=== PATIENT | male | born 1940 | race Caucasian/White ===

== ENCOUNTER 2017-09-13 19:03 | Inpatient (IN) | payer OTHER, MEDICARE, SELFPAY ==
[2017-09-13] VITALS (8 sets, daily range): BP systolic 134–173; BP diastolic 77–131; PULSE 76–98; RESP 16–30; TEMP 36.4–36.5; O2SAT 94–100; BMI 16.0; BMI 15.7
--- NOTE | 2017-09-13 19:11 | EKG12_ITS ---
Test Reason : Blood Pressure : / mmHG Vent. Rate : 092 BPM Atrial Rate : 076 BPM P-R Int : 000 ms QRS Dur : 084 ms QT Int : 420 ms P-R-T Axes : 000 -27 -60 degrees QTc Int : 519 ms Atrial fibrillation Low voltage QRS Nonspecific ST and T wave abnormality Prolonged QT Abnormal ECG Reconfirmed by EDER MARQUEZ, MAURA ([id number]), map editor NICKY JOLLEY ([id number]) on 09/18/2017 2:16:21 PM Referred By: Confirmed By:MAURA GAINES MD
--- NOTE | 2017-09-13 19:22 | CT_ITS ---
STUDY: CT ABDOMEN AND PELVIS WITH CONTRAST REASON FOR EXAM: Male, 77 years old. Epigastric pain RADIATION DOSAGE (If Supplied By Facility): CTDIvol = ( 21.52 ) mGy, DLP = ( 386.88 ) mGycm TECHNIQUE: Transaxial images were obtained from the dome of the diaphragm to the symphysis pubis without oral contrast. 75ML ml of Isovue 300 contrast was administered. Sagittal and coronal images were reconstructed. Individualized dose optimization techniques were used for this CT. COMPARISON: None FINDINGS: Emphysematous changes in the lung bases without acute findings. Small amount of scarring in the left lung base. The visualized portions of the heart are within normal limits. There is decreased attenuation of the liver consistent with steatosis. Normal gallbladder and extrahepatic biliary system. There is moderate splenomegaly. Somewhat heterogeneous enhancement pattern of the spleen however, likely due to arterial phase exam. Normal pancreas. Normal bilateral adrenal glands. Normal right kidney. Normal left kidney. There is a small hiatal hernia. Scattered fluid-filled loops of small bowel with scattered air-fluid levels. No abnormal dilation. There are multiple colonic diverticula consistent with diverticulosis. The appendix is visualized and appears normal. There is diffuse atherosclerotic calcification of the abdominal aorta, without a demonstrated aneurysm. Normal inferior vena cava. Normal retroperitoneum. Normal urinary bladder. There is enlargement of the prostate gland. Normal abdominal wall. There are diffuse degenerative changes of the visualized lumbar spine. CT/Abdomen/Pelvis W IV Cont ONLY IMPRESSION: 1. Nonspecific bowel gas pattern with scattered fluid filled loops of small bowel with scattered air-fluid levels however, no dilation. Gaseous distended loops of colon with fecal retention. Normal appendix. Findings could be related to enteritis/early ileus. 2. Mild to moderate splenomegaly. Electronically Signed: Papi Gleason DO at 21:09 EDT Tel , Service support ,
[2017-09-13 19:33] LABS: International Normalized Ratio 1.3; Prothrombin Time (Protime)PT. 16.6 SECONDS (11.7-14.9)
[2017-09-13 19:35] LABS: Hematocrit 44.1 % (40-54); Hemoglobin 12.9 g/dl (13.0-16.5); Mean Corp Hgb Conc 29.3 g/gl (32-36); Mean Corpuscular Hgb 17.5 pg (27.0-32.0); Mean Corpuscular Volume 59.8 fL (80-94); Mean Platelet Vol. 9.1 fl (6.2-12.0); RBC Distribution Width SD 41.4 fl (35.1-43.9)
[2017-09-13 19:42] LABS: AST(SGOT) 18 U/L (15-37); Alanine Aminotransfer ALT/SGPT 20 U/L (16-61); Albumin, Serum 3.4 g/dL (3.2-5.0); Alkaline Phosphatase 130 U/L (45-117); Anion Gap 11 (5-15); BUN 36 mg/dL (7-18); BUN/Creat Ratio 23.1 RATIO (10-20); Bilirubin, Direct 0.16 mg/dL (0.00-0.30); Calcium,Total 9.7 mg/dL (8.5-10.1); Chloride 102 mmol/L (98-107); Creatinine, Serum 1.56 mg/dL (0.70-1.30); EST Glomerular Filtration Rate 46 mL/min (>60); Est Glom Filt Rate - Afr Amer 56 mL/min (>60); Estimated Creatinine Clearance 29.26 ml/min; Globulin 3.8 g/dL (2.2-4.2); Glucose 200 mg/dL (74-106); Lipase 360 U/L (73-393); Potassium 3.3 mmol/L (3.5-5.1); Protein, Total 7.2 g/dL (6.4-8.2); Sodium Level 139 mmol/L (136-145)
[2017-09-13] MEDS: Ondansetron 4 MG/2 ML Vial IV (19:48)
[2017-09-13] MEDS: morphine 8 MG/ML Syringe 6 MG IV (19:49)
[2017-09-13 20:03] LABS: Eosinophil 1 % (0-5); Lymphocyte 10 % (19-41); Monocyte 2 % (0-10); Neutrophil-Band 1 % (0-5); Neutrophil-Segmented 86 % (47-70); Total Cells Counted 100 (MANUAL DIFF)
[2017-09-13 20:04] LABS: Red Blood Count 7.37 M/mm3 (4.6-6.2)
[2017-09-13 20:05] LABS: Differential Indicated MANUAL DIFF; POSITIVE COUNT YES; POSITIVE DIFFERENTIAL YES; POSITIVE MORPHOLOGY YES
[2017-09-13 20:09] LABS: Absolute Lymphocyte Count 3.63 X10^3/ul (0.83-4.51); Absolute Neutrophil Count 31.6 X10^3/uL (2.0-7.7); Anisocytosis 1+; Platelet Estimate MKD INC (ADEQ)
[2017-09-13 20:10] LABS: Microcytosis 1+
[2017-09-13 20:13] LABS: Platelet Count 1938 K/mm3 (150-450); White Blood Count 36.3 K/mm3 (4.4-11.0)
--- NOTE | 2017-09-13 20:22 | RAD_ITS ---
XR Chest 1 View INDICATION: CHEST PAIN, ABD PAIN ALSO COMPARISON: CT November 15, 2016 TECHNIQUE: Portable chest FINDINGS: The heart size and pulmonary vascularity are within normal limits. The lungs are hyperinflated with coarsened interstitial markings. Reactive cysts are seen in the bilateral perihilar regions and lower lobes. There is evidence of a focal airspace opacity in the right mid lung field. No evidence of pleural effusion. RAD/Chest 1 View (Portable) IMPRESSION: COPD/emphysema with bronchiectasis. Findings concerning for developing infiltrate or mass in the right midlung field. Consider short-term follow-up or further evaluation with CT. at 2159 Reported and signed by: Cinthya Beck MD Electronically Signed: Cinthya Beck MD at 21:53 EDT Tel , Service support ,
--- NOTE | 2017-09-13 22:26 | PCM.HP.STD ---
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 The patient is a 77 year old M who was in his normal state of health up until today when he had intense epigastric abdominal pain is spread across the upper portions of his abdomen. Patient had some nausea but no vomiting. Patient states that this similar to when he had an issue with peptic ulcers 50 years ago. At that time, patient had hematemesis and bleeding. Patient did require an aggressive abdominal surgery. In the emergency room, he had a CAT scan that showed nonspecific bowel gas pattern with scattered fluid-filled loops of small bowel with scattered air-fluid levels. No dilation. Could be related with enteritis/early ileus. Also noted mild to moderate splenomegaly. In the emergency room, patient received aspirin, morphine and Zofran. He is still having of the abdominal pain. 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) Allergies No Known Allergies Allergy (Verified 09/13/17 19:09) Home Medications: Ambulatory Orders Medication Instructions Recorded Albuterol Inhaler [Ventolin Hfa] 1 - 2 puff INHALATION Q4H PRN PRN 01/02/14 Tiotropium [place] [Spiriva 18 MCG] 1 puff INHALATION DAILY 01/02/14 Albuterol Aerosols [Ventolin 2.5 mg INHALATION Q2H PRN PRN #1 11/17/16 Aerosols] box Ipratropium/Albuterol Sulfate 3 ml INHALATION [id number] #1 box 11/17/16 [Duoneb] Nebulizer [Lc Plus] 1 ea MC UD #1 ea 11/17/16 tiotropium 2.5 mcg-olodaterol 2.5 2 inh INHALATION QDAY #4 g 08/14/17 mcg/actuation mist for inhalation Doxycycline 100 mg PO DAILY 09/13/17 Surgical History: - - dysplasia of tongue, ulcer surgery with some removal of stomach? vocal cord lesion. Psychiatric History: No pertinent psych hx Smoking Status: Former smoker Alcohol: None Drugs: None - *Family History Maternal History Items: No pertinent history, - - No cancer Paternal History Items: No pertinent history Review of Systems Constitutional: Reports: Anorexia. Denies: Chills, Fever Eyes: Denies: Blurred vision, Double vision HEENT: Denies: Head Aches, Sinus Congestion, Sinus Drainage Cardiovascular: Denies: Chest Pain, Palpitations Respiratory: Denies: Cough, Shortness of breath at rest, Sputum production Gastrointestinal: Reports: Abdominal Pain, Nausea. Denies: Diarrhea, Vomiting Genitourinary: Denies: Dysuria Musculoskeletal: Denies: Joint Pain, Joint Tenderness Skin: Denies: Rash, Wounds Neurological: Denies: Numbness, Tingling, Focal weakness Psychiatric: Denies: Anxiety, Depression Hematologic/ Lymphatic: Denies: Easy Bruising, Easy Bleeding, Hx of blood clot VTE Information - Inpt Only VTE Present on Admission: No VTE Pharm Prophylaxis ordered?: Yes Patient Problems: Active and Suspected Problems (Last Reviewed 05/03/17 @ 09:16 by Carmen Graham) Enteritis (Acute) Ileus (Acute) Leukocytosis (Acute) JULIANA (acute kidney injury) (Acute) - Physical Exam General: Alert, Cooperative, No apparent distress, - - Cachectic. HEENT: Atraumatic, Normocephalic Oral: Moist Mucosa, No Gingival or Mucosal Lesions/ Ulcerations Neck: No Nodes, Thyroid Normal Size and Texture Lungs: Clear to auscultation, Normal air movement, No rhonchi, No wheeze Cardiovascular: Regular rate, Regular Rhythm, Normal S1, Normal S2 Abdomen: Bowel Sounds Present, Soft, Non-Distended, Tender - Epi gastric Extremities: No edema, No Calf Tenderness Skin: No rashes, No breakdown Musculoskeletal: No Tenderness to Palpation of Joints or Extremities, Cachexia, Muscle Wasting Neurological: Deep Tendon Reflexes 2+/4 and Symmetrical, Sensory exam intact to light touch and pain, - - No clonus Psych/Mental Status: Normal Affect, Appropriate Vital Signs Temp Pulse Resp BP Pulse Ox 36.4 C L 94 18 146/82 H 96 09/13/17 19:05 09/13/17 22:18 09/13/17 22:18 09/13/17 22:18 09/13/17 22:18 Oxygen Flow Rate (L/min) 2 Oxygen Delivery Method Nasal Cannula Weight: 52.163 kg Body Mass Index (BMI) 16.0 Laboratory Tests Past 24 Hrs 09/13/17 09/13/17 09/13/17 19:15 19:15 19:15 WBC 36.3 H* RBC 7.37 H Hgb 12.9 L Hct 44.1 MCV 59.8 L MCH 17.5 L MCHC 29.3 L RDW 21.0 H RDW Differential 41.4 Plt Count 1938 H* MPV 9.1 Neut % (Auto) Not Reportable Absolute Neuts (auto) 31.6 H Absolute Lymphs (auto) 3.63 Total Counted 100 Neutrophils % (Manual) 86 H Band Neutrophils % 1 Lymphocytes % (Manual) 10 L Monocytes % (Manual) 2 Eosinophils % (Manual) 1 Diff Path Review May foll Platelet Estimate MKD INC Anisocytosis 1+ Microcytosis 1+ PT 16.6 H INR 1.3 Sodium Potassium Chloride Carbon Dioxide Anion Gap BUN Creatinine Estim Creat Clear Calc Est GFR (MDRD) Af Amer Est GFR (MDRD) Non-Af BUN/Creatinine Ratio Glucose Calcium Total Bilirubin 0.60 Direct Bilirubin 0.16 AST 18 ALT 20 Alkaline Phosphatase 130 H Troponin I Total Protein 7.2 Albumin 3.4 Globulin 3.8 Lipase 09/13/17 19:15 WBC RBC Hgb Hct MCV MCH MCHC RDW RDW Differential Plt Count MPV Neut % (Auto) Absolute Neuts (auto) Absolute Lymphs (auto) Total Counted Neutrophils % (Manual) Band Neutrophils % Lymphocytes % (Manual) Monocytes % (Manual) Eosinophils % (Manual) Diff Path Review Platelet Estimate Anisocytosis Microcytosis PT INR Sodium 139 Potassium 3.3 L Chloride 102 Carbon Dioxide 26.0 Anion Gap 11 BUN 36 H Creatinine 1.56 H Estim Creat Clear Calc 29.26 Est GFR (MDRD) Af Amer 56 L Est GFR (MDRD) Non-Af 46 L BUN/Creatinine Ratio 23.1 H Glucose 200 H Calcium 9.7 Total Bilirubin Direct Bilirubin AST ALT Alkaline Phosphatase Troponin I < 0.015 Total Protein Albumin Globulin Lipase 360 Clinical Impression(s) from Imaging Studies Abdomen/Pelvis CT 09/13/17 19:22 IMPRESSION: 1. Nonspecific bowel gas pattern with scattered fluid filled loops of small bowel with scattered air-fluid levels however, no dilation. Gaseous distended loops of colon with fecal retention. Normal appendix. Findings could be related to enteritis/early ileus. 2. Mild to moderate splenomegaly. Electronically Signed: Papi Gleason DO at 21:09 EDT Tel , Service support , Chest X-Ray 09/13/17 20:22 IMPRESSION: COPD/emphysema with bronchiectasis. Findings concerning for developing infiltrate or mass in the right midlung field. Consider short-term follow-up or further evaluation with CT. at 2155 Reported and signed by: Cinthya Beck MD Electronically Signed: Cinthya Beck MD at 21:53 EDT Tel , Service support , Assessment/Plan Active and Suspected Problems (Last Reviewed 05/03/17 @ 09:16 by Carmen Graham) Enteritis (Acute) Ileus (Acute) Leukocytosis (Acute) JULIANA (acute kidney injury) (Acute) 1. Acute enteritis This is suspected given the findings on the CAT scan. A possible this could be just related with an ileus, versus small bowel obstruction, versus mesenteric ischemia. Will put the patient on empiric antibiotics with ciprofloxacin and Flagyl. Follow-up abdominal x-ray in the morning Patient be n.p.o. with exception of sips and chips for now. No acute surgical needs at this time I will check a lactic acid to see if there is any evidence of ischemic colitis causing the symptoms. Patient states that his symptoms are similar to 50 years ago when he had an ulcer. Given the findings on the CAT scan I do not suspect that his has recurrence of his ulcers causing these findings. 2. Leukocytosis May be reactive However, it was elevated in 2017 at 16,000 and is now 36,000. Additionally patient has thrombocytosis and also noted splenomegaly. Continue to follow-up his counts Lesser acute issues then patient should likely follow up with hematology as outpatient Other considerations could be an acute leukemia or chronic leukemia for that matter. 3. Acute kidney injury May be prerenal. Creatinine today is 1.56. Creatinine from 2017 was 1.02 IV fluids and reevaluate 4. COPD Not an exacerbation Continue with home medications 5. DVT prophylaxis with Lovenox 6. Advanced care planning: Patient wishes to be full code and is okay with having endotracheal intubation and PEG tube if necessary. Code Visit Inpatient E&M: 31458 Init Hosp L3
[2017-09-13] MEDS: Morphine 4 MG/ML Syringe IV (22:35)
[2017-09-13] MEDS: 0.9% Normal Saline 1,000 ML 999 ML IV (22:35)
--- NOTE | 2017-09-13 22:35 | HP.PCM_ITS ---
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 The patient is a 77 year old M who was in his normal state of health up until today when he had intense epigastric abdominal pain is spread across the upper portions of his abdomen. Patient had some nausea but no vomiting. Patient states that this similar to when he had an issue with peptic ulcers 50 years ago. At that time, patient had hematemesis and bleeding. Patient did require an aggressive abdominal surgery. In the emergency room, he had a CAT scan that showed nonspecific bowel gas pattern with scattered fluid-filled loops of small bowel with scattered air-fluid levels. No dilation. Could be related with enteritis/early ileus. Also noted mild to moderate splenomegaly. In the emergency room, patient received aspirin, morphine and Zofran. He is still having of the abdominal pain. 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) Allergies No Known Allergies Allergy (Verified 09/13/17 19:09) Home Medications: Ambulatory Orders Medication Instructions Recorded Albuterol Inhaler [Ventolin Hfa] 1 - 2 puff INHALATION Q4H PRN PRN 01/02/14 Tiotropium [place] [Spiriva 18 MCG] 1 puff INHALATION DAILY 01/02/14 Albuterol Aerosols [Ventolin 2.5 mg INHALATION Q2H PRN PRN #1 11/17/16 Aerosols] box Ipratropium/Albuterol Sulfate 3 ml INHALATION [id number] #1 box 11/17/16 [Duoneb] Nebulizer [Lc Plus] 1 ea MC UD #1 ea 11/17/16 tiotropium 2.5 mcg-olodaterol 2.5 2 inh INHALATION QDAY #4 g 08/14/17 mcg/actuation mist for inhalation Doxycycline 100 mg PO DAILY 09/13/17 Surgical History: - - dysplasia of tongue, ulcer surgery with some removal of stomach? vocal cord lesion. Psychiatric History: No pertinent psych hx Smoking Status: Former smoker Alcohol: None Drugs: None - *Family History Maternal History Items: No pertinent history, - - No cancer Paternal History Items: No pertinent history Review of Systems Constitutional: Reports: Anorexia. Denies: Chills, Fever Eyes: Denies: Blurred vision, Double vision HEENT: Denies: Head Aches, Sinus Congestion, Sinus Drainage Cardiovascular: Denies: Chest Pain, Palpitations Respiratory: Denies: Cough, Shortness of breath at rest, Sputum production Gastrointestinal: Reports: Abdominal Pain, Nausea. Denies: Diarrhea, Vomiting Genitourinary: Denies: Dysuria Musculoskeletal: Denies: Joint Pain, Joint Tenderness Skin: Denies: Rash, Wounds Neurological: Denies: Numbness, Tingling, Focal weakness Psychiatric: Denies: Anxiety, Depression Hematologic/ Lymphatic: Denies: Easy Bruising, Easy Bleeding, Hx of blood clot VTE Information - Inpt Only VTE Present on Admission: No VTE Pharm Prophylaxis ordered?: Yes Patient Problems: Active and Suspected Problems (Last Reviewed 05/03/17 @ 09:16 by Carmen Graham ) Enteritis (Acute) Ileus (Acute) Leukocytosis (Acute) JULIANA (acute kidney injury) (Acute) - Physical Exam General: Alert, Cooperative, No apparent distress, - - Cachectic. HEENT: Atraumatic, Normocephalic Oral: Moist Mucosa, No Gingival or Mucosal Lesions/ Ulcerations Neck: No Nodes, Thyroid Normal Size and Texture Lungs: Clear to auscultation, Normal air movement, No rhonchi, No wheeze Cardiovascular: Regular rate, Regular Rhythm, Normal S1, Normal S2 Abdomen: Bowel Sounds Present, Soft, Non-Distended, Tender - Epi gastric Extremities: No edema, No Calf Tenderness Skin: No rashes, No breakdown Musculoskeletal: No Tenderness to Palpation of Joints or Extremities, Cachexia, Muscle Wasting Neurological: Deep Tendon Reflexes 2+/4 and Symmetrical, Sensory exam intact to light touch and pain, - - No clonus Psych/Mental Status: Normal Affect, Appropriate Vital Signs Temp Pulse Resp BP Pulse Ox 36.4 C L 94 18 146/82 H 96 09/13/17 19:05 09/13/17 22:18 09/13/17 22:18 09/13/17 22:18 09/13/17 22:18 Oxygen Flow Rate (L/min) 2 Oxygen Delivery Method Nasal Cannula Weight: 52.163 kg Body Mass Index (BMI) 16.0 Laboratory Tests Past 24 Hrs 09/13/17 09/13/17 09/13/17 19:15 19:15 19:15 WBC 36.3 H* RBC 7.37 H Hgb 12.9 L Hct 44.1 MCV 59.8 L MCH 17.5 L MCHC 29.3 L RDW 21.0 H RDW Differential 41.4 Plt Count 1938 H* MPV 9.1 Neut % (Auto) Not Reportable Absolute Neuts (auto) 31.6 H Absolute Lymphs (auto) 3.63 Total Counted 100 Neutrophils % (Manual) 86 H Band Neutrophils % 1 Lymphocytes % (Manual) 10 L Monocytes % (Manual) 2 Eosinophils % (Manual) 1 Diff Path Review May foll Platelet Estimate MKD INC Anisocytosis 1+ Microcytosis 1+ PT 16.6 H INR 1.3 Sodium Potassium Chloride Carbon Dioxide Anion Gap BUN Creatinine Estim Creat Clear Calc Est GFR (MDRD) Af Amer Est GFR (MDRD) Non-Af BUN/Creatinine Ratio Glucose Calcium Total Bilirubin 0.60 Direct Bilirubin 0.16 AST 18 ALT 20 Alkaline Phosphatase 130 H Troponin I Total Protein 7.2 Albumin 3.4 Globulin 3.8 Lipase 09/13/17 19:15 WBC RBC Hgb Hct MCV MCH MCHC RDW RDW Differential Plt Count MPV Neut % (Auto) Absolute Neuts (auto) Absolute Lymphs (auto) Total Counted Neutrophils % (Manual) Band Neutrophils % Lymphocytes % (Manual) Monocytes % (Manual) Eosinophils % (Manual) Diff Path Review Platelet Estimate Anisocytosis Microcytosis PT INR Sodium 139 Potassium 3.3 L Chloride 102 Carbon Dioxide 26.0 Anion Gap 11 BUN 36 H Creatinine 1.56 H Estim Creat Clear Calc 29.26 Est GFR (MDRD) Af Amer 56 L Est GFR (MDRD) Non-Af 46 L BUN/Creatinine Ratio 23.1 H Glucose 200 H Calcium 9.7 Total Bilirubin Direct Bilirubin AST ALT Alkaline Phosphatase Troponin I < 0.015 Total Protein Albumin Globulin Lipase 360 Clinical Impression(s) from Imaging Studies Abdomen/Pelvis CT 09/13/17 19:22 IMPRESSION: 1. Nonspecific bowel gas pattern with scattered fluid filled loops of small bowel with scattered air-fluid levels however, no dilation. Gaseous distended loops of colon with fecal retention. Normal appendix. Findings could be related to enteritis/early ileus. 2. Mild to moderate splenomegaly. Electronically Signed: Papi Gleason DO at 21:09 EDT Tel , Service support , Chest X-Ray 09/13/17 20:22 IMPRESSION: COPD/emphysema with bronchiectasis. Findings concerning for developing infiltrate or mass in the right midlung field. Consider short-term follow-up or further evaluation with CT. at 2155 Reported and signed by: Cinthya Beck MD Electronically Signed: Cinthya Beck MD at 21:53 EDT Tel , Service support , Assessment/Plan Active and Suspected Problems (Last Reviewed 05/03/17 @ 09:16 by Carmen Graham ) Enteritis (Acute) Ileus (Acute) Leukocytosis (Acute) JULIANA (acute kidney injury) (Acute) 1. Acute enteritis * This is suspected given the findings on the CAT scan. * A possible this could be just related with an ileus, versus small bowel obstruction, versus mesenteric ischemia. * Will put the patient on empiric antibiotics with ciprofloxacin and Flagyl. * Follow-up abdominal x-ray in the morning * Patient be n.p.o. with exception of sips and chips for now. * No acute surgical needs at this time * I will check a lactic acid to see if there is any evidence of ischemic colitis causing the symptoms. * Patient states that his symptoms are similar to 50 years ago when he had an ulcer. Given the findings on the CAT scan I do not suspect that his has recurrence of his ulcers causing these findings. 2. Leukocytosis * May be reactive * However, it was elevated in 2017 at 16,000 and is now 36,000. Additionally patient has thrombocytosis and also noted splenomegaly. * Continue to follow-up his counts * Lesser acute issues then patient should likely follow up with hematology as outpatient * Other considerations could be an acute leukemia or chronic leukemia for that matter. 3. Acute kidney injury * May be prerenal. Creatinine today is 1.56. Creatinine from 2017 was 1.02 * IV fluids and reevaluate 4. COPD * Not an exacerbation * Continue with home medications 5. DVT prophylaxis with Lovenox 6. Advanced care planning: Patient wishes to be full code and is okay with having endotracheal intubation and PEG tube if necessary. Code Visit Inpatient E&M: 12029 Init Hosp L3
--- NOTE | 2017-09-13 22:52 | ED.VISSUMM ---
- ER Visit Summary Date of Service: 09/13/17 Chief Complaint: Epigastric abdominal pain. History of Present Illness: The patient is a 77 M complaining of epigastric abdominal pain. Patient states that that was gradual in onset with associated nausea vomiting. Denies any fever. Does not recall chest pain. Since in the epigastric region. Does not radiate to his back. No melena. Today. No prior history. Physical Examination: Older male complaining of pain vital signs are stable afebrile. Pulse ox are percent on 2 L no hypoxia. Initial blood pressure is elevated at 170/131. I think it is secondary to pain and may be untreated hypertension. H EENT exam unremarkable. Neck nontender no lymphadenopathy. Lungs clear to auscultation bilaterally. Heart irregularly irregular rate in 90s no murmur. Abdomen is soft nondistended normal bowel sounds without peritoneal signs. He does have epigastric tenderness. I do not feel any rebound, guarding or rigidity. I do not feel any pulsatile mass. He is equal symmetrical femoral pulses. There are no hernias or signs of obstruction. He is moving all 4 extremities. Cellulitis and neurovascular intact. Without edema. Back exam nontender. Neurologically is awake and alert without focal motor deficits. Test Results: EKG shows A. fib rate of 92. Chest x-ray shows no acute abnormality. White count is elevated at 36,000 previously he had elevated white counts between 16 and 21,000. H&H 12 and 34. Is severely elevated platelets. His electrolytes are unremarkable other than potassium 3.3. His creatinine is elevated 1.56. Liver enzymes are unremarkable except for alk phos of 130. Lipase is normal. Troponins normal. Patient did undergo a CT of the abdomen pelvis with IV contrast which showed splenomegaly. Nonspecific bowel gas pattern and a normal appendix. There is no perforation. No abdominal aneurysm or bleeding. Emergency Department Course and Treatment: Patient is doing much better is been treated with morphine and Zofran on multiple repeat exam he looks better. I discussed all test results with both he and his . Treatment Plan: Patient will be admitted by the hospitalist for further evaluation and workup of his leukocytosis, abdominal pain and a atrial fibrillation. Disposition: Admission Impression: Acute abdominal pain of uncertain etiology. Leukocytosis of uncertain etiology and elevated platelet count. Mild renal insufficiency This note was generated with [employer] software. It may contain incorrect words, spelling, and punctuation that were not noted in review of the chart prior to signing ED Disposition - Plan for ED Patient: Chief Complaint: Abd Pain
[2017-09-14] VITALS (18 sets, daily range): BP systolic 92–118; BP diastolic 50–70; PULSE 81–94; RESP 16–28; TEMP 36.1–36.6; O2SAT 89–97
[2017-09-14 00:11] LABS: Lactic Acid 0.7 mmol/L (0.4-2.0)
[2017-09-14] MEDS: Ipratropium/Albuterol Sulfate 3 ML AMPUL.NEB INHALATION ×3 (01:04→12:46)
[2017-09-14] MEDS: Ciprofloxacin 200 MG/100 ML BAG 100 MG IV ×3 (01:27→22:32)
--- NOTE | 2017-09-14 05:55 | RAD_ITS ---
STUDY: X-RAY - ABDOMEN/PELVIS REASON FOR EXAM: Male, 77 years old. Pain TECHNIQUE: AP supine and upright views of the abdomen and pelvis. Decubitus views also obtained. COMPARISON: CT 09/13/2017 FINDINGS: Normal visualized lung bases. Upper abdominal clips. There is an unremarkable bowel gas pattern. There is no demonstrated free abdominal air. Residual contrast in the bladder. The visualized liver, spleen and kidneys are grossly normal in size and morphology. Normal soft tissue structures. Normal visualized osseous structures. RAD/Abd Decub and/or Erect(Portabl IMPRESSION: Normal bowel gas pattern. No free air is detected. Electronically Signed: Dawit Mason MD at 5:54 EDT Tel , Service support ,
[2017-09-14 06:13] LABS: Absolute Lymphocyte Count 1.29 X10^3/ul (0.83-4.51); Absolute Neutrophil Count 15.7 X10^3/uL (2.0-7.7); Basophil# 0.63 X10^3/uL; Basophil% 3.3 % (0-1); Eosinophil# 0.34 X10^3/uL; Eosinophils% 1.8 % (0-5); Hemoglobin 10.5 g/dl (13.0-16.5); Lymphocyte # 1.29 X10^3/ul (4.0); Lymphocyte % 6.8 % (19-41); Mean Corp Hgb Conc 28.4 g/gl (32-36); Mean Corpuscular Hgb 17.3 pg (27.0-32.0); Monocyte# 0.94 X10^3/uL; Monocyte% 4.9 % (0-10); Neutrophil # 15.66 X10^3/uL (2.7-7.7); Neutrophil % 81.9 % (47-70); RBC Distribution Width CV 20.4 % (11.6-14.6); RBC Distribution Width SD 42.5 fl (35.1-43.9); Red Blood Count 6.07 M/mm3 (4.6-6.2); White Blood Count 19.1 K/mm3 (4.4-11.0)
[2017-09-14 06:14] LABS: Anion Gap 9 (5-15); BUN 29 mg/dL (7-18); BUN/Creat Ratio 26.9 RATIO (10-20); Calcium,Total 8.1 mg/dL (8.5-10.1); Chloride 109 mmol/L (98-107); Creatinine, Serum 1.08 mg/dL (0.70-1.30); EST Glomerular Filtration Rate 70 mL/min (>60); Est Glom Filt Rate - Afr Amer 85 mL/min (>60); Glucose 86 mg/dL (74-106); Magnesium 2.1 mg/dL (1.6-2.6); Potassium 3.6 mmol/L (3.5-5.1); Sodium Level 143 mmol/L (136-145)
[2017-09-14 06:42] LABS: Differential Indicated SCAN CRITERIA MET; POSITIVE COUNT YES; POSITIVE DIFFERENTIAL YES; POSITIVE MORPHOLOGY YES; Platelet Count 1164 K/mm3 (150-450)
[2017-09-14 06:43] LABS: Anisocytosis 1+; Differential Comment SCAN; Hypochromasia 1+; Microcytosis 1+; Platelet Estimate MKD INC (ADEQ); Platelet Morphology GIANT; Polychromasia 1+
[2017-09-14 11:27] LABS: Ferritin 15 ng/mL (26-388); Iron 14 ug/dL (65-175); Iron Binding Capacity,Total 269 ug/dL (250-450); PERCENT IRON SATURATION 5.2 % (15.0-55.0)
[2017-09-14] MEDS: Enoxaparin 30 MG/0.3 ML Syringe SC (11:46)
--- NOTE | 2017-09-14 11:58 | CASEMGMT ---
RN MARCELINO Face to Face with patient for initial transition planning/care coordination assessment. RN CM introduced self and role at [facility]. Patient lying in bed, alert and oriented. Patient willing to participate in assessment and is able to answer all questions appropriately. Care providers, pharmacy, and demographics verified. See link attached. Patient wishes to discharge home, denies need for home health at this time. Patient states he has no further needs or concerns at this time. CM to follow for discharge planning needs that may arise. Disposition Plan: Patient to discharge home with family support and follow-up plans in place.
[2017-09-14 12:15] LABS: Pathologist Review Reviewed
[2017-09-14 12:16] LABS: Pathologist Review Reviewed
--- NOTE | 2017-09-14 12:59 | PCM.PROGNOTE ---
<Manuel Damon - Last Filed: 09/14/17 12:59> Patient Problems: Active and Suspected Problems (Last Reviewed 05/03/17 @ 09:16 by Carmen Graham) Enteritis (Acute) Ileus (Acute) Leukocytosis (Acute) JULIANA (acute kidney injury) (Acute) Subjective: Pt feels significantly improved this AM. No BM yet, last BM was yesterday, somewhat loose. He has no further abdominal pain or nausea. He wants to eat. He has had flatus this AM. He has only had ice chips since admission. - Physical Exam General: Alert, Oriented x3, Cooperative HEENT: Atraumatic, PERRLA, EOMI, Normocephalic Neck: Supple, No JVD, Negative Carotid Bruits Lungs: Clear to auscultation, Normal air movement Cardiovascular: Regular rate, No murmurs Abdomen: Bowel Sounds Present, Soft, Non Tender Extremities: No edema, Capillary Refill Less than 3 Seconds Skin: No rashes, No breakdown Musculoskeletal: No Tenderness to Palpation of Joints or Extremities Neurological: Cranial nerves II-XII grossly intact Psych/Mental Status: Normal Affect, Appropriate, Alert and oriented to time, place, person, mood and affect Vital Signs Temp Pulse Resp BP Pulse Ox 97.5 F L 81 16 111/62 95 09/14/17 08:26 09/14/17 08:26 09/14/17 08:26 09/14/17 08:26 09/14/17 08:30 Oxygen Flow Rate (L/min) 2 Oxygen Delivery Method Nasal Cannula Weight: 51.1 kg Body Mass Index (BMI) 15.7 Intake and Output for Last 24 Hours 09/12/17 09/13/17 09/14/17 23:59 23:59 23:59 Intake Total 1580 / 1580 Balance 1580 / 1580 Laboratory Tests Past 24 Hrs 09/13/17 09/14/17 09/14/17 23:31 05:12 05:12 WBC 19.1 H RBC 6.07 Hgb 10.5 L Hct 37.0 L MCV 61.0 L MCH 17.3 L MCHC 28.4 L RDW 20.4 H RDW Differential 42.5 Plt Count 1164 H* MPV 9.0 Immature Gran % (Auto) 1.300 H Neut % (Auto) 81.9 H Lymph % (Auto) 6.8 L [place] % (Auto) 4.9 Eos % (Auto) 1.8 Baso % (Auto) 3.3 H Absolute Neuts (auto) 15.7 H Absolute Lymphs (auto) 1.29 Total Counted Not Reportable Differential Comment SCAN Diff Path Review Reviewed Platelet Estimate MKD INC Plt Morphology Comment GIANT Polychromasia 1+ Hypochromasia 1+ Anisocytosis 1+ Microcytosis 1+ Sodium 143 Potassium 3.6 Chloride 109 H Carbon Dioxide 25.0 Anion Gap 9 BUN 29 H Creatinine 1.08 Estim Creat Clear Calc 41.40 Est GFR (MDRD) Af Amer 85 Est GFR (MDRD) Non-Af 70 BUN/Creatinine Ratio 26.9 H Glucose 86 Lactic Acid 0.7 Calcium 8.1 L Magnesium 2.1 Iron TIBC Iron Saturation Ferritin 09/14/17 05:12 WBC RBC Hgb Hct MCV MCH MCHC RDW RDW Differential Plt Count MPV Immature Gran % (Auto) Neut % (Auto) Lymph % (Auto) [place] % (Auto) Eos % (Auto) Baso % (Auto) Absolute Neuts (auto) Absolute Lymphs (auto) Total Counted Differential Comment Diff Path Review Platelet Estimate Plt Morphology Comment Polychromasia Hypochromasia Anisocytosis Microcytosis Sodium Potassium Chloride Carbon Dioxide Anion Gap BUN Creatinine Estim Creat Clear Calc Est GFR (MDRD) Af Amer Est GFR (MDRD) Non-Af BUN/Creatinine Ratio Glucose Lactic Acid Calcium Magnesium Iron 14 L TIBC 269 Iron Saturation 5.2 L Ferritin 15 L Medical Necessity - Tobacco Use Smoking Status: Former smoker Assessment/Plan Active and Suspected Problems (Last Reviewed 05/03/17 @ 09:16 by Carmen Graham) Enteritis (Acute) Ileus (Acute) Leukocytosis (Acute) JULIANA (acute kidney injury) (Acute) 1. Acute enteritis vs ileus. Improved. Advance diet cautiously. Last BM yesterday, somewhat loose. Recently recovering from flu involving heavy nausea and vomiting last week. Suspect viral gastroenteritis. On cipro/flagyl. Abdominal xr negative today. CT abdomen at admission with scattered fluid filled loods, scattered air fluid levels with no dilatation, gaseous distended loops with fecal retention, enteritis vs ileus. Mild to mod. splenomegaly. 2. Leukocytosis 2/2 above - improved. Afebrile. 3. JULIANA - resolved. 4. COPD stable no exacerbation 5. Iron def. anemia - Low iron/tibc/ferritin. replete. IV venofer x 1 and start oral iron. 6. Thrombocytosis - improved. unclear etiology DVT ppx: lovenox DC planning: Home tomorrow if he continues to improve This patient was seen by Manuel Damon PA-C under the supervision of Doctor Sriram. <Sriram,[place] - Last Filed: 09/14/17 15:07> - Physical Exam Vital Signs Temp Pulse Resp BP Pulse Ox 97.7 F L 87 18 92/50 L 95 09/14/17 14:25 09/14/17 14:25 09/14/17 14:25 09/14/17 14:25 09/14/17 14:25 Oxygen Flow Rate (L/min) 2 Oxygen Delivery Method Nasal Cannula Weight: 51.1 kg Body Mass Index (BMI) 15.7 Intake and Output for Last 24 Hours 09/12/17 09/13/17 09/14/17 23:59 23:59 23:59 Intake Total 2811 / 2811 Balance 2811 / 2811 Laboratory Tests Past 24 Hrs 09/13/17 09/14/17 09/14/17 23:31 05:12 05:12 WBC 19.1 H RBC 6.07 Hgb 10.5 L Hct 37.0 L MCV 61.0 L MCH 17.3 L MCHC 28.4 L RDW 20.4 H RDW Differential 42.5 Plt Count 1164 H* MPV 9.0 Immature Gran % (Auto) 1.300 H Neut % (Auto) 81.9 H Lymph % (Auto) 6.8 L [place] % (Auto) 4.9 Eos % (Auto) 1.8 Baso % (Auto) 3.3 H Absolute Neuts (auto) 15.7 H Absolute Lymphs (auto) 1.29 Total Counted Not Reportable Differential Comment SCAN Diff Path Review Reviewed Platelet Estimate MKD INC Plt Morphology Comment GIANT Polychromasia 1+ Hypochromasia 1+ Anisocytosis 1+ Microcytosis 1+ Sodium 143 Potassium 3.6 Chloride 109 H Carbon Dioxide 25.0 Anion Gap 9 BUN 29 H Creatinine 1.08 Estim Creat Clear Calc 41.40 Est GFR (MDRD) Af Amer 85 Est GFR (MDRD) Non-Af 70 BUN/Creatinine Ratio 26.9 H Glucose 86 Lactic Acid 0.7 Calcium 8.1 L Magnesium 2.1 Iron TIBC Iron Saturation Ferritin 09/14/17 05:12 WBC RBC Hgb Hct MCV MCH MCHC RDW RDW Differential Plt Count MPV Immature Gran % (Auto) Neut % (Auto) Lymph % (Auto) [place] % (Auto) Eos % (Auto) Baso % (Auto) Absolute Neuts (auto) Absolute Lymphs (auto) Total Counted Differential Comment Diff Path Review Platelet Estimate Plt Morphology Comment Polychromasia Hypochromasia Anisocytosis Microcytosis Sodium Potassium Chloride Carbon Dioxide Anion Gap BUN Creatinine Estim Creat Clear Calc Est GFR (MDRD) Af Amer Est GFR (MDRD) Non-Af BUN/Creatinine Ratio Glucose Lactic Acid Calcium Magnesium Iron 14 L TIBC 269 Iron Saturation 5.2 L Ferritin 15 L Assessment/Plan Patient was seen and examined independently of physician recruitment and outreach assistant Manuel Damon. I agree with his above interval history, physical exam and assessment and plan as documented above. He feels much improved. no more abdominal pain. Denies diarrhea or nausea or vomiting. Vitals reviewed, stable. Labs reviewed-leukocytosis slightly better, still thrombocytosis, clinically looks improved. Suspect this thrombocytosis is secondary to iron deficiency anemia, agree with IV Venofer and oral iron. He would need to follow-up with hematology in the outpatient. Labs also show improvement in JULIANA. We will continue to monitor overnight, possibly discharge in a.m. if he continues to improve to follow-up with hematology his primary care doctor Code Visit Inpatient E&M: [id number] Subs Hosp L2
[2017-09-14] MEDS: 0.9% NaCl Peripheral Flush Adult/Peds IV ×2 (14:28→15:22)
[2017-09-14] MEDS: Ferrous Sulfate 325 MG Tablet PO (16:47)
--- NOTE | 2017-09-14 18:00 | RAD_ITS ---
STUDY: X-RAY CHEST REASON FOR EXAM: Male, 77 years old. Pills stuck TECHNIQUE: Frontal views COMPARISON: September 13, 2017 FINDINGS: The lungs are expanded. Interstitial prominence bilaterally. Granulomas. Normal size heart. Normal mediastinum. Calcifications are noted at the [place]. Normal visualized pulmonary arteries. Calcified aortic arch and descending thoracic aorta. Normal visualized thoracic spine. Normal visualized ribs, clavicles, and shoulders. No radiopaque foreign bodies identified. There is no demonstrated abnormality of the visualized soft tissue structures of the upper abdomen. RAD/Chest 1 View (Portable) IMPRESSION: Interstitial prominence in the lungs. Granulomatous nodules of the right upper lobe and granulomatous hilar calcifications. No radiopaque foreign body. Electronically Signed: Anish Kaur DO at 19:54 EDT Tel [phone], Service support ,
--- NOTE | 2017-09-14 18:05 | RAD_ITS ---
XR Abdomen 1 View INDICATION: patient took iron pill and feels that it is stuck in his throat, verifying if pill is stuck or has been successfully swallowed COMPARISON: Earlier Same day TECHNIQUE: Frontal view of the abdomen FINDINGS: Only few medications are radiopaque, therefore, the location of the patella cannot be identified on plain film. Surgical clips are again noted at the GE junction. This otherwise no radiopaque foreign body seen. The bowel gas pattern is nonobstructive. RAD/Abdomen Single View IMPRESSION: No radiopaque foreign body seen. Please note that medication may not be radiopaque. at 1911 Reported and signed by: Cinthya Beck MD Electronically Signed: Cinthya Beck MD at 19:10 EDT Tel , Service support ,
--- NOTE | 2017-09-14 18:16 | PCM.CONS.GEN ---
Problem List (1) Dysphagia Status: Acute Qualifiers: Dysphagia type: pharyngeal phase Qualified Code(s): R13.13 - Dysphagia, pharyngeal phase (2) Foreign body in esophagus Status: Acute Qualifiers: Encounter type: initial encounter Qualified Code(s): T18.108A - Unspecified foreign body in esophagus causing other injury, initial encounter Reason for Consult Date of Consultation: 09/14/17 Reason for Consultation: Impacted foreign body in esophagus History of Present Illness: The patient is a 77 year old M who has been admitted for enteritis since yesterday. He was given an iron pill today which got caught in his throat. He is unable to swallow or throw it up. He reports his discomfort is a 6 or 7 out of 10. 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 He says he gets intermittent vocal cord scopes and his last one was one month ago and was normal. The patient reports he has been choking on food and pills for the last few years. He reports that he is not eating as much as he should. 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) Allergies No Known Allergies Allergy (Verified 09/13/17 19:09) Home Medications: Ambulatory Orders Medication Instructions Recorded Albuterol Inhaler [Ventolin Hfa] 1 - 2 puff INHALATION Q4H PRN PRN 01/02/14 Tiotropium [place] [Spiriva 18 MCG] 1 puff INHALATION DAILY 01/02/14 Albuterol Aerosols [Ventolin 2.5 mg INHALATION Q2H PRN PRN #1 11/17/16 Aerosols] box Ipratropium/Albuterol Sulfate 3 ml INHALATION [id number] #1 box 11/17/16 [Duoneb] Nebulizer [Lc Plus] 1 ea MC UD #1 ea 11/17/16 tiotropium 2.5 mcg-olodaterol 2.5 2 inh INHALATION QDAY #4 g 08/14/17 mcg/actuation mist for inhalation Doxycycline 100 mg PO DAILY 05/17/18 Surgical History: - - dysplasia of tongue, ulcer surgery with some removal of stomach? vocal cord lesion. Psychiatric History: No pertinent psych hx Smoking Status: Former smoker Alcohol: None Drugs: None - *Family History Maternal History Items: No pertinent history, - - No cancer Paternal History Items: No pertinent history Review of Systems Constitutional: Reports: Anorexia. Denies: Fever HEENT: Reports: Difficulty Swallowing Cardiovascular: Denies: Chest Pain Respiratory: Reports: Cough Gastrointestinal: Reports: Nausea. Denies: Abdominal Pain, Vomiting Genitourinary: Denies: Dysuria Skin: Denies: Dryness Hematologic/ Lymphatic: Reports: - - Thrombocytosis Patient Problems: Active and Suspected Problems (Last Reviewed 05/03/17 @ 09:16 by Carmen Graham) Enteritis (Acute) Ileus (Acute) Leukocytosis (Acute) JULIANA (acute kidney injury) (Acute) Dysphagia (Acute) Foreign body in esophagus (Acute) - Physical Exam General: Alert, Oriented x3, Cooperative HEENT: Atraumatic Neck: Supple, Trachea Midline Lungs: Normal air movement Cardiovascular: Regular rate, Regular Rhythm Abdomen: Soft, Non Tender, Non-Distended Skin: No rashes Musculoskeletal: Cachexia, Muscle Wasting Neurological: Cranial nerves II-XII grossly intact Psych/Mental Status: Normal Affect Vital Signs Temp Pulse Resp BP Pulse Ox 98 F 94 20 H 108/69 97 09/14/17 16:37 09/14/17 16:37 09/14/17 16:37 09/14/17 16:37 09/14/17 16:37 Oxygen Flow Rate (L/min) 2 Oxygen Delivery Method Nasal Cannula Weight: 112 lb 10.499 oz Body Mass Index (BMI) 15.7 Intake and Output for Last 24 Hours 09/12/17 09/13/17 09/14/17 23:59 23:59 23:59 Intake Total 3566 / 3566 Balance 3566 / 3566 Laboratory Tests Past 24 Hrs 09/13/17 09/14/17 09/14/17 23:31 05:12 05:12 WBC 19.1 H RBC 6.07 Hgb 10.5 L Hct 37.0 L MCV 61.0 L MCH 17.3 L MCHC 28.4 L RDW 20.4 H RDW Differential 42.5 Plt Count 1164 H* MPV 9.0 Immature Gran % (Auto) 1.300 H Neut % (Auto) 81.9 H Lymph % (Auto) 6.8 L [place] % (Auto) 4.9 Eos % (Auto) 1.8 Baso % (Auto) 3.3 H Absolute Neuts (auto) 15.7 H Absolute Lymphs (auto) 1.29 Total Counted Not Reportable Differential Comment SCAN Diff Path Review Reviewed Platelet Estimate MKD INC Plt Morphology Comment GIANT Polychromasia 1+ Hypochromasia 1+ Anisocytosis 1+ Microcytosis 1+ Sodium 143 Potassium 3.6 Chloride 109 H Carbon Dioxide 25.0 Anion Gap 9 BUN 29 H Creatinine 1.08 Estim Creat Clear Calc 41.40 Est GFR (MDRD) Af Amer 85 Est GFR (MDRD) Non-Af 70 BUN/Creatinine Ratio 26.9 H Glucose 86 Lactic Acid 0.7 Calcium 8.1 L Magnesium 2.1 Iron TIBC Iron Saturation Ferritin 09/14/17 05:12 WBC RBC Hgb Hct MCV MCH MCHC RDW RDW Differential Plt Count MPV Immature Gran % (Auto) Neut % (Auto) Lymph % (Auto) [place] % (Auto) Eos % (Auto) Baso % (Auto) Absolute Neuts (auto) Absolute Lymphs (auto) Total Counted Differential Comment Diff Path Review Platelet Estimate Plt Morphology Comment Polychromasia Hypochromasia Anisocytosis Microcytosis Sodium Potassium Chloride Carbon Dioxide Anion Gap BUN Creatinine Estim Creat Clear Calc Est GFR (MDRD) Af Amer Est GFR (MDRD) Non-Af BUN/Creatinine Ratio Glucose Lactic Acid Calcium Magnesium Iron 14 L TIBC 269 Iron Saturation 5.2 L Ferritin 15 L Clinical Impression(s) from Imaging Studies Abdomen/Pelvis CT 09/13/17 19:22 IMPRESSION: 1. Nonspecific bowel gas pattern with scattered fluid filled loops of small bowel with scattered air-fluid levels however, no dilation. Gaseous distended loops of colon with fecal retention. Normal appendix. Findings could be related to enteritis/early ileus. 2. Mild to moderate splenomegaly. Electronically Signed: Papi Gleason DO at 21:09 EDT Tel , Service support , Chest X-Ray 09/13/17 20:22 IMPRESSION: COPD/emphysema with bronchiectasis. Findings concerning for developing infiltrate or mass in the right midlung field. Consider short-term follow-up or further evaluation with CT. at 1307 Reported and signed by: Cinthya Beck MD Electronically Signed: Cinthya Beck MD at 21:53 EDT Tel , Service support , Abdomen X-Ray 09/14/17 05:55 IMPRESSION: Normal bowel gas pattern. No free air is detected. Electronically Signed: Dawit Mason MD at 5:54 EDT Tel , Service support , Assessment/Plan Active and Suspected Problems (Last Reviewed 05/03/17 @ 09:16 by Carmen Graham) Enteritis (Acute) Ileus (Acute) Leukocytosis (Acute) JULIANA (acute kidney injury) (Acute) Dysphagia (Acute) Foreign body in esophagus (Acute) 77-year-old male with foreign body impaction 1. The patient believes he has a pill stuck in his throat. He does have a history of radiation to the area. 2. 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 The patient may need a swallow study and probably would benefit from a PEG tube in the future. 3. I did offer the patient EGD to remove the foreign body in the operating room. I went over the risks including but not limited to bleeding, perforation of the GI tract, aspiration of the foreign body, airway compromise. The patient understands the risks and is willing to proceed with surgery. Yang Becerril MD Pager: [facility] [address] [place] [address], [address] [place] [phone] Office:
--- NOTE | 2017-09-14 18:22 | CON.PCM_ITS ---
Problem List (1) Dysphagia Status: Acute Qualifiers: Dysphagia type: pharyngeal phase Qualified Code(s): R13.13 - Dysphagia, pharyngeal phase (2) Foreign body in esophagus Status: Acute Qualifiers: Encounter type: initial encounter Qualified Code(s): T18.108A - Unspecified foreign body in esophagus causing other injury, initial encounter Reason for Consult Date of Consultation: 09/14/17 Reason for Consultation: Impacted foreign body in esophagus History of Present Illness: The patient is a 77 year old M who has been admitted for enteritis since yesterday. He was given an iron pill today which got caught in his throat. He is unable to swallow or throw it up. He reports his discomfort is a 6 or 7 out of 10. 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 He says he gets intermittent vocal cord scopes and his last one was one month ago and was normal. The patient reports he has been choking on food and pills for the last few years. He reports that he is not eating as much as he should. 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) Allergies No Known Allergies Allergy (Verified 09/13/17 19:09) Home Medications: Ambulatory Orders Medication Instructions Recorded Albuterol Inhaler [Ventolin Hfa] 1 - 2 puff INHALATION Q4H PRN PRN 01/02/14 Tiotropium [place] [Spiriva 18 MCG] 1 puff INHALATION DAILY 01/02/14 Albuterol Aerosols [Ventolin 2.5 mg INHALATION Q2H PRN PRN #1 11/17/16 Aerosols] box Ipratropium/Albuterol Sulfate 3 ml INHALATION [id number] #1 box 11/17/16 [Duoneb] Nebulizer [Lc Plus] 1 ea MC UD #1 ea 11/17/16 tiotropium 2.5 mcg-olodaterol 2.5 2 inh INHALATION QDAY #4 g 08/14/17 mcg/actuation mist for inhalation Doxycycline 100 mg PO DAILY 05/17/18 Surgical History: - - dysplasia of tongue, ulcer surgery with some removal of stomach? vocal cord lesion. Psychiatric History: No pertinent psych hx Smoking Status: Former smoker Alcohol: None Drugs: None - *Family History Maternal History Items: No pertinent history, - - No cancer Paternal History Items: No pertinent history Review of Systems Constitutional: Reports: Anorexia. Denies: Fever HEENT: Reports: Difficulty Swallowing Cardiovascular: Denies: Chest Pain Respiratory: Reports: Cough Gastrointestinal: Reports: Nausea. Denies: Abdominal Pain, Vomiting Genitourinary: Denies: Dysuria Skin: Denies: Dryness Hematologic/ Lymphatic: Reports: - - Thrombocytosis Patient Problems: Active and Suspected Problems (Last Reviewed 05/03/17 @ 09:16 by Carmen Graham ) Enteritis (Acute) Ileus (Acute) Leukocytosis (Acute) JULIANA (acute kidney injury) (Acute) Dysphagia (Acute) Foreign body in esophagus (Acute) - Physical Exam General: Alert, Oriented x3, Cooperative HEENT: Atraumatic Neck: Supple, Trachea Midline Lungs: Normal air movement Cardiovascular: Regular rate, Regular Rhythm Abdomen: Soft, Non Tender, Non-Distended Skin: No rashes Musculoskeletal: Cachexia, Muscle Wasting Neurological: Cranial nerves II-XII grossly intact Psych/Mental Status: Normal Affect Vital Signs Temp Pulse Resp BP Pulse Ox 98 F 94 20 H 108/69 97 09/14/17 16:37 09/14/17 16:37 09/14/17 16:37 09/14/17 16:37 09/14/17 16:37 Oxygen Flow Rate (L/min) 2 Oxygen Delivery Method Nasal Cannula Weight: 112 lb 10.499 oz Body Mass Index (BMI) 15.7 Intake and Output for Last 24 Hours 09/12/17 09/13/17 09/14/17 23:59 23:59 23:59 Intake Total 3566 / 3566 Balance 3566 / 3566 Laboratory Tests Past 24 Hrs 09/13/17 09/14/17 09/14/17 23:31 05:12 05:12 WBC 19.1 H RBC 6.07 Hgb 10.5 L Hct 37.0 L MCV 61.0 L MCH 17.3 L MCHC 28.4 L RDW 20.4 H RDW Differential 42.5 Plt Count 1164 H* MPV 9.0 Immature Gran % (Auto) 1.300 H Neut % (Auto) 81.9 H Lymph % (Auto) 6.8 L [place] % (Auto) 4.9 Eos % (Auto) 1.8 Baso % (Auto) 3.3 H Absolute Neuts (auto) 15.7 H Absolute Lymphs (auto) 1.29 Total Counted Not Reportable Differential Comment SCAN Diff Path Review Reviewed Platelet Estimate MKD INC Plt Morphology Comment GIANT Polychromasia 1+ Hypochromasia 1+ Anisocytosis 1+ Microcytosis 1+ Sodium 143 Potassium 3.6 Chloride 109 H Carbon Dioxide 25.0 Anion Gap 9 BUN 29 H Creatinine 1.08 Estim Creat Clear Calc 41.40 Est GFR (MDRD) Af Amer 85 Est GFR (MDRD) Non-Af 70 BUN/Creatinine Ratio 26.9 H Glucose 86 Lactic Acid 0.7 Calcium 8.1 L Magnesium 2.1 Iron TIBC Iron Saturation Ferritin 09/14/17 05:12 WBC RBC Hgb Hct MCV MCH MCHC RDW RDW Differential Plt Count MPV Immature Gran % (Auto) Neut % (Auto) Lymph % (Auto) [place] % (Auto) Eos % (Auto) Baso % (Auto) Absolute Neuts (auto) Absolute Lymphs (auto) Total Counted Differential Comment Diff Path Review Platelet Estimate Plt Morphology Comment Polychromasia Hypochromasia Anisocytosis Microcytosis Sodium Potassium Chloride Carbon Dioxide Anion Gap BUN Creatinine Estim Creat Clear Calc Est GFR (MDRD) Af Amer Est GFR (MDRD) Non-Af BUN/Creatinine Ratio Glucose Lactic Acid Calcium Magnesium Iron 14 L TIBC 269 Iron Saturation 5.2 L Ferritin 15 L Clinical Impression(s) from Imaging Studies Abdomen/Pelvis CT 09/13/17 19:22 IMPRESSION: 1. Nonspecific bowel gas pattern with scattered fluid filled loops of small bowel with scattered air-fluid levels however, no dilation. Gaseous distended loops of colon with fecal retention. Normal appendix. Findings could be related to enteritis/early ileus. 2. Mild to moderate splenomegaly. Electronically Signed: Papi Gleason DO at 21:09 EDT Tel , Service support , Chest X-Ray 09/13/17 20:22 IMPRESSION: COPD/emphysema with bronchiectasis. Findings concerning for developing infiltrate or mass in the right midlung field. Consider short-term follow-up or further evaluation with CT. at 1361 Reported and signed by: Cinthya Beck MD Electronically Signed: Cinthya Beck MD at 21:53 EDT Tel , Service support , Abdomen X-Ray 09/14/17 05:55 IMPRESSION: Normal bowel gas pattern. No free air is detected. Electronically Signed: Dawit Mason MD at 5:54 EDT Tel , Service support , Assessment/Plan Active and Suspected Problems (Last Reviewed 05/03/17 @ 09:16 by Carmen Graham ) Enteritis (Acute) Ileus (Acute) Leukocytosis (Acute) JULIANA (acute kidney injury) (Acute) Dysphagia (Acute) Foreign body in esophagus (Acute) 77-year-old male with foreign body impaction 1. The patient believes he has a pill stuck in his throat. He does have a history of radiation to the area. 2. 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 The patient may need a swallow study and probably would benefit from a PEG tube in the future. 3. I did offer the patient EGD to remove the foreign body in the operating room. I went over the risks including but not limited to bleeding, perforation of the GI tract, aspiration of the foreign body, airway compromise. The patient understands the risks and is willing to proceed with surgery. Yang Becerril MD Pager: [facility] [address] [place] [address], [address] [place] [phone] Office:
--- NOTE | 2017-09-14 19:34 | NURSING ---
Patient was ordered to take PO ferrous sulfate. This RN notified patient of same. Patient stated that in the past he has had trouble swallowing large pills and applesauce would help. This RN obtained applesauce and gave patient pill in his hand to see if he thought it was too big. Patient stated that he would be able to swallow pill. Patient is alert and oriented. Patient used applesauce and placed pill on spoon and took pill. Immediately he looked at this RN with large eyes and placed hands on neck. This RN placed arms around patient preparing to perform Heimlich. However, patient began coughing and was able to breath and speak. This RN turned patients oxygen up to 2L and placed on patient via NC, then called adrrell Reza RN. Patient requested to sit up on side of bed and assisted with same. Dr. Bhatia was notified and Omar Deutsch came to assess patient. This RN stayed in room with patient for 45minutes. Patient was given coke and hot chocolate in an attempt to help dissolve medication. Patient was not able to swallow at first but then states that it moved down further and was able to drink fluids with no problem. Patient states that he had esophageal dilatation about 10 years ago and recently his was talking of scheduling an appointment to have this same procedure completed again. He states that he has seen Dr. Nguyen in the past. Xrays ordered, ST ordered, iron PO d/c'ed and Dr. Becerril was consulted. Dr. Becerril was up to unit and spoke with patient- pt agreed to have scope completed and was taken from unit at 1830. patients daughter in room and aware.
--- NOTE | 2017-09-14 20:15 | NURSING ---
PATIENT OFF FLOOR IN ENDO. DAUGHTER IN ROOM
--- NOTE | 2017-09-14 20:27 | PCM.OPRPT ---
Problem List (1) Dysphagia Status: Acute Qualifiers: Dysphagia type: pharyngeal phase Qualified Code(s): R13.13 - Dysphagia, pharyngeal phase (2) Foreign body in esophagus Status: Acute Qualifiers: Encounter type: initial encounter Qualified Code(s): T18.108A - Unspecified foreign body in esophagus causing other injury, initial encounter Report of Operation Date of Procedure: 09/14/17 Pre-Operative Diagnosis: Impacted pill in the proximal esophagus Post-Operative Diagnosis: 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 The EGD scope was placed into the mouth and into the pharynx. This was guided into the proximal esophagus where an obstruction and was met. While trying to use the 3-prong graspers to grasp the pill it slid forward into the distal esophagus into pieces. The scope was advanced through the stricture and was barely able to fit. The esophageal tissue was friable and there was some minor bleeding. The scope was withdrawn and this bleeding was monitored and it was felt to be very minor. The scope was slowly withdrawn and the patient was awoken and taken to PACU in stable condition. For fear of worsening the bleeding I did not pass the scope beyond the midesophagus.
--- NOTE | 2017-09-14 20:57 | NURSING ---
PT ARRIVED TO FLOOR AT THIS TIME S/P EGD
[2017-09-15] VITALS (17 sets, daily range): BP systolic 104–131; BP diastolic 60–73; PULSE 93–117; RESP 12–28; TEMP 36.5–37.3; O2SAT 83–97
[2017-09-15] MEDS: Ondansetron 4 MG/2 ML Vial IV (00:48)
--- NOTE | 2017-09-15 00:50 | NURSING ---
AWAKE, C/O NAUSEA. PRODUCTIVE BROWN TINGED PHLEGM NOTED. CALLED FOR ZOFRAN AND AEROSOL TX. 83% 4L N/C.
[2017-09-15] MEDS: Ipratropium/Albuterol Sulfate 3 ML AMPUL.NEB INHALATION ×5 (00:55→18:46)
--- NOTE | 2017-09-15 01:17 | NURSING ---
AEROSOL TX COMPLETED. INCREASED TO 5L N/C WITH HUMIDIFIED OXYGEN. HARSH PROD COUGH OF BROWN TINGED SPUTUM. PT REPORTS SOB HAS IMPROVED. ZOFRAN EFFECTIVE FOR NAUSEA. VSS. WILL MONITOR.
--- NOTE | 2017-09-15 04:40 | RAD_ITS ---
STUDY: X-RAY - ABDOMEN/PELVIS REASON FOR EXAM: Male, 77 years old. Diffuse abdominal pain TECHNIQUE: Supine and decubitus films of the abdomen, 4 total views obtained COMPARISON: Yesterday FINDINGS: Normal visualized lung bases. Multiple borderline distended air-filled loops of small bowel on the supine films with air-fluid levels noted on decubitus films findings consistent with ileus. Retained stool noted in the colon. There is no demonstrated free abdominal air. The visualized liver, spleen and kidneys are grossly normal in size and morphology. Normal soft tissue structures. There are diffuse degenerative changes of the visualized lumbar spine. RAD/Abd Decub and/or Erect(Portabl IMPRESSION: Small bowel ileus Electronically Signed: Flako Zheng MD at 10:31 EDT , Service support ,
[2017-09-15 07:12] LABS: Anion Gap 7 (5-15); BUN 14 mg/dL (7-18); BUN/Creat Ratio 15.9 RATIO (10-20); Calcium,Total 8.1 mg/dL (8.5-10.1); Chloride 110 mmol/L (98-107); Creatinine, Serum 0.88 mg/dL (0.70-1.30); EST Glomerular Filtration Rate 89 mL/min (>60); Est Glom Filt Rate - Afr Amer 108 mL/min (>60); Estimated Creatinine Clearance 50.81 ml/min; Glucose 77 mg/dL (74-106); Potassium 3.9 mmol/L (3.5-5.1); Sodium Level 141 mmol/L (136-145)
[2017-09-15 07:20] LABS: Absolute Lymphocyte Count 1.04 X10^3/ul (0.83-4.51); Absolute Neutrophil Count 24.7 X10^3/uL (2.0-7.7); Basophil# 0.57 X10^3/uL; Basophil% 2.1 % (0-1); Eosinophil# 0.45 X10^3/uL; Eosinophils% 1.6 % (0-5); Hematocrit 40.3 % (40-54); Hemoglobin 11.3 g/dl (13.0-16.5); Lymphocyte # 1.04 X10^3/ul (4.0); Lymphocyte % 3.7 % (19-41); Mean Corpuscular Hgb 17.3 pg (27.0-32.0); Mean Corpuscular Volume 61.8 fL (80-94); Mean Platelet Vol. 9.2 fl (6.2-12.0); Monocyte% 2.9 % (0-10); Neutrophil # 24.67 X10^3/uL (2.7-7.7); Neutrophil % 88.9 % (47-70); RBC Distribution Width CV 20.6 % (11.6-14.6); RBC Distribution Width SD 43.8 fl (35.1-43.9); Red Blood Count 6.52 M/mm3 (4.6-6.2); White Blood Count 27.7 K/mm3 (4.4-11.0)
[2017-09-15 07:27] LABS: Differential Indicated SCAN CRITERIA MET; POSITIVE COUNT YES; POSITIVE DIFFERENTIAL YES; POSITIVE MORPHOLOGY YES; Platelet Count 1291 K/mm3 (150-450)
--- NOTE | 2017-09-15 07:31 | PCM.PN.SRG ---
Patient Problems: Active and Suspected Problems (Last Reviewed 05/03/17 @ 09:16 by Carmen Graham) Enteritis (Acute) Ileus (Acute) Leukocytosis (Acute) JULIANA (acute kidney injury) (Acute) Dysphagia (Acute) Foreign body in esophagus (Acute) Subjective: Patient is having some nausea this morning. No abdominal pain. He does have a minor sore throat but no other neck pain. He has no vomiting overnight. He is passing gas. - Physical Exam General: Alert, Oriented x3, Cooperative, No apparent distress Neck: No JVD Lungs: Normal air movement Cardiovascular: Regular rate, Regular Rhythm Abdomen: Soft, Non Tender, Non-Distended Vital Signs Temp Pulse Resp BP Pulse Ox 99.1 F 110 H 22 H 131/73 H 91 09/15/17 04:10 09/15/17 04:11 09/15/17 04:11 09/15/17 04:10 09/15/17 05:27 Oxygen Flow Rate (L/min) 5 Oxygen Delivery Method Nasal Cannula Weight: 112 lb 10.499 oz Body Mass Index (BMI) 15.7 Intake and Output for Last 24 Hours 09/13/17 09/14/17 09/15/17 23:59 23:59 23:59 Intake Total 4566 / 4566 825 / 825 Output Total 250 / 250 Balance 4566 / 4566 575 / 575 Laboratory Tests Past 24 Hrs 09/14/17 09/14/17 09/15/17 05:12 05:12 05:55 WBC 27.7 H RBC 6.52 H Hgb 11.3 L Hct 40.3 MCV 61.8 L MCH 17.3 L MCHC 28.0 L RDW 20.6 H RDW Differential 43.8 Plt Count 1291 H* MPV 9.2 Immature Gran % (Auto) 0.800 Neut % (Auto) 88.9 H Lymph % (Auto) 3.7 L Cuming % (Auto) 2.9 Eos % (Auto) 1.6 Baso % (Auto) 2.1 H Absolute Neuts (auto) 24.7 H Absolute Lymphs (auto) 1.04 Total Counted Pending Diff Path Review Reviewed Sodium Potassium Chloride Carbon Dioxide Anion Gap BUN Creatinine Estim Creat Clear Calc Est GFR (MDRD) Af Amer Est GFR (MDRD) Non-Af BUN/Creatinine Ratio Glucose Calcium Iron 14 L TIBC 269 Iron Saturation 5.2 L Ferritin 15 L 09/15/17 05:55 WBC RBC Hgb Hct MCV MCH MCHC RDW RDW Differential Plt Count MPV Immature Gran % (Auto) Neut % (Auto) Lymph % (Auto) Cuming % (Auto) Eos % (Auto) Baso % (Auto) Absolute Neuts (auto) Absolute Lymphs (auto) Total Counted Diff Path Review Sodium 141 Potassium 3.9 Chloride 110 H Carbon Dioxide 24.0 Anion Gap 7 BUN 14 Creatinine 0.88 Estim Creat Clear Calc 50.81 Est GFR (MDRD) Af Amer 108 Est GFR (MDRD) Non-Af 89 BUN/Creatinine Ratio 15.9 Glucose 77 Calcium 8.1 L Iron TIBC Iron Saturation Ferritin Medical Necessity - Tobacco Use Smoking Status: Former smoker Assessment/Plan Active and Suspected Problems (Last Reviewed 05/03/17 @ 09:16 by Carmen Graham) Enteritis (Acute) Ileus (Acute) Leukocytosis (Acute) JULIANA (acute kidney injury) (Acute) Dysphagia (Acute) Foreign body in esophagus (Acute) 77-year-old male status post EGD for impacted foreign body of proximal esophagus 1. Patient had no vomiting overnight. The patient is nauseous this morning. Once his nausea subsides and if his KUB shows no obstruction he can be advanced to a soft mechanical diet. 2. Due to the history of radiation as well as the tightness of his proximal esophagus measuring only 1 cm I would highly recommend considering a swallow study by speech therapy as well as possible PEG tube I explained this to the patient at this time he does not want a PEG tube. Yang Becerril MD Pager: [facility] [address] [place] [address], [address] [place] [phone] Office:
[2017-09-15 07:58] LABS: Platelet Estimate MKD INC (ADEQ)
[2017-09-15 07:59] LABS: Hypochromasia 1+; Microcytosis 1+; Ovalocyte 1+
--- NOTE | 2017-09-15 08:40 | PCM.PN.HOSP ---
Patient Problems: Active and Suspected Problems (Last Reviewed 05/03/17 @ 09:16 by Carmen Graham) Enteritis (Acute) Ileus (Acute) Leukocytosis (Acute) JULIANA (acute kidney injury) (Acute) Dysphagia (Acute) Foreign body in esophagus (Acute) Subjective: Seen and examined. Patient had esophagoscopy and foreign body was removed. Esophageal tissue and proximal esophagus was found friable with minor bleeding. On the floor, later on patient became short of breath and requires 5-6 L of oxygen with pulse ox 93%. Respiratory rate 22, heart rate 110/m, BP 131/73. 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 BiPAP ordered as the patient is awake and alert. Vitals/I&O's: Vital Signs Temp Pulse Resp BP Pulse Ox 99.1 F 117 H 22 H 131/73 H 93 09/15/17 04:10 09/15/17 07:00 09/15/17 07:00 09/15/17 04:10 09/15/17 07:00 Oxygen Flow Rate (L/min) 6 Oxygen Delivery Method Nasal Cannula Weight: 112 lb 10.499 oz Body Mass Index (BMI) 15.7 Intake and Output for Last 24 Hours 09/13/17 09/14/17 09/15/17 23:59 23:59 23:59 Intake Total 4566 / 4566 825 / 825 Output Total 250 / 250 Balance 4566 / 4566 575 / 575 General: Alert, Oriented x3, Cooperative HEENT: Atraumatic, PERRLA, EOMI, Normocephalic Neck: Supple, No JVD, Negative Carotid Bruits Lungs: Rhonchi, Short of Breath, Tachypneic Cardiovascular: Regular rate, Normal S1, Normal S2, No murmurs, Tachycardic Abdomen: Bowel Sounds Present, Soft, Non Tender, Non-Distended, Hypoactive Bowel Sounds Extremities: No edema, Capillary Refill Less than 3 Seconds Musculoskeletal: Arthritic Changes, Muscle Wasting Neurological: Cranial nerves II-XII grossly intact, Neuro grossly intact Psych/Mental Status: Anxious Laboratory Results 09/14/17 05:12: Diff Path Review Reviewed 09/14/17 05:12: Iron 14 L, TIBC 269, Iron Saturation 5.2 L, Ferritin 15 L 09/15/17 05:55: WBC 27.7 H, RBC 6.52 H, Hgb 11.3 L, Hct 40.3, MCV 61.8 L, MCH 17.3 L, MCHC 28.0 L, RDW 20.6 H, RDW Differential 43.8, Plt Count 1291 H*, MPV 9.2, Immature Gran % (Auto) 0.800, Neut % (Auto) 88.9 H, Lymph % (Auto) 3.7 L, Routt % (Auto) 2.9, Eos % (Auto) 1.6, Baso % (Auto) 2.1 H, Absolute Neuts (auto) 24.7 H, Absolute Lymphs (auto) 1.04, Total Counted Not Reportable, Diff Path Review August foll, Platelet Estimate MKD INC, Hypochromasia 1+, Microcytosis 1+, Ovalocytes 1+ 09/15/17 05:55: Sodium 141, Potassium 3.9, Chloride 110 H, Carbon Dioxide 24.0, Anion Gap 7, BUN 14, Creatinine 0.88, Estim Creat Clear Calc 50.81, Est GFR (MDRD) Af Amer 108, Est GFR (MDRD) Non-Af 89, BUN/Creatinine Ratio 15.9, Glucose 77, Calcium 8.1 L Current Medications Acetaminophen (Tylenol) 650 mg PO Q6H PRN PRN PRN Reason: Mild Pain (1-3)/Temp > 100.7 F Albuterol Sulfate (Ventolin Aerosols) 2.5 mg INHALATION Q2H PRN PRN PRN Reason: SOB &/OR WHEEZING Albuterol/Ipratropium (Duoneb) 3 ml INHALATION Q6H.RT COUNTS INCLUDE 234 BEDS AT THE [facility] Last Admin: 09/15/17 07:00 Dose: 3 ml Enoxaparin Sodium (Lovenox) 30 mg SC DAILY@1000 COUNTS INCLUDE 234 BEDS AT THE [facility] Last Admin: 09/14/17 11:46 Dose: 30 mg Ciprofloxacin (Cipro) 200 mg in 100 mls @ 100 mls/hr IV Q12 COUNTS INCLUDE 234 BEDS AT THE [facility] Last Admin: 09/14/17 22:32 Dose: 100 mls/hr Potassium Chloride/Sodium Chloride (Kcl 20meq In 0.45% Ns 1000ml) 1,000 mls @ 100 mls/hr IV .Q10H COUNTS INCLUDE 234 BEDS AT THE [facility] Last Admin: 09/14/17 16:45 Dose: 100 mls/hr Metronidazole (Flagyl) 500 mg in 100 mls @ 100 mls/hr IV Q8 INDU Last Admin: 09/15/17 05:32 Dose: 100 mls/hr Magnesium Hydroxide (Milk Of Magnesia) 30 ml PO DAILY PRN PRN PRN Reason: Constipation Morphine Sulfate () 2 - 4 mg IV Q4H PRN PRN PRN Reason: MOD-SEVERE PAIN (4-10/10) Nutritional Formula (Lactose Free) (Ensure Clear) 120 ml PO TIDCM INDU Ondansetron HCl (Zofran) 4 mg IV Q8H PRN PRN PRN Reason: NAUSEA Last Admin: 09/15/17 00:48 Dose: 4 mg Sodium Chloride () 5 - 30 ml IV UD PRN PRN Reason: SALINE FLUSH Last Admin: 09/14/17 15:22 Dose: 5 ml Medical Necessity - Tobacco Use Smoking Status: Former smoker Assessment/Plan Active and Suspected Problems (Last Reviewed 05/03/17 @ 09:16 by Carmen Graham) Enteritis (Acute) Ileus (Acute) Leukocytosis (Acute) JULIANA (acute kidney injury) (Acute) Dysphagia (Acute) Foreign body in esophagus (Acute) The patient is a 77 year old M with history of COPD, 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 Patient had some nausea but no vomiting. Patient states that this similar to when he had an issue with peptic ulcers 50 years ago. At that time, patient had hematemesis and bleeding. Patient did require an aggressive abdominal surgery. In the emergency room, he had a CAT scan that showed nonspecific bowel gas pattern with scattered fluid-filled loops of small bowel with scattered air-fluid levels. No dilation. Could be related with enteritis/early ileus. Also noted mild to moderate splenomegaly. In the emergency room, patient received aspirin, morphine and Zofran. He is still having of the abdominal pain. 1. Acute enteritis vs ileus. Improving. We will keep the patient n.p.o. as patient has stricture in proximal esophagus and pill esophagitis. KUB x-ray shows nonspecific and nonobstructive pattern of bowel gas. Patient is moving his bowel and flatus; Somewhat loose. Recently recovering from flu involving heavy nausea and vomiting last week. Suspect viral gastroenteritis. On cipro/flagyl. Abdominal xr negative today. CT abdomen at admission with scattered fluid filled loods, scattered air fluid levels with no dilatation, gaseous distended loops with fecal retention, enteritis vs ileus. Mild to mod. splenomegaly. 2. Impacted foreign body/pill esophagitis and proximal esophagus: Patient had esophagoscopy and the advanced forward passed beyond the proximal esophagus where obstruction was found. The pill slid forward into the distal esophagus and split into pieces. Esophageal tissue was found friable with minor bleeding. Stricture was found at proximal/mid esophagus and the scope could not be passed beyond mid esophagus. Discussed with surgeon Dr. calero and advised modified barium swallow study. He also advised PEG tube but patient has not decided yet Acute hypoxic respiratory failure secondary to COPD. The patient was on 2 L until yesterday night and required 3 L last night and currently on 5-6 L. And also tachypneic. Patient is refusing for BiPAP. Chest x-ray shows chronic changes, mainly chronic interstitial changes and persistent opacification of both lung bases. No acute finding. ABG reported 7.39/30 5/75 on 50% FiO2. In case if he needs intubation will need anesthesiologist help. 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 Afebrile. 3. JULIANA - resolved. 4. COPD exacerbation during hospitalization after the procedure: On bronchodilator. 1 dose IV Solu-Medrol. 5. Chronic iron def. anemia - Low iron/tibc/ferritin. Currently hemoglobin is 0.3 g percent. 6. Thrombocytosis - improved. unclear etiology DVT ppx: lovenox Laboratory Results 09/15/17 05:55: WBC 27.7 H, RBC 6.52 H, Hgb 11.3 L, Hct 40.3, MCV 61.8 L, MCH 17.3 L, MCHC 28.0 L, RDW 20.6 H, RDW Differential 43.8, Plt Count 1291 H*, MPV 9.2, Immature Gran % (Auto) 0.800, Neut % (Auto) 88.9 H, Lymph % (Auto) 3.7 L, Routt % (Auto) 2.9, Eos % (Auto) 1.6, Baso % (Auto) 2.1 H, Absolute Neuts (auto) 24.7 H, Absolute Lymphs (auto) 1.04, Total Counted Not Reportable, Diff Path Review May foll, Platelet Estimate MKD INC, Hypochromasia 1+, Microcytosis 1+, Ovalocytes 1+ 09/15/17 05:55: Sodium 141, Potassium 3.9, Chloride 110 H, Carbon Dioxide 24.0, Anion Gap 7, BUN 14, Creatinine 0.88, Estim Creat Clear Calc 50.81, Est GFR (MDRD) Af Amer 108, Est GFR (MDRD) Non-Af 89, BUN/Creatinine Ratio 15.9, Glucose 77, Calcium 8.1 L 09/15/17 09:29: Specimen Type ART, Sample Site R Radial, pH 7.39, Bicarbonate Actual 21.8 L, POC Total CO2 23, Base Excess -3 L, O2 Saturation 95, O2 % 50, ABG pCO2 35.8, ABG pO2 75, Deniz Test POS, O2 Delivery Device Vent Mask, Blood Gas Notified Whom [facility] , Blood Gas Notified Time 925 Clinical Impression(s) from Imaging Studies Abdomen/Pelvis CT 09/13/17 19:22 IMPRESSION: 1. Nonspecific bowel gas pattern with scattered fluid filled loops of small bowel with scattered air-fluid levels however, no dilation. Gaseous distended loops of colon with fecal retention. Normal appendix. Findings could be related to enteritis/early ileus. 2. Mild to moderate splenomegaly. Electronically Signed: Papi Gleason DO at 21:09 EDT Tel , Service support , Chest X-Ray 09/13/17 20:22 IMPRESSION: COPD/emphysema with bronchiectasis. Findings concerning for developing infiltrate or mass in the right midlung field. Consider short-term follow-up or further evaluation with CT. at [id number] Reported and signed by: Cinthya Beck MD Electronically Signed: Cinthya Beck MD at 21:53 EDT Tel , Service support , Abdomen X-Ray 09/14/17 05:55 IMPRESSION: Normal bowel gas pattern. No free air is detected. Electronically Signed: Dawit Mason MD at 5:54 EDT Tel , Service support , Chest X-Ray 09/14/17 18:00 IMPRESSION: Interstitial prominence in the lungs. Granulomatous nodules of the right upper lobe and granulomatous hilar calcifications. No radiopaque foreign body. KUB X-Ray 09/14/17 18:05 IMPRESSION: No radiopaque foreign body seen. Please note that medication may not be radiopaque. Abdomen X-Ray 09/15/17 04:40 IMPRESSION: Small bowel ileus Chest X-Ray 09/15/17 09:04 IMPRESSION: No interval change Code Visit Inpatient E&M: [id number] [facility] L3
--- NOTE | 2017-09-15 09:04 | RAD_ITS ---
STUDY: X-RAY CHEST REASON FOR EXAM: Male, 77 years old. Worsening shortness of breath TECHNIQUE: Single AP portable view of the chest. COMPARISON: Yesterday FINDINGS: Lungs are hyperexpanded with chronic interstitial changes and persistent opacifications in both lung bases suggesting superimposed edema. No demonstrated effusion. There is little significant interval change. Normal size heart. Normal mediastinum and malia. Normal visualized pulmonary arteries. Normal visualized aortic arch and descending thoracic aorta. Normal visualized thoracic spine. Normal visualized ribs, clavicles, and shoulders. There is no demonstrated abnormality of the visualized soft tissue structures of the upper abdomen. RAD/Chest 1 View (Portable) IMPRESSION: No interval change Electronically Signed: Flako Zheng MD at 10:28 EDT , Service support ,
--- NOTE | 2017-09-15 09:07 | PN_ITS ---
Patient Problems: Active and Suspected Problems (Last Reviewed 05/03/17 @ 09:16 by Carmen Graham ) Enteritis (Acute) Ileus (Acute) Leukocytosis (Acute) JULIANA (acute kidney injury) (Acute) Dysphagia (Acute) Foreign body in esophagus (Acute) Subjective: Seen and examined. Patient had esophagoscopy and foreign body was removed. Esophageal tissue and proximal esophagus was found friable with minor bleeding. On the floor, later on patient became short of breath and requires 5-6 L of oxygen with pulse ox 93%. Respiratory rate 22, heart rate 110/m, BP 131/73. 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 BiPAP ordered as the patient is awake and alert. Vitals/I&O's: Vital Signs Temp Pulse Resp BP Pulse Ox 99.1 F 117 H 22 H 131/73 H 93 09/15/17 04:10 09/15/17 07:00 09/15/17 07:00 09/15/17 04:10 09/15/17 07:00 Oxygen Flow Rate (L/min) 6 Oxygen Delivery Method Nasal Cannula Weight: 112 lb 10.499 oz Body Mass Index (BMI) 15.7 Intake and Output for Last 24 Hours 09/13/17 09/14/17 09/15/17 23:59 23:59 23:59 Intake Total 4566 / 4566 825 / 825 Output Total 250 / 250 Balance 4566 / 4566 575 / 575 General: Alert, Oriented x3, Cooperative HEENT: Atraumatic, PERRLA, EOMI, Normocephalic Neck: Supple, No JVD, Negative Carotid Bruits Lungs: Rhonchi, Short of Breath, Tachypneic Cardiovascular: Regular rate, Normal S1, Normal S2, No murmurs, Tachycardic Abdomen: Bowel Sounds Present, Soft, Non Tender, Non-Distended, Hypoactive Bowel Sounds Extremities: No edema, Capillary Refill Less than 3 Seconds Musculoskeletal: Arthritic Changes, Muscle Wasting Neurological: Cranial nerves II-XII grossly intact, Neuro grossly intact Psych/Mental Status: Anxious Laboratory Results 09/14/17 05:12: Diff Path Review Reviewed 09/14/17 05:12: Iron 14 L, TIBC 269, Iron Saturation 5.2 L, Ferritin 15 L 09/15/17 05:55: WBC 27.7 H, RBC 6.52 H, Hgb 11.3 L, Hct 40.3, MCV 61.8 L, MCH 17.3 L, MCHC 28.0 L, RDW 20.6 H, RDW Differential 43.8, Plt Count 1291 H*, MPV 9.2, Immature Gran % (Auto) 0.800, Neut % (Auto) 88.9 H, Lymph % (Auto) 3.7 L, [place] % (Auto) 2.9, Eos % (Auto) 1.6, Baso % (Auto) 2.1 H, Absolute Neuts (auto) 24.7 H, Absolute Lymphs (auto) 1.04, Total Counted Not Reportable, Diff Path Review August foll, Platelet Estimate MKD INC, Hypochromasia 1+, Microcytosis 1+, Ovalocytes 1+ 09/15/17 05:55: Sodium 141, Potassium 3.9, Chloride 110 H, Carbon Dioxide 24.0, Anion Gap 7, BUN 14, Creatinine 0.88, Estim Creat Clear Calc 50.81, Est GFR ( MDRD) Af Amer 108, Est GFR (MDRD) Non-Af 89, BUN/Creatinine Ratio 15.9, Glucose 77, Calcium 8.1 L Current Medications Acetaminophen (Tylenol) 650 mg PO Q6H PRN PRN PRN Reason: Mild Pain (1-3)/Temp > 100.7 F Albuterol Sulfate (Ventolin Aerosols) 2.5 mg INHALATION Q2H PRN PRN PRN Reason: SOB &/OR WHEEZING Albuterol/Ipratropium (Duoneb) 3 ml INHALATION Q6H.RT [facility] Last Admin: 09/15/17 07:00 Dose: 3 ml Enoxaparin Sodium (Lovenox) 30 mg SC DAILY@1000 [facility] Last Admin: 09/14/17 11:46 Dose: 30 mg Ciprofloxacin (Cipro) 200 mg in 100 mls @ 100 mls/hr IV Q12 [facility] Last Admin: 09/14/17 22:32 Dose: 100 mls/hr Potassium Chloride/Sodium Chloride (Kcl 20meq In 0.45% Ns 1000ml) 1,000 mls @ 100 mls/hr IV .Q10H [facility] Last Admin: 09/14/17 16:45 Dose: 100 mls/hr Metronidazole (Flagyl) 500 mg in 100 mls @ 100 mls/hr IV Q8 [facility] Last Admin: 09/15/17 05:32 Dose: 100 mls/hr Magnesium Hydroxide (Milk Of Magnesia) 30 ml PO DAILY PRN PRN PRN Reason: Constipation Morphine Sulfate () 2 - 4 mg IV Q4H PRN PRN PRN Reason: MOD-SEVERE PAIN (4-10/10) Nutritional Formula (Lactose Free) (Ensure Clear) 120 ml PO TIDCM INDU Ondansetron HCl (Zofran) 4 mg IV Q8H PRN PRN PRN Reason: NAUSEA Last Admin: 09/15/17 00:48 Dose: 4 mg Sodium Chloride () 5 - 30 ml IV UD PRN PRN Reason: SALINE FLUSH Last Admin: 09/14/17 15:22 Dose: 5 ml Medical Necessity - Tobacco Use Smoking Status: Former smoker Assessment/Plan Active and Suspected Problems (Last Reviewed 05/03/17 @ 09:16 by Carmen Graham ) Enteritis (Acute) Ileus (Acute) Leukocytosis (Acute) JULIANA (acute kidney injury) (Acute) Dysphagia (Acute) Foreign body in esophagus (Acute) The patient is a 77 year old M with history of COPD, 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 Patient had some nausea but no vomiting. Patient states that this similar to when he had an issue with peptic ulcers 50 years ago. At that time, patient had hematemesis and bleeding. Patient did require an aggressive abdominal surgery. In the emergency room, he had a CAT scan that showed nonspecific bowel gas pattern with scattered fluid-filled loops of small bowel with scattered air-fluid levels. No dilation. Could be related with enteritis/early ileus. Also noted mild to moderate splenomegaly. In the emergency room, patient received aspirin , morphine and Zofran. He is still having of the abdominal pain. 1. Acute enteritis vs ileus. Improving. We will keep the patient n.p.o. as patient has stricture in proximal esophagus and pill esophagitis. KUB x-ray shows nonspecific and nonobstructive pattern of bowel gas. Patient is moving his bowel and flatus; Somewhat loose. Recently recovering from flu involving heavy nausea and vomiting last week. Suspect viral gastroenteritis. On cipro/ flagyl. Abdominal xr negative today. CT abdomen at admission with scattered fluid filled loods, scattered air fluid levels with no dilatation, gaseous distended loops with fecal retention, enteritis vs ileus. Mild to mod. splenomegaly. 2. Impacted foreign body/pill esophagitis and proximal esophagus: Patient had esophagoscopy and the advanced forward passed beyond the proximal esophagus where obstruction was found. The pill slid forward into the distal esophagus and split into pieces. Esophageal tissue was found friable with minor bleeding. Stricture was found at proximal/mid esophagus and the scope could not be passed beyond mid esophagus. Discussed with surgeon Dr. calero and advised modified barium swallow study. He also advised PEG tube but patient has not decided yet Acute hypoxic respiratory failure secondary to COPD. The patient was on 2 L until yesterday night and required 3 L last night and currently on 5-6 L. And also tachypneic. Patient is refusing for BiPAP. Chest x-ray shows chronic changes, mainly chronic interstitial changes and persistent opacification of both lung bases. No acute finding. ABG reported 7.39/30 5/75 on 50% FiO2. In case if he needs intubation will need anesthesiologist help. 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 Afebrile. 3. JULIANA - resolved. 4. COPD exacerbation during hospitalization after the procedure: On bronchodilator. 1 dose IV Solu-Medrol. 5. Chronic iron def. anemia - Low iron/tibc/ferritin. Currently hemoglobin is 0.3 g percent. 6. Thrombocytosis - improved. unclear etiology DVT ppx: lovenox Laboratory Results 09/15/17 05:55: WBC 27.7 H, RBC 6.52 H, Hgb 11.3 L, Hct 40.3, MCV 61.8 L, MCH 17.3 L, MCHC 28.0 L, RDW 20.6 H, RDW Differential 43.8, Plt Count 1291 H*, MPV 9.2, Immature Gran % (Auto) 0.800, Neut % (Auto) 88.9 H, Lymph % (Auto) 3.7 L, [place] % (Auto) 2.9, Eos % (Auto) 1.6, Baso % (Auto) 2.1 H, Absolute Neuts (auto) 24.7 H, Absolute Lymphs (auto) 1.04, Total Counted Not Reportable, Diff Path Review May foll, Platelet Estimate [employer]D INC, Hypochromasia 1+, Microcytosis 1+, Ovalocytes 1+ 09/15/17 05:55: Sodium 141, Potassium 3.9, Chloride 110 H, Carbon Dioxide 24.0, Anion Gap 7, BUN 14, Creatinine 0.88, Estim Creat Clear Calc 50.81, Est GFR ( MDRD) Af Amer 108, Est GFR (MDRD) Non-Af 89, BUN/Creatinine Ratio 15.9, Glucose 77, Calcium 8.1 L 09/15/17 09:29: Specimen Type ART, Sample Site R Radial, pH 7.39, Bicarbonate Actual 21.8 L, POC Total CO2 23, Base Excess -3 L, O2 Saturation 95, O2 % 50, ABG pCO2 35.8, ABG pO2 75, Deniz Test POS, O2 Delivery Device Vent Mask, Blood Gas Notified Whom [facility] , Blood Gas Notified Time 925 Clinical Impression(s) from Imaging Studies Abdomen/Pelvis CT 09/13/17 19:22 IMPRESSION: 1. Nonspecific bowel gas pattern with scattered fluid filled loops of small bowel with scattered air-fluid levels however, no dilation. Gaseous distended loops of colon with fecal retention. Normal appendix. Findings could be related to enteritis/early ileus. 2. Mild to moderate splenomegaly. Electronically Signed: Papi Gleason DO at 21:09 EDT Tel , Service support , Chest X-Ray 09/13/17 20:22 IMPRESSION: COPD/emphysema with bronchiectasis. Findings concerning for developing infiltrate or mass in the right midlung field. Consider short-term follow-up or further evaluation with CT. at 3357 Reported and signed by: Cinthya Beck MD Electronically Signed: Cinthya Beck MD at 21:53 EDT Tel , Service support , Abdomen X-Ray 09/14/17 05:55 IMPRESSION: Normal bowel gas pattern. No free air is detected. Electronically Signed: Dawit Mason MD at 5:54 EDT Tel , Service support , Chest X-Ray 09/14/17 18:00 IMPRESSION: Interstitial prominence in the lungs. Granulomatous nodules of the right upper lobe and granulomatous hilar calcifications. No radiopaque foreign body. KUB X-Ray 09/14/17 18:05 IMPRESSION: No radiopaque foreign body seen. Please note that medication may not be radiopaque. Abdomen X-Ray 09/15/17 04:40 IMPRESSION: Small bowel ileus Chest X-Ray 09/15/17 09:04 IMPRESSION: No interval change Code Visit Inpatient E&M: 06433 [facility] L3
--- NOTE | 2017-09-15 09:20 | NURSING ---
Tello Speech Therapist notified of order to hold swallow study for now
[2017-09-15] MEDS: MethylPREDNISolone 125 MG/2 ML Vial 60 MG IV (09:34)
[2017-09-15] MEDS: Ciprofloxacin 200 MG/100 ML BAG 100 MG IV (09:34)
[2017-09-15 09:36] LABS: Allen Test POS; Base Excess -3 mmol/L (-2 to +2); Bicarbonate 21.8 mmol/L (22-26); Blood Gas Specimen Type ART; FI02 50; PO2 75 mmHG (75-100); SITE R Radial; SO2 95 % (95-99); Time Given 925; Total Carbon Dioxide 23 mmol/L; pCO2 35.8 mmHg (35-45); pH 7.39 (7.35-7.45)
[2017-09-15] MEDS: Enoxaparin 30 MG/0.3 ML Syringe SC (09:39)
[2017-09-16] VITALS (9 sets, daily range): BP systolic 110–135; BP diastolic 61–78; PULSE 84–100; RESP 18–20; TEMP 36.4–36.7; O2SAT 93–96
[2017-09-16] MEDS: Ciprofloxacin 200 MG/100 ML BAG 100 MG IV ×3 (00:05→22:34)
[2017-09-16 06:32] LABS: Anion Gap 7 (5-15); BUN 13 mg/dL (7-18); BUN/Creat Ratio 16.4 RATIO (10-20); Calcium,Total 8.5 mg/dL (8.5-10.1); Chloride 109 mmol/L (98-107); Creatinine, Serum 0.79 mg/dL (0.70-1.30); EST Glomerular Filtration Rate 101 mL/min (>60); Est Glom Filt Rate - Afr Amer 122 mL/min (>60); Estimated Creatinine Clearance 44.71 ml/min; Glucose 94 mg/dL (74-106); Potassium 4.5 mmol/L (3.5-5.1); Sodium Level 139 mmol/L (136-145)
[2017-09-16 06:39] LABS: Absolute Lymphocyte Count 0.59 X10^3/ul (0.83-4.51); Basophil# 0.31 X10^3/uL; Eosinophil# 0.03 X10^3/uL; Eosinophils% 0.1 % (0-5); Hematocrit 37.8 % (40-54); Hemoglobin 10.7 g/dl (13.0-16.5); Lymphocyte # 0.59 X10^3/ul (4.0); Mean Corp Hgb Conc 28.3 g/gl (32-36); Mean Corpuscular Hgb 17.3 pg (27.0-32.0); Mean Platelet Vol. 8.9 fl (6.2-12.0); Monocyte# 1.39 X10^3/uL; Monocyte% 4.7 % (0-10); Neutrophil # 26.97 X10^3/uL (2.7-7.7); Neutrophil % 90.4 % (47-70); RBC Distribution Width CV 21.1 % (11.6-14.6); RBC Distribution Width SD 43.8 fl (35.1-43.9); White Blood Count 29.8 K/mm3 (4.4-11.0)
[2017-09-16 06:43] LABS: Platelet Count 1301 K/mm3 (150-450)
[2017-09-16 06:44] LABS: Differential Indicated SCAN CRITERIA MET; POSITIVE COUNT YES; POSITIVE DIFFERENTIAL YES; POSITIVE MORPHOLOGY YES
[2017-09-16] MEDS: Ipratropium/Albuterol Sulfate 3 ML AMPUL.NEB INHALATION ×4 (06:48→18:32)
[2017-09-16 07:16] LABS: Anisocytosis 2+; Microcytosis 1+; Platelet Estimate MKD INC (ADEQ); Platelet Morphology GIANT; Polychromasia 1+
[2017-09-16 07:17] LABS: Ovalocyte RARE
--- NOTE | 2017-09-16 08:31 | PN_ITS ---
Patient Problems: Active and Suspected Problems (Last Reviewed 05/03/17 @ 09:16 by Carmen Graham ) Enteritis (Acute) Ileus (Acute) Leukocytosis (Acute) JULIANA (acute kidney injury) (Acute) Dysphagia (Acute) Foreign body in esophagus (Acute) Subjective: Patient respiratory distress is much better. Currently, on baseline 2 L of oxygen, pulse ox 93%. Respiratory rate 18. No fever Vitals/I&O's: Vital Signs Temp Pulse Resp BP Pulse Ox 98.0 F 84 20 H 125/64 H 93 09/16/17 04:04 09/16/17 06:48 09/16/17 06:48 09/16/17 04:04 09/16/17 06:48 Oxygen Flow Rate (L/min) 2 Oxygen Delivery Method Nasal Cannula Weight: 112 lb 10.499 oz Body Mass Index (BMI) 15.7 Intake and Output for Last 24 Hours 09/14/17 09/15/17 09/16/17 23:59 23:59 23:59 Intake Total 4566 / 4566 2384 / 2384 1241 / 1241 Output Total 450 / 450 200 / 200 Balance 4566 / 4566 1934 / 1934 1041 / 1041 General: Alert, Oriented x3, Cooperative HEENT: Atraumatic, PERRLA, EOMI, Normocephalic Neck: Supple, No JVD, Negative Carotid Bruits Lungs: No wheeze, No rales, Diminished, Rhonchi Cardiovascular: Regular rate, Regular Rhythm, Normal S1, Normal S2, No murmurs Abdomen: Bowel Sounds Present, Soft, Non Tender, Non-Distended Extremities: No edema, Capillary Refill Less than 3 Seconds Skin: No rashes, No breakdown Musculoskeletal: No Tenderness to Palpation of Joints or Extremities, Arthritic Changes, Muscle Wasting Neurological: Cranial nerves II-XII grossly intact Psych/Mental Status: Normal Affect, Appropriate Laboratory Results 09/15/17 09:29: Specimen Type ART, Sample Site R Radial, pH 7.39, Bicarbonate Actual 21.8 L, POC Total CO2 23, Base Excess -3 L, O2 Saturation 95, O2 % 50, ABG pCO2 35.8, ABG pO2 75, Deniz Test POS, O2 Delivery Device Vent Mask, Blood Gas Notified Whom [facility], Blood Gas Notified Time 923 09/16/17 05:24: WBC 29.8 H, RBC 6.20, Hgb 10.7 L, Hct 37.8 L, MCV 61.0 L, MCH 17.3 L, MCHC 28.3 L, RDW 21.1 H, RDW Differential 43.8, Plt Count 1301 H*, MPV 8.9, Immature Gran % (Auto) 1.800 H, Neut % (Auto) 90.4 H, Lymph % (Auto) 2.0 L , [place] % (Auto) 4.7, Eos % (Auto) 0.1, Baso % (Auto) 1.0, Absolute Neuts (auto) 27.0 H, Absolute Lymphs (auto) 0.59 L, Total Counted Not Reportable, Diff Path Review May foll, Platelet Estimate [employer] INC, Plt Morphology Comment GIANT, Polychromasia 1+, Anisocytosis 2+, Microcytosis 1+, Ovalocytes RARE 09/16/17 05:24: Sodium 139, Potassium 4.5, Chloride 109 H, Carbon Dioxide 23.0, Anion Gap 7, BUN 13, Creatinine 0.79, Estim Creat Clear Calc 44.71, Est GFR ( MDRD) Af Amer 122, Est GFR (MDRD) Non-Af 101, BUN/Creatinine Ratio 16.4, Glucose 94, Calcium 8.5 Current Medications Acetaminophen (Tylenol) 650 mg PO Q6H PRN PRN PRN Reason: Mild Pain (1-3)/Temp > 100.7 F Albuterol Sulfate (Ventolin Aerosols) 2.5 mg INHALATION Q2H PRN PRN PRN Reason: SOB &/OR WHEEZING Albuterol/Ipratropium (Duoneb) 3 ml INHALATION Q4HWA.RT [facility] Last Admin: 09/16/17 06:48 Dose: 3 ml Enoxaparin Sodium (Lovenox) 30 mg SC DAILY@1000 [facility] Last Admin: 09/15/17 09:39 Dose: 30 mg Ciprofloxacin (Cipro) 200 mg in 100 mls @ 100 mls/hr IV Q12 [facility] Last Admin: 09/16/17 00:05 Dose: 100 mls/hr Potassium Chloride/Sodium Chloride (Kcl 20meq In 0.45% Ns 1000ml) 1,000 mls @ 100 mls/hr IV .Q10H [facility] Last Admin: 09/15/17 22:34 Dose: 100 mls/hr Metronidazole (Flagyl) 500 mg in 100 mls @ 100 mls/hr IV Q8 [facility] Last Admin: 09/16/17 06:31 Dose: 100 mls/hr Magnesium Hydroxide (Milk Of Magnesia) 30 ml PO DAILY PRN PRN PRN Reason: Constipation Morphine Sulfate () 2 - 4 mg IV Q4H PRN PRN PRN Reason: MOD-SEVERE PAIN (4-10/10) Ondansetron HCl (Zofran) 4 mg IV Q8H PRN PRN PRN Reason: NAUSEA Last Admin: 09/15/17 00:48 Dose: 4 mg Sodium Chloride () 5 - 30 ml IV UD PRN PRN Reason: SALINE FLUSH Last Admin: 09/14/17 15:22 Dose: 5 ml Medical Necessity - Tobacco Use Smoking Status: Former smoker Assessment/Plan Active and Suspected Problems (Last Reviewed 05/03/17 @ 09:16 by Carmen Graham ) Enteritis (Acute) Ileus (Acute) Leukocytosis (Acute) JULIANA (acute kidney injury) (Acute) Dysphagia (Acute) Foreign body in esophagus (Acute) The patient is a 77 year old M with history of COPD, 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 Patient had some nausea but no vomiting. Patient states that this similar to when he had an issue with peptic ulcers 50 years ago. At that time, patient had hematemesis and bleeding. Patient did require an aggressive abdominal surgery. In the emergency room, he had a CAT scan that showed nonspecific bowel gas pattern with scattered fluid-filled loops of small bowel with scattered air-fluid levels. No dilation. Could be related with enteritis/early ileus. Also noted mild to moderate splenomegaly. In the emergency room, patient received aspirin , morphine and Zofran. He is still having of the abdominal pain. 1. Acute enteritis vs ileus. Improving. We will keep the patient n.p.o. as patient has stricture in proximal esophagus and pill esophagitis. KUB x-ray shows nonspecific and nonobstructive pattern of bowel gas. Patient is moving his bowel and flatus. Recently recovering from flu involving heavy nausea and vomiting last week. Suspect viral gastroenteritis. On cipro/flagyl. Abdominal xr negative today. CT abdomen at admission with scattered fluid filled loods, scattered air fluid levels with no dilatation, gaseous distended loops with fecal retention, enteritis vs ileus. Mild to mod. splenomegaly. 2. Impacted foreign body/pill esophagitis and proximal esophagus: Patient had esophagoscopy and the advanced forward passed beyond the proximal esophagus where obstruction was found. The pill slid forward into the distal esophagus and split into pieces. Esophageal tissue was found friable with minor bleeding. Stricture was found at proximal/mid esophagus and the scope could not be passed beyond mid esophagus. Discussed with surgeon Dr. calero and advised modified barium swallow study; scheduled for tomorrow. He also advised PEG tube but patient has not decided yet Acute hypoxic respiratory failure secondary to COPD. The patient respiratory status is back on baseline on 2 L of oxygen. Chest x-ray shows chronic changes , mainly chronic interstitial changes and persistent opacification of both lung bases. No acute finding. ABG reported 7.39/30 5/75 on 50% FiO2. 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 Afebrile. 3. JULIANA - resolved. 4. COPD exacerbation during hospitalization after the procedure: On bronchodilator. 1 dose IV Solu-Medrol. 5. Chronic iron def. anemia - Low iron/tibc/ferritin. Currently hemoglobin is 0.3 g percent. 6. Thrombocytosis - improved. unclear etiology DVT ppx: lovenox Laboratory Results 09/16/17 05:24: WBC 29.8 H, RBC 6.20, Hgb 10.7 L, Hct 37.8 L, MCV 61.0 L, MCH 17.3 L, MCHC 28.3 L, RDW 21.1 H, RDW Differential 43.8, Plt Count 1301 H*, MPV 8.9, Immature Gran % (Auto) 1.800 H, Neut % (Auto) 90.4 H, Lymph % (Auto) 2.0 L , [place] % (Auto) 4.7, Eos % (Auto) 0.1, Baso % (Auto) 1.0, Absolute Neuts (auto) 27.0 H, Absolute Lymphs (auto) 0.59 L, Total Counted Not Reportable, Diff Path Review May foll, Platelet Estimate [employer]D INC, Plt Morphology Comment GIANT, Polychromasia 1+, Anisocytosis 2+, Microcytosis 1+, Ovalocytes RARE 09/16/17 05:24: Sodium 139, Potassium 4.5, Chloride 109 H, Carbon Dioxide 23.0, Anion Gap 7, BUN 13, Creatinine 0.79, Estim Creat Clear Calc 44.71, Est GFR ( MDRD) Af Amer 122, Est GFR (MDRD) Non-Af 101, BUN/Creatinine Ratio 16.4, Glucose 94, Calcium 8.5 09/15/17 05:55: WBC 27.7 H, RBC 6.52 H, Hgb 11.3 L, Hct 40.3, MCV 61.8 L, MCH 17.3 L, MCHC 28.0 L, RDW 20.6 H, RDW Differential 43.8, Plt Count 1291 H*, MPV 9.2, Immature Gran % (Auto) 0.800, Neut % (Auto) 88.9 H, Lymph % (Auto) 3.7 L, [place] % (Auto) 2.9, Eos % (Auto) 1.6, Baso % (Auto) 2.1 H, Absolute Neuts (auto) 24.7 H, Absolute Lymphs (auto) 1.04, Total Counted Not Reportable, Diff Path Review August, Platelet Estimate [employer]D INC, Hypochromasia 1+, Microcytosis 1+, Ovalocytes 1+ 09/15/17 05:55: Sodium 141, Potassium 3.9, Chloride 110 H, Carbon Dioxide 24.0, Anion Gap 7, BUN 14, Creatinine 0.88, Estim Creat Clear Calc 50.81, Est GFR ( MDRD) Af Amer 108, Est GFR (MDRD) Non-Af 89, BUN/Creatinine Ratio 15.9, Glucose 77, Calcium 8.1 L 09/15/17 09:29: Specimen Type ART, Sample Site R Radial, pH 7.39, Bicarbonate Actual 21.8 L, POC Total CO2 23, Base Excess -3 L, O2 Saturation 95, O2 % 50, ABG pCO2 35.8, ABG pO2 75, Deniz Test POS, O2 Delivery Device Vent Mask, Blood Gas Notified Whom [facility], Blood Gas Notified Time 925 Clinical Impression(s) from Imaging Studies Abdomen/Pelvis CT 09/13/17 19:22 IMPRESSION: 1. Nonspecific bowel gas pattern with scattered fluid filled loops of small bowel with scattered air-fluid levels however, no dilation. Gaseous distended loops of colon with fecal retention. Normal appendix. Findings could be related to enteritis/early ileus. 2. Mild to moderate splenomegaly. Electronically Signed: Papi Gleason DO at 21:09 EDT Tel , Service support , Chest X-Ray 09/13/17 20:22 IMPRESSION: COPD/emphysema with bronchiectasis. Findings concerning for developing infiltrate or mass in the right midlung field. Consider short-term follow-up or further evaluation with CT. at 2155 Reported and signed by: Cinthya Beck MD Electronically Signed: Cinthya Beck MD at 21:53 EDT Tel , Service support , Abdomen X-Ray 09/14/17 05:55 IMPRESSION: Normal bowel gas pattern. No free air is detected. Electronically Signed: Dawit Mason MD at 5:54 EDT Tel , Service support , Chest X-Ray 09/14/17 18:00 IMPRESSION: Interstitial prominence in the lungs. Granulomatous nodules of the right upper lobe and granulomatous hilar calcifications. No radiopaque foreign body. KUB X-Ray 09/14/17 18:05 IMPRESSION: No radiopaque foreign body seen. Please note that medication may not be radiopaque. Abdomen X-Ray 09/15/17 04:40 IMPRESSION: Small bowel ileus Chest X-Ray 09/15/17 09:04 IMPRESSION: No interval change Code Visit Inpatient E&M: 08670 [facility] L3
[2017-09-16] MEDS: Enoxaparin 30 MG/0.3 ML Syringe SC (09:25)
--- NOTE | 2017-09-16 09:37 | PCM.PN.SRG ---
Patient Problems: Active and Suspected Problems (Last Reviewed 05/03/17 @ 09:16 by Carmen Graham) Enteritis (Acute) Ileus (Acute) Leukocytosis (Acute) JULIANA (acute kidney injury) (Acute) Dysphagia (Acute) Foreign body in esophagus (Acute) Subjective: Patient is doing well this morning. - Physical Exam General: Alert, Oriented x3, Cooperative HEENT: Atraumatic, PERRLA Oral: Moist Mucosa Neck: No JVD Lungs: Normal air movement Cardiovascular: Regular rate, Regular Rhythm Abdomen: Soft, Non Tender, Non-Distended Extremities: No clubbing Skin: No rashes Neurological: Cranial nerves II-XII grossly intact Psych/Mental Status: Normal Affect Vital Signs Temp Pulse Resp BP Pulse Ox 98.0 F 84 20 H 125/64 H 93 09/16/17 04:04 09/16/17 06:48 09/16/17 06:48 09/16/17 04:04 09/16/17 06:48 Oxygen Flow Rate (L/min) 2 Oxygen Delivery Method Nasal Cannula Weight: 112 lb 10.499 oz Body Mass Index (BMI) 15.7 Intake and Output for Last 24 Hours 09/14/17 09/15/17 09/16/17 23:59 23:59 23:59 Intake Total 4566 / 4566 2384 / 2384 1241 / 1241 Output Total 450 / 450 200 / 200 Balance 4566 / 4566 1934 / 1934 1041 / 1041 Laboratory Tests Past 24 Hrs 09/16/17 09/16/17 05:24 05:24 WBC 29.8 H RBC 6.20 Hgb 10.7 L Hct 37.8 L MCV 61.0 L MCH 17.3 L MCHC 28.3 L RDW 21.1 H RDW Differential 43.8 Plt Count 1301 H* MPV 8.9 Immature Gran % (Auto) 1.800 H Neut % (Auto) 90.4 H Lymph % (Auto) 2.0 L [place] % (Auto) 4.7 Eos % (Auto) 0.1 Baso % (Auto) 1.0 Absolute Neuts (auto) 27.0 H Absolute Lymphs (auto) 0.59 L Total Counted Not Reportable Diff Path Review May foll Platelet Estimate MKD INC Plt Morphology Comment GIANT Polychromasia 1+ Anisocytosis 2+ Microcytosis 1+ Ovalocytes RARE Sodium 139 Potassium 4.5 Chloride 109 H Carbon Dioxide 23.0 Anion Gap 7 BUN 13 Creatinine 0.79 Estim Creat Clear Calc 44.71 Est GFR (MDRD) Af Amer 122 Est GFR (MDRD) Non-Af 101 BUN/Creatinine Ratio 16.4 Glucose 94 Calcium 8.5 Medical Necessity - Tobacco Use Smoking Status: Former smoker Assessment/Plan Active and Suspected Problems (Last Reviewed 05/03/17 @ 09:16 by Carmen Graham) Enteritis (Acute) Ileus (Acute) Leukocytosis (Acute) JULIANA (acute kidney injury) (Acute) Dysphagia (Acute) Foreign body in esophagus (Acute) 77-year-old male with esophageal stricture 1. Patient is having swallow study tomorrow. I would encourage that the stomach be imaged as well to see how much stomach is left as the patient has had ulcer surgery with partial gastrectomy in the past. I would advocate for PEG tube if possible as I do not believe dilating the stricture would be a good idea with a history of radiation. Yang Becerril MD Pager: [facility] [address] [place] [address], [address] [place] [address] Office:
[2017-09-17] VITALS (9 sets, daily range): BP systolic 119–142; BP diastolic 71–84; PULSE 94–110; RESP 18–20; TEMP 36.7–37.1; O2SAT 92–95
[2017-09-17] MEDS: Ipratropium/Albuterol Sulfate 3 ML AMPUL.NEB INHALATION ×5 (06:33→23:06)
[2017-09-17 06:44] LABS: Anion Gap 6 (5-15); BUN 11 mg/dL (7-18); BUN/Creat Ratio 14.5 RATIO (10-20); Calcium,Total 8.3 mg/dL (8.5-10.1); Chloride 108 mmol/L (98-107); Creatinine, Serum 0.76 mg/dL (0.70-1.30); EST Glomerular Filtration Rate 105 mL/min (>60); Est Glom Filt Rate - Afr Amer 128 mL/min (>60); Estimated Creatinine Clearance 44.71 ml/min; Glucose 78 mg/dL (74-106); Potassium 4.4 mmol/L (3.5-5.1); Sodium Level 137 mmol/L (136-145)
[2017-09-17 07:12] LABS: Absolute Neutrophil Count 21.6 X10^3/uL (2.0-7.7); Basophil# 0.56 X10^3/uL; Basophil% 2.2 % (0-1); Eosinophil# 0.86 X10^3/uL; Eosinophils% 3.3 % (0-5); Hematocrit 39.8 % (40-54); Hemoglobin 11.5 g/dl (13.0-16.5); Lymphocyte % 3.1 % (19-41); Mean Corp Hgb Conc 28.9 g/gl (32-36); Mean Corpuscular Hgb 17.6 pg (27.0-32.0); Mean Corpuscular Volume 60.8 fL (80-94); Mean Platelet Vol. 8.8 fl (6.2-12.0); Monocyte# 1.46 X10^3/uL; Monocyte% 5.7 % (0-10); Neutrophil # 21.56 X10^3/uL (2.7-7.7); Neutrophil % 83.9 % (47-70); RBC Distribution Width CV 21.5 % (11.6-14.6); RBC Distribution Width SD 43.8 fl (35.1-43.9); Red Blood Count 6.55 M/mm3 (4.6-6.2); White Blood Count 25.7 K/mm3 (4.4-11.0)
[2017-09-17 07:19] LABS: Differential Indicated SCAN CRITERIA MET; POSITIVE COUNT NO; POSITIVE DIFFERENTIAL NO; POSITIVE MORPHOLOGY NO; Platelet Count 1390 K/mm3 (150-450)
[2017-09-17 07:29] LABS: Anisocytosis 2+; Microcytosis 4+; Platelet Estimate MKD INC (ADEQ)
[2017-09-17 07:30] LABS: Schistocytes 2+
[2017-09-17 07:31] LABS: Crenated RBC 2+; Ovalocyte 1+
--- NOTE | 2017-09-17 08:10 | PCM.PN.HOSP ---
Patient Problems: Active and Suspected Problems (Last Reviewed 05/03/17 @ 09:16 by Carmen Graham) Enteritis (Acute) Ileus (Acute) Leukocytosis (Acute) JULIANA (acute kidney injury) (Acute) Dysphagia (Acute) Foreign body in esophagus (Acute) Subjective: Patient is a 77-year-old gentleman with multiple comorbidities including COPD, throat cancer in August 2016 for which he received radiation therapy history of partial gastrectomy on account of bleeding ulcer presented with shortness of breath with associated nausea but no vomiting. An assessment of acute enteritis made treated symptomatically. Patient was also found to have an impacted foreign body attributed to suspected pill esophagitis versus obstruction. Patient underwent EGD the scope apparently could not be advanced beyond the suspected area of stricture Objective: GENERAL: cooperative HEENT: Clear conjunctiva, NECK; supple, normal thyroid, no distended JVD. CHEST: Diminished to auscultation bilaterally, HEART: Regular S1 S2, no audible murmurs ABDOMEN: soft, non-tender, normoactive bowel sounds, RECTAL: deferred EXTREMITIES: No edema, no clubbing, no cyanosis. 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 SKIN: No Rash Vitals/I&O's: Vital Signs Temp Pulse Resp BP Pulse Ox 98.1 F 110 H 18 119/72 92 09/17/17 02:36 09/17/17 06:33 09/17/17 06:33 09/17/17 02:36 09/17/17 06:33 Oxygen Flow Rate (L/min) 1 Oxygen Delivery Method Nasal Cannula Weight: 51.1 kg Body Mass Index (BMI) 15.7 Intake and Output for Last 24 Hours 09/15/17 09/16/17 09/17/17 23:59 23:59 23:59 Intake Total 2384 / 2384 2413 / 2413 1185 / 1185 Output Total 450 / 450 975 / 975 880 / 880 Balance 1934 / 1934 1438 / 1438 305 / 305 Microbiology Past 72 Hours 09/16/17 11:00 Sputum, Expectorated/Coughed Gram Stain - Final Laboratory Results 09/17/17 05:54: WBC 25.7 H, RBC 6.55 H, Hgb 11.5 L, Hct 39.8 L, MCV 60.8 L, MCH 17.6 L, MCHC 28.9 L, RDW 21.5 H, RDW Differential 43.8, Plt Count 1390 H*, MPV 8.8, Immature Gran % (Auto) 1.800 H, Neut % (Auto) 83.9 H, Lymph % (Auto) 3.1 L, [place] % (Auto) 5.7, Eos % (Auto) 3.3, Baso % (Auto) 2.2 H, Absolute Neuts (auto) 21.6 H, Absolute Lymphs (auto) 0.80 L, Total Counted Not Reportable, Differential Comment , Diff Path Review May foll, Platelet Estimate MKD INC, RBC Morphology 2+, Anisocytosis 2+, Microcytosis 4+, Ovalocytes 1+, Schistocytes 2+ H 09/17/17 05:54: Sodium 137, Potassium 4.4, Chloride 108 H, Carbon Dioxide 23.0, Anion Gap 6, BUN 11, Creatinine 0.76, Estim Creat Clear Calc 44.71, Est GFR (MDRD) Af Amer 128, Est GFR (MDRD) Non-Af 105, BUN/Creatinine Ratio 14.5, Glucose 78, Calcium 8.3 L Current Medications Acetaminophen (Tylenol) 650 mg PO Q6H PRN PRN PRN Reason: Mild Pain (1-3)/Temp > 100.7 F Albuterol Sulfate (Ventolin Aerosols) 2.5 mg INHALATION Q2H PRN PRN PRN Reason: SOB &/OR WHEEZING Albuterol/Ipratropium (Duoneb) 3 ml INHALATION Q4HWA.RT [facility] Last Admin: 09/17/17 06:33 Dose: 3 ml Enoxaparin Sodium (Lovenox) 30 mg SC DAILY@1000 [facility] Last Admin: 09/16/17 09:25 Dose: 30 mg Ciprofloxacin (Cipro) 200 mg in 100 mls @ 100 mls/hr IV Q12 [facility] Last Admin: 09/16/17 22:34 Dose: 100 mls/hr Potassium Chloride/Sodium Chloride (Kcl 20meq In 0.45% Ns 1000ml) 1,000 mls @ 100 mls/hr IV .Q10H [facility] Last Admin: 09/17/17 03:19 Dose: 100 mls/hr Metronidazole (Flagyl) 500 mg in 100 mls @ 100 mls/hr IV Q8 [facility] Last Admin: 09/17/17 06:28 Dose: 100 mls/hr Magnesium Hydroxide (Milk Of Magnesia) 30 ml PO DAILY PRN PRN PRN Reason: Constipation Morphine Sulfate () 2 - 4 mg IV Q4H PRN PRN PRN Reason: MOD-SEVERE PAIN (4-10/10) Ondansetron HCl (Zofran) 4 mg IV Q8H PRN PRN PRN Reason: NAUSEA Last Admin: 09/15/17 00:48 Dose: 4 mg Sodium Chloride () 5 - 30 ml IV UD PRN PRN Reason: SALINE FLUSH Last Admin: 09/14/17 15:22 Dose: 5 ml Medical Necessity - Tobacco Use Smoking Status: Former smoker Assessment/Plan Active and Suspected Problems (Last Reviewed 05/03/17 @ 09:16 by Carmen Graham) Enteritis (Acute) Ileus (Acute) Leukocytosis (Acute) JULIANA (acute kidney injury) (Acute) Dysphagia (Acute) Foreign body in esophagus (Acute) Patient is a 77-year-old gentleman with multiple comorbidities including COPD, throat cancer in August 2016 for which he received radiation therapy history of partial gastrectomy on account of bleeding ulcer presented with shortness of breath with associated nausea but no vomiting. An assessment of acute enteritis made treated symptomatically. Patient was also found to have an impacted foreign body attributed to suspected pill esophagitis versus obstruction. Patient underwent EGD the scope apparently could not be advanced beyond the suspected area of stricture 1. Acute hypoxic respiratory failure secondary to COPD exacerbation imaging studies obtained on admission demonstrated COPD/emphysema with bronchiectasis as well as Findings concerning for developing infiltrate or mass in the right midlung field. Evaluation with CT ordered. On ciprofloxacin in addition to bronchodilator treatment systemic steroids 2. Acute enteritis suspected to be viral enteritis treated symptomatically 3. Suspected esophageal stricture and underwent EGD by Dr. Becerril the scope apparently could not be advanced beyond the suspected area of stricture patient scheduled to undergo upper GI swallow study this a.m. 4. Right mid lung mass CT of the chest with contrast ordered for subsequent evaluation as recommended by radiology 5. Acute kidney injury resolved 6. Thrombocytosis possibly reactive patient has anemia with microcytosis; plan is to refer patient to oncology as outpatient 7. DVT Prophylaxis; enoxaparin 8. Severe protein calorie malnutrition as evidenced by patient low BMI of 15.7, decreased energy level and muscle wasting consultation placed to podiatry Clinical Impression(s) from Imaging Studies Abdomen/Pelvis CT 09/13/17 19:22 IMPRESSION: 1. Nonspecific bowel gas pattern with scattered fluid filled loops of small bowel with scattered air-fluid levels however, no dilation. Gaseous distended loops of colon with fecal retention. Normal appendix. Findings could be related to enteritis/early ileus. 2. Mild to moderate splenomegaly. Electronically Signed: Papi Gleason DO at 21:09 EDT Tel , Service support , Chest X-Ray 09/13/17 20:22 IMPRESSION: COPD/emphysema with bronchiectasis. Findings concerning for developing infiltrate or mass in the right midlung field. Consider short-term follow-up or further evaluation with CT. at 2155 Reported and signed by: Cinthya Beck MD Electronically Signed: Cinthya Beck MD at 21:53 EDT Tel , Service support , Abdomen X-Ray 09/14/17 05:55 IMPRESSION: Normal bowel gas pattern. No free air is detected. Electronically Signed: Dawit Mason MD at 5:54 EDT Tel , Service support , Chest X-Ray 09/14/17 18:00 IMPRESSION: Interstitial prominence in the lungs. Granulomatous nodules of the right upper lobe and granulomatous hilar calcifications. No radiopaque foreign body. Electronically Signed: Anish Kaur DO at 19:54 EDT Tel [phone], Service support , KUB X-Ray 09/14/17 18:05 IMPRESSION: No radiopaque foreign body seen. Please note that medication may not be radiopaque. at 1911 Reported and signed by: Cinthya Beck MD Electronically Signed: Cinthya Beck MD at 19:10 EDT Tel , Service support , Abdomen X-Ray 09/15/17 04:40 IMPRESSION: Small bowel ileus Electronically Signed: Flako Zheng MD at 10:31 EDT , Service support , Chest X-Ray 09/15/17 09:04 IMPRESSION: No interval change Electronically Signed: Flako Zheng MD at 10:28 EDT , Service support , Active Medications Acetaminophen (Tylenol) 650 mg PO Q6H PRN PRN PRN Reason: Mild Pain (1-3)/Temp > 100.7 F Albuterol Sulfate (Ventolin Aerosols) 2.5 mg INHALATION Q2H PRN PRN PRN Reason: SOB &/OR WHEEZING Albuterol/Ipratropium (Duoneb) 3 ml INHALATION Q4HWA.RT [facility] Last Admin: 09/17/17 06:33 Dose: 3 ml Enoxaparin Sodium (Lovenox) 30 mg SC DAILY@1000 [facility] Last Admin: 09/16/17 09:25 Dose: 30 mg Ciprofloxacin (Cipro) 200 mg in 100 mls @ 100 mls/hr IV Q12 [facility] Last Admin: 09/16/17 22:34 Dose: 100 mls/hr Potassium Chloride/Sodium Chloride (Kcl 20meq In 0.45% Ns 1000ml) 1,000 mls @ 100 mls/hr IV .Q10H [facility] Last Admin: 09/17/17 03:19 Dose: 100 mls/hr Metronidazole (Flagyl) 500 mg in 100 mls @ 100 mls/hr IV Q8 [facility] Last Admin: 09/17/17 06:28 Dose: 100 mls/hr Magnesium Hydroxide (Milk Of Magnesia) 30 ml PO DAILY PRN PRN PRN Reason: Constipation Morphine Sulfate () 2 - 4 mg IV Q4H PRN PRN PRN Reason: MOD-SEVERE PAIN (4-10/10) Ondansetron HCl (Zofran) 4 mg IV Q8H PRN PRN PRN Reason: NAUSEA Last Admin: 09/15/17 00:48 Dose: 4 mg Sodium Chloride () 5 - 30 ml IV UD PRN PRN Reason: SALINE FLUSH Last Admin: 09/14/17 15:22 Dose: 5 ml Code Visit Inpatient E&M: 16580 Subs Hosp L3
--- NOTE | 2017-09-17 08:11 | CT_ITS ---
STUDY: CT CHEST WITH CONTRAST REASON FOR EXAM: Male, 77 years old. The patient has a history of a pulmonary nodule. Vocal cords and tongue cancer. RADIATION DOSAGE (If Supplied By Facility): CTDIvol = ( 9.48 ) mGy, DLP = ( 222.96 ) mGycm TECHNIQUE: Transaxial imaging was performed following intravenous administration of 100 ml of Isovue 300 contrast material. Multiplanar coronal and sagittal images were reformatted. Individualized dose optimization techniques were used for this CT. COMPARISON: Comparison is made with prior study dated November 15, 2016. FINDINGS: Small bilateral pleural effusions. Bibasilar atelectasis and/or early infiltrate superimposed on chronic interstitial scarring. Increased interstitial markings are also seen in the posterior aspect of the right upper lobe suggestive scarring. There is evidence of emphysematous changes in the upper lobes. Focal linear scarring is also seen in the left apex. There is a faint nodular density measuring 7.6 mm in the anterior aspect of the right upper lobe as seen on image #79 on the axial images. There are calcifications of the coronary arteries. Normal mediastinum. Enlarged right hilar lymph node measuring 2.3 cm. This is unchanged. Normal enhanced pulmonary arteries. There is atherosclerotic calcification of the aortic arch . There are multi-level degenerative changes of the thoracic spine. There is no demonstrated abnormality of the visualized upper abdomen. CT/Chest WITH Contrast IMPRESSION: Small bilateral pleural effusions with underlying bibasilar atelectasis and/or infiltrate superimposed on scarring in the lower lobes as well as in the upper lobes. Faint nodular density in the anterior aspect of the right upper lobe. Electronically Signed: Jr Desai MD at 12:54 EDT Tel [phone], Service support ,
--- NOTE | 2017-09-17 08:20 | PN_ITS ---
Patient Problems: Active and Suspected Problems (Last Reviewed 05/03/17 @ 09:16 by Carmen Graham ) Enteritis (Acute) Ileus (Acute) Leukocytosis (Acute) JULIANA (acute kidney injury) (Acute) Dysphagia (Acute) Foreign body in esophagus (Acute) Subjective: Patient is a 77-year-old gentleman with multiple comorbidities including COPD, throat cancer in August 2016 for which he received radiation therapy history of partial gastrectomy on account of bleeding ulcer presented with shortness of breath with associated nausea but no vomiting. An assessment of acute enteritis made treated symptomatically. Patient was also found to have an impacted foreign body attributed to suspected pill esophagitis versus obstruction. Patient underwent EGD the scope apparently could not be advanced beyond the suspected area of stricture Objective: GENERAL: cooperative HEENT: Clear conjunctiva, NECK; supple, normal thyroid, no distended JVD. CHEST: Diminished to auscultation bilaterally, HEART: Regular S1 S2, no audible murmurs ABDOMEN: soft, non-tender, normoactive bowel sounds, RECTAL: deferred EXTREMITIES: No edema, no clubbing, no cyanosis. 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 SKIN: No Rash Vitals/I&O's: Vital Signs Temp Pulse Resp BP Pulse Ox 98.1 F 110 H 18 119/72 92 09/17/17 02:36 09/17/17 06:33 09/17/17 06:33 09/17/17 02:36 09/17/17 06:33 Oxygen Flow Rate (L/min) 1 Oxygen Delivery Method Nasal Cannula Weight: 51.1 kg Body Mass Index (BMI) 15.7 Intake and Output for Last 24 Hours 09/15/17 09/16/17 09/17/17 23:59 23:59 23:59 Intake Total 2384 / 2384 2413 / 2413 1185 / 1185 Output Total 450 / 450 975 / 975 880 / 880 Balance 1934 / 1934 1438 / 1438 305 / 305 Microbiology Past 72 Hours 09/16/17 11:00 Sputum, Expectorated/Coughed Gram Stain - Final Laboratory Results 09/17/17 05:54: WBC 25.7 H, RBC 6.55 H, Hgb 11.5 L, Hct 39.8 L, MCV 60.8 L, MCH 17.6 L, MCHC 28.9 L, RDW 21.5 H, RDW Differential 43.8, Plt Count 1390 H*, MPV 8.8, Immature Gran % (Auto) 1.800 H, Neut % (Auto) 83.9 H, Lymph % (Auto) 3.1 L , [place] % (Auto) 5.7, Eos % (Auto) 3.3, Baso % (Auto) 2.2 H, Absolute Neuts (auto ) 21.6 H, Absolute Lymphs (auto) 0.80 L, Total Counted Not Reportable, Differential Comment , Diff Path Review May foll, Platelet Estimate MKD INC, RBC Morphology 2+, Anisocytosis 2+, Microcytosis 4+, Ovalocytes 1+, Schistocytes 2+ H 09/17/17 05:54: Sodium 137, Potassium 4.4, Chloride 108 H, Carbon Dioxide 23.0, Anion Gap 6, BUN 11, Creatinine 0.76, Estim Creat Clear Calc 44.71, Est GFR ( MDRD) Af Amer 128, Est GFR (MDRD) Non-Af 105, BUN/Creatinine Ratio 14.5, Glucose 78, Calcium 8.3 L Current Medications Acetaminophen (Tylenol) 650 mg PO Q6H PRN PRN PRN Reason: Mild Pain (1-3)/Temp > 100.7 F Albuterol Sulfate (Ventolin Aerosols) 2.5 mg INHALATION Q2H PRN PRN PRN Reason: SOB &/OR WHEEZING Albuterol/Ipratropium (Duoneb) 3 ml INHALATION Q4HWA.RT [facility] Last Admin: 09/17/17 06:33 Dose: 3 ml Enoxaparin Sodium (Lovenox) 30 mg SC DAILY@1000 [facility] Last Admin: 09/16/17 09:25 Dose: 30 mg Ciprofloxacin (Cipro) 200 mg in 100 mls @ 100 mls/hr IV Q12 [facility] Last Admin: 09/16/17 22:34 Dose: 100 mls/hr Potassium Chloride/Sodium Chloride (Kcl 20meq In 0.45% Ns 1000ml) 1,000 mls @ 100 mls/hr IV .Q10H [facility] Last Admin: 09/17/17 03:19 Dose: 100 mls/hr Metronidazole (Flagyl) 500 mg in 100 mls @ 100 mls/hr IV Q8 [facility] Last Admin: 09/17/17 06:28 Dose: 100 mls/hr Magnesium Hydroxide (Milk Of Magnesia) 30 ml PO DAILY PRN PRN PRN Reason: Constipation Morphine Sulfate () 2 - 4 mg IV Q4H PRN PRN PRN Reason: MOD-SEVERE PAIN (4-10/10) Ondansetron HCl (Zofran) 4 mg IV Q8H PRN PRN PRN Reason: NAUSEA Last Admin: 09/15/17 00:48 Dose: 4 mg Sodium Chloride () 5 - 30 ml IV UD PRN PRN Reason: SALINE FLUSH Last Admin: 09/14/17 15:22 Dose: 5 ml Medical Necessity - Tobacco Use Smoking Status: Former smoker Assessment/Plan Active and Suspected Problems (Last Reviewed 05/03/17 @ 09:16 by Carmen Graham ) Enteritis (Acute) Ileus (Acute) Leukocytosis (Acute) JULIANA (acute kidney injury) (Acute) Dysphagia (Acute) Foreign body in esophagus (Acute) Patient is a 77-year-old gentleman with multiple comorbidities including COPD, throat cancer in August 2016 for which he received radiation therapy history of partial gastrectomy on account of bleeding ulcer presented with shortness of breath with associated nausea but no vomiting. An assessment of acute enteritis made treated symptomatically. Patient was also found to have an impacted foreign body attributed to suspected pill esophagitis versus obstruction. Patient underwent EGD the scope apparently could not be advanced beyond the suspected area of stricture 1. Acute hypoxic respiratory failure secondary to COPD exacerbation imaging studies obtained on admission demonstrated COPD/emphysema with bronchiectasis as well as Findings concerning for developing infiltrate or mass in the right midlung field. Evaluation with CT ordered. On ciprofloxacin in addition to bronchodilator treatment systemic steroids 2. Acute enteritis suspected to be viral enteritis treated symptomatically 3. Suspected esophageal stricture and underwent EGD by Dr. Becerril the scope apparently could not be advanced beyond the suspected area of stricture patient scheduled to undergo upper GI swallow study this a.m. 4. Right mid lung mass CT of the chest with contrast ordered for subsequent evaluation as recommended by radiology 5. Acute kidney injury resolved 6. Thrombocytosis possibly reactive patient has anemia with microcytosis; plan is to refer patient to oncology as outpatient 7. DVT Prophylaxis; enoxaparin 8. Severe protein calorie malnutrition as evidenced by patient low BMI of 15.7 , decreased energy level and muscle wasting consultation placed to podiatry Clinical Impression(s) from Imaging Studies Abdomen/Pelvis CT 09/13/17 19:22 IMPRESSION: 1. Nonspecific bowel gas pattern with scattered fluid filled loops of small bowel with scattered air-fluid levels however, no dilation. Gaseous distended loops of colon with fecal retention. Normal appendix. Findings could be related to enteritis/early ileus. 2. Mild to moderate splenomegaly. Electronically Signed: Papi Gleason DO at 21:09 EDT Tel , Service support , Chest X-Ray 09/13/17 20:22 IMPRESSION: COPD/emphysema with bronchiectasis. Findings concerning for developing infiltrate or mass in the right midlung field. Consider short-term follow-up or further evaluation with CT. at 2155 Reported and signed by: Cinthya Beck MD Electronically Signed: Cinthya Beck MD at 21:53 EDT Tel , Service support , Abdomen X-Ray 09/14/17 05:55 IMPRESSION: Normal bowel gas pattern. No free air is detected. Electronically Signed: Dawit Mason MD at 5:54 EDT Tel , Service support , Chest X-Ray 09/14/17 18:00 IMPRESSION: Interstitial prominence in the lungs. Granulomatous nodules of the right upper lobe and granulomatous hilar calcifications. No radiopaque foreign body. Electronically Signed: Anish Kaur DO at 19:54 EDT Tel [phone], Service support , KUB X-Ray 09/14/17 18:05 IMPRESSION: No radiopaque foreign body seen. Please note that medication may not be radiopaque. at 1911 Reported and signed by: Cinthya Beck MD Electronically Signed: Cinthya Beck MD at 19:10 EDT Tel , Service support , Abdomen X-Ray 09/15/17 04:40 IMPRESSION: Small bowel ileus Electronically Signed: Flako Zheng MD at 10:31 EDT , Service support , Chest X-Ray 09/15/17 09:04 IMPRESSION: No interval change Electronically Signed: Flako Zheng MD at 10:28 EDT , Service support , Active Medications Acetaminophen (Tylenol) 650 mg PO Q6H PRN PRN PRN Reason: Mild Pain (1-3)/Temp > 100.7 F Albuterol Sulfate (Ventolin Aerosols) 2.5 mg INHALATION Q2H PRN PRN PRN Reason: SOB &/OR WHEEZING Albuterol/Ipratropium (Duoneb) 3 ml INHALATION Q4HWA.RT [facility] Last Admin: 09/17/17 06:33 Dose: 3 ml Enoxaparin Sodium (Lovenox) 30 mg SC DAILY@1000 [facility] Last Admin: 09/16/17 09:25 Dose: 30 mg Ciprofloxacin (Cipro) 200 mg in 100 mls @ 100 mls/hr IV Q12 [facility] Last Admin: 09/16/17 22:34 Dose: 100 mls/hr Potassium Chloride/Sodium Chloride (Kcl 20meq In 0.45% Ns 1000ml) 1,000 mls @ 100 mls/hr IV .Q10H [facility] Last Admin: 09/17/17 03:19 Dose: 100 mls/hr Metronidazole (Flagyl) 500 mg in 100 mls @ 100 mls/hr IV Q8 [facility] Last Admin: 09/17/17 06:28 Dose: 100 mls/hr Magnesium Hydroxide (Milk Of Magnesia) 30 ml PO DAILY PRN PRN PRN Reason: Constipation Morphine Sulfate () 2 - 4 mg IV Q4H PRN PRN PRN Reason: MOD-SEVERE PAIN (4-10/10) Ondansetron HCl (Zofran) 4 mg IV Q8H PRN PRN PRN Reason: NAUSEA Last Admin: 09/15/17 00:48 Dose: 4 mg Sodium Chloride () 5 - 30 ml IV UD PRN PRN Reason: SALINE FLUSH Last Admin: 09/14/17 15:22 Dose: 5 ml Code Visit Inpatient E&M: 60963 Subs Hosp L3
--- NOTE | 2017-09-17 09:42 | PCM.PN.SRG ---
Patient Problems: Active and Suspected Problems (Last Reviewed 05/03/17 @ 09:16 by Carmen Graham) Enteritis (Acute) Ileus (Acute) Leukocytosis (Acute) JULIANA (acute kidney injury) (Acute) Dysphagia (Acute) Foreign body in esophagus (Acute) Subjective: Patient reports no issues. He is handling secretions well. - Physical Exam General: Alert, Oriented x3, Cooperative HEENT: Atraumatic Neck: No JVD Lungs: Normal air movement Cardiovascular: Regular rate, Regular Rhythm Abdomen: Soft, Non Tender, Non-Distended Vital Signs Temp Pulse Resp BP Pulse Ox 98.1 F 110 H 18 119/72 92 09/17/17 02:36 09/17/17 06:33 09/17/17 06:33 09/17/17 02:36 09/17/17 06:33 Oxygen Flow Rate (L/min) 1 Oxygen Delivery Method Nasal Cannula Weight: 112 lb 10.499 oz Body Mass Index (BMI) 15.7 Intake and Output for Last 24 Hours 09/15/17 09/16/17 09/17/17 23:59 23:59 23:59 Intake Total 2384 / 2384 2413 / 2413 1185 / 1185 Output Total 450 / 450 975 / 975 880 / 880 Balance 1934 / 1934 1438 / 1438 305 / 305 Microbiology Past 72 Hours 09/16/17 11:00 Gram Stain - Final Sputum, Expectorated/Coughed Laboratory Tests Past 24 Hrs 09/17/17 09/17/17 05:54 05:54 WBC 25.7 H RBC 6.55 H Hgb 11.5 L Hct 39.8 L MCV 60.8 L MCH 17.6 L MCHC 28.9 L RDW 21.5 H RDW Differential 43.8 Plt Count 1390 H* MPV 8.8 Immature Gran % (Auto) 1.800 H Neut % (Auto) 83.9 H Lymph % (Auto) 3.1 L [place] % (Auto) 5.7 Eos % (Auto) 3.3 Baso % (Auto) 2.2 H Absolute Neuts (auto) 21.6 H Absolute Lymphs (auto) 0.80 L Total Counted Not Reportable Differential Comment Diff Path Review May foll Platelet Estimate MKD INC RBC Morphology 2+ Anisocytosis 2+ Microcytosis 4+ Ovalocytes 1+ Schistocytes 2+ H Sodium 137 Potassium 4.4 Chloride 108 H Carbon Dioxide 23.0 Anion Gap 6 BUN 11 Creatinine 0.76 Estim Creat Clear Calc 44.71 Est GFR (MDRD) Af Amer 128 Est GFR (MDRD) Non-Af 105 BUN/Creatinine Ratio 14.5 Glucose 78 Calcium 8.3 L Medical Necessity - Tobacco Use Smoking Status: Former smoker Assessment/Plan Active and Suspected Problems (Last Reviewed 05/03/17 @ 09:16 by Carmen Graham) Enteritis (Acute) Ileus (Acute) Leukocytosis (Acute) JULIANA (acute kidney injury) (Acute) Dysphagia (Acute) Foreign body in esophagus (Acute) 77-year-old male with esophageal stricture post radiation 1. The patient is currently n.p.o. I recommend a radiological swallow study with barium swallow. This will assess his stricture of his proximal esophagus. I would also recommend getting an upper GI to see how much stomach his left in case the patient needs a PEG tube. The patient is status post partial gastrectomy years ago. Yang Becerril MD Pager: [facility] [address] [place] [address], [address] [place] [address] Office:
[2017-09-17 11:35] LABS: Pathologist Review Reviewed
[2017-09-17 11:39] LABS: Pathologist Review Reviewed
[2017-09-17] MEDS: Enoxaparin 30 MG/0.3 ML Syringe SC (11:39)
[2017-09-17] MEDS: Ciprofloxacin 200 MG/100 ML BAG 100 MG IV ×2 (11:39→21:02)
[2017-09-17 12:07] LABS: Pathologist Review Reviewed
[2017-09-18] VITALS (7 sets, daily range): BP systolic 141–143; BP diastolic 82–87; PULSE 90–104; RESP 16–24; TEMP 36.9–37.3; O2SAT 92–95
[2017-09-18] MEDS: Ipratropium/Albuterol Sulfate 3 ML AMPUL.NEB INHALATION ×3 (03:16→10:42)
[2017-09-18 06:47] LABS: Mean Corp Hgb Conc 29.5 g/gl (32-36); Mean Corpuscular Hgb 17.7 pg (27.0-32.0); Mean Corpuscular Volume 59.9 fL (80-94); Mean Platelet Vol. 8.7 fl (6.2-12.0); RBC Distribution Width CV 22.3 % (11.6-14.6)
[2017-09-18 06:55] LABS: Red Blood Count 7.35 M/mm3 (4.6-6.2)
[2017-09-18 06:57] LABS: White Blood Count 42.9 K/mm3 (4.4-11.0)
[2017-09-18 06:58] LABS: Platelet Count 1427 K/mm3 (150-450); Scan Indicated on CBC? Y/N YES- FLAGS NOTED
--- NOTE | 2017-09-18 07:36 | PCM.PN.HOSP ---
Patient Problems: Active and Suspected Problems (Last Reviewed 05/03/17 @ 09:16 by Carmen Graham) Enteritis (Acute) Ileus (Acute) Leukocytosis (Acute) JULIANA (acute kidney injury) (Acute) Dysphagia (Acute) Foreign body in esophagus (Acute) Subjective: Could not tolerate her upper GI series on 09/17/2017. Has significant leukocytosis as well as thrombocytosis consultation subsequently placed oncology discussed with patient possibility of being transferred to a tertiary care center for subsequent management he requested to be transferred to [facility] where he has previously received care Objective: GENERAL: cooperative HEENT: Clear conjunctiva, NECK; supple, normal thyroid, no distended JVD. CHEST: Diminished to auscultation bilaterally, HEART: Regular S1 S2, no audible murmurs ABDOMEN: soft, non-tender, normoactive bowel sounds, RECTAL: deferred EXTREMITIES: No edema, no clubbing, no cyanosis. 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 SKIN: No Rash Vitals/I&O's: Vital Signs Temp Pulse Resp BP Pulse Ox 98.4 F 104 H 16 142/82 H 92 09/18/17 03:06 09/18/17 06:43 09/18/17 06:43 09/18/17 03:06 09/18/17 06:43 Oxygen Flow Rate (L/min) 2 Oxygen Delivery Method Nasal Cannula Weight: 51.1 kg Body Mass Index (BMI) 15.7 Intake and Output for Last 24 Hours 09/16/17 09/17/17 09/18/17 23:59 23:59 23:59 Intake Total 2413 / 2413 2265 / 2265 1307 / 1307 Output Total 975 / 975 1480 / 1480 600 / 600 Balance 1438 / 1438 785 / 785 707 / 707 Microbiology Past 72 Hours 09/16/17 11:00 Sputum, Expectorated/Coughed Gram Stain - Final 09/16/17 11:00 Sputum, Expectorated/Coughed Respiratory Culture - Preliminary Presumptive C albicans Laboratory Results 09/15/17 05:55: Diff Path Review Reviewed 09/16/17 05:24: Diff Path Review Reviewed 09/17/17 05:54: Diff Path Review Reviewed 09/18/17 06:25: WBC 42.9 H*, RBC 7.35 H, Hgb 13.0, Hct 44.0, MCV 59.9 L, MCH 17.7 L, MCHC 29.5 L, RDW 22.3 H, RDW Differential 43.0, Plt Count 1427 H*, MPV 8.7, Differential Comment SEE COMMENT, Diff Path Review August09/18/17 06:25: Sodium Pending, Potassium Pending, Chloride Pending, Carbon Dioxide Pending, Anion Gap Pending, BUN Pending, Creatinine Pending, Est GFR (MDRD) Af Amer Pending, Est GFR (MDRD) Non-Af Pending, BUN/Creatinine Ratio Pending, Glucose Pending, Calcium Pending, Magnesium Pending Current Medications Acetaminophen (Tylenol) 650 mg PO Q6H PRN PRN PRN Reason: Mild Pain (1-3)/Temp > 100.7 F Albuterol Sulfate (Ventolin Aerosols) 2.5 mg INHALATION Q2H PRN PRN PRN Reason: SOB &/OR WHEEZING Albuterol/Ipratropium (Duoneb) 3 ml INHALATION Q4HWA.RT [facility] Last Admin: 09/18/17 06:43 Dose: 3 ml Enoxaparin Sodium (Lovenox) 30 mg SC DAILY@1000 INDU Last Admin: 09/17/17 11:39 Dose: 30 mg Ciprofloxacin (Cipro) 200 mg in 100 mls @ 100 mls/hr IV Q12 [facility] Last Admin: 09/17/17 21:02 Dose: 100 mls/hr Potassium Chloride/Sodium Chloride (Kcl 20meq In 0.45% Ns 1000ml) 1,000 mls @ 100 mls/hr IV .Q10H [facility] Last Admin: 09/18/17 05:17 Dose: 100 mls/hr Metronidazole (Flagyl) 500 mg in 100 mls @ 100 mls/hr IV Q8 [facility] Last Admin: 09/18/17 05:17 Dose: 100 mls/hr Pantoprazole Sodium 40 mg/ (Sodium Chloride) 110 mls @ 330 mls/hr IV Q24 [facility] Last Admin: 09/17/17 10:53 Dose: 330 mls/hr Magnesium Hydroxide (Milk Of Magnesia) 30 ml PO DAILY PRN PRN PRN Reason: Constipation Methylprednisolone (Solu-Medrol) 40 mg IV Q8 [facility] Stop: 09/18/17 14:01 Last Admin: 09/18/17 05:17 Dose: 40 mg Morphine Sulfate () 2 - 4 mg IV Q4H PRN PRN PRN Reason: MOD-SEVERE PAIN (4-10/10) Ondansetron HCl (Zofran) 4 mg IV Q8H PRN PRN PRN Reason: NAUSEA Last Admin: 09/15/17 00:48 Dose: 4 mg Sodium Chloride () 5 - 30 ml IV UD PRN PRN Reason: SALINE FLUSH Last Admin: 09/14/17 15:22 Dose: 5 ml Medical Necessity - Tobacco Use Smoking Status: Former smoker Assessment/Plan Active and Suspected Problems (Last Reviewed 05/03/17 @ 09:16 by Carmen Graham) Enteritis (Acute) Ileus (Acute) Leukocytosis (Acute) JULIANA (acute kidney injury) (Acute) Dysphagia (Acute) Foreign body in esophagus (Acute) Patient is a 77-year-old gentleman with multiple comorbidities including COPD, throat cancer in August 2016 for which he received radiation therapy history of partial gastrectomy on account of bleeding ulcer presented with shortness of breath with associated nausea but no vomiting. An assessment of acute enteritis made treated symptomatically. Patient was also found to have an impacted foreign body attributed to suspected pill esophagitis versus obstruction. Patient underwent EGD the scope apparently could not be advanced beyond the suspected area of stricture and did not tolerate upper GI swallow study ordered on 09/17/2017. Did discuss his current condition with him he requested to be transferred to [facility] where he had previously received care. 1. Acute hypoxic respiratory failure secondary to COPD exacerbation imaging studies obtained on admission demonstrated COPD/emphysema with bronchiectasis as well as Findings concerning for developing infiltrate or mass in the right midlung field. Evaluation with CT ordered. On ciprofloxacin in addition to bronchodilator treatment systemic steroids 2. Acute enteritis suspected to be viral enteritis treated symptomatically 3. Suspected esophageal stricture and underwent EGD by Dr. Becerril the scope apparently could not be advanced beyond the suspected area of stricture patient will tolerate upper GI swallow study on 09/17/2017 4. Right mid lung mass CT of the chest with contrast ordered for subsequent evaluation as recommended by radiology 5. Acute kidney injury resolved 6. Thrombocytosis possibly reactive patient has anemia with microcytosis; plan is to refer patient to oncology as outpatient 7. DVT Prophylaxis; enoxaparin 8. Severe protein calorie malnutrition as evidenced by patient low BMI of 15.7, decreased energy level and muscle wasting consultation placed to podiatry Clinical Impression(s) from Imaging Studies Abdomen/Pelvis CT 09/13/17 19:22 IMPRESSION: 1. Nonspecific bowel gas pattern with scattered fluid filled loops of small bowel with scattered air-fluid levels however, no dilation. Gaseous distended loops of colon with fecal retention. Normal appendix. Findings could be related to enteritis/early ileus. 2. Mild to moderate splenomegaly. Electronically Signed: Papi Gleason DO at 21:09 EDT Tel , Service support , Chest X-Ray 09/13/17 20:22 IMPRESSION: COPD/emphysema with bronchiectasis. Findings concerning for developing infiltrate or mass in the right midlung field. Consider short-term follow-up or further evaluation with CT. at 2155 Reported and signed by: Cinthya Beck MD Electronically Signed: Cinthya Beck MD at 21:53 EDT Tel , Service support , Abdomen X-Ray 09/14/17 05:55 IMPRESSION: Normal bowel gas pattern. No free air is detected. Electronically Signed: Dawit Mason MD at 5:54 EDT Tel , Service support , Chest X-Ray 09/14/17 18:00 IMPRESSION: Interstitial prominence in the lungs. Granulomatous nodules of the right upper lobe and granulomatous hilar calcifications. No radiopaque foreign body. Electronically Signed: Anish Kaur DO at 19:54 EDT Tel [phone], Service support , KUB X-Ray 09/14/17 18:05 IMPRESSION: No radiopaque foreign body seen. Please note that medication may not be radiopaque. at 1911 Reported and signed by: Cinthya Beck MD Electronically Signed: Cinthya Beck MD at 19:10 EDT Tel , Service support , Abdomen X-Ray 09/15/17 04:40 IMPRESSION: Small bowel ileus Electronically Signed: Flako Zheng MD at 10:31 EDT , Service support , Chest X-Ray 09/15/17 09:04 IMPRESSION: No interval change Electronically Signed: Flako Zheng MD at 10:28 EDT , Service support , Active Medications Acetaminophen (Tylenol) 650 mg PO Q6H PRN PRN PRN Reason: Mild Pain (1-3)/Temp > 100.7 F Albuterol Sulfate (Ventolin Aerosols) 2.5 mg INHALATION Q2H PRN PRN PRN Reason: SOB &/OR WHEEZING Albuterol/Ipratropium (Duoneb) 3 ml INHALATION Q4HWA.RT [facility] Last Admin: 09/17/17 06:33 Dose: 3 ml Enoxaparin Sodium (Lovenox) 30 mg SC DAILY@1000 [facility] Last Admin: 09/16/17 09:25 Dose: 30 mg Ciprofloxacin (Cipro) 200 mg in 100 mls @ 100 mls/hr IV Q12 [facility] Last Admin: 09/16/17 22:34 Dose: 100 mls/hr Potassium Chloride/Sodium Chloride (Kcl 20meq In 0.45% Ns 1000ml) 1,000 mls @ 100 mls/hr IV .Q10H [facility] Last Admin: 09/17/17 03:19 Dose: 100 mls/hr Metronidazole (Flagyl) 500 mg in 100 mls @ 100 mls/hr IV Q8 INDU Last Admin: 09/17/17 06:28 Dose: 100 mls/hr Magnesium Hydroxide (Milk Of Magnesia) 30 ml PO DAILY PRN PRN PRN Reason: Constipation Morphine Sulfate () 2 - 4 mg IV Q4H PRN PRN PRN Reason: MOD-SEVERE PAIN (4-10/10) Ondansetron HCl (Zofran) 4 mg IV Q8H PRN PRN PRN Reason: NAUSEA Last Admin: 09/15/17 00:48 Dose: 4 mg Sodium Chloride () 5 - 30 ml IV UD PRN PRN Reason: SALINE FLUSH Last Admin: 09/14/17 15:22 Dose: 5 ml Code Visit Inpatient E&M: 61025 Subs Hosp L3
[2017-09-18 07:51] LABS: Anion Gap 17 (5-15); BUN 13 mg/dL (7-18); BUN/Creat Ratio 14.8 RATIO (10-20); Calcium,Total 8.6 mg/dL (8.5-10.1); Chloride 108 mmol/L (98-107); Creatinine, Serum 0.88 mg/dL (0.70-1.30); EST Glomerular Filtration Rate 89 mL/min (>60); Est Glom Filt Rate - Afr Amer 108 mL/min (>60); Estimated Creatinine Clearance 50.81 ml/min; Glucose 113 mg/dL (74-106); Magnesium 2.1 mg/dL (1.6-2.6); Potassium 4.8 mmol/L (3.5-5.1); Sodium Level 141 mmol/L (136-145)
--- NOTE | 2017-09-18 09:05 | PCA ---
Faxed demographics to [facility], per Dr. Meza. [phone]
--- NOTE | 2017-09-18 09:47 | DS.PCM_ITS ---
Discharge Date and Diagnosis - Problem List Patient Problems: Active and Suspected Problems (Last Reviewed 05/03/17 @ 09:16 by Carmen Graham ) Enteritis (Acute) Ileus (Acute) Leukocytosis (Acute) JULIANA (acute kidney injury) (Acute) Dysphagia (Acute) Foreign body in esophagus (Acute) Date of Admission: 09/13/17 Date of Discharge: 09/18/17 - Primary Discharge Diagnosis Active and Suspected Problems (Last Reviewed 05/03/17 @ 09:16 by Carmen Graham ) Enteritis (Acute) Ileus (Acute) Leukocytosis (Acute) JULIANA (acute kidney injury) (Acute) Dysphagia (Acute) Foreign body in esophagus (Acute) - Secondary Discharge Diagnosis Chronic Problems (Last Reviewed 05/03/17 @ 09:16 by Carmen Graham) Hypersomnia (Chronic) COPD (chronic obstructive pulmonary disease) (Chronic) FEV1 51% Nicotine dependence (Chronic) Atypical chest pain (Chronic) History of peptic ulcer disease (Chronic) 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 Nonspecific bowel gas pattern with scattered fluid filled loops of small bowel with scattered air-fluid levels however, no dilation. Gaseous distended loops of colon with fecal retention. Normal appendix. Findings could be related to enteritis/early ileus. 2. Mild to moderate splenomegaly. Electronically Signed: Papi Gleason DO at 21:09 EDT Tel , Service support , KUB X-Ray 09/14/17 18:05 IMPRESSION: No radiopaque foreign body seen. Please note that medication may not be radiopaque. at 1911 Reported and signed by: Cinthya Beck MD Electronically Signed: Cinthya Beck MD at 19:10 EDT Tel , Service support , Abdomen X-Ray 09/15/17 04:40 IMPRESSION: Small bowel ileus Electronically Signed: Flako Zheng MD at 10:31 EDT , Service support , Chest X-Ray 09/15/17 09:04 IMPRESSION: No interval change Electronically Signed: Flako Zheng MD at 10:28 EDT , Service support , Chest CT 09/17/17 08:11 IMPRESSION: Small bilateral pleural effusions with underlying bibasilar atelectasis and/or infiltrate superimposed on scarring in the lower lobes as well as in the upper lobes. Faint nodular density in the anterior aspect of the right upper lobe. Electronically Signed: Jr Desai MD at 12:54 EDT Tel [phone], Service support , 09/16/17 11:00 Sputum, Expectorated/Coughed Gram Stain - Final 09/16/17 11:00 Sputum, Expectorated/Coughed Respiratory Culture - Final Presumptive C albicans Laboratory Results 09/15/17 09/16/17 09/17/17 Range/Units 05:55 05:24 05:54 WBC (4.4-11.0) K/mm3 RBC (4.6-6.2) M/mm3 Hgb (13.0-16.5) g/dl Hct (40-54) % MCV (80-94) fL MCH (27.0-32.0) pg MCHC (32-36) g/gl RDW (11.6-14.6) % RDW Differential (35.1-43.9) fl Plt Count (150-450) K/mm3 MPV (6.2-12.0) fl Differential Comment Diff Path Review Reviewed Reviewed Reviewed Sodium (136-145) mmol/L Potassium (3.5-5.1) mmol/L Chloride (98-107) mmol/L Carbon Dioxide (21.0-32.0) mmol/L Anion Gap (5-15) BUN (7-18) mg/dL Creatinine (0.70-1.30) mg/dL Estim Creat Clear Calc ml/min Est GFR (MDRD) Af Amer (>60) mL/min Est GFR (MDRD) Non-Af (>60) mL/min BUN/Creatinine Ratio (10-20) RATIO Glucose (74-106) mg/dL Calcium (8.5-10.1) mg/dL Magnesium (1.6-2.6) mg/dL 09/18/17 09/18/17 Range/Units 06:25 06:25 WBC 42.9 H* (4.4-11.0) K/mm3 RBC 7.35 H (4.6-6.2) M/mm3 Hgb 13.0 (13.0-16.5) g/dl Hct 44.0 (40-54) % MCV 59.9 L (80-94) fL MCH 17.7 L (27.0-32.0) pg MCHC 29.5 L (32-36) g/gl RDW 22.3 H (11.6-14.6) % RDW Differential 43.0 (35.1-43.9) fl Plt Count 1427 H* (150-450) K/mm3 MPV 8.7 (6.2-12.0) fl Differential Comment SEE COMMENT Diff Path Review August Sodium 141 (136-145) mmol/L Potassium 4.8 (3.5-5.1) mmol/L Chloride 108 H (98-107) mmol/L Carbon Dioxide 16.0 L (21.0-32.0) mmol/L Anion Gap 17 H (5-15) BUN 13 (7-18) mg/dL Creatinine 0.88 (0.70-1.30) mg/dL Estim Creat Clear Calc 50.81 ml/min Est GFR (MDRD) Af Amer 108 (>60) mL/min Est GFR (MDRD) Non-Af 89 (>60) mL/min BUN/Creatinine Ratio 14.8 (10-20) RATIO Glucose 113 H (74-106) mg/dL Calcium 8.6 (8.5-10.1) mg/dL Magnesium 2.1 (1.6-2.6) mg/dL Operations: None Summary of Care Provided: Patient is a 77-year-old gentleman with multiple comorbidities including COPD, throat cancer in August 2016 for which he received radiation therapy history of partial gastrectomy on account of bleeding ulcer presented with shortness of breath with associated nausea but no vomiting. An assessment of acute enteritis made treated symptomatically. Patient was also found to have an impacted foreign body attributed to suspected pill esophagitis versus obstruction. Patient underwent EGD the scope apparently could not be advanced beyond the suspected area of stricture and did not tolerate upper GI swallow study ordered on 09/17/2017. Did discuss his current condition with him he requested to be transferred to [facility] where he had previously received care. 1. Acute hypoxic respiratory failure secondary to COPD exacerbation suspected aspiration pneumonia imaging studies obtained on admission demonstrated COPD/ emphysema with bronchiectasis as well as Findings concerning for developing infiltrate or mass in the right midlung field. Evaluation with CT ordered. With ciprofloxacin as well as Zosyn as stated above patient was transferred to [facility] 2. Acute enteritis suspected to be viral enteritis treated symptomatically 3. Suspected esophageal stricture and underwent EGD by Dr. Becerril the scope apparently could not be advanced beyond the suspected area of stricture patient will tolerate upper GI swallow study on 09/17/2017 4. Right mid lung mass CT of the chest with contrast ordered for subsequent evaluation as recommended by radiology 5. Acute kidney injury resolved 6. Thrombocytosis possibly reactive patient has anemia with microcytosis; 7. DVT Prophylaxis; enoxaparin 8. Severe protein calorie malnutrition as evidenced by patient low BMI of 15.7 , decreased energy level and muscle wasting consultation placed to [place] Home Medications: Medications to take at Discharge Albuterol Inhaler [Ventolin Hfa] 1 - 2 puff INHALATION Q4H PRN PRN 01/02/14 Tiotropium [place] [Spiriva 18 MCG] 1 puff INHALATION DAILY 01/02/14 Albuterol Aerosols [Ventolin Aerosols] 2.5 mg INHALATION Q2H PRN PRN #1 box Ipratropium/Albuterol Sulfate [Duoneb] 3 ml INHALATION [id number] #1 box Nebulizer [Lc Plus] 1 ea MC UD #1 ea 11/17/16 tiotropium 2.5 mcg-olodaterol 2.5 mcg/actuation mist for inhalation 2 inh INHALATION QDAY #4 g 08/14/17 Doxycycline 100 mg PO DAILY 09/13/17 Primary Care Physician: Varun Wang MD [Primary Care Provider] - Medical Necessity - Tobacco Use Smoking Status: Former smoker Meaningful Use Info Meaningful Use Diagnoses (Choose all that apply): None applicable Code Visit Inpatient E&M: 15566 Disch Hosp
[2017-09-18] MEDS: Ciprofloxacin 200 MG/100 ML BAG 100 MG IV (09:53)
[2017-09-18] MEDS: Enoxaparin 30 MG/0.3 ML Syringe SC (09:54)
--- NOTE | 2017-09-18 10:35 | PCM.PN.SRG ---
Patient Problems: Active and Suspected Problems (Last Reviewed 05/03/17 @ 09:16 by Carmen Graham) Enteritis (Acute) Ileus (Acute) Leukocytosis (Acute) JULIANA (acute kidney injury) (Acute) Dysphagia (Acute) Foreign body in esophagus (Acute) Subjective: Patient reported he could not tolerate his swallow study yesterday. - Physical Exam General: Alert, Oriented x3, Cooperative HEENT: Atraumatic, PERRLA, EOMI Oral: Moist Mucosa Lungs: Normal air movement Cardiovascular: Regular rate, Regular Rhythm Abdomen: Soft, Non Tender, Non-Distended Vital Signs Temp Pulse Resp BP Pulse Ox 99.1 F 94 24 H 143/86 H 94 09/18/17 08:37 09/18/17 08:39 09/18/17 08:39 09/18/17 08:37 09/18/17 08:39 Oxygen Flow Rate (L/min) 2 Oxygen Delivery Method Nasal Cannula Weight: 112 lb 10.499 oz Body Mass Index (BMI) 15.7 Intake and Output for Last 24 Hours 09/16/17 09/17/17 09/18/17 23:59 23:59 23:59 Intake Total 2413 / 2413 2265 / 2265 1307 / 1307 Output Total 975 / 975 1480 / 1480 600 / 600 Balance 1438 / 1438 785 / 785 707 / 707 Microbiology Past 72 Hours 09/16/17 11:00 Gram Stain - Final Sputum, Expectorated/Coughed Respiratory Culture - Final Presumptive C albicans Laboratory Tests Past 24 Hrs 09/15/17 09/16/17 09/17/17 05:55 05:24 05:54 WBC RBC Hgb Hct MCV MCH MCHC RDW RDW Differential Plt Count MPV Differential Comment Diff Path Review Reviewed Reviewed Reviewed Sodium Potassium Chloride Carbon Dioxide Anion Gap BUN Creatinine Estim Creat Clear Calc Est GFR (MDRD) Af Amer Est GFR (MDRD) Non-Af BUN/Creatinine Ratio Glucose Calcium Magnesium 09/18/17 09/18/17 06:25 06:25 WBC 42.9 H* RBC 7.35 H Hgb 13.0 Hct 44.0 MCV 59.9 L MCH 17.7 L MCHC 29.5 L RDW 22.3 H RDW Differential 43.0 Plt Count 1427 H* MPV 8.7 Differential Comment SEE COMMENT Diff Path Review May foll Sodium 141 Potassium 4.8 Chloride 108 H Carbon Dioxide 16.0 L Anion Gap 17 H BUN 13 Creatinine 0.88 Estim Creat Clear Calc 50.81 Est GFR (MDRD) Af Amer 108 Est GFR (MDRD) Non-Af 89 BUN/Creatinine Ratio 14.8 Glucose 113 H Calcium 8.6 Magnesium 2.1 Medical Necessity - Tobacco Use Smoking Status: Former smoker Assessment/Plan Active and Suspected Problems (Last Reviewed 05/03/17 @ 09:16 by Carmen Graham) Enteritis (Acute) Ileus (Acute) Leukocytosis (Acute) JULIANA (acute kidney injury) (Acute) Dysphagia (Acute) Foreign body in esophagus (Acute) 77-year-old male with esophageal stricture 1. I did an EGD a few days ago to remove a foreign body stuck in his proximal esophageal stricture. I was able to advance the scope through the stricture but I did not advance past the midesophagus for fear of damage to the esophageal stricture. The stricture was very snug around the scope meaning that it was only 9 mm in diameter 2. I am not comfortable dilating this is the patient has a history of radiation the stricture was very tight and friable. I did offer the patient PEG tube but this would also be complicated as the patient has had a partial gastrectomy in the past and I am unsure about scar tissue and how much stomach his left. He may need an IR guided feeding tube for nutrition. Yang Becerril MD Pager: [facility] [address] [place] [address], [address] [place] [address] Office:
--- NOTE | 2017-09-18 10:59 | NURSING ---
[facility] called with bed assignment, G81 bed 33. Phone number for report [phone] Dang. Olga RODRIGUEZ aware.
[2017-09-18] MEDS: Piperacil/Tazobactam 3.375 GM/50 ML ML IV (11:13)
--- NOTE | 2017-09-18 11:51 | NURSING ---
report called to ja whalen at [facility] G81 bed 33
[2017-09-18 12:58] LABS: Pathologist Review Reviewed
== END 2017-09-18 13:58 | disposition short-term general hospital (02) | DRG 391 ==
LOC: ED 19:25 → MS3 22:48
PROVIDERS: Internal Medicine; Physician Assistant; Surgery; Emergency Provider Emergency Medicine; Family Provider Internal Medicine; PCP Internal Medicine; Visit Provider Internal Medicine
PROC: 0DJ08ZZ Inspection of Upper Intestinal Tract, Via Natural or Artificial Opening Endoscopic (ICD-10-PCS; CPT 43235; principal; 2017-09-14 19:00)
DX: A08.4 Viral intestinal infection, unspecified (principal); E43 Unspecified severe protein-calorie malnutrition; J96.01 Acute respiratory failure with hypoxia; J69.0 Pneumonitis due to inhalation of food and vomit; N17.9 Acute kidney failure, unspecified; J44.1 Chronic obstructive pulmonary disease with (acute) exacerbation; Z68.1 Body mass index [BMI] 19.9 or less, adult; K56.7 Ileus, unspecified; R91.8 Other nonspecific abnormal finding of lung field; T18.108A Unspecified foreign body in esophagus causing other injury, initial encounter; J44.9 Chronic obstructive pulmonary disease, unspecified; R16.1 Splenomegaly, not elsewhere classified; D47.3 Essential (hemorrhagic) thrombocythemia; K20.8 Other esophagitis; D50.9 Iron deficiency anemia, unspecified; K22.2 Esophageal obstruction; T50.905A Adverse effect of unspecified drugs, medicaments and biological substances, initial encounter; Z87.891 Personal history of nicotine dependence; Z85.21 Personal history of malignant neoplasm of larynx; Z87.11 Personal history of peptic ulcer disease; Z92.3 Personal history of irradiation; Z90.3 Acquired absence of stomach [part of]
CPT/HCPCS: 36415; 36600; 71045; 71260; 74018; 74019; 74177; 80048; 80076; 82728; 82803; 83540; 83550; 83605; 83690; 83735; 84484; 85025; 85027; 85610; 87070; 87205; 92507; 92526; 93005; 94002; 94640; 97110; 97162; 97165; 97530; 97802; 99285; J1756; J7040; Q9967; A4216; J0744; J2405

== ENCOUNTER 2017-09-23 14:29 | Inpatient (IN) | payer OTHER, MEDICARE, SELFPAY ==
[2017-09-23] VITALS (8 sets, daily range): BP systolic 165–179; BP diastolic 88–95; PULSE 89–106; RESP 18–23; TEMP 36.5–36.9; O2SAT 92–97; BMI 17.1; BMI 16.9
--- NOTE | 2017-09-23 15:17 | CT_ITS ---
STUDY: CT CHEST WITHOUT CONTRAST REASON FOR EXAM: Male, 77 years old. Midabdominal pain, nausea and vomiting RADIATION DOSAGE (If Supplied By Facility): CTDIvol = ( 5.87 ) mGy, DLP = ( 221.27 ) mGycm TECHNIQUE: Transaxial imaging was performed without the administration of intravenous contrast material. Individualized dose optimization techniques were used for this CT. COMPARISON: Previous study of 09/17/2017 FINDINGS: There are diffuse emphysematous changes of the lungs. There is a small focus of scarring of the posterior right upper lobe. There are small bibasilar pleural effusions. There are mild atelectatic changes of the lung bases. There is a 5 mm nodule of the right lower lobe axial image 75, decreased in size from the previous study. The heart size is within normal limits. There is a trace pericardial effusion, increased from the previous study. There are calcified right mediastinal and hilar nodes. There is an enlarged right hilar node measuring approximately 2.4 cm, appearing similar to the previous study. Normal unenhanced pulmonary arteries. There are calcified plaques of the thoracic aorta. There is no evidence of thoracic aortic aneurysm. There is a slightly increased thoracic kyphosis. Abdominal findings are reported separately. CT/Chest without Contrast IMPRESSION: 1. Diffuse emphysematous changes of the lungs. 2. Small focus of scarring of the posterior right upper lobe, stable in the interval. 3. Small bibasilar pleural effusions similar to the previous study. 4. There are mild atelectatic changes of the lung bases, stable in the interval. 5. 5 mm nodule of the right lower lobe axial image 75, decreased in size in the previous study. 6. Trace pericardial effusion, increased from the previous study. 7. Calcified right hilar and mediastinal nodes. Enlarged right hilar node measuring approximately 2.4 cm, stable in the interval. Electronically Signed: Jassi Smtih MD at 16:47 EDT , Service support ,
--- NOTE | 2017-09-23 15:17 | CT_ITS ---
STUDY: CT ABDOMEN AND PELVIS WITHOUT CONTRAST REASON FOR EXAM: Male, 77 years old. Mid abdominal pain, nausea and vomiting RADIATION DOSAGE (If Supplied By Facility): CTDIvol = ( 7.65 ) mGy, DLP = ( 388.40 ) mGycm TECHNIQUE: Transaxial images were obtained from the dome of the diaphragm to the symphysis pubis with oral contrast, and without intravenous contrast. Sagittal and coronal images were reconstructed. Individualized dose optimization techniques were used for this CT. COMPARISON: Previous study of 09/13/2017 FINDINGS: There are emphysematous changes of the lung bases. There is minimal bibasilar atelectasis. There are small bilateral pleural effusions representing a new interval finding. There is a trace pericardial effusion increased from the previous study. Normal liver. Normal gallbladder and extrahepatic biliary system. There is moderate splenic megaly. Calcified splenic granulomas are present. Normal pancreas. Normal bilateral adrenal glands. Normal right kidney. Normal left kidney. Surgical clips are seen in the region of the GE junction. Normal small intestine. Normal colon. The appendix is visualized and appears normal. There are calcified plaques of the abdominal aorta. Normal inferior vena cava. Normal retroperitoneum. Normal urinary bladder. There is a small amount of free fluid in the deep pelvis. Normal abdominal wall. There is a Schmorl's node of the inferior endplate of L3 which is no clinical significance. CT/Abdomen/Pelvis without Cont IMPRESSION: 1. Emphysematous changes of the lung bases. Minimal bibasilar atelectasis, new in the interval. 2. Small bilateral pleural effusions representing a new interval finding. 3. Trace pericardial effusion, increased from the previous study. 4. Moderate splenomegaly. Calcified splenic granulomas are present. 5. There is a small amount of free fluid in the deep pelvis, also new in the interval. Electronically Signed: Jassi Smith MD at 16:35 EDT , Service support ,
--- NOTE | 2017-09-23 15:17 | EKG12_ITS ---
Test Reason : ABD PAIN Blood Pressure : / mmHG Vent. Rate : 095 BPM Atrial Rate : 095 BPM P-R Int : 124 ms QRS Dur : 082 ms QT Int : 370 ms P-R-T Axes : 037 -22 079 degrees QTc Int : 464 ms Normal sinus rhythm Nonspecific T wave abnormality Abnormal ECG Confirmed by EDER MARQUEZ, MAURA ([id number]), editorial manager NICKY JOLLEY ([id number] on 09/26/2017 2:45:02 PM Referred By: JESSE Confirmed By:MAURA GAINES MD
[2017-09-23] MEDS: Ondansetron 4 MG/2 ML Vial IV ×2 (15:27→22:51)
[2017-09-23] MEDS: Morphine 4 MG/ML Syringe IV ×2 (15:27→22:51)
[2017-09-23 15:48] LABS: International Normalized Ratio 1.2; Prothrombin Time (Protime)PT. 14.9 SECONDS (11.7-14.9)
[2017-09-23 15:51] LABS: ALB/GLOB Ratio 0.9 RATIO (0.9-2.4); AST(SGOT) 18 U/L (15-37); Alanine Aminotransfer ALT/SGPT 15 U/L (16-61); Albumin, Serum 3.1 g/dL (3.2-5.0); Alkaline Phosphatase 126 U/L (45-117); Anion Gap 12 (5-15); BUN 7 mg/dL (7-18); BUN/Creat Ratio 7.1 RATIO (10-20); Calcium,Total 8.5 mg/dL (8.5-10.1); Chloride 104 mmol/L (98-107); Creatinine, Serum 0.99 mg/dL (0.70-1.30); EST Glomerular Filtration Rate 78 mL/min (>60); Est Glom Filt Rate - Afr Amer 95 mL/min (>60); Estimated Creatinine Clearance 49.14 ml/min; Globulin 3.5 g/dL (2.2-4.2); Glucose 160 mg/dL (74-106); Lactic Acid 1.8 mmol/L (0.4-2.0); Lipase 670 U/L (73-393); Potassium 3.3 mmol/L (3.5-5.1); Protein, Total 6.6 g/dL (6.4-8.2); Sodium Level 139 mmol/L (136-145)
[2017-09-23 16:00] LABS: Hematocrit 42.8 % (40-54); Hemoglobin 12.6 g/dl (13.0-16.5); Mean Corp Hgb Conc 29.4 g/gl (32-36); Mean Corpuscular Hgb 17.8 pg (27.0-32.0); Mean Corpuscular Volume 60.5 fL (80-94); RBC Distribution Width CV 23.3 % (11.6-14.6); RBC Distribution Width SD 46.3 fl (35.1-43.9); Red Blood Count 7.08 M/mm3 (4.6-6.2)
[2017-09-23 16:01] LABS: White Blood Count 49.3 K/mm3 (4.4-11.0)
[2017-09-23 16:02] LABS: Differential Indicated MANUAL DIFF; POSITIVE COUNT YES; POSITIVE DIFFERENTIAL YES; POSITIVE MORPHOLOGY YES; Platelet Count 1513 K/mm3 (150-450)
[2017-09-23 16:13] LABS: Bacteria 0 SEEN /hpf (None Seen); Mucous, Urine 0 SEEN /hpf (<or=2+); Red Blood Cells-Urine 0 SEEN /hpf (0-5)
[2017-09-23] MEDS: HYDROmorphone 1 MG/ML Syringe IV (16:17)
[2017-09-23 16:20] LABS: Color, Urine Yellow (Yellow); Glucose, Dipstick 100 mg/dl (Normal); Ketone-Dipstick 50 mg/dl (Negative); Leukocyte Esterase-Dipstick 500 /ul (Negative); Nitrite-Dipstick Negative (Negative); Occult Blood-Urine Negative /ul (Negative); Protein-Dipstick 15 mg/dl (Negative); Specific Gravity, Urine 1.025 (1.002-1.030); Urine Bilirubin Dipstick Negative (Negative); Urine Clarity Sl. Cloudy (Clear); Urine Urobilinogen Normal (Normal)
[2017-09-23 16:28] LABS: Squamous Epithelial Cells - UA 0-5 SEEN /hpf (0-5); White Blood Cells 10-25 SEEN /hpf (0-5)
--- NOTE | 2017-09-23 17:26 | PCM.HP.STD ---
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 Patient was admitted from home by the ED on 09/23/2017 with complaint of significant epigastric pain which started this morning. Patient was discharged from [facility] 1 day ago after he had EGD and biopsy of an esophageal mass. Esophageal stricture was not dilated as the awaiting results of biopsy. He said pain was burning in nature, nonradiating to the back or anywhere else, mildly aggravated by eating as he drank a few yesterday and it made the pain worse, relieved by IV morphine in the ED. He states pain is similar to how he presented when he had pill induced esophagitis but that one needs to radiate up into his chest. He denied any fever or chills, any shortness of breath, any cough or chest pain, any diarrhea vomiting. He had nausea and retching but no dana vomiting. Of note, patient was diagnosed with thrombocytosis in [facility] and started on hydroxyurea. Vitals in the ED where blood pressure of 166/88, respiratory rate 22 temperature of 97.8 Fahrenheit and he was saturating at 92% on room air. Done in the ED showed white cell count of 49.3 and platelets of 1513 and hemoglobin of 12.6. Elevated white cell count and platelet was similar to previous records at [facility]. He was significant only for potassium of 3.3; AST and ALT were not elevated and ALT was only mildly elevated at 126. Lipase was 670. UA showed leukocyte esterase of around 500 with WBC of 10-25 and no bacteria seen. Chest and abdominal CT showed diffuse emphysematous changes of the lung with small bibasilar pleural effusion similar to previous study, and trace pericardial effusion which is slightly increased from previous study. It also showed normal liver gallbladder and extrahepatic biliary system with moderate organomegaly and normal kidneys as well as normal small intestine and normal colon. Pancreas also look normal, and small amount of free fluid in the deep pelvis which is new. He was started on IV ceftriaxone in the ED for UTI. 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) Allergies No Known Allergies Allergy (Verified 09/23/17 14:38) Home Medications: Ambulatory Orders Medication Instructions Recorded Albuterol Inhaler [Ventolin Hfa] 2 puff INHALATION Q6H PRN PRN 01/02/14 tiotropium 2.5 mcg-olodaterol 2.5 2 inh INHALATION QDAY #4 g 08/14/17 mcg/actuation mist for inhalation Allopurinol [Zyloprim] 300 mg PO DAILY 09/23/17 Ascorbic Acid,Sod/Zinc Ox,Gluc 1 each PO DAILY 09/23/17 [Zinc and C Lozenge] Chlorhexidine Gluconate [Peridex] 15 ml MM DAILY 09/23/17 Cholecalciferol (Vitamin D3) 1,000 unit PO DAILY 09/23/17 [Vitamin D3] Fluticasone 110 Mcg [Flovent (SP)] 1 puff INHALATION BID 09/23/17 Hydroxyurea [Hydrea] 1 cap PO DAILY 09/23/17 Mupirocin [Bactroban] 0.5 g NARES BID 09/23/17 Surgical History: - - dysplasia of tongue, ulcer surgery with some removal of stomach? vocal cord lesion. Psychiatric History: No pertinent psych hx Lives: Spouse/ Significant Other Smoking Status: Former smoker Alcohol: Occasional Drugs: None - *Family History Maternal History Items: No pertinent history, - - No cancer Paternal History Items: No pertinent history Review of Systems Constitutional: Reports: Weakness. Denies: Anorexia, Chills, Fever Eyes: Denies: Blurred vision HEENT: Reports: Difficulty Swallowing - discomfort with swallowing solid foods. Denies: Head Aches, Sinus Congestion, Sinus Drainage Cardiovascular: Denies: Chest Pain - Comfortable with swallow, Palpitations Respiratory: Denies: Cough, Shortness of breath at rest, Sputum production Gastrointestinal: Reports: Abdominal Pain - Mainly epigastric, burning pain, Nausea, -. Denies: Vomiting Genitourinary: Denies: Dysuria, Frequency Musculoskeletal: Denies: Joint Pain, Joint Tenderness Skin: Denies: Rash, Wounds Neurological: Denies: Numbness, Tingling, Focal weakness Psychiatric: Denies: Anxiety, Depression, Homicidal Ideations, Suicidal Ideations Hematologic/ Lymphatic: Denies: Easy Bruising, Easy Bleeding VTE Information - Inpt Only VTE Present on Admission: No VTE Mechan Device Prophylaxis: SCD's VTE Pharm Prophylaxis ordered?: Yes Patient Problems: Active and Suspected Problems (Last Reviewed 05/03/17 @ 09:16 by Carmen Graham) Acute pancreatitis (Acute) - Physical Exam General: Alert, Oriented x3, Cooperative, No apparent distress, - - looked cachectic HEENT: Atraumatic, PERRLA, EOMI, Normocephalic Oral: Moist Mucosa Neck: Supple, No JVD, Negative Carotid Bruits Lungs: Clear to auscultation, Normal air movement, No rhonchi, No wheeze Cardiovascular: Regular Rhythm, Normal S1, Normal S2, No murmurs, Tachycardic Abdomen: Bowel Sounds Present, Soft, - - Moderate epigastric tenderness, with minimal guarding and no rebound tenderness. Partial gastrectomy scar Extremities: No clubbing, No cyanosis, No edema, Capillary Refill Less than 3 Seconds Skin: No rashes, No breakdown Musculoskeletal: No Tenderness to Palpation of Joints or Extremities, Cachexia Lymphatic: No Cervical, Supraclavicular, or Inguinal Adenopathy Neurological: Cranial nerves II-XII grossly intact, Neuro grossly intact, Motor Exam 5/5 strength throughout Psych/Mental Status: Normal Affect, Appropriate, Alert and oriented to time, place, person, mood and affect Vital Signs Temp Pulse Resp BP Pulse Ox 97.8 F 103 H 20 H 165/94 H 94 09/23/17 14:36 09/23/17 17:24 09/23/17 17:24 09/23/17 17:24 09/23/17 17:24 Oxygen Flow Rate (L/min) 2 Oxygen Delivery Method Nasal Cannula Weight: 122 lb 9.232 oz Body Mass Index (BMI) 17.1 Laboratory Tests Past 24 Hrs 09/23/17 09/23/17 09/23/17 15:00 15:00 15:00 WBC Pending RBC 7.08 H Hgb 12.6 L Hct 42.8 MCV 60.5 L MCH 17.8 L MCHC 29.4 L RDW 23.3 H RDW Differential 46.3 H Plt Count Pending MPV 9.0 Neut % (Auto) Not Reportable Absolute Neuts (auto) Not Reportable Total Counted Pending PT 14.9 INR 1.2 Sodium 139 Potassium 3.3 L Chloride 104 Carbon Dioxide 23.0 Anion Gap 12 BUN 7 Creatinine 0.99 Estim Creat Clear Calc 49.14 Est GFR (MDRD) Af Amer 95 Est GFR (MDRD) Non-Af 78 BUN/Creatinine Ratio 7.1 L Glucose 160 H Lactic Acid Calcium 8.5 Total Bilirubin 0.60 AST 18 ALT 15 L Alkaline Phosphatase 126 H Total Protein 6.6 Albumin 3.1 L Globulin 3.5 Albumin/Globulin Ratio 0.9 Lipase 670 H Urine Color Urine Clarity Urine pH Ur Specific [place] Urine Protein Urine Glucose (UA) Urine Ketones Urine Occult Blood Urine Nitrite Urine Bilirubin Urine Urobilinogen Ur Leukocyte Esterase Urine RBC Urine WBC Ur Squamous Epith Cells Urine Bacteria Urine Mucus 09/23/17 09/23/17 15:00 16:05 WBC RBC Hgb Hct MCV MCH MCHC RDW RDW Differential Plt Count MPV Neut % (Auto) Absolute Neuts (auto) Total Counted PT INR Sodium Potassium Chloride Carbon Dioxide Anion Gap BUN Creatinine Estim Creat Clear Calc Est GFR (MDRD) Af Amer Est GFR (MDRD) Non-Af BUN/Creatinine Ratio Glucose Lactic Acid 1.8 Calcium Total Bilirubin AST ALT Alkaline Phosphatase Total Protein Albumin Globulin Albumin/Globulin Ratio Lipase Urine Color Yellow Urine Clarity Sl. Cloudy Urine pH 6.0 Ur Specific [place] 1.025 Urine Protein 15 H Urine Glucose (UA) 100 H Urine Ketones 50 H Urine Occult Blood Negative Urine Nitrite Negative Urine Bilirubin Negative Urine Urobilinogen Normal Ur Leukocyte Esterase 500 H Urine RBC 0 SEEN Urine WBC 10-25 SEEN Ur Squamous Epith Cells 0-5 SEEN Urine Bacteria 0 SEEN Urine Mucus 0 SEEN Assessment/Plan Active and Suspected Problems (Last Reviewed 05/03/17 @ 09:16 by Carmen Graham) Acute pancreatitis (Acute) 77-year-old male with extensive past history of COPD, vocal cord cancer status post radiotherapy, pill induced esophagitis and esophageal stricture status post biopsy and awaiting results, thrombocytosis and partial gastrectomy after bleeding peptic ulcer disease. He presents with epigastric pain of one days duration associated burning in nature and nonradiating to the back. He denies any use of NSAIDs 1. Esophagitis vs PUDx vs pancreatitis has a history of esophagitis due to doxycycline. Also has esophageal stricture also has history of bleeding PUDx s/p partial gastretomy on admission in ED, he had SIRS 4/4 [place] [address]; this is similar to labs at [facility] CT abdomen showed normal pancreas lipase was ~ 690; it is not 3x the upper limit of normal; this makes pancreatitis less likely will keep NPO for now. Will hydrate with IVF NS IV pantoprazole 40mg daily will advance diet as tolerated from tomorrow. Usually on soft pureed diet, per daughter to follow up on biopsy results from [facility] to rule out esophageal cancer 2. Sepsis due to UTI had SIRS 3/4 criteria on admission (RR-22, MO-103, [place] [address]) chest and abdominal CT showed free fluid in pelvis UA showed elevated Leucocyte esterase, but no bacteria started on IV ceftriaxone in ED. will continue urine culture;' will deescalate antibiotics as per culture results 3. Thrombocytosis and marked leucocytosis these may be due to a blood disorder. started on hydroxyurea 500mg daily at [facility]. will continue 4. COPD stable will put on breathing treatments 5. Elevated BP BP was 170s systolic at time of review. Was in 160s systolic on admission per daughter, it is likely white coat hypertension as he is not a known hypertensive, and gets nervous when in hospital IV hydralazine 10mg q6prn for SBP>160mmHg 6. S/p partial gastrectomy: stable DVT prophylaxis: heparin GI prophylaxis:on IV pantoprazoel 40mg daily Code status: full code. This note was generated with [employer], a Division of [employer] software. It may contain incorrect words, spelling, and punctuation that were not noted in checking the note before signing. Code Visit OBSV E&M: 04514 Initial observation care L3
[2017-09-23] MEDS: 0.9% Normal Saline 1,000 ML 999 ML IV (17:29)
--- NOTE | 2017-09-23 17:30 | ED.DCSUM_ITS ---
- ER Visit Summary Date of Service: 09/23/17 Chief Complaint: Abdominal pain History of Present Illness: The patient is a 77 M who presents with abdominal pain. It initially began roughly 1 week ago. He complains of severe burning epigastric abdominal pain. He had called his primary care physician regarding a URI-like illness and was started on doxycycline. He then presented here for epigastric abdominal pain. He had an EGD and was found to have likely pill esophagitis. He also had an esophageal stricture. The surgeon was unable to pass the scope past the stricture and it was noted that there was thin friable bleeding tissue. He also had significant leukocytosis and thrombocytosis. He was transferred to [facility]. He was seen by hematology and started on allopurinol and hydroxyurea. He also had an EGD and was found to have a mass which was biopsied. His pain was under good control and he was discharged yesterday. Today he had return of severe burning epigastric abdominal pain and had 2 episodes of nonbloody nonbilious emesis. Physical Examination: Afebrile pulse ox 97% on 2 L he is on home oxygen vitals otherwise unremarkable Moist mucous membranes Heart regular rate and rhythm Lungs are clear to auscultation Patient has epigastric abdominal tenderness and voluntary guarding but his abdomen is soft when he relaxes Alert Test Results: EKG shows sinus rhythm at a rate of 95 with nonspecific T-wave changes. Laboratory studies notable for white blood cell count 49.3, platelets 1513. Lipase is 670. UA consistent with infection shows 500 leukocyte esterase and 10-25 WBCs. Lactic acid is normal. CT of the chest abdomen and pelvis shows emphysematous changes, right upper lobe scarring, small bilateral effusions, trace pericardial effusion, splenomegaly, free fluid in the pelvis. Emergency Department Course and Treatment: My initial concern given patient's recent EGDs with severe epigastric abdominal pain was for possible perforation. CT do not show evidence of this. He does have evidence of pancreatitis and UTI. He is improved after symptomatic treatment with IV fluids morphine Zofran and then Dilaudid. He was discussed with the hospitalist and will be admitted. He was given IV Rocephin for UTI. Treatment Plan: [] Disposition: Admit Impression: Pancreatitis UTI Esophageal stricture Leukocytosis Thrombocytosis This note was generated with [employer] dictation software. It may contain incorrect words, spelling, and punctuation that were not noted in review of the chart prior to signing ED Disposition - Plan for ED Patient: Chief Complaint: Abd Pain Referrals: Varun Wang MD [Primary Care Provider] -
[2017-09-23 17:32] LABS: Differential Comment SCANNED; Eosinophil 2 % (0-5); Metamyelocyte 1 % (0-1); Monocyte 5 % (0-10); Neutrophil-Band 1 % (0-5); Neutrophil-Segmented 91 % (47-70); Platelet Estimate MKD INC (ADEQ); Total Cells Counted 100 (MANUAL DIFF)
[2017-09-23 17:33] LABS: Anisocytosis 4+; Ovalocyte 1+; Poikilocytosis 2+; Polychromasia RARE
[2017-09-23] MEDS: proMETHazine 25 MG/ML Syringe 12.5 MG IV (17:35)
[2017-09-23 17:36] LABS: Schistocytes RARE
[2017-09-23 17:37] LABS: Platelet Morphology GIANT
[2017-09-23 17:38] LABS: Absolute Neutrophil Count 45.4 X10^3/uL (2.0-7.7); Neutrophil # 45.36 X10^3/uL (2.7-7.7)
[2017-09-23] MEDS: Ceftriaxone 1 GM/50 ML BAG IV (17:53)
--- NOTE | 2017-09-23 18:12 | ED.RN ---
DR MOLINA NOTIFIED PT REQUESTING ADDITIONAL PAIN MEDICATION
[2017-09-23] MEDS: Morphine 4 MG/ML Syringe 1 MG IV (19:31)
[2017-09-23] MEDS: 0.9% NaCl Peripheral Flush Adult/Peds IV ×2 (19:31→22:51)
[2017-09-23] MEDS: Ipratropium/Albuterol Sulfate 3 ML AMPUL.NEB INHALATION (19:50)
[2017-09-23] MEDS: Budesonide Respules 0.5 MG/2 ML AMPUL.NEB. INHALATION (19:51)
[2017-09-23] MEDS: 0.9% Normal Saline 1,000 ML 125 ML IV (20:05)
[2017-09-23] MEDS: Heparin Injection (Vial) 5,000 UNIT/ML VIAL 5000 UNIT SC (22:59)
[2017-09-24] VITALS (15 sets, daily range): BP systolic 109–158; BP diastolic 68–87; PULSE 97–123; RESP 18–20; TEMP 36.7–37.2; O2SAT 92–97
[2017-09-24] MEDS: 0.9% Normal Saline 1,000 ML 125 ML IV (02:49)
[2017-09-24] MEDS: Morphine 4 MG/ML Syringe IV (02:57)
[2017-09-24] MEDS: Ondansetron 4 MG/2 ML Vial IV ×3 (02:57→20:33)
[2017-09-24] MEDS: 0.9% NaCl Peripheral Flush Adult/Peds IV ×2 (02:58→04:30)
[2017-09-24] MEDS: HYDROmorphone 1 MG/ML Syringe 2 MG IV (04:30)
[2017-09-24 07:12] LABS: Absolute Lymphocyte Count 0.84 X10^3/ul (0.83-4.51); Absolute Neutrophil Count 28.3 X10^3/uL (2.0-7.7); Basophil# 0.34 X10^3/uL; Eosinophil# 0.29 X10^3/uL; Eosinophils% 0.9 % (0-5); Hematocrit 38.8 % (40-54); Hemoglobin 11.9 g/dl (13.0-16.5); Lymphocyte # 0.84 X10^3/ul (4.0); Lymphocyte % 2.6 % (19-41); Mean Corp Hgb Conc 30.7 g/gl (32-36); Mean Corpuscular Hgb 18.2 pg (27.0-32.0); Mean Corpuscular Volume 59.2 fL (80-94); Mean Platelet Vol. 8.7 fl (6.2-12.0); Monocyte# 2.43 X10^3/uL; Monocyte% 7.4 % (0-10); Neutrophil # 28.29 X10^3/uL (2.7-7.7); Neutrophil % 86.5 % (47-70); Platelet Count 1114 K/mm3 (150-450); RBC Distribution Width CV 25.2 % (11.6-14.6); RBC Distribution Width SD 48.1 fl (35.1-43.9); Red Blood Count 6.55 M/mm3 (4.6-6.2)
[2017-09-24] MEDS: Budesonide Respules 0.5 MG/2 ML AMPUL.NEB. INHALATION ×2 (07:12→19:22)
[2017-09-24] MEDS: Ipratropium/Albuterol Sulfate 3 ML AMPUL.NEB INHALATION ×3 (07:12→19:22)
[2017-09-24 07:20] LABS: White Blood Count 32.5 K/mm3 (4.4-11.0)
[2017-09-24 07:21] LABS: Differential Indicated SCAN CRITERIA MET; POSITIVE COUNT YES; POSITIVE DIFFERENTIAL YES; POSITIVE MORPHOLOGY YES
[2017-09-24 07:49] LABS: Microcytosis 3+; Ovalocyte 1+; Platelet Estimate MKD INC (ADEQ); Platelet Morphology LARGE
[2017-09-24 08:21] LABS: ALB/GLOB Ratio 0.8 RATIO (0.9-2.4); AST(SGOT) 21 U/L (15-37); Alanine Aminotransfer ALT/SGPT 12 U/L (16-61); Albumin, Serum 2.5 g/dL (3.2-5.0); Alkaline Phosphatase 102 U/L (45-117); Anion Gap 9 (5-15); BUN 5 mg/dL (7-18); BUN/Creat Ratio 8.4 RATIO (10-20); Calcium,Total 7.7 mg/dL (8.5-10.1); Chloride 103 mmol/L (98-107); Creatinine, Serum 0.59 mg/dL (0.70-1.30); EST Glomerular Filtration Rate 141 mL/min (>60); Est Glom Filt Rate - Afr Amer 170 mL/min (>60); Estimated Creatinine Clearance 48.02 ml/min; Globulin 3.1 g/dL (2.2-4.2); Glucose 106 mg/dL (74-106); Lipase 215 U/L (73-393); Potassium 3.3 mmol/L (3.5-5.1); Protein, Total 5.6 g/dL (6.4-8.2); Sodium Level 138 mmol/L (136-145)
[2017-09-24] MEDS: Ceftriaxone 1 GM/50 ML BAG IV (08:55)
[2017-09-24] MEDS: Heparin Injection (Vial) 5,000 UNIT/ML VIAL 5000 UNIT SC ×2 (08:57→21:08)
[2017-09-24] MEDS: Allopurinol 300 MG Tablet PO (09:08)
--- NOTE | 2017-09-24 09:53 | PCM.PROGNOTE ---
Patient Problems: Active and Suspected Problems (Last Reviewed 05/03/17 @ 09:16 by Carmen Graham) Acute pancreatitis (Acute) Subjective: Mr. Brar is a 77YO Male with a PMH of COPD, pill induced esophagitis, esophageal stricture, esophageal mass with recent biopsy at [facility], right vocal cord cancer who is status post radiation about 5 years prior to admission to [facility] and partial gastrectomy due to bleeding peptic ulcer disease approximately 15 years ago. He has recently been diagnosed with thrombocytosis/leukocytosis and started on hydroxyurea. He presented to the emergency department at [facility] on 09/23/2017 with a complaint of epigastric pain that had started that morning. He was just discharged from the [facility] 1 day prior to presentation to [facility] and had EGD and biopsy of an esophageal mass at that time. Pain was relieved with morphine in the emergency department. Lipase was elevated at 670 but he had experienced nausea and retching. This is less than 3 times the upper limits of normal and not significant. UA had 10-25 WBCs per high-power field with no bacteria. Chest/abdomen/pelvis CTs show diffuse emphysematous changes of the lungs with small bibasilar pleural effusion similar to a previous study. The liver, gallbladder and extrahepatic biliary system appeared normal. No evidence of bowel obstruction. Pancreas looked normal. He was admitted to the hospital for UTI and started on Rocephin. Afebrile since admission Heart rate is mildly increased in the 100-110 range on the graphics but, has had HR's into the 120's on telemetry with bursts of narrow complex tachycardia. Blood pressures within normal limits. He is 92-95% saturated on 2 L nasal cannula. White blood cell count today is 32,500 and the platelets are 1,114,000. Hemoglobin is 11.9 and stable. MCV is only 59.2 but the red blood cell count is high at 6.55. Potassium remains low at 3.3 and the BUN is 5 with a creatinine of 0.59. Lipase is normal at 215. Specific gravity at admission was 1.025. Urine culture is pending. abdominal pain is better today....still with some pain with palpation in the epigastric area. Denies nausea. Has not smoked for 4 years and also gave up all alcohol. Denies SOB and also denies CP. Tells me that he is getting lightheaded when he first stands up Objective: General: Alert, oriented ?3, cooperative, appropriate, soft voice, able to follow commands Neck: Supple, trachea midline, no enlarged cervical nodes, no enlarged supraclavicular nodes him a carotids have brisk upstroke with excellent pulse volume, no carotid bruits, no JVD Lungs: Clear to auscultation, diminished, symmetric chest expansion, not tachypneic, no conversational dyspnea, no accessory muscle use Heart: increased resting heart rate and regular rhythm, normal S1, normal S2, no murmur, no gallop, no rub Abdomen: Soft, NT, ND, bowel sounds present, tender in the epigastric area Extremities: No clubbing, no peripheral edema, no cyanosis Musculoskeletal: cachectic in appearance - Physical Exam Vital Signs Temp Pulse Resp BP Pulse Ox 98.1 F 104 H 18 131/76 H 95 09/24/17 08:53 09/24/17 08:53 09/24/17 08:53 09/24/17 08:53 09/24/17 08:53 Oxygen Flow Rate (L/min) 2 Oxygen Delivery Method Nasal Cannula Weight: 121 lb Body Mass Index (BMI) 16.9 Intake and Output for Last 24 Hours 09/22/17 09/23/17 09/24/17 23:59 23:59 23:59 Intake Total 1386 / 1386 Output Total 390 / 390 Balance 996 / 996 Laboratory Tests Past 24 Hrs 09/24/17 09/24/17 06:34 06:34 WBC 32.5 H* RBC 6.55 H Hgb 11.9 L Hct 38.8 L MCV 59.2 L MCH 18.2 L MCHC 30.7 L RDW 25.2 H RDW Differential 48.1 H Plt Count 1114 H* MPV 8.7 Immature Gran % (Auto) 1.600 H Neut % (Auto) 86.5 H Lymph % (Auto) 2.6 L [place] % (Auto) 7.4 Eos % (Auto) 0.9 Baso % (Auto) 1.0 Absolute Neuts (auto) 28.3 H Absolute Lymphs (auto) 0.84 Total Counted Not Reportable Diff Path Review May foll Platelet Estimate MKD INC Plt Morphology Comment LARGE Microcytosis 3+ Ovalocytes 1+ Sodium 138 Potassium 3.3 L Chloride 103 Carbon Dioxide 26.0 Anion Gap 9 BUN 5 L Creatinine 0.59 L Estim Creat Clear Calc 48.02 Est GFR (MDRD) Af Amer 170 Est GFR (MDRD) Non-Af 141 BUN/Creatinine Ratio 8.4 L Glucose 106 Calcium 7.7 L Total Bilirubin 0.50 AST 21 ALT 12 L Alkaline Phosphatase 102 Total Protein 5.6 L Albumin 2.5 L Globulin 3.1 Albumin/Globulin Ratio 0.8 L Lipase 215 Medical Necessity - Tobacco Use Smoking Status: Former smoker Assessment/Plan Active and Suspected Problems (Last Reviewed 05/03/17 @ 09:16 by Carmen Graham) Acute pancreatitis (Acute) Impressions 1. upper abdominal pain - pancreatitis ruled out.....lipase was never > 3X's the upper limits of normal. He has a hx of gastritis and PUD - this may be the etiology 2. malnutrition - moderate to severe per the liaison officer 3. severe COPD 4. esophageal mass - suspicious this will be malignant 5. former smoker - quit in 2013 6. Normal sinus rhythm/sinus tachycardia/narrow complex supraventricular tachycardia 7. Hypokalemia 8. Normocytosis/leukocytosis-on hydroxyurea 9. Sepsis due to Urinary tract infection 10. Status post partial gastrectomy in the past for peptic ulcer disease 11. hx of Hyperuricemia - on Zyloprim 12. History of vocal cord cancer in August 2016 Check a TSH Start IV fluids Check Mag and phos supplement the K Recheck the lab in the AM Continue to monitor on telemetry start on clear liquids If the esophageal mass is malignant will need to follow up at [facility] Continue the Rocephin and await the results of the urine culture Continue heparin for DVT prophylaxis Continue Protonix Code Visit Inpatient E&M: 89985 Subs Hosp L2
--- NOTE | 2017-09-24 10:03 | PN_ITS ---
Patient Problems: Active and Suspected Problems (Last Reviewed 05/03/17 @ 09:16 by Carmen Graham ) Acute pancreatitis (Acute) Subjective: Mr. 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 and partial gastrectomy due to bleeding peptic ulcer disease approximately 15 years ago. He has recently been diagnosed with thrombocytosis/leukocytosis and started on hydroxyurea. He presented to the emergency department at [facility] on 2017 with a complaint of epigastric pain that had started that morning. He was just discharged from the [facility] 1 day prior to presentation to [facility] and had EGD and biopsy of an esophageal mass at that time. Pain was relieved with morphine in the emergency department. Lipase was elevated at 670 but he had experienced nausea and retching. This is less than 3 times the upper limits of normal and not significant. UA had 10-25 WBCs per high-power field with no bacteria. Chest/abdomen/pelvis CTs show diffuse emphysematous changes of the lungs with small bibasilar pleural effusion similar to a previous study. The liver, gallbladder and extrahepatic biliary system appeared normal. No evidence of bowel obstruction. Pancreas looked normal. He was admitted to the hospital for UTI and started on Rocephin. Afebrile since admission Heart rate is mildly increased in the 100-110 range on the graphics but, has had HR's into the 120's on telemetry with bursts of narrow complex tachycardia. Blood pressures within normal limits. He is 92-95% saturated on 2 L nasal cannula. White blood cell count today is 32,500 and the platelets are 1,114,000. Hemoglobin is 11.9 and stable. MCV is only 59.2 but the red blood cell count is high at 6.55. Potassium remains low at 3.3 and the BUN is 5 with a creatinine of 0.59. Lipase is normal at 215. Specific gravity at admission was 1.025. Urine culture is pending. abdominal pain is better today....still with some pain with palpation in the epigastric area. Denies nausea. Has not smoked for 4 years and also gave up all alcohol. Denies SOB and also denies CP. Tells me that he is getting lightheaded when he first stands up Objective: General: Alert, oriented ?3, cooperative, appropriate, soft voice, able to follow commands Neck: Supple, trachea midline, no enlarged cervical nodes, no enlarged supraclavicular nodes him a carotids have brisk upstroke with excellent pulse volume, no carotid bruits, no JVD Lungs: Clear to auscultation, diminished, symmetric chest expansion, not tachypneic, no conversational dyspnea, no accessory muscle use Heart: increased resting heart rate and regular rhythm, normal S1, normal S2, no murmur, no gallop, no rub Abdomen: Soft, NT, ND, bowel sounds present, tender in the epigastric area Extremities: No clubbing, no peripheral edema, no cyanosis Musculoskeletal: cachectic in appearance - Physical Exam Vital Signs Temp Pulse Resp BP Pulse Ox 98.1 F 104 H 18 131/76 H 95 09/24/17 08:53 09/24/17 08:53 09/24/17 08:53 09/24/17 08:53 09/24/17 08:53 Oxygen Flow Rate (L/min) 2 Oxygen Delivery Method Nasal Cannula Weight: 121 lb Body Mass Index (BMI) 16.9 Intake and Output for Last 24 Hours 09/22/17 09/23/17 09/24/17 23:59 23:59 23:59 Intake Total 1386 / 1386 Output Total 390 / 390 Balance 996 / 996 Laboratory Tests Past 24 Hrs 09/24/17 09/24/17 06:34 06:34 WBC 32.5 H* RBC 6.55 H Hgb 11.9 L Hct 38.8 L MCV 59.2 L MCH 18.2 L MCHC 30.7 L RDW 25.2 H RDW Differential 48.1 H Plt Count 1114 H* MPV 8.7 Immature Gran % (Auto) 1.600 H Neut % (Auto) 86.5 H Lymph % (Auto) 2.6 L Hardee % (Auto) 7.4 Eos % (Auto) 0.9 Baso % (Auto) 1.0 Absolute Neuts (auto) 28.3 H Absolute Lymphs (auto) 0.84 Total Counted Not Reportable Diff Path Review May foll Platelet Estimate MKD INC Plt Morphology Comment LARGE Microcytosis 3+ Ovalocytes 1+ Sodium 138 Potassium 3.3 L Chloride 103 Carbon Dioxide 26.0 Anion Gap 9 BUN 5 L Creatinine 0.59 L Estim Creat Clear Calc 48.02 Est GFR (MDRD) Af Amer 170 Est GFR (MDRD) Non-Af 141 BUN/Creatinine Ratio 8.4 L Glucose 106 Calcium 7.7 L Total Bilirubin 0.50 AST 21 ALT 12 L Alkaline Phosphatase 102 Total Protein 5.6 L Albumin 2.5 L Globulin 3.1 Albumin/Globulin Ratio 0.8 L Lipase 215 Medical Necessity - Tobacco Use Smoking Status: Former smoker Assessment/Plan Active and Suspected Problems (Last Reviewed 05/03/17 @ 09:16 by Carmen Graham ) Acute pancreatitis (Acute) Impressions 1. upper abdominal pain - pancreatitis ruled out.....lipase was never > 3X's the upper limits of normal. He has a hx of gastritis and PUD - this may be the etiology 2. malnutrition - moderate to severe per the vice president quality assurance 3. severe COPD 4. esophageal mass - suspicious this will be malignant 5. former smoker - quit in 2013 6. Normal sinus rhythm/sinus tachycardia/narrow complex supraventricular tachycardia 7. Hypokalemia 8. Normocytosis/leukocytosis-on hydroxyurea 9. Sepsis due to Urinary tract infection 10. Status post partial gastrectomy in the past for peptic ulcer disease 11. hx of Hyperuricemia - on Zyloprim 12. History of vocal cord cancer in August 2016 Check a TSH Start IV fluids Check Mag and phos supplement the K Recheck the lab in the AM Continue to monitor on telemetry start on clear liquids If the esophageal mass is malignant will need to follow up at [facility] Continue the Rocephin and await the results of the urine culture Continue heparin for DVT prophylaxis Continue Protonix Code Visit Inpatient E&M: [id number] Subs Hosp L2
[2017-09-24 12:23] LABS: Magnesium 1.7 mg/dL (1.6-2.6)
[2017-09-24] MEDS: HYDROmorphone 0.5 MG/0.5 ML SYRINGE IV ×2 (13:37→21:07)
[2017-09-25] VITALS (13 sets, daily range): BP systolic 147–150; BP diastolic 89–94; PULSE 98–160; RESP 16–20; TEMP 36.3–37.4; O2SAT 93–95
[2017-09-25] MEDS: morphine (oral solution) 10MG/0.5ML Syringe 6 MG SL/PO ×3 (02:21→18:21)
[2017-09-25 06:44] LABS: Hematocrit 38.6 % (40-54); Hemoglobin 11.4 g/dl (13.0-16.5); Mean Corp Hgb Conc 29.5 g/gl (32-36); Mean Corpuscular Hgb 17.9 pg (27.0-32.0); Mean Corpuscular Volume 60.5 fL (80-94); Mean Platelet Vol. 9.1 fl (6.2-12.0); Platelet Count 556 K/mm3 (150-450); RBC Distribution Width CV 23.2 % (11.6-14.6); RBC Distribution Width SD 46.9 fl (35.1-43.9); Red Blood Count 6.38 M/mm3 (4.6-6.2)
[2017-09-25 06:47] LABS: Anion Gap 11 (5-15); BUN 3 mg/dL (7-18); BUN/Creat Ratio 4.4 RATIO (10-20); Chloride 102 mmol/L (98-107); Creatinine, Serum 0.68 mg/dL (0.70-1.30); EST Glomerular Filtration Rate 119 mL/min (>60); Est Glom Filt Rate - Afr Amer 144 mL/min (>60); Estimated Creatinine Clearance 48.04 ml/min; Glucose 107 mg/dL (74-106); Magnesium 1.9 mg/dL (1.6-2.6); Phosphorus 1.6 mg/dL (2.5-4.9); Potassium 3.8 mmol/L (3.5-5.1); Sodium Level 139 mmol/L (136-145)
[2017-09-25 06:48] LABS: Scan Indicated on CBC? Y/N YES- FLAGS NOTED
[2017-09-25] MEDS: Budesonide Respules 0.5 MG/2 ML AMPUL.NEB. INHALATION (07:16)
[2017-09-25] MEDS: Ipratropium/Albuterol Sulfate 3 ML AMPUL.NEB INHALATION ×2 (07:16→13:52)
[2017-09-25] MEDS: Ondansetron 4 MG/2 ML Vial IV (07:28)
--- NOTE | 2017-09-25 07:56 | PN_ITS ---
Subjective: All events of the past 24 hours were reviewed. He remains afebrile. Heart rate is persistently elevated and has ranged from 97-115 over the past 24 hours. Blood pressures have been mildly elevated but better than 5/27. He is 93-95% saturated on a 2-1/2 L nasal cannula. Fluid balance is +2379 since admission. White blood cell count today is 23,000 and the platelet count is down to 556, 000. Globin is stable at 11.4. Potassium is 3.8 today following supplementation. BUN is 3 with a creatinine of 0.68. Phosphorus is low at 1.6 and the magnesium is 1.9. TSH was elevated at 19.1. Objective: General: Alert, oriented ?3, cooperative, appropriate, soft voice, able to follow commands Neck: Supple, trachea midline, no enlarged cervical nodes, no enlarged supraclavicular nodes him a carotids have brisk upstroke with excellent pulse volume, no carotid bruits, no JVD Lungs: Clear to auscultation, diminished, symmetric chest expansion, not tachypneic, no conversational dyspnea, no accessory muscle use Heart: increased resting heart rate and regular rhythm, normal S1, normal S2, no murmur, no gallop, no rub Abdomen: Soft, NT, ND, bowel sounds present, tender in the epigastric area Extremities: No clubbing, no peripheral edema, no cyanosis Musculoskeletal: cachectic in appearance - Physical Exam Vital Signs Temp Pulse Resp BP Pulse Ox 97.3 F L 104 H 16 147/93 H 93 09/25/17 02:23 09/25/17 07:16 09/25/17 07:16 09/25/17 02:23 09/25/17 07:16 Oxygen Flow Rate (L/min) 2.5 Oxygen Delivery Method Nasal Cannula Weight: 121 lb 0.54 oz Body Mass Index (BMI) 16.9 Orthostatic Vital Signs Start: 09/24/17 12:42 Freq: q24h Status: Active Protocol: Activity Type Activity Date Activity User E-Sign Co-Sign Detail Recorded Client Recorded Date Recorded By Document 09/24/17 13:29 CAB [id number] 09/24/17 13:32 CAB 09/24/17 13:29 Orthostatic Vitals Standing -Blood Pressure (90/60-120/80 mm Hg) 117/68 -Extremity Use Right Arm -Pulse Rate (60-100 beats/min) 123 H Sitting -Blood Pressure (90/60-120/80 mm Hg) 109/69 -Extremity Use Left Arm -Pulse Rate (60-100 beats/min) 120 H Lying -Blood Pressure (90/60-120/80 mm Hg) 128/72 H -Extremity Use Left Arm -Pulse Rate (60-100 beats/min) 108 H Intake and Output for Last 24 Hours 09/23/17 09/24/17 09/25/17 23:59 23:59 23:59 Intake Total 2652 / 2652 1192 / 1192 Output Total 865 / 865 600 / 600 Balance 1787 / 1787 592 / 592 Laboratory Tests Past 24 Hrs 09/24/17 09/24/17 09/24/17 06:34 06:34 06:34 WBC RBC Hgb Hct MCV MCH MCHC RDW RDW Differential Plt Count MPV Total Counted Not Reportable Differential Comment Diff Path Review May foll Platelet Estimate MKD INC Plt Morphology Comment LARGE Microcytosis 3+ Ovalocytes 1+ Sodium 138 Potassium 3.3 L Chloride 103 Carbon Dioxide 26.0 Anion Gap 9 BUN 5 L Creatinine 0.59 L Estim Creat Clear Calc 48.02 Est GFR (MDRD) Af Amer 170 Est GFR (MDRD) Non-Af 141 BUN/Creatinine Ratio 8.4 L Glucose 106 Calcium 7.7 L Phosphorus 2.0 L Magnesium 1.7 Total Bilirubin 0.50 AST 21 ALT 12 L Alkaline Phosphatase 102 Total Protein 5.6 L Albumin 2.5 L Globulin 3.1 Albumin/Globulin Ratio 0.8 L Lipase 215 TSH 19.10 H 09/24/17 09/25/17 09/25/17 06:34 06:04 06:04 WBC 23.0 H RBC 6.38 H Hgb 11.4 L Hct 38.6 L MCV 60.5 L MCH 17.9 L MCHC 29.5 L RDW 23.2 H RDW Differential 46.9 H Plt Count 556 H MPV 9.1 Total Counted Differential Comment Diff Path Review Platelet Estimate Plt Morphology Comment Microcytosis Ovalocytes Sodium 139 Potassium 3.8 Chloride 102 Carbon Dioxide 26.0 Anion Gap 11 BUN 3 L Creatinine 0.68 L Estim Creat Clear Calc 48.04 Est GFR (MDRD) Af Amer 144 Est GFR (MDRD) Non-Af 119 BUN/Creatinine Ratio 4.4 L Glucose 107 H Calcium 8.0 L Phosphorus Cancelled 1.6 L Magnesium 1.9 Total Bilirubin AST ALT Alkaline Phosphatase Total Protein Albumin Globulin Albumin/Globulin Ratio Lipase TSH Medical Necessity - Tobacco Use Smoking Status: Former smoker Assessment/Plan All Active Problems (Last Updated 09/27/17 @ 08:23 by Mikal Fountain DO) UTI (urinary tract infection) (Ruled-out) Sepsis (Ruled-out) Hypokalemia (Acute) SVT (supraventricular tachycardia) (Acute) Abdominal pain (Acute) Ileus (Ruled-out) Acute pancreatitis (Ruled-out) JULIANA (acute kidney injury) (Resolved) Elevated LFTs (Resolved) Foreign body in esophagus (Resolved) Pneumonia (Resolved) Impressions 1. upper abdominal pain - pancreatitis ruled out.....lipase was never > 3X's the upper limits of normal. He has a hx of gastritis and PUD - this may be the etiology 2. malnutrition - moderate to severe per the credit office manager 3. severe COPD 4. esophageal mass - suspicious this will be malignant 5. former smoker - quit in 2013 6. Normal sinus rhythm/sinus tachycardia/narrow complex supraventricular tachycardia 7. Hypokalemia 8. Normocytosis/leukocytosis-on hydroxyurea 9. Sepsis due to Urinary tract infection 10. Status post partial gastrectomy in the past for peptic ulcer disease 11. hx of Hyperuricemia - on Zyloprim 12. History of vocal cord cancer in August 2016 Check a T4 Need to gather the family and discuss plans going forward. He is very weak and I suspect he has esophageal cancer. PEG? Placement? SNF? advance directives? Await the results of the urine culture Try and get the results of the recent esophageal biopsy from [facility] Code Visit Inpatient E&M: [id number] Subs Hosp L2
[2017-09-25] MEDS: Heparin Injection (Vial) 5,000 UNIT/ML VIAL 5000 UNIT SC ×2 (09:52→20:53)
[2017-09-25] MEDS: Ceftriaxone 1 GM/50 ML BAG IV (10:41)
--- NOTE | 2017-09-25 12:34 | CASEMGMT ---
Social Work Note SW in to see pt to provide emotional support and to ask about discharge planning. Pt states that he lives at home with his and his 33 year old grandson. Pt states that currently his is not at home though as she is at [facility]. Pt states that his is not doing well and is losing blood. Pt states that he is worried and nervous about his being in the hospital. SW offered support and empathy. Pt states that he and his have been for 59 years. Pt states that he has a daughter Brenda that lives across the street and is able to help with pt as well. Pt states that he is currently frustrated as no one is telling me what is going on. SW utilized active listening skills and offered support for pt and his frustration. Pt states that he would like to know about his treatment options. SW informed pt that Dr. Fountain would like a family meeting with pt and his family to discuss treatment options and discharge options. Pt states that his daughter Brenda will be coming in around 3:30pm today. Pt states that his plan is to return home at discharge. SW discussed SNF, Home Health Care, Palliative Care, and Hospice with pt. Pt denied SNF, Home Health Care, Palliative Care and Hospice at this time. Pt states I would rather just go home and . SW educated pt on Hospice and that he could be able to go home with Hospice and they would just monitor his pain for him. Pt still denies Hospice at this time but informed pt that once his daughter comes in this afternoon that Hospice can be discussed again. Pt states understanding. Pt denied additional needs or concerns at this time. TENZIN informed Dr. Fountain that pt's daughter Brenda will be coming in today at 3:30pm. Plan: ROBERT [place] ARMATURE BANDER, ANCHORMAN
[2017-09-25] MEDS: HYDROmorphone 0.5 MG/0.5 ML SYRINGE IV (12:50)
[2017-09-25] MEDS: 0.9% NaCl Peripheral Flush Adult/Peds IV (12:50)
[2017-09-25 14:11] LABS: Pathologist Review Reviewed
[2017-09-25 14:14] LABS: Pathologist Review Reviewed
[2017-09-26] VITALS (15 sets, daily range): BP systolic 100–139; BP diastolic 54–92; PULSE 90–121; RESP 17–20; TEMP 36.6–37.9; O2SAT 90–97
[2017-09-26] MEDS: HYDROmorphone 0.5 MG/0.5 ML SYRINGE IV ×3 (02:27→14:17)
[2017-09-26] MEDS: Ondansetron 4 MG/2 ML Vial IV ×3 (02:27→20:25)
[2017-09-26] MEDS: 0.9% NaCl Peripheral Flush Adult/Peds IV ×5 (02:27→20:25)
[2017-09-26] MEDS: Albuterol 2.5 MG/3 ML VIAL.NEB. INHALATION (03:42)
[2017-09-26] MEDS: Ipratropium/Albuterol Sulfate 3 ML AMPUL.NEB INHALATION ×2 (07:19→18:59)
[2017-09-26] MEDS: Budesonide Respules 0.5 MG/2 ML AMPUL.NEB. INHALATION ×2 (07:19→18:59)
--- NOTE | 2017-09-26 08:19 | NURSING ---
PT HAD TAKEN O2 OFF
--- NOTE | 2017-09-26 08:28 | PCM.PROGNOTE ---
Subjective: Day #3 ceftriaxone All events the past 24 hours been reviewed. Afebrile since admission. Persistently tachycardic with a heart rate that ranges from 96-160 in the past 18 hours. Blood pressure is stable. Fluid balance is +3835 since admission. He had 600 cc of urine on 09/25/2017. Denies SOB and palpitations. No nausea and no vomiting Objective: General: Alert, oriented ?3, cooperative, appropriate, soft voice, able to follow commands, affect is flat and he looks chronically fatigued Neck: Supple, trachea midline, no enlarged cervical nodes, no enlarged supraclavicular nodes, carotids have brisk upstroke with excellent pulse volume, no carotid bruits, no JVD Lungs: Clear to auscultation, diminished, symmetric chest expansion, not tachypneic, no conversational dyspnea, no accessory muscle use Heart: increased resting heart rate and regular rhythm, normal S1, normal S2, no murmur, no gallop, no rub Abdomen: Soft, NT, ND, bowel sounds present, tender in the epigastric area with palpation Extremities: No clubbing, no peripheral edema, no cyanosis Musculoskeletal: cachectic in appearance He has a flat affect and appears to be depressed. - Physical Exam Vital Signs Temp Pulse Resp BP Pulse Ox 98.2 F 120 H 18 100/57 L 90 09/26/17 08:15 09/26/17 08:15 09/26/17 08:15 09/26/17 08:15 09/26/17 08:15 Oxygen Flow Rate (L/min) 4 Oxygen Delivery Method Nasal Cannula Intake and Output for Last 24 Hours 09/24/17 09/25/17 09/26/17 23:59 23:59 23:59 Intake Total 681 / 2652 1192 / 1192 1636 / 1636 Output Total 250 / 865 600 / 600 180 / 180 Balance 431 / 1787 592 / 592 1456 / 1456 Laboratory Tests Past 24 Hrs 09/25/17 06:04 Free T4 1.10 Medical Necessity - Tobacco Use Smoking Status: Former smoker Assessment/Plan All Active Problems (Last Updated 09/27/17 @ 08:23 by Mikal Fountain DO) UTI (urinary tract infection) (Ruled-out) Sepsis (Ruled-out) Hypokalemia (Acute) SVT (supraventricular tachycardia) (Acute) Abdominal pain (Acute) Ileus (Ruled-out) Acute pancreatitis (Ruled-out) JULIANA (acute kidney injury) (Resolved) Elevated LFTs (Resolved) Foreign body in esophagus (Resolved) Pneumonia (Resolved) Impressions 1. upper abdominal pain - pancreatitis ruled out.....lipase was never > 3X's the upper limits of normal. He has a hx of gastritis and PUD - this may be the etiology 2. malnutrition - moderate to severe per the accounting systems analyst 3. severe COPD 4. esophageal mass - suspicious this will be malignant 5. former smoker - quit in 2013 6. Normal sinus rhythm/sinus tachycardia/narrow complex supraventricular tachycardia 7. Hypokalemia 8. Normocytosis/leukocytosis-on hydroxyurea 9. Sepsis due to Urinary tract infection 10. Status post partial gastrectomy in the past for peptic ulcer disease 11. hx of Hyperuricemia - on Zyloprim 12. History of vocal cord cancer in August 2016 White blood cell count, platelet count have decreased with urea and the hemoglobin is stable at 12.4. TSH is increased at 19.1 and the free T4 is within normal limits. Hypokalemia has resolved. Urine culture has mixed gram-positive and gram-negative organisms. I reviewed the pathology report of the esophageal biopsy from the [facility] and there was no malignancy. 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 Continue current orders Epigastric pain is better with PPI Probable discharge in the a.m. Code Visit Inpatient E&M: [id number] Subs Hosp L2
--- NOTE | 2017-09-26 08:32 | PN_ITS ---
Subjective: Day #3 ceftriaxone All events the past 24 hours been reviewed. Afebrile since admission. Persistently tachycardic with a heart rate that ranges from 96-160 in the past 18 hours. Blood pressure is stable. Fluid balance is +3835 since admission. He had 600 cc of urine on 09/25/2017. Denies SOB and palpitations. No nausea and no vomiting Objective: General: Alert, oriented ?3, cooperative, appropriate, soft voice, able to follow commands, affect is flat and he looks chronically fatigued Neck: Supple, trachea midline, no enlarged cervical nodes, no enlarged supraclavicular nodes, carotids have brisk upstroke with excellent pulse volume , no carotid bruits, no JVD Lungs: Clear to auscultation, diminished, symmetric chest expansion, not tachypneic, no conversational dyspnea, no accessory muscle use Heart: increased resting heart rate and regular rhythm, normal S1, normal S2, no murmur, no gallop, no rub Abdomen: Soft, NT, ND, bowel sounds present, tender in the epigastric area with palpation Extremities: No clubbing, no peripheral edema, no cyanosis Musculoskeletal: cachectic in appearance He has a flat affect and appears to be depressed. - Physical Exam Vital Signs Temp Pulse Resp BP Pulse Ox 98.2 F 120 H 18 100/57 L 90 09/26/17 08:15 09/26/17 08:15 09/26/17 08:15 09/26/17 08:15 09/26/17 08:15 Oxygen Flow Rate (L/min) 4 Oxygen Delivery Method Nasal Cannula Intake and Output for Last 24 Hours 09/24/17 09/25/17 09/26/17 23:59 23:59 23:59 Intake Total 681 / 2652 1192 / 1192 1636 / 1636 Output Total 250 / 865 600 / 600 180 / 180 Balance 431 / 1787 592 / 592 1456 / 1456 Laboratory Tests Past 24 Hrs 09/25/17 06:04 Free T4 1.10 Medical Necessity - Tobacco Use Smoking Status: Former smoker Assessment/Plan All Active Problems (Last Updated 09/27/17 @ 08:23 by Mikal Fountain DO) UTI (urinary tract infection) (Ruled-out) Sepsis (Ruled-out) Hypokalemia (Acute) SVT (supraventricular tachycardia) (Acute) Abdominal pain (Acute) Ileus (Ruled-out) Acute pancreatitis (Ruled-out) JULIANA (acute kidney injury) (Resolved) Elevated LFTs (Resolved) Foreign body in esophagus (Resolved) Pneumonia (Resolved) Impressions 1. upper abdominal pain - pancreatitis ruled out.....lipase was never > 3X's the upper limits of normal. He has a hx of gastritis and PUD - this may be the etiology 2. malnutrition - moderate to severe per the vineyardist 3. severe COPD 4. esophageal mass - suspicious this will be malignant 5. former smoker - quit in 2013 6. Normal sinus rhythm/sinus tachycardia/narrow complex supraventricular tachycardia 7. Hypokalemia 8. Normocytosis/leukocytosis-on hydroxyurea 9. Sepsis due to Urinary tract infection 10. Status post partial gastrectomy in the past for peptic ulcer disease 11. hx of Hyperuricemia - on Zyloprim 12. History of vocal cord cancer in August 2016 White blood cell count, platelet count have decreased with urea and the hemoglobin is stable at 12.4. TSH is increased at 19.1 and the free T4 is within normal limits. Hypokalemia has resolved. Urine culture has mixed gram-positive and gram-negative organisms. I reviewed the pathology report of the esophageal biopsy from the [facility] and there was no malignancy. 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 Continue current orders Epigastric pain is better with PPI Probable discharge in the a.m. Code Visit Inpatient E&M: [id number] Subs Hosp L2
[2017-09-26 09:03] LABS: Hematocrit 40.2 % (40-54); Hemoglobin 12.4 g/dl (13.0-16.5)
--- NOTE | 2017-09-26 09:10 | RAD_ITS ---
STUDY: X-RAY CHEST REASON FOR EXAM: Male, 77 years old. Shortness of breath and dyspnea. TECHNIQUE: Single AP portable view of the chest. COMPARISON: Comparison is made with prior examination dated September 15, 2017. FINDINGS: EKG electrodes are seen. Since prior study, there has been progressive infiltration in the left lower lobe with a small left pleural effusion. Mild residual increased markings in the right mid lung. Normal size heart. Normal mediastinum and malia. Normal visualized pulmonary arteries. There is atherosclerotic calcification of the aortic arch with tortuosity. There are degenerative changes of the visualized thoracic spine. Normal visualized ribs, clavicles, and shoulders. Gaseous distention of the small bowel loops seen in the upper abdomen. RAD/Chest PA and Lateral IMPRESSION: Progressive left lower lobe infiltration with small left pleural effusion. Electronically Signed: Jr Desai MD at 11:13 EDT Tel [phone], Service support ,
[2017-09-26 09:30] LABS: Anion Gap 9 (5-15); BUN 2 mg/dL (7-18); BUN/Creat Ratio 2.6 RATIO (10-20); Calcium,Total 7.9 mg/dL (8.5-10.1); Chloride 100 mmol/L (98-107); Creatinine, Serum 0.77 mg/dL (0.70-1.30); EST Glomerular Filtration Rate 105 mL/min (>60); Est Glom Filt Rate - Afr Amer 127 mL/min (>60); Estimated Creatinine Clearance 48.04 ml/min; Glucose 98 mg/dL (74-106); Potassium 3.6 mmol/L (3.5-5.1); Sodium Level 135 mmol/L (136-145)
[2017-09-26 09:40] LABS: BNP,B-Type NATRIURETIC PEPTIDE 134.9 pg/mL (0-100)
[2017-09-26] MEDS: dilTIAZem CD 120 MG Capsule PO ×2 (09:53→21:10)
[2017-09-26] MEDS: Heparin Injection (Vial) 5,000 UNIT/ML VIAL 5000 UNIT SC ×2 (09:54→21:08)
[2017-09-26] MEDS: Ceftriaxone 1 GM/50 ML BAG IV (09:55)
--- NOTE | 2017-09-26 12:29 | NURSING ---
O2 DECREASED TO 3L NC
--- NOTE | 2017-09-26 21:30 | NURSING ---
Patient very upset with [facility] staff physician He states a doctor did not enter his room today, and is displeased that nursing will not disclose results of CXR. Patient was informed physician will be here tomorrow and will review results of the exam with him personally. Offered what I could do for patient at present time--he said saw the doctor roll by his room tonight and is not upset with nurses, but with physician and he would let her know tomorrow and also write a poor survey review. I reviewed with the patient what we have done so far during his stay. Patient appreciative but remains upset with physician. Molly, charger operator notified.
[2017-09-27] MEDS: HYDROmorphone 0.5 MG/0.5 ML SYRINGE IV (00:26)
[2017-09-27] MEDS: 0.9% NaCl Peripheral Flush Adult/Peds IV ×2 (00:26→06:43)
[2017-09-27] MEDS: proMETHazine 25 MG/ML Syringe 12.5 MG IV (00:26)
[2017-09-27 02:00] VITALS: BP 116/53; PULSE 89; RESP 18; TEMP 36.8; O2SAT 95
[2017-09-27 03:59] VITALS: PULSE 85
[2017-09-27] MEDS: Ondansetron 4 MG/2 ML Vial IV (06:43)
[2017-09-27 07:01] VITALS: PULSE 85; RESP 16; O2SAT 93
[2017-09-27] MEDS: Budesonide Respules 0.5 MG/2 ML AMPUL.NEB. INHALATION (07:01)
[2017-09-27] MEDS: Ipratropium/Albuterol Sulfate 3 ML AMPUL.NEB INHALATION (07:01)
[2017-09-27 07:31] VITALS: BP 116/52; PULSE 90; RESP 18; TEMP 36.8; O2SAT 93
[2017-09-27 07:35] VITALS: RESP 18; O2SAT 93
--- NOTE | 2017-09-27 08:08 | PCM.DC ---
- Discharge Diagnoses Current Active Problems: Current Active and Chronic Problems (Last Reviewed 05/03/17 @ 09:16 by Carmen Graham) Acute pancreatitis (Acute) You will use the following diet at home:: Regular Your food should be the consistency of: Puree Your liquids should be the consistency of: Regular/Thin Discharge Activity: Return to Normal Activity, May not drive while taking narcotic pain medications. Weight Bearing Status: Full weight bearing Call your doctor if you observe: Fever of 101 or Higher, Inability to have a bowel movement, Shortness of breath, Dizziness, Fainting spells, Swelling in the ankles, Chest pain, Uncontrolled pain, - - black tarry bowel movements, vomiting blood Additional Instructions: 1. I had one of the other physicias who is associated with the [facility] look up your biopsy report and it said there is no malignancy. 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 Stick to pureed and very soft foods. Use [place] instant breakfast made with ice cream and whole milk 3 times a day to help get your nutritional status to improve. 2. You will need to follow up with Dr. Aguillon for the elevated platelets and white blood cells. 3. You will also need to follow up at [facility] main [place] for your esophagus. Sometimes people with your problem need to have a stent placed in the esophagus and sometimes it can be dilated. 4. You are iron deficient and mildly anemia. I am starting you on an iron supplement and this can make you constipated. If that happens you should start metamucil or Miralax to keep the stool soft. Pending Tests on Discharge: none Allergies/Adverse Reactions: Allergies No Known Allergies Allergy (Verified 09/23/17 14:38) Medications to take at Discharge Albuterol Inhaler [Ventolin Hfa] 2 puff INHALATION Q6H PRN PRN 01/02/14 tiotropium 2.5 mcg-olodaterol 2.5 mcg/actuation mist for inhalation 2 inh INHALATION QDAY #4 g 08/14/17 Allopurinol [Zyloprim] 300 mg PO DAILY 09/23/17 Ascorbic Acid,Sod/Zinc Ox,Gluc [Zinc and C Lozenge] 1 each PO DAILY 09/23/17 Chlorhexidine Gluconate [Peridex] 15 ml MM DAILY 09/23/17 Cholecalciferol (Vitamin D3) [Vitamin D3] 1,000 unit PO DAILY 09/23/17 Fluticasone 110 Mcg [Flovent 110 Mcg] 1 puff INHALATION BID 09/23/17 Hydroxyurea [Hydrea] 1 cap PO DAILY 09/23/17 Mupirocin [Bactroban] 0.5 g NARES BID 09/23/17 Diltiazem CD [Cardizem CD] 120 mg PO BID #60 cap 09/27/17 Famotidine [Pepcid] 20 mg PO BID #60 tab 09/27/17 Ondansetron [Zofran Odt] 4 mg PO Q6H PRN PRN #14 tab.rapdis 09/27/17 Oxycodone HCl/Acetaminophen [Percocet 5/325] 1 tab PO Q4H PRN PRN 7 Days #30 tab 09/27/17 The following prescriptions were given: Oxycodone HCl/Acetaminophen [Percocet 5/325] 1 tab PO Q4H PRN PRN 7 Days #30 tab PRN Reason: Pain Ondansetron [Zofran Odt] 4 mg PO Q6H PRN PRN #14 tab.rapdis PRN Reason: Nausea/Vomiting Diltiazem CD [Cardizem CD] 120 mg PO BID #60 cap Famotidine [Pepcid] 20 mg PO BID #60 tab Primary Care Physician: Varun Wang MD [Primary Care Provider] - Please follow up with your Primary Care Physician in: 1-2 weeks Please Follow Up With: Joe Aguillon DO When: call for an appt Please Follow Up With: [facility] gastroenterology When: make an appt for follow up on the esophgeal stenosis Proposed Discharge Date: 09/27/17
--- NOTE | 2017-09-27 08:11 | NURSING ---
patient discussed nutritional supplement with patient- he is refusing ensure clear because he reports that it causes him to have diarrhea. This RN offered ensure enlive- pt again refused. He states that he drinks a supplement at home, [place] instant breakfast or boost and states that he is not going to try anything new due to issues with diarrhea.
--- NOTE | 2017-09-27 08:23 | DCINST_ITS ---
- Discharge Diagnoses Current Active Problems: Current Active and Chronic Problems (Last Reviewed 05/03/17 @ 09:16 by Carmen Graham) Acute pancreatitis (Acute) You will use the following diet at home:: Regular Your food should be the consistency of: Puree Your liquids should be the consistency of: Regular/Thin Discharge Activity: Return to Normal Activity, May not drive while taking narcotic pain medications. Weight Bearing Status: Full weight bearing Call your doctor if you observe: Fever of 101 or Higher, Inability to have a bowel movement, Shortness of breath, Dizziness, Fainting spells, Swelling in the ankles, Chest pain, Uncontrolled pain, - - black tarry bowel movements, vomiting blood Additional Instructions: 1. I had one of the other physicias who is associated with the [facility] look up your biopsy report and it said there is no malignancy. 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 Stick to pureed and very soft foods. Use [place] instant breakfast made with ice cream and whole milk 3 times a day to help get your nutritional status to improve. 2. You will need to follow up with Dr. Aguillon for the elevated platelets and white blood cells. 3. You will also need to follow up at [facility] main [place] for your esophagus. Sometimes people with your problem need to have a stent placed in the esophagus and sometimes it can be dilated. 4. You are iron deficient and mildly anemia. I am starting you on an iron supplement and this can make you constipated. If that happens you should start metamucil or Miralax to keep the stool soft. Pending Tests on Discharge: none Allergies/Adverse Reactions: Allergies No Known Allergies Allergy (Verified 09/23/17 14:38) Medications to take at Discharge Albuterol Inhaler [Ventolin Hfa] 2 puff INHALATION Q6H PRN PRN 01/02/14 tiotropium 2.5 mcg-olodaterol 2.5 mcg/actuation mist for inhalation 2 inh INHALATION QDAY #4 g 08/14/17 Allopurinol [Zyloprim] 300 mg PO DAILY 09/23/17 Ascorbic Acid,Sod/Zinc Ox,Gluc [Zinc and C Lozenge] 1 each PO DAILY 09/23/17 Chlorhexidine Gluconate [Peridex] 15 ml MM DAILY 09/23/17 Cholecalciferol (Vitamin D3) [Vitamin D3] 1,000 unit PO DAILY 09/23/17 Fluticasone 110 Mcg [Flovent 110 Mcg] 1 puff INHALATION BID 09/23/17 Hydroxyurea [Hydrea] 1 cap PO DAILY 09/23/17 Mupirocin [Bactroban] 0.5 g NARES BID 09/23/17 Diltiazem CD [Cardizem CD] 120 mg PO BID #60 cap 09/27/17 Famotidine [Pepcid] 20 mg PO BID #60 tab 09/27/17 Ondansetron [Zofran Odt] 4 mg PO Q6H PRN PRN #14 tab.rapdis 09/27/17 Oxycodone HCl/Acetaminophen [Percocet 5/325] 1 tab PO Q4H PRN PRN 7 Days #30 tab 09/27/17 The following prescriptions were given: Oxycodone HCl/Acetaminophen [Percocet 5/325] 1 tab PO Q4H PRN PRN 7 Days #30 tab PRN Reason: Pain Ondansetron [Zofran Odt] 4 mg PO Q6H PRN PRN #14 tab.rapdis PRN Reason: Nausea/Vomiting Diltiazem CD [Cardizem CD] 120 mg PO BID #60 cap Famotidine [Pepcid] 20 mg PO BID #60 tab Primary Care Physician: Varun Wang MD [Primary Care Provider] - Please follow up with your Primary Care Physician in: 1-2 weeks Please Follow Up With: Joe Aguillon DO When: call for an appt Please Follow Up With: [facility] gastroenterology When: make an appt for follow up on the esophgeal stenosis Proposed Discharge Date: 09/27/17
--- NOTE | 2017-09-27 08:37 | PCM.DC.SUM ---
Discharge Date and Diagnosis Date of Admission: 09/23/17 Date of Discharge: 09/27/17 - Primary Discharge Diagnosis Active and Suspected Problems (Last Reviewed 05/03/17 @ 09:16 by Carmen Graham) Hypokalemia (Acute) SVT (supraventricular tachycardia) (Acute) - controlled with Cardizem Upper Abdominal pain (Acute) UTI - ruled out Sepsis ruled out Pancreatitis- ruled out - Secondary Discharge Diagnosis Chronic Problems (Last Reviewed 05/03/17 @ 09:16 by Carmen Graham) Iron deficiency anemia (Chronic) Hyperuricemia (Chronic) quit in 2016 Benign esophageal stricture (Chronic)- reviewed the biopsy report from [facility] done 09/21/17 Malnutrition of moderate - severe degree (Chronic) Leukocytosis/thrombocytosis (Chronic) Dysphagia (Chronic) Hypersomnia (Chronic) COPD (chronic obstructive pulmonary disease) (Chronic) FEV1 51% Atypical chest pain (Chronic) History of peptic ulcer disease (Chronic) and partial gastrectomy 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 Emphysematous changes of the lung bases. Minimal bibasilar atelectasis, new in the interval. 2. Small bilateral pleural effusions representing a new interval finding. 3. Trace pericardial effusion, increased from the previous study. 4. Moderate splenomegaly. Calcified splenic granulomas are present. 5. There is a small amount of free fluid in the deep pelvis, also new in the interval. Electronically Signed: Jassi Smith MD at 16:35 EDT , Service support , Chest CT 09/23/17 15:17 IMPRESSION: 1. Diffuse emphysematous changes of the lungs. 2. Small focus of scarring of the posterior right upper lobe, stable in the interval. 3. Small bibasilar pleural effusions similar to the previous study. 4. There are mild atelectatic changes of the lung bases, stable in the interval. 5. 5 mm nodule of the right lower lobe axial image 75, decreased in size in the previous study. 6. Trace pericardial effusion, increased from the previous study. 7. Calcified right hilar and mediastinal nodes. Enlarged right hilar node measuring approximately 2.4 cm, stable in the interval. Electronically Signed: Jassi Smith MD at 16:47 EDT , Service support , Chest X-Ray 09/26/17 09:10 IMPRESSION: Progressive left lower lobe infiltration with small left pleural effusion. Electronically Signed: Jr Desai MD at 11:13 EDT Tel [phone], Service support , Laboratory Results - last 24 hr 09/26/17 09/26/17 09/26/17 08:45 08:45 08:45 Hgb 12.4 L Hct 40.2 Sodium 135 L Potassium 3.6 Chloride 100 Carbon Dioxide 26.0 Anion Gap 9 BUN 2 L Creatinine 0.77 Estim Creat Clear Calc 48.04 Est GFR (MDRD) Af Amer 127 Est GFR (MDRD) Non-Af 105 BUN/Creatinine Ratio 2.6 L Glucose 98 Calcium 7.9 L B-Natriuretic Peptide 134.9 H Microbiology 09/23/17 18:51 Urine, Clean Catch Urine Culture - Final Mixed Gram Pos & Gram Neg Org None Operations: None Procedures: None Summary of Care Provided: Mr. 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 He has recently been diagnosed with thrombocytosis/leukocytosis and started on hydroxyurea. He presented to the emergency department at [facility] on 09/23/2017 with a complaint of epigastric pain that had started that morning. He was just discharged from the [facility] 1 day prior to presentation to [facility] and had EGD and biopsy of an esophageal mass at that time. Pain was relieved with morphine in the emergency department. Lipase was elevated at 670 but he had experienced nausea and retching. This is less than 3 times the upper limits of normal and not significant. UA had 10-25 WBCs per high-power field with no bacteria. Chest/abdomen/pelvis CTs show diffuse emphysematous changes of the lungs with small bibasilar pleural effusion similar to a previous study. The liver, gallbladder and extrahepatic biliary system appeared normal. No evidence of bowel obstruction. Pancreas looked normal. He was admitted to the hospital for UTI and started on Rocephin. He was started on a clear liquid diet. Protonix was started. ELYTES were supplemented. Urine culture was sent and had mixed gram-positive and gram negatives consistent with contamination. Rocephin was discontinued. The upper abdominal pain resolved with Protonix. The pathology report from the esophageal biopsy at the [facility] was negative for malignancy. The chronic change was likely secondary to radiation he received for laryngeal cancer 5 years prior to admission to [facility]. White blood cell count and platelet count decreased significantly during his admission with hydroxyurea. On 09/25/2017 the white blood cell count was 23,000, down from 49,300 at admission and the platelet count was 556,000, down from 1,513,000 at admission. Globin was stable at 12.4. He was instructed to stick to a pur?ed diet with very soft foods. He will use [place] instant breakfast made with ice cream and whole milk 3 times a day to help improve malnutrition. He was instructed to follow-up with Dr. Aguillon for thrombocytosis and leukocytosis. He will follow-up at the [facility] for his esophageal problems for possible dilation and/or stent placement. He was started on an iron supplement for mild iron deficiency anemia. General: Alert, oriented ?3, cooperative, appropriate, soft voice, able to follow commands, affect is flat and he looks chronically fatigued Neck: Supple, trachea midline, no enlarged cervical nodes, no enlarged supraclavicular nodes, carotids have brisk upstroke with excellent pulse volume, no carotid bruits, no JVD Lungs: Clear to auscultation, diminished, symmetric chest expansion, not tachypneic, no conversational dyspnea, no accessory muscle use Heart: increased resting heart rate and regular rhythm, normal S1, normal S2, no murmur, no gallop, no rub Abdomen: Soft, NT, ND, bowel sounds present, tender in the epigastric area with palpation Extremities: No clubbing, no peripheral edema, no cyanosis Musculoskeletal: cachectic in appearance He has a flat affect and appears to be depressed. Discharge Activity: Return to Normal Activity, May not drive while taking narcotic pain medications. Weight Bearing Status: Full weight bearing Call your doctor if you observe: Fever of 101 or Higher, Inability to have a bowel movement, Shortness of breath, Dizziness, Fainting spells, Swelling in the ankles, Chest pain, Uncontrolled pain, - - black tarry bowel movements, vomiting blood Home Medications: Medications to take at Discharge Albuterol Inhaler [Ventolin Hfa] 2 puff INHALATION Q6H PRN PRN 01/02/14 tiotropium 2.5 mcg-olodaterol 2.5 mcg/actuation mist for inhalation 2 inh INHALATION QDAY #4 g 08/14/17 Allopurinol [Zyloprim] 300 mg PO DAILY 09/23/17 Ascorbic Acid,Sod/Zinc Ox,Gluc [Zinc and C Lozenge] 1 each PO DAILY 09/23/17 Chlorhexidine Gluconate [Peridex] 15 ml MM DAILY 09/23/17 Cholecalciferol (Vitamin D3) [Vitamin D3] 1,000 unit PO DAILY 09/23/17 Fluticasone 110 Mcg [Flovent 110 Mcg] 1 puff INHALATION BID 09/23/17 Hydroxyurea [Hydrea] 1 cap PO DAILY 09/23/17 Mupirocin [Bactroban] 0.5 g NARES BID 09/23/17 Diltiazem CD [Cardizem CD] 120 mg PO BID #60 cap 09/27/17 Famotidine [Pepcid] 20 mg PO BID #60 tab 09/27/17 Ferrous Sulfate Syrup 300 mg GT BID #300 udc 09/27/17 Ondansetron [Zofran Odt] 4 mg PO Q6H PRN PRN #14 tab.rapdis 09/27/17 Oxycodone HCl/Acetaminophen [Percocet 5/325] 1 tab PO Q4H PRN PRN 7 Days #30 tab 09/27/17 Following Prescrptions Were Given to Patient: Oxycodone HCl/Acetaminophen [Percocet 5/325] 1 tab PO Q4H PRN PRN 7 Days #30 tab PRN Reason: Pain Ondansetron [Zofran Odt] 4 mg PO Q6H PRN PRN #14 tab.rapdis PRN Reason: Nausea/Vomiting Diltiazem CD [Cardizem CD] 120 mg PO BID #60 cap Famotidine [Pepcid] 20 mg PO BID #60 tab Ferrous Sulfate Syrup 300 mg GT BID #300 udc Primary Care Physician: Varun Wang MD [Primary Care Provider] - Please follow up with your Primary Care Physician in: 1-2 weeks Please Follow Up With: Joe Aguillon DO When: call for an appt Please Follow Up With: [facility] gastroenterology When: make an appt for follow up on the esophgeal stenosis Disposition: Home Minutes spent on discharge:: 30 Patient Condition:: Stable Medical Necessity - Tobacco Use Smoking Status: Former smoker Meaningful Use Info Meaningful Use Diagnoses (Choose all that apply): None applicable Code Visit Inpatient E&M: 60766 Disch Hosp
--- NOTE | 2017-09-27 08:42 | DS.PCM_ITS ---
Discharge Date and Diagnosis Date of Admission: 09/23/17 Date of Discharge: 09/27/17 - Primary Discharge Diagnosis Active and Suspected Problems (Last Reviewed 05/03/17 @ 09:16 by Carmen Graham ) Hypokalemia (Acute) SVT (supraventricular tachycardia) (Acute) - controlled with Cardizem Upper Abdominal pain (Acute) UTI - ruled out Sepsis ruled out Pancreatitis- ruled out - Secondary Discharge Diagnosis Chronic Problems (Last Reviewed 05/03/17 @ 09:16 by Carmen Graham) Iron deficiency anemia (Chronic) Hyperuricemia (Chronic) quit in 2016 Benign esophageal stricture (Chronic)- reviewed the biopsy report from [facility] done 09/21/17 Malnutrition of moderate - severe degree (Chronic) Leukocytosis/thrombocytosis (Chronic) Dysphagia (Chronic) Hypersomnia (Chronic) COPD (chronic obstructive pulmonary disease) (Chronic) FEV1 51% Atypical chest pain (Chronic) History of peptic ulcer disease (Chronic) and partial gastrectomy 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 Emphysematous changes of the lung bases. Minimal bibasilar atelectasis, new in the interval. 2. Small bilateral pleural effusions representing a new interval finding. 3. Trace pericardial effusion, increased from the previous study. 4. Moderate splenomegaly. Calcified splenic granulomas are present. 5. There is a small amount of free fluid in the deep pelvis, also new in the interval. Electronically Signed: Jassi Smith MD at 16:35 EDT , Service support , Chest CT 09/23/17 15:17 IMPRESSION: 1. Diffuse emphysematous changes of the lungs. 2. Small focus of scarring of the posterior right upper lobe, stable in the interval. 3. Small bibasilar pleural effusions similar to the previous study. 4. There are mild atelectatic changes of the lung bases, stable in the interval. 5. 5 mm nodule of the right lower lobe axial image 75, decreased in size in the previous study. 6. Trace pericardial effusion, increased from the previous study. 7. Calcified right hilar and mediastinal nodes. Enlarged right hilar node measuring approximately 2.4 cm, stable in the interval. Electronically Signed: Jassi Smith MD at 16:47 EDT , Service support , Chest X-Ray 09/26/17 09:10 IMPRESSION: Progressive left lower lobe infiltration with small left pleural effusion. Electronically Signed: Jr Desai MD at 11:13 EDT Tel [phone], Service support , Laboratory Results - last 24 hr 09/26/17 09/26/17 09/26/17 08:45 08:45 08:45 Hgb 12.4 L Hct 40.2 Sodium 135 L Potassium 3.6 Chloride 100 Carbon Dioxide 26.0 Anion Gap 9 BUN 2 L Creatinine 0.77 Estim Creat Clear Calc 48.04 Est GFR (MDRD) Af Amer 127 Est GFR (MDRD) Non-Af 105 BUN/Creatinine Ratio 2.6 L Glucose 98 Calcium 7.9 L B-Natriuretic Peptide 134.9 H Microbiology 09/23/17 18:51 Urine, Clean Catch Urine Culture - Final Mixed Gram Pos & Gram Neg Org None Operations: None Procedures: None Summary of Care Provided: Mr. 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 He has recently been diagnosed with thrombocytosis/leukocytosis and started on hydroxyurea. He presented to the emergency department at [facility] on 2017 with a complaint of epigastric pain that had started that morning. He was just discharged from the [facility] 1 day prior to presentation to [facility] and had EGD and biopsy of an esophageal mass at that time. Pain was relieved with morphine in the emergency department. Lipase was elevated at 670 but he had experienced nausea and retching. This is less than 3 times the upper limits of normal and not significant. UA had 10-25 WBCs per high-power field with no bacteria. Chest/abdomen/pelvis CTs show diffuse emphysematous changes of the lungs with small bibasilar pleural effusion similar to a previous study. The liver, gallbladder and extrahepatic biliary system appeared normal. No evidence of bowel obstruction. Pancreas looked normal. He was admitted to the hospital for UTI and started on Rocephin. He was started on a clear liquid diet. Protonix was started. ELYTES were supplemented. Urine culture was sent and had mixed gram-positive and gram negatives consistent with contamination. Rocephin was discontinued. The upper abdominal pain resolved with Protonix. The pathology report from the esophageal biopsy at the [facility] was negative for malignancy. The chronic change was likely secondary to radiation he received for laryngeal cancer 5 years prior to admission to [facility]. White blood cell count and platelet count decreased significantly during his admission with hydroxyurea. On 09/25/2017 the white blood cell count was 23,000 , down from 49,300 at admission and the platelet count was 556,000, down from 1, 513,000 at admission. Globin was stable at 12.4. He was instructed to stick to a pur?ed diet with very soft foods. He will use carnation instant breakfast made with ice cream and whole milk 3 times a day to help improve malnutrition. He was instructed to follow-up with Dr. Aguillon for thrombocytosis and leukocytosis. He will follow-up at the [facility] for his esophageal problems for possible dilation and/or stent placement. He was started on an iron supplement for mild iron deficiency anemia. General: Alert, oriented ?3, cooperative, appropriate, soft voice, able to follow commands, affect is flat and he looks chronically fatigued Neck: Supple, trachea midline, no enlarged cervical nodes, no enlarged supraclavicular nodes, carotids have brisk upstroke with excellent pulse volume , no carotid bruits, no JVD Lungs: Clear to auscultation, diminished, symmetric chest expansion, not tachypneic, no conversational dyspnea, no accessory muscle use Heart: increased resting heart rate and regular rhythm, normal S1, normal S2, no murmur, no gallop, no rub Abdomen: Soft, NT, ND, bowel sounds present, tender in the epigastric area with palpation Extremities: No clubbing, no peripheral edema, no cyanosis Musculoskeletal: cachectic in appearance He has a flat affect and appears to be depressed. Discharge Activity: Return to Normal Activity, May not drive while taking narcotic pain medications. Weight Bearing Status: Full weight bearing Call your doctor if you observe: Fever of 101 or Higher, Inability to have a bowel movement, Shortness of breath, Dizziness, Fainting spells, Swelling in the ankles, Chest pain, Uncontrolled pain, - - black tarry bowel movements, vomiting blood Home Medications: Medications to take at Discharge Albuterol Inhaler [Ventolin Hfa] 2 puff INHALATION Q6H PRN PRN 01/02/14 tiotropium 2.5 mcg-olodaterol 2.5 mcg/actuation mist for inhalation 2 inh INHALATION QDAY #4 g 08/14/17 Allopurinol [Zyloprim] 300 mg PO DAILY 09/23/17 Ascorbic Acid,Sod/Zinc Ox,Gluc [Zinc and C Lozenge] 1 each PO DAILY 09/23/17 Chlorhexidine Gluconate [Peridex] 15 ml MM DAILY 09/23/17 Cholecalciferol (Vitamin D3) [Vitamin D3] 1,000 unit PO DAILY 09/23/17 Fluticasone 110 Mcg [Flovent 110 Mcg] 1 puff INHALATION BID 09/23/17 Hydroxyurea [Hydrea] 1 cap PO DAILY 09/23/17 Mupirocin [Bactroban] 0.5 g NARES BID 09/23/17 Diltiazem CD [Cardizem CD] 120 mg PO BID #60 cap 09/27/17 Famotidine [Pepcid] 20 mg PO BID #60 tab 09/27/17 Ferrous Sulfate Syrup 300 mg GT BID #300 udc 09/27/17 Ondansetron [Zofran Odt] 4 mg PO Q6H PRN PRN #14 tab.rapdis 09/27/17 Oxycodone HCl/Acetaminophen [Percocet 5/325] 1 tab PO Q4H PRN PRN 7 Days #30 tab 09/27/17 Following Prescrptions Were Given to Patient: Oxycodone HCl/Acetaminophen [Percocet 5/325] 1 tab PO Q4H PRN PRN 7 Days #30 tab PRN Reason: Pain Ondansetron [Zofran Odt] 4 mg PO Q6H PRN PRN #14 tab.rapdis PRN Reason: Nausea/Vomiting Diltiazem CD [Cardizem CD] 120 mg PO BID #60 cap Famotidine [Pepcid] 20 mg PO BID #60 tab Ferrous Sulfate Syrup 300 mg GT BID #300 udc Primary Care Physician: Varun Wang MD [Primary Care Provider] - Please follow up with your Primary Care Physician in: 1-2 weeks Please Follow Up With: Joe Aguillon DO When: call for an appt Please Follow Up With: [facility] gastroenterology When: make an appt for follow up on the esophgeal stenosis Disposition: Home Minutes spent on discharge:: 30 Patient Condition:: Stable Medical Necessity - Tobacco Use Smoking Status: Former smoker Meaningful Use Info Meaningful Use Diagnoses (Choose all that apply): None applicable Code Visit Inpatient E&M: 43489 Disch Hosp
[2017-09-27] MEDS: morphine (oral solution) 10MG/0.5ML Syringe 6 MG SL/PO (09:57)
--- NOTE | 2017-09-27 10:36 | NURSING ---
This RN called Miriam pharmacist at [facility] regarding if Cardizem and hydrourea could be opened or not and given to pt. Notified that they should not be and that there is a form of Cardizem, Tazia that can be opened and sprinkled on applesauce. Also notified that hydrourea should not be opened either and that there is a form of that medication that can be dissolved in liquid. This RN notified patient of same and then contacted [facility] pharmacy and spoke to richard Ramos regarding same. Richard states that the Cardizem can be opened and sprinkled because the medication is in little round pellets. Notified Richard of what pharmacist Miriam states. Richard states he will look into it and see about getting Tazia if their pharmacy carries it, but that if they do not the cardizem CD will work fine. Patients home med list states that he takes hydrourea- pt currently denying- however, this RN educated patient that if he does have this medication at home in capsule form he will need to contact provider that ordered medication and have the med changed to water soluble form. Patient again denied taking med at home- but verbalized understanding.
--- NOTE | 2017-09-27 10:45 | CASEMGMT ---
Social Work Note SW in to meet with pt as pt is set to discharge today. SW discussed additional resources in the community such as [email or web address] [facility], [facility] [employer] [facility], food pantries, and [facility]. Pt denied additional resources. This worker has discussed with pt in previous conversations about Home Health, Palliative Care and Hospice care and once again pt denied resources. Pt denied additional needs or concerns at this time. 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
--- NOTE | 2017-09-27 12:11 | NURSING ---
pt has order for 2.5L oxygen at home PRN. Patient was satting 93% here on 2.5 liters. This RN advised patient that if he is leaving without his oxygen here- he needs to get home and monitor his oxygen and reapply as needed per home orders. Patient verbalized understanding and is refusing to have his son get his home oxygen. Son present at this time. patient denies further needs and requests to be assisted down to front entrance- volunteers called and arrived promptly to assist with transport.
== END 2017-09-27 12:08 | disposition home or self-care (01) | DRG 391 ==
LOC: ED 16:18 → MS3 18:20
PROVIDERS: Admitting Provider Student in an Organized Health Care Education/Training Program; Emergency Provider Emergency Medicine; Family Provider Internal Medicine; PCP Internal Medicine; Visit Provider Internal Medicine
DX: R10.10 Upper abdominal pain, unspecified (principal); E43 Unspecified severe protein-calorie malnutrition; Z68.1 Body mass index [BMI] 19.9 or less, adult; I47.1 Supraventricular tachycardia; E87.6 Hypokalemia; J44.9 Chronic obstructive pulmonary disease, unspecified; Z87.891 Personal history of nicotine dependence; Z92.3 Personal history of irradiation; Z85.21 Personal history of malignant neoplasm of larynx; Z90.3 Acquired absence of stomach [part of]; Z87.11 Personal history of peptic ulcer disease; D50.9 Iron deficiency anemia, unspecified; K22.2 Esophageal obstruction; D72.829 Elevated white blood cell count, unspecified; D47.3 Essential (hemorrhagic) thrombocythemia; R13.10 Dysphagia, unspecified; Z79.899 Other long term (current) drug therapy
CPT/HCPCS: 36415; 71046; 71250; 74176; 80048; 80053; 81001; 83605; 83690; 83735; 83880; 84100; 84439; 84443; 85014; 85018; 85025; 85027; 85610; 87086; 87088; 93005; 94640; 97802; 97803; 99285; J7030; J7040; J7050; A4216; J2405

== ENCOUNTER 2017-11-29 06:44 | Emergency (ER) | payer OTHER, SELFPAY ==
[2017-11-29] VITALS (7 sets, daily range): BP systolic 151–178; BP diastolic 87–97; PULSE 89–103; RESP 15–20; TEMP 36.3–36.7; O2SAT 89–98; BMI 16.7
--- NOTE | 2017-11-29 07:10 | EKG12_ITS ---
Test Reason : CP Blood Pressure : / mmHG Vent. Rate : 091 BPM Atrial Rate : 091 BPM P-R Int : 184 ms QRS Dur : 088 ms QT Int : 376 ms P-R-T Axes : 075 -38 060 degrees QTc Int : 462 ms Normal sinus rhythm Left axis deviation Poor R wave progression Abnormal ECG Confirmed by EDER MARQUEZ, MAURA ([id number]), editor greeting card NICKY JOLLEY ([id number]) on 12/03/2017 2:00:38 PM Referred By: BEA Confirmed By:MAURA GAINES MD
--- NOTE | 2017-11-29 07:10 | CT_ITS ---
STUDY: CT ABDOMEN AND PELVIS WITH CONTRAST REASON FOR EXAM: Male, 77 years old. History of recent esophageal dilatation. Abdominal pain and nausea and vomiting. Patient has a history of laryngeal cancer and tongue cancer. RADIATION DOSAGE (If Supplied By Facility): CTDIvol = ( 8.26 ) mGy, DLP = ( 581.91 ) mGycm TECHNIQUE: Transaxial images were obtained from the dome of the diaphragm to the symphysis pubis without oral contrast. 100CC ml of Isovue 300 contrast was administered. Sagittal and coronal images were reconstructed. Individualized dose optimization techniques were used for this CT. COMPARISON: Comparison is made with prior study dated September 23, 2017. FINDINGS: The previously seen small bilateral pleural effusions have resolved. Mild increased markings at the lung bases suggestive of scarring and/or atelectasis. There is a 1.1 cm pleural-based nodular density along the posterior medial aspect of the left lower lobe. This may represent scarring. Follow-up is recommended. Coronary artery calcification. Small pericardial effusion. Dilated intrahepatic biliary ducts. Slightly distended gallbladder. Dilated common bile duct. There is moderate splenomegaly. Stable calcified splenic granulomas. There is diffuse atrophy of the pancreas. An intraluminal filling defect is seen within the superior mesenteric vein in keeping with superior mesenteric venous thrombosis. This extends into the proximal portion of the portal vein at the spinal pleural junction. Normal bilateral adrenal glands. Normal right kidney. Normal left kidney. Normal visualized stomach. Surgical clips are seen at the gastroesophageal junction. Normal small intestine. Normal colon. The appendix is visualized and appears normal. There is diffuse atherosclerotic calcification of the abdominal aorta, without a demonstrated aneurysm. Normal inferior vena cava. There is borderline retroperitoneal lymphadenopathy with enlarged nodes no greater than 10mm in the short axis diameter. Distended urinary bladder. Normal abdominal wall. There are diffuse degenerative changes of the visualized lumbar spine. CT/Abdomen/Pelvis WITH Contrast IMPRESSION: Findings suggest mild scarring at the lung bases. 1.1 cm pleural-based nodular density in the left lower lobe. Mild dilatation of the intrahepatic biliary ducts and mild dilatation of the gallbladder. Splenomegaly. Thrombosis of the superior mesenteric vein. Electronically Signed: Jr Desai MD at 10:37 EDT Tel [phone], Service support ,
--- NOTE | 2017-11-29 07:11 | RAD_ITS ---
STUDY: X-RAY CHEST REASON FOR EXAM: Male, 77 years old. Hypoxia and pain. TECHNIQUE: Single AP portable view of the chest. COMPARISON: 09/26/2017. 11/15/2016. FINDINGS: There is mild chronic interstitial prominence in the lungs. There is no demonstrated focal pulmonary infiltrate. There is no demonstrated pleural abnormality. There is borderline cardiomegaly. Normal mediastinum and malia. Normal visualized pulmonary arteries. There is atherosclerotic calcification of the aortic arch with tortuosity. Normal visualized thoracic spine. Normal visualized ribs, clavicles, and shoulders. There is no demonstrated abnormality of the visualized soft tissue structures of the upper abdomen. RAD/Chest 1 View (Portable) IMPRESSION: Borderline heart size. Mild chronic interstitial changes. No evidence for acute cardiopulmonary pathology. Electronically Signed: Crispin Rossi MD at 7:47 EDT , Service support ,
[2017-11-29] MEDS: 0.9% Normal Saline 1,000 ML 125 ML IV (07:32)
[2017-11-29] MEDS: Ondansetron 4 MG/2 ML Vial IV (07:32)
[2017-11-29] MEDS: HYDROmorphone 1 MG/ML Syringe IV ×2 (07:32→12:27)
[2017-11-29 07:38] LABS: Absolute Lymphocyte Count 1.26 X10^3/ul (0.83-4.51); Absolute Neutrophil Count 21.3 X10^3/uL (2.0-7.7); Basophil% 2.8 % (0-1); Eosinophils% 2.4 % (0-5); Hematocrit 42.1 % (40-54); Hemoglobin 12.4 g/dl (13.0-16.5); Lymphocyte # 1.26 X10^3/ul (4.0); Mean Corp Hgb Conc 29.5 g/gl (32-36); Mean Corpuscular Hgb 19.6 pg (27.0-32.0); Mean Corpuscular Volume 66.6 fL (80-94); Mean Platelet Vol. 9.1 fl (6.2-12.0); Monocyte# 1.23 X10^3/uL; Monocyte% 4.9 % (0-10); Neutrophil # 21.29 X10^3/uL (2.7-7.7); Neutrophil % 84.6 % (47-70); RBC Distribution Width CV 19.6 % (11.6-14.6); RBC Distribution Width SD 47.2 fl (35.1-43.9); Red Blood Count 6.32 M/mm3 (4.6-6.2); White Blood Count 25.2 K/mm3 (4.4-11.0)
[2017-11-29 07:41] LABS: Differential Indicated SCAN CRITERIA MET; POSITIVE COUNT YES; POSITIVE DIFFERENTIAL YES; POSITIVE MORPHOLOGY YES; Platelet Count 1034 K/mm3 (150-450)
--- NOTE | 2017-11-29 07:41 | ED.RN ---
lab called platelets of 1,034. dr davis
[2017-11-29 07:44] LABS: ALB/GLOB Ratio 1.1 RATIO (0.9-2.4); AST(SGOT) 18 U/L (15-37); Alanine Aminotransfer ALT/SGPT 18 U/L (16-61); Albumin, Serum 3.9 g/dL (3.2-5.0); Alkaline Phosphatase 133 U/L (45-117); Anion Gap 8 (5-15); BUN 10 mg/dL (7-18); BUN/Creat Ratio 12.2 RATIO (10-20); Chloride 106 mmol/L (98-107); Creatinine, Serum 0.82 mg/dL (0.70-1.30); EST Glomerular Filtration Rate 97 mL/min (>60); Est Glom Filt Rate - Afr Amer 117 mL/min (>60); Estimated Creatinine Clearance 58.16 ml/min; Globulin 3.5 g/dL (2.2-4.2); Glucose 124 mg/dL (74-106); Lipase 116 U/L (73-393); Potassium 3.6 mmol/L (3.5-5.1); Protein, Total 7.4 g/dL (6.4-8.2); Sodium Level 141 mmol/L (136-145)
--- NOTE | 2017-11-29 07:47 | CT_ITS ---
STUDY: CT CHEST WITH CONTRAST REASON FOR EXAM: Male, 77 years old. Recent esophageal dilatation. Patient presents with nausea vomiting and abdominal pain. History of laryngeal carcinoma. RADIATION DOSAGE (If Supplied By Facility): CTDIvol = ( 8.26 ) mGy, DLP = ( 581.91 ) mGycm TECHNIQUE: Transaxial imaging was performed following intravenous administration of 100CC ml of Isovue 300 contrast material. Multiplanar coronal and sagittal images were reformatted. Individualized dose optimization techniques were used for this CT. COMPARISON: Comparison is made with prior study dated September 23, 2017. FINDINGS: Once again, there is diffuse emphysematous changes. Stable area of scarring in the posterior aspect of the right upper lobe. There is a 1.7 cm by 1.2 cm nodular density adjacent to the descending thoracic aorta at the left lung base as seen on axial image #75. A similar appearing pleural-based nodule is seen in the posteromedial aspect of the left lower lobe measuring 1.7 cm. These were not seen on prior study due to the presence of the pleural effusions. Correlation with a PET scan is recommended. The previously seen pleural effusions have resolved. Normal heart and pericardium. Normal mediastinum. Enlarged right hilar lymph node measuring 2.4 cm. Normal enhanced pulmonary arteries. There is atherosclerotic calcification of the aortic arch with tortuosity and elongation of the aortic arch and descending thoracic aorta. Increased thoracic kyphosis. There is no demonstrated abnormality of the visualized upper abdomen. CT/Chest WITH Contrast IMPRESSION: Diffuse emphysematous changes. Stable right hilar node enlargement. There are 2 noncalcified nodular densities in the left lower lobe as described. Correlation with a PET scan is recommended. Electronically Signed: Jr Desai MD at 10:50 EDT Tel [phone], Service support ,
[2017-11-29 08:06] LABS: Lactic Acid 1.2 mmol/L (0.4-2.0)
[2017-11-29] MEDS: Ipratropium/Albuterol Sulfate 3 ML AMPUL.NEB INHALATION (10:44)
[2017-11-29] MEDS: proMETHazine 25 MG/ML Syringe 6.25 MG IV (11:01)
--- NOTE | 2017-11-29 11:45 | ED.VISSUMM ---
- ER Visit Summary Date of Service: 11/29/17 Chief Complaint: [Abdominal pain] History of Present Illness: The patient is a 77 M [presents the emergency department complaint of abdominal pain that started around 8 PM last night. Patient rates his pain currently as a 7 out of 10. Patient states the pain started in his left upper quadrant, radiated to his epigastric region. Patient's had nausea and he has made himself vomit to see if he can relieve the discomfort. Patient's not had any fevers. Patient states that he had his esophagus dilated 2 days ago at the [facility]. Patient also has a history of COPD and history of vocal cord cancer. Patient has had history of pancreatitis in the past. Patient quit smoking 4 years ago and admits to occasional alcohol use.] Patient uses home O2 at night typically. Physical Examination: [HEENT-PERRLA, EOMI. Cranial nerves II through XII grossly intact. TMs clear. Mucous membranes moist. No adenopathy. Cardiovascular-regular rate and rhythm without murmur or ectopy Lungs-clear to auscultation, chest wall stable without crepitus or subcu emphysema Abdomen-normoactive bowel sounds, soft. Patient has tenderness to palpation over left upper quadrant and epigastric region with some guarding. There is no rebound, rigidity, or perineal signs. Extremities-intact ?4, normal range of motion, normal pulses, atraumatic] Test Results: [EKG obtained on arrival showed a sinus rhythm with a ventricular rate of 91 bpm with no acute ST segment changes. CBC with differential showed an elevated white count of 25.2, hemoglobin 12, hematocrit 42, platelets 1034. Chemistries unremarkable. LFTs unremarkable. Lipase was normal at 116. Troponin was less than 0.015. Lactate was normal at 1.2. CT scan of the chest showed some emphysematous changes however no infiltrates. Patient has some pleural-based densities left lower lobe. Patient had some mild dilatation of the intrahepatic biliary duct and mild dilatation of the gallbladder. Patient was noted to have thrombosis of the superior mesenteric vein on CT scan of the abdomen and pelvis. There is no evidence of perforation.] Emergency Department Course and Treatment: [Patient case discussed with Dr. Angie Perales who is on-call for general surgery who asked that we transfer patient to [facility]] Treatment Plan: [Transfer to [facility]] Disposition: [] Transfer Impression: [Abdominal pain Superior mesenteric vein thrombosis] Hypoxemia-COPD exacerbation This note was generated with [employer] dictation software. It may contain incorrect words, spelling, and punctuation that were not noted in review of the chart prior to signing ED Disposition - Plan for ED Patient: Chief Complaint: Abd Pain Referrals: Varun Wang MD [Primary Care Provider] -
--- NOTE | 2017-11-29 13:36 | ED.RN ---
CALLED [facility] TO CHECK ON THE STATUS OF PT TRANSFER. SPOKE WITH EDNA IN THE TRANSFER CENTER. SHE STATED THAT WE ARE STILL WAITING ON A BED AND PT IS AT HIGH PRIORITY AND SHOULD HAVE A BED LATER THIS AFTERNOON.
[2017-11-29 13:57] LABS: Pathologist Review Reviewed
== END 2017-11-29 16:17 | disposition short-term general hospital (02) ==
PROVIDERS: Emergency Provider Emergency Medicine; Family Provider Internal Medicine; PCP Internal Medicine
DX: R10.9 Unspecified abdominal pain (principal); I81 Portal vein thrombosis; J44.1 Chronic obstructive pulmonary disease with (acute) exacerbation; R09.02 Hypoxemia; Z87.19 Personal history of other diseases of the digestive system; Z87.891 Personal history of nicotine dependence; Z85.21 Personal history of malignant neoplasm of larynx
CPT/HCPCS: 71045; 71260; 74177; 80053; 83605; 83690; 84484; 85025; 93005; 94640; 99284; J7030; Q9967; A4216; J2405

== ENCOUNTER → 2017-12-25 09:49 | Outpatient (CLI) | payer OTHER, SELFPAY ==
--- NOTE | 2017-12-25 13:36 | PFTCOMP ---
COMPLETE PULMONARY FUNCTION TEST INTERPRETATION Brief HPI: Patient is a 77 year old male, currently under the care of Rosie Perea, who presents to [facility] for complete pulmonary function tests secondary to diagnosis of COPD. Respiratory therapist reports good effort and reproducible results. Interpretation: Forced expiration spirometry shows a very severe large airways obstructive ventilatory defect with an FEV1 of 46% predicted. There is no significant bronchodilator response by ATS criteria. Spirograms are of good quality and plateau slowly, indicating slowly emptying areas of the lungs. The respiratory flow volume loop shows decreased expiratory flow rates at all lung volumes consistent with airway obstruction. Lung volumes by body plethysmography show an elevated total lung capacity at 8.03 L, 121% predicted. FRC and RV are elevated out of proportion. Lung volume measurements are consistent with hyperinflation and air-trapping. Diffusion capacity by carbon monoxide is decreased at 41% predicted. The airway resistance is elevated. Compared to previous pulmonary function tests from 02/20/2017, there has been a significant reduction in FVC and FEV1. Impression: Irreversible severe large airways obstructive ventilatory defect with a reciprocal change in diffusing capacity, resulting in air trapping with hyperinflation, and consistent with patient's diagnosis of COPD.
== END ==
PROVIDERS: Family Provider Internal Medicine; PCP Internal Medicine; Visit Provider Nurse Practitioner Acute Care
DX: J44.9 Chronic obstructive pulmonary disease, unspecified (principal)
CPT/HCPCS: 94060; 94726; 94729

== ENCOUNTER → 2017-12-26 08:48 | Outpatient (CLI) | payer OTHER, SELFPAY ==
[2017-12-26 09:31] VITALS: PULSE 100; PULSE 101; PULSE 102; PULSE 103; PULSE 87; PULSE 88; PULSE 94; PULSE 97; O2SAT 85; O2SAT 88; O2SAT 90; O2SAT 91; O2SAT 92; O2SAT 94; O2SAT 98
--- NOTE | 2017-12-26 09:41 | CPS ---
Patient wears oxygen at night at home. Patient started testing on room air, SpO2 dropped in the second minute to 85%. Placed patient on 2 lpm O2 nasal cannula, SpO2 recovered to 96%. By the fifth minute patient was bouncing between 88% and 89%l, turned patient up to 3lpm for the rest of testing, SpO2 >90%. Patient's DME company is [employer]. Dr. Sorto called and aware.
--- NOTE | 2017-12-26 12:31 | PCM.PSN.6M ---
PSN 6 Minute Walk Test - 6 Minute Walk Test 6 Minute Walk Test: 6 Minute Walk Test PSN:6-Minute Walk Test Start: 12/26/17 09:30 Freq: Status: Active Protocol: [id number].6MINW Document 12/26/17 09:31 CHERY (Rec: 12/26/17 09:44 CHERY [id number]) 6 Minute Walk Test Date Performed 12/26/17 Time Performed 09:00 Height 5 ft 11 in Weight: 125 lb Weight in Pounds 125.[address]: Garland Dobbins Assistive device used: None Pre-test Oxygen Delivery Method Room Air Pulse Ox (%) 91 Pulse Rate (60-100 beats/min) 88 Dyspnea Ashley Scale (0-10) 0.5 Exertion Ashley Scale (6-20) 6 1st minute Oxygen Delivery Method Room Air Pulse Ox (%) 90 Pulse Rate (60-100 beats/min) 97 2nd minute Oxygen Delivery Method Room Air Pulse Ox (%) 85 Pulse Rate (60-100 beats/min) 102 H 3rd minute Oxygen Flow Rate (L/min) (L/min) 2 Oxygen Delivery Method Nasal Cannula Pulse Ox (%) 94 Pulse Rate (60-100 beats/min) 94 4th minute Oxygen Flow Rate (L/min) (L/min) 2 Oxygen Delivery Method Nasal Cannula Pulse Ox (%) 92 Pulse Rate (60-100 beats/min) 100 5th minute Oxygen Flow Rate (L/min) (L/min) 2 Oxygen Delivery Method Nasal Cannula Pulse Ox (%) 88 Pulse Rate (60-100 beats/min) 103 H 6th minute Oxygen Flow Rate (L/min) (L/min) 3 Oxygen Delivery Method Nasal Cannula Pulse Ox (%) 92 Pulse Rate (60-100 beats/min) 101 H Dyspnea Ashley Scale (0-10) 2 Exertion Ashley Scale (6-20) 13 Post-test Oxygen Flow Rate (L/min) (L/min) 3 Oxygen Delivery Method Nasal Cannula Pulse Ox (%) 98 Pulse Rate (60-100 beats/min) 87 Full Laps Walked 16 Partial Lap, Number of Tiles Walked 0 Total Distance Walked (ft) 944 12/26/17 09:41 Cardiopulmonary Services by Amrita Garrett Patient wears oxygen at night at home. Patient started testing on room air, SpO2 dropped in the second minute to 85%. Placed patient on 2 lpm O2 nasal cannula, SpO2 recovered to 96%. By the fifth minute patient was bouncing between 88% and 89%l, turned patient up to 3lpm for the rest of testing, SpO2 >90%. Patient's DME company is [employer]. Dr. Sorto called and aware. Initialized on 12/26/17 09:41 - END OF NOTE - Interpretation Interpretation: The patient ambulated 944 feet over the course of 6 minutes beginning on room air without assistive devices or breaks. Pretesting oxygen saturation was noted to be 91% on room air. With ambulation, the patient desaturated to 85% at minute 2 of testing. 2 L/min of supplemental oxygen was applied. However, the patient again desaturated to 88% at minute 5 testing, requiring escalation in his flow rate to 3 L/min. The patient was unable to complete the remainder of the test while maintaining oxygen saturations at or above 88%. - Recommendations Recommendations: 3 L/min of supplemental oxygen should be utilized with exertion.
== END ==
PROVIDERS: Family Provider Internal Medicine; PCP Internal Medicine; Visit Provider Nurse Practitioner Acute Care
DX: J44.9 Chronic obstructive pulmonary disease, unspecified (principal)
CPT/HCPCS: 94618

== ENCOUNTER 2018-01-02 16:48 | Emergency (ER) | payer OTHER, SELFPAY ==
[2018-01-02 16:49] VITALS: BP 104/61; PULSE 97; RESP 16; TEMP 36.6; O2SAT 94; BMI 16.6
--- NOTE | 2018-01-02 17:10 | ED.VISSUMM ---
- ER Visit Summary Date of Service: 01/02/18 Chief Complaint: Left finger swelling History of Present Illness: The patient is a 77 M continued swelling left index finger for the past week. History of gout, saw the urgent care week ago, placed on prednisone for 4 days. There is no improvement. States redness has increased. No fevers or drainage. Denies injuries. He is right-hand dominant. Gout normally in his toe and ankles. 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 Gets his warfarin checked weekly. Physical Examination: General: Alert and oriented ?3, no acute distress HEENT: Normocephalic, atraumatic. Moist mucosa membranes Neck: supple, nontender. Cardiovascular: Regular rate and rhythm, no murmurs Respiratory: Normal breath sounds, symmetric, no distress Abdomen: Soft, nontender, nondistended Extremities: Left upper extremity: No elbow wrist pain. There is no hand pain. There is swelling the left index mostly at the PIP with redness that extends to the metacarpals of the second and third digits. No drainage. No streaking. Neuro: no focal neurological deficits. Test Results: INR 1.2. Left hand x-ray, concerns for early osteomyelitis of the proximal distal second phalanx. Emergency Department Course and Treatment: Patient not improving from prednisone afebrile. Redness concerns for cellulitis. Started on Keflex and doxycycline. He is on warfarin for INR checks 1.2. X-ray however return noted concerns of osteomyelitis distal second phalanx that may be early. Went back to discuss with patient findings to add blood work in admission for ostial concerns. However he states he did not want to stay in the hospital. Patient is alert and oriented ?3 is capable of making decisions. Discuss with patient can lead to possible amputations or worsening infection. He understands. He will be given follow-up with orthopedic hand along with his PCP. Discuss signs and symptoms return. AMA forms were signed. Treatment Plan: [] Disposition: Discharge Impression: Left index finger cellulitis with concerns of osteomyelitis This note was generated with CCTV Wirelessation software. It may contain incorrect words, spelling, and punctuation that were not noted in review of the chart prior to signing ED Disposition - Plan for ED Patient: Disposition: Home or Assisted Living Chief Complaint: Upper Extremity Injury Diagnosis: Cellulitis of left index finger, Concerns for osteomyelitis Prescriptions: Cephalexin [Keflex] 500 mg PO Q6 #56 capsule Doxycycline Monohydrate 100 mg PO BID #28 capsule Referrals: Gudelia Patel DO [STAFF PHYSICIAN] - 2 Days Varun Wang MD [Primary Care Provider] - 1 Day Additional Instructions: Left index finger cellulitis with concerns of osteomyelitis. Take antibiotics as prescribed. You signed out AGAINST MEDICAL ADVICE. Follow-up with orthopedics and your doctor.
[2018-01-02] MEDS: Doxycycline 100 MG CAPSULE PO (17:55)
[2018-01-02] MEDS: Cephalexin 250 MG Capsule 500 MG PO (17:55)
[2018-01-02 18:10] LABS: International Normalized Ratio 1.2; Prothrombin Time (Protime)PT. 14.7 SECONDS (11.7-14.9)
[2018-01-02 19:24] VITALS: PULSE 78; RESP 16; O2SAT 98
--- NOTE | 2018-01-02 19:27 | ED.RN ---
DEXTER TALKED TO DR. PECK AND STATED HE DID NOT WANT TO STAY IN HOSPITAL SO PATIENT IS SIGNING OUT AMA. PT TOLD THIS NURSE HE HAS BEEN HOSPITALIZED A LOT RECENTLY AND JUST WANTS TO GO HOME
== END 2018-01-02 19:29 | disposition left against medical advice (07) ==
PROVIDERS: Emergency Provider Emergency Medicine; Family Provider Internal Medicine; PCP Internal Medicine
DX: L03.012 Cellulitis of left finger (principal); B96.89 Other specified bacterial agents as the cause of diseases classified elsewhere; J44.9 Chronic obstructive pulmonary disease, unspecified; K21.9 Gastro-esophageal reflux disease without esophagitis; M10.9 Gout, unspecified; D64.9 Anemia, unspecified; Z86.718 Personal history of other venous thrombosis and embolism; Z79.01 Long term (current) use of anticoagulants; Z79.899 Other long term (current) drug therapy
CPT/HCPCS: 36415; 73130; 85610; 99283

== ENCOUNTER → 2018-02-04 11:48 | Outpatient (CLI) | payer OTHER, SELFPAY ==
--- NOTE | 2018-02-04 11:57 | MRI_ITS ---
STUDY: MRI LEFT HAND (ATTENTION INDEX FINGER) WITH AND WITHOUT CONTRAST REASON FOR EXAM: Left index finger, pain and swelling for 6 weeks with no specific injury. Evaluate for gout, osteomyelitis. TECHNIQUE: Standardized fat and water weighted pulse sequences were obtained in all 3 orthogonal planes before and after intravenous administration of 6 mL of Gadavist. COMPARISON: Radiographs 01/02/2018. FINDINGS: There is synovitis of the second proximal interphalangeal joint (T2 sagittal images 5-7). There is bone edema of the distal aspect of the second proximal phalanx and proximal aspect of the second middle phalanx (inversion recovery coronal images 10, 11) with corresponding decreased T1 bone marrow signal (T1 coronal images 10, 11) and contrast enhancement (postcontrast T1 coronal images 10-12). There is erosion of the ulnar distal aspect of the second proximal phalanx (T1 coronal image 11; T1 axial image 19). There is subchondral cystic change of the second metacarpal head (inversion recovery coronal images 13-16). Otherwise, unremarkable second metacarpophalangeal joint. Normal second distal interphalangeal joint. Normal flexor and extensor tendons of the second digit. There is edema in the subcutis adipose space of the second digit at the level proximal interphalangeal joint. There is no discrete soft tissue mass or abscess. MRI/Upper Ext No Joint W/WO Cont IMPRESSION: Signal alteration of the proximal and middle phalanges of the second digit with erosion of the proximal phalanx and synovitis of the second proximal interphalangeal joint. Differential considerations include osteomyelitis/septic joint and gout. Electronically Signed: Trino Tabor MD at 14:03 EDT Tel , Service support ,
[2018-02-04 12:20] LABS: EGFR FINGERSTICK > 60.0000 mL/min (>60)
== END ==
PROVIDERS: Family Provider Internal Medicine; PCP Internal Medicine; Referring Provider Surgery; Visit Provider Surgery
DX: M10.9 Gout, unspecified (principal); D49.2 Neoplasm of unspecified behavior of bone, soft tissue, and skin; M86.9 Osteomyelitis, unspecified
CPT/HCPCS: 73220; A9585

== ENCOUNTER 2018-03-04 14:54 | Emergency (ER) | payer OTHER, SELFPAY ==
[2018-03-04] VITALS (8 sets, daily range): BP systolic 79–117; BP diastolic 41–70; PULSE 103–121; RESP 18–22; TEMP 36.4–37.8; O2SAT 94–100; BMI 17.2
--- NOTE | 2018-03-04 15:44 | RAD_ITS ---
STUDY: X-RAY CHEST REASON FOR EXAM: Male, 78 years old. Short of breath and weakness. TECHNIQUE: Single AP portable view of the chest. COMPARISON: 11/29/2017. FINDINGS: There is hyperinflation of the lungs consistent with chronic obstructive lung disease (COPD). No infiltrates. No effusions. There is no demonstrated pleural abnormality. Normal size heart. Normal mediastinum and malia. There is prominence of the pulmonary hilar arteries without peripheral pulmonary vascular congestion, suggesting pulmonary hypertension. There is atherosclerotic tortuosity of the aortic arch and descending thoracic aorta. Normal visualized thoracic spine. Normal visualized ribs, clavicles, and shoulders. There is no demonstrated abnormality of the visualized soft tissue structures of the upper abdomen. RAD/Chest 1 View (Portable) IMPRESSION: There are findings consistent with COPD. There is no evidence of acute chest disease.. Electronically Signed: Rishi Arambula MD at 16:14 EST , Service support ,
--- NOTE | 2018-03-04 15:47 | EKG12_ITS ---
Test Reason : GI BLEED Blood Pressure : / mmHG Vent. Rate : 104 BPM Atrial Rate : 104 BPM P-R Int : 140 ms QRS Dur : 072 ms QT Int : 340 ms P-R-T Axes : 076 -28 081 degrees QTc Int : 447 ms Sinus tachycardia with Premature atrial complexes Otherwise normal ECG Confirmed by INDIO MARQUEZ, BETSY ([id number]), slot editor NICKY JOLLEY ([id number]) on 03/07/2018 3:37:24 PM Referred By: SHERLYN Confirmed By:BETSY BORJAS MD
[2018-03-04] MEDS: 0.9% Normal Saline 1,000 ML 1000 ML IV (16:20)
[2018-03-04 16:22] LABS: International Normalized Ratio 1.6; Prothrombin Time (Protime)PT. 18.9 SECONDS (11.7-14.9)
[2018-03-04 16:23] LABS: Partial Thromboplast Time 41.4 Seconds (24.1-36.2)
[2018-03-04 16:28] LABS: Absolute Lymphocyte Count 1.37 X10^3/ul (0.83-4.51); Absolute Neutrophil Count 15.9 X10^3/uL (2.0-7.7); Basophil# 0.51 X10^3/uL; Differential Indicated SCAN CRITERIA MET; Eosinophil# 0.24 X10^3/uL; Hematocrit 27.6 % (40-54); Hemoglobin 7.6 g/dl (13.0-16.5); Lymphocyte # 1.37 X10^3/ul (4.0); Mean Corp Hgb Conc 27.5 g/gl (32-36); Mean Corpuscular Hgb 21.1 pg (27.0-32.0); Mean Corpuscular Volume 76.5 fL (80-94); Mean Platelet Vol. 9.8 fl (6.2-12.0); Monocyte# 1.36 X10^3/uL; Neutrophil # 15.92 X10^3/uL (2.7-7.7); POSITIVE COUNT NO; POSITIVE DIFFERENTIAL NO; POSITIVE MORPHOLOGY YES; Platelet Count 552 K/mm3 (150-450); RBC Distribution Width CV 21.4 % (11.6-14.6); RBC Distribution Width SD 59.9 fl (35.1-43.9); Red Blood Count 3.61 M/mm3 (4.6-6.2); White Blood Count 19.5 K/mm3 (4.4-11.0)
[2018-03-04 16:30] LABS: AST(SGOT) 15 U/L (15-37); Alanine Aminotransfer ALT/SGPT 18 U/L (16-61); Albumin, Serum 2.9 g/dL (3.2-5.0); Alkaline Phosphatase 149 U/L (45-117); Anion Gap 8 (5-15); BUN 29 mg/dL (7-18); BUN/Creat Ratio 29.4 RATIO (10-20); Calcium,Total 8.3 mg/dL (8.5-10.1); Chloride 108 mmol/L (98-107); Creatinine, Serum 0.99 mg/dL (0.70-1.30); EST Glomerular Filtration Rate 78 mL/min (>60); Est Glom Filt Rate - Afr Amer 94 mL/min (>60); Estimated Creatinine Clearance 48.54 ml/min; Globulin 2.9 g/dL (2.2-4.2); Glucose 113 mg/dL (74-106); Lipase 63 U/L (73-393); Potassium 4.8 mmol/L (3.5-5.1); Protein, Total 5.8 g/dL (6.4-8.2); Sodium Level 142 mmol/L (136-145)
[2018-03-04 16:49] LABS: Lactic Acid 2.2 mmol/L (0.4-2.0)
--- NOTE | 2018-03-04 16:59 | ED.RN ---
DR. HAYES AWARE OF CRITICAL LACTIC ACID OF 2.2, RN AWARE.
[2018-03-04 17:09] LABS: Anisocytosis 1+; Hypochromasia 1+; Polychromasia RARE
[2018-03-04] MEDS: Phytonadione (Vit K) 10 MG/ML Ampul SC (19:32)
[2018-03-04 20:08] LABS: Reflex Lactate? Y
--- NOTE | 2018-03-04 23:39 | ED.DCSUM_ITS ---
- ER Visit Summary Date of Service: 03/04/18 Chief Complaint: GI bleed History of Present Illness: The patient is a 78 M who states that one week ago he underwent EGD for esophageal dilatation for esophageal stricture. This was his third 1 and was performed at [facility]. Patient states it appeared uncomplicated. This morning he woke and vomited blood and had 4 large black tarry stools that also had bright red blood with it. He states this is similar to the event that happened many decades ago which she had peptic ulcer disease. He is currently on Coumadin. He also has a history of vocal cord cancer. He states he is very weak and cold. Denies any chest pain or change in shortness of breath. Physical Examination: Initial blood pressure 79/48 heart rate of 110 respirations are 22 pulse ox 94% Gen: Well-nourished well-developed Head: Normocephalic atraumatic Eyes: Perrl EOMI ENT: TMs clear no rhinorrhea moist mucous membranes Neck: Supple no lymphadenopathy no JVD nontender CVS: Regular rate and tachycardic rhythm no murmurs normal S1-S2 Respiratory: No distress clear to auscultation bilaterally chest nontender Abdomen: Soft nontender nondistended normal bowel sounds no masses Back: Nontender Extremity: Nontender no edema Skin: Patient is pale Neuro: alert orientated ?3 CN II-XII intact normal strength sensation reflexes Psych: Normal affect normal mood Test Results: Hemoglobin 7.6. INR 1.6. Lactic acid 2.2. Troponin negative. EKG sinus rate of 104. Chest x-ray negative. Emergency Department Course and Treatment: Patient's hemoglobin on 1018 of this year was 11.9. Thus he is a little bit over 4 g drop. He is orthostatic positive. He received Protonix saline vitamin K was typed and crossed for for [address] Becerril who recommends transfer to tertiary care. The patient is known to [facility] and they have asked to perhaps stay more local and for me to contact Jolietsari Cortes. I spoke with Dr. Amor is accepted the patient to the ICU. Impression: 1. Acute GI bleed 2. Anemia requiring confusion 3. Hypovolemic shock 4. Critical care time 35 minutes This note was generated with Nellixation software. It may contain incorrect words, spelling, and punctuation that were not noted in review of the chart prior to signing ED Disposition - Plan for ED Patient: Disposition: [facility] Chief Complaint: GI Bleed Referrals: Varun Wang MD [Primary Care Provider] -
== END 2018-03-04 19:43 | disposition short-term general hospital (02) ==
PROVIDERS: Emergency Provider Emergency Medicine; Family Provider Internal Medicine; PCP Internal Medicine
DX: K92.2 Gastrointestinal hemorrhage, unspecified (principal); D64.9 Anemia, unspecified; R57.1 Hypovolemic shock; J44.9 Chronic obstructive pulmonary disease, unspecified; Z79.01 Long term (current) use of anticoagulants; Z87.891 Personal history of nicotine dependence
CPT/HCPCS: 36430; 71045; 80053; 83605; 83690; 84484; 85025; 85610; 85730; 86850; 86900; 86920; 93005; 99285; J7030; P9016; A4216; J3490

== ENCOUNTER → 2018-04-12 08:36 | Outpatient (CLI) | payer OTHER, SELFPAY ==
[2018-04-12 09:31] VITALS: BP 102/49; PULSE 70; RESP 16; TEMP 36
[2018-04-12 10:31] VITALS: BP 110/59; PULSE 74; RESP 18; TEMP 36.1; O2SAT 98
[2018-04-12 11:08] VITALS: BP 105/51; PULSE 80; RESP 16; O2SAT 97
[2018-04-12 12:00] VITALS: BP 105/59; PULSE 78; RESP 16; TEMP 36.3
[2018-04-12 13:00] VITALS: BP 112/54; PULSE 85; RESP 18
[2018-04-12 13:35] VITALS: BP 106/50; PULSE 86; RESP 16; TEMP 36.2; O2SAT 98
--- OUTSIDE RECORDS SUMMARY | 2018-05-28 21:01 | XMS RPT_ITS ---
:1940 Author Organization OHIP Support Name Relationship Address Phone ZONIADONNIE Unavailable [address] + [place] [address] FLORES KEEGAN Unavailable [address] + [place] [address] R Unavailable Unavailable Unavailable FLORES, DONNIE Unavailable [address] + [place] [address] ZONIA KEEGAN Unavailable Unavailable + R Unavailable Unavailable Unavailable FLORES, DONNIE Unavailable [address] + [place] [address] FLORES KEEGAN Unavailable [address] + [place] [address] R Unavailable Unavailable Unavailable FLORES, DONNIE Unavailable [address] + [place] [address] FLORES KEEGAN Unavailable [address] + [place] [address] R Unavailable Unavailable Unavailable FLORES, DONNIE Unavailable [address] + [place] [address] FLORES KEEGAN Unavailable [address] + [place] [address] R Unavailable Unavailable Unavailable FLORES, DONNIE Unavailable [address] + [place] [address] ZONIA KEEGAN Unavailable Unavailable + R Unavailable Unavailable Unavailable FLORES, DONNIE Unavailable [address] + [place] [address] FLORES KEEGAN Unavailable [address] + [place] [address] R Unavailable Unavailable Unavailable FLORES, DONNIE Unavailable [address] + [place] [address] ZONIA KEEGAN Unavailable [address] + [place] [address] R Unavailable Unavailable Unavailable FLORES, DONNIE Unavailable [address] + [place] [address] FLORES, KEEGAN Unavailable [address] + [place] [address] R Unavailable Unavailable Unavailable FLORES, DONNIE Unavailable [address] + [place] [address] FLORES, KEEGAN Unavailable [address] + [place] [address] R Unavailable Unavailable Unavailable FLORES, DONNIE Unavailable [address] + [place] [address] FLORES, KEEGAN Unavailable [address] + [place] [address] R Unavailable Unavailable Unavailable FLORES, DONNIE Unavailable [address] + [place] [address] ZONIA KEEGAN Unavailable [address] + [place] [address] R Unavailable Unavailable Unavailable FLORES, DONNIE Unavailable [address] + [place] [address] ZONIA, KEEGAN Unavailable [address] + [place] [address] R Unavailable Unavailable Unavailable FLORES, DONNIE Unavailable [address] + [place] [address] KEEGAN FLORES Unavailable [address] + [place] [address] R Unavailable Unavailable Unavailable FLORES, DONNIE Unavailable [address] + [place] [address] KEEGAN FLORES Unavailable [address] + [place] [address] R Unavailable Unavailable Unavailable FLORES, DONNIE Unavailable [address] + [place] [address] KEEGAN FLORES Unavailable [address] + [place] [address] R Unavailable Unavailable Unavailable FLORES, DONNIE Unavailable [address] + [place] [address] ZONIA KEEGAN Unavailable [address] + [place] [address] R Unavailable Unavailable Unavailable FLORES, DONNIE Unavailable [address] [phone] [place] [address] KEEGAN FLORES Unavailable [address] + [place] [address] R Unavailable Unavailable Unavailable FLORES, DONNIE Unavailable [address] [phone] [place] [address] KEEGAN FLORES Unavailable [address] + [place] [address] R Unavailable Unavailable Unavailable FLORES, DONNIE Unavailable [address] + [place] [address] KEEGAN FLORES Unavailable [address] + [place] [address] R Unavailable Unavailable Unavailable FLORES, DONNIE Unavailable [address] + [place] [address] KEEGAN FLORES Unavailable [address] + [place] [address] R Unavailable Unavailable Unavailable FLORES, DONNIE Unavailable [address] + [place] [address] KEEGAN FLORES Unavailable [address] + [place] [address] R Unavailable Unavailable Unavailable FLORES, DONNIE Unavailable [address] [phone] [place] [address] ZONIA, KEEGAN Unavailable [address] + [place] [address] R Unavailable Unavailable Unavailable FLORES, DONNIE Unavailable [address] + [place] [address] KEEGAN FLORES Unavailable [address] + [place] [address] R Unavailable Unavailable Unavailable FLORES, DONNIE Unavailable [address] [phone] [place] [address] KEEGAN FLORES Unavailable [address] + [place] [address] R Unavailable Unavailable Unavailable FLORES, DONNIE Unavailable [address] + [place] [address] KEEGAN FLORES Unavailable [address] + [place] [address] R Unavailable Unavailable Unavailable FLORES, DONNIE Unavailable [address] + [place] [address] KEEGAN FLORES Unavailable [address] + [place] [address] R Unavailable Unavailable Unavailable FLORES, DONNIE Unavailable [address] [phone] [place] [address] ZONIA, KEEGAN Unavailable [address] + [place] [address] R Unavailable Unavailable Unavailable FLORES, DONNIE Unavailable [address] [phone] [place] [address] ZONIA, KEEGAN Unavailable [address] + [place] [address] R Unavailable Unavailable Unavailable FLORES, DONNIE Unavailable [address] [phone] [place] [address] ZONIA, KEEGAN Unavailable [address] + [place] [address] R Unavailable Unavailable Unavailable FLORES, DONNIE Unavailable [address] [phone] [place] [address] ZONIA, KEEGAN Unavailable [address] + [place] [address] R Unavailable Unavailable Unavailable FLORES, ODNNIE Unavailable [address] + [place] [address] ZONIA KEEGAN Unavailable [address] + [place] [address] R Unavailable Unavailable Unavailable FLORES, DONNIE Unavailable [address] [phone] [place] [address] ZONIA, KEEGAN Unavailable [address] + [place] [address] R Unavailable Unavailable Unavailable FLORES, DONNIE Unavailable [address] + [place] [address] ZONIA KEEGAN Unavailable [address] + [place] [address] R Unavailable Unavailable Unavailable FLORES, DONNIE Unavailable [address] [phone] [place] [address] ZONIA, KEEGAN Unavailable [address] + [place] [address] R Unavailable Unavailable Unavailable Care Team Providers Name Role Phone Rosie Perea Attending Unavailable Varun Wang Referring Unavailable Varun Wang Primary Care Unavailable Varun Wang Primary Care Unavailable Reji Marin Admitting Unavailable Yang Becerril Consulting Unavailable Hugo Meza Attending Unavailable Jopperi, Reji Attending Unavailable Wang, Varun Primary Care Unavailable Jopperi, Reji Admitting Unavailable Wang, Varun Primary Care Unavailable Paintsil, [place] Consulting Unavailable Paintsil, [place] Attending Unavailable Jopperi, Reji Admitting Unavailable Calabretta, Yang Attending Unavailable Wang, Varun Primary Care Unavailable Calabretta, Yang Consulting Unavailable Paintsil, [place] Consulting Unavailable Jopperi, Reji Admitting Unavailable Calabretta, Yang [facility]ending [facility] Unavailable Calabretta, Yang Consulting Unavailable Paintsil, [place] Consulting Unavailable Jopperi, Reji Admitting Unavailable Salo Anjel Attending [facility]available [facility] Unavailable Calabretta, Yang Consulting Unavailable Paintsil, [place] Consulting Unavailable Jopperi, Reji Admitting Unavailable Calabretta, Yang Attending Unavailable [facility] Unavailable Calabretta, Yang Consulting Unavailable Paintsil, [place] Consulting Unavailable Jopperi, Reji Admitting Unavailable Salo Anjel Attending Unavailable Wang, Varun Primary Care Unavailable Calabretta, Yang Consulting Unavailable Paintsil, [place] Consulting Unavailable Jopperi, Reji Admitting Unavailable KitHugo johnson Attending Unavailable Wang, Varun Primary Care Unavailable Calabretta, Yang Consulting Unavailable Luis FtoHugo su Consulting Unavailable Jopperi, Reji Admitting Unavailable Calabretta, Yang Attending [facility] Unavailable Calabretta, Yang Consulting Unavailable Hugo Meza Consulting Unavailable Jopperi, Reji Admitting Unavailable Hugo Meza Attending Unavailable Wang, Varun Primary Care Unavailable Calabretta, Yang Consulting Unavailable Hugo Meza Consulting Unavailable Jopperi, Reji Admitting Unavailable Calabretta, Yang Attending Unavailable Wang, Victor Primary Care Unavailable Calabretta, Yang Consulting Unavailable Hugo Meza Consulting Unavailable Wang, Varun Primary Care Unavailable Koram, Gisela Tammy Admitting Unavailable SemenJennifer hampton Attending Unavailable Koram, Gisela Tammy Admitting Unavailable Sementi, Jennifer Attending [facility]available [facility] Unavailable SemenJennifer hampton Consulting Unavailable Kenya Aponte Attending Unavailable Koram, Gisela Tammy Admitting Unavailable Sementi, Jennifer Attending Unavailable Wang, Varun Primary Care Unavailable Sementi, Jennifer Consulting Unavailable Koram, Gisela Tammy Admitting Unavailable Sementi, Jennifer Attending Unavailable Wang, Varun Primary Care Unavailable Sementi, Jennifer Consulting Unavailable Koram, Gisela Tammy Admitting Unavailable Sementi, Jennifer Attending Unavailable Wang, Varun Primary Care Unavailable Sementi, Jennifer Consulting Unavailable Wang, Varun Primary Care Unavailable Kwaku Sow Attending Unavailable Perea, Rosie Attending Unavailable Perea, Rosie Referring Unavailable Wang, Varun Primary Care Unavailable Eliazar, Rosie Attending Unavailable Perea, Rosie Referring Unavailable Wang, Varun Primary Care Unavailable Garland Dobbins Attending Unavailable Perea, Rosie Referring Unavailable Wang, Varun Primary Care Unavailable Yousif Quan Attending Unavailable Hood Sorto D.O. Attending Unavailable Eliazar, Rosie Referring Unavailable Jayjay Mohamud Attending Unavailable Juan Cobb Referring Unavailable MasciMaura Attending Unavailable Masci Maura Referring Unavailable Wang, Varun Primary Care Unavailable Wang, Varun Primary Care Unavailable White, Tomasa Admitting Unavailable White, Tomasa Referring Unavailable Kegean Hazel Attending Unavailable White, Tomasa Admitting Unavailable White, Tomasa Referring Unavailable Wang, Varun Primary Care Unavailable White, Tomasa Consulting Unavailable White, Tomasa Attending Unavailable White, Tomasa Admitting Unavailable White, Tomasa Referring Unavailable Wang, Varun Primary Care Unavailable Keegan Hazel Consulting Unavailable Keegan Hazel Attending Unavailable White, Tomasa Admitting Unavailable White, Tomasa Referring Unavailable Wang, Varun Primary Care Unavailable Keegan Hazel Consulting Unavailable Keegan Hazel Attending Unavailable Jayjay Mohamud Attending Unavailable Jayjay Mohamud Referring Unavailable Wang, Varun Primary Care Unavailable Jayjay Mohamud Attending Unavailable Wang, Varun Referring Unavailable Garland Dobbins Attending Unavailable Wang, Varun Referring Unavailable Wang, Varun Primary Care Unavailable Sabina Richard Attending Unavailable АЛЕКСАНДР ARANA Admitting Unavailable KEYONNA MORGAN) Consulting Unavailable CHANTE, ROHITH YOUNG Attending Unavailable DORA LAY Admitting Unavailable DORA LAY Attending Unavailable MARCO A GIRALDO Attending Unavailable MARCO A GIRALDO Referring Unavailable ROSHAN MAST Admitting Unavailable AURON, HERNESTO Attending Unavailable PONSKY, MAJOR GIBSON Attending Unavailable AURON, HERNESTO Referring Unavailable WANG, VARUN Tracy Attending Unavailable SEMENTIANALI Referring Unavailable SONG, ANIA Attending Unavailable MASCI, MAURA Santoyo Attending Unavailable AURON, HERNESTO Referring Unavailable MASCI, MAURA Santoyo Referring Unavailable MASCI, MAURA Santoyo Referring Unavailable CLARISSA, TREY Attending Unavailable AURON, HERNESTO Referring Unavailable SCHARPF, AMRCO A Attending Unavailable SCHARPF, MARCO A Referring Unavailable RAY, NEVA Attending Unavailable SONG, GENGQING Referring Unavailable RAY, NEVA Admitting Unavailable RAY, NEVA Attending Unavailable SONG, GENGQING Referring Unavailable ZACH, CLAUDIA Admitting Unavailable CARRANZA, ALENA A Attending Unavailable ZACH, CLAUDIA Admitting Unavailable CARRANZA, ALENA A Attending Unavailable CARRANZA, ALENA A Referring Unavailable ZACH, CLAUDIA Admitting Unavailable CARRANZA, ALENA A Attending Unavailable AURON, HERNESTO Referring Unavailable MASCI, MAURA Santoyo Attending Unavailable AURON, HERNESTO Referring Unavailable WANG, REBEL Referring Unavailable WANG, REBEL Referring Unavailable WANG, REBEL Referring Unavailable RAY, NEVA Admitting Unavailable RAY, NEVA Attending Unavailable RAY, NEVA Referring Unavailable RAY, NEVA Attending Unavailable RAY, NEVA Referring Unavailable BAGH, IMAD Attending Unavailable OG, YENI Referring Unavailable AURON, HERNESTO Referring Unavailable WANG, REBEL Referring Unavailable WANG, VARUN Tracy Attending Unavailable WANG, REBEL Referring Unavailable WANG, REBEL Referring Unavailable AURON, HERNESTO Referring Unavailable WANG, REBEL Referring Unavailable RAY, NEVA Attending Unavailable RAY, NEVA Referring Unavailable RAY, NEVA Admitting Unavailable RAY, NEVA Attending Unavailable WANG, REBEL Referring Unavailable AURON, HERNESTO Referring Unavailable MASCI, MAURA Santoyo Attending Unavailable AURON, HERNESTO Referring Unavailable HENRRYDORA Attending Unavailable MASCI, MAURA A Referring Unavailable SCHARPF, MARCO A Attending Unavailable SCHARPF, MARCO A Referring Unavailable MASCI, MAURA Santoyo Referring Unavailable MASCI, MAURA Santoyo Referring Unavailable BUCKYYOSELYN) Attending Unavailable WANG, REBEL Referring Unavailable BAGH, JOSIE Attending Unavailable BAGH, IMMADY Referring Unavailable AURON, HERNESTO Referring Unavailable MASCI, MAURA A Referring Unavailable MASCI, MAURA A Referring Unavailable MASCI, MAURA A Referring Unavailable MASCI, MAURA A Referring Unavailable AURON, HERNESTO Referring Unavailable MASCWilliam, MAURA A Attending Unavailable DRAKE, HERNESTO Referring Unavailable VARUN WANG Attending Unavailable VARUN WANG Referring Unavailable VENKATESHAIAH, АЛЕКСАНДР K Admitting Unavailable Varun Wang MD Primary Care Unavailable KEYONNA MORGAN () Consulting Unavailable ALEN GARAY Attending Unavailable PROBLEMS PROBLEMS DATE TYPE CONDITION / CODE ATTENDING STATUS SOURCE Unknown J44.9 - Chronic [place] mast Active [facility] obstructive pulmonary Community disease, unspecified / Hospital J44.9(ICD-10) Repository Unknown J96.11 - Chronic [place] mast Active [place] [facility] respiratory failure Community with hypoxia / Hospital J96.11(ICD-10) Repository Unknown E44.0 - Moderate [place] mast Active [facility] protein-calorie Community malnutrition / Hospital E44.0(ICD-10) Repository Active Intestinal NA Active [facility] malabsorption, Clinic Main unspecified / [facility] K90.9(ICD-10) Repository Active Portal vein thrombosis NA Active [facility] / I81(ICD-10) Clinic Main [place] Repository Active Other nonspecific NA Active [facility] abnormal finding of Clinic Main lung field / [place] R91.8(ICD-10) Repository Active Gastrointestinal HENRRY, Active [facility] hemorrhage, unspecified DORA T Clinic Other / K92.2(ICD-10) [facility] Repository Active Hematemesis / QAVI, ROHITH Active [facility] K92.0(ICD-10) [facility] Other [place] Repository Admitting Unknown / UNK(Unknown) QAVI, ROHITH Active [facility] 8 diagnosis [facility] Repository Unknown M10.9 - Gout, SlabyJayjay Active [place] [facility] unspecified / Community M10.9(ICD-10) Hospital Repository Active Essential (hemorrhagic) NA Active [facility] thrombocythemia / Clinic Main D47.3(ICD-10) [facility] Repository Active Unknown / UNK(Unknown) BAGH, IMAD Active [facility] Clinic Main [place] Repository Active Genetic susceptibility NA Active [facility] to other disease / Clinic Main Z15.89(ICD-10) [facility] Repository Active Unspecified abdominal ALENA CARRANZA Active [facility] pain / R10.9(ICD-10) Clinic Main [place] Repository Active Chronic ALENA CARRANZA Active [facility] 8 myeloproliferative Clinic Main disease / D47.1(ICD-10) [facility] Repository Active Esophageal obstruction RAY, NEVA Active [facility] / K22.2(ICD-10) Clinic Main [place] Repository Unknown R10.9 - Unspecified Sementi, Active [facility] abdominal pain / [facility] Community R10.9(ICD-10) Hospital Repository Unknown R10.10 - Upper Sementi, Active [facility] abdominal pain, [facility] Community unspecified / Hospital R10.10(ICD-10) Repository Active Personal history of AURON, HERNESTO Active [facility] nicotine dependence / Clinic Main Z87.891(ICD-10) [facility] Repository Active Acquired absence of AURON, 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) / Clinic Main Z90.3(ICD-10) [facility] Repository Active Malignant neoplasm of AURON, HERNESTO Active [facility] larynx, unspecified / Clinic Main C32.9(ICD-10) [facility] Repository Active Dysphagia, unspecified AURON, HERNESTO Active [facility] / R13.10(ICD-10) Clinic Main [place] Repository Active Unspecified severe AURON, HERNESTO Active [facility] 8 protein-calorie Clinic Main malnutrition / [place] E43(ICD-10) Repository Active Body mass index (BMI) AURON, HERNESTO Active [facility] 8 19.9 or less, adult / Clinic Main Z68.1(ICD-10) [facility] Repository Active Diverticulosis of large AURON, HERNESTO Active [facility] intestine without Clinic Main perforation or abscess [facility] without bleeding / Repository K57.30(ICD-10) Active Shortness of breath / AURON, HERNESTO Active [facility] R06.02(ICD-10) Clinic Main [facility] Repository Active Iron deficiency anemia, AURONHERNESTO Active [facility] unspecified / Clinic Main D50.9(ICD-10) [facility] Repository Active Emphysema, unspecified AURONHERNESTO Active [facility] / J43.9(ICD-10) Clinic Main [facility] Repository Active Dysphagia, AURDBEBY CHILDRESSSES Active [facility] 8 oropharyngeal phase / Clinic Main R13.12(ICD-10) [facility] Repository Unknown K52.9 - Noninfective Hugo Meza Active [facility] 8 gastroenteritis and Community colitis, unspecified / Hospital K52.9(ICD-10) Repository PROCEDURES PROCEDURES No Procedure Records FoundRESULTS RESULTS PROGRESS Observed: 05/13/2018 Status: COMPLETED Source: [facility] 3:16 PM [facility] REPOSITORY HNO ID: [id number] Author: Varun Wang Service: (none) Author Type: Physician Type: Progress Notes Filed: 05/13/2018 4:07 PM Note Text: Transitional Care Management TCM Eligibility Documentation The following information was gathered during the initial Patient Outreach Encounter. Date of Outreach: 05/07/2018 Outreach Attempt 1: Contact Made Date of Discharge 05/05/2018 Some recent data might be hidden Provider Documentation Sabina Flores is a 78 year old male here today for a follow up to recent hospitalization. I have reviewed the patient's hospital course including diagnostic testing performed during this hospitalization, their discharge medications, and my assessment and plan with the patient and any family members present at today's visit. HPI: Sabina Flores was admitted May.03- for sepsis due to healthcare associated pneumonia, chronic obstructive pulmonary disease exacerbation, human metaphneumo virus, acute on chronic respiratory failure, elevated creatinine, iron deficiency anemia, kidney insufficiency, malnutrition. He was feeling better. He was finishing prednisone, and he finished levofloxacin. He saw oncology May 09 and repeat labs were done. He just saw Dr. Dobbins for pulmonary follow up today. His anemia resolved. Leukocytosis and thrombocytosis were unchanged. 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 PREDNISONE ORAL Take by mouth. ondansetron orally disintegrating (ZOFRAN ODT) 4 mg disintegrating tablet 1 tablet as needed. oxyCODONE IR (ROXICODONE) 5 mg immediate release tablet Take 5 mg by mouth every 8 hours as needed. hydroxyurea (HYDREA) 100 mg/mL oral liquid Take 5 mL by mouth once daily. albuterol (PROVENTIL) 2.5 mg /3 mL (0.083 %) nebulizer solution Use 3 mL via nebulizer every 2 hours as needed for Wheezing/Shortness of Breath. Use over 5-15minutes. pantoprazole DR (PROTONIX) 40 mg tablet Take 1 tablet by mouth once daily. aspirin 81 mg chewable tablet Take 81 mg by mouth once daily. allopurinol (ZYLOPRIM) 300 mg tablet Take 1 tablet by mouth once daily. This can be crushed. Cholecalciferol, Vitamin D3, (VITAMIN D-3) 1,000 unit chew Take 1 tablet by mouth once daily. Chlorhexidine Gluconate (PERIDEX) 0.12 % solution Take 15 mL by mouth once daily. Swish for 30 seconds and then spit out. tiotropium-olodaterol (STIOLTO RESPIMAT) 2.5-2.5 mcg/actuation mist Inhale 2 Puffs as instructed once daily. levoFLOXacin (LEVAQUIN) 750 mg tablet 1 tablet once daily. No current facility-administered medications for this visit. Review of Systems Constitutional: Positive for malaise/fatigue and weight loss. Negative for chills, diaphoresis and fever. HENT: Negative. Respiratory: Positive for shortness of breath. Negative for cough and wheezing. Cardiovascular: Negative. Gastrointestinal: Negative. Musculoskeletal: Negative. Neurological: Negative. Vitals BP 130/62 Pulse 76 Temp (Src) 97.7 (Temporal Artery) Resp 16 Wt 118 lb (53.5kg) Physical Exam Constitutional: He is oriented to person, place, and time. He appears cachectic. No distress. HENT: Mouth/Throat: Oropharynx is clear and moist. Eyes: Conjunctivae are normal. No scleral icterus. Neck: No JVD present. Cardiovascular: Normal heart sounds. Exam reveals no gallop. No murmur heard. Pulmonary/Chest: No accessory muscle usage. No respiratory distress. He has decreased breath sounds. He has no wheezes. He has no rales. Abdominal: Soft. There is no tenderness. Musculoskeletal: He exhibits no edema. Neurological: He is alert and oriented to person, place, and time. Gait normal. Skin: Skin is warm and dry. He is not diaphoretic. ASSESSMENT/PLAN: 1. Healthcare-associated pneumonia - ICD9: 486, ICD10: J18.9 (primary diagnosis) Resolving. 2. Chronic obstructive pulmonary disease, unspecified COPD type (HCC) - ICD9: 496, ICD10: J44.9 Stable. 3. Hypoxemia - ICD9: 799.02, ICD10: R09.02 Stable. 4. Renal azotemia - ICD9: 790.6, ICD10: R79.89 Resolved. 5. Severe protein-calorie malnutrition (HCC) - ICD9: 262, ICD10: E43 Chronic. 6. Leukocytosis, unspecified type - ICD9: 288.60, ICD10: D72.829 Chronic. 7. Thrombocytosis (HCC) - ICD9: 238.71, ICD10: D47.3 Chronic. 8. Iron deficiency anemia, unspecified iron deficiency anemia type - ICD9: 280.9, ICD10: D50.9 Chronic. Varun Wang MD May 13, 2018 3:16 PM CNOV Observed: 05/13/2018 Status: COMPLETED Source: [facility] 3:00 PM [facility] REPOSITORY Office Visit (INTMWS) SABINA FLORES ([id number]) 1940 M Date Time Provider Department 05/13/18 3:00 PM VARUN WANG During your visit today, we recorded the following information about you: Temperature Pulse Respiration Blood pressure 97.7 degrees 76/minute 16/minute 130/62 Weight 53.5 kg Annie Munoz LPN 05/13/2018 3:07 PM Signed Transitional Care Management Progress Note The patients TCM visit was performed within the 7 days of discharge. TCM Eligibility Documentation The following information was gathered during the initial Patient Outreach Encounter. Date of Outreach: 05/07/2018 Outreach Attempt 1: Contact Made Date of Discharge 05/05/2018 Some recent data might be hidden If no data exists please enter it manually. If data exists please delete date of discharge and date of initial contact seen below. Patient's Date of discharge: 05/05/2018 Date of initial coordinator contact after discharge: 05/07/2018 Discharge diagnosis: 1)Sepsis secondary to healthcare associated penumonia and COPD exacerbation as a result of human Metapneumo virus; 2)Suspected healthcare associated pneumonia; 3) COPD exacerbation secondary to human metaphneumo virus; 4) Acute on chronic hypoxic respiratory failure, secondary to #1 AND #2; 5) Elevated creatinine; 6) History of vocal cord cancer status post radiation, currently in remission/benign esophageal stricture; 7) Iron deficiency anemia; 8) Former tobacco use; 9) Moderate to severe protein calorie malnutrition; 10) Chronic leukocytosis/chronic thrombocytosis; 11) 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 approximately 15 years ago Medication review completed Yes Annie Munoz LPN Provider Documentation: In follow-up of hospitalization, Sabina Flores is a 78 year old male with the chief complaint of TCM I have reviewed the patient?s last hospital course including diagnostic testing performed during this hospitalization, their discharge medications, and my assessment and plan with the patient and any family members present at today?s visit. TRANSITION CARE MANAGEMENT (TCM) INITIAL CONTACT Commercial Loan Collection Officer Outreach ? Provider Action/FYI: ? ? ? Initial contact with patient post discharge, spoke to patient. Patient identified by name and . ? TRANSITION CARE MANAGEMENT INITIAL OUTREACH DOCUMENTATION: Date of Outreach: 05/07/2018 Outreach Attempt 1: Contact Made Date of Discharge 05/05/2018 Some recent data might be hidden ? ? SUMMARY: -Pt discharged from [facility] on 05/05/18. -Admitted for: sepsis,pneumonia ? Do you have a hospital follow up appointment with your PCP? Appointment on 05/13/18 with pcp. No. Assist patient with follow-up appointment within 1-14 calendar days from discharge date. If patient prefers not to schedule follow- up appointment at this time, notify PCP. ? MEDICATIONS: Many patients have questions or concerns about their medications once they are home. Were you prescribed any new medications? If yes, what are those medications? levaquin 750 mg po daily #5 Prednisone taper #30 tablets ? Were you told to hold any medications? No Were any of your medications discontinued? No ? Do you have any questions about getting or taking your medications? No ? Your discharge instructions/After visit Summary (AVS) are important in guiding you through the recovery process. Is there anything I might help you understand? No ? Do you have all the necessary equipment and supplies at home? Yes ? Medical records from recent hospitalization: Placed for provider to review Pt has follow up appt with Dr. Aguillon, to have labs drawn for CMP then. Pt says has appt with Dr. Dobbins already arranged. Note Details Additional Documentation Flowsheets: ? Transitional Care Management Varun Wang MD 05/13/2018 4:07 PM Signed Transitional Care Management TCM Eligibility Documentation The following information was gathered during the initial Patient Outreach Encounter. Date of Outreach: 05/07/2018 Outreach Attempt 1: Contact Made Date of Discharge 05/05/2018 Some recent data might be hidden Provider Documentation Sabina Flores is a 78 year old male here today for a follow up to recent hospitalization. I have reviewed the patient's hospital course including diagnostic testing performed during this hospitalization, their discharge medications, and my assessment and plan with the patient and any family members present at today's visit. HPI: Sabina Flores was admitted May.03- for sepsis due to healthcare associated pneumonia, chronic obstructive pulmonary disease exacerbation, human metaphneumo virus, acute on chronic respiratory failure, elevated creatinine, iron deficiency anemia, kidney insufficiency, malnutrition. He was feeling better. He was finishing prednisone, and he finished levofloxacin. He saw oncology May 09 and repeat labs were done. He just saw Dr. Dobbins for pulmonary follow up today. His anemia resolved. Leukocytosis and thrombocytosis were unchanged. 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 PREDNISONE ORAL Take by mouth. ondansetron orally disintegrating (ZOFRAN ODT) 4 mg disintegrating tablet 1 tablet as needed. oxyCODONE IR (ROXICODONE) 5 mg immediate release tablet Take 5 mg by mouth every 8 hours as needed. hydroxyurea (HYDREA) 100 mg/mL oral liquid Take 5 mL by mouth once daily. albuterol (PROVENTIL) 2.5 mg /3 mL (0.083 %) nebulizer solution Use 3 mL via nebulizer every 2 hours as needed for Wheezing/Shortness of Breath. Use over 5-15minutes. pantoprazole DR (PROTONIX) 40 mg tablet Take 1 tablet by mouth once daily. aspirin 81 mg chewable tablet Take 81 mg by mouth once daily. allopurinol (ZYLOPRIM) 300 mg tablet Take 1 tablet by mouth once daily. This can be crushed. Cholecalciferol, Vitamin D3, (VITAMIN D-3) 1,000 unit chew Take 1 tablet by mouth once daily. Chlorhexidine Gluconate (PERIDEX) 0.12 % solution Take 15 mL by mouth once daily. Swish for 30 seconds and then spit out. tiotropium-olodaterol (STIOLTO RESPIMAT) 2.5-2.5 mcg/actuation mist Inhale 2 Puffs as instructed once daily. levoFLOXacin (LEVAQUIN) 750 mg tablet 1 tablet once daily. No current facility-administered medications for this visit. Review of Systems Constitutional: Positive for malaise/fatigue and weight loss. Negative for chills, diaphoresis and fever. HENT: Negative. Respiratory: Positive for shortness of breath. Negative for cough and wheezing. Cardiovascular: Negative. Gastrointestinal: Negative. Musculoskeletal: Negative. Neurological: Negative. Vitals BP 130/62 Pulse 76 Temp (Src) 97.7 (Temporal Artery) Resp 16 Wt 118 lb (53.5kg) Physical Exam Constitutional: He is oriented to person, place, and time. He appears cachectic. No distress. HENT: Mouth/Throat: Oropharynx is clear and moist. Eyes: Conjunctivae are normal. No scleral icterus. Neck: No JVD present. Cardiovascular: Normal heart sounds. Exam reveals no gallop. No murmur heard. Pulmonary/Chest: No accessory muscle usage. No respiratory distress. He has decreased breath sounds. He has no wheezes. He has no rales. Abdominal: Soft. There is no tenderness. Musculoskeletal: He exhibits no edema. Neurological: He is alert and oriented to person, place, and time. Gait normal. Skin: Skin is warm and dry. He is not diaphoretic. ASSESSMENT/PLAN: 1. Healthcare-associated pneumonia - ICD9: 486, ICD10: J18.9 (primary diagnosis) Resolving. 2. Chronic obstructive pulmonary disease, unspecified COPD type (HCC) - ICD9: 496, ICD10: J44.9 Stable. 3. Hypoxemia - ICD9: 799.02, ICD10: R09.02 Stable. 4. Renal azotemia - ICD9: 790.6, ICD10: R79.89 Resolved. 5. Severe protein-calorie malnutrition (HCC) - ICD9: 262, ICD10: E43 Chronic. 6. Leukocytosis, unspecified type - ICD9: 288.60, ICD10: D72.829 Chronic. 7. Thrombocytosis (HCC) - ICD9: 238.71, ICD10: D47.3 Chronic. 8. Iron deficiency anemia, unspecified iron deficiency anemia type - ICD9: 280.9, ICD10: D50.9 Chronic. Varun Wang MD May 13, 2018 3:16 PM Referring Provider: VARUN WANG [[id number]] Allergies As of Date: 05/13/2018 Noted Allergy Reaction DOXYCYCLINE 01/07/2018 14 - Other: See Comments Comments: pancreatitis Date Reviewed: 05/13/2018 Reviewed by: Annie Munoz LPN - Fully Assessed Reason for Visit: [facility] follow-up [Other] Primary Visit Diagnosis:Healthcare-associated pneumonia [J18.9] Other Visit Diagnoses:Chronic obstructive pulmonary disease, unspecified COPD type (HCC) [J44.9] Hypoxemia [R09.02] Renal azotemia [R79.89] Severe protein-calorie malnutrition (HCC) [E43] Leukocytosis, unspecified type [D72.829] Thrombocytosis (HCC) [D47.3] Iron deficiency anemia, unspecified iron deficiency anemia type [D50.9] Prescriptions as of 05/13/2018 Sig: FLUTICASONE 110 MCG/ACTUATION* Inhale 1 Puff as instructed t* PREDNISONE ORAL Take by mouth. ONDANSETRON 4 MG DISINTEGRATI* 1 tablet as needed. OXYCODONE 5 MG TABLET Take 5 mg by mouth every 8 ho* HYDROXYUREA 100 MG/ML ORAL LI* Take 5 mL by mouth once daily. ALBUTEROL SULFATE 2.5 MG/3 ML* Use 3 mL via nebulizer every * PANTOPRAZOLE 40 MG TABLET,DEL* Take 1 tablet by mouth once d* ASPIRIN 81 MG CHEWABLE TABLET Take 81 mg by mouth once cristiana* ALLOPURINOL 300 MG TABLET Take 1 tablet by mouth once d* CHOLECALCIFEROL (VITAMIN D3) * Take 1 tablet by mouth once d* CHLORHEXIDINE GLUCONATE 0.12 * Take 15 mL by mouth once cristiana* TIOTROPIUM 2.5 MCG-OLODATEROL* Inhale 2 Puffs as instructed * Problem List As Of Date 05/13/2018 Noted Resolved Iron deficiency anemia [D50.9] INVALID FOR* Peptic ulcer, unspecified site, unspecified as *INVALID FOR*10/30/2011 Esophageal stricture [K22.2] INVALID FOR* Diverticulosis of large intestine without hemor*INVALID FOR*01/24/2018 Nonspecific abnormal results of liver function *INVALID FOR*03/31/2011 More... Personal history of alcoholism [F10.21] INVALID FOR*02/12/2014 Tobacco use disorder [F17.200] INVALID FOR*02/21/2016 Interstitial lung disease (HCC) [J84.9] INVALID FOR*05/13/2018 Lung nodule [R91.1] INVALID FOR*04/14/2013 More... Asthma [J45.909] INVALID FOR* COPD (chronic obstructive pulmonary disease) (H*INVALID FOR* Adenomatous colon polyp [D12.6] INVALID FOR* Polycythemia [D75.1] INVALID FOR*08/21/2016 Carcinoma in situ of larynx [D02.0] INVALID FOR*05/13/2018 Back pain, chronic [M54.9, G89.29] INVALID FOR* History of laryngeal cancer [Z85.21] INVALID FOR* Colon cancer screening [Z12.11] INVALID FOR*03/30/2016 Oral lesion [K13.70] INVALID FOR*11/20/2016 Hypoxemia [R09.02] INVALID FOR* Severe protein-calorie malnutrition (HCC) [E43] INVALID FOR* Thrombocytosis (HCC) [D47.3] INVALID FOR* Elevated protime [R79.1] INVALID FOR*01/24/2018 Elevated bilirubin [R17] INVALID FOR*05/13/2018 Shortness of breath [R06.02] INVALID FOR*09/22/2017 More... Body mass index (BMI) less than or equal to 19 *INVALID FOR*05/13/2018 Malignant neoplasm of larynx (HCC) [C32.9] INVALID FOR*05/13/2018 More... 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 Vitamin D deficiency [E55.9] INVALID FOR* Hypoalbuminemia [E88.09] INVALID FOR*05/13/2018 Prolonged INR [R79.1] INVALID FOR*09/22/2017 More... 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 Essential hypertension [I10] INVALID FOR* Acute gout of multiple sites [M10.9] INVALID FOR* Gastrointestinal hemorrhage [K92.2] INVALID FOR* Hematemesis [K92.0] INVALID FOR*05/13/2018 More... Acute blood loss anemia [D62] INVALID FOR*05/13/2018 GI bleed [K92.2] INVALID FOR*05/13/2018 More... Esophageal tear [S11.21XA] INVALID FOR*05/13/2018 More... Iron malabsorption [K90.9] INVALID FOR* Visit Notes: >> Annie Munoz LPN Mon May 13, 2018 3:00 PM Status: Signed Transitional Care Management Progress Note The patients TCM visit was performed within the 7 days of discharge. TCM Eligibility Documentation The following information was gathered during the initial Patient Outreach Encounter. Date of Outreach: 05/07/2018 Outreach Attempt 1: Contact Made Date of Discharge 05/05/2018 Some recent data might be hidden If no data exists please enter it manually. If data exists please delete date of discharge and date of initial contact seen below. Patient's Date of discharge: 05/05/2018 Date of initial coordinator contact after discharge: 05/07/2018 Discharge diagnosis: 1)Sepsis secondary to healthcare associated penumonia and COPD exacerbation as a result of human Metapneumo virus; 2)Suspected healthcare associated pneumonia; 3) COPD exacerbation secondary to human metaphneumo virus; 4) Acute on chronic hypoxic respiratory failure, secondary to #1 AND #2; 5) Elevated creatinine; 6) History of vocal cord cancer status post radiation, currently in remission/benign esophageal stricture; 7) Iron deficiency anemia; 8) Former tobacco use; 9) Moderate to severe protein calorie malnutrition; 10) Chronic leukocytosis/chronic thrombocytosis; 11) 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 approximately 15 years ago Medication review completed Yes Annie Munoz LPN Provider Documentation: In follow-up of hospitalization, Sabina Flores is a 78 year old male with the chief complaint of TCM I have reviewed the patient?s last hospital course including diagnostic testing performed during this hospitalization, their discharge medications, and my assessment and plan with the patient and any family members present at today?s visit. TRANSITION CARE MANAGEMENT (TCM) INITIAL CONTACT Commercial Loan Collection Officer Outreach ? Provider Action/FYI: ? ? ? Initial contact with patient post discharge, spoke to patient. Patient identified by name and . ? TRANSITION CARE MANAGEMENT INITIAL OUTREACH DOCUMENTATION: Date of Outreach: 05/07/2018 Outreach Attempt 1: Contact Made Date of Discharge 05/05/2018 Some recent data might be hidden ? ? SUMMARY: -Pt discharged from [facility] on 05/05/18. -Admitted for: sepsis,pneumonia ? Do you have a hospital follow up appointment with your PCP? Appointment on 05/13/18 with pcp. No. Assist patient with follow-up appointment within 1-14 calendar days from discharge date. If patient prefers not to schedule follow-up appointment at this time, notify PCP. ? MEDICATIONS: Many patients have questions or concerns about their medications once they are home. Were you prescribed any new medications? If yes, what are those medications? levaquin 750 mg po daily #5 Prednisone taper #30 tablets ? Were you told to hold any medications? No Were any of your medications discontinued? No ? Do you have any questions about getting or taking your medications? No ? Your discharge instructions/After visit Summary (AVS) are important in guiding you through the recovery process. Is there anything I might help you understand? No ? Do you have all the necessary equipment and supplies at home? Yes ? Medical records from recent hospitalization: Placed for provider to review Pt has follow up appt with Dr. Aguillon, to have labs drawn for CMP then. Pt says has appt with Dr. Dobbins already arranged. Note Details Additional Documentation Flowsheets: ? Transitional Care Management Medications Discontinued During This Encounter levoFLOXacin (LEVAQUIN) 750 mg tablet 05/05/2018 05/13/2018 Class: Historical Med Si tablet once daily. Disc: Course of therapy completed Disposition: Return in about 3 months (around 08/11/2018). Follow-up and Disposition History Recorded Encounter Status:Closed by VARUN WANG MD on 05/13/18 PULMONARY VISIT REPORT Observed: 05/13/2018 Status: F Source: [place] 12:08 PM [facility] of [address] [place] [address] OFFICE VISIT Date of Service: 05/13/18 MR#: [id number] Acct: [id number] Name: FLORESSABINA Raúl Rep #: [id number] : 1940 Provider: Garland Dobbins MD Age/Sex: 78/M [place]: [facility] [place] Status: Signed Assessment AND Plan Problems 1. Chronic obstructive pulmonary disease, unspecified COPD type J44.9 2. Chronic respiratory failure with hypoxia J96.11 3. Malnutrition of moderate degree E44.0 Plan Patient with recent exacerbation secondary to human Metapneumovirus, but appears to be responding appropriately to therapy. Patient is currently on triple therapy and tolerating well. Stressed to the patient the importance of using supplemental oxygen to maintain saturations above 90% at all times. Patient does not have oxygen with him at this time, but does have it available. Patient states he checks his oxygen frequently. Testing from November appears much worse than his reported baseline. Unclear if this is secondary to improvement in air trapping. Will obtain testing prior to next visit Complete taper as prescribed. Continue triple therapy. Repeat testing prior to next visit. Orders Orders: Plan Detail Follow Up 3 Months ([facility]) HPI 3 M FU: Chief Complaint: Recent hospitalization Details: Patient is a 78-year-old male, currently under the care of Dr. Wang, who presents for evaluation secondary to recent hospitalization and routine follow-up. Patient reports that he was admitted the [facility] to beginning of April with a viral infection. Patient was discharged on a prednisone taper was supposed to be using supplemental oxygen with ambulation. Patient reports that he has improved since discharge. Patient is not back to his baseline and still has some intermittent dry cough. Patient states he is currently on 20 mg of prednisone and has been using his albuterol once every 2-3 days. Patient has reinitiated his baseline triple therapy and denies any complications such as thrush, hoarseness or sore throat. Patient does report he lost some weight associated with his acute illness, but recently his appetite has improved along with his weight. Patient reports using 3 L nasal cannula with sleep. Patient wakes relatively rested and denies any complications such as epistaxis, dry mouth or hoarseness. Documentation reviewed 12 pages of documentation were reviewed from patient's recent hospitalization from 05/03/2018 until 05/05/2018 where patient was admitted with sepsis secondary to COPD exacerbation as a result of human Metapneumovirus Testing personally reviewed with the patient Complete PFT (12/25/2017): Irreversible severe large airways obstructive ventilatory defect with symmetric reduction in diffusing capacity, associated with air trapping and hyperinflation and worsened compared to previous study completed 02/20/2017 (FVC 69%, FEV1 46%, TLC 121%, RV 181%, DLCO 41%) Walking oximetry (12/26/2017): Ambulated 944 feet over the course of 6 minutes, but noted to be 91% on room air at rest and requiring 3 L/min with exertion HPI Comments Details: Intake Vital Signs05/13/18 Height 5 ft 11 in 05/13/18 Weight: 54.431 kg 05/13/18 Body Mass Index (BMI) 16.7 05/13/18 Blood Pressure 155/81 H Intake Visit Reasons: 3 M Marketing Officer Required: No Allergies doxycycline Adverse Reaction (Verified 05/13/18 08:46) PANCREATITIS Medications Albuterol Inhaler [Ventolin Hfa] 2 puff INHALATION Q6H PRN PRN 01/02/14 [History Confirmed 05/03/18] Allopurinol [Zyloprim] 300 mg PO DAILY 09/23/17 [History Confirmed 05/03/18] Fluticasone 110 Mcg [Flovent 110 Mcg] 1 puff INHALATION BID 09/23/17 [History Confirmed 05/03/18] Aspirin [Aspirin, Baby] 81 mg PO DAILY 05/03/18 [History Confirmed 05/13/18] Cholecalciferol (Vitamin D3) [Vitamin D3] 1,000 unit PO DAILY 05/03/18 [History Confirmed 05/13/18] Ondansetron [Ondansetron Odt] 4 mg PO Q4H PRN PRN 05/03/18 [History Confirmed 05/13/18] Oxycodone HCl 5 mg PO PRN PRN 05/03/18 [History Confirmed 05/13/18] Pantoprazole Sodium [Protonix] 20 mg PO DAILY 05/03/18 [History Confirmed 05/13/18] Prednisone See Taper PO DAILY #30 tab 05/05/18 [Rx Confirmed 05/13/18] levoFLOXacin tablet [Levaquin tablet] 750 mg PO DAILY@0600 #5 tab 05/05/18 [Rx Confirmed 05/13/18] PFSH Medical History COPD (chronic obstructive pulmonary disease) (Chronic) History of peptic ulcer disease (Chronic) Adenomatous colon polyp (Acute) Gout (Acute) History of cataract (Acute) Hypoxemia (Acute) Malignant neoplasm of larynx (Acute) Pancreatitis (Acute) Polycythemia (Acute) Protein calorie malnutrition (Acute) Thrombocytosis (Acute) Chronic back pain (Chronic) Iron deficiency anemia (Chronic) Stage 2 moderate COPD by GOLD classification (Chronic) Tobacco use (Chronic) Elevated LFTs (Resolved) Pneumonia (Resolved) Tongue cancer (Inactive) Surgical History Esophageal dilatation (Resolved) Floor of mouth resection, sialadochoplasty (Resolved) H/O colonoscopy (Resolved) History of esophagogastroduodenoscopy (EGD) (Resolved) History of laryngoscopy (Resolved) S/P partial gastrectomy (Resolved) Family History Brother Brain cancer Bone cancer Brain tumor Father CAD (coronary artery disease) Heart disease Social History household members: spouse pets and animals: Yes Smoking Status: Former smoker quit date: 04/30/13 pack-years: 116 how long ago did patient quit smokin second hand exposure: Yes alcohol intake: current alcohol intake frequency: 0-2 drinks per day Alcohol type: beer substance use type: does not use caffeine: Yes what type of physical activity do you participate in: none additional social history: DOES USE ASPIRIN DOES USE IBUPROFEN Review of Systems Const CONSTITUTIONAL: Positive fatigue; negative anorexia, body ache, chills, daytime sleepiness, fever(s), night sweats, oral thrush, stops breathing during sleep, weight loss, sleeping in chair, weight loss, weight gain, frequent colds, seasonal allergies, other, headache(s) or orthopnea EETM Ear Nose Throat Mouth: Positive hearing normal; negative hard of hearing, hoarseness, dry mouth in morning, change in vision, itchy eyes, eye pain, swallowing Difficulty, ear pain, nose bleed, headache(s), mouth pain, nasal congestion, nasal discharge, post nasal drip, sinus pain, sinus pressure, sore throat or other Cardio Cardiovascular: Positive murmur; negative chest pain, chest pain at rest, chest pain with activity, irregular heart rhythm, edema, shortness of breath when lying down, palpitations or other Resp Respiratory: Positive as per HPI, shortness of breath shortness of breath: Positive with activity and inhalers; negative pain with cough, wheezing, chest congestion, cough, chest tightness, pain on inspiration, increase use of rescue inhalers, snoring, apnea or other Gastro Gastrointestional: Negative bloody stools, change in appetite, difficulty swallowing, reflux, hematemesis, melena stool, loose stool, constipation or other Genitourinary: Negative blood in urine, nocturia, pain with urination or other Musc Musculoskeletal: Negative body pain, back pain, neck pain or other Skin/Breast Skin/Breast: Negative dry skin, itching, rash, unusual bruising, breast lump or other Neuro Neurological: Negative restless legs, confusion, weakness or other Psych Psychocological: Negative abnormal sleep pattern, anxiety, thoughts of hurting self/others, hopelessness or other Lymph Lymphatic: Negative easy bleeding, easy bruising, swollen lymph nodes or other Exam Const Constitutional: Positive conversant, cooperative, in no acute respiratory distress, well developed, frail appearing, appears older than stated age and cachectic; negative wearing supplemental oxygen or ill appearing Smells like cat Head Head: Positive normocephalic and atraumatic; negative cyanosis of lips/distal nose, frontal sinus tenderness or maxillary sinus tenderness Eyes Eye: Positive clear conjunctiva; negative nystagmus, scleral abnormality or cataract present Ears Ear: Positive hearing normal and external ears normal; negative hard of hearing Nose Nose: Positive external nose normal, septum normal and no nasal discharge; negative epistaxis or nasal polyp Mouth Mouth: Positive oral mucosae normal, no lesions and posterior oropharynx is adequate; negative post nasal drip, malodorous breath or oral thrush present Mallampati Score: II: Mallampati Score Neck Neck: Positive normal visual inspection, full ROM and trachea midline; negative lymphadenopathy or JVD Chest Wall Chest: Positive symmetric chest movement and increased A/P diameter; negative crepitus or tenderness Resp lung sounds: Positive diminished, prolonged expiratory time and normal chronic state of increased work of breathing; negative wheezes, rhonchi, rales, use of accessory muscles, wheeze present on forced exhalation or dullness to percussion Cardio Cardiac: Positive murmur, regular rate, S1 normal and S2 normal; negative regular rhythm, rub or gallop GI GI: Positive normal to inspection and normal bowel sounds; negative distended, ascites or epigastric tenderness Genitourinary: Positive deferred Musc Musculoskeletal: Positive steady gait; negative using an assistive device for ambulation, kyphosis or scoliosis Skin Pulmonary Skin Exam: Positive intact and dermal atrophy; negative rash, lesion, ulcers or erythema Pulses Pulse: Yes radial pulses present Extremities Extremities: Yes capillary refill normal, Yes clubbing, No cyanosis, No edema, Yes stasis dermatitis Neuro Neurologic: Yes conversant, Yes no focal neuro deficits, Yes normal concentration, Yes understands questions, Yes cooperative, Yes normal coordination, Yes normal cognition Lymph Lymphatic: No lymphadenopathy Psych Appearance: Positive grossly normal Mental Status: Positive mental status grossly normal Mood: Positive congruent mood Affect: Positive normal affect Coding Level of Care Code Off vis,est,level 4 Diagnoses Chronic obstructive pulmonary disease, unspecified COPD type J44.9 Chronic respiratory failure with hypoxia J96.11 Malnutrition of moderate degree E44.0 05/13/18 1208 <Electronically signed by Garland Dobbins MD> Date Garland Dobbins MD Cosigner Signature: Date (if applicable) CC: Varun Wang MD PROGRESS Observed: 05/09/2018 Status: COMPLETED Source: [facility] 4:25 PM [facility] REPOSITORY HNO ID: [id number] Author: Maura Aguillon Service: (none) Author Type: Physician Type: Progress Notes Filed: 05/10/2018 4:24 PM Note Text: Diagnoses: 1) JAK2 positive MPN. 2) Thrombocytosis. HPI: The patient is a 78-year-old male has a past medical history significant for COPD, GERD with previous peptic ulcer disease. He also has a history of head and neck cancer status post radiation and resection. History of esophageal dilation. He presented to the emergency department at [facility] in August with progressive dysphagia. Patient had a CT scan the abdomen and pelvis on 09/13/2017. Emphysematous changes were noted in the lung bases. There was a small amount of scarring in the left lung base. There was decreased attenuation of liver consistent with steatosis. Moderate splenomegaly was observed. No dimensions were rendered. There was heterogeneous enhancement of the spleen which was likely due to arterial phase of the exam. Pancreas was normal. Subsequent CT scan of the abdomen and pelvis when he was in emergency room on 09/23/2017 showed that there were new small bilateral pleural effusions, trace pericardial effusion which was new compared to the prior CT and again moderate splenomegaly with calcified splenic granulomas noted area no dimensions on the spleen were rendered. Review of previous CBCs available in the [facility] system indicate in October 2016 patient had a white count of 21,000. Differential was not performed. The hemoglobin was 13.8 g/dL and the total red blood cell count was 7,090,000/dL. Platelet count 805,000. He was referred to [facility] where he underwent an EGD on 09/21. 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 Biopsies however showed no evidence of malignancy. Stricture was attributed to previous radiation treatment. He was seen by hematology inpatient due to elevated white count, red blood cell count and platelet count. Molecular studies for myeloproliferative disorders were sent. JAK2 was positive. CT chest 11/29/2017: Once again, there is diffuse emphysematous changes. Stable area of scarring in the posterior aspect of the right upper lobe. There is a 1.7 cm by 1.2 cm nodular density adjacent to the descending thoracic aorta at the left lung base as seen on axial image #75. A similar appearing pleural-based nodule is seen in the posteromedial aspect of the left lower lobe measuring 1.7 cm. These were not seen on prior study due to the presence of the pleural effusions. Correlation with a PET scan is recommended. The previously seen pleural effusions have resolved. Normal heart and pericardium. Normal mediastinum. Enlarged right hilar lymph node measuring 2.4 cm. Normal enhanced pulmonary arteries. There is atherosclerotic calcification of the aortic arch with tortuosity and elongation of the aortic arch and descending thoracic aorta. Increased thoracic kyphosis. There is no demonstrated abnormality of the visualized upper abdomen. IMPRESSION: Diffuse emphysematous changes. Stable right hilar node enlargement. There are 2 noncalcified nodular densities in the left lower lobe as described. Correlation with a PET scan is recommended. CT A/P 11/29/2017: The previously seen small bilateral pleural effusions have resolved. Mild increased markings at the lung bases suggestive of scarring and/or atelectasis. There is a 1.1 cm pleural-based nodular density along the posterior medial aspect of the left lower lobe. This may represent scarring. Follow-up is recommended. Coronary artery calcification. Small pericardial effusion. Dilated intrahepatic biliary ducts. Slightly distended gallbladder. Dilated common bile duct. There is moderate splenomegaly. Stable calcified splenic granulomas. There is diffuse atrophy of the pancreas. An intraluminal filling defect is seen within the superior mesenteric vein in keeping with superior mesenteric venous thrombosis. This extends into the proximal portion of the portal vein at the spinal pleural junction. Normal bilateral adrenal glands. Normal right kidney. Normal left kidney. Normal visualized stomach. Surgical clips are seen at the gastroesophageal junction. Normal small intestine. Normal colon. The appendix is visualized and appears normal. There is diffuse atherosclerotic calcification of the abdominal aorta, without a demonstrated aneurysm. Normal inferior vena cava. There is borderline retroperitoneal lymphadenopathy with enlarged nodes no greater than 10mm in the short axis diameter. Distended urinary bladder. Normal abdominal wall. There are diffuse degenerative changes of the visualized lumbar spine. IMPRESSION: Findings suggest mild scarring at the lung bases. 1.1 cm pleural-based nodular density in the left lower lobe. Mild dilatation of the intrahepatic biliary ducts and mild dilatation of the gallbladder. Splenomegaly. Thrombosis of the superior mesenteric vein. While inpatient he was anticoagulated with Lovenox and then transitioned to warfarin. He was also seen by hematology consult with team and it was recommended that anagrelide be stopped due to the potential thrombogenic action of the drug. He was placed on liquid hydroxyurea. Had EGD under general anesthesia with dilation on November 27, 2017. He was hospitalized first week of November 2017 [facility] for superior mesenteric vein thrombosis. He had presented to the emergency department at [facility] on 11/29/2017 with left upper quadrant pain. He had been continuing on Coumadin. EGD 02/26/2018--A small amount of food (residue) was found in the gastric body. ? ? ?One benign-appearing, intrinsic moderate stenosis was found 17 cm ? ? ?from the incisors. This stenosis measured 1.3 cm (inner diameter) x ? ? ?less than one cm (in length). The stenosis was traversed. A guidewire ? ? ?was placed and the scope was withdrawn. Dilation was performed with a ? ? ?Savary dilator with no resistance at 12.8 14 and mild at 15 and 16mm. ? ? ?Post dilation inspection was satisfactory He presented to [facility] ED 03/04/2018 for for melena and bloody stools. Hgb was 6.9. received 1 unit RBCs and transferred to [facility] 03/04 through 03/09 for upper GI bleed. Received another unit RBC. EGD 03/06/2018-- 2 cm long mucosal tear evidently from recent esophageal dilation at upper esophagus. Healing. No current bleeding. Presents for ongoing hematologic management. Interim history: Underwent colonoscopy on 03/27. He was observed to have a sessile polyp in the cecum. It was removed. Pathology demonstrated fragments of tubular adenoma. He was hospitalized at [facility] on 05/03/2017 for chronic respiratory failure and health care associated pneumonia. Respiratory virus panel was positive for human meta-pneumonia virus. He was a week discharged on 05/05/2018. Denies cough at this point. Is not short of breath at rest. He is able to ambulate and breathes comfortably but heavier exertion gets short winded. No chest pain. No recurrence of fever. No drenching night sweats. His appetite is only fair at this point. He's had no unusual bleeding or unexplained bruising. PMH, medications and allergies personally reviewed by me today. Any changes documented in appropriate section. ROS: Constitutional: See above. Neuro: Denies ANGELES, vertigo, dizziness and imbalance. Denies symptoms of neuropathy other than occasional tingling in his fingertips which is transient--stable. HEENT: No recent change in voice, vision or hearing. Resp: See above. CVS: Denies PND, orthopnea and LE edema. GI: Denies dysgeusia. Denies symptoms of stomatitis. Denies reflux, n/v. : Denies dysuria or gross hematuria. No symptoms of bladder outlet obstruction. Endo: Denies hot flashes. Denies polyuria and polydipsia. Denies heat and cold intolerance. Musculoskeletal: Denies bone, back, joint and muscular pain. Derm: Denies rash. Denies diffuse pruritis. Heme: See above. Psych: Normal mood. PHYSICAL EXAM: Vitals: Blood pressure 147/88, pulse 94, temperature 36.5 ?C (97.7 ?F), weight 53.1 kg (117 lb). Thin, but well-appearing and in no acute distress. EYES: Sclerae are anicteric bilaterally. NECK: Supple. LYMPHATIC: There is no palpable cervical, supraclavicular or axillary adenopathy. RESPIRATORY: Inspiratory breath sounds are of diminished intensity in all michaels. No rales, wheezes or rhonchi. CARDIOVASCULAR: Rhythm is regular. Normal intensity S1/S2. ABDOMEN: The abdomen is nondistended. I cannot appreciate splenomegaly. No tenderness. Extremities: No swelling or edema. SKIN: No jaundice or rash. No petechiae. NEUROLOGIC: service desk associate II-XII are grossly intact. No focal motor weakness. MUSCULOSKELETAL: No muscle wasting. ASSESSMENT/PLAN: (D47.1) Myeloproliferative disorder (HCC) (primary encounter diagnosis) (D47.3) Thrombocytosis (HCC) Assessment: -In summary the patient is a 78-year-old male who has a history of elevated blood counts. 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 He has a remote history of bleeding gastric ulcer 50 years ago status post surgery. No known history of coronary artery or peripheral arterial disease. Risk factors for cardiovascular disease include hypertension and history of smoking. -Anagrelide discontinued due to potential thrombogenic action of the drug--was thought to precipitate the mesenteric vein thrombosis -Hydrea was held last time due to severe iron deficiency anemia. His counts are now increasing and there is no further evidence of iron deficiency. Plan: -Resume Hydrea 500 mg daily. -CBC in 2 weeks. -He will continue under the care of his primary care physician for management of other modifiable cardiovascular risk factors. -OV in 3 months. (I81) Superior mesenteric vein thrombosis Assessment: -Patient has several risk factors for thrombosis including underlying myeloproliferative, JAK2 positive neoplasm and recent use of anagrelide. -Anticoagulation discontinued when developed life-threatening upper GI bleed. -CT 03/28/2018 demonstrated resolution of mesenteric vein thrombosis. Plan: -Off anticoagulation for the time being. (K92.2) Gastrointestinal hemorrhage, unspecified gastrointestinal hemorrhage type Assessment: -Most likely due to esophageal mucosal tear from EGD/dilation on 02/26. -He continues on low-dose aspirin with no further evidence of melena or hematochezia. -One cecal polyp removed on recent colonoscopy. Plan: -Hold on Coumadin. Maura Aguillon DO CNOVSP Observed: 05/09/2018 Status: COMPLETED Source: [facility] 4:20 PM [facility] REPOSITORY Visit (SP) Office (ANIA) SABINA FLORES ([id number]) 1940 M Date Time Provider Department 05/09/18 4:20 PM MAURA AGUILLON During your visit today, we recorded the following information about you: Temperature Pulse Blood pressure Weight 97.7 degrees 94/minute 147/88 53.1 kg Opal Ceballos LPN, LPN 05/09/2018 4:37 PM Signed Est pt. Discuss recent hospitalization and lab results XENIA Patiño DO 05/10/2018 4:24 PM Signed Diagnoses: 1) JAK2 positive MPN. 2) Thrombocytosis. HPI: The patient is a 78-year-old male has a past medical history significant for COPD, GERD with previous peptic ulcer disease. He also has a history of head and neck cancer status post radiation and resection. History of esophageal dilation. He presented to the emergency department at [facility] in August with progressive dysphagia. Patient had a CT scan the abdomen and pelvis on 09/13/2017. Emphysematous changes were noted in the lung bases. There was a small amount of scarring in the left lung base. There was decreased attenuation of liver consistent with steatosis. Moderate splenomegaly was observed. No dimensions were rendered. There was heterogeneous enhancement of the spleen which was likely due to arterial phase of the exam. Pancreas was normal. Subsequent CT scan of the abdomen and pelvis when he was in emergency room on 09/23/2017 showed that there were new small bilateral pleural effusions, trace pericardial effusion which was new compared to the prior CT and again moderate splenomegaly with calcified splenic granulomas noted area no dimensions on the spleen were rendered. Review of previous CBCs available in the [facility] system indicate in October 2016 patient had a white count of 21,000. Differential was not performed. The hemoglobin was 13.8 g/dL and the total red blood cell count was 7,090,000/dL. Platelet count 805,000. He was referred to [facility] where he underwent an EGD on 09/21. 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 Biopsies however showed no evidence of malignancy. Stricture was attributed to previous radiation treatment. He was seen by hematology inpatient due to elevated white count, red blood cell count and platelet count. Molecular studies for myeloproliferative disorders were sent. JAK2 was positive. CT chest 11/29/2017: Once again, there is diffuse emphysematous changes. Stable area of scarring in the posterior aspect of the right upper lobe. There is a 1.7 cm by 1.2 cm nodular density adjacent to the descending thoracic aorta at the left lung base as seen on axial image #75. A similar appearing pleural-based nodule is seen in the posteromedial aspect of the left lower lobe measuring 1.7 cm. These were not seen on prior study due to the presence of the pleural effusions. Correlation with a PET scan is recommended. The previously seen pleural effusions have resolved. Normal heart and pericardium. Normal mediastinum. Enlarged right hilar lymph node measuring 2.4 cm. Normal enhanced pulmonary arteries. There is atherosclerotic calcification of the aortic arch with tortuosity and elongation of the aortic arch and descending thoracic aorta. Increased thoracic kyphosis. There is no demonstrated abnormality of the visualized upper abdomen. IMPRESSION: Diffuse emphysematous changes. Stable right hilar node enlargement. There are 2 noncalcified nodular densities in the left lower lobe as described. Correlation with a PET scan is recommended. CT A/P 11/29/2017: The previously seen small bilateral pleural effusions have resolved. Mild increased markings at the lung bases suggestive of scarring and/or atelectasis. There is a 1.1 cm pleural-based nodular density along the posterior medial aspect of the left lower lobe. This may represent scarring. Follow-up is recommended. Coronary artery calcification. Small pericardial effusion. Dilated intrahepatic biliary ducts. Slightly distended gallbladder. Dilated common bile duct. There is moderate splenomegaly. Stable calcified splenic granulomas. There is diffuse atrophy of the pancreas. An intraluminal filling defect is seen within the superior mesenteric vein in keeping with superior mesenteric venous thrombosis. This extends into the proximal portion of the portal vein at the spinal pleural junction. Normal bilateral adrenal glands. Normal right kidney. Normal left kidney. Normal visualized stomach. Surgical clips are seen at the gastroesophageal junction. Normal small intestine. Normal colon. The appendix is visualized and appears normal. There is diffuse atherosclerotic calcification of the abdominal aorta, without a demonstrated aneurysm. Normal inferior vena cava. There is borderline retroperitoneal lymphadenopathy with enlarged nodes no greater than 10mm in the short axis diameter. Distended urinary bladder. Normal abdominal wall. There are diffuse degenerative changes of the visualized lumbar spine. IMPRESSION: Findings suggest mild scarring at the lung bases. 1.1 cm pleural-based nodular density in the left lower lobe. Mild dilatation of the intrahepatic biliary ducts and mild dilatation of the gallbladder. Splenomegaly. Thrombosis of the superior mesenteric vein. While inpatient he was anticoagulated with Lovenox and then transitioned to warfarin. He was also seen by hematology consult with team and it was recommended that anagrelide be stopped due to the potential thrombogenic action of the drug. He was placed on liquid hydroxyurea. Had EGD under general anesthesia with dilation on November 27, 2017. He was hospitalized first week of November 2017 [facility] for superior mesenteric vein thrombosis. He had presented to the emergency department at [facility] on 11/29/2017 with left upper quadrant pain. He had been continuing on Coumadin. EGD 02/26/2018--A small amount of food (residue) was found in the gastric body. ? ? ?One benign-appearing, intrinsic moderate stenosis was found 17 cm ? ? ?from the incisors. This stenosis measured 1.3 cm (inner diameter) x ? ? ?less than one cm (in length). The stenosis was traversed. A guidewire ? ? ?was placed and the scope was withdrawn. Dilation was performed with a ? ? ?Savary dilator with no resistance at 12.8 14 and mild at 15 and 16mm. ? ? ?Post dilation inspection was satisfactory He presented to [facility] ED 03/04/2018 for for melena and bloody stools. Hgb was 6.9. received 1 unit RBCs and transferred to [facility] 03/04 through 03/09 for upper GI bleed. Received another unit RBC. EGD 03/06/2018-- 2 cm long mucosal tear evidently from recent esophageal dilation at upper esophagus. Healing. No current bleeding. Presents for ongoing hematologic management. Interim history: Underwent colonoscopy on 03/27. He was observed to have a sessile polyp in the cecum. It was removed. Pathology demonstrated fragments of tubular adenoma. He was hospitalized at [facility] on 05/03/2017 for chronic respiratory failure and health care associated pneumonia. Respiratory virus panel was positive for human meta-pneumonia virus. He was a week discharged on 05/05/2018. Denies cough at this point. Is not short of breath at rest. He is able to ambulate and breathes comfortably but heavier exertion gets short winded. No chest pain. No recurrence of fever. No drenching night sweats. His appetite is only fair at this point. He's had no unusual bleeding or unexplained bruising. PMH, medications and allergies personally reviewed by me today. Any changes documented in appropriate section. ROS: Constitutional: See above. Neuro: Denies ANGELES, vertigo, dizziness and imbalance. Denies symptoms of neuropathy other than occasional tingling in his fingertips which is transient--stable. HEENT: No recent change in voice, vision or hearing. Resp: See above. CVS: Denies PND, orthopnea and LE edema. GI: Denies dysgeusia. Denies symptoms of stomatitis. Denies reflux, n/v. : Denies dysuria or gross hematuria. No symptoms of bladder outlet obstruction. Endo: Denies hot flashes. Denies polyuria and polydipsia. Denies heat and cold intolerance. Musculoskeletal: Denies bone, back, joint and muscular pain. Derm: Denies rash. Denies diffuse pruritis. Heme: See above. Psych: Normal mood. PHYSICAL EXAM: Vitals: Blood pressure 147/88, pulse 94, temperature 36.5 ?C (97.7 ?F), weight 53.1 kg (117 lb). Thin, but well-appearing and in no acute distress. EYES: Sclerae are anicteric bilaterally. NECK: Supple. LYMPHATIC: There is no palpable cervical, supraclavicular or axillary adenopathy. RESPIRATORY: Inspiratory breath sounds are of diminished intensity in all michaels. No rales, wheezes or rhonchi. CARDIOVASCULAR: Rhythm is regular. Normal intensity S1/S2. ABDOMEN: The abdomen is nondistended. I cannot appreciate splenomegaly. No tenderness. Extremities: No swelling or edema. SKIN: No jaundice or rash. No petechiae. NEUROLOGIC: service desk associate II-XII are grossly intact. No focal motor weakness. MUSCULOSKELETAL: No muscle wasting. ASSESSMENT/PLAN: (D47.1) Myeloproliferative disorder (HCC) (primary encounter diagnosis) (D47.3) Thrombocytosis (HCC) Assessment: -In summary the patient is a 78-year-old male who has a history of elevated blood counts. 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 He has a remote history of bleeding gastric ulcer 50 years ago status post surgery. No known history of coronary artery or peripheral arterial disease. Risk factors for cardiovascular disease include hypertension and history of smoking. -Anagrelide discontinued due to potential thrombogenic action of the drug--was thought to precipitate the mesenteric vein thrombosis -Hydrea was held last time due to severe iron deficiency anemia. His counts are now increasing and there is no further evidence of iron deficiency. Plan: -Resume Hydrea 500 mg daily. -CBC in 2 weeks. -He will continue under the care of his primary care physician for management of other modifiable cardiovascular risk factors. -OV in 3 months. (I81) Superior mesenteric vein thrombosis Assessment: -Patient has several risk factors for thrombosis including underlying myeloproliferative, JAK2 positive neoplasm and recent use of anagrelide. -Anticoagulation discontinued when developed life-threatening upper GI bleed. -CT 03/28/2018 demonstrated resolution of mesenteric vein thrombosis. Plan: -Off anticoagulation for the time being. (K92.2) Gastrointestinal hemorrhage, unspecified gastrointestinal hemorrhage type Assessment: -Most likely due to esophageal mucosal tear from EGD/dilation on 02/26. -He continues on low-dose aspirin with no further evidence of melena or hematochezia. -One cecal polyp removed on recent colonoscopy. Plan: -Hold on Coumadin. Maura Aguillon DO Referring Provider: HERNESTO SARKAR [[id number]] Allergies As of Date: 05/09/2018 Noted Allergy Reaction DOXYCYCLINE 01/07/2018 14 - Other: See Comments Comments: pancreatitis Date Reviewed: 05/09/2018 Reviewed by: Opal Shen (Xenia) XENIA Ceballos - Fully Assessed Reason for Visit: Established Patient [175] Primary Visit Diagnosis:Superior mesenteric vein thrombosis [I81] Other Visit Diagnoses:Myeloproliferative disorder (HCC) [D47.1] Iron deficiency anemia, unspecified iron deficiency anemia type [D50.9] Order(s):hydroxyurea (HYDREA) 100 mg/mL oral liquidTake 5 mL by mouth once daily.Disp: 150 mLRfl: 5 Follow-up and Disposition History Recorded Prescriptions as of 05/09/2018 Sig: ONDANSETRON 4 MG DISINTEGRATI* 1 tablet as needed. OXYCODONE 5 MG TABLET Take 5 mg by mouth every 8 ho* LEVOFLOXACIN 750 MG TABLET 1 tablet once daily. ALBUTEROL SULFATE 2.5 MG/3 ML* Use 3 mL via nebulizer every * PANTOPRAZOLE 40 MG TABLET,DEL* Take 1 tablet by mouth once d* ASPIRIN 81 MG CHEWABLE TABLET Take 81 mg by mouth once cristiana* ALLOPURINOL 300 MG TABLET Take 1 tablet by mouth once d* CHOLECALCIFEROL (VITAMIN D3) * Take 1 tablet by mouth once d* CHLORHEXIDINE GLUCONATE 0.12 * Take 15 mL by mouth once cristiana* TIOTROPIUM 2.5 MCG-OLODATEROL* Inhale 2 Puffs as instructed * HYDROXYUREA 100 MG/ML ORAL LI* Take 5 mL by mouth once daily. Problem List As Of Date 05/09/2018 Noted Resolved Iron deficiency anemia [D50.9] INVALID FOR* Peptic ulcer, unspecified site, unspecified as *INVALID FOR*10/30/2011 Esophageal stricture [K22.2] INVALID FOR* Diverticulosis of large intestine without hemor*INVALID FOR*01/24/2018 Nonspecific abnormal results of liver function *INVALID FOR*03/31/2011 More... Personal history of alcoholism [F10.21] INVALID FOR*02/12/2014 Tobacco use disorder [F17.200] INVALID FOR*02/21/2016 Interstitial lung disease (HCC) [J84.9] INVALID FOR* Lung nodule [R91.1] INVALID FOR*04/14/2013 More... Asthma [J45.909] INVALID FOR* COPD (chronic obstructive pulmonary disease) (H*INVALID FOR* More... 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 Thrombocytosis (HCC) [D47.3] INVALID FOR* Elevated protime [R79.1] INVALID FOR*01/24/2018 Elevated bilirubin [R17] INVALID FOR* Shortness of breath [R06.02] INVALID FOR*09/22/2017 More... Body mass index (BMI) less than or equal to 19 *INVALID FOR* Malignant neoplasm of larynx (HCC) [C32.9] INVALID FOR* More... 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 Vitamin D deficiency [E55.9] INVALID FOR* Hypoalbuminemia [E88.09] INVALID FOR* Prolonged INR [R79.1] INVALID FOR*09/22/2017 More... 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 Essential hypertension [I10] INVALID FOR* Acute gout of multiple sites [M10.9] INVALID FOR* Gastrointestinal hemorrhage [K92.2] INVALID FOR* Hematemesis [K92.0] INVALID FOR* More... Acute blood loss anemia [D62] INVALID FOR* GI bleed [K92.2] INVALID FOR* More... Esophageal tear [S11.21XA] INVALID FOR* More... Iron malabsorption [K90.9] INVALID FOR* Visit Notes: >> Opal Hemrelinda (Xenia) XENIA Ceballos [facility] May 09, 2018 4:15 PM Status: Signed Est pt. Discuss recent hospitalization and lab results Opal Alexandergeorges Ceballos LPN Encounter Status:Closed by MAURA AGUILLON DO on 05/10/18 COMP METABOLIC PANEL Collected: 05/09/2018 Status: F Source: [place] 3:52 PM [facility] [place] REPOSITORY TYPE CODE TESTS RESULT OUT OF REFERENCE UNITS RANGE LAB TP 6.3-8.0 g/dL Protein, Low Total 6.1 LAB ALB 3.9-4.9 g/dL Albumin Low 3.7 LAB CA 8.5-10.2 mg/dL Calcium, Total 9.1 LAB TBIL 0.2-1.3 mg/dL Bilirubin, Total 0.4 LAB ALKP 38-113 U/L Alkaline Phosphatase 104 LAB AST 14-40 U/L AST 15 LAB GLU 74-99 mg/dL Glucose High 144 LAB BUN 9-24 mg/dL BUN 17 LAB CRET 0.73-1.22 mg/dL Creatinine 0.98 LAB NA 136-144 mmol/L Sodium 140 LAB K 3.7-5.1 mmol/L Potassium 3.7 LAB CL 97-105 mmol/L Chloride 104 LAB CO2 22-30 mmol/L CO2 27 LAB AGAP 9-18 mmol/L Anion Gap 9 LAB ALT 10-54 U/L ALT 10 LAB GFRAA eGFR- >60 Amer. LAB GFRNAA . eGFR-All Other Races >60 Result Comment: eGFR (Estimated GFR) Units of measure: mL/min/1.73 meters squared eGFR is derived from the reexpressed MDRD Study equation using the following parameters: serum creatinine, age, gender and race. The creatinine assay has been calibrated to be traceable to IDMS. An eGFR <60 mL/min/1.73m2 for >3 months is consistent with chronic kidney disease. Refer to KDOQI guidelines for clinical interpretation. In patients with unstable renal function, e.g. those with acute kidney injury, the eGFR may not accurately reflect actual GFR. DIFFERENTIAL Collected: 05/09/2018 Status: F Source: [place] ([facility] LAB USE 3:51 PM [facility] ONLY) REPOSITORY TYPE CODE TESTS RESULT OUT OF REFERENCE UNITS RANGE LAB NEUT % Neut% 89 LAB LYMPH % 3 Lymph% LAB MONO % Preston% 3 LAB EOSIN % 1 Eosin% LAB BASO % Baso% 1 LAB MYELO % 3 Myelo% LAB RBCMOR Red SEE COMMENT Cell Morph Result Comment: Slight Polychromasia Anisocytosis Few Ovalocytes LAB DIFCOM Diff SEE Comments COMMENT Result Comment: Left Shift Performed By: #### DIFF #### [facility] Proenza Schouer [address] [place], [place] [address] ARLEEN CBC AND DIFF Collected: 05/09/2018 Status: F Source: [place] 3:51 PM [facility] REPOSITORY TYPE CODE TESTS RESULT OUT OF REFERENCE UNITS RANGE LAB WWBC 3.70-11.00 k/uL Arleen High WBC 24.39 LAB WRBC 4.20-6.00 m/uL [place] RBC 5.95 LAB WHGB 13.0-17.0 g/dL [place] Hemoglobin 13.4 LAB WHCT 39.0-51.0 % [place] Hematocrit 45.1 LAB WMCV 80.0-100.0 fL Low [place] MCV 75.8 LAB WMCH 26.0-34.0 pg Low Arleen MCH 22.5 LAB WMCHC 30.5-36.0 g/dL Low Arleen MCHC 29.7 Result Comment: Result checked and verified LAB WRDW 11.5-15.0 % High [place] RDW 27.3 LAB WPLT 150-400 k/uL High [place] 807 Platelet Cnt LAB WMPV 9.0-12.7 fL [place] MPV 10.0 Result Comment: Test performed at: [facility], [address] [place] [address] Rd[address] [place] [address]. Performed By: #### DIFF #### [facility] Proenza Schouer [address] [place], [place] [address] IRON AND TIBC Collected: 05/09/2018 Status: F Source: [place] 3:50 PM [facility] REPOSITORY TYPE CODE TESTS RESULT OUT OF REFERENCE UNITS RANGE LAB IRN 41-186 ug/dL Iron 98 LAB TIBC 232-386 ug/dL TIBC 233 LAB SAT 15-57 % Transferrin Saturatn 42 Performed By: #### IRON, FERR #### [facility] [address] [place], [place] [address] FERRITIN Collected: 05/09/2018 Status: F Source: [place] 3:50 PM [facility] REPOSITORY TYPE CODE TESTS RESULT OUT OF REFERENCE UNITS RANGE LAB FERR 30.3-565.7 ng/mL Ferritin 528.9 Performed By: #### IRON, FERR #### [facility] [address] [place], [place] [address] PROGRESS Observed: 05/07/2018 Status: COMPLETED Source: [place] 10:39 AM [facility] REPOSITORY HNO ID: [id number] Author: Yamile Shirley LPN Service: (none) Author Type: (none) Type: Progress Notes Filed: 05/15/2018 10:33 AM Note Text: TRANSITION CARE MANAGEMENT (TCM) INITIAL CONTACT Commercial Loan Collection Officer Outreach Provider Action/FYI: Initial contact with patient post discharge, spoke to patient. Patient identified by name and . TRANSITION CARE MANAGEMENT INITIAL OUTREACH DOCUMENTATION: Date of Outreach: 05/07/2018 Outreach Attempt 1: Contact Made Date of Discharge 05/05/2018 Some recent data might be hidden SUMMARY: -Pt discharged from [facility] on 05/05/18. -Admitted for: sepsis,pneumonia Do you have a hospital follow up appointment with your PCP? Appointment on 05/13/18 with pcp. No. Assist patient with follow-up appointment within 1-14 calendar days from discharge date. If patient prefers not to schedule follow-up appointment at this time, notify PCP. MEDICATIONS: Many patients have questions or concerns about their medications once they are home. Were you prescribed any new medications? If yes, what are those medications? levaquin 750 mg po daily #5 Prednisone taper #30 tablets Were you told to hold any medications? No Were any of your medications discontinued? No Do you have any questions about getting or taking your medications? No Your discharge instructions/After visit Summary (AVS) are important in guiding you through the recovery process. Is there anything I might help you understand? No Do you have all the necessary equipment and supplies at home? Yes Medical records from recent hospitalization: Placed for provider to review Pt has follow up appt with Dr. Aguillon, to have labs drawn for CMP then. Pt says has appt with Dr. Dobbins already arranged. 12 LEAD ELECTROCARDIOGRAM Observed: 05/07/2018 Status: F Source: [place] 8:46 AM [facility] [facility] Cardi[facility] Services [address] [place] [address] 12 Lead EKG 05/03/18 1318 MR#: [id number] Acct: [id number] Name: SABINA FOLRES Rep #: [id number] : 1940 78 From: Jaden Paredes MD Attending Dr: Keegan Hazel DO Status: DIS IN Ordering Dr: Terrance Holland MD Date: 05/03/18 Location: [facility] Sex: M C Admitted: 05/03/18 Test Reason : SOB Blood Pressure : / mmHG Vent. Rate : 111 BPM Atrial Rate : 111 BPM P-R Int : 166 ms QRS Dur : 074 ms QT Int : 336 ms P-R-T Axes : 070 -31 077 degrees QTc Int : 456 ms Sinus tachycardia with occasional Premature ventricular complexes Left axis deviation Low voltage QRS Inferior infarct , age undetermined Abnormal ECG Confirmed by JADEN PAREDES MD ([id number]), medical transcription editor CINTHYA JOLLEY ([id number]) on 05/07/2018 8:46:02 AM Referred By: Tomasa Chris Confirmed By:JADEN PAREDES MD 05/07/18 0846 Date Jaden Paredes MD CC: Tomasa Chris; Terrance Holland MD; Keegan Hazel DO; Varun Wang MD Signed CNPTOUTREACH Observed: 05/07/2018 Status: COMPLETED Source: [place] 12:00 AM [facility] REPOSITORY Patient Outreach (INTMWS) SABINA FLORES ([id number]) 1940 M Date Time Provider Department 05/07/18 VARUN WANG During your visit today, we recorded the following information about you: Yamile Shirley LPN 05/15/2018 10:33 AM Signed TRANSITION CARE MANAGEMENT (TCM) INITIAL CONTACT Commercial Loan Collection Officer Outreach Provider Action/FYI: Initial contact with patient post discharge, spoke to patient. Patient identified by name and . TRANSITION CARE MANAGEMENT INITIAL OUTREACH DOCUMENTATION: Date of Outreach: 05/07/2018 Outreach Attempt 1: Contact Made Date of Discharge 05/05/2018 Some recent data might be hidden SUMMARY: -Pt discharged from [facility] on 05/05/18. -Admitted for: sepsis,pneumonia Do you have a hospital follow up appointment with your PCP? Appointment on 05/13/18 with pcp. No. Assist patient with follow-up appointment within 1-14 calendar days from discharge date. If patient prefers not to schedule follow- up appointment at this time, notify PCP. MEDICATIONS: Many patients have questions or concerns about their medications once they are home. Were you prescribed any new medications? If yes, what are those medications? levaquin 750 mg po daily #5 Prednisone taper #30 tablets Were you told to hold any medications? No Were any of your medications discontinued? No Do you have any questions about getting or taking your medications? No Your discharge instructions/After visit Summary (AVS) are important in guiding you through the recovery process. Is there anything I might help you understand? No Do you have all the necessary equipment and supplies at home? Yes Medical records from recent hospitalization: Placed for provider to review Pt has follow up appt with Dr. Aguillon, to have labs drawn for CMP then. Pt says has appt with Dr. Dobbins already arranged. Allergies As of Date: 05/07/2018 Noted Allergy Reaction DOXYCYCLINE 01/07/2018 14 - Other: See Comments Comments: pancreatitis Date Reviewed: 04/22/2018 Reviewed by: Yamile De, RN, RN - Fully Assessed Reason for Visit: Transition Of Care [4074] Prescriptions as of 05/07/2018 Sig: ALBUTEROL SULFATE 2.5 MG/3 ML* Use 3 mL via nebulizer every * PANTOPRAZOLE 40 MG TABLET,DEL* Take 1 tablet by mouth once d* ASPIRIN 81 MG CHEWABLE TABLET Take 81 mg by mouth once cristiana* ALLOPURINOL 300 MG TABLET Take 1 tablet by mouth once d* X HYDROXYUREA 100 MG/ML ORAL LI* Take 5 mL by mouth once daily. Patient not taking: Reported on 05/09/2018 CHOLECALCIFEROL (VITAMIN D3) * Take 1 tablet by mouth once d* CHLORHEXIDINE GLUCONATE 0.12 * Take 15 mL by mouth once cristiana* TIOTROPIUM 2.5 MCG-OLODATEROL* Inhale 2 Puffs as instructed * Problem List As Of Date 05/07/2018 Noted Resolved Iron deficiency anemia [D50.9] INVALID FOR* Peptic ulcer, unspecified site, unspecified as *INVALID FOR*10/30/2011 Esophageal stricture [K22.2] INVALID FOR* Diverticulosis of large intestine without hemor*INVALID FOR*01/24/2018 Nonspecific abnormal results of liver function *INVALID FOR*03/31/2011 More... Personal history of alcoholism [F10.21] INVALID FOR*02/12/2014 Tobacco use disorder [F17.200] INVALID FOR*02/21/2016 Interstitial lung disease (HCC) [J84.9] INVALID FOR* Lung nodule [R91.1] INVALID FOR*04/14/2013 More... 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 Body mass index (BMI) less than or equal to 19 *INVALID FOR* Malignant neoplasm of larynx (HCC) [C32.9] INVALID FOR* More... 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 Vitamin D deficiency [E55.9] INVALID FOR* Hypoalbuminemia [E88.09] INVALID FOR* Prolonged INR [R79.1] INVALID FOR*09/22/2017 More... 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 Essential hypertension [I10] INVALID FOR* Acute gout of multiple sites [M10.9] INVALID FOR* Gastrointestinal hemorrhage [K92.2] INVALID FOR* Hematemesis [K92.0] INVALID FOR* More... Acute blood loss anemia [D62] INVALID FOR* GI bleed [K92.2] INVALID FOR* More... Esophageal tear [S11.21XA] INVALID FOR* More... Iron malabsorption [K90.9] INVALID FOR* Encounter Status:Closed by YAMILE SHIRLEY LPN on 05/15/18 DISCHARGE SUMMARY Observed: 05/05/2018 Status: F Source: [place] 2:15 PM [facility] [facility] Medical Records Department [address] [place] [address] Discharge Summary 05/05/18 1126 MR#: [id number] Acct: [id number] Name: SABINA FLORES #: [id number] : 1940 78 From: Dai ZULUAGA PCP: Varun Wang MD Status: DIS IN Y Location: [place] [id number] ADDENDUM by Keegan Hazel DO on 05/05/18 at 1414 Code Visit Patient was seen and examined today independently of Dai Romano, on examination, he has very mild expiratory wheezes, he does not seem to be in any distress and he is comfortable on nasal cannula O2. Patient's pulse ox on ambulation on room air was 87%, again he has oxygen at home. Physical exam: On examination he appeared in good health and spirits. Vital signs as documented. Skin warm and dry and without overt rashes. Neck without JVD. Lungs faint scattered expiratory wheezes are noted bilaterally which are not severe, breath sounds are distant. Heart exam notable for regular rhythm, normal sounds and absence of murmurs, rubs or gallops. Abdomen unremarkable and without evidence of organomegaly, masses, or abdominal aortic enlargement. Extremities nonedematous. Neuro: Cranial nerves II through XII are grossly intact, no focal motor deficits were noted, sensation to light touch and pinprick intact. Psych: Patient is alert and oriented x3, he does not appear anxious or depressed On 05/05/18, patient was seen and examined, he was felt to be stable for discharge home. I have reviewed Dai Romano's discharge summary including her medical plan of care and assessment and endorse it. Inpatient E AND M: [id number] Disch Hosp 05/05/18 1415 <Electronically signed by Keegan Hazel DO> Date Keegan Hazel DO cc: ZAN Romano; Keegan Hazel DO; Varun Wang MD * Signed ADDENDUM by ZAN Romano on 05/05/18 at 1343 Code Visit Addendum: Healthcare associated pneumonia presumed secondary to gram-negative organism. 05/05/18 1343 <Electronically signed by Dai ZULUAGA> Date Dai Romano cc: ZAN Romano; Keegan Hazel DO; Varun Wang MD * Signed Addendum entered and electronically signed by ZAN Burger 05/05/18 13:43: Code Visit Addendum: Healthcare associated pneumonia presumed secondary to gram-negative organism. Original Note: Discharge Date and Diagnosis Date of Admission: 05/03/18 Date of Discharge: 05/05/18 - Primary Discharge Diagnosis 1. Sepsis secondary to healthcare associated pneumonia and COPD exacerbation as a result of human Metapneumo virus 2. Suspected healthcare associated pneumonia 3. COPD exacerbation secondary to human metaphneumo virus 4. Acute on chronic hypoxic respiratory failure, secondary to #1/#2 5. Elevated creatinine 6. 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 Iron deficiency anemia 8. Former tobacco use 9. Moderate to severe protein calorie malnutrition 10. Chronic leukocytosis/chronic thrombocytosis 11. 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 Increased markings in both lung bases. This may represent either atelectasis and/or early infiltrate. Electronically Signed: Jr Desai MD at 15:08 EST Tel [phone], Service support , Pelvis X-Ray 05/03/18 12:49 IMPRESSION: No acute abnormality is seen. Electronically Signed: Jr Desai MD at 15:09 EST Tel [phone], Service support , Operations: None Procedures: None Summary of Care Provided: The patient is a 78 year old M admitted 05/03/2018 due to cough, shortness of breath. 1. Sepsis secondary to healthcare associated pneumonia and COPD exacerbation as a result of human metaphneumo virus- (tachycardia, tachypnea, leukocytosis on admission) Lactic acid within normal limits. 2. Suspected healthcare associated pneumonia-chest x-ray on admission with increased markings in both lung bases, possible early infiltrate. Patient initiated on IV Zosyn and IV vancomycin in ER. Levaquin 750mg PO daily for a total of 7 days. Blood cultures negative. 3. COPD exacerbation secondary to human metaphneumo virus- IV Solu-Medrol during admission. DC on prednisone taper. Patient follows with Dr. Dobbins. Continue supplement oxygen to maintain O2 at or above 90%. Patient has upcoming outpatient appointment with Dr. Dobbins 05/13/2018. 4. Acute on chronic hypoxic respiratory failure, secondary to #1/#2-patient documented to be hypoxic on admission. Wears supplement oxygen at bedtime as needed. Continue supplement oxygen to maintain O2 at or above 90%. 5. History of vocal cord cancer status post radiation, currently in remission/benign esophageal stricture- Patient denies dysphagia. ST eval without s/sx of aspiration. 6. Iron deficiency anemia-recent transfusion [address] Aguillon, 04/12/18. Continue iron supplementation. 7. Former tobacco use-encouraged continued cessation. 8. Moderate to severe protein calorie malnutrition-Nutrition consult. BMI 16.7. Encouraged continued use of Ensure supplementation at discharge. 9. Chronic leukocytosis/chronic thrombocytosis-Follows with Dr. Aguillon. Stable, continue outpatient follow-up. 10. 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 11. Elevated creatinine-unclear etiology. Recommend repeat BMP this week by primary care physician. General: Alert, Oriented x3, Cooperative, Cachectic HEENT: Atraumatic, PERRLA, EOMI, Normocephalic Oral: Dry Mucosa Neck: Supple, No JVD, Negative Carotid Bruits Lungs: Diminished, Wheezes Cardiovascular: Regular rate, Regular Rhythm, Normal S1, Normal S2, No murmurs Abdomen: Bowel Sounds Present, Soft, Non Tender, Non-Distended Extremities: No clubbing, No cyanosis, No edema, Capillary Refill Less than 3 Seconds Skin: No rashes, No breakdown Musculoskeletal: No Tenderness to Palpation of Joints or Extremities Neurological: Cranial nerves II-XII grossly intact, Neuro grossly intact Psych/Mental Status: Normal Affect, Appropriate Patient seen and examined prior to discharge. Physical assessment as noted above. Patient is stable for discharge with follow up recommendations as noted above. This patient was seen by ZAN Burger under the supervision of Dr. Hazel. - Physical Exam Vital Signs Temp Pulse Resp BP Pulse Ox 97.8 F 81 20 H 126/71 H 93 05/05/18 09:39 05/05/18 09:39 05/05/18 10:59 05/05/18 09:39 05/05/18 09:39 Oxygen Flow Rate (L/min) 2.5 Oxygen Delivery Method Nasal Cannula Weight: 106 lb 0.677 oz Body Mass Index (BMI) 14.8 Intake and Output for Last 24 Hours Intake Total 240 / 240 5286 / 5286 994 / 994 Output Total 200 / 200 Balance 240 / 240 5086 / 5086 994 / 994 Microbiology Past 72 Hours 05/03/18 15:00 Blood Culture - Preliminary Blood Culture (Wb) #2 - Right Wrist No growth in 48 hours. 05/03/18 13:10 Blood Culture - Preliminary Laboratory Tests Past 24 Hrs WBC 18.0 H RBC 4.66 Hgb 10.5 L Hct 35.4 L MCV 76.0 L MCH 22.5 L MCHC 29.7 L RDW 25.3 H Discharge Diet: Low fat/ Low Cholesterol Discharge Activity: Return to Normal Activity Call your doctor if you observe: Fever of 101 or Higher, Shortness of breath, Dizziness, Fainting spells, Chest pain Home Medications: Medications to take at Discharge Albuterol Inhaler [Ventolin Hfa] 2 puff INHALATION Q6H PRN PRN 01/02/14 Allopurinol [Zyloprim] 300 mg PO DAILY 09/23/17 Fluticasone 110 Mcg [Flovent 110 Mcg] 1 puff INHALATION BID 09/23/17 Aspirin [Aspirin, Baby] 81 mg PO DAILY 05/03/18 Cholecalciferol (Vitamin D3) [Vitamin D3] 1,000 unit PO DAILY 05/03/18 Ondansetron [Ondansetron Odt] 4 mg PO Q4H PRN PRN 05/03/18 Oxycodone HCl 5 mg PO PRN PRN 05/03/18 Pantoprazole Sodium [Protonix] 20 mg PO DAILY 05/03/18 Prednisone See Taper PO DAILY #30 tablet 05/05/18 levoFLOXacin tablet [Levaquin tablet] 750 mg PO DAILY@0600 #5 tablet 05/05/18 Following Prescrptions Were Given to Patient: levoFLOXacin tablet [Levaquin tablet] 750 mg PO DAILY@0600 #5 tablet Prednisone See Taper PO DAILY #30 tablet Primary Care Physician: Varun Wang MD [Primary Care Provider] - Please follow up with your Primary Care Physician in: 1 Week Please Follow Up With: Garland Dobbins MD When: As scheduled, 05/13/18 Please Follow Up With: Maura Aguillon DO When: As scheduled Disposition: Home Minutes spent on discharge:: 35 Patient Condition:: Stable Medical Necessity - Tobacco Use Smoking Status: Former smoker Tobacco Use: Cigarettes Meaningful Use Info Meaningful Use Diagnoses (Choose all that apply): None applicable 05/05/18 1137 <Electronically signed by Dai ZULUAGA> Date Dai ZULUAGA Cosigner Signature (if applicable): Date CC: ZAN Romano; Keegan Hazel DO; Varun Wang MD Signed DISCHARGE INSTRUCTION Observed: 05/05/2018 Status: F Source: [place] 11:37 AM [facility] [place] [facility] Medical Records Department [address] [place] [address] Instructions for Home/Discharge Instructions 05/05/18 1120 MR#: [id number] Acct: [id number] Name: SABINA FLORES Rep #: [id number] : 1940 78 From: Dai ZULUAGA PCP: Varun Wang MD Status: ADM IN ADDENDUM by ZAN Romano on 05/05/18 at 1137 Follow up with PCP in 3-5 days. Recommend repeat BMP this week to re-assess kidney function. 05/05/18 1137 Date Dai Romano cc: Varun Wang MD * Signed You will use the following diet at home:: No restrictions Discharge Activity: Return to Normal Activity Call your doctor if you observe: Fever of 101 or Higher, Shortness of breath, Dizziness, Fainting spells, Chest pain Allergies/Adverse Reactions: Allergies doxycycline Adverse Reaction (Verified 05/03/18 15:25) PANCREATITIS Medications to take at Discharge Albuterol Inhaler [Ventolin Hfa] 2 puff INHALATION Q6H PRN PRN 01/02/14 Allopurinol [Zyloprim] 300 mg PO DAILY 09/23/17 Fluticasone 110 Mcg [Flovent 110 Mcg] 1 puff INHALATION BID 09/23/17 Aspirin [Aspirin, Baby] 81 mg PO DAILY 05/03/18 Cholecalciferol (Vitamin D3) [Vitamin D3] 1,000 unit PO DAILY 05/03/18 Ondansetron [Ondansetron Odt] 4 mg PO Q4H PRN PRN 05/03/18 Oxycodone HCl 5 mg PO PRN PRN 05/03/18 Pantoprazole Sodium [Protonix] 20 mg PO DAILY 05/03/18 Prednisone See Taper PO DAILY #30 tablet 05/05/18 levoFLOXacin tablet [Levaquin tablet] 750 mg PO DAILY@0600 #5 tablet 05/05/18 The following prescriptions were given: levoFLOXacin tablet [Levaquin tablet] 750 mg PO DAILY@0600 #5 tablet Prednisone See Taper PO DAILY #30 tablet Primary Care Physician: Varun Wang MD [Primary Care Provider] - Please follow up with your Primary Care Physician in: 1 Week Test Results: Test results from this visit will be discussed in further detail at your follow-up appointment, if applicable. Please Follow Up With: Garland Dobbins MD When: As scheduled, 05/13/18 Please Follow Up With: Maura Aguillon DO When: As scheduled Proposed Discharge Date: 05/05/18 05/05/18 1126 <Electronically signed by Dai BRADFORDC> Date Dai ZULUAGA CC: Varun Wang MD Signed CBC-COMPLETE BLOOD CNT Collected: 05/05/2018 Status: F Source: [place] NO DIFF 5:55 AM [facility] [place] TYPE CODE TESTS RESULT OUT OF RANGE REFERENCE UNITS LAB L100.1000 4.4-11.0 K/mm3 High WBC 18.0 LAB L100.1200 4.6-6.2 M/mm3 Normal RBC 4.66 LAB L100.1300 13.0-16.5 g/dl Low HGB 10.5 LAB L100.1400 40-54 % Low HCT 35.4 LAB L100.1500 80-94 fL Low MCV 76.0 LAB L100.1600 27.0-32.0 pg Low MCH 22.5 LAB L100.1700 32-36 g/gl Low MCHC 29.7 LAB L100.1810 11.6-14.6 % High RDW CV 25.3 LAB L100.1820 35.1-43.9 fl High RDW SD 67.0 LAB L100.1900 150-450 K/mm3 High PLT 488 LAB L100.2000 6.2-12.0 fl Normal MPV 9.8 Performed By: #### L100.0500, L100.4500 #### [facility] [address] [place], [place], [id number] DIFFERENTIAL COMMENT Collected: 05/05/2018 Status: F Source: [place] 5:55 AM [facility] [place] TYPE CODE TESTS RESULT OUT OF RANGE REFERENCE UNITS LAB L100.4500 Normal SMEAR COMMENT SCAN Result Comment: ANISOCYTOSIS 2+ MICROCYTOSIS 1+ HYPOCHROMIA 1+ POLYCHROMASIA 1+ Performed By: #### L100.0500, L100.4500 #### [facility] [address] [place], [address] BASIC METABOLIC Collected: 05/05/2018 Status: F Source: [place] PROFILE (BMP) 5:55 AM [facility] [place] TYPE CODE TESTS RESULT OUT OF RANGE REFERENCE UNITS LAB L501.0100 74-106 mg/dL High GLU 141 Result Comment: Fasting Glucose result greater than or equal to 126 mg/dL suggests DIABETES MELLITUS per A.D.A. criteria. Please note revised GLUCOSE reference range effective 2017. LAB L501.1000 7-18 mg/dL High BUN 23 LAB L501.1100 0.70-1.30 mg/dL High CREAT,SERUM 1.45 Result Comment: The validity of the calculated GFR AND GFRAA in patients over 70 years has not been determined. Clinical correlation is essential. LAB L501.1110 >60 mL/min Low EST GFR 50 Result Comment: Non- GFR Calc LAB L501.1115 >60 mL/min Normal EST GFR - AA 61 Result Comment: GFR Calc LAB L501.1255 ml/min Normal Estimated CRCL 28.57 LAB L501.1300 10-20 RATIO Normal BUN/CRE 15.9 LAB L501.2200 8.5-10 mg/dL Low .1 CA 7.3 LAB L501.5300 136-14 mmol/L Normal 5 NA 141 LAB L501.5600 3.5-5. mmol/L Normal 1 K 3.9 LAB L501.5900 98-107 mmol/L High CL 111 LAB L501.6100 21.0-3 mmol/L Normal 2.0 CO2 21.0 LAB L501.6200 5-15 Normal GAP 9 Performed By: #### L500.2500, L501.2300 #### [facility] [address] [place], [place], [address] PHOSPHORUS Collected: 05/05/2018 Status: F Source: [place] 5:55 AM [facility] [place] TYPE CODE TESTS RESULT OUT OF RANGE REFERENCE UNITS LAB L501.2300 2.5-4.9 mg/dL Normal PHOS 2.8 Performed By: #### L500.2500, L501.2300 #### [facility] [address] [place], [place], [address] CBC-COMPLETE BLOOD CNT Collected: 05/04/2018 Status: F Source: [place] NO DIFF 9:44 AM [facility] [place] TYPE CODE TESTS RESULT OUT OF RANGE REFERENCE UNITS LAB L100.1000 4.4-11.0 K/mm3 High WBC 26.8 LAB L100.1200 4.6-6.2 M/mm3 Normal RBC 5.21 LAB L100.1300 13.0-16.5 g/dl Low HGB 11.9 LAB L100.1400 40-54 % Low HCT 39.0 LAB L100.1500 80-94 fL Low MCV 74.9 LAB L100.1600 27.0-32.0 pg Low MCH 22.8 LAB L100.1700 32-36 g/gl Low MCHC 30.5 LAB L100.1810 11.6-14.6 % High RDW CV 25.2 LAB L100.1820 35.1-43.9 fl High RDW SD 66.6 LAB L100.1900 150-450 K/mm3 High PLT 605 LAB L100.2000 6.2-12.0 fl Normal MPV 8.9 Performed By: #### L100.0500, L100.4500 #### [facility] [address] [place], [place], [id number] DIFFERENTIAL COMMENT Collected: 05/04/2018 Status: F Source: [place] 9:44 AM [facility] [place] TYPE CODE TESTS RESULT OUT OF RANGE REFERENCE UNITS LAB L100.4500 Normal SMEAR COMMENT Result Comment: THROMOBOCYTOSIS ANISOCYTOSIS 1+ Performed By: #### L100.0500, L100.4500 #### [facility] [address] [facility]. [place], [place], [address] Observed: 05/04/2018 Status: F Source: [place] LEGIONELLA ANTIGEN 5:15 AM [facility] [place] Legionella, UR Legionella Antigen result interpretation: Negative Presumptive negative for Legionella pneumophila serogroup 1 antigen in urine, suggesting no recent or current infection. Legionella Ag, Urine Negative (See interpretation below) Performed By: #### M300.4500 #### [facility] [address] [facility] [place], [place], [id number] STREP Observed: 05/04/2018 Status: F Source: [place] PNEUMONIAE ANTIG(UR,CSF) 5:15 AM [facility] [place] S pneumo Ag URINE INTERPRETATION Negative Urine Presumptive negative for pneumococcal pneumonia, suggesting no current or recent pneumococcal infection. Infection due to S pneumoniae cannot be ruled out since the antigen present in the sample may be below the detection limit of the test. Strep pneumo Test Negative URINE (See interpretation below) Performed By: #### M300.4600 #### [facility] [address] [facility]. [place], [place], [id number] BLOOD GASES BY CPS Collected: 05/03/2018 Status: F Source: [place] 5:58 PM [facility] [place] TYPE CODE TESTS RESULT OUT OF RANGE REFERENCE UNITS LAB L9000.9990 Normal BLD GAS TYPE ART LAB L9001.1000 Normal SITE L Radial LAB L9001.1010 Normal SALONI TEST POS LAB L9001.1050 O2 Normal Delivery Dev Nasal Can LAB L9001.1055 /min Normal LPM 2.0 LAB L9001.1104 Normal Results To HOSP MD LAB L9001.1105 Normal Time Given 1745 LAB L9001.1110 7.35-7.45 High pH - I-STAT 7.47 LAB L9001.1210 35-45 mmHg Low pCO2 - ISTAT 27.6 LAB L9001.1310 75-100 mmHG Low PO2 I-STAT 73 LAB L9001.2300 22-26 mmol/L Low HCO3 ISTAT 20.2 LAB L9001.2400 -2 to +2 mmol/L Low BE ISTAT -3 LAB L9001.2415 mmol/L Normal TOTAL CO2 21 ISTAT LAB L9001.2425 95-99 % Normal SO2 ISTAT 96 Performed By: #### L9000.0800 #### [facility] Point of Care [address] [facility]. [place], [place] [id number] Observed: 05/03/2018 Status: F Source: [place] RESPIRATORY PANEL 5:45 PM [facility] [place] [facility] RP PANEL Normal Reference Range = Not Detected Copy of report sent to Infection Control Printer MS#[id number] 05/04/1814 RAMON. RESULTS CALLED TO YOSELYN LLANOS 05/04/18913 Consuelo Mahmood. REPORT READ BACK BY SAME. ADENOVIRUS Not Detected HUMAN METAPHNEUMO Positive for HUMAN METAPHNEUMO VIRUS by NAAT technology INFLUENZA A Not Detected INFLUENZA A (SUBTYPE H1) Not Detected INFLUENZA A (SUBTYPE H3) Not Detected INFLUENZA B Not Detected PARAINFLUENZA 1 Not Detected PARAINFLUENZA 2 Not Detected PARAINFLUENZA 3 Not Detected PARAINFLUENZA 4 Not Detected RHINOVIRUS Not Detected RSV A Not Detected RSV B Not Detected NAAT METHOD Testing was performed using nucleic acid amplification ORGANISM 1: HUMAN META Performed By: #### M100.638 #### [facility] [address] [place], [address] PHOSPHORUS Collected: 05/03/2018 Status: F Source: [place] 4:21 PM [facility] [place] TYPE CODE TESTS RESULT OUT OF RANGE REFERENCE UNITS LAB L501.2300 2.5-4.9 mg/dL Low PHOS 1.4 Performed By: #### L501.2300, L501.5200 #### [facility] [address] [facility] [place] [place], [address] MAGNESIUM Collected: 05/03/2018 Status: F Source: [place] 4:21 PM [facility] [place] TYPE CODE TESTS RESULT OUT OF RANGE REFERENCE UNITS LAB L501.5200 1.6-2.6 mg/dL Normal MG 2.3 Performed By: #### L501.2300, L501.5200 #### [facility] [place], [address] HISTORY AND PHYSICAL Observed: 05/03/2018 Status: F Source: [place] EXAM 4:02 PM [facility] [place] [facility] Medical Records Department [address] [place] [id number] History and Physical 05/03/18 1535 MR#: [id number] Acct: [id number] Name: SABINA FLORES Rep #: [id number] : 1940 78 From: Dai BRADFORDC PCP: Varun Wang MD Status: ADM IN Y [id number] ADDENDUM by Tomasa Chris on 05/03/18 at 1602 Code Visit ATTENDING PHYSICIAN NOTE: I have seen and examined the patient independently and agree with the assessment, plan, history per Dai Romano as noted. Chief Complaint: Cough, increased sputum, dyspnea. 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 Work-up in the ED included T 98.2, heart rate 120, respiratory rate 30, 88% on 3 L nasal cannula--> falling therapies and hydration heart rate 112, BP 112/69, respiratory rate 26, 94% on 3 L, CBC with WBC 26.9, hemoglobin 14.9, platelet 1140 with left shift, BMP with glucose 120, lactic acid 1.4, troponin <0.015, chest x-ray with hyperinflat ion with increased markings in both lung bases possibly atelectasis versus early infiltrate, secondary to left hip discomfort pelvis plain film obtained which was noted to be unremarkable. In the ED patient was ministered Vanco, Zosyn, [place], albuterol, Solu-Medrol, normal saline. Labs, Allergies, Home medications, Social Hx, PSurgHx, Family Hx per note below. Admission Review of Systems: CONSTITUTIONAL: No weight loss, fever, chills, + weakness or fatigue. HEENT: Eyes: No visual loss, blurred vision, double vision or yellow sclerae. Ears, Nose, Throat: No hearing loss, sneezing, congestion, runny nose or sore throat. SKIN: No rash or itching, lesions, wounds. CARDIOVASCULAR: No chest pain, chest pressure or chest discomfort, palpitations, edema, orthopnea, syncopal events. RESPIRATORY: + shortness of breath, cough or sputum, wheezing, hemoptysis. GASTROINTESTINAL: + anorexia, nausea, vomiting or diarrhea, No abdominal pain, melena, BRBPR. GENITOURINARY: No dysuria, frequency, urgency or retention. NEUROLOGICAL: No headache, dizziness, syncope, paralysis, ataxia, numbness or tingling in the extremities, focal weakness, change in bowel or bladder control, seizure. MUSCULOSKELETAL: + muscle, back pain, joint pain or stiffness. HEMATOLOGIC: + anemia, bleeding or bruising. LYMPHATICS: No enlarged nodes. No history of splenectomy. PSYCHIATRIC: No history of depression or anxiety. ENDOCRINOLOGIC: No reports of sweating, cold or heat intolerance. No polyuria or polydipsia. ALLERGIES: No history of asthma, hives, eczema or rhinitis. Admission VS: As noted below. Physical Examination: General: awake, alert, oriented x 3 and cooperative, seated upright in the ED bed, still mildly increased RR, some accessory muscle usage, improved from initial. Skin: normal color, turgor, no icterus, cyanosis except occasional extremity ecchymoses, various staged. HEENT: AT/NC, EOMI, PERRLA, mildly dry MM, no evidence carotid bruit or JVD. Lungs: Diminished BS throughout, > bases, increased RR, accessory muscle usage, currently no wheezing. Heart: Tachycardic with regular rhythm; no gallop, rub audible. Abdomen: soft, cachetic appearing, NTTP, ND, normal BS. Extremities: no cyanosis, clubbing, or edema. Neurological: patient awake, alert, oriented x 3; cognitive function intact; pupils equally reactive to light and accomodation; cranial nerves II-XII grossly normal, moving all 4 extremities, no focal deficits, strength severely globally decreased. Psychiatric: affect appears flat, fatigued, no acute evidence of depressive or anxiety feelings. 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 (1) Acute Sepsis secondary to Acute Hypoxic Respiratory Failure on Chronic secondary to Suspected HCAP w/ Acute on Chronic COPD Exacerbation: Work- up in the ED included T 98.2, heart rate 120, respiratory rate 30, 88% on 3 L nasal cannula--> falling therapies and hydration heart rate 112, BP 112/69, respiratory rate 26, 94% on 3 L, CBC with WBC 26.9, hemoglobin 14.9, platelet 1140 with left shift, BMP with glucose 120, lactic acid 1.4, troponin <0.015, chest x-ray with hyperinflation with increased markings in both lung bases possibly atelectasis versus early infiltrate, secondary to left hip discomfort pelvis plain film obtained which was noted to be unremarkable. Will admit to PCU, maintain on oxygen with wean as tolerated to room air, continue ATC duonebs, PRN albuterol, maintained on IV Zosyn and Vancomycin given recent admission for GI bleed in 02/2018, HOB, IS parameters w/ pending sputum cultures, respiratory viral panel and urine antigens. Bld cx x 2 obtained in the ED. If ongoing increased work of breathing as discussed with patient would obtain ABG and consider BIPAP, notes disliked in the past but would be willing to trial. (2) Severe Protein-Calorie Malnutrition: Evidenced per body habitus, BMP, muscle and fat loss, nutrition consulted. (3) Chronic Thrombocytosis, Leukocytosis, Microcytic Anemia: Admission CBC w/ WBC 26.9, hemoglobin 14.9, platelet 1140 with left shift, noted recent 04/12/[address] Aguillon. Repeat CBC, stable appearing currently compared to prior. Hgb improved after PRBC administration. Additional Co-morbidities: Tobacco Abuse, History of: Encouraged continued cessation. History of Throat/Vocal Cord CA: s/p resection, s/p radiation. History of Esophageal Strictures: Required dilation prior, chronic dysphagia, prior Speech evaluation not marked, recent 02/2018 dilation with GI bleed following, [facility] transfer from [facility] at that time, EGD w/ unclear interventions, now resolved. CODE status: Discussed CODE status at length including difference between FULL code, DNR-CCA and DNR-CC status. Following discussions about the differences in these status, will remain full code status as unsure what he would like and will discuss this with his family who was present for the discussion also. Noted to him given his habitus and disease history the outcome from CPR would likely not be successful and his body would suffer great trauma. Advanced Care Planning Face to Face Time: 18 minutes. 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 care current use of anticoagulant Status: Chronic (4) Gout Status: Chronic Comment: gouty mass dorsal radial aspect PIP joint left index finger (5) Chronic respiratory failure with hypoxia Status: Chronic (6) Iron deficiency anemia Status: Chronic (7) Hyperuricemia Status: Chronic (8) Sepsis Status: Acute (9) Former smoker Status: Chronic (10) Benign esophageal stricture Status: Chronic (11) Malnutrition of moderate degree Status: Chronic (12) Leukocytosis Status: Chronic (13) Dysphagia Status: Chronic Qualifiers: (14) Hypersomnia Status: Chronic (15) COPD (chronic obstructive pulmonary disease) Status: Chronic Qualifiers: Comment: FEV1 51% (16) History of peptic ulcer disease Status: Chronic History of Present Illness Date of Admission: 05/03/18 Chief Complaint: Cough, shortness of breath. The patient is a 78 year old M who presents to the Emergency Room due to cough, shortness of breath. Patient states he developed a cough shortly after [place] which has been productive with white/krueger sputum. He denies fever, chills. He has had associated shortness of breath. Patient reports poor oral intake and nausea. He had multiple episodes of emesis overnight. Complains of generalized weakness. Denies abdominal pain. Patient reports he did have diarrhea a few days ago which has since resolved. Denies blood in stool. Denies chest pain. He has a past medical history of COPD, vocal cord cancer status post radiation currently in remission, chronic hypoxic respiratory failure, former tobacco use, moderate to severe protein calorie malnutrition, chronic leukocytosis, chronic thrombocytosis, benign esophageal stricture, pill induced esophagitis, partial gastrectomy due to bleeding peptic ulcer approximately 15 years ago, iron deficiency anemia. 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9 FEV1 51% Atypical chest pain (Chronic) R07.89 History of peptic ulcer disease (Chronic) Z87.11 Adenomatous colon polyp D12.6 Gout M10.9 History of cataract Z86.69 Hypoxemia R09.02 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 Pancreatitis K85.90 Polycythemia D75.1 Protein calorie malnutrition E46 Thrombocytosis D47.3 Chronic back pain M54.9, G89.29 Iron deficiency anemia D50.9 Stage 2 moderate COPD by GOLD classification J44.9 Tobacco use Z72.0 Elevated LFTs (Resolved) R79.89 Pneumonia (Resolved) J18.9 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 Allergies doxycycline Adverse Reaction (Verified 05/03/18 15:25) PANCREATITIS Home Medications: Ambulatory Orders Medication Instructions Recorded Albuterol Inhaler [Ventolin Hfa] 2 puff INHALATION Q6H PRN PRN 01/02/14 Allopurinol [Zyloprim] 300 mg PO DAILY 09/23/17 Surgical History: Surgical History (Last Reviewed 01/04/19 @ 15:44 by ZAN Burger) Esophageal dilatation K22.8 2004 Floor of mouth resection, sialadochoplasty 2017 H/O colonoscopy Z98.890 2015, 2012, 2003 History of esophagogastroduodenoscopy (EGD) Z98.890 2012 2003 History of laryngoscopy Z98.890 2013 S/P partial gastrectomy Z90.3 1970 Psychiatric History: No pertinent psych hx Lives: Spouse/ Significant Other Smoking Status: Former smoker Alcohol: Occasional Drugs: None - *Family History Maternal Family History: Family History (Last Reviewed 05/03/18 @ 15:45 by ZAN Burger) Brother Brain cancer Bone cancer Brain tumor Father CAD (coronary artery disease) Heart disease History Items: - - No cardiac hx Paternal Family History: Family History (Last Reviewed 05/03/18 @ 15:45 by ZAN Burger) Brother Brain cancer Bone cancer Brain tumor Father CAD (coronary artery disease) Heart disease Review of Systems Constitutional: Reports: Weakness, Fatigue, - - Poor appetite/oral intake. Denies: Chills, Fever HEENT: Denies: Difficulty Swallowing, Head Aches, Sinus Congestion, Sinus Drainage, Sore Throat Cardiovascular: Denies: Chest Pain, Edema, Light Headedness, Palpitations, Syncope Respiratory: Reports: Cough, Shortness of Breath, Sputum production. Denies: Wheezing Gastrointestinal: Reports: Diarrhea - Resolved, Nausea, Vomiting. Denies: Abdominal Pain Genitourinary: Denies: Dysuria Musculoskeletal: Denies: Joint Pain, Joint Tenderness Skin: Denies: Rash, Wounds Neurological: Denies: Numbness, Tingling, Focal weakness Psychiatric: Denies: Anxiety, Depression, Homicidal Ideations, Suicidal Ideations Hematologic/ Lymphatic: Denies: Easy Bruising, Easy Bleeding VTE Information - Inpt Only VTE Present on Admission: No VTE Mechan Device Prophylaxis: None VTE Pharm Prophylaxis ordered?: Yes - Physical Exam General: Alert, Oriented x3, Cooperative, - - Cachectic HEENT: Atraumatic, PERRLA, EOMI, Normocephalic Oral: Dry Mucosa Neck: Supple, No JVD, Negative Carotid Bruits Lungs: Diminished, Wheezes Cardiovascular: Regular Rhythm, Normal S1, Normal S2, No murmurs, Tachycardic Abdomen: Bowel Sounds Present, Soft, Non Tender, Non-Distended Extremities: No clubbing, No cyanosis, No edema, Capillary Refill Less than 3 Seconds Skin: No rashes, No breakdown Musculoskeletal: No Tenderness to Palpation of Joints or Extremities, Cachexia, Muscle Wasting Neurological: Cranial nerves II-XII grossly intact, Neuro grossly intact Psych/Mental Status: Normal Affect, Appropriate Vital Signs Temp Pulse Resp BP Pulse Ox 98.2 F 112 H 29 H 112/69 96 05/03/18 12:42 05/03/18 15:23 05/03/18 15:23 05/03/18 15:23 05/03/18 15:23 Oxygen Flow Rate (L/min) 3 Oxygen Delivery Method Nasal Cannula Weight: 120 lb Body Mass Index (BMI) 16.7 Microbiology Past 72 Hours 05/03/18 13:10 Influenza Types A,B Direct FA (NOEMI) - Final Mucosa - Nasopharyngeal Laboratory Tests Past 24 Hrs WBC 26.9 H RBC 6.70 H Hgb 14.9 Hct 51.0 Assessment/Plan All Active Problems (Last Reviewed 03/04/18 @ 07:47 by Dary Thomas) Sepsis (Acute) JULIANA (acute kidney injury) (Resolved) Elevated LFTs (Resolved) Foreign body in esophagus (Resolved) Neoplasm of unspecified behavior of bone, soft tissue, and skin (Resolved) Osteomyelitis of finger of left hand (Resolved) Pneumonia (Resolved) 1. Sepsis secondary to healthcare associated pneumonia and COPD exacerbation- (tachycardia, tachypnea, leukocytosis) Lactic acid within normal limits. 2. Healthcare associated pneumonia-chest x-ray on admission with increased markings in both lung bases, possible early infiltrate. Patient initiated on IV Zosyn and IV vancomycin in ER, continue. Albuterol DuoNeb aerosols. Send sputum for culture. Mucinex 1200 mg p.o. twice daily. 3. COPD exacerbation-albuterol DuoNeb aerosols. IV Solu- Medrol. Patient follows with Dr. Dobbins. 4. Acute on chronic hypoxic respiratory failure, secondary to #1/#2-patient documented to be hypoxic on admission. Wears supplement oxygen at bedtime as needed. Continue supplement oxygen to maintain O2 at or above 90%. 5. History of vocal cord cancer status post radiation, currently in remission/benign esophageal stricture- ST consult. Patient denies dysphagia. 6. Iron deficiency anemia-recent transfusion [address] Aguillon, 04/12/18. Continue iron supplementation. Trend CBC. 7. Former tobacco use-encouraged continued cessation. 8. Moderate to severe protein calorie malnutrition-Nutrition consult. BMI 16.7. 9. Chronic leukocytosis/chronic thrombocytosis-Follows with Dr. Aguillon. Stable. 10. 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 DVT prophylaxis-lovenox sc. This patient was seen by ZAN Burger under the supervision of Dr. Chris. 05/03/18 1600 <Electronically signed by Dai BRADFORDC> Date Dai ZULUAGA 05/03/18 1600<Electronically signed by Tomasa Chris > Cosigner Signature: Date (if applicable) Tomasa Chris CC: ZAN Romano; Tomasa Chris; Varun Wang MD Signed EMERGENCY DEPARTMENT Observed: 05/03/2018 Status: F Source: [place] SUMMARY 3:23 PM [facility] [place] Medical Records Department [address] [facility] [place] [address] Emergency Department Summary 05/03/18 1249 MR#: [id number] Acct: [id number] Name: SABINA FLORES Rep #: [id number] : 1940 78 From: Terrance Holland MD PCP: Varun Wang MD Status: REG ER - ER Visit Summary Date of Service: 05/03/18 Chief Complaint: Shortness of breath, cough History of Present Illness: The patient is a 78 M who has had shortness of breath and cough. Is been ongoing for a couple of weeks. Shortness of breath is worse with exertion. His cough is productive of a dark sputum. He denies fevers or chest pain. He is a former smoker. He does have a diagnosis of COPD. He wears oxygen only at night. He also complains of a headache and as well as left hip pain. He denies any falls. He states he was admitted to the hospital for pneumonia about 3 months ago. Physical Examination: Vital signs are reviewed. HEENT exam unremarkable. Heart is tachycardic and regular rhythm without murmurs. Lungs have wheezing in the bilateral lower lung michaels. Abdomen soft and nontender. Extremities reveal no edema. He does have tenderness in the posterior left iliac area. Neurologic exam normal. Test Results: Chest x-ray reveals chronic changes possible early infiltrates. Pelvis x-ray unremarkable. His EKG is sinus rhythm with a PVC. Nonspecific ST and T wave changes. Blood cell count 26.9. Platelet 1140. Troponin normal. Lactate 1.4 Emergency Department Course and Treatment: Patient meets sepsis criteria. His white count and platelet count are also chronically elevated. However, due to his vital signs and his lung sounds I will treat him for HCAP With vancomycin and Zosyn. He was admitted to the hospital in February. Patient will be admitted to the hospital. Treatment Plan: [] Disposition: Admit Impression: Healthcare associated pneumonia, sepsis This note was generated with [employer] dictation software. It may contain incorrect words, spelling, and punctuation that were not noted in review of the chart prior to signing ED Disposition - Plan for ED Patient: Chief Complaint: Shortness of Breath Referrals: Varun Wang MD [Primary Care Provider] - What to do if you have Problems For any increased pain, shortness of breath, bleeding, nausea or vomiting, chest pain, or any unexpected problems, contact your Primary Care Provider. Call [facility] ([phone]) or report to the closest Emergency Room. Call 911 if necessary. 05/03/18 1523 <Electronically signed by Terrance Holland MD> Date Terrance Holland MD Cosigner Signature (If Indicated): Date CC: Varun Wang MD Observed: 05/03/2018 Status: F Source: [place] CULTURE, BLOOD (WB) 3:00 PM [facility] [place] BC No growth in 5 days. Performed By: #### M200.1000 #### [facility] [address] [place], [address] LACTIC ACID Collected: 05/03/2018 Status: F Source: [place] 1:10 PM [facility] [place] Order Comment: Yes/No query for Sepsis Lactate Rule Y TYPE CODE TESTS RESULT OUT OF RANGE REFERENCE UNITS LAB L503.6005 0.4-2.0 mmol/L Normal LACTIC ACID 1.4 Performed By: #### L503.6005 #### [facility] [address] [place], [address] Observed: 05/03/2018 Status: F Source: [place] INFLUENZA A+B (RAPID 1:10 PM [facility] [place] [place] REPOSITORY Order Date: 05/03/18 FLU A/B Rapid Negative test results should be confirmed with FLU PANEL MOLECULAR if indicated. Influenza Ag, Direct Presumptive NEGATIVE for Influenza A/B Antigen (See Note) Performed By: #### M101.0101 #### [facility] [address] [place], [address] Observed: 05/03/2018 Status: F Source: [place] CULTURE, BLOOD (WB) 1:10 PM [facility] BC No growth in 5 days. Performed By: #### M200.1000 #### [facility] [address] [place], [address] BASIC METABOLIC Collected: 05/03/2018 Status: F Source: [place] PROFILE (BMP) 1:05 PM [facility] [place] TYPE CODE TESTS RESULT OUT OF RANGE REFERENCE UNITS LAB L501.0100 74-106 mg/dL High GLU 120 Result Comment: Fasting Glucose result from 100 to 125 mg/dL suggests IMPAIRED HOMEOSTASIS per A.D.A. criteria. Please note revised GLUCOSE reference range effective 2017. LAB L501.1000 7-18 mg/dL Normal BUN 15 LAB L501.1100 0.70-1.30 mg/dL Normal CREAT,SERUM 1.10 Result Comment: The validity of the calculated GFR AND GFRAA in patients over 70 years has not been determined. Clinical correlation is essential. LAB L501.1110 >60 mL/min Normal EST GFR 69 Result Comment: Non- GFR Calc LAB L501.1115 >60 mL/min Normal EST GFR - AA 83 Result Comment: GFR Calc LAB L501.1255 ml/min Normal Estimated CRCL 42.61 LAB L501.1300 10-20 RATIO Normal BUN/CRE 13.6 LAB L501.2200 8.5-10 mg/dL Normal .1 CA 9.2 LAB L501.5300 136-14 mmol/L Normal 5 NA 141 LAB L501.5600 3.5-5. mmol/L Normal 1 K 4.1 LAB L501.5900 98-107 mmol/L Normal CL 102 LAB L501.6100 21.0-3 mmol/L Normal 2.0 CO2 27.0 LAB L501.6200 5-15 Normal GAP 12 Performed By: #### L500.2500, L501.4010 #### [facility] [address] [facility]. [place], [place], [address] TROPONIN-I Collected: 05/03/2018 Status: F Source: [place] 1:05 [facility] REPOSITORY TYPE CODE TESTS RESULT OUT OF RANGE REFERENCE UNITS LAB L501.4010 <0.045 ng/mL Normal < 0.015 TROPONIN-I Result Comment: TROPONIN-I EXPECTED VALUES <0.045 Negative 0.045 - 0.590 Consistent with Cardiac Damage > OR = 0.600 Critical Value Not every elevated troponin is indicative of IL. These values should be used with clinical judgement in examining the patient's clinical picture for diagnosis. To establish a diagnosis of IL versus myocardial injury, there must be a demonstrated rise and/or fall in the troponin values, in addition to ischemic symptoms, EKG changes, new regional wall motion abnormality, and/or angiographical evidence. PLEASE NOTE: REFERENCE RANGES EDITED 17 Performed By: #### L500.2500, L501.4010 #### [facility] [address] [place], [place], [address] CBC W/DIFF, AUTOMATED Collected: 05/03/2018 Status: C Source: [place] 1:05 PM [facility] [place] TYPE CODE TESTS RESULT OUT OF RANGE REFERENCE UNITS LAB L100.1000 4.4-11.0 K/mm3 High WBC 26.9 LAB L100.1200 4.6-6.2 M/mm3 High RBC 6.70 LAB L100.1300 13.0-16.5 g/dl Normal HGB 14.9 LAB L100.1400 40-54 % Normal HCT 51.0 LAB L100.1500 80-94 fL Low MCV 76.1 LAB L100.1600 27.0-32.0 pg Low MCH 22.2 LAB L100.1700 32-36 g/gl Low MCHC 29.2 LAB L100.1810 11.6-14.6 % High RDW CV 24.6 LAB L100.1820 35.1-43.9 fl High RDW SD 66.6 LAB L100.1900 150-450 K/mm3 High alert PLT 1140 Result Comment: CRITICAL VALUE VERIFIED. CALLED TO CARMELA RODRIGUEZ 05/03/18 1342 Peter Shoemaker. RESULTS READ BACK BY SAME. LAB L100.2000 6.2-12.0 fl Normal MPV 8.8 LAB L100.2100 47-70 % High NEUT% 89.5 LAB L100.2200 19-41 % Low LY% 1.8 LAB L100.2300 0-10 % Normal MONO% 6.0 LAB L100.2400 0-5 % Normal EO% 1.3 LAB L100.2500 0-1 % Normal BASO% 0.7 LAB L100.2550 0.0-0.9 % Normal IM GRAN % 0.700 Result Comment: IG% - Immature Granulocytes (promyelocytes, myelocytes and metamyelocytes) > 1% indicates that a LEFT SHIFT is Present. LAB L100.2620 2.0-7.7 X10 3/uL High Absolute Neut 24.0 LAB L100.2720 0.83-4.51 X10 3/ul Low Absolute Lymph 0.48 LAB L100.4500 Normal SMEAR COMMENT COMMENT Result Comment: SLIDE SCANNED - NEUTROPHILIA,LYMPHOPENIA, MONOCYTOSIS, THROMBOCYTOSIS, 1+ ANISO. LAB L100.9900 Normal Reviewed PATH REV Result Comment: Marked Neutrophilic leukocytosis with occasional hypersegmented forms. Marked Thrombocytosis consistent with proliferative disorder. Clinical correlation necessary. Vahe Person D.O. 05/06/18 AMENDED REPORT 05/06/18 1136 PATH REV previously reported as: August Performed By: #### L100.0100 #### [facility] [address] [place], [address] BNP,B-TYPE NATRIURETIC Collected: 05/03/2018 Status: F Source: [place] PEPTIDE 1:05 PM [facility] [place] TYPE CODE TESTS RESULT OUT OF RANGE REFERENCE UNITS LAB L503.6620 0-100 pg/mL Normal B-TYPE 90.7 JOHANA PEP Performed By: #### L503.6620 #### [facility] [address] [place], [address] CHEST 1 VIEW Observed: 05/03/2018 Status: F Source: [place] (PORTABLE) 12:49 PM [facility] [place] Imaging Services [address] [facility] [place] [address] Chest 1 View (Portable) MR#: [id number] Acct: [id number] Name: SABINA FLORES Rep #: [id number] : 1940 M 78 From: Jr Desai MD PCP: Varun Wang MD Status: REG ER Study: Chest 1 View (Portable) Date of Exam: 05/03/18 Exam# [id number] Ordering Dr: Terrance Holland MD STUDY: X-RAY CHEST REASON FOR EXAM: Male, 78 years old. COPD. Shortness of breath. TECHNIQUE: Single AP portable view of the chest. COMPARISON: Comparison is made with prior examination dated March 04, 2018. FINDINGS: EKG electrodes are seen. Hyperinflation. There now is evidence of increased markings in the medial aspects of both lung bases suggestive of atelectasis and/or early infiltrates. Follow-up is recommended. There is no demonstrated pleural abnormality. Normal size heart. Normal mediastinum and malia. There is prominence of the pulmonary hilar arteries without peripheral pulmonary vascular congestion, suggesting pulmonary hypertension. There is atherosclerotic tortuosity of the aortic arch and descending thoracic aorta. Normal visualized thoracic spine. Normal visualized ribs, clavicles, and shoulders. There is no demonstrated abnormality of the visualized soft tissue structures of the upper abdomen. RAD/Chest 1 View (Portable) IMPRESSION: Hyperinflation. Increased markings in both lung bases. This may represent either atelectasis and/or early infiltrate. Electronically Signed: Jr Desai MD at 15:08 EST Tel [phone], Service support , CC: Terrance Holland MD; Varun Wang MD Lining Scrubber: Signed PELVIS 1 OR 2 VIEWS Observed: 05/03/2018 Status: F Source: [place] 12:49 PM [facility] Imaging Services [address] [place] [address] Pelvis 1 or 2 Views MR#: [id number] Acct: [id number] Name: SABINA FLORES Rep #: [id number] : 1940 78 From: Jr Desai MD PCP: Varun Wang MD Status: REG ER Study: Pelvis 1 or 2 Views Date of Exam: 05/03/18 Exam# [id number] Ordering Dr: Terrance Holland MD STUDY: X-RAY - PELVIS REASON FOR EXAM: Male, 78 years old. Pelvic pain. Left hip pain. TECHNIQUE: One view of the pelvis was obtained. COMPARISON: Comparison is made with prior study dated November 21, 2015. FINDINGS: Gas-filled small bowel loops. Normal visualized soft tissue structures. Normal bilateral iliac wings, sacroiliac joints and visualized sacrum. Normal visualized bilateral superior and inferior pubic rami. Normal pubic symphysis. Normal ischial tuberosities. Normal visualized right femoral head. Normal right acetabulum. There is mild articular joint space narrowing of the right hip. Normal visualized left femoral head. Normal left acetabulum. There is mild articular joint space narrowing of the left hip. RAD/Pelvis 1 or 2 Views IMPRESSION: No acute abnormality is seen. Electronically Signed: Jr Desai MD at 15:09 EST Tel [phone], Service support , CC: Terrance Holland MD; Varun Wang MD Lining Scrubber: Signed [place] ABS GR + CBC Collected: 04/22/2018 Status: F Source: [place] 9:09 AM [facility] REPOSITORY TYPE CODE TESTS RESULT OUT OF REFERENCE UNITS RANGE LAB WWBC 3.70-11.00 k/uL [place] WBC 9.46 Result Comment: Result checked and verified No clot detected. LAB WRBC 4.20-6.00 m/uL [place] RBC 5.38 LAB WHGB 13.0-17.0 g/dL [place] Low Hemoglobin 11.2 LAB WHCT 39.0-51.0 % [place] Hematocrit 40.8 LAB WMCV 80.0-100.0 fL [place] MCV Low 75.8 LAB WMCH 26.0-34.0 pg [place] MCH Low 20.8 LAB WMCHC 30.5-36.0 g/dL [place] Low MCHC 27.5 LAB WRDW 11.5-15.0 % [place] RDW High 24.9 LAB WPLT 150-400 k/uL [place] Platelet Cnt 337 LAB WMPV 9.0-12.7 fL [place] MPV 9.8 Result Comment: Test performed at: [facility], [address] [place] [address]. LAB ABGRAN 1.45-7.50 k/uL 7.58 High Absol Gran Count LAB ABSNUC <0.01 k/uL Preliminary Absolute nRBC result. Interpret with caution. Final results may vary. Results requested and read back by: Result Comment: WBC=10.02,ANC=7.89 Performed By: #### WAGCBC #### [facility] Proenza Schouer [address] [place], [place] [address] [place] ABS GR + CBC Collected: 04/15/2018 Status: C Source: [place] 1:12 PM [facility] REPOSITORY TYPE CODE TESTS RESULT OUT OF REFERENCE UNITS RANGE LAB WWBC 3.70-11.00 k/uL High [place] WBC 13.57 Result Comment: Result rechecked. Sample checked for a clot. LAB WRBC 4.20-6.00 m/uL [place] RBC 4.52 LAB WHGB 13.0-17.0 g/dL [place] Low Hemoglobin 9.4 LAB WHCT 39.0-51.0 % [place] Low Hematocrit 34.6 LAB WMCV 80.0-100.0 fL [place] MCV Low 76.5 LAB WMCH 26.0-34.0 pg [place] MCH Low 20.8 LAB WMCHC 30.5-36.0 g/dL [place] Low MCHC 27.2 LAB WRDW 11.5-15.0 % [place] RDW High 22.4 LAB WPLT 150-400 k/uL [place] High Platelet Cnt 618 LAB WMPV 9.0-12.7 fL [place] MPV 9.5 Result Comment: Test performed at: [facility], [address] [place] [address] Rd[address] [place] [address]. LAB ABGRAN 1.45-7.50 k/uL High Absol 10.69 Gran Count Result Comment: Called to JACOBO S [phone] 12.18.18 1310 LR/LT Corrected on 04/16 AT 1418: Previously reported as 11.12 LAB ABSNUC <0.01 k/uL Preliminary Absolute nRBC result. Interpret with caution. Final results may vary. Results requested and read back by: Result Comment: WBC=13.95,RECHECKED 0.03 ABSNUC Performed By: #### WAGCBC #### [facility] [address] [place], [place] [address] TYPE AND SCREEN Collected: 04/11/2018 Status: F Source: [place] 1:20 PM [facility] [place] Order Comment: PRETRANSFUSION HGB = 8.2 HCT = 31.9 PERFORMED AT [facility] CMV NEG?* N Give When? 04/12 @0900 Irradiated? N Leukodepleted? Y Reason for Type AND Screen/Red Cells: ANEMIA TYPE CODE TESTS RESULT OUT OF RANGE REFERENCE UNITS LAB B10.0800 O Normal BLOOD TYPE GEL POSITIVE LAB B100.4000 Normal Antibody NEGATIVE Screen Performed By: #### B101.7450 #### [facility] [address] [place], [address] Collected: 04/11/2018 Status: F Source: [place] 1:20 PM [facility] [place] TYPE CODE TESTS RESULT OUT OF REFERENCE UNITS RANGE LAB U100.0000 [id number] TRANSFUSED PRODUCT: T AND S with Crossmatch, Red Cells COUNT: 2 Performed By: #### U100.0000 #### [facility] - refer to report for specific site [place] CBC AND DIFF Collected: 04/11/2018 Status: F Source: [place] 8:24 AM [facility] REPOSITORY TYPE CODE TESTS RESULT OUT OF REFERENCE UNITS RANGE LAB WWBC 3.70-11.00 k/uL [place] High WBC 22.26 LAB WRBC 4.20-6.00 m/uL [place] RBC 4.29 LAB WHGB 13.0-17.0 g/dL Low [place] Hemoglobin 8.2 LAB WHCT 39.0-51.0 % Low [place] Hematocrit 31.9 LAB WMCV 80.0-100.0 fL Low [place] MCV 74.4 LAB WMCH 26.0-34.0 pg Low [place] MCH 19.1 LAB WMCHC 30.5-36.0 g/dL Low [place] MCHC 25.7 LAB WRDW 11.5-15.0 % [place] High RDW 21.3 LAB WPLT 150-400 k/uL [place] High Platelet Cnt 1015 LAB WMPV 9.0-12.7 fL [place] MPV 9.3 Result Comment: Test performed at: [facility] [place], [address] [place] [address]. LAB CBCCOM PRELIMINARY WBC=22.22,ANC=17.60 Comment LAB WNEU % 85 [place] Neut% LAB WLYM % 7 [place] Lymp% LAB WEO % 6 [place] Eos% LAB WBAS % 2 [place] Baso% LAB WANEU 1.45-7 k/uL 18.92 .50 High [place] Abs Neut LAB WALYM 1.00-4 k/uL 1.56 .00 [place] Abs Lymp LAB WAEO <0.46 k/uL 1.34 High [place] Abs Eos LAB WABAS <0.11 k/uL 0.45 High [place] Abs Baso LAB WRBCM Slight [place] RBC Morph Result Comment: Polychromasia Anisocytosis LAB WPLTE [place] Platelet Platelet Est estimate increased Performed By: #### WCBCDF #### [facility] [address] [place], [place] [address] PROGRESS Observed: 04/05/2018 Status: COMPLETED Source: [place] 9:39 PM [facility] REPOSITORY HNO ID: [id number] Author: Yoselyn Lawler (Pa) Service: (none) Author Type: Physician Section Maintainer Type: Progress Notes Filed: 04/05/2018 9:51 PM Note Text: FOLLOW UP VISIT - ENDOSCOPY NAME: Sabina Olsen [facility] NO.: [id number] DATE OF SERVICE: 04/03/2018 : 1940 REFERRING PHYSICIAN: Varun Wang MD Sabina is a patient I am following with Dr. Lay for blood in stools post-dilation and history of colon polyps. Dr. Lay performed upper and lower endoscopy on 03/27/18. The patient was found to have a normal jejunum, patent Billroth I gastroduodenostomy, and normal esophagus. Colonoscopy showed large cecal polyps which was removed using injection-lift. Pathology demonstrated: Specimen originated from [facility] Specimen #: [id number] Submitting Physician: DORA LAY MD FINAL DIAGNOSIS 1. Stomach, body, biopsy (A) - Mild chronic inactive gastritis. - No morphologic evidence of H. pylori organisms. 2. Polyp, cecum, polypectomy (B) - Fragments of tubular adenoma. 3. Sigmoid colon, biopsy (C) - Colonic mucosa with no significant diagnostic abnormality. - No morphologic evidence of lymphocytic or collagenous colitis. SG/mago 03/28/2018 The patient notes no complaints since the procedure. He notes no dysphagia currently and notes no more blood in stools or dark stools at that time. VITALS: There were no vitals taken for this visit. On examination, the abdomen is benign. Assessment IMPRESSION: s/p EGD and colonoscopy with polypectomy using injection-lift. Recommend repeat colonoscopy in 2 years PLAN: The operative report was reviewed with the patient, and the patient had the opportunity to ask questions and have questions answered. If the patient notes any problems or changes in bowel function, the patient should contact me immediately. Otherwise I recommend follow up endoscopy in 2 years. 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 Yoselyn Lawler PA-C PROGRESS Observed: 04/05/2018 Status: COMPLETED Source: [place] 10:50 AM [facility] REPOSITORY [facility] ID: [id number] Author: Josie Munson Service: (none) Author Type: Physician Type: Progress Notes Filed: 04/08/2018 1:05 PM Note Text: [facility] [place] Jonathon Koehler Department of Cardiovascular Medicine SECTION OF VASCULAR MEDICINE OUTPATIENT VISIT DATE April 05, 2018 OUTPATIENT VISIT TYPE ESTABLISHED Follow up regarding: SMV thrombosis, MDS Allergies: is allergic to doxycycline. Medications: Current Outpatient Prescriptions: pantoprazole DR (PROTONIX) 40 mg tablet Take 1 tablet by mouth once daily. aspirin 81 mg chewable tablet Take 81 mg by mouth once daily. allopurinol (ZYLOPRIM) 300 mg tablet Take 1 tablet by mouth once daily. This can be crushed. hydroxyurea (HYDREA) 100 mg/mL oral liquid Take 5 mL by mouth once daily. Cholecalciferol, Vitamin D3, (VITAMIN D-3) 1,000 unit chew Take 1 tablet by mouth once daily. Chlorhexidine Gluconate (PERIDEX) 0.12 % solution Take 15 mL by mouth once daily. Swish for 30 seconds and then spit out. tiotropium-olodaterol (STIOLTO RESPIMAT) 2.5-2.5 mcg/actuation mist Inhale 2 Puffs as instructed once daily. No current facility-administered medications for this visit. Review of history: As below Subjective: As below Objective: BP 120/62 (BP Site: Right Arm, BP Position: Sitting, BP Cuff Size: Regular Adult) Pulse 86 Temp 36.3 ?C (97.3 ?F) (Oral) Ht 180.3 cm (5' 11) Wt 53.7 kg (118 lb 4.8 oz) SpO2 100% BMI 16.50 kg/m? Gen. 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 At that time his INR was 1.3 and reviewing his medications, he did not receive vitamin K. Repeat EGD March 06, 2018 reported long jejunal mucosal tear and upper third of the esophagus now healing without signs of active bleeding. Patient is very concerned regarding bleeding complication and he is apprehensive from anticoagulation. 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 I recommend long-term anticoagulation with warfarin with INR: 2-3, Lovenox is not an optimal option due to significant weight loss I discussed with patient that when patient had major bleeding his INR was 1.3, as for that, bleeding was not the complication of anticoagulation and more likely is a complication of the procedure itself especially the repeat EGD reporting healing mucosal tear. 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 Patient to continue following up with his produce service team member Josie Munson MD CNOV Observed: 04/05/2018 Status: COMPLETED Source: [facility] 10:15 AM [facility] REPOSITORY Office Visit (PERVMN) SABINA FLORES ([id number]) 1940 M Date Time Provider Department 04/05/18 10:15 AM JOSIE MUNSON PERVANIA During your visit today, we recorded the following information about you: Temperature Pulse Blood pressure Weight 97.3 degrees 86/minute 120/62 53.7 kg Height 1.803 m Josie Munson MD 04/08/2018 1:05 PM Signed [facility]oe[facility] Department of Cardiovascular Medicine SECTION OF VASCULAR MEDICINE OUTPATIENT VISIT DATE April 05, 2018 OUTPATIENT VISIT TYPE ESTABLISHED Follow up regarding: SMV thrombosis, MDS Allergies: is allergic to doxycycline. Medications: Current Outpatient Prescriptions: pantoprazole DR (PROTONIX) 40 mg tablet Take 1 tablet by mouth once daily. aspirin 81 mg chewable tablet Take 81 mg by mouth once daily. allopurinol (ZYLOPRIM) 300 mg tablet Take 1 tablet by mouth once daily. This can be crushed. hydroxyurea (HYDREA) 100 mg/mL oral liquid Take 5 mL by mouth once daily. Cholecalciferol, Vitamin D3, (VITAMIN D-3) 1,000 unit chew Take 1 tablet by mouth once daily. Chlorhexidine Gluconate (PERIDEX) 0.12 % solution Take 15 mL by mouth once daily. Swish for 30 seconds and then spit out. tiotropium-olodaterol (STIOLTO RESPIMAT) 2.5-2.5 mcg/actuation mist Inhale 2 Puffs as instructed once daily. No current facility-administered medications for this visit. Review of history: As below Subjective: As below Objective: BP 120/62 (BP Site: Right Arm, BP Position: Sitting, BP Cuff Size: Regular Adult) Pulse 86 Temp 36.3 ?C (97.3 ?F) (Oral) Ht 180.3 cm (5' 11) Wt 53.7 kg (118 lb 4.8 oz) SpO2 100% BMI 16.50 kg/m? Gen. 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 At that time his INR was 1.3 and reviewing his medications, he did not receive vitamin K. Repeat EGD March 06, 2018 reported long jejunal mucosal tear and upper third of the esophagus now healing without signs of active bleeding. Patient is very concerned regarding bleeding complication and he is apprehensive from anticoagulation. 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 I recommend long-term anticoagulation with warfarin with INR: 2-3, Lovenox is not an optimal option due to significant weight loss I discussed with patient that when patient had major bleeding his INR was 1.3, as for that, bleeding was not the complication of anticoagulation and more likely is a complication of the procedure itself especially the repeat EGD reporting healing mucosal tear. 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 Patient to continue following up with his produce service team member Josie Munson MD Referring Provider: JOSIE MUNSON [[id number]] Allergies As of Date: 04/05/2018 Noted Allergy Reaction DOXYCYCLINE 01/07/2018 14 - Other: See Comments Comments: pancreatitis Date Reviewed: 04/05/2018 Reviewed by: Yoselyn Lawler (Pa) - Fully Assessed Reason for Visit: Established Patient [175] Cmt: Acute SMV thrombosis 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 CHOLECALCIFEROL (VITAMIN D3) * Take 1 tablet by mouth once d* CHLORHEXIDINE GLUCONATE 0.12 * Take 15 mL by mouth once cristiana* TIOTROPIUM 2.5 MCG-OLODATEROL* Inhale 2 Puffs as instructed * Problem List As Of Date 04/05/2018 Noted Resolved Iron deficiency anemia [D50.9] INVALID FOR* Peptic ulcer, unspecified site, unspecified as *INVALID FOR*10/30/2011 Esophageal stricture [K22.2] INVALID FOR* Diverticulosis of large intestine without hemor*INVALID FOR*01/24/2018 Nonspecific abnormal results of liver function *INVALID FOR*03/31/2011 More... Personal history of alcoholism [F10.21] INVALID FOR*02/12/2014 Tobacco use disorder [F17.200] INVALID FOR*02/21/2016 Interstitial lung disease (HCC) [J84.9] INVALID FOR* Lung nodule [R91.1] INVALID FOR*04/14/2013 More... Asthma [J45.909] INVALID FOR* COPD (chronic obstructive pulmonary disease) (H*INVALID FOR* More... 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 Thrombocytosis (HCC) [D47.3] INVALID FOR* Elevated protime [R79.1] INVALID FOR*01/24/2018 Elevated bilirubin [R17] INVALID FOR* Shortness of breath [R06.02] INVALID FOR*09/22/2017 More... Body mass index (BMI) less than or equal to 19 *INVALID FOR* Malignant neoplasm of larynx (HCC) [C32.9] INVALID FOR* More... 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 Vitamin D deficiency [E55.9] INVALID FOR* Hypoalbuminemia [E88.09] INVALID FOR* Prolonged INR [R79.1] INVALID FOR*09/22/2017 More... 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 Essential hypertension [I10] INVALID FOR* Acute gout of multiple sites [M10.9] INVALID FOR* Gastrointestinal hemorrhage [K92.2] INVALID FOR* Hematemesis [K92.0] INVALID FOR* More... Acute blood loss anemia [D62] INVALID FOR* GI bleed [K92.2] INVALID FOR* More... Esophageal tear [S11.21XA] INVALID FOR* More... Medications Discontinued During This Encounter diltiazem CD (CARDIZEM CD) 120 mg 24* 180 * 1 01/01/2018 04/05/2018 Route: ORAL Sig: Take 1 capsule by mouth twice daily. Disc: Discontinued by another Health Care Provider warfarin (COUMADIN) 2.5 mg tablet 03/27/2018 04/05/2018 Class: Med Update Route: ORAL Sig: Take 1 tablet by mouth daily as directed. 2.5 mg / and 5 mg all other days Not taking Disc: Discontinued by another Health Care Provider Disposition: Return if symptoms worsen or fail to improve. Follow-up and Disposition History Recorded Encounter Status:Closed by JOSIE MUNSON on 04/08/18 ANJELICA Observed: 04/03/2018 Status: COMPLETED Source: [facility] 3:00 PM [facility] REPOSITORY Office Visit (GENSWS) SABINA FLORES ([id number]) 1940 M Date Time Provider Department 04/03/18 3:00 PM YOSELYN LAWLER) GENTENZINS During your visit today, we recorded the following information about you: Yoselyn Lawler PA-C 04/03/2018 3:16 PM Signed The following instructions are important for you related to your office visit today with the [facility]. INSTRUCTIONS FOLLOWING A POLYP FOUND AT COLONOSCOPY You were found to have an adenomatous colon polyp. I recommend you undergo repeat endoscopy in 2 years. If you note bleeding, change in bowel habits, or other suspicious colon related symptoms before that time, those symptoms should be evaluated as necessary. If you have any difficulties or concerns, you should contact our office immediately. and INSTRUCTIONS FOR PEPTIC ULCER DISEASE/GASTRITIS I discussed with you the findings of your upper endoscopy. Your upper endoscopy demonstrated signs of peptic ulcer disease or irritation. This can be seen as a range of issues from actual ulcers in the stomach or duodenum (first part of the small bowel) or irritation ranging from redness to more significant irritation with erosions of the stomach or duodenum. These conditions are usually caused from a combination of too much acid production or too little protective mucus production in the stomach. Factors that increase acid production include smoking and stress. If you smoke, stopping smoking will often cure these issues without needing other medications. Factors that decrease the stomach's production of protective mucus include alcohol consumption, smoking, aspirin and other anti-inflammatory use. Over the counter medications including antiacids and acid reducing medications including H2 blockers (Zantac and the like) and proton pump inhibitors (prilosec, prevacid and the like) neutralize or prevent acid production. Prescription strength proton pump inhibitors (PPIs) may be necessary if your symptoms persist. Carafate may be added to PPI treatment in refractory cases. Avoiding smoking, alcohol and antiinflammatory medications are important in the successful treatment of peptic diseases. New or worsening symptoms such are epigastric pain, burning, difficulty swallowing or food sticking should be relayed to your physician. Feeling full early after eating, or black, tarry, foul smelling stools are also worrisome. If you have any difficulties or concerns, you should contact our office immediately. If you note any additional difficulties, questions, or concerns, you should contact our office immediately @ [phone] and ask to be transferred to the General Surgery department. Yoselyn Lawler PA-C 04/05/2018 9:51 PM Signed FOLLOW UP VISIT - ENDOSCOPY NAME: Sabina Olsen [facility] CLINIC NO.: [id number] DATE OF SERVICE: 04/03/2018 : 1940 REFERRING PHYSICIAN: Varun Wang MD Sabina is a patient I am following with Dr. Lay for blood in stools post-dilation and history of colon polyps. Dr. Lay performed upper and lower endoscopy on 03/27/18. The patient was found to have a normal jejunum, patent Billroth I gastroduodenostomy, and normal esophagus. Colonoscopy showed large cecal polyps which was removed using injection-lift. Pathology demonstrated: Specimen originated from [facility] Specimen #: [id number] Submitting Physician: DORA LAY MD FINAL DIAGNOSIS 1. Stomach, body, biopsy (A) - Mild chronic inactive gastritis. - No morphologic evidence of H. pylori organisms. 2. Polyp, cecum, polypectomy (B) - Fragments of tubular adenoma. 3. Sigmoid colon, biopsy (C) - Colonic mucosa with no significant diagnostic abnormality. - No morphologic evidence of lymphocytic or collagenous colitis. SG/mago 03/28/2018 The patient notes no complaints since the procedure. He notes no dysphagia currently and notes no more blood in stools or dark stools at that time. VITALS: There were no vitals taken for this visit. On examination, the abdomen is benign. Assessment IMPRESSION: s/p EGD and colonoscopy with polypectomy using injection-lift. Recommend repeat colonoscopy in 2 years PLAN: The operative report was reviewed with the patient, and the patient had the opportunity to ask questions and have questions answered. If the patient notes any problems or changes in bowel function, the patient should contact me immediately. Otherwise I recommend follow up endoscopy in 2 years. 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 Yoselyn Lawler PA-C Referring Provider: VARUN WANG [[id number]] Allergies As of Date: 04/03/2018 Noted Allergy Reaction DOXYCYCLINE 01/07/2018 14 - Other: See Comments Comments: pancreatitis Date Reviewed: 04/03/2018 Reviewed by: Britni Major RN - Fully Assessed Reason for Visit: Post Op [174] Cmt: endo Primary Visit Diagnosis:Tubular adenoma [D36.9] Other Visit Diagnosis:Chronic superficial gastritis without bleeding [K29.30] Prescriptions as of 04/03/2018 Sig: X WARFARIN 2.5 MG TABLET Take 1 tablet by mouth daily * PANTOPRAZOLE 40 MG TABLET,DEL* Take 1 tablet by mouth once d* ASPIRIN 81 MG CHEWABLE TABLET Take 81 mg by mouth once cristiana* ALLOPURINOL 300 MG TABLET Take 1 tablet by mouth once d* HYDROXYUREA 100 MG/ML ORAL LI* Take 5 mL by mouth once daily. CHOLECALCIFEROL (VITAMIN D3) * Take 1 tablet by mouth once d* CHLORHEXIDINE GLUCONATE 0.12 * Take 15 mL by mouth once cristiana* TIOTROPIUM 2.5 MCG-OLODATEROL* Inhale 2 Puffs as instructed * X DILTIAZEM SR 120 MG 24 HR CAP Take 1 capsule by mouth twice* Problem List As Of Date 04/03/2018 Noted Resolved Iron deficiency anemia [D50.9] INVALID FOR* Peptic ulcer, unspecified site, unspecified as *INVALID FOR*10/30/2011 Esophageal stricture [K22.2] INVALID FOR* Diverticulosis of large intestine without hemor*INVALID FOR*01/24/2018 Nonspecific abnormal results of liver function *INVALID FOR*03/31/2011 More... Personal history of alcoholism [F10.21] INVALID FOR*02/12/2014 Tobacco use disorder [F17.200] INVALID FOR*02/21/2016 Interstitial lung disease (HCC) [J84.9] INVALID FOR* Lung nodule [R91.1] INVALID FOR*04/14/2013 More... Asthma [J45.909] INVALID FOR* COPD (chronic obstructive pulmonary disease) (H*INVALID FOR* More... 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 Thrombocytosis (HCC) [D47.3] INVALID FOR* Elevated protime [R79.1] INVALID FOR*01/24/2018 Elevated bilirubin [R17] INVALID FOR* Shortness of breath [R06.02] INVALID FOR*09/22/2017 More... Body mass index (BMI) less than or equal to 19 *INVALID FOR* Malignant neoplasm of larynx (HCC) [C32.9] INVALID FOR* More... 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 Vitamin D deficiency [E55.9] INVALID FOR* Hypoalbuminemia [E88.09] INVALID FOR* Prolonged INR [R79.1] INVALID FOR*09/22/2017 More... 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 Essential hypertension [I10] INVALID FOR* Acute gout of multiple sites [M10.9] INVALID FOR* Gastrointestinal hemorrhage [K92.2] INVALID FOR* Hematemesis [K92.0] INVALID FOR* More... Acute blood loss anemia [D62] INVALID FOR* GI bleed [K92.2] INVALID FOR* More... Esophageal tear [S11.21XA] INVALID FOR* More... Other instructions from your clinician: The following instructions are important for you related to your office visit today with the [facility]. INSTRUCTIONS FOLLOWING A POLYP FOUND AT COLONOSCOPY You were found to have an adenomatous colon polyp. I recommend you undergo repeat endoscopy in 2 years. If you note bleeding, change in bowel habits, or other suspicious colon related symptoms before that time, those symptoms should be evaluated as necessary. If you have any difficulties or concerns, you should contact our office immediately. and INSTRUCTIONS FOR PEPTIC ULCER DISEASE/GASTRITIS I discussed with you the findings of your upper endoscopy. Your upper endoscopy demonstrated signs of peptic ulcer disease or irritation. This can be seen as a range of issues from actual ulcers in the stomach or duodenum (first part of the small bowel) or irritation ranging from redness to more significant irritation with erosions of the stomach or duodenum. These conditions are usually caused from a combination of too much acid production or too little protective mucus production in the stomach. Factors that increase acid production include smoking and stress. If you smoke, stopping smoking will often cure these issues without needing other medications. Factors that decrease the stomach's production of protective mucus include alcohol consumption, smoking, aspirin and other anti-inflammatory use. Over the counter medications including antiacids and acid reducing medications including H2 blockers (Zantac and the like) and proton pump inhibitors (prilosec, prevacid and the like) neutralize or prevent acid production. Prescription strength proton pump inhibitors (PPIs) may be necessary if your symptoms persist. Carafate may be added to PPI treatment in refractory cases. Avoiding smoking, alcohol and antiinflammatory medications are important in the successful treatment of peptic diseases. New or worsening symptoms such are epigastric pain, burning, difficulty swallowing or food sticking should be relayed to your physician. Feeling full early after eating, or black, tarry, foul smelling stools are also worrisome. If you have any difficulties or concerns, you should contact our office immediately. If you note any additional difficulties, questions, or concerns, you should contact our office immediately @ [phone] and ask to be transferred to the General Surgery department. Follow-up and Disposition History Recorded Encounter Status:Closed by YOSELYN LAWLER PA-C on 04/05/18 CNCO Observed: 04/02/2018 Status: COMPLETED Source: [facility] 12:00 AM CLINIC OTHER CAMPUS REPOSITORY Letter Text April 02, 2018 Sabina Flores [address] [facility] [id number] Dear Mr. Flores, Thank you for choosing [facility] for your medical care. To help reduce healthcare costs, it is important for us to collect co-payments at the time of service. We are sorry we missed you when you were here on 03/27/2018. According to your insurance company, you are responsible for a co-payment of $100.00. Please mail your check or money order, payable to [facility] along with the stub below, in the enclosed envelope. If you would like to pay with your credit card, please call [phone] for assistance. Again, thank you for choosing [facility]. Sincerely, Linda Avalos Patient Front Desk Specialist Please detach and return in the enclosed envelope. Patient Name: Sabina Flores EMPI Number: [id number] Date of Service: 03/27/2018 Co-Pay Due: 100.00 Amount Enclosed: $ .__ Please make checks payable to [facility]. PROGRESS Observed: 03/28/2018 Status: COMPLETED Source: [facility] 11:44 AM [facility] [place] REPOSITORY O ID: [id number] Author: Ashley Limon Service: (none) Author Type: (none) Type: Progress Notes Filed: 03/28/2018 11:45 AM Note Text: Radiology Service Progress Note PATIENT NAME: Sabina Flores DATE OF SERVICE: March 28, 2018 TIME: 11:44 AM PATIENT IDENTITY VERIFICATION COMPLETED USING TWO (2) METHODS: Patient confirmed name verbally and Date of . PATIENT GENDER DATA: Male PATIENT RELEVANT IMPLANT DATA REVIEWED: Not Applicable CONTRAST INDUCED NEPHROPATHY RISK FACTORS: Patient age > 60 years CREATININE: Creatinine Date Value Ref Range Status 03/14/2018 0.81 0.73 - 1.22 mg/dL Final 03/09/2018 0.81 0.67 - 1.17 mg/dL Final 03/08/2018 0.86 0.67 - 1.17 mg/dL Final eGFR-All Other Races Date Value Ref Range Status 03/14/2018 >60 . Final Comment: eGFR (Estimated GFR) Units of measure: mL/min/1.73 meters squared eGFR is derived from the reexpressed MDRD Study equation using the following parameters: serum creatinine, age, gender and race. The creatinine assay has been calibrated to be traceable to IDMS. An eGFR <60 mL/min/1.73m2 for >3 months is consistent with chronic kidney disease. Refer to KDOQI guidelines for clinical interpretation. In patients with unstable renal function, e.g. those with acute kidney injury, the eGFR may not accurately reflect actual GFR. eGFR- Date Value Ref Range Status 03/14/2018 >60 Final P.O.C.T. RESULTS: POC done: Yes, See Lab Tab March 28, 2018 RADIOLOGIST NOTIFIED?: No ALLERGIES: Reviewed and unchanged CONTRAST ALLERGY: NO. PERIPHERAL IV ACCESS: Ambulatory: IV type: A peripheral IV was started in the Right antecubital site with a Angio cath: 22 gauge., Site assessment: Clean,Dry and Intact, Site disposition Discontinued RADIOLOGY DEPARTMENT: CT; Exam(s) Completed: Chest Abdomen Pelvis SIGNED BY: Ashley Romeo Ct March 28, 2018 11:[address] ABD/PEL W IVCON Observed: 03/28/2018 Status: F Source: [facility] 11:43 AM [facility] REPOSITORY * * *Final Report* * * DATE OF EXAM: Mar 28 2018 11:43AM [facility] 0530 - CT ABD/PEL W IVCON / PROCEDURE REASON: multiple diagnoses * * * * Physician Interpretation * * * * CT ABDOMEN AND PELVIS WITH IV CONTRAST HISTORY: Myeloproliferative disorder, Thrombocytosis (HCC) TECHNIQUE: CT abdomen and pelvis performed using standard technique Contrast: IV: 111 mL of Omnipaque 300 Oral: 50ML Omnipaque [address] Radiation dose: Integrated Dose-length product (DLP) for this visit = 377 mGy*cm. CT Dose Reduction Employed: Automated exposure control(AEC) and iterative recon COMPARISON: 12/23/2009 RESULT: Lower thorax: A chest CT performed will be reported separately. Liver: There are a few, small low attenuation hepatic lesions. While they are too small to be evaluated, they are probably benign. Biliary: No bile duct dilation. Spleen: Subcentimeter low-attenuation lesions are too small to characterize. Spleen measures 17.5 cm in craniocaudal dimension, previously 14 cm. Pancreas: No mass or duct dilation. Adrenals: No mass. Kidneys: 3 mm left lower pole calculus. No hydronephrosis. Vasculature: The celiac axis and SMA are patent. The portal vein and branches, splenic vein, SMV, and hepatic veins are patent. There are atherosclerotic calcifications without aneurysmal dilation. GI tract: No dilation or wall thickening. Appendix within normal limits. Lymph nodes: No abdominal or pelvic lymphadenopathy. Mesentery/Peritoneum: No ascites or mass. Pelvis: Trace free fluid in the pelvis is nonspecific. Bones/Soft Tissues: No acute finding. IMPRESSION: PROGRESSIVE SPLENOMEGALY. NO ACUTE FINDING OR METASTATIC DISEASE IN THE ABDOMEN OR PELVIS, OTHERWISE. Lining Scrubber: OTIS Transcribe Date/Time: Mar 30 2018 2:28P Dictated by : SHILOH WHEELER MD This examination was interpreted and the report reviewed and electronically signed by: SHILOH WHEELER MD on Mar 30 2018 2:37PM EST [id number] CT CHEST W IVCON Observed: 03/28/2018 Status: F Source: [facility] 11:43 AM [facility] [place] REPOSITORY * * *Final Report* * * DATE OF EXAM: Mar 28 2018 11:43AM [facility] 0539 - CT CHEST W IVCON / PROCEDURE REASON: multiple diagnoses * * * * Physician Interpretation * * * * EXAMINATION: CHEST CT WITH CONTRAST CLINICAL HISTORY: Superior mesenteric vein thrombosis Gastrointestinal hemorrhage, unspecified gastrointestinal hemorrhage type Technique: Spiral CT acquisition of the chest from the thoracic inlet to the upper abdomen following IV contrast. MQ: CTCWR_5 Contrast: 111 mL Omnipaque [address] Dose-Length Product: 377 mGy*cm CT Dose Reduction Employed: Automated exposure control(AEC) and iterative recon Comparison: 09/17/2017 RESULT: Limitations: None. Lines, tubes, and devices: None. Lung parenchyma and pleura: Centrilobular emphysema. Focal scarring medial LEFT lung base with associated bronchiectasis. Subcentimeter calcified granuloma lateral LEFT lung. Subcentimeter calcified granuloma also noted in superior segment RIGHT lower lobe. No consolidation. No suspicious pulmonary nodule. No pleural effusion. Central airways are patent. Thoracic inlet, heart, and mediastinum: Borderline enlarged RIGHT hilar lymph node or lymph nodes measuring about 1.1 x 1.1 x 1.8 cm unchanged from prior CT The thoracic aorta and main pulmonary artery are normal in caliber. The cardiac chambers are normal in size. No coronary artery atherosclerotic calcifications are noted, although the study is not optimized for coronary assessment. Mild anterior pericardial effusion or thickening. Bones and soft tissues: No destructive bone lesion. Chest wall is unremarkable. Upper abdomen: CT abdomen and pelvis dictated separately IMPRESSION: Medial LEFT lower lobe focal scarring and bronchiectasis Stable borderline RIGHT hilar adenopathy Minimal anterior pericardial effusion or less likely pericardial thickening Lining Scrubber: OTIS Transcribe Date/Time: Apr 01 2018 8:57A Dictated by : KEEGAN COLIN MD This examination was interpreted and the report reviewed and electronically signed by: KEEGAN COLIN MD on Apr 01 2018 9:05AM EST [id number] ANES POST Observed: 03/27/2018 Status: COMPLETED Source: [facility] 2:27 PM CLINIC OTHER CAMPUS REPOSITORY HNO ID: [id number] Author: Christian Shaffer Service: Anesthesiology Author Type: Anesthesiologist Type: Anesthesia PostOp Filed: 03/27/2018 3:59 PM Note Text: POST ANESTHESIA EVALUATION NOTE SERVICE DATE: 03/27/2018 SERVICE TIME: 3:59 PM : 1940 Vitals: 03/27/18 0946 03/27/18 1242 Temp: 36.2 ?C (97.2 ?F) 36.2 ?C (97.2 ?F) 03/27/18 1242 03/27/18 1300 03/27/18 1315 03/27/18 1330 BP: 108/60 124/61 121/61 131/62 03/27/18 1242 03/27/18 1300 03/27/18 1315 03/27/18 1330 Pulse: 78 78 90 67 03/27/18 1242 03/27/18 1300 03/27/18 1315 03/27/18 1330 Resp: 16 16 16 16 03/27/18 1242 03/27/18 1300 03/27/18 1315 03/27/18 1330 SpO2: 100% 100% 96% 95% Validated Vital Signs: Yes POST ANES STATUS: No apparent anesthetic complications. The patient is appropriately hydrated with stable respiratory and cardiovascular status. Patient has safe and adequate airway control. The patient has appropriate pain relief and no significant post operative nausea or vomiting. The patient has achieved baseline mental status. Further assessment by Anesthesia Service: None Other Remarks: SIGNATURE: Christian Shaffer MD PATIENT NAME: Sabina Flores DATE: March 27, 2018 TIME: 3:59 PM PAGER/CONTACT #: [phone] PT ED Observed: 03/27/2018 Status: COMPLETED Source: [facility] 1:56 PM [facility] OTHER CAMPUS REPOSITORY HNO ID: [id number] Author: Jeffrey HanksRn) TL Castellon Service: Nursing Author Type: Registered Nurse Type: Patient Education Filed: 03/27/2018 1:58 PM Note Text: PATIENT EDUCATION TOPIC: PROCEDURE / SURGERY: Post Procedure Teaching: PATIENT NAME: Sabina Flores PATIENT LOCATION: [place] [facility] [facility] READINESS TO LEARN COGNITIVE ABILITY: Alert and oriented MOTIVATION TO LEARN: Interested FAMILY SUPPORT: Moderate - Family present but overwhelmed INSTRUCTION PROVIDED TO: Patient PATIENT LEARNS BEST BY: Individual Instruction Verbal Instruction FACTORS AFFECTING LEARNING: None PHYSICAL LIMITATIONS AFFECTING LEARNING: None LEARNING RESPONSE DIAGNOSIS: ADULT: PATIENT/FAMILY RESPONSE: Verbalizes understanding of: METHOD OF INSTRUCTION: verbal FOLLOW-UP PLAN: Patient instructed to call with any further issues Follow-up with Primary Care INSTRUCTIONAL AIDS USED: NA SUPPLEMENTAL MATERIAL PROVIDED TO PATIENT: None REFERRAL (RECOMMENDATION): None Electronically Signed By: Jeffrey Castellon RN NURSING PROG Observed: 03/27/2018 Status: COMPLETED Source: [facility] 1:15 PM [facility]IN[facility] OTHER [place] REPOSITORY HNO ID: [id number] Author: Maureen HanksRn) TL Hahn Service: Nursing Author Type: Registered Nurse Type: Nursing Progress Note Filed: 03/27/2018 1:40 PM Note Text: 1242 Received from endo Lying on left side no rectal drainage abd soft 1300 Turned to back No c/o pain [address] lay re Instructions on homegoing instructions to resume coumadin, Pt not on coumadin Dr lay aware and stated to updated instructions SURGICAL PATHOLOGY Observed: 03/27/2018 Status: F Source: [facility] 1:00 PM [facility] OTHER [place] REPOSITORY Specimen originated from [facility] Specimen #: [id number] Submitting Physician: DORA LAY MD FINAL DIAGNOSIS 1. Stomach, body, biopsy (A) - Mild chronic inactive gastritis. - No morphologic evidence of H. pylori organisms. 2. Polyp, cecum, polypectomy (B) - Fragments of tubular adenoma. 3. Sigmoid colon, biopsy (C) - Colonic mucosa with no significant diagnostic abnormality. - No morphologic evidence of lymphocytic or collagenous colitis. SG/mago 03/28/2018 Christy Morejon M.D. (Electronic Signature) SPECIMEN SUBMITTED A: BODY OF STOMACH, BIOPSY B: CECUM POLYP C: SIGMOID, BIOPSY CLINICAL DATA RECTAL BLEEDING GROSS DESCRIPTION A. Received in formalin is one piece of morales, soft tissue measuring 0.5 x 0.2 x 0.2 cm. Totally submitted in one cassette. B. Received in formalin are two morales polypoid segments of tissue aggregating to 1.5 x 0.8 x 0.4 cm. No stalks are present. The lines of resection are noted. The specimens are trisected and totally submitted in cassettes B1-B2. Also received in the same container are multiple pieces of morales, soft tissue aggregating to 0.5 x 0.2 x 0.2 cm. Totally submitted in cassette B3. C. Received in formalin is one piece of morales, soft tissue measuring 0.3 x 0.2 x 0.2 cm. Totally submitted in one cassette. Gross examination performed at [facility], [address] [place] [address] 03/27/2018 7:07:19 PM Date of Report: 03/28/2018 Date of Procedure: 03/27/2018 Date of Receipt: 03/27/2018 Submitted by: DORA LAY MD Location: [facility] Diagnostic interpretation performed at [facility], [address] [place] [address]. Performed By: #### PATHS #### [place] [address] [phone] ANES PREOP Observed: 03/27/2018 Status: COMPLETED Source: [facility] 10:11 AM [facility] OTHER CAMPUS REPOSITORY HNO ID: [id number] Author: Christian Shaffer Service: Anesthesiology Author Type: Anesthesiologist Type: Anesthesia PreOp Filed: 03/27/2018 10:11 AM Note Text: ANESTHESIOLOGY DAY OF SURGERY NOTE SERVICE DATE: 03/27/2018 SERVICE TIME: 10:11 AM : 1940 Procedure(s) (LRB): COLONOSCOPY (N/A) EGD (N/A) Surgeon(s): Dora Lay Estimated body mass index is 17.02 kg/m? as calculated from the following: Height as of this encounter: 180.3 cm (5' 11). Weight as of this encounter: 55.3 kg (122 lb). 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 Back Pain, Chronic History of Laryngeal Cancer Hypoxemia Severe Protein-Calorie Malnutrition (Hcc) Thrombocytosis (Hcc) Elevated Bilirubin Body Mass Index (Bmi) Less Than Or Equal to 19 in Adult Malignant Neoplasm of Larynx (Hcc) Dysphagia History of Peptic Ulcer Squamous Cell Carcinoma of Larynx (Hcc) Former Tobacco Use S/P Partial Gastrectomy Leukocytosis Vitamin D Deficiency Hypoalbuminemia Subclinical Hypothyroidism 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) Essential Hypertension Acute Gout of Multiple Sites Gastrointestinal Hemorrhage Hematemesis Acute Blood Loss Anemia GI Bleed Esophageal Tear PAST MEDICAL HISTORY Diagnosis Date - ABNORMAL LIVER FUNCTION STUDY 01/11/2005 Alkaline phosphatemia - Body mass index (BMI) less than or equal to 19 in adult 03/28/2017 - COPD (chronic obstructive pulmonary disease) (HCC) 01/13/2013 - DIVERTICULOSIS OF COLON W/O BLEED 01/11/2005 - Diverticulosis of large intestine without hemorrhage 01/11/2005 - Dysphagia 09/18/2017 - 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 Assessment: Mesenteric venous thrombosis versus PUD versus pancreatitis versus esophageal perforation LUQ/midepigastric burning abdominal pain CT imaging showed superior mesenteric venous thrombosis Hx of pancreatitis, lipase 116 (11/29/17) Recent esophageal dilatation Plan: Consult vascular medicine, hematology Start heparin nomogram Start cipro/flagyl Continue famotidine Pain management - tylenol (mild), tramadol (moderate) Zofran prn nausea LR IVF Diet NPO KUB AM Lactate AM - Tobacco use disorder 01/11/2005 - Unspecified asthma(493.90) 03/03/2011 pt not aware PAST SURGICAL HISTORY Procedure Laterality Date - COLONOSCOP W/ OR W/O BRS SPEC 2003 Colonoscopy - COLONOSCOP W/ OR W/O BRSH SPEC 02/20/2013 Colonoscopy - COLONOSCOP W/ OR W/O BRSH SPEC 03/30/16 Colonoscopy - EGD BIOPSY SINGLE/MULTIPLE 09/21/2017 - EGD W/O OR W/BRUSH/WASH 2003 EGD - EGD W/O OR W/BRUSH/WASH 02/20/13 EGD - ESOPH W/O BRS SPEC BALLOON DIL 12-1-2003 Esophageal dilatation - LARYNGOSCOPY W/ BIOPSY 02/06/2014 - PARTIAL GASTRECTOMY 1970 bleeding ulcer - PAST SURGICAL HISTORY OF Left 08/29/2016 Floor of mouth resection, sialadochoplasty FAMILY HISTORY Problem Relation Age of Onset - Cancer Brother lung cancer - Cancer Brother bone cancer - Cancer Brother brain tumor or cancer - Coronary Artery Disease Father age 64, [place] - None Mother age 95 Social History: Social History Substance Use Topics - Smoking status: Former Smoker Packs/day: 2.00 Years: 52.00 Types: Cigarettes Quit date: 09/01/2013 - Smokeless tobacco: Never Used - Alcohol use 6.0 oz/week 4 Cans of Beer (12oz) per week Comment: hasn't drank since early 2017 No current facility-administered medications on file prior to encounter. Current Outpatient Prescriptions on File Prior to Encounter: pantoprazole DR (PROTONIX) 40 mg tablet Take 1 tablet by mouth once daily. aspirin 81 mg chewable tablet Take 81 mg by mouth once daily. allopurinol (ZYLOPRIM) 300 mg tablet Take 1 tablet by mouth once daily. This can be crushed. hydroxyurea (HYDREA) 100 mg/mL oral liquid Take 5 mL by mouth once daily. Cholecalciferol, Vitamin D3, (VITAMIN D-3) 1,000 unit chew Take 1 tablet by mouth once daily. Chlorhexidine Gluconate (PERIDEX) 0.12 % solution Take 15 mL by mouth once daily. Swish for 30 seconds and then spit out. tiotropium-olodaterol (STIOLTO RESPIMAT) 2.5-2.5 mcg/actuation mist Inhale 2 Puffs as instructed once daily. warfarin (COUMADIN) 2.5 mg tablet Take 2.5 mg by mouth daily as directed. 2.5 mg Tu/ and 5 mg all other daysNot taking diltiazem CD (CARDIZEM CD) 120 mg 24 hr capsule Take 1 capsule by mouth twice daily. (Patient not taking: Reported on 03/14/2018 ) Current Facility-Administered Medications: NaCl 0.9% iv infusion 30 mL/hr INTRAVENOUS CONTINUOUS Dora Lay Last Rate: 30 mL/hr at 03/27/18 1005 30 mL/hr at 03/27/18 1005 Allergies: ALLERGIES Allergen Reactions - Doxycycline Other: See Comments pancreatitis DOS EXAM: Adequate NPO status: Yes Anesthetic risks, benefits, alternatives, personnel and consent discussed: Yes Patient agrees to proceed: Yes Previous Anesthesia: No history of adverse event. Airway Assessment: MP 2; Neck ROM: Full ROM without neurologic symptoms; Airway Evaluation: No significant abnormalities Symptoms of Sleep Apnea: None Dentition: Teeth intact Additional Physical Exam: Lungs: Patient health status unchanged since recent history and physical. See history and physical for exam findings. Cardiac: Patient health status unchanged since recent history and physical. See history and physical for exam findings. Additional Pertinent Findings: N/A Blood Products: Not anticipated for this procedure. Anesthetic Plan: MAC with Sedation Pain Management Plan: Parenteral or Oral ASA Class: 3 Other Medical Problems: None I have interviewed and examined the patient. I have reviewed the medical record and/or the pre-anesthesia evaluation, pertinent labs, and test results. Significant changes in the patient's condition since the History and Physical, not otherwise documented in primary service progress notes: No This contains updated information obtained within 48 hours of Surgery/Procedure. SIGNATURE: Christian Shaffer MD PATIENT NAME: Sabina Flores DATE: March 27, 2018 TIME: 10:11 AM CSN: [id number] PT ED Observed: 03/27/2018 Status: COMPLETED Source: [facility] 9:49 AM [facility] REPOSITORY HNO ID: [id number] Author: Maureen (Rn) TL Hahn Service: Nursing Author Type: Registered Nurse Type: Patient Education Filed: 03/27/2018 9:49 AM Note Text: PRE OP LEARNING ASSESSMENT PROCEDURE/SURGERY: egd and colonoscopy READINESS TO LEARN COGNITIVE ABILITY: Alert and oriented MOTIVATION TO LEARN: Interested FAMILY SUPPORT: High - Very involved in pt care PATIENT LEARNS BEST BY: Verbal Instruction FACTORS AFFECTING LEARNING: None PHYSICAL LIMITATIONS AFFECTING LEARNING: None Electronically Signed By: Maureen Hahn RN In Department: [facility] ENDOSCOPY HISTORY PHYSICAL Observed: 03/27/2018 Status: COMPLETED Source: [facility] 9:30 AM [facility] REPOSITORY HNO ID: [id number] Author: Dora Lay Service: General Surgery Author Type: Physician Type: HANDP Filed: 03/27/2018 9:30 AM Note Text: HISTORY AND PHYSICAL ? Sabina Flores 1940 ? REFERRING PHYSICIAN: Maura Aguillon DO ? CHIEF COMPLAINT: Consult (colonoscopy) - GI bleeding ? HPI: The patient is a 78 year old male referred for endoscopy. Sabina notes the following GI complaints: Sabina denies abdominal pain.. Sabina denies diarrhea. Sabina denies constipation. Sabina denies a change in bowel habits. Sabina notes melena. Sabina underwent EGD with dilatation on February 26 at [facility]. On March 14 noted 1 day history of black tarry stools with blood then mixed within the stool. Sabina denies bright red blood per rectum. Sabina denies hemorrhoids. ? The patient notes the following upper complaints: Sabina notes a history of progressive dysphagia starting in August. He underwent upper endoscopy on September 21 and was felt to likely have a malignant stricture but biopsy was negative. He is at repeat EGDs and dilatations since that time. ? He underwent left most recent colonoscopy March 2016 for which he was found to have 3 polyps. The patient had 210 mm and one 5 mm polyps. The proximal ascending colon polyp was tattooed as it was felt to have a subtle broad base. The other 2 polyps were removed and not tattooed. ? ? The patient is being seen by me today at the request of Dr. Varun Wang MD for my opinion and advice regarding rectal bleeding. ? ? PAST MEDICAL HISTORY PAST MEDICAL HISTORY Diagnosis Date - ABNORMAL LIVER FUNCTION STUDY 01/11/2005 ? Alkaline phosphatemia - Body mass index (BMI) less than or equal to 19 in adult 03/28/2017 - COPD (chronic obstructive pulmonary disease) (HCC) 01/13/2013 - DIVERTICULOSIS OF COLON W/O BLEED 01/11/2005 - Diverticulosis of large intestine without hemorrhage 01/11/2005 - Dysphagia 09/18/2017 - Esophageal stricture 01/11/2005 ? 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 - Essential hypertension 11/30/2017 - Former tobacco use 09/18/2017 - Interstitial lung disease (HCC) 02/09/2011 ? 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 Assessment: Mesenteric venous thrombosis versus PUD versus pancreatitis versus esophageal perforation LUQ/midepigastric burning abdominal pain CT imaging showed superior mesenteric venous thrombosis Hx of pancreatitis, lipase 116 (11/29/17) Recent esophageal dilatation Plan: Consult vascular medicine, hematology Start heparin nomogram Start cipro/flagyl Continue famotidine Pain management - tylenol (mild), tramadol (moderate) Zofran prn nausea LR IVF Diet NPO KUB AM Lactate AM - Tobacco use disorder 01/11/2005 - Unspecified asthma(493.90) 03/03/2011 ? pt not aware ? ? PAST SURGICAL HISTORY PAST SURGICAL HISTORY Procedure Laterality Date - COLONOSCOP W/ OR W/O BRSH SPEC ? 2003 ? Colonoscopy - COLONOSCOP W/ OR W/O BRSH SPEC ? 02/20/2013 ? Colonoscopy - COLONOSCOP W/ OR W/O BRSH SPEC ? 03/30/16 ? Colonoscopy - EGD BIOPSY SINGLE/MULTIPLE ? 09/21/2017 - EGD W/O OR W/BRUSH/WASH ? 2003 ? EGD - EGD W/O OR W/BRUSH/WASH ? 02/20/13 ? EGD - ESOPH W/O BRSH SPEC BALLOON DIL ? 03-30-2004 ? Esophageal dilatation - LARYNGOSCOPY W/ BIOPSY ? 02/06/2014 - PARTIAL GASTRECTOMY ? 1970 ? bleeding ulcer - PAST SURGICAL HISTORY OF Left 08/29/2016 ? Floor of mouth resection, sialadochoplasty ? ? ? CURRENT MEDICATIONS ? Current Outpatient Prescriptions: pantoprazole DR (PROTONIX) 40 mg tablet Take 1 tablet by mouth once daily. aspirin 81 mg chewable tablet Take 81 mg by mouth once daily. allopurinol (ZYLOPRIM) 300 mg tablet Take 1 tablet by mouth once daily. This can be crushed. hydroxyurea (HYDREA) 100 mg/mL oral liquid Take 5 mL by mouth once daily. Cholecalciferol, Vitamin D3, (VITAMIN D-3) 1,000 unit chew Take 1 tablet by mouth once daily. Chlorhexidine Gluconate (PERIDEX) 0.12 % solution Take 15 mL by mouth once daily. Swish for 30 seconds and then spit out. tiotropium-olodaterol (STIOLTO RESPIMAT) 2.5-2.5 mcg/actuation mist Inhale 2 Puffs as instructed once daily. peg 3350-Electrolytes (GOLYTELY) 236-22.74-6.74 -5.86 gram suspension Take 4,000 mL by mouth one time only for 1 dose. Refer to printed prep instructions from your doctor. warfarin (COUMADIN) 2.5 mg tablet Take 2.5 mg by mouth daily as directed. 2.5 mg / and 5 mg all other days diltiazem CD (CARDIZEM CD) 120 mg 24 hr capsule Take 1 capsule by mouth twice daily. (Patient not taking: Reported on 03/14/2018 ) ? No current facility-administered medications for this visit. ? ALLERGIES: Doxycycline ? PERSONAL HISTORY: SOCIAL HISTORY Social History Marital status: Spouse name: Years of education: Number of children: ? Social History Main Topics Smoking status: Former Smoker Packs/day: 2.00 Years: 52.00 Types: Cigarettes Quit date: 09/01/2013 Smokeless tobacco: Never Used Alcohol use: Yes 6.0 oz/week Cans of Beer (12oz): 4 per week Comment: hasn't drank since early 2017 Drug use: No Sexual activity: No ? ? FAMILY HISTORY: FAMILY HISTORY FAMILY HISTORY Problem Relation Age of Onset - Cancer Brother ? ? lung cancer - Cancer Brother ? ? bone cancer - Cancer Brother ? ? brain tumor or cancer - Coronary Artery Disease Father ? ? age 64, [place] - None Mother ? ? age 95 ? ? REVIEW OF SYMPTOMS: The review of systems data was entered by the nurse and reviewed by me ? Nursing Notes: Paola Zavaleta LPN 03/20/2018 8:04 AM Signed REVIEW OF SYSTEMS: General: The patient denies fatigue, denies weight loss, denies weight gain, denies feeling hot, and denies feelings of cold. Eyes: The patient denies glaucoma, NOTES eye injury/surgery, does not wear glasses or contacts. Ear/Nose/Throat: The patient denies allergies, denies hayfever, denies ear infections, and denies bloody noses. Cardiovascular: The patient denies chest pain, denies heart disease, denies high blood pressure,denies cardiac stent, denies prior heart attack, denies irregular heart beat, denies high cholesterol, denies poor circulation, denies heart failure, other cardiac issues, denies claudication, denies cold feet, denies peripheral arterial stent. Respiratory: The patient denies tuberculosis, denies pneumonia, denies frequent cough, denies pulmonary embolism, denies shortness of breath, and denies coughing up blood. Gastrointestinal: The patient NOTES difficulty swallowing, denies acid reflux, NOTES ulcers, denies vomiting, denies jaundice/hepatitis, denies gallbladder problems, NOTES black or tarry stools, denies hemorrhoids, denies bleeding from rectum, denies diverticulitis, denies constipation, denies diarrhea, denies loss of stool control, and denies hernias. Kidney/Bladder: The patient denies kidney stones, denies urine infections, and denies bloody urine. Skin: The patient denies a history of skin cancer, denies bleeding/changing moles, and denies a history of skin rash. Neurologic: The patient denies a history of epilepsy/convulsions, denies headaches, denies head/spinal injuries, and denies stroke/TIA. Psychiatric: The patient denies psychiatric medications, denies depression, and denies voices, denies substance abuse. Endocrine: The patient denies thyroid disorders, denies diabetes, and denies hormonal problems. Hematologic: The patient denies a history of bruising, denies bleeding, and denies anemia, NOTES blood clots. Infections: The patient denies a history of measles and mumps, denies rheumatic fever, and denies sexually transmitted diseases. Musculoskeletal: The patient denies back pain/injury, denies back problems, denies sciatica, denies knee/foot trouble, denies arthritis, or NOTES gout. ? ? When was patient's last Mammogram screening? N/A ? Last Colonoscopy: 2 or 3 years ago ? Paola Zavaleta LPN PHYSICAL EXAMINATION: ? General: The patient is 78 year old male, well nourished, well hydrated in no acute distress. The patient is oriented to time, place, and person. ? VITALS: Blood pressure 108/64, pulse 80, weight 54.9 kg (121 lb). Body mass index is 16.88 kg/m?. ? HEENT: Normal cephalic, ataumatic, pupils are equally round, sclera are anicteric, mucous membranes are moist, oropharynx is clear. Neck has no masses, asymmetry or lymphadenopathy. Thyroid is unremarkable. ? Respiratory: Clear to auscultation and percussion. Normal respiratory excursion and pattern. ? Cardiac: Examination is regular rate and rhythm. No murmurs rubs or additional cardiac tones ? Abdominal exam: Soft, nontender, with no palpable masses. No hepatosplenomegaly. No palpable hernias. ? Rectal exam: exam deferred ? Extremities: no clubbing, cyanosis or edema. No adenopathy. ? Other: ? LABORATORY VALUES: As Noted ? RADIOLOGIC STUDIES: As Noted ? Assessment IMPRESSION: Rectal bleeding, history of colon polyps, history of upper endoscopy with melena post-dilatation ? PLAN: I plan to perform upper and lower endoscopy. We discussed the risks and benefits of the planned endoscopy. I have informed the patient that complications can occur including failure to complete the endoscopy and perforation. The patient had the opportunity to ask questions concerning the planned endoscopy. My staff has also explained the procedure to the patient in understandable terms and has given the patient printed material concerning the procedure. The patient freely consents to surgery. ? I plan to use golytely bowel preparation for endoscopy ? I plan for monitored anesthetic care. ? Diagnoses: (D47.3) Thrombocytosis (HCC) (primary encounter diagnosis) (K22.2) Esophageal stricture (J44.9) Chronic obstructive pulmonary disease, unspecified COPD type (HCC) (K92.2) Gastrointestinal hemorrhage, unspecified gastrointestinal hemorrhage type ? My findings have been communicated to Dr. Varun Wang MD via shared medical record. This note will be forwarded to Dr. Varun Wang MD. Return to Clinic: The patient is instructed to follow-up with me after the testing has been completed. ? Dora Lay MD NURSING PROG Observed: 03/26/2018 Status: COMPLETED Source: [facility] 1:50 PM CLINIC OTHER CAMPUS REPOSITORY HNO ID: [id number] Author: Hamida (Rn) TL Lopes Service: Nursing Author Type: Registered Nurse Type: Nursing Progress Note Filed: 03/26/2018 2:03 PM Note Text: PACC Nurse Progress Note History AND Physical: PACC Visit Date: N/A Original HANDP Date: 03/20/[address] Lay ED visit Date: N/A Outside HANDP Scanned Date: N/A Labs Within Last 6 Months: CBC: Date 03/14/18 Cbc hgb 9.0/hct 32.0--hx of recent UGI bleed, JACOBO BMP/CMP: Date 03/14/18 cmp K+ 3.3 Imaging Within Last 12 Months: CT Scan- chest 03/04/18 ,in epic US-03/06/18 bilateral LE ,no evidence of DVT Cardiac Testing: EKG in last 12 Months: Yes: Date: 09/18/17, Comment: ST 107, low voltlage QRS, inferior infarct,? age ECHO Date: 09/20/17 , Comment: EF 59%, RVSP-estimated at least 20 BMI Percentile (PEDS): N/A Risk Assessment: N/A Anesthesia Review: N/A Narrative: HX thrombocytosis, GI bleed 03/09/18, EGD -recent, COPD, JACOBO, Gastrectomy 1970 Pre-op Considerations: Recent hospitalization at [facility] for GI bleed Chart Check: COMPLETED Hamida Lopes RN March 26, 2018 1:50 PM PATIENT PREOPERATIVE INSTRUCTIONS No ref. provider found has scheduled you for your procedure at this surgery center: [facility]: [phone] -- [address] [place] [address] [id number]. Please read below carefully for your personalized instructions. Blood Thinning Medications: - Stop NSAIDS (Ibuprofen, Advil, Aleve, Motrin, Celebrex, Mobic, etc.) 7 days before surgery, as directed by your surgeon. - Stop Vitamin E, ALL multi-vitamins, herbals and dietary supplements 7 days before surgery. Pt stated--taken off coumadin at time of GI bleed and has not restarted per order. Dietary Restrictions: Follow Dr Lay instructions for bowel prep Pain Medications: Medications: Approved medications to take the morning of surgery with a sip of water: Protonix, cardizem If you start any new medications after today's visit, please contact the surgeon's office. Important Reminders: - If you are prescribed inhalers for breathing, continue using them AND bring them to the surgery center. - Candy, mints, gum and tobacco products are NOT permitted the morning of surgery. - Hearing aids, dentures and glasses may be worn the morning of surgery. - NO jewelry, body piercings, makeup, hairpins or contacts are to be worn the day of surgery. Shower pre op, no creams,lotions powders dos If you develop symptoms such as a fever, cold, or flu, or have other changes to your health within TWO DAYS of scheduled surgery or the morning of surgery, please contact the surgery center above. Personal Belongings: - Leave ALL valuables and money at home or with family members. For Outpatient Procedures: - YOU MUST HAVE A RESPONSIBLE BACK FEEDER [employer] TAKE YOU HOME. A CERTIFIED SHORTHAND REPORTER OR CERTIFIED INDOOR ENVIRONMENTALIST CANNOT BE MADE A RESPONSIBLE BACK FEEDER [employer]. - We recommend that a responsible person stays with you overnight to take care of you. - You cannot stay in a hotel alone after outpatient surgery. You will not be permitted to have your surgery, if you do not have someone to take care of you. Arrival Time for Surgery: - The Surgery Center or hospital where you are having surgery will call the afternoon before surgery (or Sunday for Sunday surgery) with a scheduled arrival time. - If you have not heard by 4 pm, please contact the surgery center above. Please be aware that emergency situations arise, which may delay or change your surgical time. If this happens, we will notify you as soon as possible and regret any inconvenience. Hamida Lopes RN 03/26/18 2pm CNOV Observed: 03/25/2018 Status: COMPLETED Source: [facility] 3:30 PM [facility] REPOSITORY Office Visit (OTOLMN) SABINA FLORES ([id number]) 1940 M Date Time Provider Department 03/25/18 3:30 PM MARCO A GIRALDO OTOLVT During your visit today, we recorded the following information about you: Respiration Weight Height 20/minute 55.3 kg 1.803 m Aubree Ji 03/25/2018 3:05 PM Signed Tobacco Use: 2 packs/day, for 52 years. Quit 09/01/2013. Types: Cigarettes Was smoking cessation packet given? N/A - Patient is a non- smoker or quit >1 year ago. 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 CHOLECALCIFEROL (VITAMIN D3) * Take 1 tablet by mouth once d* CHLORHEXIDINE GLUCONATE 0.12 * Take 15 mL by mouth once cristiana* TIOTROPIUM 2.5 MCG-OLODATEROL* Inhale 2 Puffs as instructed * WARFARIN 2.5 MG TABLET Take 2.5 mg by mouth daily as* DILTIAZEM SR 120 MG 24 HR CAP Take 1 capsule by mouth twice* Patient not taking: Reported on 03/14/2018 Problem List As Of Date 03/25/2018 Noted Resolved Iron deficiency anemia [D50.9] INVALID FOR* Priority: Severe Peptic ulcer, unspecified site, unspecified as *INVALID FOR*10/30/2011 Esophageal stricture [K22.2] INVALID FOR* Priority: Moderate Diverticulosis of large intestine without hemor*INVALID FOR*01/24/2018 Nonspecific abnormal results of liver function *INVALID FOR*03/31/2011 More... Personal history of alcoholism [F10.21] INVALID FOR*02/12/2014 Tobacco use disorder [F17.200] INVALID FOR*02/21/2016 Interstitial lung disease (HCC) [J84.9] INVALID FOR* Lung nodule [R91.1] INVALID FOR*04/14/2013 More... Asthma [J45.909] INVALID FOR* COPD (chronic obstructive pulmonary disease) (H*INVALID FOR* Priority: C More... 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 Thrombocytosis (HCC) [D47.3] INVALID FOR* Priority: Severe Elevated protime [R79.1] INVALID FOR*01/24/2018 Elevated bilirubin [R17] INVALID FOR* Shortness of breath [R06.02] INVALID FOR*09/22/2017 Priority: A More... Body mass index (BMI) less than or equal to 19 *INVALID FOR* Malignant neoplasm of larynx (HCC) [C32.9] INVALID FOR* More... 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 Vitamin D deficiency [E55.9] INVALID FOR* Hypoalbuminemia [E88.09] INVALID FOR* Prolonged INR [R79.1] INVALID FOR*09/22/2017 More... 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 Essential hypertension [I10] INVALID FOR* Priority: D Acute gout of multiple sites [M10.9] INVALID FOR* Gastrointestinal hemorrhage [K92.2] INVALID FOR* Hematemesis [K92.0] INVALID FOR* More... Acute blood loss anemia [D62] INVALID FOR* GI bleed [K92.2] INVALID FOR* More... Esophageal tear [S11.21XA] INVALID FOR* More... Visit Notes: >> Aubree Ji Mon Mar 25, 2018 3:04 PM Status: Signed Tobacco Use: 2 packs/day, for 52 years. Quit 09/01/2013. Types: Cigarettes Was smoking cessation packet given? N/A - Patient is a non- smoker or quit >1 year ago. Was a referral initiated?N/A Patient is a non-smoker Encounter Status:Closed by MARCO A GIRALDO MD on 03/26/18 PROGRESS Observed: 03/25/2018 Status: COMPLETED Source: [facility] 12:00 AM [facility] [place] REPOSITORY HNO ID: [id number] Author: Marco A Giraldo Service: (none) Author Type: Physician Type: Progress Notes Filed: 03/27/2018 3:55 PM Note Text: [facility] [place] Marco A Giraldo M.D. NAME: SABINA FLORES CLINIC NO: [id number] DATE OF SERVICE: 03/25/2018 Chief Complaint Oncologic surveillance. History of Present Illness Mr. Flores returns in followup. He is a patient with a history of a left floor of mouth resection, high grade keratinizing squamous dysplasia present. Carcinoma in situ had been resected and margins were negative on final resection. 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 This was treated with nonoperative chemoradiation therapy. The patient has overall continued to do quite well. Examination Age appropriate, no acute distress. Voice is excellent, speech is excellent. Cervical examination reveals no new masses to inspection or palpation. Oral cavity and oropharyngeal examination reveals no lesions. Flexible fiberoptic endoscopy is performed and dictated as a separate note. Medical Decision Making Diagnosis 1. No evidence of disease. 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 2. 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 3. Dysphagia. Treatment Plan 1. Continue oncologic surveillance. 2. Flexible fiberoptic endoscopy in the office today. Procedure Note Flexible fiberoptic endoscopy Indications: Patient with a history of oropharyngeal cancer, requiring further evaluation. He has a hyperactive gag reflex precluding indirect laryngoscopy. Procedure: The patient was decongested and anesthetized in the right nasal cavity. After appropriate time had elapsed for vasoconstriction and anesthesia, the fiberoptic scope was introduced into the right nasal cavity and advanced posteriorly. No lesions seen in the nasopharynx. Further advancement to the level of the larynx revealed normal true vocal cord movement. No hypopharyngeal nor endolaryngeal lesions appreciated. MARCO A GIRALDO M.D. JS/[id number] Audio #: [id number] Date Dictated: 03/25/2018 15:45:22 Date Typed: 03/27/2018 11:05:01 Date Revised: PROGRESS Observed: 03/20/2018 Status: COMPLETED Source: [facility] 2:34 PM [facility] REPOSITORY HNO ID: [id number] Author: Angela (Rn) TL Norton Service: (none) Author Type: Registered Nurse Type: Progress Notes Filed: 03/20/2018 2:37 PM Note Text: TRANSITION CARE MANAGEMENT (TCM) FOLLOW-UP NOTE Summary: hospital discharge 03/09 UGI bleed Completed oncology and Gen surgery appts Concerns: Spoke with . She will give patient message to call TCM line. TCM contact number provided. Scrap Preparer plan for next outreach: Will f/u pending return call from patient otherwise No further follow up needed at this time Signature Angela Norton RN March 20, 2018 PROGRESS Observed: 03/20/2018 Status: COMPLETED Source: [facility] 8:50 AM [facility] REPOSITORY HNO ID: [id number] Author: Dora Lay Service: (none) Author Type: Physician Type: Progress Notes Filed: 03/25/2018 8:23 AM Note Text: HISTORY AND PHYSICAL Sabina Olsen [place] 1940 REFERRING PHYSICIAN: Maura Aguillon DO CHIEF COMPLAINT: Consult (colonoscopy) - GI bleeding HPI: The patient is a 78 year old male referred for endoscopy. Sabina notes the following GI complaints: Sabina denies abdominal pain.. Sabina denies diarrhea. Sabina denies constipation. Sabina denies a change in bowel habits. Sabina notes melena. Sabina underwent EGD with dilatation on February 26 at [facility]. On March 14 noted 1 day history of black tarry stools with blood then mixed within the stool. Sabina denies bright red blood per rectum. Sabina denies hemorrhoids. The patient notes the following upper complaints: Sabina notes a history of progressive dysphagia starting in August. He underwent upper endoscopy on September 21 and was felt to likely have a malignant stricture but biopsy was negative. He is at repeat EGDs and dilatations since that time. He underwent left most recent colonoscopy March 2016 for which he was found to have 3 polyps. The patient had 210 mm and one 5 mm polyps. The proximal ascending colon polyp was tattooed as it was felt to have a subtle broad base. The other 2 polyps were removed and not tattooed. The patient is being seen by me today at the request of Dr. Varun Wang MD for my opinion and advice regarding rectal bleeding. 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 Assessment: Mesenteric venous thrombosis versus PUD versus pancreatitis versus esophageal perforation LUQ/midepigastric burning abdominal pain CT imaging showed superior mesenteric venous thrombosis Hx of pancreatitis, lipase 116 (11/29/17) Recent esophageal dilatation Plan: Consult vascular medicine, hematology Start heparin nomogram Start cipro/flagyl Continue famotidine Pain management - tylenol (mild), tramadol (moderate) Zofran prn nausea LR IVF Diet NPO KUB AM Lactate AM - Tobacco use disorder 01/11/2005 - Unspecified asthma(493.90) 03/03/2011 pt not aware PAST SURGICAL HISTORY Procedure Laterality Date - COLONOSCOP W/ OR W/O BRSH SPEC 2003 Colonoscopy - COLONOSCOP W/ OR W/O BRSH SPEC 02/20/2013 Colonoscopy - COLONOSCOP W/ OR W/O BRSH SPEC 03/30/16 Colonoscopy - EGD BIOPSY SINGLE/MULTIPLE 09/21/2017 - EGD W/O OR W/BRUSH/WASH 2003 EGD - EGD W/O OR W/BRUSH/WASH 02/20/13 EGD - ESOPH W/O [facility] SPEC [place] DIL 12-1-2003 Esophageal dilatation - LARYNGOSCOPY W/ BIOPSY 02/06/2014 - PARTIAL GASTRECTOMY 1970 bleeding ulcer - PAST SURGICAL HISTORY OF Left 08/29/2016 Floor of mouth resection, sialadochoplasty Current Outpatient Prescriptions: pantoprazole DR (PROTONIX) 40 mg tablet Take 1 tablet by mouth once daily. aspirin 81 mg chewable tablet Take 81 mg by mouth once daily. allopurinol (ZYLOPRIM) 300 mg tablet Take 1 tablet by mouth once daily. This can be crushed. hydroxyurea (HYDREA) 100 mg/mL oral liquid Take 5 mL by mouth once daily. Cholecalciferol, Vitamin D3, (VITAMIN D-3) 1,000 unit chew Take 1 tablet by mouth once daily. Chlorhexidine Gluconate (PERIDEX) 0.12 % solution Take 15 mL by mouth once daily. Swish for 30 seconds and then spit out. tiotropium-olodaterol (STIOLTO RESPIMAT) 2.5-2.5 mcg/actuation mist Inhale 2 Puffs as instructed once daily. peg 3350-Electrolytes (GOLYTELY) 236-22.74-6.74 -5.86 gram suspension Take 4,000 mL by mouth one time only for 1 dose. Refer to printed prep instructions from your doctor. warfarin (COUMADIN) 2.5 mg tablet Take 2.5 mg by mouth daily as directed. 2.5 mg Tu/Thurs and 5 mg all other days diltiazem CD (CARDIZEM CD) 120 mg 24 hr capsule Take 1 capsule by mouth twice daily. (Patient not taking: Reported on 03/14/2018 ) No current facility-administered medications for this visit. ALLERGIES: Doxycycline PERSONAL HISTORY: Social History Marital status: Spouse name: Years of education: Number of children: Social History Main Topics Smoking status: Former Smoker Packs/day: 2.00 Years: 52.00 Types: Cigarettes Quit date: 09/01/2013 Smokeless tobacco: Never Used Alcohol use: Yes 6.0 oz/week Cans of Beer (12oz): 4 per week Comment: hasn't drank since early 2017 Drug use: No Sexual activity: No FAMILY HISTORY: FAMILY HISTORY Problem Relation Age of Onset - Cancer Brother lung cancer - Cancer Brother bone cancer - Cancer Brother brain tumor or cancer - Coronary Artery Disease Father age 64, [place] - None Mother age 95 REVIEW OF SYMPTOMS: The review of systems data was entered by the nurse and reviewed by ms Nursing Notes: Paola Zavaleta LPN 03/20/2018 8:04 AM Signed REVIEW OF SYSTEMS: General: The patient denies fatigue, denies weight loss, denies weight gain, denies feeling hot, and denies feelings of cold. Eyes: The patient denies glaucoma, NOTES eye injury/surgery, does not wear glasses or contacts. Ear/Nose/Throat: The patient denies allergies, denies hayfever, denies ear infections, and denies bloody noses. Cardiovascular: The patient denies chest pain, denies heart disease, denies high blood pressure,denies cardiac stent, denies prior heart attack, denies irregular heart beat, denies high cholesterol, denies poor circulation, denies heart failure, other cardiac issues, denies claudication, denies cold feet, denies peripheral arterial stent. Respiratory: The patient denies tuberculosis, denies pneumonia, denies frequent cough, denies pulmonary embolism, denies shortness of breath, and denies coughing up blood. Gastrointestinal: The patient NOTES difficulty swallowing, denies acid reflux, NOTES ulcers, denies vomiting, denies jaundice/hepatitis, denies gallbladder problems, NOTES black or tarry stools, denies hemorrhoids, denies bleeding from rectum, denies diverticulitis, denies constipation, denies diarrhea, denies loss of stool control, and denies hernias. Kidney/Bladder: The patient denies kidney stones, denies urine infections, and denies bloody urine. Skin: The patient denies a history of skin cancer, denies bleeding/changing moles, and denies a history of skin rash. Neurologic: The patient denies a history of epilepsy/convulsions, denies headaches, denies head/spinal injuries, and denies stroke/TIA. Psychiatric: The patient denies psychiatric medications, denies depression, and denies voices, denies substance abuse. Endocrine: The patient denies thyroid disorders, denies diabetes, and denies hormonal problems. Hematologic: The patient denies a history of bruising, denies bleeding, and denies anemia, NOTES blood clots. Infections: The patient denies a history of measles and mumps, denies rheumatic fever, and denies sexually transmitted diseases. Musculoskeletal: The patient denies back pain/injury, denies back problems, denies sciatica, denies knee/foot trouble, denies arthritis, or NOTES gout. When was patient's last Mammogram screening? N/A Last Colonoscopy: 2 or 3 years ago Paola Zavaleta LPN PHYSICAL EXAMINATION: General: The patient is 78 year old male, well nourished, well hydrated in no acute distress. The patient is oriented to time, place, and person. VITALS: Blood pressure 108/64, pulse 80, weight 54.9 kg (121 lb). Body mass index is 16.88 kg/m?. HEENT: Normal cephalic, ataumatic, pupils are equally round, sclera are anicteric, mucous membranes are moist, oropharynx is clear. Neck has no masses, asymmetry or lymphadenopathy. Thyroid is unremarkable. Respiratory: Clear to auscultation and percussion. Normal respiratory excursion and pattern. Cardiac: Examination is regular rate and rhythm. No murmurs rubs or additional cardiac tones Abdominal exam: Soft, nontender, with no palpable masses. No hepatosplenomegaly. No palpable hernias. Rectal exam: exam deferred Extremities: no clubbing, cyanosis or edema. No adenopathy. Other: LABORATORY VALUES: As Noted RADIOLOGIC STUDIES: As Noted Assessment IMPRESSION: Rectal bleeding, history of colon polyps, history of upper endoscopy with melena post-dilatation PLAN: I plan to perform upper and lower endoscopy. We discussed the risks and benefits of the planned endoscopy. I have informed the patient that complications can occur including failure to complete the endoscopy and perforation. The patient had the opportunity to ask questions concerning the planned endoscopy. My staff has also explained the procedure to the patient in understandable terms and has given the patient printed material concerning the procedure. The patient freely consents to surgery. I plan to use golytely bowel preparation for endoscopy I plan for monitored anesthetic care. Diagnoses: (D47.3) Thrombocytosis (HCC) (primary encounter diagnosis) (K22.2) Esophageal stricture (J44.9) Chronic obstructive pulmonary disease, unspecified COPD type (HCC) (K92.2) Gastrointestinal hemorrhage, unspecified gastrointestinal hemorrhage type My findings have been communicated to Dr. Varun Wang MD via shared medical record. This note will be forwarded to Dr. Varun Wang MD. Return to Clinic: The patient is instructed to follow-up with me after the testing has been completed. Dora Lay MD PROGRESS Observed: 03/20/2018 Status: COMPLETED Source: [facility] 8:50 AM [facility] REPOSITORY HNO ID: [id number] Author: Dora Lay Service: (none) Author Type: Physician Type: Progress Notes Filed: 03/25/2018 8:23 AM Note Text: lk CNOV Observed: 03/20/2018 Status: COMPLETED Source: [facility] 8:00 AM [facility] REPOSITORY Office Visit (GENSWS) SABINA FLORES ([id number]) 1940 M Date Time Provider Department 03/20/18 8:00 AM DORA LAY During your visit today, we recorded the following information about you: Pulse Blood pressure Weight 80/minute 108/64 54.9 kg Paola Barnesmesha MICHAELS 03/20/2018 8:04 AM Signed REVIEW OF SYSTEMS: General: The patient denies fatigue, denies weight loss, denies weight gain, denies feeling hot, and denies feelings of cold. Eyes: The patient denies glaucoma, NOTES eye injury/surgery, does not wear glasses or contacts. Ear/Nose/Throat: The patient denies allergies, denies hayfever, denies ear infections, and denies bloody noses. Cardiovascular: The patient denies chest pain, denies heart disease, denies high blood pressure,denies cardiac stent, denies prior heart attack, denies irregular heart beat, denies high cholesterol, denies poor circulation, denies heart failure, other cardiac issues, denies claudication, denies cold feet, denies peripheral arterial stent. Respiratory: The patient denies tuberculosis, denies pneumonia, denies frequent cough, denies pulmonary embolism, denies shortness of breath, and denies coughing up blood. Gastrointestinal: The patient NOTES difficulty swallowing, denies acid reflux, NOTES ulcers, denies vomiting, denies jaundice/hepatitis, denies gallbladder problems, NOTES black or tarry stools, denies hemorrhoids, denies bleeding from rectum, denies diverticulitis, denies constipation, denies diarrhea, denies loss of stool control, and denies hernias. Kidney/Bladder: The patient denies kidney stones, denies urine infections, and denies bloody urine. Skin: The patient denies a history of skin cancer, denies bleeding/changing moles, and denies a history of skin rash. Neurologic: The patient denies a history of epilepsy/convulsions, denies headaches, denies head/spinal injuries, and denies stroke/TIA. Psychiatric: The patient denies psychiatric medications, denies depression, and denies voices, denies substance abuse. Endocrine: The patient denies thyroid disorders, denies diabetes, and denies hormonal problems. Hematologic: The patient denies a history of bruising, denies bleeding, and denies anemia, NOTES blood clots. Infections: The patient denies a history of measles and mumps, denies rheumatic fever, and denies sexually transmitted diseases. Musculoskeletal: The patient denies back pain/injury, denies back problems, denies sciatica, denies knee/foot trouble, denies arthritis, or NOTES gout. When was patient's last Mammogram screening? N/A Last Colonoscopy: 2 or 3 years ago Paola Lay MD 03/25/2018 8:23 AM Signed ivelisse Lay MD 03/25/2018 8:23 AM Signed HISTORY AND PHYSICAL Sabina Flores 1940 REFERRING PHYSICIAN: Maura Aguillon DO CHIEF COMPLAINT: Consult (colonoscopy) - GI bleeding HPI: The patient is a 78 year old male referred for endoscopy. Sabina notes the following GI complaints: Sabina denies abdominal pain.. Sabian denies diarrhea. Sabina denies constipation. Sabina denies a change in bowel habits. Sabina notes melena. Sabina underwent EGD with dilatation on February 26 at [facility]. On March 14 noted 1 day history of black tarry stools with blood then mixed within the stool. Sabina denies bright red blood per rectum. Sabina denies hemorrhoids. The patient notes the following upper complaints: Sabina notes a history of progressive dysphagia starting in August. He underwent upper endoscopy on September 21 and was felt to likely have a malignant stricture but biopsy was negative. He is at repeat EGDs and dilatations since that time. He underwent left most recent colonoscopy March 2016 for which he was found to have 3 polyps. The patient had 210 mm and one 5 mm polyps. The proximal ascending colon polyp was tattooed as it was felt to have a subtle broad base. The other 2 polyps were removed and not tattooed. The patient is being seen by me today at the request of Dr. Varun Wang MD for my opinion and advice regarding rectal bleeding. PAST MEDICAL HISTORY Diagnosis Date - ABNORMAL LIVER FUNCTION STUDY 01/11/2005 Alkaline phosphatemia - Body mass index (BMI) less than or equal to 19 in adult 03/28/2017 - COPD (chronic obstructive pulmonary disease) (HCC) 01/13/2013 - DIVERTICULOSIS OF COLON W/O BLEED 01/11/2005 - Diverticulosis of large intestine without hemorrhage 01/11/2005 - Dysphagia 09/18/2017 - Esophageal stricture 01/11/2005 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 Assessment: Mesenteric venous thrombosis versus PUD versus pancreatitis versus esophageal perforation LUQ/midepigastric burning abdominal pain CT imaging showed superior mesenteric venous thrombosis Hx of pancreatitis, lipase 116 (11/29/17) Recent esophageal dilatation Plan: Consult vascular medicine, hematology Start heparin nomogram Start cipro/flagyl Continue famotidine Pain management - tylenol (mild), tramadol (moderate) Zofran prn nausea LR IVF Diet NPO KUB AM Lactate AM - Tobacco use disorder 01/11/2005 - Unspecified asthma(493.90) 03/03/2011 pt not aware PAST SURGICAL HISTORY Procedure Laterality Date - COLONOSCOP W/ OR W/O BRSH SPEC 2003 Colonoscopy - COLONOSCOP W/ OR W/O BRSH SPEC 02/20/2013 Colonoscopy - COLONOSCOP W/ OR W/O BRSH SPEC 03/30/16 Colonoscopy - EGD BIOPSY SINGLE/MULTIPLE 09/21/2017 - EGD W/O OR W/BRUSH/WASH 2003 EGD - EGD W/O OR W/BRUSH/WASH 02/20/13 EGD - ESOPH W/O BRS SPEC BALLOON DIL 12-1-2003 Esophageal dilatation - LARYNGOSCOPY W/ BIOPSY 02/06/2014 - PARTIAL GASTRECTOMY 1970 bleeding ulcer - PAST SURGICAL HISTORY OF Left 08/29/2016 Floor of mouth resection, sialadochoplasty Current Outpatient Prescriptions: pantoprazole DR (PROTONIX) 40 mg tablet Take 1 tablet by mouth once daily. aspirin 81 mg chewable tablet Take 81 mg by mouth once daily. allopurinol (ZYLOPRIM) 300 mg tablet Take 1 tablet by mouth once daily. This can be crushed. hydroxyurea (HYDREA) 100 mg/mL oral liquid Take 5 mL by mouth once daily. Cholecalciferol, Vitamin D3, (VITAMIN D-3) 1,000 unit chew Take 1 tablet by mouth once daily. Chlorhexidine Gluconate (PERIDEX) 0.12 % solution Take 15 mL by mouth once daily. Swish for 30 seconds and then spit out. tiotropium-olodaterol (STIOLTO RESPIMAT) 2.5-2.5 mcg/actuation mist Inhale 2 Puffs as instructed once daily. peg 3350-Electrolytes (GOLYTELY) 236-22.74-6.74 -5.86 gram suspension Take 4,000 mL by mouth one time only for 1 dose. Refer to printed prep instructions from your doctor. warfarin (COUMADIN) 2.5 mg tablet Take 2.5 mg by mouth daily as directed. 2.5 mg / and 5 mg all other days diltiazem CD (CARDIZEM CD) 120 mg 24 hr capsule Take 1 capsule by mouth twice daily. (Patient not taking: Reported on 03/14/2018 ) No current facility-administered medications for this visit. ALLERGIES: Doxycycline PERSONAL HISTORY: Social History Marital status: Spouse name: Years of education: Number of children: Social History Main Topics Smoking status: Former Smoker Packs/day: 2.00 Years: 52.00 Types: Cigarettes Quit date: 09/01/2013 Smokeless tobacco: Never Used Alcohol use: Yes 6.0 oz/week Cans of Beer (12oz): 4 per week Comment: hasn't drank since early 2017 Drug use: No Sexual activity: No FAMILY HISTORY: FAMILY HISTORY Problem Relation Age of Onset - Cancer Brother lung cancer - Cancer Brother bone cancer - Cancer Brother brain tumor or cancer - Coronary Artery Disease Father age 64, [place] - None Mother age 95 REVIEW OF SYMPTOMS: The review of systems data was entered by the nurse and reviewed by ms Nursing Notes: Paola Zavaleta LPN 03/20/2018 8:04 AM Signed REVIEW OF SYSTEMS: General: The patient denies fatigue, denies weight loss, denies weight gain, denies feeling hot, and denies feelings of cold. Eyes: The patient denies glaucoma, NOTES eye injury/surgery, does not wear glasses or contacts. Ear/Nose/Throat: The patient denies allergies, denies hayfever, denies ear infections, and denies bloody noses. Cardiovascular: The patient denies chest pain, denies heart disease, denies high blood pressure,denies cardiac stent, denies prior heart attack, denies irregular heart beat, denies high cholesterol, denies poor circulation, denies heart failure, other cardiac issues, denies claudication, denies cold feet, denies peripheral arterial stent. Respiratory: The patient denies tuberculosis, denies pneumonia, denies frequent cough, denies pulmonary embolism, denies shortness of breath, and denies coughing up blood. Gastrointestinal: The patient NOTES difficulty swallowing, denies acid reflux, NOTES ulcers, denies vomiting, denies jaundice/hepatitis, denies gallbladder problems, NOTES black or tarry stools, denies hemorrhoids, denies bleeding from rectum, denies diverticulitis, denies constipation, denies diarrhea, denies loss of stool control, and denies hernias. Kidney/Bladder: The patient denies kidney stones, denies urine infections, and denies bloody urine. Skin: The patient denies a history of skin cancer, denies bleeding/changing moles, and denies a history of skin rash. Neurologic: The patient denies a history of epilepsy/convulsions, denies headaches, denies head/spinal injuries, and denies stroke/TIA. Psychiatric: The patient denies psychiatric medications, denies depression, and denies voices, denies substance abuse. Endocrine: The patient denies thyroid disorders, denies diabetes, and denies hormonal problems. Hematologic: The patient denies a history of bruising, denies bleeding, and denies anemia, NOTES blood clots. Infections: The patient denies a history of measles and mumps, denies rheumatic fever, and denies sexually transmitted diseases. Musculoskeletal: The patient denies back pain/injury, denies back problems, denies sciatica, denies knee/foot trouble, denies arthritis, or NOTES gout. When was patient's last Mammogram screening? N/A Last Colonoscopy: 2 or 3 years ago Paola Zavaleta LPN PHYSICAL EXAMINATION: General: The patient is 78 year old male, well nourished, well hydrated in no acute distress. The patient is oriented to time, place, and person. VITALS: Blood pressure 108/64, pulse 80, weight 54.9 kg (121 lb). Body mass index is 16.88 kg/m?. HEENT: Normal cephalic, ataumatic, pupils are equally round, sclera are anicteric, mucous membranes are moist, oropharynx is clear. Neck has no masses, asymmetry or lymphadenopathy. Thyroid is unremarkable. Respiratory: Clear to auscultation and percussion. Normal respiratory excursion and pattern. Cardiac: Examination is regular rate and rhythm. No murmurs rubs or additional cardiac tones Abdominal exam: Soft, nontender, with no palpable masses. No hepatosplenomegaly. No palpable hernias. Rectal exam: exam deferred Extremities: no clubbing, cyanosis or edema. No adenopathy. Other: LABORATORY VALUES: As Noted RADIOLOGIC STUDIES: As Noted Assessment IMPRESSION: Rectal bleeding, history of colon polyps, history of upper endoscopy with melena post-dilatation PLAN: I plan to perform upper and lower endoscopy. We discussed the risks and benefits of the planned endoscopy. I have informed the patient that complications can occur including failure to complete the endoscopy and perforation. The patient had the opportunity to ask questions concerning the planned endoscopy. My staff has also explained the procedure to the patient in understandable terms and has given the patient printed material concerning the procedure. The patient freely consents to surgery. I plan to use golytely bowel preparation for endoscopy I plan for monitored anesthetic care. Diagnoses: (D47.3) Thrombocytosis (HCC) (primary encounter diagnosis) (K22.2) Esophageal stricture (J44.9) Chronic obstructive pulmonary disease, unspecified COPD type (HCC) (K92.2) Gastrointestinal hemorrhage, unspecified gastrointestinal hemorrhage type My findings have been communicated to Dr. Varun Wang MD via shared medical record. This note will be forwarded to Dr. Varun Wang MD. Return to Clinic: The patient is instructed to follow-up with me after the testing has been completed. Dora Lay MD Referring Provider: MAURA AGUILLON [[id number]] Allergies As of Date: 03/20/2018 Noted Allergy Reaction DOXYCYCLINE 01/07/2018 14 - Other: See Comments Comments: pancreatitis Date Reviewed: 03/20/2018 Reviewed by: Dora Lay - Fully Assessed Reason for Visit: Consult [173] Cmt: colonoscopy Primary Visit Diagnosis:Thrombocytosis (HCC) [D47.3] Other Visit Diagnoses:Esophageal stricture [K22.2] Chronic obstructive pulmonary disease, unspecified COPD type (HCC) [J44.9] Gastrointestinal hemorrhage, unspecified gastrointestinal hemorrhage type [K92.2] Order(s):RICHA PT ED DIGESTIVE DISEASES [] Order #: [id number]: 1 [] peg 3350-Electrolytes (GOLYTELY) 236-22.74-6.74 -5.86 gram suspensionTake 4,000 mL by mouth one time only for 1 dose. Refer to printed prep instructions from your doctor.Disp: 1 BottleRfl: 0 EGD [[id number]] Order #: [id number] FUTURE COLONOSCOPY - DIAGNOSTIC [[id number]] Order #: [id number] FUTURE RICHA PT ED DIGESTIVE DISEASES [] Order #: [id number]. #:[id number] Prescriptions as of 03/20/2018 Sig: PANTOPRAZOLE 40 MG TABLET,DEL* Take 1 tablet by mouth once d* ASPIRIN 81 MG CHEWABLE TABLET Take 81 mg by mouth once cristiana* ALLOPURINOL 300 MG TABLET Take 1 tablet by mouth once d* HYDROXYUREA 100 MG/ML ORAL LI* Take 5 mL by mouth once daily. CHOLECALCIFEROL (VITAMIN D3) * Take 1 tablet by mouth once d* CHLORHEXIDINE GLUCONATE 0.12 * Take 15 mL by mouth once cristiana* TIOTROPIUM 2.5 MCG-OLODATEROL* Inhale 2 Puffs as instructed * PEG 3350-ELECTROLYTES 236 GRA* Take 4,000 mL by mouth one ti* WARFARIN 2.5 MG TABLET Take 2.5 mg by mouth daily as* DILTIAZEM SR 120 MG 24 HR CAP Take 1 capsule by mouth twice* Patient not taking: Reported on 03/14/2018 Problem List As Of Date 03/20/2018 Noted Resolved Iron deficiency anemia [D50.9] INVALID FOR* Priority: Severe Peptic ulcer, unspecified site, unspecified as *INVALID FOR*10/30/2011 Esophageal stricture [K22.2] INVALID FOR* Priority: Moderate Diverticulosis of large intestine without hemor*INVALID FOR*01/24/2018 Nonspecific abnormal results of liver function *INVALID FOR*03/31/2011 More... Personal history of alcoholism [F10.21] INVALID FOR*02/12/2014 Tobacco use disorder [F17.200] INVALID FOR*02/21/2016 Interstitial lung disease (HCC) [J84.9] INVALID FOR* Lung nodule [R91.1] INVALID FOR*04/14/2013 More... Asthma [J45.909] INVALID FOR* COPD (chronic obstructive pulmonary disease) (H*INVALID FOR* Priority: C More... 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 Thrombocytosis (HCC) [D47.3] INVALID FOR* Priority: Severe Elevated protime [R79.1] INVALID FOR*01/24/2018 Elevated bilirubin [R17] INVALID FOR* Shortness of breath [R06.02] INVALID FOR*09/22/2017 Priority: A More... Body mass index (BMI) less than or equal to 19 *INVALID FOR* Malignant neoplasm of larynx (HCC) [C32.9] INVALID FOR* More... 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 Vitamin D deficiency [E55.9] INVALID FOR* Hypoalbuminemia [E88.09] INVALID FOR* Prolonged INR [R79.1] INVALID FOR*09/22/2017 More... 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 Essential hypertension [I10] INVALID FOR* Priority: D Acute gout of multiple sites [M10.9] INVALID FOR* Gastrointestinal hemorrhage [K92.2] INVALID FOR* Hematemesis [K92.0] INVALID FOR* More... Acute blood loss anemia [D62] INVALID FOR* GI bleed [K92.2] INVALID FOR* More... Esophageal tear [S11.21XA] INVALID FOR* More... Visit Notes: >> Paola Zavaleta LPN SunMar 20, 2018 8:03 AM Status: Signed REVIEW OF SYSTEMS: General: The patient denies fatigue, denies weight loss, denies weight gain, denies feeling hot, and denies feelings of cold. Eyes: The patient denies glaucoma, NOTES eye injury/surgery, does not wear glasses or contacts. Ear/Nose/Throat: The patient denies allergies, denies hayfever, denies ear infections, and denies bloody noses. Cardiovascular: The patient denies chest pain, denies heart disease, denies high blood pressure,denies cardiac stent, denies prior heart attack, denies irregular heart beat, denies high cholesterol, denies poor circulation, denies heart failure, other cardiac issues, denies claudication, denies cold feet, denies peripheral arterial stent. Respiratory: The patient denies tuberculosis, denies pneumonia, denies frequent cough, denies pulmonary embolism, denies shortness of breath, and denies coughing up blood. Gastrointestinal: The patient NOTES difficulty swallowing, denies acid reflux, NOTES ulcers, denies vomiting, denies jaundice/hepatitis, denies gallbladder problems, NOTES black or tarry stools, denies hemorrhoids, denies bleeding from rectum, denies diverticulitis, denies constipation, denies diarrhea, denies loss of stool control, and denies hernias. Kidney/Bladder: The patient denies kidney stones, denies urine infections, and denies bloody urine. Skin: The patient denies a history of skin cancer, denies bleeding/changing moles, and denies a history of skin rash. Neurologic: The patient denies a history of epilepsy/convulsions, denies headaches, denies head/spinal injuries, and denies stroke/TIA. Psychiatric: The patient denies psychiatric medications, denies depression, and denies voices, denies substance abuse. Endocrine: The patient denies thyroid disorders, denies diabetes, and denies hormonal problems. Hematologic: The patient denies a history of bruising, denies bleeding, and denies anemia, NOTES blood clots. Infections: The patient denies a history of measles and mumps, denies rheumatic fever, and denies sexually transmitted diseases. Musculoskeletal: The patient denies back pain/injury, denies back problems, denies sciatica, denies knee/foot trouble, denies arthritis, or NOTES gout. When was patient's last Mammogram screening? N/A Last Colonoscopy: 2 or 3 years ago Paola Zavaleta [employer] Prescriptions ordered this encounter Disp Refills Start End PEG 3350-ELECTROLYTES 236 GRAM-22.74* 1 Byron* 0 03/20/2018 03/20/2018 Route: ORAL Sig: Take 4,000 mL by mouth one time only for 1 dose. Refer to printed prep instructions from your doctor. Follow-up and Disposition History Recorded Encounter Status:Closed by DORA LAY MD on 03/25/18 HOSP Observed: 03/20/2018 Status: COMPLETED Source: [facility] 12:00 AM CLINIC OTHER CAMPUS REPOSITORY Patient:Sabina Flores MRN: <[id number]> Height:5' 11(1.803 m) Weight:122 lb (55.339 kg) Outpatient Medications as of 03/27/18: pantoprazole DR (PROTONIX) 40 mg tablet aspirin 81 mg chewable tablet warfarin (COUMADIN) 2.5 mg tablet diltiazem CD (CARDIZEM CD) 120 mg 24 hr capsule allopurinol (ZYLOPRIM) 300 mg tablet hydroxyurea (HYDREA) 100 mg/mL oral liquid Cholecalciferol, Vitamin D3, (VITAMIN D-3) 1,000 unit chew Chlorhexidine Gluconate (PERIDEX) 0.12 % solution tiotropium-olodaterol (STIOLTO RESPIMAT) 2.5-2.5 mcg/actuation mist Admission/Clinic Administered Medications as of 03/27/18: NaCl 0.9% iv infusion Problem List: Iron deficiency anemia [D50.9] Esophageal stricture [K22.2] Interstitial lung disease (HCC) [J84.9] Asthma [J45.909] COPD (chronic obstructive pulmonary disease) (HCC) [J44.9] Adenomatous colon polyp [D12.6] Carcinoma in situ of larynx [D02.0] Back pain, chronic [M54.9, G89.29] History of laryngeal cancer [Z85.21] Hypoxemia [R09.02] Severe protein-calorie malnutrition (HCC) [E43] Thrombocytosis (HCC) [D47.3] Elevated bilirubin [R17] Body mass index (BMI) less than or equal to 19 in adult [Z68.1] Malignant neoplasm of larynx (HCC) [C32.9] Dysphagia [R13.10] History of peptic ulcer [Z87.11] 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] Former tobacco use [Z87.891] S/P partial gastrectomy [Z90.3] Leukocytosis [D72.829] Vitamin D deficiency [E55.9] Hypoalbuminemia [E88.09] Subclinical hypothyroidism [E03.9] Low serum alkaline phosphatase [R74.8] 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 NAME: SABINA FLORES CLINIC NO: [id number] DATE OF SERVICE: 03/25/2018 Chief Complaint Oncologic surveillance. History of Present Illness Mr. Flores returns in followup. He is a patient with a history of a left floor of mouth resection, high grade keratinizing squamous dysplasia present. Carcinoma in situ had been resected and margins were negative on final resection. 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 This was treated with nonoperative chemoradiation therapy. The patient has overall continued to do quite well. Examination Age appropriate, no acute distress. Voice is excellent, speech is excellent. Cervical examination reveals no new masses to inspection or palpation. Oral cavity and oropharyngeal examination reveals no lesions. Flexible fiberoptic endoscopy is performed and dictated as a separate note. Medical Decision Making Diagnosis 1. No evidence of disease. 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 2. 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 3. Dysphagia. Treatment Plan 1. Continue oncologic surveillance. 2. Flexible fiberoptic endoscopy in the office today. Procedure Note Flexible fiberoptic endoscopy Indications: Patient with a history of oropharyngeal cancer, requiring further evaluation. He has a hyperactive gag reflex precluding indirect laryngoscopy. Procedure: The patient was decongested and anesthetized in the right nasal cavity. After appropriate time had elapsed for vasoconstriction and anesthesia, the fiberoptic scope was introduced into the right nasal cavity and advanced posteriorly. No lesions seen in the nasopharynx. Further advancement to the level of the larynx revealed normal true vocal cord movement. No hypopharyngeal nor endolaryngeal lesions appreciated. MARCO A GIRALDO M.D. JS/079 Audio #: [id number] Date Dictated: 03/25/2018 15:45:22 Date Typed: 03/27/2018 11:05:01 Date Revised: Aubree Ji 03/25/2018 3:05 PM Signed Tobacco Use: 2 packs/day, for 52 years. Quit 09/01/2013. Types: Cigarettes Was smoking cessation packet given? N/A - Patient is a non- smoker or quit >1 year ago. Was a referral initiated?N/A Patient is a non-smoker Progress Notes ([facility]): Angela Norton RN, RN 03/20/2018 2:37 PM Signed TRANSITION CARE MANAGEMENT (TCM) FOLLOW-UP NOTE Summary: hospital discharge 03/09 UGI bleed Completed oncology and Gen surgery appts Concerns: Spoke with . She will give patient message to call TCM line. TCM contact number provided. Scrap Preparer plan for next outreach: Will f/u pending return call from patient otherwise No further follow up needed at this time Signature Angela Norton RN March 20, 2018 ANDER Observed: 03/20/2018 Status: COMPLETED Source: [place] 12:00 AM [facility] REPOSITORY Patient Outreach (INTMWS) SABINA FLORES ([id number]) 1940 M Date Time Provider Department 03/20/18 ANGELA NORTON (RN) INTMWS During your visit today, we recorded the following information about you: Angela Norton RN, RN 03/20/2018 2:37 PM Signed TRANSITION CARE MANAGEMENT (TCM) FOLLOW-UP NOTE Summary: hospital discharge 03/09 UGI bleed Completed oncology and Gen surgery appts Concerns: Spoke with . She will give patient message to call TCM line. TCM contact number provided. Scrap Preparer plan for next outreach: Will f/u pending return call from patient otherwise No further follow up needed at this time Signature Angela Norton RN March 20, 2018 Allergies As of Date: 03/20/2018 Noted Allergy Reaction DOXYCYCLINE 01/07/2018 14 - Other: See Comments Comments: pancreatitis Date Reviewed: 03/20/2018 Reviewed by: Dora Lay - Fully Assessed Reason for Visit: Transition Of Care [8826] Cmt: TCM: follow up Prescriptions as of 03/20/2018 Sig: PEG 3350-ELECTROLYTES 236 GRA* Take 4,000 mL by mouth one ti* PANTOPRAZOLE 40 MG TABLET,DEL* Take 1 tablet by mouth once d* ASPIRIN 81 MG CHEWABLE TABLET Take 81 mg by mouth once cristiana* WARFARIN 2.5 MG TABLET Take 2.5 mg by mouth daily as* DILTIAZEM SR 120 MG 24 HR CAP Take 1 capsule by mouth twice* Patient not taking: Reported on 03/14/2018 ALLOPURINOL 300 MG TABLET Take 1 tablet by mouth once d* HYDROXYUREA 100 MG/ML ORAL LI* Take 5 mL by mouth once daily. CHOLECALCIFEROL (VITAMIN D3) * Take 1 tablet by mouth once d* CHLORHEXIDINE GLUCONATE 0.12 * Take 15 mL by mouth once cristiana* TIOTROPIUM 2.5 MCG-OLODATEROL* Inhale 2 Puffs as instructed * Problem List As Of Date 03/20/2018 Noted Resolved Iron deficiency anemia [D50.9] INVALID FOR* Priority: Severe Peptic ulcer, unspecified site, unspecified as *INVALID FOR*10/30/2011 Esophageal stricture [K22.2] INVALID FOR* Priority: Moderate Diverticulosis of large intestine without hemor*INVALID FOR*01/24/2018 Nonspecific abnormal results of liver function *INVALID FOR*03/31/2011 More... Personal history of alcoholism [F10.21] INVALID FOR*02/12/2014 Tobacco use disorder [F17.200] INVALID FOR*02/21/2016 Interstitial lung disease (HCC) [J84.9] INVALID FOR* Lung nodule [R91.1] INVALID FOR*04/14/2013 More... Asthma [J45.909] INVALID FOR* COPD (chronic obstructive pulmonary disease) (H*INVALID FOR* Priority: C More... 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 Thrombocytosis (HCC) [D47.3] INVALID FOR* Priority: Severe Elevated protime [R79.1] INVALID FOR*01/24/2018 Elevated bilirubin [R17] INVALID FOR* Shortness of breath [R06.02] INVALID FOR*09/22/2017 Priority: A More... Body mass index (BMI) less than or equal to 19 *INVALID FOR* Malignant neoplasm of larynx (HCC) [C32.9] INVALID FOR* More... 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 Vitamin D deficiency [E55.9] INVALID FOR* Hypoalbuminemia [E88.09] INVALID FOR* Prolonged INR [R79.1] INVALID FOR*09/22/2017 More... 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 Essential hypertension [I10] INVALID FOR* Priority: D Acute gout of multiple sites [M10.9] INVALID FOR* Gastrointestinal hemorrhage [K92.2] INVALID FOR* Hematemesis [K92.0] INVALID FOR* More... Acute blood loss anemia [D62] INVALID FOR* GI bleed [K92.2] INVALID FOR* More... Esophageal tear [S11.21XA] INVALID FOR* More... Encounter Status:Closed by ANGELA NORTON on 03/20/18 PROGRESS Observed: 03/19/2018 Status: COMPLETED Source: [place] 1:11 PM [facility] [place] REPOSITORY O ID: [id number] Author: Aubree Guerrero Pharmd Service: (none) Author Type: Pharmacist Type: Progress Notes Filed: 03/19/2018 1:22 PM Note Text: TRANSITION CARE MANAGEMENT (TCM) PHARMACY FOLLOW-UP Provider Action/FYI: ? Patient reported he stopped taking his diltiazem because he read it can exacerbate his gout. Patient states his gout went away when he discontinued the diltiazem. His systolic blood pressure has been running around 115 since he's been off of the diltiazem. Follow up call with patient post discharge, spoke to patient. Patient identified by name and . See post-discharge summary from contact on 03/11/2018. Patient Concerns: No concerns at this time. Patient was taken off of coumadin by his produce service team member. Patient reported he stopped taking his diltiazem because he read it can exacerbate his gout. Patient states his gout went away when he discontinued the diltiazem. His systolic blood pressure has been running around 115 since he's been off of the diltiazem. Medication List Medication Directions Comments Action/Plan allopurinol (ZYLOPRIM) 300 mg tablet Take 1 tablet by mouth once daily. This can be crushed. aspirin 81 mg chewable tablet Take 81 mg by mouth once daily. Chlorhexidine Gluconate (PERIDEX) 0.12 % solution Take 15 mL by mouth once daily. Swish for 30 seconds and then spit out. Cholecalciferol, Vitamin D3, (VITAMIN D-3) 1,000 unit chew Take 1 tablet by mouth once daily. diltiazem CD (CARDIZEM CD) 120 mg 24 hr capsule Take 1 capsule by mouth twice daily. Patient not taking: Reported on 03/14/2018 Stopped taking because he read it can exacerbate his gout - patient stated his gout went away when he stopped taking diltiazem SBP has been running in the 115s without taking diltiazem Discontinued: 03/14/2018 9:50 AM D/c by hematology - recommendation to hold warfarin until receiving colonoscopy and determination of presence of mesenteric vein thrombosis enteric contrast (will be provided with radiology test) For CT CHESTABD/PEL W IVCON Routine order Administer, As Directed One Time Only, via Oral, Rectal, both Oral and Rectal, Enteric Tube, Stoma or Indwelling Catheter, Enteric Contrast as designated per enteric contrast guidelines hydroxyurea (HYDREA) 100 mg/mL oral liquid Take 5 mL by mouth once daily. iv contrast (will be provided with radiology test) CT Chest ABD/PEL-Inject, intravenously, once for 1 dose.No IV access, insert saline lock prior to the beginning of sedation, infusion, injection of imaging exam. Discontinue saline lock post exam. If Pt. has a central line or IVAD, may access for administration according to line specific nursing protocol. Once exam is complete flush line and de-access according to line specific nursing protocol in the CT contrast administration guidelines link. pantoprazole DR (PROTONIX) 40 mg tablet Take 1 tablet by mouth once daily. tiotropium-olodaterol (STIOLTO RESPIMAT) 2.5-2.5 mcg/actuation mist Inhale 2 Puffs as instructed once daily. warfarin (COUMADIN) 2.5 mg tablet Take 2.5 mg by mouth daily as directed. 2.5 mg / and 5 mg all other days Hematology recommended to hold warfarin until receiving colonoscopy and determination of presence of mesenteric vein thrombosis Follow Up Plan: No further follow up needed at this time Appointments for Next 60 Days Date Time Provider Location Dept Phone 03/20/2018 8:00 AM DORA LAY [facility] [phone] 03/25/2018 3:30 PM MARCO A GIRALDO [facility] [phone] 03/28/2018 10:[address] PREP [facility] [phone] 03/28/2018 11:[address] [facility] (I-STAT) [facility] [phone] 04/05/2018 10:15 AM REGISTRATION [facility] J/S d [phone] 04/05/2018 10:30 AM JOSIE MUNSON [facility] J/S d [phone] 04/11/2018 8:00 AM [facility] [phone] 05/07/2018 9:20 AM VARUN WANG [facility] [phone] 05/09/2018 4:00 PM [facility] [phone] 05/09/2018 4:20 PM MAURA AGUILLON [facility] [phone] Time spent on patient: 0-10 minutes Aubree Guerrero, PharmD March 19, 2018 1:11 PM PA[facility] Observed: 03/19/2018 Status: COMPLETED Source: [place] 12:00 AM [facility] REPOSITORY Patient Outreach (PHRXRF) SABINA FLORES ([id number]) 1940 M Date Time Provider Department 03/19/18 TREVOR PHARMD, AUBREEPHRXRF During your visit today, we recorded the following information about you: Aubree Guerrero, PharmD 03/19/2018 1:22 PM Signed TRANSITION CARE MANAGEMENT (TCM) PHARMACY FOLLOW-UP Provider Action/FYI: ? Patient reported he stopped taking his diltiazem because he read it can exacerbate his gout. Patient states his gout went away when he discontinued the diltiazem. His systolic blood pressure has been running around 115 since he's been off of the diltiazem. Follow up call with patient post discharge, spoke to patient. Patient identified by name and . See post-discharge summary from contact on 03/11/2018. Patient Concerns: No concerns at this time. Patient was taken off of coumadin by his produce service team member. Patient reported he stopped taking his diltiazem because he read it can exacerbate his gout. Patient states his gout went away when he discontinued the diltiazem. His systolic blood pressure has been running around 115 since he's been off of the diltiazem. Medication List Medication Directions Comments Action/Plan allopurinol (ZYLOPRIM) 300 mg tablet Take 1 tablet by mouth once daily. This can be crushed. aspirin 81 mg chewable tablet Take 81 mg by mouth once daily. Chlorhexidine Gluconate (PERIDEX) 0.12 % solution Take 15 mL by mouth once daily. Swish for 30 seconds and then spit out. Cholecalciferol, Vitamin D3, (VITAMIN D-3) 1,000 unit chew Take 1 tablet by mouth once daily. diltiazem CD (CARDIZEM CD) 120 mg 24 hr capsule Take 1 capsule by mouth twice daily. Patient not taking: Reported on 03/14/2018 Stopped taking because he read it can exacerbate his gout - patient stated his gout went away when he stopped taking diltiazem SBP has been running in the 115s without taking diltiazem Discontinued: 03/14/2018 9:50 AM D/c by hematology - recommendation to hold warfarin until receiving colonoscopy and determination of presence of mesenteric vein thrombosis enteric contrast (will be provided with radiology test) For CT CHESTABD/PEL W IVCON Routine order Administer, As Directed One Time Only, via Oral, Rectal, both Oral and Rectal, Enteric Tube, Stoma or Indwelling Catheter, Enteric Contrast as designated per enteric contrast guidelines hydroxyurea (HYDREA) 100 mg/mL oral liquid Take 5 mL by mouth once daily. iv contrast (will be provided with radiology test) CT Chest ABD/PEL-Inject, intravenously, once for 1 dose.No IV access, insert saline lock prior to the beginning of sedation, infusion, injection of imaging exam. Discontinue saline lock post exam. If Pt. has a central line or IVAD, may access for administration according to line specific nursing protocol. Once exam is complete flush line and de-access according to line specific nursing protocol in the CT contrast administration guidelines link. pantoprazole DR (PROTONIX) 40 mg tablet Take 1 tablet by mouth once daily. tiotropium-olodaterol (STIOLTO RESPIMAT) 2.5-2.5 mcg/actuation mist Inhale 2 Puffs as instructed once daily. warfarin (COUMADIN) 2.5 mg tablet Take 2.5 mg by mouth daily as directed. 2.5 mg / and 5 mg all other days Hematology recommended to hold warfarin until receiving colonoscopy and determination of presence of mesenteric vein thrombosis Follow Up Plan: No further follow up needed at this time Appointments for Next 60 Days Date Time Provider Location Dept Phone 03/20/2018 8:00 AM DORA LAY [facility] [phone] 03/25/2018 3:30 PM MARCO A GIRALDO [facility] [phone] 03/28/2018 10:[address] PREP [facility] [phone] 03/28/2018 11:[address] [facility] (I-STAT) [facility] [phone] 04/05/2018 10:15 AM REGISTRATION CHELI Pedersen/Patti Gray [phone] 04/05/2018 10:30 AM JOSIE MUNSON/S Bld [phone] 04/11/2018 8:00 AM LAB [facility] [phone] 05/07/2018 9:20 AM [facility] [phone] 05/09/2018 4:00 PM [facility] [phone] 05/09/2018 4:20 PM MAURA AGUILLON [facility] [phone] Time spent on patient: 0-10 minutes Aubree Guerrero, PharmD March 19, 2018 1:11 PM Allergies As of Date: 03/19/2018 Noted Allergy Reaction DOXYCYCLINE 01/07/2018 14 - Other: See Comments Comments: pancreatitis Date Reviewed: 03/14/2018 Reviewed by: Opal Shen (Metal Hardener) XENIA Ceballos - Fully Assessed Reason for Visit: Transition Of Care [4074] Cmt: Pharmacy TCM Follow-up Prescriptions as of 03/19/2018 Sig: PANTOPRAZOLE 40 MG TABLET,DEL* Take 1 tablet by mouth once d* ASPIRIN 81 MG CHEWABLE TABLET Take 81 mg by mouth once cristinaa* WARFARIN 2.5 MG TABLET Take 2.5 mg by mouth daily as* DILTIAZEM SR 120 MG 24 HR CAP Take 1 capsule by mouth twice* Patient not taking: Reported on 03/14/2018 ALLOPURINOL 300 MG TABLET Take 1 tablet by mouth once d* HYDROXYUREA 100 MG/ML ORAL LI* Take 5 mL by mouth once daily. CHOLECALCIFEROL (VITAMIN D3) * Take 1 tablet by mouth once d* CHLORHEXIDINE GLUCONATE 0.12 * Take 15 mL by mouth once cristiana* TIOTROPIUM 2.5 MCG-OLODATEROL* Inhale 2 Puffs as instructed * Problem List As Of Date 03/19/2018 Noted Resolved Iron deficiency anemia [D50.9] INVALID FOR* Priority: Severe Peptic ulcer, unspecified site, unspecified as *INVALID FOR*10/30/2011 Esophageal stricture [K22.2] INVALID FOR* Priority: Moderate Diverticulosis of large intestine without hemor*INVALID FOR*01/24/2018 Nonspecific abnormal results of liver function *INVALID FOR*03/31/2011 More... Personal history of alcoholism [F10.21] INVALID FOR*02/12/2014 Tobacco use disorder [F17.200] INVALID FOR*02/21/2016 Interstitial lung disease (HCC) [J84.9] INVALID FOR* Lung nodule [R91.1] INVALID FOR*04/14/2013 More... Asthma [J45.909] INVALID FOR* COPD (chronic obstructive pulmonary disease) (H*INVALID FOR* Priority: C More... 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 Thrombocytosis (HCC) [D47.3] INVALID FOR* Priority: Severe Elevated protime [R79.1] INVALID FOR*01/24/2018 Elevated bilirubin [R17] INVALID FOR* Shortness of breath [R06.02] INVALID FOR*09/22/2017 Priority: A More... Body mass index (BMI) less than or equal to 19 *INVALID FOR* Malignant neoplasm of larynx (HCC) [C32.9] INVALID FOR* More... 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 Vitamin D deficiency [E55.9] INVALID FOR* Hypoalbuminemia [E88.09] INVALID FOR* Prolonged INR [R79.1] INVALID FOR*09/22/2017 More... 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 Essential hypertension [I10] INVALID FOR* Priority: D Acute gout of multiple sites [M10.9] INVALID FOR* Gastrointestinal hemorrhage [K92.2] INVALID FOR* Hematemesis [K92.0] INVALID FOR* More... Acute blood loss anemia [D62] INVALID FOR* Follow-up and Disposition History Recorded Encounter Status:Closed by TREVOR (PHARMACIST)AUBREE on 03/19/18 MARTYOVSChris Observed: 03/14/2018 Status: COMPLETED Source: [place] 9:10 AM [facility] REPOSITORY Visit (SP) Office (HEMTROY) SABINA FLORES ([id number]) 1940 M Date Time Provider Department 03/14/18 9:10 AM MAURA AGUILLON During your visit today, we recorded the following information about you: Temperature Pulse Blood pressure Weight 97.3 degrees 93/minute 119/64 55.3 kg Opal Ceballos LPN, LPN 03/14/2018 9:21 AM Signed Est pt, discuss recent lab results. 3 month f/u. Recent Discharge from [facility], GI bleed. Pt. Wants to discuss anticoagulation medications before he takes again. XENIA Patiño DO 03/14/2018 10:06 AM Signed Diagnoses: 1) JAK2 positive MPN. 2) Thrombocytosis. HPI: The patient is a 78-year-old male has a past medical history significant for COPD, GERD with previous peptic ulcer disease. He also has a history of head and neck cancer status post radiation and resection. History of esophageal dilation. He presented to the emergency department at [facility] in August with progressive dysphagia. Patient had a CT scan the abdomen and pelvis on 09/13/2017. Emphysematous changes were noted in the lung bases. There was a small amount of scarring in the left lung base. There was decreased attenuation of liver consistent with steatosis. Moderate splenomegaly was observed. No dimensions were rendered. There was heterogeneous enhancement of the spleen which was likely due to arterial phase of the exam. Pancreas was normal. Subsequent CT scan of the abdomen and pelvis when he was in emergency room on 09/23/2017 showed that there were new small bilateral pleural effusions, trace pericardial effusion which was new compared to the prior CT and again moderate splenomegaly with calcified splenic granulomas noted area no dimensions on the spleen were rendered. Review of previous CBCs available in the [facility] system indicate in October 2016 patient had a white count of 21,000. Differential was not performed. The hemoglobin was 13.8 g/dL and the total red blood cell count was 7,090,000/dL. Platelet count 805,000. [facility] he underwent an EGD on 09/21. 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 Biopsies however showed no evidence of malignancy. Stricture was attributed to previous radiation treatment. He was seen by hematology inpatient due to elevated white count, red blood cell count and platelet count. Molecular studies for myeloproliferative disorders were sent. JAK2 was positive. CT chest 11/29/2017: Once again, there is diffuse emphysematous changes. Stable area of scarring in the posterior aspect of the right upper lobe. There is a 1.7 cm by 1.2 cm nodular density adjacent to the descending thoracic aorta at the left lung base as seen on axial image #75. A similar appearing pleural-based nodule is seen in the posteromedial aspect of the left lower lobe measuring 1.7 cm. These were not seen on prior study due to the presence of the pleural effusions. Correlation with a PET scan is recommended. The previously seen pleural effusions have resolved. Normal heart and pericardium. Normal mediastinum. Enlarged right hilar lymph node measuring 2.4 cm. Normal enhanced pulmonary arteries. There is atherosclerotic calcification of the aortic arch with tortuosity and elongation of the aortic arch and descending thoracic aorta. Increased thoracic kyphosis. There is no demonstrated abnormality of the visualized upper abdomen. IMPRESSION: Diffuse emphysematous changes. Stable right hilar node enlargement. There are 2 noncalcified nodular densities in the left lower lobe as described. Correlation with a PET scan is recommended. CT A/P 11/29/2017: The previously seen small bilateral pleural effusions have resolved. Mild increased markings at the lung bases suggestive of scarring and/or atelectasis. There is a 1.1 cm pleural-based nodular density along the posterior medial aspect of the left lower lobe. This may represent scarring. Follow-up is recommended. Coronary artery calcification. Small pericardial effusion. Dilated intrahepatic biliary ducts. Slightly distended gallbladder. Dilated common bile duct. There is moderate splenomegaly. Stable calcified splenic granulomas. There is diffuse atrophy of the pancreas. An intraluminal filling defect is seen within the superior mesenteric vein in keeping with superior mesenteric venous thrombosis. This extends into the proximal portion of the portal vein at the spinal pleural junction. Normal bilateral adrenal glands. Normal right kidney. Normal left kidney. Normal visualized stomach. Surgical clips are seen at the gastroesophageal junction. Normal small intestine. Normal colon. The appendix is visualized and appears normal. There is diffuse atherosclerotic calcification of the abdominal aorta, without a demonstrated aneurysm. Normal inferior vena cava. There is borderline retroperitoneal lymphadenopathy with enlarged nodes no greater than 10mm in the short axis diameter. Distended urinary bladder. Normal abdominal wall. There are diffuse degenerative changes of the visualized lumbar spine. IMPRESSION: Findings suggest mild scarring at the lung bases. 1.1 cm pleural-based nodular density in the left lower lobe. Mild dilatation of the intrahepatic biliary ducts and mild dilatation of the gallbladder. Splenomegaly. Thrombosis of the superior mesenteric vein. While inpatient he was anticoagulated with Lovenox and then transitioned to warfarin. He was also seen by hematology consult with team and it was recommended that anagrelide be stopped due to the potential thrombogenic action of the drug. He was placed on liquid hydroxyurea. Presents for ongoing hematologic management. Interim history: Had EGD under general anesthesia with dilation on November 27. His has really helped his ability to swallow better. He was hospitalized first week of November [facility] for superior mesenteric vein thrombosis. He had presented to the emergency department at [facility] on 11/29/2017 with left upper quadrant pain. He had been continuing on Coumadin. EGD 02/26/2018--A small amount of food (residue) was found in the gastric body. ? ? ?One benign-appearing, intrinsic moderate stenosis was found 17 cm ? ? ?from the incisors. This stenosis measured 1.3 cm (inner diameter) x ? ? ?less than one cm (in length). The stenosis was traversed. A guidewire ? ? ?was placed and the scope was withdrawn. Dilation was performed with a ? ? ?Savary dilator with no resistance at 12.8 14 and mild at 15 and 16mm. ? ? ?Post dilation inspection was satisfactory He presented to [facility] ED 03/04 for for melena and bloody stools. Hgb was 6.9. received 1 unit RBCs and transferred to [facility] 03/04 through 03/09 for upper GI bleed. Received another unit RBC. EGD 03/06/2018-- 2 cm long mucosal tear evidently from recent esophageal dilation at upper esophagus. Healing. No current bleeding. He was advised to restart Coumadin on discharge but he has not as of yet. He wanted to wait to get my opinion on it. He said he is feeling much better. He is not short of breath at rest. He denies coughing. He doesn't have sputum production or wheezing. No episodes of jaundice. Since last seen his had no episode fever, shaking chills or night sweats. No further melanoma or bloody stools. PMH, medications and allergies personally reviewed by me today. Any changes documented in appropriate section. ROS: Constitutional: See above. Neuro: Denies ANGELES, vertigo, dizziness and imbalance. Denies symptoms of neuropathy other than occasional tingling in his fingertips which is transient--stable. HEENT: No recent change in voice, vision or hearing. Resp: See above. CVS: Denies PND, orthopnea and LE edema. GI: Denies dysgeusia. Denies symptoms of stomatitis. Denies reflux, n/v. : Denies dysuria or gross hematuria. No symptoms of bladder outlet obstruction. Endo: Denies hot flashes. Denies polyuria and polydipsia. Denies heat and cold intolerance. Musculoskeletal: Denies bone, back, joint and muscular pain. Derm: Denies rash. Denies diffuse pruritis. Heme: See above. Psych: Normal mood. PHYSICAL EXAM: Vitals: Blood pressure 119/64, pulse 93, temperature 36.3 ?C (97.3 ?F), weight 55.3 kg (122 lb). Thin, but well-appearing and in no acute distress. EYES: Sclerae are anicteric bilaterally. NECK: Supple. LYMPHATIC: There is no palpable cervical, supraclavicular or axillary adenopathy. RESPIRATORY: Inspiratory breath sounds are of diminished intensity in all michaels. No rales, wheezes or rhonchi. CARDIOVASCULAR: Rhythm is regular. Normal intensity S1/S2. ABDOMEN: The abdomen is nondistended. I cannot appreciate splenomegaly. No tenderness. Extremities: No swelling or edema. SKIN: No jaundice or rash. No petechiae. NEUROLOGIC: service desk associate II-XII are grossly intact. No focal motor weakness. MUSCULOSKELETAL: No muscle wasting. ASSESSMENT/PLAN: (D47.1) Myeloproliferative disorder (HCC) (primary encounter diagnosis) (D47.3) Thrombocytosis (HCC) Assessment: -In summary the patient is a 78-year-old male who has a history of elevated blood counts. 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 He has a remote history of bleeding gastric ulcer 50 years ago status post surgery. No known history of coronary artery or peripheral arterial disease. Risk factors for cardiovascular disease include hypertension and history of smoking. -He is off anagrelide due to the potential thrombogenic action of the drug--was thought to precipitate the mesenteric vein thrombosis -He is tolerating liquid Hydrea very well. -Bone marrow biopsy was recommended by the team at [facility]. No urgent need for this. Plan: -Continue Hydrea 500 mg daily. -CBC with diff monthly. -He will continue under the care of his primary care physician for management of other modifiable cardiovascular risk factors. -OV in 2 months. (I81) Superior mesenteric vein thrombosis Assessment: -Patient has several risk factors for thrombosis including underlying myeloproliferative, JAK2 positive neoplasm and recent use of anagrelide. Plan: -Complete 3 months of anticoagulation. (R91.8) Lung nodules Assessment: -Previously personally reviewed the CT scan images done at [facility] of the chest, abdomen and pelvis. When compared to the study done in August, there is less pleural effusion on the current CT scan. There were areas of either compressive atelectasis or infiltrate on the previous CT. Plan: -CT chest along with A/P. PET and pulmonary evaluation if nodules persistent or larger. (K92.2) Gastrointestinal hemorrhage, unspecified gastrointestinal hemorrhage type Assessment: -Most likely due to esophageal mucosal tear from EGD/dilation on 02/26. However patient hasn't had colonoscopy since March 2016. He was advised to have a six-month follow-up colonoscopy which was not completed due to his other comorbid conditions and hospitalizations at the time. -He continues on low-dose aspirin with no further evidence of melena or hematochezia. -Discussed with him that I would like him to remain off Coumadin for the time being. Plan: -Referral to general surgery for colonoscopy. -Stable off Coumadin. If mesenteric vein thrombosis smaller resolve then no further anticoagulation. -Continue monitoring iron levels on a periodic basis. 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 Discontinue saline lock post exam. If Pt. has a central line or IVAD, may access for administration according to line specific nursing protocol. Once exam is complete flush line and de-access according to line specific nursing protocol in the CT contrast administration guidelines link.Disp: 1 EachRfl: 0 enteric contrast (will be provided with radiology test)For CT CHESTABD/PEL W IVCON Routine order Administer, As Directed One Time Only, via Oral, Rectal, both Oral and Rectal, Enteric Tube, Stoma or Indwelling Catheter, Enteric Contrast as designated per enteric contrast guidelinesDisp: 1 EachRfl: 0 Follow-up and Disposition History Recorded Prescriptions as of 03/14/2018 Sig: PANTOPRAZOLE 40 MG TABLET,DEL* Take 1 tablet by mouth once d* ASPIRIN 81 MG CHEWABLE TABLET Take 81 mg by mouth once cristiana* ALLOPURINOL 300 MG TABLET Take 1 tablet by mouth once d* HYDROXYUREA 100 MG/ML ORAL LI* Take 5 mL by mouth once daily. CHOLECALCIFEROL (VITAMIN D3) * Take 1 tablet by mouth once d* CHLORHEXIDINE GLUCONATE 0.12 * Take 15 mL by mouth once cristiana* TIOTROPIUM 2.5 MCG-OLODATEROL* Inhale 2 Puffs as instructed * IV CONTRAST (RADIOLOGY PROCED* CT Chest ABD/PEL-Inject, intr* ENTERIC CONTRAST (RADIOLOGY P* For CT CHESTABD/PEL W IVCON R* WARFARIN 2.5 MG TABLET Take 2.5 mg by mouth daily as* DILTIAZEM SR 120 MG 24 HR CAP Take 1 capsule by mouth twice* Patient not taking: Reported on 03/14/2018 Medication notes this encounter WARFARIN 2.5 MG TABLET >> Maura Aguillon DO 03/14/2018 9:50 AM >> MAURA AGUILLON DO Alicia Mar 14, 2018 9:50 AM On hold. Problem List As Of Date 03/14/2018 Noted Resolved Iron deficiency anemia [D50.9] INVALID FOR* Priority: Severe Peptic ulcer, unspecified site, unspecified as *INVALID FOR*10/30/2011 Esophageal stricture [K22.2] INVALID FOR* Priority: Moderate Diverticulosis of large intestine without hemor*INVALID FOR*01/24/2018 Nonspecific abnormal results of liver function *INVALID FOR*03/31/2011 More... Personal history of alcoholism [F10.21] INVALID FOR*02/12/2014 Tobacco use disorder [F17.200] INVALID FOR*02/21/2016 Interstitial lung disease (HCC) [J84.9] INVALID FOR* Lung nodule [R91.1] INVALID FOR*04/14/2013 More... Asthma [J45.909] INVALID FOR* COPD (chronic obstructive pulmonary disease) (H*INVALID FOR* Priority: C More... 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 Thrombocytosis (HCC) [D47.3] INVALID FOR* Priority: Severe Elevated protime [R79.1] INVALID FOR*01/24/2018 Elevated bilirubin [R17] INVALID FOR* Shortness of breath [R06.02] INVALID FOR*09/22/2017 Priority: A More... Body mass index (BMI) less than or equal to 19 *INVALID FOR* Malignant neoplasm of larynx (HCC) [C32.9] INVALID FOR* More... 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 Vitamin D deficiency [E55.9] INVALID FOR* Hypoalbuminemia [E88.09] INVALID FOR* Prolonged INR [R79.1] INVALID FOR*09/22/2017 More... 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 Essential hypertension [I10] INVALID FOR* Priority: D Acute gout of multiple sites [M10.9] INVALID FOR* Gastrointestinal hemorrhage [K92.2] INVALID FOR* Hematemesis [K92.0] INVALID FOR* More... Acute blood loss anemia [D62] INVALID FOR* Visit Notes: >> Opal Ceballos LPN Alicia Mar 14, 2018 8:52 AM Status: Signed Est pt, discuss recent lab results. 3 month f/u. Recent Discharge from [facility], GI bleed. Pt. Wants to discuss anticoagulation medications before he takes again. Opal Ceabllos LPN Encounter Status:Closed by MAURA AGUILLON DO on 03/14/18 PROGRESS Observed: 03/14/2018 Status: COMPLETED Source: [facility] 9:05 AM [facility] REPOSITORY HNO ID: [id number] Author: Maura Aguillon Service: (none) Author Type: Physician Type: Progress Notes Filed: 03/14/2018 10:06 AM Note Text: Diagnoses: 1) JAK2 positive MPN. 2) Thrombocytosis. HPI: The patient is a 78-year-old male has a past medical history significant for COPD, GERD with previous peptic ulcer disease. He also has a history of head and neck cancer status post radiation and resection. History of esophageal dilation. He presented to the emergency department at [facility] in August with progressive dysphagia. Patient had a CT scan the abdomen and pelvis on 09/13/2017. Emphysematous changes were noted in the lung bases. There was a small amount of scarring in the left lung base. There was decreased attenuation of liver consistent with steatosis. Moderate splenomegaly was observed. No dimensions were rendered. There was heterogeneous enhancement of the spleen which was likely due to arterial phase of the exam. Pancreas was normal. Subsequent CT scan of the abdomen and pelvis when he was in emergency room on 09/23/2017 showed that there were new small bilateral pleural effusions, trace pericardial effusion which was new compared to the prior CT and again moderate splenomegaly with calcified splenic granulomas noted area no dimensions on the spleen were rendered. Review of previous CBCs available in the [facility] system indicate in October 2016 patient had a white count of 21,000. Differential was not performed. The hemoglobin was 13.8 g/dL and the total red blood cell count was 7,090,000/dL. Platelet count 805,000. He was referred to [facility] where he underwent an EGD on 09/21. 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 Biopsies however showed no evidence of malignancy. Stricture was attributed to previous radiation treatment. He was seen by hematology inpatient due to elevated white count, red blood cell count and platelet count. Molecular studies for myeloproliferative disorders were sent. JAK2 was positive. CT chest 11/29/2017: Once again, there is diffuse emphysematous changes. Stable area of scarring in the posterior aspect of the right upper lobe. There is a 1.7 cm by 1.2 cm nodular density adjacent to the descending thoracic aorta at the left lung base as seen on axial image #75. A similar appearing pleural-based nodule is seen in the posteromedial aspect of the left lower lobe measuring 1.7 cm. These were not seen on prior study due to the presence of the pleural effusions. Correlation with a PET scan is recommended. The previously seen pleural effusions have resolved. Normal heart and pericardium. Normal mediastinum. Enlarged right hilar lymph node measuring 2.4 cm. Normal enhanced pulmonary arteries. There is atherosclerotic calcification of the aortic arch with tortuosity and elongation of the aortic arch and descending thoracic aorta. Increased thoracic kyphosis. There is no demonstrated abnormality of the visualized upper abdomen. IMPRESSION: Diffuse emphysematous changes. Stable right hilar node enlargement. There are 2 noncalcified nodular densities in the left lower lobe as described. Correlation with a PET scan is recommended. CT A/P 11/29/2017: The previously seen small bilateral pleural effusions have resolved. Mild increased markings at the lung bases suggestive of scarring and/or atelectasis. There is a 1.1 cm pleural-based nodular density along the posterior medial aspect of the left lower lobe. This may represent scarring. Follow-up is recommended. Coronary artery calcification. Small pericardial effusion. Dilated intrahepatic biliary ducts. Slightly distended gallbladder. Dilated common bile duct. There is moderate splenomegaly. Stable calcified splenic granulomas. There is diffuse atrophy of the pancreas. An intraluminal filling defect is seen within the superior mesenteric vein in keeping with superior mesenteric venous thrombosis. This extends into the proximal portion of the portal vein at the spinal pleural junction. Normal bilateral adrenal glands. Normal right kidney. Normal left kidney. Normal visualized stomach. Surgical clips are seen at the gastroesophageal junction. Normal small intestine. Normal colon. The appendix is visualized and appears normal. There is diffuse atherosclerotic calcification of the abdominal aorta, without a demonstrated aneurysm. Normal inferior vena cava. There is borderline retroperitoneal lymphadenopathy with enlarged nodes no greater than 10mm in the short axis diameter. Distended urinary bladder. Normal abdominal wall. There are diffuse degenerative changes of the visualized lumbar spine. IMPRESSION: Findings suggest mild scarring at the lung bases. 1.1 cm pleural-based nodular density in the left lower lobe. Mild dilatation of the intrahepatic biliary ducts and mild dilatation of the gallbladder. Splenomegaly. Thrombosis of the superior mesenteric vein. While inpatient he was anticoagulated with Lovenox and then transitioned to warfarin. He was also seen by hematology consult with team and it was recommended that anagrelide be stopped due to the potential thrombogenic action of the drug. He was placed on liquid hydroxyurea. Presents for ongoing hematologic management. Interim history: Had EGD under general anesthesia with dilation on November 27. His has really helped his ability to swallow better. He was hospitalized first week of [facility] for superior mesenteric vein thrombosis. He had presented to the emergency department at [facility] on 11/29/2017 with left upper quadrant pain. He had been continuing on Coumadin. EGD 02/26/2018--A small amount of food (residue) was found in the gastric body. ? ? ?One benign-appearing, intrinsic moderate stenosis was found 17 cm ? ? ?from the incisors. This stenosis measured 1.3 cm (inner diameter) x ? ? ?less than one cm (in length). The stenosis was traversed. A guidewire ? ? ?was placed and the scope was withdrawn. Dilation was performed with a ? ? ?Savary dilator with no resistance at 12.8 14 and mild at 15 and 16mm. ? ? ?Post dilation inspection was satisfactory He presented to [facility] ED 03/04 for for melena and bloody stools. Hgb was 6.9. received 1 unit RBCs and transferred to [facility] 03/04 through 03/09 for upper GI bleed. Received another unit RBC. EGD 03/06/2018-- 2 cm long mucosal tear evidently from recent esophageal dilation at upper esophagus. Healing. No current bleeding. He was advised to restart Coumadin on discharge but he has not as of yet. He wanted to wait to get my opinion on it. He said he is feeling much better. He is not short of breath at rest. He denies coughing. He doesn't have sputum production or wheezing. No episodes of jaundice. Since last seen his had no episode fever, shaking chills or night sweats. No further melanoma or bloody stools. PMH, medications and allergies personally reviewed by me today. Any changes documented in appropriate section. ROS: Constitutional: See above. Neuro: Denies ANGELES, vertigo, dizziness and imbalance. Denies symptoms of neuropathy other than occasional tingling in his fingertips which is transient--stable. HEENT: No recent change in voice, vision or hearing. Resp: See above. CVS: Denies PND, orthopnea and LE edema. GI: Denies dysgeusia. Denies symptoms of stomatitis. Denies reflux, n/v. : Denies dysuria or gross hematuria. No symptoms of bladder outlet obstruction. Endo: Denies hot flashes. Denies polyuria and polydipsia. Denies heat and cold intolerance. Musculoskeletal: Denies bone, back, joint and muscular pain. Derm: Denies rash. Denies diffuse pruritis. Heme: See above. Psych: Normal mood. PHYSICAL EXAM: Vitals: Blood pressure 119/64, pulse 93, temperature 36.3 ?C (97.3 ?F), weight 55.3 kg (122 lb). Thin, but well-appearing and in no acute distress. EYES: Sclerae are anicteric bilaterally. NECK: Supple. LYMPHATIC: There is no palpable cervical, supraclavicular or axillary adenopathy. RESPIRATORY: Inspiratory breath sounds are of diminished intensity in all michaels. No rales, wheezes or rhonchi. CARDIOVASCULAR: Rhythm is regular. Normal intensity S1/S2. ABDOMEN: The abdomen is nondistended. I cannot appreciate splenomegaly. No tenderness. Extremities: No swelling or edema. SKIN: No jaundice or rash. No petechiae. NEUROLOGIC: service desk associate II-XII are grossly intact. No focal motor weakness. MUSCULOSKELETAL: No muscle wasting. ASSESSMENT/PLAN: (D47.1) Myeloproliferative disorder (HCC) (primary encounter diagnosis) (D47.3) Thrombocytosis (HCC) Assessment: -In summary the patient is a 78-year-old male who has a history of elevated blood counts. 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 He has a remote history of bleeding gastric ulcer 50 years ago status post surgery. No known history of coronary artery or peripheral arterial disease. Risk factors for cardiovascular disease include hypertension and history of smoking. -He is off anagrelide due to the potential thrombogenic action of the drug--was thought to precipitate the mesenteric vein thrombosis -He is tolerating liquid Hydrea very well. -Bone marrow biopsy was recommended by the team at [facility]. No urgent need for this. Plan: -Continue Hydrea 500 mg daily. -CBC with diff monthly. -He will continue under the care of his primary care physician for management of other modifiable cardiovascular risk factors. -OV in 2 months. (I81) Superior mesenteric vein thrombosis Assessment: -Patient has several risk factors for thrombosis including underlying myeloproliferative, JAK2 positive neoplasm and recent use of anagrelide. Plan: -Complete 3 months of anticoagulation. (R91.8) Lung nodules Assessment: -Previously personally reviewed the CT scan images done at [facility] of the chest, abdomen and pelvis. When compared to the study done in August, there is less pleural effusion on the current CT scan. There were areas of either compressive atelectasis or infiltrate on the previous CT. Plan: -CT chest along with A/P. PET and pulmonary evaluation if nodules persistent or larger. (K92.2) Gastrointestinal hemorrhage, unspecified gastrointestinal hemorrhage type Assessment: -Most likely due to esophageal mucosal tear from EGD/dilation on 02/26. However patient hasn't had colonoscopy since March 2016. He was advised to have a six-month follow-up colonoscopy which was not completed due to his other comorbid conditions and hospitalizations at the time. -He continues on low-dose aspirin with no further evidence of melena or hematochezia. -Discussed with him that I would like him to remain off Coumadin for the time being. Plan: -Referral to general surgery for colonoscopy. -Stable off Coumadin. If mesenteric vein thrombosis smaller resolve then no further anticoagulation. -Continue monitoring iron levels on a periodic basis. Maura Aguillon DO COMP METABOLIC PANEL Collected: 03/14/2018 Status: F Source: [facility] 8:48 AM [facility] REPOSITORY TYPE CODE TESTS RESULT OUT OF REFERENCE UNITS RANGE LAB TP 6.3-8.0 g/dL Protein, Low Total 5.7 LAB ALB 3.9-4.9 g/dL Albumin Low 3.8 LAB CA 8.5-10.2 mg/dL Calcium, Total 9.1 LAB TBIL 0.2-1.3 mg/dL Bilirubin, Total 0.7 LAB ALKP 38-113 U/L Alkaline High Phosphatase 115 LAB AST 14-40 U/L AST Low 8 LAB GLU 74-99 mg/dL Glucose High 111 LAB BUN 7-21 mg/dL BUN 12 LAB CRET 0.73-1.22 mg/dL Creatinine 0.81 LAB NA 136-144 mmol/L Sodium 139 LAB K 3.7-5.1 mmol/L Potassium Low 3.3 LAB CL 97-105 mmol/L Chloride High 107 LAB CO2 22-30 mmol/L CO2 24 LAB AGAP 9-18 mmol/L Anion Gap Low 8 LAB ALT 10-54 U/L ALT Low <5 LAB GFRAA eGFR- >60 Amer. LAB GFRNAA . eGFR-All Other Races >60 Result Comment: eGFR (Estimated GFR) Units of measure: mL/min/1.73 meters squared eGFR is derived from the reexpressed MDRD Study equation using the following parameters: serum creatinine, age, gender and race. The creatinine assay has been calibrated to be traceable to IDMS. An eGFR <60 mL/min/1.73m2 for >3 months is consistent with chronic kidney disease. Refer to KDOQI guidelines for clinical interpretation. In patients with unstable renal function, e.g. those with acute kidney injury, the eGFR may not accurately reflect actual GFR. PROGRESS Observed: 03/11/2018 Status: COMPLETED Source: [facility] 12:44 PM [facility] REPOSITORY HNO ID: [id number] Author: Angela HanksRn) TL Norton Service: (none) Author Type: Registered Nurse Type: Progress Notes Filed: 03/11/2018 1:10 PM Note Text: TRANSITION CARE MANAGEMENT (TCM) INITIAL CONTACT Provider Action/FYI: Transitions of Care Critical Issues: SPECIALIST FOLLOW-UP: Hematology, GI, Vascular medicine ? LABS AND PROCEDURES PENDING AT DISCHARGE: SPECIALIST FOLLOW-UP: hematology, Vascular medicine, anticoagulation clinic Initial contact with patient post discharge, spoke to patient Patient identified by name and . TRANSITION CARE MANAGEMENT: Date of Outreach: 03/11/2018 Outreach Attempt 1: Contact Made Date of Discharge 03/09/2018 Some recent data might be hidden SUMMARY: -Pt discharged from [facility] on 03/09 -Follow up appointment on- declines need plans f/u with Hematology /GI and vascular -Medication review done- see TCM Pharm outreach. See note below regarding anticoag management. -Admitted for: CONCERNS: Patient states, I'm not taking Coumadin or Lovenox until I talk with my City Assessor at my appt (03/14. ) Agreed to call City Assessor today . Patient also reports he is upset because he is receiving conflicting information from [facility] hematology and [facility] hematology regarding when to admit/ treat anemia- plans to discuss this as well with his produce service team member. Tolerating diet without N//V. Had normal BM since discharge. Denies any new or worsening Sx. Verbalized understanding of upcoming appts. Reinforced importance of calling Hematology today MCKENZIE - agreed with plan. Denies further concerns or questions. Messaged TCM pharmacist regarding patient not taking Lovenox / coumadin- they will look for call / response from hematology and f/u with patient later today as indicated. NEW MEDICATIONS: enoxaparin 60 mg/0.6 mL Syrg Commonly known as: LOVENOX Inject 0.6 mL subcutaneously twice daily for [address] 40 mg tablet Commonly known as: PROTONIX Take 1 tablet by mouth once daily. Last time this MEDS HELD/DISCONTINUED: none BRIEF HOSPITAL COURSE:The following content has been copied and pasted from patient's discharge summary. HOSPITAL COURSE: This is a very pleasant 78 y/o male with history of Laryngeal Cancer s/p chemo/radiation, chronic anticoagulation with coumadin secondary to SMV Thrombosis, JAK2 Positive MPN, and recent history of Esophageal dilatation who presents with acute anemia secondary to upper GI bleed. He was evaluated by GI, he underwent EGD which didn't reveal acute bleed. His h/h remained stable and he did not have further melanotic/bloody stools. GI cleared patient to be re-started on anticoagulation. He will need to be bridged with lovenox till INR is therapeutic. He will follow up with his anticoagulation clinic, produce service team member (Dr. Aguillon) and vascular Medicine (Josie Munson) on discharge. ? Transitions of Care Critical Issues: SPECIALIST FOLLOW-UP: Hematology, GI, Vascular medicine ? LABS AND PROCEDURES PENDING AT DISCHARGE: SPECIALIST FOLLOW-UP: hematology, Vascular medicine, anticoagulation clinic - Angela Norton RN, [facility] TCM HUB [phone] PROGRESS Observed: 03/11/2018 Status: COMPLETED Source: GWINN 8:33 AM [facility] REPOSITORY [facility] ID: [id number] Author: Aubree Guerrero Pharmd Service: (none) Author Type: Pharmacist Type: Progress Notes Filed: 03/11/2018 2:32 PM Note Text: TRANSITION CARE MANAGEMENT (TCM) PHARMACY CONTACT Provider Action/FYI: ? Patient not currently taking Lovenox and Coumadin at this time - wishes to discuss with produce service team member at 03/14/2018 office visit. Patient is afraid of bleeding to . Explained to patient that foregoing anticoagulation puts him at increased risk of thrombus/stroke given his AFib diagnosis, patient verbalized understanding. ? TCM Medication Reconciliation completed for patient. See medication list table below for details. No further action required at this time. Initial contact with patient post discharge, spoke to patient. Patient identified by name and . Summary: -Pt discharged from [facility] on 03/09/2018. -Follow up appointment on 03/14/2018 with hematology. -Medication review done Yes. -Admitted for upper GI bleed Patient was contacted by telephone, identified for pharmacist care from discharge call list, and gave consent to manage medications related to transitional care management pursuant to the consult agreement with the [facility]. Patient Concerns: Patient has not started Lovenox injections or Coumadin since his discharge. Is afraid of bleeding to and will not start until he discusses with Dr. Aguillon (produce service team member). Patient was urged earlier today by TCM RN to call hematology office MCKENZIE - patient plans on discussing at 03/[address] Aguillon. History of Present Illness: The following content has been copied and pasted from patient's discharge summary. HOSPITAL COURSE: This is a very pleasant 78 y/o male with history of Laryngeal Cancer s/p chemo/radiation, chronic anticoagulation with coumadin secondary to SMV Thrombosis, JAK2 Positive MPN, and recent history of Esophageal dilatation who presents with acute anemia secondary to upper GI bleed. He was evaluated by GI, he underwent EGD which didn't reveal acute bleed. His h/h remained stable and he did not have further melanotic/bloody stools. GI cleared patient to be re-started on anticoagulation. He will need to be bridged with lovenox till INR is therapeutic. He will follow up with his anticoagulation clinic, produce service team member (Dr. Aguillon) and vascular Medicine (Josie Munson) on discharge. ? Transitions of Care Critical Issues: SPECIALIST FOLLOW-UP: Hematology, GI, Vascular medicine ? 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 Assessment: Mesenteric venous thrombosis versus PUD versus pancreatitis versus esophageal perforation LUQ/midepigastric burning abdominal pain CT imaging showed superior mesenteric venous thrombosis Hx of pancreatitis, lipase 116 (11/29/17) Recent esophageal dilatation Plan: Consult vascular medicine, hematology Start heparin nomogram Start cipro/flagyl Continue famotidine Pain management - tylenol (mild), tramadol (moderate) Zofran prn nausea LR IVF Diet NPO KUB AM Lactate AM - Tobacco use disorder 01/11/2005 - Unspecified asthma(493.90) 03/03/2011 pt not aware Social History Substance Use Topics - Smoking status: Former Smoker Packs/day: 2.00 Years: 52.00 Types: Cigarettes Quit date: 09/01/2013 - Smokeless tobacco: Never Used - Alcohol use 6.0 oz/week 4 Cans of Beer (12oz) per week Immunization History Administered Date(s) Administered Influenza Seasonal - High Dose - Age 65+ 02/05/2015 02/21/2016 04/11/2017 01/24/2018 Influenza Seasonal Inj Age 3+ 02/12/2014 Influenza Vaccine, Split-Non Spec 03/31/2010 01/25/2011 05/17/2012 04/14/2013 Pneumococcal-13 Vac Conjugate 08/17/2015 Pneumovax 09/29/2010 TD Adult 02/02/2011 Last 3 Encounter BP Readings: Date: BP: 03/04/2018 131/62 01/24/2018 110/54 01/07/2018 124/58 eGFR (no units) Date Value 03/09/2018 >60 eGFR-All Other Races (.) Date Value 12/05/2017 >60 eGFR- (no units) Date Value 12/05/2017 >60 Estimated Creatinine Clearance: 66.4 mL/min (based on SCr of 0.81 mg/dL). ALLERGIES Allergen Reactions - Doxycycline Other: See Comments pancreatitis Preferred pharmacy: [facility] [place], [place] [address] - [address] - [phone] [address] [facility] [id number] Medication Reconciliation: Legend: Stopped, New, Changed, Added to list Medication List Medication Directions Comments Action/Plan allopurinol (ZYLOPRIM) 300 mg tablet Take 1 tablet by mouth once daily. This can be crushed. aspirin 81 mg chewable tablet Take 81 mg by mouth once daily. Chlorhexidine Gluconate (PERIDEX) 0.12 % solution Take 15 mL by mouth once daily. Swish for 30 seconds and then spit out. Cholecalciferol, Vitamin D3, (VITAMIN D-3) 1,000 unit chew Take 1 tablet by mouth once daily. Vit D 25 6.2 L (09/19/2017) diltiazem CD (CARDIZEM CD) 120 mg 24 hr capsule Take 1 capsule by mouth twice daily. enoxaparin (LOVENOX) 60 mg/0.6 mL syrg Inject 0.6 mL subcutaneously twice daily for 5 days. Until INR therapeutic INR 1.28 L (03/05/2018) Weight 62.5 kg (03/04/2018) Patient has not started Lovenox injections or Coumadin since his discharge. Is afraid of bleeding to and will not start until he discusses with Dr. Aguillon (produce service team member). Patient was urged earlier today by TCM RN to call hematology office MCKENZIE - patient plans on discussing at 03/[address] Aguillon. Counseled patient on taking Lovenox and warfarin as prescribed and by not doing so he is putting himself at risk of blood clot/stroke. Patient verbalized understanding and stated it is his right to forego anticoagulation at this time. hydroxyurea (HYDREA) 100 mg/mL oral liquid Take 5 mL by mouth once daily. pantoprazole DR (PROTONIX) 40 mg tablet Take 1 tablet by mouth once daily. For upper GI bleed tiotropium-olodaterol (STIOLTO RESPIMAT) 2.5-2.5 mcg/actuation mist Inhale 2 Puffs as instructed once daily. warfarin (COUMADIN) 2.5 mg tablet Take 2.5 mg by mouth daily as directed. 2.5 mg / and 5 mg all other days See Lovenox Comments Additional follow up: ? Follow Up with PCP: Varun Wang MD ? Follow Up with Vascular Medicine, hematology, Anticoagulation Clinic Appointments for Next 60 Days Date Time Provider Location Dept Phone 03/14/2018 8:45 AM LAB [facility] MOB [facility] [place] [phone] 03/14/2018 9:10 AM MAURA AGUILLON [facility] [place] [phone] 03/25/2018 3:30 PM MARCO A GIRALDO BL [phone] 04/05/2018 10:15 AM REGISTRATION [facility] J/S Bld [phone] 04/05/2018 10:30 AM JOSIE MUNSON [facility] J/S Bld [phone] 05/07/2018 9:20 AM VARUN WANG [facility] [place] [phone] Time spent on patient: 15-30 minutes Aubree Guerrero, PharmD March 11, 2018 8:33 AM [facility] Observed: 03/11/2018 Status: COMPLETED Source: GUTIERREZ 12:00 AM [facility] REPOSITORY Patient Outreach (INTMWS) SABINA FLORES ([id number]) 1940 M Date Time Provider Department 03/11/18 ANGELA NORTON (RN) INTMWS During your visit today, we recorded the following information about you: Angela Norton RN, RN 03/11/2018 1:10 PM Signed TRANSITION CARE MANAGEMENT (TCM) INITIAL CONTACT Provider Action/FYI: Transitions of Care Critical Issues: SPECIALIST FOLLOW-UP: Hematology, GI, Vascular medicine ? LABS AND PROCEDURES PENDING AT DISCHARGE: SPECIALIST FOLLOW- UP: hematology, Vascular medicine, anticoagulation clinic Initial contact with patient post discharge, spoke to patient Patient identified by name and . TRANSITION CARE MANAGEMENT: Date of Outreach: 03/11/2018 Outreach Attempt 1: Contact Made Date of Discharge 03/09/2018 Some recent data might be hidden SUMMARY: -Pt discharged from [facility] on 03/09 -Follow up appointment on- declines need plans f/u with Hematology /GI and vascular -Medication review done- see TCM Pharm outreach. See note below regarding anticoag management. -Admitted for: CONCERNS: Patient states, I'm not taking Coumadin or Lovenox until I talk with my City Assessor at my appt (03/14. ) Agreed to call City Assessor today . Patient also reports he is upset because he is receiving conflicting information from [facility] hematology and [facility] hematology regarding when to admit/ treat anemia- plans to discuss this as well with his produce service team member. Tolerating diet without N//V. Had normal BM since discharge. Denies any new or worsening Sx. Verbalized understanding of upcoming appts. Reinforced importance of calling Hematology today MCKENZIE - agreed with plan. Denies further concerns or questions. Messaged TCM pharmacist regarding patient not taking Lovenox / coumadin- they will look for call / response from hematology and f/u with patient later today as indicated. NEW MEDICATIONS: enoxaparin 60 mg/0.6 mL Syrg Commonly known as: LOVENOX Inject 0.6 mL subcutaneously twice daily for [address] 40 mg tablet Commonly known as: PROTONIX Take 1 tablet by mouth once daily. Last time this MEDS HELD/DISCONTINUED: none BRIEF HOSPITAL COURSE:The following content has been copied and pasted from patient's discharge summary. HOSPITAL COURSE: This is a very pleasant 78 y/o male with history of Laryngeal Cancer s/p chemo/radiation, chronic anticoagulation with coumadin secondary to SMV Thrombosis, JAK2 Positive MPN, and recent history of Esophageal dilatation who presents with acute anemia secondary to upper GI bleed. He was evaluated by GI, he underwent EGD which didn't reveal acute bleed. His h/h remained stable and he did not have further melanotic/bloody stools. GI cleared patient to be re-started on anticoagulation. He will need to be bridged with lovenox till INR is therapeutic. He will follow up with his anticoagulation clinic, produce service team member (Dr. Aguillon) and vascular Medicine (Josie Munson) on discharge. ? Transitions of Care Critical Issues: SPECIALIST FOLLOW-UP: Hematology, GI, Vascular medicine ? LABS AND PROCEDURES PENDING AT DISCHARGE: SPECIALIST FOLLOW- UP: hematology, Vascular medicine, anticoagulation clinic Angela Norton RN, [facility] [phone] Allergies As of Date: 03/11/2018 Noted Allergy Reaction DOXYCYCLINE 01/07/2018 14 - Other: See Comments Comments: pancreatitis Date Reviewed: 03/08/2018 Reviewed by: Jenny (Tl) TL Weeks - Fully Assessed Reason for Visit: Transition Of Care [4074] Cmt: hospital discharge 03/09 UGI bleed-EGD Reason For Visit History Recorded Prescriptions as of 03/11/2018 Sig: PANTOPRAZOLE 40 MG TABLET,DEL* Take 1 tablet by mouth once d* ENOXAPARIN 60 MG/0.6 ML SUBCU* Inject 0.6 mL subcutaneously * ASPIRIN 81 MG CHEWABLE TABLET Take 81 mg by mouth once cristiana* WARFARIN 2.5 MG TABLET Take 2.5 mg by mouth daily as* DILTIAZEM SR 120 MG 24 HR CAP Take 1 capsule by mouth twice* ALLOPURINOL 300 MG TABLET Take 1 tablet by mouth once d* HYDROXYUREA 100 MG/ML ORAL LI* Take 5 mL by mouth once daily. CHOLECALCIFEROL (VITAMIN D3) * Take 1 tablet by mouth once d* CHLORHEXIDINE GLUCONATE 0.12 * Take 15 mL by mouth once cristiana* TIOTROPIUM 2.5 MCG-OLODATEROL* Inhale 2 Puffs as instructed * Problem List As Of Date 03/11/2018 Noted Resolved Iron deficiency anemia [D50.9] INVALID FOR* Priority: Severe Peptic ulcer, unspecified site, unspecified as *INVALID FOR*10/30/2011 Esophageal stricture [K22.2] INVALID FOR* Priority: Moderate Diverticulosis of large intestine without hemor*INVALID FOR*01/24/2018 Nonspecific abnormal results of liver function *INVALID FOR*03/31/2011 More... Personal history of alcoholism [F10.21] INVALID FOR*02/12/2014 Tobacco use disorder [F17.200] INVALID FOR*02/21/2016 Interstitial lung disease (HCC) [J84.9] INVALID FOR* Lung nodule [R91.1] INVALID FOR*04/14/2013 More... Asthma [J45.909] INVALID FOR* COPD (chronic obstructive pulmonary disease) (H*INVALID FOR* Priority: C More... 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 Thrombocytosis (HCC) [D47.3] INVALID FOR* Priority: Severe Elevated protime [R79.1] INVALID FOR*01/24/2018 Elevated bilirubin [R17] INVALID FOR* Shortness of breath [R06.02] INVALID FOR*09/22/2017 Priority: A More... Body mass index (BMI) less than or equal to 19 *INVALID FOR* Malignant neoplasm of larynx (HCC) [C32.9] INVALID FOR* More... 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 Vitamin D deficiency [E55.9] INVALID FOR* Hypoalbuminemia [E88.09] INVALID FOR* Prolonged INR [R79.1] INVALID FOR*09/22/2017 More... 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 Essential hypertension [I10] INVALID FOR* Priority: D Acute gout of multiple sites [M10.9] INVALID FOR* Upper GI bleed [K92.2] INVALID FOR* Hematemesis [K92.0] INVALID FOR* More... Acute blood loss anemia [D62] INVALID FOR* Encounter Status:Closed by ANGELA NORTON on 03/11/18 ANDER Observed: 03/11/2018 Status: COMPLETED Source: TEE 12:00 AM [facility] REPOSITORY Patient Outreach (PHRXRF) SABINA FLORES ([id number]) 1940 M Date Time Provider Department 03/11/18 SYLVIA GUERRERO PHARMD During your visit today, we recorded the following information about you: Aubree Guerrero PharmD 03/11/2018 2:32 PM Signed TRANSITION CARE MANAGEMENT (TCM) PHARMACY CONTACT Provider Action/FYI: ? Patient not currently taking Lovenox and Coumadin at this time - wishes to discuss with produce service team member at 03/14/2018 office visit. Patient is afraid of bleeding to . Explained to patient that foregoing anticoagulation puts him at increased risk of thrombus/stroke given his AFib diagnosis, patient verbalized understanding. ? TCM Medication Reconciliation completed for patient. See medication list table below for details. No further action required at this time. Initial contact with patient post discharge, spoke to patient. Patient identified by name and . Summary: -Pt discharged from [facility] on 03/09/2018. -Follow up appointment on 03/14/2018 with hematology. -Medication review done Yes. -Admitted for upper GI bleed Patient was contacted by telephone, identified for pharmacist care from discharge call list, and gave consent to manage medications related to transitional care management pursuant to the consult agreement with the [facility]. Patient Concerns: Patient has not started Lovenox injections or Coumadin since his discharge. Is afraid of bleeding to and will not start until he discusses with Dr. Aguillon (produce service team member). Patient was urged earlier today by TCM RN to call hematology office MCKENZIE - patient plans on discussing at 03/[address] Aguillon. History of Present Illness: The following content has been copied and pasted from patient's discharge summary. HOSPITAL COURSE: This is a very pleasant 78 y/o male with history of Laryngeal Cancer s/p chemo/radiation, chronic anticoagulation with coumadin secondary to SMV Thrombosis, JAK2 Positive MPN, and recent history of Esophageal dilatation who presents with acute anemia secondary to upper GI bleed. He was evaluated by GI, he underwent EGD which didn't reveal acute bleed. His h/h remained stable and he did not have further melanotic/bloody stools. GI cleared patient to be re-started on anticoagulation. He will need to be bridged with lovenox till INR is therapeutic. He will follow up with his anticoagulation clinic, produce service team member (Dr. Aguillon) and vascular Medicine (Josie Munson) on discharge. ? Transitions of Care Critical Issues: SPECIALIST FOLLOW-UP: Hematology, GI, Vascular medicine ? 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 Assessment: Mesenteric venous thrombosis versus PUD versus pancreatitis versus esophageal perforation LUQ/midepigastric burning abdominal pain CT imaging showed superior mesenteric venous thrombosis Hx of pancreatitis, lipase 116 (11/29/17) Recent esophageal dilatation Plan: Consult vascular medicine, hematology Start heparin nomogram Start cipro/flagyl Continue famotidine Pain management - tylenol (mild), tramadol (moderate) Zofran prn nausea LR IVF Diet NPO KUB AM Lactate AM - Tobacco use disorder 01/11/2005 - Unspecified asthma(493.90) 03/03/2011 pt not aware Social History Substance Use Topics - Smoking status: Former Smoker Packs/day: 2.00 Years: 52.00 Types: Cigarettes Quit date: 09/01/2013 - Smokeless tobacco: Never Used - Alcohol use 6.0 oz/week 4 Cans of Beer (12oz) per week Immunization History Administered Date(s) Administered Influenza Seasonal - High Dose - Age 65+ 02/05/2015 02/21/2016 04/11/2017 01/24/2018 Influenza Seasonal Inj Age 3+ 02/12/2014 Influenza Vaccine, Split-Non Spec 03/31/2010 01/25/2011 05/17/2012 04/14/2013 Pneumococcal-13 Vac Conjugate 08/17/2015 Pneumovax 09/29/2010 TD Adult 02/02/2011 Last 3 Encounter BP Readings: Date: BP: 03/04/2018 131/62 01/24/2018 110/54 01/07/2018 124/58 eGFR (no units) Date Value 03/09/2018 >60 eGFR-All Other Races (.) Date Value 12/05/2017 >60 eGFR- (no units) Date Value 12/05/2017 >60 Estimated Creatinine Clearance: 66.4 mL/min (based on SCr of 0.81 mg/dL). ALLERGIES Allergen Reactions - Doxycycline Other: See Comments pancreatitis Preferred pharmacy: [facility] [place], [facility] [place] [address] - [address] [place] [address] - [phone] [address] [facility] [address] Medication Reconciliation: Legend: Stopped, New, Changed, Added to list Medication List Medication Directions Comments Action/Plan allopurinol (ZYLOPRIM) 300 mg tablet Take 1 tablet by mouth once daily. This can be crushed. aspirin 81 mg chewable tablet Take 81 mg by mouth once daily. Chlorhexidine Gluconate (PERIDEX) 0.12 % solution Take 15 mL by mouth once daily. Swish for 30 seconds and then spit out. Cholecalciferol, Vitamin D3, (VITAMIN D-3) 1,000 unit chew Take 1 tablet by mouth once daily. Vit D 25 6.2 L (09/19/2017) diltiazem CD (CARDIZEM CD) 120 mg 24 hr capsule Take 1 capsule by mouth twice daily. enoxaparin (LOVENOX) 60 mg/0.6 mL syrg Inject 0.6 mL subcutaneously twice daily for 5 days. Until INR therapeutic INR 1.28 L (03/05/2018) Weight 62.5 kg (03/04/2018) Patient has not started Lovenox injections or Coumadin since his discharge. Is afraid of bleeding to and will not start until he discusses with Dr. Aguillon (produce service team member). Patient was urged earlier today by TCM RN to call hematology office [facility] - patient plans on discussing at 03/[address] Aguillon. Counseled patient on taking Lovenox and warfarin as prescribed and by not doing so he is putting himself at risk of blood clot/stroke. Patient verbalized understanding and stated it is his right to forego anticoagulation at this time. hydroxyurea (HYDREA) 100 mg/mL oral liquid Take 5 mL by mouth once daily. pantoprazole DR (PROTONIX) 40 mg tablet Take 1 tablet by mouth once daily. For upper GI bleed tiotropium-olodaterol (STIOLTO RESPIMAT) 2.5-2.5 mcg/actuation mist Inhale 2 Puffs as instructed once daily. warfarin (COUMADIN) 2.5 mg tablet Take 2.5 mg by mouth daily as directed. 2.5 mg / and 5 mg all other days See Lovenox Comments Additional follow up: ? Follow Up with PCP: Varun Wang MD ? Follow Up with Vascular Medicine, hematology, Anticoagulation Clinic Appointments for Next 60 Days Date Time Provider Location Dept Phone 03/14/2018 8:45 AM LAB [facility] MOB [facility] [phone] 03/14/2018 9:10 AM MAURA AGUILLON [facility] [phone] 03/25/2018 3:30 PM MARCO A GIRALDO [facility] [phone] 04/05/2018 10:15 AM REGISTRATION [facility] J/[facility] Bld [phone] 04/05/2018 10:30 AM JOSIE MUNSON [facility] J/S d [phone] 05/07/2018 9:20 AM VARUN WANG [facility] [phone] Time spent on patient: 15-30 minutes Aubree Guerrero, PharmD March 11, 2018 8:33 AM Allergies As of Date: 03/11/2018 Noted Allergy Reaction DOXYCYCLINE 01/07/2018 14 - Other: See Comments Comments: pancreatitis Date Reviewed: 03/08/2018 Reviewed by: Jenny Parker) TL Weesk - Fully Assessed Reason for Visit: Transition Of Care [4074] Cmt: Pharmacy - hospital discharge 03/09/2018 Prescriptions as of 03/11/2018 Sig: PANTOPRAZOLE 40 MG TABLET,DEL* Take 1 tablet by mouth once d* ASPIRIN 81 MG CHEWABLE TABLET Take 81 mg by mouth once crisitana* DILTIAZEM SR 120 MG 24 HR CAP Take 1 capsule by mouth twice* ALLOPURINOL 300 MG TABLET Take 1 tablet by mouth once d* HYDROXYUREA 100 MG/ML ORAL LI* Take 5 mL by mouth once daily. CHOLECALCIFEROL (VITAMIN D3) * Take 1 tablet by mouth once d* CHLORHEXIDINE GLUCONATE 0.12 * Take 15 mL by mouth once cristiana* TIOTROPIUM 2.5 MCG-OLODATEROL* Inhale 2 Puffs as instructed * ENOXAPARIN 60 MG/0.6 ML SUBCU* Inject 0.6 mL subcutaneously * WARFARIN 2.5 MG TABLET Take 2.5 mg by mouth daily as* Medication notes this encounter ASPIRIN 81 MG CHEWABLE TABLET >> Aubree Guerrero, PharmD 03/11/2018 2:30 PM >> TREVOR (PHARMACIST), [facility]* SunMar 11, 2018 2:30 PM DILTIAZEM SR 120 MG 24 HR CAP >> Aubree Guerrero PharmD 03/11/2018 2:30 PM >> TREVOR (PHARMACIST), * SunMar 11, 2018 2:30 PM ALLOPURINOL 300 MG TABLET >> Aubree Guerrero PharmD 03/11/2018 2:31 PM >> TREVOR (PHARMACIST), [facility]* SunMar 11, 2018 2:31 PM HYDROXYUREA 100 MG/ML ORAL LIQUID ([facility]) >> Aubree Guerrero PharmD 03/11/2018 2:30 PM >> TREVOR (PHARMACIST), * SunMar 11, 2018 2:30 PM CHOLECALCIFEROL (VITAMIN D3) 1,000 UNIT CHEWABLE TABLET >> Aubree Guerrero, PharmD 03/11/2018 2:30 PM >> TREVOR (PHARMACIST), * SunMar 11, 2018 2:30 PM CHLORHEXIDINE GLUCONATE 0.12 % MOUTHWASH >> Aubree Guerrero, PharmD 03/11/2018 2:30 PM >> TREVOR (PHARMACIST), * SunMar 11, 2018 2:30 PM TIOTROPIUM 2.5 MCG-OLODATEROL 2.5 MCG/ACTUATION MIST FOR INHALATION >> Aubree Guerrero PharmD 03/11/2018 2:30 PM >> TREVOR (PHARMACIST), [facility]* SunMar 11, 2018 2:30 PM ENOXAPARIN 60 MG/0.6 ML SUBCUTANEOUS SYRINGE >> Aubree Guerrero PharmD 03/11/2018 2:30 PM >> TREVOR (PHARMACIST), [facility]* SunMar 11, 2018 2:30 PM Patient is not currently taking and will not take until he speaks with produce service team member - concerned for major bleed WARFARIN 2.5 MG TABLET >> Aubree Guerrero PharmD 03/11/2018 2:30 PM >> TREVOR (PHARMACIST), [facility]* SunMar 11, 2018 2:30 PM Patient is not currently taking and will not take until he speaks with hematology - concerned about major bleed Problem List As Of Date 03/11/2018 Noted Resolved Iron deficiency anemia [D50.9] INVALID FOR* Priority: Severe Peptic ulcer, unspecified site, unspecified as *INVALID FOR*10/30/2011 Esophageal stricture [K22.2] INVALID FOR* Priority: Moderate Diverticulosis of large intestine without hemor*INVALID FOR*01/24/2018 Nonspecific abnormal results of liver function *INVALID FOR*03/31/2011 More... Personal history of alcoholism [F10.21] INVALID FOR*02/12/2014 Tobacco use disorder [F17.200] INVALID FOR*02/21/2016 Interstitial lung disease (HCC) [J84.9] INVALID FOR* Lung nodule [R91.1] INVALID FOR*04/14/2013 More... Asthma [J45.909] INVALID FOR* COPD (chronic obstructive pulmonary disease) (H*INVALID FOR* Priority: C More... 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 Thrombocytosis (HCC) [D47.3] INVALID FOR* Priority: Severe Elevated protime [R79.1] INVALID FOR*01/24/2018 Elevated bilirubin [R17] INVALID FOR* Shortness of breath [R06.02] INVALID FOR*09/22/2017 Priority: A More... Body mass index (BMI) less than or equal to 19 *INVALID FOR* Malignant neoplasm of larynx (HCC) [C32.9] INVALID FOR* More... 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 Vitamin D deficiency [E55.9] INVALID FOR* Hypoalbuminemia [E88.09] INVALID FOR* Prolonged INR [R79.1] INVALID FOR*09/22/2017 More... 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 Essential hypertension [I10] INVALID FOR* Priority: D Acute gout of multiple sites [M10.9] INVALID FOR* Upper GI bleed [K92.2] INVALID FOR* Hematemesis [K92.0] INVALID FOR* More... Acute blood loss anemia [D62] INVALID FOR* Follow-up and Disposition History Recorded Encounter Status:Closed by TREVOR (PHARMACISTAUBREE Scherer on 03/11/18 CNDS Observed: 03/09/2018 Status: COMPLETED Source: [facility] 11:00 AM CLINIC OTHER CAMPUS REPOSITORY O ID: [id number] Author: Alen Garay Service: Hospital Medicine Author Type: Physician Type: Discharge Summaries Filed: 03/09/2018 11:19 AM Note Text: DISCHARGE SUMMARY PATIENT NAME: Sabina Flores ADMISSION DATE: 03/04/2018 DISCHARGE DATE: 03/09/2018 ATTENDING PHYSICIAN: Alen Garay Code Status: Not on file Highest Readmission Risk Score: 25 The 30 day readmissions risk score is derived from an internally validated risk model which evaluates patient level characteristics, utilization history, medication orders and lab results up until the day of discharge. Patients with a score of 40 or above are considered highest risk for readmission. Specific patient level drivers will be listed at the bottom of the summary. REASON FOR HOSPITALIZATION: Upper GI bleed DIAGNOSIS: Principal Problem: Upper GI bleed Active Problems: Thrombocytosis (HCC) Esophageal stricture Superior mesenteric vein thrombosis COPD (chronic obstructive pulmonary disease) (HCC) History of laryngeal cancer Hematemesis Acute blood loss anemia Resolved Problems: * No resolved hospital problems. 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 He was evaluated by GI, he underwent EGD which didn't reveal acute bleed. His h/h remained stable and he did not have further melanotic/bloody stools. GI cleared patient to be re-started on anticoagulation. He will need to be bridged with lovenox till INR is therapeutic. He will follow up with his anticoagulation clinic, produce service team member (Dr. Aguillon) and vascular Medicine (Josie Munson) on discharge. Transitions of Care Critical Issues: SPECIALIST FOLLOW-UP: Hematology, GI, Vascular medicine LABS AND PROCEDURES PENDING AT DISCHARGE: SPECIALIST FOLLOW-UP: hematology, Vascular medicine, anticoagulation clinic CONSULTING TEAMS DURING HOSPITALIZATION: Gastroenterology: Dr Barnes PATIENT CONDITION AT DISCHARGE: Improved DISCHARGE DISPOSITION: Home/Self Care 03/07/[id number]/08/18190303/09/18 0733 BP: 120/65 129/60 131/62 Pulse: 84 85 87 Resp: Temp: 36.7 ?C (98.1 ?F) 36.9 ?C (98.5 ?F) 36.4 ?C (97.5 ?F) TempSrc: Oral Oral Oral SpO2: 97% 94% 97% Weight: Height: General: AANDOx3, NAD, Cooperative CV: RRR, +[id number], no murmurs Resp: CTA b/l, no wheeze, non-labored respirations Abd: Soft, NTND, +Bowel sounds Ext: no LE edmea. ALLERGIES Allergen Reactions - Doxycycline Other: See Comments pancreatitis DISCHARGE MEDICATION: Current Discharge Medication List START taking these medications pantoprazole DR (PROTONIX) 40 mg Take 40 mg by mouth once daily. Qty: 30 tablet Refills: 0 enoxaparin (LOVENOX) 60 mg Inject 60 mg subcutaneously twice daily. Qty: 6 mL Refills: 0 CONTINUE these medications which have NOT CHANGED aspirin 81 mg Take 81 mg by mouth once daily. warfarin (COUMADIN) 2.5 mg Take 2.5 mg by mouth daily as directed. 2.5 mg / and 5 mg all other days diltiazem CD (CARDIZEM CD, CARTIA XT) 120 mg Take 120 mg by mouth twice daily. Qty: 180 capsule Refills: 1 Associated Diagnoses:Elevated blood pressure reading allopurinol (ZYLOPRIM) 300 mg Take 300 mg by mouth once daily. This can be crushed. Qty: 30 tablet Refills: 5 hydroxyurea (HYDREA) 500 mg Take 500 mg by mouth once daily. Qty: 150 mL Refills: 5 Associated Diagnoses:Myeloproliferative disorder (HCC) Cholecalciferol (Vitamin D3) 1,000 Units Take 1,000 Units by mouth once daily. Qty: 30 tablet Refills: 3 Chlorhexidine Gluconate (PERIDEX) 15 mL Take 15 mL by mouth once daily. Swish for 30 seconds and then spit out. Qty: 30 mL Refills: 1 tiotropium-olodaterol 2 Puffs Inhale 2 Puffs as instructed once daily. FUTURE APPOINTMENTS: Follow Up with PCP: Varun Wang MD Follow Up with Vascular Medicine, hematology, Anticoagulation Clinic The patient's risk for 30-day readmission is determined using the following contributing factors: Pt variables contributing to increased readmission risk: 7.8 First Resulted Calcium During Admission 7 Most Recent BUN Result 4 Active Medication Orders 2 Number of Hospitalizations (12 mos.) 1 Insurance - Medicare 1 History of COPD 1 History of Anemia 1 History of Drug Abuse/Dependence 1 Active Anticoagulant TIME OF CARE: Discharge Management: I personally spent greater than 30 minutes involved in the discharge management of this patient. SIGNATURE: Alen Garay DO PAGER/CONTACT #: Diana DATE: March 09, 2018 TIME: 11:00 AM MDRD GFR Collected: 03/09/2018 Status: F Source: [facility] 2:54 AM HEALTH SYSTEM REPOSITORY TYPE CODE TESTS RESULT OUT OF RANGE REFERENCE UNITS LAB GFRFN(LOINC >60mL/min/1.73m ) 2 eGFR >60 Result Comment: If the patient is , multiply the result by 1.210. Performed By: #### GFR #### [place] [address] COMPREHENSIVE PANEL Collected: 03/09/2018 Status: F Source: [facility] 2:54 AM HEALTH SYSTEM REPOSITORY TYPE CODE TESTS RESULT OUT OF REFERENCE UNITS RANGE LAB NA(LOINC) 136-145 mEq/L Sodium Blood 142 LAB K(LOINC) 3.5-5.1 mEq/L Potassium Blood 3.5 LAB CL(LOINC) 98-107 mEq/L Chloride High Blood 112 LAB CO2(LOINC) 21-32 mEq/L CO2 Blood 23 LAB GLU(LOINC) 70-99 mg/dL Glucose Blood 91 LAB BUN(LOINC) 7-18 mg/dL BUN Blood 7 LAB CREA(LOINC 0.67-1.17 mg/dL ) Creatinine Blood 0.81 LAB CA(LOINC) 8.5-10.1 mg/dL Low Calcium Blood 7.9 LAB ALB(LOINC) 3.4-5.0 g/dL Low Albumin Blood 2.5 LAB TP(LOINC) 6.4-8.2 g/dL Low Total Protein 5.1 LAB AST(LOINC) 9-37 U/L AST-SGOT Blood 9 LAB ALT(LOINC) 12-78 U/L Low ALT-SGPT Blood 9 LAB ALKP(LOINC 46-116 U/L ) Alk Phosphatase 105 LAB BILIT(LOIN 0.2-1.0 mg/dL C) Total Bilirubin 0.7 LAB ANGAP(LOIN 8-16 C) Anion Gap 11 Performed By: #### P14 #### [facility] [address] [place], [place] [address] HEMOGRAM/DIFF Collected: 03/09/2018 Status: F Source: [facility] 2:53 AM HEALTH SYSTEM REPOSITORY TYPE CODE TESTS RESULT OUT OF REFERENCE UNITS RANGE LAB WBC(LOINC) 4.23-9.07 thou/cmm WBC 6.92 LAB RBC(LOINC) 4.63-6.08 mil/cmm Low RBC 3.52 LAB HGB(LOINC) 13.7-17.5 g/dL Low Hgb 8.0 LAB HCT(LOINC) 40.1-51.0 % Low Hct 28.3 LAB MCV(LOINC) 83.2-95.6 fl Low MCV 80.4 LAB MCH(LOINC) 25.7-32.2 pg Low MCH 22.7 LAB MCHC(LOINC) 32.3-36.5 % Low MCHC 28.3 LAB RDW(LOINC) 11.6-14.4 % High RDW 20.3 LAB RDWSD(LOINC 36.1-45.8 fl ) High RDW SD 59.7 LAB PLT(LOINC) 141-365 thou/cmm Platelet 236 Result Comment: Smear scanned tech agrees with platelet count LAB MPV(LOINC) 8.7-12.0 fl MPV High 12.2 LAB NRBCR(LOINC) 0.0-0.2 % High Nucleated RBC % 0.4 LAB SEG(LOINC) % Seg Neutrophil 75.1 LAB IGRE(LOINC) % Immature Grans 1.70 LAB LYMPH(LOINC) % Lymphocyte 11.3 LAB MNO(LOINC) % Monocyte 5.9 LAB EOSIN(LOINC) % Eosinophil 3.0 LAB BASO(LOINC) % Basophil 3.0 LAB NRBCA(LOINC) 0.00-0.01 thou/cmm High Nucleated RBC Absolute 0.03 LAB SEGN(LOINC) 1.78-5.38 thou/cmm Abs. Neut (ANC) 5.20 LAB IGAB(LOINC) 0.00-0.05 thou/cmm Abs High Immature Grans 0.12 LAB LYMN(LOINC) 0.84-2.85 thou/cmm Abs. Low Lymph 0.78 LAB MONON(LOINC) 0.30-0.82 thou/cmm Abs. Preston 0.41 LAB EOSN(LOINC) 0.04-0.54 thou/cmm Abs. Eosin 0.21 LAB BASON(LOINC) 0.01-0.08 thou/cmm Abs. High Baso 0.21 Performed By: #### CBCD1 #### [facility] [address] [place] [address] NUTRITION Observed: 03/08/2018 Status: COMPLETED Source: [facility] 7:45 PM CLINIC OTHER CAMPUS REPOSITORY HNO ID: [id number] Author: Juany Hendricks) LOUIS Chatman Service: Nutrition Therapy Author Type: Registered Dietitian Type: Nutrition Filed: 03/08/2018 7:55 PM Note Text: NUTRITION THERAPY PROGRESS NOTE SERVICE DATE: 03/08/2018 SERVICE TIME: 7:00 PM RECOMMENDED DIAGNOSIS: SEVERE PROTEIN-CALORIE MALNUTRITION per Registered Dietitian on 03/05/18 NUTRITION CARE PLAN Intervention: Trial vanilla ensure enlive 1 per day. Monitor and Evaluation: Goal: Meet >75% of estimated needs Discharge Nutrition Recommendations: Diet: Regular Supplements: Recommend ensure enlive or similar supplements at home BID if pt will take them Interval History: Pt is s/p upper endoscopy. Findings: longitudinal mucosal tear, healing, without current bleeding Nutritional Intake: <50% estimated energy need over the past 3 day(s) due to CL and FL diets and npo for procedure. Current Diet Order DIET REGULAR Lines and Drains: Peripheral 03/08/18 1829 Short Left Forearm 22 Gauge (Active) Height: 180.3 cm (5' 11) Admission Weight: 62.5 kg (137 lb 12.6 oz) Current Weight: 62.5 kg (137 lb 12.6 oz) Body mass index is 19.22 kg/m?. underweight for elderly Recent Labs 03/08/18 1437 03/08/18 0358 GLUC -- 87 BUN -- 10 CREAT -- 0.86 NA -- 140 K -- 3.5 CHLOR -- 108* CO2 -- 27 ALB -- 2.5* HB 8.1* 8.3* HCT 27.9* 28.5* WBC 6.93 7.26 ALLERGIES Allergen Reactions - Doxycycline Other: See Comments pancreatitis Current Facility-Administered Medications: NaCl 0.9% iv infusion 75 mL/hr INTRAVENOUS CONTINUOUS pantoprazole DR 40 mg tab(s) (PROTONIX) 40 mg ORAL BID AC (0600/1600) albuterol 2.5 mg/0.5 mL 2.5 mg nebulizer solution (PROVENTIL) 2.5 mg INHALATION q 4 H PRN tiotropium 2.5 mcg/actuation 1 Puff (SPIRIVA RESPIMAT) 1 Puff INHALATION DAILY Date 03/07/18 1500 - 03/08/18 0659 03/08/18 0700 - 03/09/18 0659 Shift 1895-3415 2243-4354 24 Hour Total 4300-5842 9806-3783 4763-4226 24 Hour Total I N T A K E PO 600 360 300 660 PO 600 360 300 660 IV 628 628 NS 0.9% 628 628 Shift Total 600 512 993 3994 O U T P U T Urine 200 400 Void (ml) 200 400 Urine Not Saved. 1 x 2 x 3 x 3 x # of BMs Number of BMs 4 x 4 x 4 x 4 x Shift Total 200 400 Weight (kg) 62.5 62.5 62.5 62.5 62.5 62.5 62.5 Pressure Injury 03/04/18 2100 Coccyx (Active) Stage Injury 1 03/08/2018 7:30 AM Motor Vehicles Inspector Related Pressure Injury No 03/07/2018 7:45 PM Dressing Status Clean, Dry AND Intact 03/08/2018 7:30 AM Frequency of Dressing Change Every 3 Days 03/07/2018 7:45 PM Dressing Change Due 03/07/18 03/06/2018 9:13 PM Dressing/Treatment Type Foam-Adhesive 03/08/2018 7:30 AM Drainage Description None 03/08/2018 7:30 AM Drainage Amount None 03/08/2018 7:30 AM Odor No 03/08/2018 7:30 AM Wound Surface Color Reedy 03/08/2018 7:30 AM Surrounding Skin Intact 03/08/2018 7:30 AM Number of days: 3 MNT Billing Type: Re-assess/15 min 2 units SIGNATURE: Juany Chatman RD PATIENT NAME: Sabina Flores DATE: March 08, 2018 TIME: 7:46 PM PAGER: [phone] HEMOGRAM/DIFF Collected: 03/08/2018 Status: F Source: [facility] 2:37 PM HEALTH SYSTEM REPOSITORY TYPE CODE TESTS RESULT OUT OF REFERENCE UNITS RANGE LAB WBC(LOINC) 4.23-9.07 thou/cmm WBC 6.93 LAB RBC(LOINC) 4.63-6.08 mil/cmm Low RBC 3.51 LAB HGB(LOINC) 13.7-17.5 g/dL Low Hgb 8.1 LAB HCT(LOINC) 40.1-51.0 % Low Hct 27.9 LAB MCV(LOINC) 83.2-95.6 fl Low MCV 79.5 LAB MCH(LOINC) 25.7-32.2 pg Low MCH 23.1 LAB MCHC(LOINC 32.3-36.5 % ) Low MCHC 29.0 LAB RDW(LOINC) 11.6-14.4 % RDW High 20.3 LAB RDWSD(LOIN 36.1-45.8 fl C) RDW SD High 58.6 LAB PLT(LOINC) 141-365 thou/cmm Platelet 212 LAB MPV(LOINC) 8.7-12.0 fl MPV 11.6 LAB NRBCR(LOIN 0.0-0.2 % C) High Nucleated RBC % 0.4 LAB SEG(LOINC) % Seg Neutrophil 79.0 LAB IGRE(LOINC % ) Immature Grans 1.60 LAB LYMPH(LOIN % C) Lymphocyte 8.8 LAB MNO(LOINC) % Monocyte 5.9 LAB EOSIN(LOIN % C) Eosinophil 2.0 LAB BASO(LOINC % ) Basophil 2.7 LAB NRBCA(LOIN 0.00-0.01 thou/cmm C) High Nucleated RBC 0.03 Absolute LAB SEGN(LOINC 1.78-5.38 thou/cmm ) Abs. High Neut (ANC) 5.47 LAB IGAB(LOINC 0.00-0.05 thou/cmm ) Abs High Immature Grans 0.11 LAB LYMN(LOINC 0.84-2.85 thou/cmm ) Low Abs. Lymph 0.61 LAB MONON(LOIN 0.30-0.82 thou/cmm C) Abs. Preston 0.41 LAB EOSN(LOINC 0.04-0.54 thou/cmm ) Abs. Eosin 0.14 LAB BASON(LOIN 0.01-0.08 thou/cmm C) Abs. High Baso 0.19 Performed By: #### CBCD1 #### [facility] [address] [place] [address] CONSULT PROG Observed: 03/08/2018 Status: COMPLETED Source: [facility] 10:38 AM CLINIC OTHER CAMPUS REPOSITORY HNO ID: [id number] Author: Rocio Diaz (Paige) Susan Service: Gastroenterology Author Type: Nurse Practitioner Type: Consult Progress Note Filed: 03/08/2018 12:12 PM Note Text: CONSULT PROGRESS NOTE SERVICE DATE: 03/08/2018 SERVICE TIME: 10:38 AM CONSULTING SERVICE: GASTROENTEROLOGY Subjective INTERVAL HPI: Patient denied abdominal pain, nausea, or vomiting. Having melanotic stools yesterday, received Miralax X 4 to clean colon. Current hospital medications: NaCl 0.9% iv infusion 75 mL/hr INTRAVENOUS CONTINUOUS albuterol 2.5 mg/0.5 mL 2.5 mg nebulizer solution (PROVENTIL) 2.5 mg INHALATION q 4 H PRN tiotropium 2.5 mcg/actuation 1 Puff (SPIRIVA RESPIMAT) 1 Puff INHALATION DAILY pantoprazole 40 mg injection (PROTONIX) 40 mg INTRAVENOUS BID AC (0600/1600) Objective PHYSICAL EXAM: Physical Exam Performed: GENERAL: Alert and oriented in no distress, cooperative and following commands LUNGS: Lungs clear to auscultation, even and unlabored on RA CARDIAC: Normal S1 and S2 ABDOMEN: Abdomen soft and non-tender with + BS X 4 without guarding, rebound, or distention EXTREMITIES: GOMEZ X 4 without edema RECTAL: No hemorrhoids or masses, Normal tone with green stool on glove BP 120/65 Pulse 84 Temp (Src) 98.1 (Oral) Resp 18 Ht 5' 11 (1.80m) Wt 137 lb 12.6 oz (62.5kg) SpO2 97% BMI 19.23 kg/(m2). DATA: Diagnostic tests reviewed for today's visit: Ref. Range 03/08/2018 03:58 Sodium Latest Ref Range: 136 - 145 mEq/L 140 Potassium Latest Ref Range: 3.5 - 5.1 mEq/L 3.5 Chloride Latest Ref Range: 98 - 107 mEq/L 108 (H) CO2 Latest Ref Range: 21 - 32 mEq/L 27 BUN Latest Ref Range: 7 - 18 mg/dL 10 Creatinine Latest Ref Range: 0.67 - 1.17 mg/dL 0.86 Glucose Latest Ref Range: 70 - 99 mg/dL 87 Protein, Total Latest Ref Range: 6.4 - 8.2 g/dL 5.3 (L) Calcium Latest Ref Range: 8.5 - 10.1 mg/dL 7.9 (L) Albumin Latest Ref Range: 3.4 - 5.0 g/dL 2.5 (L) Bilirubin, Total Latest Ref Range: 0.2 - 1.0 mg/dL 0.7 Alkaline Phosphatase Latest Ref Range: 46 - 116 U/L 123 (H) ALT Latest Ref Range: 12 - 78 U/L 10 (L) AST Latest Ref Range: 9 - 37 U/L 8 (L) Anion Gap Latest Ref Range: 8 - 16 9 eGFR Latest Ref Range: >60mL/min/1.73m2 >60 Ref. Range 03/08/2018 03:58 WBC Latest Ref Range: 4.23 - 9.07 thou/cmm 7.26 RBC Latest Ref Range: 4.63 - 6.08 mil/cmm 3.54 (L) HGB Latest Ref Range: 13.7 - 17.5 g/dL 8.3 (L) Hematocrit Latest Ref Range: 40.1 - 51.0 % 28.5 (L) Platelet Count Latest Ref Range: 141 - 365 thou/cmm 250 MCV Latest Ref Range: 83.2 - 95.6 fl 80.5 (L) Impression/Recommendations 1). Upper GI bleed-hgb stable, s/p EGD showed 2 cm long mucosal tear evidently from recent esophageal dilation at upper esophagus which was healing and no current bleeding. ? Assessment AND Plan: Continue to monitor h/h, transfuse <7, continue PPI, ok to discharge home per GI 2). Esophageal stricture s/p dilation Assessment AND Plan: 3). Acute on chronic normocytic anemia-hgb stable, s/p EGD showed 2 cm long mucosal tear evidently from recent esophageal dilation at upper esophagus which was healing and no current bleeding. Assessment AND Plan: Continue to monitor h/h, transfuse <7, continue PPI 4). H/o laryngeal cancer s/p chemo/radiation Assessment AND Plan: GI will sign off call with questions SIGNATURE: Rocio Davis APRN.CNP PATIENT NAME: Sabina Flores DATE: March 08, 2018 TIME: 10:38 AM PAGER: [email or web address] Observed: 03/08/2018 Status: COMPLETED Source: [facility] 9:22 AM CLINIC OTHER CAMPUS REPOSITORY HNO ID: [id number] Author: Alen Garay Service: Hospital Medicine Author Type: Physician Type: Progress Notes Filed: 03/08/2018 9:37 AM Note Text: DEPARTMENT OF HOSPITAL MEDICINE PROGRESS NOTE SERVICE DATE: 03/08/2018 SERVICE TIME: 9:23 AM Hospital Medicine/Primary Attending: Alen Garay, DO NIGHT AND WEEKEND COVERAGE: From 7am - 7pm, please call [facility] [place] After 7pm, please call cross cover pager #[phone] Subjective INTERVAL HPI: F/U GI bleed. Reports very small amount of melanotic stool since yesterday. No new complaints. MEDICATIONS: Reviewed Objective PHYSICAL EXAM: BP 120/65 Pulse 84 Temp (Src) 98.1 (Oral) Resp 18 Ht 5' 11 (1.80m) Wt 137 lb 12.6 oz (62.5kg) SpO2 97% BMI 19.23 kg/(m2). Physical Exam Performed General: AANDOx3, NAD, Cooperative CV: RRR, +[id number], no murmurs Resp: CTA b/l, no wheeze, non-labored respirations Abd: Soft, NTND, +Bowel sounds Ext: no LE edmea. Lines, Drains, and Airways Line Peripheral 03/04/182058 Admission to Hospital Short Left Wrist 22 Gauge 3 days Peripheral 03/04/182256 Assessment Short Right Wrist 20 Gauge 3 days Reviewed lines, drains, AND airways. Need to be continued . DATA: Diagnostic tests reviewed for today's visit: WBC (thou/cmm) Date Value 03/08/2018 7.26 RBC (mil/cmm) Date Value 03/08/2018 3.54 (L) Hemoglobin (g/dL) Date Value 12/05/2017 10.7 (L) HGB (g/dL) Date Value 03/08/2018 8.3 (L) Hematocrit (%) Date Value 03/08/2018 28.5 (L) MCV (fl) Date Value 03/08/2018 80.5 (L) MCH (pg) Date Value 03/08/2018 23.4 (L) MCHC (%) Date Value 03/08/2018 29.1 (L) RDW-CV (%) Date Value 12/05/2017 20.2 (H) Platelet Count (thou/cmm) Date Value 03/08/2018 250 MPV (fl) Date Value 03/08/2018 12.0 Glucose (mg/dL) Date Value 03/08/2018 87 BUN (mg/dL) Date Value 03/08/2018 10 Creatinine (mg/dL) Date Value 03/08/2018 0.86 Sodium (mEq/L) Date Value 03/08/2018 140 Potassium (mEq/L) Date Value 03/08/2018 3.5 Chloride (mEq/L) Date Value 03/08/2018 108 (H) CO2 (mEq/L) Date Value 03/08/2018 27 Protein, Total (g/dL) Date Value 03/08/2018 5.3 (L) Albumin (g/dL) Date Value 03/08/2018 2.5 (L) Calcium (mg/dL) Date Value 03/08/2018 7.9 (L) Alkaline Phosphatase (U/L) Date Value 03/08/2018 123 (H) Bilirubin, Total (mg/dL) Date Value 03/08/2018 0.7 AST (U/L) Date Value 03/08/2018 8 (L) ALT (U/L) Date Value 03/08/2018 10 (L) Cholesterol, Total (mg/dL) Date Value 02/18/2016 156 Triglyceride (mg/dL) Date Value 02/18/2016 67 Assessment/Plan 1. Acute anemia secondary to Upper GI bleed - GI following - s/p recent esophageal dilatation. EGD with no acute bleed. H/H stabilizing. Will continue to monitor H/H Q12H. Remains hemodynamically stable. Transfuse if Hgb <7. Continue to hold anticoagulation. Appreciate further GI reccs. 2. COPD not in exacerbation - continue bronchodilators. 3. SMV stenosis/thrombosis - Anticoagulation held due to GI bleed. 4. Hx of laryngeal Cancer s/p chemoradiation 5. HTN - BP meds held. Medication and Non-Pharmacologic VTE Prophylaxis/Anticoagulants 03/04/182129 vte pharmacologic prophylaxis contraindicated (mi,oh) 03/04/182129 pneumatic compression stockings (mi,ga) VTE Prophylaxis: VTE prophylaxis appropriate Disposition: Home Plan of care discussed with: Patient SIGNATURE: Alen Garay DO PATIENT NAME: Sabina Flores DATE: March 08, 2018 TIME: 9:23 AM PAGER/CONTACT #: Diana COMPREHENSIVE PANEL Collected: 03/08/2018 Status: F Source: [facility] 3:58 AM [facility] REPOSITORY TYPE CODE TESTS RESULT OUT OF REFERENCE UNITS RANGE LAB NA(LOINC) 136-145 mEq/L Sodium Blood 140 LAB K(LOINC) 3.5-5.1 mEq/L Potassium Blood 3.5 LAB CL(LOINC) 98-107 mEq/L Chloride High Blood 108 LAB CO2(LOINC) 21-32 mEq/L CO2 Blood 27 LAB GLU(LOINC) 70-99 mg/dL Glucose Blood 87 LAB BUN(LOINC) 7-18 mg/dL BUN Blood 10 LAB CREA(LOINC 0.67-1.17 mg/dL ) Creatinine Blood 0.86 LAB CA(LOINC) 8.5-10.1 mg/dL Low Calcium Blood 7.9 LAB ALB(LOINC) 3.4-5.0 g/dL Low Albumin Blood 2.5 LAB TP(LOINC) 6.4-8.2 g/dL Low Total Protein 5.3 LAB AST(LOINC) 9-37 U/L Low AST-SGOT Blood 8 LAB ALT(LOINC) 12-78 U/L Low ALT-SGPT Blood 10 LAB ALKP(LOINC 46-116 U/L ) Alk High Phosphatase 123 LAB BILIT(LOIN 0.2-1.0 mg/dL C) Total Bilirubin 0.7 LAB ANGAP(LOIN 8-16 C) Anion Gap 9 Performed By: #### P14 #### [place] [address] HEMOGRAM/DIFF Collected: 03/08/2018 Status: F Source: [facility] 3:58 AM HEALTH SYSTEM REPOSITORY TYPE CODE TESTS RESULT OUT OF REFERENCE UNITS RANGE LAB WBC(LOINC) 4.23-9.07 thou/cmm WBC 7.26 LAB RBC(LOINC) 4.63-6.08 mil/cmm Low RBC 3.54 LAB HGB(LOINC) 13.7-17.5 g/dL Low Hgb 8.3 LAB HCT(LOINC) 40.1-51.0 % Low Hct 28.5 LAB MCV(LOINC) 83.2-95.6 fl Low MCV 80.5 LAB MCH(LOINC) 25.7-32.2 pg Low MCH 23.4 LAB MCHC(LOINC 32.3-36.5 % ) Low MCHC 29.1 LAB RDW(LOINC) 11.6-14.4 % RDW High 20.6 LAB RDWSD(LOIN 36.1-45.8 fl C) RDW SD High 60.6 LAB PLT(LOINC) 141-365 thou/cmm Platelet 250 LAB MPV(LOINC) 8.7-12.0 fl MPV 12.0 LAB NRBCR(LOIN 0.0-0.2 % C) High Nucleated RBC % 0.4 LAB SEG(LOINC) % Seg Neutrophil 75.5 LAB IGRE(LOINC % ) Immature Grans 1.40 LAB LYMPH(LOIN % C) Lymphocyte 9.4 LAB MNO(LOINC) % Monocyte 7.3 LAB EOSIN(LOIN % C) Eosinophil 2.8 LAB BASO(LOINC % ) Basophil 3.6 LAB NRBCA(LOIN 0.00-0.01 thou/cmm C) High Nucleated RBC 0.03 Absolute LAB SEGN(LOINC 1.78-5.38 thou/cmm ) Abs. High Neut (ANC) 5.48 LAB IGAB(LOINC 0.00-0.05 thou/cmm ) Abs High Immature Grans 0.10 LAB LYMN(LOINC 0.84-2.85 thou/cmm ) Low Abs. Lymph 0.68 LAB MONON(LOIN 0.30-0.82 thou/cmm C) Abs. Preston 0.53 LAB EOSN(LOINC 0.04-0.54 thou/cmm ) Abs. Eosin 0.20 LAB BASON(LOIN 0.01-0.08 thou/cmm C) Abs. High Baso 0.26 Performed By: #### CBCD1 #### [address] [address] NURSING PROG Observed: 03/07/2018 Status: COMPLETED Source: [facility] 8:01 PM [facility] REPOSITORY HNO ID: [id number] Author: Mitchell HanksRn) TL Guerin Service: Nursing Author Type: Registered Nurse Type: Nursing Progress Note Filed: 03/07/2018 8:02 PM Note Text: Nursing Progress Note Patient Name: Sabina Flores Patient Location: [place] [address] [address]* Daily Note: Patient has positive fecal occult. Sound text paged. This note was completed by: Mitchell Guerin RN FECAL OCCULT BLOOD Collected: 03/07/2018 Status: F Source: [facility] 6:45 PM HEALTH SYSTEM REPOSITORY TYPE CODE TESTS RESULT OUT OF RANGE REFERENCE UNITS LAB OCCU2(LOIN NEGATIVE C) Abnormal Fecal POSITIVE Occult Blood Performed By: #### OCCU2 #### [place] [address] NURSING PROG Observed: 03/07/2018 Status: COMPLETED Source: [facility] 5:55 PM [facility] REPOSITORY HNO ID: [id number] Author: Dary HanksRn) TL Vieira Service: (none) Author Type: Registered Nurse Type: Nursing Progress Note Filed: 03/07/2018 5:58 PM Note Text: Dr Barnes called back states ok to give miralax 17gm packets [id number] x4 packets. Also states to order clear liquids for patient and NPO at midnight ok oral pills NURSING PROG Observed: 03/07/2018 Status: COMPLETED Source: [facility] 5:40 PM [facility] REPOSITORY HNO ID: [id number] Author: Dary HanksRn) TL Vieira Service: (none) Author Type: Registered Nurse Type: Nursing Progress Note Filed: 03/07/2018 5:53 PM Note Text: Paging Dr Barnes to confirm miralax awaiting response PROGRESS Observed: 03/07/2018 Status: COMPLETED Source: [facility] 5:30 PM [facility] OTHER CAMPUS REPOSITORY HNO ID: [id number] Author: Alen Garay Service: Hospital Medicine Author Type: Physician Type: Progress Notes Filed: 03/07/2018 6:30 PM Note Text: DEPARTMENT OF HOSPITAL MEDICINE PROGRESS NOTE SERVICE DATE: 03/07/2018 SERVICE TIME: 5:30 PM Hospital Medicine/Primary Attending: Alen Garay, DO NIGHT AND WEEKEND COVERAGE: From 7am - 7pm, please call Sound [place] After 7pm, please call cross cover pager #[phone] Subjective INTERVAL HPI: Patient transferred from MICU yesterday. Presented with Acute anemia secondary to UGIB. He continues to have dark tarry and at times reddish stools. Denies any abdominal pain, fevers or chills. MEDICATIONS: Reviewed Objective PHYSICAL EXAM: BP 109/59 Pulse 90 Temp (Src) 98.6 (Oral) Resp 20 Ht 5' 11 (1.80m) Wt 137 lb 12.6 oz (62.5kg) SpO2 98% BMI 19.23 kg/(m2). Physical Exam Performed General: AANDOx3, NAD, Cooperative CV: RRR, +A3CNND5, no murmurs Resp: CTA b/l, no wheeze, non-labored respirations Abd: Soft, NTND, +Bowel sounds Ext: no LE edmea. Lines, Drains, and Airways Line Peripheral 03/04/182058 Admission to Hospital Short Left Wrist 22 Gauge 2 days Peripheral 03/04/182256 Assessment Short Right Wrist 20 Gauge 2 days Reviewed lines, drains, AND airways. Need to be continued . DATA: Diagnostic tests reviewed for today's visit: WBC (thou/cmm) Date Value 03/07/2018 8.32 RBC (mil/cmm) Date Value 03/07/2018 3.56 (L) Hemoglobin (g/dL) Date Value 12/05/2017 10.7 (L) HGB (g/dL) Date Value 03/07/2018 8.1 (L) Hematocrit (%) Date Value 03/07/2018 28.8 (L) MCV (fl) Date Value 03/07/2018 80.9 (L) MCH (pg) Date Value 03/07/2018 22.8 (L) MCHC (%) Date Value 03/07/2018 28.1 (L) RDW-CV (%) Date Value 12/05/2017 20.2 (H) Platelet Count (thou/cmm) Date Value 03/07/2018 274 MPV (fl) Date Value 03/07/2018 10.9 Glucose (mg/dL) Date Value 03/07/2018 86 BUN (mg/dL) Date Value 03/07/2018 16 Creatinine (mg/dL) Date Value 03/07/2018 0.79 Sodium (mEq/L) Date Value 03/07/2018 140 Potassium (mEq/L) Date Value 03/07/2018 4.1 Chloride (mEq/L) Date Value 03/07/2018 109 (H) CO2 (mEq/L) Date Value 03/07/2018 22 Protein, Total (g/dL) Date Value 03/07/2018 5.0 (L) Albumin (g/dL) Date Value 03/07/2018 2.6 (L) Calcium (mg/dL) Date Value 03/07/2018 7.9 (L) Alkaline Phosphatase (U/L) Date Value 03/07/2018 117 (H) Bilirubin, Total (mg/dL) Date Value 03/07/2018 0.5 AST (U/L) Date Value 03/07/2018 8 (L) ALT (U/L) Date Value 03/07/2018 12 Cholesterol, Total (mg/dL) Date Value 02/18/2016 156 Triglyceride (mg/dL) Date Value 02/18/2016 67 Assessment/Plan 1. Acute anemia secondary to Upper GI bleed - GI following - s/p recent esophageal dilatation. EGD with no acute bleed. H/H trending down. Will continue to monitor H/H Q12H. Check FOBT. Remains hemodynamically stable. Discussed with GI (Dr. Barnes) regarding persistent bloody/melanotic stools. Reccs Miralax X4 doses to clear the colon from possible old blood. Transfuse if Hgb <7. Continue to hold anticoagulation. Appreciate further GI reccs. 2. COPD not in exacerbation - continue bronchodilators. 3. SMV stenosis/thrombosis - Anticoagulation held due to GI bleed. 4. Hx of laryngeal Cancer s/p chemoradiation 5. HTN - BP meds held. Medication and Non-Pharmacologic VTE Prophylaxis/Anticoagulants 03/04/182129 vte pharmacologic prophylaxis contraindicated (fl,oh) 03/04/182129 pneumatic compression stockings (fl,oh) VTE Prophylaxis: no chemical prophylaxis due to GI bleed Disposition: Home Plan of care discussed with: Patient, Case Management, RN and Consultants: Dr. Barnes SIGNATURE: Alen Garay DO PATIENT NAME: Sabina Flores DATE: March 07, 2018 TIME: 5:30 PM PAGER/CONTACT #: Diana [phone] [phone] NURSING PROG Observed: 03/07/2018 Status: COMPLETED Source: [facility] 5:30 PM [facility] [place] REPOSITORY HNO ID: [id number] Author: Dary (Rn) TL Vieira Service: (none) Author Type: Registered Nurse Type: Nursing Progress Note Filed: 03/07/2018 5:52 PM Note Text: Paging Dr Barnes to confirm that total of four miralax to be given to patient 10minutes apart as scheduled per Dr Garay awaiting response NURSING PROG Observed: 03/07/2018 Status: COMPLETED Source: [facility] 5:11 PM [facility] OTHER [place] REPOSITORY HNO ID: [id number] Author: Dary (Rn) TL Vieira Service: (none) Author Type: Registered Nurse Type: Nursing Progress Note Filed: 03/07/2018 5:12 PM Note Text: Dr Garay states he will notify gastroenterology about blood in patients stool no new orders given NURSING PROG Observed: 03/07/2018 Status: COMPLETED Source: [facility] 4:40 PM [facility] OTHER [place] REPOSITORY HNO ID: [id number] Author: Dary (Rn) Dariel, TL Service: (none) Author Type: Registered Nurse Type: Nursing Progress Note Filed: 03/07/2018 4:41 PM Note Text: Dr Garay notified pt had dark red bowel movement states he will order fecal occult and adjust cbc to daily. states gastroenterology does not need to be notified at this time 12 LEAD ELECTROCARDIOGRAM Observed: 03/07/2018 Status: F Source: [place] 3:38 PM [facility] [place] Cardiovascular Services [address] [place] [address] 12 Lead EKG 03/04/18 1553 MR#: [id number] Acct: [id number] Name: SABINA FLORES Rep #: [id number] : 1940 78 From: Jaden Paredes MD Attending Dr: Status: DEP ER Ordering Dr: Sabina Richard DO Date: 03/04/18 Location: ED Sex: M C Admitted: Test Reason : GI BLEED Blood Pressure : / mmHG Vent. Rate : 104 BPM Atrial Rate : 104 BPM P-R Int : 140 ms QRS Dur : 072 ms QT Int : 340 ms P-R-T Axes : 076 -28 081 degrees QTc Int : 447 ms Sinus tachycardia with Premature atrial complexes Otherwise normal ECG Confirmed by INDIO MARQUEZ, JADEN ([id number]), medical transcription editor CINTHYA JOLLEY ([id number]) on 03/07/2018 3:37:24 PM Referred By: SHERLYN Confirmed By:JADEN PAREDES MD 03/07/18 1537 Date Jaden Paredes MD CC: Saibna Richard DO; Varun Wang MD Signed HEMOGRAM/DIFF Collected: 03/07/2018 Status: F Source: [facility] 2:55 PM [facility]ALTH SYSTEM REPOSITORY TYPE CODE TESTS RESULT OUT OF REFERENCE UNITS RANGE LAB WBC(LOINC) 4.23-9.07 thou/cmm WBC 8.32 LAB RBC(LOINC) 4.63-6.08 mil/cmm Low RBC 3.56 LAB HGB(LOINC) 13.7-17.5 g/dL Low Hgb 8.1 LAB HCT(LOINC) 40.1-51.0 % Low Hct 28.8 LAB MCV(LOINC) 83.2-95.6 fl Low MCV 80.9 LAB MCH(LOINC) 25.7-32.2 pg Low MCH 22.8 LAB MCHC(LOINC 32.3-36.5 % ) Low MCHC 28.1 LAB RDW(LOINC) 11.6-14.4 % RDW High 21.2 LAB RDWSD(LOIN 36.1-45.8 fl C) RDW SD High 61.5 LAB PLT(LOINC) 141-365 thou/cmm Platelet 274 LAB MPV(LOINC) 8.7-12.0 fl MPV 10.9 LAB NRBCR(LOIN 0.0-0.2 % C) High Nucleated RBC % 0.4 LAB SEG(LOINC) % Seg Neutrophil 78.9 LAB IGRE(LOINC % ) Immature Grans 2.00 LAB LYMPH(LOIN % C) Lymphocyte 8.2 LAB MNO(LOINC) % Monocyte 6.0 LAB EOSIN(LOIN % C) Eosinophil 2.3 LAB BASO(LOINC % ) Basophil 2.6 LAB NRBCA(LOIN 0.00-0.01 thou/cmm C) High Nucleated RBC 0.03 Absolute LAB SEGN(LOINC 1.78-5.38 thou/cmm ) Abs. High Neut (ANC) 6.56 LAB IGAB(LOINC 0.00-0.05 thou/cmm ) Abs High Immature Grans 0.17 LAB LYMN(LOINC 0.84-2.85 thou/cmm ) Low Abs. Lymph 0.68 LAB MONON(LOIN 0.30-0.82 thou/cmm C) Abs. Preston 0.50 LAB EOSN(LOINC 0.04-0.54 thou/cmm ) Abs. Eosin 0.19 LAB BASON(LOIN 0.01-0.08 thou/cmm C) Abs. High Baso 0.22 Performed By: #### CBCD1 #### [facility] [address] [place] [address] NURSING PROG Observed: 03/07/2018 Status: COMPLETED Source: [facility] 12:24 PM [facility] OTHER [place] REPOSITORY HNO ID: [id number] Author: Dary (Rn) TL Vieira Service: (none) Author Type: Registered Nurse Type: Nursing Progress Note Filed: 03/07/2018 12:25 PM Note Text: Pt refuses to sit in chair for lunch states maybe at dinner NURSING PROG Observed: 03/07/2018 Status: COMPLETED Source: [facility] 9:45 AM [facility] OTHER [place] REPOSITORY HNO ID: [id number] Author: Dary HanksRn) Dariel, TL Service: (none) Author Type: Registered Nurse Type: Nursing Progress Note Filed: 03/07/2018 9:50 AM Note Text: Dr Garay notified last cbc drawn at [address] states to draw another cbc at 1500 today states he will adjust orders also notified pt states he had dark red blood in stool yesterday (03/06/2018) HEMOGRAM Collected: 03/07/2018 Status: F Source: [facility] 3:55 AM HEALTH SYSTEM REPOSITORY TYPE CODE TESTS RESULT OUT OF REFERENCE UNITS RANGE LAB WBC(LOINC) 4.23-9.07 thou/cmm WBC 7.69 LAB RBC(LOINC) 4.63-6.08 mil/cmm Low RBC 3.46 LAB HGB(LOINC) 13.7-17.5 g/dL Low Hgb 8.2 LAB HCT(LOINC) 40.1-51.0 % Low Hct 28.0 LAB MCV(LOINC) 83.2-95.6 fl Low MCV 80.9 LAB MCH(LOINC) 25.7-32.2 pg Low MCH 23.7 LAB MCHC(LOINC 32.3-36.5 % ) Low MCHC 29.3 LAB RDW(LOINC) 11.6-14.4 % RDW High 21.0 LAB RDWSD(LOIN 36.1-45.8 fl C) RDW High SD 61.8 LAB PLT(LOINC) 141-365 thou/cmm Platelet 300 LAB MPV(LOINC) 8.7-12.0 fl MPV 10.4 LAB NRBCR(LOIN 0.0-0.2 % C) High Nucleated RBC % 0.4 LAB NRBCA(LOIN 0.00-0.01 thou/cmm C) High Nucleated RBC 0.03 Absolute Performed By: #### CBC1 #### [facility] [address] [place] [address] COMPREHENSIVE PANEL Collected: 03/07/2018 Status: F Source: [facility] 3:55 AM HEALTH SYSTEM REPOSITORY TYPE CODE TESTS RESULT OUT OF REFERENCE UNITS RANGE LAB NA(LOINC) 136-145 mEq/L Sodium Blood 140 LAB K(LOINC) 3.5-5.1 mEq/L Potassium Blood 4.1 LAB CL(LOINC) 98-107 mEq/L Chloride High Blood 109 LAB CO2(LOINC) 21-32 mEq/L CO2 Blood 22 LAB GLU(LOINC) 70-99 mg/dL Glucose Blood 86 LAB BUN(LOINC) 7-18 mg/dL BUN Blood 16 LAB CREA(LOINC 0.67-1.17 mg/dL ) Creatinine Blood 0.79 LAB CA(LOINC) 8.5-10.1 mg/dL Low Calcium Blood 7.9 LAB ALB(LOINC) 3.4-5.0 g/dL Low Albumin Blood 2.6 LAB TP(LOINC) 6.4-8.2 g/dL Low Total Protein 5.0 LAB AST(LOINC) 9-37 U/L Low AST-SGOT Blood 8 LAB ALT(LOINC) 12-78 U/L ALT-SGPT Blood 12 LAB ALKP(LOINC 46-116 U/L ) Alk High Phosphatase 117 LAB BILIT(LOIN 0.2-1.0 mg/dL C) Total Bilirubin 0.5 LAB ANGAP(LOIN 8-16 C) Anion Gap 13 Performed By: #### P14 #### [place] [address] HEMOGRAM/DIFF Collected: 03/06/2018 Status: F Source: [facility] 6:00 HEALTH SYSTEM REPOSITORY TYPE CODE TESTS RESULT OUT OF REFERENCE UNITS RANGE LAB WBC(LOINC) 4.23-9.07 thou/cmm WBC High 13.29 LAB RBC(LOINC) 4.63-6.08 mil/cmm RBC Low 3.85 LAB HGB(LOINC) 13.7-17.5 g/dL Hgb Low 9.0 LAB HCT(LOINC) 40.1-51.0 % Hct Low 31.6 LAB MCV(LOINC) 83.2-95.6 fl MCV Low 82.1 LAB MCH(LOINC) 25.7-32.2 pg MCH Low 23.4 LAB MCHC(LOINC 32.3-36.5 % ) MCHC Low 28.5 LAB RDW(LOINC) 11.6-14.4 % RDW High 20.9 LAB RDWSD(LOIN 36.1-45.8 fl C) RDW SD High 62.0 LAB PLT(LOINC) 141-365 thou/cmm Platelet 297 LAB MPV(LOINC) 8.7-12.0 fl MPV 11.1 LAB NRBCR(LOIN 0.0-0.2 % C) Nucleated RBC % High 0.4 LAB NRBCA(LOIN 0.00-0.01 thou/cmm C) Nucleated RBC High Absolute 0.05 LAB ELLIP(LOIN C) Elliptocytosis Slight LAB POLY(LOINC ) Polychromasia Few LAB SEG(LOINC) % Seg Neutrophil 82.0 LAB IGRE(LOINC % ) Immature Grans 1.40 LAB LYMPH(LOIN % C) Lymphocyte 7.7 LAB MNO(LOINC) % Monocyte 4.2 LAB EOSIN(LOIN % C) Eosinophil 1.9 LAB BASO(LOINC % ) Basophil 2.8 LAB SEGN(LOINC 1.78-5.38 thou/cmm ) Abs. Neut (ANC) High 10.90 LAB IGAB(LOINC 0.00-0.05 thou/cmm ) Abs Immature Grans High 0.19 LAB LYMN(LOINC 0.84-2.85 thou/cmm ) Abs. Lymph 1.02 LAB MONON(LOIN 0.30-0.82 thou/cmm C) Abs. Preston 0.56 LAB EOSN(LOINC 0.04-0.54 thou/cmm ) Abs. Eosin 0.25 LAB BASON(LOIN 0.01-0.08 thou/cmm C) Abs. 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 No Advance Directive: Health Literacy: 1. How often do you need to have someone help you when you read instructions, pamphlets, or other written material from your doctor or pharmacy? Never - 1 2. How confident are you filling out medical forms by yourself? Extremely - 1 If Patient scores > 3 on either question, the following interventions were put into place: Patient did not score > 3 FUNCTIONAL AND COGNITIVE/BEHAVIORAL PRIOR TO ADMISSION: Baseline Mental Status: Alert AND Oriented, Person, Place , Time and Situation Functional Status: Independent Does Patient Currently Receive Any Community Services or Home Care? None Equipment Prior to Admission: None Has the Patient Been in a Assisted Facility in the Past 30 days? No SOCIAL: Living Arrangement: Home Lives With: Spouse Financial Resources: Retired Primary Contact: Extended Emergency Contact Information Primary Emergency Contact: Donnie Flores Address: [address] [place] [id number] [place] [address] Mobile Relation: Spouse Secondary Emergency Contact: Brenda Ortega Mobile Relation: Daughter Supportive: Yes Other Important Patient Contacts: None Caregiver Assessment: Caregiver is ready, willing and able to meet the patient's needs as recommended by the inter-professional team? Yes Patient's transition needs and plan for meeting these needs: PT/OT eval Does the patient have an acute stroke diagnosis, or has the patient had a stroke during this admission? No Medication Adherence: I am convinced of the importance of my prescription medication: Agree mostly - 0 I worry that my prescription medication will do more harm than good to me Disagree mostly - 0 I feel financially burdened by my end-td-zriduh expenses for my prescription medication: Disagree mostly -0 Patient is categorized as low risk < 2 Are you interested in bedside delivery of your medications? No Food Concerns: In the Last Month, Have You had Trouble Getting Food? No trouble getting food During the Last Month, Have You Worried Whether Your Food Would Run Out Before You Had Enough Money to Buy More? No Is the Patient Psychosocially Complex? No ASSESSMENT AND PLAN: Medical Needs: None Psychosocial Needs: None FREEDOM OF CHOICE EXPLAINED: N/A POTENTIAL TRANSITION PLANS To Be Determined Pharmacy - [facility] [address] SIGNATURE: Joselin Thomas RN PATIENT NAME: Sabina Flores DATE: March 06, 2018 TIME: 2:28 PM PAGER/CONTACT #: [phone] BRIEF OP NOT Observed: 03/06/2018 Status: COMPLETED Source: [facility] 2:26 PM [facility] REPOSITORY HNO ID: [id number] Author: Jean Barnes Service: Gastroenterology Author Type: Physician Type: Brief Op Note Filed: 03/06/2018 2:35 PM Note Text: BRIEF OPERATIVE / PROCEDURE NOTE LOG ID: [id number] SURGERY/PROCEDURE DATE: 03/06/2018 SURGEON(S)/PROCEDURALIST(S) AND DOOR TECHNICIAN(S): Jean Barnes - Primary endoscopist INDICATION: Hematemesis after esophageal dilation PRE-OP/PRE-PROCEDURE DIAGNOSIS: same POST-OP/POST-PROCEDURE DIAGNOSIS: Longitudinal mucosal tear, healing, without current bleeding PROCEDURE(S): upper endoscopy ANESTHESIA: Conscious Sedation FINDINGS: 2 cm long mucosal tear evidently from recent esophageal dilation at upper esophagus. Healing , No current bleeding. ESTIMATED BLOOD LOSS: None SPECIMENS: none COMPLICATIONS: None POST-PROCEDURE RECOMMENDATIONS/FOLLOW UP: OK to resume diet and anticoagulation [id number] SIGNATURE: Jean Barnes MD PATIENT NAME: Sabina Flores DATE: 03/06/2018 TIME: normal NURSING PROG Observed: 03/06/2018 Status: COMPLETED Source: [place] 9:27 AM [facility] REPOSITORY HNO ID: [id number] Author: Judith HanksRn) TL Guajardo Service: ADT-Med/Surg Author Type: Registered Nurse Type: Nursing Progress Note Filed: 03/06/2018 9:33 PM Note Text: Nursing Progress Note Patient Name: Sabina Flores Patient Location: [id number]/[id number]* Daily Note: Spoke to Dr. Hosea Frank Cha from [facility] if we can start the every 12 hrs CBC tomorrow am because the last CBC was drawn at 1800 today. He said, 'that's okay, start it tomorrow am. This note was completed by: Judith Guajardo RN PROGRESS Observed: 03/06/2018 Status: COMPLETED Source: [place] 6:26 AM [facility] OTHER CAMPUS REPOSITORY HNO ID: [id number] Author: Chapincito Howard DO Service: Critical Care Author Type: Resident Type: Progress Notes Filed: 03/06/2018 6:49 AM Note Text: Attestation signed by Александр Arana at 03/06/2018 2:20 PM [facility] STAFF PHYSICIAN NOTE OF PERSONAL INVOLVEMENT IN CARE I have reviewed the progress note obtained and documented by the resident and I personally participated in the perry components. I have discussed the case and management of the patient's care. The following comments revise or confirm relevant perry components of the note and have added additional documentation as needed. ? Interval history: Notes and meds reviewed. Full ROS with the pt and RN done. No new issues. A/w EGD and transfer to the floor. No more bowel movements or hematemesis noted. Had received a total of 2 units of PRBC since presentation to OSH. ? Exam: Vitals stable NAD, pleasant A, O times 3, no FND RRR CTA B Soft, NT No pedal edema ? Data: Hb 7.5 Cr 0.86 D-scan: No evidence of deep venous thrombosis in the bilateral lower extremities. ? IMPRESSION: Mr Flores is a 78 year old white gentleman with PMH significant for laryngeal cancer s/p XRT/ chemo, SMV thrombosis, PUD s/p gastrectomy, esophageal stricture s/p multiple dilations and one most recently, recently diagnosed DVT on coumadin, and MMP admitted for upper GI bleed. ? 1. Acute blood loss anemia from UGIB 2. UGIB, likely related to recent esophageal dilations 3. Esophageal dilations in the recent past 4. Recent diagnosis of DVT/ coumadin coagulopathy 5. MMP 6. COPD ? PLAN: - monitor H/H - PPI - EGD today - no need for IVC filter for now - a/w floor transfer ? Code status: full ? PROGNOSIS: Fair ? Patient/Family Updated: no family at the bedside ? Discussed with RN, pharm D, and residents. D/w Dr Barnes ? SIGNATURE: Александр Arana MD [facility] PAGER:[phone] Medical Intensive Care Progress Note March 06, 2018 Patient Name: Sabina Flores Patient Location: [place] [address] [address]* Admission Date: 03/04/2018 Length of Stay: 2 Primary Service: Medical Intensive Care Case background: Patient is a 78 year old White male with a past medical history of laryngeal cancer s/p chemo/radiation, SMV thrombosis on anticoagulation, PUD s/p partial gastrectomy, esophageal stricture s/p dilation, COPD, HTN, who presented on 03/04/2018 for the complaint of hematemesis and melena a/w dizziness/lightheadedness, and was subsequently admitted to the MICU for upper GI bleed with acute blood loss anemia, and has since been treated with 2U pRBCs, Protonix. Interval History for 03/06/18: No acute overnight events. Patient scheduled for EGD today per gastro. Episode of melena stool overnight. Review of Systems Constitutional: Negative for chills and fever. Respiratory: Negative for shortness of breath. Cardiovascular: Negative for chest pain and palpitations. Gastrointestinal: Positive for melena. Negative for abdominal pain and nausea. Neurological: Negative for dizziness. 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 Assessment: Mesenteric venous thrombosis versus PUD versus pancreatitis versus esophageal perforation LUQ/midepigastric burning abdominal pain CT imaging showed superior mesenteric venous thrombosis Hx of pancreatitis, lipase 116 (11/29/17) Recent esophageal dilatation Plan: Consult vascular medicine, hematology Start heparin nomogram Start cipro/flagyl Continue famotidine Pain management - tylenol (mild), tramadol (moderate) Zofran prn nausea LR IVF Diet NPO KUB AM Lactate AM - Tobacco use disorder 01/11/2005 - Unspecified asthma(493.90) 03/03/2011 pt not aware Objective OBJECTIVE: 03/06/18 0300 03/06/18 0400 03/06/18 0425 03/06/18 0500 BP: 108/60 (!) 113/37 112/63 103/60 Pulse: 90 90 89 88 Resp: 21 25 20 21 Temp: TempSrc: SpO2: 98% 98% 98% 98% Weight: Height: Intake/Output Summary (Last 24 hours) at 03/06/18 0626 Last data filed at 03/05/18 1600 Gross per 24 hour Intake 74.6 ml Output 750 ml Net -675.4 ml Physical Exam Constitutional: He is oriented to person, place, and time. chornically ill appearing, thin Neck: Neck supple. No JVD present. Cardiovascular: Normal rate and regular rhythm. Murmur heard. Pulmonary/Chest: Decreased breath sounds bilaterally Abdominal: Soft. Bowel sounds are normal. There is no tenderness. Neurological: He is alert and oriented to person, place, and time. Skin: Skin is warm and dry. Labs: CBC: Recent Labs 03/06/18 0545 03/06/18 0210 03/05/18 2256 03/05/18 2013 03/05/18 1350 03/05/18 0910 03/05/18 0320 03/04/18 2145 WBC 8.09 7.95 -- 8.75 -- 9.63* 8.73 10.30* HB 7.5* 7.3* 7.4* 7.4* 7.7* 7.1* 7.2* 6.9* HCT 26.1* 24.9* 25.4* 25.1* 26.5* 24.1* 25.0* 23.8* PLT 296 304 -- 301 -- 307 350 351 MCV 81.1* 80.8* -- 80.4* -- 79.8* 81.7* 79.1* COAG: Recent Labs 03/05/18 0320 02/28/18 1016 INR 1.28 1.3* BMP: Recent Labs 03/06/18 02103/05/18 0320 GLUC 85 83 NA 142 142 K 4.1 4.7 CHLOR 113* 114* CO2 22 20* ANION 11 13 BUN 21* 27* CREAT 0.86 0.90 CHEM: Recent Labs 03/06/18 0210 03/05/18 0320 ALB 2.6* 2.5* TPROT 4.8* 4.7* CA 7.8* 7.8* MG -- 2.0 HEPATIC: Recent Labs 03/06/18 0210 03/05/18 0320 ALKPHOS 118* 107 ALT 12 12 AST 14 27 TBILI 0.4 0.7 Assessment/Plan Cardiovascular - Hypertension - normotensive overnight - continue to hold home meds Respiratory - COPD - Requires O2 at night at baseline - Continue spiriva and prn albuterol Neuro - AANDO x3 Gastrointestinal - Upper GI bleed - gastro on consult - likely 2/2 to recent esophageal dilation and anticoagulation therapy - plan for EGD today per gastro - a/w acute blood loss anemia, see below Current Diet Order DIET NPO Hematologic - Acute blood loss anemia - 2/2 upper GI bleed - 6.9 on presentation, s/p 2U pRBCs - Hgb stable in 7 range - transfuse if <7, continue to trend Hgb Component 03/04/2018 03/05/2018 03/05/2018 03/05/2018 03/05/2018 03/05/2018 03/06/2018 03/06/2018 3:20 AM 9:10 AM 1:50 PM 8:13 PM 10:56 PM 2:10 AM 5:45 AM HGB 6.9 (LL) 7.2 (L) 7.1 (L) 7.7 (L) 7.4 (L) 7.4 (L) 7.3 (L) 7.5 (L) Will discuss with Dr. Amor SIGNATURE: Chapincito Howard DO PATIENT NAME: Sabina Flores DATE: 03/06/2018 TIME: 6:26 AM PAGER: [phone] HEMOGRAM/DIFF Collected: 03/06/2018 Status: F Source: [facility] 5:45 AM HEALTH SYSTEM REPOSITORY TYPE CODE TESTS RESULT OUT OF REFERENCE UNITS RANGE LAB WBC(LOINC) 4.23-9.07 thou/cmm WBC 8.09 LAB RBC(LOINC) 4.63-6.08 mil/cmm Low RBC 3.22 LAB HGB(LOINC) 13.7-17.5 g/dL Low Hgb 7.5 LAB HCT(LOINC) 40.1-51.0 % Low Hct 26.1 LAB MCV(LOINC) 83.2-95.6 fl Low MCV 81.1 LAB MCH(LOINC) 25.7-32.2 pg Low MCH 23.3 LAB MCHC(LOINC 32.3-36.5 % ) Low MCHC 28.7 LAB RDW(LOINC) 11.6-14.4 % RDW High 20.4 LAB RDWSD(LOIN 36.1-45.8 fl C) RDW SD High 60.7 LAB PLT(LOINC) 141-365 thou/cmm Platelet 296 LAB MPV(LOINC) 8.7-12.0 fl MPV 10.2 LAB NRBCR(LOIN 0.0-0.2 % C) Nucleated RBC % 0.2 LAB SEG(LOINC) % Seg Neutrophil 80.6 LAB IGRE(LOINC % ) Immature Grans 1.70 LAB LYMPH(LOIN % C) Lymphocyte 8.3 LAB MNO(LOINC) % Monocyte 5.1 LAB EOSIN(LOIN % C) Eosinophil 2.2 LAB BASO(LOINC % ) Basophil 2.1 LAB NRBCA(LOIN 0.00-0.01 thou/cmm C) High Nucleated RBC 0.02 Absolute LAB SEGN(LOINC 1.78-5.38 thou/cmm ) Abs. High Neut (ANC) 6.52 LAB IGAB(LOINC 0.00-0.05 thou/cmm ) Abs High Immature Grans 0.14 LAB LYMN(LOINC 0.84-2.85 thou/cmm ) Low Abs. Lymph 0.67 LAB MONON(LOIN 0.30-0.82 thou/cmm C) Abs. Preston 0.41 LAB EOSN(LOINC 0.04-0.54 thou/cmm ) Abs. Eosin 0.18 LAB BASON(LOIN 0.01-0.08 thou/cmm C) Abs. High Baso 0.17 Performed By: #### [id number] #### [address] DVT LOWER BILATERAL Observed: 03/06/2018 Status: F Source: [facility] 5:05 AM HEALTH SYSTEM REPOSITORY Performed at [facility] APPROVED BY: Keegan Park MD BILATERAL LOWER EXTREMITY DEEP VENOUS ULTRASOUND WITH DOPPLER IMAGING CLINICAL HISTORY: Coagulation defect COMPARISON: None TECHNIQUE: Krueger scale with compression maneuvers, Color Doppler and Spectral Doppler at rest and with augmentation of the distal external iliac, common femoral, femoral and popliteal veins was performe d. The posterior tibial and peroneal veins were also evaluated. Images were obtained and stored in a permanent archive. RESULT: RIGHT LOWER EXTREMITY PROXIMAL DEEP VEINS Distal External Iliac and Common Femoral Veins: Compression: Normal Doppler: Normal, spontaneous respirophasic flow Normal response to augmentation Femoral vein: Compression: Normal Doppler: Normal, spontaneous flow Normal response to augmentation Popliteal vein: Compression: Normal Doppler: Normal, spontaneous flow Normal response to augmentation CALF DEEP VEINS Peroneal veins: No evidence of venous thrombus. Posterior tibial veins: No evidence of venous thrombus. LEFT LOWER EXTREMITY PROXIMAL DEEP VEINS Distal External Iliac and Common Femoral Veins: Compression: Normal Doppler: Normal, spontaneous respirophasic flow Normal response to augmentation Femoral vein: Compression: Normal Doppler: Normal, spontaneous flow Normal response to augmentation Popliteal vein: Compression: Normal Doppler: Normal, spontaneous flow Normal response to augmentation CALF DEEP VEINS Peroneal veins: No evidence of venous thrombus. Posterior tibial veins: No evidence of venous thrombus. IMPRESSION: No evidence of deep venous thrombosis in the bilateral lower extremities. HEMOGRAM/DIFF Collected: 03/06/2018 Status: F Source: [facility] 2:10 AM HEALTH SYSTEM REPOSITORY TYPE CODE TESTS RESULT OUT OF REFERENCE UNITS RANGE LAB WBC(LOINC) 4.23-9.07 thou/cmm WBC 7.95 LAB RBC(LOINC) 4.63-6.08 mil/cmm Low RBC 3.08 LAB HGB(LOINC) 13.7-17.5 g/dL Low Hgb 7.3 LAB HCT(LOINC) 40.1-51.0 % Low Hct 24.9 LAB MCV(LOINC) 83.2-95.6 fl Low MCV 80.8 LAB MCH(LOINC) 25.7-32.2 pg Low MCH 23.7 LAB MCHC(LOINC 32.3-36.5 % ) Low MCHC 29.3 LAB RDW(LOINC) 11.6-14.4 % RDW High 20.3 LAB RDWSD(LOIN 36.1-45.8 fl C) RDW SD High 60.4 LAB PLT(LOINC) 141-365 thou/cmm Platelet 304 LAB MPV(LOINC) 8.7-12.0 fl MPV 9.6 LAB NRBCR(LOIN 0.0-0.2 % C) High Nucleated RBC % 0.4 LAB SEG(LOINC) % Seg Neutrophil 80.5 LAB IGRE(LOINC % ) Immature Grans 1.40 LAB LYMPH(LOIN % C) Lymphocyte 9.2 LAB MNO(LOINC) % Monocyte 4.8 LAB EOSIN(LOIN % C) Eosinophil 2.1 LAB BASO(LOINC % ) Basophil 2.0 LAB NRBCA(LOIN 0.00-0.01 thou/cmm C) High Nucleated RBC 0.03 Absolute LAB SEGN(LOINC 1.78-5.38 thou/cmm ) Abs. High Neut (ANC) 6.40 LAB IGAB(LOINC 0.00-0.05 thou/cmm ) Abs High Immature Grans 0.11 LAB LYMN(LOINC 0.84-2.85 thou/cmm ) Low Abs. Lymph 0.73 LAB MONON(LOIN 0.30-0.82 thou/cmm C) Abs. Preston 0.38 LAB EOSN(LOINC 0.04-0.54 thou/cmm ) Abs. Eosin 0.17 LAB BASON(LOIN 0.01-0.08 thou/cmm C) Abs. High Baso 0.16 Performed By: #### CBCD1 #### [place] [address] COMPREHENSIVE PANEL Collected: 03/06/2018 Status: F Source: [facility] 2:10 AM HEALTH SYSTEM REPOSITORY TYPE CODE TESTS RESULT OUT OF REFERENCE UNITS RANGE LAB NA(LOINC) 136-145 mEq/L Sodium Blood 142 LAB K(LOINC) 3.5-5.1 mEq/L Potassium Blood 4.1 LAB CL(LOINC) 98-107 mEq/L Chloride High Blood 113 LAB CO2(LOINC) 21-32 mEq/L CO2 Blood 22 LAB GLU(LOINC) 70-99 mg/dL Glucose Blood 85 LAB BUN(LOINC) 7-18 mg/dL BUN Blood High 21 LAB CREA(LOINC 0.67-1.17 mg/dL ) Creatinine Blood 0.86 LAB CA(LOINC) 8.5-10.1 mg/dL Low Calcium Blood 7.8 LAB ALB(LOINC) 3.4-5.0 g/dL Low Albumin Blood 2.6 LAB TP(LOINC) 6.4-8.2 g/dL Low Total Protein 4.8 LAB AST(LOINC) 9-37 U/L AST-SGOT Blood 14 LAB ALT(LOINC) 12-78 U/L ALT-SGPT Blood 12 LAB ALKP(LOINC 46-116 U/L ) Alk High Phosphatase 118 LAB BILIT(LOIN 0.2-1.0 mg/dL C) Total Bilirubin 0.4 LAB ANGAP(LOIN 8-16 C) Anion Gap 11 Performed By: #### P14 #### [facility] [address] [place] [address] OPERATIVE NO Observed: 03/06/2018 Status: COMPLETED Source: [facility] 12:00 AM [facility] REPOSITORY HNO ID: [id number] Author: Jean Barnes Service: Gastroenterology Author Type: Physician Type: Operative Report Filed: 03/12/2018 7:31 AM Note Text: [facility] - Operative Report SABINA FLORES : 1940 AGE: 78. SEX: M PATIENT TYPE: I HOSP SVC: PULM LOCATION: [facility] ATTENDING PHYSICIAN: NICKI BRINK CSN NUMBER: [id number] DATE OF SURGERY/PROCEDURE: 03/06/2018 INCISION/PROCEDURE START TIME: 2:17 PM INCISION CLOSE/PROCEDURE END TIME: 2:21 PM PREOPERATIVE DIAGNOSIS: Hematemesis following a recent esophageal dilation. POSTOPERATIVE DIAGNOSIS: Long jejunal mucosal tear, upper third of esophagus, now heating, without signs of active bleeding. Scope advanced to the third part of duodenum. SURGEON: Jean Barnes MD DOOR TECHNICIAN: No Additional Staff SURGERY/PROCEDURE: Esophagogastroduodenoscopy. ANESTHESIA: Procedural Sedation MEDICATION GIVEN: Fentanyl 50 mcg IV and Versed 2 mg IV. INSTRUMENT USED: Olympus GIF videoendoscope. COMPLICATIONS NOTED: None. INDICATION FOR THE PROCEDURE: This 78-year-old male patient who has been having recurrent dysphagia after his radiation therapy for laryngeal carcinoma of 2 years ago underwent an EGD and dilation at the [facility] last week. Yesterday, he was admitted with history of hematemesis with drop in hemoglobin and a syncopal episode. DESCRIPTION OF PROCEDURE: Informed consent was obtained. The patient was placed in left lateral position. IV sedation was given in small increments. Vital signs were monitored throughout the procedure. An Olympus videoendoscope was passed per oral route into the hypopharynx. Scope was then passed the cricopharyngeal sphincter. Within first 3 cm of the cricopharyngeal sphincter, a 2-cm long longitudinal mucosal tear was noted, which shows whitish base now and is suggestive of a mucosal tear as expected after esophageal dilation. No active bleeding was noted. There was a small necrotic exudate, which is only about 2 mm in size in the lower part of the mucosal tear. Rest of the esophagus appeared to be completely normal with no polyps, mass, lesions, strictures, or varices. Z- line was noted at 40 cm from lips. The stomach showed evidence of antrectomy with Billroth 1 anastomosis. Otherwise, duodenum was noted to be normal. RECOMMENDATION: 1. To watch for any further bleeding. 2. The patient can resume a regular diet today. 3. The patient can be transferred out. 4. The patient can be started back on anticoagulation tomorrow. Jean Barnes MD GM:[id number] /[id number] HGB Collected: 03/05/2018 Status: F Source: [facility] 10:56 PM HEALTH SYSTEM REPOSITORY TYPE CODE TESTS RESULT OUT OF RANGE REFERENCE UNITS LAB HGBI(LOINC) 13.7-17.5 g/dL Low Hgb 7.4 Performed By: #### HGBI #### [facility] [address] [place] [address] HCT Collected: 03/05/2018 Status: F Source: [facility] 10:56 PM HEALTH SYSTEM REPOSITORY TYPE CODE TESTS RESULT OUT OF RANGE REFERENCE UNITS LAB HCTI(LOINC) 40.1-51.0 % Low Hct 25.4 Performed By: #### HCTI #### [facility] [address] [place] [address] HEMOGRAM/DIFF Collected: 03/05/2018 Status: F Source: [facility] 8:13 PM HEALTH SYSTEM REPOSITORY TYPE CODE TESTS RESULT OUT OF REFERENCE UNITS RANGE LAB WBC(LOINC) 4.23-9.07 thou/cmm WBC 8.75 LAB RBC(LOINC) 4.63-6.08 mil/cmm Low RBC 3.12 LAB HGB(LOINC) 13.7-17.5 g/dL Low Hgb 7.4 LAB HCT(LOINC) 40.1-51.0 % Low Hct 25.1 LAB MCV(LOINC) 83.2-95.6 fl Low MCV 80.4 LAB MCH(LOINC) 25.7-32.2 pg Low MCH 23.7 LAB MCHC(LOINC 32.3-36.5 % ) Low MCHC 29.5 LAB RDW(LOINC) 11.6-14.4 % RDW High 20.2 LAB RDWSD(LOIN 36.1-45.8 fl C) RDW SD High 58.9 LAB PLT(LOINC) 141-365 thou/cmm Platelet 301 LAB MPV(LOINC) 8.7-12.0 fl MPV 10.0 LAB NRBCR(LOIN 0.0-0.2 % C) High Nucleated RBC % 0.3 LAB SEG(LOINC) % Seg Neutrophil 83.3 LAB IGRE(LOINC % ) Immature Grans 1.10 LAB LYMPH(LOIN % C) Lymphocyte 7.3 LAB MNO(LOINC) % Monocyte 4.6 LAB EOSIN(LOIN % C) Eosinophil 2.1 LAB BASO(LOINC % ) Basophil 1.6 LAB NRBCA(LOIN 0.00-0.01 thou/cmm C) High Nucleated RBC 0.03 Absolute LAB SEGN(LOINC 1.78-5.38 thou/cmm ) Abs. High Neut (ANC) 7.29 LAB IGAB(LOINC 0.00-0.05 thou/cmm ) Abs High Immature Grans 0.10 LAB LYMN(LOINC 0.84-2.85 thou/cmm ) Low Abs. Lymph 0.64 LAB MONON(LOIN 0.30-0.82 thou/cmm C) Abs. Preston 0.40 LAB EOSN(LOINC 0.04-0.54 thou/cmm ) Abs. Eosin 0.18 LAB BASON(LOIN 0.01-0.08 thou/cmm C) Abs. High Baso 0.14 Performed By: #### CBCD1 #### [place] [address] PLAN OF CARE Observed: 03/05/2018 Status: COMPLETED Source: [facility] 3:56 PM CLINIC OTHER CAMPUS REPOSITORY HNO ID: [id number] Author: Ursula Sampson (Pharmacist) Service: (none) Author Type: Pharmacist Type: Plan of Care Filed: 03/05/2018 3:59 PM Note Text: MEDICATION HISTORY AND MEDICATION RECONCILIATION Patient Name:Seema Flores : 1940 Source of history:Pharmacy records: [facility] [place] Medication Nonadherence Identified: No barriers noted The above information represents the best possible medication history: Yes Reconciliation completed? Yes All CLAM GROWER medications addressed by LIP Additional comments: Patient was recently receiving Lovenox as bridge due to subtherapeutic INR of 1.3 on 02/28. I attempted to call the [facility] in [place] to find out what dose the patient was receiving, however, I could not get a hold of anyone. The last anticoagulation note mentioned that the patient did miss a dose of lovenox. [facility] had not filled any Lovenox when I called, therefore, I also don't know where he received the medication. Allergies: ALLERGIES Allergen Reactions - Doxycycline Other: See Comments pancreatitis Preferred Pharmacy: [facility] [place] Current CLAM GROWER Medications: Prior to Admission medications as of 03/05/18 1542 Medication Sig Last Dose Taking aspirin 81 mg chewable tablet Take 81 mg by mouth once daily. Yes warfarin (COUMADIN) 2.5 mg tablet Take 2.5 mg by mouth daily as directed. 2.5 mg / and 5 mg all other days Yes diltiazem CD (CARDIZEM CD) 120 mg 24 hr capsule Take 1 capsule by mouth twice daily. allopurinol (ZYLOPRIM) 300 mg tablet Take 1 tablet by mouth once daily. This can be crushed. hydroxyurea (HYDREA) 100 mg/mL oral liquid Take 5 mL by mouth once daily. Cholecalciferol, Vitamin D3, (VITAMIN D-3) 1,000 unit chew Take 1 tablet by mouth once daily. Chlorhexidine Gluconate (PERIDEX) 0.12 % solution Take 15 mL by mouth once daily. Swish for 30 seconds and then spit out. tiotropium-olodaterol (STIOLTO RESPIMAT) 2.5-2.5 mcg/actuation mist Inhale 2 Puffs as instructed once daily. PHYLLIS SAMPSON, PHARMACIST March 05, 2018 3:56 PM HGB Collected: 03/05/2018 Status: F Source: [facility] 1:50 PM HEALTH SYSTEM REPOSITORY TYPE CODE TESTS RESULT OUT OF RANGE REFERENCE UNITS LAB HGBI(LOINC) 13.7-17.5 g/dL Low Hgb 7.7 Performed By: #### HGBI #### [facility] [address] [place], [place] [address] HCT Collected: 03/05/2018 Status: F Source: [facility] 1:50 PM HEALTH SYSTEM REPOSITORY TYPE CODE TESTS RESULT OUT OF RANGE REFERENCE UNITS LAB HCTI(LOINC) 40.1-51.0 % Low Hct 26.5 Performed By: #### HCTI #### [facility] [address] [place], [place] [address] NUTRITION Observed: 03/05/2018 Status: COMPLETED Source: [facility] 1:42 PM CLINIC OTHER CAMPUS REPOSITORY HNO ID: [id number] Author: Molly Hendricks) LOUIS Claudio Service: Nutrition Therapy Author Type: Registered Dietitian Type: Nutrition Filed: 03/05/2018 1:54 PM Note Text: NUTRITION THERAPY INITIAL ASSESSMENT SERVICE DATE: 03/05/2018 SERVICE TIME: 1045am RECOMMENDED MALNUTRITION DIAGNOSIS: SEVERE PROTEIN-CALORIE MALNUTRITION In the context of Acute Illness or Injury based on: Subcutaneous Fat Loss: Moderate Loss Muscle Loss Severe Loss NUTRITION CARE PLAN: Problem, Etiology and Signs/Symptoms: Swallowing difficulty related to laryngeal cancer as evidenced by esophageal stricture 2/2 XRT treatment Intervention: 1. Follow closely for feeding plans per gi 2. Supplements with diet progression 3. 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 Earlier today morning patient had a large black tarry BM associated with one episode of hematemesis. He became concerned and expeditiously presented to [facility] where he was noted to have a hemoglobin drop from 11 to 7.6. He was started on a protonix drip and given one unit of PRBC. Patient is now hemodynamically stable and denies any overt pain. He admits to having a large peptic ulcer bleed about 50 years ago that ultimately required a gastrectomy, he has not had any significant sequelae of this disease in that time. He recently presented to GI of repeat EGD dilation, coumadin was held at that time. He was bridged with lovenox in the interim. Patient is currently HDS in the ICU. ? 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 Assessment: Mesenteric venous thrombosis versus PUD versus pancreatitis versus esophageal perforation LUQ/midepigastric burning abdominal pain CT imaging showed superior mesenteric venous thrombosis Hx of pancreatitis, lipase 116 (11/29/17) Recent esophageal dilatation Plan: Consult vascular medicine, hematology Start heparin nomogram Start cipro/flagyl Continue famotidine Pain management - tylenol (mild), tramadol (moderate) Zofran prn nausea LR IVF Diet NPO KUB AM Lactate AM - Tobacco use disorder 01/11/2005 - Unspecified asthma(493.90) 03/03/2011 pt not aware PAST SURGICAL HISTORY Procedure Laterality Date - COLONOSCOP W/ OR W/O BRS SPEC 2003 Colonoscopy - COLONOSCOP W/ OR W/O BRSH SPEC 02/20/2013 Colonoscopy - COLONOSCOP W/ OR W/O BRSH SPEC 03/30/16 Colonoscopy - EGD BIOPSY SINGLE/MULTIPLE 09/21/2017 - EGD W/O OR W/BRUSH/WASH 2003 EGD - EGD W/O OR W/BRUSH/WASH 02/20/13 EGD - ESOPH W/O [facility] SPEC [place] DIL 12-1-2003 Esophageal dilatation - LARYNGOSCOPY W/ BIOPSY 02/06/2014 - PARTIAL GASTRECTOMY 1970 bleeding ulcer - PAST SURGICAL HISTORY OF Left 08/29/2016 Floor of mouth resection, sialadochoplasty Current Diet Order DIET NPO DIET LIQUID Order Specific Question: Liquid Diet Answer: FULL LIQUID DIET NPO Lines and Drains: Peripheral 03/04/182058 Admission to Hospital Short Left Wrist 22 Gauge (Active) Peripheral 03/04/182058 Admission to Hospital Short Right Forearm 22 Gauge (Active) [facility] 03/04/182256 Assessment Short Right Wrist 20 Gauge (Active) Nutritional Intake Prior to Admission: S/p esophageal dilation 02/25/18. States he was able to eat solid food with only a mild sore throat. Has had an appetite. Concerned about long term care administrator nutrition support d/t frequency of his esophageal strictures. He has refused a corpak in the past, but ? PEG. GI symptoms: swallowing problems Nutrition Abdominal Exam: and bowel sounds are normal ANTHROPOMETRICS Height: 180.3 cm (5' 11) Admission Weight: 62.5 kg (137 lb 12.6 oz) Current Weight: 62.5 kg (137 lb 12.6 oz) Body mass index is 19.22 kg/m?. underweight Weight has not changed significantly Last Wt 03/04/18 : 62.5 kg (137 lb 12.6 oz) 01/24/18 : 54.4 kg (120 lb) 01/07/18 : 54.8 kg (120 lb 14.4 oz) 12/28/17 : 53.4 kg (117 lb 12.8 oz) 12/13/17 : 55.1 kg (121 lb 8 oz) 12/07/17 : 57.2 kg (126 lb) 12/02/17 : 53 kg (116 lb 13.5 oz) 10/23/17 : 52.2 kg (115 lb) 10/11/17 : 52.4 kg (115 lb 8 oz) 10/09/17 : 52.8 kg (116 lb 6 oz) 10/03/17 : 52.2 kg (115 lb) 09/18/17 : 53.7 kg (118 lb 6.2 oz) 04/11/17 : 55.8 kg (123 lb) 01/02/17 : 55.8 kg (123 lb) 11/20/16 : 57.1 kg (125 lb 12.8 oz) 08/21/16 : 60.3 kg (133 lb) 08/15/16 : 60.3 kg (133 lb) 08/03/16 : 59.7 kg (131 lb 11.2 oz) 03/30/16 : 57.6 kg (126 lb 15.8 oz) 02/21/16 : 57.6 kg (127 lb) Dosing Weight: 63 kg Resting Metabolic Rate: 1372 Estimated kilocalorie needs: 1890 kilocalories determined by 30 kcal/kg Estimated protein needs: 95 grams determined by 1.5 g/kg Dosing weight Estimated fluid needs: 1700 milliliters based on 1 mL per kcal NUTRITION FOCUSED PHYSICAL EXAM: Subcutaneous Fat Loss Orbital Moderate Triceps Moderate Mid-axillary at the iliac crest Unable to determine at this time Muscle Loss Locations: Temporalis Moderate Pectoralis Severe Deltoids Severe Interosseous Severe Latissimus dorsi, trapezius Unable to determine at this time Quadriceps Moderate Gastrocnemius Severe Potential micronutrient deficiency revealed in: No deficiency identified Edema: No Ascites: No Assessment of Functional Status: Functional capacity is unrelated to nutrition status Temperature Max in 24 hours: Temp (24hrs), Av.9 ?C (98.4 ?F), Min:35.8 ?C (96.4 ?F), Max:38.1 ?C (100.6 ?F) BP (!) 100/49 Pulse 85 Temp 36.5 ?C (97.7 ?F) Resp 21 Ht 180.3 cm (5' 11) Wt 62.5 kg (137 lb 12.6 oz) SpO2 100% BMI 19.22 kg/m? Recent Labs 03/05/18 0910 03/05/18 0320 GLUC -- 83 BUN -- 27* CREAT -- 0.90 NA -- 142 K -- 4.7 CHLOR -- 114* CO2 -- 20* ALB -- 2.5* P -- 3.0 HB 7.1* 7.2* HCT 24.1* 25.0* WBC 9.63* 8.73 MG -- 2.0 Potential Signs of Inflammation: leukocytosis, hypoalbuminemia, hyperthermia and tachycardia Current Facility-Administered Medications: albuterol 2.5 mg/0.5 mL 2.5 mg nebulizer solution (PROVENTIL) 2.5 mg INHALATION q 4 H PRN tiotropium 2.5 mcg/actuation 1 Puff (SPIRIVA RESPIMAT) 1 Puff INHALATION DAILY pantoprazole 40 mg injection (PROTONIX) 40 mg INTRAVENOUS BID AC () potassium chloride 80-120 mEq oral liquid 80-120 mEq ORAL/FEEDING TUBE PRN potassium chloride iv piggyback 20 mEq in sterile water 100 mL 20 mEq INTRAVENOUS PRN magnesium sulfate in water 2 g in sterile water 50 ml 2 g INTRAVENOUS PRN sodium glycerophosphate 45 mmol in NaCl 0.9% 250 mL (GLYCOPHOS) 45 mmol INTRAVENOUS PRN calcium gluconate 4 g in NaCl 0.9% 250 mL 4 g INTRAVENOUS PRN Date 03/04/18699 - 03/05/1865803/05/18699 - 03/06/18 0659 Shift 3623-4073 3774-8699 9119-2115 24 Hour Total 3629-9896 7395-4673 3348-9697 24 Hour Total I N T A K E IV 2588.5 2588.5 74.6 74.6 NS 0.9% 2500 2500 Pantoprazole IV 88.5 88.5 74.6 74.6 Blood Products 301 301 PRBC Intake (mL) 300 300 Packed Red Blood Cells Number of Units 1 1 Shift Total 2889.5 2889.5 74.6 74.6 O U T P U T Urine 450 450 525 525 Void (ml) 450 450 525 525 Urine Not Saved. 1 x 1 x # of BMs Number of BMs 1 x 1 x Shift Total 450 450 525 525 Weight (kg) 62.5 62.5 62.5 62.5 62.5 62.5 62.5 Pressure Injury 03/04/18 2100 Coccyx (Active) Stage Injury 1 03/05/2018 7:34 AM Motor Vehicles Inspector Related Pressure Injury No 03/05/2018 7:34 AM Dressing Status Clean, Dry AND Intact 03/05/2018 7:34 AM Frequency of Dressing Change Every 3 Days 03/05/2018 7:34 AM Dressing Change Due 03/07/18 03/05/2018 7:34 AM Dressing/Treatment Type Foam-Adhesive 03/05/2018 7:34 AM Drainage Description None 03/05/2018 7:34 AM Drainage Amount None 03/05/2018 7:34 AM Odor No 03/05/2018 7:34 AM Wound Surface Color Reedy 03/05/2018 7:34 AM Surrounding Skin Intact 03/05/2018 7:34 AM Number of days: 0 MNT Billing Type: Initial Assess/15 min 4 units SIGNATURE: Molly Claudio RD PATIENT NAME: Sabina Flores DATE: March 05, 2018 TIME: 1:42 PM PAGER: [phone] HEMOGRAM/DIFF Collected: 03/05/2018 Status: F Source: [facility] 9:10 AM HEALTH SYSTEM REPOSITORY TYPE CODE TESTS RESULT OUT OF REFERENCE UNITS RANGE LAB WBC(LOINC) 4.23-9.07 thou/cmm WBC High 9.63 LAB RBC(LOINC) 4.63-6.08 mil/cmm Low RBC 3.02 LAB HGB(LOINC) 13.7-17.5 g/dL Low Hgb 7.1 LAB HCT(LOINC) 40.1-51.0 % Low Hct 24.1 LAB MCV(LOINC) 83.2-95.6 fl Low MCV 79.8 LAB MCH(LOINC) 25.7-32.2 pg Low MCH 23.5 LAB MCHC(LOINC 32.3-36.5 % ) Low MCHC 29.5 LAB RDW(LOINC) 11.6-14.4 % RDW High 19.9 LAB RDWSD(LOIN 36.1-45.8 fl C) RDW SD High 58.1 LAB PLT(LOINC) 141-365 thou/cmm Platelet 307 LAB MPV(LOINC) 8.7-12.0 fl MPV 10.2 LAB SEG(LOINC) % Seg Neutrophil 88.1 LAB IGRE(LOINC % ) Immature Grans 1.00 LAB LYMPH(LOIN % C) Lymphocyte 4.2 LAB MNO(LOINC) % Monocyte 4.0 LAB EOSIN(LOIN % C) Eosinophil 1.5 LAB BASO(LOINC % ) Basophil 1.2 LAB SEGN(LOINC 1.78-5.38 thou/cmm ) Abs. High Neut (ANC) 8.48 LAB IGAB(LOINC 0.00-0.05 thou/cmm ) Abs High Immature Grans 0.10 LAB LYMN(LOINC 0.84-2.85 thou/cmm ) Low Abs. Lymph 0.40 LAB MONON(LOIN 0.30-0.82 thou/cmm C) Abs. Preston 0.39 LAB EOSN(LOINC 0.04-0.54 thou/cmm ) Abs. Eosin 0.14 LAB BASON(LOIN 0.01-0.08 thou/cmm C) Abs. High Baso 0.12 Result Comment: Smear scanned; tech agrees with automated differential Performed By: #### CBCD1 #### [place] [address] CONSULT Observed: 03/05/2018 Status: COMPLETED Source: [facility] 8:32 AM CLINIC OTHER CAMPUS REPOSITORY HNO ID: [id number] Author: Jean Barnes Service: Gastroenterology Author Type: Physician Type: Consults Filed: 03/05/2018 8:48 AM Note Text: CONSULT: GASTROENTEROLOGY SERVICE SERVICE DATE: 02/03/2017 SERVICE TIME: 8:32 AM REASON FOR CONSULT: Acute upper GI bleeding REQUESTING PHYSICIAN: Dr Heladio Alvarez SUBJECTIVE Mr. 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 Earlier today morning patient had a large black tarry BM associated with one episode of hematemesis. He became concerned and presented to [place] ED where he was noted to have a hemoglobin drop from 11 to 7.6. He was started on a protonix drip and given one unit of PRBCs. Patient is now hemodynamically stable and denies any overt pain. He admits to having a large peptic ulcer bleed about 50 years ago that ultimately required a gastrectomy in [place], [place], he has not had any significant sequelae of this disease in that time. 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 Over 2 years ago he started having difficulty in swallowing. He was scoped by Dr. Bashir in [place] and then referred to [facility] for stricture dilation. He has had 3 dilations follwing which he gets admitted to hospital for throat pain and bleeding. He recently presented to GI of repeat EGD dilation, coumadin was held at that time. He was bridged with lovenox in the interim. Last EGD with dilation on 02/26/18. Patient is currently HDS in the ICU. ? 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 Assessment: Mesenteric venous thrombosis versus PUD versus pancreatitis versus esophageal perforation LUQ/midepigastric burning abdominal pain CT imaging showed superior mesenteric venous thrombosis Hx of pancreatitis, lipase 116 (11/29/17) Recent esophageal dilatation Plan: Consult vascular medicine, hematology Start heparin nomogram Start cipro/flagyl Continue famotidine Pain management - tylenol (mild), tramadol (moderate) Zofran prn nausea LR IVF Diet NPO KUB AM Lactate AM - Tobacco use disorder 01/11/2005 - Unspecified asthma(493.90) 03/03/2011 pt not aware PAST SURGICAL HISTORY Procedure Laterality Date - COLONOSCOP W/ OR W/O BRS SPEC 2003 Colonoscopy - COLONOSCOP W/ OR W/O BRSH SPEC 02/20/2013 Colonoscopy - COLONOSCOP W/ OR W/O BRSH SPEC 03/30/16 Colonoscopy - EGD BIOPSY SINGLE/MULTIPLE 09/21/2017 - EGD W/O OR W/BRUSH/WASH 2003 EGD - EGD W/O OR W/BRUSH/WASH 02/20/13 EGD - ESOPH W/O [facility] SPEC BALLOON DIL --2003 Esophageal dilatation - LARYNGOSCOPY W/ BIOPSY 02/06/2014 - PARTIAL GASTRECTOMY 1970 bleeding ulcer - PAST SURGICAL HISTORY OF Left 08/29/2016 Floor of mouth resection, sialadochoplasty FAMILY HISTORY Problem Relation Age of Onset - Cancer Brother lung cancer - Cancer Brother bone cancer - Cancer Brother brain tumor or cancer - Coronary Artery Disease Father age 64, [place] - None Mother age 95 Current Facility-Administered Medications: potassium chloride 80-120 mEq oral liquid 80-120 mEq ORAL/FEEDING TUBE PRN Rocco (Res) [place] potassium chloride iv piggyback 20 mEq in sterile water 100 mL 20 mEq INTRAVENOUS PRN Rocco (Res) [place] magnesium sulfate in water 2 g in sterile water 50 ml 2 g INTRAVENOUS PRN Rocco (Res) [place] sodium glycerophosphate 45 mmol in NaCl 0.9% 250 mL (GLYCOPHOS) 45 mmol INTRAVENOUS PRN Rocco (Res) [place] calcium gluconate 4 g in NaCl 0.9% 250 mL 4 g INTRAVENOUS PRN Rocco (Res) [place] pantoprazole iv infusion 80 mg in NaCl 0.9% 100 mL (PROTONIX) 8 mg/hr INTRAVENOUS CONTINUOUS Heladio C Alvarez Last Rate: 10 mL/hr at 03/05/18 0734 8 mg/hr at 03/05/18 0734 ipratropium-albuterol 3 mL nebulizer solution (DUONEB) 3 mL INHALATION q 4 H PRN Rocco (Res) [place] ALLERGIES Allergen Reactions - Doxycycline Other: See Comments pancreatitis Fully Assessed 03/05/18 COMPLETE REVIEW OF SYSTEMS: PAIN ASSESSMENT: Negative for pain GENERAL: No weight loss, malaise or fevers HEAD AND NECK: No headache, swollen glands PULMONARY: No cough, wheezing, dyspnea on exertion, or shortness of breath CARDIOVASCULAR: No chest pain, palpitations ABDOMINAL: Per HPI NEUROLOGIC: No dizziness, lightheadedness, or weakness OPHTHALMOLOGIC: No visual abnormalities MUSCULOSKELETAL: No pain, weakness, or leg swelling SKIN: No rash OBJECTIVE PHYSICAL EXAM: 03/05/18 0530 03/05/18 0600 03/05/18 0633 03/05/18 0734 BP: (!) 87/47 (!) 91/45 105/52 (!) 101/49 Pulse: 92 95 91 94 Resp: Temp: (!) 35.9 ?C (96.6 ?F) 36.2 ?C (97.2 ?F) 36.1 ?C (97 ?F) (!) 35.8 ?C (96.4 ?F) TempSrc: Axillary SpO2: 100% 100% 100% 100% Weight: Height: GENERAL: Alert, no distress, cooperative, under nourished HEENT: PERRLA, normocephalic, no thyromegaly, no lymphadenopathy, trachea centrally located CHEST: Clear to auscultation and percussion bilaterally CVS: RRR, no murmur/gallop ABD: Flat , soft, non tender. No mass. NEURO: Cranial nerves intact, no lateralizing neurologic signs MSK: No wasting, no weakness EXT: No edema, no deformity SKIN: No jaundice, no rash DATA: Diagnostic tests reviewed for today's visit: Most recent labs and imaging results. IMPRESSION 1. Acute upper GI bleeding following esophageal dilation. 2. Esophageal stricture due to radiation therapy 3. COPD from previous smoking for 50 years RECOMMENDATION/PLAN 1. Will schedule for EGD and reevaluate status and possibly redilate the stricture 2. Transfuse as needed. Thanks. SIGNATURE: Jean Barnes MD PATIENT NAME: Sabina Flores DATE: 03/05/18 TIME: 8:32 AM PROGRESS Observed: 03/05/2018 Status: COMPLETED Source: [facility] 8:12 AM CLINIC OTHER CAMPUS REPOSITORY HNO ID: [id number] Author: Chapincito Howard DO Service: Critical Care Author Type: Resident Type: Progress Notes Filed: 03/05/2018 1:48 PM Note Text: Attestation signed by Александр Arana at 03/05/2018 6:05 PM (Updated) [facility] STAFF PHYSICIAN NOTE OF PERSONAL INVOLVEMENT IN CARE I have reviewed the progress note obtained and documented by the resident and I personally participated in the perry components. I have discussed the case and management of the patient's care. The following comments revise or confirm relevant perry components of the note and have added additional documentation as needed. Interval history: Notes and meds reviewed. Full ROS with the pt done. No pain issues. No more bowel movements or hematemesis noted. Had received a total of 2 units of PRBC since presentation to OSH. Exam: Vitals stable NAD, pleasant A, O times 3, no FND RRR CTA B Soft, NT No pedal edema Data: Hb 7.1 - 7.7 Cr 0.9 IMPRESSION: Mr Flores is a 78 year old white gentleman with PMH significant for laryngeal cancer s/p XRT/ chemo, SMV thrombosis, PUD s/p gastrectomy, esophageal stricture s/p multiple dilations and one most recently, recently diagnosed DVT on coumadin, and MMP admitted for upper GI bleed. 1. Acute blood loss anemia from UGIB 2. UGIB, likely related to recent esophageal dilations 3. Esophageal dilations in the recent past 4. Recent diagnosis of DVT/ coumadin coagulopathy 5. MMP 6. COPD PLAN: - monitor H/H - PPI - EGD tomorrow per Dr Barnes - CISCO dopplers +/- IVC filter - NPO for now - okay for floor, if continues to remain stable - restart home BDs Code status: full PROGNOSIS: Fair Patient/Family Updated: no family at the bedside Discussed with RN, pharm D, and residents. D/w Dr Barnes This patient has a high probability of sudden, clinically significant deterioration, which requires the highest level of physician preparedness to intervene urgently. I managed/supervised life or organ supporting interventions that required frequent physician assessment. I devoted my full attention to the direct care of this patient for the amount of time indicated below. Time I spent with family or surrogate(s) is included only if the patient was incapable of providing the necessary information or participating in medical decision making. Time devoted to teaching and to any procedures I billed separately is not included. Critical Care Documentation: The patient has the following organ/system impairment(s): Acute blood loss and GI bleed Time spent providing critical care services: 30 minutes. 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 Earlier today morning patient had a large black tarry BM associated with one episode of hematemesis. He became concerned and presented to [place] ED where he was noted to have a hemoglobin drop from 11 to 7.6. He was started on a protonix drip and given one unit of pRBC. Patient is now hemodynamically stable and denies any overt pain. He admits to having a large peptic ulcer bleed about 50 years ago that ultimately required a gastrectomy, he has not had any significant sequelae of this disease in that time. About 1 week ago patient had an esophageal dilation for which he has had in the past, coumadin was held at that time. He was bridged with lovenox in the interim. Patient is currently HDS in the ICU. Interval History: Patient received another unit of pRBCs on arrival to [facility] and is s/p 3L IVF. 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 Back Pain, Chronic History of Laryngeal Cancer Hypoxemia Severe Protein-Calorie Malnutrition (Hcc) Thrombocytosis (Hcc) Elevated Bilirubin Body Mass Index (Bmi) Less Than Or Equal to 19 in Adult Malignant Neoplasm of Larynx (Hcc) Dysphagia History of Peptic Ulcer Squamous Cell Carcinoma of Larynx (Hcc) Former Tobacco Use S/P Partial Gastrectomy Leukocytosis Vitamin D Deficiency Hypoalbuminemia Subclinical Hypothyroidism 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 Temp (24hrs), Av.9 ?C (98.5 ?F), Min:35.8 ?C (96.4 ?F), Max:38.1 ?C (100.6 ?F) NET FLUID BALANCE Intake/Output Summary (Last 24 hours) at 03/05/18 0812 Last data filed at 03/05/18 0700 Gross per 24 hour Intake 2902 ml Output 450 ml Net 2452 ml Lines, Drains, and Airways Line Peripheral 03/04/182058 Admission to Hospital Short Left Wrist 22 Gauge less than 1 day Peripheral 03/04/182058 Admission to Hospital Short Right Forearm 22 Gauge less than 1 day Peripheral 03/04/18 2257 Assessment Short Right Wrist 20 Gauge less than 1 day PHYSICAL EXAM PERFORMED: General: Awake and alert, in no distress, cooperative, chronically ill appearing Neck: Supple without JVD or Lymphadenopathy Cardiac: RRR, S1S2 with no MGR Lungs: Decreased sounds bilaterally Abdomen: Soft non-tender, non-distended, normal bowel sounds Extremities: purpura noted on all extremities DATA: LABS: Recent Labs 03/05/18 0320 WBC 8.73 RBC 3.06* HB 7.2* HCT 25.0* MCV 81.7* PLT 350 GLUC 83 BUN 27* CREAT 0.90 NA 142 K 4.7 CHLOR 114* CO2 20* TPROT 4.7* ALB 2.5* CA 7.8* ALKPHOS 107 TBILI 0.7 AST 27 ALT 12 PTSEC 13.1* INR 1.28 MG 2.0 Assessment/Plan PLAN: Upper GI Bleed - Protonix IV BID - GI on consult, plan for EGD tomorrow - Trend Hgb q6h - 6.9 -> 7.2 - s/p 2U pRBCs - hold for Hgb <7.0 - Hold anticoagulation, on warfarin at home - s/p vitamin K D/w Dr. Amor SIGNATURE: Chapincito Howard DO PATIENT NAME: Sabina Flores DATE: March 05, 2018 TIME: 8:12 AM PAGER: [phone] HEMOGRAM/DIFF Collected: 03/05/2018 Status: F Source: [facility] 3:20 AM HEALTH SYSTEM REPOSITORY TYPE CODE TESTS RESULT OUT OF REFERENCE UNITS RANGE LAB WBC(LOINC) 4.23-9.07 thou/cmm WBC 8.73 LAB RBC(LOINC) 4.63-6.08 mil/cmm Low RBC 3.06 LAB HGB(LOINC) 13.7-17.5 g/dL Low Hgb 7.2 LAB HCT(LOINC) 40.1-51.0 % Low Hct 25.0 LAB MCV(LOINC) 83.2-95.6 fl Low MCV 81.7 LAB MCH(LOINC) 25.7-32.2 pg Low MCH 23.5 LAB MCHC(LOINC 32.3-36.5 % ) Low MCHC 28.8 LAB RDW(LOINC) 11.6-14.4 % RDW High 20.2 LAB RDWSD(LOIN 36.1-45.8 fl C) RDW SD High 60.7 LAB PLT(LOINC) 141-365 thou/cmm Platelet 350 LAB MPV(LOINC) 8.7-12.0 fl MPV 10.1 LAB NRBCR(LOIN 0.0-0.2 % C) High Nucleated RBC % 0.3 LAB SEG(LOINC) % Seg Neutrophil 87.0 LAB IGRE(LOINC % ) Immature Grans 1.30 LAB LYMPH(LOIN % C) Lymphocyte 6.3 LAB MNO(LOINC) % Monocyte 2.9 LAB EOSIN(LOIN % C) Eosinophil 1.4 LAB BASO(LOINC % ) Basophil 1.1 LAB NRBCA(LOIN 0.00-0.01 thou/cmm C) High Nucleated RBC 0.03 Absolute LAB SEGN(LOINC 1.78-5.38 thou/cmm ) Abs. High Neut (ANC) 7.60 LAB IGAB(LOINC 0.00-0.05 thou/cmm ) Abs High Immature Grans 0.11 LAB LYMN(LOINC 0.84-2.85 thou/cmm ) Low Abs. Lymph 0.55 LAB MONON(LOIN 0.30-0.82 thou/cmm C) Low Abs. Preston 0.25 LAB EOSN(LOINC 0.04-0.54 thou/cmm ) Abs. Eosin 0.12 LAB BASON(LOIN 0.01-0.08 thou/cmm C) Abs. High Baso 0.10 Performed By: #### CBCD1 #### [facility] [address] [place] [address] PROTIME Collected: 03/05/2018 Status: F Source: [facility] 3:20 AM HEALTH SYSTEM REPOSITORY TYPE CODE TESTS RESULT OUT OF REFERENCE UNITS RANGE LAB PTI(LOINC) 9.7-13.0 sec Prothrombin High Time 13.1 LAB INR(LOINC) 0.90-1.30 INR 1.28 Result Comment: Note: Reference Range Change Vitamin K Antagonist (VKA) Therapeutic Range: INR 2 to 3 (Target INR of 2.5) Note: For patients treated with VKA drugs, such as warfarin, the [place] [employer] 2012 Guideline recommends a therapeutic INR range of 2 to 3 (target INR of 2.5). This recommendation includes high-risk patients with antiphospholipid syndrome with previous arterial or venous thromboembolism, current-generation mechanical or bioprosthetic aortic heart valve replacement. VKA Therapeutic Range for some Mechanical Valve Replacement: INR 2.5 to 3.5 (Target INR of 3) Note: Patients with mechanical aortic valve replacement and additional risk factors for thromboembolic events (atrial fibrillation, previous thromboembolism, LV dysfunction, hypercoagulable conditions) or an older generation mechanical AVR (i.e., ball in-Cage) or any mechanical MVR should have a INR therapeutic range of 2.5 to 3.5 target INR of 3). Belkys GH, et al. Chest 2012; 141:7S-47S Caridad MARTINEZ et al. JAC 2017; 70: 252-289 Performed By: #### PT #### [facility] [address] [place] [address] COMPREHENSIVE PANEL Collected: 03/05/2018 Status: F Source: [facility] 3:20 AM HEALTH SYSTEM REPOSITORY TYPE CODE TESTS RESULT OUT OF REFERENCE UNITS RANGE LAB NA(LOINC) 136-145 mEq/L Sodium Blood 142 LAB K(LOINC) 3.5-5.1 mEq/L Potassium Blood 4.7 LAB CL(LOINC) 98-107 mEq/L Chloride High Blood 114 LAB CO2(LOINC) 21-32 mEq/L Low CO2 Blood 20 LAB GLU(LOINC) 70-99 mg/dL Glucose Blood 83 LAB BUN(LOINC) 7-18 mg/dL BUN Blood High 27 LAB CREA(LOINC 0.67-1.17 mg/dL ) Creatinine Blood 0.90 LAB CA(LOINC) 8.5-10.1 mg/dL Low Calcium Blood 7.8 LAB ALB(LOINC) 3.4-5.0 g/dL Low Albumin Blood 2.5 LAB TP(LOINC) 6.4-8.2 g/dL Low Total Protein 4.7 LAB AST(LOINC) 9-37 U/L AST-SGOT Blood 27 LAB ALT(LOINC) 12-78 U/L ALT-SGPT Blood 12 LAB ALKP(LOINC 46-116 U/L ) Alk Phosphatase 107 LAB BILIT(LOIN 0.2-1.0 mg/dL C) Total Bilirubin 0.7 LAB ANGAP(LOIN 8-16 C) Anion Gap 13 Performed By: #### P14 #### [facility] [address] [place] [address] MAGNESIUM BLOOD Collected: 03/05/2018 Status: F Source: [facility] 3:20 AM HEALTH SYSTEM REPOSITORY TYPE CODE TESTS RESULT OUT OF REFERENCE UNITS RANGE LAB MAG(LOINC) 1.6-2.6 mg/dL Magnesium Blood 2.0 Performed By: #### MAG #### [facility] [address] [place] [address] PHOSPHORUS BLOOD Collected: 03/05/2018 Status: F Source: [facility] 3:20 AM HEALTH SYSTEM REPOSITORY TYPE CODE TESTS RESULT OUT OF REFERENCE UNITS RANGE LAB PHOS(LOINC 2.5-4.9 mg/dL ) Phosphorus Blood 3.0 Performed By: #### PHOS #### [facility] [address] [place] [address] EMERGENCY DEPARTMENT Observed: 03/05/2018 Status: F Source: [place] SUMMARY 1:12 AM [facility] [place] [facility] Medical Records Department [address] [place] [address] Emergency Department Summary 03/04/18 2335 MR#: [id number] Acct: [id number] Name: SABINA FLORES Rep #: [id number] : 1940 78 From: Sabina Richard DO PCP: Varun Wang MD Status: DEP ER - ER Visit Summary Date of Service: 03/04/18 Chief Complaint: GI bleed History of Present Illness: The patient is a 78 M who states that one week ago he underwent EGD for esophageal dilatation for esophageal stricture. This was his third 1 and was performed at [facility]. Patient states it appeared uncomplicated. This morning he woke and vomited blood and had 4 large black tarry stools that also had bright red blood with it. He states this is similar to the event that happened many decades ago which she had peptic ulcer disease. He is currently on Coumadin. He also has a history of vocal cord cancer. He states he is very weak and cold. Denies any chest pain or change in shortness of breath. Physical Examination: Initial blood pressure 79/48 heart rate of 110 respirations are 22 pulse ox 94% Gen: Well-nourished well-developed Head: Normocephalic atraumatic Eyes: Perrl EOMI ENT: TMs clear no rhinorrhea moist mucous membranes Neck: Supple no lymphadenopathy no JVD nontender CVS: Regular rate and tachycardic rhythm no murmurs normal S1-S2 Respiratory: No distress clear to auscultation bilaterally chest nontender Abdomen: Soft nontender nondistended normal bowel sounds no masses Back: Nontender Extremity: Nontender no edema Skin: Patient is pale Neuro: alert orientated 3 CN II-XII intact normal strength sensation reflexes Psych: Normal affect normal mood Test Results: Hemoglobin 7.6. INR 1.6. Lactic acid 2.2. Troponin negative. EKG sinus rate of 104. Chest x-ray negative. Emergency Department Course and Treatment: Patient's hemoglobin on 1018 of this year was 11.9. Thus he is a little bit over 4 g drop. He is orthostatic positive. He received Protonix saline vitamin K was typed and crossed for for [address] Becerril who recommends transfer to tertiary care. The patient is known to [facility] and they have asked to perhaps stay more local and for me to contact [facility]. I spoke with Dr. Amor is accepted the patient to the ICU. Impression: 1. Acute GI bleed 2. Anemia requiring confusion 3. Hypovolemic shock 4. Critical care time 35 minutes This note was generated with [employer] dictation software. It may contain incorrect words, spelling, and punctuation that were not noted in review of the chart prior to signing ED Disposition - Plan for ED Patient: Disposition: [facility] Chief Complaint: GI Bleed Referrals: Varun Wang MD [Primary Care Provider] - What to do if you have Problems For any increased pain, shortness of breath, bleeding, nausea or vomiting, chest pain, or any unexpected problems, contact your Primary Care Provider. Call [facility] ([phone]) or report to the closest Emergency Room. Call 911 if necessary. 03/05/18 0112 <Electronically signed by Sabina Richard DO> Date Sabina Richard DO Cosigner Signature (If Indicated): Date CC: Varun Wang MD PROGRESS Observed: 03/04/2018 Status: COMPLETED Source: [facility] 10:31 PM CLINIC OTHER CAMPUS REPOSITORY HNO ID: [id number] Author: Heladio Alvarez Service: Pulmonary Disease Author Type: Physician Type: Progress Notes Filed: 03/04/2018 11:05 PM Note Text: Attending Note: Perry findings confirmed. Patient examined. Data reviewed. Discussed with the housestaff, RN and Pharm.D. Patient was a transfer from [facility]. He has a history of SMA stenosis/thrombosis and is on Coumadin for this. He's had a history of peptic ulcer disease very remotely and had a partial gastrectomy 50 years ago for this. He has a history of laryngeal cancer and has had radiation therapy for this. He recently had an EGD for esophageal stenosis and subsequent dilation one week ago. Today he had a large black bowel movement at home and was symptomatic with dizziness, lightheadedness and near syncope. He presented to [facility]. At [facility] he also had hematemesis. He was given vitamin K subcutaneously and 1 unit of packed cells for a hemoglobin reported to the 7.6 (down from 11.8). His INR was 1.6. He was started on a PPI drip and given a liter of IV fluids at [facility]. SUBJECTIVE: GENERAL: Denies lightheadedness, dizziness, fever, sweats or chills. States he's thirsty. HENT: Denies nasal drainage or epistaxis. Complains of dry mouth and thirst. EYES: Denies visual change NECK: Denies neck pain or cervical adenopathy. CVS: Denies anginal type chest pain, PND, orthopnea or swelling of his ankles. LUNGS: Denies shortness of breath, cough, sputum production or pleuritic chest pain ABDOMEN: Denies abdominal pain, cramps, nausea/vomiting and has had no further hematemesis. Reports that I passed gas on the commode here but no blood. When they wiped me it was brown stool. Denies dysphagia or odynaphagia at this time. Reported black stool today while at home. MUSCULOSKELETAL: Denies myalgias, arthralgias or deep bony pain. SKIN: Denies skin rash other than minor bruising. NEURO: Denies focal motor or sensory deficits. EXAM: GENERAL APPEARANCE: Calm, comfortable and in no distress lying flat with head of the bed elevated 30?. HENT: Sinuses nontender. Nares without drainage. Pharynx Mallampati class I. Tongue is dry and pale. Edentulous. EYES: Pupils equal and reactive. Ocular movements intact. Conjunctiva are very pale. Sclera white. NECK: Thin and supple. No accessory muscle use or stridor. Voice seems normal. CVS: Regular rate and rhythm with heart rate 103 bpm in sinus rhythm on telemetry. Blood pressure 95/50 mmHg. No gallop. LUNGS: Wearing 2 L supplemental oxygen with saturation 100%. RR 16 while flat. No splinting, tripoding or pursed lip breathing. Clear lung michaels. ABDOMEN: Soft, flat with a transverse scar in the epigastric region from prior partial gastrectomy. No distention. No peritoneal findings or tenderness. MUSCULOSKELETAL: Symmetric tone and strength its 4/5 by MRC grading. No edema. SKIN: Warm, dry with pale nailbeds. No clubbing. NEURO: Alert and oriented ?3, attention normal, cranial nerves grossly intact. Speech intelligible without dysarthria. No confusion. Labs: Bedside ultrasound: performed by us showed a normally contractile heart. LV showed normal contractility with suggestion of LVH and complete chamber collapse in systole. RV was small and normally contractile. No pericardial effusion. Only subcostal views could be obtained. IVC was 0.72 cm in inspiration and 1.05 cm in expiration. Lungs reveal bilateral A lines with no B-lines. Echocardiogram: Performed 09/20/2017 showed normal LV and RV size and function with normal valves. EGD: Performed 02/26/2018 showed a benign-appearing intrinsic moderate stenosis at 17 cm from the incisors. The stenosis measured 1.3 cm (internal diameter) by a less than 1 cm (in length). Stenosis was transverse in orientation. Dilation was performed to 16 mm with only mild resistance. Duodenum was normal. Stomach was normal. Prior EGD 01/01/2018 showed esophageal candidiasis. Dilation of the entire esophagus was performed at that time to 14 mm. Impression: # Suspected acute upper GI bleed by history of melena and hematemesis. Possible esophagitis, gastriti, candidal esophagitis, esophageal tear from dilation or peptic ulceration worsened in the presence of Coumadin and aspirin. No history of cirrhosis or varices. # History of recent esophageal dilation (02/25/2018 and 01/01/2018) due to stricture. # Acute blood loss anemia due to the above # Intravascular volume depletion based on ultrasound assessment at the bedside # History of at least partial gastrectomy 50 years ago # History of SMA stenosis/thrombosis # History of smoking; quit 6 years ago # History of laryngeal cancer for which he had chemotherapy and radiation therapy remotely. # History of COPD # History of hypertension Recommendation: # Serial hemoglobins every 6 hours # IV fluid bolus and reassess intravascular volume status with ultrasound # Recheck INR in the morning # PPI drip for now # GI consultation # Transfuse PRBCs for hemoglobin less than 7-8 g/dL # Hold BP meds # Reassess The above reflects my independent exam and review. I saw and examined the patient myself personally. Plan as outlined. ?Greater than 30 minutes critical care time spent with the patient, housestaff and reviewing data. Heladio Alvarez MD 03/04/2018 10:31 PM TYPE AND SCREEN Collected: 03/04/2018 Status: F Source: [facility] 10:30 [facility] REPOSITORY TYPE CODE TESTS RESULT OUT OF REFERENCE UNITS RANGE LAB ABO(LOINC) O ABO Group LAB [employer](LOINC ) RH Type Positive LAB ABSCR(LOIN C) Antibody NEGATIVE Screen LAB BBCMT(LOIN C) Comment See Below Result Comment: Screen &/or Xmatch expires in 3 days at 12 midnight. Redraw patient at that time. Performed By: #### T&S #### [place] [address] RBC PRODUCTS Collected: 03/04/2018 Status: F Source: [facility] 10:30 PM HEALTH SYSTEM REPOSITORY TYPE CODE TESTS RESULT OUT OF REFERENCE UNITS RANGE LAB UNIT1(LOINC ) Xmatch Unit 1 see below Result Comment: Compatible Performed By: #### RBCPS #### [place] [address] PROGRESS Observed: 03/04/2018 Status: COMPLETED Source: [facility] 10:08 PM CLINIC OTHER CAMPUS REPOSITORY HNO ID: [id number] Author: Hosea Frank (Res) MD Rhoda Service: Critical Care Author Type: Resident Type: Progress Notes Filed: 03/04/2018 10:12 PM Note Text: Ultrasound to assess IVC diameter performed by Dr. Billy, supervised by Dr. Alvarez. Expiratory IVC diameter 1.05; Inspiration IVC diameter 0.75. Lung ultrasound showed A lines, no B lines. All findings indicative of dehydration. 1L normal saline bolus given. HEMOGRAM/DIFF Collected: 03/04/2018 Status: F Source: [facility] 9:45 PM HEALTH SYSTEM REPOSITORY TYPE CODE TESTS RESULT OUT OF REFERENCE UNITS RANGE LAB WBC(LOINC) 4.23-9.07 thou/cmm WBC High 10.30 LAB RBC(LOINC) 4.63-6.08 mil/cmm Low RBC 3.01 LAB HGB(LOINC) 13.7-17.5 g/dL Low Hgb alert 6.9 LAB HCT(LOINC) 40.1-51.0 % Low Hct 23.8 LAB MCV(LOINC) 83.2-95.6 fl Low MCV 79.1 LAB MCH(LOINC) 25.7-32.2 pg Low MCH 22.9 LAB MCHC(LOINC 32.3-36.5 % ) Low MCHC 29.0 LAB RDW(LOINC) 11.6-14.4 % RDW High 20.9 LAB RDWSD(LOIN 36.1-45.8 fl C) RDW SD High 60.1 LAB PLT(LOINC) 141-365 thou/cmm Platelet 351 LAB MPV(LOINC) 8.7-12.0 fl MPV 10.0 LAB NRBCR(LOIN 0.0-0.2 % C) Nucleated RBC % 0.2 LAB SEG(LOINC) % Seg Neutrophil 84.8 LAB IGRE(LOINC % ) Immature Grans 0.90 LAB LYMPH(LOIN % C) Lymphocyte 7.2 LAB MNO(LOINC) % Monocyte 5.1 LAB EOSIN(LOIN % C) Eosinophil 0.8 LAB BASO(LOINC % ) Basophil 1.2 LAB NRBCA(LOIN 0.00-0.01 thou/cmm C) High Nucleated RBC 0.02 Absolute LAB SEGN(LOINC 1.78-5.38 thou/cmm ) Abs. High Neut (ANC) 8.73 LAB IGAB(LOINC 0.00-0.05 thou/cmm ) Abs High Immature Grans 0.09 LAB LYMN(LOINC 0.84-2.85 thou/cmm ) Low Abs. Lymph 0.74 LAB MONON(LOIN 0.30-0.82 thou/cmm C) Abs. Preston 0.53 LAB EOSN(LOINC 0.04-0.54 thou/cmm ) Abs. Eosin 0.08 LAB BASON(LOIN 0.01-0.08 thou/cmm C) Abs. High Baso 0.12 Performed By: #### [id number] #### [facility] [address] [place], [place] [address] Observed: 03/04/2018 Status: F Source: [facility] MRSA SCREEN 9:45 PM HEALTH SYSTEM REPOSITORY Test performed at [facility] No MRSA detected. Performed By: #### MRSA #### [facility] [address] [place] [address] CONSULT Observed: 03/04/2018 Status: COMPLETED Source: [facility] 9:33 PM CLINIC OTHER CAMPUS REPOSITORY HNO ID: [id number] Author: Heladio Alvarez Service: Critical Care Author Type: Physician Type: Consults Filed: 03/04/2018 11:04 PM Note Text: CRITICAL CARE CONSULT NOTE SERVICE DATE: 03/04/2018 SERVICE TIME: 9:34 PM REASON FOR CONSULT: GI Bleeding REQUESTING PHYSICIAN: [facility]? 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 Earlier today morning patient had a large black tarry BM associated with one episode of hematemesis. He became concerned and expeditiously presented to [facility] where he was noted to have a hemoglobin drop from 11 to 7.6. He was started on a protonix drip and given one unit of PRBC. Patient is now hemodynamically stable and denies any overt pain. He admits to having a large peptic ulcer bleed about 50 years ago that ultimately required a gastrectomy, he has not had any significant sequelae of this disease in that time. He recently presented to of repeat EGD dilation, coumadin was held at that time. He was bridged with lovenox in the interim. Patient is currently HDS in the ICU. 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 Back Pain, Chronic History of Laryngeal Cancer Hypoxemia Severe Protein-Calorie Malnutrition (Hcc) Thrombocytosis (Hcc) Elevated Bilirubin Body Mass Index (Bmi) Less Than Or Equal to 19 in Adult Malignant Neoplasm of Larynx (Hcc) Dysphagia History of Peptic Ulcer Squamous Cell Carcinoma of Larynx (Hcc) Former Tobacco Use S/P Partial Gastrectomy Leukocytosis Vitamin D Deficiency Hypoalbuminemia Subclinical Hypothyroidism 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) Essential Hypertension Acute Gout of Multiple Sites Upper GI Bleed PAST MEDICAL HISTORY Diagnosis Date - ABNORMAL LIVER FUNCTION STUDY 01/11/2005 Alkaline phosphatemia - Body mass index (BMI) less than or equal to 19 in adult 03/28/2017 - COPD (chronic obstructive pulmonary disease) (HCC) 01/13/2013 - DIVERTICULOSIS OF COLON W/O BLEED 01/11/2005 - Diverticulosis of large intestine without hemorrhage 01/11/2005 - Dysphagia 09/18/2017 - 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 Assessment: Mesenteric venous thrombosis versus PUD versus pancreatitis versus esophageal perforation LUQ/midepigastric burning abdominal pain CT imaging showed superior mesenteric venous thrombosis Hx of pancreatitis, lipase 116 (11/29/17) Recent esophageal dilatation Plan: Consult vascular medicine, hematology Start heparin nomogram Start cipro/flagyl Continue famotidine Pain management - tylenol (mild), tramadol (moderate) Zofran prn nausea LR IVF Diet NPO KUB AM Lactate AM - Tobacco use disorder 01/11/2005 - Unspecified asthma(493.90) 03/03/2011 pt not aware PAST SURGICAL HISTORY Procedure Laterality Date - COLONOSCOP W/ OR W/O BRSH SPEC 2003 Colonoscopy - COLONOSCOP W/ OR W/O BRSH SPEC 02/20/2013 Colonoscopy - COLONOSCOP W/ OR W/O BRSH SPEC 03/30/16 Colonoscopy - EGD BIOPSY SINGLE/MULTIPLE 09/21/2017 - EGD W/O OR W/BRUSH/WASH 2003 EGD - EGD W/O OR W/BRUSH/WASH 02/20/13 EGD - ESOPH W/O [facility] SPEC BALLOON DIL 12-1-2003 Esophageal dilatation - LARYNGOSCOPY W/ BIOPSY 02/06/2014 - PARTIAL GASTRECTOMY 1970 bleeding ulcer - PAST SURGICAL HISTORY OF Left 08/29/2016 Floor of mouth resection, sialadochoplasty Social History Marital status: Spouse name: Years of education: Number of children: Social History Main Topics Smoking status: Former Smoker Packs/day: 2.00 Years: 52.00 Types: Cigarettes Quit date: 09/01/2013 Smokeless tobacco: Never Used Alcohol use: Yes 6.0 oz/week Cans of Beer (12oz): 4 per week Drug use: No Sexual activity: No VITAL SIGNS (last 24hrs min/max): Temp Av.1 ?C (100.5 ?F) Min: 37.9 ?C (100.2 ?F) Max: 38.1 ?C (100.6 ?F) Pulse Av.3 Min: 104 Max: 110 No Data Recorded Cuff BP Min: 94/49 Max: 116/53 Pain Score: 0/10 Vital signs reviewed. BP 116/53 Pulse 104 Temp (Src) 100.2 (Axillary) Resp 22 Ht 5' 11 (1.80m) Wt 137 lb 12.6 oz (62.5kg) SpO2 100% BMI 19.23 kg/(m2). Temp (24hrs), Av.1 ?C (100.5 ?F), Min:37.9 ?C (100.2 ?F), Max:38.1 ?C (100.6 ?F) NET FLUID BALANCE No intake or output data in the 24 hours ending 03/04/182133 MEDICATIONS Current Facility-Administered Medications: potassium chloride 80-120 mEq oral liquid 80-120 mEq ORAL/FEEDING TUBE PRN potassium chloride iv piggyback 20 mEq in sterile water 100 mL 20 mEq INTRAVENOUS PRN magnesium sulfate in water 2 g in sterile water 50 ml 2 g INTRAVENOUS PRN sodium glycerophosphate 45 mmol in NaCl 0.9% 250 mL (GLYCOPHOS) 45 mmol INTRAVENOUS PRN calcium gluconate 4 g in NaCl 0.9% 250 mL 4 g INTRAVENOUS PRN Lines, Drains, and Airways Line Peripheral 03/04/182058 Admission to Hospital Short Left Wrist 22 Gauge less than 1 day Peripheral 03/04/182058 Admission to Hospital Short Right Forearm 22 Gauge less than 1 day PHYSICAL EXAM PERFORMED: Cardiovascular: Regular rhythm, tachycardic, normal S1/S2, no M/R/G Respiratory: Clear to auscultation, no W/C/R No Data Recorded Abdomen: Soft, Nontender and non distended, no guarding or rebound tenderness Extremities: Edema- No, distal extremity pulses intact, Neurologic: Awake, oriented, Alert, Follows commands and Moving all extremities Respiratory/Nursing Documentation: O2 Therapy: Nasal Cannula (03/04/182099) HEMODYNAMIC DATA: Reviewed NUTRITION: Enteral Feeds: No NPO DATA: Diagnostic tests reviewed for today's visit, films/specimens were personally reviewed by me: Most recent labs and imaging results. WBC (thou/cmm) Date Value 03/04/2018 10.30 (H) RBC (mil/cmm) Date Value 03/04/2018 3.01 (L) Hemoglobin (g/dL) Date Value 12/05/2017 10.7 (L) HGB (g/dL) Date Value 03/04/2018 6.9 (LL) Hematocrit (%) Date Value 03/04/2018 23.8 (L) MCV (fl) Date Value 03/04/2018 79.1 (L) MCH (pg) Date Value 03/04/2018 22.9 (L) MCHC (%) Date Value 03/04/2018 29.0 (L) RDW-CV (%) Date Value 12/05/2017 20.2 (H) Platelet Count (thou/cmm) Date Value 03/04/2018 351 MPV (fl) Date Value 03/04/2018 10.0 Glucose (mg/dL) Date Value 12/05/2017 87 BUN (mg/dL) Date Value 12/05/2017 7 (L) Creatinine (mg/dL) Date Value 12/05/2017 0.92 Sodium (mmol/L) Date Value 12/05/2017 143 Potassium (mmol/L) Date Value 12/05/2017 3.4 (L) Chloride (mmol/L) Date Value 12/05/2017 109 (H) CO2 (mmol/L) Date Value 12/05/2017 22 Protein, Total (g/dL) Date Value 11/29/2017 6.0 (L) Albumin (g/dL) Date Value 11/29/2017 3.7 (L) Calcium (mg/dL) Date Value 12/05/2017 8.6 Alkaline Phosphatase (U/L) Date Value 11/29/2017 122 (H) Bilirubin, Total (mg/dL) Date Value 11/29/2017 1.0 AST (U/L) Date Value 11/29/2017 23 ALT (U/L) Date Value 11/29/2017 14 RAMA (no units) Date Value 03/03/2011 Positive (A) Rheumatoid Factor (IU/mL) Date Value 03/03/2011 93 (H) URINALYSIS Specific [place], Ur Date Value Ref Range Status 12/02/2017 1.013 1.005 - 1.030 Final Glucose, Urine Date Value Ref Range Status 12/02/2017 Negative Negative mg/dL Final Bilirubin, Urine Date Value Ref Range Status 12/02/2017 Negative Negative Final Ketones, Urine Date Value Ref Range Status 12/02/2017 Trace (A) Negative Final Hemoglobin/Blood,Ur Date Value Ref Range Status 12/02/2017 Negative Negative Final Protein, Urine Date Value Ref Range Status 12/02/2017 Negative Negative mg/dL Final WBC, Urine Date Value Ref Range Status 12/02/2017 6-10 (A) 0 - 5 /HPF Final LABS: ABG: Invalid input(s): [id number] Assessment/Plan IMPRESSION: Critical Care Documentation: The patient has the following organ/system impairment(s): Acute blood loss 1. UGIB with hematemesis and large melenic stool 2. Esophageal Strictures with recent EGD dilation (02/25/18) 3. 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 PUD s/p remote gastrectomy 4. COPD 5. Laryngeal Carcinoma s/p chemo/radiation 6. Cachectic MMP CRITICAL CARE PLAN: IV fluids and blood transfusions -protonix drip -NPO -transfusions prn, for Hb<7.0 -f/u Hb q6h -given 1 additional bolus of fluid, dry on abdominal ultrasound (IVC measured 0.72 on inspiration and 1.05 on expiration) -will monitor in ICU -hold all AC -aerosols PRN -GI c/s for EGD SIGNATURE: Rocco Billy MD PATIENT NAME: Sabina Flores DATE: March 04, 2018 TIME: 9:34 PM Attending Note: Perry findings confirmed. ?Patient examined. Data reviewed. ?Discussed with the housestaff, RN and Pharm.D. ? Patient was a transfer from [facility]. He has a history of SMA stenosis/thrombosis and is on Coumadin for this. He's had a history of peptic ulcer disease very remotely and had a partial gastrectomy 50 years ago for this. He has a history of laryngeal cancer and has had radiation therapy for this. He recently had an EGD for esophageal stenosis and subsequent dilation one week ago. Today he had a large black bowel movement at home and was symptomatic with dizziness, lightheadedness and near syncope. He presented to [facility]. At [facility] he also had hematemesis. ? He was given vitamin K subcutaneously and 1 unit of packed cells for a hemoglobin reported to the 7.6 (down from 11.8). His INR was 1.6. He was started on a PPI drip and given a liter of IV fluids at [facility]. ? SUBJECTIVE: GENERAL: Denies lightheadedness, dizziness, fever, sweats or chills. States he's thirsty. HENT: Denies nasal drainage or epistaxis. Complains of dry mouth and thirst. EYES: Denies visual change NECK: Denies neck pain or cervical adenopathy. CVS: Denies anginal type chest pain, PND, orthopnea or swelling of his ankles. LUNGS: Denies shortness of breath, cough, sputum production or pleuritic chest pain ABDOMEN: Denies abdominal pain, cramps, nausea/vomiting and has had no further hematemesis. Reports that I passed gas on the commode here but no blood. When they wiped me it was brown stool. Denies dysphagia or odynaphagia at this time. Reported black stool today while at home. MUSCULOSKELETAL: Denies myalgias, arthralgias or deep bony pain. SKIN: Denies skin rash other than minor bruising. NEURO: Denies focal motor or sensory deficits. ? EXAM: GENERAL APPEARANCE: Calm, comfortable and in no distress lying flat with head of the bed elevated 30?. HENT: Sinuses nontender. Nares without drainage. Pharynx Mallampati class I. Tongue is dry and pale. Edentulous. EYES: Pupils equal and reactive. Ocular movements intact. Conjunctiva are very pale. Sclera white. NECK: Thin and supple. No accessory muscle use or stridor. Voice seems normal. CVS: Regular rate and rhythm with heart rate 103 bpm in sinus rhythm on telemetry. Blood pressure 95/50 mmHg. No gallop. LUNGS: Wearing 2 L supplemental oxygen with saturation 100%. RR 16 while flat. No splinting, tripoding or pursed lip breathing. Clear lung michaels. ABDOMEN: Soft, flat with a transverse scar in the epigastric region from prior partial gastrectomy. No distention. No peritoneal findings or tenderness. MUSCULOSKELETAL: Symmetric tone and strength its 4/5 by MRC grading. No edema. SKIN: Warm, dry with pale nailbeds. No clubbing. NEURO: Alert and oriented ?3, attention normal, cranial nerves grossly intact. Speech intelligible without dysarthria. No confusion. ? ? Labs: Bedside ultrasound: performed by us showed a normally contractile heart. LV showed normal contractility with suggestion of LVH and complete chamber collapse in systole. RV was small and normally contractile. No pericardial effusion. Only subcostal views could be obtained. IVC was 0.72 cm in inspiration and 1.05 cm in expiration. Lungs reveal bilateral A lines with no B-lines. ? Echocardiogram: Performed 09/20/2017 showed normal LV and RV size and function with normal valves. ? EGD: Performed 02/26/2018 showed a benign-appearing intrinsic moderate stenosis at 17 cm from the incisors. The stenosis measured 1.3 cm (internal diameter) by a less than 1 cm (in length). Stenosis was transverse in orientation. Dilation was performed to 16 mm with only mild resistance. Duodenum was normal. Stomach was normal. Prior EGD 01/01/2018 showed esophageal candidiasis. Dilation of the entire esophagus was performed at that time to 14 mm. ? Impression: # Suspected acute upper GI bleed by history of melena and hematemesis. Possible esophagitis, gastriti, candidal esophagitis, esophageal tear from dilation or peptic ulceration worsened in the presence of Coumadin and aspirin. No history of cirrhosis or varices. # History of recent esophageal dilation (02/25/2018 and 01/01/2018) due to stricture. # Acute blood loss anemia due to the above # Intravascular volume depletion based on ultrasound assessment at the bedside # History of at least partial gastrectomy 50 years ago # History of SMA stenosis/thrombosis # History of smoking; quit 6 years ago # History of laryngeal cancer for which he had chemotherapy and radiation therapy remotely. # History of COPD # History of hypertension ? Recommendation: # Serial hemoglobins every 6 hours # IV fluid bolus and reassess intravascular volume status with ultrasound # Recheck INR in the morning. Hold anticoagulation and aspirin. # PPI drip for now # GI consultation # Transfuse PRBCs for hemoglobin less than 7-8 g/dL # Hold BP meds # Reassess ? The above reflects my independent exam and review. I saw and examined the patient myself personally. Plan as outlined. ? Heladio Alvarez MD 03/04/2018 10:31 PM LACTIC ACID Collected: 03/04/2018 Status: F Source: [place] 4:05 PM [facility] Order Comment: Yes/No query for Sepsis Lactate Rule Y TYPE CODE TESTS RESULT OUT OF REFERENCE UNITS RANGE LAB L503.6005 0.4-2.0 mmol/L High LACTIC ACID 2.2 Result Comment: Critical Result(s) Called at: 16:49:48 03/04/2018 by: Mell CARIAS Performed By: #### L503.6005 #### [facility] [address] [place] [place], [address] CHEST 1 VIEW Observed: 03/04/2018 Status: F Source: [place] (PORTABLE) 3:49 PM [facility] REPOSIT[facility] Imaging Services [address] [place] [address] Chest 1 View (Portable) MR#: [id number] Acct: [id number] Name: SABINA FLORES Rep #: [id number] : 1940 78 From: Rishi Arambula MD PCP: Varun Wang MD Status: REG ER Study: Chest 1 View (Portable) Date of Exam: 03/04/18 Exam# [id number] Ordering Dr: Sabina Richard DO STUDY: X-RAY CHEST REASON FOR EXAM: Male, 78 years old. Short of breath and weakness. TECHNIQUE: Single AP portable view of the chest. COMPARISON: 11/29/2017. FINDINGS: There is hyperinflation of the lungs consistent with chronic obstructive lung disease (COPD). No infiltrates. No effusions. There is no demonstrated pleural abnormality. Normal size heart. Normal mediastinum and malia. There is prominence of the pulmonary hilar arteries without peripheral pulmonary vascular congestion, suggesting pulmonary hypertension. There is atherosclerotic tortuosity of the aortic arch and descending thoracic aorta. Normal visualized thoracic spine. Normal visualized ribs, clavicles, and shoulders. There is no demonstrated abnormality of the visualized soft tissue structures of the upper abdomen. RAD/Chest 1 View (Portable) IMPRESSION: There are findings consistent with COPD. There is no evidence of acute chest disease.. Electronically Signed: Rishi Arambula MD at 16:14 EST , Service support , CC: Sabina Richard DO; Varun Wang MD Lining Scrubber: Signed TYPE AND SCREEN Collected: 03/04/2018 Status: F Source: [place] 3:35 PM [facility] Order Comment: Reason for Type AND Screen/Red Cells: HEMORRHAGE, GI BLEED TYPE CODE TESTS RESULT OUT OF RANGE REFERENCE UNITS LAB B10.0800 O Normal BLOOD TYPE GEL POSITIVE LAB B100.4000 Normal Antibody NEGATIVE Screen Performed By: #### B101.7450 #### [facility] [address] [place], [address] RC Collected: 03/04/2018 Status: F Source: [place] 3:35 PM [facility] TYPE CODE TESTS RESULT OUT OF REFERENCE UNITS RANGE LAB U100.0000 [id number] TRANSFUSED PRODUCT: T AND S with Crossmatch, Red Cells COUNT: 1 Performed By: #### U100.0000 #### Non-[facility] - refer to report for specific site PROTHROMBIN TIME W/INR Collected: 03/04/2018 Status: F Source: [place] 3:20 PM [facility] TYPE CODE TESTS RESULT OUT OF RANGE REFERENCE UNITS LAB L300.4150 11.7-14.9 SECONDS High PROTIME 18.9 LAB L300.4200 Normal INR 1.6 Performed By: #### L300.3900, L300.4310 #### [facility] [address] [place], [address] PARTIAL THROMBOPLAST Collected: 03/04/2018 Status: F Source: [place] TIME 3:20 PM [facility] TYPE CODE TESTS RESULT OUT OF REFERENCE UNITS RANGE LAB L300.4310 24.1-36.2 Seconds High PTT 41.4 Performed By: #### L300.3900, L300.4310 #### [facility] [address] [place], [address] CBC W/DIFF, AUTOMATED Collected: 03/04/2018 Status: F Source: [place] 3:20 PM [facility] TYPE CODE TESTS RESULT OUT OF REFERENCE UNITS RANGE LAB L100.1000 4.4-11.0 K/mm3 WBC High 19.5 LAB L100.1200 4.6-6.2 M/mm3 Low RBC 3.61 LAB L100.1300 13.0-16.5 g/dl Low HGB 7.6 LAB L100.1400 40-54 % Low HCT 27.6 LAB L100.1500 80-94 fL Low MCV 76.5 LAB L100.1600 27.0-32.0 pg Low MCH 21.1 LAB L100.1700 32-36 g/gl Low MCHC 27.5 LAB L100.1810 11.6-14.6 % RDW CV High 21.4 LAB L100.1820 35.1-43.9 fl RDW SD High 59.9 LAB L100.1900 150-450 K/mm3 PLT High 552 LAB L100.2000 6.2-12.0 fl MPV Normal 9.8 LAB L100.2620 2.0-7.7 X10 3/uL Absolute Neut High 15.9 LAB L100.2720 0.83-4.51 X10 3/ul Absolute Lymph Normal 1.37 LAB L100.7300 ANISO Normal 1+ LAB L100.7500 POLYCHROMASIA Normal RARE LAB L100.7600 HYPOCHROMASIA Normal 1+ Performed By: #### L100.0100 #### [facility] [address] [place], [address] COMPREHENSIVE METABOLIC Collected: 03/04/2018 Status: F Source: [facility] 3:20 PM [facility] TYPE CODE TESTS RESULT OUT OF RANGE REFERENCE UNITS LAB L501.0100 74-106 mg/dL High GLU 113 Result Comment: Fasting Glucose result from 100 to 125 mg/dL suggests IMPAIRED HOMEOSTASIS per A.D.A. criteria. Please note revised GLUCOSE reference range effective 2017. LAB L501.1000 7-18 mg/dL High BUN 29 LAB L501.1100 0.70-1.30 mg/dL Normal CREAT,SERUM 0.99 Result Comment: The validity of the calculated GFR AND GFRAA in patients over 70 years has not been determined. Clinical correlation is essential. LAB L501.1110 >60 mL/min Normal EST GFR 78 Result Comment: Non- GFR Calc LAB L501.1115 >60 mL/min Normal EST GFR - AA 94 Result Comment: GFR Calc LAB L501.1255 ml/min Normal Estimated CRCL 48.54 LAB L501.1300 10-20 RATIO High BUN/CRE 29.4 LAB L501.1500 6.4-8. g/dL Low 2 T PROT 5.8 LAB L501.1800 3.2-5. g/dL Low 0 ALB 2.9 LAB L501.1950 2.2-4. g/dL Normal 2 GLOB 2.9 LAB L501.2000 0.9-2. RATIO Normal 4 A/G 1.0 LAB L501.2200 8.5-10 mg/dL Low .1 CA 8.3 LAB L501.4100 15-37 U/L Normal AST 15 LAB L501.4305 45-117 U/L High ALK P 149 LAB L501.4405 16-61 U/L Normal ALT 18 LAB L501.4600 0.20-1 mg/dL Normal .00 T BILI 0.60 LAB L501.5300 136-14 mmol/L Normal 5 NA 142 LAB L501.5600 3.5-5. mmol/L Normal 1 K 4.8 LAB L501.5900 98-107 mmol/L High CL 108 LAB L501.6100 21.0-3 mmol/L Normal 2.0 CO2 26.0 LAB L501.6200 5-15 Normal GAP 8 Performed By: #### L500.4050, L501.2450, L501.4010 #### [facility] [address] [place], [place], [id number] LIPASE Collected: 03/04/2018 Status: F Source: [place] 3:20 PM [facility] TYPE CODE TESTS RESULT OUT OF REFERENCE UNITS RANGE LAB L501.2450 73-393 U/L Low LIPASE 63 Performed By: #### L500.4050, L501.2450, L501.4010 #### [facility] [address] [facility]. [place], [place], [id number] TROPONIN-I Collected: 03/04/2018 Status: F Source: [place] 3:20 PM [facility] TYPE CODE TESTS RESULT OUT OF RANGE REFERENCE UNITS LAB L501.4010 <0.045 ng/mL Normal < 0.015 TROPONIN-I Result Comment: TROPONIN-I EXPECTED VALUES <0.045 Negative 0.045 - 0.590 Consistent with Cardiac Damage > OR = 0.600 Critical Value Not every elevated troponin is indicative of IL. These values should be used with clinical judgement in examining the patient's clinical picture for diagnosis. To establish a diagnosis of IL versus myocardial injury, there must be a demonstrated rise and/or fall in the troponin values, in addition to ischemic symptoms, EKG changes, new regional wall motion abnormality, and/or angiographical evidence. PLEASE NOTE: REFERENCE RANGES EDITED 17 Performed By: #### L500.4050, L501.2450, L501.4010 #### [facility] [address] [place], [address] HOSP Observed: 03/04/2018 Status: COMPLETED Source: [facility] 12:00 AM [facility]INIC OTHER CAMPUS REPOSITORY Patient:Sabina Flores MRN: <[id number]> Height:5' 11(1.803 m) Weight:137 lb 12.6 oz (62.5 kg) Outpatient Medications as of 03/06/18: aspirin 81 mg chewable tablet warfarin (COUMADIN) 2.5 mg tablet diltiazem CD (CARDIZEM CD) 120 mg 24 hr capsule allopurinol (ZYLOPRIM) 300 mg tablet hydroxyurea (HYDREA) 100 mg/mL oral liquid Cholecalciferol, Vitamin D3, (VITAMIN D-3) 1,000 unit chew Chlorhexidine Gluconate (PERIDEX) 0.12 % solution tiotropium-olodaterol (STIOLTO RESPIMAT) 2.5-2.5 mcg/actuation mist Admission/Clinic Administered Medications as of 03/06/18: albuterol 2.5 mg/0.5 mL 2.5 mg nebulizer solution (PROVENTIL) tiotropium 2.5 mcg/actuation 1 Puff (SPIRIVA RESPIMAT) pantoprazole 40 mg injection (PROTONIX) potassium chloride 80-120 mEq oral liquid potassium chloride iv piggyback 20 mEq in sterile water 100 mL magnesium sulfate in water 2 g in sterile water 50 ml sodium glycerophosphate 45 mmol in NaCl 0.9% 250 mL (GLYCOPHOS) calcium gluconate 4 g in NaCl 0.9% 250 mL Problem List: Iron deficiency anemia [D50.9] Esophageal stricture [K22.2] Interstitial lung disease (HCC) [J84.9] Asthma [J45.909] COPD (chronic obstructive pulmonary disease) (HCC) [J44.9] Adenomatous colon polyp [D12.6] Carcinoma in situ of larynx [D02.0] Back pain, chronic [M54.9, G89.29] History of laryngeal cancer [Z85.21] Hypoxemia [R09.02] Severe protein-calorie malnutrition (HCC) [E43] Thrombocytosis (HCC) [D47.3] Elevated bilirubin [R17] Body mass index (BMI) less than or equal to 19 in adult [Z68.1] Malignant neoplasm of larynx (HCC) [C32.9] Dysphagia [R13.10] History of peptic ulcer [Z87.11] 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] Former tobacco use [Z87.891] S/P partial gastrectomy [Z90.3] Leukocytosis [D72.829] Vitamin D deficiency [E55.9] Hypoalbuminemia [E88.09] Subclinical hypothyroidism [E03.9] Low serum alkaline phosphatase [R74.8] 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 Earlier today morning patient had a large black tarry BM associated with one episode of hematemesis. He became concerned and expeditiously presented to [facility] where he was noted to have a hemoglobin drop from 11 to 7.6. He was started on a protonix drip and given one unit of PRBC. Patient is now hemodynamically stable and denies any overt pain. He admits to having a large peptic ulcer bleed about 50 years ago that ultimately required a gastrectomy, he has not had any significant sequelae of this disease in that time. He recently presented to GI of repeat EGD dilation, coumadin was held at that time. He was bridged with lovenox in the interim. Patient is currently HDS in the ICU. 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 Back Pain, Chronic History of Laryngeal Cancer Hypoxemia Severe Protein-Calorie Malnutrition (Hcc) Thrombocytosis (Hcc) Elevated Bilirubin Body Mass Index (Bmi) Less Than Or Equal to 19 in Adult Malignant Neoplasm of Larynx (Hcc) Dysphagia History of Peptic Ulcer Squamous Cell Carcinoma of Larynx (Hcc) Former Tobacco Use S/P Partial Gastrectomy Leukocytosis Vitamin D Deficiency Hypoalbuminemia Subclinical Hypothyroidism 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) Essential Hypertension Acute Gout of Multiple Sites Upper GI Bleed PAST MEDICAL HISTORY Diagnosis Date - ABNORMAL LIVER FUNCTION STUDY 01/11/2005 Alkaline phosphatemia - Body mass index (BMI) less than or equal to 19 in adult 03/28/2017 - COPD (chronic obstructive pulmonary disease) (HCC) 01/13/2013 - DIVERTICULOSIS OF COLON W/O BLEED 01/11/2005 - Diverticulosis of large intestine without hemorrhage 01/11/2005 - Dysphagia 09/18/2017 - 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 Assessment: Mesenteric venous thrombosis versus PUD versus pancreatitis versus esophageal perforation LUQ/midepigastric burning abdominal pain CT imaging showed superior mesenteric venous thrombosis Hx of pancreatitis, lipase 116 (11/29/17) Recent esophageal dilatation Plan: Consult vascular medicine, hematology Start heparin nomogram Start cipro/flagyl Continue famotidine Pain management - tylenol (mild), tramadol (moderate) Zofran prn nausea LR IVF Diet NPO KUB AM Lactate AM - Tobacco use disorder 01/11/2005 - Unspecified asthma(493.90) 03/03/2011 pt not aware PAST SURGICAL HISTORY Procedure Laterality Date - COLONOSCOP W/ OR W/O BRSH SPEC 2003 Colonoscopy - COLONOSCOP W/ OR W/O BRSH SPEC 02/20/2013 Colonoscopy - COLONOSCOP W/ OR W/O BRSH SPEC 03/30/16 Colonoscopy - EGD BIOPSY SINGLE/MULTIPLE 09/21/2017 - EGD W/O OR W/BRUSH/WASH 2003 EGD - EGD W/O OR W/BRUSH/WASH 02/20/13 EGD - ESOPH W/O BRSH SPEC BALLOON DIL 12-1-2003 Esophageal dilatation - LARYNGOSCOPY W/ BIOPSY 02/06/2014 - PARTIAL GASTRECTOMY 1970 bleeding ulcer - PAST SURGICAL HISTORY OF Left 08/29/2016 Floor of mouth resection, sialadochoplasty Social History Marital status: Spouse name: Years of education: Number of children: Social History Main Topics Smoking status: Former Smoker Packs/day: 2.00 Years: 52.00 Types: Cigarettes Quit date: 09/01/2013 Smokeless tobacco: Never Used Alcohol use: Yes 6.0 oz/week Cans of Beer (12oz): 4 per week Drug use: No Sexual activity: No VITAL SIGNS (last 24hrs min/max): Temp Av.1 ?C (100.5 ?F) Min: 37.9 ?C (100.2 ?F) Max: 38.1 ?C (100.6 ?F) Pulse Av.3 Min: 104 Max: 110 No Data Recorded Cuff BP Min: 94/49 Max: 116/53 Pain Score: 0/10 Vital signs reviewed. BP 116/53 Pulse 104 Temp (Src) 100.2 (Axillary) Resp 22 Ht 5' 11 (1.80m) Wt 137 lb 12.6 oz (62.5kg) SpO2 100% BMI 19.23 kg/(m2). Temp (24hrs), Av.1 ?C (100.5 ?F), Min:37.9 ?C (100.2 ?F), Max:38.1 ?C (100.6 ?F) NET FLUID BALANCE No intake or output data in the 24 hours ending 03/04/182133 MEDICATIONS Current Facility-Administered Medications: potassium chloride 80-120 mEq oral liquid 80-120 mEq ORAL/FEEDING TUBE PRN potassium chloride iv piggyback 20 mEq in sterile water 100 mL 20 mEq INTRAVENOUS PRN magnesium sulfate in water 2 g in sterile water 50 ml 2 g INTRAVENOUS PRN sodium glycerophosphate 45 mmol in NaCl 0.9% 250 mL (GLYCOPHOS) 45 mmol INTRAVENOUS PRN calcium gluconate 4 g in NaCl 0.9% 250 mL 4 g INTRAVENOUS PRN Lines, Drains, and Airways Line Peripheral 03/04/182058 Admission to Hospital Short Left Wrist 22 Gauge less than 1 day Peripheral 03/04/182058 Admission to Hospital Short Right Forearm 22 Gauge less than 1 day PHYSICAL EXAM PERFORMED: Cardiovascular: Regular rhythm, tachycardic, normal S1/S2, no M/R/G Respiratory: Clear to auscultation, no W/C/R No Data Recorded Abdomen: Soft, Nontender and non distended, no guarding or rebound tenderness Extremities: Edema- No, distal extremity pulses intact, Neurologic: Awake, oriented, Alert, Follows commands and Moving all extremities Respiratory/Nursing Documentation: O2 Therapy: Nasal Cannula (03/04/18 2100) HEMODYNAMIC DATA: Reviewed NUTRITION: Enteral Feeds: No NPO DATA: Diagnostic tests reviewed for today's visit, films/specimens were personally reviewed by me: Most recent labs and imaging results. WBC (thou/cmm) Date Value 03/04/2018 10.30 (H) RBC (mil/cmm) Date Value 03/04/2018 3.01 (L) Hemoglobin (g/dL) Date Value 12/05/2017 10.7 (L) HGB (g/dL) Date Value 03/04/2018 6.9 (LL) Hematocrit (%) Date Value 03/04/2018 23.8 (L) MCV (fl) Date Value 03/04/2018 79.1 (L) MCH (pg) Date Value 03/04/2018 22.9 (L) MCHC (%) Date Value 03/04/2018 29.0 (L) RDW-CV (%) Date Value 12/05/2017 20.2 (H) Platelet Count (thou/cmm) Date Value 03/04/2018 351 MPV (fl) Date Value 03/04/2018 10.0 Glucose (mg/dL) Date Value 12/05/2017 87 BUN (mg/dL) Date Value 12/05/2017 7 (L) Creatinine (mg/dL) Date Value 12/05/2017 0.92 Sodium (mmol/L) Date Value 12/05/2017 143 Potassium (mmol/L) Date Value 12/05/2017 3.4 (L) Chloride (mmol/L) Date Value 12/05/2017 109 (H) CO2 (mmol/L) Date Value 12/05/2017 22 Protein, Total (g/dL) Date Value 11/29/2017 6.0 (L) Albumin (g/dL) Date Value 11/29/2017 3.7 (L) Calcium (mg/dL) Date Value 12/05/2017 8.6 Alkaline Phosphatase (U/L) Date Value 11/29/2017 122 (H) Bilirubin, Total (mg/dL) Date Value 11/29/2017 1.0 AST (U/L) Date Value 11/29/2017 23 ALT (U/L) Date Value 11/29/2017 14 RAMA (no units) Date Value 03/03/2011 Positive (A) Rheumatoid Factor (IU/mL) Date Value 03/03/2011 93 (H) URINALYSIS Specific [place], Ur Date Value Ref Range Status 12/02/2017 1.013 1.005 - 1.030 Final Glucose, Urine Date Value Ref Range Status 12/02/2017 Negative Negative mg/dL Final Bilirubin, Urine Date Value Ref Range Status 12/02/2017 Negative Negative Final Ketones, Urine Date Value Ref Range Status 12/02/2017 Trace (A) Negative Final Hemoglobin/Blood,Ur Date Value Ref Range Status 12/02/2017 Negative Negative Final Protein, Urine Date Value Ref Range Status 12/02/2017 Negative Negative mg/dL Final WBC, Urine Date Value Ref Range Status 12/02/2017 6-10 (A) 0 - 5 /HPF Final LABS: ABG: Invalid input(s): [id number] Assessment/Plan IMPRESSION: Critical Care Documentation: The patient has the following organ/system impairment(s): Acute blood loss 1. UGIB with hematemesis and large melenic stool 2. Esophageal Strictures with recent EGD dilation (02/25/18) 3. 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 PUD s/p remote gastrectomy 4. COPD 5. Laryngeal Carcinoma s/p chemo/radiation 6. Cachectic MMP CRITICAL CARE PLAN: IV fluids and blood transfusions -protonix drip -NPO -transfusions prn, for Hb<7.0 -f/u Hb q6h -given 1 additional bolus of fluid, dry on abdominal ultrasound (IVC measured 0.72 on inspiration and 1.05 on expiration) -will monitor in ICU -hold all AC -aerosols PRN -GI c/s for EGD SIGNATURE: Rocco Billy MD PATIENT NAME: Sabina Flores DATE: March 04, 2018 TIME: 9:34 PM Attending Note: Perry findings confirmed. ?Patient examined. Data reviewed. ?Discussed with the housestaff, RN and Pharm.D. ? Patient was a transfer from [facility]. He has a history of SMA stenosis/thrombosis and is on Coumadin for this. He's had a history of peptic ulcer disease very remotely and had a partial gastrectomy 50 years ago for this. He has a history of laryngeal cancer and has had radiation therapy for this. He recently had an EGD for esophageal stenosis and subsequent dilation one week ago. Today he had a large black bowel movement at home and was symptomatic with dizziness, lightheadedness and near syncope. He presented to [facility]. At [facility] he also had hematemesis. ? He was given vitamin K subcutaneously and 1 unit of packed cells for a hemoglobin reported to the 7.6 (down from 11.8). His INR was 1.6. He was started on a PPI drip and given a liter of IV fluids at [facility]. ? SUBJECTIVE: GENERAL: Denies lightheadedness, dizziness, fever, sweats or chills. States he's thirsty. HENT: Denies nasal drainage or epistaxis. Complains of dry mouth and thirst. EYES: Denies visual change NECK: Denies neck pain or cervical adenopathy. CVS: Denies anginal type chest pain, PND, orthopnea or swelling of his ankles. LUNGS: Denies shortness of breath, cough, sputum production or pleuritic chest pain ABDOMEN: Denies abdominal pain, cramps, nausea/vomiting and has had no further hematemesis. Reports that I passed gas on the commode here but no blood. When they wiped me it was brown stool. Denies dysphagia or odynaphagia at this time. Reported black stool today while at home. MUSCULOSKELETAL: Denies myalgias, arthralgias or deep bony pain. SKIN: Denies skin rash other than minor bruising. NEURO: Denies focal motor or sensory deficits. ? EXAM: GENERAL APPEARANCE: Calm, comfortable and in no distress lying flat with head of the bed elevated 30?. HENT: Sinuses nontender. Nares without drainage. Pharynx Mallampati class I. Tongue is dry and pale. Edentulous. EYES: Pupils equal and reactive. Ocular movements intact. Conjunctiva are very pale. Sclera white. NECK: Thin and supple. No accessory muscle use or stridor. Voice seems normal. CVS: Regular rate and rhythm with heart rate 103 bpm in sinus rhythm on telemetry. Blood pressure 95/50 mmHg. No gallop. LUNGS: Wearing 2 L supplemental oxygen with saturation 100%. RR 16 while flat. No splinting, tripoding or pursed lip breathing. Clear lung michaels. ABDOMEN: Soft, flat with a transverse scar in the epigastric region from prior partial gastrectomy. No distention. No peritoneal findings or tenderness. MUSCULOSKELETAL: Symmetric tone and strength its 4/5 by MRC grading. No edema. SKIN: Warm, dry with pale nailbeds. No clubbing. NEURO: Alert and oriented ?3, attention normal, cranial nerves grossly intact. Speech intelligible without dysarthria. No confusion. ? ? Labs: Bedside ultrasound: performed by us showed a normally contractile heart. LV showed normal contractility with suggestion of LVH and complete chamber collapse in systole. RV was small and normally contractile. No pericardial effusion. Only subcostal views could be obtained. IVC was 0.72 cm in inspiration and 1.05 cm in expiration. Lungs reveal bilateral A lines with no B-lines. ? Echocardiogram: Performed 09/20/2017 showed normal LV and RV size and function with normal valves. ? EGD: Performed 02/26/2018 showed a benign-appearing intrinsic moderate stenosis at 17 cm from the incisors. The stenosis measured 1.3 cm (internal diameter) by a less than 1 cm (in length). Stenosis was transverse in orientation. Dilation was performed to 16 mm with only mild resistance. Duodenum was normal. Stomach was normal. Prior EGD 01/01/2018 showed esophageal candidiasis. Dilation of the entire esophagus was performed at that time to 14 mm. ? Impression: # Suspected acute upper GI bleed by history of melena and hematemesis. Possible esophagitis, gastriti, candidal esophagitis, esophageal tear from dilation or peptic ulceration worsened in the presence of Coumadin and aspirin. No history of cirrhosis or varices. # History of recent esophageal dilation (02/25/2018 and 01/01/2018) due to stricture. # Acute blood loss anemia due to the above # Intravascular volume depletion based on ultrasound assessment at the bedside # History of at least partial gastrectomy 50 years ago # History of SMA stenosis/thrombosis # History of smoking; quit 6 years ago # History of laryngeal cancer for which he had chemotherapy and radiation therapy remotely. # History of COPD # History of hypertension ? Recommendation: # Serial hemoglobins every 6 hours # IV fluid bolus and reassess intravascular volume status with ultrasound # Recheck INR in the morning. Hold anticoagulation and aspirin. # PPI drip for now # GI consultation # Transfuse PRBCs for hemoglobin less than 7-8 g/dL # Hold BP meds # Reassess ? The above reflects my independent exam and review. I saw and examined the patient myself personally. Plan as outlined. ? Heladio Alvarez MD 03/04/2018 10:31 PM Previous Version Hosea Frank Cha, MD, 03/04/2018 10:12 PM Signed Ultrasound to assess IVC diameter performed by Dr. Billy, supervised by Dr. Alvarez. Expiratory IVC diameter 1.05; Inspiration IVC diameter 0.75. Lung ultrasound showed A lines, no B lines. All findings indicative of dehydration. 1L normal saline bolus given. Heladio Alvarez MD 03/04/2018 11:05 PM Signed Attending Note: Perry findings confirmed. Patient examined. Data reviewed. Discussed with the housestaff, RN and Pharm.D. Patient was a transfer from [facility]. He has a history of SMA stenosis/thrombosis and is on Coumadin for this. He's had a history of peptic ulcer disease very remotely and had a partial gastrectomy 50 years ago for this. He has a history of laryngeal cancer and has had radiation therapy for this. He recently had an EGD for esophageal stenosis and subsequent dilation one week ago. Today he had a large black bowel movement at home and was symptomatic with dizziness, lightheadedness and near syncope. He presented to [facility]. At [facility] he also had hematemesis. He was given vitamin K subcutaneously and 1 unit of packed cells for a hemoglobin reported to the 7.6 (down from 11.8). His INR was 1.6. He was started on a PPI drip and given a liter of IV fluids at [facility]. SUBJECTIVE: GENERAL: Denies lightheadedness, dizziness, fever, sweats or chills. States he's thirsty. HENT: Denies nasal drainage or epistaxis. Complains of dry mouth and thirst. EYES: Denies visual change NECK: Denies neck pain or cervical adenopathy. CVS: Denies anginal type chest pain, PND, orthopnea or swelling of his ankles. LUNGS: Denies shortness of breath, cough, sputum production or pleuritic chest pain ABDOMEN: Denies abdominal pain, cramps, nausea/vomiting and has had no further hematemesis. Reports that I passed gas on the commode here but no blood. When they wiped me it was brown stool. Denies dysphagia or odynaphagia at this time. Reported black stool today while at home. MUSCULOSKELETAL: Denies myalgias, arthralgias or deep bony pain. SKIN: Denies skin rash other than minor bruising. NEURO: Denies focal motor or sensory deficits. EXAM: GENERAL APPEARANCE: Calm, comfortable and in no distress lying flat with head of the bed elevated 30?. HENT: Sinuses nontender. Nares without drainage. Pharynx Mallampati class I. Tongue is dry and pale. Edentulous. EYES: Pupils equal and reactive. Ocular movements intact. Conjunctiva are very pale. Sclera white. NECK: Thin and supple. No accessory muscle use or stridor. Voice seems normal. CVS: Regular rate and rhythm with heart rate 103 bpm in sinus rhythm on telemetry. Blood pressure 95/50 mmHg. No gallop. LUNGS: Wearing 2 L supplemental oxygen with saturation 100%. RR 16 while flat. No splinting, tripoding or pursed lip breathing. Clear lung michaels. ABDOMEN: Soft, flat with a transverse scar in the epigastric region from prior partial gastrectomy. No distention. No peritoneal findings or tenderness. MUSCULOSKELETAL: Symmetric tone and strength its 4/5 by MRC grading. No edema. SKIN: Warm, dry with pale nailbeds. No clubbing. NEURO: Alert and oriented ?3, attention normal, cranial nerves grossly intact. Speech intelligible without dysarthria. No confusion. Labs: Bedside ultrasound: performed by us showed a normally contractile heart. LV showed normal contractility with suggestion of LVH and complete chamber collapse in systole. RV was small and normally contractile. No pericardial effusion. Only subcostal views could be obtained. IVC was 0.72 cm in inspiration and 1.05 cm in expiration. Lungs reveal bilateral A lines with no B-lines. Echocardiogram: Performed 09/20/2017 showed normal LV and RV size and function with normal valves. EGD: Performed 02/26/2018 showed a benign-appearing intrinsic moderate stenosis at 17 cm from the incisors. The stenosis measured 1.3 cm (internal diameter) by a less than 1 cm (in length). Stenosis was transverse in orientation. Dilation was performed to 16 mm with only mild resistance. Duodenum was normal. Stomach was normal. Prior EGD 01/01/2018 showed esophageal candidiasis. Dilation of the entire esophagus was performed at that time to 14 mm. Impression: # Suspected acute upper GI bleed by history of melena and hematemesis. Possible esophagitis, gastriti, candidal esophagitis, esophageal tear from dilation or peptic ulceration worsened in the presence of Coumadin and aspirin. No history of cirrhosis or varices. # History of recent esophageal dilation (02/25/2018 and 01/01/2018) due to stricture. # Acute blood loss anemia due to the above # Intravascular volume depletion based on ultrasound assessment at the bedside # History of at least partial gastrectomy 50 years ago # History of SMA stenosis/thrombosis # History of smoking; quit 6 years ago # History of laryngeal cancer for which he had chemotherapy and radiation therapy remotely. # History of COPD # History of hypertension Recommendation: # Serial hemoglobins every 6 hours # IV fluid bolus and reassess intravascular volume status with ultrasound # Recheck INR in the morning # PPI drip for now # GI consultation # Transfuse PRBCs for hemoglobin less than 7-8 g/dL # Hold BP meds # Reassess The above reflects my independent exam and review. I saw and examined the patient myself personally. Plan as outlined. ?Greater than 30 minutes critical care time spent with the patient, housestaff and reviewing data. Heladio Alvarez MD 03/04/2018 10:31 PM Chapincito Howard DO, DO 03/05/2018 1:48 PM Attested Attestation signed by Александр Arana at 03/05/2018 6:05 PM (Updated) [facility] STAFF PHYSICIAN NOTE OF PERSONAL INVOLVEMENT IN CARE I have reviewed the progress note obtained and documented by the resident and I personally participated in the perry components. I have discussed the case and management of the patient's care. The following comments revise or confirm relevant perry components of the note and have added additional documentation as needed. Interval history: Notes and meds reviewed. Full ROS with the pt done. No pain issues. No more bowel movements or hematemesis noted. Had received a total of 2 units of PRBC since presentation to OSH. Exam: Vitals stable NAD, pleasant A, O times 3, no FND RRR CTA B Soft, NT No pedal edema Data: Hb 7.1 - 7.7 Cr 0.9 IMPRESSION: Mr Flores is a 78 year old white gentleman with PMH significant for laryngeal cancer s/p XRT/ chemo, SMV thrombosis, PUD s/p gastrectomy, esophageal stricture s/p multiple dilations and one most recently, recently diagnosed DVT on coumadin, and MMP admitted for upper GI bleed. 1. Acute blood loss anemia from UGIB 2. UGIB, likely related to recent esophageal dilations 3. Esophageal dilations in the recent past 4. Recent diagnosis of DVT/ coumadin coagulopathy 5. MMP 6. COPD PLAN: - monitor H/H - PPI - EGD tomorrow per Dr Barnes - LE dopplers +/- IVC filter - NPO for now - okay for floor, if continues to remain stable - restart home BDs Code status: full PROGNOSIS: Fair Patient/Family Updated: no family at the bedside Discussed with RN, pharm D, and residents. D/w Dr Barnes This patient has a high probability of sudden, clinically significant deterioration, which requires the highest level of physician preparedness to intervene urgently. I managed/supervised life or organ supporting interventions that required frequent physician assessment. I devoted my full attention to the direct care of this patient for the amount of time indicated below. Time I spent with family or surrogate(s) is included only if the patient was incapable of providing the necessary information or participating in medical decision making. Time devoted to teaching and to any procedures I billed separately is not included. Critical Care Documentation: The patient has the following organ/system impairment(s): Acute blood loss and GI bleed Time spent providing critical care services: 30 minutes. 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 Earlier today morning patient had a large black tarry BM associated with one episode of hematemesis. He became concerned and presented to [place] ED where he was noted to have a hemoglobin drop from 11 to 7.6. He was started on a protonix drip and given one unit of pRBC. Patient is now hemodynamically stable and denies any overt pain. He admits to having a large peptic ulcer bleed about 50 years ago that ultimately required a gastrectomy, he has not had any significant sequelae of this disease in that time. About 1 week ago patient had an esophageal dilation for which he has had in the past, coumadin was held at that time. He was bridged with lovenox in the interim. Patient is currently HDS in the ICU. Interval History: Patient received another unit of pRBCs on arrival to [facility] and is s/p 3L IVF. 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 Back Pain, Chronic History of Laryngeal Cancer Hypoxemia Severe Protein-Calorie Malnutrition (Hcc) Thrombocytosis (Hcc) Elevated Bilirubin Body Mass Index (Bmi) Less Than Or Equal to 19 in Adult Malignant Neoplasm of Larynx (Hcc) Dysphagia History of Peptic Ulcer Squamous Cell Carcinoma of Larynx (Hcc) Former Tobacco Use S/P Partial Gastrectomy Leukocytosis Vitamin D Deficiency Hypoalbuminemia Subclinical Hypothyroidism 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 Temp (24hrs), Av.9 ?C (98.5 ?F), Min:35.8 ?C (96.4 ?F), Max:38.1 ?C (100.6 ?F) NET FLUID BALANCE Intake/Output Summary (Last 24 hours) at 03/05/18 0812 Last data filed at 03/05/18 0700 Gross per 24 hour Intake 2902 ml Output 450 ml Net 2452 ml Lines, Drains, and Airways Line Peripheral 03/04/182058 Admission to Hospital Short Left Wrist 22 Gauge less than 1 day Peripheral 03/04/182058 Admission to Hospital Short Right Forearm 22 Gauge less than 1 day Peripheral 03/04/182256 Assessment Short Right Wrist 20 Gauge less than 1 day PHYSICAL EXAM PERFORMED: General: Awake and alert, in no distress, cooperative, chronically ill appearing Neck: Supple without JVD or Lymphadenopathy Cardiac: RRR, S1S2 with no MGR Lungs: Decreased sounds bilaterally Abdomen: Soft non-tender, non-distended, normal bowel sounds Extremities: purpura noted on all extremities DATA: LABS: Recent Labs 03/05/18 0320 WBC 8.73 RBC 3.06* HB 7.2* HCT 25.0* MCV 81.7* PLT 350 GLUC 83 BUN 27* CREAT 0.90 NA 142 K 4.7 CHLOR 114* CO2 20* TPROT 4.7* ALB 2.5* CA 7.8* ALKPHOS 107 TBILI 0.7 AST 27 ALT 12 PTSEC 13.1* INR 1.28 MG 2.0 Assessment/Plan PLAN: Upper GI Bleed - Protonix IV BID - GI on consult, plan for EGD tomorrow - Trend Hgb q6h - 6.9 -> 7.2 - s/p 2U pRBCs - hold for Hgb <7.0 - Hold anticoagulation, on warfarin at home - s/p vitamin K D/w Dr. Amor SIGNATURE: Chapincito Howard DO PATIENT NAME: Sabina Flores DATE: March 05, 2018 TIME: 8:12 AM PAGER: [phone] Removed attestation signed by Александр Arana at 03/05/2018 6:05 PM (removed by Александр Arana at 03/05/2018 6:05 PM) [facility] STAFF PHYSICIAN NOTE OF PERSONAL INVOLVEMENT IN CARE I have reviewed the progress note obtained and documented by the resident and I personally participated in the perry components. I have discussed the case and management of the patient's care. The following comments revise or confirm relevant perry components of the note and have added additional documentation as needed. Interval history: Notes and meds reviewed. Full ROS with the pt done. No pain issues. No more bowel movements or hematemesis noted. Had received a total of 2 units of PRBC since presentation to OSH. Exam: Vitals stable NAD, pleasant A, O times 3, no FND RRR CTA B Soft, NT No pedal edema Data: Hb 7.1 - 7.7 Cr 0.9 IMPRESSION: Mr Flores is a 78 year old white gentleman with PMH significant for laryngeal cancer s/p XRT/ chemo, SMV thrombosis, PUD s/p gastrectomy, esophageal stricture s/p multiple dilations and one most recently, recently diagnosed DVT on coumadin, and MMP admitted for upper GI bleed. 1. Acute blood loss anemia from UGIB 2. UGIB, likely related to recent esophageal dilations 3. Esophageal dilations in the recent past 4. Recent diagnosis of DVT/ coumadin coagulopathy 5. MMP PLAN: - monitor H/H - PPI - EGD tomorrow per Dr Barnes - LE dopplers +/- IVC filter - NPO for now - okay for floor, if continues to remain stable Code status: full PROGNOSIS: Fair Patient/Family Updated: no family at the bedside Discussed with RN, pharm D, and residents. D/w Dr Barnes This patient has a high probability of sudden, clinically significant deterioration, which requires the highest level of physician preparedness to intervene urgently. I managed/supervised life or organ supporting interventions that required frequent physician assessment. I devoted my full attention to the direct care of this patient for the amount of time indicated below. Time I spent with family or surrogate(s) is included only if the patient was incapable of providing the necessary information or participating in medical decision making. Time devoted to teaching and to any procedures I billed separately is not included. Critical Care Documentation: The patient has the following organ/system impairment(s): Acute blood loss and GI bleed Time spent providing critical care services: 30 minutes. 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 Earlier today morning patient had a large black tarry BM associated with one episode of hematemesis. He became concerned and presented to [place] ED where he was noted to have a hemoglobin drop from 11 to 7.6. He was started on a protonix drip and given one unit of PRBCs. Patient is now hemodynamically stable and denies any overt pain. He admits to having a large peptic ulcer bleed about 50 years ago that ultimately required a gastrectomy in [place], [place], he has not had any significant sequelae of this disease in that time. 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 Over 2 years ago he started having difficulty in swallowing. He was scoped by Dr. Bashir in [place] and then referred to [facility] for stricture dilation. He has had 3 dilations follwing which he gets admitted to hospital for throat pain and bleeding. He recently presented to GI of repeat EGD dilation, coumadin was held at that time. He was bridged with lovenox in the interim. Last EGD with dilation on 02/26/18. Patient is currently HDS in the ICU. ? 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 Assessment: Mesenteric venous thrombosis versus PUD versus pancreatitis versus esophageal perforation LUQ/midepigastric burning abdominal pain CT imaging showed superior mesenteric venous thrombosis Hx of pancreatitis, lipase 116 (11/29/17) Recent esophageal dilatation Plan: Consult vascular medicine, hematology Start heparin nomogram Start cipro/flagyl Continue famotidine Pain management - tylenol (mild), tramadol (moderate) Zofran prn nausea LR IVF Diet NPO KUB AM Lactate AM - Tobacco use disorder 01/11/2005 - Unspecified asthma(493.90) 03/03/2011 pt not aware PAST SURGICAL HISTORY Procedure Laterality Date - COLONOSCOP W/ OR W/O BRS SPEC 2003 Colonoscopy - COLONOSCOP W/ OR W/O BRSH SPEC 02/20/2013 Colonoscopy - COLONOSCOP W/ OR W/O BRSH SPEC 03/30/16 Colonoscopy - EGD BIOPSY SINGLE/MULTIPLE 09/21/2017 - EGD W/O OR W/BRUSH/WASH 2003 EGD - EGD W/O OR W/BRUSH/WASH 02/20/13 EGD - ESOPH W/O BRS SPEC BALLOON DIL --2003 Esophageal dilatation - LARYNGOSCOPY W/ BIOPSY 02/06/2014 - PARTIAL GASTRECTOMY 1970 bleeding ulcer - PAST SURGICAL HISTORY OF Left 08/29/2016 Floor of mouth resection, sialadochoplasty FAMILY HISTORY Problem Relation Age of Onset - Cancer Brother lung cancer - Cancer Brother bone cancer - Cancer Brother brain tumor or cancer - Coronary Artery Disease Father age 64, [place] - None Mother age 95 Current Facility-Administered Medications: potassium chloride 80-120 mEq oral liquid 80-120 mEq ORAL/FEEDING TUBE PRN Rocco (Res) [place] potassium chloride iv piggyback 20 mEq in sterile water 100 mL 20 mEq INTRAVENOUS PRN Rocco (Res) [place] magnesium sulfate in water 2 g in sterile water 50 ml 2 g INTRAVENOUS PRN Rocco (Res) [place] sodium glycerophosphate 45 mmol in NaCl 0.9% 250 mL (GLYCOPHOS) 45 mmol INTRAVENOUS PRN Rocco (Res) [place] calcium gluconate 4 g in NaCl 0.9% 250 mL 4 g INTRAVENOUS PRN Rocco (Res) [place] pantoprazole iv infusion 80 mg in NaCl 0.9% 100 mL (PROTONIX) 8 mg/hr INTRAVENOUS CONTINUOUS Heladio C Alvarez Last Rate: 10 mL/hr at 03/05/18 0734 8 mg/hr at 03/05/18 0734 ipratropium-albuterol 3 mL nebulizer solution (DUONEB) 3 mL INHALATION q 4 H PRN Rocco (Res) [place] ALLERGIES Allergen Reactions - Doxycycline Other: See Comments pancreatitis Fully Assessed 11/06/18 COMPLETE REVIEW OF SYSTEMS: PAIN ASSESSMENT: Negative for pain GENERAL: No weight loss, malaise or fevers HEAD AND NECK: No headache, swollen glands PULMONARY: No cough, wheezing, dyspnea on exertion, or shortness of breath CARDIOVASCULAR: No chest pain, palpitations ABDOMINAL: Per HPI NEUROLOGIC: No dizziness, lightheadedness, or weakness OPHTHALMOLOGIC: No visual abnormalities MUSCULOSKELETAL: No pain, weakness, or leg swelling SKIN: No rash OBJECTIVE PHYSICAL EXAM: 03/05/18 0530 03/05/18 0600 03/05/18 0633 03/05/18 0734 BP: (!) 87/47 (!) 91/45 105/52 (!) 101/49 Pulse: 92 95 91 94 Resp: Temp: (!) 35.9 ?C (96.6 ?F) 36.2 ?C (97.2 ?F) 36.1 ?C (97 ?F) (!) 35.8 ?C (96.4 ?F) TempSrc: Axillary SpO2: 100% 100% 100% 100% Weight: Height: GENERAL: Alert, no distress, cooperative, under nourished HEENT: PERRLA, normocephalic, no thyromegaly, no lymphadenopathy, trachea centrally located CHEST: Clear to auscultation and percussion bilaterally CVS: RRR, no murmur/gallop ABD: Flat , soft, non tender. No mass. NEURO: Cranial nerves intact, no lateralizing neurologic signs MSK: No wasting, no weakness EXT: No edema, no deformity SKIN: No jaundice, no rash DATA: Diagnostic tests reviewed for today's visit: Most recent labs and imaging results. IMPRESSION 1. Acute upper GI bleeding following esophageal dilation. 2. Esophageal stricture due to radiation therapy 3. COPD from previous smoking for 50 years RECOMMENDATION/PLAN 1. Will schedule for EGD and reevaluate status and possibly redilate the stricture 2. Transfuse as needed. Thanks. SIGNATURE: Jean Barnes MD PATIENT NAME: Sabina Flores DATE: 03/05/18 TIME: 8:32 AM [address] Claudio RD, RD 03/05/2018 1:54 PM Signed NUTRITION THERAPY INITIAL ASSESSMENT SERVICE DATE: 03/05/2018 SERVICE TIME: 1045am RECOMMENDED MALNUTRITION DIAGNOSIS: SEVERE PROTEIN-CALORIE MALNUTRITION In the context of Acute Illness or Injury based on: Subcutaneous Fat Loss: Moderate Loss Muscle Loss Severe Loss NUTRITION CARE PLAN: Problem, Etiology and Signs/Symptoms: Swallowing difficulty related to laryngeal cancer as evidenced by esophageal stricture 2/2 XRT treatment Intervention: 1. Follow closely for feeding plans per gi 2. Supplements with diet progression 3. 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 Earlier today morning patient had a large black tarry BM associated with one episode of hematemesis. He became concerned and expeditiously presented to [place] [facility] ed where he was noted to have a hemoglobin drop from 11 to 7.6. He was started on a protonix drip and given one unit of PRBC. Patient is now hemodynamically stable and denies any overt pain. He admits to having a large peptic ulcer bleed about 50 years ago that ultimately required a gastrectomy, he has not had any significant sequelae of this disease in that time. He recently presented to GI of repeat EGD dilation, coumadin was held at that time. He was bridged with lovenox in the interim. Patient is currently HDS in the ICU. ? 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 Assessment: Mesenteric venous thrombosis versus PUD versus pancreatitis versus esophageal perforation LUQ/midepigastric burning abdominal pain CT imaging showed superior mesenteric venous thrombosis Hx of pancreatitis, lipase 116 (11/29/17) Recent esophageal dilatation Plan: Consult vascular medicine, hematology Start heparin nomogram Start cipro/flagyl Continue famotidine Pain management - tylenol (mild), tramadol (moderate) Zofran prn nausea LR IVF Diet NPO KUB AM Lactate AM - Tobacco use disorder 01/11/2005 - Unspecified asthma(493.90) 03/03/2011 pt not aware PAST SURGICAL HISTORY Procedure Laterality Date - COLONOSCOP W/ OR W/O BRSH SPEC 2003 Colonoscopy - COLONOSCOP W/ OR W/O BRSH SPEC 02/20/2013 Colonoscopy - COLONOSCOP W/ OR W/O BRSH SPEC 03/30/16 Colonoscopy - EGD BIOPSY SINGLE/MULTIPLE 09/21/2017 - EGD W/O OR W/BRUSH/WASH 2003 EGD - EGD W/O OR W/BRUSH/WASH 02/20/13 EGD - ESOPH W/O BRSH SPEC BALLOON DIL 12-1-2003 Esophageal dilatation - LARYNGOSCOPY W/ BIOPSY 02/06/2014 - PARTIAL GASTRECTOMY 1970 bleeding ulcer - PAST SURGICAL HISTORY OF Left 08/29/2016 Floor of mouth resection, sialadochoplasty Current Diet Order DIET NPO DIET LIQUID Order Specific Question: Liquid Diet Answer: FULL LIQUID DIET NPO Lines and Drains: Peripheral 03/04/182058 Admission to Hospital Short Left Wrist 22 Gauge (Active) Peripheral 03/04/182058 Admission to Hospital Short Right Forearm 22 Gauge (Active) Peripheral 03/04/182256 Assessment Short Right Wrist 20 Gauge (Active) Nutritional Intake Prior to Admission: S/p esophageal dilation 02/25/18. States he was able to eat solid food with only a mild sore throat. Has had an appetite. Concerned about alf nutrition support d/t frequency of his esophageal strictures. He has refused a corpak in the past, but ? PEG. GI symptoms: swallowing problems Nutrition Abdominal Exam: and bowel sounds are normal ANTHROPOMETRICS Height: 180.3 cm (5' 11) Admission Weight: 62.5 kg (137 lb 12.6 oz) Current Weight: 62.5 kg (137 lb 12.6 oz) Body mass index is 19.22 kg/m?. underweight Weight has not changed significantly Last Wt 03/04/18 : 62.5 kg (137 lb 12.6 oz) 01/24/18 : 54.4 kg (120 lb) 01/07/18 : 54.8 kg (120 lb 14.4 oz) 12/28/17 : 53.4 kg (117 lb 12.8 oz) 12/13/17 : 55.1 kg (121 lb 8 oz) 12/07/17 : 57.2 kg (126 lb) 12/02/17 : 53 kg (116 lb 13.5 oz) 10/23/17 : 52.2 kg (115 lb) 10/11/17 : 52.4 kg (115 lb 8 oz) 10/09/17 : 52.8 kg (116 lb 6 oz) 10/03/17 : 52.2 kg (115 lb) 09/18/17 : 53.7 kg (118 lb 6.2 oz) 04/11/17 : 55.8 kg (123 lb) 01/02/17 : 55.8 kg (123 lb) 11/20/16 : 57.1 kg (125 lb 12.8 oz) 08/21/16 : 60.3 kg (133 lb) 08/15/16 : 60.3 kg (133 lb) 08/03/16 : 59.7 kg (131 lb 11.2 oz) 03/30/16 : 57.6 kg (126 lb 15.8 oz) 02/21/16 : 57.6 kg (127 lb) Dosing Weight: 63 kg Resting Metabolic Rate: 1372 Estimated kilocalorie needs: 1890 kilocalories determined by 30 kcal/kg Estimated protein needs: 95 grams determined by 1.5 g/kg Dosing weight Estimated fluid needs: 1700 milliliters based on 1 mL per kcal NUTRITION FOCUSED PHYSICAL EXAM: Subcutaneous Fat Loss Orbital Moderate Triceps Moderate Mid-axillary at the iliac crest Unable to determine at this time Muscle Loss Locations: Temporalis Moderate Pectoralis Severe Deltoids Severe Interosseous Severe Latissimus dorsi, trapezius Unable to determine at this time Quadriceps Moderate Gastrocnemius Severe Potential micronutrient deficiency revealed in: No deficiency identified Edema: No Ascites: No Assessment of Functional Status: Functional capacity is unrelated to nutrition status Temperature Max in 24 hours: Temp (24hrs), Av.9 ?C (98.4 ?F), Min:35.8 ?C (96.4 ?F), Max:38.1 ?C (100.6 ?F) BP (!) 100/49 Pulse 85 Temp 36.5 ?C (97.7 ?F) Resp 21 Ht 180.3 cm (5' 11) Wt 62.5 kg (137 lb 12.6 oz) SpO2 100% BMI 19.22 kg/m? Recent Labs 03/05/18 0910 03/05/18 0320 GLUC -- 83 BUN -- 27* CREAT -- 0.90 NA -- 142 K -- 4.7 CHLOR -- 114* CO2 -- 20* ALB -- 2.5* P -- 3.0 HB 7.1* 7.2* HCT 24.1* 25.0* WBC 9.63* 8.73 MG -- 2.0 Potential Signs of Inflammation: leukocytosis, hypoalbuminemia, hyperthermia and tachycardia Current Facility-Administered Medications: albuterol 2.5 mg/0.5 mL 2.5 mg nebulizer solution (PROVENTIL) 2.5 mg INHALATION q 4 H PRN tiotropium 2.5 mcg/actuation 1 Puff (SPIRIVA RESPIMAT) 1 Puff INHALATION DAILY pantoprazole 40 mg injection (PROTONIX) 40 mg INTRAVENOUS BID AC (0600/1600) potassium chloride 80-120 mEq oral liquid 80-120 mEq ORAL/FEEDING TUBE PRN potassium chloride iv piggyback 20 mEq in sterile water 100 mL 20 mEq INTRAVENOUS PRN magnesium sulfate in water 2 g in sterile water 50 ml 2 g INTRAVENOUS PRN sodium glycerophosphate 45 mmol in NaCl 0.9% 250 mL (GLYCOPHOS) 45 mmol INTRAVENOUS PRN calcium gluconate 4 g in NaCl 0.9% 250 mL 4 g INTRAVENOUS PRN Date 03/04/18 07 - 03/05/18 0659 03/05/18699 - 03/06/18 0659 Shift 9956-7168 4878-4152 9048-4090 24 Hour Total 9648-9264 1520-3592 1488-6696 24 Hour Total I N T A K E IV 2588.5 2588.5 74.6 74.6 NS 0.9% 2500 2500 Pantoprazole IV 88.5 88.5 74.6 74.6 Blood Products 301 301 PRBC Intake (mL) 300 300 Packed Red Blood Cells Number of Units 1 1 Shift Total 2889.5 2889.5 74.6 74.6 O U T P U T Urine 450 450 525 525 Void (ml) 450 450 525 525 Urine Not Saved. 1 x 1 x # of BMs Number of BMs 1 x 1 x Shift Total 450 450 525 525 Weight (kg) 62.5 62.5 62.5 62.5 62.5 62.5 62.5 Pressure Injury 03/04/18 2100 Coccyx (Active) Stage Injury 1 03/05/2018 7:34 AM Motor Vehicles Inspector Related Pressure Injury No 03/05/2018 7:34 AM Dressing Status Clean, Dry AND Intact 03/05/2018 7:34 AM Frequency of Dressing Change Every 3 Days 03/05/2018 7:34 AM Dressing Change Due 03/07/18 03/05/2018 7:34 AM Dressing/Treatment Type Foam-Adhesive 03/05/2018 7:34 AM Drainage Description None 03/05/2018 7:34 AM Drainage Amount None 03/05/2018 7:34 AM Odor No 03/05/2018 7:34 AM Wound Surface Color Reedy 03/05/2018 7:34 AM Surrounding Skin Intact 03/05/2018 7:34 AM Number of days: 0 MNT Billing Type: Initial Assess/15 min 4 units SIGNATURE: Molly Claudio RD PATIENT NAME: Sabina Flores DATE: March 05, 2018 TIME: 1:42 PM PAGER: [phone] TAM BEDOYA 03/05/2018 3:59 PM Signed MEDICATION HISTORY AND MEDICATION RECONCILIATION Patient Name:Seema Flores : 1940 Source of history:Pharmacy records: [facility] [place] Medication Nonadherence Identified: No barriers noted The above information represents the best possible medication history: Yes Reconciliation completed? Yes All CLAM GROWER medications addressed by LIP Additional comments: Patient was recently receiving Lovenox as bridge due to subtherapeutic INR of 1.3 on 02/28. I attempted to call the [facility] in [place] to find out what dose the patient was receiving, however, I could not get a hold of anyone. The last anticoagulation note mentioned that the patient did miss a dose of lovenox. [facility] had not filled any Lovenox when I called, therefore, I also don't know where he received the medication. Allergies: ALLERGIES Allergen Reactions - Doxycycline Other: See Comments pancreatitis Preferred Pharmacy: [facility] [place] Current CLAM GROWER Medications: Prior to Admission medications as of 03/05/18 1542 Medication Sig Last Dose Taking aspirin 81 mg chewable tablet Take 81 mg by mouth once daily. Yes warfarin (COUMADIN) 2.5 mg tablet Take 2.5 mg by mouth daily as directed. 2.5 mg / and 5 mg all other days Yes diltiazem CD (CARDIZEM CD) 120 mg 24 hr capsule Take 1 capsule by mouth twice daily. allopurinol (ZYLOPRIM) 300 mg tablet Take 1 tablet by mouth once daily. This can be crushed. hydroxyurea (HYDREA) 100 mg/mL oral liquid Take 5 mL by mouth once daily. Cholecalciferol, Vitamin D3, (VITAMIN D-3) 1,000 unit chew Take 1 tablet by mouth once daily. Chlorhexidine Gluconate (PERIDEX) 0.12 % solution Take 15 mL by mouth once daily. Swish for 30 seconds and then spit out. tiotropium-olodaterol (STIOLTO RESPIMAT) 2.5-2.5 mcg/actuation mist Inhale 2 Puffs as instructed once daily. PHYLLIS SAMPSON, PHARMACIST March 05, 2018 3:56 PM Chapincito Howard DO, DO 03/06/2018 6:49 AM Cosign Needed Medical Intensive Care Progress Note March 06, 2018 Patient Name: Sabina Flores Patient Location: [id number]/[place] [address]* Admission Date: 03/04/2018 Length of Stay: 2 Primary Service: Medical Intensive Care Case background: Patient is a 78 year old White male with a past medical history of laryngeal cancer s/p chemo/radiation, SMV thrombosis on anticoagulation, PUD s/p partial gastrectomy, esophageal stricture s/p dilation, COPD, HTN, who presented on 03/04/2018 for the complaint of hematemesis and melena a/w dizziness/lightheadedness, and was subsequently admitted to the MICU for upper GI bleed with acute blood loss anemia, and has since been treated with 2U pRBCs, Protonix. Interval History for 03/06/18: No acute overnight events. Patient scheduled for EGD today per gastro. Episode of melena stool overnight. Review of Systems Constitutional: Negative for chills and fever. Respiratory: Negative for shortness of breath. Cardiovascular: Negative for chest pain and palpitations. Gastrointestinal: Positive for melena. Negative for abdominal pain and nausea. Neurological: Negative for dizziness. 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 Assessment: Mesenteric venous thrombosis versus PUD versus pancreatitis versus esophageal perforation LUQ/midepigastric burning abdominal pain CT imaging showed superior mesenteric venous thrombosis Hx of pancreatitis, lipase 116 (11/29/17) Recent esophageal dilatation Plan: Consult vascular medicine, hematology Start heparin nomogram Start cipro/flagyl Continue famotidine Pain management - tylenol (mild), tramadol (moderate) Zofran prn nausea LR IVF Diet NPO KUB AM Lactate AM - Tobacco use disorder 01/11/2005 - Unspecified asthma(493.90) 03/03/2011 pt not aware Objective OBJECTIVE: 03/06/18 0300 03/06/18 0400 03/06/18 0425 03/06/18 0500 BP: 108/60 (!) 113/37 112/63 103/60 Pulse: 90 90 89 88 Resp: 21 25 20 21 Temp: TempSrc: SpO2: 98% 98% 98% 98% Weight: Height: Intake/Output Summary (Last 24 hours) at 03/06/18 0626 Last data filed at 03/05/18 1600 Gross per 24 hour Intake 74.6 ml Output 750 ml Net -675.4 ml Physical Exam Constitutional: He is oriented to person, place, and time. chornically ill appearing, thin Neck: Neck supple. No JVD present. Cardiovascular: Normal rate and regular rhythm. Murmur heard. Pulmonary/Chest: Decreased breath sounds bilaterally Abdominal: Soft. Bowel sounds are normal. There is no tenderness. Neurological: He is alert and oriented to person, place, and time. Skin: Skin is warm and dry. Labs: CBC: Recent Labs 03/06/18 0545 03/06/18 0210 03/05/18 2256 03/05/18 2013 03/05/18 1350 03/05/18 0910 03/05/18 0320 03/04/18 2145 WBC 8.09 7.95 -- 8.75 -- 9.63* 8.73 10.30* HB 7.5* 7.3* 7.4* 7.4* 7.7* 7.1* 7.2* 6.9* HCT 26.1* 24.9* 25.4* 25.1* 26.5* 24.1* 25.0* 23.8* PLT 296 304 -- 301 -- 307 350 351 MCV 81.1* 80.8* -- 80.4* -- 79.8* 81.7* 79.1* COAG: Recent Labs 03/05/18 0320 02/28/18 1016 INR 1.28 1.3* BMP: Recent Labs 03/06/18 02103/05/18 032 GLUC 85 83 NA 142 142 K 4.1 4.7 CHLOR 113* 114* CO2 22 20* ANION 11 13 BUN 21* 27* CREAT 0.86 0.90 CHEM: Recent Labs 03/06/1820903/05/18 032 ALB 2.6* 2.5* TPROT 4.8* 4.7* CA 7.8* 7.8* MG -- 2.0 HEPATIC: Recent Labs 03/06/1820903/05/18319 ALKPHOS 118* 107 ALT 12 12 AST 14 27 TBILI 0.4 0.7 Assessment/Plan Cardiovascular - Hypertension - normotensive overnight - continue to hold home meds Respiratory - COPD - Requires O2 at night at baseline - Continue spiriva and prn albuterol Neuro - AANDO x3 Gastrointestinal - Upper GI bleed - gastro on consult - likely 2/2 to recent esophageal dilation and anticoagulation therapy - plan for EGD today per gastro - a/w acute blood loss anemia, see below Current Diet Order DIET NPO Hematologic - Acute blood loss anemia - 2/2 upper GI bleed - 6.9 on presentation, s/p 2U pRBCs - Hgb stable in 7 range - transfuse if <7, continue to trend Hgb Component 03/04/2018 03/05/2018 03/05/2018 03/05/2018 03/05/2018 03/05/2018 03/06/2018 03/06/2018 3:20 AM 9:10 AM 1:50 PM 8:13 PM 10:56 PM 2:10 AM 5:45 AM HGB 6.9 (LL) 7.2 (L) 7.1 (L) 7.7 (L) 7.4 (L) 7.4 (L) 7.3 (L) 7.5 (L) Will discuss with Dr. Aomr SIGNATURE: Chapincito Howard DO PATIENT NAME: Sabina Flores DATE: 03/06/2018 TIME: 6:26 AM PAGER: [phone] Progress Notes ([facility]): Porsha Kowalski XENIA 03/04/2018 2:13 PM Signed calls in to report that patient has developed bright red blood in stool. Reports that he is feeling lightheaded and weak. Advised her to take him to ER for eval and treatment. Verbalizes understanding. She will be taking him to [facility]. Varun Wang MD 03/04/2018 3:04 PM Signed I agree. PROGRESS Observed: 02/28/2018 Status: COMPLETED Source: [place] 2:07 PM [facility] REPOSITORY HNO ID: [id number] Author: Yamile Shirley LPN Service: (none) Author Type: (none) Type: Progress Notes Filed: 02/28/2018 2:07 PM Note Text: Patient notified of results and provider's instructions. Patient verbalizes understanding. Yamile Shirley LPN PROGRESS Observed: 02/28/2018 Status: COMPLETED Source: [place] 12:35 PM [facility] REPOSITORY HNO ID: [id number] Author: Varun Wang Service: (none) Author Type: Physician Type: Progress Notes Filed: 02/28/2018 2:07 PM Note Text: Increase coumadin to 5 mg Sun, Sun, Wed, Fri, Sat and 2.5 mg Sun and Sun. Continue Lovenox. INR in 5 days. PROGRESS Observed: 02/28/2018 Status: COMPLETED Source: [place] 10:34 AM [facility] REPOSITORY HNO ID: [id number] Author: Fidelia Parsons RN Service: (none) Author Type: (none) Type: Progress Notes Filed: 02/28/2018 10:37 AM Note Text: patient had inr completed at [facility] patients inr is 1.3 (patients inr ranges is 2.0-3.0) patient is currently taking lovenox twice daily and 5mg Mon,Wed,Fri and 2.5mg all other days (patient has only been back on coumadin since Sunday02/26/18) patients last dose change was on 02/14/18 due to a low level of 1.3 (dose at that time was 2.5mg daily patient has had no changes in medication except for coumadin/lovenox and no change in diet FYI - patient was off coumadin for procedure from 02/21-02/25 and was placed on lovenox. patient just restarted coumadin on Sunday of this week and has only taken 2 dose along with lovenox twice daily. Patient did miss lovenox injection last night. Advised patient to continue on the same dose(s) and lovenox and that they would only be contacted regarding dosage and follow up instructions after review with provider, if a change is needed. Written instructions given and patient verbalized understanding. Presently scheduled on Sunday (03/04/18) for follow up INR. PLASTIC SURGERY Observed: 02/26/2018 Status: F Source: [place] VISIT REPORT 3:13 PM [facility] [facility] [place] [facility] [address] [place] [address] OFFICE VISIT Date of Service: 02/20/18 MR#: [id number] Acct: [id number] Name: SABINA FLORES Rep #: [id number] : 1940 Provider: Jayjay Mohamud MD Age/Sex: 78/M Location: [facility] Status: Signed Intake Vital Signs02/20/18 Blood Pressure 113/66 02/20/18 Blood Pressure Location Rt brachial 02/20/18 Blood Pressure Position Sitting 02/20/18 Respiratory Rate 16 Intake Visit Reasons: evaluation left index finger pain Marketing Officer Required: No Accompanied by: Is patient in pain?: No Allergies No Known Allergies Allergy (Verified 02/20/18 11:01) Medications Albuterol Inhaler [Ventolin Hfa] 2 puff INHALATION Q6H PRN PRN 01/02/14 [History Confirmed 12/10/17] Allopurinol [Zyloprim] 300 mg PO DAILY 09/23/17 [History Confirmed 12/10/17] Chlorhexidine Gluconate [Peridex] 15 ml MM DAILY 09/23/17 [History Confirmed 12/10/17] Cholecalciferol (Vitamin D3) [Vitamin D3] 1,000 unit PO DAILY 09/23/17 [History Confirmed 12/10/17] Fluticasone 110 Mcg [Flovent 110 Mcg] 1 puff INHALATION BID 09/23/17 [History Confirmed 12/10/17] Hydroxyurea [Hydrea] 1 cap PO DAILY 09/23/17 [History Confirmed 12/10/17] Mupirocin [Bactroban] 0.5 g NARES BID 09/23/17 [History Confirmed 12/10/17] Diltiazem CD [Cardizem CD] 120 mg PO BID #60 cap 09/27/17 [Rx Confirmed 12/10/17] Famotidine [Pepcid] 20 mg PO BID #60 tab 09/27/17 [Rx Confirmed 12/10/17] Ondansetron [Zofran Odt] 4 mg PO Q6H PRN PRN #14 tab.rapdis 09/27/17 [Rx Confirmed 12/10/17] Oxycodone HCl/Acetaminophen [Percocet 5/325] 1 tab PO Q4H PRN PRN 7 Days #30 tab 09/27/17 [Rx Confirmed 12/10/17] Anagrelide HCl [Agrylin] 0.5 mg PO BID 11/29/17 [History Confirmed 12/10/17] warfarin 2.5 mg tablet 2.5 mg PO QDAY 12/10/17 [History Confirmed 12/10/17] Cephalexin [Keflex] 500 mg PO Q6 #56 cap 01/02/18 [Rx] Doxycycline Monohydrate 100 mg PO BID #28 cap 01/02/18 [Rx] PFSH Medical History COPD (chronic obstructive pulmonary disease) (Chronic) Atypical chest pain (Chronic) History of peptic ulcer disease (Chronic) Adenomatous colon polyp (Acute) Gout (Acute) History of cataract (Acute) Hypoxemia (Acute) Malignant neoplasm of larynx (Acute) Pancreatitis (Acute) Polycythemia (Acute) Protein calorie malnutrition (Acute) Thrombocytosis (Acute) Chronic back pain (Chronic) Iron deficiency anemia (Chronic) Stage 2 moderate COPD by GOLD classification (Chronic) Tobacco use (Chronic) Elevated LFTs (Resolved) Pneumonia (Resolved) Tongue cancer (Inactive) Surgical History Esophageal dilatation (Resolved) Floor of mouth resection, sialadochoplasty (Resolved) H/O colonoscopy (Resolved) History of esophagogastroduodenoscopy (EGD) (Resolved) History of laryngoscopy (Resolved) S/P partial gastrectomy (Resolved) Family History Brother Brain cancer Bone cancer Brain tumor Father CAD (coronary artery disease) Heart disease Social History household members: spouse pets and animals: Yes Smoking Status: Former smoker quit date: 04/30/13 pack-years: 116 how long ago did patient quit smokin second hand exposure: Yes alcohol intake: current alcohol intake frequency: 0-2 drinks per day Alcohol type: beer substance use type: does not use caffeine: Yes what type of physical activity do you participate in: none additional social history: DOES USE ASPIRIN DOES USE IBUPROFEN HPI evaluation left index finger pain: Details: HISTORY OF PRESENT ILLNESS 78 year old man presented initially with left index finger pain and swelling and a small nodule at the PIP joint. He states the pain and swelling and redness were much worse a couple months ago. Patient is right hand dominant. He denies any fever. He denies any trauma to his left index finger. He states he has a history of gout mostly in his toes and ankles. He initially went to an Urgent Care Center who placed him on steroids. Without much improvement, he went to the ED on 01/02/18. Xray showed subtle cortical irregularity of distal lateral cortex of the proximal phalanx and osteomyelitis cannot be excluded. He was discharged home on Keflex and Doxycycline. He followed up with Dr. Cobb. He ordered a Uric Acid level which was 4.3. He is currently on Allopurinol. He stuck a needle in the mass and obtained no fluid. I saw the patient on 01/23/18 and some improvement was seen since he started the antibiotics as the redness and swelling and pain lessened. Because of the findings noted on the xray, an MRI was done on 02/04/18. It showed erosion of the proximal phalanx and synovitis of the second proximal interphalangeal joint. Differential considerations included osteomyelitis/septic joint and gout. He has no problems with daily activities. He presents today for further evaluation and treatment. REVIEW OF SYSTEMS General - Denies fever and weight loss. Has fatigue. Eyes - Has cataracts and glaucoma. ENT - Denies nasal congestion and sore throat. Endocrine - Denies excessive thirst and urination. Skin - Denies skin cancer. Has small mass dorsal radial aspect PIP joint left index finger with associated swelling which has resolved. Musculoskeletal - Has joint pain, joint stiffness, and back pain. Denies weakness of muscles and joints, and arthritis. Has gout. Neuro - Denies headaches. Cardiovascular - Denies chest pain, fatigue, and shortness of breath with exertion. Psych - Denies anxiety and depression. Respiratory - Denies chronic cough. Has shortness of breath. Gastrointestinal - Denies nausea, vomiting, diarrhea, and constipation. Hematologic - Has abnormal bruising as he is on Coumadin for SMV thrombosis. Denies bleeding. Genitourinary - Denies hematuria and urinary frequency. PHYSICAL EXAMINATION General - Alert and Oriented HEENT - PERRL. EOMI. Throat is clear. Neck - Supple and nontender. No cervical adenopathy. Lungs - Clear to auscultation. Increased expiratory phase. No wheezing. Heart - Regular rate and rhythm. Abdomen - Soft and nondistended. Extremities - FROM. Swelling resolved. No redness seen. Finger is nontender. He can flex his finger. His finger is a little stiff but it shows good range of motion. Small mass on dorsal radial aspect at PIP joint. Measures 5 mm. Mobile. Clinically consistent with a gouty mass. No axillary adenopathy. Radial pulses are palpable. Fingers are warm with good capillary refill. No wrist pain. Neuro - CN II-XII grossly intact. Psych - Normal mood and affect. ASSESSMENT 1. 5 mm gouty mass dorsal radial aspect at PIP joint left index finger. 2. Recent infection left index finger, resolved. 3. Gout. 4. senior care use of anticoagulants. 5. Osteomyelitis left index finger, clinically resolved. PLAN MRI results reviewed with patient. MRI showed erosion of the proximal phalanx and synovitis of the second proximal interphalangeal joint. Differential considerations include osteomyelitis/septic joint and gout. There is no clinical evidence of infection at this time. Clinically it looks more like gout. He has good range of motion, although his left index finger is a little stiff. No issues doing activities of daily living. If the mass enlarges or causes functional issues, then can proceed with excision of this mass with a local skin flap reconstruction. Would send the mass to Pathology for analysis to rule out carcinoma. At this time, the patient does not want to have this gouty mass excised as he has no trouble with daily activities at this time. If infection develops in the future, then would need further evaluation for surgical excision. I would leave the wound open and begin daily Silver dressing changes. At that time, a partial ostectomy for osteomyelitis would be done. May need IV antibiotics at that point. Hopefully can get by with oral antibiotics. Followup on an as needed basis if symptoms worsen or mass enlarges with functional issues. Assessment AND Plan Problems 1. Gout M10.9 2. Neoplasm of unspecified behavior of bone, soft tissue, and skin D49.2 3. senior care current use of anticoagulant Z79.01 4. Osteomyelitis of finger of left hand M86.9 Coding Level of Care Code Off vis,est,level 4 Diagnoses Gout M10.9 Neoplasm of unspecified behavior of bone, soft tissue, and skin D49.2 senior care current use of anticoagulant Z79.01 Osteomyelitis of finger of left hand M86.9 02/24/18 1613 <Electronically signed by Jayjay Mohamud MD> Date Jayjay Mohamud MD 02/26/18 1513<Electronically signed by Natalie ZULUAGA> Cosigner Signature: Date (if applicable) Natalie Morse CC: Juan Cobb MD; Varun Wang MD ANES POST Observed: 02/26/2018 Status: COMPLETED Source: [place] 9:50 AM [facility] REPOSITORY [facility] ID: [id number] Author: Jose C Villa Service: Anesthesiology Author Type: Anesthesiologist Type: Anesthesia PostOp Filed: 02/26/2018 2:09 PM Note Text: POST ANESTHESIA EVALUATION NOTE SERVICE DATE: 02/26/2018 SERVICE TIME: 9:50 AM : 1940 Vitals: Validated Vital Signs: HR: 84; BP: 135/80; RR: 14; SpO2%: 98; Temperature: 36.4 POST ANES STATUS: No apparent anesthetic complications. The patient is appropriately hydrated with stable respiratory and cardiovascular status. Patient has safe and adequate airway control. The patient has appropriate pain relief and no significant post operative nausea or vomiting. The patient has achieved baseline mental status. Intra-Operative Events: No Significant Anesthesia Events Further assessment by Anesthesia Service: None Other Remarks: SIGNATURE: Jose C Villa MD PATIENT NAME: Sabina Flores DATE: February 26, 2018 TIME: 2:08 PM PAGER/CONTACT #: [phone] PROGRESS Observed: 02/26/2018 Status: COMPLETED Source: [place] 7:55 AM [facility] REPOSITORY [facility] ID: [id number] Author: Neva Singer Service: (none) Author Type: Physician Type: Progress Notes Filed: 02/27/2018 3:18 PM Note Text: 1. Can you swallow saliva? Yes 2. If able to eat by mouth, what type of food are you eating? solid, how difficult: hard 3. Are you dependent on CORPAK/PEG/J-tube for nutrition? No Any reduction if the amount? No 4. Have symptoms improved since last dilation? Yes HOSP Observed: 02/25/2018 Status: COMPLETED Source: [place] 12:00 AM [facility] REPOSITORY Patient:Sabina Flores MRN: <[id number]> Height:5' 11(1.803 m) Weight:No patient weight recorded within the last 30 days. Outpatient Medications as of 02/26/18: diltiazem CD (CARDIZEM CD) 120 mg 24 hr capsule warfarin (COUMADIN) 5 mg tablet allopurinol (ZYLOPRIM) 300 mg tablet hydroxyurea (HYDREA) 100 mg/mL oral liquid albuterol HFA (VENTOLIN HFA) 90 mcg/actuation inhaler ondansetron (ZOFRAN) 4 mg tablet mupirocin (BACTROBAN) 2 % ointment famotidine (PEPCID) 20 mg tablet Cholecalciferol, Vitamin D3, (VITAMIN D-3) 1,000 unit chew Vit A-Vit O-Scnp-Vuvbjqmk (ZINC, WITH A AND C, LOZENGES) lozg Chlorhexidine Gluconate (PERIDEX) 0.12 % solution tiotropium-olodaterol (STIOLTO RESPIMAT) 2.5-2.5 mcg/actuation mist fluticasone (FLOVENT) 110 mcg/actuation inhaler Admission/Clinic Administered Medications as of 02/26/18: Patient has no admission medications. Problem List: Iron deficiency anemia [D50.9] Esophageal stricture [K22.2] Interstitial lung disease (HCC) [J84.9] Asthma [J45.909] COPD (chronic obstructive pulmonary disease) (HCC) [J44.9] Adenomatous colon polyp [D12.6] Carcinoma in situ of larynx [D02.0] Back pain, chronic [M54.9, G89.29] History of laryngeal cancer [Z85.21] Hypoxemia [R09.02] Severe protein-calorie malnutrition (HCC) [E43] Thrombocytosis (HCC) [D47.3] Elevated bilirubin [R17] Body mass index (BMI) less than or equal to 19 in adult [Z68.1] Malignant neoplasm of larynx (HCC) [C32.9] Dysphagia [R13.10] History of peptic ulcer [Z87.11] 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] Former tobacco use [Z87.891] S/P partial gastrectomy [Z90.3] Leukocytosis [D72.829] Vitamin D deficiency [E55.9] Hypoalbuminemia [E88.09] Subclinical hypothyroidism [E03.9] Low serum alkaline phosphatase [R74.8] 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 Lab Values No results within the last 30 days for the following basenames: K,HCT Progress Notes ([facility]): Maura Aguillon DO 02/15/2018 8:25 AM Signed Can let him know blood counts are stable. Continue Hydrea at 500 mg daily and follow up as scheduled. DO Michelle Kathleen 02/15/2018 8:32 AM Signed Message left for patient to contact office for message below. Diana Torres 02/15/2018 3:14 PM Signed Relayed message to patient. Progress Notes ([facility]): Avtar Zarate 02/14/2018 12:36 PM Signed Patient calls for instructions on taking coumadin prior to EGD dilation 02/26/18. Varun Wang MD 02/14/2018 2:03 PM Signed 1) Last dose of coumadin February 21. No coumadin till February 26 PM. 2) Lovenox 0.6ml SC every 12 hours starting . Does he still have Lovenox from before? 3) Last dose of Lovenox Jan. 29 AM. 4) After procedure Jan. 30, restart BOTH Lovenox and coumadin that evening. Stay on BOTH Lovenox and warfarin until directed otherwise. 5) INR Nov. 1. Kaley Mayela MICHAELS 02/14/2018 2:42 PM Signed Phoned patient and left message to return call and ask to speak to a nurse. Nila Natanael Delgado [employer] 02/14/2018 2:52 PM Signed Pt returns call. Reviewed instructions below with pt. Pt writes down instructions and repeats back correctly. Pt verbalizes understanding of all instructions. Pt states he still has Lovenox left. Pt has appt already scheduled 02/28/18 for INR check. PROGRESS Observed: 02/14/2018 Status: COMPLETED Source: [place] 2:21 PM [facility] REPOSITORY [facility] ID: [id number] Author: Kaley Pedro LPN Service: (none) Author Type: (none) Type: Progress Notes Filed: 02/14/2018 2:43 PM Note Text: Phoned patient and went over coumadin instructions from Dr Wang 5 mg -- and 2.5 mg other 4 days and recheck INR in 2 weeks with understanding. Patient said he is having procedure at [facility] [place] [facility] 02/26/2018 for EGD dilation and asking about his coumadin dose, if Lovenox is needed? Please advise Saw instructions on other phone encounter. PROGRESS Observed: 02/14/2018 Status: COMPLETED Source: [place] 1:44 PM [facility] REPOSITORY [facility] ID: [id number] Author: Varun Wang Service: (none) Author Type: Physician Type: Progress Notes Filed: 02/14/2018 2:43 PM Note Text: Increase Coumadin dose. 5 mg Mon, Wed, Fri and 2.5 mg on all other 4 days of the week. INR in 2 weeks. PROGRESS Observed: 02/14/2018 Status: COMPLETED Source: [place] 11:28 AM [facility] REPOSITORY [facility] ID: [id number] Author: Fidelia Parsons RN Service: (none) Author Type: (none) Type: Progress Notes Filed: 02/14/2018 11:30 AM Note Text: patient had inr completed at [facility] patients inr is 1.3 (patients inr range is 2.0-3.0) patient is currently taking 2.5mg daily patients last dose change was on 01/07/18 due to stopping lovenox and antibiotic (dose at that time was 5mg daily ) patient has had no changes in medication and missed 1 dose 5 day ago and no change in diet Advised patient that they would be contacted regarding medication dose and when to follow up after information is reviewed by provider. After provider review please contact the patient with information and schedule follow up appointment with coumadin clinic. FYI - patient has been scheduled for a 2 week follow up inr on 02/28/18 [place] CBC AND DIFF Collected: 02/14/2018 Status: F Source: [place] 8:33 AM [facility] REPOSITORY TYPE CODE TESTS RESULT OUT OF REFERENCE UNITS RANGE LAB WWBC 3.70-11.00 k/uL [place] WBC 9.27 Result Comment: Result rechecked. No clot detected. LAB WRBC 4.20-6.00 m/uL [place] 5.47 RBC LAB WHGB 13.0-17.0 g/dL [place] 11.9 Low Hemoglobin LAB WHCT 39.0-51.0 % [place] 40.9 Hematocrit LAB WMCV 80.0-100.0 fL [place] 74.8 Low MCV LAB WMCH 26.0-34.0 pg [place] 21.8 Low MCH LAB WMCHC 30.5-36.0 g/dL [place] 29.1 Low MCHC LAB WRDW 11.5-15.0 % [place] 26.9 High RDW LAB WPLT 150-400 k/uL [place] Platelet Cnt Platelets Clumped, Estimate Normal Result Comment: No clot detected. Platelet count confirmed by manual review of peripheral blood smear. LAB WMPV 9.0-12.7 fL Unable to [place] MPV report LAB CBCCOM Preliminary Comment result. Interpret with caution. Final results may vary. Results requested and read back by: Result Comment: WBC=9.92,BEK=181 LAB WNEU % 78 [place] Neut% LAB WLYM % 8 [place] Lymp% LAB WMON % 5 [place]% LAB WEO % 3 [place] Eos% LAB WBAS % 6 [place] Baso% LAB WANEU 1.45-7.5 k/uL 0 7.23 [place] Abs Neut LAB WALYM 1.00-4.0 k/uL Low 0 0.74 [place] Abs Lymp LAB WAMON <0.87 k/uL 0.46 [place] Abs [place] LAB WAEO <0.46 k/uL 0.28 [place] Abs Eos LAB WABAS <0.11 k/uL High 0.56 [place] Abs Baso LAB WRBCM Moderate [place] RBC Morph Result Comment: Ovalocytes Anisocytosis Slight Polychromasia 1+ Schistocytes LAB WDFCOM [place] Hypersegmented PMNs Diff Comment LAB WPLTE [place] Platelet estimate Platelet Est adequate Performed By: #### WCBCDF #### [facility] [address], [place] [address] CREATININE FINGERSTICK Collected: 02/04/2018 Status: F Source: [place] 12:17 PM [facility] [place] TYPE CODE TESTS RESULT OUT OF RANGE REFERENCE UNITS LAB L9100.0210 0.70-1.30 mg/dL Normal CREATININE WB 1.0 LAB L9100.0220 >60 mL/min EGFR WB Normal > 60.0000 Performed By: #### L9100.0200 #### [facility] Point of Care [address] [facility] [place] [address] UPPER EXT NO JOINT Observed: 02/04/2018 Status: F Source: [place] W/WO CONT 11:59 AM [facility] Imaging Services [address] [place] [id number] Upper Ext No Joint W/WO Cont MR#: [id number] Acct: [id number] Name: SABINA FLORES Rep #: [id number] : 1940 78 From: Trino Tabor MD PCP: Varun Wang MD Status: REG CLI Study: Upper Ext No Joint W/WO Cont Date of Exam: 02/04/18 Exam# [id number] Ordering Dr: Jayjay Mohamud MD STUDY: MRI LEFT HAND (ATTENTION INDEX FINGER) WITH AND WITHOUT CONTRAST REASON FOR EXAM: Left index finger, pain and swelling for 6 weeks with no specific injury. Evaluate for gout, osteomyelitis. TECHNIQUE: Standardized fat and water weighted pulse sequences were obtained in all 3 orthogonal planes before and after intravenous administration of 6 mL of Gadavist. COMPARISON: Radiographs 01/02/2018. FINDINGS: There is synovitis of the second proximal interphalangeal joint (T2 sagittal images 5-7). There is bone edema of the distal aspect of the second proximal phalanx and proximal aspect of the second middle phalanx (inversion recovery coronal images 10, 11) with corresponding decreased T1 bone marrow signal (T1 coronal images 10, 11) and contrast enhancement (postcontrast T1 coronal images 10-12). There is erosion of the ulnar distal aspect of the second proximal phalanx (T1 coronal image 11; T1 axial image 19). There is subchondral cystic change of the second metacarpal head (inversion recovery coronal images 13-16). Otherwise, unremarkable second metacarpophalangeal joint. Normal second distal interphalangeal joint. Normal flexor and extensor tendons of the second digit. There is edema in the subcutis adipose space of the second digit at the level proximal interphalangeal joint. There is no discrete soft tissue mass or abscess. MRI/Upper Ext No Joint W/WO Cont IMPRESSION: Signal alteration of the proximal and middle phalanges of the second digit with erosion of the proximal phalanx and synovitis of the second proximal interphalangeal joint. Differential considerations include osteomyelitis/septic joint and gout. 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 Scrubber: Signed MR OUTSIDE CD DICOM Observed: 02/04/2018 Status: F Source: [facility] 12:00 AM [facility] REPOSITORY Images were obtained outside of [facility] [id number] PLASTIC SURGERY Observed: 01/25/2018 Status: F Source: [place] VISIT REPORT 4:01 PM [facility] [address] [address] OFFICE VISIT Date of Service: 01/23/18 MR#: [id number] Acct: [id number] Name: SABINA FLORES Rep #: [id number] : 1940 Provider: Jayjay Mohamud MD Age/Sex: 78/M Location[place] [facility] Status: Signed Intake Vital Signs01/23/18 Height 5 ft 11 in 01/23/18 Weight: 121 lb 6 oz Intake Visit Reasons: evaluation left index finger pain Marketing Officer Required: No Accompanied by: Is patient in pain?: Yes (LEFT INDEX FINGER BURNING PAIN ) Pain scale (1-10): 4 Allergies No Known Allergies Allergy (Verified 01/23/18 13:44) Medications Albuterol Inhaler [Ventolin Hfa] 2 puff INHALATION Q6H PRN PRN 01/02/14 [History Confirmed 12/10/17] Allopurinol [Zyloprim] 300 mg PO DAILY 09/23/17 [History Confirmed 12/10/17] Chlorhexidine Gluconate [Peridex] 15 ml MM DAILY 09/23/17 [History Confirmed 12/10/17] Cholecalciferol (Vitamin D3) [Vitamin D3] 1,000 unit PO DAILY 09/23/17 [History Confirmed 12/10/17] Fluticasone 110 Mcg [Flovent 110 Mcg] 1 puff INHALATION BID 09/23/17 [History Confirmed 12/10/17] Hydroxyurea [Hydrea] 1 cap PO DAILY 09/23/17 [History Confirmed 12/10/17] Mupirocin [Bactroban] 0.5 g NARES BID 09/23/17 [History Confirmed 12/10/17] Diltiazem CD [Cardizem CD] 120 mg PO BID #60 cap 09/27/17 [Rx Confirmed 12/10/17] Famotidine [Pepcid] 20 mg PO BID #60 tab 09/27/17 [Rx Confirmed 12/10/17] Ondansetron [Zofran Odt] 4 mg PO Q6H PRN PRN #14 tab.rapdis 09/27/17 [Rx Confirmed 12/10/17] Oxycodone HCl/Acetaminophen [Percocet 5/325] 1 tab PO Q4H PRN PRN 7 Days #30 tab 09/27/17 [Rx Confirmed 12/10/17] Anagrelide HCl [Agrylin] 0.5 mg PO BID 11/29/17 [History Confirmed 12/10/17] warfarin 2.5 mg tablet 2.5 mg PO QDAY 12/10/17 [History Confirmed 12/10/17] Cephalexin [Keflex] 500 mg PO Q6 #56 cap 01/02/18 [Rx] Doxycycline Monohydrate 100 mg PO BID #28 cap 01/02/18 [Rx] PFSH Medical History COPD (chronic obstructive pulmonary disease) (Chronic) Atypical chest pain (Chronic) History of peptic ulcer disease (Chronic) Adenomatous colon polyp (Acute) Gout (Acute) History of cataract (Acute) Hypoxemia (Acute) Malignant neoplasm of larynx (Acute) Pancreatitis (Acute) Polycythemia (Acute) Protein calorie malnutrition (Acute) Thrombocytosis (Acute) Chronic back pain (Chronic) Iron deficiency anemia (Chronic) Stage 2 moderate COPD by GOLD classification (Chronic) Tobacco use (Chronic) Elevated LFTs (Resolved) Pneumonia (Resolved) Tongue cancer (Inactive) Surgical History Esophageal dilatation (Resolved) Floor of mouth resection, sialadochoplasty (Resolved) H/O colonoscopy (Resolved) History of esophagogastroduodenoscopy (EGD) (Resolved) History of laryngoscopy (Resolved) S/P partial gastrectomy (Resolved) Family History Brother Brain cancer Bone cancer Brain tumor Father CAD (coronary artery disease) Heart disease Social History household members: spouse pets and animals: Yes Smoking Status: Former smoker quit date: 04/30/13 pack-years: 116 how long ago did patient quit smokin second hand exposure: Yes alcohol intake: current alcohol intake frequency: 0-2 drinks per day Alcohol type: beer substance use type: does not use caffeine: Yes what type of physical activity do you participate in: none additional social history: DOES USE ASPIRIN DOES USE IBUPROFEN HPI evaluation left index finger pain: Details: HISTORY OF PRESENT ILLNESS 78 year old man presents with left index finger pain and swelling and a small nodule at the PIP joint. He states the pain and swelling and redness was much worse about a month ago. Patient is right hand dominant. He denies any fever. He denies any trauma to his left index finger. He states he has a history of gout mostly in his toes and ankles. He initially went to an Urgent Care Center who placed him on steroids. Without much improvement, he went to the ED on 01/02/18. Xray showed subtle cortical irregularity of distal lateral cortex of the proximal phalanx and osteomyelitis cannot be excluded. He was discharged home on Keflex and Doxycycline. He followed up with Dr. Cobb. He ordered a Uric Acid level which was 4.3. He is currently on Allopurinol. He stuck a needle in the mass and obtained no fluid. Patient comes here for further evaluation and treatment. He states since he started the antibiotics, the redness and swelling and pain showed much improvement. REVIEW OF SYSTEMS General - Denies fever and weight loss. Has fatigue. Eyes - Has cataracts and glaucoma. ENT - Denies nasal congestion and sore throat. Endocrine - Denies excessive thirst and urination. Skin - Denies skin cancer. Has small mass dorsal radial aspect PIP joint left index finger with associated swelling that is resolving. Musculoskeletal - Has joint pain, joint stiffness, and back pain. Denies weakness of muscles and joints, and arthritis. Neuro - Denies headaches. Cardiovascular - Denies chest pain, fatigue, and shortness of breath with exertion. Psych - Denies anxiety and depression. Respiratory - Denies chronic cough. Has shortness of breath. Gastrointestinal - Denies nausea, vomiting, diarrhea, and constipation. Hematologic - Has abnormal bruising as he is on Coumadin for SMV thrombosis. Denies bleeding. Genitourinary - Denies hematuria and urinary frequency. PHYSICAL EXAMINATION General - Alert and Oriented HEENT - PERRL. EOMI. Throat is clear. Neck - Supple and nontender. No cervical adenopathy. Lungs - Clear to auscultation. Increased expiratory phase. No wheezing. Heart - Regular rate and rhythm. Abdomen - Soft and nondistended. Extremities - FROM except for left index finger. Mild swelling present. Minimal redness seen. Finger is nontender. He can flex his finger but there are some limitations secondary to swelling. Small mass on dorsal radial aspect at PIP joint. Measures 5 mm. Clinically consistent with a gouty mass. No axillary adenopathy. Radial pulses are palpable. Fingers are warm with good capillary refill. No wrist pain. Neuro - CN II-XII grossly intact. Psych - Normal mood and affect. ASSESSMENT 1. 5 mm gouty mass dorsal radial aspect at PIP joint left index finger. 2. Recent infection left index finger. 3. Gout. 4. senior care use of anticoagulants. 5. Possible osteomyelitis left index finger. PLAN Xray reviewed. He is finished with his antibiotics. If redness returns, will place him back on antibiotics. The cortical irregularity on xray could be consistent with possible osteomyelitis but also is consistent with crystalline arthopathy. Will order an MRI to evaluate this bony abnormality. If the mass is persistent, may need excision of this mass with a local skin flap reconstruction. Would send the mass to Pathology for analysis to rule out carcinoma. If infection returns and surgery is done, would leave the wound open and begin daily Silver dressing changes. At that time, a partial ostectomy for osteomyelitis would be done. May need IV antibiotics at that point. Hopefully can get by with oral antibiotics. Patient was informed of the risks and complications of the procedure including alternatives to surgery. These were discussed with the patient personally. Patient voices understanding and wishes to proceed with the current plan of observation and obtaining an MRI. Followup one month. If symptoms worsen, he will return sooner for evaluation. Assessment AND Plan Problems 1. Gout M10.9 2. Neoplasm of unspecified behavior of bone, soft tissue, and skin D49.2 3. senior care current use of anticoagulant Z79.01 4. Osteomyelitis of finger of left hand M86.9 Orders Orders: Coding Level of Care Code Off vis,new,level 4 Diagnoses Gout M10.9 Neoplasm of unspecified behavior of bone, soft tissue, and skin D49.2 senior care current use of anticoagulant Z79.01 Osteomyelitis of finger of left hand M86.9 01/25/18 1601 <Electronically signed by Jayjay Mohamud MD> Date Jayjay Mohamud MD Cosign Signature: Date (if applicable) CC: Juan Cobb MD; Varun Wang MD PROGRESS Observed: 01/25/2018 Status: COMPLETED Source: [place] 12:15 PM [facility] ID: [id number] Author: Marta Villasenor Service: (none) Author Type: Nurse Practitioner Type: Progress Notes Filed: 01/25/2018 12:15 PM Note Text: Elvis Villasenor APRN.CNP PROGRESS Observed: 01/25/2018 Status: COMPLETED Source: [place] 11:55 AM [facility] REPOSITORY [facility] ID: [id number] Author: Fidelia Parsons RN Service: (none) Author Type: (none) Type: Progress Notes Filed: 01/25/2018 11:59 AM Note Text: patient had inr completed at [facility] patients inr is 2.2 (patients inr range is 2.0-3.0) patient is currently taking 2.5mg daily patients last dose change was on 01/07/18 due to stopping lovenox and antibiotic (dose at that time was 5mg daily ) patient has had no changes in medication and no uninstructed missed doses and no change in diet Advised patient to continue on the same dose(s) and that they would only be contacted regarding dosage and follow up instructions after review with provider, if a change is needed. Written instructions given and patient verbalized understanding. Presently scheduled in 2 weeks (02/14/18 -coming from spec appt) for follow up INR. PROGRESS Observed: 01/24/2018 Status: COMPLETED Source: [place] 2:12 PM [facility] REPOSITORY [facility] ID: [id number] Author: Varun Wang Service: (none) Author Type: Physician Type: Progress Notes Filed: 01/25/2018 7:26 AM Note Text: This note was created using [email or web address]. Subjective Sabina Flores is a 78 year old male. Patient reports low back pain chronic for 6 years. The pain is located in lower back bilaterally without radiation and described as dull and aching 0-7/10. Pain is worse with bending or twisting, and better with heating pad, walking, lying down and Percocet. Patient also denies fever, weakness, numbness, or tingling. He's also had acute gout of the right big toe for one day, and left index finger for a few weeks. Percocet was helping also. He was on warfarin now for SMV thrombosis. 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 Back Pain, Chronic History of Laryngeal Cancer Hypoxemia Severe Protein-Calorie Malnutrition (Hcc) Thrombocytosis (Hcc) Elevated Protime Elevated Bilirubin Body Mass Index (Bmi) Less Than Or Equal to 19 in Adult Malignant Neoplasm of Larynx (Hcc) Dysphagia History of Peptic Ulcer Nicotine Dependence Squamous Cell Carcinoma of Larynx (Hcc) Former Tobacco Use S/P Partial Gastrectomy Leukocytosis Vitamin D Deficiency Hypoalbuminemia Subclinical Hypothyroidism Low Serum Alkaline Phosphatase Elevated Blood Pressure 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 warfarin (COUMADIN) 5 mg tablet Take 1 tablet by mouth once daily. As directed (Patient taking differently: Take 2.5 mg by mouth once daily. As directed ) allopurinol (ZYLOPRIM) 300 mg tablet Take 1 tablet by mouth once daily. This can be crushed. hydroxyurea (HYDREA) 100 mg/mL oral liquid Take 5 mL by mouth once daily. albuterol HFA (VENTOLIN HFA) 90 mcg/actuation inhaler Inhale 2 Puffs as instructed every 6 hours as needed for Wheezing/Shortness of Breath. ondansetron (ZOFRAN) 4 mg tablet Take 1 tablet by mouth every 6 hours as needed. mupirocin (BACTROBAN) 2 % ointment Apply 1 application to affected area twice daily. famotidine (PEPCID) 20 mg tablet Take 20 mg by mouth twice daily. oxyCODONE-acetaminophen (PERCOCET) 5-325 mg tablet Take 1 tablet by mouth every 4 hours as needed. Cholecalciferol, Vitamin D3, (VITAMIN D-3) 1,000 unit chew Take 1 tablet by mouth once daily. Vit A-Vit N-Ibew-Cogjsroi (ZINC, WITH A AND C, LOZENGES) lozg Take 1 tablet by mouth once daily. Let dissolve in mouth. Chlorhexidine Gluconate (PERIDEX) 0.12 % solution Take 15 mL by mouth once daily. Swish for 30 seconds and then spit out. tiotropium-olodaterol (STIOLTO RESPIMAT) 2.5-2.5 mcg/actuation mist Inhale 2 Puffs as instructed once daily. fluticasone (FLOVENT) 110 mcg/actuation inhaler Inhale 1 Puff as instructed twice daily. No current facility-administered medications for this visit. Review of Systems Per HPI. Objective BP 110/54 (BP Site: Left Arm, BP Position: Sitting, BP Cuff Size: Regular Adult) Pulse 88 Temp (!) 35.8 ?C (96.4 ?F) (Left Tympanic) Resp 24 Wt 54.4 kg (120 lb) BMI 16.74 kg/m? Physical Exam Constitutional: He appears cachectic. No distress. Cardiovascular: Normal heart sounds. Pulmonary/Chest: No respiratory distress. He has decreased breath sounds. He has no wheezes. He has no rales. Abdominal: Soft. There is no tenderness. Musculoskeletal: He exhibits no edema. Left hand: He exhibits tenderness and swelling. Right foot: There is tenderness and swelling. Assessment and Plan 1. Chronic bilateral back pain, unspecified back location - ICD9: 724.5, 338.29, ICD10: M54.9, G89.29 (primary diagnosis) Chronic low back pain - He uses this sparingly, 1/2 tablet daily as needed. - OXYCODONE 5 MG TABLET 2. Need for vaccination - ICD9: V05.9, ICD10: Z23 - ADMIN OF INFLUENZA VACCINE - INFLUENZA SEASONAL HIGH DOSE AGE 65+ 3. 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 5. Essential hypertension - ICD9: 401.9, ICD10: I10 - good control 6. Vitamin D deficiency - ICD9: 268.9, ICD10: E55.9 Supplemented. Varun Wang MD CNOV Observed: 01/24/2018 Status: COMPLETED Source: [place] 2:00 PM [facility] REPOSITORY Office Visit (INTMWS) SABINA FLORES ([id number]) 1940 M Date Time Provider Department 01/24/18 2:00 PM VARUN WANG During your visit today, we recorded the following information about you: Temperature Pulse Respiration Blood pressure 96.4 degrees 88/minute 24/minute 110/54 Weight 54.4 kg Annie Munoz [employer] 01/24/2018 2:08 PM Signed Influenza Vaccine Documentation: ? Patient is identified by name and date of : Yes ? Patient is older than 6 months of age: Yes ? Patient denies a severe allergy to any vaccine component or to a previous dose of influenza vaccine: Yes FOR EGG ALLERGY CONCERNS, REFER TO PROVIDER. ? Denies allergy to gelatin, formaldehyde, thimerosol :Yes ? Patient is afebrile and not moderately or severely ill: Yes ? Does the patient have a history of Guillain ?Paoli Syndrome (a severe paralytic illness): No ? Denies bone marrow transplant prior 6 months or solid organ transplant prior 3 months: Yes ? Denies a history of fainting after a prior injection or medical procedure? Yes If patient has fainted in the past, the CDC recommends sitting or lying down for 15 minutes after the vaccination. ? VIS sheet provided: Yes ? See Immunization Form in EpicCare for details of immunizations administered today. If patient reports dizziness, vision changes or ringing in the ears post vaccination ? please have patient sit or lie down for 15 minutes. Varun Wang MD 01/25/2018 7:26 AM Signed This note was created using [email or web address]. Subjective Sabina Flores is a 78 year old male. Patient reports low back pain chronic for 6 years. The pain is located in lower back bilaterally without radiation and described as dull and aching 0-7/10. Pain is worse with bending or twisting, and better with heating pad, walking, lying down and Percocet. Patient also denies fever, weakness, numbness, or tingling. He's also had acute gout of the right big toe for one day, and left index finger for a few weeks. Percocet was helping also. He was on warfarin now for SMV thrombosis. 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 Back Pain, Chronic History of Laryngeal Cancer Hypoxemia Severe Protein-Calorie Malnutrition (Hcc) Thrombocytosis (Hcc) Elevated Protime Elevated Bilirubin Body Mass Index (Bmi) Less Than Or Equal to 19 in Adult Malignant Neoplasm of Larynx (Hcc) Dysphagia History of Peptic Ulcer Nicotine Dependence Squamous Cell Carcinoma of Larynx (Hcc) Former Tobacco Use S/P Partial Gastrectomy Leukocytosis Vitamin D Deficiency Hypoalbuminemia Subclinical Hypothyroidism Low Serum Alkaline Phosphatase Elevated Blood Pressure 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 warfarin (COUMADIN) 5 mg tablet Take 1 tablet by mouth once daily. As directed (Patient taking differently: Take 2.5 mg by mouth once daily. As directed ) allopurinol (ZYLOPRIM) 300 mg tablet Take 1 tablet by mouth once daily. This can be crushed. hydroxyurea (HYDREA) 100 mg/mL oral liquid Take 5 mL by mouth once daily. albuterol HFA (VENTOLIN HFA) 90 mcg/actuation inhaler Inhale 2 Puffs as instructed every 6 hours as needed for Wheezing/Shortness of Breath. ondansetron (ZOFRAN) 4 mg tablet Take 1 tablet by mouth every 6 hours as needed. mupirocin (BACTROBAN) 2 % ointment Apply 1 application to affected area twice daily. famotidine (PEPCID) 20 mg tablet Take 20 mg by mouth twice daily. oxyCODONE-acetaminophen (PERCOCET) 5-325 mg tablet Take 1 tablet by mouth every 4 hours as needed. Cholecalciferol, Vitamin D3, (VITAMIN D-3) 1,000 unit chew Take 1 tablet by mouth once daily. Vit A-Vit X-Tgus-Wgjojjfu (ZINC, WITH A AND C, LOZENGES) lozg Take 1 tablet by mouth once daily. Let dissolve in mouth. Chlorhexidine Gluconate (PERIDEX) 0.12 % solution Take 15 mL by mouth once daily. Swish for 30 seconds and then spit out. tiotropium-olodaterol (STIOLTO RESPIMAT) 2.5-2.5 mcg/actuation mist Inhale 2 Puffs as instructed once daily. fluticasone (FLOVENT) 110 mcg/actuation inhaler Inhale 1 Puff as instructed twice daily. No current facility-administered medications for this visit. Review of Systems Per HPI. Objective BP 110/54 (BP Site: Left Arm, BP Position: Sitting, BP Cuff Size: Regular Adult) Pulse 88 Temp (!) 35.8 ?C (96.4 ?F) (Left Tympanic) Resp 24 Wt 54.4 kg (120 lb) BMI 16.74 kg/m? Physical Exam Constitutional: He appears cachectic. No distress. Cardiovascular: Normal heart sounds. Pulmonary/Chest: No respiratory distress. He has decreased breath sounds. He has no wheezes. He has no rales. Abdominal: Soft. There is no tenderness. Musculoskeletal: He exhibits no edema. Left hand: He exhibits tenderness and swelling. Right foot: There is tenderness and swelling. Assessment and Plan 1. Chronic bilateral back pain, unspecified back location - ICD9: 724.5, 338.29, ICD10: M54.9, G89.29 (primary diagnosis) Chronic low back pain - He uses this sparingly, 1/2 tablet daily as needed. - OXYCODONE 5 MG TABLET 2. Need for vaccination - ICD9: V05.9, ICD10: Z23 - ADMIN OF INFLUENZA VACCINE - INFLUENZA SEASONAL HIGH DOSE AGE 65+ 3. 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 5. Essential hypertension - ICD9: 401.9, ICD10: I10 - good control 6. Vitamin D deficiency - ICD9: 268.9, ICD10: E55.9 Supplemented. Varun Wang MD Referring Provider: VARUN WANG [[id number]] Allergies As of Date: 01/24/2018 Noted Allergy Reaction DOXYCYCLINE 01/07/2018 14 - Other: See Comments Comments: pancreatitis Date Reviewed: 01/24/2018 Reviewed by: Annie Munoz LPN - Fully Assessed Reason for Visit: Medication Follow-up [270] Primary Visit Diagnosis:Chronic bilateral back pain, unspecified back location [M54.9, G89.29] Other Visit Diagnoses:Need for vaccination [Z23] Acute gout of multiple sites, unspecified cause [M10.9] Superior mesenteric vein thrombosis [I81] Essential hypertension [I10] Vitamin D deficiency [E55.9] Order(s):ADMIN OF INFLUENZA VACCINE [[id number]] Order #: [id number]: 1 INFLUENZA SEASONAL HIGH DOSE AGE 65+ [[id number]] Order #: [id number] predniSONE (DELTASONE) 10 mg tabletTake 4 tabs daily for 3 days, then 2 tabs daily for 3 days, then 1 tab daily for 3 days with food.Disp: 21 tabletRfl: 0 oxyCODONE IR (ROXICODONE) 5 mg immediate release tabletTake 1 tablet by mouth every 6 hours as needed for Pain for up to 7 days. Earliest Fill Date: 01/24/18Disp: 28 tabletRfl: 0 Prescriptions as of 01/24/2018 Sig: DILTIAZEM SR 120 MG 24 HR CAP Take 1 capsule by mouth twice* WARFARIN 5 MG TABLET Take 1 tablet by mouth once d* Patient taking differently: Take 2.5 mg by mouth once kerline* ALLOPURINOL 300 MG TABLET Take 1 tablet by mouth once d* HYDROXYUREA 100 MG/ML ORAL LI* Take 5 mL by mouth once daily. ALBUTEROL SULFATE HFA 90 MCG/* Inhale 2 Puffs as instructed * ONDANSETRON HCL 4 MG TABLET Take 1 tablet by mouth every * MUPIROCIN 2 % TOPICAL OINTMENT Apply 1 application to affect* FAMOTIDINE 20 MG TABLET Take 20 mg by mouth twice kerline* CHOLECALCIFEROL (VITAMIN D3) * Take 1 tablet by mouth once d* VIT A-VIT X-CCGL-BHYLXUDM MAT* Take 1 tablet by mouth once d* CHLORHEXIDINE GLUCONATE 0.12 * Take 15 mL by mouth once cristiana* TIOTROPIUM 2.5 MCG-OLODATEROL* Inhale 2 Puffs as instructed * FLUTICASONE 110 MCG/ACTUATION* Inhale 1 Puff as instructed t* PREDNISONE 10 MG TABLET Take 4 tabs daily for 3 days,* OXYCODONE 5 MG TABLET Take 1 tablet by mouth every * Problem List As Of Date 01/24/2018 Noted Resolved Iron deficiency anemia [D50.9] INVALID FOR* Priority: Severe Peptic ulcer, unspecified site, unspecified as *INVALID FOR*10/30/2011 Esophageal stricture [K22.2] INVALID FOR* Priority: Moderate Diverticulosis of large intestine without hemor*INVALID FOR*01/24/2018 Nonspecific abnormal results of liver function *INVALID FOR*03/31/2011 More... Personal history of alcoholism [F10.21] INVALID FOR*02/12/2014 Tobacco use disorder [F17.200] INVALID FOR*02/21/2016 Interstitial lung disease (HCC) [J84.9] INVALID FOR* Lung nodule [R91.1] INVALID FOR*04/14/2013 More... Asthma [J45.909] INVALID FOR* COPD (chronic obstructive pulmonary disease) (H*INVALID FOR* Priority: C More... 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 Thrombocytosis (HCC) [D47.3] INVALID FOR* Priority: Severe Elevated protime [R79.1] INVALID FOR*01/24/2018 Elevated bilirubin [R17] INVALID FOR* Shortness of breath [R06.02] INVALID FOR*09/22/2017 Priority: A More... Body mass index (BMI) less than or equal to 19 *INVALID FOR* Malignant neoplasm of larynx (HCC) [C32.9] INVALID FOR* More... 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 Vitamin D deficiency [E55.9] INVALID FOR* Hypoalbuminemia [E88.09] INVALID FOR* Prolonged INR [R79.1] INVALID FOR*09/22/2017 More... 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 Essential hypertension [I10] INVALID FOR* Priority: D Acute gout of multiple sites [M10.9] INVALID FOR* Visit Notes: >> Annie Munoz LPN Alicia Jan 24, 2018 2:00 PM Status: Signed Influenza Vaccine Documentation: ? Patient is identified by name and date of : Yes ? Patient is older than 6 months of age: Yes ? Patient denies a severe allergy to any vaccine component or to a previous dose of influenza vaccine: Yes FOR EGG ALLERGY CONCERNS, REFER TO PROVIDER. ? Denies allergy to gelatin, formaldehyde, thimerosol :Yes ? Patient is afebrile and not moderately or severely ill: Yes ? Does the patient have a history of Guillain ?Paoli Syndrome (a severe paralytic illness): No ? Denies bone marrow transplant prior 6 months or solid organ transplant prior 3 months: Yes ? Denies a history of fainting after a prior injection or medical procedure? Yes If patient has fainted in the past, the CDC recommends sitting or lying down for 15 minutes after the vaccination. ? VIS sheet provided: Yes ? See Immunization Form in EpicCare for details of immunizations administered today. If patient reports dizziness, vision changes or ringing in the ears post vaccination ? please have patient sit or lie down for 15 minutes. Prescriptions ordered this encounter Disp Refills Start End PREDNISONE 10 MG TABLET 21 t* 0 01/24/2018 02/02/2018 Sig: Take 4 tabs daily for 3 days, then 2 tabs daily for 3 days, then 1 tab daily for 3 days with food. OXYCODONE 5 MG TABLET 28 t* 0 01/24/2018 01/31/2018 Class: Print RX Route: ORAL Sig: Take 1 tablet by mouth every 6 hours as needed for Pain for up to 7 days. Earliest Fill Date: 01/24/18 Medications Discontinued During This Encounter oxyCODONE-acetaminophen (PERCOCET) 5* 01/24/2018 Class: Historical Med Route: ORAL Sig: Take 1 tablet by mouth every 4 hours as needed. Disc: Changing Therapy/Dosage Form Disposition: Return in about 3 months (around 04/25/2018), or if symptoms worsen or fail to improve. Follow-up and Disposition History Recorded Encounter Status:Closed by VARUN WANG MD on 01/25/18 PROTIME Collected: 01/15/2018 Status: F Source: [place] 8:37 AM [facility] REPOSITORY TYPE CODE TESTS RESULT OUT OF RANGE REFERENCE UNITS LAB PSEC 9.7-13.0 sec High PT Sec 15.6 LAB INR 0.9-1.3 High PT INR 1.5 Result Comment: Vitamin K Antagonist (VKA) Therapeutic Range: INR 2 to 3 (Target INR of 2.5) Note: For patients treated with VKA drugs, such as warfarin, the [place] [employer] 2012 Guideline recommends a therapeutic INR range of 2 to 3 (target INR of 2.5). This recommendation includes high-risk patients with antiphospholipid syndrome with previous arterial or venous thromboembolism, current-generation mechanical or bioprosthetic aortic heart valve replacement. Note: Patients with mechanical aortic valve replacement and additional risk factors for thromboembolic events (atrial fibrillation, previous thromboembolism, LV dysfunction, hypercoagulable conditions) or an older generation mechanical AVR (i.e., ball in-Cage) or any mechanical MVR should have a INR therapeutic range of 2.5 to 3.5 (target INR of 3). Gunatantt GH, et al. Chest 2012, 141:7S-47S Caridad RA, et al. [facility] 2017, 70: 252-289 Performed By: #### PT #### [facility] Proenza Schouer [address] [place], [place] [address] PROGRESS Observed: 01/11/2018 Status: COMPLETED Source: [place] 4:37 PM [facility] REPOSITORY HNO ID: [id number] Author: Elizabeth La LPN Service: (none) Author Type: (none) Type: Progress Notes Filed: 01/11/2018 4:37 PM Note Text: patient notified of instructions with understanding. Patient correctly read back instructions PROGRESS Observed: 01/11/2018 Status: COMPLETED Source: [place] 3:27 PM [facility] REPOSITORY HNO ID: [id number] Author: Marta Escalante) [place] Service: (none) Author Type: Nurse Practitioner Type: Progress Notes Filed: 01/11/2018 4:37 PM Note Text: Hold today's dose, then continue 2.5 mg daily. Recheck in one week Marta Villasenor APRN.CNP PROGRESS Observed: 01/11/2018 Status: COMPLETED Source: [place] 9:06 AM [facility] REPOSITORY HNO ID: [id number] Author: Elizabeth La LPN Service: (none) Author Type: (none) Type: Progress Notes Filed: 01/11/2018 9:09 AM Note Text: INR - 4.0 - Results reviewed with patient. Current dose is 2.5 mg daily with last dose change on 01/07/2018. Previous INR on 01/07 was 2.3. . Advised he would be contacted regarding dosage instructions . instructed patient schedule is full on Sunday 01/14 for recheck and he will go to lab that day. Written instructions given and he verbalized understanding. Elizabeth La LPN ARLEEN CBC AND DIFF Collected: 01/10/2018 Status: F Source: [place] 8:30 AM [facility] REPOSITORY TYPE CODE TESTS RESULT OUT OF REFERENCE UNITS RANGE LAB WWBC 3.70-11.00 k/uL Arleen High WBC 15.21 LAB WRBC 4.20-6.00 m/uL [place] RBC 5.63 LAB WHGB 13.0-17.0 g/dL Low [place] Hemoglobin 11.8 LAB WHCT 39.0-51.0 % [place] Hematocrit 39.3 LAB WMCV 80.0-100.0 fL Low [place] MCV 69.8 LAB WMCH 26.0-34.0 pg Low [place] MCH 21.0 LAB WMCHC 30.5-36.0 g/dL Low Arleen MCHC 30.0 LAB WRDW 11.5-15.0 % [place] High RDW 27.1 LAB WPLT 150-400 k/uL Arleen High Platelet Cnt 730 LAB WMPV 9.0-12.7 fL [place] MPV 9.6 Result Comment: Test performed at: [facility] [place], [address] [place] [address]. LAB CBCCOM Preliminary Comment result. Interpret with caution. Final results may vary. Results requested and read back by: Result Comment: WBC=15.76,RECHECKED LAB WNEU % 82 [place] Neut% LAB WLYM % 7 [place] Lymp% LAB WMON % 2 [place] Preston% LAB WEO % 7 [place] Eos% LAB WBAS % 2 [place] Baso% LAB WANEU 1.45-7. k/uL 50 12.47 High Arleen Abs Neut LAB WALYM 1.00-4. k/uL 00 1.06 [place] Abs Lymp LAB WAMON <0.87 k/uL 0.30 [place] Abs Preston LAB WAEO <0.46 k/uL 1.06 High [place] Abs Eos LAB WABAS <0.11 k/uL 0.30 High [place] Abs Baso LAB WRBCM Anisocytosis [place] RBC Morph Result Comment: Slight Polychromasia 2+ Ovalocytes 1+ Tear Drop Cells 1+ Schistocytes LAB WDFCOM Arleen Present Diff Comment Result Comment: Hypersegmented PMNs LAB WPLTE [place]leen Platelet Platelet Est estimate increased Performed By: #### WCBCDF #### [facility] [address] [place], [place] [address] PROGRESS Observed: 01/07/2018 Status: COMPLETED Source: [place] 3:19 PM [facility] REPOSITORY HNO ID: [id number] Author: Nandini Major RN Service: (none) Author Type: (none) Type: Progress Notes Filed: 01/07/2018 3:21 PM Note Text: Patient notified of results and provider's instructions. Patient verbalizes understanding. Patient is aware that he must go to lab on , as coumadin clinic is closed that day. Nandini Major RN PROGRESS Observed: 01/07/2018 Status: COMPLETED Source: [place] 3:13 PM [facility] REPOSITORY HNO ID: [id number] Author: Varun Wang Service: (none) Author Type: Physician Type: Progress Notes Filed: 01/07/2018 3:21 PM Note Text: Noted patient did NOT restart Lovenox as directed. Fine, stay off Lovenox now. Continue Coumadin dose 2.5 mg daily. INR in 3 days. PROGRESS Observed: 01/07/2018 Status: COMPLETED Source: [place] 2:01 PM [facility] REPOSITORY HNO ID: [id number] Author: Nandini Major RN Service: (none) Author Type: (none) Type: Progress Notes Filed: 01/07/2018 3:21 PM Note Text: INR 2.3-results reviewed with patient. Current Coumadin dose is 5 mg daily (and is off Lovenox, after his procedure last week) . Now on second week of antibiotic from cellulitis infection on left 2nd digit. 2 week course, he does not know name of antibiotic. with last dose change on 12/13/17 and previous dose of 2.5 mg daily Last INR on 12/28/17 was 1.9. Has 2.5 mg tablets. Advised patient would be contacted regarding dosage and followup instructions after review by provider. Patient was already scheduled for follow up in one week, 01/14/18. Please advise on dose. Nandini Major RN PROGRESS Observed: 01/07/2018 Status: COMPLETED Source: [place] 12:27 PM [facility] REPOSITORY HNO ID: [id number] Author: Josie Munson Service: (none) Author Type: Physician Type: Progress Notes Filed: 01/12/2018 7:46 PM Note Text: [facility] Jonathon Koehler Department of Cardiovascular Medicine SECTION OF VASCULAR MEDICINE OUTPATIENT VISIT DATE January 07, 2018 OUTPATIENT VISIT TYPE ESTABLISHED Follow up regarding: SMV thrombosis Allergies: is allergic to doxycycline. Medications: Current Outpatient Prescriptions: diltiazem CD (CARDIZEM CD) 120 mg 24 hr capsule Take 1 capsule by mouth twice daily. fluconazole (DIFLUCAN) 100 mg tablet Take 1 tablet by mouth once daily for 21 days. warfarin (COUMADIN) 5 mg tablet Take 1 tablet by mouth once daily. As directed enoxaparin (LOVENOX) 60 mg/0.6 mL syrg Inject 0.6 mL subcutaneously q 12 HR. INJECT CONTENTS OF ONE SYRINGE allopurinol (ZYLOPRIM) 300 mg tablet Take 1 tablet by mouth once daily. This can be crushed. hydroxyurea (HYDREA) 100 mg/mL oral liquid Take 5 mL by mouth once daily. albuterol HFA (VENTOLIN HFA) 90 mcg/actuation inhaler Inhale 2 Puffs as instructed every 6 hours as needed for Wheezing/Shortness of Breath. ondansetron (ZOFRAN) 4 mg tablet Take 1 tablet by mouth every 6 hours as needed. mupirocin (BACTROBAN) 2 % ointment Apply 1 application to affected area twice daily. famotidine (PEPCID) 20 mg tablet Take 20 mg by mouth twice daily. oxyCODONE-acetaminophen (PERCOCET) 5-325 mg tablet Take 1 tablet by mouth every 4 hours as needed. Cholecalciferol, Vitamin D3, (VITAMIN D-3) 1,000 unit chew Take 1 tablet by mouth once daily. Vit A-Vit L-Jvuk-Uuliieza (ZINC, WITH A AND C, LOZENGES) lozg Take 1 tablet by mouth once daily. Let dissolve in mouth. (Patient not taking: Reported on 01/07/2018 ) Chlorhexidine Gluconate (PERIDEX) 0.12 % solution Take 15 mL by mouth once daily. Swish for 30 seconds and then spit out. (Patient not taking: Reported on 01/07/2018 ) tiotropium-olodaterol (STIOLTO RESPIMAT) 2.5-2.5 mcg/actuation mist Inhale 2 Puffs as instructed once daily. fluticasone (FLOVENT) 110 mcg/actuation inhaler Inhale 1 Puff as instructed twice daily. No current facility-administered medications for this visit. Review of history: As below Subjective: As below Objective: BP 124/58 (BP Site: Right Arm, BP Position: Sitting, BP Cuff Size: Regular Adult) Pulse 78 Temp 36.3 ?C (97.3 ?F) (Oral) Ht 180.3 cm (5' 11) Wt 54.8 kg (120 lb 14.4 oz) SpO2 94% BMI 16.86 kg/m? Gen. 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 In CT from 11/29/17 reported SMV thrombosis extending into the proximal portion of protal vein. ? In setting of MDS and + JAK2 V617F, long term care administrator anticoagulation is indicated. Ideally I would favor Lovenox 1 mg/kg BID, though on evaluation patient does not have subcutaneous tissue and would increase risk of complications with Lovenox therapy. 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 I recommend long-term anticoagulation with warfarin with INR: 2-3 I discussed with patient with upcoming appointment he will bring the actual images of the CT scan he had in November to review that to confirm the superior mesenteric vein thrombosis Josie Munson MD CNOV Observed: 01/07/2018 Status: COMPLETED Source: [place] 10:15 AM [facility] REPOSITORY Office Visit (PERVMN) SABINA FLORES ([id number]) 1940 M Date Time Provider Department 01/07/18 10:15 AM JOSIE MUNSON During your visit today, we recorded the following information about you: Temperature Pulse Blood pressure Weight 97.3 degrees 78/minute 124/58 54.8 kg Height 1.803 m Josie Munson MD 01/12/2018 7:46 PM Signed [facility] Jonathon Koehler Department of Cardiovascular Medicine SECTION OF VASCULAR MEDICINE OUTPATIENT VISIT DATE January 07, 2018 OUTPATIENT VISIT TYPE ESTABLISHED Follow up regarding: SMV thrombosis Allergies: is allergic to doxycycline. Medications: Current Outpatient Prescriptions: diltiazem CD (CARDIZEM CD) 120 mg 24 hr capsule Take 1 capsule by mouth twice daily. fluconazole (DIFLUCAN) 100 mg tablet Take 1 tablet by mouth once daily for 21 days. warfarin (COUMADIN) 5 mg tablet Take 1 tablet by mouth once daily. As directed enoxaparin (LOVENOX) 60 mg/0.6 mL syrg Inject 0.6 mL subcutaneously q 12 HR. INJECT CONTENTS OF ONE SYRINGE allopurinol (ZYLOPRIM) 300 mg tablet Take 1 tablet by mouth once daily. This can be crushed. hydroxyurea (HYDREA) 100 mg/mL oral liquid Take 5 mL by mouth once daily. albuterol HFA (VENTOLIN HFA) 90 mcg/actuation inhaler Inhale 2 Puffs as instructed every 6 hours as needed for Wheezing/Shortness of Breath. ondansetron (ZOFRAN) 4 mg tablet Take 1 tablet by mouth every 6 hours as needed. mupirocin (BACTROBAN) 2 % ointment Apply 1 application to affected area twice daily. famotidine (PEPCID) 20 mg tablet Take 20 mg by mouth twice daily. oxyCODONE-acetaminophen (PERCOCET) 5-325 mg tablet Take 1 tablet by mouth every 4 hours as needed. Cholecalciferol, Vitamin D3, (VITAMIN D-3) 1,000 unit chew Take 1 tablet by mouth once daily. Vit A-Vit Z-Ttwf-Ebfbzhxw (ZINC, WITH A AND C, LOZENGES) lozg Take 1 tablet by mouth once daily. Let dissolve in mouth. (Patient not taking: Reported on 01/07/2018 ) Chlorhexidine Gluconate (PERIDEX) 0.12 % solution Take 15 mL by mouth once daily. Swish for 30 seconds and then spit out. (Patient not taking: Reported on 01/07/2018 ) tiotropium-olodaterol (STIOLTO RESPIMAT) 2.5-2.5 mcg/actuation mist Inhale 2 Puffs as instructed once daily. fluticasone (FLOVENT) 110 mcg/actuation inhaler Inhale 1 Puff as instructed twice daily. No current facility-administered medications for this visit. Review of history: As below Subjective: As below Objective: BP 124/58 (BP Site: Right Arm, BP Position: Sitting, BP Cuff Size: Regular Adult) Pulse 78 Temp 36.3 ?C (97.3 ?F) (Oral) Ht 180.3 cm (5' 11) Wt 54.8 kg (120 lb 14.4 oz) SpO2 94% BMI 16.86 kg/m? Gen. 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 In CT from 11/29/17 reported SMV thrombosis extending into the proximal portion of protal vein. ? In setting of MDS and + JAK2 V617F, long term care administrator anticoagulation is indicated. Ideally I would favor Lovenox 1 mg/kg BID, though on evaluation patient does not have subcutaneous tissue and would increase risk of complications with Lovenox therapy. 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 ALBUTEROL SULFATE HFA 90 MCG/* Inhale 2 Puffs as instructed * ONDANSETRON HCL 4 MG TABLET Take 1 tablet by mouth every * MUPIROCIN 2 % TOPICAL OINTMENT Apply 1 application to affect* FAMOTIDINE 20 MG TABLET Take 20 mg by mouth twice kerline* OXYCODONE-ACETAMINOPHEN 5 MG-* Take 1 tablet by mouth every * CHOLECALCIFEROL (VITAMIN D3) * Take 1 tablet by mouth once d* VIT A-VIT F-AKZB-BIWKBYFD MAT* Take 1 tablet by mouth once d* Patient not taking: Reported on 01/07/2018 CHLORHEXIDINE GLUCONATE 0.12 * Take 15 mL by mouth once cristiana* Patient not taking: Reported on 01/07/2018 TIOTROPIUM 2.5 MCG-OLODATEROL* Inhale 2 Puffs as instructed * FLUTICASONE 110 MCG/ACTUATION* Inhale 1 Puff as instructed t* Problem List As Of Date 01/07/2018 Noted Resolved Iron deficiency anemia [D50.9] INVALID FOR* Priority: Severe Peptic ulcer, unspecified site, unspecified as *INVALID FOR*10/30/2011 Esophageal stricture [K22.2] INVALID FOR* Priority: Moderate Diverticulosis of large intestine without hemor*INVALID FOR* Nonspecific abnormal results of liver function *INVALID FOR*03/31/2011 More... Personal history of alcoholism [F10.21] INVALID FOR*02/12/2014 Tobacco use disorder [F17.200] INVALID FOR*02/21/2016 Interstitial lung disease (HCC) [J84.9] INVALID FOR* Lung nodule [R91.1] INVALID FOR*04/14/2013 More... Asthma [J45.909] INVALID FOR* COPD (chronic obstructive pulmonary disease) (H*INVALID FOR* Priority: C More... 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 Thrombocytosis (HCC) [D47.3] INVALID FOR* Priority: Severe Elevated protime [R79.1] INVALID FOR* Elevated bilirubin [R17] INVALID FOR* Shortness of breath [R06.02] INVALID FOR*09/22/2017 Priority: A More... Body mass index (BMI) less than or equal to 19 *INVALID FOR* Malignant neoplasm of larynx (HCC) [C32.9] INVALID FOR* More... 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 Vitamin D deficiency [E55.9] INVALID FOR* More... Hypoalbuminemia [E88.09] INVALID FOR* Prolonged INR [R79.1] INVALID FOR*09/22/2017 More... 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 Myeloproliferative disorder (HCC) [D47.1] INVALID FOR* Priority: B More... Essential hypertension [I10] INVALID FOR* Priority: D More... Disposition: Return in about 3 months (around 04/08/2018). Follow-up and Disposition History Recorded Encounter Status:Closed by JOSIE MUNSON on 01/12/18 URIC ACID Collected: 01/05/2018 Status: F Source: [place] 9:56 AM [facility] REPOSITORY TYPE CODE TESTS RESULT OUT OF RANGE REFERENCE UNITS LAB URIC 4.0-8.1 mg/dL Uric Acid 4.3 Performed By: #### URIC #### [facility] [address] [id number] EMERGENCY DEPARTMENT Observed: 01/02/2018 Status: F Source: [place] SUMMARY 7:23 PM [facility] [place] Medical Records Department [address] [place] [address] Emergency Department Summary 01/02/18 1710 MR#: [id number] Acct: [id number] Name: SABINA FLORES Rep #: [id number] : 1940 77 From: Yousif Moyer PCP: Varun Wang MD Status: REG ER - ER Visit Summary Date of Service: 01/02/18 Chief Complaint: Left finger swelling History of Present Illness: The patient is a 77 M continued swelling left index finger for the past week. History of gout, saw the urgent care week ago, placed on prednisone for 4 days. There is no improvement. States redness has increased. No fevers or drainage. Denies injuries. He is right-hand dominant. Gout normally in his toe and ankles. 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 Gets his warfarin checked weekly. Physical Examination: General: Alert and oriented 3, no acute distress HEENT: Normocephalic, atraumatic. Moist mucosa membranes Neck: supple, nontender. Cardiovascular: Regular rate and rhythm, no murmurs Respiratory: Normal breath sounds, symmetric, no distress Abdomen: Soft, nontender, nondistended Extremities: Left upper extremity: No elbow wrist pain. There is no hand pain. There is swelling the left index mostly at the PIP with redness that extends to the metacarpals of the second and third digits. No drainage. No streaking. Neuro: no focal neurological deficits. Test Results: INR 1.2. Left hand x-ray, concerns for early osteomyelitis of the proximal distal second phalanx. Emergency Department Course and Treatment: Patient not improving from prednisone afebrile. Redness concerns for cellulitis. Started on Keflex and doxycycline. He is on warfarin for INR checks 1.2. X-ray however return noted concerns of osteomyelitis distal second phalanx that may be early. Went back to discuss with patient findings to add blood work in admission for ostial concerns. However he states he did not want to stay in the hospital. Patient is alert and oriented 3 is capable of making decisions. Discuss with patient can lead to possible amputations or worsening infection. He understands. He will be given follow-up with orthopedic hand along with his PCP. Discuss signs and symptoms return. AMA forms were signed. Treatment Plan: [] Disposition: Discharge Impression: Left index finger cellulitis with concerns of osteomyelitis This note was generated with [employer] dictation software. It may contain incorrect words, spelling, and punctuation that were not noted in review of the chart prior to signing ED Disposition - Plan for ED Patient: Disposition: Home or Assisted Living Chief Complaint: Upper Extremity Injury Diagnosis: Cellulitis of left index finger, Concerns for osteomyelitis Prescriptions: Cephalexin [Keflex] 500 mg PO Q6 #56 capsule Doxycycline Monohydrate 100 mg PO BID #28 capsule Referrals: Gudelia Patel DO [STAFF PHYSICIAN] - 2 Days Varun Wang MD [Primary Care Provider] - 1 Day Additional Instructions: Left index finger cellulitis with concerns of osteomyelitis. Take antibiotics as prescribed. You signed out AGAINST MEDICAL ADVICE. Follow-up with orthopedics and your doctor. What to do if you have Problems For any increased pain, shortness of breath, bleeding, nausea or vomiting, chest pain, or any unexpected problems, contact your Primary Care Provider. Call [facility] ([phone]) or report to the closest Emergency Room. Call 911 if necessary. 01/02/181922 <Electronically signed by Yousif Moyer> Date Yousif Moyer Cosigner Signature (If Indicated): Date CC: Varun Wang MD PROTHROMBIN TIME W/INR Collected: 01/02/2018 Status: F Source: [place] 5:32 PM [facility] TYPE CODE TESTS RESULT OUT OF RANGE REFERENCE UNITS LAB L300.4150 11.7-14.9 SECONDS Normal PROTIME 14.7 LAB L300.4200 Normal INR 1.2 Performed By: #### L300.3900 #### [facility] [address] [place], [address] HAND MIN 3 VIEWS Observed: 01/02/2018 Status: F Source: [place] 5:10 PM [facility] [place] Imaging Services [address] [place] [address] Hand Min 3 Views MR#: [id number] Acct: [id number] Name: SABINA FLORES Rep #: [id number] : 1940 [facility] From: Major Albarado MD PCP: Varun Wang MD Status: REG ER Study: Hand Min 3 Views Date of Exam: 01/02/18 Exam# [id number] Ordering Dr: Yousif Quan DO STUDY: X-RAY - LEFT HAND REASON FOR EXAM: Male, 77 years old. Swelling of second digit TECHNIQUE: 3 view(s) of the hand. COMPARISON: None. FINDINGS: Normal radiocarpal articulation. Normal distal radioulnar joint. Normal visualized carpal bones. Normal carpal articulations Normal carpometacarpal articulation of the thumb. Normal second through fifth carpometacarpal joints. Normal metacarpi. Normal metacarpophalangeal joint of the thumb. Normal interphalangeal joint of the thumb. Normal proximal and distal phalanges of the thumb. Normal metacarpophalangeal joints of the second through fifth fingers. Normal proximal and distal interphalangeal joints of the second through fifth fingers. There is subtle cortical irregularity of the distal lateral cortex of the proximal phalanx of the second digit in association with soft tissue swelling Possibility of early changes of acute osteomyelitis not excluded. RAD/Hand Min 3 Views IMPRESSION: Findings suspicious for early changes of acute osteomyelitis of the distal shaft of the proximal phalanx of the second digit. Three- phase bone scan or MRI recommended for more definitive evaluation Electronically Signed: Major Albarado MD at 18:49 EDT , Service support , CC: Yousif Quan; Varun Wang MD Lining Scrubber: Signed XR OUTSIDE CD DICOM Observed: 01/02/2018 Status: F Source: [place] IMPORT -NBNR 12:00 AM [facility] REPOSITORY Images were obtained outside of [facility] [id number] [id number] POST Observed: 01/01/2018 Status: COMPLETED Source: [place] 1:34 PM [facility] REPOSITORY HNO ID: [id number] Author: Vanessa Quintana Service: Anesthesiology Author Type: Anesthesiologist Type: Anesthesia PostOp Filed: 01/01/2018 2:57 PM Note Text: ANESTHESIA POST-OP NOTE SERVICE DATE: 01/01/2018 SERVICE TIME: 2:56 PM Vitals: 107/67-95%-98 Validated vital signs: Yes No apparent anesthetic complications. The patient is appropriately hydrated with stable respiratory and cardiovascular status. Patient has safe and adequate airway control. The patient has appropriate pain relief and no significant post operative nausea or vomiting. The patient has achieved baseline mental status. Further assessment by Anesthesia Service: None Other remarks: SIGNATURE: Vanessa Quintana DO PATIENT NAME: Sabina Flores DATE: January 01, 2018 TIME: 2:56 PM PAGER/CONTACT #: [id number] PROGRESS Observed: 12/28/2017 Status: COMPLETED Source: [place] 4:25 PM [facility] REPOSITORY HNO ID: [id number] Author: Varun Wang Service: (none) Author Type: Physician Type: Progress Notes Filed: 12/28/2017 4:26 PM Note Text: Patient's request for medication is as follows Signed Prescriptions Disp Refills warfarin (COUMADIN) 5 mg tablet 30 tablet 2 Sig: Take 1 tablet by mouth once daily. As directed Varun Wang MD PROGRESS Observed: 12/28/2017 Status: COMPLETED Source: [place] 2:07 PM [facility] REPOSITORY HNO ID: [id number] Author: Yamile Shirley LPN Service: (none) Author Type: (none) Type: Progress Notes Filed: 12/28/2017 4:26 PM Note Text: Patient notified of results and provider's instructions. Patient verbalizes understanding. Pt is asking for a new rx for coumadin 5 mg(he has now 2.5 mg) Yamile Shirley XENIA PROGRESS Observed: 12/28/2017 Status: COMPLETED Source: [place] 11:03 AM [facility] REPOSITORY HNO ID: [id number] Author: Varun Wang Service: (none) Author Type: Physician Type: Progress Notes Filed: 12/28/2017 4:26 PM Note Text: Continue off warfarin as directed. Continue Lovenox twice a day, with last dose of Lovenox 24 hours before procedure, per Dr. Aguillon's instructions. So last Lovenox dose before procedure is Sept. 3 AM. No Lovenox on Sept 3 PM and on Dec 4 AM. I anticipate with surgeon's okay, he will resume Lovenox twice a day with coumadin 5 mg daily the evening of Dec. 4. He will stay on Lovenox twice daily until his INR is good. Schedule INR Sept. 7. PROGRESS Observed: 12/28/2017 Status: COMPLETED Source: [place] 10:41 AM [facility] REPOSITORY HNO ID: [id number] Author: Fidelia Parsons RN Service: (none) Author Type: (none) Type: Progress Notes Filed: 12/28/2017 10:45 AM Note Text: patient had inr completed at [facility] patients inr is 1.9 (patients inr range is 2.0-3.0) patient is currently holding 5mg daily patients last dose change was on 12/13/17 due to a low level of 1.6 (dose at that time was 2.5mg daily) patient has had a change in medication (see below) and no change in diet FYI - patient is scheduled for a procedure on 01/01/18 and was instructed by surgeon to stop coumadin on Sun and start lovenox injections on night until after procedure on 01/01/18 and the restart coumadin at 5mg daily on 01/02/18. patient has been scheduled for an inr recheck after restarting coumadin on 01/14/18. PROGRESS Observed: 12/28/2017 Status: COMPLETED Source: [place] 10:07 AM [facility] REPOSITORY HNO ID: [id number] Author: Swathi Melissa Service: (none) Author Type: Nurse Practitioner Type: Progress Notes Filed: 12/28/2017 10:25 AM Note Text: Subjective The history is provided by the patient. 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 HPI Sabina Flores is a 77 year old male who presents today for CC of right finger pain Onset/Duration: Yesterday and is worsening, he is also having right great toe pain. Alleviating/Treatment: None, Aggravating: movement Risk factors: H/o gout, recent increase in uric acid and placed on allopurinol BP 122/66 Pulse 100 Temp 36.3 ?C (97.3 ?F) (Tympanic) Resp 18 Wt 53.4 kg (117 lb 12.8 oz) BMI 16.43 kg/m? 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 Back Pain, Chronic History of Laryngeal Cancer Hypoxemia Severe Protein-Calorie Malnutrition (Hcc) Thrombocytosis (Hcc) Elevated Protime Elevated Bilirubin Body Mass Index (Bmi) Less Than Or Equal to 19 in Adult Malignant Neoplasm of Larynx (Hcc) Dysphagia History of Peptic Ulcer Nicotine Dependence Squamous Cell Carcinoma of Larynx (Hcc) Former Tobacco Use S/P Partial Gastrectomy Leukocytosis Vitamin D Deficiency Hypoalbuminemia Subclinical Hypothyroidism Low Serum Alkaline Phosphatase Elevated Blood Pressure 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) Essential Hypertension Family History Problem Relation Age of Onset - Cancer Brother lung cancer - Cancer Brother bone cancer - Cancer Brother brain tumor or cancer - Coronary Artery Disease Father age 64, [place] - None Mother age 95 Social History Marital status: Spouse name: Years of education: Number of children: Social History Main Topics Smoking status: Former Smoker Packs/day: 2.00 Years: 52.00 Types: Cigarettes Quit date: 09/01/2013 Smokeless tobacco: Never Used Alcohol use: Yes 6.0 oz/week Cans of Beer (12oz): 4 per week Drug use: No Sexual activity: No PAST MEDICAL HISTORY Diagnosis Date - ABNORMAL LIVER FUNCTION STUDY 01/11/2005 Alkaline phosphatemia - Body mass index (BMI) less than or equal to 19 in adult 03/28/2017 - COPD (chronic obstructive pulmonary disease) (HCC) 01/13/2013 - DIVERTICULOSIS OF COLON W/O BLEED 01/11/2005 - Dysphagia 09/18/2017 - 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 Assessment: Mesenteric venous thrombosis versus PUD versus pancreatitis versus esophageal perforation LUQ/midepigastric burning abdominal pain CT imaging showed superior mesenteric venous thrombosis Hx of pancreatitis, lipase 116 (11/29/17) Recent esophageal dilatation Plan: Consult vascular medicine, hematology Start heparin nomogram Start cipro/flagyl Continue famotidine Pain management - tylenol (mild), tramadol (moderate) Zofran prn nausea LR IVF Diet NPO KUB AM Lactate AM - Tobacco use disorder 01/11/2005 - Unspecified asthma(493.90) 03/03/2011 pt not aware Review of Systems Constitutional: Negative for chills, fever and malaise/fatigue. Musculoskeletal: Positive for joint pain (right index finger, right great toe). Negative for myalgias. Skin: Negative for rash. Neurological: Negative for tingling and headaches. Objective Physical Exam Constitutional: He is oriented to person, place, and time and well-developed, well-nourished, and in no distress. No distress. HENT: Head: Normocephalic and atraumatic. Eyes: Pupils are equal, round, and reactive to light. Conjunctivae and EOM are normal. Neck: Normal range of motion. Neck supple. Pulmonary/Chest: Effort normal. Musculoskeletal: Right hand: He exhibits decreased range of motion, tenderness and swelling. He exhibits no bony tenderness, normal two-point discrimination, normal capillary refill, no deformity and no laceration. Normal sensation noted. Normal strength noted. Hands: Right foot: There is tenderness and swelling. Feet: Neurological: He is alert and oriented to person, place, and time. Skin: Skin is warm and dry. Psychiatric: Affect normal. Nursing note and vitals reviewed. ASSESSMENT/PLAN: 1. Acute gout of multiple sites, unspecified cause - ICD9: 274.01, ICD10: M10.9 Take prednisone as directed If no improvement follow up with PCP To er for worsening symptoms. Diagnosis and treatment plan were discussed and questions were answered to the patient's satisfaction. Pt acknowledged understanding of concepts and follow up plan. Specific signs and symptoms that would indicate the need for higher level of care were discussed in detail warranting prompt ER evaluation. Swathi Melissa APRN.CNP CNOV Observed: 12/28/2017 Status: COMPLETED Source: [place] 10:00 AM [facility] REPOSITORY Office Visit ([facility]) SABINA FLORES ([id number]) 1940 M Date Time Provider Department 12/28/17 10:00 AM SWATHI MELISSA (PAIGE) [facility] During your visit today, we recorded the following information about you: Temperature Pulse Respiration Blood pressure 97.3 degrees 100/minute 18/minute 122/66 Weight 53.4 kg Swathi Melissa APRN.CNP 12/28/2017 10:07 AM Signed ASSESSMENT/PLAN: 1. Acute gout of multiple sites, unspecified cause - ICD9: 274.01, ICD10: M10.9 Take prednisone as directed If no improvement follow up with PCP Swathi Melissa APRN.CNP 12/28/2017 10:25 AM Signed Subjective The history is provided by the patient. 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 HPI Sabina Flores is a 77 year old male who presents today for CC of right finger pain Onset/Duration: Yesterday and is worsening, he is also having right great toe pain. Alleviating/Treatment: None, Aggravating: movement Risk factors: H/o gout, recent increase in uric acid and placed on allopurinol BP 122/66 Pulse 100 Temp 36.3 ?C (97.3 ?F) (Tympanic) Resp 18 Wt 53.4 kg (117 lb 12.8 oz) BMI 16.43 kg/m? 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 Back Pain, Chronic History of Laryngeal Cancer Hypoxemia Severe Protein-Calorie Malnutrition (Hcc) Thrombocytosis (Hcc) Elevated Protime Elevated Bilirubin Body Mass Index (Bmi) Less Than Or Equal to 19 in Adult Malignant Neoplasm of Larynx (Hcc) Dysphagia History of Peptic Ulcer Nicotine Dependence Squamous Cell Carcinoma of Larynx (Hcc) Former Tobacco Use S/P Partial Gastrectomy Leukocytosis Vitamin D Deficiency Hypoalbuminemia Subclinical Hypothyroidism Low Serum Alkaline Phosphatase Elevated Blood Pressure 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) Essential Hypertension Family History Problem Relation Age of Onset - Cancer Brother lung cancer - Cancer Brother bone cancer - Cancer Brother brain tumor or cancer - Coronary Artery Disease Father age 64, [place] - None Mother age 95 Social History Marital status: Spouse name: Years of education: Number of children: Social History Main Topics Smoking status: Former Smoker Packs/day: 2.00 Years: 52.00 Types: Cigarettes Quit date: 09/01/2013 Smokeless tobacco: Never Used Alcohol use: Yes 6.0 oz/week Cans of Beer (12oz): 4 per week Drug use: No Sexual activity: No PAST MEDICAL HISTORY Diagnosis Date - ABNORMAL LIVER FUNCTION STUDY 01/11/2005 Alkaline phosphatemia - Body mass index (BMI) less than or equal to 19 in adult 03/28/2017 - COPD (chronic obstructive pulmonary disease) (HCC) 01/13/2013 - DIVERTICULOSIS OF COLON W/O BLEED 01/11/2005 - Dysphagia 09/18/2017 - Esophageal stricture 01/11/2005 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 Assessment: Mesenteric venous thrombosis versus PUD versus pancreatitis versus esophageal perforation LUQ/midepigastric burning abdominal pain CT imaging showed superior mesenteric venous thrombosis Hx of pancreatitis, lipase 116 (11/29/17) Recent esophageal dilatation Plan: Consult vascular medicine, hematology Start heparin nomogram Start cipro/flagyl Continue famotidine Pain management - tylenol (mild), tramadol (moderate) Zofran prn nausea LR IVF Diet NPO KUB AM Lactate AM - Tobacco use disorder 01/11/2005 - Unspecified asthma(493.90) 03/03/2011 pt not aware Review of Systems Constitutional: Negative for chills, fever and malaise/fatigue. Musculoskeletal: Positive for joint pain (right index finger, right great toe). Negative for myalgias. Skin: Negative for rash. Neurological: Negative for tingling and headaches. Objective Physical Exam Constitutional: He is oriented to person, place, and time and well-developed, well-nourished, and in no distress. No distress. HENT: Head: Normocephalic and atraumatic. Eyes: Pupils are equal, round, and reactive to light. Conjunctivae and EOM are normal. Neck: Normal range of motion. Neck supple. Pulmonary/Chest: Effort normal. Musculoskeletal: Right hand: He exhibits decreased range of motion, tenderness and swelling. He exhibits no bony tenderness, normal two-point discrimination, normal capillary refill, no deformity and no laceration. Normal sensation noted. Normal strength noted. Hands: Right foot: There is tenderness and swelling. Feet: Neurological: He is alert and oriented to person, place, and time. Skin: Skin is warm and dry. Psychiatric: Affect normal. Nursing note and vitals reviewed. ASSESSMENT/PLAN: 1. Acute gout of multiple sites, unspecified cause - ICD9: 274.01, ICD10: M10.9 Take prednisone as directed If no improvement follow up with PCP To er for worsening symptoms. Diagnosis and treatment plan were discussed and questions were answered to the patient's satisfaction. Pt acknowledged understanding of concepts and follow up plan. Specific signs and symptoms that would indicate the need for higher level of care were discussed in detail warranting prompt ER evaluation. Swathi Melissa APRN.RIP AND GROOVE MACHINE OPERATOR Referring Provider: SELF [[id number]] Allergies As of Date: 12/28/2017 (No Known Allergies) Date Reviewed: 12/28/2017 Reviewed by: Rona Peña LPN - Fully Assessed Reason for Visit: left index finger pain and swelling [Other] Cmt: x 4 days Primary Visit Diagnosis:Acute gout of multiple sites, unspecified cause [M10.9] Order(s):predniSONE (DELTASONE) 20 mg tabletTake 2 tablets by mouth once daily for 4 days.Disp: 8 tabletRfl: 0 Prescriptions as of 12/28/2017 Sig: ENOXAPARIN 60 MG/0.6 ML SUBCU* Inject 0.6 mL subcutaneously * ALLOPURINOL 300 MG TABLET Take 1 tablet by mouth once d* HYDROXYUREA 100 MG/ML ORAL LI* Take 5 mL by mouth once daily. ALBUTEROL SULFATE HFA 90 MCG/* Inhale 2 Puffs as instructed * ONDANSETRON HCL 4 MG TABLET Take 1 tablet by mouth every * MUPIROCIN 2 % TOPICAL OINTMENT Apply 1 application to affect* FAMOTIDINE 20 MG TABLET Take 20 mg by mouth twice kerline* OXYCODONE-ACETAMINOPHEN 5 MG-* Take 1 tablet by mouth every * CHOLECALCIFEROL (VITAMIN D3) * Take 1 tablet by mouth once d* VIT A-VIT Y-IYGU-IFCHCAXL MAT* Take 1 tablet by mouth once d* CHLORHEXIDINE GLUCONATE 0.12 * Take 15 mL by mouth once cristiana* TIOTROPIUM 2.5 MCG-OLODATEROL* Inhale 2 Puffs as instructed * FLUTICASONE 110 MCG/ACTUATION* Inhale 1 Puff as instructed t* PREDNISONE 20 MG TABLET Take 2 tablets by mouth once * DILTIAZEM SR 120 MG 24 HR CAP Take 120 mg by mouth twice da* Problem List As Of Date 12/28/2017 Noted Resolved Iron deficiency anemia [D50.9] INVALID FOR* Priority: Severe Peptic ulcer, unspecified site, unspecified as *INVALID FOR*10/30/2011 Esophageal stricture [K22.2] INVALID FOR* Priority: Moderate Diverticulosis of large intestine without hemor*INVALID FOR* Nonspecific abnormal results of liver function *INVALID FOR*03/31/2011 More... Personal history of alcoholism [F10.21] INVALID FOR*02/12/2014 Tobacco use disorder [F17.200] INVALID FOR*02/21/2016 Interstitial lung disease (HCC) [J84.9] INVALID FOR* Lung nodule [R91.1] INVALID FOR*04/14/2013 More... Asthma [J45.909] INVALID FOR* COPD (chronic obstructive pulmonary disease) (H*INVALID FOR* Priority: C More... 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 Thrombocytosis (HCC) [D47.3] INVALID FOR* Priority: Severe Elevated protime [R79.1] INVALID FOR* Elevated bilirubin [R17] INVALID FOR* Shortness of breath [R06.02] INVALID FOR*09/22/2017 Priority: A More... Body mass index (BMI) less than or equal to 19 *INVALID FOR* Malignant neoplasm of larynx (HCC) [C32.9] INVALID FOR* More... 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 Vitamin D deficiency [E55.9] INVALID FOR* More... Hypoalbuminemia [E88.09] INVALID FOR* Prolonged INR [R79.1] INVALID FOR*09/22/2017 More... 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 Myeloproliferative disorder (HCC) [D47.1] INVALID FOR* Priority: B More... Essential hypertension [I10] INVALID FOR* Priority: D More... Other instructions from your clinician: ASSESSMENT/PLAN: 1. Acute gout of multiple sites, unspecified cause - ICD9: 274.01, ICD10: M10.9 Take prednisone as directed If no improvement follow up with PCP Prescriptions ordered this encounter Disp Refills Start End METHYLPREDNISOLONE 4 MG TABLETS IN A* 1 Pa* 0 12/28/2017 12/28/2017 Sig: Follow dosing instructions, take with food. Disc: Changing Therapy/Dosage Form PREDNISONE 20 MG TABLET 8 ta* 0 12/28/2017 01/01/2018 Route: ORAL Sig: Take 2 tablets by mouth once daily for 4 days. Medications Discontinued During This Encounter aspirin 81 mg chewable tablet 60 t* 3 12/06/2017 12/28/2017 Route: ORAL Sig: Take 1 tablet by mouth once daily. Disc: Course of therapy completed warfarin (COUMADIN) 2.5 mg tablet 60 t* 5 12/14/2017 12/28/2017 Route: ORAL Sig: Take 1 tablet by mouth daily as directed. Disc: Course of therapy completed methylPREDNISolone (MEDROL, GARRISON,) 4 * 1 Pa* 0 12/28/2017 12/28/2017 Sig: Follow dosing instructions, take with food. Disc: Changing Therapy/Dosage Form Encounter Status:Closed by SWATHI MELISSA CNP on 12/28/17 6 MINUTE WALK TEST Observed: 12/26/2017 Status: F Source: [place] 12:33 PM [facility] Pulmonary Services/Neurology [address] [place] [address] MR#: [id number] Acct: [id number] Name: SABINA FLORES Rep #: [id number] : 1940 77 From: Hood Sorto DO Referring Dr: Rosie Perea NP Date: Ordering Dr: Sex: M C Location: PSN PSN 6 Minute Walk Test - 6 Minute Walk Test 6 Minute Walk Test: 6 Minute Walk Test PSN:6-Minute Walk Test Start: 12/26/17 09:30 Freq: Status: Active Protocol: [id number] Document 12/26/17 09:31 SF[place] (Rec: 12/26/17 09:44 SFENTON [id number]) 6 Minute Walk Test Date Performed 12/26/17 Time Performed 09:00 Height 5 ft 11 in Weight: 125 lb Weight in Pounds 125.[address]: Garland Dobbins Assistive device used: None Pre-test Oxygen Delivery Method Room Air Pulse Ox (%) 91 Pulse Rate (60-100 beats/min) 88 Dyspnea Ashley Scale (0-10) 0.5 Exertion Aslhey Scale (6-20) 6 1st minute Oxygen Delivery Method Room Air Pulse Ox (%) 90 Pulse Rate (60-100 beats/min) 97 2nd minute Oxygen Delivery Method Room Air Pulse Ox (%) 85 Pulse Rate (60-100 beats/min) 102 H 3rd minute Oxygen Flow Rate (L/min) (L/min) 2 Oxygen Delivery Method Nasal Cannula Pulse Ox (%) 94 Pulse Rate (60-100 beats/min) 94 4th minute Oxygen Flow Rate (L/min) (L/min) 2 Oxygen Delivery Method Nasal Cannula Pulse Ox (%) 92 Pulse Rate (60-100 beats/min) 100 5th minute Oxygen Flow Rate (L/min) (L/min) 2 Oxygen Delivery Method Nasal Cannula Pulse Ox (%) 88 Pulse Rate (60-100 beats/min) 103 H 6th minute Oxygen Flow Rate (L/min) (L/min) 3 Oxygen Delivery Method Nasal Cannula Pulse Ox (%) 92 Pulse Rate (60-100 beats/min) 101 H Dyspnea Ashley Scale (0-10) 2 Exertion Ashley Scale (6-20) 13 Post-test Oxygen Flow Rate (L/min) (L/min) 3 Oxygen Delivery Method Nasal Cannula Pulse Ox (%) 98 Pulse Rate (60-100 beats/min) 87 Full Laps Walked 16 Partial Lap, Number of Tiles Walked 0 Total Distance Walked (ft) 944 12/26/17 09:41 Cardiopulmonary Services by Amrita Garrett Patient wears oxygen at night at home. Patient started testing on room air, SpO2 dropped in the second minute to 85%. Placed patient on 2 lpm O2 nasal cannula, SpO2 recovered to 96%. By the fifth minute patient was bouncing between 88% and 89%l, turned patient up to 3lpm for the rest of testing, SpO2 >90%. Patient's DME company is [employer]. Dr. Sorto called and aware. Initialized on 12/26/17 09:41 - END OF NOTE - Interpretation Interpretation: The patient ambulated 944 feet over the course of 6 minutes beginning on room air without assistive devices or breaks. Pretesting oxygen saturation was noted to be 91% on room air. With ambulation, the patient desaturated to 85% at minute 2 of testing. 2 L/min of supplemental oxygen was applied. However, the patient again desaturated to 88% at minute 5 testing, requiring escalation in his flow rate to 3 L/min. The patient was unable to complete the remainder of the test while maintaining oxygen saturations at or above 88%. - Recommendations Recommendations: 3 L/min of supplemental oxygen should be utilized with exertion. 12/26/17 1233 <Electronically signed by Hood Sorto DO> Date Hood Sorto DO CC: Date Dictated: 12/26/17 1231 Date Transcribed: 12/26/17 1231 Lining Scrubber: Hood Sorto DO Signed HOSP Observed: 12/26/2017 Status: COMPLETED Source: [place] 12:00 AM [facility] REPOSITORY Patient:Sabina Flores MRN: <[id number]> Height:5' 11(1.803 m) Weight:117 lb 12.8 oz (53.434 kg) Outpatient Medications as of 01/01/18: diltiazem CD (CARDIZEM CD) 120 mg 24 hr capsule predniSONE (DELTASONE) 20 mg tablet warfarin (COUMADIN) 5 mg tablet enoxaparin (LOVENOX) 60 mg/0.6 mL syrg allopurinol (ZYLOPRIM) 300 mg tablet hydroxyurea (HYDREA) 100 mg/mL oral liquid albuterol HFA (VENTOLIN HFA) 90 mcg/actuation inhaler ondansetron (ZOFRAN) 4 mg tablet mupirocin (BACTROBAN) 2 % ointment famotidine (PEPCID) 20 mg tablet oxyCODONE-acetaminophen (PERCOCET) 5-325 mg tablet Cholecalciferol, Vitamin D3, (VITAMIN D-3) 1,000 unit chew Vit A-Vit S-Qptl-Ueyucjuv (ZINC, WITH A AND C, LOZENGES) lozg Chlorhexidine Gluconate (PERIDEX) 0.12 % solution tiotropium-olodaterol (STIOLTO RESPIMAT) 2.5-2.5 mcg/actuation mist fluticasone (FLOVENT) 110 mcg/actuation inhaler Admission/Clinic Administered Medications as of 01/01/18: Patient has no admission medications. 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] Back pain, chronic [M54.9, G89.29] History of laryngeal cancer [Z85.21] Hypoxemia [R09.02] Severe protein-calorie malnutrition (HCC) [E43] Thrombocytosis (HCC) [D47.3] Elevated protime [R79.1] Elevated bilirubin [R17] Body mass index (BMI) less than or equal to 19 in adult [Z68.1] Malignant neoplasm of larynx (HCC) [C32.9] Dysphagia [R13.10] History of peptic ulcer [Z87.11] Nicotine dependence [F17.200] 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] Former tobacco use [Z87.891] S/P partial gastrectomy [Z90.3] Leukocytosis [D72.829] Vitamin D deficiency [E55.9] Hypoalbuminemia [E88.09] Subclinical hypothyroidism [E03.9] Low serum alkaline phosphatase [R74.8] Elevated blood pressure reading [R03.0] 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 MAHESH: No Date of last office visit in primary care: 12/07/17 Please advise. Thank you. Jenny Villasenor APRN.CNP 01/01/2018 9:34 AM Signed Needs to schedule follow-up with Dr. Wang. The following approved medication requests have been transmitted electronically. Signed Prescriptions Disp Refills diltiazem CD (CARDIZEM CD) 120 mg 24 hr capsule 180 capsule 1 Sig: Take 1 capsule by mouth twice daily. MAHESH: No Marta Villasenor APRN.RIP AND GROOVE MACHINE OPERATOR Progress Notes ([facility] Q3): Lynette Noonan, RN, RN 12/28/2017 10:55 AM Signed Spoke with patient: Yes Confirmed date scheduled and patient report time: Yes Procedure Planned:Esophagogastroduodenoscopy(EGD) with or without biopies based on clinical findings, removal of polyps or lesions Is the patient on blood thinners?yes Patient contacted their PCP for instructions Procedure Instructions given to patient: Yes, and they verbalized their understanding of instructions given Patient instructed to take prescribed preparation prior to procedure:Yes, and they verbalized their understanding of instructions given Patient instructed to have family/friend present for procedure? 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 and They verbalized their understanding and agree to have a responsible adult accompany the patient to their procedure and remain in the endoscopy area. Any barriers to Patient learning: Patient/Patient Centerless Grinding Machine Adjuster responded appropriately on phone. Type of instruction given: Verbal by telephone contact. Lynette Noonan RN PULMONARY FUNCTION Observed: 12/25/2017 Status: F Source: [place] REPORT COMP 1:38 PM [facility] [place] [facility] Pulmonary Services/Neurology [address] [place] [address] MR#: [id number] Acct: [id number] Name: SABINA FLORES Rep #: [id number] : 1940 77 From: Garland Dobbins MD Referring Dr: Rosie Perea PROJECT MANAGEMENT INSTRUCTOR Status: REG CLI Ordering Dr: Date: Location: [facility] Sex: M C COMPLETE PULMONARY FUNCTION TEST INTERPRETATION Brief HPI: Patient is a 77 year old male, currently under the care of Rosie Perea, who presents to [facility] for complete pulmonary function tests secondary to diagnosis of COPD. Respiratory therapist reports good effort and reproducible results. Interpretation: Forced expiration spirometry shows a very severe large airways obstructive ventilatory defect with an FEV1 of 46% predicted. There is no significant bronchodilator response by ATS criteria. Spirograms are of good quality and plateau slowly, indicating slowly emptying areas of the lungs. The respiratory flow volume loop shows decreased expiratory flow rates at all lung volumes consistent with airway obstruction. Lung volumes by body plethysmography show an elevated total lung capacity at 8.03 L, 121% predicted. FRC and RV are elevated out of proportion. Lung volume measurements are consistent with hyperinflation and air-trapping. Diffusion capacity by carbon monoxide is decreased at 41% predicted. The airway resistance is elevated. Compared to previous pulmonary function tests from 02/20/2017, there has been a significant reduction in FVC and FEV1. Impression: Irreversible severe large airways obstructive ventilatory defect with a reciprocal change in diffusing capacity, resulting in air trapping with hyperinflation, and consistent with patient's diagnosis of COPD. 12/25/17 1338 <Electronically signed by Garland Dobbins MD> Date Garland Dobbins MD CC: Garland Dobbins MD; Rosie Perea; Varun Wang MD Date Dictated: 12/25/171335 Date Transcribed: 12/25/171335 Lining Scrubber: BRIDGER Candelario PROGRESS Observed: 12/20/2017 Status: COMPLETED Source: [place] 3:19 PM [facility] HNO ID: [id number] Author: Marta Escalante) [place] Service: (none) Author Type: Nurse Practitioner Type: Progress Notes Filed: 12/20/2017 3:19 PM Note Text: Elvis Villasenor, CRUSHER SCREEN REPAIRER.RIP AND GROOVE MACHINE OPERATOR PROGRESS Observed: 12/20/2017 Status: COMPLETED Source: [place] 11:06 AM [facility] [place] REPOSITORY HNO ID: [id number] Author: Fidelia Parsons RN Service: (none) Author Type: (none) Type: Progress Notes Filed: 12/20/2017 11:07 AM Note Text: patient had inr completed at [facility] patients inr is 2.7 (patients inr range is is 2.0-3.0) patient is currently taking 5mg daily patients last dose change was on 12/13/17 due to a low level of 1.6 (dose at that time was 2.5mg daily) patient has had no changes in medication except for coumadin and no missed doses and no change in diet FYI- patient has noticed an increasing in bruising Advised patient to continue on the same dose(s) and that they would only be contacted regarding dosage and follow up instructions after review with provider, if a change is needed. Written instructions given and patient verbalized understanding. Presently scheduled in 1 week (12/28/17) for follow up INR. PROGRESS Observed: 12/13/2017 Status: COMPLETED Source: [place] 7:29 PM [facility] RE[facility] HNO ID: [id number] Author: Avtar Zarate Service: (none) Author Type: (none) Type: Progress Notes Filed: 12/13/2017 7:29 PM Note Text: TC to patient and message from provider given with voiced understanding per read back. PROGRESS Observed: 12/13/2017 Status: COMPLETED Source: [place] 4:52 PM [facility] [place] RE[facility]ITORY HNO ID: [id number] Author: Yamile Shirley LPN Service: (none) Author Type: (none) Type: Progress Notes Filed: 12/13/2017 7:29 PM Note Text: Message left for pt to return call to a nurse. PROGRESS Observed: 12/13/2017 Status: COMPLETED Source: [place] 3:11 PM [facility] REPOSITORY HNO ID: [id number] Author: Varun Wang Service: (none) Author Type: Physician Type: Progress Notes Filed: 12/13/2017 7:29 PM Note Text: Increase Coumadin dose. 5 mg daily. INR in 1 week. PROGRESS Observed: 12/13/2017 Status: COMPLETED Source: [place] 3:03 PM [facility] REPOSITORY HNO ID: [id number] Author: Fidelia Parsons RN Service: (none) Author Type: (none) Type: Progress Notes Filed: 12/13/2017 3:05 PM Note Text: patient had inr completed at [facility] patients inr is 1.6 (patients inr range is 2.0-3.0) patient is currently taking 2.5mg daily patients last dose change unknown at this time as this is the dose patient was on when starting with the CC last week patient has had no changes in medication and no missed doses and no change in diet Advised patient that they would be contacted regarding medication dose and when to follow up after information is reviewed by provider. After provider review please contact the patient with information and schedule follow up appointment with coumadin clinic. FYI - patient has been scheduled for a 1 week follow up inr on 12/21/17 CNOVSP Observed: 12/13/2017 Status: COMPLETED Source: [facility] 10:10 AM [facility] REPOSITORY Visit (SP) Office (ANIA) SABINA FLORES ([id number]) 1940 M Date Time Provider Department 12/13/17 10:10 AM MAURA AGUILLON During your visit today, we recorded the following information about you: Temperature Pulse Blood pressure Weight 97.6 degrees 77/minute 131/60 55.1 kg Sahara Melyssa MICHAELS 12/13/2017 10:27 AM Signed Est patient. Six week office visit. Discuss recent labs. Sahara Melyssa MICHAELS Maura Aguillon 12/13/2017 12:25 PM Signed Diagnoses: 1) JAK2 positive MPN. 2) Thrombocytosis. HPI: The patient is a 77-year-old male has a past medical history significant for COPD, GERD with previous peptic ulcer disease. He also has a history of head and neck cancer status post radiation and resection. History of esophageal dilation. He presented to the emergency department at [facility] in August with progressive dysphagia. Patient had a CT scan the abdomen and pelvis on 09/13/2017. Emphysematous changes were noted in the lung bases. There was a small amount of scarring in the left lung base. There was decreased attenuation of liver consistent with steatosis. Moderate splenomegaly was observed. No dimensions were rendered. There was heterogeneous enhancement of the spleen which was likely due to arterial phase of the exam. Pancreas was normal. Subsequent CT scan of the abdomen and pelvis when he was in emergency room on 09/23/2017 showed that there were new small bilateral pleural effusions, trace pericardial effusion which was new compared to the prior CT and again moderate splenomegaly with calcified splenic granulomas noted area no dimensions on the spleen were rendered. Review of previous CBCs available in the [facility] system indicate in October 2016 patient had a white count of 21,000. Differential was not performed. The hemoglobin was 13.8 g/dL and the total red blood cell count was 7,090,000/dL. Platelet count 805,000. He was referred to [facility] where he underwent an EGD on 09/21. 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 Biopsies however showed no evidence of malignancy. Stricture was attributed to previous radiation treatment. He was seen by hematology inpatient due to elevated white count, red blood cell count and platelet count. Molecular studies for myeloproliferative disorders were sent. JAK2 was positive. Presents for ongoing hematologic management. Interim history: Had EGD under general anesthesia with dilation on November 27. His has really helped his ability to swallow better. He was hospitalized first week of November [facility] for superior mesenteric vein thrombosis. He had presented to the emergency department at [facility] on 11/29/2017 with left upper quadrant pain. CT chest 11/29/2017: Once again, there is diffuse emphysematous changes. Stable area of scarring in the posterior aspect of the right upper lobe. There is a 1.7 cm by 1.2 cm nodular density adjacent to the descending thoracic aorta at the left lung base as seen on axial image #75. A similar appearing pleural-based nodule is seen in the posteromedial aspect of the left lower lobe measuring 1.7 cm. These were not seen on prior study due to the presence of the pleural effusions. Correlation with a PET scan is recommended. The previously seen pleural effusions have resolved. Normal heart and pericardium. Normal mediastinum. Enlarged right hilar lymph node measuring 2.4 cm. Normal enhanced pulmonary arteries. There is atherosclerotic calcification of the aortic arch with tortuosity and elongation of the aortic arch and descending thoracic aorta. Increased thoracic kyphosis. There is no demonstrated abnormality of the visualized upper abdomen. IMPRESSION: Diffuse emphysematous changes. Stable right hilar node enlargement. There are 2 noncalcified nodular densities in the left lower lobe as described. Correlation with a PET scan is recommended. CT A/P 11/29/2017: The previously seen small bilateral pleural effusions have resolved. Mild increased markings at the lung bases suggestive of scarring and/or atelectasis. There is a 1.1 cm pleural-based nodular density along the posterior medial aspect of the left lower lobe. This may represent scarring. Follow-up is recommended. Coronary artery calcification. Small pericardial effusion. Dilated intrahepatic biliary ducts. Slightly distended gallbladder. Dilated common bile duct. There is moderate splenomegaly. Stable calcified splenic granulomas. There is diffuse atrophy of the pancreas. An intraluminal filling defect is seen within the superior mesenteric vein in keeping with superior mesenteric venous thrombosis. This extends into the proximal portion of the portal vein at the spinal pleural junction. Normal bilateral adrenal glands. Normal right kidney. Normal left kidney. Normal visualized stomach. Surgical clips are seen at the gastroesophageal junction. Normal small intestine. Normal colon. The appendix is visualized and appears normal. There is diffuse atherosclerotic calcification of the abdominal aorta, without a demonstrated aneurysm. Normal inferior vena cava. There is borderline retroperitoneal lymphadenopathy with enlarged nodes no greater than 10mm in the short axis diameter. Distended urinary bladder. Normal abdominal wall. There are diffuse degenerative changes of the visualized lumbar spine. IMPRESSION: Findings suggest mild scarring at the lung bases. 1.1 cm pleural-based nodular density in the left lower lobe. Mild dilatation of the intrahepatic biliary ducts and mild dilatation of the gallbladder. Splenomegaly. Thrombosis of the superior mesenteric vein. While inpatient he was anticoagulated with Lovenox and then transitioned to warfarin. He was also seen by hematology consult with team and it was recommended that anagrelide be stopped due to the potential thrombogenic action of the drug. He was placed on liquid hydroxyurea. He is currently taking 500 mg a day. Abdominal pain is resolved. He's had no unusual bleeding or unexplained bruising. He has easy bruising. He hasn't had any episode of fever, chills or night sweats. He is tolerating Hydrea well with no attributable side effect. He is able to swallow it rather easily. Swallowing itself is improved. His appetite is doing well but he hasn't put on any weight as of yet. He reports that he feels his breathing is doing well. He has no shortness of breath at rest or with moderate exertion. He denies cough, wheezing and chest pain. PMH, medications and allergies personally reviewed by me today. Any changes documented in appropriate section. ROS: Constitutional: See above. Neuro: Denies ANGELES, vertigo, dizziness and imbalance. Denies symptoms of neuropathy other than occasional tingling in his fingertips which is transient. HEENT: No recent change in voice, vision or hearing. Resp: See above. CVS: Denies PND, orthopnea and LE edema. GI: Denies dysgeusia. Denies symptoms of stomatitis. Denies reflux, n/v, change in bowel habits and abdominal pain. : Denies dysuria or gross hematuria. No symptoms of bladder outlet obstruction. Endo: Denies hot flashes. Denies polyuria and polydipsia. Denies heat and cold intolerance. Musculoskeletal: Denies bone, back, joint and muscular pain. Derm: Denies rash. Denies jaundice and diffuse pruritis. Heme: See above. Psych: Normal mood. PHYSICAL EXAM: Vitals: Blood pressure 131/60, pulse 77, temperature 36.4 ?C (97.6 ?F), temperature source Temporal Artery, weight 55.1 kg (121 lb 8 oz). Thin, but well-appearing and in no acute distress. EYES: Sclerae are anicteric bilaterally. NECK: Supple. LYMPHATIC: There is no palpable cervical, supraclavicular or axillary adenopathy. RESPIRATORY: Inspiratory breath sounds are of diminished intensity in all michaels. No rales, wheezes or rhonchi. CARDIOVASCULAR: Rhythm is regular. Normal intensity S1/S2. ABDOMEN: The abdomen is nondistended. I cannot appreciate splenomegaly. No tenderness. Extremities: No swelling or edema. SKIN: No jaundice or rash. No petechiae. NEUROLOGIC: service desk associate II-XII are grossly intact. No focal motor weakness. MUSCULOSKELETAL: No muscle wasting. ASSESSMENT/PLAN: (D47.1) Myeloproliferative disorder (HCC) (primary encounter diagnosis) (D47.3) Thrombocytosis (HCC) Assessment: -In summary the patient is a 77-year-old male who has a history of elevated blood counts. 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 He has a remote history of bleeding gastric ulcer 50 years ago status post surgery. No known history of coronary artery or peripheral arterial disease. Risk factors for cardiovascular disease include hypertension and history of smoking. -He is off anagrelide to the potential thrombogenic action of the drug. He is tolerating liquid Hydrea very well. Platelet count has been trending down. Anemia stable. -I discussed with him and his today that like him to continue the current dose of Hydrea. We will continue checking a CBC once a month and dose adjusting as indicated. -Bone marrow biopsy was recommended by the team at [facility]. This will be deferred until he completes a 3 month course of anticoagulation. Plan: -Continue Hydrea 500 mg daily. -CBC with diff monthly. -He will continue under the care of his primary care physician for management of other modifiable cardiovascular risk factors. (I81) Superior mesenteric vein thrombosis Assessment: -Patient has several risk factors for thrombosis including underlying myeloproliferative, JAK2 positive neoplasm and recent use of anagrelide. -Tolerating anticoagulation well in conjunction with ASA with no unusual bleeding. Plan: -Complete 3 months of anticoagulation. (R91.8) Lung nodules Assessment: -Personally reviewed the CT scan images done at [facility] of the chest, abdomen and pelvis. When compared to the study done in August, there is less pleural effusion on the current CT scan. There were areas of either compressive atelectasis or infiltrate on the previous CT. Plan: -CT chest along with A/P in about 2 months. PET and pulmonary evaluation if nodules persistent or larger. 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 WARFARIN 2.5 MG TABLET Take 1 tablet by mouth daily * ASPIRIN 81 MG CHEWABLE TABLET Take 1 tablet by mouth once d* ALBUTEROL SULFATE HFA 90 MCG/* Inhale 2 Puffs as instructed * ONDANSETRON HCL 4 MG TABLET Take 1 tablet by mouth every * MUPIROCIN 2 % TOPICAL OINTMENT Apply 1 application to affect* DILTIAZEM SR 120 MG 24 HR CAP Take 120 mg by mouth twice da* FAMOTIDINE 20 MG TABLET Take 20 mg by mouth twice kerline* OXYCODONE-ACETAMINOPHEN 5 MG-* Take 1 tablet by mouth every * CHOLECALCIFEROL (VITAMIN D3) * Take 1 tablet by mouth once d* VIT A-VIT R-VYJK-LHSRTKPC MAT* Take 1 tablet by mouth once d* CHLORHEXIDINE GLUCONATE 0.12 * Take 15 mL by mouth once cristiana* TIOTROPIUM 2.5 MCG-OLODATEROL* Inhale 2 Puffs as instructed * FLUTICASONE 110 MCG/ACTUATION* Inhale 1 Puff as instructed t* ALLOPURINOL 300 MG TABLET Take 1 tablet by mouth once d* Problem List As Of Date 12/13/2017 Noted Resolved Iron deficiency anemia [D50.9] INVALID FOR* Priority: Severe Peptic ulcer, unspecified site, unspecified as *INVALID FOR*10/30/2011 Esophageal stricture [K22.2] INVALID FOR* Priority: Moderate Diverticulosis of large intestine without hemor*INVALID FOR* Nonspecific abnormal results of liver function *INVALID FOR*03/31/2011 More... Personal history of alcoholism [F10.21] INVALID FOR*02/12/2014 Tobacco use disorder [F17.200] INVALID FOR*02/21/2016 Interstitial lung disease (HCC) [J84.9] INVALID FOR* Lung nodule [R91.1] INVALID FOR*04/14/2013 More... Asthma [J45.909] INVALID FOR* COPD (chronic obstructive pulmonary disease) (H*INVALID FOR* Priority: C More... 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 Thrombocytosis (HCC) [D47.3] INVALID FOR* Priority: Severe Elevated protime [R79.1] INVALID FOR* Elevated bilirubin [R17] INVALID FOR* Shortness of breath [R06.02] INVALID FOR*09/22/2017 Priority: A More... Body mass index (BMI) less than or equal to 19 *INVALID FOR* Malignant neoplasm of larynx (HCC) [C32.9] INVALID FOR* More... 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 Vitamin D deficiency [E55.9] INVALID FOR* More... Hypoalbuminemia [E88.09] INVALID FOR* Prolonged INR [R79.1] INVALID FOR*09/22/2017 More... 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 Myeloproliferative disorder (HCC) [D47.1] INVALID FOR* Priority: B More... Essential hypertension [I10] INVALID FOR* Priority: D More... Visit Notes: >> Sahara Ragsdale LPN [facility] Dec 13, 2017 9:34 AM Status: Signed Est patient. Six week office visit. Discuss recent labs. Sahara Ragsdale LPN Encounter Status:Closed by MAURA AGUILLON DO on 12/13/17 PROGRESS Observed: 12/13/2017 Status: COMPLETED Source: [facility] 9:42 AM [facility] REPOSITORY [facility] ID: [id number] Author: Maura Aguillon Service: (none) Author Type: Physician Type: Progress Notes Filed: 12/13/2017 12:25 PM Note Text: Diagnoses: 1) JAK2 positive MPN. 2) Thrombocytosis. HPI: The patient is a 77-year-old male has a past medical history significant for COPD, GERD with previous peptic ulcer disease. He also has a history of head and neck cancer status post radiation and resection. History of esophageal dilation. He presented to the emergency department at [facility] in August with progressive dysphagia. Patient had a CT scan the abdomen and pelvis on 09/13/2017. Emphysematous changes were noted in the lung bases. There was a small amount of scarring in the left lung base. There was decreased attenuation of liver consistent with steatosis. Moderate splenomegaly was observed. No dimensions were rendered. There was heterogeneous enhancement of the spleen which was likely due to arterial phase of the exam. Pancreas was normal. Subsequent CT scan of the abdomen and pelvis when he was in emergency room on 09/23/2017 showed that there were new small bilateral pleural effusions, trace pericardial effusion which was new compared to the prior CT and again moderate splenomegaly with calcified splenic granulomas noted area no dimensions on the spleen were rendered. Review of previous CBCs available in the [facility] system indicate in October 2016 patient had a white count of 21,000. Differential was not performed. The hemoglobin was 13.8 g/dL and the total red blood cell count was 7,090,000/dL. Platelet count 805,000. [facility] where he underwent an EGD on 09/21. 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 Biopsies however showed no evidence of malignancy. Stricture was attributed to previous radiation treatment. He was seen by hematology inpatient due to elevated white count, red blood cell count and platelet count. Molecular studies for myeloproliferative disorders were sent. JAK2 was positive. Presents for ongoing hematologic management. Interim history: Had EGD under general anesthesia with dilation on November 27. His has really helped his ability to swallow better. He was hospitalized first week of November [facility] for superior mesenteric vein thrombosis. He had presented to the emergency department at [facility] on 11/29/2017 with left upper quadrant pain. CT chest 11/29/2017: Once again, there is diffuse emphysematous changes. Stable area of scarring in the posterior aspect of the right upper lobe. There is a 1.7 cm by 1.2 cm nodular density adjacent to the descending thoracic aorta at the left lung base as seen on axial image #75. A similar appearing pleural-based nodule is seen in the posteromedial aspect of the left lower lobe measuring 1.7 cm. These were not seen on prior study due to the presence of the pleural effusions. Correlation with a PET scan is recommended. The previously seen pleural effusions have resolved. Normal heart and pericardium. Normal mediastinum. Enlarged right hilar lymph node measuring 2.4 cm. Normal enhanced pulmonary arteries. There is atherosclerotic calcification of the aortic arch with tortuosity and elongation of the aortic arch and descending thoracic aorta. Increased thoracic kyphosis. There is no demonstrated abnormality of the visualized upper abdomen. IMPRESSION: Diffuse emphysematous changes. Stable right hilar node enlargement. There are 2 noncalcified nodular densities in the left lower lobe as described. Correlation with a PET scan is recommended. CT A/P 11/29/2017: The previously seen small bilateral pleural effusions have resolved. Mild increased markings at the lung bases suggestive of scarring and/or atelectasis. There is a 1.1 cm pleural-based nodular density along the posterior medial aspect of the left lower lobe. This may represent scarring. Follow-up is recommended. Coronary artery calcification. Small pericardial effusion. Dilated intrahepatic biliary ducts. Slightly distended gallbladder. Dilated common bile duct. There is moderate splenomegaly. Stable calcified splenic granulomas. There is diffuse atrophy of the pancreas. An intraluminal filling defect is seen within the superior mesenteric vein in keeping with superior mesenteric venous thrombosis. This extends into the proximal portion of the portal vein at the spinal pleural junction. Normal bilateral adrenal glands. Normal right kidney. Normal left kidney. Normal visualized stomach. Surgical clips are seen at the gastroesophageal junction. Normal small intestine. Normal colon. The appendix is visualized and appears normal. There is diffuse atherosclerotic calcification of the abdominal aorta, without a demonstrated aneurysm. Normal inferior vena cava. There is borderline retroperitoneal lymphadenopathy with enlarged nodes no greater than 10mm in the short axis diameter. Distended urinary bladder. Normal abdominal wall. There are diffuse degenerative changes of the visualized lumbar spine. IMPRESSION: Findings suggest mild scarring at the lung bases. 1.1 cm pleural-based nodular density in the left lower lobe. Mild dilatation of the intrahepatic biliary ducts and mild dilatation of the gallbladder. Splenomegaly. Thrombosis of the superior mesenteric vein. While inpatient he was anticoagulated with Lovenox and then transitioned to warfarin. He was also seen by hematology consult with team and it was recommended that anagrelide be stopped due to the potential thrombogenic action of the drug. He was placed on liquid hydroxyurea. He is currently taking 500 mg a day. Abdominal pain is resolved. He's had no unusual bleeding or unexplained bruising. He has easy bruising. He hasn't had any episode of fever, chills or night sweats. He is tolerating Hydrea well with no attributable side effect. He is able to swallow it rather easily. Swallowing itself is improved. His appetite is doing well but he hasn't put on any weight as of yet. He reports that he feels his breathing is doing well. He has no shortness of breath at rest or with moderate exertion. He denies cough, wheezing and chest pain. PMH, medications and allergies personally reviewed by me today. Any changes documented in appropriate section. ROS: Constitutional: See above. Neuro: Denies ANGELES, vertigo, dizziness and imbalance. Denies symptoms of neuropathy other than occasional tingling in his fingertips which is transient. HEENT: No recent change in voice, vision or hearing. Resp: See above. CVS: Denies PND, orthopnea and LE edema. GI: Denies dysgeusia. Denies symptoms of stomatitis. Denies reflux, n/v, change in bowel habits and abdominal pain. : Denies dysuria or gross hematuria. No symptoms of bladder outlet obstruction. Endo: Denies hot flashes. Denies polyuria and polydipsia. Denies heat and cold intolerance. Musculoskeletal: Denies bone, back, joint and muscular pain. Derm: Denies rash. Denies jaundice and diffuse pruritis. Heme: See above. Psych: Normal mood. PHYSICAL EXAM: Vitals: Blood pressure 131/60, pulse 77, temperature 36.4 ?C (97.6 ?F), temperature source Temporal Artery, weight 55.1 kg (121 lb 8 oz). Thin, but well-appearing and in no acute distress. EYES: Sclerae are anicteric bilaterally. NECK: Supple. LYMPHATIC: There is no palpable cervical, supraclavicular or axillary adenopathy. RESPIRATORY: Inspiratory breath sounds are of diminished intensity in all michaels. No rales, wheezes or rhonchi. CARDIOVASCULAR: Rhythm is regular. Normal intensity S1/S2. ABDOMEN: The abdomen is nondistended. I cannot appreciate splenomegaly. No tenderness. Extremities: No swelling or edema. SKIN: No jaundice or rash. No petechiae. NEUROLOGIC: service desk associate II-XII are grossly intact. No focal motor weakness. MUSCULOSKELETAL: No muscle wasting. ASSESSMENT/PLAN: (D47.1) Myeloproliferative disorder (HCC) (primary encounter diagnosis) (D47.3) Thrombocytosis (HCC) Assessment: -In summary the patient is a 77-year-old male who has a history of elevated blood counts. 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 He has a remote history of bleeding gastric ulcer 50 years ago status post surgery. No known history of coronary artery or peripheral arterial disease. Risk factors for cardiovascular disease include hypertension and history of smoking. -He is off anagrelide to the potential thrombogenic action of the drug. He is tolerating liquid Hydrea very well. Platelet count has been trending down. Anemia stable. -I discussed with him and his today that like him to continue the current dose of Hydrea. We will continue checking a CBC once a month and dose adjusting as indicated. -Bone marrow biopsy was recommended by the team at [facility]. This will be deferred until he completes a 3 month course of anticoagulation. Plan: -Continue Hydrea 500 mg daily. -CBC with diff monthly. -He will continue under the care of his primary care physician for management of other modifiable cardiovascular risk factors. (I81) Superior mesenteric vein thrombosis Assessment: -Patient has several risk factors for thrombosis including underlying myeloproliferative, JAK2 positive neoplasm and recent use of anagrelide. -Tolerating anticoagulation well in conjunction with ASA with no unusual bleeding. Plan: -Complete 3 months of anticoagulation. (R91.8) Lung nodules Assessment: -Personally reviewed the CT scan images done at [facility] of the chest, abdomen and pelvis. When compared to the study done in August, there is less pleural effusion on the current CT scan. There were areas of either compressive atelectasis or infiltrate on the previous CT. Plan: -CT chest along with A/P in about 2 months. PET and pulmonary evaluation if nodules persistent or larger. Maura Aguillon DO [place] ABS GR + CBC Collected: 12/13/2017 Status: F Source: [place] 9:15 AM [facility] REPOSITORY TYPE CODE TESTS RESULT OUT OF REFERENCE UNITS RANGE LAB WWBC 3.70-11.00 k/uL [place] WBC 10.45 Result Comment: Result checked and verified No clot detected. LAB WRBC 4.20-6.00 m/uL [place] RBC 5.67 LAB WHGB 13.0-17.0 g/dL [place] Low Hemoglobin 11.2 LAB WHCT 39.0-51.0 % [place] Low Hematocrit 38.4 LAB WMCV 80.0-100.0 fL [place] MCV Low 67.7 LAB WMCH 26.0-34.0 pg [place]leen MCH Low 19.8 LAB WMCHC 30.5-36.0 g/dL [place] Low MCHC 29.2 Result Comment: Result rechecked. LAB WRDW 11.5-15.0 % [place] High RDW 21.5 LAB WPLT 150-400 k/uL [place] High Platelet Cnt 628 Result Comment: Result checked and verified NO CLOT LAB WMPV 9.0-12.7 fL [place] MPV 9.3 LAB ABGRAN 1.45-7.50 k/uL [place] High Gran Count 7.95 Performed By: #### WAGCBC #### [facility] [address] [id number] PULMONARY VISIT REPORT Observed: 12/10/2017 Status: F Source: [place] 8:41 AM [facility] [place] Pulmonary Medicine of [address] [place] [address] OFFICE VISIT Date of Service: 12/10/17 MR#: [id number] Acct: [id number] Name: SABINA FLORES Rep #: [id number] : 1940 Provider: Rosie Perea Age/Sex: 77/M [place] [facility] [place] Status: Signed Assessment AND Plan 1. Chronic obstructive pulmonary disease, unspecified COPD type J44.9 Plan Deteriorated. Shortness of breath has worsened, he does not appear to be an exacerbation of his COPD today. Will repeat pulmonary function test to determine if he is still on the appropriate inhalers. No change in maintenance medications until pulmonary function test can be interpreted. He has been encouraged to contact the office for any new or worsening symptoms, at which time we should be able to arrange an acute visit within 1-2 days. The patient and his convey understanding, they are agreeable to this plan. Follow-up with Dr. Dobbins in 3 Orders Orders: 2. Chronic respiratory failure with hypoxia J96.11 Plan Given that the shortness of breath has worsened I am going to evaluate him for possible hypoxia with ambulation, obtaining a simple pulmonary stress test. If oxygen is indicated, supplemental oxygen will be ordered. This was discussed with patient. He is agreeable. Follow-up with Dr. Dobbins in 3 months. Plan Detail Follow Up 3 Months (SAMI) HPI HPI Comments Details: This patient presents to the office today to follow-up on his stage III COPD and nocturnal hypoxia. He is ambulatory, currently on room air and accompanied today by his . He has not been seen in the ED urgent care for respiratory illnesses since his last office visit. He is not required any prednisone for any problems. He did just recently spent 6 days in the [facility] during which time they found a clot in his abdomen because of stretching of his esophagus per the patient's own words. The patient reports that since discharge from the hospital he continues to experience fatigue. Currently he has shortness of breath on exertion, which she reports may be worse since his last office visit. He denies any cough, sputum production or hemoptysis. He denies any wheezing, chest tightness, chest pain or palpitations. He is experiencing fever, chills or body aches. He is compliant with his Flovent daily. He rinses after each use and denies any medication side effects such as sore throat or thrush. He reports rare need for his rescue inhaler, which does relieve him of shortness of breath when used. He reports that his appetite has been good and he has been successful at quitting on approximately 10 pounds. See complete review of systems. He is compliant with 2 L of nasal cannula oxygen every night to sleep. Intake Vital Signs12/10/17 Height 5 ft 11 in 12/10/17 Weight: 124 lb Intake Visit Reasons: 6 M FU [facility] [place] V[place]: Beth Accompanied by: Allergies No Known Allergies Allergy (Verified 12/10/17 07:59) Medications Albuterol Inhaler [Ventolin Hfa] 2 puff INHALATION Q6H PRN PRN 01/02/14 [History Confirmed 12/10/17] Allopurinol [Zyloprim] 300 mg PO DAILY 09/23/17 [History Confirmed 12/10/17] Chlorhexidine Gluconate [Peridex] 15 ml MM DAILY 09/23/17 [History Confirmed 12/10/17] Cholecalciferol (Vitamin D3) [Vitamin D3] 1,000 unit PO DAILY 09/23/17 [History Confirmed 12/10/17] Fluticasone 110 Mcg [Flovent 110 Mcg] 1 puff INHALATION BID 09/23/17 [History Confirmed 12/10/17] Hydroxyurea [Hydrea] 1 cap PO DAILY 09/23/17 [History Confirmed 12/10/17] Mupirocin [Bactroban] 0.5 g NARES BID 09/23/17 [History Confirmed 12/10/17] Diltiazem CD [Cardizem CD] 120 mg PO BID #60 cap 09/27/17 [Rx Confirmed 12/10/17] Famotidine [Pepcid] 20 mg PO BID #60 tab 09/27/17 [Rx Confirmed 12/10/17] Ondansetron [Zofran Odt] 4 mg PO Q6H PRN PRN #14 tab.rapdis 09/27/17 [Rx Confirmed 12/10/17] Oxycodone HCl/Acetaminophen [Percocet 5/325] 1 tab PO Q4H PRN PRN 7 Days #30 tab 09/27/17 [Rx Confirmed 12/10/17] Anagrelide HCl [Agrylin] 0.5 mg PO BID 11/29/17 [History Confirmed 12/10/17] warfarin 2.5 mg tablet 2.5 mg PO QDAY 12/10/17 [History Confirmed 12/10/17] PFSH Medical History COPD (chronic obstructive pulmonary disease) (Chronic) Atypical chest pain (Chronic) History of peptic ulcer disease (Chronic) Adenomatous colon polyp (Acute) Hypoxemia (Acute) Malignant neoplasm of larynx (Acute) Polycythemia (Acute) Protein calorie malnutrition (Acute) Thrombocytosis (Acute) Chronic back pain (Chronic) Iron deficiency anemia (Chronic) Stage 2 moderate COPD by GOLD classification (Chronic) Tobacco use (Chronic) Elevated LFTs (Resolved) Pneumonia (Resolved) Tongue cancer (Inactive) Surgical History Esophageal dilatation (Resolved) Floor of mouth resection, sialadochoplasty (Resolved) H/O colonoscopy (Resolved) History of esophagogastroduodenoscopy (EGD) (Resolved) History of laryngoscopy (Resolved) S/P partial gastrectomy (Resolved) Family History Brother Brain cancer Bone cancer Brain tumor Father CAD (coronary artery disease) Heart disease Social History household members: spouse pets and animals: Yes Smoking Status: Former smoker quit date: 04/30/13 pack-years: 116 how long ago did patient quit smokin second hand exposure: Yes alcohol intake: current alcohol intake frequency: 0-2 drinks per day Alcohol type: beer substance use type: does not use caffeine: Yes what type of physical activity do you participate in: none Review of Systems Const CONSTITUTIONAL: Positive fatigue; negative anorexia, body ache, chills, daytime sleepiness, fever(s), night sweats, oral thrush, stops breathing during sleep, weight loss, sleeping in chair, weight loss, weight gain, frequent colds, seasonal allergies, other, headache(s) or orthopnea EETM Ear Nose Throat Mouth: Positive hearing normal; negative hard of hearing, hoarseness, dry mouth in morning, change in vision, itchy eyes, eye pain, swallowing Difficulty, ear pain, nose bleed, headache(s), mouth pain, nasal congestion, nasal discharge, post nasal drip, sinus pain, sinus pressure, sore throat or other Cardio Cardiovascular: Negative chest pain, chest pain at rest, chest pain with activity, irregular heart rhythm, edema, shortness of breath when lying down, palpitations, murmur or other Resp Respiratory: Positive as per HPI and shortness of breath shortness of breath: Positive with activity and worsening; negative pain with cough, wheezing, chest congestion, cough, chest tightness, pain on inspiration, inhalers, increase use of rescue inhalers, snoring, apnea or other Gastro Gastrointestional: Negative bloody stools, change in appetite, difficulty swallowing, reflux, hematemesis, melena stool, loose stool, constipation or other Genitourinary: Negative blood in urine, nocturia, pain with urination or other Musc Musculoskeletal: Negative body pain, back pain, neck pain or other (abd) Skin/Breast Skin/Breast: Negative dry skin, itching, rash, unusual bruising, breast lump or other Neuro Neurological: Negative restless legs, confusion, weakness or other Psych Psychocological: Negative abnormal sleep pattern, anxiety, thoughts of hurting self/others, hopelessness or other Lymph Lymphatic: Negative easy bleeding, easy bruising, swollen lymph nodes or other Exam Const Constitutional: Positive conversant, cooperative, in no acute respiratory distress, frail appearing and thin Head Head: Positive normocephalic and atraumatic; negative cyanosis of lips/distal nose Eyes Eye: Positive clear conjunctiva; negative nystagmus or scleral abnormality Ears Ear: Positive hearing normal and external ears normal; negative hard of hearing Nose Nose: Positive external nose normal and no nasal discharge; negative epistaxis Mouth Mouth: Positive oral mucosae normal, no lesions, posterior oropharynx is adequate and dentures; negative post nasal drip, oral thrush present or malodorous breath Mallampati Score: I: Mallampati Score Neck Neck: Positive normal visual inspection, full ROM and trachea midline; negative lymphadenopathy, JVD or tender Chest Wall Chest: Positive symmetric chest movement and increased A/P diameter Resp lung sounds: Positive clear to auscultation, diminished, normal respiratory effort and prolonged expiratory time; negative wheezes, rhonchi, rales, dullness to percussion or wheeze present on forced exhalation Cardio Cardiac: Positive regular rate, S2 normal, S1 normal and regular rhythm; negative murmur GI GI: Positive normal to inspection and normal bowel sounds; negative distended Genitourinary: Positive deferred Musc Musculoskeletal: Positive steady gait and ROM normal; negative kyphosis or scoliosis Skin Pulmonary Skin Exam: Positive intact; negative rash, lesion, ulcers or erythema Pulses Pulse: Yes pulses normal x4 extremities Extremities Extremities: Yes capillary refill normal, Yes clubbing, No cyanosis, No edema, Yes stasis dermatitis Neuro Neurologic: Yes conversant, Yes no focal neuro deficits, Yes normal concentration, Yes understands questions, Yes cooperative, Yes normal cognition, Yes normal coordination Lymph Lymphatic: No lymphadenopathy, No tenderness, No cervical adenopathy, No axillary adenopathy Psych Appearance: Positive grossly normal, eye contact and well kempt Mental Status: Positive mental status grossly normal Mood: Positive congruent mood Affect: Positive normal affect Coding Level of Care Code Off vis,est,level 4 Diagnoses Chronic obstructive pulmonary disease, unspecified COPD type J44.9 COPD type: unspecified COPD Chronic respiratory failure with hypoxia J96.11 12/10/17 0841 <Electronically signed by Rosie ZULUAGA> Date Rosie ZULUAGA Cosigner Signature: Date (if applicable) CC: Varun Wang MD PROGRESS Observed: 12/07/2017 Status: COMPLETED Source: [place] 3:43 PM [facility] REPOSITORY HNO ID: [id number] Author: Fidelia Parsons RN Service: (none) Author Type: (none) Type: Progress Notes Filed: 12/07/2017 3:43 PM Note Text: per written order by dr machado she agrees with information below PROGRESS Observed: 12/07/2017 Status: COMPLETED Source: [place] 12:33 PM [facility] REPOSITORY HNO ID: [id number] Author: Fidelia Parsons RN Service: (none) Author Type: (none) Type: Progress Notes Filed: 12/07/2017 12:34 PM Note Text: patient had inr completed at [facility] patients inr is 1.9 (patients inr range is 2.0-3.0) patient is currently taking 2.5mg daily patients last dose change unsure as this is the patients first visit to the patient has had no changes in medication and no missed doses and no change in diet Advised patient to continue on the same dose(s) and that they would only be contacted regarding dosage and follow up instructions after review with provider, if a change is needed. Written instructions given and patient verbalized understanding. Presently scheduled in 1 week (12/13/17) for follow up INR. CNOV Observed: 12/07/2017 Status: COMPLETED Source: [place] 10:20 AM [facility] REPOSITORY Office Visit (INTMWS) SABINA FLORES ([id number]) 1940 M Date Time Provider Department 12/07/17 10:20 AM MARTA VILLASENOR (PAIGE) INTMWS During your visit today, we recorded the following information about you: Temperature Pulse Respiration Blood pressure 97.9 degrees 88/minute 18/minute 128/79 Weight 57.2 kg Marta Villasenor APRN.CNP 12/07/2017 11:48 AM Signed CC: Patient presents with: [facility] Hospital Follow Up HPI Sabina Flores is a 77 year old male who presents today for hospital follow-up/TCM. Facility: [facility] Date of visit: 11/29/17 to 12/05/17 Reason for visit: transferred from [facility] for abdominal pain secondary to superior mesenteric venous thrombosis and retroperitoneal lymphadenopathy Hospital course: Treated with IV Heparin and antibiotics. 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 Discharge: Started on Coumadin 2.5 mg daily. INR on discharge was 2.2, needs rechecked today. No other medications changes were made. Appointments scheduled with vascular medicine, gastroenterology. Current symptoms: Today patient reports he is feeling much better. A little weak still but this is improving. Occasional sharp left sided abdominal pain but resolves quickly and also improving. Denies constant abdominal pain, nausea, vomiting, diarrhea, constipation. Appetite is good and eating well. Taking Coumadin as directed without any unusual bleeding including black/bloody stools or hematuria. REVIEW OF SYSTEMS General: no fevers, no chills and no night sweats Respiratory: no cough, no wheezing, no shortness of breath, no hemoptysis Cardiovascular: no chest pain, no chest pressure, no palpitations and no swelling : Negative for dysuria, frequency and urgency PAST MEDICAL HISTORY Diagnosis Date - ABNORMAL LIVER FUNCTION STUDY 01/11/2005 Alkaline phosphatemia - Body mass index (BMI) less than or equal to 19 in adult 03/28/2017 - COPD (chronic obstructive pulmonary disease) (HCC) 01/13/2013 - DIVERTICULOSIS OF COLON W/O BLEED 01/11/2005 - Dysphagia 09/18/2017 - 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 Assessment: Mesenteric venous thrombosis versus PUD versus pancreatitis versus esophageal perforation LUQ/midepigastric burning abdominal pain CT imaging showed superior mesenteric venous thrombosis Hx of pancreatitis, lipase 116 (11/29/17) Recent esophageal dilatation Plan: Consult vascular medicine, hematology Start heparin nomogram Start cipro/flagyl Continue famotidine Pain management - tylenol (mild), tramadol (moderate) Zofran prn nausea LR IVF Diet NPO KUB AM Lactate AM - Tobacco use disorder 01/11/2005 - Unspecified asthma(493.90) 03/03/2011 pt not aware PAST SURGICAL HISTORY Procedure Laterality Date - COLONOSCOP W/ OR W/O [facility] SPEC 2003 Colonoscopy - COLONOSCOP W/ OR W/O [facility] SPEC 02/20/2013 Colonoscopy - COLONOSCOP W/ OR W/O BRS SPEC 03/30/16 Colonoscopy - EGD BIOPSY SINGLE/MULTIPLE 09/21/2017 - EGD W/O OR W/BRUSH/WASH 2003 EGD - EGD W/O OR W/BRUSH/WASH 02/20/13 EGD - ESOPH W/O [facility] SPEC BALLOON DIL 12-1-2003 Esophageal dilatation - LARYNGOSCOPY W/ BIOPSY 02/06/2014 - PARTIAL GASTRECTOMY 1970 bleeding ulcer - PAST SURGICAL HISTORY OF Left 08/29/2016 Floor of mouth resection, sialadochoplasty ALLERGIES Patient has no known allergies. MEDICATIONS warfarin (COUMADIN) 2.5 mg tablet Take 1 tablet by mouth daily as directed. hydroxyurea (HYDREA) 100 mg/mL oral liquid Take 5 mL by mouth once daily. aspirin 81 mg chewable tablet Take 1 tablet by mouth once daily. albuterol HFA (VENTOLIN HFA) 90 mcg/actuation inhaler Inhale 2 Puffs as instructed every 6 hours as needed for Wheezing/Shortness of Breath. ondansetron (ZOFRAN) 4 mg tablet Take 1 tablet by mouth every 6 hours as needed. mupirocin (BACTROBAN) 2 % ointment Apply 1 application to affected area twice daily. diltiazem CD (CARDIZEM CD) 120 mg 24 hr capsule Take 120 mg by mouth twice daily. famotidine (PEPCID) 20 mg tablet Take 20 mg by mouth twice daily. oxyCODONE-acetaminophen (PERCOCET) 5-325 mg tablet Take 1 tablet by mouth every 4 hours as needed. Cholecalciferol, Vitamin D3, (VITAMIN D-3) 1,000 unit chew Take 1 tablet by mouth once daily. Vit A-Vit K-Utvj-Pvuilkfe (ZINC, WITH A AND C, LOZENGES) lozg Take 1 tablet by mouth once daily. Let dissolve in mouth. Chlorhexidine Gluconate (PERIDEX) 0.12 % solution Take 15 mL by mouth once daily. Swish for 30 seconds and then spit out. tiotropium-olodaterol (STIOLTO RESPIMAT) 2.5-2.5 mcg/actuation mist Inhale 2 Puffs as instructed once daily. fluticasone (FLOVENT) 110 mcg/actuation inhaler Inhale 1 Puff as instructed twice daily. allopurinol (ZYLOPRIM) 300 mg tablet Take 1 tablet by mouth once daily. This can be crushed. FAMILY HISTORY Problem Relation Age of Onset - Cancer Brother lung cancer - Cancer Brother bone cancer - Cancer Brother brain tumor or cancer - Coronary Artery Disease Father age 64, [place] - None Mother age 95 Social History Substance Use Topics - Smoking status: Former Smoker Packs/day: 2.00 Years: 52.00 Types: Cigarettes Quit date: 09/01/2013 - Smokeless tobacco: Never Used - Alcohol use 6.0 oz/week 4 Cans of Beer (12oz) per week PHYSICAL EXAM BP 128/79 Pulse 88 Temp 36.6 ?C (97.9 ?F) (Temporal Artery) Resp 18 Wt 57.2 kg (126 lb) SpO2 90% BMI 17.57 kg/m? General Appearance: well appearing, in no acute distress, alert, thin Pysch: mood and affect broad and appropriate Skin: Skin color, texture, turgor normal for age; Eyes: conjunctiva pink and moist, no icterus, sclera white, non-injected Oropharynx: moist Lungs: Lungs clear to auscultation. No wheezing, rhonchi, rales Heart: RRR without murmur, gallop, or rubs. No ectopy Abdomen: Abdomen soft, non-tender. Bowel sounds normal. No bruits. No masses, organomegaly Ext: no edema in LE bilaterally, good distal pulses Component Latest Ref Rng AND Units 12/05/2017 WBC 3.70 - 11.00 k/uL 11.50 (H) RBC 4.20 - 6.00 m/uL 5.55 Hemoglobin 13.0 - 17.0 g/dL 10.7 (L) Hematocrit 39.0 - 51.0 % 38.0 (L) MCV 80.0 - 100.0 fL 68.5 (L) MCH 26.0 - 34.0 pG 19.3 (L) MCHC 30.5 - 36.0 g/dL 28.2 (L) RDW-CV 11.5 - 15.0 % 20.2 (H) Platelet Count 150 - 400 k/uL 780 (H) MPV 9.0 - 12.7 fL 9.4 Absolute nRBC <0.01 k/uL <0.01 Glucose 74 - 99 mg/dL 87 BUN 9 - 24 mg/dL 7 (L) Creatinine 0.73 - 1.22 mg/dL 0.92 Sodium 136 - 144 mmol/L 143 Potassium 3.7 - 5.1 mmol/L 3.4 (L) Chloride 97 - 105 mmol/L 109 (H) CO2 22 - 30 mmol/L 22 Anion Gap 9 - 18 mmol/L 12 Calcium 8.5 - 10.2 mg/dL 8.6 eGFR- >60 eGFR-All Other Races . >60 PT Sec 8.4 - 13.0 sec 21.4 (H) PT INR 0.9 - 1.3 2.2 (H) APTT 23.0 - 32.4 sec 127.4 (H) ASSESSMENT/PLAN: 1. Superior mesenteric vein thrombosis - ICD9: 557.0, ICD10: I81 Symptoms resolved, patient doing well. No alarm symptoms or exam findings today Continue with Coumadin, INR today Labs reviewed, no repeat labs needed today Follow-up with specialists as scheduled or sooner as needed Prescription instructions reviewed with patient as applicable. Potential red flag symptoms discussed with the patient. Reviewed appropriate action plan to take if red flag symptoms occur. Patient agreeable to treatment plan. Marta Villasenor APRN.[employer] MACHINE OPERATOR Referring Provider: ALENA CARRANZA [[id number]] Allergies As of Date: 12/07/2017 (No Known Allergies) Date Reviewed: 12/07/2017 Reviewed by: Jenny Schwartz Sales Representative [employer] - Fully Assessed Reason for Visit: [facility] Follow Up [Other] Reason For Visit History Recorded Primary Visit Diagnosis:Superior mesenteric vein thrombosis [I81] Prescriptions as of 12/07/2017 Sig: WARFARIN 2.5 MG TABLET Take 1 tablet by mouth daily * HYDROXYUREA 100 MG/ML ORAL LI* Take 5 mL by mouth once daily. ASPIRIN 81 MG CHEWABLE TABLET Take 1 tablet by mouth once d* ALBUTEROL SULFATE HFA 90 MCG/* Inhale 2 Puffs as instructed * ONDANSETRON HCL 4 MG TABLET Take 1 tablet by mouth every * MUPIROCIN 2 % TOPICAL OINTMENT Apply 1 application to affect* DILTIAZEM SR 120 MG 24 HR CAP Take 120 mg by mouth twice da* FAMOTIDINE 20 MG TABLET Take 20 mg by mouth twice kerline* OXYCODONE-ACETAMINOPHEN 5 MG-* Take 1 tablet by mouth every * CHOLECALCIFEROL (VITAMIN D3) * Take 1 tablet by mouth once d* VIT A-VIT A-SLBY-WHNIIXUR MAT* Take 1 tablet by mouth once d* CHLORHEXIDINE GLUCONATE 0.12 * Take 15 mL by mouth once cristiana* TIOTROPIUM 2.5 MCG-OLODATEROL* Inhale 2 Puffs as instructed * FLUTICASONE 110 MCG/ACTUATION* Inhale 1 Puff as instructed t* ALLOPURINOL 300 MG TABLET Take 1 tablet by mouth once d* Problem List As Of Date 12/07/2017 Noted Resolved Iron deficiency anemia [D50.9] INVALID FOR* Priority: Severe Peptic ulcer, unspecified site, unspecified as *INVALID FOR*10/30/2011 Esophageal stricture [K22.2] INVALID FOR* Priority: Moderate Diverticulosis of large intestine without hemor*INVALID FOR* Nonspecific abnormal results of liver function *INVALID FOR*03/31/2011 More... Personal history of alcoholism [F10.21] INVALID FOR*02/12/2014 Tobacco use disorder [F17.200] INVALID FOR*02/21/2016 Interstitial lung disease (HCC) [J84.9] INVALID FOR* Lung nodule [R91.1] INVALID FOR*04/14/2013 More... Asthma [J45.909] INVALID FOR* COPD (chronic obstructive pulmonary disease) (H*INVALID FOR* Priority: C More... 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 Thrombocytosis (HCC) [D47.3] INVALID FOR* Priority: Severe Elevated protime [R79.1] INVALID FOR* Elevated bilirubin [R17] INVALID FOR* Shortness of breath [R06.02] INVALID FOR*09/22/2017 Priority: A More... Body mass index (BMI) less than or equal to 19 *INVALID FOR* Malignant neoplasm of larynx (HCC) [C32.9] INVALID FOR* More... 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 Vitamin D deficiency [E55.9] INVALID FOR* More... Hypoalbuminemia [E88.09] INVALID FOR* Prolonged INR [R79.1] INVALID FOR*09/22/2017 More... 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 Myeloproliferative disorder (HCC) [D47.1] INVALID FOR* Priority: B More... Essential hypertension [I10] INVALID FOR* Priority: D More... Encounter Status:Closed by MARTA VILLASENOR CNP on 12/07/17 PROGRESS Observed: 12/07/2017 Status: COMPLETED Source: [place] 10:19 AM [facility] REPOSITORY O ID: [id number] Author: Marta Escalante) [place] Service: (none) Author Type: Nurse Practitioner Type: Progress Notes Filed: 12/07/2017 11:48 AM Note Text: CC: Patient presents with: [facility] Hospital Follow Up HPI Sabina Flores is a 77 year old male who presents today for hospital follow-up/TCM. Facility: [facility] Date of visit: 11/29/17 to 12/05/17 Reason for visit: transferred from [facility] for abdominal pain secondary to superior mesenteric venous thrombosis and retroperitoneal lymphadenopathy Hospital course: Treated with IV Heparin and antibiotics. 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 Discharge: Started on Coumadin 2.5 mg daily. INR on discharge was 2.2, needs rechecked today. No other medications changes were made. Appointments scheduled with vascular medicine, gastroenterology. Current symptoms: Today patient reports he is feeling much better. A little weak still but this is improving. Occasional sharp left sided abdominal pain but resolves quickly and also improving. Denies constant abdominal pain, nausea, vomiting, diarrhea, constipation. Appetite is good and eating well. Taking Coumadin as directed without any unusual bleeding including black/bloody stools or hematuria. REVIEW OF SYSTEMS General: no fevers, no chills and no night sweats Respiratory: no cough, no wheezing, no shortness of breath, no hemoptysis Cardiovascular: no chest pain, no chest pressure, no palpitations and no swelling : Negative for dysuria, frequency and urgency PAST MEDICAL HISTORY Diagnosis Date - ABNORMAL LIVER FUNCTION STUDY 01/11/2005 Alkaline phosphatemia - Body mass index (BMI) less than or equal to 19 in adult 03/28/2017 - COPD (chronic obstructive pulmonary disease) (HCC) 01/13/2013 - DIVERTICULOSIS OF COLON W/O BLEED 01/11/2005 - Dysphagia 09/18/2017 - 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 Assessment: Mesenteric venous thrombosis versus PUD versus pancreatitis versus esophageal perforation LUQ/midepigastric burning abdominal pain CT imaging showed superior mesenteric venous thrombosis Hx of pancreatitis, lipase 116 (11/29/17) Recent esophageal dilatation Plan: Consult vascular medicine, hematology Start heparin nomogram Start cipro/flagyl Continue famotidine Pain management - tylenol (mild), tramadol (moderate) Zofran prn nausea LR IVF Diet NPO KUB AM Lactate AM - Tobacco use disorder 01/11/2005 - Unspecified asthma(493.90) 03/03/2011 pt not aware PAST SURGICAL HISTORY Procedure Laterality Date - COLONOSCOP W/ OR W/O [facility] SPEC 2003 Colonoscopy - COLONOSCOP W/ OR W/O BRS SPEC 02/20/2013 Colonoscopy - COLONOSCOP W/ OR W/O BRS SPEC 03/30/16 Colonoscopy - EGD BIOPSY SINGLE/MULTIPLE 09/21/2017 - EGD W/O OR W/BRUSH/WASH 2003 EGD - EGD W/O OR W/BRUSH/WASH 02/20/13 EGD - ESOPH W/O BRS SPEC BALLOON DIL 03-30-2004 Esophageal dilatation - LARYNGOSCOPY W/ BIOPSY 02/06/2014 - PARTIAL GASTRECTOMY 1970 bleeding ulcer - PAST SURGICAL HISTORY OF Left 08/29/2016 Floor of mouth resection, sialadochoplasty ALLERGIES Patient has no known allergies. MEDICATIONS warfarin (COUMADIN) 2.5 mg tablet Take 1 tablet by mouth daily as directed. hydroxyurea (HYDREA) 100 mg/mL oral liquid Take 5 mL by mouth once daily. aspirin 81 mg chewable tablet Take 1 tablet by mouth once daily. albuterol HFA (VENTOLIN HFA) 90 mcg/actuation inhaler Inhale 2 Puffs as instructed every 6 hours as needed for Wheezing/Shortness of Breath. ondansetron (ZOFRAN) 4 mg tablet Take 1 tablet by mouth every 6 hours as needed. mupirocin (BACTROBAN) 2 % ointment Apply 1 application to affected area twice daily. diltiazem CD (CARDIZEM CD) 120 mg 24 hr capsule Take 120 mg by mouth twice daily. famotidine (PEPCID) 20 mg tablet Take 20 mg by mouth twice daily. oxyCODONE-acetaminophen (PERCOCET) 5-325 mg tablet Take 1 tablet by mouth every 4 hours as needed. Cholecalciferol, Vitamin D3, (VITAMIN D-3) 1,000 unit chew Take 1 tablet by mouth once daily. Vit A-Vit K-Nzgs-Abblekss (ZINC, WITH A AND C, LOZENGES) lozg Take 1 tablet by mouth once daily. Let dissolve in mouth. Chlorhexidine Gluconate (PERIDEX) 0.12 % solution Take 15 mL by mouth once daily. Swish for 30 seconds and then spit out. tiotropium-olodaterol (STIOLTO RESPIMAT) 2.5-2.5 mcg/actuation mist Inhale 2 Puffs as instructed once daily. fluticasone (FLOVENT) 110 mcg/actuation inhaler Inhale 1 Puff as instructed twice daily. allopurinol (ZYLOPRIM) 300 mg tablet Take 1 tablet by mouth once daily. This can be crushed. FAMILY HISTORY Problem Relation Age of Onset - Cancer Brother lung cancer - Cancer Brother bone cancer - Cancer Brother brain tumor or cancer - Coronary Artery Disease Father age 64, [place] - None Mother age 95 Social History Substance Use Topics - Smoking status: Former Smoker Packs/day: 2.00 Years: 52.00 Types: Cigarettes Quit date: 09/01/2013 - Smokeless tobacco: Never Used - Alcohol use 6.0 oz/week 4 Cans of Beer (12oz) per week PHYSICAL EXAM BP 128/79 Pulse 88 Temp 36.6 ?C (97.9 ?F) (Temporal Artery) Resp 18 Wt 57.2 kg (126 lb) SpO2 90% BMI 17.57 kg/m? General Appearance: well appearing, in no acute distress, alert, thin Pysch: mood and affect broad and appropriate Skin: Skin color, texture, turgor normal for age; Eyes: conjunctiva pink and moist, no icterus, sclera white, non-injected Oropharynx: moist Lungs: Lungs clear to auscultation. No wheezing, rhonchi, rales Heart: RRR without murmur, gallop, or rubs. No ectopy Abdomen: Abdomen soft, non-tender. Bowel sounds normal. No bruits. No masses, organomegaly Ext: no edema in LE bilaterally, good distal pulses Component Latest Ref Rng AND Units 12/05/2017 WBC 3.70 - 11.00 k/uL 11.50 (H) RBC 4.20 - 6.00 m/uL 5.55 Hemoglobin 13.0 - 17.0 g/dL 10.7 (L) Hematocrit 39.0 - 51.0 % 38.0 (L) MCV 80.0 - 100.0 fL 68.5 (L) MCH 26.0 - 34.0 pG 19.3 (L) MCHC 30.5 - 36.0 g/dL 28.2 (L) RDW-CV 11.5 - 15.0 % 20.2 (H) Platelet Count 150 - 400 k/uL 780 (H) MPV 9.0 - 12.7 fL 9.4 Absolute nRBC <0.01 k/uL <0.01 Glucose 74 - 99 mg/dL 87 BUN 9 - 24 mg/dL 7 (L) Creatinine 0.73 - 1.22 mg/dL 0.92 Sodium 136 - 144 mmol/L 143 Potassium 3.7 - 5.1 mmol/L 3.4 (L) Chloride 97 - 105 mmol/L 109 (H) CO2 22 - 30 mmol/L 22 Anion Gap 9 - 18 mmol/L 12 Calcium 8.5 - 10.2 mg/dL 8.6 eGFR- >60 eGFR-All Other Races . >60 PT Sec 8.4 - 13.0 sec 21.4 (H) PT INR 0.9 - 1.3 2.2 (H) APTT 23.0 - 32.4 sec 127.4 (H) ASSESSMENT/PLAN: 1. Superior mesenteric vein thrombosis - ICD9: 557.0, ICD10: I81 Symptoms resolved, patient doing well. No alarm symptoms or exam findings today Continue with Coumadin, INR today Labs reviewed, no repeat labs needed today Follow-up with specialists as scheduled or sooner as needed Prescription instructions reviewed with patient as applicable. Potential red flag symptoms discussed with the patient. Reviewed appropriate action plan to take if red flag symptoms occur. Patient agreeable to treatment plan. Marta Villasenor APRN.RIP AND GROOVE MACHINE OPERATOR CNDS Observed: 12/05/2017 Status: COMPLETED Source: [place] 1:49 PM [facility] REPOSITORY O ID: [id number] Author: Kenney Tate MD Service: General Internal Medicine Author Type: Resident Type: Discharge Summaries Filed: 12/07/2017 7:40 PM Note Text: Attestation signed by Alena Carranza MD at 12/25/2017 12:08 PM [facility] STAFF PHYSICIAN NOTE OF PERSONAL INVOLVEMENT IN CARE I have reviewed the discharge summary obtained and documented by the resident and I personally participated in the perry components. I have discussed the case and management of the patient's care. Alena Carranza MD December 25, 2017 12:08 PM [id number] DISCHARGE SUMMARY PATIENT NAME: Sabina Flores ADMISSION DATE: 11/29/2017 DISCHARGE DATE: 12/05/2017 ATTENDING PHYSICIAN: Lizeth att. providers found REASON FOR HOSPITALIZATION: SMV Thrombosis DIAGNOSIS: SMV Thrombosis OPERATIONS DURING HOSPITALIZATION: None PROCEDURES DURING HOSPITALIZATION: No procedures performed HOSPITAL COURSE: Sabina Flores is a 77 year old male who presents with abdominal pain from [facility]. Patient had a 2cm esophageal dilation on 11/27/17 at [facility] due to dysphagia 2/2 neck radiation of past laryngeal cancer. Patient endorsed LUQ burning pain starting yesterday in the evening two hours post-prandial. Patient had associated nausea/vomiting. Patient tried oxycodone for pain with minimal relief. Denies fever, CP, hematemesis, diarrhea. Patient had a previous episode of pancreatitis in April and drinks alcohol (last beer that night)/previous smoker (quit 4 years ago). Pain continued overnight and he was admitted to OSH in the morning. At OSH, labs showed WBC 25.2, Hgb 12.4, Plt 1034, Lactic Acid 1.2, Lipase 116, and CT Abd/Pelv w/ contrast showed superior mesenteric venous thrombosis, retroperitoneal lymphadenopathy. Patient was transferred to [facility] for continued medical management. ?? #SMV Thrombosis Pt was started on a heparin drip with bridging to coumadin. Coumadin dosing was initially 5 mg daily and was then lowered to 2.5 mg daily due to quick rising of the INR. The abdominal pain resolved and patient was able to tolerate a full diet. He did not have any issues with swallowing either. When the INR reached 2.0, the heparin drip was stopped. The INR reached 2.2 on the day of discharge. Pt was discharged on coumadin 2.5 mg daily and will follow up with the coumadin clinic at [facility] for coumadin dosing. #MPS Anagrelide was held during the hospital stay and at discharge due to concern for hypercoagulability and the patient's current SMV thrombosis. Hydroxyurea was switched to liquid form as patient was unable to swallow the pill. Patient will follow up with his oncologist after discharge. #JULIANA Pt had a slight increase in his Cr from baseline of 0.7 to 1.3. This was likely prerenal in the setting of low PO intake. Urine was also dark in color. U/A was bland. IVFs were started with subsequent improvement in the kidney function. LABS AND PROCEDURES PENDING AT DISCHARGE: No pending results. CONSULTING TEAMS DURING HOSPITALIZATION: Oncology Vascular Medicine PATIENT CONDITION AT DISCHARGE: Stable DISCHARGE DISPOSITION: Home/Self Care PHYSICAL EXAM: GENERAL: Well appearing, alert, in no acute distress LUNGS: Lungs clear to auscultation. HEART: RRR without murmur, gallop, or rubs. No ectopy ABDOMEN: Soft abdomen, positive bowel sounds. Nontender to palpation. EXTREMITIES: No deformities, edema, skin discoloration NEURO: AAOx3, no gross motor deficits DISCHARGE MEDICATION: Discharge Medication List as of 12/05/2017 1:29 PM START taking these medications warfarin (COUMADIN) 2.5 mg tablet Take 1 tablet by mouth daily as directed. Normal, Disp-14 tablet, R-0, Long-term hydroxyurea (HYDREA) 100 mg/mL oral liquid Take 5 mL by mouth once daily. Print RX, Disp-100 mL, R-0 aspirin 81 mg chewable tablet Take 1 tablet by mouth once daily. Normal, Disp-60 tablet, R-3, Long-term CONTINUE these medications which have NOT CHANGED albuterol HFA (VENTOLIN HFA) 90 mcg/actuation inhaler Inhale 2 Puffs as instructed every 6 hours as needed for Wheezing/Shortness of Breath. Normal, Disp-1 Inhaler, R-6, Long-term Dx: 1. Pulmonary emphysema, unspecified emphysema type (HCC) ondansetron (ZOFRAN) 4 mg tablet Take 1 tablet by mouth every 6 hours as needed. Normal, Disp-60 tablet, R-2, Long-term Dx: 1. Esophageal stricture mupirocin (BACTROBAN) 2 % ointment Apply 1 application to affected area twice daily. Historical Med diltiazem CD (CARDIZEM CD) 120 mg 24 hr capsule Take 120 mg by mouth twice daily. Historical Med, Long-term Dx: 1. Elevated blood pressure reading famotidine (PEPCID) 20 mg tablet Take 20 mg by mouth twice daily. Historical Med Dx: 1. History of peptic ulcer oxyCODONE-acetaminophen (PERCOCET) 5-325 mg tablet Take 1 tablet by mouth every 4 hours as needed. Historical Med Dx: 1. Esophageal stricture Cholecalciferol, Vitamin D3, (VITAMIN D-3) 1,000 unit chew Take 1 tablet by mouth once daily. Print RX, Disp-30 tablet, R-3, Long-term Vit A-Vit H-Vrhz-Afshdlwe (ZINC, WITH A AND C, LOZENGES) lozg Take 1 tablet by mouth once daily. Let dissolve in mouth. Print RX, Disp-30 Lozenge, R-1, Long-term Chlorhexidine Gluconate (PERIDEX) 0.12 % solution Take 15 mL by mouth once daily. Swish for 30 seconds and then spit out. Print RX, Disp-30 mL, R-1 tiotropium-olodaterol (STIOLTO RESPIMAT) 2.5-2.5 mcg/actuation mist Inhale 2 Puffs as instructed once daily. Med Update, Long-term fluticasone (FLOVENT) 110 mcg/actuation inhaler Inhale 1 Puff as instructed twice daily. Print RX, Disp-1 Inhaler, R-1 allopurinol (ZYLOPRIM) 300 mg tablet Take 1 tablet by mouth once daily. This can be crushed. Print RX, Disp-30 tablet, R-1 STOP taking these medications anagrelide (AGRYLIN) 0.5 mg capsule Comments: Reason for Stopping: hydroxyurea (HYDREA) 500 mg capsule Comments: Reason for Stopping: FUTURE APPOINTMENTS: Future Appointments Date Time Provider Department Center 12/13/2017 10:00 AM LAB [facility] WS MOB LABMOB [facility] [place] 12/13/2017 10:10 AM Maura Aguillon HEMAWS [facility] [place] 12/13/2017 11:[address] [facility] COUMWS [facility] [place] 01/01/2018 10:30 AM INTERVIEW J1-1 CCHMN [facility]cil 01/01/2018 11:45 AM Neva Singer GASTPR [facility]IT AANDM Bl 01/07/2018 10:15 AM Ericad Tanmay BOWER J/S Bld 03/25/2018 8:45 AM Brooke (Shaper And Presser) Paulino MATIHS TIME OF CARE (Use first blank if not applicable): TIME OF CARE: Discharge Management: I personally spent greater than 30 minutes involved in the discharge management of this patient. SIGNATURE: Kenney Tate MD PATIENT NAME: Sabina Flores DATE: December 07, 2017 TIME: 7:28 PM PAGER/CONTACT #: [phone] CASE MANAGEM Observed: 12/05/2017 Status: COMPLETED Source: [facility] 1:38 PM [facility] REPOSITORY HNO ID: [id number] Author: Miriam Murrieta Service: Care Management Author Type: (none) Type: Care Mgt Progress Note Filed: 12/05/2017 1:38 PM Note Text: CARE MANAGEMENT PROGRESS NOTE SERVICE DATE: 12/05/2017 SERVICE TIME: 1:32 PM LOS: 6 days IM letter given to patient on 12/05/17. SIGNATURE: Miriam Murrieta Professional Development Instructor PATIENT NAME: Sabina Flores DATE: December 05, 2017 TIME: 1:38 PM PAGER/CONTACT #: [phone] NURSING PROG Observed: 12/05/2017 Status: COMPLETED Source: [place] 1:31 PM [facility] REPOSITORY HNO ID: [id number] Author: Isabella Dawson RN Service: Nursing Author Type: Registered Nurse Type: Nursing Progress Note Filed: 12/05/2017 1:33 PM Note Text: Nursing Progress Note Patient Name: Sabina Flores Patient Location: [place] [id number] Daily Note: This nurse reviewed discharge instructions, discharge medications and follow up appointments. Peripheral iv removed. Safety maintained. This note was completed by: Isabella Dawson RN CASE MANAGEM Observed: 12/05/2017 Status: COMPLETED Source: [place] 12:16 PM [facility] REPOSITORY HNO ID: [id number] Author: Lucía Parks RN Service: Care Management Author Type: Registered Nurse Type: Care Mgt Progress Note Filed: 12/05/2017 12:17 PM Note Text: CARE MANAGEMENT PROGRESS NOTE SERVICE DATE: 12/05/2017 SERVICE TIME: 12:16 PM LOS: 6 days Needs Prior to Discharge: Ready for Discharge Per jolene MARQUEZ home today, no skilled needs. SIGNATURE: Lucía Parks RN PATIENT NAME: Sabina Flores DATE: December 05, 2017 TIME: 12:16 PM PAGER/CONTACT #: [phone] CBC Collected: 12/05/2017 Status: F Source: [facility] 3:55 AM [facility] REPOSITORY TYPE CODE TESTS RESULT OUT OF REFERENCE UNITS RANGE LAB WBC 3.70-11.00 k/uL WBC High 11.50 LAB RBC 4.20-6.00 m/uL RBC 5.55 LAB HGB 13.0-17.0 g/dL Low Hemoglobin 10.7 LAB HCT 39.0-51.0 % Low Hematocrit 38.0 LAB MCV 80.0-100.0 fL Low MCV 68.5 LAB MCH 26.0-34.0 pG Low MCH 19.3 LAB MCHC 30.5-36.0 g/dL Low MCHC 28.2 LAB RDWCV 11.5-15.0 % RDW-CV High 20.2 LAB PLTCT 150-400 k/uL Platelet High Count 780 LAB MPV 9.0-12.7 fL MPV 9.4 LAB ABSNUC <0.01 k/uL Absolute nRBC <0.01 Performed By: #### CBC, PT, PTTAC, BMP #### [facility] [address] [place] [address] PROTIME Collected: 12/05/2017 Status: F Source: [place] 3:55 AM [facility] REPOSITORY TYPE CODE TESTS RESULT OUT OF RANGE REFERENCE UNITS LAB PSEC 8.4-13.0 sec High PT Sec 21.4 LAB INR 0.9-1.3 High PT INR 2.2 Result Comment: Vitamin K Antagonist (VKA) Therapeutic Range: INR 2 to 3 (Target INR of 2.5) Note: For patients treated with VKA drugs, such as warfarin, the [place] [employer] 2012 Guideline recommends a therapeutic INR range of 2 to 3 (target INR of 2.5). This recommendation includes high-risk patients with antiphospholipid syndrome with previous arterial or venous thromboembolism, current-generation mechanical or bioprosthetic aortic heart valve replacement. Note: Patients with mechanical aortic valve replacement and additional risk factors for thromboembolic events (atrial fibrillation, previous thromboembolism, LV dysfunction, hypercoagulable conditions) or an older generation mechanical AVR (i.e., ball in-Cage) or any mechanical MVR should have a INR therapeutic range of 2.5 to 3.5 (target INR of 3). Belkys GH, et al. Chest 2012, 141:7S-47S Caridad RA, et al. [facility] 2017, 70: 252-289 Performed By: #### CBC, PT, PTTAC, BMP #### [facility] Proenza Schouer [address] [place], [place] [address] PTT,ANTICOAG THERAPY Collected: 12/05/2017 Status: F Source: [facility] 3:55 [facility] REPOSITORY TYPE CODE TESTS RESULT OUT OF RANGE REFERENCE UNITS LAB APTT 23.0-32.4 sec High APTT 127.4 Result Comment: Unfractionated Heparin Therapeutic Ranges: Standard Heparin Nomogram: 53 to 78 seconds (anti-Xa level of 0.3 to 0.7 U/ml) Low Dose/ACS Nomogram: 49 to 67 seconds (anti-Xa level of 0.2 to 0.5 U/ml) Stroke Treatment Nomogram: 49 to 67 seconds (anti-Xa level of 0.2 to 0.5 U/ml) Note: The APTT therapeutic range has been determined for the current lot of laboratory APTT reagent in use throughout the [facility]. Result checked and verified Sample checked for a clot. Result confirmed by second method. Called to and read back by: Charissa H80 12/05/17 0554 Bran Performed By: #### CBC, PT, PTTAC, BMP #### [facility] Pro[address] Sch[address] [place], [place] [address] BASIC METABOLIC PANL Collected: 12/05/2017 Status: F Source: [facility] 3:55 [facility] REPOSITORY TYPE CODE TESTS RESULT OUT OF REFERENCE UNITS RANGE LAB GLU 74-99 mg/dL Glucose 87 Result Comment: The [place] [employer] (ADA) provides guidance for cutoff values for fasting glucose and random glucose. The ADA defines fasting as no caloric intake for at least 8 hours. Fas ting plasma glucose results between 100 to 125 mg/dL indicate increased risk for diabetes (prediabetes). Fasting plasma glucose results greater than or equal to 126 mg/dL meet the criteria for diagnosis of diabetes. In the absence of unequivocal hyperglycemia, results should be confirmed by repeat testing. In a patient with classic symptoms of hyperglycemia or hyperglycemic crisis, random plasma glucose results greater than or equal to 200 mg/dL meet the criteria for diagnosis of diabetes. Reference: Standards of Medical Care in Diabetes 2016, [place] [employer]. Diabetes Care. 2016.39(Suppl 1). LAB BUN 9-24 mg/dL Low BUN 7 LAB CRET 0.73-1.22 mg/dL Creatinine 0.92 LAB NA 136-144 mmol/L Sodium 143 LAB K 3.7-5.1 mmol/L Low Potassium 3.4 LAB CL 97-105 mmol/L Chloride High 109 LAB CO2 22-30 mmol/L CO2 22 LAB AGAP 9-18 mmol/L Anion Gap 12 LAB CA 8.5-10.2 mg/dL Calcium, Total 8.6 LAB GFRAA eGFR- Amer. >60 LAB GFRNAA . eGFR-All Other Races >60 Result Comment: eGFR (Estimated GFR) Units of measure: mL/min/1.73 meters squared eGFR is derived from the reexpressed MDRD Study equation using the following parameters: serum creatinine, age, gender and race. The creatinine assay has been calibrated to be traceable to IDMS. An eGFR <60 mL/min/1.73m2 for >3 months is consistent with chronic kidney disease. Refer to KDOQI guidelines for clinical interpretation. In patients with unstable renal function, e.g. those with acute kidney injury, the eGFR may not accurately reflect actual GFR. Performed By: #### CBC, PT, PTTAC, BMP #### [facility] [address] [place] [address] PROGRESS Observed: 12/04/2017 Status: COMPLETED Source: [facility] 3:37 PM [facility] REPOSITORY O ID: [id number] Author: Alena Carranza MD Service: General Internal Medicine Author Type: Physician Type: Progress Notes Filed: 12/05/2017 10:51 AM Note Text: Medicine [place] - Catalino Gomez Daily Progress Note PRIMARY SERVICE: Catalino Gomez PATIENT NAME: Sabina Flores SERVICE DATE: 12/03/2017 SERVICE TIME: 10:23 AM HOSPITAL DAY: # 5 PLAN FOR TODAY - C/w coumadin 2.5 mg daily along with heparin bridge until AM when heparin will be discontinued - Monitor INR in the AM - Likely discharge tomorrow if INR is 2-3. Pt will follow up at coumadin clinic at [facility]. - Continue to monitor BUN/Cr SUBJECTIVE INTERVAL HISTORY: - No acute events reported overnight. VSS, afebrile. - Pt is tolerating regular diet well, no emesis, no c/o abdominal pain - On day 5/5 of heparin bridge to coumadin. INR is 2.0 today - Pt received 1L bolus of NS yesterday and showed considerable improvement in his JULIANA today- Cr is 0.99 (from 1.2 yesterday. Electrolytes stable. UO has been increasing. OBJECTIVE VITAL SIGNS: 12/03/17 1816 12/03/17 2100 12/04/17 0538 12/04/17 0905 BP: 107/52 112/50 125/53 120/53 Pulse: 88 85 78 86 Resp: Temp: 37.3 ?C (99.2 ?F) 37.1 ?C (98.8 ?F) 36.7 ?C (98 ?F) TempSrc: Oral Oral Oral SpO2: 96% 96% 96% Weight: Height: PHYSICAL EXAM: GENERAL: Well appearing, alert, in no acute distress LUNGS: Lungs clear to auscultation. HEART: RRR without murmur, gallop, or rubs. No ectopy ABDOMEN: Soft abdomen, positive bowel sounds. Nontender to palpation. EXTREMITIES: No deformities, edema, skin discoloration NEURO: AAOx3, no gross motor deficits ? INTAKE/OUTPUT: Intake/Output Summary (Last 24 hours) at 12/04/17 1538 Last data filed at 12/04/17 1400 Gross per 24 hour Intake 2491 ml Output 451 ml Net 2040 ml LAB RESULTS: CBC: Recent Labs 12/04/17 0803 12/03/17 0453 12/02/17 1132 12/01/17 0630 11/30/17 0516 11/29/17 2159 WBC 14.46* 17.51* 24.42* 19.51* 20.37* 23.46* HB 10.8* 10.7* 10.6* 12.4* 12.4* 11.8* HCT 38.8* 36.9* 36.8* 44.4 42.5 40.4 PLT 823* 750* 714* 698* 813* 997* MCV 70.3* 68.3* 68.0* 68.1* 66.7* 66.9* RDWCV 19.6* 19.9* 19.7* 20.2* 20.3* 20.5* NEUTP -- -- -- 74.8 89.6 86.0 ABSNEUT -- -- -- 14.59* 18.25* 20.18* LYMPHP -- -- -- 5.2 2.6 3.0 MONOP -- -- -- 7.8 2.6 3.0 EODINP -- -- -- 6.1 0.9 3.0 COAG: Recent Labs 12/04/17 0812/03/17 0453 12/02/17 0013 12/01/17 1641 12/01/17 0910 12/01/1730 11/30/17221211/30/17202711/29/172158 APTT 57.6* 68.6* 86.5* 75.9* 46.9* 43.0* 43.5* >139.0* < > 80.6* INR 2.0* 1.9* 1.4* -- -- 1.2 -- -- -- 1.3 < > = values in this interval not displayed. BMP: Recent Labs 12/04/17 0812/03/17 0453 12/02/17 11312/01/1762911/30/1751511/29/17 2159 GLUC 64* 81 72* 38* 96 95 NA 146* 137 137 140 141 139 K 3.7 3.8 3.7 4.2 4.5 3.3* CHLOR 109* 102 102 100 108* 99 CO2 24 25 25 22 23 22 ANION 13 10 10 18 10 18 BUN 8* 11 12 6* 5* 6* CREAT 0.99 1.20 1.15 0.86 0.69* 0.70* CHEM: Recent Labs 12/04/17 0803 12/03/17 0453 12/02/17 1132 12/01/17 0630 11/30/17 0511/29/17 2159 ALB -- -- -- -- -- 3.7* TPROT -- -- -- -- -- 6.0* CA 8.8 8.9 8.8 9.0 9.3 8.8 MG -- -- -- -- -- 1.4* HEPATIC: Recent Labs 11/29/172158 ALKPHOS 122* ALT 14 AST 23 TBILI 1.0 URINALYSIS: Recent Labs 12/02/17 1321 SPGR 1.013 UGLUC Negative UBILI Negative UKET Trace* UHB Negative UPROT Negative UWBC 6-10* MEDICATIONS: Current hospital medications: warfarin 2.5 mg tab(s) (COUMADIN) 2.5 mg ORAL DAILY - WARFARIN NaCl 0.9% iv infusion 75 mL/hr INTRAVENOUS CONTINUOUS hydroxyurea 500 mg oral liquid (HYDREA) 500 mg ORAL DAILY carvedilol 6.25 mg tab(s) (COREG) 6.25 mg ORAL BID w MEALS mometasone 220 mcg (14 doses) 1 Puff inhaler (ASMANEX) 1 Puff INHALATION DAILY aspirin 81 mg chewable tab(s) 81 mg ORAL DAILY albuterol HFA 90 mcg/actuation 2 Puff (PROVENTIL HFA, VENTOLIN HFA) 2 Puff INHALATION q 6 H PRN allopurinol 300 mg tab(s) (ZYLOPRIM) 300 mg ORAL DAILY cholecalciferol 1,000 Units tab(s) (VITAMIN D3) 1,000 Units ORAL DAILY famotidine 20 mg tab(s) (PEPCID) 20 mg ORAL DAILY tiotropium 18 mcg cap(s) and device for inhalation (SPIRIVA) 18 mcg INHALATION DAILY ondansetron (PF) 4 mg injection (ZOFRAN) 4 mg INTRAVENOUS q 6 H PRN acetaminophen 650 mg tab(s) (TYLENOL) 650 mg ORAL q 4 H PRN traMADol 50 mg tab(s) (ULTRAM) 50 mg ORAL q 6 H PRN 0.9% NaCl 3-5 mL 3-5 mL INTRAVENOUS q 12 H 0.9% NaCl 2-10 mL 2-10 mL INTRAVENOUS q 12 H ciprofloxacin 400 mg in D5W 200 mL (CIPRO) 400 mg INTRAVENOUS q 12 H metroNIDAZOLE 500 mg PREMIX piggyback (FLAGYL) 500 mg INTRAVENOUS q 8 H heparin iv infusion (STANDARD NOMOGRAM) 25,000 units in NaCl 0.45% 250 mL PREMIX 0-3,000 Units/hr INTRAVENOUS CONTINUOUS heparin RATE CHANGE bolus 1,000-10,000 Units for subtherapeutic aptt results 1,000-10,000 Units INTRAVENOUS PRN ASSESSMENT AND PLAN IMPRESSION: 77M with PMH of MPD, 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 ASSESSMENT AND PLAN: #SMV Thrombosis: LUQ/midepigastric burning abdominal pain. 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 Recent esophageal dilatation ?-Appreciate VM recs, hematology recs -C/w heparin ggt along with coumadin for a total of 5 days (today is day 5). After that will monitor INR for 2 days in therapeutic range (2-3) before discharging patient. -INR is 2.0 today, pt is on other drugs that interact with warfarin and may be causing INR to rise quickly. Warfarin lowered to 2.5 mg daily -C/w cipro/flagyl to cover for potential bacterial luminal translocation. Will treat for a total of 7 days. 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 #COPD - On home O2 -C/w spiriva, Proventil #HTN -C/w diltiazem 120 mg BID ? 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 Clinically stable, seen by VM, hematology, on heparin-coumadin bridge. Renal function has plateaued, trial of IVF yesterdya, todays renal function is pending. ? Alena Carranza MD December 04, 2017 11:37 AM 15020 PROTIME Collected: 12/04/2017 Status: F Source: [place] 8:03 AM [facility] REPOSITORY TYPE CODE TESTS RESULT OUT OF RANGE REFERENCE UNITS LAB PSEC 9.7-13.0 sec High PT Sec 20.1 LAB INR 0.9-1.3 High PT INR 2.0 Result Comment: Vitamin K Antagonist (VKA) Therapeutic Range: INR 2 to 3 (Target INR of 2.5) Note: For patients treated with VKA drugs, such as warfarin, the [place] [employer] 2012 Guideline recommends a therapeutic INR range of 2 to 3 (target INR of 2.5). This recommendation includes high-risk patients with antiphospholipid syndrome with previous arterial or venous thromboembolism, current-generation mechanical or bioprosthetic aortic heart valve replacement. Note: Patients with mechanical aortic valve replacement and additional risk factors for thromboembolic events (atrial fibrillation, previous thromboembolism, LV dysfunction, hypercoagulable conditions) or an older generation mechanical AVR (i.e., ball in-Cage) or any mechanical MVR should have a INR therapeutic range of 2.5 to 3.5 (target INR of 3). Belkys GH, et al. Chest 2012, 141:7S-47S Caridad RA, et al. [facility] 2017, 70: 252-289 Performed By: #### PT, PTTAC, BMP, CBC #### [facility] [address], [place] [address] PTT,ANTICOAG THERAPY Collected: 12/04/2017 Status: F Source: [place] 8:03 [facility] REPOSITORY TYPE CODE TESTS RESULT OUT OF RANGE REFERENCE UNITS LAB APTT 23.0-32.4 sec High APTT 57.6 Result Comment: Unfractionated Heparin Therapeutic Ranges: Standard Heparin Nomogram: 53 to 78 seconds (anti-Xa level of 0.3 to 0.7 U/ml) Low Dose/ACS Nomogram: 49 to 67 seconds (anti-Xa level of 0.2 to 0.5 U/ml) Stroke Treatment Nomogram: 49 to 67 seconds (anti-Xa level of 0.2 to 0.5 U/ml) Note: The APTT therapeutic range has been determined for the current lot of laboratory APTT reagent in use throughout the [facility]. Performed By: #### PT, PTTAC, BMP, CBC #### [facility] [address] [place], [place] [address] BASIC METABOLIC PANL Collected: 12/04/2017 Status: F Source: [place] 8:03 [facility] REPOSITORY TYPE CODE TESTS RESULT OUT OF REFERENCE UNITS RANGE LAB GLU 74-99 mg/dL Low Glucose 64 Result Comment: The [place] [employer] (ADA) provides guidance for cutoff values for fasting glucose and random glucose. The ADA defines fasting as no caloric intake for at least 8 hours. Fas ting plasma glucose results between 100 to 125 mg/dL indicate increased risk for diabetes (prediabetes). Fasting plasma glucose results greater than or equal to 126 mg/dL meet the criteria for diagnosis of diabetes. In the absence of unequivocal hyperglycemia, results should be confirmed by repeat testing. In a patient with classic symptoms of hyperglycemia or hyperglycemic crisis, random plasma glucose results greater than or equal to 200 mg/dL meet the criteria for diagnosis of diabetes. Reference: Standards of Medical Care in Diabetes 2016, [place] [employer]. Diabetes Care. 2016.39(Suppl 1). LAB BUN 9-24 mg/dL Low BUN 8 LAB CRET 0.73-1.22 mg/dL Creatinine 0.99 LAB NA 136-144 mmol/L Sodium High 146 LAB K 3.7-5.1 mmol/L Potassium 3.7 LAB CL 97-105 mmol/L Chloride High 109 LAB CO2 22-30 mmol/L CO2 24 LAB AGAP 9-18 mmol/L Anion Gap 13 LAB CA 8.5-10.2 mg/dL Calcium, Total 8.8 LAB GFRAA eGFR- Amer. >60 LAB GFRNAA . eGFR-All Other Races >60 Result Comment: eGFR (Estimated GFR) Units of measure: mL/min/1.73 meters squared eGFR is derived from the reexpressed MDRD Study equation using the following parameters: serum creatinine, age, gender and race. The creatinine assay has been calibrated to be traceable to IDMS. An eGFR <60 mL/min/1.73m2 for >3 months is consistent with chronic kidney disease. Refer to KDOQI guidelines for clinical interpretation. In patients with unstable renal function, e.g. those with acute kidney injury, the eGFR may not accurately reflect actual GFR. Performed By: #### PT, PTTAC, BMP, CBC #### [facility] [address], [place] [address] CBC Collected: 12/04/2017 Status: F Source: [place] 8:03 AM [facility] [place] REPOSITORY TYPE CODE TESTS RESULT OUT OF REFERENCE UNITS RANGE LAB WBC 3.70-11.00 k/uL WBC High 14.46 LAB RBC 4.20-6.00 m/uL RBC 5.52 LAB HGB 13.0-17.0 g/dL Low Hemoglobin 10.8 LAB HCT 39.0-51.0 % Low Hematocrit 38.8 LAB MCV 80.0-100.0 fL Low MCV 70.3 LAB MCH 26.0-34.0 pG Low MCH 19.6 LAB MCHC 30.5-36.0 g/dL Low MCHC 27.8 LAB RDWCV 11.5-15.0 % RDW-CV High 19.6 LAB PLTCT 150-400 k/uL Platelet High Count 823 LAB MPV 9.0-12.7 fL MPV 9.9 LAB ABSNUC <0.01 k/uL Absolute nRBC <0.01 Performed By: #### PT, PTTAC, BMP, CBC #### [facility] [address] [facility] [place], [place] [address] CASE MANAGEM Observed: 12/03/2017 Status: COMPLETED Source: [place] 2:56 PM [facility] [place] REPOSITORY O ID: [id number] Author: Donna (Rn) TL Benson Service: (none) Author Type: Registered Nurse Type: Care Mgt Progress Note Filed: 12/03/2017 3:04 PM Note Text: CARE MANAGEMENT PROGRESS NOTE SERVICE DATE: 12/03/2017 SERVICE TIME: 2:57 PM LOS: 4 days Needs Prior to Discharge: To Be Determined Patient continues on day 4 of 5 heparin bridge,INR today 1.9. Coumadin decreased to 2.5 mg .Will monitor INR for 2 days after in therapeutic range(2-3). Patient having Renal doppler U/S today.CM to continue to follow. SIGNATURE: Donna Benson RN PATIENT NAME: Sabina Flores DATE: December 03, 2017 TIME: 2:57 PM PAGER/CONTACT #: [phone] 12 LEAD ELECTROCARDIOGRAM Observed: 12/03/2017 Status: F Source: [place] 2:00 PM [facility] [address] [place] [id number] 12 Lead EKG 11/29/17 0645 MR#: [id number] Acct: [id number] Name: SABINA FLORES Rep #: [id number] : [id number] 77 From: Maura Johnson MD Attending Dr: Status: DEP ER Ordering Dr: Kwaku Sow DO Date: 11/29/17 Location: ED Sex: M C Admitted: Test Reason : CP Blood Pressure : / mmHG Vent. Rate : 091 BPM Atrial Rate : 091 BPM P-R Int : 184 ms QRS Dur : 088 ms QT Int : 376 ms P-R-T Axes : 075 -38 060 degrees QTc Int : 462 ms Normal sinus rhythm Left axis deviation Poor R wave progression Abnormal ECG Confirmed by EDER MARQUEZ, MAURA ([id number]), medical transcription editor CINTHYA JOLLEY ([id number]) on 12/03/2017 2:00:38 PM Referred By: BEA Confirmed By:MAURA JOHNSON MD 12/03/17 1400 Date Maura Johnson MD CC: Kwaku Sow DO; Varun Wang MD Signed SODIUM,URINE,RANDOM Collected: Status: F Source: [place] 12/03/2017 11:56 AM [facility] REPOSITORY TYPE CODE TESTS RESULT OUT OF RANGE REFERENCE UNITS LAB UNAR 14-216 mmol/L 40 Sodium,Urine ,Random Performed By: #### UNAR, UOSM #### [facility] [address] [place] [address] OSMOLALITY, URINE Collected: 12/03/2017 Status: F Source: [place] 11:56 AM [facility] REPOSITORY TYPE CODE TESTS RESULT OUT OF RANGE REFERENCE UNITS LAB UOSM 50-1200 mOsm/kg 253 Osmolality, Urine Performed By: #### UNAR, UOSM #### [facility] [address] [place] [address] CONSULT PROG Observed: 12/03/2017 Status: COMPLETED Source: [place] 11:09 AM [facility] REPOSITORY HNO ID: [id number] Author: Romana Gonzalez (Fel) Service: Hematology/Oncology Author Type: Fellow Type: Consult Progress Note Filed: 12/03/2017 4:05 PM Note Text: Attestation signed by Gudelia Dunbar at 12/03/2017 8:42 PM Patient continue anticoagulant transition. Hydrea 500 mg/day currently by oral liquid, but with dilation may be able to switch to capsules. Has City Assessor appt next week for f/u. Will sign off. Gudelia Dunbar MD [facility] HEMATOLOGY CONSULT - FOLLOW UP NOTE Reason for the Consult: MPN with mesenteric thrombosis INTERVAL HISTORY Tolerating liquid hydroxyurea well More pleasant this morning Bridging to warfarin Plt count initially decreased to 698, but slowly trending up now, currently 750 MEDICATIONS Current hospital medications: warfarin 2.5 mg tab(s) (COUMADIN) 2.5 mg ORAL DAILY - WARFARIN NaCl 0.9% 1,000 mL iv bolus 1,000 mL INTRAVENOUS ONCE NaCl 0.9% iv infusion 75 mL/hr INTRAVENOUS CONTINUOUS hydroxyurea 500 mg oral liquid (HYDREA) 500 mg ORAL DAILY carvedilol 6.25 mg tab(s) (COREG) 6.25 mg ORAL BID w MEALS mometasone 220 mcg (14 doses) 1 Puff inhaler (ASMANEX) 1 Puff INHALATION DAILY aspirin 81 mg chewable tab(s) 81 mg ORAL DAILY albuterol HFA 90 mcg/actuation 2 Puff (PROVENTIL HFA, VENTOLIN HFA) 2 Puff INHALATION q 6 H PRN allopurinol 300 mg tab(s) (ZYLOPRIM) 300 mg ORAL DAILY cholecalciferol 1,000 Units tab(s) (VITAMIN D3) 1,000 Units ORAL DAILY famotidine 20 mg tab(s) (PEPCID) 20 mg ORAL DAILY tiotropium 18 mcg cap(s) and device for inhalation (SPIRIVA) 18 mcg INHALATION DAILY ondansetron (PF) 4 mg injection (ZOFRAN) 4 mg INTRAVENOUS q 6 H PRN acetaminophen 650 mg tab(s) (TYLENOL) 650 mg ORAL q 4 H PRN traMADol 50 mg tab(s) (ULTRAM) 50 mg ORAL q 6 H PRN 0.9% NaCl 3-5 mL 3-5 mL INTRAVENOUS q 12 H 0.9% NaCl 2-10 mL 2-10 mL INTRAVENOUS q 12 H ciprofloxacin 400 mg in D5W 200 mL (CIPRO) 400 mg INTRAVENOUS q 12 H metroNIDAZOLE 500 mg PREMIX piggyback (FLAGYL) 500 mg INTRAVENOUS q 8 H heparin iv infusion (STANDARD NOMOGRAM) 25,000 units in NaCl 0.45% 250 mL PREMIX 0-3,000 Units/hr INTRAVENOUS CONTINUOUS heparin RATE CHANGE bolus 1,000-10,000 Units for subtherapeutic aptt results 1,000-10,000 Units INTRAVENOUS PRN OBJECTIVE: PHYSICAL EXAMINATION: BP 109/53 Pulse 80 Temp 37.1 ?C (98.8 ?F) (Oral) Resp 18 Ht 180.3 cm (5' 11) Wt 53 kg (116 lb 13.5 oz) SpO2 97% BMI 16.30 kg/m? General appearance: Thin elderly male, in no acute distress. AANDO x 3 Skin: Skin color, texture, turgor normal, no suspicious rashes or lesions HEENT: PERRL, EOMI, sclera non-icteric. Teeth absent. Cardiac: RRR without murmur, gallop, or rubs. No ectopy. Resp: clear to auscultation bilaterally, no wheezes/crackles, rhonchi Abd: NABS. Soft, non-tender. No hepatosplenomegaly. Ext: No LE edema, moves all extremities with no apparent weakness LABORATORY DATA CBC: Recent Labs 12/03/17 0453 12/02/17 1132 12/01/17 0630 11/30/17 0516 11/29/17 2159 WBC 17.51* 24.42* 19.51* 20.37* 23.46* HB 10.7* 10.6* 12.4* 12.4* 11.8* HCT 36.9* 36.8* 44.4 42.5 40.4 PLT 750* 714* 698* 813* 997* MCV 68.3* 68.0* 68.1* 66.7* 66.9* RDWCV 19.9* 19.7* 20.2* 20.3* 20.5* NEUTP -- -- 74.8 89.6 86.0 ABSNEUT -- -- 14.59* 18.25* 20.18* LYMPHP -- -- 5.2 2.6 3.0 MONOP -- -- 7.8 2.6 3.0 EODINP -- -- 6.1 0.9 3.0 BASOP -- -- 6.1 4.3 5.0 ABSMONO -- -- 1.52* 0.53 0.70 ABSEOSIN -- -- 1.19* 0.18 0.70* ABSBASO -- -- 1.19* 0.88* 1.17* COAG: Recent Labs 12/03/17 0453 12/02/17 0013 12/01/17 1641 12/01/17 0910 12/01/17 0630 11/29/17 2159 APTT 68.6* 86.5* 75.9* 46.9* 43.0* < > 80.6* PTSEC 18.7* 14.5* -- -- 12.6 -- 13.0 INR 1.9* 1.4* -- -- 1.2 -- 1.3 < > = values in this interval not displayed. Metabolic Panel: Recent Labs 12/03/17 0453 12/02/17 1132 12/01/17 0630 11/30/17 0516 11/29/17 2159 GLUC 81 72* 38* 96 95 NA 137 137 140 141 139 K 3.8 3.7 4.2 4.5 3.3* CHLOR 102 102 100 108* 99 CO2 25 25 22 23 22 ANION 10 10 18 10 18 BUN 11 12 6* 5* 6* CREAT 1.20 1.15 0.86 0.69* 0.70* ALB -- -- -- -- 3.7* TPROT -- -- -- -- 6.0* CA 8.9 8.8 9.0 9.3 8.8 MG -- -- -- -- 1.4* HEPATIC: Recent Labs 11/29/179 ALKPHOS 122* ALT 14 AST 23 TBILI 1.0 ASSESSMENT AND RECOMMENDATIONS: Mr. 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 Recommendations: 1. Continue hydroxyurea 500mg daily 2. Continue ASA, heparin to warfarin bridge 3. Patient has an appt with Dr. Aguillon (produce service team member) on 12/13; he will need to plan for BMBx in OP setting, consider increasing dose in OP setting if plts do not decrease. Patient will be seen and discussed with Hematology staff Dr. Dunbar for final recommendations. Thank you very much for inviting us to participate in the care of this patient, we will sign off. Romana Gonzalez MD December 03, 2017 11:09 AM Hematology and Medical Oncology Fellow Pager: [phone] After 5pm and weekends please page [phone]. PROGRESS Observed: 12/03/2017 Status: COMPLETED Source: [place] 10:22 AM [facility] REPOSITORY HNO ID: [id number] Author: Alena Carranza MD Service: General Internal Medicine Author Type: Physician Type: Progress Notes Filed: 12/03/2017 3:47 PM Note Text: Medicine [place] - Catalino Gomez Daily Progress Note PRIMARY SERVICE: Catalino Gomez PATIENT NAME: Sabina Flores SERVICE DATE: 12/03/2017 SERVICE TIME: 10:23 AM HOSPITAL DAY: # 4 PLAN FOR TODAY - Will lower coumadin to 2.5 mg daily as INR perez rapidly from 1.4 --> 1.9 - Follow up renal doppler ultrasound - Follow up urine lytes - Will give 1 L bolus and assess BUN/Cr in the AM SUBJECTIVE INTERVAL HISTORY: - No acute events reported overnight. VSS, afebrile. - Pt is tolerating regular diet well, no emesis, no c/o abdominal pain - On day 4/5 of heparin bridge to coumadin. INR is 1.9 today - Urine output was 700 cc yesterday, slightly increased from day before, urine is still cortney colored. U/A showed 1+ LE and some hyaline casts, no RBCs. Cr is stable at 1.2, electrolytes normal OBJECTIVE VITAL SIGNS: 12/02/17 1706 12/02/17 2157 12/03/17 0534 12/03/17 0824 BP: 115/51 107/50 114/53 109/53 Pulse: 95 77 80 80 Resp: 18 18 Temp: 37.1 ?C (98.8 ?F) 37.1 ?C (98.8 ?F) TempSrc: Oral Oral SpO2: 93% 95% 97% Weight: Height: PHYSICAL EXAM: GENERAL: Well appearing, alert, in no acute distress SKIN: Skin color, texture, turgor normal, no suspicious rashes or lesion LUNGS: Lungs clear to auscultation. HEART: RRR without murmur, gallop, or rubs. No ectopy ABDOMEN: Soft abdomen, positive bowel sounds. Nontender to palpation. EXTREMITIES: No deformities, edema, skin discoloration NEURO: AAOx3, no gross motor deficits ? INTAKE/OUTPUT: Intake/Output Summary (Last 24 hours) at 12/03/17 1023 Last data filed at 12/03/17 1000 Gross per 24 hour Intake 3032 ml Output 775 ml Net 2257 ml LAB RESULTS: CBC: Recent Labs 12/03/17 0453 12/02/17 1132 12/01/17 0630 11/30/17 0516 11/29/17 2159 WBC 17.51* 24.42* 19.51* 20.37* 23.46* HB 10.7* 10.6* 12.4* 12.4* 11.8* HCT 36.9* 36.8* 44.4 42.5 40.4 PLT 750* 714* 698* 813* 997* MCV 68.3* 68.0* 68.1* 66.7* 66.9* RDWCV 19.9* 19.7* 20.2* 20.3* 20.5* NEUTP -- -- 74.8 89.6 86.0 ABSNEUT -- -- 14.59* 18.25* 20.18* LYMPHP -- -- 5.2 2.6 3.0 MONOP -- -- 7.8 2.6 3.0 EODINP -- -- 6.1 0.9 3.0 COAG: Recent Labs 12/03/17 0453 12/02/17 0013 12/01/17 1641 12/01/17 0910 12/01/17 0630 11/30/17 2213 11/30/17 2028 11/30/17 1147 11/29/17 2159 APTT 68.6* 86.5* 75.9* 46.9* 43.0* 43.5* >139.0* 41.6* < > 80.6* INR 1.9* 1.4* -- -- 1.2 -- -- -- -- 1.3 < > = values in this interval not displayed. BMP: Recent Labs 12/03/17 0453 12/02/17 1132 12/01/17 0630 11/30/17 0516 11/29/179 GLUC 81 72* 38* 96 95 NA 137 137 140 141 139 K 3.8 3.7 4.2 4.5 3.3* CHLOR 102 102 100 108* 99 CO2 25 25 22 23 22 ANION 10 10 18 10 18 BUN 11 12 6* 5* 6* CREAT 1.20 1.15 0.86 0.69* 0.70* CHEM: Recent Labs 12/03/17 0453 12/02/17 1132 12/01/17 0630 11/30/17 0516 11/29/172158 ALB -- -- -- -- 3.7* TPROT -- -- -- -- 6.0* CA 8.9 8.8 9.0 9.3 8.8 MG -- -- -- -- 1.4* HEPATIC: Recent Labs 11/29/172158 ALKPHOS 122* ALT 14 AST 23 TBILI 1.0 URINALYSIS: Recent Labs 12/02/17 1321 SPGR 1.013 UGLUC Negative UBILI Negative UKET Trace* UHB Negative UPROT Negative UWBC 6-10* MEDICATIONS: Current hospital medications: NaCl 0.9% iv infusion 75 mL/hr INTRAVENOUS CONTINUOUS hydroxyurea 500 mg oral liquid (HYDREA) 500 mg ORAL DAILY carvedilol 6.25 mg tab(s) (COREG) 6.25 mg ORAL BID w MEALS mometasone 220 mcg (14 doses) 1 Puff inhaler (ASMANEX) 1 Puff INHALATION DAILY warfarin 5 mg tab(s) (COUMADIN) 5 mg ORAL DAILY - WARFARIN aspirin 81 mg chewable tab(s) 81 mg ORAL DAILY albuterol HFA 90 mcg/actuation 2 Puff (PROVENTIL HFA, VENTOLIN HFA) 2 Puff INHALATION q 6 H PRN allopurinol 300 mg tab(s) (ZYLOPRIM) 300 mg ORAL DAILY cholecalciferol 1,000 Units tab(s) (VITAMIN D3) 1,000 Units ORAL DAILY famotidine 20 mg tab(s) (PEPCID) 20 mg ORAL DAILY tiotropium 18 mcg cap(s) and device for inhalation (SPIRIVA) 18 mcg INHALATION DAILY ondansetron (PF) 4 mg injection (ZOFRAN) 4 mg INTRAVENOUS q 6 H PRN acetaminophen 650 mg tab(s) (TYLENOL) 650 mg ORAL q 4 H PRN traMADol 50 mg tab(s) (ULTRAM) 50 mg ORAL q 6 H PRN 0.9% NaCl 3-5 mL 3-5 mL INTRAVENOUS q 12 H 0.9% NaCl 2-10 mL 2-10 mL INTRAVENOUS q 12 H ciprofloxacin 400 mg in D5W 200 mL (CIPRO) 400 mg INTRAVENOUS q 12 H metroNIDAZOLE 500 mg PREMIX piggyback (FLAGYL) 500 mg INTRAVENOUS q 8 H heparin iv infusion (STANDARD NOMOGRAM) 25,000 units in NaCl 0.45% 250 mL PREMIX 0-3,000 Units/hr INTRAVENOUS CONTINUOUS heparin RATE CHANGE bolus 1,000-10,000 Units for subtherapeutic aptt results 1,000-10,000 Units INTRAVENOUS PRN ASSESSMENT AND PLAN IMPRESSION: 77M with PMH of MPD, 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 ASSESSMENT AND PLAN: #SMV Thrombosis: LUQ/midepigastric burning abdominal pain. 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 Recent esophageal dilatation ?-Appreciate VM recs, hematology recs -C/w heparin ggt along with coumadin for a total of 5 days (today is day 3). After that will monitor INR for 2 days in therapeutic range (2-3) before discharging patient. -INR is 1.9 today, pt is on other drugs that interact with warfarin and may be causing INR to rise quickly. Warfarin lowered to 2.5 mg daily -C/w cipro/flagyl to cover for potential bacterial luminal translocation. Will treat for a total of 7 days. 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 #COPD - On home O2 -C/w spiriva, Proventil #HTN -C/w diltiazem 120 mg BID ? 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 Clinically stable, seen by VM, hematology, on heparin-coumadin bridge. Renal function has plateaued, trial of IVF again today. Alena Carranza MD December 03, 2017 3:45 PM [id number] CBC Collected: 12/03/2017 Status: F Source: GWINN 4:53 AM [facility] REPOSITORY TYPE CODE TESTS RESULT OUT OF REFERENCE UNITS RANGE LAB WBC 3.70-11.00 k/uL WBC High 17.51 LAB RBC 4.20-6.00 m/uL RBC 5.40 LAB HGB 13.0-17.0 g/dL Low Hemoglobin 10.7 LAB HCT 39.0-51.0 % Low Hematocrit 36.9 LAB MCV 80.0-100.0 fL Low MCV 68.3 LAB MCH 26.0-34.0 pG Low MCH 19.8 LAB MCHC 30.5-36.0 g/dL Low MCHC 29.0 LAB RDWCV 11.5-15.0 % RDW-CV High 19.9 LAB PLTCT 150-400 k/uL Platelet High Count 750 LAB MPV 9.0-12.7 fL MPV 10.1 LAB ABSNUC <0.01 k/uL Absolute nRBC <0.01 Performed By: #### CBC, PT, PTTAC, BMP #### [facility] Proenza Schouer [address] [place], [place] [address] PROTIME Collected: 12/03/2017 Status: F Source: GWINN 4:53 AM [facility] REPOSITORY TYPE CODE TESTS RESULT OUT OF RANGE REFERENCE UNITS LAB PSEC 9.7-13.0 sec High PT Sec 18.7 LAB INR 0.9-1.3 High PT INR 1.9 Result Comment: Vitamin K Antagonist (VKA) Therapeutic Range: INR 2 to 3 (Target INR of 2.5) Note: For patients treated with VKA drugs, such as warfarin, the [place] [employer] 2012 Guideline recommends a therapeutic INR range of 2 to 3 (target INR of 2.5). This recommendation includes high-risk patients with antiphospholipid syndrome with previous arterial or venous thromboembolism, current-generation mechanical or bioprosthetic aortic heart valve replacement. Note: Patients with mechanical aortic valve replacement and additional risk factors for thromboembolic events (atrial fibrillation, previous thromboembolism, LV dysfunction, hypercoagulable conditions) or an older generation mechanical AVR (i.e., ball in-Cage) or any mechanical MVR should have a INR therapeutic range of 2.5 to 3.5 (target INR of 3). Belkys KELLER, et al. Chest 2012, 141:7S-47S Caridad RA, et al. [facility] 2017, 70: 252-289 Performed By: #### CBC, PT, PTTAC, BMP #### [facility] Proenza Sch[address]er [address], [place] [address] PTT,ANTICOAG THERAPY Collected: 12/03/2017 Status: F Source: GWINN 4:53 AM [facility] REPOSITORY TYPE CODE TESTS RESULT OUT OF RANGE REFERENCE UNITS LAB APTT 23.0-32.4 sec High APTT 68.6 Result Comment: Unfractionated Heparin Therapeutic Ranges: Standard Heparin Nomogram: 53 to 78 seconds (anti-Xa level of 0.3 to 0.7 U/ml) Low Dose/ACS Nomogram: 49 to 67 seconds (anti-Xa level of 0.2 to 0.5 U/ml) Stroke Treatment Nomogram: 49 to 67 seconds (anti-Xa level of 0.2 to 0.5 U/ml) Note: The APTT therapeutic range has been determined for the current lot of laboratory APTT reagent in use throughout the [facility]. Performed By: #### CBC, PT, PTTAC, BMP #### [facility] [address] [place], [place] [address] BASIC METABOLIC PANL Collected: 12/03/2017 Status: F Source: GWINN 4:53 AM [facility] REPOSITORY TYPE CODE TESTS RESULT OUT OF REFERENCE UNITS RANGE LAB GLU 74-99 mg/dL Glucose 81 Result Comment: The [place] [employer] (ADA) provides guidance for cutoff values for fasting glucose and random glucose. The ADA defines fasting as no caloric intake for at least 8 hours. Fas ting plasma glucose results between 100 to 125 mg/dL indicate increased risk for diabetes (prediabetes). Fasting plasma glucose results greater than or equal to 126 mg/dL meet the criteria for diagnosis of diabetes. In the absence of unequivocal hyperglycemia, results should be confirmed by repeat testing. In a patient with classic symptoms of hyperglycemia or hyperglycemic crisis, random plasma glucose results greater than or equal to 200 mg/dL meet the criteria for diagnosis of diabetes. Reference: Standards of Medical Care in Diabetes 2016, [place] [employer]. Diabetes Care. 2016.39(Suppl 1). LAB BUN 9-24 mg/dL BUN 11 LAB CRET 0.73-1.22 mg/dL Creatinine 1.20 LAB NA 136-144 mmol/L Sodium 137 LAB K 3.7-5.1 mmol/L Potassium 3.8 LAB CL 97-105 mmol/L Chloride 102 LAB CO2 22-30 mmol/L CO2 25 LAB AGAP 9-18 mmol/L Anion Gap 10 LAB CA 8.5-10.2 mg/dL Calcium, Total 8.9 LAB GFRAA eGFR- Amer. >60 LAB GFRNAA . eGFR-All Other Races 59 Result Comment: eGFR (Estimated GFR) Units of measure: mL/min/1.73 meters squared eGFR is derived from the reexpressed MDRD Study equation using the following parameters: serum creatinine, age, gender and race. The creatinine assay has been calibrated to be traceable to IDMS. An eGFR <60 mL/min/1.73m2 for >3 months is consistent with chronic kidney disease. Refer to KDOQI guidelines for clinical interpretation. In patients with unstable renal function, e.g. those with acute kidney injury, the eGFR may not accurately reflect actual GFR. Performed By: #### CBC, PT, PTTAC, BMP #### [facility] [address] [place], [place] [address] URINALYSIS Collected: 12/02/2017 Status: F Source: GWINN 1:21 PM [facility] REPOSITORY TYPE CODE TESTS RESULT OUT OF RANGE REFERENCE UNITS LAB UCOL Yellow Color Yellow LAB [facility] Clear Clarity Abnormal Cloudy Alert LAB UGLUC Negative mg/dL Glucose, Urine Negative LAB UBIL Negative Bilirubin, Urine Negative LAB UKET Negative Ketones, Abnormal Urine Trace Alert LAB USPG 1.005-1.030 Specific [place], Ur 1.013 LAB UHGB Negative Hemoglobin/Blood, Negative Ur LAB UPH 4.5-8.0 pH 5.0 LAB UPROT Negative mg/dL Protein, Urine Negative LAB UUROB Normal Urobilinogen Normal LAB UNITR Negative Nitrites Negative LAB ULKEST Negative Leukest Abnormal 1+ Alert LAB UCOM Comments SEE COMMENT Result Comment: Microscopic Examination Performed LAB UWBC 0-5 /HPF Abnormal Alert WBC 6-10 LAB URBC 0-3 /HPF RBC 0-3 LAB UCAST 0 /LPF Abnormal Alert Cast SEE COMMENT Result Comment: 1-3 Hyaline Cast LAB UMCOM Urine SEE Noemi Comment COMMENT Result Comment: N/A Performed By: #### UA #### [facility] [address] [place], [place] [address] CBC Collected: 12/02/2017 Status: F Source: GWINN 11:32 AM [facility] REPOSITORY TYPE CODE TESTS RESULT OUT OF REFERENCE UNITS RANGE LAB WBC 3.70-11.00 k/uL WBC High 24.42 LAB RBC 4.20-6.00 m/uL RBC 5.41 LAB HGB 13.0-17.0 g/dL Low Hemoglobin 10.6 LAB HCT 39.0-51.0 % Low Hematocrit 36.8 LAB MCV 80.0-100.0 fL Low MCV 68.0 LAB MCH 26.0-34.0 pG Low MCH 19.6 LAB MCHC 30.5-36.0 g/dL Low MCHC 28.8 LAB RDWCV 11.5-15.0 % RDW-CV High 19.7 LAB PLTCT 150-400 k/uL Platelet High Count 714 LAB MPV 9.0-12.7 fL MPV 9.8 LAB ABSNUC <0.01 k/uL Absolute nRBC <0.01 Performed By: #### CBC, BMP #### [facility] [address] [place], [place] [address] BASIC METABOLIC PANL Collected: 12/02/2017 Status: F Source: GWINN 11:32 AM [facility] REPOSITORY TYPE CODE TESTS RESULT OUT OF REFERENCE UNITS RANGE LAB GLU 74-99 mg/dL Low Glucose 72 Result Comment: The [place] Diabetes [employer] (ADA) provides guidance for cutoff values for fasting glucose and random glucose. The ADA defines fasting as no caloric intake for at least 8 hours. Fas ting plasma glucose results between 100 to 125 mg/dL indicate increased risk for diabetes (prediabetes). Fasting plasma glucose results greater than or equal to 126 mg/dL meet the criteria for diagnosis of diabetes. In the absence of unequivocal hyperglycemia, results should be confirmed by repeat testing. In a patient with classic symptoms of hyperglycemia or hyperglycemic crisis, random plasma glucose results greater than or equal to 200 mg/dL meet the criteria for diagnosis of diabetes. Reference: Standards of Medical Care in Diabetes 2016, [place] [employer]. Diabetes Care. 2016.39(Suppl 1). LAB BUN 9-24 mg/dL BUN 12 LAB CRET 0.73-1.22 mg/dL Creatinine 1.15 LAB NA 136-144 mmol/L Sodium 137 LAB K 3.7-5.1 mmol/L Potassium 3.7 LAB CL 97-105 mmol/L Chloride 102 LAB CO2 22-30 mmol/L CO2 25 LAB AGAP 9-18 mmol/L Anion Gap 10 LAB CA 8.5-10.2 mg/dL Calcium, Total 8.8 LAB GFRAA eGFR- Amer. >60 LAB GFRNAA . eGFR-All Other Races >60 Result Comment: eGFR (Estimated GFR) Units of measure: mL/min/1.73 meters squared eGFR is derived from the reexpressed MDRD Study equation using the following parameters: serum creatinine, age, gender and race. The creatinine assay has been calibrated to be traceable to IDMS. An eGFR <60 mL/min/1.73m2 for >3 months is consistent with chronic kidney disease. Refer to KDOQI guidelines for clinical interpretation. In patients with unstable renal function, e.g. those with acute kidney injury, the eGFR may not accurately reflect actual GFR. Performed By: #### CBC, BMP #### [facility] [address] [place], [place] [address] PROGRESS Observed: 12/02/2017 Status: COMPLETED Source: GWINN 11:23 AM [facility] REPOSITORY HNO ID: [id number] Author: Yeni Foley MD Service: General Internal Medicine Author Type: Physician Type: Progress Notes Filed: 12/02/2017 12:32 PM Note Text: INTERNAL MEDICINE PROGRESS NOTE SERVICE DATE: 12/01/2017 SERVICE TIME: 11:51 AM INTERVAL HISTORY/PLAN: - No acute events overnight - Speech and swallow recommended dental Soft diet with thin liquids. Will advance as tolerated when pt receives his dentures. - On heparin Nomogram - Being bridged to Warfarin- patient has low subcutaneous fat so not a good candidate for Lovenox- now day 3 of heparin/warfarin bridge. INR is 1.4 today. - He's on hydroxyurea liquid- platelets are downtrending - Pt has had decreased urine output and urine has been cortney colored. U/A sent and pt started on NS at 75 mL/hr. Encouraged to drink plenty of liquids MEDICATIONS: Current hospital medications: NaCl 0.9% iv infusion 75 mL/hr INTRAVENOUS CONTINUOUS hydroxyurea 500 mg oral liquid (HYDREA) 500 mg ORAL DAILY carvedilol 6.25 mg tab(s) (COREG) 6.25 mg ORAL BID w MEALS mometasone 220 mcg (14 doses) 1 Puff inhaler (ASMANEX) 1 Puff INHALATION DAILY warfarin 5 mg tab(s) (COUMADIN) 5 mg ORAL DAILY - WARFARIN aspirin 81 mg chewable tab(s) 81 mg ORAL DAILY albuterol HFA 90 mcg/actuation 2 Puff (PROVENTIL HFA, VENTOLIN HFA) 2 Puff INHALATION q 6 H PRN allopurinol 300 mg tab(s) (ZYLOPRIM) 300 mg ORAL DAILY cholecalciferol 1,000 Units tab(s) (VITAMIN D3) 1,000 Units ORAL DAILY famotidine 20 mg tab(s) (PEPCID) 20 mg ORAL DAILY tiotropium 18 mcg cap(s) and device for inhalation (SPIRIVA) 18 mcg INHALATION DAILY ondansetron (PF) 4 mg injection (ZOFRAN) 4 mg INTRAVENOUS q 6 H PRN acetaminophen 650 mg tab(s) (TYLENOL) 650 mg ORAL q 4 H PRN traMADol 50 mg tab(s) (ULTRAM) 50 mg ORAL q 6 H PRN 0.9% NaCl 3-5 mL 3-5 mL INTRAVENOUS q 12 H 0.9% NaCl 2-10 mL 2-10 mL INTRAVENOUS q 12 H ciprofloxacin 400 mg in D5W 200 mL (CIPRO) 400 mg INTRAVENOUS q 12 H metroNIDAZOLE 500 mg PREMIX piggyback (FLAGYL) 500 mg INTRAVENOUS q 8 H heparin iv infusion (STANDARD NOMOGRAM) 25,000 units in NaCl 0.45% 250 mL PREMIX 0-3,000 Units/hr INTRAVENOUS CONTINUOUS heparin RATE CHANGE bolus 1,000-10,000 Units for subtherapeutic aptt results 1,000-10,000 Units INTRAVENOUS PRN HOME MEDICATIONS: albuterol HFA (VENTOLIN HFA) 90 mcg/actuation inhaler Inhale 2 Puffs as instructed every 6 hours as needed for Wheezing/Shortness of Breath. anagrelide (AGRYLIN) 0.5 mg capsule TAKE ONE CAPSULE BY MOUTH TWICE DAILY ondansetron (ZOFRAN) 4 mg tablet Take 1 tablet by mouth every 6 hours as needed. mupirocin (BACTROBAN) 2 % ointment Apply 1 application to affected area twice daily. diltiazem CD (CARDIZEM CD) 120 mg 24 hr capsule Take 120 mg by mouth twice daily. famotidine (PEPCID) 20 mg tablet Take 20 mg by mouth twice daily. oxyCODONE-acetaminophen (PERCOCET) 5-325 mg tablet Take 1 tablet by mouth every 4 hours as needed. Cholecalciferol, Vitamin D3, (VITAMIN D-3) 1,000 unit chew Take 1 tablet by mouth once daily. Vit A-Vit L-Otoq-Mltnajje (ZINC, WITH A AND C, LOZENGES) lozg Take 1 tablet by mouth once daily. Let dissolve in mouth. Chlorhexidine Gluconate (PERIDEX) 0.12 % solution Take 15 mL by mouth once daily. Swish for 30 seconds and then spit out. tiotropium-olodaterol (STIOLTO RESPIMAT) 2.5-2.5 mcg/actuation mist Inhale 2 Puffs as instructed once daily. fluticasone (FLOVENT) 110 mcg/actuation inhaler Inhale 1 Puff as instructed twice daily. allopurinol (ZYLOPRIM) 300 mg tablet Take 1 tablet by mouth once daily. This can be crushed. hydroxyurea (HYDREA) 500 mg capsule Take 1 capsule by mouth once daily. Objective PHYSICAL EXAM: VITAL SIGNS 12/01/17 2111 12/02/17 0111 12/02/17 0540 12/02/17 0834 BP: 90/78 110/54 115/53 113/62 Pulse: 95 92 92 91 Resp: Temp: 37.5 ?C (99.5 ?F) 36.7 ?C (98.1 ?F) 36.7 ?C (98.1 ?F) TempSrc: Oral Oral Oral SpO2: 92% 97% 98% Weight: 53 kg (116 lb 13.5 oz) Height: Temp (24hrs), Av.8 ?C (98.2 ?F), Min:36.7 ?C (98 ?F), Max:37.1 ?C (98.7 ?F) INTAKE/OUTPUT Intake/Output Summary (Last 24 hours) at 12/02/17 1123 Last data filed at 12/02/17 0948 Gross per 24 hour Intake 1402 ml Output 500 ml Net 902 ml GENERAL: Well appearing, alert, in no acute distress SKIN: Skin color, texture, turgor normal, no suspicious rashes or lesions LUNGS: Lungs clear to auscultation. HEART: RRR without murmur, gallop, or rubs. No ectopy ABDOMEN: Soft abdomen, positive bowel sounds. Nontender to palpation. EXTREMITIES: No deformities, edema, skin discoloration NEURO: AAOx3, no gross motor deficits LAB DATA: CBC: Recent Labs 12/01/17 0630 11/30/17 0516 11/29/17 2159 WBC 19.51* 20.37* 23.46* HB 12.4* 12.4* 11.8* HCT 44.4 42.5 40.4 PLT 698* 813* 997* MCV 68.1* 66.7* 66.9* RDWCV 20.2* 20.3* 20.5* NEUTP 74.8 89.6 86.0 ABSNEUT 14.59* 18.25* 20.18* LYMPHP 5.2 2.6 3.0 MONOP 7.8 2.6 3.0 EODINP 6.1 0.9 3.0 COAG: Recent Labs 12/02/17 0013 12/01/17 1641 12/01/17 0910 12/01/17 0630 11/30/17 2213 11/30/17 2028 11/30/17 1147 11/30/17 0302 11/29/17 215 APTT 86.5* 75.9* 46.9* 43.0* 43.5* >139.0* 41.6* 36.0* 80.6* INR 1.4* -- -- 1.2 -- -- -- -- 1.3 BMP: Recent Labs 12/01/17 0630 11/30/17 0516 11/29/17 2159 GLUC 38* 96 95 NA 140 141 139 K 4.2 4.5 3.3* CHLOR 100 108* 99 CO2 22 23 22 ANION 18 10 18 BUN 6* 5* 6* CREAT 0.86 0.69* 0.70* CHEM: Recent Labs 12/01/17 0630 11/30/17 0516 11/29/17 2159 ALB -- -- 3.7* TPROT -- -- 6.0* CA 9.0 9.3 8.8 MG -- -- 1.4* HEPATIC: Recent Labs 11/29/17 2159 ALKPHOS 122* ALT 14 AST 23 TBILI 1.0 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 - Present Overview Assessment: Mesenteric venous thrombosis LUQ/midepigastric burning abdominal pain 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 After that will monitor INR for 2 days in therapeutic range (2-3) before discharging patient. -C/w cipro/flagyl to cover for potential bacterial luminal translocation. Will treat for a total of 7 days. Today is day 3 -Continue famotidine -Pain management - tylenol (mild), tramadol (moderate) -Zofran prn nausea -NS IVF Diet: soft diet as per swallow eval Myeloproliferative disorder (HCC) 11/29/2017 - Present Overview Assessment: JAK2 V617F mutation managed w/ anagrelide 0.5 mg BID, allopurinol Previously on hydroxyurea (stopped due to dysphagia) WBC 25.2, Plt 1034 Retroperitoneal lymphadenopathy noted on CT Plan: -Continue allopurinol -Uric acid was normal -Assess retroperitoneal lymphadenopathy 2/2 myeloproliferative disorder versus esophageal malignancy vs reactive 2/2 inflammation or elevated WBC -Hydroxyurea liquid COPD (chronic obstructive pulmonary disease) ([facility]) 01/13/2013 - Present Overview Continue Spiriva, Proventil -Breathing comfortably on 2L NC Essential hypertension 11/30/2017 - Present Overview Continue diltiazem 120 mg BID Medication and Non-Pharmacologic VTE Prophylaxis/Anticoagulants Anticoagulant AND Antiplatelet Medications Start Dose Route Frequency Ordered Stop 11/30/17 1730 aspirin 81 mg chewable tab(s) 81 mg ORAL DAILY 11/30/17 1722 -- 11/30/17 1700 warfarin 5 mg tab(s) (COUMADIN) 5 mg ORAL DAILY - WARFARIN 11/30/17 1537 -- 11/29/17 2100 heparin iv infusion (STANDARD NOMOGRAM) 25,000 units in NaCl 0.45% 250 mL PREMIX (Heparin Infusion + Rate Change Bolus) 0-30 mL/hr 0-3,000 Units/hr INTRAVENOUS CONTINUOUS 11/29/170 -- 11/29/171999 vte pharmacologic prophylaxis contraindicated (mi,oh) 11/29/171999 pneumatic compression stockings (mi,ga) 11/29/171999 activity - mobilize patient (mi,ga) VTE Prophylaxis: VTE prophylaxis appropriate SIGNATURE: Keri Arango MD PATIENT NAME: Sabina Flores DATE: December 01, 2017 TIME: 11:51 AM PAGER/CONTACT #: [id number] This note is not final until staffed by the attending physician and authenticated by responsible provider. ? [facility] STAFF PHYSICIAN NOTE OF PERSONAL INVOLVEMENT IN CARE ? I have reviewed the progress note ?obtained and documented by the resident?and I personally participated in the perry components. I have discussed the case and management of the patient's care. The following comments revise or confirm relevant perry components of their note. ? IMPRESSION:? ? 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 ?CT Abd/Pelv w/ contrast showed superior mesenteric venous thrombosis, retroperitoneal lymphadenopathy after which he was transferred to [facility] . No signs of bowel ischemia , lactate normal . ? PLAN:? -?vascular medicine, hematology consulted appreciate recs -heparin gtt , bridging to coumadin , inr -1.4 today . -swallow eval done , ok for soft diet with thin liquids , hydroxyurea changed to liquid ,per oncology rec to restart hydroxyurea . -c/w ppx antibiotics -cipro/ flagyl . -wean off oxygen ? CARE COORDINATION:?The majority of the visit was spent counseling and/or coordinating care for the patient. ?Ezzj-hc-niql time was 15?minutes ? Yeni Foley MD December 02, 2017 12:32 PM PTT,ANTICOAG THERAPY Collected: 12/02/2017 Status: F Source: GWINN 12:13 AM [facility] REPOSITORY TYPE CODE TESTS RESULT OUT OF RANGE REFERENCE UNITS LAB APTT 23.0-32.4 sec High APTT 86.5 Result Comment: Unfractionated Heparin Therapeutic Ranges: Standard Heparin Nomogram: 53 to 78 seconds (anti-Xa level of 0.3 to 0.7 U/ml) Low Dose/ACS Nomogram: 49 to 67 seconds (anti-Xa level of 0.2 to 0.5 U/ml) Stroke Treatment Nomogram: 49 to 67 seconds (anti-Xa level of 0.2 to 0.5 U/ml) Note: The APTT therapeutic range has been determined for the current lot of laboratory APTT reagent in use throughout the [facility]. Sample checked for a clot. Performed By: #### PTTAC #### [facility] [address] [place], [place] [address] PROTIME Collected: 12/02/2017 Status: F Source: GWINN 12:13 AM [facility] REPOSITORY TYPE CODE TESTS RESULT OUT OF RANGE REFERENCE UNITS LAB PSEC 9.7-13.0 sec High PT Sec 14.5 Result Comment: Sample checked for a clot. LAB INR 0.9-1.3 High PT INR 1.4 Result Comment: Vitamin K Antagonist (VKA) Therapeutic Range: INR 2 to 3 (Target INR of 2.5) Note: For patients treated with VKA drugs, such as warfarin, the [place] [employer] 2012 Guideline recommends a therapeutic INR range of 2 to 3 (target INR of 2.5). This recommendation includes high-risk patients with antiphospholipid syndrome with previous arterial or venous thromboembolism, current-generation mechanical or bioprosthetic aortic heart valve replacement. Note: Patients with mechanical aortic valve replacement and additional risk factors for thromboembolic events (atrial fibrillation, previous thromboembolism, LV dysfunction, hypercoagulable conditions) or an older generation mechanical AVR (i.e., ball in-Cage) or any mechanical MVR should have a INR therapeutic range of 2.5 to 3.5 (target INR of 3). Belkys GH, et al. Chest 2012, 141:7S-47S Caridad RA, et al. [facility] 2017, 70: 252-289 Sample checked for a clot. Performed By: #### PT #### [facility] [address], [place] [address] PTT,ANTICOAG THERAPY Collected: 12/01/2017 Status: F Source: GWINN 4:41 PM [facility] REPOSITORY TYPE CODE TESTS RESULT OUT OF RANGE REFERENCE UNITS LAB APTT 23.0-32.4 sec High APTT 75.9 Result Comment: Unfractionated Heparin Therapeutic Ranges: Standard Heparin Nomogram: 53 to 78 seconds (anti-Xa level of 0.3 to 0.7 U/ml) Low Dose/ACS Nomogram: 49 to 67 seconds (anti-Xa level of 0.2 to 0.5 U/ml) Stroke Treatment Nomogram: 49 to 67 seconds (anti-Xa level of 0.2 to 0.5 U/ml) Note: The APTT therapeutic range has been determined for the current lot of laboratory APTT reagent in use throughout the [facility]. Performed By: #### PTTAC #### [facility] [address] [place], [place] [address] PROGRESS Observed: 12/01/2017 Status: COMPLETED Source: GWINN 11:51 AM [facility] REPOSITORY HNO ID: [id number] Author: Yeni Foley MD Service: General Internal Medicine Author Type: Physician Type: Progress Notes Filed: 12/01/2017 1:23 PM Note Text: INTERNAL MEDICINE PROGRESS NOTE SERVICE DATE: 12/01/2017 SERVICE TIME: 11:51 AM INTERVAL HISTORY/PLAN: - No acute events overnight - Speech and swallow recommended dental Soft diet with thin liquids. - On heparin Nomogram - Being bridged to Warfarin- patient has low subcutaneous fat so not a good candidate for Lovenox - He's on hydroxyurea- will touch base with Onc regarding changing capsule to liquid MEDICATIONS: Current hospital medications: hydroxyurea 500 mg oral liquid (HYDREA) 500 mg ORAL DAILY carvedilol 6.25 mg tab(s) (COREG) 6.25 mg ORAL BID w MEALS mometasone 220 mcg (14 doses) 1 Puff inhaler (ASMANEX) 1 Puff INHALATION DAILY warfarin 5 mg tab(s) (COUMADIN) 5 mg ORAL DAILY - WARFARIN aspirin 81 mg chewable tab(s) 81 mg ORAL DAILY albuterol HFA 90 mcg/actuation 2 Puff (PROVENTIL HFA, VENTOLIN HFA) 2 Puff INHALATION q 6 H PRN allopurinol 300 mg tab(s) (ZYLOPRIM) 300 mg ORAL DAILY cholecalciferol 1,000 Units tab(s) (VITAMIN D3) 1,000 Units ORAL DAILY famotidine 20 mg tab(s) (PEPCID) 20 mg ORAL DAILY tiotropium 18 mcg cap(s) and device for inhalation (SPIRIVA) 18 mcg INHALATION DAILY ondansetron (PF) 4 mg injection (ZOFRAN) 4 mg INTRAVENOUS q 6 H PRN acetaminophen 650 mg tab(s) (TYLENOL) 650 mg ORAL q 4 H PRN traMADol 50 mg tab(s) (ULTRAM) 50 mg ORAL q 6 H PRN 0.9% NaCl 3-5 mL 3-5 mL INTRAVENOUS q 12 H 0.9% NaCl 2-10 mL 2-10 mL INTRAVENOUS q 12 H ciprofloxacin 400 mg in D5W 200 mL (CIPRO) 400 mg INTRAVENOUS q 12 H metroNIDAZOLE 500 mg PREMIX piggyback (FLAGYL) 500 mg INTRAVENOUS q 8 H heparin iv infusion (STANDARD NOMOGRAM) 25,000 units in NaCl 0.45% 250 mL PREMIX 0-3,000 Units/hr INTRAVENOUS CONTINUOUS heparin RATE CHANGE bolus 1,000-10,000 Units for subtherapeutic aptt results 1,000-10,000 Units INTRAVENOUS PRN HOME MEDICATIONS: albuterol HFA (VENTOLIN HFA) 90 mcg/actuation inhaler Inhale 2 Puffs as instructed every 6 hours as needed for Wheezing/Shortness of Breath. anagrelide (AGRYLIN) 0.5 mg capsule TAKE ONE CAPSULE BY MOUTH TWICE DAILY ondansetron (ZOFRAN) 4 mg tablet Take 1 tablet by mouth every 6 hours as needed. mupirocin (BACTROBAN) 2 % ointment Apply 1 application to affected area twice daily. diltiazem CD (CARDIZEM CD) 120 mg 24 hr capsule Take 120 mg by mouth twice daily. famotidine (PEPCID) 20 mg tablet Take 20 mg by mouth twice daily. oxyCODONE-acetaminophen (PERCOCET) 5-325 mg tablet Take 1 tablet by mouth every 4 hours as needed. Cholecalciferol, Vitamin D3, (VITAMIN D-3) 1,000 unit chew Take 1 tablet by mouth once daily. Vit A-Vit N-Erkb-Jbutvhnp (ZINC, WITH A AND C, LOZENGES) lozg Take 1 tablet by mouth once daily. Let dissolve in mouth. Chlorhexidine Gluconate (PERIDEX) 0.12 % solution Take 15 mL by mouth once daily. Swish for 30 seconds and then spit out. tiotropium-olodaterol (STIOLTO RESPIMAT) 2.5-2.5 mcg/actuation mist Inhale 2 Puffs as instructed once daily. fluticasone (FLOVENT) 110 mcg/actuation inhaler Inhale 1 Puff as instructed twice daily. allopurinol (ZYLOPRIM) 300 mg tablet Take 1 tablet by mouth once daily. This can be crushed. hydroxyurea (HYDREA) 500 mg capsule Take 1 capsule by mouth once daily. Objective PHYSICAL EXAM: VITAL SIGNS 11/30/17 1814 11/30/17 2159 12/01/17 0538 12/01/17 0839 BP: 145/85 137/69 128/71 117/70 Pulse: 102 83 89 89 Resp: 18 16 Temp: 36.7 ?C (98 ?F) 37.1 ?C (98.7 ?F) TempSrc: Oral Oral SpO2: 95% 95% Weight: 53.6 kg (118 lb 2.7 oz) Height: Temp (24hrs), Av.8 ?C (98.2 ?F), Min:36.7 ?C (98 ?F), Max:37.1 ?C (98.7 ?F) INTAKE/OUTPUT Intake/Output Summary (Last 24 hours) at 12/01/17 1151 Last data filed at 12/01/17 0600 Gross per 24 hour Intake 1128 ml Output 1000 ml Net 128 ml GENERAL: Well appearing, alert, in no acute distress SKIN: Skin color, texture, turgor normal, no suspicious rashes or lesions HEENT: Head normal. Anicteric sclera. Pupils are equally round and reactive to light. ?Extraocular movements are intact. ??? NECK: Supple, no adenopathy; no carotid bruits LUNGS: Lungs clear to auscultation. HEART: RRR without murmur, gallop, or rubs. No ectopy ABDOMEN: Soft abdomen, positive bowel sounds. Tenderness noted in LUQ and midepigastric. No rebound, rigidity. EXTREMITIES: No deformities, edema, skin discoloration MUSCULOSKELETAL: Muscular strength intact throughout. No joint swelling, deformity, or tenderness PULSES: Carotid 3/4. Radial 3/4. Posterior tibial 3/4. NEURO: Gait normal. Reflexes normal and symmetric. Sensation grossly intact. LAB DATA: CBC: Recent Labs 12/01/17 0630 11/30/17 0516 11/29/17 2159 WBC 19.51* 20.37* 23.46* HB 12.4* 12.4* 11.8* HCT 44.4 42.5 40.4 PLT 698* 813* 997* MCV 68.1* 66.7* 66.9* RDWCV 20.2* 20.3* 20.5* NEUTP -- 89.6 86.0 ABSNEUT -- 18.25* 20.18* LYMPHP -- 2.6 3.0 MONOP -- 2.6 3.0 EODINP -- 0.9 3.0 COAG: Recent Labs 12/01/17 0910 12/01/17 0630 11/30/17 2213 11/30/178 11/30/17 1147 11/30/17 0302 11/29/17 2159 APTT 46.9* 43.0* 43.5* >139.0* 41.6* 36.0* 80.6* INR -- 1.2 -- -- -- -- 1.3 BMP: Recent Labs 11/30/17 0516 11/29/172158 GLUC 96 95 NA 141 139 K 4.5 3.3* CHLOR 108* 99 CO2 23 22 ANION 10 18 BUN 5* 6* CREAT 0.69* 0.70* CHEM: Recent Labs 11/30/17 0516 11/29/172158 ALB -- 3.7* TPROT -- 6.0* CA 9.3 8.8 MG -- 1.4* HEPATIC: Recent Labs 11/29/172158 ALKPHOS 122* ALT 14 AST 23 TBILI 1.0 URINALYSIS:No results for input(s): PH, SPGR, UGLUC, UBILI, UKET, UHB, UPROT, UROBIL, UWBC, SSA in the last 168 hours. Invalid input(s): NITR CARDIAC: No results for input(s): CKTEST, CKMB, CKMBP, TROPT, PBNP in the last 168 hours. 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 - Present Overview Assessment: Mesenteric venous thrombosis versus PUD versus pancreatitis versus esophageal perforation LUQ/midepigastric burning abdominal pain CT imaging showed superior mesenteric venous thrombosis Hx of pancreatitis, lipase 116 (11/29/17) Recent esophageal dilatation Plan: Appreciate VM recs, hematology recs Start heparin nomogram Start cipro/flagyl Continue famotidine Pain management - tylenol (mild), tramadol (moderate) Zofran prn nausea LR IVF Diet: soft diet as per swallow eval Myeloproliferative disorder (HCC) 11/29/2017 - Present Overview Assessment: JAK2 V617F mutation managed w/ anagrelide 0.5 mg BID, allopurinol Previously on hydroxyurea (stopped due to dysphagia) WBC 25.2, Plt 1034 Retroperitoneal lymphadenopathy noted on CT Plan: Continue allopurinol Uric acid AM Assess retroperitoneal lymphadenopathy 2/2 myeloproliferative disorder versus esophageal malignancy? Hydroxyurea ordered by Oncology COPD (chronic obstructive pulmonary disease) (HCC) 01/13/2013 - Present Overview Continue Spiriva, Proventil Essential hypertension 11/30/2017 - Present Overview Continue diltiazem 120 mg BID Medication and Non-Pharmacologic VTE Prophylaxis/Anticoagulants Anticoagulant AND Antiplatelet Medications Start Dose Route Frequency Ordered Stop 11/30/17 1730 aspirin 81 mg chewable tab(s) 81 mg ORAL DAILY 11/30/17 1722 -- 11/30/17 1700 warfarin 5 mg tab(s) (COUMADIN) 5 mg ORAL DAILY - WARFARIN 11/30/17 1537 -- 11/29/17 2100 heparin iv infusion (STANDARD NOMOGRAM) 25,000 units in NaCl 0.45% 250 mL PREMIX (Heparin Infusion + Rate Change Bolus) 0-30 mL/hr 0-3,000 Units/hr INTRAVENOUS CONTINUOUS 11/29/170 -- 11/29/171999 vte pharmacologic prophylaxis contraindicated (mi,ga) 11/29/171999 pneumatic compression stockings (mi,ga) 11/29/171999 activity - mobilize patient ([place], [place]) VTE Prophylaxis: VTE prophylaxis appropriate SIGNATURE: Keri Arango MD PATIENT NAME: Sabina Flores DATE: December 01, 2017 TIME: 11:51 AM PAGER/CONTACT #: [phone] This note is not final until staffed by the attending physician and authenticated by responsible provider. [facility] STAFF PHYSICIAN NOTE OF PERSONAL INVOLVEMENT IN CARE ? I have reviewed the h and p obtained and documented by the resident and I personally participated in the perry components. I have discussed the case and management of the patient's care. The following comments revise or confirm relevant perry components of their note. ? IMPRESSION: ? 77 year old male a PMH significant for:COPD , Laryngeal cancer s/p radiation completed 04/2014 c/b esophageal dysphagia ,PV JAK2 V617F mutation, managed w/ anagrelide 0.5 mg BID ,GERD w/ previous peptic ulcer disease s/p surgical resection who presented with abdominal pain after an esophageal dilation on 11/27/[address] Abd/Pelv w/ contrast showed superior mesenteric venous thrombosis, retroperitoneal lymphadenopathy after which he was transferred to [facility] . No signs of bowel ischemia , lactate normal ? PLAN: - vascular medicine, hematology consulted appreciate recs -heparin gtt , bridging to coumadin , inr -1.2 Today . -swallow eval done , ok for soft diet with thin liquids , hydroxyurea changed to liquid , oncology rec to restart hydroxyurea . -c/w ppx antibiotics -cipro flagyl . -wean off oxygen CARE COORDINATION: The majority of the visit was spent counseling and/or coordinating care for the patient. Sgyu-qn-[id number] time was 15 minutes ? Yeni Foley MD December 01, 2017 1:23 PM THERAPY NT Observed: 12/01/2017 Status: COMPLETED Source: [facility] 11:24 AM [facility] REPOSITORY HNO ID: [id number] Author: Yamilka Nelson (Pt) Crispin Service: Physical Therapy Author Type: Physical Therapist Type: Therapy (PT/OT/Speech/Resp) Filed: 12/01/2017 11:27 AM Note Text: Physical Therapy Evaluation SERVICE DATE: 12/01/2017 SERVICE TIME: 1030 to 1058 ROOM: [place] [address] Recommended Discharge Disposition: Home PT Recommendations to Nursing: Ambulate with device;In halls;OOB for Meals Device: No Device PT 6 Clicks Score: 23 ASSESSMENT : 77 year old patient admitted to the hospital for abdominal pain. Patient's impairments as related to Physical Therapy include weakness. Patient will continue to require skilled Physical Therapy while in-house to improve balance, strength, and trunk control in order to improve safety and?independence with functional mobility. Patient Disposition at Start of Session: Supine in Bed;Call Hendrickson in Reach Patient Disposition at End of Session: Supine in Bed;Call Hendrickson in Reach Tolerated Full Session Physical Therapy Problem List: Decreased Strength;Functional Mobility Impairment Patient /Caregiver Goals: Go Home Goals for Plan of Care: Able to perform HEP with: Independent Ambulate with: Independent Distance: 250 Device: No Device Ambulate up and down steps with: Modified Independent Number of steps: 12 Device: Rail Rehab Potential: Good PLAN: Treatment Frequency (times per week): 1 Current admission Treatment Interventions: Education;Strengthening;Functional Mobility Training;Balance Training;Neuromuscular Re-education Plan of Care developed with: Patient TREATMENT INTERVENTIONS: Therapy Diagnosis: Reduced mobility-other Interventions Provided: Evaluation;Gait Training (26050) $ Evaluation-Low (16600) Billed Units: 1 unit Gait Training (33908) Treatment Minutes: 13 1 unit Skilled Intervention(s): min verbal cues to utilize rest breaks as needed; min verbal cues for environmental awareness Encouraged pt to mobilize throughout the day with supervision Instructed pt on safe stair climbing techniques Instructed pt on safety when navigating ramps Total Timed Code Treatment Minutes: 13 Total Treatment Time (minutes): 28 FUNCTIONAL G CODE: PT 6 Clicks Score: 23 (12/01/17 1030) Mobility: Walking and Moving Around Current Status (G8978): CI (12/01/17 1030) Mobility: Walking and Moving Around Goal Status (G8979): CH (12/01/171029) Based on clinical assessment and the score on the 6 Clicks Functional Assessment Tool, the G code and corresponding severity modifiers are documented above. SUBJECTIVE: Current Hospital Course: Chart reviewed; 77 year old male admitted for abdominal pain Reason for Physical Therapy Consult : post acute placement Relevant Past Medical History: SCC of larynx, ILD, COPD Patient Report: I have to take care of my a lot. Home Environment Patient Lives With: Significant Other Assistance Available: 24 Hour Entry To Home: No Stairs Number Of Stairs To Bed/Bath: 12 Stairs to Bed/Bath with: Unilateral Rail Equipment Owned: Home Oxygen Prior Functional Level: (No recent falls;+drives;ind w/amb;assists ) OBJECTIVE: Mini Cog Score: 4 (12/01/171029) CURRENT FUNCTIONAL STATUS: Current Functional Mobility Assist Level Additional Information Rolling Supine to Sit Independent Sit to Supine Independent Scooting Independent Sit to Stand Independent Stand to Sit Independent Bed to Chair Toilet/Commode Gait Stand By Assistance Gait Device: IV Pole Gait Distance (feet): 450 Stairs Supervision Stairs Device: Rail Number of Stairs: 4 Curb Step Car Transfer General Gait Deviations: Carol decreased Balance: Static Sitting;Dynamic Sitting;Static Standing;Dynamic Standing Static Sitting Balance: Independent Dynamic Sitting Balance: Independent Static Standing Balance: Supervision Dynamic Standing Balance: Stand By Assistance Please see discipline specific clinical documentation flowsheet for complete details for this therapy evaluation/treatment. SIGNATURE: Yamilka Roa DPT PATIENT NAME: Sabina Flores DATE: December 01, 2017 TIME: 11:24 AM NURSING PROG Observed: 12/01/2017 Status: COMPLETED Source: [facility] 11:08 AM [facility] REPOSITORY HNO ID: [id number] Author: Capri (Rn) TL Williamson Service: Nursing Author Type: Registered Nurse Type: Nursing Progress Note Filed: 12/01/2017 12:26 PM Note Text: Nursing Progress Note Patient Name: Sabina Flores Patient Location: [place] [address] Daily Note: 1045: Pt had a pea size blood clot when he blew his nose. No other signs of active bleeding. Dr. Arango notified via alpha page. 1215: Lab called with critical glucose of 38 from 0630 labs drawn. Checked sugar at bedside, 73. Dr. Arango notified in person. Will recheck sugar in one hour. This note was completed by: Capri Williamson RN PT ED Observed: 12/01/2017 Status: COMPLETED Source: [facility] 10:13 AM [facility] REPOSITORY HNO ID: [id number] Author: Michelle Rogers (Pharmacist) Service: Pharmacy Author Type: Pharmacist Type: Patient Education Filed: 12/05/2017 8:55 AM Note Text: PHARMACY WARFARIN EDUCATION Patient Name: Sabina Flores Account #: Data Unavailable Admission Date: 11/29/2017 5:42 PM Date of Contact: December 01, 2017 Time of Contact: 10:14 AM Patient new to warfarin? Yes Outpatient follow-up plan: Follow-up in Anticoagulation Clinic: [facility] ([phone]) Indication for warfarin: SMV thrombosis Target INR range: 2.0 - 3.0 (Target 2.5) Patient received full warfarin education. Initial patient education included: * Reason for taking warfarin * How warfarin works * What the INR test is, frequency of testing, and the importance of monitoring warfarin with scheduled PT/INR blood draws or finger sticks * Information about plans to monitor warfarin post-discharge was reviewed * When to take warfarin and what to do if a dose is missed * Identifying tablet(s) and to notify the doctor/anticoagulation clinic if there is a change in tablet color, shape, or markings * Drug interactions (Rx, OTC, herbal) and importance of notifying the doctor/anticoagulation clinic with any changes. * Do not take or discontinue any medication or over the counter medication except on the advice of the physician or pharmacist because certain medications can affect the PT/INR. * Potential duration of therapy * Signs/symptoms of bleeding and what to do if they occur because warfarin increases the risk of bleeding * Precautionary measures to decrease trauma/bleeding * Signs/symptoms of thrombosis and what to do if they occur * Need to limit or avoid EtOH consumption * Dietary considerations discussing that a ?consistent amount? of foods with vitamin K rather than avoidances should be advised and to avoid major changes in dietary habits, or notify health professional before changing habits because diet can affect the PT/INR * Carrying identification * Importance of notifying healthcare provider and [facility] when hospitalizations occur and when another healthcare provider has asked them to stop/hold warfarin before any procedure * Importance of notifying all healthcare providers they are taking warfarin * Use of control measures if applicable * The importance of taking warfarin as instructed and the potential ramifications of non- compliance were explained to the patient. The patient was provided ?Understanding the Anticoagulant Medication Warfarin? education booklet which includes the following : compliance Issues, dietary advice, follow-up with physician, follow- up monitoring, potential adverse drug reactions and interactions. READINESS TO LEARN COGNITIVE ABILITY: Alert and oriented MOTIVATION TO LEARN: Interested FAMILY SUPPORT: None - Unavailable/disinterested INSTRUCTION PROVIDED TO: Patient PATIENT LEARNS BEST BY: Unable to Assess FACTORS AFFECTING LEARNING: None PHYSICAL LIMITATIONS AFFECTING LEARNING: None LEARNING RESPONSE DIAGNOSIS: SEE INDICATION(S) ABOVE PATIENT/FAMILY RESPONSE: Verbalizes understanding of: The signs and symptoms of a worsening condition that warrant a call to the physician. The correct actions to take to manage symptoms associated with his/her disease/illness. The physical restrictions and recommendations after discharge from the hospital. Accurate knowledge of prescribed medication prior to discharge. The correct action to take if medication dose is missed. The side effects associated with the medication that warrant a call to the physician. Post discharge follow up instruction Diet monitoring METHOD OF INSTRUCTION: Individual instruction Written instruction - handouts Verbal instruction SUPPLEMENTAL MATERIAL PROVIDED: Vitamin K Chart and Warfarin booklet: FURTHER RECOMMENDATIONS (if any) None; patient says his warfarin follow up preference: [facility] in [place], [place]. EVIDENCE OF LEARNING Outcomes met: Indicates understanding of topic Outcomes not met: N/A Outpatient Follow-up: See notes above for patient follow up preference. Suzan Robert (Monotypist) APTT Collected: 12/01/2017 Status: F Source: [facility] 9:10 AM [facility] REPOSITORY TYPE CODE TESTS RESULT OUT OF RANGE REFERENCE UNITS LAB APTT 23.0-32.4 sec High APTT 46.9 Result Comment: Unfractionated Heparin Therapeutic Ranges: Standard Heparin Nomogram: 53 to 78 seconds (anti-Xa level of 0.3 to 0.7 U/ml) Low Dose/ACS Nomogram: 49 to 67 seconds (anti-Xa level of 0.2 to 0.5 U/ml) Stroke Treatment Nomogram: 49 to 67 seconds (anti-Xa level of 0.2 to 0.5 U/ml) Note: The APTT therapeutic range has been determined for the current lot of laboratory APTT reagent in use throughout the [facility]. Performed By: #### PTT #### [facility] Proenza Sch[address]er [address] [place] [id number] LACTATE Collected: 12/01/2017 Status: F Source: [facility] 6:30 AM [facility] REPOSITORY TYPE CODE TESTS RESULT OUT OF REFERENCE UNITS RANGE LAB LACT 0.5-2.2 mmol/L Lactate 0.8 Performed By: #### LACT, PT, BMP, CBCDIF #### [facility] [address] [place] [address] PROTIME Collected: 12/01/2017 Status: F Source: [facility] 6:30 AM [facility] REPOSITORY TYPE CODE TESTS RESULT OUT OF RANGE REFERENCE UNITS LAB PSEC 9.7-13.0 sec PT Sec 12.6 LAB INR 0.9-1.3 PT INR 1.2 Result Comment: Vitamin K Antagonist (VKA) Therapeutic Range: INR 2 to 3 (Target INR of 2.5) Note: For patients treated with VKA drugs, such as warfarin, the [place] [employer] 2012 Guideline recommends a therapeutic INR range of 2 to 3 (target INR of 2.5). This recommendation includes high-risk patients with antiphospholipid syndrome with previous arterial or venous thromboembolism, current-generation mechanical or bioprosthetic aortic heart valve replacement. Note: Patients with mechanical aortic valve replacement and additional risk factors for thromboembolic events (atrial fibrillation, previous thromboembolism, LV dysfunction, hypercoagulable conditions) or an older generation mechanical AVR (i.e., ball in-Cage) or any mechanical MVR should have a INR therapeutic range of 2.5 to 3.5 (target INR of 3). Belkys GH, et al. Chest 2012, 141:7S-47S Caridad RA, et al. [facility] 2017, 70: 252-289 Performed By: #### LACT, PT, BMP, CBCDIF #### [facility] [address] [place] [address] BASIC METABOLIC PANL Collected: 12/01/2017 Status: F Source: [facility] 6:30 AM [facility] REPOSITORY TYPE CODE TESTS RESULT OUT OF REFERENCE UNITS RANGE LAB GLU 74-99 mg/dL Low Alert Glucose 38 Result Comment: The [place] [employer] Association (ADA) provides guidance for cutoff values for fasting glucose and random glucose. The ADA defines fasting as no caloric intake for at least 8 hours. Fas ting plasma glucose results between 100 to 125 mg/dL indicate increased risk for diabetes (prediabetes). Fasting plasma glucose results greater than or equal to 126 mg/dL meet the criteria for diagnosis of diabetes. In the absence of unequivocal hyperglycemia, results should be confirmed by repeat testing. In a patient with classic symptoms of hyperglycemia or hyperglycemic crisis, random plasma glucose results greater than or equal to 200 mg/dL meet the criteria for diagnosis of diabetes. Reference: Standards of Medical Care in Diabetes 2016, [place] [employer]. Diabetes Care. 2016.39(Suppl 1). Called to and read back by: Zaina H80 12/01/17 1212 ARoberts LAB BUN 9-24 mg/dL BUN Low 6 LAB CRET 0.73-1.22 mg/dL Creatinine 0.86 LAB NA 136-144 mmol/L Sodium 140 LAB K 3.7-5.1 mmol/L Potassium 4.2 LAB CL 97-105 mmol/L Chloride 100 LAB CO2 22-30 mmol/L CO2 22 LAB AGAP 9-18 mmol/L Anion Gap 18 LAB CA 8.5-10.2 mg/dL Calcium, Total 9.0 LAB GFRAA eGFR- Amer. >60 LAB GFRNAA . eGFR-All Other Races >60 Result Comment: eGFR (Estimated GFR) Units of measure: mL/min/1.73 meters squared eGFR is derived from the reexpressed MDRD Study equation using the following parameters: serum creatinine, age, gender and race. The creatinine assay has been calibrated to be traceable to IDMS. An eGFR <60 mL/min/1.73m2 for >3 months is consistent with chronic kidney disease. Refer to KDOQI guidelines for clinical interpretation. In patients with unstable renal function, e.g. those with acute kidney injury, the eGFR may not accurately reflect actual GFR. Performed By: #### LACT, PT, BMP, CBCDIF #### [facility] [address] [place], [place] [address] CBC AND DIFFERENTIAL Collected: 12/01/2017 Status: F Source: [facility] 6:30 AM [facility] REPOSITORY TYPE CODE TESTS RESULT OUT OF REFERENCE UNITS RANGE LAB WBC 3.70-11.00 k/uL WBC High 19.51 LAB RBC 4.20-6.00 m/uL RBC High 6.52 LAB HGB 13.0-17.0 g/dL Hemoglobin Low 12.4 LAB HCT 39.0-51.0 % Hematocrit 44.4 LAB MCV 80.0-100.0 fL MCV Low 68.1 LAB MCH 26.0-34.0 pG MCH Low 19.0 LAB MCHC 30.5-36.0 g/dL MCHC Low 27.9 LAB RDWCV 11.5-15.0 % RDW-CV High 20.2 LAB PLTCT 150-400 k/uL Platelet Count High 698 LAB MPV 9.0-12.7 fL MPV 9.7 LAB ANEUT % Neut% 74.8 LAB AANEUT 1.45-7.50 k/uL Abs Neut High 14.59 LAB ALYMP % Lymph% 5.2 LAB AALYMP 1.00-4.00 k/uL Abs Lymph 1.01 LAB AMONO % Preston% 7.8 LAB AAMONO <0.87 k/uL Abs Preston High 1.52 LAB AEOS % Eosin% 6.1 LAB AAEOS <0.46 k/uL Abs Eosin High 1.19 LAB ABASO % Baso% 6.1 LAB AABASO <0.11 k/uL Abs Baso High 1.19 LAB ANIIMI Anisocytosis Present LAB OVAIMI Ovalocytes Moderate LAB POLIMI Polychromasia Slight LAB RCFIMI RBC Fragments Few LAB PLTEST Platelet Estimate Platelet estimate increased LAB DTYP DTYPE Manual Diff Performed By: #### LACT, PT, BMP, CBCDIF #### [facility] [address] [place], [place] [address] PTT,ANTICOAG THERAPY Collected: 12/01/2017 Status: F Source: [facility] 6:30 AM [facility] REPOSITORY TYPE CODE TESTS RESULT OUT OF RANGE REFERENCE UNITS LAB APTT 23.0-32.4 sec High APTT 43.0 Result Comment: Unfractionated Heparin Therapeutic Ranges: Standard Heparin Nomogram: 53 to 78 seconds (anti-Xa level of 0.3 to 0.7 U/ml) Low Dose/ACS Nomogram: 49 to 67 seconds (anti-Xa level of 0.2 to 0.5 U/ml) Stroke Treatment Nomogram: 49 to 67 seconds (anti-Xa level of 0.2 to 0.5 U/ml) Note: The APTT therapeutic range has been determined for the current lot of laboratory APTT reagent in use throughout the [facility]. Performed By: #### PTTAC #### [facility] [address] [place], [place] [address] PTT,ANTICOAG THERAPY Collected: 11/30/2017 Status: F Source: [facility] 10:13 PM [facility] REPOSITORY TYPE CODE TESTS RESULT OUT OF RANGE REFERENCE UNITS LAB APTT 23.0-32.4 sec High APTT 43.5 Result Comment: Unfractionated Heparin Therapeutic Ranges: Standard Heparin Nomogram: 53 to 78 seconds (anti-Xa level of 0.3 to 0.7 U/ml) Low Dose/ACS Nomogram: 49 to 67 seconds (anti-Xa level of 0.2 to 0.5 U/ml) Stroke Treatment Nomogram: 49 to 67 seconds (anti-Xa level of 0.2 to 0.5 U/ml) Note: The APTT therapeutic range has been determined for the current lot of laboratory APTT reagent in use throughout the [facility]. Performed By: #### PTTAC #### [facility] [address] [place], [place] [address] PTT,ANTICOAG THERAPY Collected: 11/30/2017 Status: F Source: [facility] 8:28 PM [facility] REPOSITORY TYPE CODE TESTS RESULT OUT OF RANGE REFERENCE UNITS LAB APTT 23.0-32.4 sec High APTT >139.0 Result Comment: Unfractionated Heparin Therapeutic Ranges: Standard Heparin Nomogram: 53 to 78 seconds (anti-Xa level of 0.3 to 0.7 U/ml) Low Dose/ACS Nomogram: 49 to 67 seconds (anti-Xa level of 0.2 to 0.5 U/ml) Stroke Treatment Nomogram: 49 to 67 seconds (anti-Xa level of 0.2 to 0.5 U/ml) Note: The APTT therapeutic range has been determined for the current lot of laboratory APTT reagent in use throughout the [facility]. Result rechecked. Sample checked for a clot. Called to and read back by: Surya Cisse 11/30/17 21:31 SAngella Performed By: #### PTTAC #### [facility] [address] [place], [place] [address] THERAPY NT Observed: 11/30/2017 Status: COMPLETED Source: [facility] 2:47 PM [facility] REPOSITORY HNO ID: [id number] Author: Britni (Dispatch Manager) Cricket Roque CCC/ONLINE ACTIVIST Service: Speech/Swallow Author Type: Speech Language Pathologist Type: Therapy (PT/OT/Speech/Resp) Filed: 11/30/2017 3:01 PM Note Text: [facility] Speech Pathology - [facility] [place] [facility] Bedside Swallow Evaluation SERVICE DATE: 11/30/2017 [address] IMPRESSIONS: Oropharyngeal swallow appears intact. Prognosis: Favorable RECOMMENDATIONS: Consider starting a Dental Soft diet with thin liquids. ? Sit as upright as able / comfortable for all meals. Opt for moister/softer foods Small bites / sips If further concerns, please order a Modified Barium Swallow for Sunday12/03/17. PLAN: To monitor. Please page with questions or concerns. Britni Roque MA,CCC-ONLINE ACTIVIST Pager # [phone] BRIEF DIAGNOSIS AND HISTORY: Sabina Flores is a 77 year old male admitted to [facility] with abdominal pain from [facility]. Patient had a 2cm esophageal dilation on 11/27/17 at F due to dysphagia 2/2 neck radiation of past laryngeal cancer. Patient endorsed LUQ burning pain starting yesterday in the evening two hours post-prandial. Patient had associated nausea/vomiting. Patient tried oxycodone for pain with minimal relief. Denies fever, CP, hematemesis, diarrhea. Patient had a previous episode of pancreatitis in April and drinks alcohol (last beer that night)/previous smoker (quit 4 years ago). Pain continued overnight and he was admitted to OSH in the morning. ? ? At OSH, labs showed WBC 25.2, Hgb 12.4, Plt 1034, Lactic Acid 1.2, Lipase 116, and CT Abd/Pelv w/ contrast showed superior mesenteric venous thrombosis, retroperitoneal lymphadenopathy. Patient was transferred to [facility] for continued medical management. ?? ? 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 Results and recommendations were as follows: IMPRESSIONS: Initially patient referred for bedside swallowing evaluation but given history and also orders for esophagram, a modified barium swallow was recommended for reliable assessment along with esophagram study. MD orders were received. ? Patient demonstrated functional oral skills although slower mastication without dentures in place. Mild pharyngeal dysphagia with residue in vallecular sinuses, trace coating of pyriform sinuses and intermittent trace laryngeal penetration during due to decreased airway closure and after from spillover. Chin tuck posture appeared to improve airway closure and reduce risk for laryngeal penetration during swallows. No aspiration seen during this study. Deviation of contrast around cervical spur at C5-6 but not considered clinically significant. ? After MBS ruled out aspiration, an esophagram was completed with GI Radiology with following results: SHORT SEGMENT BENIGN-APPEARING NARROWING IN THE PROXIMAL ESOPHAGUS (JUST CAUDAD TO THE CERVICOTHORACIC JUNCTION). MILD VOLUME GASTROESOPHAGEAL REFLUX. MINIMAL ESOPHAGEAL DYSMOTILITY. ? Please refer to GI Radiology report for details. ? PROGNOSIS: Favorable with controls. ? RECOMMENDATIONS: ? 1. Consider starting a Dysphagia Level 3 diet with thin liquids using controls. If tolerating solids, then may progress to regular as tolerated. ? 2. Controls: *place dentures for meals *sit upright *opt for moister/softer foods *single drinks with chin tuck posture *controlled bites of foods with effortful swallow and liquid wash to clear vallecular space Pt reports that he had been eating well at home but felt food sticking prior to esophageal dilation. He reports that his swallowing is improved since the dilation earlier this week. 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 - Subclinical hypothyroidism 09/20/2017 - Tobacco use disorder 01/11/2005 - Unspecified asthma(493.90) 03/03/2011 pt not aware PAST SURGICAL HISTORY Procedure Laterality Date - COLONOSCOP W/ OR W/O BRSH SPEC 2003 Colonoscopy - COLONOSCOP W/ OR W/O BRSH SPEC 02/20/2013 Colonoscopy - COLONOSCOP W/ OR W/O BRSH SPEC 03/30/16 Colonoscopy - EGD BIOPSY SINGLE/MULTIPLE 09/21/2017 - EGD W/O OR W/BRUSH/WASH 2003 EGD - EGD W/O OR W/BRUSH/WASH 02/20/13 EGD - ESOPH W/O [facility] SPEC BALLOON DIL 12-1-2003 Esophageal dilatation - LARYNGOSCOPY W/ BIOPSY 02/06/2014 - PARTIAL GASTRECTOMY 1970 bleeding ulcer - PAST SURGICAL HISTORY OF Left 08/29/2016 Floor of mouth resection, sialadochoplasty BEHAVIORAL OBSERVATIONS: Alert, Cooperative, Oriented x3 PRESENT FEEDING METHOD: NPO Diet Level: NPO Dentition: Wears dentures but not available Tracheostomy: No O2: Nasal Cannula ORAL MECHANISM EVALUATION: Oral motor skills were adequate. SPEECH PRODUCTION: Speech intelligibility is good. CONSISTENCIES GIVEN: Ice chips Water Pudding ORAL / PHARYNGEAL SWALLOW COMMENTS: Adequate oral manipulation and A-P transfer. Swallow onset appears prompt. Laryngeal elevation is good. Voice was clear throughout eval. No overt signs of aspiration observed. Results and Recommendations were discussed with: kayla, RN SIGNATURE: Britni Roque MA,CCC-ONLINE ACTIVIST PATIENT NAME: Sabina Flores DATE: November 30, 2017 TIME: 2:47 PM PAGER: [phone] CASE MGT INIT Observed: 11/30/2017 Status: COMPLETED Source: [facility] 2:01 PM [facility] REPOSITORY HNO ID: [id number] Author: Donna (Rn) TL Benson Service: (none) Author Type: Registered Nurse Type: Care Mgt Initial Assessment Filed: 11/30/2017 2:18 PM Note Text: CARE MANAGEMENT: ASSESSMENT AND DISCHARGE PLAN SERVICE DATE: 11/30/2017 SERVICE TIME: 2:01 PM PRIMARY CARE PHYSICIAN: Varun Wang MD ADMISSION STATUS: Inpatient Needs Prior to Discharge: To Be Determined NO WEEKEND D/C 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 Flores is a 77 year old year old male with h/o MPN (JAK2 V617F+ on anagrelide 0.5mg BID who presents with acute SMV thrombosis, Last Admission Date: Previous admit date: 09/18/2017 Is this Within the Past 30 days? No Advance Directive: Current Advance Directive: None Wireless Technician Assisted with AD Completion: No Unable to Assist Due To:: (Offered and declined) Health Literacy: 1. How often do you need to have someone help you when you read instructions, pamphlets, or other written material from your doctor or pharmacy? Never - 1 2. How confident are you filling out medical forms by yourself? Extremely - 1 If Patient scores > 3 on either question, the following interventions were put into place: Patient did not score > 3 FUNCTIONAL AND COGNITIVE/BEHAVIORAL PRIOR TO ADMISSION: Baseline Mental Status: Alert AND Oriented, Person, Place , Time and Situation Functional Status: Independent Does Patient Currently Receive Any Community Services or Home Care? None Equipment Prior to Admission: Oxygen 2 LPM @ HS only liters per minute Has the Patient Been in a Assisted Facility in the Past 30 days? No SOCIAL: Living Arrangement: Home Lives With: Spouse Financial Resources: Retired Primary Contact: Extended Emergency Contact Information Primary Emergency Contact: Donnie Flores Address: [address] [place] [address] Mobile Relation: Spouse Secondary Emergency Contact: JordanBrenda Mobile Relation: Daughter Supportive: Yes Other Important Patient Contacts: None Caregiver Assessment: Caregiver is ready, willing and able to meet the patient's needs as recommended by the inter-professional team? Yes Patient's transition needs and plan for meeting these needs: TBD Does the patient have an acute stroke diagnosis, or has the patient had a stroke during this admission? No Medication Adherence: I am convinced of the importance of my prescription medication: Agree completely - 0 I worry that my prescription medication will do more harm than good to me Disagree completely - 0 I feel financially burdened by my cox-bl-cwyzuu expenses for my prescription medication: Disagree completely - 0 Patient is categorized as low risk < 2 Are you interested in bedside delivery of your medications? No Food Concerns: In the Last Month, Have You had Trouble Getting Food? No trouble getting food During the Last Month, Have You Worried Whether Your Food Would Run Out Before You Had Enough Money to Buy More? No Is the Patient Psychosocially Complex? No ASSESSMENT AND PLAN: Medical Needs: 2 or more chronic diseases Psychosocial Needs: None FREEDOM OF CHOICE EXPLAINED: N/A POTENTIAL TRANSITION PLANS To Be Determined Patient comes from home,lives w/spouse,independent [employer]. Has no outside services or DME's except for O2@ 2 lpm @ hs only.Patient plans to go home in own vehicle on D/C. will bring oxygen canister at discharge.Needs to be determined. CM to continue to follow. SIGNATURE: Donna Benson RN PATIENT NAME: Sabina Flores DATE: November 30, 2017 TIME: 2:01 PM PAGER/CONTACT #: [phone] PTT,ANTICOAG THERAPY Collected: 11/30/2017 Status: F Source: [facility] 11:47 AM [facility] REPOSITORY TYPE CODE TESTS RESULT OUT OF RANGE REFERENCE UNITS LAB APTT 23.0-32.4 sec High APTT 41.6 Result Comment: Unfractionated Heparin Therapeutic Ranges: Standard Heparin Nomogram: 53 to 78 seconds (anti-Xa level of 0.3 to 0.7 U/ml) Low Dose/ACS Nomogram: 49 to 67 seconds (anti-Xa level of 0.2 to 0.5 U/ml) Stroke Treatment Nomogram: 49 to 67 seconds (anti-Xa level of 0.2 to 0.5 U/ml) Note: The APTT therapeutic range has been determined for the current lot of laboratory APTT reagent in use throughout the [facility]. Performed By: #### PTTAC #### [facility] [address], [place] [address] CONSULT PROG Observed: 11/30/2017 Status: COMPLETED Source: [facility] 9:58 AM [facility] REPOSITORY HNO ID: [id number] Author: Josie Munson Service: Vascular Medicine Author Type: Physician Type: Consults Filed: 11/30/2017 1:46 PM Note Text: VASCULAR MEDICINE INITIAL CONSULT SERVICE DATE: 11/30/2017 SERVICE TIME: 957 Requesting Provider: Yeni Foley M.D. 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 He presented to [place] [facility] ED, was HDS w/ elevated WBCs at 25k and platelets >1000K. CT showed SMV thrombosis, lactate 1.2. No evidence of acute abdomen. Patient has unable to take his hydroxyurea due to stricture. Started on heparin ggt O/N. 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 - Subclinical hypothyroidism 09/20/2017 - Tobacco use disorder 01/11/2005 - Unspecified asthma(493.90) 03/03/2011 pt not aware PAST SURGICAL HISTORY Procedure Laterality Date - COLONOSCOP W/ OR W/O BRSH SPEC 2003 Colonoscopy - COLONOSCOP W/ OR W/O BRSH SPEC 02/20/2013 Colonoscopy - COLONOSCOP W/ OR W/O BRSH SPEC 03/30/16 Colonoscopy - EGD BIOPSY SINGLE/MULTIPLE 09/21/2017 - EGD W/O OR W/BRUSH/WASH 2003 EGD - EGD W/O OR W/BRUSH/WASH 02/20/13 EGD - ESOPH W/O [facility] SPEC BALLOON DIL - Esophageal dilatation - LARYNGOSCOPY W/ BIOPSY 02/06/2014 - PARTIAL GASTRECTOMY 1970 bleeding ulcer - PAST SURGICAL HISTORY OF Left 08/29/2016 Floor of mouth resection, sialadochoplasty albuterol HFA (VENTOLIN HFA) 90 mcg/actuation inhaler Inhale 2 Puffs as instructed every 6 hours as needed for Wheezing/Shortness of Breath. anagrelide (AGRYLIN) 0.5 mg capsule TAKE ONE CAPSULE BY MOUTH TWICE DAILY ondansetron (ZOFRAN) 4 mg tablet Take 1 tablet by mouth every 6 hours as needed. mupirocin (BACTROBAN) 2 % ointment Apply 1 application to affected area twice daily. diltiazem CD (CARDIZEM CD) 120 mg 24 hr capsule Take 120 mg by mouth twice daily. famotidine (PEPCID) 20 mg tablet Take 20 mg by mouth twice daily. oxyCODONE-acetaminophen (PERCOCET) 5-325 mg tablet Take 1 tablet by mouth every 4 hours as needed. Cholecalciferol, Vitamin D3, (VITAMIN D-3) 1,000 unit chew Take 1 tablet by mouth once daily. Vit A-Vit H-[facility]hm[facility]-Manijqns (ZINC, WITH A AND C, LOZENGES) lozg Take 1 tablet by mouth once daily. Let dissolve in mouth. Chlorhexidine Gluconate (PERIDEX) 0.12 % solution Take 15 mL by mouth once daily. Swish for 30 seconds and then spit out. tiotropium-olodaterol (STIOLTO RESPIMAT) 2.5-2.5 mcg/actuation mist Inhale 2 Puffs as instructed once daily. fluticasone (FLOVENT) 110 mcg/actuation inhaler Inhale 1 Puff as instructed twice daily. allopurinol (ZYLOPRIM) 300 mg tablet Take 1 tablet by mouth once daily. This can be crushed. hydroxyurea (HYDREA) 500 mg capsule Take 1 capsule by mouth once daily. Current Facility-Administered Medications: magnesium sulfate in water 2 g in sterile water 50 ml 2 g INTRAVENOUS q 2 H carvedilol 6.25 mg tab(s) (COREG) 6.25 mg ORAL BID w MEALS albuterol HFA 90 mcg/actuation 2 Puff (PROVENTIL HFA, VENTOLIN HFA) 2 Puff INHALATION q 6 H PRN allopurinol 300 mg tab(s) (ZYLOPRIM) 300 mg ORAL DAILY cholecalciferol 1,000 Units tab(s) (VITAMIN D3) 1,000 Units ORAL DAILY famotidine 20 mg tab(s) (PEPCID) 20 mg ORAL DAILY tiotropium 18 mcg cap(s) and device for inhalation (SPIRIVA) 18 mcg INHALATION DAILY ondansetron (PF) 4 mg injection (ZOFRAN) 4 mg INTRAVENOUS q 6 H PRN acetaminophen 650 mg tab(s) (TYLENOL) 650 mg ORAL q 4 H PRN traMADol 50 mg tab(s) (ULTRAM) 50 mg ORAL q 6 H PRN 0.9% NaCl 3-5 mL 3-5 mL INTRAVENOUS q 12 H 0.9% NaCl 2-10 mL 2-10 mL INTRAVENOUS q 12 H ciprofloxacin 400 mg in D5W 200 mL (CIPRO) 400 mg INTRAVENOUS q 12 H metroNIDAZOLE 500 mg PREMIX piggyback (FLAGYL) 500 mg INTRAVENOUS q 8 H heparin iv infusion (STANDARD NOMOGRAM) 25,000 units in NaCl 0.45% 250 mL PREMIX 0-3,000 Units/hr INTRAVENOUS CONTINUOUS And heparin RATE CHANGE bolus 1,000-10,000 Units for subtherapeutic aptt results 1,000-10,000 Units INTRAVENOUS PRN dextrose 5% in LR infusion (D5-LR) 75 mL/hr INTRAVENOUS CONTINUOUS ALLERGIES No Known Allergies Objective REVIEW OF SYSTEMS: GENERAL: Fever: No Chills: No NEUROLOGICAL: Headaches: No GASTROINTESTINAL: Abdominal discomfort: No Nausea: YES Vomiting: No Difficulty swallowing: YES Stomach pain after eating: YES EXTREMITY: Edema (swelling): No Pain with walking: No MUSCULOSKELETAL: Joint pain: No Joint swelling: No Back pain: No Muscle pain or ache: No PHYSICAL EXAM: Vital Signs: BP 161/90 Pulse 99 Temp 36.9 ?C (98.5 ?F) (Oral) Resp 18 Ht 180.3 cm (5' 11) Wt 58.1 kg (128 lb 1.4 oz) SpO2 98% BMI 17.86 kg/m? 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 - CT 11/29: Dilated intrahepatic biliary ducts and CBD. Moderate - splenomegaly w/ stable calcified granulomas. Intraluminal filing defect in SMV that extends to proximal portion of the portal vein at the spinal pleural junction. - No concern for acute abdomen or mesenteric ischemia at this time. Lactates are normal. - Patient on home anagrelide and hydroxurea, unable to swallow tablets due to stricture Plan - Continue heparin ggt w/ standard nomogram titration w/ aPTT - Patient will need alf anticoagulation - Initially considered monotherapy w/ lovenox due to patients swallowing issues and esophageal stricture, after evaluation, patient has low amount of subcutaneous fat, at higher risk for intramuscular injection and hematoma formation > will start warfarin bridge - Heparin and Coumadin should overlap for a minimum of 5 days and until INR is therapeutic x 24 hrs before heparin can be discontinued. - Daily CBC/platelet, INR, aPTT in the AM - Monitor for bleeding SIGNATURE: Cristopher Rice DO PATIENT NAME: Sabina Flores DATE: November 30, 2017 TIME: 9:58 AM PAGER/CONTACT #: [phone] . [facility] STAFF PHYSICIAN NOTE OF PERSONAL INVOLVEMENT IN CARE I have reviewed the note obtained and documented by the resident and I personally participated in the perry components. I have discussed the case and management of the patient's care. The following comments revise or confirm relevant perry components of the note. 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 In CT from 11/29/17 reported SMV thrombosis extending into the proximal portion of protal vein. In setting of MDS and + JAK2 V617F, alf anticoagulation is indicated. Ideally I would favor Lovenox 1 mg/kg BID, though on evaluation patient does not have subcutaneous tissue and would increase risk of complications with Lovenox therapy. I recommend to continue IV UFH standard nomogram, please bridge to Warfarin, patient needs at least 5 days of overlap and 2 consecutive therapeutic INRs prior to discontinuation of IV unfractionated heparin. Please arrange for follow-up with anticoagulation clinic prior to discharge and follow up with vascular medicine. Thank you for involving us in the care of vascular medicine will sign off please call back with any further questions Josie Munson MD CONSULT Observed: 11/30/2017 Status: COMPLETED Source: [facility] 9:58 AM [facility] REPOSITORY HNO ID: [id number] Author: Josie Munson Service: Vascular Medicine Author Type: Physician Type: Consults Filed: 11/30/2017 1:46 PM Note Text: VASCULAR MEDICINE INITIAL CONSULT SERVICE DATE: 11/30/2017 SERVICE TIME: 957 Requesting Provider: Yeni Foley M.D. 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 He presented to [place] [facility] ED, was HDS w/ elevated WBCs at 25k and platelets >1000K. CT showed SMV thrombosis, lactate 1.2. No evidence of acute abdomen. Patient has unable to take his hydroxyurea due to stricture. Started on heparin ggt O/N. 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 - Subclinical hypothyroidism 09/20/2017 - Tobacco use disorder 01/11/2005 - Unspecified asthma(493.90) 03/03/2011 pt not aware PAST SURGICAL HISTORY Procedure Laterality Date - COLONOSCOP W/ OR W/O BRSH SPEC 2003 Colonoscopy - COLONOSCOP W/ OR W/O BRSH SPEC 02/20/2013 Colonoscopy - COLONOSCOP W/ OR W/O BRSH SPEC 03/30/16 Colonoscopy - EGD BIOPSY SINGLE/MULTIPLE 09/21/2017 - EGD W/O OR W/BRUSH/WASH 2003 EGD - EGD W/O OR W/BRUSH/WASH 02/20/13 EGD - ESOPH W/O [facility] SPEC BALLOON DIL 12-1-2003 Esophageal dilatation - LARYNGOSCOPY W/ BIOPSY 02/06/2014 - PARTIAL GASTRECTOMY 1970 bleeding ulcer - PAST SURGICAL HISTORY OF Left 08/29/2016 Floor of mouth resection, sialadochoplasty albuterol HFA (VENTOLIN HFA) 90 mcg/actuation inhaler Inhale 2 Puffs as instructed every 6 hours as needed for Wheezing/Shortness of Breath. anagrelide (AGRYLIN) 0.5 mg capsule TAKE ONE CAPSULE BY MOUTH TWICE DAILY ondansetron (ZOFRAN) 4 mg tablet Take 1 tablet by mouth every 6 hours as needed. mupirocin (BACTROBAN) 2 % ointment Apply 1 application to affected area twice daily. diltiazem CD (CARDIZEM CD) 120 mg 24 hr capsule Take 120 mg by mouth twice daily. famotidine (PEPCID) 20 mg tablet Take 20 mg by mouth twice daily. oxyCODONE-acetaminophen (PERCOCET) 5-325 mg tablet Take 1 tablet by mouth every 4 hours as needed. Cholecalciferol, Vitamin D3, (VITAMIN D-3) 1,000 unit chew Take 1 tablet by mouth once daily. Vit A-Vit D-Wgkj-Xqiitbjk (ZINC, WITH A AND C, LOZENGES) lozg Take 1 tablet by mouth once daily. Let dissolve in mouth. Chlorhexidine Gluconate (PERIDEX) 0.12 % solution Take 15 mL by mouth once daily. Swish for 30 seconds and then spit out. tiotropium-olodaterol (STIOLTO RESPIMAT) 2.5-2.5 mcg/actuation mist Inhale 2 Puffs as instructed once daily. fluticasone (FLOVENT) 110 mcg/actuation inhaler Inhale 1 Puff as instructed twice daily. allopurinol (ZYLOPRIM) 300 mg tablet Take 1 tablet by mouth once daily. This can be crushed. hydroxyurea (HYDREA) 500 mg capsule Take 1 capsule by mouth once daily. Current Facility-Administered Medications: magnesium sulfate in water 2 g in sterile water 50 ml 2 g INTRAVENOUS q 2 H carvedilol 6.25 mg tab(s) (COREG) 6.25 mg ORAL BID w MEALS albuterol HFA 90 mcg/actuation 2 Puff (PROVENTIL HFA, VENTOLIN HFA) 2 Puff INHALATION q 6 H PRN allopurinol 300 mg tab(s) (ZYLOPRIM) 300 mg ORAL DAILY cholecalciferol 1,000 Units tab(s) (VITAMIN D3) 1,000 Units ORAL DAILY famotidine 20 mg tab(s) (PEPCID) 20 mg ORAL DAILY tiotropium 18 mcg cap(s) and device for inhalation (SPIRIVA) 18 mcg INHALATION DAILY ondansetron (PF) 4 mg injection (ZOFRAN) 4 mg INTRAVENOUS q 6 H PRN acetaminophen 650 mg tab(s) (TYLENOL) 650 mg ORAL q 4 H PRN traMADol 50 mg tab(s) (ULTRAM) 50 mg ORAL q 6 H PRN 0.9% NaCl 3-5 mL 3-5 mL INTRAVENOUS q 12 H 0.9% NaCl 2-10 mL 2-10 mL INTRAVENOUS q 12 H ciprofloxacin 400 mg in D5W 200 mL (CIPRO) 400 mg INTRAVENOUS q 12 H metroNIDAZOLE 500 mg PREMIX piggyback (FLAGYL) 500 mg INTRAVENOUS q 8 H heparin iv infusion (STANDARD NOMOGRAM) 25,000 units in NaCl 0.45% 250 mL PREMIX 0-3,000 Units/hr INTRAVENOUS CONTINUOUS And heparin RATE CHANGE bolus 1,000-10,000 Units for subtherapeutic aptt results 1,000-10,000 Units INTRAVENOUS PRN dextrose 5% in LR infusion (D5-LR) 75 mL/hr INTRAVENOUS CONTINUOUS ALLERGIES No Known Allergies Objective REVIEW OF SYSTEMS: GENERAL: Fever: No Chills: No NEUROLOGICAL: Headaches: No GASTROINTESTINAL: Abdominal discomfort: No Nausea: YES Vomiting: No Difficulty swallowing: YES Stomach pain after eating: YES EXTREMITY: Edema (swelling): No Pain with walking: No MUSCULOSKELETAL: Joint pain: No Joint swelling: No Back pain: No Muscle pain or ache: No PHYSICAL EXAM: Vital Signs: BP 161/90 Pulse 99 Temp 36.9 ?C (98.5 ?F) (Oral) Resp 18 Ht 180.3 cm (5' 11) Wt 58.1 kg (128 lb 1.4 oz) SpO2 98% BMI 17.86 kg/m? 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 - CT 11/29: Dilated intrahepatic biliary ducts and CBD. Moderate - splenomegaly w/ stable calcified granulomas. Intraluminal filing defect in SMV that extends to proximal portion of the portal vein at the spinal pleural junction. - No concern for acute abdomen or mesenteric ischemia at this time. Lactates are normal. - Patient on home anagrelide and hydroxurea, unable to swallow tablets due to stricture Plan - Continue heparin ggt w/ standard nomogram titration w/ aPTT - Patient will need long term care administrator anticoagulation - Initially considered monotherapy w/ lovenox due to patients swallowing issues and esophageal stricture, after evaluation, patient has low amount of subcutaneous fat, at higher risk for intramuscular injection and hematoma formation > will start warfarin bridge - Heparin and Coumadin should overlap for a minimum of 5 days and until INR is therapeutic x 24 hrs before heparin can be discontinued. - Daily CBC/platelet, INR, aPTT in the AM - Monitor for bleeding SIGNATURE: Cristopher Rice DO PATIENT NAME: Sabina Flores DATE: November 30, 2017 TIME: 9:58 AM PAGER/CONTACT #: [phone] . [facility] STAFF PHYSICIAN NOTE OF PERSONAL INVOLVEMENT IN CARE I have reviewed the note obtained and documented by the resident and I personally participated in the perry components. I have discussed the case and management of the patient's care. The following comments revise or confirm relevant perry components of the note. 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 In CT from 11/29/17 reported SMV thrombosis extending into the proximal portion of protal vein. In setting of MDS and + JAK2 V617F, alf anticoagulation is indicated. Ideally I would favor Lovenox 1 mg/kg BID, though on evaluation patient does not have subcutaneous tissue and would increase risk of complications with Lovenox therapy. I recommend to continue IV UFH standard nomogram, please bridge to Warfarin, patient needs at least 5 days of overlap and 2 consecutive therapeutic INRs prior to discontinuation of IV unfractionated heparin. Please arrange for follow-up with anticoagulation clinic prior to discharge and follow up with vascular medicine. Thank you for involving us in the care of vascular medicine will sign off please call back with any further questions Josie Munson MD CONSULT Observed: 11/30/2017 Status: COMPLETED Source: [facility] 8:52 AM [facility] REPOSITORY O ID: [id number] Author: Gudelia Dunbar Service: Hematology/Oncology Author Type: Physician Type: Consults Filed: 11/30/2017 8:36 PM Note Text: [facility] [place] [facility] - INITIAL CONSULT DATE OF SERVICE: 11/30/2017 TIME OF SERVICE: 8:53 AM PRIMARY TEAM: Catalino Gomez Reason for consult: Patient with h/o of MPN with new SMV thrombosis History of Present Illness: Mr. 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 He has not been taking his hydroxyurea due to dysphagia. He had an EGD with dilation on 11/27. He has history of remote bleeding of gastric ulcer 50 years ago. He was started on anagrelide 0.5mg BID on 10/11/2017. He follows with produce service team member Dr. Aguillon at [place]. He was initially diagnosed with myeloproliferative d/o 09/18/2017 when he was admitted to [facility] for dysphagia, and found to have PLT of 1.3 million, was started on hydroxyurea at that time until he followed up with Dr. Aguillon on 10/11/2017. Currently, plt are 813, pt complains of some LUQ abdominal pain. No N/V. No confusion or change in mental status. No fevers or chills in the last 1-2 weeks or at time of abdominal pain. ROS: See HPI. No c/o weight loss, malaise, fevers, new/severe headaches, changes in vision/hearing, nosebleeds or other nasal problems, neck lumps/swelling/goiter/pain, cough/wheezing/SOB, chest pain, leg swelling, or palpitations. 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 - Subclinical hypothyroidism 09/20/2017 - Tobacco use disorder 01/11/2005 - Unspecified asthma(493.90) 03/03/2011 pt not aware PAST SURGICAL HISTORY PAST SURGICAL HISTORY Procedure Laterality Date - COLONOSCOP W/ OR W/O BRSH SPEC 2003 Colonoscopy - COLONOSCOP W/ OR W/O BRSH SPEC 02/20/2013 Colonoscopy - COLONOSCOP W/ OR W/O BRSH SPEC 03/30/16 Colonoscopy - EGD BIOPSY SINGLE/MULTIPLE 09/21/2017 - EGD W/O OR W/BRUSH/WASH 2003 EGD - EGD W/O OR W/BRUSH/WASH 02/20/13 EGD - ESOPH W/O [facility] SPEC BALLOON DIL 12-1-2003 Esophageal dilatation - LARYNGOSCOPY W/ BIOPSY 02/06/2014 - PARTIAL GASTRECTOMY 1970 bleeding ulcer - PAST SURGICAL HISTORY OF Left 08/29/2016 Floor of mouth resection, sialadochoplasty ALLERGIES ALLERGIES No Known Allergies MEDICATIONS Current hospital medications: magnesium sulfate in water 2 g in sterile water 50 ml 2 g INTRAVENOUS q 2 H carvedilol 6.25 mg tab(s) (COREG) 6.25 mg ORAL BID w MEALS albuterol HFA 90 mcg/actuation 2 Puff (PROVENTIL HFA, VENTOLIN HFA) 2 Puff INHALATION q 6 H PRN allopurinol 300 mg tab(s) (ZYLOPRIM) 300 mg ORAL DAILY cholecalciferol 1,000 Units tab(s) (VITAMIN D3) 1,000 Units ORAL DAILY famotidine 20 mg tab(s) (PEPCID) 20 mg ORAL DAILY tiotropium 18 mcg cap(s) and device for inhalation (SPIRIVA) 18 mcg INHALATION DAILY ondansetron (PF) 4 mg injection (ZOFRAN) 4 mg INTRAVENOUS q 6 H PRN acetaminophen 650 mg tab(s) (TYLENOL) 650 mg ORAL q 4 H PRN traMADol 50 mg tab(s) (ULTRAM) 50 mg ORAL q 6 H PRN 0.9% NaCl 3-5 mL 3-5 mL INTRAVENOUS q 12 H 0.9% NaCl 2-10 mL 2-10 mL INTRAVENOUS q 12 H ciprofloxacin 400 mg in D5W 200 mL (CIPRO) 400 mg INTRAVENOUS q 12 H metroNIDAZOLE 500 mg PREMIX piggyback (FLAGYL) 500 mg INTRAVENOUS q 8 H heparin iv infusion (STANDARD NOMOGRAM) 25,000 units in NaCl 0.45% 250 mL PREMIX 0-3,000 Units/hr INTRAVENOUS CONTINUOUS heparin RATE CHANGE bolus 1,000-10,000 Units for subtherapeutic aptt results 1,000-10,000 Units INTRAVENOUS PRN dextrose 5% in LR infusion (D5-LR) 75 mL/hr INTRAVENOUS CONTINUOUS FAMILY HISTORY FAMILY HISTORY Problem Relation Age of Onset - Cancer Brother lung cancer - Cancer Brother bone cancer - Cancer Brother brain tumor or cancer - Coronary Artery Disease Father age 64, [place] - None Mother age 95 SOCIAL HISTORY Social History Marital status: Spouse name: Years of education: Number of children: Social History Main Topics Smoking status: Former Smoker Packs/day: 2.00 Years: 52.00 Types: Cigarettes Quit date: 09/01/2013 Smokeless tobacco: Never Used Alcohol use: Yes 6.0 oz/week Cans of Beer (12oz): 4 per week Drug use: No Sexual activity: No PHYSICAL EXAMINATION: BP 161/90 Pulse 99 Temp 36.9 ?C (98.5 ?F) (Oral) Resp 18 Ht 180.3 cm (5' 11) Wt 58.1 kg (128 lb 1.4 oz) SpO2 98% BMI 17.86 kg/m? Intake/Output Summary (Last 24 hours) at 11/30/17 0853 Last data filed at 11/30/17 0600 Gross per 24 hour Intake 1125 ml Output 1850 ml Net -725 ml General appearance: Thin elderly male, in no acute distress. AANDO x 3 Skin: Skin color, texture, turgor normal, no suspicious rashes or lesions HEENT: PERRL, EOMI, sclera non-icteric. Teeth absent. Cardiac: RRR without murmur, gallop, or rubs. No ectopy. Resp: clear to auscultation bilaterally, no wheezes/crackles, rhonchi Abd: NABS. Soft, non-tender. No hepatosplenomegaly. Ext: No LE edema, moves all extremities with no apparent weakness Lymph Nodes: No palpable cervical, axillary lymphadenopathy LABORATORY STUDIES: CBC: Recent Labs 11/30/17 0516 11/29/17 2159 WBC 20.37* 23.46* HB 12.4* 11.8* HCT 42.5 40.4 PLT 813* 997* MCV 66.7* 66.9* RDWCV 20.3* 20.5* NEUTP -- 86.0 ABSNEUT -- 20.18* LYMPHP -- 3.0 MONOP -- 3.0 EODINP -- 3.0 BASOP -- 5.0 ABSMONO -- 0.70 ABSEOSIN -- 0.70* ABSBASO -- 1.17* COAG: Recent Labs 11/30/17 0302 11/29/172158 APTT 36.0* 80.6* PTSEC -- 13.0 INR -- 1.3 Metabolic Panel: Recent Labs 11/30/17 0516 11/29/172158 GLUC 96 95 NA 141 139 K 4.5 3.3* CHLOR 108* 99 CO2 23 22 ANION 10 18 BUN 5* 6* CREAT 0.69* 0.70* ALB -- 3.7* TPROT -- 6.0* CA 9.3 8.8 MG -- 1.4* HEPATIC: Recent Labs 11/29/172158 ALKPHOS 122* ALT 14 AST 23 TBILI 1.0 Peripheral Smear: platelet clumping, thick smear, hypersegmented PMNs ASSESSMENT AND RECOMMENDATIONS: Mr. Flores is a 77 year old year old male with h/o MPN (JAK2 V617F+ on anagrelide 0.5mg BID who presents with acute SMV thrombosis, etiology likely 2/2 myeloproliferative disorder, increased risk factors of JAK2+ mutation, male gender, history of smoking. DDx includes HIT, although less likely as no heparin exposure in last 30 days. Recommendations: 1. Begin Aspirin 81mg 2. Begin hydroxyurea 500mg daily for treatment of MPN and will minimize risk of another thrombotic event, if patient can swallow pill (I ordered this) 3. Do not resume anagrelide 4. Resume anticoagulation with heparin, can transition to lovenox or oral AC, per recs Patient seen and discussed with Hematology staff Dr. Dunbar for final recommendations. Thank you very much for inviting us to participate in the care of this patient, we will continue to follow. Romana oGnzalez MD November 30, 2017 8:53 AM Hematology and Medical Oncology Fellow Pager: [phone] ATTENDING ATTESTATION: I have reviewed the data, obtained PMH, PFSH, and ROS, seen and examined the patient to confirm the findings and plan as outlined by Dr. Gonzalez except as specifically stated. 77 yo with JAK2+ MPN dx this August 2017. Couldn't take hydrea due to dysphagia but has since had esophagus dilated. Developed abd pain; SMV thrombus positive. Exam: thin elderly male Edentulous Clear lungs RRR abd with easily palpable spleen on left Impression: JAK2+ MPN - was on anagrelide with gradual lowering of platelet count, but now with SMV thrombus. Needs anticoagulation plus antiplatelet agent. He was supposed to have a bone marrow biopsy this month, but now that will be put on some hold due to the need for full-dose anticoagulation. Possible myelofibrosis still exists. Plan: Agree with above recs Will f/u with you Gudelia Dunbar MD, FACP Staff [employer] Assessor Pager [phone] Date of Service 11/30/2017 Time of Service 8:27 PM After 5pm and weekends, please page [phone]. XR ABDOMEN 1V SUPINE Observed: 11/30/2017 Status: F Source: [facility] 7:25 AM [facility] REPOSITORY * * *Final Report* * * DATE OF EXAM: Nov 30 2017 7:25AM MATTHEW [id number] - XR ABDOMEN 1V SUPINE / PROCEDURE REASON: Abd pain, unspecified * * * * Physician Interpretation * * * * ABDOMEN PORTABLE HISTORY: Abdomen pain. TECHNIQUE: Single View, Supine Abdomen; Number of Images: 1 COMPARISON: CT abdomen and pelvis 12/23/2009 RESULT: No gas-filled, dilated small bowel loops. Gas throughout nondilated colon. Residual contrast in the cecum and ascending colon. Calcified splenic granulomata. Multilevel thoracolumbar spine degenerative arthropathy. IMPRESSION: NO DILATED BOWEL. NO ACUTE FINDINGS. Lining Scrubber: OTIS Transcribe Date/Time: Nov 30 2017 8:42A Dictated by : MICHA NOLAN This examination was interpreted and the report reviewed and electronically signed by: SABINA GAN DO on Nov 30 2017 8:56AM EST [id number] BASIC METABOLIC PANL Collected: 11/30/2017 Status: F Source: [facility] 5:16 AM [facility] REPOSITORY TYPE CODE TESTS RESULT OUT OF REFERENCE UNITS RANGE LAB GLU 74-99 mg/dL Glucose 96 Result Comment: The [place] Diabetes Association (ADA) provides guidance for cutoff values for fasting glucose and random glucose. The ADA defines fasting as no caloric intake for at least 8 hours. Fas ting plasma glucose results between 100 to 125 mg/dL indicate increased risk for diabetes (prediabetes). Fasting plasma glucose results greater than or equal to 126 mg/dL meet the criteria for diagnosis of diabetes. In the absence of unequivocal hyperglycemia, results should be confirmed by repeat testing. In a patient with classic symptoms of hyperglycemia or hyperglycemic crisis, random plasma glucose results greater than or equal to 200 mg/dL meet the criteria for diagnosis of diabetes. Reference: Standards of Medical Care in Diabetes 2016, [place] [employer] Association. Diabetes Care. 2016.39(Suppl 1). LAB BUN 9-24 mg/dL Low BUN 5 LAB CRET 0.73-1.22 mg/dL Low Creatinine 0.69 LAB NA 136-144 mmol/L Sodium 141 LAB K 3.7-5.1 mmol/L Potassium 4.5 LAB CL 97-105 mmol/L Chloride High 108 LAB CO2 22-30 mmol/L CO2 23 LAB AGAP 9-18 mmol/L Anion Gap 10 LAB CA 8.5-10.2 mg/dL Calcium, Total 9.3 LAB GFRAA eGFR- Amer. >60 LAB GFRNAA . eGFR-All Other Races >60 Result Comment: eGFR (Estimated GFR) Units of measure: mL/min/1.73 meters squared eGFR is derived from the reexpressed MDRD Study equation using the following parameters: serum creatinine, age, gender and race. The creatinine assay has been calibrated to be traceable to IDMS. An eGFR <60 mL/min/1.73m2 for >3 months is consistent with chronic kidney disease. Refer to KDOQI guidelines for clinical interpretation. In patients with unstable renal function, e.g. those with acute kidney injury, the eGFR may not accurately reflect actual GFR. Performed By: #### BMP, URIC, LACT, CBCDIF #### [facility] [address] [place], [place] [address] URIC ACID Collected: 11/30/2017 Status: F Source: [facility] 5:16 AM [facility] REPOSITORY TYPE CODE TESTS RESULT OUT OF RANGE REFERENCE UNITS LAB URIC 4.0-8.1 mg/dL Uric Acid 4.6 Performed By: #### BMP, URIC, LACT, CBCDIF #### [facility] [address] [place], [place] [address] LACTATE Collected: 11/30/2017 Status: F Source: [facility] 5:16 AM [facility] REPOSITORY TYPE CODE TESTS RESULT OUT OF REFERENCE UNITS RANGE LAB LACT 0.5-2.2 mmol/L Lactate 0.8 Performed By: #### BMP, URIC, LACT, CBCDIF #### [facility] [address] [place], [place] [address] CBC AND DIFFERENTIAL Collected: 11/30/2017 Status: F Source: [facility] 5:16 AM [facility] REPOSITORY TYPE CODE TESTS RESULT OUT OF REFERENCE UNITS RANGE LAB WBC 3.70-11.00 k/uL WBC High 20.37 LAB RBC 4.20-6.00 m/uL RBC High 6.37 LAB HGB 13.0-17.0 g/dL Hemoglobin Low 12.4 LAB HCT 39.0-51.0 % Hematocrit 42.5 LAB MCV 80.0-100.0 fL MCV Low 66.7 LAB MCH 26.0-34.0 pG MCH Low 19.5 LAB MCHC 30.5-36.0 g/dL MCHC Low 29.2 LAB RDWCV 11.5-15.0 % RDW-CV High 20.3 LAB PLTCT 150-400 k/uL Platelet Count High 813 LAB MPV 9.0-12.7 fL MPV 9.2 LAB ANEUT % Neut% 89.6 LAB AANEUT 1.45-7.50 k/uL Abs Neut High 18.25 LAB ALYMP % Lymph% 2.6 LAB AALYMP 1.00-4.00 k/uL Abs Lymph Low 0.53 LAB AMONO % Preston% 2.6 LAB AAMONO <0.87 k/uL Abs Preston 0.53 LAB AEOS % Eosin% 0.9 LAB AAEOS <0.46 k/uL Abs Eosin 0.18 LAB ABASO % Baso% 4.3 LAB AABASO <0.11 k/uL Abs Baso High 0.88 LAB ANIIMI Anisocytosis Present LAB OVAIMI Ovalocytes Few LAB POLIMI Polychromasia Slight LAB RCFIMI RBC Fragments Few LAB PLTEST Platelet Estimate Platelet estimate increased LAB DTYP DTYPE Manual Diff Performed By: #### BMP, URIC, LACT, CBCDIF #### [place] [address] PTT,ANTICOAG THERAPY Collected: 11/30/2017 Status: F Source: [facility] 3:02 AM [facility] REPOSITORY TYPE CODE TESTS RESULT OUT OF RANGE REFERENCE UNITS LAB APTT 23.0-32.4 sec High APTT 36.0 Result Comment: Unfractionated Heparin Therapeutic Ranges: Standard Heparin Nomogram: 53 to 78 seconds (anti-Xa level of 0.3 to 0.7 U/ml) Low Dose/ACS Nomogram: 49 to 67 seconds (anti-Xa level of 0.2 to 0.5 U/ml) Stroke Treatment Nomogram: 49 to 67 seconds (anti-Xa level of 0.2 to 0.5 U/ml) Note: The APTT therapeutic range has been determined for the current lot of laboratory APTT reagent in use throughout the [facility]. Performed By: #### PTTAC #### [place] [address] LACTATE Collected: 11/29/2017 Status: F Source: [facility] 9:59 PM [facility] REPOSITORY TYPE CODE TESTS RESULT OUT OF REFERENCE UNITS RANGE LAB LACT 0.5-2.2 mmol/L Lactate 1.0 Performed By: #### LACT #### [place] [address] APTT Collected: 11/29/2017 Status: F Source: [facility] 9:59 PM [facility] REPOSITORY TYPE CODE TESTS RESULT OUT OF RANGE REFERENCE UNITS LAB APTT 23.0-32.4 sec High APTT 80.6 Result Comment: Unfractionated Heparin Therapeutic Ranges: Standard Heparin Nomogram: 53 to 78 seconds (anti-Xa level of 0.3 to 0.7 U/ml) Low Dose/ACS Nomogram: 49 to 67 seconds (anti-Xa level of 0.2 to 0.5 U/ml) Stroke Treatment Nomogram: 49 to 67 seconds (anti-Xa level of 0.2 to 0.5 U/ml) Note: The APTT therapeutic range has been determined for the current lot of laboratory APTT reagent in use throughout the [facility]. Result rechecked. Sample checked for a clot. Performed By: #### PTT, PT, CBCDIF #### [facility] [address] [place], [place] [address] PROTIME Collected: 11/29/2017 Status: F Source: [facility] 9:59 PM [facility] REPOSITORY TYPE CODE TESTS RESULT OUT OF RANGE REFERENCE UNITS LAB PSEC 9.7-13.0 sec PT Sec 13.0 Result Comment: Result rechecked. Sample checked for a clot. LAB INR 0.9-1.3 PT INR 1.3 Result Comment: Vitamin K Antagonist (VKA) Therapeutic Range: INR 2 to 3 (Target INR of 2.5) Note: For patients treated with VKA drugs, such as warfarin, the [place] [employer] 2012 Guideline recommends a therapeutic INR range of 2 to 3 (target INR of 2.5). This recommendation includes high-risk patients with antiphospholipid syndrome with previous arterial or venous thromboembolism, current-generation mechanical or bioprosthetic aortic heart valve replacement. Note: Patients with mechanical aortic valve replacement and additional risk factors for thromboembolic events (atrial fibrillation, previous thromboembolism, LV dysfunction, hypercoagulable conditions) or an older generation mechanical AVR (i.e., ball in-Cage) or any mechanical MVR should have a INR therapeutic range of 2.5 to 3.5 (target INR of 3). Belkys KELLER, et al. Chest 2012, 141:7S-47S Caridad MARTINEZ, et al. [facility] 2017, 70: 252-289 Result rechecked. Sample checked for a clot. Performed By: #### PTT, PT, CBCDIF #### [facility] [address] [place], [place] [address] CBC AND DIFFERENTIAL Collected: 11/29/2017 Status: F Source: [facility] 9:59 PM [facility] REPOSITORY TYPE CODE TESTS RESULT OUT OF REFERENCE UNITS RANGE LAB WBC 3.70-11.00 k/uL WBC High 23.46 LAB RBC 4.20-6.00 m/uL RBC High 6.04 LAB HGB 13.0-17.0 g/dL Hemoglobin Low 11.8 LAB HCT 39.0-51.0 % Hematocrit 40.4 LAB MCV 80.0-100.0 fL MCV Low 66.9 LAB MCH 26.0-34.0 pG MCH Low 19.5 LAB MCHC 30.5-36.0 g/dL MCHC Low 29.2 LAB RDWCV 11.5-15.0 % RDW-CV High 20.5 LAB PLTCT 150-400 k/uL Platelet Count High 997 LAB MPV 9.0-12.7 fL MPV 9.1 LAB ANEUT % Neut% 86.0 LAB AANEUT 1.45-7.50 k/uL Abs Neut High 20.18 LAB ALYMP % Lymph% 3.0 LAB AALYMP 1.00-4.00 k/uL Abs Lymph Low 0.70 LAB AMONO % Preston% 3.0 LAB AAMONO <0.87 k/uL Abs Preston 0.70 LAB AEOS % Eosin% 3.0 LAB AAEOS <0.46 k/uL Abs Eosin High 0.70 LAB ABASO % Baso% 5.0 LAB AABASO <0.11 k/uL Abs Baso High 1.17 LAB CBCCOM Comment Less than optimal volume of specimen received and tested. LAB ABIMMG k/uL ANC(includeSEG+BAN 20.18 D) LAB ANIIMI Anisocytosis Present LAB OVAIMI Ovalocytes Few LAB POLIMI Polychromasia Slight LAB RCFIMI RBC Fragments Few LAB PLTEST Platelet Estimate Platelet estimate increased LAB DTYP DTYPE Manual Diff Performed By: #### PTT, PT, CBCDIF #### [facility] [address] [place], [place] [address] COMP METABOLIC PANEL Collected: 11/29/2017 Status: F Source: [facility] 9:59 PM [facility] REPOSITORY TYPE CODE TESTS RESULT OUT OF REFERENCE UNITS RANGE LAB TP 6.3-8.0 g/dL Low Protein, Total 6.0 LAB ALB 3.9-4.9 g/dL Low Albumin 3.7 LAB CA 8.5-10.2 mg/dL Calcium, Total 8.8 LAB TBIL 0.2-1.3 mg/dL Bilirubin, Total 1.0 LAB ALKP 36-108 U/L Alkaline High Phosphatase 122 LAB AST 14-40 U/L AST 23 LAB GLU 74-99 mg/dL Glucose 95 Result Comment: The [place] Diabetes Association (ADA) provides guidance for cutoff values for fasting glucose and random glucose. The ADA defines fasting as no caloric intake for at least 8 hours. Fas ting plasma glucose results between 100 to 125 mg/dL indicate increased risk for diabetes (prediabetes). Fasting plasma glucose results greater than or equal to 126 mg/dL meet the criteria for diagnosis of diabetes. In the absence of unequivocal hyperglycemia, results should be confirmed by repeat testing. In a patient with classic symptoms of hyperglycemia or hyperglycemic crisis, random plasma glucose results greater than or equal to 200 mg/dL meet the criteria for diagnosis of diabetes. Reference: Standards of Medical Care in Diabetes 2016, [place] [employer]. Diabetes Care. 2016.39(Suppl 1). LAB BUN 9-24 mg/dL BUN Low 6 LAB CRET 0.73-1.22 mg/dL Creatinine Low 0.70 LAB NA 136-144 mmol/L Sodium 139 LAB K 3.7-5.1 mmol/L Potassium Low 3.3 LAB CL 97-105 mmol/L Chloride 99 LAB CO2 22-30 mmol/L CO2 22 LAB AGAP 9-18 mmol/L Anion Gap 18 LAB ALT 10-54 U/L ALT 14 LAB GFRAA eGFR- Amer. >60 LAB GFRNAA . eGFR-All Other Races >60 Result Comment: eGFR (Estimated GFR) Units of measure: mL/min/1.73 meters squared eGFR is derived from the reexpressed MDRD Study equation using the following parameters: serum creatinine, age, gender and race. The creatinine assay has been calibrated to be traceable to IDMS. An eGFR <60 mL/min/1.73m2 for >3 months is consistent with chronic kidney disease. Refer to KDOQI guidelines for clinical interpretation. In patients with unstable renal function, e.g. those with acute kidney injury, the eGFR may not accurately reflect actual GFR. Performed By: #### CMP, MG1, PHOS #### [facility] Proenza Schouer [address] [place] [address] MAGNESIUM Collected: 11/29/2017 Status: F Source: GWINN 9:59 PM [facility] REPOSITORY TYPE CODE TESTS RESULT OUT OF REFERENCE UNITS RANGE LAB MG 1.7-2.3 mg/dL Low Magnesium 1.4 Performed By: #### CMP, MG1, PHOS #### [facility] [address] [place], [place] [address] PHOSPHORUS Collected: 11/29/2017 Status: F Source: GWINN 9:59 PM [facility] REPOSITORY TYPE CODE TESTS RESULT OUT OF REFERENCE UNITS RANGE LAB PHOS 2.7-4.8 mg/dL Phosphorus 2.8 Performed By: #### CMP, MG1, PHOS #### [facility] [address] [place], [place] [address] NURSING PROG Observed: 11/29/2017 Status: COMPLETED Source: GWINN 8:35 PM [facility] REPOSITORY HNO ID: [id number] Author: Alicia (Rn) TL Pagan Service: Nursing Author Type: Registered Nurse Type: Nursing Progress Note Filed: 11/30/2017 6:51 AM Note Text: Problem(s) / Intervention(s) PATIENT NAME: Sabina Flores The patient complained of pain. The following intervention(s) were initiated :the following medication was given: Tramadol PRN dose and the patient Repositioned self for comfort. The following observation(s) were made: patient reported relief and patient appears improved. Safety measures maintained. Siderails up x 3 to assist w/ bed mobility and for support. Bed in lowest possible position, locked. Call light placed within pt's reach.Was reassured. 0040 KCL IVPB strated for K level =3.3. 0600 NPO maintained except ice and meds. Was reassured. 0650 Message texted: h80/24 Flores , BP 161./90,89, refused Cardizem, can't open the capsule, crushed per pharmacy, can you replace with another med? --- TNX-- lauren#[id number] This note was completed by: Alicia Pagan RN HISTORY PHYSICAL Observed: 11/29/2017 Status: COMPLETED Source: GWINN 7:06 PM [facility] REPOSITORY HNO ID: [id number] Author: Yeni Foley MD Service: General Internal Medicine Author Type: Physician Type: HANDP Filed: 11/30/2017 3:39 PM Note Text: INITIAL HANDP ? Date: November 29, 2017 Patient: Sabina Flores Medical Record: [id number] Primary Care Physician: Varun Wang MD ? ? Sabina Flores is a 77 year old male who presents with abdominal pain from [facility]. Patient had a 2cm esophageal dilation on 11/27/17 at [facility] due to dysphagia 2/2 neck radiation of past laryngeal cancer. Patient endorsed LUQ burning pain starting yesterday in the evening two hours post-prandial. Patient had associated nausea/vomiting. Patient tried oxycodone for pain with minimal relief. Denies fever, CP, hematemesis, diarrhea. Patient had a previous episode of pancreatitis in April and drinks alcohol (last beer that night)/previous smoker (quit 4 years ago). Pain continued overnight and he was admitted to OSH in the morning. ? At OSH, labs showed WBC 25.2, Hgb 12.4, Plt 1034, Lactic Acid 1.2, Lipase 116, and CT Abd/Pelv w/ contrast showed superior mesenteric venous thrombosis, retroperitoneal lymphadenopathy. Patient was transferred to [facility] for continued medical management. ? 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 ? Review of the Systems: (positives in bold, see HPI) Constitutional: fevers, chills, night sweats, fatigue, loss of appetite Head: headache, seizures Ears: hearing loss, tinnitus, vertigo Eyes: blurry vision, amaurosis fugax, diplopia, dry eyes Mouth: oral ulcers, dry mouth, sore throat Nose: nasal congestion, sinus congestion, rhinorrhea, epistaxis, nasal ulcers Cardio: chest pain, palpitations, leg swelling, orthopnea, lightheadedness, syncope Pulmonary: dyspnea, cough, wheezing, hemoptysis GI: nausea, vomiting, diarrhea, constipation, abdominal pain, hematochezia : dysuria, frequency, urgency, hematuria, foamy urine MSK: arthralgias, myalgias, lumbago, dormitory keeper stiffness, pain while sleeping Neuro: one-sided weakness, paresthesias Endocrine: unintentional weight loss, weight gain, polyuria, polydipsia Sleep: unrefreshing sleep, difficulty falling asleep, difficulty staying asleep, snoring Psych: emotional lability, depression, anxiety, panic attacks, suicidal ideation ? ALLERGIES ALLERGIES No Known Allergies ? PAST MEDICAL HISTORY PAST MEDICAL HISTORY Diagnosis Date - ABNORMAL LIVER FUNCTION STUDY 01/11/2005 ? Alkaline phosphatemia - Body mass index (BMI) less than or equal to 19 in adult 03/28/2017 - COPD (chronic obstructive pulmonary disease) (HCC) 01/13/2013 - DIVERTICULOSIS OF COLON W/O BLEED 01/11/2005 - Dysphagia 09/18/2017 - Esophageal stricture 01/11/2005 ? T2N0M0 SCC of the subglottic larynx s/p radiation therapy completed April 2014, and SCCIS of the left floor of mouth who is transferred from [facility] for dysphagia due to proximal esophageal stricture and dyspnea following EGD on 09/14/2017. - Former tobacco use 09/18/2017 - Interstitial lung disease (HCC) 02/09/2011 ? Ct chest 01/2011 - Iron deficiency anemias 01/11/2005 - Low serum alkaline phosphatase 09/20/2017 - PEPTIC ULCER NOS 01/11/2005 - PERS HX OF ALCOHOLISM 01/11/2005 - Polycythemia 05/21/2013 - S/P partial gastrectomy 09/18/2017 - Severe protein-calorie malnutrition (HCC) 11/20/2016 - Shortness of breath 09/18/2017 - Squamous cell carcinoma of larynx (HCC) 02/08/2017 - Subclinical hypothyroidism 09/20/2017 - Tobacco use disorder 01/11/2005 - Unspecified asthma(493.90) 03/03/2011 ? pt not aware ? ? Prior to Admission: CURRENT MEDICATIONS ? albuterol HFA (VENTOLIN HFA) 90 mcg/actuation inhaler Inhale 2 Puffs as instructed every 6 hours as needed for Wheezing/Shortness of Breath. anagrelide (AGRYLIN) 0.5 mg capsule TAKE ONE CAPSULE BY MOUTH TWICE DAILY ondansetron (ZOFRAN) 4 mg tablet Take 1 tablet by mouth every 6 hours as needed. mupirocin (BACTROBAN) 2 % ointment Apply 1 application to affected area twice daily. diltiazem CD (CARDIZEM CD) 120 mg 24 hr capsule Take 120 mg by mouth twice daily. famotidine (PEPCID) 20 mg tablet Take 20 mg by mouth twice daily. oxyCODONE-acetaminophen (PERCOCET) 5-325 mg tablet Take 1 tablet by mouth every 4 hours as needed. Cholecalciferol, Vitamin D3, (VITAMIN D-3) 1,000 unit chew Take 1 tablet by mouth once daily. Vit A-Vit Z-Fvrz-Kpxjgjjg (ZINC, WITH A AND C, LOZENGES) lozg Take 1 tablet by mouth once daily. Let dissolve in mouth. Chlorhexidine Gluconate (PERIDEX) 0.12 % solution Take 15 mL by mouth once daily. Swish for 30 seconds and then spit out. tiotropium-olodaterol (STIOLTO RESPIMAT) 2.5-2.5 mcg/actuation mist Inhale 2 Puffs as instructed once daily. fluticasone (FLOVENT) 110 mcg/actuation inhaler Inhale 1 Puff as instructed twice daily. allopurinol (ZYLOPRIM) 300 mg tablet Take 1 tablet by mouth once daily. This can be crushed. hydroxyurea (HYDREA) 500 mg capsule Take 1 capsule by mouth once daily. ? ? Current: ? Current hospital medications: albuterol HFA 90 mcg/actuation 2 Puff (PROVENTIL HFA, VENTOLIN HFA) 2 Puff INHALATION q 6 H PRN diltiazem CD 120 mg cap(s) (CARDIZEM CD, CARTIA XT) 120 mg ORAL BID allopurinol 300 mg tab(s) (ZYLOPRIM) 300 mg ORAL DAILY cholecalciferol 1,000 Units tab(s) (VITAMIN D3) 1,000 Units ORAL DAILY famotidine 20 mg tab(s) (PEPCID) 20 mg ORAL DAILY tiotropium 18 mcg cap(s) and device for inhalation (SPIRIVA) 18 mcg INHALATION DAILY ondansetron (PF) 4 mg injection (ZOFRAN) 4 mg INTRAVENOUS q 6 H PRN acetaminophen 650 mg tab(s) (TYLENOL) 650 mg ORAL q 4 H PRN traMADol 50 mg tab(s) (ULTRAM) 50 mg ORAL q 6 H PRN 0.9% NaCl 3-5 mL 3-5 mL INTRAVENOUS q 12 H 0.9% NaCl 2-10 mL 2-10 mL INTRAVENOUS q 12 H ciprofloxacin 400 mg in D5W 200 mL (CIPRO) 400 mg INTRAVENOUS q 12 H metroNIDAZOLE 500 mg PREMIX piggyback (FLAGYL) 500 mg INTRAVENOUS q 8 H heparin iv infusion (STANDARD NOMOGRAM) 25,000 units in NaCl 0.45% 250 mL PREMIX 0-3,000 Units/hr INTRAVENOUS CONTINUOUS heparin RATE CHANGE bolus 1,000-10,000 Units for subtherapeutic aptt results 1,000-10,000 Units INTRAVENOUS PRN dextrose 5% in LR infusion (D5-LR) 75 mL/hr INTRAVENOUS CONTINUOUS potassium chloride iv piggyback 20 mEq/100 mL 20 mEq INTRAVENOUS q 1 H ? ? ? PAST SURGICAL HISTORY PAST SURGICAL HISTORY Procedure Laterality Date - COLONOSCOP W/ OR W/O BRSH SPEC ? 2003 ? Colonoscopy - COLONOSCOP W/ OR W/O BRSH SPEC ? 02/20/2013 ? Colonoscopy - COLONOSCOP W/ OR W/O BRSH SPEC ? 03/30/16 ? Colonoscopy - EGD BIOPSY SINGLE/MULTIPLE ? 09/21/2017 - EGD W/O OR W/BRUSH/WASH ? 2003 ? EGD - EGD W/O OR W/BRUSH/WASH ? 02/20/13 ? EGD - ESOPH W/O BRSH SPEC BALLOON DIL ? 03-30-2004 ? Esophageal dilatation - LARYNGOSCOPY W/ BIOPSY ? 02/06/2014 - PARTIAL GASTRECTOMY ? 1970 ? bleeding ulcer - PAST SURGICAL HISTORY OF Left 08/29/2016 ? Floor of mouth resection, sialadochoplasty ? ? FAMILY HISTORY FAMILY HISTORY Problem Relation Age of Onset - Cancer Brother ? ? ? lung cancer - Cancer Brother ? ? ? bone cancer - Cancer Brother ? ? ? brain tumor or cancer - Coronary Artery Disease Father ? ? ? age 64, [place] - None Mother ? ? ? age 95 ? ? SOCIAL HISTORY Social History Marital status: Spouse name: Years of education: Number of children: ? Social History Main Topics Smoking status: Former Smoker Packs/day: 2.00 Years: 52.00 Types: Cigarettes Quit date: 09/01/2013 Smokeless tobacco: Never Used Alcohol use: Yes 6.0 oz/week Cans of Beer (12oz): 4 per week Drug use: No Sexual activity: No ? ? ? PHYSICAL EXAMINATION: ? Vitals ? 11/29/17 1751 11/29/17 2154 BP: 154/80 149/84 Pulse: 97 101 Resp: 16 20 Temp: 36.7 ?C (98 ?F) 36.8 ?C (98.2 ?F) TempSrc: Oral Oral SpO2: 94% 93% Weight: 53.2 kg (117 lb 4.6 oz) ? Height: 180.3 cm (5' 11) ? ? BP 149/84 Pulse 101 Temp (Src) 98.2 (Oral) Resp 20 Ht 5' 11 (1.80m) Wt 117 lb 4.6 oz (53.2kg) SpO2 93% BMI 16.37 kg/(m2). ? GENERAL: Well appearing, alert, in no acute distress SKIN: Skin color, texture, turgor normal, no suspicious rashes or lesions HEENT: Head normal. Anicteric sclera. Pupils are equally round and reactive to light. Extraocular movements are intact. NECK: Supple, no adenopathy; no carotid bruits LUNGS: Lungs clear to auscultation. HEART: RRR without murmur, gallop, or rubs. No ectopy ABDOMEN: Soft abdomen, positive bowel sounds. Tenderness noted in LUQ and midepigastric. No rebound, rigidity. EXTREMITIES: No deformities, edema, skin discoloration MUSCULOSKELETAL: Muscular strength intact throughout. No joint swelling, deformity, or tenderness PULSES: Carotid 3/4. Radial 3/4. Posterior tibial 3/4. NEURO: Gait normal. Reflexes normal and symmetric. Sensation grossly intact. ? ? LABORATORY: ? CBC, Coags, BMP, Mg, Phos ? Recent Labs ? 11/29/17 2159 WBC 23.46* HB 11.8* HCT 40.4 PLT 997* INR 1.3 APTT 80.6* NA 139 K 3.3* CHLOR 99 CO2 22 BUN 6* CREAT 0.70* GLUC 95 CA 8.8 MG 1.4* P 2.8 ? ? ? DATA/IMAGING: See HPI ? Patient Checklist Prophylaxis: VTE - Yes PPI - Yes ? Code Status: Full Code ? ? ? ASSESSMENT AND PLAN: ? Sabina Flores is a 77 year old male who presents with abdominal pain due to superior mesenteric vein thrombosis. ? Active Hospital Problems ? Diagnosis - Superior mesenteric vein thrombosis ? ? Assessment: Mesenteric venous thrombosis versus PUD versus pancreatitis versus esophageal perforation LUQ/midepigastric burning abdominal pain CT imaging showed superior mesenteric venous thrombosis Hx of pancreatitis, lipase 116 (11/29/17) Recent esophageal dilatation ? Plan: Consult vascular medicine, hematology Start heparin nomogram Start cipro/flagyl for gut translocation ppx (supported by animal studies) Continue famotidine Pain management - tylenol (mild), tramadol (moderate) Zofran prn nausea D5LR IVF Diet NPOm bowel rest KUB AM Lactate AM ? ? ? - Myeloproliferative disorder (HCC) ? ? Assessment: JAK2 V617F mutation managed w/ anagrelide 0.5 mg BID, allopurinol Previously on hydroxyurea (stopped due to dysphagia) WBC 25.2, Plt 1034 Retroperitoneal lymphadenopathy noted on CT ? Plan: Continue allopurinol Uric acid AM Assess retroperitoneal lymphadenopathy 2/2 myeloproliferative disorder versus esophageal malignancy? Currently held anagrelide/hydroxyurea ? ? ? - COPD (chronic obstructive pulmonary disease) (HCC) ? ? Continue Spiriva, Proventil Not in acute exacerbation ? - Essential hypertension ? ? Continue diltiazem 120 mg BID ? ? Karl Darnell MD Internal Medicine, PGY-1 November 29, 2017 9:04 PM Pager: [phone] ? [facility] ? SENIOR RESIDENT ADDENDUM - Please see excellent note above by Dr. Pulido for further details. HPI: Briefly, Sabina Flores is a 77 year old male who presented with abdominal pain and has a PMH of: - Stage T2N0 invasive poorly differentiated SqCCA of larynx s/p resection, radiation 2014 c/b esophageal stricture - left floor of mouth CIS s/p resection 08/2016 - ILD - colonic diverticulosis - COPD - JACOBO - EtOH abuse - Myeloproliferative disorder (JAK2 V617F+) (all three lines on anagrelide and hydroxyurea) c/b splenomegaly - PUD s/p partial gastrectomy in 1971 Patient currently follows with Dr. Aguillon at [facility] for MPD. He has had elevated platelets > 1 million before and was recently started on anagrelide to decrease risk of bleeding. He has also been on hydroxyurea but has been unable to take this because of inability to swallow d/t stricture. He recently had an EGD with esophageal dilation on 11/27 for esophageal stricture related to previous radiation for SqCCA of larynx. He was told after the procedure to come back in if he experienced worsening abdominal pain. He did ok 1 day after procedure, then yesterday eveng had postprandial abdominal pain with N/V and experienced worsening pain overnight, he went to [facility] ED in the AM. Over at [facility] ED patient was HDS and afebrile. Labs revealed elevated WBC to 25.2K, Hgb of 12, Hct 42, platelets > 1,000k, otherwise nl. Trop neg, lipase 116, lactate 1.2. CT a/p demonstrated emphysema, pleural based densities and mild dilation of biliary duct and gallbladder along with thrombosis of SMV. General surgery was consulted and recommended transfer to [facility] for further evaluation and workup. He was given IV dilaudid for pain control and breathing treatments for wheezing before transfer to [facility]. Currently reports his abdominal pain is stable, feels like a burning worse periumbilical to LUQ. Denies further nausea or vomiting. IV dilaudid is controlling his pain well Social history, family history, and ROS as above. PHYSICAL EXAMINATION: BP 154/80 Pulse 97 Temp 36.7 ?C (98 ?F) (Oral) Resp 16 Ht 180.3 cm (5' 11) Wt 53.2 kg (117 lb 4.6 oz) SpO2 94% BMI 16.36 kg/m? General appearance: Well appearing, alert, in no acute distress, well-hydrated, well nourished. and Cachectic Eyes: Anicteric sclera. Pupils are equally round and reactive to light. Extraocular movements are intact. Oropharynx: Lips, mucosa, and tongue normal, teeth and gums normal, oropharynx normal Neck: Supple, no adenopathy; thyroid symmetric, normal size, no bruits Lungs: Good inspiratory effort. Good air entry bilaterally with normal breath sounds throughout all lung zones. No wheezing, rhonchi, or rales. Heart: RRR without murmur, gallop, or rubs. No ectopy Abdomen: S TTP in LUQ to mid epigastrium +BS no distension no rebound or guarding. Extremities: No deformities, edema, skin discoloration, clubbing or cyanosis. Good capillary refill. Peripheral pulses: Normal, Capillary refill <2secs, strong peripheral pulses Neuro: Motor strength, sensation, and CN II-XII grossly intact. DTRs 2+ and symmetric. Labs and imaging as above. ASSESSMENT/PLAN: 77 yo M with NEHEMIAH+ MPD, SqCCA of larynx, COPD, PUD presenting with acute on chronic abdominal pain following esophageal dilation and found to have SMV thrombosis on outside imaging. This would be concerning for mesenteric ischemia, lactates are normal and there is no evidence of acute abdomen on examination, imaging, or labs. Agree with assessment and plan as listed above. Continue home meds. Vascular medicine and hematology consults. Bowel rest, IVF, check KUB and trend lactate. I discussed with vascular medicine fellow pumping station supervisor over night and ok with starting AC as long as no CI (only relative one would be recent procedure.) Ppx antibiotics have been supported in animal studies and so will start overnight. Images were reviewed with radiology and supports diagnosis of SMV thrombosis without perforation. Diet: NPO DVT prophylaxis: heparin GI prophylaxis: protonix Disposition: RNF Code status: FULL CODE Kenney Altamirano MD Internal Medicine, PGY-2 November 29, 2017 7:06 PM Pager [phone] [facility] STAFF PHYSICIAN NOTE OF PERSONAL INVOLVEMENT IN CARE I have reviewed the h and p obtained and documented by the resident and I personally participated in the perry components. I have discussed the case and management of the patient's care. The following comments revise or confirm relevant perry components of their note. 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 Abd/Pelv w/ contrast showed superior mesenteric venous thrombosis, retroperitoneal lymphadenopathy after which he was transferred to [facility] PLAN: - vascular medicine, hematology consulted appreciate recs -heparin gtt , starting coumadin tonight , plan to bridge . -symptom mx -swallow eval done CARE COORDINATION: The majority of the visit was spent counseling and/or coordinating care for the patient. Emnr-dt-aofo time was 20 minutes SIGNATURE: Yeni Foley MD PAGER:[phone] DATE of SERVICE: 11/30/2017 TIME of SERVICE: 3:39 PM NURSING PROG Observed: 11/29/2017 Status: COMPLETED Source: GWINN 6:29 PM [facility] REPOSITORY HNO ID: [id number] Author: Diana HanksRn) TL Rodriguez Service: (none) Author Type: Registered Nurse Type: Nursing Progress Note Filed: 11/29/2017 6:31 PM Note Text: Nursing Progress Note Patient Name: Sabina Flores Patient Location: H080 023/H080-24 Transfer Note: Patient transferred into room/unit H80 24 in stable condition. Actions taken: No futher actions taken at this time. Will continue to monitor and check with patient. Patient belongings with patient This note was completed by: Diana Rodriguez RN EMERGENCY DEPARTMENT Observed: 11/29/2017 Status: F Source: [place] SUMMARY 11:50 AM [facility] Medical Records Department [address] [place] [id number] Emergency Department Summary 11/29/17 1145 MR#: [id number] Acct: [id number] Name: SABINA FLORES Rep #: [id number] : 1940 77 From: Kwaku Sow DO PCP: Varun Wang MD Status: REG ER - ER Visit Summary Date of Service: 11/29/17 Chief Complaint: [Abdominal pain] History of Present Illness: The patient is a 77 M [presents the emergency department complaint of abdominal pain that started around 8 PM last night. Patient rates his pain currently as a 7 out of 10. Patient states the pain started in his left upper quadrant, radiated to his epigastric region. Patient's had nausea and he has made himself vomit to see if he can relieve the discomfort. Patient's not had any fevers. Patient states that he had his esophagus dilated 2 days ago at the [facility]. Patient also has a history of COPD and history of vocal cord cancer. Patient has had history of pancreatitis in the past. Patient quit smoking 4 years ago and admits to occasional alcohol use.] Patient uses home O2 at night typically. Physical Examination: [HEENT-PERRLA, EOMI. Cranial nerves II through XII grossly intact. TMs clear. Mucous membranes moist. No adenopathy. Cardiovascular-regular rate and rhythm without murmur or ectopy Lungs-clear to auscultation, chest wall stable without crepitus or subcu emphysema Abdomen-normoactive bowel sounds, soft. Patient has tenderness to palpation over left upper quadrant and epigastric region with some guarding. There is no rebound, rigidity, or perineal signs. Extremities-intact 4, normal range of motion, normal pulses, atraumatic] Test Results: [EKG obtained on arrival showed a sinus rhythm with a ventricular rate of 91 bpm with no acute ST segment changes. CBC with differential showed an elevated white count of 25.2, hemoglobin 12, hematocrit 42, platelets 1034. Chemistries unremarkable. LFTs unremarkable. Lipase was normal at 116. Troponin was less than 0.015. Lactate was normal at 1.2. CT scan of the chest showed some emphysematous changes however no infiltrates. Patient has some pleural-based densities left lower lobe. Patient had some mild dilatation of the intrahepatic biliary duct and mild dilatation of the gallbladder. Patient was noted to have thrombosis of the superior mesenteric vein on CT scan of the abdomen and pelvis. There is no evidence of perforation.] Emergency Department Course and Treatment: [Patient case discussed with Dr. Angie Perales who is on-call for general surgery who asked that we transfer patient to main [facility]] Treatment Plan: [Transfer to [facility]] Disposition: [] Transfer Impression: [Abdominal pain Superior mesenteric vein thrombosis] Hypoxemia-COPD exacerbation This note was generated with [employer] dictation software. It may contain incorrect words, spelling, and punctuation that were not noted in review of the chart prior to signing ED Disposition - Plan for ED Patient: Chief Complaint: Abd Pain Referrals: Varun Wang MD [Primary Care Provider] - What to do if you have Problems For any increased pain, shortness of breath, bleeding, nausea or vomiting, chest pain, or any unexpected problems, contact your Primary Care Provider. Call [facility] ([phone]) or report to the closest Emergency Room. Call 911 if necessary. 11/29/17 1150 <Electronically signed by Kwaku Sow DO> Date Kwaku Sow DO Cosigner Signature (If Indicated): Date CC: Varun Wang MD CHEST WITH CONTRAST Observed: 11/29/2017 Status: F Source: [place] 7:48 AM [facility] Imaging Services [address] [place] [address] Chest WITH Contrast MR#: [id number] Acct: [id number] Name: SABINA FLORES Rep #: [id number] : 1940 M 77 From: Jr Desai MD PCP: Varun Wang MD Status: REG ER Study: Chest WITH Contrast Date of Exam: 11/29/17 Exam# [id number] Ordering Dr: Kwaku Sow DO STUDY: CT CHEST WITH CONTRAST REASON FOR EXAM: Male, 77 years old. Recent esophageal dilatation. Patient presents with nausea vomiting and abdominal pain. History of laryngeal carcinoma. RADIATION DOSAGE (If Supplied By Facility): CTDIvol = ( 8.26 ) mGy, DLP = ( 581.91 ) mGycm TECHNIQUE: Transaxial imaging was performed following intravenous administration of 100CC ml of Isovue 300 contrast material. Multiplanar coronal and sagittal images were reformatted. Individualized dose optimization techniques were used for this CT. COMPARISON: Comparison is made with prior study dated September 23, 2017. FINDINGS: Once again, there is diffuse emphysematous changes. Stable area of scarring in the posterior aspect of the right upper lobe. There is a 1.7 cm by 1.2 cm nodular density adjacent to the descending thoracic aorta at the left lung base as seen on axial image #75. A similar appearing pleural-based nodule is seen in the posteromedial aspect of the left lower lobe measuring 1.7 cm. These were not seen on prior study due to the presence of the pleural effusions. Correlation with a PET scan is recommended. The previously seen pleural effusions have resolved. Normal heart and pericardium. Normal mediastinum. Enlarged right hilar lymph node measuring 2.4 cm. Normal enhanced pulmonary arteries. There is atherosclerotic calcification of the aortic arch with tortuosity and elongation of the aortic arch and descending thoracic aorta. Increased thoracic kyphosis. There is no demonstrated abnormality of the visualized upper abdomen. CT/Chest WITH Contrast IMPRESSION: Diffuse emphysematous changes. Stable right hilar node enlargement. There are 2 noncalcified nodular densities in the left lower lobe as described. Correlation with a PET scan is recommended. Electronically Signed: Jr Desai MD at 10:50 EDT Tel [phone], Service support , CC: Kwaku Sow DO; Varun Wang MD Lining Scrubber: Signed LACTIC ACID Collected: 11/29/2017 Status: F Source: [place] 7:30 AM [facility] [place] Order Comment: Yes/No query for Sepsis Lactate Rule Y TYPE CODE TESTS RESULT OUT OF RANGE REFERENCE UNITS LAB L503.6005 0.4-2.0 mmol/L Normal LACTIC ACID 1.2 Performed By: #### L503.6005 #### [facility] [address] [facility] [place], [address] CHEST 1 VIEW Observed: 11/29/2017 Status: F Source: [place] (PORTABLE) 7:12 AM [facility] Imaging Services [address] [place] [address] Chest 1 View (Portable) MR#: [id number] Acct: [id number] Name: SABINA FLORES Raúl Rep #: [id number] : 1940 M 77 From: Crispin Rossi MD PCP: Varun Wang MD Status: REG ER Study: Chest 1 View (Portable) Date of Exam: 11/29/17 Exam# [id number] Ordering Dr: Kwaku Sow DO STUDY: X-RAY CHEST REASON FOR EXAM: Male, 77 years old. Hypoxia and pain. TECHNIQUE: Single AP portable view of the chest. COMPARISON: 09/26/2017. 11/15/2016. FINDINGS: There is mild chronic interstitial prominence in the lungs. There is no demonstrated focal pulmonary infiltrate. There is no demonstrated pleural abnormality. There is borderline cardiomegaly. Normal mediastinum and malia. Normal visualized pulmonary arteries. There is atherosclerotic calcification of the aortic arch with tortuosity. Normal visualized thoracic spine. Normal visualized ribs, clavicles, and shoulders. There is no demonstrated abnormality of the visualized soft tissue structures of the upper abdomen. RAD/Chest 1 View (Portable) IMPRESSION: Borderline heart size. Mild chronic interstitial changes. No evidence for acute cardiopulmonary pathology. Electronically Signed: Crispin Rossi MD at 7:47 EDT , Service support , CC: Kwaku Sow DO; Varun Wang MD Lining Scrubber: Signed ABDOMEN/PELVIS WITH Observed: 11/29/2017 Status: F Source: [place] CONTRAST 7:12 AM [facility] [place] [place] [facility] Imaging Services [address] [place] [address] Abdomen/Pelvis WITH Contrast MR#: [id number] Acct: [id number] Name: SABINA FLORES Rep #: [id number] : 1940 77 From: Jr Desai MD PCP: Varun Wang MD Status: REG ER Study: Abdomen/Pelvis WITH Contrast Date of Exam: 11/29/17 Exam# [id number] Ordering Dr: Kwaku Sow DO STUDY: CT ABDOMEN AND PELVIS WITH CONTRAST REASON FOR EXAM: Male, 77 years old. History of recent esophageal dilatation. Abdominal pain and nausea and vomiting. Patient has a history of laryngeal cancer and tongue cancer. RADIATION DOSAGE (If Supplied By Facility): CTDIvol = ( 8.26 ) mGy, DLP = ( 581.91 ) mGycm TECHNIQUE: Transaxial images were obtained from the dome of the diaphragm to the symphysis pubis without oral contrast. 100CC ml of Isovue 300 contrast was administered. Sagittal and coronal images were reconstructed. Individualized dose optimization techniques were used for this CT. COMPARISON: Comparison is made with prior study dated September 23, 2017. FINDINGS: The previously seen small bilateral pleural effusions have resolved. Mild increased markings at the lung bases suggestive of scarring and/or atelectasis. There is a 1.1 cm pleural-based nodular density along the posterior medial aspect of the left lower lobe. This may represent scarring. Follow-up is recommended. Coronary artery calcification. Small pericardial effusion. Dilated intrahepatic biliary ducts. Slightly distended gallbladder. Dilated common bile duct. There is moderate splenomegaly. Stable calcified splenic granulomas. There is diffuse atrophy of the pancreas. An intraluminal filling defect is seen within the superior mesenteric vein in keeping with superior mesenteric venous thrombosis. This extends into the proximal portion of the portal vein at the spinal pleural junction. Normal bilateral adrenal glands. Normal right kidney. Normal left kidney. Normal visualized stomach. Surgical clips are seen at the gastroesophageal junction. Normal small intestine. Normal colon. The appendix is visualized and appears normal. There is diffuse atherosclerotic calcification of the abdominal aorta, without a demonstrated aneurysm. Normal inferior vena cava. There is borderline retroperitoneal lymphadenopathy with enlarged nodes no greater than 10mm in the short axis diameter. Distended urinary bladder. Normal abdominal wall. There are diffuse degenerative changes of the visualized lumbar spine. CT/Abdomen/Pelvis WITH Contrast IMPRESSION: Findings suggest mild scarring at the lung bases. 1.1 cm pleural-based nodular density in the left lower lobe. Mild dilatation of the intrahepatic biliary ducts and mild dilatation of the gallbladder. Splenomegaly. Thrombosis of the superior mesenteric vein. Electronically Signed: Jr Desai MD at 10:37 EDT Tel [phone], Service support , CC: Kwaku Sow DO; Varun Wang MD Lining Scrubber: Signed CBC W/DIFF, AUTOMATED Collected: 11/29/2017 Status: C Source: [place] 6:54 AM [facility] TYPE CODE TESTS RESULT OUT OF RANGE REFERENCE UNITS LAB L100.1000 4.4-11.0 K/mm3 High WBC 25.2 LAB L100.1200 4.6-6.2 M/mm3 High RBC 6.32 LAB L100.1300 13.0-16.5 g/dl Low HGB 12.4 LAB L100.1400 40-54 % Normal HCT 42.1 LAB L100.1500 80-94 fL Low MCV 66.6 LAB L100.1600 27.0-32.0 pg Low MCH 19.6 LAB L100.1700 32-36 g/gl Low MCHC 29.5 LAB L100.1810 11.6-14.6 % High RDW CV 19.6 LAB L100.1820 35.1-43.9 fl High RDW SD 47.2 LAB L100.1900 150-450 K/mm3 High alert PLT 1034 Result Comment: CRITICAL VALUE VERIFIED. CALLED TO MACI RODRIGUEZ 11/29/17 0740 Peter Shoemaker. RESULTS READ BACK BY SAME. LAB L100.2000 6.2-12.0 fl Normal MPV 9.1 LAB L100.2100 47-70 % High NEUT% 84.6 LAB L100.2200 19-41 % Low LY% 5.0 LAB L100.2300 0-10 % Normal MONO% 4.9 LAB L100.2400 0-5 % Normal EO% 2.4 LAB L100.2500 0-1 % High BASO% 2.8 LAB L100.2550 0.0-0.9 % Normal IM GRAN % 0.300 Result Comment: IG% - Immature Granulocytes (promyelocytes, myelocytes and metamyelocytes) > 1% indicates that a LEFT SHIFT is Present. LAB L100.2620 2.0-7.7 X10 3/uL High Absolute Neut 21.3 LAB L100.2720 0.83-4.51 X10 3/ul Normal Absolute Lymph 1.26 LAB L100.4500 Normal SMEAR COMMENT COMMENT Result Comment: SLIDE SCANNED - NEUTROPHILIA,BASOPHILIA,THROMBOCYTOSIS. LAB L100.9900 Normal Reviewed PATH REV Result Comment: Neutrophilic leukocytosis. Thrombocytosis. Clinical correlation necessary. Chemo Choudhury M.D. 11/29/17 AMENDED REPORT 11/29/17 1357 PATH REV previously reported as: Xiomara salazar Performed By: #### L100.0100 #### [facility] [place], [address] COMPREHENSIVE METABOLIC Collected: 11/29/2017 Status: F Source: [place] [facility] 6:54 AM [facility] TYPE CODE TESTS RESULT OUT OF RANGE REFERENCE UNITS LAB L501.0100 74-106 mg/dL High GLU 124 Result Comment: Fasting Glucose result from 100 to 125 mg/dL suggests IMPAIRED HOMEOSTASIS per A.D.A. criteria. Please note revised GLUCOSE reference range effective 2017. LAB L501.1000 7-18 mg/dL Normal BUN 10 LAB L501.1100 0.70-1.30 mg/dL Normal CREAT,SERUM 0.82 Result Comment: The validity of the calculated GFR AND GFRAA in patients over 70 years has not been determined. Clinical correlation is essential. LAB L501.1110 >60 mL/min Normal EST GFR 97 Result Comment: Non- GFR Calc LAB L501.1115 >60 mL/min Normal EST GFR - AA 117 Result Comment: GFR Calc LAB L501.1255 ml/min Normal Estimated CRCL 58.16 LAB L501.1300 10-20 RATIO Normal BUN/CRE 12.2 LAB L501.1500 6.4-8. g/dL Normal 2 T PROT 7.4 LAB L501.1800 3.2-5. g/dL Normal 0 ALB 3.9 LAB L501.1950 2.2-4. g/dL Normal 2 GLOB 3.5 LAB L501.2000 0.9-2. RATIO Normal 4 A/G 1.1 LAB L501.2200 8.5-10 mg/dL Normal .1 CA 9.0 LAB L501.4100 15-37 U/L Normal AST 18 LAB L501.4305 45-117 U/L High ALK P 133 LAB L501.4405 16-61 U/L Normal ALT 18 LAB L501.4600 0.20-1 mg/dL Normal .00 T BILI 0.80 LAB L501.5300 136-14 mmol/L Normal 5 NA 141 LAB L501.5600 3.5-5. mmol/L Normal 1 K 3.6 LAB L501.5900 98-107 mmol/L Normal CL 106 LAB L501.6100 21.0-3 mmol/L Normal 2.0 CO2 27.0 LAB L501.6200 5-15 Normal GAP 8 Performed By: #### L500.4050, L501.2450, L501.4010 #### [facility] [address] [place], [address] LIPASE Collected: 11/29/2017 Status: F Source: [place] 6:54 AM [facility] TYPE CODE TESTS RESULT OUT OF RANGE REFERENCE UNITS LAB L501.2450 73-393 U/L Normal LIPASE 116 Performed By: #### L500.4050, L501.2450, L501.4010 #### [facility] [address] [place], [address] TROPONIN-I Collected: 11/29/2017 Status: F Source: [place] 6:54 AM [facility] TYPE CODE TESTS RESULT OUT OF RANGE REFERENCE UNITS LAB L501.4010 <0.045 ng/mL Normal < 0.015 TROPONIN-I Result Comment: TROPONIN-I EXPECTED VALUES <0.045 Negative 0.045 - 0.590 Consistent with Cardiac Damage > OR = 0.600 Critical Value Not every elevated troponin is indicative of IL. These values should be used with clinical judgement in examining the patient's clinical picture for diagnosis. To establish a diagnosis of IL versus myocardial injury, there must be a demonstrated rise and/or fall in the troponin values, in addition to ischemic symptoms, EKG changes, new regional wall motion abnormality, and/or angiographical evidence. PLEASE NOTE: REFERENCE RANGES EDITED 17 Performed By: #### L500.4050, L501.2450, L501.4010 #### [facility] [address] [place], [address] XR OUTSIDE CD DICOM Observed: 11/29/2017 Status: F Source: [facility] 12:00 AM [facility] Images were obtained outside of [facility] [id number] CT OUTSIDE CD DICOM Observed: 11/29/2017 Status: F Source: [facility] 12:00 AM [facility] REPOSITORY Images were obtained outside of [facility] [id number] CT OUTSIDE CD DICOM Observed: 11/29/2017 Status: F Source: [facility] 12:00 AM [facility] REPOSITORY Images were obtained outside of [facility] [id number] XR OUTSIDE CD DICOM Observed: 11/29/2017 Status: F Source: [facility] 12:00 AM [facility] REPOSITORY Images were obtained outside of [facility] [id number] ANES POST Observed: 11/27/2017 Status: COMPLETED Source: [place] 11:55 AM [facility] REPOSITORY HNO ID: [id number] Author: Quang Johnson Service: Anesthesiology Author Type: Anesthesiologist Type: Anesthesia PostOp Filed: 11/27/2017 11:55 AM Note Text: POST ANESTHESIA EVALUATION NOTE SERVICE DATE: 11/27/2017 SERVICE TIME: 1144 : 1940 Vitals: Validated Vital Signs: HR: 73; BP: 125/63; RR: 16; SpO2%: 10; Temperature: 36.7 POST ANES STATUS: No apparent anesthetic complications. The patient is appropriately hydrated with stable respiratory and cardiovascular status. Patient has safe and adequate airway control. The patient has appropriate pain relief and no significant post operative nausea or vomiting. The patient has achieved baseline mental status. Further assessment by Anesthesia Service: None Other Remarks: SIGNATURE: Quang Johnson MD PATIENT NAME: Sabina Flores DATE: November 27, 2017 TIME: 11:55 AM PAGER/CONTACT #: [phone] PROGRESS Observed: 11/27/2017 Status: COMPLETED Source: [place] 11:23 AM [facility] REPOSITORY HNO ID: [id number] Author: Neva Singer Service: (none) Author Type: Physician Type: Progress Notes Filed: 11/27/2017 3:41 PM Note Text: 1. Can you swallow saliva? Yes 2. If able to eat by mouth, what type of food are you eating? solid, how difficult: hard unable to do steak or pills 3. Are you dependent on CORPAK/PEG/J-tube for nutrition? No Any reduction if the amount? No 4. Have symptoms improved since last dilation? n/a CNOV Observed: 11/26/2017 Status: COMPLETED Source: [place] 9:15 AM [facility] REPOSITORY Office Visit (OTMNCA) SABINA FLORES ([id number]) 1940 M Date Time Provider Department 11/26/17 9:15 AM MARCO A GIRALDO OTSAMIA During your visit today, we recorded the following information about you: Dai Briones Ma 11/26/2017 8:33 AM Signed Tobacco Use: 2 packs/day, for 52 years. Quit 09/01/2013. Types: Cigarettes Was smoking cessation packet given? N/A - Patient is a non- smoker or quit >1 year ago. Was a referral initiated?N/A Patient is a non-smoker Dai Briones Ma 11/26/2017 8:33 AM Signed Additional intake questions: Has the patient had nausea, vomiting, diarrhea, constipation, fatigue for > 1 week? Fatigue, Yes, MD Notified Does the patient have a decreased appetite? No Does patient want to see a Veneer Repairer Machine? No (yes to any of above refer patient to schedulers for dietitian appointment) ) Does patient have any new or increased numbness or tingling of extremities? Yes, right hand tingling of the finger tips Is patient interested in fertility information? No Does patient need any prescription refills? No Electronically Signed By: Dai Briones Ma Referring Provider: MARCO A GIRALDO [[id number]] Allergies As of Date: 11/26/2017 (No Known Allergies) Date Reviewed: 11/26/2017 Reviewed by: Dai Briones Ma - Fully Assessed Reason for Visit: Established Patient [175] Primary Visit Diagnosis:History of laryngeal cancer [Z85.21] Prescriptions as of 11/26/2017 Sig: ALBUTEROL SULFATE HFA 90 MCG/* Inhale 2 Puffs as instructed * ANAGRELIDE 0.5 MG CAPSULE TAKE ONE CAPSULE BY MOUTH TWI* ONDANSETRON HCL 4 MG TABLET Take 1 tablet by mouth every * MUPIROCIN 2 % TOPICAL OINTMENT Apply 1 application to affect* OXYCODONE-ACETAMINOPHEN 5 MG-* Take 1 tablet by mouth every * CHOLECALCIFEROL (VITAMIN D3) * Take 1 tablet by mouth once d* VIT A-VIT P-BCYV-UFONARXF MAT* Take 1 tablet by mouth once d* CHLORHEXIDINE GLUCONATE 0.12 * Take 15 mL by mouth once cristiana* TIOTROPIUM 2.5 MCG-OLODATEROL* Inhale 2 Puffs as instructed * ALLOPURINOL 300 MG TABLET Take 1 tablet by mouth once d* DILTIAZEM SR 120 MG 24 HR CAP Take 120 mg by mouth twice da* FAMOTIDINE 20 MG TABLET Take 20 mg by mouth twice kerline* FLUTICASONE 110 MCG/ACTUATION* Inhale 1 Puff as instructed t* HYDROXYUREA 500 MG CAPSULE Take 1 capsule by mouth once * Patient not taking: Reported on 11/26/2017 Problem List As Of Date 11/26/2017 Noted Resolved Iron deficiency anemia [D50.9] INVALID FOR* Priority: Severe Peptic ulcer, unspecified site, unspecified as *INVALID FOR*10/30/2011 Esophageal stricture [K22.2] INVALID FOR* Priority: Moderate Diverticulosis of large intestine without hemor*INVALID FOR* Nonspecific abnormal results of liver function *INVALID FOR*03/31/2011 More... Personal history of alcoholism [F10.21] INVALID FOR*02/12/2014 Tobacco use disorder [F17.200] INVALID FOR*02/21/2016 Interstitial lung disease (HCC) [J84.9] INVALID FOR* Lung nodule [R91.1] INVALID FOR*04/14/2013 More... Asthma [J45.909] INVALID FOR* COPD (chronic obstructive pulmonary disease) (H*INVALID FOR* Priority: I Adenomatous colon polyp [D12.6] INVALID FOR* Polycythemia [D75.1] INVALID FOR*08/21/2016 Carcinoma in situ of larynx [D02.0] INVALID FOR* Back pain, chronic [M54.9, G89.29] INVALID FOR* History of laryngeal cancer [Z85.21] INVALID FOR* Colon cancer screening [Z12.11] INVALID FOR*03/30/2016 Oral lesion [K13.70] INVALID FOR*11/20/2016 Hypoxemia [R09.02] INVALID FOR* Severe protein-calorie malnutrition (HCC) [E43] INVALID FOR* More... Thrombocytosis (HCC) [D47.3] INVALID FOR* Priority: Severe Elevated protime [R79.1] INVALID FOR* Elevated bilirubin [R17] INVALID FOR* Shortness of breath [R06.02] INVALID FOR*09/22/2017 Priority: A More... Body mass index (BMI) less than or equal to 19 *INVALID FOR* Malignant neoplasm of larynx (HCC) [C32.9] INVALID FOR* More... 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 Vitamin D deficiency [E55.9] INVALID FOR* More... Hypoalbuminemia [E88.09] INVALID FOR* Prolonged INR [R79.1] INVALID FOR*09/22/2017 More... 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] INVALID FOR* Visit Notes: >> Dai Briones Ma SunNov 26, 2017 8:32 AM Status: Signed Tobacco Use: 2 packs/day, for 52 years. Quit 09/01/2013. Types: Cigarettes Was smoking cessation packet given? N/A - Patient is a non- smoker or quit >1 year ago. Was a referral initiated?N/A Patient is a non-smoker >> Dai Briones Ma SunNov 26, 2017 8:32 AM Status: Signed Additional intake questions: Has the patient had nausea, vomiting, diarrhea, constipation, fatigue for > 1 week? Fatigue, Yes, MD Notified Does the patient have a decreased appetite? No Does patient want to see a Veneer Repairer Machine? No (yes to any of above refer patient to schedulers for dietitian appointment) ) Does patient have any new or increased numbness or tingling of extremities? Yes, right hand tingling of the finger tips Is patient interested in fertility information? No Does patient need any prescription refills? No Electronically Signed By: Dai Briones Ma Disposition: Return in about 4 months (around 03/29/2018), or if symptoms worsen or fail to improve. Follow-up and Disposition History Recorded Encounter Status:Closed by MARCO A GIRALDO MD on 11/27/17 PROGRESS Observed: 11/26/2017 Status: COMPLETED Source: [place] 12:00 AM [facility] [place] REPOSITORY HNO ID: [id number] Author: Marco A Giraldo Service: (none) Author Type: Physician Type: Progress Notes Filed: 11/28/2017 10:53 AM Note Text: [facility] [place] Marco A Giraldo M.D. NAME: SABINA FLORES CLINIC NO: [id number] DATE OF SERVICE: 11/26/2017 Chief Complaint Oncologic surveillance. History of Present Illness Mr. Flores returns in followup. He is a patient with a history of left lower mouth resection, high grade keratinizing squamous dysplasia present. Carcinoma in situ had been resected, margins were negative on final resection. 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 This had been treated with nonoperative chemoradiation. He has recently had difficulty with swallowing and is scheduled to undergo dilation to help improve his swallowing ability. Examination Age appropriate, no acute distress. Voice is excellent, speech is excellent. Cervical examination reveals no new masses to inspection or palpation. Oral cavity and oropharyngeal examination reveals no lesions. Flexible fiberoptic endoscopy is performed and dictated as a separate note. Medical Decision Making Diagnosis 1. No evidence of disease. 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 2. 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 3. Dysphagia, probably related to treatment effects and patient is scheduled for dilation. Treatment Plan 1. Continue oncologic surveillance. 2. Flexible fiberoptic endoscopy in the office today. Procedure Note Flexible fiberoptic endoscopy Indications: Patient with a history of laryngeal cancer and floor of mouth tumor, separate primaries. Procedure: The patient was decongested and anesthetized in the right nasal cavity. After appropriate time had elapsed for vasoconstriction and anesthesia, the fiberoptic scope was introduced into the right nasal cavity and advanced posteriorly. No lesions seen in the nasopharynx. Further advancement to the level of the larynx revealed normal true vocal cord movement. No hypopharyngeal nor endolaryngeal lesions appreciated. MARCO A GIRALDO M.D. [id number] Audio #: [id number] Date Dictated: 11/26/2017 11:14:15 Date Typed: 11/28/2017 07:47:20 Date Revised: DISCHARGE SUMMARY Observed: 10/24/2017 Status: F Source: [place] 10:17 AM [facility] Medical Records Department [address] [place] [id number] Discharge Summary 09/27/17 0837 MR#: [id number] Acct: [id number] Name: SABINA FLORES Rep #: [id number] : 1940 77 From: Mikal Fountain DO PCP: Varun Wang MD Status: DIS IN Y Location: [facility] [id number] Discharge Date and Diagnosis Date of Admission: 09/23/17 Date of Discharge: 09/27/17 - Primary Discharge Diagnosis Active and Suspected Problems (Last Reviewed 05/03/17 @ 09:16 by Carmen Graham) Hypokalemia (Acute) SVT (supraventricular tachycardia) (Acute) - controlled with Cardizem Upper Abdominal pain (Acute) UTI - ruled out Sepsis ruled out Pancreatitis- ruled out - Secondary Discharge Diagnosis Chronic Problems (Last Reviewed 05/03/17 @ 09:16 by Carmen Graham) Iron deficiency anemia (Chronic) Hyperuricemia (Chronic) quit in 2016 Benign esophageal stricture (Chronic)- reviewed the biopsy report from [facility] done 09/21/17 Malnutrition of moderate - severe degree (Chronic) Leukocytosis/thrombocytosis (Chronic) Dysphagia (Chronic) Hypersomnia (Chronic) COPD (chronic obstructive pulmonary disease) (Chronic) FEV1 51% Atypical chest pain (Chronic) History of peptic ulcer disease (Chronic) and partial gastrectomy 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 Emphysematous changes of the lung bases. Minimal bibasilar atelectasis, new in the interval. 2. Small bilateral pleural effusions representing a new interval finding. 3. Trace pericardial effusion, increased from the previous study. 4. Moderate splenomegaly. Calcified splenic granulomas are present. 5. There is a small amount of free fluid in the deep pelvis, also new in the interval. Electronically Signed: Jassi Smith MD at 16:35 EDT , Service support , Chest CT 09/23/17 15:17 IMPRESSION: 1. Diffuse emphysematous changes of the lungs. 2. Small focus of scarring of the posterior right upper lobe, stable in the interval. 3. Small bibasilar pleural effusions similar to the previous study. 4. There are mild atelectatic changes of the lung bases, stable in the interval. 5. 5 mm nodule of the right lower lobe axial image 75, decreased in size in the previous study. 6. Trace pericardial effusion, increased from the previous study. 7. Calcified right hilar and mediastinal nodes. Enlarged right hilar node measuring approximately 2.4 cm, stable in the interval. Electronically Signed: Jassi Smith MD at 16:47 EDT , Service support , Chest X-Ray 09/26/17 09:10 IMPRESSION: Progressive left lower lobe infiltration with small left pleural effusion. Electronically Signed: Jr Desai MD at 11:13 EDT Tel [phone], Service support , Laboratory Results - last 24 hr Microbiology 09/23/17 18:51 Urine, Clean Catch Urine Culture - Final Mixed Gram Pos AND Gram Neg Org None Operations: None Procedures: None Summary of Care Provided: Mr. 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 He has recently been diagnosed with thrombocytosis/leukocytosis and started on hydroxyurea. He presented to the emergency department at [facility] on 09/23/2017 with a complaint of epigastric pain that had started that morning. He was just discharged from the [facility] 1 day prior to presentation to [facility] and had EGD and biopsy of an esophageal mass at that time. Pain was relieved with morphine in the emergency department. Lipase was elevated at 670 but he had experienced nausea and retching. This is less than 3 times the upper limits of normal and not significant. UA had 10-25 WBCs per high-power field with no bacteria. Chest/abdomen/pelvis CTs show diffuse emphysematous changes of the lungs with small bibasilar pleural effusion similar to a previous study. The liver, gallbladder and extrahepatic biliary system appeared normal. No evidence of bowel obstruction. Pancreas looked normal. He was admitted to the hospital for UTI and started on Rocephin. He was started on a clear liquid diet. Protonix was started. ELYTES were supplemented. Urine culture was sent and had mixed gram-positive and gram negatives consistent with contamination. Rocephin was discontinued. The upper abdominal pain resolved with Protonix. The pathology report from the esophageal biopsy at the [facility] was negative for malignancy. The chronic change was likely secondary to radiation he received for laryngeal cancer 5 years prior to admission to [facility]. White blood cell count and platelet count decreased significantly during his admission with hydroxyurea. On 09/25/2017 the white blood cell count was 23,000, down from 49,300 at admission and the platelet count was 556,000, down from 1,513,000 at admission. Globin was stable at 12.4. He was instructed to stick to a pur ed diet with very soft foods. He will use carnation instant breakfast made with ice cream and whole milk 3 times a day to help improve malnutrition. He was instructed to follow-up with Dr. Aguillon for thrombocytosis and leukocytosis. He will follow-up at the [facility] for his esophageal problems for possible dilation and/or stent placement. He was started on an iron supplement for mild iron deficiency anemia. General: Alert, oriented 3, cooperative, appropriate, soft voice, able to follow commands, affect is flat and he looks chronically fatigued Neck: Supple, trachea midline, no enlarged cervical nodes, no enlarged supraclavicular nodes, carotids have brisk upstroke with excellent pulse volume, no carotid bruits, no JVD Lungs: Clear to auscultation, diminished, symmetric chest expansion, not tachypneic, no conversational dyspnea, no accessory muscle use Heart: increased resting heart rate and regular rhythm, normal S1, normal S2, no murmur, no gallop, no rub Abdomen: Soft, NT, ND, bowel sounds present, tender in the epigastric area with palpation Extremities: No clubbing, no peripheral edema, no cyanosis Musculoskeletal: cachectic in appearance He has a flat affect and appears to be depressed. Discharge Activity: Return to Normal Activity, May not drive while taking narcotic pain medications. Weight Bearing Status: Full weight bearing Call your doctor if you observe: Fever of 101 or Higher, Inability to have a bowel movement, Shortness of breath, Dizziness, Fainting spells, Swelling in the ankles, Chest pain, Uncontrolled pain, - - black tarry bowel movements, vomiting blood Home Medications: Medications to take at Discharge Albuterol Inhaler [Ventolin Hfa] 2 puff INHALATION Q6H PRN PRN 01/02/14 tiotropium 2.5 mcg-olodaterol 2.5 mcg/actuation mist for inhalation 2 inh INHALATION QDAY #4 g 08/14/17 Allopurinol [Zyloprim] 300 mg PO DAILY 09/23/17 Ascorbic Acid,Sod/Zinc Ox,Gluc [Zinc and C Lozenge] 1 each PO DAILY 09/23/17 Chlorhexidine Gluconate [Peridex] 15 ml MM DAILY 09/23/17 Cholecalciferol (Vitamin D3) [Vitamin D3] 1,000 unit PO DAILY 09/23/17 Fluticasone 110 Mcg [Flovent 110 Mcg] 1 puff INHALATION BID 09/23/17 Hydroxyurea [Hydrea] 1 cap PO DAILY 09/23/17 Mupirocin [Bactroban] 0.5 g NARES BID 09/23/17 Diltiazem CD [Cardizem CD] 120 mg PO BID #60 cap 09/27/17 Famotidine [Pepcid] 20 mg PO BID #60 tab 09/27/17 Ferrous Sulfate Syrup 300 mg GT BID #300 udc 09/27/17 Ondansetron [Zofran Odt] 4 mg PO Q6H PRN PRN #14 tab.rapdis 09/27/17 Oxycodone HCl/Acetaminophen [Percocet 5/325] 1 tab PO Q4H PRN PRN 7 Days #30 tab 09/27/17 Following Prescrptions Were Given to Patient: Oxycodone HCl/Acetaminophen [Percocet 5/325] 1 tab PO Q4H PRN PRN 7 Days #30 tab PRN Reason: Pain Ondansetron [Zofran Odt] 4 mg PO Q6H PRN PRN #14 tab.rapdis PRN Reason: Nausea/Vomiting Diltiazem CD [Cardizem CD] 120 mg PO BID #60 cap Famotidine [Pepcid] 20 mg PO BID #60 tab Ferrous Sulfate Syrup 300 mg GT BID #300 udc Primary Care Physician: Varun Wang MD [Primary Care Provider] - Please follow up with your Primary Care Physician in: 1-2 weeks Please Follow Up With: Maura Aguillon DO When: call for an appt Please Follow Up With: [facility] gastroenterology When: make an appt for follow up on the esophgeal stenosis Disposition: Home Minutes spent on discharge:: 30 Patient Condition:: Stable Medical Necessity - Tobacco Use Smoking Status: Former smoker Meaningful Use Info Meaningful Use Diagnoses (Choose all that apply): None applicable Code Visit Inpatient E AND M: 50114 Disch Hosp 10/24/17 1017 <Electronically signed by Mikal Fountain DO> Date Mikal Fountain DO Cosigner Signature (if applicable): Date CC: Jennifer Fountain; Maura Aguillon DO; Varun Wang MD Signed PROGRESS Observed: 10/23/2017 Status: COMPLETED Source: [facility] 11:39 AM [facility] REPOSITORY HNO ID: [id number] Author: Trey Merritt Service: (none) Author Type: Physician Type: Progress Notes Filed: 10/23/2017 11:39 AM Note Text: I have read and reviewed the documentation and agree. I wish to add the following findings which have been dictated. Trey Merritt MD, PhD CNOV Observed: 10/23/2017 Status: COMPLETED Source: [facility] 11:20 AM [facility] REPOSITORY Office Visit (THORMN) SABINA FLORES ([id number]) 1940 M Date Time Provider Department 10/23/17 11:20 AM TREY MERRITT During your visit today, we recorded the following information about you: Temperature Pulse Blood pressure Weight 97.8 degrees 91/minute 131/60 52.2 kg Height 1.803 m Nano Deras, RN, RN 10/23/2017 11:39 AM Signed [facility] OUTPATIENT CONSULT NOTE Sabina Flores [id number] Requesting Provider: Dr. Bautista Thoracic Physician: Trey Merritt MD Chief Complaint: Esophageal stricture HPI: Sabina Flores is a 77 year old White male referred by Dr. Bautista for an opinion regarding management of Esophageal stricture. ECOG Score: 0 Living arrangement: Lives alone Functional status: Independent [employer] Strength #1 50 #2 50 #3 50 Unintentional weight loss over last 3 months: Yes, 7 gain weight back PAST MEDICAL HISTORY: PAST MEDICAL HISTORY Diagnosis Date - ABNORMAL LIVER FUNCTION STUDY 01/11/2005 Alkaline phosphatemia - Body mass index (BMI) less than or equal to 19 in adult 03/28/2017 - Carcinoma in situ of larynx 02/12/2014 - COPD (chronic obstructive pulmonary disease) (HCC) 01/13/2013 - DIVERTICULOSIS OF COLON W/O BLEED 01/11/2005 - Dysphagia 09/18/2017 - ESOPHAGEAL STRICTURE 01/11/2005 - 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 - Former tobacco use 09/18/2017 - History of laryngeal cancer 10/27/2014 - Interstitial lung disease (HCC) 02/09/2011 Ct chest 01/2011 - Iron deficiency anemias 01/11/2005 - Low serum alkaline phosphatase 09/20/2017 - Malignant neoplasm of larynx (HCC) 05/31/2017 - PEPTIC ULCER NOS 01/11/2005 - PERS HX OF ALCOHOLISM 01/11/2005 - Polycythemia 05/21/2013 - S/P partial gastrectomy 09/18/2017 - Severe protein-calorie malnutrition (HCC) 11/20/2016 - Shortness of breath 09/18/2017 - Squamous cell carcinoma of larynx (HCC) 02/08/2017 - Subclinical hypothyroidism 09/20/2017 - Tobacco use disorder 01/11/2005 - Unspecified asthma(493.90) 03/03/2011 pt not aware PAST SURGICAL HISTORY: PAST SURGICAL HISTORY Procedure Laterality Date - COLONOSCOP W/ OR W/O BRSH SPEC 2003 Colonoscopy - COLONOSCOP W/ OR W/O BRSH SPEC 02/20/2013 Colonoscopy - COLONOSCOP W/ OR W/O BRSH SPEC 03/30/16 Colonoscopy - EGD BIOPSY SINGLE/MULTIPLE 09/21/2017 - EGD W/O OR W/BRUSH/WASH 2003 EGD - EGD W/O OR W/BRUSH/WASH 02/20/13 EGD - ESOPH W/O BRSH SPEC BALLOON DIL 12-1-2003 Esophageal dilatation - LARYNGOSCOPY W/ BIOPSY 02/06/2014 - PARTIAL GASTRECTOMY 1970 bleeding ulcer - PAST SURGICAL HISTORY OF Left 08/29/2016 Floor of mouth resection, sialadochoplasty FAMILY HISTORY: FAMILY HISTORY Problem Relation Age of Onset - Cancer Brother lung cancer - Cancer Brother bone cancer - Cancer Brother brain tumor or cancer - Coronary Artery Disease Father age 64, [place] - None Mother age 95 SOCIAL HISTORY: Social History Substance Use Topics - Smoking status: Former Smoker Packs/day: 2.00 Years: 52.00 Types: Cigarettes Quit date: 09/01/2013 - Smokeless tobacco: Never Used - Alcohol use 6.0 oz/week 4 Cans of Beer (12oz) per week MEDICATIONS: Prior to Admission Medications: anagrelide (AGRYLIN) 0.5 mg capsule Take 1 capsule by mouth twice daily. ondansetron (ZOFRAN) 4 mg tablet Take 1 tablet by mouth every 6 hours as needed. mupirocin (BACTROBAN) 2 % ointment Apply 1 application to affected area twice daily. famotidine (PEPCID) 20 mg tablet Take 20 mg by mouth twice daily. oxyCODONE-acetaminophen (PERCOCET) 5-325 mg tablet Take 1 tablet by mouth every 4 hours as needed. Cholecalciferol, Vitamin D3, (VITAMIN D-3) 1,000 unit chew Take 1 tablet by mouth once daily. Chlorhexidine Gluconate (PERIDEX) 0.12 % solution Take 15 mL by mouth once daily. Swish for 30 seconds and then spit out. tiotropium-olodaterol (STIOLTO RESPIMAT) 2.5-2.5 mcg/actuation mist Inhale 2 Puffs as instructed once daily. fluticasone (FLOVENT) 110 mcg/actuation inhaler Inhale 1 Puff as instructed twice daily. allopurinol (ZYLOPRIM) 300 mg tablet Take 1 tablet by mouth once daily. This can be crushed. albuterol HFA (VENTOLIN HFA) 90 mcg/actuation inhaler Inhale 2 Puffs as instructed every 6 hours as needed for Wheezing/Shortness of Breath. diltiazem CD (CARDIZEM CD) 120 mg 24 hr capsule Take 120 mg by mouth twice daily. Vit A-Vit C-Rhrr-Wtebrwqx (ZINC, WITH A AND C, LOZENGES) lozg Take 1 tablet by mouth once daily. Let dissolve in mouth. hydroxyurea (HYDREA) 500 mg capsule Take 1 capsule by mouth once daily. ALLERGIES: ALLERGIES No Known Allergies Chemical Exposure: No Asbestos Exposure No COMPLETE REVIEW OF SYSTEMS Constitutional: Positive for fatigue and significant weight loss , Weight loss - Yes HEENT: Negative for frequent or significant headaches, No changes in hearing or vision, no nose bleeds or other nasal problems Resp: Positive for shortness of breath on exertion, shortness of breath limiting daily activity and shortness of breath after 2 flights of stairs Cardiovascular: Negative for chest pain, leg swelling or palpitations GI: Negative for abdominal discomfort, blood in stools or black stools or change in bowel habits : No history of dysuria, frequency, or incontinence and No difficulty urination, nocturia >1 times per night or hematuria Endo: Negative for cold or heat intolerance, polyuria, polydipsia and goiter Heme/Lymph: Negative for prolonged bleeding, bruising easily or swollen nodes Neurologic: No history or headaches, syncope, paralysis, seizures or tremors Integumentary: Negative for lesions, rash, and itching. Additional systems reviewed: No additional systems reviewed PHYSICAL EXAM BP 131/60 Pulse 91 Temp 97.8 Ht 5' 11 (1.80m) Wt 115 lb (52.2kg) SpO2 95% BMI 16.05 kg/(m2). see dictation TL Miranda RN, RN 10/23/2017 11:26 AM Signed AMBULATORY PATIENT EDUCATION READINESS TO LEARN Cognitive Ability: Alert and oriented Motivation To Learn: Interested Family Support: High - Very involved in pt care Instruction Provided To: Patient AND Family Patient Learns Best By: Multiple Methods Factors Affecting Learning: None Physical Limitations Affecting Learning: None LEARNING RESPONSE Diagnosis: Esophageal stricture Education Topic: Consultation Process Teaching Points: Logistics / Protocols /Complication Prevention Instruction/Supplemental Materials: Individual Instruction Patient/Family Response: Verbalizes understanding Follow up plan: Patient/Family to call Thoracic Surgery with any further questions Referral (Recommendation): None Teach completed, topic: consultation process TL Miranda MD, PhD 10/23/2017 11:39 AM Signed I have read and reviewed the documentation and agree. I wish to add the following findings which have been dictated. Trey Merritt MD, PhD Referring Provider: HERNESTO SARKAR [[id number]] Allergies As of Date: 10/23/2017 (No Known Allergies) Date Reviewed: 10/23/2017 Reviewed by: Valerie Hernandez - Fully Assessed Primary Visit Diagnosis:Stricture and stenosis of esophagus [K22.2] Prescriptions as of 10/23/2017 Sig: ANAGRELIDE 0.5 MG CAPSULE Take 1 capsule by mouth twice* ONDANSETRON HCL 4 MG TABLET Take 1 tablet by mouth every * MUPIROCIN 2 % TOPICAL OINTMENT Apply 1 application to affect* FAMOTIDINE 20 MG TABLET Take 20 mg by mouth twice kerline* OXYCODONE-ACETAMINOPHEN 5 MG-* Take 1 tablet by mouth every * CHOLECALCIFEROL (VITAMIN D3) * Take 1 tablet by mouth once d* CHLORHEXIDINE GLUCONATE 0.12 * Take 15 mL by mouth once cristiana* TIOTROPIUM 2.5 MCG-OLODATEROL* Inhale 2 Puffs as instructed * FLUTICASONE 110 MCG/ACTUATION* Inhale 1 Puff as instructed t* ALLOPURINOL 300 MG TABLET Take 1 tablet by mouth once d* ALBUTEROL SULFATE HFA 90 MCG/* Inhale 2 Puffs as instructed * DILTIAZEM SR 120 MG 24 HR CAP Take 120 mg by mouth twice da* VIT A-VIT V-QBKA-JBZAZESF MAT* Take 1 tablet by mouth once d* Patient not taking: Reported on 10/09/2017 HYDROXYUREA 500 MG CAPSULE Take 1 capsule by mouth once * Problem List As Of Date 10/23/2017 Noted Resolved Iron deficiency anemia [D50.9] INVALID FOR* Priority: Severe Peptic ulcer, unspecified site, unspecified as *INVALID FOR*10/30/2011 Esophageal stricture [K22.2] INVALID FOR* Priority: Moderate Diverticulosis of large intestine without hemor*INVALID FOR* Nonspecific abnormal results of liver function *INVALID FOR*03/31/2011 More... Personal history of alcoholism [F10.21] INVALID FOR*02/12/2014 Tobacco use disorder [F17.200] INVALID FOR*02/21/2016 Interstitial lung disease (HCC) [J84.9] INVALID FOR* Lung nodule [R91.1] INVALID FOR*04/14/2013 More... Asthma [J45.909] INVALID FOR* COPD (chronic obstructive pulmonary disease) (H*INVALID FOR* Priority: I Adenomatous colon polyp [D12.6] INVALID FOR* Polycythemia [D75.1] INVALID FOR*08/21/2016 Carcinoma in situ of larynx [D02.0] INVALID FOR* Back pain, chronic [M54.9, G89.29] INVALID FOR* History of laryngeal cancer [Z85.21] INVALID FOR* Colon cancer screening [Z12.11] INVALID FOR*03/30/2016 Oral lesion [K13.70] INVALID FOR*11/20/2016 Hypoxemia [R09.02] INVALID FOR* Severe protein-calorie malnutrition (HCC) [E43] INVALID FOR* More... Thrombocytosis (HCC) [D47.3] INVALID FOR* Priority: Severe Elevated protime [R79.1] INVALID FOR* Elevated bilirubin [R17] INVALID FOR* Shortness of breath [R06.02] INVALID FOR*09/22/2017 Priority: A More... Body mass index (BMI) less than or equal to 19 *INVALID FOR* Malignant neoplasm of larynx (HCC) [C32.9] INVALID FOR* More... 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 Vitamin D deficiency [E55.9] INVALID FOR* More... Hypoalbuminemia [E88.09] INVALID FOR* Prolonged INR [R79.1] INVALID FOR*09/22/2017 More... 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] INVALID FOR* Visit Notes: >> Nano Deras RN georges Oct 23, 2017 11:13 AM Status: Signed AMBULATORY PATIENT EDUCATION READINESS TO LEARN Cognitive Ability: Alert and oriented Motivation To Learn: Interested Family Support: High - Very involved in pt care Instruction Provided To: Patient AND Family Patient Learns Best By: Multiple Methods Factors Affecting Learning: None Physical Limitations Affecting Learning: None LEARNING RESPONSE Diagnosis: Esophageal stricture Education Topic: Consultation Process Teaching Points: Logistics / Protocols /Complication Prevention Instruction/Supplemental Materials: Individual Instruction Patient/Family Response: Verbalizes understanding Follow up plan: Patient/Family to call Thoracic Surgery with any further questions Referral (Recommendation): None Teach completed, topic: consultation process Nano Deras RN Disposition: Return if symptoms worsen or fail to improve, for RETURN TO CLINIC NEEDED. Follow-up and Disposition History Recorded Encounter Status:Closed by CLARISSA MARQUEZ, TREY Olsen PHD on 10/23/17 PROGRESS Observed: 10/23/2017 Status: COMPLETED Source: [facility] 11:03 AM [facility] REPOSITORY HNO ID: [id number] Author: Nano (Rn) TL Deras Service: (none) Author Type: Registered Nurse Type: Progress Notes Filed: 10/23/2017 11:39 AM Note Text: [facility] OUTPATIENT CONSULT NOTE Sabina Flores [id number] Requesting Provider: Dr. Bautista Thoracic Physician: Trey Merritt MD Chief Complaint: Esophageal stricture HPI: Sabina Flores is a 77 year old White male referred by Dr. Bautista for an opinion regarding management of Esophageal stricture. ECOG Score: 0 Living arrangement: Lives alone Functional status: Independent [employer] Whe[employer]le [employer] Strength #1 50 #2 50 #3 50 Unintentional weight loss over last 3 months: Yes, 7 gain weight back PAST MEDICAL HISTORY: PAST MEDICAL HISTORY Diagnosis Date - ABNORMAL LIVER FUNCTION STUDY 01/11/2005 Alkaline phosphatemia - Body mass index (BMI) less than or equal to 19 in adult 03/28/2017 - Carcinoma in situ of larynx 02/12/2014 - COPD (chronic obstructive pulmonary disease) (HCC) 01/13/2013 - DIVERTICULOSIS OF COLON W/O BLEED 01/11/2005 - Dysphagia 09/18/2017 - ESOPHAGEAL STRICTURE 01/11/2005 - 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 - Former tobacco use 09/18/2017 - History of laryngeal cancer 10/27/2014 - Interstitial lung disease (HCC) 02/09/2011 Ct chest 01/2011 - Iron deficiency anemias 01/11/2005 - Low serum alkaline phosphatase 09/20/2017 - Malignant neoplasm of larynx (HCC) 05/31/2017 - PEPTIC ULCER NOS 01/11/2005 - PERS HX OF ALCOHOLISM 01/11/2005 - Polycythemia 05/21/2013 - S/P partial gastrectomy 09/18/2017 - Severe protein-calorie malnutrition (HCC) 11/20/2016 - Shortness of breath 09/18/2017 - Squamous cell carcinoma of larynx (HCC) 02/08/2017 - Subclinical hypothyroidism 09/20/2017 - Tobacco use disorder 01/11/2005 - Unspecified asthma(493.90) 03/03/2011 pt not aware PAST SURGICAL HISTORY: PAST SURGICAL HISTORY Procedure Laterality Date - COLONOSCOP W/ OR W/O BRSH SPEC 2003 Colonoscopy - COLONOSCOP W/ OR W/O BRSH SPEC 02/20/2013 Colonoscopy - COLONOSCOP W/ OR W/O BRSH SPEC 03/30/16 Colonoscopy - EGD BIOPSY SINGLE/MULTIPLE 09/21/2017 - EGD W/O OR W/BRUSH/WASH 2003 EGD - EGD W/O OR W/BRUSH/WASH 02/20/13 EGD - ESOPH W/O BRSH SPEC BALLOON DIL 12--2003 Esophageal dilatation - LARYNGOSCOPY W/ BIOPSY 02/06/2014 - PARTIAL GASTRECTOMY 1970 bleeding ulcer - PAST SURGICAL HISTORY OF Left 08/29/2016 Floor of mouth resection, sialadochoplasty FAMILY HISTORY: FAMILY HISTORY Problem Relation Age of Onset - Cancer Brother lung cancer - Cancer Brother bone cancer - Cancer Brother brain tumor or cancer - Coronary Artery Disease Father age 64, [place] - None Mother age 95 SOCIAL HISTORY: Social History Substance Use Topics - Smoking status: Former Smoker Packs/day: 2.00 Years: 52.00 Types: Cigarettes Quit date: 09/01/2013 - Smokeless tobacco: Never Used - Alcohol use 6.0 oz/week 4 Cans of Beer (12oz) per week MEDICATIONS: Prior to Admission Medications: anagrelide (AGRYLIN) 0.5 mg capsule Take 1 capsule by mouth twice daily. ondansetron (ZOFRAN) 4 mg tablet Take 1 tablet by mouth every 6 hours as needed. mupirocin (BACTROBAN) 2 % ointment Apply 1 application to affected area twice daily. famotidine (PEPCID) 20 mg tablet Take 20 mg by mouth twice daily. oxyCODONE-acetaminophen (PERCOCET) 5-325 mg tablet Take 1 tablet by mouth every 4 hours as needed. Cholecalciferol, Vitamin D3, (VITAMIN D-3) 1,000 unit chew Take 1 tablet by mouth once daily. Chlorhexidine Gluconate (PERIDEX) 0.12 % solution Take 15 mL by mouth once daily. Swish for 30 seconds and then spit out. tiotropium-olodaterol (STIOLTO RESPIMAT) 2.5-2.5 mcg/actuation mist Inhale 2 Puffs as instructed once daily. fluticasone (FLOVENT) 110 mcg/actuation inhaler Inhale 1 Puff as instructed twice daily. allopurinol (ZYLOPRIM) 300 mg tablet Take 1 tablet by mouth once daily. This can be crushed. albuterol HFA (VENTOLIN HFA) 90 mcg/actuation inhaler Inhale 2 Puffs as instructed every 6 hours as needed for Wheezing/Shortness of Breath. diltiazem CD (CARDIZEM CD) 120 mg 24 hr capsule Take 120 mg by mouth twice daily. Vit A-Vit T-Whlc-Fbqfqbqw (ZINC, WITH A AND C, LOZENGES) lozg Take 1 tablet by mouth once daily. Let dissolve in mouth. hydroxyurea (HYDREA) 500 mg capsule Take 1 capsule by mouth once daily. ALLERGIES: ALLERGIES No Known Allergies Chemical Exposure: No Asbestos Exposure No COMPLETE REVIEW OF SYSTEMS Constitutional: Positive for fatigue and significant weight loss , Weight loss - Yes HEENT: Negative for frequent or significant headaches, No changes in hearing or vision, no nose bleeds or other nasal problems Resp: Positive for shortness of breath on exertion, shortness of breath limiting daily activity and shortness of breath after 2 flights of stairs Cardiovascular: Negative for chest pain, leg swelling or palpitations GI: Negative for abdominal discomfort, blood in stools or black stools or change in bowel habits : No history of dysuria, frequency, or incontinence and No difficulty urination, nocturia >1 times per night or hematuria Endo: Negative for cold or heat intolerance, polyuria, polydipsia and goiter Heme/Lymph: Negative for prolonged bleeding, bruising easily or swollen nodes Neurologic: No history or headaches, syncope, paralysis, seizures or tremors Integumentary: Negative for lesions, rash, and itching. Additional systems reviewed: No additional systems reviewed PHYSICAL EXAM BP 131/60 Pulse 91 Temp 97.8 Ht 5' 11 (1.80m) Wt 115 lb (52.2kg) SpO2 95% BMI 16.05 kg/(m2). see dictation TL MirandaOSTER CBC AND DIFF Collected: 10/18/2017 Status: F Source: [facility] 9:19 AM [facility] RE[facility] TYPE CODE TESTS RESULT OUT OF REFERENCE UNITS RANGE LAB WWBC 3.70-11.00 k/uL High Arleen WBC 13.65 Result Comment: Result checked and verified LAB WRBC 4.20-6.00 m/uL [place] RBC High 6.20 LAB WHGB 13.0-17.0 g/dL [place] Low Hemoglobin 12.1 LAB WHCT 39.0-51.0 % Arleen Hematocrit 41.3 LAB WMCV 80.0-100.0 fL [place] MCV Low 66.6 LAB WMCH 26.0-34.0 pg Arleen MCH Low 19.5 LAB WMCHC 30.5-36.0 g/dL [place] Low MCHC 29.3 Result Comment: Result checked and verified LAB WRDW 11.5-15.0 % High [place] RDW 29.1 LAB WPLT 150-400 k/uL High [place] 810 Platelet Cnt LAB WMPV 9.0-12.7 fL Arleen MPV 9.4 Performed By: #### WCBCDF, DIFF #### [facility] Proenza Schouer [address] [place], [place] [address] DIFFERENTIAL Collected: 10/18/2017 Status: F Source: [place] ([facility] LAB USE 9:19 AM [facility] ONLY) REPOSITORY TYPE CODE TESTS RESULT OUT OF REFERENCE UNITS RANGE LAB NEUT % Neut% 76 LAB LYMPH % 10 Lymph% LAB MONO % [place]% 4 LAB EOSIN % 6 Eosin% LAB BASO % Baso% 3 LAB META % Spring% 1 LAB RBCMOR Red SEE COMMENT Cell Morph Result Comment: Slight Polychromasia Anisocytosis Few Ovalocytes Few RBC Fragments LAB DIFCOM Diff SEE Comments COMMENT Result Comment: Left Shift Performed By: #### WCBCDF, DIFF #### [facility] Proenza Schouer [address] [place], [place] [address] ARLEEN CBC AND DIFF Collected: 10/11/2017 Status: F Source: [place] 10:45 AM [facility] REPOSITORY TYPE CODE TESTS RESULT OUT OF REFERENCE UNITS RANGE LAB WWBC 3.70-11.00 k/uL High [place] WBC 13.78 Result Comment: Result rechecked. LAB WRBC 4.20-6.00 m/uL [place] RBC High 6.36 LAB WHGB 13.0-17.0 g/dL [place] Low Hemoglobin 12.3 LAB WHCT 39.0-51.0 % [place] Hematocrit 41.3 LAB WMCV 80.0-100.0 fL [place] MCV Low 64.9 LAB WMCH 26.0-34.0 pg [place] MCH Low 19.3 LAB WMCHC 30.5-36.0 g/dL [place] Low MCHC 29.8 LAB WRDW 11.5-15.0 % [place] RDW High 29.7 LAB WPLT 150-400 k/uL [place] High Platelet Cnt 767 LAB WMPV 9.0-12.7 fL Arleen MPV Low 8.9 Result Comment: Test performed at: [facility], [address] [place] [address]. LAB CBCCOM Preliminary Comment result. Interpret with caution. Final results may vary. Results requested and read back by: Result Comment: WBC=14.18, [place] LAB WNEU % Arleen 82 Neut% LAB WLYM % [place] 10 Lymp% LAB WMON % [place] 5 [place]% LAB WEO % [place]leen 2 Eos% LAB WBAS % [place]leen 1 Baso% LAB WANEU 1.45-7.5 k/uL High 0 Arleen Abs Neut 11.30 LAB WALYM 1.00-4.0 k/uL 0 [place] Abs Lymp 1.38 LAB WAMON <0.87 k/uL [place] Abs [place] 0.69 LAB WAEO <0.46 k/uL [place] Abs Eos 0.28 LAB WABAS <0.11 k/uL High [place] Abs Baso 0.14 LAB WRBCM Arleen RBC Morph Slight Result Comment: Polychromasia Anisocytosis Moderate Ovalocytes Moderate RBC Fragments LAB WPLTE [place] Platelet Platelet Est estimate increased Performed By: #### WCBCDF #### [facility] [address] [place], [place] [address] CNOVSP Observed: 10/11/2017 Status: COMPLETED Source: [place] 10:10 AM [facility] REPOSITORY Visit (SP) Office (HEMAWS) ZONIASABINA Raúl ([id number]) 1940 M Date Time Provider Department 10/11/17 10:10 AM MAURA AGUILLON During your visit today, we recorded the following information about you: Temperature Pulse Blood pressure Weight 97.9 degrees 85/minute 113/61 52.4 kg Opal Ceballos LPN, XENIA 10/11/2017 10:10 AM Signed New pt. Discuss DX: thrombocytosis Maura Aguillon DO 10/11/2017 10:49 AM Signed Diagnosis: 1) JAK2 positive MPN. HPI: The patient is a 77-year-old male has a past medical history significant for COPD, GERD with previous peptic ulcer disease. He also has a history of head and neck cancer status post radiation and resection. History of esophageal dilation. He presented to the emergency department at [facility] in August with progressive dysphagia. Patient had a CT scan the abdomen and pelvis on 09/13/2017. Emphysematous changes were noted in the lung bases. There was a small amount of scarring in the left lung base. There was decreased attenuation of liver consistent with steatosis. Moderate splenomegaly was observed. No dimensions were rendered. There was heterogeneous enhancement of the spleen which was likely due to arterial phase of the exam. Pancreas was normal. Subsequent CT scan of the abdomen and pelvis when he was in emergency room on 09/23/2017 showed that there were new small bilateral pleural effusions, trace pericardial effusion which was new compared to the prior CT and again moderate splenomegaly with calcified splenic granulomas noted area no dimensions on the spleen were rendered. Review of previous CBCs available in the [facility] system indicate in October 2016 patient had a white count of 21,000. Differential was not performed. The hemoglobin was 13.8 g/dL and the total red blood cell count was 7,090,000/dL. Platelet count 805,000. [facility] where he underwent an EGD on 09/21. 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 Biopsies however showed no evidence of malignancy. Stricture was attributed to previous radiation treatment. He was seen by hematology inpatient due to elevated white count, red blood cell count and platelet count. Molecular studies for myeloproliferative disorders were sent. JAK2 was positive. He was given a prescription for Hydrea but he has not been able to take it due to the dysphagia. He is currently scheduled for EGD under general anesthesia with dilation on November 27. He's not had any unusual bleeding or unexplained bruising. He bruises easily on the backs of the forearms. He's not had any decrease in energy level. His appetite is doing pretty well. He lost weight when he is in the hospital but that has now stabilized. He is able to eat and drink most all foods. He only has inability to get down certain medications including Hydrea and Cardizem. He denies palpitations and exertional chest pain/pressure. He is not short of breath at rest. He has occasional sputum production. No history of hemoptysis. He does not feel like he has any difficulty wheezing. He has no left upper quadrant pain. No recent episodes of fever, shaking chills or night sweats. PMH, medications and allergies personally reviewed by me today. Any changes documented in appropriate section. ROS: Constitutional: See above. Neuro: Denies ANGELES, vertigo, dizziness and imbalance. Denies symptoms of neuropathy other than occasional tingling in his fingertips which is transient. HEENT: No recent change in voice, vision or hearing. Resp: See above. CVS: Denies PND, orthopnea and LE edema. GI: Denies dysgeusia. Denies symptoms of stomatitis. Denies dysphagia and odynophagia. Denies reflux, n/v, change in bowel habits and abdominal pain. : Denies dysuria or gross hematuria. No symptoms of bladder outlet obstruction. Endo: Denies hot flashes. Denies polyuria and polydipsia. Denies heat and cold intolerance. Musculoskeletal: Denies bone, back, joint and muscular pain. Derm: Denies rash. Denies jaundice and diffuse pruritis. Heme: See above. Psych: Normal mood. PHYSICAL EXAM: Vitals: Blood pressure 113/61, pulse 85, temperature 36.6 ?C (97.9 ?F), weight 52.4 kg (115 lb 8 oz). Thin, but well-appearing and in no acute distress. EYES: Sclerae are anicteric bilaterally. NECK: Supple. LYMPHATIC: There is no palpable cervical, supraclavicular or axillary adenopathy. RESPIRATORY: Inspiratory breath sounds are of diminished intensity in all michaels. No rales, wheezes or rhonchi. CARDIOVASCULAR: Rhythm is regular. Normal intensity S1/S2. ABDOMEN: The abdomen is nondistended. I cannot appreciate splenomegaly. No tenderness. Extremities: No swelling or edema. SKIN: No jaundice or rash. No petechiae. NEUROLOGIC: service desk associate II-XII are grossly intact. No focal motor weakness. MUSCULOSKELETAL: No muscle wasting. 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 He has a remote history of bleeding gastric ulcer 50 years ago status post surgery. Otherwise no unusual bleeding or unexplained bruising. No known history of coronary artery or peripheral arterial disease. Risk factors for cardiovascular disease include hypertension and history of smoking. -I discussed with the patient and his family the natural history, treated course, and prognosis of MPNs. -Platelet count observed one-time to be over 1 million which could potentially put him at increased risk of bleeding. Therefore, we'll start on anagrelide 0.5 mg twice a day. Hydrea capsules cannot be broken apart. Once esophageal stricture dilated and he is swallowing better he'll be rotated back to Hydrea. Plan on bone marrow biopsy at some point in November or early fall. Plan: -Hold Hydrea. -Begin anagrelide 0.5 mg twice a day. -Baseline CBC today. Recheck in 1 week. Dose adjust anagrelide accordingly. -Office visit with CBC in about 6 weeks. -He will continue under the care of his primary care physician for management of other modifiable cardiovascular risk factors. Maura Aguillon DO Referring Provider: HERNESTO SARKAR [[id number]] Allergies As of Date: 10/11/2017 (No Known Allergies) Date Reviewed: 10/11/2017 Reviewed by: Opal Shen (Xenia) XENIA Ceballos - Fully Assessed Reason for Visit: New Patient [[id number]] Primary Visit Diagnosis:Myeloproliferative disorder (HCC) [D47.1] Other Visit Diagnoses:JAK2 V617F mutation [Z15.89] Esophageal stricture [K22.2] Order(s):ARLEEN CBC AND DIFF [SQWCBCDF] Order #: [id number] FUTURE anagrelide (AGRYLIN) 0.5 mg capsuleTake 1 capsule by mouth twice daily.Disp: 60 capsuleRfl: 1 ondansetron (ZOFRAN) 4 mg tabletTake 1 tablet by mouth every 6 hours as needed.Disp: 60 tabletRfl: 2 Follow-up and Disposition History Recorded Prescriptions as of 10/11/2017 Sig: ONDANSETRON HCL 4 MG TABLET Take 1 tablet by mouth every * MUPIROCIN 2 % TOPICAL OINTMENT Apply 1 application to affect* OXYCODONE-ACETAMINOPHEN 5 MG-* Take 1 tablet by mouth every * CHOLECALCIFEROL (VITAMIN D3) * Take 1 tablet by mouth once d* CHLORHEXIDINE GLUCONATE 0.12 * Take 15 mL by mouth once cristiana* TIOTROPIUM 2.5 MCG-OLODATEROL* Inhale 2 Puffs as instructed * FLUTICASONE 110 MCG/ACTUATION* Inhale 1 Puff as instructed t* ALLOPURINOL 300 MG TABLET Take 1 tablet by mouth once d* ALBUTEROL SULFATE HFA 90 MCG/* Inhale 2 Puffs as instructed * ANAGRELIDE 0.5 MG CAPSULE Take 1 capsule by mouth twice* DILTIAZEM SR 120 MG 24 HR CAP Take 120 mg by mouth twice da* FAMOTIDINE 20 MG TABLET Take 20 mg by mouth twice kerline* VIT A-VIT N-JELY-RATMXAGZ MAT* Take 1 tablet by mouth once d* Patient not taking: Reported on 10/09/2017 HYDROXYUREA 500 MG CAPSULE Take 1 capsule by mouth once * Patient not taking: Reported on 10/03/2017 Problem List As Of Date 10/11/2017 Noted Resolved Iron deficiency anemia [D50.9] INVALID FOR* Priority: Severe Peptic ulcer, unspecified site, unspecified as *INVALID FOR*10/30/2011 Esophageal stricture [K22.2] INVALID FOR* Priority: Moderate Diverticulosis of large intestine without hemor*INVALID FOR* Nonspecific abnormal results of liver function *INVALID FOR*03/31/2011 More... Personal history of alcoholism [F10.21] INVALID FOR*02/12/2014 Tobacco use disorder [F17.200] INVALID FOR*02/21/2016 Interstitial lung disease (HCC) [J84.9] INVALID FOR* Lung nodule [R91.1] INVALID FOR*04/14/2013 More... Asthma [J45.909] INVALID FOR* COPD (chronic obstructive pulmonary disease) (H*INVALID FOR* Priority: I Adenomatous colon polyp [D12.6] INVALID FOR* Polycythemia [D75.1] INVALID FOR*08/21/2016 Carcinoma in situ of larynx [D02.0] INVALID FOR* Back pain, chronic [M54.9, G89.29] INVALID FOR* History of laryngeal cancer [Z85.21] INVALID FOR* Colon cancer screening [Z12.11] INVALID FOR*03/30/2016 Oral lesion [K13.70] INVALID FOR*11/20/2016 Hypoxemia [R09.02] INVALID FOR* Severe protein-calorie malnutrition (HCC) [E43] INVALID FOR* More... Thrombocytosis (HCC) [D47.3] INVALID FOR* Priority: Severe Elevated protime [R79.1] INVALID FOR* Elevated bilirubin [R17] INVALID FOR* Shortness of breath [R06.02] INVALID FOR*09/22/2017 Priority: A More... Body mass index (BMI) less than or equal to 19 *INVALID FOR* Malignant neoplasm of larynx (HCC) [C32.9] INVALID FOR* More... 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 Vitamin D deficiency [E55.9] INVALID FOR* More... Hypoalbuminemia [E88.09] INVALID FOR* Prolonged INR [R79.1] INVALID FOR*09/22/2017 More... 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] INVALID FOR* Visit Notes: >> Opal Shen ([employer]) XENIA Ceballos Alicia Oct 11, 2017 9:23 AM Status: Signed New pt. Discuss DX: thrombocytosis Encounter Status:Closed by MAURA AGUILLON DO on 10/11/17 PROGRESS Observed: 10/11/2017 Status: COMPLETED Source: [place] 10:04 AM [facility] REPOSITORY HNO ID: [id number] Author: Maura Aguillon Service: (none) Author Type: Physician Type: Progress Notes Filed: 10/11/2017 10:49 AM Note Text: Diagnosis: 1) JAK2 positive MPN. HPI: The patient is a 77-year-old male has a past medical history significant for COPD, GERD with previous peptic ulcer disease. He also has a history of head and neck cancer status post radiation and resection. History of esophageal dilation. He presented to the emergency department at [facility] in August with progressive dysphagia. Patient had a CT scan the abdomen and pelvis on 09/13/2017. Emphysematous changes were noted in the lung bases. There was a small amount of scarring in the left lung base. There was decreased attenuation of liver consistent with steatosis. Moderate splenomegaly was observed. No dimensions were rendered. There was heterogeneous enhancement of the spleen which was likely due to arterial phase of the exam. Pancreas was normal. Subsequent CT scan of the abdomen and pelvis when he was in emergency room on 09/23/2017 showed that there were new small bilateral pleural effusions, trace pericardial effusion which was new compared to the prior CT and again moderate splenomegaly with calcified splenic granulomas noted area no dimensions on the spleen were rendered. Review of previous CBCs available in the [facility] system indicate in October 2016 patient had a white count of 21,000. Differential was not performed. The hemoglobin was 13.8 g/dL and the total red blood cell count was 7,090,000/dL. Platelet count 805,000. He was referred to [facility] where he underwent an EGD on 09/21. 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 Biopsies however showed no evidence of malignancy. Stricture was attributed to previous radiation treatment. He was seen by hematology inpatient due to elevated white count, red blood cell count and platelet count. Molecular studies for myeloproliferative disorders were sent. JAK2 was positive. He was given a prescription for Hydrea but he has not been able to take it due to the dysphagia. He is currently scheduled for EGD under general anesthesia with dilation on November 27. He's not had any unusual bleeding or unexplained bruising. He bruises easily on the backs of the forearms. He's not had any decrease in energy level. His appetite is doing pretty well. He lost weight when he is in the hospital but that has now stabilized. He is able to eat and drink most all foods. He only has inability to get down certain medications including Hydrea and Cardizem. He denies palpitations and exertional chest pain/pressure. He is not short of breath at rest. He has occasional sputum production. No history of hemoptysis. He does not feel like he has any difficulty wheezing. He has no left upper quadrant pain. No recent episodes of fever, shaking chills or night sweats. PMH, medications and allergies personally reviewed by me today. Any changes documented in appropriate section. ROS: Constitutional: See above. Neuro: Denies ANGELES, vertigo, dizziness and imbalance. Denies symptoms of neuropathy other than occasional tingling in his fingertips which is transient. HEENT: No recent change in voice, vision or hearing. Resp: See above. CVS: Denies PND, orthopnea and LE edema. GI: Denies dysgeusia. Denies symptoms of stomatitis. Denies dysphagia and odynophagia. Denies reflux, n/v, change in bowel habits and abdominal pain. : Denies dysuria or gross hematuria. No symptoms of bladder outlet obstruction. Endo: Denies hot flashes. Denies polyuria and polydipsia. Denies heat and cold intolerance. Musculoskeletal: Denies bone, back, joint and muscular pain. Derm: Denies rash. Denies jaundice and diffuse pruritis. Heme: See above. Psych: Normal mood. PHYSICAL EXAM: Vitals: Blood pressure 113/61, pulse 85, temperature 36.6 ?C (97.9 ?F), weight 52.4 kg (115 lb 8 oz). Thin, but well-appearing and in no acute distress. EYES: Sclerae are anicteric bilaterally. NECK: Supple. LYMPHATIC: There is no palpable cervical, supraclavicular or axillary adenopathy. RESPIRATORY: Inspiratory breath sounds are of diminished intensity in all michaels. No rales, wheezes or rhonchi. CARDIOVASCULAR: Rhythm is regular. Normal intensity S1/S2. ABDOMEN: The abdomen is nondistended. I cannot appreciate splenomegaly. No tenderness. Extremities: No swelling or edema. SKIN: No jaundice or rash. No petechiae. NEUROLOGIC: service desk associate II-XII are grossly intact. No focal motor weakness. MUSCULOSKELETAL: No muscle wasting. 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 He has a remote history of bleeding gastric ulcer 50 years ago status post surgery. Otherwise no unusual bleeding or unexplained bruising. No known history of coronary artery or peripheral arterial disease. Risk factors for cardiovascular disease include hypertension and history of smoking. -I discussed with the patient and his family the natural history, treated course, and prognosis of MPNs. -Platelet count observed one-time to be over 1 million which could potentially put him at increased risk of bleeding. Therefore, we'll start on anagrelide 0.5 mg twice a day. Hydrea capsules cannot be broken apart. Once esophageal stricture dilated and he is swallowing better he'll be rotated back to Hydrea. Plan on bone marrow biopsy at some point in November or early fall. Plan: -Hold Hydrea. -Begin anagrelide 0.5 mg twice a day. -Baseline CBC today. Recheck in 1 week. Dose adjust anagrelide accordingly. -Office visit with CBC in about 6 weeks. -He will continue under the care of his primary care physician for management of other modifiable cardiovascular risk factors. Maura Aguillon DO CNOV Observed: 10/09/2017 Status: COMPLETED Source: GWINN 2:30 PM [facility] REPOSITORY Office Visit (GASTMN) SABINA FLORES ([id number]) 1940 M Date Time Provider Department 10/09/17 2:30 PM ANIA BAUTISTA During your visit today, we recorded the following information about you: Pulse Blood pressure Weight Height 86/minute 112/66 52.8 kg 1.803 m Philip Kelly MD 10/09/2017 3:50 PM Signed DEPARTMENT OF GASTROENTEROLOGY - NEW PATIENT/CONSULT REASON FOR VISIT Sabina Flores is a 77 year old male who is scheduled at the request of Er Staff for New Patient (esophageal stricture ). My final recommendations will be communicated back to the requesting physician by the way of the shared medical record, fax, or via US Mail HISTORY OF PRESENT ILLNESS 77 YO M presents to clinic for an evaluation of pharyngeal ?and esophageal dysphagia, esophageal stricture for which he underwent EGD with dilation on 09/21. - Recurrent dysphagia started 10-12 years and underwent EGD dilation at that time. He has been doing ok in swallowing food, occasional has issues in swallowing pills, feeling like stuck at lower neck. [place] is ok Weight gain 6 lbs in about 2 weeks. No abdominal pain, nausea, vomiting, belching, gas, constipation or diarrhea, any joint pain, skin rash or neurological changes. ? was admitted OSH 09/23 for SOB, foreign body impaction (iron pill), and aspiration pneumonia (treated with zosyn and cipro). Offerred PEG tube during the adimission and patient declined. Also treated with prednisone for COPD exacerbation. 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 and thrombocytosis to see hematology EGD dilation (09/21/2017): - Malignant-appearing esophageal stenosis. Biopsied. - Normal stomach. - Normal examined duodenum.? Path (09/21/2017): Esophageal stricture, biopsy - Ulcerated squamous mucosa with focal active inflammation. - Pigmented crystalline material, probably iron pill. - No evidence of malignancy. Barium swallow and esophagram (09/20/2017): SHORT SEGMENT BENIGN-APPEARING NARROWING IN THE PROXIMAL ESOPHAGUS (JUST CAUDAD TO THE CERVICOTHORACIC JUNCTION). CT chest (09/17/2017):small bilateral peural effusions with underlying bibasilar atelectasis and/or infiltrate superimposed on scarring in the lower lobes as well as in the upper lobes Colonoscopy (2016): One 10 mm polyp in the proximal ascending colon. Biopsied. Injected. - One 5 mm polyp at 35 cm proximal to the anus. Resected and retrieved. - One 10 mm polyp at 20 cm proximal to the anus. Resected and retrieved. - Diverticulosis in the sigmoid colon and in the descending colon.? Path (2016): tubular adenoma. 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 - Former tobacco use 09/18/2017 - History of laryngeal cancer 10/27/2014 - Interstitial lung disease (HCC) 02/09/2011 Ct chest 01/2011 - Iron deficiency anemias 01/11/2005 - Low serum alkaline phosphatase 09/20/2017 - Malignant neoplasm of larynx (HCC) 05/31/2017 - PEPTIC ULCER NOS 01/11/2005 - PERS HX OF ALCOHOLISM 01/11/2005 - Polycythemia 05/21/2013 - S/P partial gastrectomy 09/18/2017 - Severe protein-calorie malnutrition (HCC) 11/20/2016 - Shortness of breath 09/18/2017 - Squamous cell carcinoma of larynx (HCC) 02/08/2017 - Subclinical hypothyroidism 09/20/2017 - Tobacco use disorder 01/11/2005 - Unspecified asthma(493.90) 03/03/2011 PAST SURGICAL HISTORY Procedure Laterality Date - COLONOSCOP W/ OR W/O [facility] SPEC 2003 Colonoscopy - COLONOSCOP W/ OR W/O [facility] SPEC 02/20/2013 Colonoscopy - COLONOSCOP W/ OR W/O [facility] SPEC 03/30/16 Colonoscopy - EGD BIOPSY SINGLE/MULTIPLE 09/21/2017 - EGD W/O OR W/BRUSH/WASH 2003 EGD - EGD W/O OR W/BRUSH/WASH 02/20/13 EGD - ESOPH W/O [facility] SPEC [place]ALL[place] DIL 12-1-2003 Esophageal dilatation - LARYNGOSCOPY W/ BIOPSY 02/06/2014 - PARTIAL GASTRECTOMY 1970 - PAST SURGICAL HISTORY OF Left 08/29/2016 Floor of mouth resection, sialadochoplasty Current Outpatient Prescriptions: mupirocin (BACTROBAN) 2 % ointment Apply 1 application to affected area twice daily. Disp: Rfl: famotidine (PEPCID) 20 mg tablet Take 20 mg by mouth twice daily. Disp: Rfl: ondansetron (ZOFRAN) 4 mg tablet Take 4 mg by mouth every 6 hours as needed. Disp: Rfl: oxyCODONE-acetaminophen (PERCOCET) 5-325 mg tablet Take 1 tablet by mouth every 4 hours as needed. Disp: Rfl: Cholecalciferol, Vitamin D3, (VITAMIN D-3) 1,000 unit chew Take 1 tablet by mouth once daily. Disp: 30 tablet Rfl: 3 Chlorhexidine Gluconate (PERIDEX) 0.12 % solution Take 15 mL by mouth once daily. Swish for 30 seconds and then spit out. Disp: 30 mL Rfl: 1 tiotropium-olodaterol (STIOLTO RESPIMAT) 2.5-2.5 mcg/actuation mist Inhale 2 Puffs as instructed once daily. Disp: Rfl: fluticasone (FLOVENT) 110 mcg/actuation inhaler Inhale 1 Puff as instructed twice daily. Disp: 1 Inhaler Rfl: 1 allopurinol (ZYLOPRIM) 300 mg tablet Take 1 tablet by mouth once daily. This can be crushed. Disp: 30 tablet Rfl: 1 albuterol HFA (VENTOLIN HFA) 90 mcg/actuation inhaler Inhale 2 Puffs as instructed every 6 hours as needed for Wheezing/Shortness of Breath. Disp: 1 Inhaler Rfl: 6 diltiazem CD (CARDIZEM CD) 120 mg 24 hr capsule Take 120 mg by mouth twice daily. Disp: Rfl: Vit A-Vit U-Vmcd-Yoxphvre (ZINC, WITH A AND C, LOZENGES) lozg Take 1 tablet by mouth once daily. Let dissolve in mouth. (Patient not taking: Reported on 10/09/2017 ) Disp: 30 Lozenge Rfl: 1 hydroxyurea (HYDREA) 500 mg capsule Take 1 capsule by mouth once daily. (Patient not taking: Reported on 10/03/2017 ) Disp: 30 capsule Rfl: 1 No current facility-administered medications for this visit. ALLERGIES No Known Allergies Social History Marital status: Spouse name: Years of education: Number of children: Social History Main Topics Smoking status: Former Smoker Packs/day: 2.00 Years: 52.00 Types: Cigarettes Quit date: 09/01/2013 Smokeless tobacco: Never Used Alcohol use: Yes 6.0 oz/week Cans of Beer (12oz): 4 per week Drug use: No Sexual activity: No FAMILY HISTORY (grandparents, parents, brothers, sisters, aunts, or uncles) Liver Problems: No Ulcerative Colitis: No Crohn's Disease: No Colon Cancer: No Colon Polyps: No IBS: No Celiac disease: No Bleeding Disorders: No GI SPECIFIC REVIEW OF SYMPTOMS Difficulty swallowing / foods sticking in throat: yes Heartburn: no Hoarseness: no Chronic cough: no Regurgitation: no Chest pain: no Filling up quickly at meals:no Loss of appetite: no Nausea: no Vomiting: no Abdominal pain: no Recent change in bowel movements: no Bloody or black, bowel movements: no Constipation: no Diarrhea: no Loss of control of bowel movements: no Night sweats: no Fever: no Chills: no Thought or memory problems: no Fluid in abdomen (ascites): no Prominent leg swelling: no Vomiting blood: no Recent change in weight: No REVIEW OF SYSTEMS General: No fevers, sweats, chills, nightsweats, change in appetite. HEENT: No changes in hearing or vision, no nose bleeds, discharge or congestion Cardiovascular: No limb swelling, palpitations, PND, or orthopnea. GI: See HPI : No urinary burning urination or change in urine color. PAST MEDICAL HISTORY Colon polyps: yes Colon cancer: no Other cancer: yes vocal cord cancer Radiation / Chemotherapy: yes Radiation Crohn's disease / Ulcerative colitis: no High cholesterol or triglycerides: no Ulcers: no Gallstones: no Hepatitis / Jaundice: no Heart Disease: no Lung Disease: yes Liver problems: no Thyroid disease: no Kidney stones: no Pancreatitis: yes Diabetes: no Arthritis: no Rheumatic fever: no Gastrointestinal bleeding: no Depression or other mental illness: no Other personal illness: none PHYSICAL EXAMINATION BP 112/66 Pulse 86 Ht 5' 11 (1.80m) Wt 116 lb 6 oz (52.8kg) SpO2 95% BMI 16.24 kg/(m2). Gen: Well appearing, seated upright in no discomfort CVS: S1S2+, NSR RS: Non labored respiration, b/l air entry equal, no added BS Abdo: soft, non distended, non tender,no palpable hepatosplenomegaly, BS normoactive RECENT LABS CBC: WBC (k/uL) Date Value 09/22/2017 22.80 (H) 09/21/2017 27.88 (H) Hematocrit (%) Date Value 09/22/2017 41.2 MCV (fL) Date Value 09/22/2017 61.7 (L) Platelet Count (k/uL) Date Value 09/22/2017 964 (H) Lymph% (%) Date Value 09/22/2017 4.3 Comprehensive Metabolic Panel: Glucose (mg/dL) Date Value 09/22/2017 80 BUN (mg/dL) Date Value 09/22/2017 7 (L) Creatinine (mg/dL) Date Value 09/22/2017 1.04 Sodium (mmol/L) Date Value 09/22/2017 140 Potassium (mmol/L) Date Value 09/22/2017 3.4 (L) Chloride (mmol/L) Date Value 09/22/2017 103 CO2 (mmol/L) Date Value 09/22/2017 24 Protein, Total (g/dL) Date Value 09/22/2017 4.7 (L) Albumin (g/dL) Date Value 09/22/2017 2.7 (L) Calcium (mg/dL) Date Value 09/22/2017 7.9 (L) Alkaline Phosphatase (U/L) Date Value 09/22/2017 66 Bilirubin, Total (mg/dL) Date Value 09/22/2017 0.4 AST (U/L) Date Value 09/22/2017 14 ALT (U/L) Date Value 09/22/2017 10 IMPRESSION 1. Pharyngeal dysphageal, only to big pills such as iron pills 2. hx of esophageal stricture s/p EGD 09/21 3. hx of largynx carcinoma s/p surgical resection Plans: 1. EGD with dilation and biopsies under anes 2. Discussed with diet and life measures. 3. Discussed with the patient about the endoscopic and related pathology results. 4 Continue current medications 5. Follow up with hematology this . 6. Follow up with us after review the results Ania Bautista MD October 09, 2017 2:29 PM I saw and evaluated the patient. I reviewed the History, Exam, and Plan as documented by the resident/fellow. The following reflects my findings: Dysphagia to solids noted about 14 years ago at which time an upper esophageal stricture was noted and dilation was effecitve for many years. He avoids meat but pills get impacted. Reviewed esophagram. Stricture looks benign. Recent biopsies no cancer. I would repeat EGD and perform dilation for relief and repeat biopsies if indicated. Philip Kelly MD,MACP,GARRETT Bautista MD 10/09/2017 3:39 PM Signed 1. EGD with dilation and biopsies under anes 2. Discussed with diet and life measures. 3. Discussed with the patient about the endoscopic and related pathology results. 4 Continue current medications 5. Follow up with hematology this . 6. Follow up with us after review the results ? Referring Provider: ER STAFF [[id number]] Allergies As of Date: 10/09/2017 (No Known Allergies) Date Reviewed: 10/09/2017 Reviewed by: Kathleen Vazquez Ma - Fully Assessed Reason for Visit: New Patient [[id number]] Cmt: esophageal stricture Primary Visit Diagnosis:Esophageal stricture [K22.2] Order(s):EGD DILATION GEN ANES [[id number]] Order #: [id number] FUTURE Prescriptions as of 10/09/2017 Sig: MUPIROCIN 2 % TOPICAL OINTMENT Apply 1 application to affect* FAMOTIDINE 20 MG TABLET Take 20 mg by mouth twice kerline* ONDANSETRON HCL 4 MG TABLET Take 4 mg by mouth every 6 ho* OXYCODONE-ACETAMINOPHEN 5 MG-* Take 1 tablet by mouth every * CHOLECALCIFEROL (VITAMIN D3) * Take 1 tablet by mouth once d* CHLORHEXIDINE GLUCONATE 0.12 * Take 15 mL by mouth once cristiana* TIOTROPIUM 2.5 MCG-OLODATEROL* Inhale 2 Puffs as instructed * FLUTICASONE 110 MCG/ACTUATION* Inhale 1 Puff as instructed t* ALLOPURINOL 300 MG TABLET Take 1 tablet by mouth once d* ALBUTEROL SULFATE HFA 90 MCG/* Inhale 2 Puffs as instructed * DILTIAZEM SR 120 MG 24 HR CAP Take 120 mg by mouth twice da* VIT A-VIT R-WRZQ-NMACTVEY MAT* Take 1 tablet by mouth once d* Patient not taking: Reported on 10/09/2017 HYDROXYUREA 500 MG CAPSULE Take 1 capsule by mouth once * Patient not taking: Reported on 10/03/2017 Medication notes this encounter DILTIAZEM SR 120 MG 24 HR CAP >> July Taylorus Carlin 10/09/2017 2:23 PM >> TAYLOR YUMIKO, JulyOct 09, 2017 2:23 PM Patient can not swallow the pill HYDROXYUREA 500 MG CAPSULE >> July Taylor Ma 10/09/2017 2:23 PM >> TAYLOR YUMIKO, JulyOct 09, 2017 2:23 PM Patient can not swallow the pill Problem List As Of Date 10/09/2017 Noted Resolved Iron deficiency anemia [D50.9] INVALID FOR* Priority: Severe Peptic ulcer, unspecified site, unspecified as *INVALID FOR*10/30/2011 Esophageal stricture [K22.2] INVALID FOR* Priority: Moderate Diverticulosis of large intestine without hemor*INVALID FOR* Nonspecific abnormal results of liver function *INVALID FOR*03/31/2011 More... Personal history of alcoholism [F10.21] INVALID FOR*02/12/2014 Tobacco use disorder [F17.200] INVALID FOR*02/21/2016 Interstitial lung disease (HCC) [J84.9] INVALID FOR* Lung nodule [R91.1] INVALID FOR*04/14/2013 More... Asthma [J45.909] INVALID FOR* COPD (chronic obstructive pulmonary disease) (H*INVALID FOR* Priority: I Adenomatous colon polyp [D12.6] INVALID FOR* Polycythemia [D75.1] INVALID FOR*08/21/2016 Carcinoma in situ of larynx [D02.0] INVALID FOR* Back pain, chronic [M54.9, G89.29] INVALID FOR* History of laryngeal cancer [Z85.21] INVALID FOR* Colon cancer screening [Z12.11] INVALID FOR*03/30/2016 Oral lesion [K13.70] INVALID FOR*11/20/2016 Hypoxemia [R09.02] INVALID FOR* Severe protein-calorie malnutrition (HCC) [E43] INVALID FOR* More... Thrombocytosis (HCC) [D47.3] INVALID FOR* Priority: Severe Elevated protime [R79.1] INVALID FOR* Elevated bilirubin [R17] INVALID FOR* Shortness of breath [R06.02] INVALID FOR*09/22/2017 Priority: A More... Body mass index (BMI) less than or equal to 19 *INVALID FOR* Malignant neoplasm of larynx (HCC) [C32.9] INVALID FOR* More... 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 Vitamin D deficiency [E55.9] INVALID FOR* More... Hypoalbuminemia [E88.09] INVALID FOR* Prolonged INR [R79.1] INVALID FOR*09/22/2017 More... Subclinical hypothyroidism [E03.9] INVALID FOR* Low serum alkaline phosphatase [R74.8] INVALID FOR* Elevated blood pressure reading [R03.0] INVALID FOR* Other instructions from your clinician: 1. EGD with dilation and biopsies under anes 2. Discussed with diet and life measures. 3. Discussed with the patient about the endoscopic and related pathology results. 4 Continue current medications 5. Follow up with hematology this . 6. Follow up with us after review the results ? Encounter Status:Closed by PHILIP KELLY MD on 10/09/17 PROGRESS Observed: 10/09/2017 Status: COMPLETED Source: [facility] 2:29 PM [facility] REPOSITORY HNO ID: [id number] Author: Philip Kelly Service: (none) Author Type: Physician Type: Progress Notes Filed: 10/09/2017 3:50 PM Note Text: DEPARTMENT OF GASTROENTEROLOGY - NEW PATIENT/CONSULT REASON FOR VISIT Sabina Flores is a 77 year old male who is scheduled at the request of Er Staff for New Patient (esophageal stricture ). My final recommendations will be communicated back to the requesting physician by the way of the shared medical record, fax, or via US Mail HISTORY OF PRESENT ILLNESS 77 YO M presents to clinic for an evaluation of pharyngeal ?and esophageal dysphagia, esophageal stricture for which he underwent EGD with dilation on 09/21. - Recurrent dysphagia started 10-12 years and underwent EGD dilation at that time. He has been doing ok in swallowing food, occasional has issues in swallowing pills, feeling like stuck at lower neck. [place] is ok Weight gain 6 lbs in about 2 weeks. No abdominal pain, nausea, vomiting, belching, gas, constipation or diarrhea, any joint pain, skin rash or neurological changes. ? was admitted OSH 09/23 for SOB, foreign body impaction (iron pill), and aspiration pneumonia (treated with zosyn and cipro). Offerred PEG tube during the adimission and patient declined. Also treated with prednisone for COPD exacerbation. 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 and thrombocytosis to see hematology EGD dilation (09/21/2017): - Malignant-appearing esophageal stenosis. Biopsied. - Normal stomach. - Normal examined duodenum.? Path (09/21/2017): Esophageal stricture, biopsy - Ulcerated squamous mucosa with focal active inflammation. - Pigmented crystalline material, probably iron pill. - No evidence of malignancy. Barium swallow and esophagram (09/20/2017): SHORT SEGMENT BENIGN-APPEARING NARROWING IN THE PROXIMAL ESOPHAGUS (JUST CAUDAD TO THE CERVICOTHORACIC JUNCTION). CT chest (09/17/2017):small bilateral peural effusions with underlying bibasilar atelectasis and/or infiltrate superimposed on scarring in the lower lobes as well as in the upper lobes Colonoscopy (2015): One 10 mm polyp in the proximal ascending colon. Biopsied. Injected. - One 5 mm polyp at 35 cm proximal to the anus. Resected and retrieved. - One 10 mm polyp at 20 cm proximal to the anus. Resected and retrieved. - Diverticulosis in the sigmoid colon and in the descending colon.? Path (2016): tubular adenoma. 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 - Former tobacco use 09/18/2017 - History of laryngeal cancer 10/27/2014 - Interstitial lung disease (HCC) 02/09/2011 Ct chest 01/2011 - Iron deficiency anemias 01/11/2005 - Low serum alkaline phosphatase 09/20/2017 - Malignant neoplasm of larynx (HCC) 05/31/2017 - PEPTIC ULCER NOS 01/11/2005 - PERS HX OF ALCOHOLISM 01/11/2005 - Polycythemia 05/21/2013 - S/P partial gastrectomy 09/18/2017 - Severe protein-calorie malnutrition (HCC) 11/20/2016 - Shortness of breath 09/18/2017 - Squamous cell carcinoma of larynx (HCC) 02/08/2017 - Subclinical hypothyroidism 09/20/2017 - Tobacco use disorder 01/11/2005 - Unspecified asthma(493.90) 03/03/2011 PAST SURGICAL HISTORY Procedure Laterality Date - COLONOSCOP W/ OR W/O BRSH SPEC 2003 Colonoscopy - COLONOSCOP W/ OR W/O BRSH SPEC 02/20/2013 Colonoscopy - COLONOSCOP W/ OR W/O BRSH SPEC 03/30/16 Colonoscopy - EGD BIOPSY SINGLE/MULTIPLE 09/21/2017 - EGD W/O OR W/BRUSH/WASH 2003 EGD - EGD W/O OR W/BRUSH/WASH 02/20/13 EGD - ESOPH W/O BRSH SPEC BALLOON DIL 12-1-2003 Esophageal dilatation - LARYNGOSCOPY W/ BIOPSY 02/06/2014 - PARTIAL GASTRECTOMY 1970 - PAST SURGICAL HISTORY OF Left 08/29/2016 Floor of mouth resection, sialadochoplasty Current Outpatient Prescriptions: mupirocin (BACTROBAN) 2 % ointment Apply 1 application to affected area twice daily. Disp: Rfl: famotidine (PEPCID) 20 mg tablet Take 20 mg by mouth twice daily. Disp: Rfl: ondansetron (ZOFRAN) 4 mg tablet Take 4 mg by mouth every 6 hours as needed. Disp: Rfl: oxyCODONE-acetaminophen (PERCOCET) 5-325 mg tablet Take 1 tablet by mouth every 4 hours as needed. Disp: Rfl: Cholecalciferol, Vitamin D3, (VITAMIN D-3) 1,000 unit chew Take 1 tablet by mouth once daily. Disp: 30 tablet Rfl: 3 Chlorhexidine Gluconate (PERIDEX) 0.12 % solution Take 15 mL by mouth once daily. Swish for 30 seconds and then spit out. Disp: 30 mL Rfl: 1 tiotropium-olodaterol (STIOLTO RESPIMAT) 2.5-2.5 mcg/actuation mist Inhale 2 Puffs as instructed once daily. Disp: Rfl: fluticasone (FLOVENT) 110 mcg/actuation inhaler Inhale 1 Puff as instructed twice daily. Disp: 1 Inhaler Rfl: 1 allopurinol (ZYLOPRIM) 300 mg tablet Take 1 tablet by mouth once daily. This can be crushed. Disp: 30 tablet Rfl: 1 albuterol HFA (VENTOLIN HFA) 90 mcg/actuation inhaler Inhale 2 Puffs as instructed every 6 hours as needed for Wheezing/Shortness of Breath. Disp: 1 Inhaler Rfl: 6 diltiazem CD (CARDIZEM CD) 120 mg 24 hr capsule Take 120 mg by mouth twice daily. Disp: Rfl: Vit A-Vit L-Blsm-Vtkvojrt (ZINC, WITH A AND C, LOZENGES) lozg Take 1 tablet by mouth once daily. Let dissolve in mouth. (Patient not taking: Reported on 10/09/2017 ) Disp: 30 Lozenge Rfl: 1 hydroxyurea (HYDREA) 500 mg capsule Take 1 capsule by mouth once daily. (Patient not taking: Reported on 10/03/2017 ) Disp: 30 capsule Rfl: 1 No current facility-administered medications for this visit. ALLERGIES No Known Allergies Social History Marital status: Spouse name: Years of education: Number of children: Social History Main Topics Smoking status: Former Smoker Packs/day: 2.00 Years: 52.00 Types: Cigarettes Quit date: 09/01/2013 Smokeless tobacco: Never Used Alcohol use: Yes 6.0 oz/week Cans of Beer (12oz): 4 per week Drug use: No Sexual activity: No FAMILY HISTORY (grandparents, parents, brothers, sisters, aunts, or uncles) Liver Problems: No Ulcerative Colitis: No Crohn's Disease: No Colon Cancer: No Colon Polyps: No IBS: No Celiac disease: No Bleeding Disorders: No GI SPECIFIC REVIEW OF SYMPTOMS Difficulty swallowing / foods sticking in throat: yes Heartburn: no Hoarseness: no Chronic cough: no Regurgitation: no Chest pain: no Filling up quickly at meals:no Loss of appetite: no Nausea: no Vomiting: no Abdominal pain: no Recent change in bowel movements: no Bloody or black, bowel movements: no Constipation: no Diarrhea: no Loss of control of bowel movements: no Night sweats: no Fever: no Chills: no Thought or memory problems: no Fluid in abdomen (ascites): no Prominent leg swelling: no Vomiting blood: no Recent change in weight: No REVIEW OF SYSTEMS General: No fevers, sweats, chills, nightsweats, change in appetite. HEENT: No changes in hearing or vision, no nose bleeds, discharge or congestion Cardiovascular: No limb swelling, palpitations, PND, or orthopnea. GI: See HPI : No urinary burning urination or change in urine color. PAST MEDICAL HISTORY Colon polyps: yes Colon cancer: no Other cancer: yes vocal cord cancer Radiation / Chemotherapy: yes Radiation Crohn's disease / Ulcerative colitis: no High cholesterol or triglycerides: no Ulcers: no Gallstones: no Hepatitis / Jaundice: no Heart Disease: no Lung Disease: yes Liver problems: no Thyroid disease: no Kidney stones: no Pancreatitis: yes Diabetes: no Arthritis: no Rheumatic fever: no Gastrointestinal bleeding: no Depression or other mental illness: no Other personal illness: none PHYSICAL EXAMINATION BP 112/66 Pulse 86 Ht 5' 11 (1.80m) Wt 116 lb 6 oz (52.8kg) SpO2 95% BMI 16.24 kg/(m2). Gen: Well appearing, seated upright in no discomfort CVS: S1S2+, NSR RS: Non labored respiration, b/l air entry equal, no added BS Abdo: soft, non distended, non tender,no palpable hepatosplenomegaly, BS normoactive RECENT LABS CBC: WBC (k/uL) Date Value 09/22/2017 22.80 (H) 09/21/2017 27.88 (H) Hematocrit (%) Date Value 09/22/2017 41.2 MCV (fL) Date Value 09/22/2017 61.7 (L) Platelet Count (k/uL) Date Value 09/22/2017 964 (H) Lymph% (%) Date Value 09/22/2017 4.3 Comprehensive Metabolic Panel: Glucose (mg/dL) Date Value 09/22/2017 80 BUN (mg/dL) Date Value 09/22/2017 7 (L) Creatinine (mg/dL) Date Value 09/22/2017 1.04 Sodium (mmol/L) Date Value 09/22/2017 140 Potassium (mmol/L) Date Value 09/22/2017 3.4 (L) Chloride (mmol/L) Date Value 09/22/2017 103 CO2 (mmol/L) Date Value 09/22/2017 24 Protein, Total (g/dL) Date Value 09/22/2017 4.7 (L) Albumin (g/dL) Date Value 09/22/2017 2.7 (L) Calcium (mg/dL) Date Value 09/22/2017 7.9 (L) Alkaline Phosphatase (U/L) Date Value 09/22/2017 66 Bilirubin, Total (mg/dL) Date Value 09/22/2017 0.4 AST (U/L) Date Value 09/22/2017 14 ALT (U/L) Date Value 09/22/2017 10 IMPRESSION 1. Pharyngeal dysphageal, only to big pills such as iron pills 2. hx of esophageal stricture s/p EGD 09/21 3. hx of largynx carcinoma s/p surgical resection Plans: 1. EGD with dilation and biopsies under anes 2. Discussed with diet and life measures. 3. Discussed with the patient about the endoscopic and related pathology results. 4 Continue current medications 5. Follow up with hematology this . 6. Follow up with us after review the results Ania Bautista MD October 09, 2017 2:29 PM I saw and evaluated the patient. I reviewed the History, Exam, and Plan as documented by the resident/fellow. The following reflects my findings: Dysphagia to solids noted about 14 years ago at which time an upper esophageal stricture was noted and dilation was effecitve for many years. He avoids meat but pills get impacted. Reviewed esophagram. Stricture looks benign. Recent biopsies no cancer. I would repeat EGD and perform dilation for relief and repeat biopsies if indicated. Philip Kelly MD,MACP,[facility]G [facility]OS[facility] Observed: 10/09/2017 Status: COMPLETED Source: [facility] 12:00 AM [facility] REPOSITORY Patient:Sabina Flores MRN: <[id number]> Height:5' 11(1.803 m) Weight:No patient weight recorded within the last 30 days. Outpatient Medications as of 11/27/17: albuterol HFA (VENTOLIN HFA) 90 mcg/actuation inhaler anagrelide (AGRYLIN) 0.5 mg capsule ondansetron (ZOFRAN) 4 mg tablet mupirocin (BACTROBAN) 2 % ointment diltiazem CD (CARDIZEM CD) 120 mg 24 hr capsule famotidine (PEPCID) 20 mg tablet oxyCODONE-acetaminophen (PERCOCET) 5-325 mg tablet Cholecalciferol, Vitamin D3, (VITAMIN D-3) 1,000 unit chew Vit A-Vit N-Mbyf-Qvzrdsti (ZINC, WITH A AND C, LOZENGES) lozg Chlorhexidine Gluconate (PERIDEX) 0.12 % solution tiotropium-olodaterol (STIOLTO RESPIMAT) 2.5-2.5 mcg/actuation mist fluticasone (FLOVENT) 110 mcg/actuation inhaler allopurinol (ZYLOPRIM) 300 mg tablet hydroxyurea (HYDREA) 500 mg capsule Admission/Clinic Administered Medications as of 11/27/17: Patient has no admission medications. 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] Back pain, chronic [M54.9, G89.29] History of laryngeal cancer [Z85.21] Hypoxemia [R09.02] Severe protein-calorie malnutrition (HCC) [E43] Thrombocytosis (HCC) [D47.3] Elevated protime [R79.1] Elevated bilirubin [R17] Body mass index (BMI) less than or equal to 19 in adult [Z68.1] Malignant neoplasm of larynx (HCC) [C32.9] Dysphagia [R13.10] History of peptic ulcer [Z87.11] Nicotine dependence [F17.200] 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] Former tobacco use [Z87.891] S/P partial gastrectomy [Z90.3] Leukocytosis [D72.829] Vitamin D deficiency [E55.9] Hypoalbuminemia [E88.09] Subclinical hypothyroidism [E03.9] Low serum alkaline phosphatase [R74.8] Elevated blood pressure reading [R03.0] 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 MAHESH: No RX INSTRUCTIONS: Patient aware RX will be sent to pharmacy. No need to notify patient. Kim Major RN 11/20/2017 1:20 PM Signed Patient has been identified by name and date of : Yes Patient phones for refill(s): Pending Prescriptions Disp Refills ALBUTEROL SULFATE HFA 90 MCG/ACTUATION AEROSOL INHALER 1 Inhaler 6 Sig: Inhale 2 Puffs as instructed every 6 hours as needed for Wheezing/Shortness of Breath. MAHESH: No Date of last office visit in primary care: 10/03/17, future appt. 12/03/17 Last 2 Encounter Wt Readings: Date: Wt: 10/23/2017 52.2 kg (115 lb) 10/11/2017 52.4 kg (115 lb 8 oz) Previous labs/tests for medication: Blood Pressure: BUN (mg/dL) Date Value 09/22/2017 7 Sodium (mmol/L) Date Value 09/22/2017 140 Last 1 Encounter BP Readings: Date: BP: 10/23/2017 131/60 Please advise. Thank you. Nandini Major RN CNOV Observed: 10/03/2017 Status: COMPLETED Source: [place] 11:40 AM [facility] REPOSITORY Office Visit (INTMWS) SABINA FLORES ([id number]) 1940 M Date Time Provider Department 10/03/17 11:40 AM VARUN WANG INTMWS During your visit today, we recorded the following information about you: Temperature Pulse Respiration Blood pressure 96 degrees 84/minute 20/minute 103/69 Weight 52.2 kg Varun Wang MD 10/03/2017 2:15 PM Signed ? 10/01/17 2:41 PM Yamile Shirley LPN contacted Sabina Shirley LPN ? 10/01/17 2:41 PM Note TRANSITION CARE MANAGEMENT (TCM) INITIAL CONTACT Commercial Loan Collection Officer Outreach ? Provider Action/FYI: ? ? ? Initial contact with patient post discharge, spoke to patient. Patient identified by name and . ? SUMMARY: -Pt discharged from [facility] on 09/27/17. -Admitted for: acute pancreatitis ? Do you have a hospital follow up appointment with your PCP? Appointment on 10/03/17 with 1140am. Yes. Remind patient of appointment date, time, and location. If not within 14 calendar days of discharge - please reschedule accordingly. ? MEDICATIONS: Many patients have questions or concerns about their medications once they are home. Were you prescribed any new medications? Yes meds updated Were you told to hold any medications? No Were any of your medications discontinued? No ? Do you have any questions about getting or taking your medications? No ? Your discharge instructions/After visit Summary (AVS) are important in guiding you through the recovery process. Is there anything I might help you understand? No ? Do you have all the necessary equipment and supplies at home? Yes ? Medical records from recent hospitalization: Requested from outside hospital Pt says doing pretty will still have so shortest of breath. He does have home O2. This encounter is not signed. The conversation may still be ongoing. Additional Documentation Encounter Info: ? Billing Info, History, Allergies, Detailed Report Transitional Care Management Progress Note The patients TCM visit was performed within the 7 days of discharge. Patient's Date of discharge: 09/27/2017 Date of initial coordinator contact after discharge: 2 Discharge diagnosis: Pancreatitis Medication review completed Yes Annie Munoz LPN Provider Documentation: In follow-up of hospitalization, Sabina Flores is a 77 year old male with the chief complaint of Pancreatitis HPI: He was admitted 09/23-09/27 locally at [facility] for abdominal pain, sepsis due to urinary tract infection, thrombocytosis, leukocytosis, chronic obstructive pulmonary disease, elevated blood pressure. He was hydrated, and treated for infection. Repeat CT of his chest, abdomen and pelvis were nonspecific. He was discharged on medications listed, with the new medication being diltiazem for elevated blood pressure. He was slowly improving. His appetite was improving. Discharge summary was not available, only discharge instructions. He was just discharged from [facility] for esophageal stricture, biopsied, and negative for malignancy. He was started on treatment for myeloproliferative disorder but work up was not complete. He declined artificial nutrition for malnutrition. REVIEW OF SYSTEMS GENERAL: Weight loss, Fatigue, no fever. HEENT: Negative for frequent or significant headaches, sore throat, mouth lesions NECK: Negative for lumps, pain and significant neck swelling RESPIRATORY: Shortness of breath at baseline. No cough, no wheezing. CARDIOVASCULAR: Negative for chest pain, leg swelling, CHF or palpitations GI: Negative for blood in stools or black stools, nausea, vomiting and Positive for abdominal discomfort intermittent, problem swallowing pills, solids. : No history of dysuria, frequency or incontinence MUSCULOSKELETAL: Negative for joint pain or swelling, back pain or muscle pain SKIN: Negative for rash and ulcers. PSYCH: Negative for sleep disturbance, mood disorder and recent psychosocial stressors NEURO: No history of headaches, syncope, paralysis, seizures or tremors. ACTIVE PROBLEM LIST Iron Deficiency Anemia Esophageal Stricture Diverticulosis of Large Intestine Without Hemorrhage Interstitial Lung Disease (Hcc) Asthma Copd (Chronic Obstructive Pulmonary Disease) (Hcc) Adenomatous Colon Polyp Carcinoma in Situ of Larynx Back Pain, Chronic History of Laryngeal Cancer Hypoxemia Severe Protein-Calorie Malnutrition (Hcc) Thrombocytosis (Hcc) Elevated Protime Elevated Bilirubin Body Mass Index (Bmi) Less Than Or Equal to 19 in Adult Malignant Neoplasm of Larynx (Hcc) Dysphagia History of Peptic Ulcer Nicotine Dependence Squamous Cell Carcinoma of Larynx (Hcc) Former Tobacco Use S/P Partial Gastrectomy Leukocytosis Tachycardia Vitamin D Deficiency Hypoalbuminemia Subclinical Hypothyroidism Low Serum Alkaline Phosphatase PAST SURGICAL HISTORY Procedure Laterality Date - COLONOSCOP W/ OR W/O BRS SPEC 2003 Colonoscopy - COLONOSCOP W/ OR W/O BRSH SPEC 02/20/2013 Colonoscopy - COLONOSCOP W/ OR W/O BRSH SPEC 03/30/16 Colonoscopy - EGD W/O OR W/BRUSH/WASH 2003 EGD - EGD W/O OR W/BRUSH/WASH 02/20/13 EGD - ESOPH W/O [facility] SPEC [place] DIL 03-30-2004 Esophageal dilatation - LARYNGOSCOPY W/ BIOPSY 02/06/2014 - PARTIAL GASTRECTOMY 1970 - PAST SURGICAL HISTORY OF Left 08/29/2016 Floor of mouth resection, sialadochoplasty Current Outpatient Prescriptions: mupirocin (BACTROBAN) 2 % ointment Apply 1 application to affected area twice daily. diltiazem CD (CARDIZEM CD) 120 mg 24 hr capsule Take 120 mg by mouth twice daily. famotidine (PEPCID) 20 mg tablet Take 20 mg by mouth twice daily. ondansetron (ZOFRAN) 4 mg tablet Take 4 mg by mouth every 6 hours as needed. oxyCODONE-acetaminophen (PERCOCET) 5-325 mg tablet Take 1 tablet by mouth every 4 hours as needed. Cholecalciferol, Vitamin D3, (VITAMIN D-3) 1,000 unit chew Take 1 tablet by mouth once daily. Vit A-Vit W-Ormm-Mxlhyktd (ZINC, WITH A AND C, LOZENGES) lozg Take 1 tablet by mouth once daily. Let dissolve in mouth. Chlorhexidine Gluconate (PERIDEX) 0.12 % solution Take 15 mL by mouth once daily. Swish for 30 seconds and then spit out. tiotropium-olodaterol (STIOLTO RESPIMAT) 2.5-2.5 mcg/actuation mist Inhale 2 Puffs as instructed once daily. fluticasone (FLOVENT) 110 mcg/actuation inhaler Inhale 1 Puff as instructed twice daily. allopurinol (ZYLOPRIM) 300 mg tablet Take 1 tablet by mouth once daily. This can be crushed. albuterol HFA (VENTOLIN HFA) 90 mcg/actuation inhaler Inhale 2 Puffs as instructed every 6 hours as needed for Wheezing/Shortness of Breath. hydroxyurea (HYDREA) 500 mg capsule Take 1 capsule by mouth once daily. (Patient not taking: Reported on 10/03/2017 ) No current facility-administered medications for this visit. Social History Marital status: Spouse name: Years of education: Number of children: Social History Main Topics Smoking status: Former Smoker Packs/day: 2.00 Years: 52.00 Types: Cigarettes Quit date: 09/01/2013 Smokeless tobacco: Never Used Alcohol use: Yes 6.0 oz/week Cans of Beer (12oz): 4 per week Drug use: No Sexual activity: No BP 103/69 (BP Site: Left Arm, BP Position: Sitting, BP Cuff Size: Small Adult) Pulse 84 Temp (!) 35.6 ?C (96 ?F) (Left Tympanic) Resp 20 Wt 52.2 kg (115 lb) BMI 16.04 kg/m? PHYSICAL EXAM: General Appearance: Cachectic, ambulatory, carrying portable O2, no apparent distress. Eyes: Anicteric sclera. Pupils are equally round and reactive to light. Extraocular movements are intact. . Oropharynx: Dry. Neck: Negative findings: no asymmetry, masses, or scars, no adenopathy. Lungs: Diminished, scattered rhonchi, no rales or wheezes, no dullness to percussion. Heart: RRR without murmur, gallop, or rubs. No ectopy. Abdomen: Abdomen soft, non-tender. Bowel sounds normal. No masses, organomegaly. Extremities: Negative findings: No cyanosis, clubbing or edema. Neurologic: Gait slow but stable. General debility. ASSESSMENT/PLAN: 1. Acute pancreatitis, unspecified complication status, unspecified pancreatitis type - ICD9: 577.0, ICD10: K85.90 (primary diagnosis) Improved. 2. Pulmonary emphysema, unspecified emphysema type (HCC) - ICD9: 492.8, ICD10: J43.9 Stable. 3. Esophageal stricture - ICD9: 530.3, ICD10: K22.2 To see GI. - ONDANSETRON HCL 4 MG TABLET - OXYCODONE-ACETAMINOPHEN 5 MG-325 MG TABLET 4. History of peptic ulcer - ICD9: V12.71, ICD10: Z87.11 - FAMOTIDINE 20 MG TABLET 5. Iron deficiency anemia, unspecified iron deficiency anemia type - ICD9: 280.9, ICD10: D50.9 On iron. 6. Leukocytosis, unspecified type - ICD9: 288.60, ICD10: D72.829 To see hematology. 7. Thrombocytosis (HCC) - ICD9: 238.71, ICD10: D47.3 To see hematology. 8. Severe protein-calorie malnutrition (HCC) - ICD9: 262, ICD10: E43 Nutrition stressed. 9. Oropharyngeal dysphagia - ICD9: 787.22, ICD10: R13.12 To see GI. 10. Elevated blood pressure reading - ICD9: 796.2, ICD10: R03.0 - DILTIAZEM SR 120 MG 24 HR CAP. One capsule contents twice daily. I have reviewed the patient?s last hospital course including diagnostic testing performed during this hospitalization, their discharge medications, and my assessment and plan with the patient and any family members present at today?s visit. Varun Wang MD Referring Provider: ANALI FOUNTAIN [[id number]] Allergies As of Date: 10/03/2017 (No Known Allergies) Date Reviewed: 10/03/2017 Reviewed by: Annie Munoz LPN - Fully Assessed Reason for Visit: [facility] Hospital discharge [Other] Cmt: [facility] Discharged 09/27/2017; Dx PNA; Pancreatitis Primary Visit Diagnosis:Acute pancreatitis, unspecified complication status, unspecified pancreatitis type [K85.90] Other Visit Diagnoses:Pulmonary emphysema, unspecified emphysema type (HCC) [J43.9] Esophageal stricture [K22.2] History of peptic ulcer [Z87.11] Iron deficiency anemia, unspecified iron deficiency anemia type [D50.9] Leukocytosis, unspecified type [D72.829] Thrombocytosis (HCC) [D47.3] Severe protein-calorie malnutrition (HCC) [E43] Oropharyngeal dysphagia [R13.12] Elevated blood pressure reading [R03.0] Prescriptions as of 10/03/2017 Sig: MUPIROCIN 2 % TOPICAL OINTMENT Apply 1 application to affect* DILTIAZEM SR 120 MG 24 HR CAP Take 120 mg by mouth twice da* FAMOTIDINE 20 MG TABLET Take 20 mg by mouth twice kerline* ONDANSETRON HCL 4 MG TABLET Take 4 mg by mouth every 6 ho* OXYCODONE-ACETAMINOPHEN 5 MG-* Take 1 tablet by mouth every * CHOLECALCIFEROL (VITAMIN D3) * Take 1 tablet by mouth once d* VIT A-VIT W-ZCKL-VOMEYSQZ MAT* Take 1 tablet by mouth once d* CHLORHEXIDINE GLUCONATE 0.12 * Take 15 mL by mouth once cristiana* TIOTROPIUM 2.5 MCG-OLODATEROL* Inhale 2 Puffs as instructed * FLUTICASONE 110 MCG/ACTUATION* Inhale 1 Puff as instructed t* ALLOPURINOL 300 MG TABLET Take 1 tablet by mouth once d* ALBUTEROL SULFATE HFA 90 MCG/* Inhale 2 Puffs as instructed * HYDROXYUREA 500 MG CAPSULE Take 1 capsule by mouth once * Patient not taking: Reported on 10/03/2017 Problem List As Of Date 10/03/2017 Noted Resolved Iron deficiency anemia [D50.9] INVALID FOR* Priority: Severe Peptic ulcer, unspecified site, unspecified as *INVALID FOR*10/30/2011 Esophageal stricture [K22.2] INVALID FOR* Priority: Moderate Diverticulosis of large intestine without hemor*INVALID FOR* Nonspecific abnormal results of liver function *INVALID FOR*03/31/2011 More... Personal history of alcoholism [F10.21] INVALID FOR*02/12/2014 Tobacco use disorder [F17.200] INVALID FOR*02/21/2016 Interstitial lung disease (HCC) [J84.9] INVALID FOR* Lung nodule [R91.1] INVALID FOR*04/14/2013 More... Asthma [J45.909] INVALID FOR* COPD (chronic obstructive pulmonary disease) (H*INVALID FOR* Priority: I Adenomatous colon polyp [D12.6] INVALID FOR* Polycythemia [D75.1] INVALID FOR*08/21/2016 Carcinoma in situ of larynx [D02.0] INVALID FOR* Back pain, chronic [M54.9, G89.29] INVALID FOR* History of laryngeal cancer [Z85.21] INVALID FOR* Colon cancer screening [Z12.11] INVALID FOR*03/30/2016 Oral lesion [K13.70] INVALID FOR*11/20/2016 Hypoxemia [R09.02] INVALID FOR* Severe protein-calorie malnutrition (HCC) [E43] INVALID FOR* More... Thrombocytosis (HCC) [D47.3] INVALID FOR* Priority: Severe Elevated protime [R79.1] INVALID FOR* Elevated bilirubin [R17] INVALID FOR* Shortness of breath [R06.02] INVALID FOR*09/22/2017 Priority: A More... Body mass index (BMI) less than or equal to 19 *INVALID FOR* Malignant neoplasm of larynx (HCC) [C32.9] INVALID FOR* More... 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 Vitamin D deficiency [E55.9] INVALID FOR* More... Hypoalbuminemia [E88.09] INVALID FOR* Prolonged INR [R79.1] INVALID FOR*09/22/2017 More... Subclinical hypothyroidism [E03.9] INVALID FOR* Low serum alkaline phosphatase [R74.8] INVALID FOR* Elevated blood pressure reading [R03.0] INVALID FOR* Disposition: Return in about 2 months (around 12/03/2017). Follow-up and Disposition History Recorded Encounter Status:Closed by VARUN WANG MD on 10/03/17 PROGRESS Observed: 10/03/2017 Status: COMPLETED Source: [place] 11:36 AM [facility] [place] REPOSITORY HNO ID: [id number] Author: Varun Wang Service: (none) Author Type: Physician Type: Progress Notes Filed: 10/03/2017 2:15 PM Note Text: ? 10/01/17 2:41 PM Yamile Shirley LPN contacted Sabina Flores Yamile Shirley LPN ? 10/01/17 2:41 PM Note TRANSITION CARE MANAGEMENT (TCM) INITIAL CONTACT Commercial Loan Collection Officer Outreach ? Provider Action/FYI: ? ? ? Initial contact with patient post discharge, spoke to patient. Patient identified by name and . ? SUMMARY: -Pt discharged from [facility] on 09/27/17. -Admitted for: acute pancreatitis ? Do you have a hospital follow up appointment with your PCP? Appointment on 10/03/17 with 1140am. Yes. Remind patient of appointment date, time, and location. If not within 14 calendar days of discharge - please reschedule accordingly. ? MEDICATIONS: Many patients have questions or concerns about their medications once they are home. Were you prescribed any new medications? Yes meds updated Were you told to hold any medications? No Were any of your medications discontinued? No ? Do you have any questions about getting or taking your medications? No ? Your discharge instructions/After visit Summary (AVS) are important in guiding you through the recovery process. Is there anything I might help you understand? No ? Do you have all the necessary equipment and supplies at home? Yes ? Medical records from recent hospitalization: Requested from outside hospital Pt says doing pretty will still have so shortest of breath. He does have home O2. This encounter is not signed. The conversation may still be ongoing. Additional Documentation Encounter Info: ? Billing Info, History, Allergies, Detailed Report Transitional Care Management Progress Note The patients TCM visit was performed within the 7 days of discharge. Patient's Date of discharge: 09/27/2017 Date of initial coordinator contact after discharge: 2 Discharge diagnosis: Pancreatitis Medication review completed Yes Annie Munoz LPN Provider Documentation: In follow-up of hospitalization, Sabina Flores is a 77 year old male with the chief complaint of Pancreatitis HPI: He was admitted 09/23-09/27 locally at [facility] for abdominal pain, sepsis due to urinary tract infection, thrombocytosis, leukocytosis, chronic obstructive pulmonary disease, elevated blood pressure. He was hydrated, and treated for infection. Repeat CT of his chest, abdomen and pelvis were nonspecific. He was discharged on medications listed, with the new medication being diltiazem for elevated blood pressure. He was slowly improving. His appetite was improving. Discharge summary was not available, only discharge instructions. He was just discharged from [facility] for esophageal stricture, biopsied, and negative for malignancy. He was started on treatment for myeloproliferative disorder but work up was not complete. He declined artificial nutrition for malnutrition. REVIEW OF SYSTEMS GENERAL: Weight loss, Fatigue, no fever. HEENT: Negative for frequent or significant headaches, sore throat, mouth lesions NECK: Negative for lumps, pain and significant neck swelling RESPIRATORY: Shortness of breath at baseline. No cough, no wheezing. CARDIOVASCULAR: Negative for chest pain, leg swelling, CHF or palpitations GI: Negative for blood in stools or black stools, nausea, vomiting and Positive for abdominal discomfort intermittent, problem swallowing pills, solids. : No history of dysuria, frequency or incontinence MUSCULOSKELETAL: Negative for joint pain or swelling, back pain or muscle pain SKIN: Negative for rash and ulcers. PSYCH: Negative for sleep disturbance, mood disorder and recent psychosocial stressors NEURO: No history of headaches, syncope, paralysis, seizures or tremors. ACTIVE PROBLEM LIST Iron Deficiency Anemia Esophageal Stricture Diverticulosis of Large Intestine Without Hemorrhage Interstitial Lung Disease (Hcc) Asthma Copd (Chronic Obstructive Pulmonary Disease) (Hcc) Adenomatous Colon Polyp Carcinoma in Situ of Larynx Back Pain, Chronic History of Laryngeal Cancer Hypoxemia Severe Protein-Calorie Malnutrition (Hcc) Thrombocytosis (Hcc) Elevated Protime Elevated Bilirubin Body Mass Index (Bmi) Less Than Or Equal to 19 in Adult Malignant Neoplasm of Larynx (Hcc) Dysphagia History of Peptic Ulcer Nicotine Dependence Squamous Cell Carcinoma of Larynx (Hcc) Former Tobacco Use S/P Partial Gastrectomy Leukocytosis Tachycardia Vitamin D Deficiency Hypoalbuminemia Subclinical Hypothyroidism Low Serum Alkaline Phosphatase PAST SURGICAL HISTORY Procedure Laterality Date - COLONOSCOP W/ OR W/O BRSH SPEC 2003 Colonoscopy - COLONOSCOP W/ OR W/O BRSH SPEC 02/20/2013 Colonoscopy - COLONOSCOP W/ OR W/O BRSH SPEC 03/30/16 Colonoscopy - EGD W/O OR W/BRUSH/WASH 2003 EGD - EGD W/O OR W/BRUSH/WASH 02/20/13 EGD - ESOPH W/O BRSH SPEC [place]ALL[place] DIL 12--2003 Esophageal dilatation - LARYNGOSCOPY W/ BIOPSY 02/06/2014 - PARTIAL GASTRECTOMY 1970 - PAST SURGICAL HISTORY OF Left 08/29/2016 Floor of mouth resection, sialadochoplasty Current Outpatient Prescriptions: mupirocin (BACTROBAN) 2 % ointment Apply 1 application to affected area twice daily. diltiazem CD (CARDIZEM CD) 120 mg 24 hr capsule Take 120 mg by mouth twice daily. famotidine (PEPCID) 20 mg tablet Take 20 mg by mouth twice daily. ondansetron (ZOFRAN) 4 mg tablet Take 4 mg by mouth every 6 hours as needed. oxyCODONE-acetaminophen (PERCOCET) 5-325 mg tablet Take 1 tablet by mouth every 4 hours as needed. Cholecalciferol, Vitamin D3, (VITAMIN D-3) 1,000 unit chew Take 1 tablet by mouth once daily. Vit A-Vit U-Ghzl-Pusmudij (ZINC, WITH A AND C, LOZENGES) lozg Take 1 tablet by mouth once daily. Let dissolve in mouth. Chlorhexidine Gluconate (PERIDEX) 0.12 % solution Take 15 mL by mouth once daily. Swish for 30 seconds and then spit out. tiotropium-olodaterol (STIOLTO RESPIMAT) 2.5-2.5 mcg/actuation mist Inhale 2 Puffs as instructed once daily. fluticasone (FLOVENT) 110 mcg/actuation inhaler Inhale 1 Puff as instructed twice daily. allopurinol (ZYLOPRIM) 300 mg tablet Take 1 tablet by mouth once daily. This can be crushed. albuterol HFA (VENTOLIN HFA) 90 mcg/actuation inhaler Inhale 2 Puffs as instructed every 6 hours as needed for Wheezing/Shortness of Breath. hydroxyurea (HYDREA) 500 mg capsule Take 1 capsule by mouth once daily. (Patient not taking: Reported on 10/03/2017 ) No current facility-administered medications for this visit. Social History Marital status: Spouse name: Years of education: Number of children: Social History Main Topics Smoking status: Former Smoker Packs/day: 2.00 Years: 52.00 Types: Cigarettes Quit date: 09/01/2013 Smokeless tobacco: Never Used Alcohol use: Yes 6.0 oz/week Cans of Beer (12oz): 4 per week Drug use: No Sexual activity: No BP 103/69 (BP Site: Left Arm, BP Position: Sitting, BP Cuff Size: Small Adult) Pulse 84 Temp (!) 35.6 ?C (96 ?F) (Left Tympanic) Resp 20 Wt 52.2 kg (115 lb) BMI 16.04 kg/m? PHYSICAL EXAM: General Appearance: Cachectic, ambulatory, carrying portable O2, no apparent distress. Eyes: Anicteric sclera. Pupils are equally round and reactive to light. Extraocular movements are intact. . Oropharynx: Dry. Neck: Negative findings: no asymmetry, masses, or scars, no adenopathy. Lungs: Diminished, scattered rhonchi, no rales or wheezes, no dullness to percussion. Heart: RRR without murmur, gallop, or rubs. No ectopy. Abdomen: Abdomen soft, non-tender. Bowel sounds normal. No masses, organomegaly. Extremities: Negative findings: No cyanosis, clubbing or edema. Neurologic: Gait slow but stable. General debility. ASSESSMENT/PLAN: 1. Acute pancreatitis, unspecified complication status, unspecified pancreatitis type - ICD9: 577.0, ICD10: K85.90 (primary diagnosis) Improved. 2. Pulmonary emphysema, unspecified emphysema type (HCC) - ICD9: 492.8, ICD10: J43.9 Stable. 3. Esophageal stricture - ICD9: 530.3, ICD10: K22.2 To see GI. - ONDANSETRON HCL 4 MG TABLET - OXYCODONE-ACETAMINOPHEN 5 MG-325 MG TABLET 4. History of peptic ulcer - ICD9: V12.71, ICD10: Z87.11 - FAMOTIDINE 20 MG TABLET 5. Iron deficiency anemia, unspecified iron deficiency anemia type - ICD9: 280.9, ICD10: D50.9 On iron. 6. Leukocytosis, unspecified type - ICD9: 288.60, ICD10: D72.829 To see hematology. 7. Thrombocytosis (HCC) - ICD9: 238.71, ICD10: D47.3 To see hematology. 8. Severe protein-calorie malnutrition (HCC) - ICD9: 262, ICD10: E43 Nutrition stressed. 9. Oropharyngeal dysphagia - ICD9: 787.22, ICD10: R13.12 To see GI. 10. Elevated blood pressure reading - ICD9: 796.2, ICD10: R03.0 - DILTIAZEM SR 120 MG 24 HR CAP. One capsule contents twice daily. I have reviewed the patient?s last hospital course including diagnostic testing performed during this hospitalization, their discharge medications, and my assessment and plan with the patient and any family members present at today?s visit. Varun Wang MD DISCHARGE INSTRUCTION Observed: 09/27/2017 Status: F Source: [place] 8:37 AM [facility] [place] [facility] Medical Records Department [address] [place] [address] Instructions for Home/Discharge Instructions 09/27/17 0808 MR#: [id number] Acct: [id number] Name: SABINA FLORES Rep #: [id number] : 1940 77 From: Mikal Fountain DO PCP: Varun Wang MD Status: ADM IN - Discharge Diagnoses Current Active Problems: Current Active and Chronic Problems (Last Reviewed 05/03/17 @ 09:16 by Carmen Graham) Acute pancreatitis (Acute) You will use the following diet at home:: Regular Your food should be the consistency of: Puree Your liquids should be the consistency of: Regular/Thin Discharge Activity: Return to Normal Activity, May not drive while taking narcotic pain medications. Weight Bearing Status: Full weight bearing Call your doctor if you observe: Fever of 101 or Higher, Inability to have a bowel movement, Shortness of breath, Dizziness, Fainting spells, Swelling in the ankles, Chest pain, Uncontrolled pain, - - black tarry bowel movements, vomiting blood Additional Instructions: 1. I had one of the other physicias who is associated with the [facility] look up your biopsy report and it said there is no malignancy. 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 Stick to pureed and very soft foods. Use [place] instant breakfast made with ice cream and whole milk 3 times a day to help get your nutritional status to improve. 2. You will need to follow up with Dr. Aguillon for the elevated platelets and white blood cells. 3. You will also need to follow up at [facility] main [place] for your esophagus. Sometimes people with your problem need to have a stent placed in the esophagus and sometimes it can be dilated. 4. You are iron deficient and mildly anemia. I am starting you on an iron supplement and this can make you constipated. If that happens you should start metamucil or Miralax to keep the stool soft. Pending Tests on Discharge: none Allergies/Adverse Reactions: Allergies No Known Allergies Allergy (Verified 09/23/17 14:38) Medications to take at Discharge Albuterol Inhaler [Ventolin Hfa] 2 puff INHALATION Q6H PRN PRN 01/02/14 tiotropium 2.5 mcg-olodaterol 2.5 mcg/actuation mist for inhalation 2 inh INHALATION QDAY #4 g 08/14/17 Allopurinol [Zyloprim] 300 mg PO DAILY 09/23/17 Ascorbic Acid,Sod/Zinc Ox,Gluc [Zinc and C Lozenge] 1 each PO DAILY 09/23/17 Chlorhexidine Gluconate [Peridex] 15 ml MM DAILY 09/23/17 Cholecalciferol (Vitamin D3) [Vitamin D3] 1,000 unit PO DAILY 09/23/17 Fluticasone 110 Mcg [Flovent 110 Mcg] 1 puff INHALATION BID 09/23/17 Hydroxyurea [Hydrea] 1 cap PO DAILY 09/23/17 Mupirocin [Bactroban] 0.5 g NARES BID 09/23/17 Diltiazem CD [Cardizem CD] 120 mg PO BID #60 cap 09/27/17 Famotidine [Pepcid] 20 mg PO BID #60 tab 09/27/17 Ondansetron [Zofran Odt] 4 mg PO Q6H PRN PRN #14 tab.rapdis 09/27/17 Oxycodone HCl/Acetaminophen [Percocet 5/325] 1 tab PO Q4H PRN PRN 7 Days #30 tab 09/27/17 The following prescriptions were given: Oxycodone HCl/Acetaminophen [Percocet 5/325] 1 tab PO Q4H PRN PRN 7 Days #30 tab PRN Reason: Pain Ondansetron [Zofran Odt] 4 mg PO Q6H PRN PRN #14 tab.rapdis PRN Reason: Nausea/Vomiting Diltiazem CD [Cardizem CD] 120 mg PO BID #60 cap Famotidine [Pepcid] 20 mg PO BID #60 tab Primary Care Physician: Varun Wang MD [Primary Care Provider] - Please follow up with your Primary Care Physician in: 1-2 weeks Please Follow Up With: Maura Aguillon DO When: call for an appt Please Follow Up With: [facility] gastroenterology When: make an appt for follow up on the esophgeal stenosis Proposed Discharge Date: 09/27/17 09/27/17 0837 <Electronically signed by Mikal Fountain DO> Date Mikal Fountain DO CC: Maura Aguillon DO; Varun Wang MD 12 LEAD ELECTROCARDIOGRAM Observed: 09/26/2017 Status: F Source: [place] 2:45 PM [facility] Cardi[facility] Services [address] [place] [address] 12 Lead EKG 09/23/17 1526 MR#: [id number] Acct: [id number] Name: ZONIASABINA Raúl Rep #: [id number] : 1940 77 From: Maura Johnson MD Attending Dr: Jennifer Fountain Status: ADM IN Ordering Dr: Israel Davis MD Date: 09/23/17 Location: [facility] Sex: M C Admitted: 09/24/17 Test Reason : ABD PAIN Blood Pressure : / mmHG Vent. Rate : 095 BPM Atrial Rate : 095 BPM P-R Int : 124 ms QRS Dur : 082 ms QT Int : 370 ms P-R-T Axes : 037 -22 079 degrees QTc Int : 464 ms Normal sinus rhythm Nonspecific T wave abnormality Abnormal ECG Confirmed by EDER MARQUEZ, MAURA ([id number]), medical transcription editor CINTHYA JOLLEY ([id number]) on 09/26/2017 2:45:02 PM Referred By: JESSE Confirmed By:MAURA JOHNSON MD 09/26/17 8592 Date Maura Johnson MD CC: Jennifer Fountain; Israel Davis MD; Varun Wang MD Signed HH, HEMOGLOBIN AND Collected: 09/26/2017 Status: F Source: [place] HEMATOCRIT 8:45 AM [facility] [place] TYPE CODE TESTS RESULT OUT OF RANGE REFERENCE UNITS LAB L100.1300 13.0-16.5 g/dl Low HGB 12.4 LAB L100.1400 40-54 % Normal HCT 40.2 Performed By: #### L100.0600 #### [facility] [address] [place], [place], [address] BASIC METABOLIC Collected: 09/26/2017 Status: F Source: [place] PROFILE (BMP) 8:45 AM [facility] [place] TYPE CODE TESTS RESULT OUT OF RANGE REFERENCE UNITS LAB L501.0100 74-106 mg/dL Normal GLU 98 Result Comment: Please note revised GLUCOSE reference range effective 2017. LAB L501.1000 7-18 mg/dL Low BUN 2 LAB L501.1100 0.70-1.30 mg/dL Normal CREAT,SERUM 0.77 Result Comment: The validity of the calculated GFR AND GFRAA in patients over 70 years has not been determined. Clinical correlation is essential. LAB L501.1110 >60 mL/min Normal EST GFR 105 Result Comment: Non- GFR Calc LAB L501.1115 >60 mL/min Normal EST GFR - AA 127 Result Comment: GFR Calc LAB L501.1255 ml/min Normal Estimated CRCL 48.04 LAB L501.1300 10-20 RATIO Low BUN/CRE 2.6 LAB L501.2200 8.5-10 mg/dL Low .1 CA 7.9 LAB L501.5300 136-14 mmol/L Low 5 NA 135 LAB L501.5600 3.5-5. mmol/L Normal 1 K 3.6 LAB L501.5900 98-107 mmol/L Normal CL 100 LAB L501.6100 21.0-3 mmol/L Normal 2.0 CO2 26.0 LAB L501.6200 5-15 Normal GAP 9 Performed By: #### L500.2500 #### [facility] [address] [place], [address] BNP,B-TYPE NATRIURETIC Collected: 09/26/2017 Status: F Source: [place] PEPTIDE 8:45 AM [facility] TYPE CODE TESTS RESULT OUT OF RANGE REFERENCE UNITS LAB L503.6620 0-100 pg/mL High B-TYPE 134.9 JOHANA PEP Performed By: #### L503.6620 #### [facility] [address] [place], [address] CHEST PA AND LATERAL Observed: 09/26/2017 Status: F Source: [place] 8:33 AM [facility] REPOSITORY [facility] Imaging Services [address] [place] [address] Chest PA and Lateral MR#: [id number] Acct: [id number] Name: SABINA FLORES Rep #: [id number] : 1940 77 From: Jr Desai MD PCP: Varun Wang MD Status: ADM IN Study: Chest PA and Lateral Date of Exam: 09/26/17 Exam# [id number] Ordering Dr: Mikal Fountain DO STUDY: X-RAY CHEST REASON FOR EXAM: Male, 77 years old. Shortness of breath and dyspnea. TECHNIQUE: Single AP portable view of the chest. COMPARISON: Comparison is made with prior examination dated September 15, 2017. FINDINGS: EKG electrodes are seen. Since prior study, there has been progressive infiltration in the left lower lobe with a small left pleural effusion. Mild residual increased markings in the right mid lung. Normal size heart. Normal mediastinum and malia. Normal visualized pulmonary arteries. There is atherosclerotic calcification of the aortic arch with tortuosity. There are degenerative changes of the visualized thoracic spine. Normal visualized ribs, clavicles, and shoulders. Gaseous distention of the small bowel loops seen in the upper abdomen. RAD/Chest PA and Lateral IMPRESSION: Progressive left lower lobe infiltration with small left pleural effusion. Electronically Signed: Jr Desai MD at 11:13 EDT Tel [phone], Service support , CC: Jennifer Fountain; Varun Wang MD Lining Scrubber: Signed BASIC METABOLIC Collected: 09/25/2017 Status: F Source: [place] PROFILE (BMP) 6:04 AM [facility] [place] TYPE CODE TESTS RESULT OUT OF RANGE REFERENCE UNITS LAB L501.0100 74-106 mg/dL High GLU 107 Result Comment: Fasting Glucose result from 100 to 125 mg/dL suggests IMPAIRED HOMEOSTASIS per A.D.A. criteria. Please note revised GLUCOSE reference range effective 2017. LAB L501.1000 7-18 mg/dL Low BUN 3 LAB L501.1100 0.70-1.30 mg/dL Low CREAT,SERUM 0.68 Result Comment: The validity of the calculated GFR AND GFRAA in patients over 70 years has not been determined. Clinical correlation is essential. LAB L501.1110 >60 mL/min Normal EST GFR 119 Result Comment: Non- GFR Calc LAB L501.1115 >60 mL/min Normal EST GFR - AA 144 Result Comment: GFR Calc LAB L501.1255 ml/min Normal Estimated CRCL 48.04 LAB L501.1300 10-20 RATIO Low BUN/CRE 4.4 LAB L501.2200 8.5-10 mg/dL Low .1 CA 8.0 LAB L501.5300 136-14 mmol/L Normal 5 NA 139 LAB L501.5600 3.5-5. mmol/L Normal 1 K 3.8 LAB L501.5900 98-107 mmol/L Normal CL 102 LAB L501.6100 21.0-3 mmol/L Normal 2.0 CO2 26.0 LAB L501.6200 5-15 Normal GAP 11 Performed By: #### L500.2500, L501.2300, L501.5200 #### [facility] [address] [place], [place], [address] PHOSPHORUS Collected: 09/25/2017 Status: F Source: [place] 6:04 AM [facility] TYPE CODE TESTS RESULT OUT OF RANGE REFERENCE UNITS LAB L501.2300 2.5-4.9 mg/dL Low PHOS 1.6 Performed By: #### L500.2500, L501.2300, L501.5200 #### [facility] [address] [place], [address] MAGNESIUM Collected: 09/25/2017 Status: F Source: [place] 6:04 AM [facility] TYPE CODE TESTS RESULT OUT OF RANGE REFERENCE UNITS LAB L501.5200 1.6-2.6 mg/dL Normal MG 1.9 Performed By: #### L500.2500, L501.2300, L501.5200 #### [facility] [address] [place], [address] CBC-COMPLETE BLOOD CNT Collected: 09/25/2017 Status: F Source: [place] NO DIFF 6:04 AM [facility] [place] TYPE CODE TESTS RESULT OUT OF RANGE REFERENCE UNITS LAB L100.1000 4.4-11.0 K/mm3 High WBC 23.0 LAB L100.1200 4.6-6.2 M/mm3 High RBC 6.38 LAB L100.1300 13.0-16.5 g/dl Low HGB 11.4 LAB L100.1400 40-54 % Low HCT 38.6 LAB L100.1500 80-94 fL Low MCV 60.5 LAB L100.1600 27.0-32.0 pg Low MCH 17.9 LAB L100.1700 32-36 g/gl Low MCHC 29.5 LAB L100.1810 11.6-14.6 % High RDW CV 23.2 LAB L100.1820 35.1-43.9 fl High RDW SD 46.9 LAB L100.1900 150-450 K/mm3 High PLT 556 LAB L100.2000 6.2-12.0 fl Normal MPV 9.1 Performed By: #### L100.0500, L100.4500 #### [facility] [address] [place] [place], [address] DIFFERENTIAL COMMENT Collected: 09/25/2017 Status: F Source: [place] 6:04 AM [facility] TYPE CODE TESTS RESULT OUT OF RANGE REFERENCE UNITS LAB L100.4500 Normal SMEAR COMMENT Result Comment: 4+ MICROCYTES 2+ HYPO 2+ OVALOCYTES 1+ SHISTOCYTES RARE POLY PLATELTS APPEAR MODERATELY INCREASED Performed By: #### L100.0500, L100.4500 #### [facility] [address] [place], [address] T4 FREE DIRECT Collected: 09/25/2017 Status: F Source: [place] 6:04 AM [facility] TYPE CODE TESTS RESULT OUT OF RANGE REFERENCE UNITS LAB L506.0400 0.76-1.46 ng/dL Normal T4 FREE 1.10 DIRECT Performed By: #### L506.0400 #### [facility] [address] [place], [address] CBC W/DIFF, AUTOMATED Collected: 09/24/2017 Status: C Source: [place] 6:34 AM [facility] Order Comment: CRITICAL VALUE VERIFIED. CALLED TO ANNMARIE 09/24/17 0750 Kateryna Greene. RESULTS READ BACK BY JESUS . TYPE CODE TESTS RESULT OUT OF RANGE REFERENCE UNITS LAB L100.1000 4.4-11.0 K/mm3 High alert WBC 32.5 LAB L100.1200 4.6-6.2 M/mm3 High RBC 6.55 LAB L100.1300 13.0-16.5 g/dl Low HGB 11.9 LAB L100.1400 40-54 % Low HCT 38.8 LAB L100.1500 80-94 fL Low MCV 59.2 LAB L100.1600 27.0-32.0 pg Low MCH 18.2 LAB L100.1700 32-36 g/gl Low MCHC 30.7 LAB L100.1810 11.6-14.6 % High RDW CV 25.2 LAB L100.1820 35.1-43.9 fl High RDW SD 48.1 LAB L100.1900 150-450 K/mm3 High alert PLT 1114 LAB L100.2000 6.2-12.0 fl Normal MPV 8.7 LAB L100.2100 47-70 % High NEUT% 86.5 LAB L100.2200 19-41 % Low LY% 2.6 LAB L100.2300 0-10 % Normal MONO% 7.4 LAB L100.2400 0-5 % Normal EO% 0.9 LAB L100.2500 0-1 % Normal BASO% 1.0 LAB L100.2550 0.0-0.9 % High IM GRAN % 1.600 Result Comment: IG% - Immature Granulocytes (promyelocytes, myelocytes and metamyelocytes) > 1% indicates that a LEFT SHIFT is Present. LAB L100.2620 2.0-7.7 X10 3/uL Absolute High Neut 28.3 LAB L100.2720 0.83-4.51 X10 3/ul Absolute Normal Lymph 0.84 LAB L100.5500 ADEQ PLT EST Normal MKD INC LAB L100.5650 PLT Normal MORPH LARGE LAB L100.7700 Normal MICROCYTES 3+ LAB L100.8200 Normal OVALOCYTE 1+ LAB L100.9900 PATH REV Normal Reviewed Result Comment: Neutrophilic leukocytosis with left shift. Thrombocytosis. Clinical correlation necessary. Chemo Choudhury M.D. 09/25/17 AMENDED REPORT 09/25/17 1414 PATH REV previously reported as: August martin Performed By: #### L100.0100 #### [facility] [address] [place], [address] COMPREHENSIVE METABOLIC Collected: 09/24/2017 Status: F Source: [facility] 6:34 AM [facility] TYPE CODE TESTS RESULT OUT OF RANGE REFERENCE UNITS LAB L501.0100 74-106 mg/dL Normal GLU 106 Result Comment: Fasting Glucose result from 100 to 125 mg/dL suggests IMPAIRED HOMEOSTASIS per A.D.A. criteria. Please note revised GLUCOSE reference range effective 2017. LAB L501.1000 7-18 mg/dL Low BUN 5 LAB L501.1100 0.70-1.30 mg/dL Low CREAT,SERUM 0.59 Result Comment: The validity of the calculated GFR AND GFRAA in patients over 70 years has not been determined. Clinical correlation is essential. LAB L501.1110 >60 mL/min Normal EST GFR 141 Result Comment: Non- GFR Calc LAB L501.1115 >60 mL/min Normal EST GFR - AA 170 Result Comment: GFR Calc LAB L501.1255 ml/min Normal Estimated CRCL 48.02 LAB L501.1300 10-20 RATIO Low BUN/CRE 8.4 LAB L501.1500 6.4-8. g/dL Low 2 T PROT 5.6 LAB L501.1800 3.2-5. g/dL Low 0 ALB 2.5 LAB L501.1950 2.2-4. g/dL Normal 2 GLOB 3.1 LAB L501.2000 0.9-2. RATIO Low 4 A/G 0.8 LAB L501.2200 8.5-10 mg/dL Low .1 CA 7.7 LAB L501.4100 15-37 U/L Normal AST 21 LAB L501.4305 45-117 U/L Normal ALK P 102 LAB L501.4405 16-61 U/L Low ALT 12 LAB L501.4600 0.20-1 mg/dL Normal .00 T BILI 0.50 LAB L501.5300 136-14 mmol/L Normal 5 NA 138 LAB L501.5600 3.5-5. mmol/L Low 1 K 3.3 LAB L501.5900 98-107 mmol/L Normal CL 103 LAB L501.6100 21.0-3 mmol/L Normal 2.0 CO2 26.0 LAB L501.6200 5-15 Normal GAP 9 Performed By: #### L500.4050, L501.2450 #### [facility] [address] [id number] LIPASE Collected: 09/24/2017 Status: F Source: [place] 6:34 AM [facility] [place] TYPE CODE TESTS RESULT OUT OF RANGE REFERENCE UNITS LAB L501.2450 73-393 U/L Normal LIPASE 215 Performed By: #### L500.4050, L501.2450 #### [facility] [address] [facility] [address] PHOSPHORUS Collected: 09/24/2017 Status: F Source: [place] 6:34 [facility] REPOSITORY Order Comment: Comments: Ok to use the AM blood for the TSH and the mag TYPE CODE TESTS RESULT OUT OF RANGE REFERENCE UNITS LAB L501.2300 2.5-4.9 mg/dL Low PHOS 2.0 Performed By: #### L501.2300, L501.5200, L501.9520 #### [facility] [address] [place], [address] MAGNESIUM Collected: 09/24/2017 Status: F Source: [place] 6:34 AM [facility] Order Comment: Comments: Ok to use the AM blood for the TSH and the mag TYPE CODE TESTS RESULT OUT OF RANGE REFERENCE UNITS LAB L501.5200 1.6-2.6 mg/dL Normal MG 1.7 Performed By: #### L501.2300, L501.5200, L501.9520 #### [facility] [address] [facility] [place] [place], [address] THYROID STIM HORMONE Collected: 09/24/2017 Status: F Source: [place] (TSH) 6:34 AM [facility] Order Comment: Comments: Ok to use the AM blood for the TSH and the mag TYPE CODE TESTS RESULT OUT OF RANGE REFERENCE UNITS LAB L501.9520 0.358-3.74 uIU/mL High TSH 19.10 Performed By: #### L501.2300, L501.5200, L501.9520 #### [facility] [address] [facility] [place] [place], [address] Observed: 09/23/2017 Status: F Source: [place] CULTURE, URINE 6:51 PM [facility] Interface Comments: collected in ER Urine Culture ORGANISM 1: Mixed Gram Pos AND Gram Neg Org Bennett Count <1000 MIX CULTURE Mixed contaminants. Submit a new specimen if indicated. Performed By: #### M100.0650 #### [facility] [address] [place], [address] HISTORY AND PHYSICAL Observed: 09/23/2017 Status: F Source: [place] EXAM 6:17 PM [facility] Medical Records Department [address] [facility] [place] [address] History and Physical 09/23/17 1726 MR#: [id number] Acct: [id number] Name: SABINA FLORES Rep #: [id number] : 1940 77 From: Gisela Ruffin MD PCP: Varun Wang MD Status: REG ER Y Location: ED Problem List (1) Acute pancreatitis Status: Acute History of Present Illness Date of Admission: 09/23/17 Chief Complaint: abdominal pain The patient is a 77 year old M with a past medical history of COPD, pill induced esophagitis, esophageal stricture status post biopsy at [facility] and currently awaiting results, 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 Patient was admitted from home by the ED on 09/23/2017 with complaint of significant epigastric pain which started this morning. Patient was discharged from [facility] 1 day ago after he had EGD and biopsy of an esophageal mass. Esophageal stricture was not dilated as the awaiting results of biopsy. He said pain was burning in nature, nonradiating to the back or anywhere else, mildly aggravated by eating as he drank a few yesterday and it made the pain worse, relieved by IV morphine in the ED. He states pain is similar to how he presented when he had pill induced esophagitis but that one needs to radiate up into his chest. He denied any fever or chills, any shortness of breath, any cough or chest pain, any diarrhea vomiting. He had nausea and retching but no dana vomiting. Of note, patient was diagnosed with thrombocytosis in [facility] and started on hydroxyurea. Vitals in the ED where blood pressure of 166/88, respiratory rate 22 temperature of 97.8 Fahrenheit and he was saturating at 92% on room air. Done in the ED showed white cell count of 49.3 and platelets of 1513 and hemoglobin of 12.6. Elevated white cell count and platelet was similar to previous records at [facility]. He was significant only for potassium of 3.3; AST and ALT were not elevated and ALT was only mildly elevated at 126. Lipase was 670. UA showed leukocyte esterase of around 500 with WBC of 10-25 and no bacteria seen. Chest and abdominal CT showed diffuse emphysematous changes of the lung with small bibasilar pleural effusion similar to previous study, and trace pericardial effusion which is slightly increased from previous study. It also showed normal liver gallbladder and extrahepatic biliary system with moderate organomegaly and normal kidneys as well as normal small intestine and normal colon. Pancreas also look normal, and small amount of free fluid in the deep pelvis which is new. He was started on IV ceftriaxone in the ED for UTI. 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) Allergies No Known Allergies Allergy (Verified 09/23/17 14:38) Home Medications: Ambulatory Orders Medication Instructions Recorded Albuterol Inhaler [Ventolin Hfa] 2 puff INHALATION Q6H PRN PRN 01/02/14 Surgical History: - - dysplasia of tongue, ulcer surgery with some removal of stomach? vocal cord lesion. Psychiatric History: No pertinent psych hx Lives: Spouse/ Significant Other Smoking Status: Former smoker Alcohol: Occasional Drugs: None - *Family History Maternal History Items: No pertinent history, - - No cancer Paternal History Items: No pertinent history Review of Systems Constitutional: Reports: Weakness. Denies: Anorexia, Chills, Fever Eyes: Denies: Blurred vision HEENT: Reports: Difficulty Swallowing - discomfort with swallowing solid foods. Denies: Head Aches, Sinus Congestion, Sinus Drainage Cardiovascular: Denies: Chest Pain - Comfortable with swallow, Palpitations Respiratory: Denies: Cough, Shortness of breath at rest, Sputum production Gastrointestinal: Reports: Abdominal Pain - Mainly epigastric, burning pain, Nausea, -. Denies: Vomiting Genitourinary: Denies: Dysuria, Frequency Musculoskeletal: Denies: Joint Pain, Joint Tenderness Skin: Denies: Rash, Wounds Neurological: Denies: Numbness, Tingling, Focal weakness Psychiatric: Denies: Anxiety, Depression, Homicidal Ideations, Suicidal Ideations Hematologic/ Lymphatic: Denies: Easy Bruising, Easy Bleeding VTE Information - Inpt Only VTE Present on Admission: No VTE Mechan Device Prophylaxis: SCD's VTE Pharm Prophylaxis ordered?: Yes Patient Problems: Active and Suspected Problems (Last Reviewed 05/03/17 @ 09:16 by Carmen Graham) Acute pancreatitis (Acute) - Physical Exam General: Alert, Oriented x3, Cooperative, No apparent distress, - - looked cachectic HEENT: Atraumatic, PERRLA, EOMI, Normocephalic Oral: Moist Mucosa Neck: Supple, No JVD, Negative Carotid Bruits Lungs: Clear to auscultation, Normal air movement, No rhonchi, No wheeze Cardiovascular: Regular Rhythm, Normal S1, Normal S2, No murmurs, Tachycardic Abdomen: Bowel Sounds Present, Soft, - - Moderate epigastric tenderness, with minimal guarding and no rebound tenderness. Partial gastrectomy scar Extremities: No clubbing, No cyanosis, No edema, Capillary Refill Less than 3 Seconds Skin: No rashes, No breakdown Musculoskeletal: No Tenderness to Palpation of Joints or Extremities, Cachexia Lymphatic: No Cervical, Supraclavicular, or Inguinal Adenopathy Neurological: Cranial nerves II-XII grossly intact, Neuro grossly intact, Motor Exam 5/5 strength throughout Psych/Mental Status: Normal Affect, Appropriate, Alert and oriented to time, place, person, mood and affect Vital Signs Temp Pulse Resp BP Pulse Ox 97.8 F 103 H 20 H 165/94 H 94 09/23/17 14:36 09/23/17 17:24 09/23/17 17:24 09/23/17 17:24 09/23/17 17:24 Oxygen Flow Rate (L/min) 2 Oxygen Delivery Method Nasal Cannula Weight: 122 lb 9.232 oz Body Mass Index (BMI) 17.1 Laboratory Tests Past 24 Hrs WBC RBC Hgb Hct Assessment/Plan Active and Suspected Problems (Last Reviewed 05/03/17 @ 09:16 by Carmen Graham) Acute pancreatitis (Acute) 77-year-old male with extensive past history of COPD, vocal cord cancer status post radiotherapy, pill induced esophagitis and esophageal stricture status post biopsy and awaiting results, thrombocytosis and partial gastrectomy after bleeding peptic ulcer disease. He presents with epigastric pain of one days duration associated burning in nature and nonradiating to the back. He denies any use of NSAIDs 1. Esophagitis vs PUDx vs pancreatitis * has a history of esophagitis due to doxycycline. Also has esophageal stricture * also has history of bleeding PUDx s/p partial gastretomy * on admission in ED, he had SIRS 4/4 * [place] [address]; this is similar to labs at [facility] * CT abdomen showed normal pancreas * lipase was 690; it is not 3x the upper limit of normal; this makes pancreatitis less likely * will keep NPO for now. Will hydrate with IVF NS * IV pantoprazole 40mg daily * will advance diet as tolerated from tomorrow. Usually on soft pureed diet, per daughter * to follow up on biopsy results from [facility] to rule out esophageal cancer * 2. Sepsis due to UTI * had SIRS 3/4 criteria on admission (RR-22, TN-103, [place] [address]) * chest and abdominal CT showed free fluid in pelvis * UA showed elevated Leucocyte esterase, but no bacteria * started on IV ceftriaxone in ED. will continue * urine culture;' will deescalate antibiotics as per culture results * 3. Thrombocytosis and marked leucocytosis * these may be due to a blood disorder. * started on hydroxyurea 500mg daily at [facility]. will continue * 4. COPD * stable * will put on breathing treatments * 5. Elevated BP * BP was 170s systolic at time of review. Was in 160s systolic on admission * per daughter, it is likely white coat hypertension as he is not a known hypertensive, and gets nervous when in hospital * IV hydralazine 10mg q6prn for SBP>160mmHg * 6. S/p partial gastrectomy: stable DVT prophylaxis: heparin GI prophylaxis:on IV pantoprazoel 40mg daily Code status: full code. This note was generated with LoveSpaceation software. It may contain incorrect words, spelling, and punctuation that were not noted in checking the note before signing. Code Visit OBSV E AND M: [id number] Initial observation care L3 09/23/171816 <Electronically signed by Gisela Ruffin MD> Date Gisela Ruffin MD Cosigner Signature: Date (if applicable) CC: Gisela Ruffin MD; Varun Wang MD Signed EMERGENCY DEPARTMENT Observed: 09/23/2017 Status: F Source: [place] SUMMARY 5:30 PM [facility] Medical Records Department [address] [place] [address] Emergency Department Summary 09/23/17 1726 MR#: [id number] Acct: [id number] Name: SABINA FLORES Rep #: [id number] : 1940 77 From: Israel Davis MD PCP: Varun Wang MD Status: REG ER - ER Visit Summary Date of Service: 09/23/17 Chief Complaint: Abdominal pain History of Present Illness: The patient is a 77 M who presents with abdominal pain. It initially began roughly 1 week ago. He complains of severe burning epigastric abdominal pain. He had called his primary care physician regarding a URI-like illness and was started on doxycycline. He then presented here for epigastric abdominal pain. He had an EGD and was found to have likely pill esophagitis. He also had an esophageal stricture. The surgeon was unable to pass the scope past the stricture and it was noted that there was thin friable bleeding tissue. He also had significant leukocytosis and thrombocytosis. He was transferred to [facility]. He was seen by hematology and started on allopurinol and hydroxyurea. He also had an EGD and was found to have a mass which was biopsied. His pain was under good control and he was discharged yesterday. Today he had return of severe burning epigastric abdominal pain and had 2 episodes of nonbloody nonbilious emesis. Physical Examination: Afebrile pulse ox 97% on 2 L he is on home oxygen vitals otherwise unremarkable Moist mucous membranes Heart regular rate and rhythm Lungs are clear to auscultation Patient has epigastric abdominal tenderness and voluntary guarding but his abdomen is soft when he relaxes Alert Test Results: EKG shows sinus rhythm at a rate of 95 with nonspecific T-wave changes. Laboratory studies notable for white blood cell count 49.3, platelets 1513. Lipase is 670. UA consistent with infection shows 500 leukocyte esterase and 10-25 WBCs. Lactic acid is normal. CT of the chest abdomen and pelvis shows emphysematous changes, right upper lobe scarring, small bilateral effusions, trace pericardial effusion, splenomegaly, free fluid in the pelvis. Emergency Department Course and Treatment: My initial concern given patient's recent EGDs with severe epigastric abdominal pain was for possible perforation. CT do not show evidence of this. He does have evidence of pancreatitis and UTI. He is improved after symptomatic treatment with IV fluids morphine Zofran and then Dilaudid. He was discussed with the hospitalist and will be admitted. He was given IV Rocephin for UTI. Treatment Plan: [] Disposition: Admit Impression: Pancreatitis UTI Esophageal stricture Leukocytosis Thrombocytosis This note was generated with [employer] dictation software. It may contain incorrect words, spelling, and punctuation that were not noted in review of the chart prior to signing ED Disposition - Plan for ED Patient: Chief Complaint: Abd Pain Referrals: Varun Wang MD [Primary Care Provider] - What to do if you have Problems For any increased pain, shortness of breath, bleeding, nausea or vomiting, chest pain, or any unexpected problems, contact your Primary Care Provider. Call [facility] ([phone]) or report to the closest Emergency Room. Call 911 if necessary. 09/23/17 1730 <Electronically signed by Israel Davis MD> Date Israel Davis MD Cosigner Signature (If Indicated): Date CC: aVrun Wang MD URINALYSIS, COMPLETE Collected: 09/23/2017 Status: F Source: [place] 4:05 PM [facility] Order Comment: How was Urine Obtained? IMMIGRATION INVESTIGATOR TO SPECIFY TYPE CODE TESTS RESULT OUT OF RANGE REFERENCE UNITS LAB L400.3000 Yellow COLOR Normal Yellow LAB L400.3050 Clear Normal CLARITY Sl. Cloudy LAB L400.3200 Normal mg/dl High GLUCOSE, UR 100 LAB L400.3300 Negative mg/dL Normal BILIRUBIN URINE Negative LAB L400.3400 Negative mg/dl High 50 KETONE UR LAB L400.3465 1.002-1.030 Normal SP.GR. DIPSTX 1.025 LAB L400.3550 5.0 - 8.0 pH UR Normal 6.0 LAB L400.3600 Negative mg/dl High PROT 15 DIPSTX LAB L400.3700 Normal mg/dl Normal UROBILI Normal LAB L400.3750 Negative Normal NITRITE UR Negative LAB L400.3780 Negative /ul Normal OCCULT BLOOD-UR Negative LAB L400.3800 Negative /ul High LEUK ESTERASE 500 LAB L400.4050 0-5 /hpf WBC Normal 10-25 SEEN LAB L400.4100 0-5 /hpf 0 Normal RBC-UA SEEN LAB L400.4150 0-5 /hpf SQUAM Normal EPI 0-5 SEEN LAB L400.4300 None Seen /hpf 0 Normal BACTERIA SEEN LAB L400.4350 <or=2+ /hpf 0 Normal MUCUS, URINE SEEN Performed By: #### L400.0001 #### [facility] [address] [facility] [place] [place], [address] ABDOMEN/PELVIS WITHOUT Observed: 09/23/2017 Status: F Source: [place] CONT 3:18 PM [facility] Imaging Services [address] [place] [address] Abdomen/Pelvis without Cont MR#: [id number] Acct: [id number] Name: SABINA FLORES Rep #: [id number] : 1940 [facility] From: Jassi Smith MD PCP: Varun Wang MD Status: REG ER Study: Abdomen/Pelvis without Cont Date of Exam: 09/23/17 Exam# [id number] Ordering Dr: Israel Davis MD STUDY: CT ABDOMEN AND PELVIS WITHOUT CONTRAST REASON FOR EXAM: Male, 77 years old. Mid abdominal pain, nausea and vomiting RADIATION DOSAGE (If Supplied By Facility): CTDIvol = ( 7.65 ) mGy, DLP = ( 388.40 ) mGycm TECHNIQUE: Transaxial images were obtained from the dome of the diaphragm to the symphysis pubis with oral contrast, and without intravenous contrast. Sagittal and coronal images were reconstructed. Individualized dose optimization techniques were used for this CT. COMPARISON: Previous study of 09/13/2017 FINDINGS: There are emphysematous changes of the lung bases. There is minimal bibasilar atelectasis. There are small bilateral pleural effusions representing a new interval finding. There is a trace pericardial effusion increased from the previous study. Normal liver. Normal gallbladder and extrahepatic biliary system. There is moderate splenic megaly. Calcified splenic granulomas are present. Normal pancreas. Normal bilateral adrenal glands. Normal right kidney. Normal left kidney. Surgical clips are seen in the region of the GE junction. Normal small intestine. Normal colon. The appendix is visualized and appears normal. There are calcified plaques of the abdominal aorta. Normal inferior vena cava. Normal retroperitoneum. Normal urinary bladder. There is a small amount of free fluid in the deep pelvis. Normal abdominal wall. There is a Schmorl's node of the inferior endplate of L3 which is no clinical significance. CT/Abdomen/Pelvis without Cont IMPRESSION: 1. Emphysematous changes of the lung bases. Minimal bibasilar atelectasis, new in the interval. 2. Small bilateral pleural effusions representing a new interval finding. 3. Trace pericardial effusion, increased from the previous study. 4. Moderate splenomegaly. Calcified splenic granulomas are present. 5. There is a small amount of free fluid in the deep pelvis, also new in the interval. Electronically Signed: Jassi Smith MD at 16:35 EDT , Service support , CC: Israel Davis MD; Varun Wang MD Lining Scrubber: Signed CHEST WITHOUT Observed: 09/23/2017 Status: F Source: [place] CONTRAST 3:18 PM [facility] Imaging Services [address] [place] [address] Chest without Contrast MR#: [id number] Acct: [id number] Name: SABINA FLORES Rep #: [id number] : 1940 M 77 From: Jassi Smith MD PCP: Varun Wang MD Status: REG ER Study: Chest without Contrast Date of Exam: 09/23/17 Exam# [id number] Ordering Dr: Israel Davis MD STUDY: CT CHEST WITHOUT CONTRAST REASON FOR EXAM: Male, 77 years old. Midabdominal pain, nausea and vomiting RADIATION DOSAGE (If Supplied By Facility): CTDIvol = ( 5.87 ) mGy, DLP = ( 221.27 ) mGycm TECHNIQUE: Transaxial imaging was performed without the administration of intravenous contrast material. Individualized dose optimization techniques were used for this CT. COMPARISON: Previous study of 09/17/2017 FINDINGS: There are diffuse emphysematous changes of the lungs. There is a small focus of scarring of the posterior right upper lobe. There are small bibasilar pleural effusions. There are mild atelectatic changes of the lung bases. There is a 5 mm nodule of the right lower lobe axial image 75, decreased in size from the previous study. The heart size is within normal limits. There is a trace pericardial effusion, increased from the previous study. There are calcified right mediastinal and hilar nodes. There is an enlarged right hilar node measuring approximately 2.4 cm, appearing similar to the previous study. Normal unenhanced pulmonary arteries. There are calcified plaques of the thoracic aorta. There is no evidence of thoracic aortic aneurysm. There is a slightly increased thoracic kyphosis. Abdominal findings are reported separately. CT/Chest without Contrast IMPRESSION: 1. Diffuse emphysematous changes of the lungs. 2. Small focus of scarring of the posterior right upper lobe, stable in the interval. 3. Small bibasilar pleural effusions similar to the previous study. 4. There are mild atelectatic changes of the lung bases, stable in the interval. 5. 5 mm nodule of the right lower lobe axial image 75, decreased in size in the previous study. 6. Trace pericardial effusion, increased from the previous study. 7. Calcified right hilar and mediastinal nodes. Enlarged right hilar node measuring approximately 2.4 cm, stable in the interval. Electronically Signed: Jassi Smith MD at 16:47 EDT , Service support , CC: Israel Davis MD; Varun Wang MD Lining Scrubber: Signed PROTHROMBIN TIME W/INR Collected: 09/23/2017 Status: F Source: [place] 3:00 PM [facility] TYPE CODE TESTS RESULT OUT OF RANGE REFERENCE UNITS LAB L300.4150 11.7-14.9 SECONDS Normal PROTIME 14.9 LAB L300.4200 Normal INR 1.2 Performed By: #### L300.3900 #### [facility] [place], [address] COMPREHENSIVE METABOLIC Collected: 09/23/2017 Status: F Source: [place] [facility] 3:00 PM [facility] TYPE CODE TESTS RESULT OUT OF RANGE REFERENCE UNITS LAB L501.0100 74-106 mg/dL High GLU 160 Result Comment: Fasting Glucose result greater than or equal to 126 mg/dL suggests DIABETES MELLITUS per A.D.A. criteria. Please note revised GLUCOSE reference range effective 2017. LAB L501.1000 7-18 mg/dL Normal BUN 7 LAB L501.1100 0.70-1.30 mg/dL Normal CREAT,SERUM 0.99 Result Comment: The validity of the calculated GFR AND GFRAA in patients over 70 years has not been determined. Clinical correlation is essential. LAB L501.1110 >60 mL/min Normal EST GFR 78 Result Comment: Non- GFR Calc LAB L501.1115 >60 mL/min Normal EST GFR - AA 95 Result Comment: GFR Calc LAB L501.1255 ml/min Normal Estimated CRCL 49.14 LAB L501.1300 10-20 RATIO Low BUN/CRE 7.1 LAB L501.1500 6.4-8. g/dL Normal 2 T PROT 6.6 LAB L501.1800 3.2-5. g/dL Low 0 ALB 3.1 LAB L501.1950 2.2-4. g/dL Normal 2 GLOB 3.5 LAB L501.2000 0.9-2. RATIO Normal 4 A/G 0.9 LAB L501.2200 8.5-10 mg/dL Normal .1 CA 8.5 LAB L501.4100 15-37 U/L Normal AST 18 LAB L501.4305 45-117 U/L High ALK P 126 LAB L501.4405 16-61 U/L Low ALT 15 LAB L501.4600 0.20-1 mg/dL Normal .00 T BILI 0.60 LAB L501.5300 136-14 mmol/L Normal 5 NA 139 LAB L501.5600 3.5-5. mmol/L Low 1 K 3.3 LAB L501.5900 98-107 mmol/L Normal CL 104 LAB L501.6100 21.0-3 mmol/L Normal 2.0 CO2 23.0 LAB L501.6200 5-15 Normal GAP 12 Performed By: #### L500.4050, L501.2450 #### [facility] [address] [place], [address] LIPASE Collected: 09/23/2017 Status: F Source: [place] 3:00 PM [facility] TYPE CODE TESTS RESULT OUT OF REFERENCE UNITS RANGE LAB L501.2450 73-393 U/L High LIPASE 670 Performed By: #### L500.4050, L501.2450 #### [facility] [address] [place], [address] LACTIC ACID Collected: 09/23/2017 Status: F Source: [place] 3:00 PM [facility] Order Comment: Yes/No query for Sepsis Lactate Rule Y TYPE CODE TESTS RESULT OUT OF RANGE REFERENCE UNITS LAB L503.6005 0.4-2.0 mmol/L Normal LACTIC ACID 1.8 Performed By: #### L503.6005 #### [facility] [address] [place], [address] CBC W/DIFF, AUTOMATED Collected: 09/23/2017 Status: C Source: [place] 3:00 PM [facility] TYPE CODE TESTS RESULT OUT OF RANGE REFERENCE UNITS LAB L100.1000 4.4-11.0 K/mm3 High alert WBC 49.3 Result Comment: CALLED TO JOHNATHAN ELIZABETH 09/23/17 AT 1559 BY DANE LAB L100.1200 4.6-6.2 M/mm3 High RBC 7.08 LAB L100.1300 13.0-16.5 g/dl Low HGB 12.6 LAB L100.1400 40-54 % Normal HCT 42.8 LAB L100.1500 80-94 fL Low MCV 60.5 LAB L100.1600 27.0-32.0 pg Low MCH 17.8 LAB L100.1700 32-36 g/gl Low MCHC 29.4 LAB L100.1810 11.6-14.6 % High RDW 23.3 CV LAB L100.1820 35.1-43.9 fl High RDW 46.3 SD LAB L100.1900 150-450 K/mm3 High alert PLT 1513 Result Comment: CALLED TO JOHNATHAN JOHNSON 09/23/17 AT 1559 BY DANE LAB L100.2000 6.2-12.0 fl Normal MPV 9.0 LAB L100.3100 MANUAL DIFF Normal CELLS COUNTED 100 LAB L100.3200 47-70 % High SEGS 91 LAB L100.3300 0-5 % Normal BAND 1 LAB L100.3400 0-1 % Normal META 1 LAB L100.3900 0-10 % Normal MONOCYTE 5 LAB L100.4000 0-5 % Normal EOS 2 LAB L100.4500 Normal SMEAR COMMENT SCANNED LAB L100.5500 ADEQ Normal PLT EST MKD INC LAB L100.5650 Normal PLT MORPH GIANT Result Comment: RARE GIANT PLATELETS NOTED LAB L100.7300 ANISO 4+ Normal LAB L100.7400 POIK 2+ Normal LAB L100.7500 POLYCHROMASIA RARE Normal LAB L100.8200 OVALOCYTE 1+ Normal LAB L100.8400 SCHISTOCYTES RARE Normal LAB L100.9900 PATH REV Normal Reviewed Result Comment: Neutrophilic leukocytosis. Thrombocytosis. Clinical correlation necessary. Chemo Choudhury M.D. 09/25/17 AMENDED REPORT 09/25/17 1411 PATH REV previously reported as: August martin LAB L100.2620 2.0-7.7 X10 3/uL High Absolute Neut 45.4 LAB L100.2720 0.83-4.51 X10 3/ul Low Absolute Lymph 0.00 Performed By: #### L100.0100 #### [facility] [address] [place], [address] NURSING PROG Observed: 09/22/2017 Status: COMPLETED Source: [place] 5:49 PM [facility] HNO ID: [id number] Author: Casi (Rn) TL [place] Service: (none) Author Type: Registered Nurse Type: Nursing Progress Note Filed: 09/22/2017 6:31 PM Note Text: Nursing Progress Note Patient Name: Sabina Flores Patient Location: [id number]/[id number] Daily Note: Discharge instructions given to patient and daughter. Pt/daughter instructed on how to make follow up appointments and about the scheduled follow up appointments. Pt left unit in stable condition with belongings. Per pt and daughter pt has oxygen at home. Pt left unit on 2L NC. No further questions noted. RN explained new medications for discharge. Pt instructed to fill prescriptions on the importance of filling the medications and follow up appointments This note was completed by: Casi Salamanca RN CNDS Observed: 09/22/2017 Status: COMPLETED Source: [place] 5:44 PM [facility] [place] REPOSITORY O ID: [id number] Author: Hernesto Sarkar Service: General Internal Medicine Author Type: Physician Type: Discharge Summaries Filed: 09/23/2017 10:19 AM Note Text: DISCHARGE SUMMARY PATIENT NAME: Sabina Flores ADMISSION DATE: 09/18/2017 DISCHARGE DATE: 09/22/2017 ATTENDING PHYSICIAN: Hernesto Sarkar REASON FOR HOSPITALIZATION: Esophageal stricture, leukocytosis, thrombocytosis DIAGNOSIS: Active Problems: Leukocytosis Iron deficiency anemia Thrombocytosis (HCC) Esophageal stricture Tachycardia History of peptic ulcer COPD (chronic obstructive pulmonary disease) (HCC) Diverticulosis of large intestine without hemorrhage Severe protein-calorie malnutrition (HCC) Body mass index (BMI) less than or equal to 19 in adult Malignant neoplasm of larynx (HCC) Dysphagia Squamous cell carcinoma of larynx (HCC) Former tobacco use S/P partial gastrectomy Vitamin D deficiency Hypoalbuminemia Subclinical hypothyroidism Low serum alkaline phosphatase Resolved Problems: Shortness of breath Prolonged INR Ruled Out OPERATIONS DURING HOSPITALIZATION: None PROCEDURES DURING HOSPITALIZATION: XR Esophagram and modified barium swallow 09/20: Short segment benign-appearing narrowing in the proximal esophagus (just caudad to the cervicothoracic junction). Mild volume gastroesophageal reflux. Minimal esophageal dysmotility. EGD 09/21/17: One malignant-appearing, intrinsic stenosis was found 20 cm from the incisors. This stenosis was moderately severe and measured 9 mm (inner diameter). The stenosis was traversed. Biopsies were taken with a cold forceps for histology. The entire examined stomach was normal. The examined duodenum was normal. TTE 09/20/17: - The left ventricle is normal in size. Left?ventricular systolic function is normal. EF = 59 ? 5% (2D 4-ch.) Strain not calculated due to poor image quality. - The right ventricle is normal in size. Right ventricular systolic function is low normal. - Thickened and calcified aortic valve. There is at least partial fusion of the non-and left coronary cusps. Unable to accurately calculated transaortic valve gradients. On 2-D imaging there is at least mild aortic stenosis. - The patient has not had a prior CC echocardiographic exam for comparison. 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 On nocturnal oxygen PRN - thrombocytosis - alcohol abuse - PUD s/p partial gastrectomy 1971 ? He presented to an OSH on 09/13/17 with complaints of shortness of breath and nausea. There was initially concern of acute enteritis vs ileus so he was started on cipro/flagyl. He also had an episode of impacted foreign body (iron pill) in his esophagus for which he underwent EGD (see below). He was offered PEG tube at the OSH but patient refused. There was also concern for COPD exacerbation and patient was given 1 dose of IV solu-medrol 40mg after he developed shortness of breath after esophagoscopy requiring 5-6L of O2 with pulse ox 93% and tachycardic and tachypneic and ABG 7.39/35.8/75 on 50% FiO2. He was also given IV iron (venofer x1) and started on oral iron for iron deficiency anemia. At the OSH there was concern for aspiration pneumonia so he was placed on ciprofloxacin and zosyn (started 09/18) prior to transfer. ? Per review of the OSH records, during his admission he was prescribed IV PPI, cipro, duoneb, flagyl, potassium chloride, lovenox, solu-medrol, zosyn, magnesium hydroxide, tylenol, ventolin, zofran, morphine PRN. ? Per OSH discharge summary: Patient is a 77-year-old gentleman with multiple comorbidities including COPD, throat cancer in August 2016 for which he received radiation therapy history of partial gastrectomy on account of bleeding ulcer presented with shortness of breath with associated nausea but no vomiting. An assessment of acute enteritis made treated symptomatically. Patient was also found to have an impacted foreign body attributed to suspected pill esophagitis versus obstruction. Patient underwent EGD the scope apparently could not be advanced beyond the suspected area of stricture and did not tolerate upper GI swallow study ordered on 09/17/2017. Did discuss his current condition with him he requested to be transferred to [facility] where he had previously received care. 1. Acute hypoxic respiratory failure secondary to COPD exacerbation suspected aspiration pneumonia imaging studies obtained on admission demonstrated COPD/emphysema with bronchiectasis as well as Findings concerning for developing infiltrate or mass in the right midlung field. Evaluation with CT ordered. With ciprofloxacin as well as Zosyn as stated above patient was transferred to F 2. Acute enteritis suspected to be viral enteritis treated symptomatically 3. Suspected esophageal stricture and underwent EGD by Dr. Becerril the scope apparently could not be advanced beyond the suspected area of stricture patient will tolerate upper GI swallow study on 09/17/2017 4. Right mid lung mass CT of the chest with contrast ordered for subsequent evaluation as recommended by radiology 5. Acute kidney injury resolved 6. Thrombocytosis possibly reactive patient has anemia with microcytosis; 7. DVT Prophylaxis; enoxaparin 8. Severe protein calorie malnutrition as evidenced by patient low BMI of 15.7, decreased energy level and muscle wasting consultation placed ? CT Chest 09/17/17: Small bilateral pleural effusions. Bibasilar atelectasis and/or early infiltrate superimposed on chronic interstitial scarring. Increased interstitial markings are also seen in the posterior aspect of the right upper lobe suggestive scarring. There is evidence of emphysematous changes in the upper lobes. Focal linear scarring is also seen in the left apex. There is a faint nodular density measuring 7.6 mm in the anterior aspect of the right upper lobe as seen on image #79 on the axial images. There are calcifications of the coronary arteries. Normal mediastinum. Enlarged right hilar lymph node measuring 2.3 cm. This is unchanged. Normal enhanced pulmonary arteries. There is atherosclerotic calcification of the aortic arch . There are multi-level degenerative changes of the thoracic spine. There is no demonstrated abnormality of the visualized upper abdomen. ? CT A/P 09/13/17: Emphysematous changes in the lung bases without acute findings. Small amount of scarring in the left lung base. The visualized portions of the heart are within normal limits. There is decreased attenuation of the liver consistent with steatosis. Normal gallbladder and extrahepatic biliary system. There is moderate splenomegaly. Somewhat heterogeneous enhancement pattern of the spleen however, likely due to arterial phase exam. Normal pancreas. Normal bilateral adrenal glands. Normal right kidney. Normal left kidney. There is a small hiatal hernia. Scattered fluid-filled loops of small bowel with scattered air-fluid levels. No abnormal dilation. There are multiple colonic diverticula consistent with diverticulosis. The appendix is visualized and appears normal. There is diffuse atherosclerotic calcification of the abdominal aorta, without a demonstrated aneurysm. Normal inferior vena cava. Normal retroperitoneum. Normal urinary bladder. There is enlargement of the prostate gland. Normal abdominal wall. There are diffuse degenerative changes of the visualized lumbar spine. ? Esophagoscopy with foreign body removal 09/14/17: The patient was brought back to the operating room and MAC anesthesia was administered by anesthesia. The EGD scope was placed into the mouth and into the pharynx. This was guided into the proximal esophagus where an obstruction and was met. While trying to use the 3-prong graspers to grasp the pill it slid forward into the distal esophagus into pieces. The scope was advanced through the stricture and was barely able to fit. The esophageal tissue was friable and there was some minor bleeding. The scope was withdrawn and this bleeding was monitored and it was felt to be very minor. The scope was slowly withdrawn and the patient was awoken and taken to PACU in stable condition. For fear of worsening the bleeding I did not pass the scope beyond the midesophagus 09/14/17: TIBC 269 (normal) Iron 14 (low) Iron sat 5.2 (low) Ferritin 15 (low) WBC 19.1 Hgb 10.5 MCV 61.0 Plt count 1164 ? 09/16/17 sputum gram statin presumptive C albicans ? Per records, as an outpatient patient takes ventolin 5-6x per week, and stiolto on a daily basis. ? Per patient: He has had 2 weeks of shortness of breath that has progressively worsened though is now stable. He believes he was diagnosed with pneumonia 2 weeks ago (productive cough) and was given antibiotics as an outpatient (not sure what kind, was sick too) and now the productive cough has improved though there is still a residual cough. He has had 6 months of difficulty swallowing; previous to that ~15 years ago he was told they wanted to stretch his larynx but besides that he denies trouble swallowing. He has also had 3 years of intermittent tinnitus and occasional positional dizziness. He denies bleeding ? He went into the hospital last after he had a pill stuck in his throat (feels like the pill is underneath his manubrium) and pounded on his chest. He then developed trouble breathing. He was eating and drinking at the OSH but then an iron pill got stuck. He had a scope to push the pill through. Since then has been NPO. At the OSH he also states he got some pain medicine and breathing treatments. He requested to be transferred to [facility] because his ENT doctors are here and for further management of the esophageal stricture as they were not allowing him to eat and just giving him IVF (the doctors at [place] did not want to intervene given the previous radiation to the area). He think the steroids helped with the SOB but he is still complaining of SOB and dry mouth/throat. He has not had alcohol for 3 weeks, since he started feeling sick. He previously drank 4 cans of beer a week. He was started empirically on vancomycin (3 days) and zosyn and started on IVF. Urine cultures negative. Blood cultures negative to date upon discharge. WBC count and platelet count downtrended slightly on this therapy, likely from a dilutional effect, but still remained significantly elevated. Heme was consulted and was concerned for a myeloproliferative disorder; they recommended checking for MPL mutation, BCR- ABL, CALR EXON mutation, and follow JAK2 mutation labs. Hematology started treatment with hydroxyurea 500mg qday and allopurinol 300mg qday. Hematology arranged for outpatient follow-up with Dr. Aguillon in [place]. He had an elevated INR to 2.2 on admission which improved on PO vitamin K 10mg x 3 doses. For his history of esophageal stricture, GI was consulted. He was originally kept NPO until evaluation by speech and swallow. XR esophagram and barium swallow showed: Short segment benign-appearing narrowing in the proximal esophagus (just caudad to the cervicothoracic junction). Mild volume gastroesophageal reflux. Minimal esophageal dysmotility. He was then cleared for a dysphagia level 3 diet with thin liquids. He tolerated diet well. He underwent diagnostic EGD on 09/21 which showed a malignant-appearing, intrinsic stenosis with biopsies taken. As patient did not want a Corpak placed and nutrition therapy believed he could eat enough calories by mouth with meals and supplements, tube feeding was not pursued. He was tolerating food by mouth with no pain or discomfort during his hospitalization. For his shortness of breath, he was started on spiriva and breo-ellipta for COPD management (as well albuterol and duoneb PRN). His subjective SOB improved. He underwent desat study close to discharge and he required no supplemental O2 at rest but did require 4 LPM O2 with exercise and at night. Transitions of Care Critical Issues: SPECIALIST FOLLOW-UP: He should follow-up with hematology for further evaluation of leukocytosis and thrombocytosis (Dr. Aguillon). He needs to continue to follow with gastroenterology for management of his esophageal stricture. Hematology wanted to draw a BCR-ABL Qualitative Multiplex RT-PCR but this can only be drawn M-F. Patient and family did not want to stay for the lab draw. Nursing wrote down the name of the lab and instructed them to follow-up with their produce service team member as an outpatient. PERRY MEDICATION CHANGES: His vitamin D levels were low so he was discharged on vitamin D supplementation. He was discharged on a COPD regimen of spiriva and breo-ellipta daily and instructed to stop stiolto and doxycycline. He was also instructed to start nutrition supplements and a multivitamin with iron. He was started on hydroxyurea and allopurinol by hematology just prior to discharge. LABS AND PROCEDURES PENDING AT DISCHARGE: CONSULTING TEAMS DURING HOSPITALIZATION: Hematology, Gastroenterology PATIENT CONDITION AT DISCHARGE: Stable DISCHARGE DISPOSITION: Home with Home Health Care GENERAL: alert, no distress, cooperative HEAD/SINUSES: No significant findings. EYES: PERRLA and EOMI NOSE: Nares normal. Septum midline NECK: supple LUNGS: Lungs clear to auscultation with improved breath sounds bilaterally, no wheezes, no crackles CARDIAC: normal S1 and S2; no rubs, murmurs, or gallops ABDOMEN: Abdomen soft, non-tender, no guarding/rebound. BS normal. EXTREMITIES: Extremities normal. No deformities, edema INFORMATION PROVIDED TO PATIENT: (To pull info documented from the DC Instruct Orderset Complete O/S First): Discharge Instructions DISCHARGE MEDICATION: Current Discharge Medication List START taking these medications Cholecalciferol (Vitamin D3) 1,000 Units Take 1,000 Units by mouth once daily. Qty: 30 tablet Refills: 3 mupirocin (BACTROBAN) 0.5 g Use 0.5 g in the nose twice daily. Qty: 2 g Refills: 0 Vit A-Vit W-Bytk-Oypswmwq 1 tablet Take 1 tablet by mouth once daily. Let dissolve in mouth. Qty: 30 Lozenge Refills: 1 Chlorhexidine Gluconate (PERIDEX) 15 mL Take 15 mL by mouth once daily. Swish for 30 seconds and then spit out. Qty: 30 mL Refills: 1 fluticasone (FLOVENT) 1 Puff Inhale 1 Puff as instructed twice daily. Qty: 1 Inhaler Refills: 1 allopurinol (ZYLOPRIM) 300 mg Take 300 mg by mouth once daily. This can be crushed. Qty: 30 tablet Refills: 1 hydroxyurea (HYDREA) 500 mg Take 500 mg by mouth once daily. Qty: 30 capsule Refills: 1 CONTINUE these medications which have CHANGED tiotropium-olodaterol 2 Puffs Inhale 2 Puffs as instructed once daily. CONTINUE these medications which have NOT CHANGED albuterol HFA (PROVENTIL HFA, VENTOLIN HFA) 2 Puffs Inhale 2 Puffs as instructed every 6 hours as needed for Wheezing/Shortness of Breath. Qty: 1 Inhaler Refills: 6 Associated Diagnoses:Pulmonary emphysema, unspecified emphysema type (HCC); Uncomplicated asthma, unspecified asthma severity STOP taking these medications doxycycline monohydrate (MONODOX) 100 mg Comments: Reason for Stopping: FUTURE APPOINTMENTS: Future Appointments Date Time Provider Department Center 10/09/2017 2:30 PM Ania CHAVIRAMN [facility] 11/26/2017 9:15 AM Marco A Scharpf [facility] [place] TIME OF CARE (Use first blank if not applicable): TIME OF CARE: Discharge Management: I personally spent greater than 30 minutes involved in the discharge management of this patient. SIGNATURE: Teressa Alarcon MD PATIENT NAME: Sabina Flores DATE: September 22, 2017 TIME: 3:51 PM PAGER/CONTACT #: [phone] [facility] STAFF PHYSICIAN NOTE OF PERSONAL INVOLVEMENT IN CARE Chart reviewed, patient examined, and perry elements of discharge summary of the patient confirmed and agree with the documented findings and plan of care. Care Coordination Discharge Management: I personally spent greater than 30 minutes involved in the discharge management of this patient Hernesto Sarkar MD FAAP FACP [facility] Internal Medicine-Pediatrics [facility] Medicine/IMPACT Pager: [phone] Date of Service: September 22, 2017 Time of Service: 5:00 PM CONSULT PROG Observed: 09/22/2017 Status: COMPLETED Source: GWINN 1:17 PM [facility] REPOSITORY HNO ID: [id number] Author: Sandeep Mendez Service: Hematology/Oncology Author Type: Physician Type: Consult Progress Note Filed: 09/22/2017 5:36 PM Note Text: Short hematology note: After further discussion of the patient we have decided to treat the patient with a low dose of hydroxyurea (500mg dialy) that he will continue daily until he follows-up with his local produce service team member. For kidney protection we have also started allopurinol 300mg daily. We've also sent out a BCR?ABL multiplex. Liam Tyson MD Heme/onc fellow [facility] STAFF PHYSICIAN NOTE OF PERSONAL INVOLVEMENT IN CARE I have reviewed the history and physical examination obtained and documented by the fellow and I personally participated in the perry components. I have discussed the case and management of the patient's care. The following comments revise or confirm relevant perry components of their note. IMPRESSION: This is a 77 year old male who presents with thrombocytosis and leukocytosis. 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 Denies headaches, post bathing itching, or erythromelalgia. Smear and pattern of elevations of platelets and WBC's worrisome for myeloproliferative disorder. Exam no nodes CVRRR Resp clear Abd spleen is enlarged, around 7 cm below LCM. Liver not enlarged Neuro non focal Assess: He wants his future heme care to be in [place]. Have alerted Dr. Aguillon, [facility] there about him. I'd feel more comfortable giving him something to lower platelets, so starting allopurinol and hydrea elixirs. If hydrea elixir not available for him, would allow him to open hydrea capsules and mix contents with water, but he should not expose that to anyone nearby, especially young potentially women. Sandeep Mendez MD Staff Hematology Pager [phone] Date of Service: 09/22/2017 Time of Service: 5:36 PM PROTIME Collected: 09/22/2017 Status: F Source: GWINN 3:27 AM [facility] REPOSITORY TYPE CODE TESTS RESULT OUT OF RANGE REFERENCE UNITS LAB PSEC 9.7-13.0 sec PT Sec 11.5 LAB INR 0.9-1.3 PT INR 1.1 Result Comment: Vitamin K Antagonist (VKA) Therapeutic Range: INR 2 to 3 (Target INR of 2.5) Note: For patients treated with VKA drugs, such as warfarin, the [place] [employer] 2012 Guideline recommends a therapeutic INR range of 2 to 3 (target INR of 2.5). This recommendation includes high-risk patients with antiphospholipid syndrome with previous arterial or venous thromboembolism, current-generation mechanical or bioprosthetic aortic heart valve replacement. Note: Patients with mechanical aortic valve replacement and additional risk factors for thromboembolic events (atrial fibrillation, previous thromboembolism, LV dysfunction, hypercoagulable conditions) or an older generation mechanical AVR (i.e., ball in-Cage) or any mechanical MVR should have a INR therapeutic range of 2.5 to 3.5 (target INR of 3). Belkys GH, et al. Chest 2012, 141:7S-47S Caridad RA, et al. [facility] 2017, 70: 252-289 Performed By: #### PT, CMP, PHOS, URIC, CBCDIF #### [facility] [address] [address] COMP METABOLIC PANEL Collected: 09/22/2017 Status: F Source: GWINN 3:27 AM [facility] REPOSITORY TYPE CODE TESTS RESULT OUT OF REFERENCE UNITS RANGE LAB TP 6.3-8.0 g/dL Low Protein, Total 4.7 LAB ALB 3.9-4.9 g/dL Low Albumin 2.7 LAB CA 8.5-10.2 mg/dL Low Calcium, Total 7.9 LAB TBIL 0.2-1.3 mg/dL Bilirubin, Total 0.4 LAB ALKP 36-108 U/L Alkaline Phosphatase 66 LAB AST 14-40 U/L AST 14 LAB GLU 74-99 mg/dL Glucose 80 Result Comment: The [place] [employer] (ADA) provides guidance for cutoff values for fasting glucose and random glucose. The ADA defines fasting as no caloric intake for at least 8 hours. Fas ting plasma glucose results between 100 to 125 mg/dL indicate increased risk for diabetes (prediabetes). Fasting plasma glucose results greater than or equal to 126 mg/dL meet the criteria for diagnosis of diabetes. In the absence of unequivocal hyperglycemia, results should be confirmed by repeat testing. In a patient with classic symptoms of hyperglycemia or hyperglycemic crisis, random plasma glucose results greater than or equal to 200 mg/dL meet the criteria for diagnosis of diabetes. Reference: Standards of Medical Care in Diabetes 2016, [place] [employer]. Diabetes Care. 2016.39(Suppl 1). LAB BUN 9-24 mg/dL BUN Low 7 LAB CRET 0.73-1.22 mg/dL Creatinine 1.04 LAB NA 136-144 mmol/L Sodium 140 LAB K 3.7-5.1 mmol/L Potassium Low 3.4 LAB CL 97-105 mmol/L Chloride 103 LAB CO2 22-30 mmol/L CO2 24 LAB AGAP 9-18 mmol/L Anion Gap 13 LAB ALT 10-54 U/L ALT 10 LAB GFRAA eGFR- Amer. >60 LAB GFRNAA . eGFR-All Other Races >60 Result Comment: eGFR (Estimated GFR) Units of measure: mL/min/1.73 meters squared eGFR is derived from the reexpressed MDRD Study equation using the following parameters: serum creatinine, age, gender and race. The creatinine assay has been calibrated to be traceable to IDMS. An eGFR <60 mL/min/1.73m2 for >3 months is consistent with chronic kidney disease. Refer to KDOQI guidelines for clinical interpretation. In patients with unstable renal function, e.g. those with acute kidney injury, the eGFR may not accurately reflect actual GFR. Performed By: #### PT, CMP, PHOS, URIC, CBCDIF #### [facility] [address], [place] [address] PHOSPHORUS Collected: 09/22/2017 Status: F Source: GWINN 3:27 AM [facility] REPOSITORY TYPE CODE TESTS RESULT OUT OF REFERENCE UNITS RANGE LAB PHOS 2.7-4.8 mg/dL Low Phosphorus 2.4 Performed By: #### PT, CMP, PHOS, URIC, CBCDIF #### [facility] [address], [place] [address] URIC ACID Collected: 09/22/2017 Status: F Source: GWINN 3:27 AM [facility] REPOSITORY TYPE CODE TESTS RESULT OUT OF RANGE REFERENCE UNITS LAB URIC 4.0-8.1 mg/dL Uric Acid 4.3 Performed By: #### PT, CMP, PHOS, URIC, CBCDIF #### [facility] [address], [place] [address] CBC AND DIFFERENTIAL Collected: 09/22/2017 Status: F Source: GWINN 3:27 AM [facility] REPOSITORY TYPE CODE TESTS RESULT OUT OF REFERENCE UNITS RANGE LAB WBC 3.70-11.00 k/uL WBC 22.80 High LAB RBC 4.20-6.00 m/uL RBC 6.68 High LAB HGB 13.0-17.0 g/dL Hemoglobin 11.6 Low LAB HCT 39.0-51.0 % Hematocrit 41.2 LAB MCV 80.0-100.0 fL MCV 61.7 Low LAB MCH 26.0-34.0 pG MCH 17.4 Low LAB MCHC 30.5-36.0 g/dL MCHC 28.2 Low LAB RDWCV 11.5-15.0 % RDW-CV 24.6 High LAB PLTCT 150-400 k/uL Platelet Count 964 High LAB MPV 9.0-12.7 fL MPV 9.2 LAB ANEUT % Neut% 89.7 LAB AANEUT 1.45-7.50 k/uL Abs Neut 20.45 High LAB ALYMP % Lymph% 4.3 LAB AALYMP 1.00-4.00 k/uL Abs Lymph 0.98 Low LAB AMONO % Preston% 3.4 LAB AAMONO <0.87 k/uL Abs Preston 0.78 LAB AEOS % Eosin% 2.6 LAB AAEOS <0.46 k/uL Abs Eosin 0.59 High LAB ABASO % Baso% 0.0 LAB AABASO <0.11 k/uL Abs Baso 0.00 LAB ANIIMI Anisocytosis Present LAB OVAIMI Ovalocytes Few LAB POLIMI Polychromasia Slight LAB TEAIMI Tear Drop Cells Few LAB HSGIMI Hypersegmented PMNs Occasional LAB PLTEST Platelet Estimate Platelet estimate increased LAB DTYP DTYPE Manual Diff Performed By: #### PT, CMP, PHOS, URIC, CBCDIF #### [facility] [address] [id number] CALR EXON 9 MUTATION Collected: 09/21/2017 Status: F Source: GWINN 7:08 PM [facility] REPOSITORY TYPE CODE TESTS RESULT OUT OF REFERENCE UNITS RANGE LAB CALRS CALR Specimen Blood Type LAB CALRIN CALR Result: CALR Result/Interp mutation NOT DETECTED Result Comment: Interpretation: Fragment length analysis shows no evidence of a CALR exon 9 mutation. This result does not exclude the possibility of a myeloproliferative neoplasm. This assay is not int ended for detection of minimal residual disease. (NOTE) Methodology: Genomic DNA is isolated from the sample and CALR exon 9 is amplified by PCR. Fragment length analysis is performed to assess for insertion/deletion mutations. The limit of detection for this assay is 5% mutant alleles. This test was developed and its performance characteristics determined by [facility]'s [facility] [place] ([facility]). It has not been cleared or approved by the FDA. [facility] is regulated under CLIA as qualified to perform high-complexity testing. This test is used for clinical purposes. It should not be regarded as investigational or for research. LAB CALREV CALR Reviewed by Reviewed by Kory Kemp M.D., Ph.D ([id number]) Performed By: #### CALR #### [facility] [address] [id number] MPL MUTATION Collected: 09/21/2017 Status: F Source: GWINN 7:08 PM [facility] REPOSITORY TYPE CODE TESTS RESULT OUT OF REFERENCE UNITS RANGE LAB MPLT MPL Mutation (NOTE) Interp Result Comment: Performing Pathologist: Hugo Anthony Specimen Type: Peripheral blood Results: MPL exon 10 mutation NOT DETECTED Interpretation: A MPL exon 10 mutation is not detected. This result does not exclude the possibility of a low-copy mutation that is outside the limit of detection for this assay, and does not exclude the possibility of a myeloproliferative neoplasm. Clinical correlation is suggested. Methodology: Following DNA extraction and library construction utilizing the custom Cancer Hotspot Panel v.1 ([employer], [place], [place]), DNA sequencing of gene mutation hotspot regions was performed on the MiSeq instrument ([employer], [place], [place]). Bitspark software ([employer], [place], [place]) was used to analyze FASTQ files to identify hotspot mutations in requested genes. Test Limitations: Sequence changes outside the analyzed mutation hotspots, including intronic, non-coding, and splice site variants, will not be identified by this test. Insertions and deletions larger than 20 and 40 bp, respectively, may not be identified by this test. The lower limit of detection of this assay is approximately 5% allele proportion. Variants below 5% allele proportion may be reported at the discretion of the molecular pathology professional staff if the technical quality of the sequencing is sufficient at that location and the call is unequivocal. Common germline polymorphisms are considered to represent wild type sequence and are not included in this report. The presence of nucleotide polymorphisms or variants at the annealing sites of the primers used in amplification and sequencing may cause allele drop-outs, hence a false negative result is possible. This test was developed and its performance characteristics determined by [facility] [place] ([facility]). It has not been cleared or approved by the FDA. [facility] is regulated under CLIA as qualified to perform high-complexity testing. This test is used for clinical purposes. It should not be regarded as investigational or for research. References: The Vkj394 mutation of the c-MPL gene, which causes familial essential thrombocythemia, induces autonomous homodimerization of the c-Mpl protein due to strong amino acid polarity. Ding, J, et al. Blood. 2009 Jan 8; 114(15):0664-1926. Clinical utility of routine MPL exon 10 analysis in the diagnosis of essential thrombocythaemia and primary myelofibrosis. ARAMIS Ibrahim, et al. Br J Haematol. 2010 Jul;149(2):250-2577 MPL Mutation Profile in JAK2 Mutation-negative Patients With Myeloproliferative Disorders. Sandra Carlin, et al. Diagn Mol Pathol. 2011 Jun;20(1):34-39. [id number] mutation in acute megakaryoblastic leukaemia. Glynn K, et al. Leukemia. 2009 August;23(5):852-855. Novel mutations and their functional and clinical relevance in myeloproliferative neoplasms: JAK2, MPL, TET2, ASXL1, CBL, IDH and IKZF1. Natanael Crooks. Leukemia. 2010 Brian;24(6):2810-4975. Screening for MPL mutations in essential thrombocythemia and primary myelofibrosis: normal Mpl expression and absence of constitutive STAT3 and STAT5 activation in [id number] platelets. Mariyambjustinky AC, et al. Eur J Haematol. 2010 August;84(5):398-405. IFG394 mutations in myeloproliferative and other myeloid disorders: a study of 1182 patients. MADY Carlson et al. Blood. 2005Mar 14;108(10):3472-27337. JAK2 V617F and MPL W515L/K Mutations in [place] Patients with Essential Thrombocythemia. JO-ANN Triana, et al. [place] J Lab Med. 2009;30(5):474-476. Performed By: #### MPL #### [facility] [address] [address] ANES POST Observed: 09/21/2017 Status: COMPLETED Source: GWINN 4:00 PM [facility] REPOSITORY HNO ID: [id number] Author: Isidro Eller Service: (none) Author Type: Anesthesiologist Type: Anesthesia PostOp Filed: 09/21/2017 4:00 PM Note Text: POST ANESTHESIA EVALUATION NOTE SERVICE DATE: 09/21/2017 : 1940 Vitals: 09/20/17211009/21/17 0002 09/21/17 0813 09/21/17 1222 Temp: 36.6 ?C (97.8 ?F) 36.4 ?C (97.6 ?F) 36.6 ?C (97.8 ?F) 36.6 ?C (97.8 ?F) 09/20/17211009/21/17 0002 09/21/17 0813 09/21/17 1222 BP: 124/61 125/61 118/87 121/62 09/20/17211009/21/17 0002 09/21/17 0813 09/21/17 1222 Pulse: 79 86 79 80 09/20/17211009/21/17 0002 09/21/17 0809/21/17 1222 Resp: 18 18 16 18 09/20/17211009/21/17 0002 09/21/17 0809/21/17 1222 SpO2: 98% 97% 97% 99% Validated Vital Signs: Yes POST ANES STATUS: No apparent anesthetic complications. The patient is appropriately hydrated with stable respiratory and cardiovascular status. Patient has safe and adequate airway control. The patient has appropriate pain relief and no significant post operative nausea or vomiting. The patient has achieved baseline mental status. Further assessment by Anesthesia Service: None Other Remarks: SIGNATURE: Isidro Eller MD PATIENT NAME: Sabina Flores DATE: September 21, 2017 TIME: 4:00 PM PAGER/CONTACT #: [phone] SURGICAL PATHOLOGY Observed: 09/21/2017 Status: F Source: GWINN 3:27 PM [facility] REPOSITORY Specimen originated from [facility] Specimen #: [id number] Submitting Physician: MAJOR ALVARADO M.D. FINAL DIAGNOSIS Esophageal stricture, biopsy - Ulcerated squamous mucosa with focal active inflammation. - Pigmented crystalline material, probably iron pill. - No evidence of malignancy. TP/glw 09/25/2017 COMMENT The clinical concern for malignancy is noted. Although there are some atypical cells (probably stromal cells) in association with the ulcer, the adjacent epithelium is reactive in appearance. Sampling error is a possibility. Iron stain highlights the luminal crystalline material. Pedrito Licea M.D. (Electronic Signature) SPECIMEN SUBMITTED A: ESOPHAGEAL STRICTURE, BIOPSY CLINICAL DATA HX OF SCC LARYNX R/O CANCER GROSS DESCRIPTION A. Received in formalin are two pieces of morales, soft tissue aggregating to 0.5 x 0.2 x 0.1 cm. Totally submitted in one cassette. Gross examination performed at [facility], [address] [place] [address] 09/21/2017 8:58:17 PM Date of Report: 09/26/2017 Date of Procedure: 09/21/2017 Date of Receipt: 09/21/2017 Submitted by: MAJOR ALVARADO M.D. Location: Q31 Diagnostic interpretation performed at [facility], [address] [place] [address]. NUTRITION Observed: 09/21/2017 Status: COMPLETED Source: GWINN 12:02 PM [facility] REPOSITORY HNO ID: [id number] Author: Joselin Rivers Service: Nutrition Therapy Author Type: Registered Dietitian Type: Nutrition Filed: 09/21/2017 6:00 PM Note Text: NUTRITION THERAPY PROGRESS NOTE SERVICE DATE: 09/21/2017 SERVICE TIME: 1725 RECOMMENDED DIAGNOSIS: SEVERE PROTEIN-CALORIE MALNUTRITION per Registered Dietitian on 09/19 NUTRITION CARE PLAN Intervention: D3 Boost Glucose Control with meals and HS Monitor and Evaluation: Goal: Meet >75% of estimated needs Monitor fluid/electrolyte balance Monitor labs, I/Os, vital signs, weight Discharge Nutrition Recommendations: Diet and supplements (as well as CIB powder) at home - at least 2 sups and 1 CIB Interval History: Phone conversation with resident this morning re: need for corpak. Pt had stated his aversion to same earlier this morning although per resident was scheduled for same with EGD today. MBs yesterday - no aspiration; prognosis: favorable with controls. She recommended starting with D3 diet and advancing to regular as tolerated. Pt willing to drink 2-3 supplements, although not Ensure - they give me diarrhea. Pt needs to wear his dentures for meals. Recommend chewable vitamins at home. Present Diet Order: NPO (for EGD) - now D3 Nutritional Intake: took 100% dinner last night (only meal he's had) - 573kcal and 29g pro. Admission Weight: 53.7 kg (118 lb 6.2 oz) Current Weight: 53.7 kg (118 lb 6.2 oz) Body mass index is 16.51 kg/m?. underweight Estimated kilocalorie needs: 1710 - 1995 kilocalories determined by 30 - 35 kcal/kg (57kg) Estimated protein needs: 85 - 100 grams determined by 20% energy needs current wt given positive fluid balance. MNT Billing Type: Re-assess/15 min 2 units SIGNATURE: Joselin Rivers MS RDN-AP [facility] PATIENT NAME: Sabina Flores DATE: September 21, 2017 TIME: 12:02 PM PAGER: [phone] CASE MANAGEM Observed: 09/21/2017 Status: COMPLETED Source: [place] 10:18 AM [facility] REPOSITORY HNO ID: [id number] Author: Iva (Tl) TL Barrera Service: Case Management Author Type: Registered Nurse Type: Care Mgt Progress Note Filed: 09/21/2017 4:41 PM Note Text: CARE MANAGEMENT PROGRESS NOTE SERVICE DATE: 09/21/2017 SERVICE TIME: 1018 LOS: 3 days Needs Prior to Discharge: Ready for Discharge NO SKILLED NEEDS. POSSIBLE WEEKEND DISCHARGE. Patient discharge date TBD home via daughter transportation. Patient not medically clear needs evaluation from Hematology. Awaiting further recommendations. Patient had desat study showed need for oxygen. Patient active with [facility] [place] [phone] Sarkar filled out Certificate of Medical Necessity faxed to [facility] [place]. [facility] [place] will delivery to bedside portable and patient to call once home for other needed equipment. Patient given number to call. For weekend case management needs, please page [phone]. Thank you. 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 The V617F point mutation has been reported in a high percentage of cases of polycythemia vera, approximately half of the cases of essential thromboc ythemia and chronic idiopathic myelofibrosis, and in a smaller proportion of other myeloid disorders. (NOTE) Methodology: Following DNA extraction and library construction utilizing the custom Cancer Hotspot Panel v.1 ([employer], [place], [place]), DNA sequencing of gene mutation hotspot regions was performed on the MiSeq instrument ([employer], [place], [place]). Bitspark software ([employer], [place], [place]) was used to analyze FASTQ files to identify hotspot mutations in requested genes. Test Limitations: Sequence changes outside the analyzed mutation hotspots, including intronic, non-coding, and splice site variants, will not be identified by this test. Insertions and deletions larger than 20 and 40 bp, respectively, may not be identified by this test. The lower limit of detection of this assay is approximately 5% allele proportion. Variants below 5% allele proportion may be reported at the discretion of the molecular pathology professional staff if the technical quality of the sequencing is sufficient at that location and the call is unequivocal. Common germline polymorphisms are considered to represent wild type sequence and are not included in this report. The presence of nucleotide polymorphisms or variants at the annealing sites of the primers used in amplification and sequencing may cause allele drop-outs, hence a false negative result is possible. This test was developed and its performance characteristics determined by [facility]'s [facility] [place] ([facility]). It has not been cleared or approved by the FDA. [facility] is regulated under CLIA as qualified to perform high-complexity testing. This test is used for clinical purposes. It should not be regarded as investigational or for research. References: Zoë DA, Klever Santoyo, Carlos R, Brandee J, Borowitz MJ, Cisco Rios MM, et al. The 2016 revision to the World Health Organization (WHO) classification of myeloid neoplasms and acute leukemia. Blood 2016;127: 2391-405. Valeriy Santoyo, Hilda R, Guerrero JW. Myeloproliferative neoplasms: contemporary diagnosis using histology and genetics. Johana Rev Clin Oncol 2009;6:627-37. LAB MOLREV Molecular Path Reviewed Rev by Hugo Anthony M.D. ([id number]) Performed By: #### JAK2 #### [place] [id number] CONSULT Observed: 09/21/2017 Status: COMPLETED Source: [place] 8:15 AM [facility] REPOSITORY HNO ID: [id number] Author: Sandeep Mendez Service: Hematology Author Type: Physician Type: Consults Filed: 09/21/2017 4:57 PM Note Text: Hematology Consult History and Physical PATIENT NAME: Sabina Flores [facility] NO.: [id number] ATTENDING PHYSICIAN: DATE OF SERVICE: September 21, 2017 PRIMARY TEAM: Internal Medicine REASON FOR CONSULT: Thrombopcytosis HISTORY OF PRESENT ILLNESS: Mr. 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 Patient has been having difficulty swallowing solid food for the last 6 month. He initially presented to [place] ED on 09/13 with abdominal pain and nausea. CT of the abdomen didn't show any acute findings, but revealed a moderately enlarged spleen. An EGD revealed an obstruction at the proximal esophagus and foreign body was seen ( iron pill). Patient was subsequently transferred to [facility] for further care. He has been evaluated by Gastroenterology who feel that his esophageal stricture is likely secondary to radiation and that he will need serial dilations. Hematology consult is being requested for thrombocytosis. CBC at presentation on 09/18 revealed : WBC 36.45, Hgb 12.4, PLT 1.3 M, MCV 60.9. We only had handful of CBC savailavle that shows increasing platelet count since 2014: 432 K (2014)--->529 K ( 2015)-->752 K ( 2017). Also in 2012 and 2013 there was an elevated H/H in the 18's/54's range. 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 - Former tobacco use 09/18/2017 - History of laryngeal cancer 10/27/2014 - Interstitial lung disease (HCC) 02/09/2011 Ct chest 01/2011 - Iron deficiency anemias 01/11/2005 - Low serum alkaline phosphatase 09/20/2017 - Malignant neoplasm of larynx (HCC) 05/31/2017 - PEPTIC ULCER NOS 01/11/2005 - PERS HX OF ALCOHOLISM 01/11/2005 - Polycythemia 05/21/2013 - S/P partial gastrectomy 09/18/2017 - Severe protein-calorie malnutrition (HCC) 11/20/2016 - Shortness of breath 09/18/2017 - Squamous cell carcinoma of larynx (HCC) 02/08/2017 - Subclinical hypothyroidism 09/20/2017 - Tobacco use disorder 01/11/2005 - Unspecified asthma(493.90) 03/03/2011 PAST SURGICAL HISTORY Procedure Laterality Date - COLONOSCOP W/ OR W/O BRSH SPEC 2003 Colonoscopy - COLONOSCOP W/ OR W/O BRSH SPEC 02/20/2013 Colonoscopy - COLONOSCOP W/ OR W/O BRSH SPEC 03/30/16 Colonoscopy - EGD W/O OR W/BRUSH/WASH 2003 EGD - EGD W/O OR W/BRUSH/WASH 02/20/13 EGD - ESOPH W/O BRSH SPEC BALLOON DIL 12-1-2003 Esophageal dilatation - LARYNGOSCOPY W/ BIOPSY 02/06/2014 - PARTIAL GASTRECTOMY 1970 - PAST SURGICAL HISTORY OF Left 08/29/2016 Floor of mouth resection, sialadochoplasty FAMILY HISTORY Problem Relation Age of Onset - Cancer Brother lung cancer - Cancer Brother bone cancer - Cancer Brother brain tumor or cancer - Coronary Artery Disease Father age 64, [place] - None Mother age 95 Social History Marital status: Spouse name: Years of education: Number of children: Social History Main Topics Smoking status: Former Smoker Packs/day: 2.00 Years: 52.00 Types: Cigarettes Quit date: 09/01/2013 Smokeless tobacco: Never Used Alcohol use: Yes 6.0 oz/week Cans of Beer (12oz): 4 per week Drug use: No Sexual activity: No Current hospital medications: potassium chloride 40 mEq CUP 40 mEq ORAL ONCE enoxaparin 40 mg injection (LOVENOX) 40 mg SUBCUTANEOUS q 24 H mupirocin 2% 0.5 g nasal ointment (BACTROBAN) 0.5 g NASAL BID ergocalciferol (vitamin D2) 50,000 Units cap(s) (DRISDOL) 50,000 Units ORAL q 1 WEEK phytonadione 10 mg oral liquid (VITAMIN K) 10 mg ORAL DAILY 0.9% NaCl 3-5 mL 3-5 mL INTRAVENOUS q 12 H albuterol 2.5 mg /3 mL (0.083 %) 2.5 mg (PROVENTIL) 2.5 mg INHALATION q 4 H PRN ipratropium-albuterol 3 mL nebulizer solution (DUONEB) 3 mL INHALATION q 4 H PRN piperacillin-tazobactam 3.375 g in dextrose (iso-osmotic) 50 mL (ZOSYN) 3.375 g INTRAVENOUS q 6 H pantoprazole 40 mg injection (PROTONIX) 40 mg INTRAVENOUS DAILY (6 AM) dextrose 5% in NaCl 0.45% iv infusion 50 mL/hr INTRAVENOUS CONTINUOUS Chlorhexidine Gluconate 0.12 % 15 mL (PERIDEX) 15 mL ORAL q 6 H tiotropium 18 mcg cap(s) and device for inhalation (SPIRIVA) 18 mcg INHALATION DAILY fluticasone-vilanterol 100-25 mcg/dose 1 Inhalation (BREO ELLIPTA) 1 Inhalation INHALATION DAILY ALLERGIES: ALLERGIES No Known Allergies Review Of Systems GENERAL: No weight loss, malaise or fevers RESPIRATORY: Negative for cough, hemoptysis, wheezing, dyspnea or shortness of breath CARDIOVASCULAR: Negative for chest pain, leg swelling, hypertension, CHF or palpitations GI: +difficulty swallowing MUSCULOSKELETAL: Negative for joint pain or swelling, back pain or muscle pain HEMATOLOGY/LYMPHOLOGY: Negative for prolonged bleeding, bruising easily or swollen nodes NEURO: No history of headaches, syncope, paralysis, seizures or tremors ? PHYSICAL EXAMINATION: BP 118/87 Pulse 79 Temp 36.6 ?C (97.8 ?F) (Oral) Resp 16 Ht 180.3 cm (5' 11) Wt 53.7 kg (118 lb 6.2 oz) SpO2 97% BMI 16.51 kg/m? Intake/Output Summary (Last 24 hours) at 09/21/17 0849 Last data filed at 09/21/17 0745 Gross per 24 hour Intake 1301 ml Output 4 ml Net 1297 ml General: No acute distress. AANDO x3. HEENT: No scleral icterus, mild conjunctival pallor, neck supple, no cervical,supraclavicular or axillary adenopathy Cardiac: RRR, normal S1 S2, no murmurs, rubs Pulm: Clear to auscultation, no rhonchi, wheeze Abdomen: Soft,NT,ND Extremities: No edema, calf tenderness, or asymmetry. Pedal pulses present. Skin: No jaundice, rashes, lesions, purpura, or ecchymoses Neurological: Alert and oriented x 3, no gross focal motor deficits DIAGNOSTIC STUDIES: Component WBC RBC Hemoglobin Hematocrit MCV MCH MCHC RDW-CV Platelet Count Latest Ref Rng AND Units 3.70 - 11.00 k/uL 4.20 - 6.00 m/uL 13.0 - 17.0 g/dL 39.0 - 51.0 % 80.0 - 100.0 fL 26.0 - 34.0 pG 30.5 - 36.0 g/dL 11.5 - 15.0 % 150 - 400 k/uL 02/10/2013 9.13 6.26 (H) 15.3 49.4 78.9 (L) 24.4 (L) 31.0 23.8 (H) 332 04/08/2013 9.20 6.50 (H) 18.5 (H) 54.3 (H) 83.5 28.5 34.1 18.2 (H) 363 05/20/2013 9.51 6.14 (H) 18.1 (H) 52.6 (H) 85.7 29.5 34.4 15.4 (H) 349 06/19/2013 9.31 6.12 (H) 17.9 (H) 51.9 (H) 84.8 29.2 34.5 14.8 346 08/11/2013 8.59 5.94 16.7 48.3 81.3 28.1 34.6 15.3 (H) 328 01/30/2014 7.96 6.37 (H) 16.0 47.9 75.2 (L) 25.1 (L) 33.4 15.6 (H) 398 04/07/2014 02/10/2015 7.47 6.49 (H) 14.5 45.8 70.6 (L) 22.3 (L) 31.7 18.1 (H) 432 (H) 08/17/2015 8.53 7.00 (H) 14.1 46.1 65.9 (L) 20.1 (L) 30.6 17.8 (H) 529 (H) 08/15/2016 11.30 (H) 7.54 (H) 13.6 48.8 64.7 (L) 18.0 (L) 27.9 (L) 21.5 (H) 752 (H) 09/18/2017 36.45 (H) 7.11 (H) 12.4 (L) 43.3 60.9 (L) 17.4 (L) 28.6 (L) 24.5 (H) 1,355 (H) 09/19/2017 30.59 (H) 6.87 (H) 12.0 (L) 41.6 60.6 (L) 17.5 (L) 28.8 (L) 24.2 (H) 1,268 (H) 09/20/2017 21.52 (H) 6.64 (H) 11.4 (L) 40.3 60.7 (L) 17.2 (L) 28.3 (L) 24.0 (H) 954 (H) 09/21/2017 27.88 (H) 6.87 (H) 11.7 (L) 42.7 62.2 (L) 17.0 (L) 27.4 (L) 24.9 (H) 1,070 (H) Component Vitamin B12 Folate Latest Ref Rng AND Units 232 - 1,245 pg/mL >4.7 ng/mL 01/19/2004 282 04/08/2013 810 (H) 06/19/2013 318 09/19/2017 345 09/20/2017 365 6.8 Component Latest Ref Rng AND Units 01/19/2004 01/11/2005 04/08/2013 09/19/2017 Iron 41 - 186 ug/dL 24 (A) 49 133 23 (L) TIBC 232 - 386 ug/dL 371 292 324 200 (L) Transferrin Saturation 15 - 57 % 6 (A) 17 41 12 (L) Ferritin 30.3 - 565.7 ng/mL 8.5 (A) 47.1 223.1 Component Latest Ref Rng AND Units 06/19/2013 09/19/2017 Retic % 0.4 - 2.0 % 2.2 (H) Abs Retic 0.0180 - 0.1000 M/uL 0.137 (H) LD 135 - 225 U/L 415 (H) Haptoglobin 31 - 238 mg/dL 158 ASSESSMENT AND PLAN: Mr. 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 Patient has been having difficulty swallowing solid food for the last 6 month. He initially presented to [place] ED on 09/13 with abdominal pain and nausea. CT of the abdomen didn't show any acute findings, but revealed a moderately enlarged spleen. An EGD revealed an obstruction at the proximal esophagus and foreign body was seen ( iron pill). Patient was subsequently transferred to [facility] for further care. He has been evaluated by Gastroenterology who feel that his esophageal stricture is likely secondary to radiation and that he will need serial dilations. Hematology consult is being requested for thrombocytosis. CBC at presentation on 09/18 revealed : WBC 36.45, Hgb 12.4, PLT 1.3 M, MCV 60.9. We only had handful of CBC savailavle that shows increasing platelet count since 2014: 432 K (2014)--->529 K ( 2016)-->752 K ( 2017). Also in 2012 and 2013 there was an elevated H/H in the 18's/54's range. Impression: Thrombocytosis at least since 2014, now worse with platelet count over Million. JAK2 mutation has been sent. Will send a CALR EXON mutation and MPL muation Plan: - NEHEMIAH 2 mutation pending - Will send a CALR EXON mutation and MPL mutation ( ordered) -Patient would like to follow up locally in [place] with Hem/Onc. I have contacted Dr. Aguillon's office in [place], the patient should get a call from 's Office within 2 business days with an appointment -Will follow Pt discussed with Dr. Andrea Ford, PANavinC Pager: [phone] Patient was off floor when I was rounding. Will see him in AM. Certainly concerning for myeloproliferative disorder. Sandeep Mendez MD Staff Hematology Pager [phone] Date of Service: 09/21/2017 Time of Service: 4:57 PM PROGRESS Observed: 09/21/2017 Status: COMPLETED Source: GWINN 8:02 AM [facility] REPOSITORY HNO ID: [id number] Author: Hernesto Sarkar Service: General Internal Medicine Author Type: Physician Type: Progress Notes Filed: 09/21/2017 8:54 AM Note Text: Catalino Olsen Progress Note For questions regarding this patient for today, [place] [phone]. 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 Today's Plan: - EGD today, may not need Corpak - soft diet after EGD (diet NPO until EGD) with potassium supplementationonce starting diet - continue zosyn - check Jak2 as WBC count and platelet count still elevated - vitamin D supplementation - vitamin K 10mg PO x3 doses - f/u blood culture, NGTD - heme c/s given trend of WBC and platelets - GI c/s, appreciate recs re: esophageal stricture - continue spiriva and breo-ellipta, duoneb and albuterol PRN Active Hospital Problems Diagnosis - Leukocytosis - on cipro/flagyl at OSH as well as zosyn started prior to transfer - sputum culture at OSH 09/16 positive for malik albicans (presumptive) - DDx includes infection vs malignancy - CRP 1.1, ESR nl, procalcitonin 0.20 (H), lactate nl - CBC with staff review: Microcytic hypochromic red cells without anemia. Leukoerythroblastic Changes. Absolute Monocytosis. Thrombocytosis - urine culture negative - vanc x2 days, no source found Plan: - f/u blood culture - zosyn - t/c ID c/s - Thrombocytosis (HCC) - 432k in 01/2015, progressively rising. 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 Plan: - EGD under general anesthesia (concern about patient tolerating procedure while awake) - okay for soft diet after SANDS eval (dysphagia level 3 with thin liquids) - GI c/s, appreciate recs - Shortness of breath - DDx includes COPD, aspiration, pulmonary edema, ?ILD - on nocturnal oxygen PRN at home - CXR on admission not significant for pulmonary edema though NT pro-BNP 3122 on admission (does not appear volume overloaded on exam). Troponin T negative - TTE 09/21: The left ventricle is normal in size. Left?ventricular systolic function is normal. EF = 59 ? 5% (2D 4-ch.) Strain not calculated due to poor image quality. The right ventricle is normal in size. Right ventricular systolic function is low normal. Thickened and calcified aortic valve. There is at least partial fusion of the non- and left coronary cusps. Unable to accurately calculated transaortic valve gradients. On 2-D imaging there is at least mild aortic stenosis. Trivial pericardial effusion next to right ventricle Plan: - COPD management as under COPD - Tachycardia - TSH elevated at 8.25 with normal free T4 - EKG on admission shows sinus tachycardia Plan: - f/u TTE - History of peptic ulcer - s/p partial gastrectomy 1971 Plan: - PPI (IV while NPO) - COPD (chronic obstructive pulmonary disease) (HCC) - productive cough improving, denies fevers/chills - does not appear to be COPD exacerbation on admission - at home on ventolin PRN and stiolto daily Plan: - start spiriva and breo-ellipta - duoneb and albuterol PRN - Subclinical hypothyroidism - Low serum alkaline phosphatase - Vitamin D deficiency - vitamin D level 6.2 08/2017 Plan: - 50,000 IU vitamin D weekly x2-3 months - Hypoalbuminemia - Prolonged INR - INR 2.2 on admission Plan: - vitamin K 10mg PO x3 doses - Dysphagia - Former tobacco use - S/P partial gastrectomy - Malignant neoplasm of larynx (HCC) - 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 April 2014, 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 GENERAL: alert, no distress, cooperative HEAD/SINUSES: No significant findings. EYES: PERRLA and EOMI NOSE: Nares normal. Septum midline NECK: supple LUNGS: Lungs clear to auscultation though with decreased breath sounds bilaterally, no wheezes, no crackles CARDIAC: normal S1 and S2; no rubs, murmurs, or gallops ABDOMEN: Abdomen soft, non-tender, no guarding/rebound. BS normal. EXTREMITIES: Extremities normal. No deformities, edema Laboratory Values CBC: Recent Labs 09/21/17 0424 09/20/17 0322 09/19/17 0118 09/18/17 2222 09/18/17 1940 WBC 27.88* 21.52* 30.59* 36.45* 45.29* HB 11.7* 11.4* 12.0* 12.4* 13.9 HCT 42.7 40.3 41.6 43.3 48.8 PLT 1,070* 954* 1,268* 1,355* 1,665* MCV 62.2* 60.7* 60.6* 60.9* 61.9* RDWCV 24.9* 24.0* 24.2* 24.5* 25.4* NEUTP -- -- -- -- 84.0 ABSNEUT -- -- -- -- 38.04* LYMPHP -- -- -- -- 3.0 MONOP -- -- -- -- 9.0 EODINP -- -- -- -- 1.0 COAG: Recent Labs 09/21/1742309/20/1732109/18/171937 APTT 35.1* -- 43.3* INR 1.1 1.4* 2.2* BMP: Recent Labs 09/21/1742309/20/1732109/19/1711709/18/171941 GLUC 81 80 105* 97 NA 139 139 138 143 K 3.5* 3.5* 4.4 4.9 CHLOR 103 104 103 104 CO2 26 23 20* 19* ANION 10 12 15 20* BUN 7* 10 15 15 CREAT 1.07 1.05 1.02 1.08 CHEM: Recent Labs 09/21/1742309/20/1732109/19/1711709/18/171941 ALB 2.7* 2.6* 2.6* 3.3* TPROT 5.1* 4.9* 5.1* 6.2* CA 8.2* 8.1* 8.4* 9.0 MG -- -- 2.0 2.2 HEPATIC: Recent Labs 09/21/1742309/20/1732109/19/1711709/18/171941 ALKPHOS 74 68 89 114* ALT 8* 7* 10 10 AST 12* 13* 18 17 TBILI 0.4 0.3 0.3 0.4 URINALYSIS: Recent Labs 09/18/172052 SPGR 1.023 UGLUC Negative UBILI Negative UKET 1+* UHB Negative UPROT Negative UWBC 0-5 CARDIAC: Recent Labs 09/19/1711909/18/171941 TROPT <0.010 <0.010 PBNP -- 3,122* Diagnostic tests reviewed for today's visit: Most recent labs Most recent imaging Created by: Teressa Alarcon MD PGY-1 Internal Medicine Resident [facility] Pager: [phone] [facility] STAFF PHYSICIAN NOTE OF PERSONAL INVOLVEMENT IN CARE Chart reviewed, patient examined, and perry elements of progress note of the patient confirmed and agree with the documented findings and plan of care. Hernesto Sarkar MD FAAP FACP [facility] Internal Medicine-Pediatrics [facility] Medicine/IMPACT Pager: VAURONM Date of Service: September 21, 2017 Time of Service: 8:54 AM PROTIME Collected: 09/21/2017 Status: F Source: [place] 4:24 AM [facility] REPOSITORY TYPE CODE TESTS RESULT OUT OF RANGE REFERENCE UNITS LAB PSEC 9.7-13.0 sec PT Sec 11.7 LAB INR 0.9-1.3 PT INR 1.1 Result Comment: Vitamin K Antagonist (VKA) Therapeutic Range: INR 2 to 3 (Target INR of 2.5) Note: For patients treated with VKA drugs, such as warfarin, the [place] [employer] 2012 Guideline recommends a therapeutic INR range of 2 to 3 (target INR of 2.5). This recommendation includes high-risk patients with antiphospholipid syndrome with previous arterial or venous thromboembolism, current-generation mechanical or bioprosthetic aortic heart valve replacement. Note: Patients with mechanical aortic valve replacement and additional risk factors for thromboembolic events (atrial fibrillation, previous thromboembolism, LV dysfunction, hypercoagulable conditions) or an older generation mechanical AVR (i.e., ball in-Cage) or any mechanical MVR should have a INR therapeutic range of 2.5 to 3.5 (target INR of 3). Belkys GH, et al. Chest 2012, 141:7S-47S Caridad RA, et al. JACC 2017, 70: 252-289 Performed By: #### PT, PTT, CMP, PHOS, CBCDIF #### [facility] [address] [place], [place] [address] APTT Collected: 09/21/2017 Status: F Source: GWINN 4:24 AM [facility] REPOSITORY TYPE CODE TESTS RESULT OUT OF RANGE REFERENCE UNITS LAB APTT 23.0-32.4 sec High APTT 35.1 Result Comment: Unfractionated Heparin Therapeutic Ranges: Standard Heparin Nomogram: 53 to 78 seconds (anti-Xa level of 0.3 to 0.7 U/ml) Low Dose/ACS Nomogram: 49 to 67 seconds (anti-Xa level of 0.2 to 0.5 U/ml) Stroke Treatment Nomogram: 49 to 67 seconds (anti-Xa level of 0.2 to 0.5 U/ml) Note: The APTT therapeutic range has been determined for the current lot of laboratory APTT reagent in use throughout the [facility]. Performed By: #### PT, PTT, CMP, PHOS, CBCDIF #### [facility] [address] [place], [place] [address] COMP METABOLIC PANEL Collected: 09/21/2017 Status: F Source: GWINN 4:24 AM [facility] [place] REPOSITORY TYPE CODE TESTS RESULT OUT OF REFERENCE UNITS RANGE LAB TP 6.3-8.0 g/dL Low Protein, Total 5.1 LAB ALB 3.9-4.9 g/dL Low Albumin 2.7 LAB CA 8.5-10.2 mg/dL Low Calcium, Total 8.2 LAB TBIL 0.2-1.3 mg/dL Bilirubin, Total 0.4 LAB ALKP 36-108 U/L Alkaline Phosphatase 74 LAB AST 14-40 U/L Low AST 12 LAB GLU 74-99 mg/dL Glucose 81 Result Comment: The [place] [employer] (ADA) provides guidance for cutoff values for fasting glucose and random glucose. The ADA defines fasting as no caloric intake for at least 8 hours. Fas ting plasma glucose results between 100 to 125 mg/dL indicate increased risk for diabetes (prediabetes). Fasting plasma glucose results greater than or equal to 126 mg/dL meet the criteria for diagnosis of diabetes. In the absence of unequivocal hyperglycemia, results should be confirmed by repeat testing. In a patient with classic symptoms of hyperglycemia or hyperglycemic crisis, random plasma glucose results greater than or equal to 200 mg/dL meet the criteria for diagnosis of diabetes. Reference: Standards of Medical Care in Diabetes 2016, [place] [employer]. Diabetes Care. 2016.39(Suppl 1). LAB BUN 9-24 mg/dL BUN Low 7 LAB CRET 0.73-1.22 mg/dL Creatinine 1.07 LAB NA 136-144 mmol/L Sodium 139 LAB K 3.7-5.1 mmol/L Potassium Low 3.5 LAB CL 97-105 mmol/L Chloride 103 LAB CO2 22-30 mmol/L CO2 26 LAB AGAP 9-18 mmol/L Anion Gap 10 LAB ALT 10-54 U/L ALT Low 8 LAB GFRAA eGFR- Amer. >60 LAB GFRNAA . eGFR-All Other Races >60 Result Comment: eGFR (Estimated GFR) Units of measure: mL/min/1.73 meters squared eGFR is derived from the reexpressed MDRD Study equation using the following parameters: serum creatinine, age, gender and race. The creatinine assay has been calibrated to be traceable to IDMS. An eGFR <60 mL/min/1.73m2 for >3 months is consistent with chronic kidney disease. Refer to KDOQI guidelines for clinical interpretation. In patients with unstable renal function, e.g. those with acute kidney injury, the eGFR may not accurately reflect actual GFR. Performed By: #### PT, PTT, CMP, PHOS, CBCDIF #### [facility] [address], [place] [address] PHOSPHORUS Collected: 09/21/2017 Status: F Source: GWINN 4:24 AM [facility] REPOSITORY TYPE CODE TESTS RESULT OUT OF REFERENCE UNITS RANGE LAB PHOS 2.7-4.8 mg/dL Phosphorus 2.7 Performed By: #### PT, PTT, CMP, PHOS, CBCDIF #### [facility]enza Schouer [address] [place], [place] [address] CBC AND DIFFERENTIAL Collected: 09/21/2017 Status: F Source: GWINN 4:24 AM [facility] REPOSITORY TYPE CODE TESTS RESULT OUT OF REFERENCE UNITS RANGE LAB WBC 3.70-11.00 k/uL WBC High 27.88 LAB RBC 4.20-6.00 m/uL RBC High 6.87 LAB HGB 13.0-17.0 g/dL Low Hemoglobin 11.7 LAB HCT 39.0-51.0 % Hematocrit 42.7 LAB MCV 80.0-100.0 fL Low MCV 62.2 LAB MCH 26.0-34.0 pG Low MCH 17.0 LAB MCHC 30.5-36.0 g/dL Low MCHC 27.4 LAB RDWCV 11.5-15.0 % RDW-CV High 24.9 LAB PLTCT 150-400 k/uL Platelet High Count 1070 Result Comment: No clot detected. LAB MPV 9.0-12.7 fL MPV 9.2 LAB ANEUT % Neut% 88.7 LAB AANEUT 1.45-7.50 k/uL Abs Neut 24.73 High LAB ALYMP % Lymph% 2.6 LAB AALYMP 1.00-4.00 k/uL Abs Lymph 0.72 Low LAB AMONO % Preston% 4.3 LAB AAMONO <0.87 k/uL Abs Preston 1.20 High LAB AEOS % Eosin% 3.5 LAB AAEOS <0.46 k/uL Abs Eosin 0.98 High LAB ABASO % Baso% 0.9 LAB AABASO <0.11 k/uL Abs Baso 0.25 High LAB ANIIMI Anisocytosis Present LAB OVAIMI Ovalocytes Moderate LAB POLIMI Polychromasia Slight LAB RCFIMI RBC Fragments Few LAB PLTEST Platelet Estimate Platelet estimate increased LAB DTYP DTYPE Manual Diff Performed By: #### PT, PTT, CMP, PHOS, CBCDIF #### [facility] [address] [place] [address] CASE MANAGEM Observed: 09/20/2017 Status: COMPLETED Source: GWINN 1:38 PM [facility] [place] REPOSITORY HNO ID: [id number] Author: Iva Barrera RN Service: Case Management Author Type: Registered Nurse Type: Care Mgt Progress Note Filed: 09/20/2017 1:42 PM Note Text: CARE MANAGEMENT PROGRESS NOTE SERVICE DATE: 09/20/2017 SERVICE TIME: 1338 LOS: 2 days Needs Prior to Discharge: To Be Determined Patient discharge date TBD home via daughter transportation. Patient not medically clear for discharge needs EGD on IV fluids and IV antibiotics. Possible weekend discharge no skilled needs at this time will need to reassess. Awaiting further recommendations. Please contact case management for any changes in skilled needs. Thank you SIGNATURE: Iva Barrera RN PATIENT NAME: Sabina Flores DATE: September 20, 2017 TIME: 1:38 PM PAGER/CONTACT #: [phone] THERAPY NT Observed: 09/20/2017 Status: COMPLETED Source: GWINN 12:36 PM [facility] REPOSITORY HNO ID: [id number] Author: Kaley (Dispatch Manager) RUY Brock/ONLINE ACTIVIST Service: Speech/Swallow Author Type: Speech Language Pathologist Type: Therapy (PT/OT/Speech/Resp) Filed: 09/20/2017 12:54 PM Note Text: [facility] Speech Pathology Consult Modified Barium Swallow 09/20/2017 IMPRESSIONS: Initially patient referred for bedside swallowing evaluation but given history and also orders for esophagram, a modified barium swallow was recommended for reliable assessment along with esophagram study. MD orders were received. Patient demonstrated functional oral skills although slower mastication without dentures in place. Mild pharyngeal dysphagia with residue in vallecular sinuses, trace coating of pyriform sinuses and intermittent trace laryngeal penetration during due to decreased airway closure and after from spillover. Chin tuck posture appeared to improve airway closure and reduce risk for laryngeal penetration during swallows. No aspiration seen during this study. Deviation of contrast around cervical spur at C5-6 but not considered clinically significant. After MBS ruled out aspiration, an esophagram was completed with GI Radiology with following results: SHORT SEGMENT BENIGN-APPEARING NARROWING IN THE PROXIMAL ESOPHAGUS (JUST CAUDAD TO THE CERVICOTHORACIC JUNCTION). MILD VOLUME GASTROESOPHAGEAL REFLUX. MINIMAL ESOPHAGEAL DYSMOTILITY. Please refer to GI Radiology report for details. PROGNOSIS: Favorable with controls. RECOMMENDATIONS: 1. Consider starting a Dysphagia Level 3 diet with thin liquids using controls. If tolerating solids, then may progress to regular as tolerated. 2. Controls: *place dentures for meals *sit upright *opt for moister/softer foods *single drinks with chin tuck posture *controlled bites of foods with effortful swallow and liquid wash to clear vallecular space PLAN: Please page with questions or concerns. 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 Esophageal web requiring esophageal dilation in 2003. Patient admitted 09-18-17 from OSH after EGD 09-14-17 showed obstruction at the proximal esophagus with lodging of pill. Orders receive for bedside swallowing evaluation along with an esophagram to rule out stricture. Given patient's history, and that residue and aspiration can not be reliably ruled out at the bedside, Primary Service called and MBS orders requested and received. 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 - Former tobacco use 09/18/2017 - History of laryngeal cancer 10/27/2014 - Interstitial lung disease (HCC) 02/09/2011 Ct chest 01/2011 - Iron deficiency anemias 01/11/2005 - Low serum alkaline phosphatase 09/20/2017 - Malignant neoplasm of larynx (HCC) 05/31/2017 - PEPTIC ULCER NOS 01/11/2005 - PERS HX OF ALCOHOLISM 01/11/2005 - Polycythemia 05/21/2013 - S/P partial gastrectomy 09/18/2017 - Severe protein-calorie malnutrition (HCC) 11/20/2016 - Shortness of breath 09/18/2017 - Squamous cell carcinoma of larynx (HCC) 02/08/2017 - Subclinical hypothyroidism 09/20/2017 - Tobacco use disorder 01/11/2005 - Unspecified asthma(493.90) 03/03/2011 PAST SURGICAL HISTORY Procedure Laterality Date - COLONOSCOP W/ OR W/O BRSH SPEC 2003 Colonoscopy - COLONOSCOP W/ OR W/O BRSH SPEC 02/20/2013 Colonoscopy - COLONOSCOP W/ OR W/O BRSH SPEC 03/30/16 Colonoscopy - EGD W/O OR W/BRUSH/WASH 2003 EGD - EGD W/O OR W/BRUSH/WASH 02/20/13 EGD - ESOPH W/O BRSH SPEC BALLOON DIL 03-30-2004 Esophageal dilatation - LARYNGOSCOPY W/ BIOPSY 02/06/2014 - PARTIAL GASTRECTOMY 1970 - PAST SURGICAL HISTORY OF Left 08/29/2016 Floor of mouth resection, sialadochoplasty DATE OF ADMISSION: 09/18/2017 HEARING STATUS: WFL for 1:1 BEHAVIORIAL OBSERVATIONS: Alert, Cooperative PRESENT FEEDING METHOD: NPO Diet Level: NPO Dentition: Edentulous Tracheostomy: No O2: Room Air ORAL MECHANISM EVALUATION Facial Symmetry at Rest: Within Functional Limits MANAGEMENT OF SECRETIONS: Within Normal Limits LABIAL Pursing: Within Functional Limits Retraction: Within Functional Limits Strength: Did not test Agility: Within Functional Limits VELAR Elevation / AH: Within Functional Limits Gag Reflex: Did not test LARYNGEAL Wet Vocal Quality: No Volitional Cough: Within Functional Limits Volitional Throat Clear: Did not test LINGUAL Protrusion: Within Functional Limits Retraction: Did not test Lateralization: Within Functional Limits Elevate / Depress: Did not test Strength: Did not test Agility: Within Functional Limits SPEECH PRODUCTION Articulation: Within Functional Limits Intelligibility: Within Functional Limits Vocal Quality: Within Functional Limits Vocal Intensity: Within Functional Limits Rate / Prosody: Within Functional Limits COMMENTS: Oral skills adequate to support speech and oral phase of deglutition. Patient did not have dentures in place for study. ORAL TRIALS POSITION OF PATIENT: Seated in wheelchair VIEW: Lateral, A-P CONSISTENCIES GIVEN: Chan cracker coated with pudding / Barium mixture Pudding mixed with Barium Thin Barium liquid LIQUIDS GIVEN VIA: Regular drinking straw and Cup ORAL PHASE: Even without dentures, the patient was able to functionally masticate solid textures. Bolus manipulation and transit were considered functional. PHARYNGEAL PHASE: Prompt swallow. Poor deflection of epiglottis resulted in residue in valleculae. Trace coating of pyriform sinuses. Intermittently decreased airway closure resulting in trace laryngeal penetration with thin liquids during swallows. Trace laryngeal penetration intermittently after swallows from spillover. No aspiration seen. Cervical spur noted at C5-6 resulting in deviation of bolus but not clinically significant. A-P VIEW: Bilateral residue in valleculae. COMMENTS: Study continued with Esophagram. Please refer to GI Radiology report for details. Results and Recommendations discussed with: patient Speech-Language Pathologist: Kaley Brock MS [facility])-ONLINE ACTIVIST Pager: [phone] XR ESOPHAGRAM Observed: 09/20/2017 Status: F Source: GWINN 10:53 AM [facility] [place] REPOSITORY * * *Final Report* * * DATE OF EXAM: Sep 20 2017 10:53AM HGX [id number] - XR ESOPHAGRAM / PROCEDURE REASON: Dysphagia, oropharyngeal, has attributable cause * * * * Physician Interpretation * * * * EXAMINATION: Modified barium swallow with Speech Therapy. CLINICAL INFORMATION: Dysphagia RESULT: Fluoroscopy was provided for an oropharyngeal examination performed by Speech Therapy. The results will be reported by the Speech Therapist in [facility]. Contrast: ORAL: 300 (accession [id number]), 20 (accession [id number]) ml of EZPAQUE (accession [id number]), VARIBAR THIN (accession [id number]) ORAL: 10 ml of EZPASTE Fluoroscopy radiation summary: Fluoroscopy time: 3:42 (accession [id number]), 2:06 (accession [id number]) (min:sec). Air kerma: 41.1 mGy (accession [id number]), 12.6 mGy (accession [id number]). IMPRESSION: Oropharyngeal evaluation performed by Speech Therapy ESOPHAGRAM. CLINICAL INFORMATION: Dysphagia. 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 for dysphagia due to proximal esophageal stricture and dyspnea following EGD on 09/14/2017. TECHNIQUE: A single-contrast examination of the esophagus was performed utilizing low density barium. Contrast: ORAL: 300 (accession [id number]), 20 (accession [id number]) ml of EZPAQUE (accession [id number]), VARIBAR THIN (accession [id number]) Fluoroscopy radiation summary: Fluoroscopy time: 3:42 (accession [id number]), 2:06 (accession [id number]) (min:sec). Air kerma: 41.1 mGy (accession [id number]), 12.6 mGy (accession [id number]). RESULT: Caliber: Short smooth segment of narrowing in the proximal esophagus just caudad to the cervicothoracic junction. Remainder of esophagus is otherwise normal caliber. Distal Stricture/Ring: Absent Motility: Trace retrograde escape. Esophageal motility is otherwise normal. Hiatal Hernia: Absent Reflux: Mild volume gastroesophageal reflux, up to the level just inferior of the anurag, elicited with Valsalva maneuver. Gastric Cardia: Unremarkable Barium Tablet/Other Findings: Patient declined the 13 mm barium tablet. IMPRESSION: SHORT SEGMENT BENIGN-APPEARING NARROWING IN THE PROXIMAL ESOPHAGUS (JUST CAUDAD TO THE CERVICOTHORACIC JUNCTION). MILD VOLUME GASTROESOPHAGEAL REFLUX. MINIMAL ESOPHAGEAL DYSMOTILITY. Lining Scrubber: OTIS Transcribe Date/Time: Sep 20 2017 11:01A Dictated by : VIKAS FELIZ DO This examination was interpreted and the report reviewed and electronically signed by: HUGO VOGT MD on Sep 20 2017 11:15AM EST [id number] XR MOD BARIUM Observed: 09/20/2017 Status: F Source: GUTIERREZ SWALLOW W SPEECH 10:31 AM [facility] REPOSITORY * * *Final Report* * * DATE OF EXAM: Sep 20 2017 10:31AM HGX [id number] - XR MOD BARIUM SWALLOW W SPEECH / PROCEDURE REASON: Dysphagia, oropharyngeal, has attributable cause * * * * Physician Interpretation * * * * EXAMINATION: Modified barium swallow with Speech Therapy. CLINICAL INFORMATION: Dysphagia RESULT: Fluoroscopy was provided for an oropharyngeal examination performed by Speech Therapy. The results will be reported by the Speech Therapist in Epic. Contrast: ORAL: 300 (accession [id number]), 20 (accession [id number]) ml of EZPAQUE (accession [id number]), VARIBAR THIN (accession [id number]) ORAL: 10 ml of EZPASTE Fluoroscopy radiation summary: Fluoroscopy time: 3:42 (accession [id number]), 2:06 (accession [id number]) (min:sec). Air kerma: 41.1 mGy (accession [id number]), 12.6 mGy (accession [id number]). IMPRESSION: Oropharyngeal evaluation performed by Speech Therapy ESOPHAGRAM. CLINICAL INFORMATION: Dysphagia. 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 for dysphagia due to proximal esophageal stricture and dyspnea following EGD on 09/14/2017. TECHNIQUE: A single-contrast examination of the esophagus was performed utilizing low density barium. Contrast: ORAL: 300 (accession [id number]), 20 (accession [id number]) ml of EZPAQUE (accession [id number]), VARIBAR THIN (accession [id number]) Fluoroscopy radiation summary: Fluoroscopy time: 3:42 (accession [id number]), 2:06 (accession [id number]) (min:sec). Air kerma: 41.1 mGy (accession [id number]), 12.6 mGy (accession [id number]). RESULT: Caliber: Short smooth segment of narrowing in the proximal esophagus just caudad to the cervicothoracic junction. Remainder of esophagus is otherwise normal caliber. Distal Stricture/Ring: Absent Motility: Trace retrograde escape. Esophageal motility is otherwise normal. Hiatal Hernia: Absent Reflux: Mild volume gastroesophageal reflux, up to the level just inferior of the anurag, elicited with Valsalva maneuver. Gastric Cardia: Unremarkable Barium Tablet/Other Findings: Patient declined the 13 mm barium tablet. IMPRESSION: SHORT SEGMENT BENIGN-APPEARING NARROWING IN THE PROXIMAL ESOPHAGUS (JUST CAUDAD TO THE CERVICOTHORACIC JUNCTION). MILD VOLUME GASTROESOPHAGEAL REFLUX. MINIMAL ESOPHAGEAL DYSMOTILITY. Lining Scrubber: OTIS Transcribe Date/Time: Sep 20 2017 11:01A Dictated by : VIKAS FELIZ DO This examination was interpreted and the report reviewed and electronically signed by: HUGO VOGT MD on Sep 20 2017 11:15AM EST [id number] NURSING PROG Observed: 09/20/2017 Status: COMPLETED Source: GWINN 10:17 AM [facility] REPOSITORY HNO ID: [id number] Author: Zarina (Rn) TL Lion Service: (none) Author Type: Registered Nurse Type: Nursing Progress Note Filed: 09/20/2017 11:01 AM Note Text: Nursing Progress Note Patient Name: Sabina Flores Patient Location: [place] [address]- Daily Note: 0940 - pt off unit to barium swallow via wheelchair, in stable condition. 1100 - pt returned to unit via wheelchair, in stable condition. This note was completed by: Zarina Lion RN CONSULT PROG Observed: 09/20/2017 Status: COMPLETED Source: GWINN 8:53 AM [facility] REPOSITORY HNO ID: [id number] Author: Jayjay Tracey (Pharmacist) Service: Pharmacy Author Type: Pharmacist Type: Consult Progress Note Filed: 09/20/2017 8:54 AM Note Text: PHARMACY VANCOMYCIN DOSING NOTE Patient Name: Sabina Flores Admission Date: 09/18/2017 Date of Consult: 09/20/2017 Time of Consult: 8:53 AM Indication: Bloodstream infection Goal Range: 10-20 mcg/mL RECOMMENDATIONS/PLAN: Pharmacy consulted for vancomycin dosing for Sabina Flores, a 77 year old, male who is being treated with vancomycin for bloodstream infection 1. The primary service has discontinued vancomycin therapy. Pharmacy vancomycin dosing service will sign off. Thank you for allowing us to participate in this patient's care. Please contact pharmacy if questions. JAYJAY TRACEY, PHARMACIST PROGRESS Observed: 09/20/2017 Status: COMPLETED Source: GWINN 8:39 AM [facility] REPOSITORY HNO ID: [id number] Author: Hernesto Sarkar Service: General Internal Medicine Author Type: Physician Type: Progress Notes Filed: 09/20/2017 11:51 AM Note Text: Catalino Olsen Progress Note For questions regarding this patient for today, [place] [phone]. 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 Today's Plan: - S AND S eval - XR esophagram - per discussion w/GI, if he passes swallow eval he is okay for a soft diet - EGD with corpak placement, scheduled for tomorrow - continue zosyn, stop vanc today as no source identified - f/u zinc, methylmalonic acid - vitamin D supplementation - vitamin K 10mg PO x3 doses - f/u blood culture, NGTD - t/c heme c/s depending on trend of WBC and platelets - GI c/s, appreciate recs re: esophageal stricture - f/u TTE - continue spiriva and breo-ellipta, duoneb and albuterol PRN Active Hospital Problems Diagnosis - Leukocytosis - on cipro/flagyl at OSH as well as zosyn started prior to transfer - sputum culture at OSH 09/16 positive for malik albicans (presumptive) - DDx includes infection vs malignancy - CRP 1.1, ESR nl, procalcitonin 0.20 (H), lactate nl - CBC with staff review: Microcytic hypochromic red cells without anemia. Leukoerythroblastic Changes. Absolute Monocytosis. Thrombocytosis - urine culture negative - vanc x2 days, no source found Plan: - f/u blood culture - zosyn - t/c ID c/s - Thrombocytosis (HCC) - 432k in 01/2015, progressively rising. 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 Plan: - EGD w/corpak placement under general anesthesia (concern about patient tolerating procedure while awake) - NPO with IVF pending speech and swallow eval - GI c/s, appreciate recs - Shortness of breath - DDx includes COPD, aspiration, pulmonary edema, ?ILD - on nocturnal oxygen PRN at home - CXR on admission not significant for pulmonary edema though NT pro-BNP 3122 on admission (does not appear volume overloaded on exam). Troponin T negative Plan: - f/u TTE - COPD management as under COPD - Tachycardia - TSH elevated at 8.25 with normal free T4 - EKG on admission shows sinus tachycardia Plan: - f/u TTE - History of peptic ulcer - s/p partial gastrectomy 1971 Plan: - PPI (IV while NPO) - COPD (chronic obstructive pulmonary disease) (HCC) - productive cough improving, denies fevers/chills - does not appear to be COPD exacerbation on admission - at home on ventolin PRN and stiolto daily Plan: - start spiriva and breo-ellipta - duoneb and albuterol PRN - Subclinical hypothyroidism - Low serum alkaline phosphatase - Vitamin D deficiency - vitamin D level 6.2 08/2017 Plan: - 50,000 IU vitamin D weekly x2-3 months - Hypoalbuminemia - Prolonged INR - INR 2.2 on admission Plan: - vitamin K 10mg PO x3 doses - Dysphagia - Former tobacco use - S/P partial gastrectomy - Malignant neoplasm of larynx (HCC) - 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 GENERAL: alert, no distress, cooperative HEAD/SINUSES: No significant findings. EYES: PERRLA and EOMI NOSE: Nares normal. Septum midline NECK: supple LUNGS: Lungs clear to auscultation though with decreased breath sounds bilaterally, no wheezes, no crackles CARDIAC: normal S1 and S2; no rubs, murmurs, or gallops ABDOMEN: Abdomen soft, non-tender, no guarding/rebound. BS normal. EXTREMITIES: Extremities normal. No deformities, edema Laboratory Values CBC: Recent Labs 09/20/17 0322 09/19/17 0118 09/18/17 2222 09/18/17 1940 WBC 21.52* 30.59* 36.45* 45.29* HB 11.4* 12.0* 12.4* 13.9 HCT 40.3 41.6 43.3 48.8 PLT 954* 1,268* 1,355* 1,665* MCV 60.7* 60.6* 60.9* 61.9* RDWCV 24.0* 24.2* 24.5* 25.4* NEUTP -- -- -- 84.0 ABSNEUT -- -- -- 38.04* LYMPHP -- -- -- 3.0 MONOP -- -- -- 9.0 EODINP -- -- -- 1.0 COAG: Recent Labs 09/20/172 09/18/171937 APTT -- 43.3* INR 1.4* 2.2* BMP: Recent Labs 09/20/1732109/19/178 09/18/171941 GLUC 80 105* 97 NA 139 138 143 K 3.5* 4.4 4.9 CHLOR 104 103 104 CO2 23 20* 19* ANION 12 15 20* BUN 10 15 15 CREAT 1.05 1.02 1.08 CHEM: Recent Labs 09/20/1732109/19/17 0118 09/18/171941 ALB 2.6* 2.6* 3.3* TPROT 4.9* 5.1* 6.2* CA 8.1* 8.4* 9.0 MG -- 2.0 2.2 HEPATIC: Recent Labs 09/20/1732109/19/17 0118 09/18/171941 ALKPHOS 68 89 114* ALT 7* 10 10 AST 13* 18 17 TBILI 0.3 0.3 0.4 URINALYSIS: Recent Labs 09/18/172052 SPGR 1.023 UGLUC Negative UBILI Negative UKET 1+* UHB Negative UPROT Negative UWBC 0-5 CARDIAC: Recent Labs 09/19/17 0120 09/18/171941 TROPT <0.010 <0.010 PBNP -- 3,122* Diagnostic tests reviewed for today's visit: Most recent labs Most recent imaging Created by: Teressa Alarcon MD PGY-1 Internal Medicine Resident [facility] Pager: [phone] [facility] STAFF PHYSICIAN NOTE OF PERSONAL INVOLVEMENT IN CARE Chart reviewed, patient examined, and perry elements of progress note of the patient confirmed and agree with the documented findings and plan of care. Hernesto Sarkar MD FAAP FACP [facility] Internal Medicine-Pediatrics [facility] Medicine/IMPACT Pager: [phone] Date of Service: September 20, 2017 Time of Service: 11:50 AM PROTIME Collected: 09/20/2017 Status: F Source: GWINN 3:22 AM [facility] REPOSITORY TYPE CODE TESTS RESULT OUT OF RANGE REFERENCE UNITS LAB PSEC 9.7-13.0 sec High PT Sec 14.6 LAB INR 0.9-1.3 High PT INR 1.4 Result Comment: Vitamin K Antagonist (VKA) Therapeutic Range: INR 2 to 3 (Target INR of 2.5) Note: For patients treated with VKA drugs, such as warfarin, the [place] [employer] 2012 Guideline recommends a therapeutic INR range of 2 to 3 (target INR of 2.5). This recommendation includes high-risk patients with antiphospholipid syndrome with previous arterial or venous thromboembolism, current-generation mechanical or bioprosthetic aortic heart valve replacement. Note: Patients with mechanical aortic valve replacement and additional risk factors for thromboembolic events (atrial fibrillation, previous thromboembolism, LV dysfunction, hypercoagulable conditions) or an older generation mechanical AVR (i.e., ball in-Cage) or any mechanical MVR should have a INR therapeutic range of 2.5 to 3.5 (target INR of 3). Belkys KELLER, et al. Chest 2012, 141:7S-47S Caridad RA, et al. [facility] 2017, 70: 252-289 Performed By: #### PT, CMP, PHOS, B12, SERFOL, ZINC, MMA, CBCDIF #### [facility] [address], [place] [address] COMP METABOLIC PANEL Collected: 09/20/2017 Status: F Source: GWINN 3:22 AM [facility] REPOSITORY TYPE CODE TESTS RESULT OUT OF REFERENCE UNITS RANGE LAB TP 6.3-8.0 g/dL Low Protein, Total 4.9 LAB ALB 3.9-4.9 g/dL Low Albumin 2.6 LAB CA 8.5-10.2 mg/dL Low Calcium, Total 8.1 LAB TBIL 0.2-1.3 mg/dL Bilirubin, Total 0.3 LAB ALKP 36-108 U/L Alkaline Phosphatase 68 LAB AST 14-40 U/L Low AST 13 LAB GLU 74-99 mg/dL Glucose 80 Result Comment: The [place] [employer] Association (ADA) provides guidance for cutoff values for fasting glucose and random glucose. The ADA defines fasting as no caloric intake for at least 8 hours. Fas ting plasma glucose results between 100 to 125 mg/dL indicate increased risk for diabetes (prediabetes). Fasting plasma glucose results greater than or equal to 126 mg/dL meet the criteria for diagnosis of diabetes. In the absence of unequivocal hyperglycemia, results should be confirmed by repeat testing. In a patient with classic symptoms of hyperglycemia or hyperglycemic crisis, random plasma glucose results greater than or equal to 200 mg/dL meet the criteria for diagnosis of diabetes. Reference: Standards of Medical Care in Diabetes 2016, [place] [employer]. Diabetes Care. 2016.39(Suppl 1). LAB BUN 9-24 mg/dL BUN 10 LAB CRET 0.73-1.22 mg/dL Creatinine 1.05 LAB NA 136-144 mmol/L Sodium 139 LAB K 3.7-5.1 mmol/L Potassium Low 3.5 LAB CL 97-105 mmol/L Chloride 104 LAB CO2 22-30 mmol/L CO2 23 LAB AGAP 9-18 mmol/L Anion Gap 12 LAB ALT 10-54 U/L ALT Low 7 LAB GFRAA eGFR- Amer. >60 LAB GFRNAA . eGFR-All Other Races >60 Result Comment: eGFR (Estimated GFR) Units of measure: mL/min/1.73 meters squared eGFR is derived from the reexpressed MDRD Study equation using the following parameters: serum creatinine, age, gender and race. The creatinine assay has been calibrated to be traceable to IDMS. An eGFR <60 mL/min/1.73m2 for >3 months is consistent with chronic kidney disease. Refer to KDOQI guidelines for clinical interpretation. In patients with unstable renal function, e.g. those with acute kidney injury, the eGFR may not accurately reflect actual GFR. Performed By: #### PT, CMP, PHOS, B12, SERFOL, ZINC, MMA, CBCDIF #### [facility] [address] [place], [place] [address] PHOSPHORUS Collected: 09/20/2017 Status: F Source: GWINN 3:22 [facility] REPOSITORY TYPE CODE TESTS RESULT OUT OF REFERENCE UNITS RANGE LAB PHOS 2.7-4.8 mg/dL Low Phosphorus 2.1 Performed By: #### PT, CMP, PHOS, B12, SERFOL, ZINC, MMA, CBCDIF #### [facility] [address] [place] [address] VITAMIN B12 Collected: 09/20/2017 Status: F Source: GWINN 3:22 [facility] REPOSITORY TYPE CODE TESTS RESULT OUT OF REFERENCE UNITS RANGE LAB B12 232-1245 pg/mL Vitamin B12 365 Performed By: #### PT, CMP, PHOS, B12, SERFOL, ZINC, MMA, CBCDIF #### [facility] [address] [place] [address] FOLATE, SERUM Collected: 09/20/2017 Status: F Source: GWINN 3:22 [facility] REPOSITORY TYPE CODE TESTS RESULT OUT OF REFERENCE UNITS RANGE LAB SERFOL >4.7 ng/mL Folate, 6.8 Serum Performed By: #### PT, CMP, PHOS, B12, SERFOL, ZINC, MMA, CBCDIF #### [facility] [address] [place] [address] ZINC Collected: 09/20/2017 Status: F Source: GWINN 3:22 [facility] REPOSITORY TYPE CODE TESTS RESULT OUT OF RANGE REFERENCE UNITS LAB ZINC 55-150 ug/dL Low Zinc 53 Result Comment: This test was developed and its performance characteristics determined by [facility]'s [facility] [place] (-[facility]). It has not been cleared or approved by the FDA. -[facility] is regulated under CLIA as qualified to perform high-complexity testing. This test is used for clinical purposes. It should not be regarded as investigational or for research. Performed By: #### PT, CMP, PHOS, B12, SERFOL, ZINC, MMA, CBCDIF #### [facility] [address] [place] [id number] METHYLMALONIC ACID Collected: 09/20/2017 Status: F Source: GWINN 3:22 [facility] REPOSITORY TYPE CODE TESTS RESULT OUT OF REFERENCE UNITS RANGE LAB MMA 79-376 nmol/L Methylmalonic Acid 219 Result Comment: This test was developed and its performance characteristics determined by [facility]'s [facility] [place] ([facility]). It has not been cleared or approved by the FDA. -[facility] is regulated under CLIA as qualified to perform high-complexity testing. This test is used for clinical purposes. It should not be regarded as investigational or for research. Performed By: #### PT, CMP, PHOS, B12, SERFOL, ZINC, MMA, CBCDIF #### [facility] [address] [place] [address] CBC AND DIFFERENTIAL Collected: 09/20/2017 Status: F Source: GWINN 3:22 [facility] REPOSITORY TYPE CODE TESTS RESULT OUT OF REFERENCE UNITS RANGE LAB WBC 3.70-11.00 k/uL WBC High 21.52 LAB RBC 4.20-6.00 m/uL RBC High 6.64 LAB HGB 13.0-17.0 g/dL Hemoglobin Low 11.4 LAB HCT 39.0-51.0 % Hematocrit 40.3 LAB MCV 80.0-100.0 fL MCV Low 60.7 LAB MCH 26.0-34.0 pG MCH Low 17.2 LAB MCHC 30.5-36.0 g/dL MCHC Low 28.3 LAB RDWCV 11.5-15.0 % RDW-CV High 24.0 LAB PLTCT 150-400 k/uL Platelet Count High 954 LAB MPV 9.0-12.7 fL MPV 9.1 LAB ANEUT % Neut% 85.0 LAB AANEUT 1.45-7.50 k/uL Abs Neut High 18.29 LAB ALYMP % Lymph% 1.8 LAB AALYMP 1.00-4.00 k/uL Abs Lymph Low 0.39 LAB AMONO % Preston% 3.5 LAB AAMONO <0.87 k/uL Abs Preston 0.75 LAB AEOS % Eosin% 7.0 LAB AAEOS <0.46 k/uL Abs Eosin High 1.51 LAB ABASO % Baso% 1.8 LAB AABASO <0.11 k/uL Abs Baso High 0.39 LAB NRBC 0 /100 WBC NRBCs 1 High LAB AMETA % Spring% 0.9 LAB ANIIMI Anisocytosis Present LAB LFTIMI Left Shift Present LAB OVAIMI Ovalocytes Few LAB POLIMI Polychromasia Slight LAB RCFIMI RBC Fragments Few LAB PLTEST Platelet Estimate Platelet estimate increased LAB DTYP DTYPE Manual Diff Performed By: #### PT, CMP, PHOS, B12, SERFOL, ZINC, MMA, CBCDIF #### [facility] [address] [place], [place] [address] THERAPY NT Observed: 09/19/2017 Status: COMPLETED Source: GWINN 3:33 PM [facility] [place] REPOSITORY HNO ID: [id number] Author: Aury (Pt) Theodore Service: Physical Therapy Author Type: Physical Therapist Type: Therapy (PT/OT/Speech/Resp) Filed: 09/19/2017 5:15 PM Note Text: Physical Therapy Evaluation SERVICE DATE: 09/19/2017 SERVICE TIME: 1510 to 1533 ROOM: [place] [address] Recommended Discharge Disposition: Home Anticipated Discharge Needs: Supervision at Home Supervision at Home due to: (Decreased activity tolerance) Recommended Discharge Equipment: No equipment needs anticipated PT Recommendations to Nursing: Ambulate without device;With assist of 1 person (assist for line management) Device: (IV pole PRN) PT 6 Clicks Score: 24 ASSESSMENT : Patient Disposition at Start of Session: Supine in Bed Patient Disposition at End of Session: OOB in Chair;Call [place]ricks[place] in Reach (Pt appropriate for OOB activity) Tolerated Full Session Patient presents with decreased activity tolerance due to immobility for ~1 week while at OSH; however, pt demonstrates mod I in all functional mobility with good safety awareness. Pt agreeable to perform HEP and agreeable to PT/dc plan. PT discontinuing services at this time. Please re-consult if new needs arise. PLAN: Treatment Frequency (times per week): Discontinue Therapy Services Reasons Therapy Services Discontinued: No skilled needs Treatment Interventions: Education;Self Care / Home Management;Energy Conservation Training;Joint Mobility;Strengthening;Functional Mobility Training;Balance Training;Neuromuscular Re-education Plan of Care developed with: Patient TREATMENT INTERVENTIONS: Therapy Diagnosis: No Skilled Need Interventions Provided: Evaluation;Gait Training (12348) $ Evaluation-Low (31567) Billed Units: 1 unit Gait Training (61362) Treatment Minutes: 8 1 unit Skilled Intervention(s): Instruction in sit to stand technique with proper hand placement and body positioning at edge of bed/chair, Instruction in stand to sit technique with LE's touching chair/bed and reaching back for surface, Instruction in sequencing, gait pattern, Instruction in correction of gait deviations, Instruction in use of equipment (with and without AD), cues for sequence and pattern, posture, safety, pacing. Educated in safety precautions and modifications during ambulation. Education in activity tolerance, use of pursed lip breathing and means of self monitoring tolerance to activity and exercise. Education of PT role/responsibility, d/c planning, poc, benefits of mobility, importance of OOB activity with nursing assist, use of call light, safety, activity pacing, precautions. ? Total Timed Code Treatment Minutes: 8 Total Treatment Time (minutes): 23 FUNCTIONAL G CODE: PT 6 Clicks Score: 24 (09/19/17 1510) Mobility: Walking and Moving Around Current Status (G8978): (09/19/17 1510) Mobility: Walking and Moving Around Goal Status (G8979): (09/19/17 1510) Mobility: Walking and Moving Around Discharge Status (G8980): (09/19/17 1510) Based on clinical assessment and the score on the 6 Clicks Functional Assessment Tool, the G code and corresponding severity modifiers are documented above. 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 Reason for Physical Therapy Consult : Post acute placement Patient Report: Pt agreeable to PT. I haven't done anything in over a week, but I would like to try to walk. Home Environment Patient Lives With: Significant Other Assistance Available: 24 Hour Entry To Home: Stairs;With Rail Number Of Stairs Into Home: 3 Number Of Stairs To Bed/Bath: 0 Prior Functional Level: Within Functional Limits (+ cooking, cleaning, yard work) OBJECTIVE: CURRENT FUNCTIONAL STATUS: Current Functional Mobility Assist Level Additional Information Rolling Independent Supine to Sit Independent Sit to Supine Independent Scooting Independent Sit to Stand Independent Stand to Sit Independent Bed to Chair Independent Toilet/Commode Gait Supervision Gait Device: IV Pole;None Gait Distance (feet): 100 ea General Gait Deviations: Carol decreased;Shuffling Gait (due to immobility > 1 week) Please see discipline specific clinical documentation flowsheet for complete details for this therapy evaluation/treatment. SIGNATURE: Aury Jaimes PT PATIENT NAME: Sabina Flores DATE: September 19, 2017 TIME: 5:12 PM PAGER/CONTACT #: [phone] NUTRITION Observed: 09/19/2017 Status: COMPLETED Source: GWINN 11:45 AM [facility] [place] REPOSITORY HNO ID: [id number] Author: Joselin Rivers Service: Nutrition Therapy Author Type: Registered Dietitian Type: Nutrition Filed: 09/19/2017 7:06 PM Note Text: NUTRITION THERAPY INITIAL ASSESSMENT SERVICE DATE: 09/19/2017 SERVICE TIME: 1620 RECOMMENDED MALNUTRITION DIAGNOSIS: SEVERE PROTEIN-CALORIE MALNUTRITION In the context of Acute Illness or Injury based on: Insufficient Energy Intake: less than or equal to 50% for greater than or equal to 5 days Subcutaneous Fat Loss: Moderate Loss Muscle Loss Severe Loss NUTRITION CARE PLAN: Problem, Etiology and Signs/Symptoms: Suboptimal oral intake related to lack of intakes as evidenced by NPO x 5 days Intervention: Initiate diet based on results of MBS Monitor and Evaluation: Goal: Meet >75% of estimated needs Monitor fluid/electrolyte balance Monitor labs, I/Os, vital signs, weight Discharge Nutrition Recommendations: To be determined Per HPI: This is a 77M with a PMHx of 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 ? 6 mo hx of dysphagia. He got a pill stuck in throat last - went to OSH. Was eating/drinking there until got stuck again. Has been NPO since. He states he is hungry and wants to eat. He is hopeful his MBS will be good. He does not want a corpak. Present Diet Order: NPO Enteral Access: na Nutritional Intake Prior to Admission: nothing to eat or drink for 5 days except this glass of water. GI symptoms: swallowing problems Abdominal Exam: abdomen is soft Is the patient having any pain that is interfering with oral/enteral intake? No ANTHROPOMETRICS Height: 180.3 cm (5' 11) Admission Weight: 53.7 kg (118 lb 6.2 oz) Current Weight: 53.7 kg (118 lb 6.2 oz) Body mass index is 16.51 kg/m?. 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 HT/WT/BMI WEIGHT % wt loss 08/15/2016 60.328 kg 11% x 13 mo 04/11/2017 55.792 kg 3.7% x 5 mo 09/18/2017 53.7 kg Resting Metabolic Rate: 1289 Estimated kilocalorie needs: 1710 - 1995 kilocalories determined by 30 - 35 kcal/kg (57kg) Estimated protein needs: 85 - 100 grams determined by 20% energy NUTRITION FOCUSED PHYSICAL EXAM: Subcutaneous Fat Loss Orbital Moderate Triceps Moderate Mid-axillary at the iliac crest Moderate Muscle Loss Locations: Temporalis Moderate Pectoralis Severe Deltoids Severe Interosseous Severe Latissimus dorsi, trapezius Unable to determine at this time Quadriceps Moderate Gastrocnemius Severe Potential micronutrient deficiency revealed in: No deficiency identified Edema: No Ascites: No Assessment of Functional Status: Functional capacity is unrelated to nutrition status Temperature Max in 24 hours: Temp (24hrs), Av.7 ?C (98 ?F), Min:36.4 ?C (97.6 ?F), Max:37 ?C (98.6 ?F) BP 134/73 Pulse 81 Temp 36.5 ?C (97.7 ?F) (Oral) Resp 20 Ht 180.3 cm (5' 11) Wt 53.7 kg (118 lb 6.2 oz) SpO2 95% BMI 16.51 kg/m? Recent Labs 09/19/17 0118 09/18/17194109/18/17 193 GLUC 105* -- 97 < > -- BUN 15 -- 15 < > -- CREAT 1.02 -- 1.08 < > -- NA 138 -- 143 < > -- K 4.4 -- 4.9 < > -- CHLOR 103 -- 104 < > -- CO2 20* -- 19* < > -- ALB 2.6* -- 3.3* < > -- CRP -- -- 1.1* -- -- HB 12.0* < > -- < > -- HCT 41.6 < > -- < > -- WBC 30.59* < > -- < > -- P -- -- -- -- 3.1 MG 2.0 -- 2.2 < > -- < > = values in this interval not displayed. Potential Signs of Inflammation: leukocytosis, hyperglycemia, hypoalbuminemia, high CRP and imaging studies ALLERGIES No Known Allergies Current Facility-Administered Medications: ergocalciferol (vitamin D2) 50,000 Units cap(s) (DRISDOL) 50,000 Units ORAL q 1 WEEK phytonadione 10 mg oral liquid (VITAMIN K) 10 mg ORAL DAILY piperacillin-tazobactam 3.375 g in dextrose (iso-osmotic) 50 mL (ZOSYN) 3.375 g INTRAVENOUS q 6 H pantoprazole 40 mg injection (PROTONIX) 40 mg INTRAVENOUS DAILY (6 AM) vancomycin 750 mg in D5W 250 mL (VANCOCIN) 0.015 g/kg/dose INTRAVENOUS q 24 HR dextrose 5% in NaCl 0.45% iv infusion 50 mL/hr INTRAVENOUS CONTINUOUS Pressure Injury 09/18/17 1559 Coccyx (Active) Stage Injury 1 09/19/2017 9:00 AM Motor Vehicles Inspector Related Pressure Injury No 09/19/2017 9:00 AM Number of days: 1 MNT Billing Type: Initial Assess/15 min 4 units SIGNATURE: Joselin Rivers MS RDN-AP [facility] PATIENT NAME: Sabina Flores DATE: September 19, 2017 TIME: 11:46 AM PAGER: [phone] PLAN OF CARE Observed: 09/19/2017 Status: COMPLETED Source: GWINN 11:38 AM [facility] REPOSITORY HNO ID: [id number] Author: Odette Charles (Internet Technology Manager) Service: (none) Author Type: (none) Type: Plan of Care Filed: 09/19/2017 11:39 AM Note Text: ASSISTANT PROGRAM MANAGER BEDSIDE DELIVERY SURVEY 1. Patient to use [facility] Bedside Delivery - YES 2. If fax, patient would like us to fax prescriptions to Pharmacy of choice a. Pharmacy: b. Location: c. Phone: 3. Insurance card on file - YES 4. Credit card for payment - NO No prescriptions yet. Please page [phone] CONSULT Observed: 09/19/2017 Status: COMPLETED Source: GWINN 10:08 AM [facility] REPOSITORY HNO ID: [id number] Author: Ricky Mosquera Service: Gastroenterology Author Type: Physician Type: Consults Filed: 09/19/2017 4:29 PM Note Text: Gastroenterology Consult Service Department of Gastroenterology AND Hepatology [facility] [place] [facility] INITIAL CONSULT NOTE SERVICE DATE: 09/19/2017 SERVICE TIME: 10:08 AM Opinion/advice regarding: Dysphagia IMPRESSION AND PLAN 77 YOM with laryngeal cancer s/p radiation in 2014, now comes with dysphagia secondary to esophageal stricture. 1) Esophageal stricture likely secondary to radiation - He will need serial dilations, with multiple sessions spanning many weeks. - He has a higher risk of complications including post-procedural pain, esophageal perforation and delayed tracheoesophageal fistual. - The patient has history of esophageal web s/p dilation in 2003 - reports not available at this time. Recommendations: - The patient tolerates soft food and liquids well. The workup below can all be done as outpatient. - Obtain an XR esophagram to evaluate location and length of stricture segment. - Swallow eval - to assess oropharyngeal phase of swallowing. - EGD for initial assessment and CORPAK placement. - Following the above workup patient can follow outpatient for dilations with or without fluoroscopy based on finidings. HPI: Mr. Flores is a 77 year-old gentleman. He is known to have T2N0 invasive poorly differentiated SCC of the larynx s/p radiation which he completed April 2014. He also has history of partial gastrectomy due to gastric ulcer. He has been complaining of difficulty swallowing solids for the past 6 months. He does not have trouble swallowing liquids, and most solids, but he cannot swallow steak or chicken if he does not chew well. No chest pain on swallowing and no significant weigh loss over the past 6 months. About 6 days ago, he developed abdominal pain was was seen at [place] ED. He was given and iron pill and he felt that the pill is stuck in the middle of the chest. EGD was done to remove the pill, no dilation was attempted. He developed post procedural pain, imagine did not show perforation, and transferred to [facility] for further care. By the time he arrived at [facility], his abdominal pain and chest pain has resolved. 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 While trying to use the 3-prong graspers to grasp the pill it slid forward into the distal esophagus into pieces. The scope was advanced through the stricture and was barely able to fit. The esophageal tissue was friable and there was some minor bleeding. The scope was withdrawn and this bleeding was monitored and it was felt to be very minor. The scope was slowly withdrawn and the patient was awoken and taken to PACU in stable condition. For fear of worsening the bleeding I did not pass the scope beyond the midesophagus EGD 02/20/2013: Normal esophagus. Antrectomy with health mucosa on the anastamosis. Single non-bleeding AVM. Colon 02/20/2013: One 10 mm polyp 30 cm proximal to the anus. Resected. Clipped. Path: Tubular adenoma. EGD 03/03/2004: Esophageal web seen Pertinent Review of Systems: GENERAL: No weight loss, malaise or fevers. SEE HPI NECK: Negative for lumps, goiter, pain and significant neck swelling RESPIRATORY: Negative for cough, wheezing or shortness of breath. CARDIOVASCULAR: Negative for chest pain, leg swelling or palpitations. GI: See HPI MUSCULOSKELETAL: Negative for joint pain or swelling, back pain or muscle pain. All other reviewed and negative other than HPI. 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 - Former tobacco use 09/18/2017 - History of laryngeal cancer 10/27/2014 - Interstitial lung disease (HCC) 02/09/2011 Ct chest 01/2011 - Iron deficiency anemias 01/11/2005 - Malignant neoplasm of larynx (HCC) 05/31/2017 - PEPTIC ULCER NOS 01/11/2005 - PERS HX OF ALCOHOLISM 01/11/2005 - Polycythemia 05/21/2013 - S/P partial gastrectomy 09/18/2017 - Severe protein-calorie malnutrition (HCC) 11/20/2016 - Shortness of breath 09/18/2017 - Squamous cell carcinoma of larynx (HCC) 02/08/2017 - Tobacco use disorder 01/11/2005 - Unspecified asthma(493.90) 03/03/2011 PAST SURGICAL HISTORY: PAST SURGICAL HISTORY Procedure Laterality Date - COLONOSCOP W/ OR W/O BRSH SPEC 2003 Colonoscopy - COLONOSCOP W/ OR W/O BRSH SPEC 02/20/2013 Colonoscopy - COLONOSCOP W/ OR W/O BRSH SPEC 03/30/16 Colonoscopy - EGD W/O OR W/BRUSH/WASH 2003 EGD - EGD W/O OR W/BRUSH/WASH 02/20/13 EGD - ESOPH W/O BRSH SPEC BALLOON DIL 03-30-2004 Esophageal dilatation - LARYNGOSCOPY W/ BIOPSY 02/06/2014 - PARTIAL GASTRECTOMY 1970 - PAST SURGICAL HISTORY OF Left 08/29/2016 Floor of mouth resection, sialadochoplasty FAMILY HISTORY: FAMILY HISTORY Problem Relation Age of Onset - Cancer Brother lung cancer - Cancer Brother bone cancer - Cancer Brother brain tumor or cancer - Coronary Artery Disease Father age 64, [place] - None Mother age 95 SOCIAL HISTORY: Social History Substance Use Topics - Smoking status: Former Smoker Packs/day: 2.00 Years: 52.00 Types: Cigarettes Quit date: 09/01/2013 - Smokeless tobacco: Never Used - Alcohol use 6.0 oz/week 4 Cans of Beer (12oz) per week MEDICATIONS: Prior to Admission Medications: doxycycline monohydrate (MONODOX) 100 mg capsule Take 100 mg by mouth once daily. tiotropium-olodaterol (STIOLTO RESPIMAT) 2.5-2.5 mcg/actuation mist Inhale 2 Puffs as instructed twice daily. albuterol HFA (VENTOLIN HFA) 90 mcg/actuation inhaler Inhale 2 Puffs as instructed every 6 hours as needed for Wheezing/Shortness of Breath. Current hospital medications: 0.9% NaCl 3-5 mL 3-5 mL INTRAVENOUS q 12 H albuterol 2.5 mg /3 mL (0.083 %) 2.5 mg (PROVENTIL) 2.5 mg INHALATION q 4 H PRN ipratropium-albuterol 3 mL nebulizer solution (DUONEB) 3 mL INHALATION q 4 H PRN piperacillin-tazobactam 3.375 g in dextrose (iso-osmotic) 50 mL (ZOSYN) 3.375 g INTRAVENOUS q 6 H pantoprazole 40 mg injection (PROTONIX) 40 mg INTRAVENOUS DAILY (6 AM) vancomycin dosing and monitoring per pharmacy OTHER As Directed heparin 5,000 Units injection 5,000 Units SUBCUTANEOUS q 8 H vancomycin 750 mg in D5W 250 mL (VANCOCIN) 0.015 g/kg/dose INTRAVENOUS q 24 HR dextrose 5% in NaCl 0.45% iv infusion 50 mL/hr INTRAVENOUS CONTINUOUS Chlorhexidine Gluconate 0.12 % 15 mL (PERIDEX) 15 mL ORAL q 6 H tiotropium 18 mcg cap(s) and device for inhalation (SPIRIVA) 18 mcg INHALATION DAILY fluticasone-vilanterol 100-25 mcg/dose 1 Inhalation (BREO ELLIPTA) 1 Inhalation INHALATION DAILY ALLERGIES: ALLERGIES No Known Allergies OBJECTIVE: PHYSICAL EXAM: BP 134/73 Pulse 81 Temp (Src) 97.7 (Oral) Resp 20 Ht 5' 11 (1.80m) Wt 118 lb 6.2 oz (53.7kg) SpO2 95% BMI 16.52 kg/(m2). General appearance: AOx3 thin Skin: Skin color, texture, turgor normal, no rash. Eyes: Anicteric sclera. No palor. Oropharynx: Lips, mucosa, and tongue normal. Lungs: lungs clear to auscultation, no wheezing or rhonchi Heart: RRR Abdomen soft, non-tender. Bowel sounds normal. No masses or organomegaly. DATA: CBC, Coags, BMP, Mg, Phos Recent Labs 09/19/17 0118 09/18/17 2222 09/18/17 1942 09/18/17 1940 09/18/17 1938 WBC 30.59* 36.45* -- 45.29* -- HB 12.0* 12.4* -- 13.9 -- HCT 41.6 43.3 -- 48.8 -- PLT 1,268* 1,355* -- 1,665* -- INR -- -- -- -- 2.2* APTT -- -- -- -- 43.3* NA 138 -- 143 -- -- K 4.4 -- 4.9 -- -- CHLOR 103 -- 104 -- -- CO2 20* -- 19* -- -- BUN 15 -- 15 -- -- CREAT 1.02 -- 1.08 -- -- GLUC 105* -- 97 -- -- CA 8.4* -- 9.0 -- -- MG 2.0 -- 2.2 -- -- P -- -- -- -- 3.1 Liver Function, Amylase, AND Lipase Recent Labs 09/19/17 0118 09/18/171941 TPROT 5.1* 6.2* ALB 2.6* 3.3* ALT 10 10 AST 18 17 ALKPHOS 89 114* TBILI 0.3 0.4 LACT -- 1.6 SIGNATURE: Quentin Gomez MD PATIENT NAME: Sabina Flores DATE: September 19, 2017 TIME: 10:08 AM PAGER/CONTACT #: [phone] [facility] STAFF PHYSICIAN NOTE OF PERSONAL INVOLVEMENT IN CARE I have reviewed the consult note obtained and documented by the fellow and I personally participated in the perry components. I have discussed the case and management of the patient's care. The following comments revise or confirm relevant perry components of their note. IMPRESSION: This is a 77 year old male who presents with dysphagia. Hx of esophageal web and RT therapy of the chest. Currently able to hydrate and eat a liquid/soft diet. PLAN: outpatient series of dilations of known esophageal structure. SIGNATURE: Ricky Mosquera MD, MPH DATE of SERVICE: September 19, 2017 TIME of SERVICE: 4:29 PM FIBRINOGEN Collected: 09/19/2017 Status: F Source: [facility] 10:02 AM [facility] REPOSITORY TYPE CODE TESTS RESULT OUT OF REFERENCE UNITS RANGE LAB FIBCT 200-400 mg/dL Fibrinogen 280 Performed By: #### FIBCT, HAPTO, LD6 #### [facility] Proenza Sch[address]er [address] [address] HAPTOGLOBIN Collected: 09/19/2017 Status: F Source: [facility] 10:02 AM [facility] REPOSITORY TYPE CODE TESTS RESULT OUT OF REFERENCE UNITS RANGE LAB HAPTO 31-238 mg/dL Haptoglobin 158 Performed By: #### FIBCT, HAPTO, LD6 #### [facility] [address] [address] LD Collected: 09/19/2017 Status: F Source: [facility] 10:02 AM [facility] [place] REPOSITORY TYPE CODE TESTS RESULT OUT OF RANGE REFERENCE UNITS LAB LD 135-225 U/L High LD 415 Performed By: #### FIBCT, HAPTO, LD6 #### [facility] [address] [address] STAPH AUREUS PCR Collected: 09/19/2017 Status: F Source: [facility] 9:32 AM [facility] REPOSITORY TYPE CODE TESTS RESULT OUT OF RANGE REFERENCE UNITS LAB SASRC Nasal S aureus Spec Source LAB MRSRES Positive for MRSA Abnormal MRSA by PCR. Alert PCR LAB SARES Positive for Abnormal Staph Staphylococcus Alert aureus PCR aureus by PCR. Performed By: #### SAPCR #### [facility] [address] [address] PROGRESS Observed: 09/19/2017 Status: COMPLETED Source: [facility] 8:56 AM [facility] REPOSITORY HNO ID: [id number] Author: Hernesto Sarkar Service: General Internal Medicine Author Type: Physician Type: Progress Notes Filed: 09/19/2017 4:49 PM Note Text: Catalino Olsen Progress Note For questions regarding this patient for today, [place] [phone]. 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 Today's Plan: - continue vanc/zosyn - f/u CBC with staff review, urine culture, blood culture - t/c heme c/s depending on trend of WBC and platelets - GI c/s, appreciate recs re: esophageal stricture and further imaging +/- EGD with dilation (ordered) - f/u TTE - continue spiriva and breo-ellipta, duoneb and albuterol PRN Active Hospital Problems Diagnosis - Leukocytosis - on cipro/flagyl at OSH as well as zosyn started prior to transfer - sputum culture at OSH 09/16 positive for malik albicans (presumptive) - DDx includes infection vs malignancy - CRP 1.1, ESR nl, procalcitonin 0.20 (H), lactate nl - iron studies with low iron/TIBC/saturation, normal ferritin in setting of recent IV iron at OSH - vitamin B12 normal Plan: - f/u CBC with staff review - f/u urine and blood culture - cont vanc/zosyn, plan to de-escalate after 3 days if no source found - t/c ID c/s - Thrombocytosis (HCC) - 432k in 01/2015, progressively rising. 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 Plan: - EGD dilation general anesthesia (concern about patient tolerating procedure while awake) - NPO with IVF - GI c/s - Shortness of breath - DDx includes COPD, aspiration, pulmonary edema, ?ILD - on nocturnal oxygen PRN at home - CXR on admission not significant for pulmonary edema though NT pro-BNP 3122 on admission (does not appear volume overloaded on exam). Troponin T negative Plan: - f/u TTE - COPD management as under COPD - Tachycardia - TSH elevated at 8.25 with normal free T4 - EKG on admission shows sinus tachycardia Plan: - f/u TTE - History of peptic ulcer - s/p partial gastrectomy 1971 Plan: - PPI (IV while NPO) - COPD (chronic obstructive pulmonary disease) (HCC) - productive cough improving, denies fevers/chills - does not appear to be COPD exacerbation on admission - at home on ventolin PRN and stiolto daily Plan: - start spiriva and breo-ellipta - duoneb and albuterol PRN - Dysphagia - Former tobacco use - S/P partial gastrectomy - Malignant neoplasm of larynx (HCC) - 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 Denies CP. PHYSICAL EXAMINATION: BP 134/73 Pulse 81 Temp 36.5 ?C (97.7 ?F) (Oral) Resp 20 Ht 180.3 cm (5' 11) Wt 53.7 kg (118 lb 6.2 oz) SpO2 95% BMI 16.51 kg/m? GENERAL: alert, no distress, cooperative HEAD/SINUSES: No significant findings. EYES: PERRLA and EOMI NOSE: Nares normal. Septum midline NECK: supple LUNGS: Lungs clear to auscultation though with decreased breath sounds bilaterally, no wheezes, no crackles CARDIAC: normal S1 and S2; no rubs, murmurs, or gallops ABDOMEN: Abdomen soft, non-tender, no guarding/rebound. BS normal. EXTREMITIES: Extremities normal. No deformities, edema Laboratory Values CBC: Recent Labs 09/19/17 0118 09/18/17 2222 09/18/17 1940 WBC 30.59* 36.45* 45.29* HB 12.0* 12.4* 13.9 HCT 41.6 43.3 48.8 PLT 1,268* 1,355* 1,665* MCV 60.6* 60.9* 61.9* RDWCV 24.2* 24.5* 25.4* COAG: Recent Labs 09/18/171937 APTT 43.3* INR 2.2* BMP: Recent Labs 09/19/17 0118 09/18/171941 GLUC 105* 97 NA 138 143 K 4.4 4.9 CHLOR 103 104 CO2 20* 19* ANION 15 20* BUN 15 15 CREAT 1.02 1.08 CHEM: Recent Labs 09/19/1711709/18/171941 ALB 2.6* 3.3* TPROT 5.1* 6.2* CA 8.4* 9.0 MG 2.0 2.2 HEPATIC: Recent Labs 09/19/1711709/18/171941 ALKPHOS 89 114* ALT 10 10 AST 18 17 TBILI 0.3 0.4 URINALYSIS: Recent Labs 09/18/172052 SPGR 1.023 UGLUC Negative UBILI Negative UKET 1+* UHB Negative UPROT Negative UWBC 0-5 CARDIAC: Recent Labs 09/19/1711909/18/171941 TROPT <0.010 <0.010 PBNP -- 3,122* Component Latest Ref Rng AND Units 09/18/2017 09/19/2017 WBC 3.70 - 11.00 k/uL 45.29 (H) 30.59 (H) RBC 4.20 - 6.00 m/uL 7.88 (H) 6.87 (H) Hemoglobin 13.0 - 17.0 g/dL 13.9 12.0 (L) Hematocrit 39.0 - 51.0 % 48.8 41.6 MCV 80.0 - 100.0 fL 61.9 (L) 60.6 (L) MCH 26.0 - 34.0 pG 17.6 (L) 17.5 (L) MCHC 30.5 - 36.0 g/dL 28.5 (L) 28.8 (L) RDW-CV 11.5 - 15.0 % 25.4 (H) 24.2 (H) Platelet Count 150 - 400 k/uL 1,665 (H) 1,268 (H) MPV 9.0 - 12.7 fL 8.4 (L) 8.8 (L) Neut% % 84.0 Abs Neut (ANC) 1.45 - 7.50 k/uL 38.04 (H) Lymph% % 3.0 Abs Lymph 1.00 - 4.00 k/uL 1.36 Preston% % 9.0 Abs Preston <0.87 k/uL 4.08 (H) Eosin% % 1.0 Abs Eosin <0.46 k/uL 0.45 Baso% % 0.0 Abs Baso <0.11 k/uL 0.00 ANC(includeSEG+BAND) k/uL 38.04 Spring% % 3.0 Anisocytosis Present Left Shift Present Giant Platelets Occasional Ovalocytes Few Agranular Platelets Occasional Polychromasia Slight RBC Fragments Few Platelet Estimate Platelet estimate increased Diff Type Manual Diff Staff Review, CBCDIF SEE COMMENT Pathologist for Staff Review Reviewed by Araseli Guerin MD, PhD. ([id number]) Protein, Total 6.3 - 8.0 g/dL 6.2 (L) 5.1 (L) Albumin 3.9 - 4.9 g/dL 3.3 (L) 2.6 (L) Calcium 8.5 - 10.2 mg/dL 9.0 8.4 (L) Bilirubin, Total 0.2 - 1.3 mg/dL 0.4 0.3 Alkaline Phosphatase 36 - 108 U/L 114 (H) 89 AST 14 - 40 U/L 17 18 Glucose 74 - 99 mg/dL 97 105 (H) BUN 9 - 24 mg/dL 15 15 Creatinine 0.73 - 1.22 mg/dL 1.08 1.02 Sodium 136 - 144 mmol/L 143 138 Potassium 3.7 - 5.1 mmol/L 4.9 4.4 Chloride 97 - 105 mmol/L 104 103 CO2 22 - 30 mmol/L 19 (L) 20 (L) Anion Gap 9 - 18 mmol/L 20 (H) 15 ALT 10 - 54 U/L 10 10 eGFR- >60 >60 eGFR-All Other Races . >60 >60 Iron 41 - 186 ug/dL 23 (L) TIBC 232 - 386 ug/dL 200 (L) Transferrin Saturation 15 - 57 % 12 (L) PT Sec 9.7 - 13.0 sec 21.9 (H) PT INR 0.9 - 1.3 2.2 (H) APTT 23.0 - 32.4 sec 43.3 (H) Magnesium 1.7 - 2.3 mg/dL 2.2 2.0 Lactate 0.5 - 2.2 mmol/L 1.6 Procalcitonin <0.09 ng/mL 0.20 (H) WSR 0 - 15 mm/hr 2 Troponin T 0.000 - 0.029 ng/mL <0.010 NT Pro BNP <450 pg/mL 3,122 (H) CRP <0.9 mg/dL 1.1 (H) Ferritin 30.3 - 565.7 ng/mL 223.1 Vitamin B12 232 - 1,245 pg/mL 345 Vitamin D 25 Hydroxy 31.0 - 80.0 ng/mL 6.2 (L) TSH 0.400 - 5.500 uU/mL 8.250 (H) Free T4 0.9 - 1.7 ng/dL 1.0 Fib Clot 200 - 400 mg/dL 280 LD 135 - 225 U/L 415 (H) Haptoglobin 31 - 238 mg/dL 158 Diagnostic tests reviewed for today's visit: Most recent labs Most recent imaging Created by: Teressa Alarcon MD PGY-1 Internal Medicine Resident [facility] Pager: [phone] [facility] STAFF PHYSICIAN NOTE OF PERSONAL INVOLVEMENT IN CARE Chart reviewed, patient examined, and perry elements of progress note of the patient confirmed and agree with the documented findings and plan of care. Add vitamin D supplementation. Oral vitamin K as well to reverse INR. Recheck INR in AM. Alk phos dropping w IVF's - check zinc levels. Appreciate GI consult input. Hernesto Sarkar MD FAAP FACP [facility] Internal Medicine-Pediatrics [facility] Medicine/IMPACT Pager: VAURONM Date of Service: September 19, 2017 Time of Service: 2:08 PM CASE MGT INIT Observed: 09/19/2017 Status: COMPLETED Source: [facility] 8:38 AM [facility] REPOSITORY HNO ID: [id number] Author: Iva (Rn) TL Barrera Service: Case Management Author Type: Registered Nurse Type: Care Mgt Initial Assessment Filed: 09/19/2017 8:46 AM Note Text: CARE MANAGEMENT: ASSESSMENT AND DISCHARGE PLAN SERVICE DATE: 09/19/2017 SERVICE TIME: 0838 PRIMARY CARE PHYSICIAN: Varun Wang MD ADMISSION STATUS: Inpatient Needs Prior to Discharge: To Be Determined 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 No Advance Directive: Current Advance Directive: None Wireless Technician Assisted with AD Completion: No Health Literacy: 1. How often do you need to have someone help you when you read instructions, pamphlets, or other written material from your doctor or pharmacy? Never - 1 2. How confident are you filling out medical forms by yourself? Extremely - 1 If Patient scores > 3 on either question, the following interventions were put into place: Patient did not score > 3 FUNCTIONAL AND COGNITIVE/BEHAVIORAL PRIOR TO ADMISSION: Baseline Mental Status: Alert AND Oriented, Person, Place , Time and Situation Functional Status: Independent Does Patient Currently Receive Any Community Services or Home Care? None Equipment Prior to Admission: Oxygen 2 liters per minute (at night) Has the Patient Been in a Assisted Facility in the Past 30 days? No SOCIAL: Living Arrangement: Home Lives With: Spouse Financial Resources: Retired Primary Contact: Extended Emergency Contact Information Primary Emergency Contact: Donnie Flores Address: [address] [place] [id number] Mobile Relation: Spouse Supportive: Yes Other Important Patient Contacts: None Caregiver Assessment: Caregiver is ready, willing and able to meet the patient's needs as recommended by the inter-professional team? Yes Patient's transition needs and plan for meeting these needs: patient independent Does the patient have an acute stroke diagnosis, or has the patient had a stroke during this admission? No Medication Adherence: I am convinced of the importance of my prescription medication: Agree completely - 0 I worry that my prescription medication will do more harm than good to me Disagree completely - 0 I feel financially burdened by my [id number] expenses for my prescription medication: Disagree completely - 0 Patient is categorized as low risk < 2 Are you interested in bedside delivery of your medications? Yes Food Concerns: In the Last Month, Have You had Trouble Getting Food? No trouble getting food During the Last Month, Have You Worried Whether Your Food Would Run Out Before You Had Enough Money to Buy More? No Is the Patient Psychosocially Complex? 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 Patient discharge date TBD home via daughter transportation. Patient admitted from OSH with shortness of breath and esophageal stricture. Patient independent with care at home prior to admission. Patient utilizes 2L O2 at night unable to provide the name of equipment company. Plan TBD. Awaiting further recommendations. Please contact case management for any changes in skilled needs. Thank you SIGNATURE: Iva Barrera RN PATIENT NAME: Sabina Flores DATE: September 19, 2017 TIME: 8:38 AM PAGER/CONTACT #: [phone] TROPONIN T Collected: 09/19/2017 Status: F Source: [facility] 1:20 AM [facility] REPOSITORY TYPE CODE TESTS RESULT OUT OF REFERENCE UNITS RANGE LAB TROPT 0.000-0.029 ng/mL Troponin T <0.010 Performed By: #### GABRIELE #### [facility] [address] [address] IRON AND TIBC Collected: 09/19/2017 Status: F Source: [facility] 1:18 AM [facility] REPOSITORY TYPE CODE TESTS RESULT OUT OF REFERENCE UNITS RANGE LAB IRN 41-186 ug/dL Low Iron 23 LAB TIBC 232-386 ug/dL Low TIBC 200 LAB SAT 15-57 % Low Transferrin Saturatn 12 Performed By: #### IRON, MG1, FT4, B12, FERR, TSH, CMP, VITD, CBCDIF #### [facility] [address] [place] [address] MAGNESIUM Collected: 09/19/2017 Status: F Source: [facility] 1:18 AM [facility] REPOSITORY TYPE CODE TESTS RESULT OUT OF REFERENCE UNITS RANGE LAB MG 1.7-2.3 mg/dL Magnesium 2.0 Performed By: #### IRON, MG1, FT4, B12, FERR, TSH, CMP, VITD, CBCDIF #### [facility] Proenza Schouer [address] [place] [address] FREE T4 Collected: 09/19/2017 Status: F Source: [facility] 1:18 AM [facility] REPOSITORY TYPE CODE TESTS RESULT OUT OF RANGE REFERENCE UNITS LAB FT4 0.9-1.7 ng/dL Free T4 1.0 Performed By: #### IRON, MG1, FT4, B12, FERR, TSH, CMP, VITD, CBCDIF #### [place] [address] VITAMIN B12 Collected: 09/19/2017 Status: F Source: [facility] 1:18 AM [facility] REPOSITORY TYPE CODE TESTS RESULT OUT OF REFERENCE UNITS RANGE LAB B12 232-1245 pg/mL Vitamin B12 345 Performed By: #### IRON, MG1, FT4, B12, FERR, TSH, CMP, VITD, CBCDIF #### [place] [address] FERRITIN Collected: 09/19/2017 Status: F Source: [facility] 1:18 AM [facility] REPOSITORY TYPE CODE TESTS RESULT OUT OF REFERENCE UNITS RANGE LAB FERR 30.3-565.7 ng/mL Ferritin 223.1 Performed By: #### IRON, MG1, FT4, B12, FERR, TSH, CMP, VITD, CBCDIF #### [place] [address] TSH Collected: 09/19/2017 Status: F Source: [facility] 1:18 AM [facility] REPOSITORY TYPE CODE TESTS RESULT OUT OF RANGE REFERENCE UNITS LAB TSH 0.400-5.500 uU/mL High TSH 8.250 Performed By: #### IRON, MG1, FT4, B12, FERR, TSH, CMP, VITD, CBCDIF #### [place] [address] COMP METABOLIC PANEL Collected: 09/19/2017 Status: F Source: [facility] 1:18 AM [facility] REPOSITORY TYPE CODE TESTS RESULT OUT OF REFERENCE UNITS RANGE LAB TP 6.3-8.0 g/dL Low Protein, Total 5.1 LAB ALB 3.9-4.9 g/dL Low Albumin 2.6 Result Comment: Result rechecked. LAB CA 8.5-10.2 mg/dL Low Calcium, Total 8.4 LAB TBIL 0.2-1.3 mg/dL Bilirubin, Total 0.3 LAB ALKP 36-108 U/L Alkaline Phosphatase 89 LAB AST 14-40 U/L AST 18 LAB GLU 74-99 mg/dL Glucose High 105 Result Comment: The [place] [employer] (ADA) provides guidance for cutoff values for fasting glucose and random glucose. The ADA defines fasting as no caloric intake for at least 8 hours. Fas ting plasma glucose results between 100 to 125 mg/dL indicate increased risk for diabetes (prediabetes). Fasting plasma glucose results greater than or equal to 126 mg/dL meet the criteria for diagnosis of diabetes. In the absence of unequivocal hyperglycemia, results should be confirmed by repeat testing. In a patient with classic symptoms of hyperglycemia or hyperglycemic crisis, random plasma glucose results greater than or equal to 200 mg/dL meet the criteria for diagnosis of diabetes. Reference: Standards of Medical Care in Diabetes 2016, [place] [employer]. Diabetes Care. 2016.39(Suppl 1). LAB BUN 9-24 mg/dL BUN 15 LAB CRET 0.73-1.22 mg/dL Creatinine 1.02 LAB NA 136-144 mmol/L Sodium 138 LAB K 3.7-5.1 mmol/L Potassium 4.4 LAB CL 97-105 mmol/L Chloride 103 LAB CO2 22-30 mmol/L CO2 Low 20 LAB AGAP 9-18 mmol/L Anion Gap 15 LAB ALT 10-54 U/L ALT 10 LAB GFRAA eGFR- Amer. >60 LAB GFRNAA . eGFR-All Other Races >60 Result Comment: eGFR (Estimated GFR) Units of measure: mL/min/1.73 meters squared eGFR is derived from the reexpressed MDRD Study equation using the following parameters: serum creatinine, age, gender and race. The creatinine assay has been calibrated to be traceable to IDMS. An eGFR <60 mL/min/1.73m2 for >3 months is consistent with chronic kidney disease. Refer to KDOQI guidelines for clinical interpretation. In patients with unstable renal function, e.g. those with acute kidney injury, the eGFR may not accurately reflect actual GFR. Performed By: #### IRON, MG1, FT4, B12, FERR, TSH, CMP, VITD, CBCDIF #### [facility] Pro[address] Sch[address] [place], [place] [address] VITAMIN D 25 HYDROXY Collected: 09/19/2017 Status: F Source: [facility] 1:18 AM [facility] REPOSITORY TYPE CODE TESTS RESULT OUT OF REFERENCE UNITS RANGE LAB VITD 31.0-80.0 ng/mL Low Vitamin D 25 6.2 Hydroxy Result Comment: Classification of 25 [place] Vitamin D status: Insufficiency/Moderate Deficiency: < or = 30 ng/mL Sufficiency/Optimal Levels: 31 to 80 ng/mL Toxicity: > 100 ng/mL Test performed by chemiluminescent immunoassay. Performed By: #### IRON, MG1, FT4, B12, FERR, TSH, CMP, VITD, CBCDIF #### [facility] Proenza Schouer [address] [place], [place] [address] CBC AND DIFFERENTIAL Collected: 09/19/2017 Status: F Source: GWINN 1:[address] [place] [address] REPOSITORY TYPE CODE TESTS RESULT OUT OF REFERENCE UNITS RANGE LAB WBC 3.70-11.00 k/uL WBC 30.59 High LAB RBC 4.20-6.00 m/uL RBC 6.87 High LAB HGB 13.0-17.0 g/dL Hemoglobin 12.0 Low LAB HCT 39.0-51.0 % Hematocrit 41.6 LAB MCV 80.0-100.0 fL MCV 60.6 Low LAB MCH 26.0-34.0 pG MCH 17.5 Low LAB MCHC 30.5-36.0 g/dL MCHC 28.8 Low LAB RDWCV 11.5-15.0 % RDW-CV 24.2 High LAB PLTCT 150-400 k/uL Platelet Count 1268 High LAB MPV 9.0-12.7 fL MPV 8.8 Low LAB ANEUT % Neut% 93.0 LAB AANEUT 1.45-7.50 k/uL Abs Neut 28.45 High LAB ALYMP % Lymph% 0.9 LAB AALYMP 1.00-4.00 k/uL Abs Lymph 0.28 Low LAB AMONO % Preston% 5.2 LAB AAMONO <0.87 k/uL Abs Preston 1.59 High LAB AEOS % Eosin% 0.0 LAB AAEOS <0.46 k/uL Abs Eosin 0.00 LAB ABASO % Baso% 0.9 LAB AABASO <0.11 k/uL Abs Baso 0.28 High LAB NRBC 0 /100 WBC NRBCs 1 High LAB ANIIMI Anisocytosis Present LAB GNTPLW Giant Platelets Occasional LAB OVAIMI Ovalocytes Few LAB POLIMI Polychromasia Slight LAB RCFIMI RBC Fragments Few LAB TEAIMI Tear Drop Few Cells LAB PLTEST Platelet Estimate Platelet estimate increased LAB DTYP DTYPE Manual Diff Performed By: #### IRON, MG1, FT4, B12, FERR, TSH, CMP, VITD, CBCDIF #### [address] [address] TYPE AND SCREEN Collected: 09/19/2017 Status: F Source: GWINN 1:17 AM [facility] REPOSITORY TYPE CODE TESTS RESULT OUT OF REFERENCE UNITS RANGE LAB %ABR O ABO/RH(D) POSITIVE LAB % Antibody NEG Screen Performed By: #### TSCR #### [place] [address] CBC Collected: 09/18/2017 Status: F Source: GWINN 10:22 PM [facility] REPOSITORY TYPE CODE TESTS RESULT OUT OF REFERENCE UNITS RANGE LAB WBC 3.70-11.00 k/uL WBC High 36.45 LAB RBC 4.20-6.00 m/uL RBC High 7.11 LAB HGB 13.0-17.0 g/dL Low Hemoglobin 12.4 LAB HCT 39.0-51.0 % Hematocrit 43.3 LAB MCV 80.0-100.0 fL Low MCV 60.9 LAB MCH 26.0-34.0 pG Low MCH 17.4 LAB MCHC 30.5-36.0 g/dL Low MCHC 28.6 LAB RDWCV 11.5-15.0 % RDW-CV High 24.5 LAB PLTCT 150-400 k/uL Platelet High Count 1355 LAB MPV 9.0-12.7 fL Low MPV 8.5 LAB ABSNUC <0.01 k/uL Absolute High nRBC 0.02 LAB REVW Review Done Performed By: #### CBC #### [address] [address] NURSING PROG Observed: 09/18/2017 Status: COMPLETED Source: GWINN 9:36 PM [facility] REPOSITORY HNO ID: [id number] Author: Tl Michelle RN Service: (none) Author Type: Registered Nurse Type: Nursing Progress Note Filed: 09/18/2017 9:38 PM Note Text: Nursing Progress Note Patient Name: Sabina Flores Patient Location: [place] [address]- Daily Note: 2130 Sepsis alert flagged, WBC 45.29, PT INR 2.2, BP 147/77. Paged Catalino Nights. This note was completed by: Viviana Fairchild RN URINALYSIS WITH Collected: 09/18/2017 Status: F Source: [facility]INN MICROSCOPIC 8:53 PM [facility] REPOSITORY TYPE CODE TESTS RESULT OUT OF RANGE REFERENCE UNITS LAB UCOL Yellow Color Yellow LAB [facility] Clear Clarity Clear LAB UGLUC Negative mg/dL Glucose, Urine Negative LAB UBIL Negative Bilirubin, Urine Negative LAB UKET Negative Ketones, Abnormal Urine 1+ Alert LAB USPG 1.005-1.030 Specific [place], Ur 1.023 LAB UHGB Negative Hemoglobin/Blood, Negative Ur LAB UPH 4.5-8.0 pH 5.0 LAB UPROT Negative mg/dL Protein, Urine Negative LAB UUROB Normal Urobilinogen Normal LAB UNITR Negative Nitrites Negative LAB ULKEST Negative Leukest Abnormal Trace Alert LAB UCOM Comments SEE COMMENT Result Comment: N/A LAB UMCOM Urine SEE Noemi Comment COMMENT Result Comment: N/A LAB UWBC 0-5 /HPF WBC 0-5 LAB URBC 0-3 /HPF RBC 0-3 Performed By: #### UAWMIC #### [facility] [address] [place], [place] [address] Observed: 09/18/2017 Status: F Source: GWINN URINE CULTURE 8:53 PM [facility] REPOSITORY Sp. Request/Comment: - Specimen received in preservative Culture Result - No growth (<1,000 CFU/ml) Performed By: #### URCUL #### [facility] Proenza Schouer [address] [place] [id number] LACTATE Collected: 09/18/2017 Status: F Source: GWINN 7:42 PM [facility] REPOSITORY TYPE CODE TESTS RESULT OUT OF REFERENCE UNITS RANGE LAB LACT 0.5-2.2 mmol/L Lactate 1.6 Performed By: #### LACT, PROCAL, CMP, MG1, NTBNP, GABRIELE, WSR #### [facility] Proenza Schouer [facility] [place] [id number] PROCALCITONIN Collected: 09/18/2017 Status: F Source: GWINN 7:42 PM [facility] REPOSITORY TYPE CODE TESTS RESULT OUT OF REFERENCE UNITS RANGE LAB PROCLT <0.09 ng/mL Procalcitonin High 0.20 Result Comment: For a guided interpretation of test results, please visit the Change in Procalcitonin Calculator, [email or web address]. Performed By: #### LACT, PROCAL, CMP, MG1, NTBNP, GABRIELE, WSR #### [facility] Proenza Schouer [facility] [place] [id number] COMP METABOLIC PANEL Collected: 09/18/2017 Status: F Source: GWINN 7:42 PM [facility] REPOSITORY TYPE CODE TESTS RESULT OUT OF REFERENCE UNITS RANGE LAB TP 6.3-8.0 g/dL Low Protein, Total 6.2 LAB ALB 3.9-4.9 g/dL Low Albumin 3.3 LAB CA 8.5-10.2 mg/dL Calcium, Total 9.0 LAB TBIL 0.2-1.3 mg/dL Bilirubin, Total 0.4 LAB ALKP 36-108 U/L Alkaline High Phosphatase 114 LAB AST 14-40 U/L AST 17 LAB GLU 74-99 mg/dL Glucose 97 Result Comment: The [place] [employer] (ADA) provides guidance for cutoff values for fasting glucose and random glucose. The ADA defines fasting as no caloric intake for at least 8 hours. Fas ting plasma glucose results between 100 to 125 mg/dL indicate increased risk for diabetes (prediabetes). Fasting plasma glucose results greater than or equal to 126 mg/dL meet the criteria for diagnosis of diabetes. In the absence of unequivocal hyperglycemia, results should be confirmed by repeat testing. In a patient with classic symptoms of hyperglycemia or hyperglycemic crisis, random plasma glucose results greater than or equal to 200 mg/dL meet the criteria for diagnosis of diabetes. Reference: Standards of Medical Care in Diabetes 2016, [place] [employer]. Diabetes Care. 2016.39(Suppl 1). LAB BUN 9-24 mg/dL BUN 15 LAB CRET 0.73-1.22 mg/dL Creatinine 1.08 LAB NA 136-144 mmol/L Sodium 143 LAB K 3.7-5.1 mmol/L Potassium 4.9 LAB CL 97-105 mmol/L Chloride 104 LAB CO2 22-30 mmol/L Low CO2 19 LAB AGAP 9-18 mmol/L Anion Gap High 20 LAB ALT 10-54 U/L ALT 10 LAB GFRAA eGFR- Amer. >60 LAB GFRNAA . eGFR-All Other Races >60 Result Comment: eGFR (Estimated GFR) Units of measure: mL/min/1.73 meters squared eGFR is derived from the reexpressed MDRD Study equation using the following parameters: serum creatinine, age, gender and race. The creatinine assay has been calibrated to be traceable to IDMS. An eGFR <60 mL/min/1.73m2 for >3 months is consistent with chronic kidney disease. Refer to KDOQI guidelines for clinical interpretation. In patients with unstable renal function, e.g. those with acute kidney injury, the eGFR may not accurately reflect actual GFR. Performed By: #### LACT, PROCAL, CMP, MG1, NTBNP, GABRIELE, WSR #### [facility] Proenza Schouer [address] [place], [place] [address] MAGNESIUM Collected: 09/18/2017 Status: F Source: GWINN 7:42 PM [facility] REPOSITORY TYPE CODE TESTS RESULT OUT OF REFERENCE UNITS RANGE LAB MG 1.7-2.3 mg/dL Magnesium 2.2 Performed By: #### LACT, PROCAL, CMP, MG1, NTBNP, GABRIELE, WSR #### [facility] Proenza Schouer [address] [place], [place] [address] NT PRO BNP Collected: 09/18/2017 Status: F Source: GWINN 7:42 PM [facility] REPOSITORY TYPE CODE TESTS RESULT OUT OF REFERENCE UNITS RANGE LAB PBNP <450 pg/mL High PRO B Natr 3122 Peptide Performed By: #### LACT, PROCAL, CMP, MG1, NTBNP, GABRIELE, WSR #### [place] [address] [place] [id number] TROPONIN T Collected: 09/18/2017 Status: F Source: GWINN 7:42 PM [facility] REPOSITORY TYPE CODE TESTS RESULT OUT OF REFERENCE UNITS RANGE LAB TROPT 0.000-0.029 ng/mL Troponin T <0.010 Performed By: #### LACT, PROCAL, CMP, MG1, NTBNP, GABRIELE, WSR #### [place] [id number] SED RATE WESTERGREN Collected: 09/18/2017 Status: F Source: GWINN 7:42 PM [facility] REPOSITORY TYPE CODE TESTS RESULT OUT OF REFERENCE UNITS RANGE LAB WSR 0-15 mm/hr Sed Rate Westergren 2 Performed By: #### LACT, PROCAL, CMP, MG1, NTBNP, GABRIELE, WSR #### [place] [address] C-REACTIVE PROTEIN Collected: 09/18/2017 Status: F Source: GWINN 7:42 [facility] REPOSITORY TYPE CODE TESTS RESULT OUT OF REFERENCE UNITS RANGE LAB CRP <0.9 mg/dL High C-Reactive 1.1 Protein Performed By: #### CRP #### [place] [id number] STAFF REV W CBCDIF Collected: 09/18/2017 Status: F Source: GWINN 7:40 PM [facility] REPOSITORY TYPE CODE TESTS RESULT OUT OF RANGE REFERENCE UNITS LAB WBC 3.70-11.00 k/uL High WBC 45.29 Result Comment: Result checked and verified No clot detected. LAB RBC 4.20-6.00 m/uL RBC High 7.88 LAB HGB 13.0-17.0 g/dL Hemoglobin 13.9 LAB HCT 39.0-51.0 % Hematocrit 48.8 LAB MCV 80.0-100.0 fL MCV Low 61.9 LAB MCH 26.0-34.0 pG MCH Low 17.6 LAB MCHC 30.5-36.0 g/dL MCHC Low 28.5 LAB RDWCV 11.5-15.0 % RDW-CV High 25.4 LAB PLTCT 150-400 k/uL Platelet High Count 1665 Result Comment: Reviewed LAB MPV 9.0-12.7 fL Low MPV 8.4 LAB ANEUT % Neut% 84.0 Result Comment: See Staff Review LAB AANEUT 1.45-7.50 k/uL Abs Neut 38.04 High LAB ALYMP % Lymph% 3.0 LAB AALYMP 1.00-4.00 k/uL Abs Lymph 1.36 LAB AMONO % Preston% 9.0 LAB AAMONO <0.87 k/uL Abs Preston 4.08 High LAB AEOS % Eosin% 1.0 LAB AAEOS <0.46 k/uL Abs Eosin 0.45 LAB ABASO % Baso% 0.0 LAB AABASO <0.11 k/uL Abs Baso 0.00 LAB ABIMMG k/uL 38.04 ANC(includeSEG+BAN D) LAB AMETA % Spring% 3.0 LAB ANIIMI Anisocytosis Present LAB LFTIMI Left Shift Present LAB GNTPLW Giant Platelets Occasional LAB OVAIMI Ovalocytes Few LAB AGPLTW Agranular Platelets Occasional LAB POLIMI Polychromasia Slight LAB RCFIMI RBC Fragments Few LAB PLTEST Platelet Estimate Platelet estimate increased LAB DTYP DTYPE Manual Diff LAB SREVW Staff Review SEE COMMENT Result Comment: Microcytic hypochromic red cells without anemia Leukoerythroblastic Changes Absolute Monocytosis Thrombocytosis LAB SRPATH Pathologist Reviewed by Araseli Guerin MD, PhD. ([id number]) Performed By: #### STREV #### [facility] [address] [place], [place] [address] PROTIME Collected: 09/18/2017 Status: F Source: GWINN 7:38 PM [facility] REPOSITORY TYPE CODE TESTS RESULT OUT OF RANGE REFERENCE UNITS LAB PSEC 9.7-13.0 sec High PT Sec 21.9 LAB INR 0.9-1.3 High PT INR 2.2 Result Comment: Vitamin K Antagonist (VKA) Therapeutic Range: INR 2 to 3 (Target INR of 2.5) Note: For patients treated with VKA drugs, such as warfarin, the [place] [employer] 2012 Guideline recommends a therapeutic INR range of 2 to 3 (target INR of 2.5). This recommendation includes high-risk patients with antiphospholipid syndrome with previous arterial or venous thromboembolism, current-generation mechanical or bioprosthetic aortic heart valve replacement. Note: Patients with mechanical aortic valve replacement and additional risk factors for thromboembolic events (atrial fibrillation, previous thromboembolism, LV dysfunction, hypercoagulable conditions) or an older generation mechanical AVR (i.e., ball in-Cage) or any mechanical MVR should have a INR therapeutic range of 2.5 to 3.5 (target INR of 3). Belkys GH, et al. Chest 2012, 141:7S-47S Caridad MARTINEZ et al. [facility] 2017, 70: 252-289 Performed By: #### PT, PTT, PHOS #### [facility] Proenza Schouer [address] [place], [place] [address] APTT Collected: 09/18/2017 Status: F Source: GWINN 7:38 PM [facility] REPOSITORY TYPE CODE TESTS RESULT OUT OF RANGE REFERENCE UNITS LAB APTT 23.0-32.4 sec High APTT 43.3 Result Comment: Unfractionated Heparin Therapeutic Ranges: Standard Heparin Nomogram: 53 to 78 seconds (anti-Xa level of 0.3 to 0.7 U/ml) Low Dose/ACS Nomogram: 49 to 67 seconds (anti-Xa level of 0.2 to 0.5 U/ml) Stroke Treatment Nomogram: 49 to 67 seconds (anti-Xa level of 0.2 to 0.5 U/ml) Note: The APTT therapeutic range has been determined for the current lot of laboratory APTT reagent in use throughout the [facility]. Performed By: #### PT, PTT, PHOS #### [facility] Proenza Schouer [address] [place], [place] [id number] PHOSPHORUS Collected: 09/18/2017 Status: F Source: GWINN 7:38 PM [facility] REPOSITORY TYPE CODE TESTS RESULT OUT OF REFERENCE UNITS RANGE LAB PHOS 2.7-4.8 mg/dL Phosphorus 3.1 Performed By: #### PT, PTT, PHOS #### [facility] [address] [place] [address] Observed: 09/18/2017 Status: F Source: GWINN BLOOD CULTURE 7:37 PM [facility] REPOSITORY Culture Result - No growth 5 days Performed By: #### BLCUL #### [facility] [address] [place] [address] Observed: 09/18/2017 Status: F Source: GWINN BLOOD CULTURE 7:26 PM [facility] REPOSITORY Sp. Request/Comment: - The blood culture bottles are underfilled. Adding volume lower or higher than the 8 to 10 mL per bottle, which is the manufacturers recommended volume, may adversely affect the re covery and/or detection of organisms. 11.3ML Culture Result - No growth 5 days Performed By: #### BLCUL #### [facility] [address] [place] [address] PROGRESS Observed: 09/18/2017 Status: COMPLETED Source: GWINN 6:59 PM [facility] REPOSITORY O ID: [id number] Author: Tino () Lionel Delaney Service: (none) Author Type: Pig Caster Type: Progress Notes Filed: 09/18/2017 6:59 PM Note Text: Radiology Service Progress Note PATIENT NAME: Sabina Flores DATE OF SERVICE: September 18, 2017 TIME: 6:59 PM PATIENT IDENTITY VERIFICATION COMPLETED USING TWO (2) METHODS: Patient confirmed name verbally and ID band matches.. PATIENT GENDER DATA: Male PATIENT RELEVANT IMPLANT DATA REVIEWED: Not Applicable RADIOLOGY DEPARTMENT: General X-ray: Exam(s) Completed: Chest X-Ray PERIPHERAL IV DATA: Not applicable SIGNED BY: RT Rox September 18, 2017 6:59 PM XR CHEST 2V FRONTAL/LAT Observed: 09/18/2017 Status: F Source: GWINN 6:57 PM [facility] REPOSITORY * * *Final Report* * * DATE OF EXAM: Sep 18 2017 6:57PM MATTHEW [id number] - XR CHEST 2V FRONTAL/LAT / PROCEDURE REASON: Shortness of breath * * * * Physician Interpretation * * * * EXAMINATION: CHEST RADIOGRAPH (2 VIEW FRONTAL and LATERAL) Clinical History: Shortness of breath MQ: XC2_5 Comparison: 08/15/2016 RESULT: Lines, tubes, and devices: None. Lungs and pleura: Tiny pleural effusions and/or pleural thickening have increased. Increased left basilar atelectatic changes. Prominence of the lung markings along the medial aspect of the bases could be due to crowded vessels given the low lung volume. Underlying mild interstitial edema or inflammation cannot be entirely excluded. No consolidation or mass lesion. No pneumothorax. Cardiomediastinal silhouette: Heart within normal. Thoracic aorta is mildly tortuous. There are findings compatible with remote granulomatous infection in the chest. [ ] Other: . IMPRESSION: As above Lining Scrubber: OTIS Transcribe Date/Time: Sep 19 2017 12:21A Dictated by : CLAUDIA VALE MD This examination was interpreted and the report reviewed and electronically signed by: CLAUDIA VALE MD on Sep 19 2017 12:22AM EST [id number] HISTORY PHYSICAL Observed: 09/18/2017 Status: COMPLETED Source: GWINN 6:33 PM [facility] REPOSITORY HNO ID: [id number] Author: Hernesto Sarkar Service: Hospital Medicine Author Type: Physician Type: HANDP Filed: 09/18/2017 6:39 PM Note Text: [facility] STAFF PHYSICIAN NOTE OF PERSONAL INVOLVEMENT IN CARE Chart reviewed, patient examined, and agree with the documented findings and plan of care. Mr. 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 No Pneumomediastinum. He has thrombocytosis, and presumably severe iron deficiency - wonder if dysphagia is due to Mary Yadiel vs. stricture. He has history of gastrectomy - which poses him at risk for B12 deficiency, but also iron deficiency due to hypochlorhydria. Plan: - Will repeat EGD and may also need UGI. - OK to continue abx for now due to concern for possible aspiration; check procalcitonin. - Optimize COPD management - Add LABA/LAMA. He is not in exacerbation - has no wheezing on exam and is moving air appropriately and speaking in full sentences. - Nonetheless, will assess for cardiac causes of SOB - check EKG, ECHO, NT-pro-BNP, as well as cycle troponins x 2. - Nutrition consult - Delirium care path for proactive prevention. Full resident note to follow. Hernesto Sarkar MD FAAP FACP [facility] Internal Medicine-[facility] Medicine/IMPACT Pager: KI Date of Service: September 18, 2017 Time of Service: 6:33 PM CONSULT PROG Observed: 09/18/2017 Status: COMPLETED Source: GWINN 5:54 PM [facility] REPOSITORY O ID: [id number] Author: Deni Vela (Pharmacist) Service: Pharmacy Author Type: Pharmacist Type: Consult Progress Note Filed: 09/18/2017 5:56 PM Note Text: PHARMACY VANCOMYCIN DOSING NOTE Patient Name: Sabina Flores Admission Date: 09/18/2017 Date of Consult: 09/18/2017 Time of Consult: 5:54 PM Indication: Bloodstream infection Goal Range: 10-20 mcg/mL RECOMMENDATIONS/PLAN: Pharmacy consulted for vancomycin dosing for Sabina Flores, a 77 year old, male who is being treated with vancomycin for bloodstream infections 1. Patient is currently ordered Vancomycin 750 mg IV q12h. Today is day 1 of therapy. 2. No vancomycin level has been drawn for this dosing regimen. 3. Will adjust vancomycin to 750 mg with a dosing interval of q24h for age of 77 yrs 4. The next vancomycin level will be ordered for 09/22/17 unless clinically indicated sooner. (Pharmacy will order) We will follow patient renal function, vancomycin levels and doses with you during the course of therapy. Additional recommendations will appear in follow up notes. If you have any questions, [place] [phone]. Age: [age] year old Allergies: ALLERGIES No Known Allergies Last 3 Encounter Wt Readings: Date: Wt: 09/18/2017 53.7 kg (118 lb 6.2 oz) 04/11/2017 55.8 kg (123 lb) 01/02/2017 55.8 kg (123 lb) Last 1 Encounter Ht Readings: Date: Ht: 09/18/2017 180.3 cm (5' 11) CrCl: 48.4 mL/min Temp (24hrs), Av.5 ?C (97.7 ?F), Min:36.5 ?C (97.7 ?F), Max:36.5 ?C (97.7 ?F) - Current Temp: 36.5 ?C (97.7 ?F) Labs BUN (mg/dL) Date Value 08/15/2016 9 02/10/2015 13 04/07/2014 11 Creatinine (mg/dL) Date Value 08/15/2016 0.97 02/10/2015 1.06 04/07/2014 0.98 WBC (k/uL) Date Value 08/15/2016 11.30 (H) 08/17/2015 8.53 02/10/2015 7.47 Vancomycin Levels: No results found for: Tam Duran HISTORY PHYSICAL Observed: 09/18/2017 Status: COMPLETED Source: GWINN 5:01 PM [facility] REPOSITORY HNO ID: [id number] Author: Teressa Alarcon Service: General Internal Medicine Author Type: Resident Type: HANDP Filed: 09/19/2017 8:13 AM Note Text: Attestation signed by Hernesto Sarkar at 09/19/2017 2:08 PM [facility] STAFF PHYSICIAN NOTE OF PERSONAL INVOLVEMENT IN CARE Chart reviewed, patient examined, and perry elements of history and physical examination of the patient confirmed and agree with the documented findings and plan of care. See my note on 09/18/17. Hernesto Sarkar MD FAAP FACP [facility] Internal Medicine-Pediatrics Hospital Medicine/IMPACT Pager: VAURONM Date of Service: September 18, 2017 HISTORY AND PHYSICAL EXAMINATION For questions regarding this patient for today, [place] [phone]. 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 Active Hospital Problems Diagnosis - Leukocytosis - on cipro/flagyl at OSH as well as zosyn started prior to transfer - sputum culture at OSH 09/16 positive for amlik albicans (presumptive) - DDx includes infection vs malignancy Plan: - f/u CBC with staff review - f/u CRP, ESR, procalcitonin, lactate - f/u UA with urine culture - f/u iron studies, ferritin, vitamin B12 - cont vanc/zosyn, plan to de-escalate after 3 days if no source found - t/c ID c/s - Thrombocytosis (HCC) - 432k in 01/2015, progressively rising. 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 Plan: - EGD dilation general anesthesia (concern about patient tolerating procedure while awake) - NPO with IVF - GI c/s - Shortness of breath - DDx includes COPD, aspiration, pulmonary edema, ?ILD - on nocturnal oxygen PRN at home Plan: - f/u NT pro-BNP, TTE, EKG, troponin T - CXR - Tachycardia Plan: - f/u EKG, TTE - f/u TSH and free T4 - History of peptic ulcer - s/p partial gastrectomy 1971 Plan: - PPI (IV while NPO) - COPD (chronic obstructive pulmonary disease) (HCC) - productive cough improving, denies fevers/chills - does not appear to be COPD exacerbation on admission - at home on ventolin PRN and stiolto daily Plan: - start spiriva and breo-ellipta - duoneb and albuterol PRN - Dysphagia - Former tobacco use - S/P partial gastrectomy - Malignant neoplasm of larynx (HCC) - 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 April 2014, 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 On nocturnal oxygen PRN - thrombocytosis - alcohol abuse - PUD s/p partial gastrectomy 1971 He presented to an OSH on 09/13/17 with complaints of shortness of breath and nausea. There was initially concern of acute enteritis vs ileus so he was started on cipro/flagyl. He also had an episode of impacted foreign body (iron pill) in his esophagus for which he underwent EGD (see below). He was offered PEG tube at the OSH but patient refused. There was also concern for COPD exacerbation and patient was given 1 dose of IV solu-medrol 40mg after he developed shortness of breath after esophagoscopy requiring 5-6L of O2 with pulse ox 93% and tachycardic and tachypneic and ABG 7.39/35.8/75 on 50% FiO2. He was also given IV iron (venofer x1) and started on oral iron for iron deficiency anemia. At the OSH there was concern for aspiration pneumonia so he was placed on ciprofloxacin and zosyn (started 09/18) prior to transfer. Per review of the OSH records, during his admission he was prescribed IV PPI, cipro, duoneb, flagyl, potassium chloride, lovenox, solu-medrol, zosyn, magnesium hydroxide, tylenol, ventolin, zofran, morphine PRN. Per OSH discharge summary: Patient is a 77-year-old gentleman with multiple comorbidities including COPD, throat cancer in August 2016 for which he received radiation therapy history of partial gastrectomy on account of bleeding ulcer presented with shortness of breath with associated nausea but no vomiting. An assessment of acute enteritis made treated symptomatically. Patient was also found to have an impacted foreign body attributed to suspected pill esophagitis versus obstruction. Patient underwent EGD the scope apparently could not be advanced beyond the suspected area of stricture and did not tolerate upper GI swallow study ordered on 09/17/2017. Did discuss his current condition with him he requested to be transferred to [facility] where he had previously received care. 1. Acute hypoxic respiratory failure secondary to COPD exacerbation suspected aspiration pneumonia imaging studies obtained on admission demonstrated COPD/emphysema with bronchiectasis as well as Findings concerning for developing infiltrate or mass in the right midlung field. Evaluation with CT ordered. With ciprofloxacin as well as Zosyn as stated above patient was transferred to [facility] 2. Acute enteritis suspected to be viral enteritis treated symptomatically 3. Suspected esophageal stricture and underwent EGD by Dr. Becerril the scope apparently could not be advanced beyond the suspected area of stricture patient will tolerate upper GI swallow study on 09/17/2017 4. Right mid lung mass CT of the chest with contrast ordered for subsequent evaluation as recommended by radiology 5. Acute kidney injury resolved 6. Thrombocytosis possibly reactive patient has anemia with microcytosis; 7. DVT Prophylaxis; enoxaparin 8. Severe protein calorie malnutrition as evidenced by patient low BMI of 15.7, decreased energy level and muscle wasting consultation placed CT Chest 09/17/17: Small bilateral pleural effusions. Bibasilar atelectasis and/or early infiltrate superimposed on chronic interstitial scarring. Increased interstitial markings are also seen in the posterior aspect of the right upper lobe suggestive scarring. There is evidence of emphysematous changes in the upper lobes. Focal linear scarring is also seen in the left apex. There is a faint nodular density measuring 7.6 mm in the anterior aspect of the right upper lobe as seen on image #79 on the axial images. There are calcifications of the coronary arteries. Normal mediastinum. Enlarged right hilar lymph node measuring 2.3 cm. This is unchanged. Normal enhanced pulmonary arteries. There is atherosclerotic calcification of the aortic arch . There are multi-level degenerative changes of the thoracic spine. There is no demonstrated abnormality of the visualized upper abdomen. CT A/P 09/13/17: Emphysematous changes in the lung bases without acute findings. Small amount of scarring in the left lung base. The visualized portions of the heart are within normal limits. There is decreased attenuation of the liver consistent with steatosis. Normal gallbladder and extrahepatic biliary system. There is moderate splenomegaly. Somewhat heterogeneous enhancement pattern of the spleen however, likely due to arterial phase exam. Normal pancreas. Normal bilateral adrenal glands. Normal right kidney. Normal left kidney. There is a small hiatal hernia. Scattered fluid-filled loops of small bowel with scattered air-fluid levels. No abnormal dilation. There are multiple colonic diverticula consistent with diverticulosis. The appendix is visualized and appears normal. There is diffuse atherosclerotic calcification of the abdominal aorta, without a demonstrated aneurysm. Normal inferior vena cava. Normal retroperitoneum. Normal urinary bladder. There is enlargement of the prostate gland. Normal abdominal wall. There are diffuse degenerative changes of the visualized lumbar spine. Esophagoscopy with foreign body removal 09/14/17: The patient was brought back to the operating room and MAC anesthesia was administered by anesthesia. The EGD scope was placed into the mouth and into the pharynx. This was guided into the proximal esophagus where an obstruction and was met. While trying to use the 3-prong graspers to grasp the pill it slid forward into the distal esophagus into pieces. The scope was advanced through the stricture and was barely able to fit. The esophageal tissue was friable and there was some minor bleeding. The scope was withdrawn and this bleeding was monitored and it was felt to be very minor. The scope was slowly withdrawn and the patient was awoken and taken to PACU in stable condition. For fear of worsening the bleeding I did not pass the scope beyond the midesophagus Labs 09/18/17: LAB L100.1000 WBC 42.9 High alert 4.4-11.0 K/mm3 Result Comment: RESULTS CALLED TO HAMIDA LOOMIS MS-3 09/18/17 0657 Kenney Ramos. REPORT READ BACK BY SAME . LAB L100.1200 RBC 7.35 High 4.6-6.2 M/mm3 LAB L100.1300 HGB 13.0 Normal 13.0-16.5 g/dl LAB L100.1400 HCT 44.0 Normal 40-54 % LAB L100.1500 MCV 59.9 Low 80-94 fL LAB L100.1600 MCH 17.7 Low 27.0-32.0 pg LAB L100.1700 MCHC 29.5 Low 32-36 g/gl LAB L100.1810 RDW CV 22.3 High 11.6-14.6 % LAB L100.1820 RDW SD 43.0 Normal 35.1-43.9 fl LAB L100.1900 PLT 1427 High alert 150-450 K/mm3 Result Comment: RESULTS CALLED TO HAMIDA LOOMIS MS-3 09/18/17 0658 Kenney Ramos. REPORT READ BACK BY SAME . LAB L100.2000 MPV 8.7 Normal 6.2-12.0 fl LAB L100.4500 SMEAR COMMENT SEE COMMENT Normal ? ? Result Comment: PLTS=MKD INCREASE ANISOCYTOSIS=1+ MICROCYTOSIS=1+ Performed By: #### L100.0500, L100.4500 #### [facility] HospitalS[facility] Hagen. [place], [place], [id number] BASIC METABOLIC PROFILE (BMP) Collected: 09/18/2017 6:25 AM Status: F Source: [facility] REPOSITORY TYPE CODE TESTS RESULT OUT OF RANGE REFERENCE UNITS LAB L501.0100 GLU 113 High 74-106 mg/dL Result Comment: Fasting Glucose result from 100 to 125 mg/dL suggests IMPAIRED HOMEOSTASIS per A.D.A. criteria. Please note revised GLUCOSE reference range effective 2017. LAB L501.1000 BUN 13 Normal 7-18 mg/dL LAB L501.1100 CREAT,SERUM 0.88 Normal 0.70-1.30 mg/dL Result Comment: The validity of the calculated GFR AND GFRAA in patients over 70 years has not been determined. Clinical correlation is essential. LAB L501.1110 EST GFR 89 Normal >60 mL/min Result Comment: Non- GFR Calc LAB L501.1115 EST GFR - AA 108 Normal >60 mL/min Result Comment: GFR Calc LAB L501.1255 Estimated CRCL 50.81 Normal ? ml/min LAB L501.1300 BUN/CRE 14.8 Normal 10-20 RATIO LAB L501.2200 CA 8.6 Normal 8.5-10.1 mg/dL LAB L501.5300 NA 141 Normal 136-145 mmol/L LAB L501.5600 K 4.8 Normal 3.5-5.1 mmol/L LAB L501.5900 CL 108 High 98-107 mmol/L LAB L501.6100 CO2 16.0 Low 21.0-32.0 mmol/L LAB L501.6200 GAP 17 High 5-15 ? 09/14/17: TIBC 269 (normal) Iron 14 (low) Iron sat 5.2 (low) Ferritin 15 (low) WBC 19.1 Hgb 10.5 MCV 61.0 Plt count 1164 09/16/17 sputum gram statin presumptive C albicans Per records, as an outpatient patient takes ventolin 5-6x per week, and stiolto on a daily basis. Per patient: He has had 2 weeks of shortness of breath that has progressively worsened though is now stable. He believes he was diagnosed with pneumonia 2 weeks ago (productive cough) and was given antibiotics as an outpatient (not sure what kind, was sick too) and now the productive cough has improved though there is still a residual cough. He has had 6 months of difficulty swallowing; previous to that ~15 years ago he was told they wanted to stretch his larynx but besides that he denies trouble swallowing. He has also had 3 years of intermittent tinnitus and occasional positional dizziness. He denies bleeding He went into the hospital last after he had a pill stuck in his throat (feels like the pill is underneath his manubrium) and pounded on his chest. He then developed trouble breathing. He was eating and drinking at the OSH but then an iron pill got stuck. He had a scope to push the pill through. Since then has been NPO. At the OSH he also states he got some pain medicine and breathing treatments. He requested to be transferred to [facility] because his ENT doctors are here and for further management of the esophageal stricture as they were not allowing him to eat and just giving him IVF (the doctors at [place] did not want to intervene given the previous radiation to the area). He think the steroids helped with the SOB but he is still complaining of SOB and dry mouth/throat. He has not had alcohol for 3 weeks, since he started feeling sick. He previously drank 4 cans of beer a week. 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 - Former tobacco use 09/18/2017 - History of laryngeal cancer 10/27/2014 - Interstitial lung disease (HCC) 02/09/2011 Ct chest 01/2011 - Iron deficiency anemias 01/11/2005 - Malignant neoplasm of larynx (HCC) 05/31/2017 - PEPTIC ULCER NOS 01/11/2005 - PERS HX OF ALCOHOLISM 01/11/2005 - Polycythemia 05/21/2013 - S/P partial gastrectomy 09/18/2017 - Severe protein-calorie malnutrition (HCC) 11/20/2016 - Shortness of breath 09/18/2017 - Squamous cell carcinoma of larynx (HCC) 02/08/2017 - Tobacco use disorder 01/11/2005 - Unspecified asthma(493.90) 03/03/2011 PAST SURGICAL HISTORY: PAST SURGICAL HISTORY Procedure Laterality Date - COLONOSCOP W/ OR W/O BRSH SPEC 2003 Colonoscopy - COLONOSCOP W/ OR W/O BRSH SPEC 02/20/2013 Colonoscopy - COLONOSCOP W/ OR W/O BRSH SPEC 03/30/16 Colonoscopy - EGD W/O OR W/BRUSH/WASH 2003 EGD - EGD W/O OR W/BRUSH/WASH 02/20/13 EGD - ESOPH W/O [facility] SPEC BALLOON DIL 03-30-2004 Esophageal dilatation - LARYNGOSCOPY W/ BIOPSY 02/06/2014 - PARTIAL GASTRECTOMY 1970 - PAST SURGICAL HISTORY OF Left 08/29/2016 Floor of mouth resection, sialadochoplasty FAMILY HISTORY: FAMILY HISTORY Problem Relation Age of Onset - Cancer Brother lung cancer - Cancer Brother bone cancer - Cancer Brother brain tumor or cancer - Coronary Artery Disease Father age 64, [place] - None Mother age 95 SOCIAL HISTORY: Social History Substance Use Topics - Smoking status: Former Smoker Packs/day: 2.00 Years: 52.00 Types: Cigarettes Quit date: 09/01/2013 - Smokeless tobacco: Never Used - Alcohol use 6.0 oz/week 4 Cans of Beer (12oz) per week MEDICATIONS: Prior to Admission Medications Prescriptions Prior to Admission: doxycycline monohydrate (MONODOX) 100 mg capsule Take 100 mg by mouth once daily. Disp: Rfl: tiotropium-olodaterol (STIOLTO RESPIMAT) 2.5-2.5 mcg/actuation mist Inhale 2 Puffs as instructed twice daily. Disp: Rfl: 0 Unknown at Unknown time albuterol HFA (VENTOLIN HFA) 90 mcg/actuation inhaler Inhale 2 Puffs as instructed every 6 hours as needed for Wheezing/Shortness of Breath. Disp: 1 Inhaler Rfl: 6 Unknown at Unknown time CURRENT ALLERGIES: ALLERGIES No Known Allergies COMPLETE REVIEW OF SYSTEMS: GENERAL: No weight loss, fatigue or fevers. HEENT: Had a nocturnal headache last week, No changes in hearing. R eye 2-3 weeks ago noticed that his vision was like looking through a foggy window RESPIRATORY: Positive for cough, shortness of breath. Denies wheezing. CARDIOVASCULAR: Negative for chest pain, leg swelling or palpitations. GI: 1-2 weeks ago had N/V. Negative for diarrhea, or constipation, blood in stool : No history of dysuria, no increased urinary urgency or frequency, no blood in urine MUSCULOSKELETAL: Negative for joint pain or swelling, no myalgias. SKIN: Negative for lesions, rash, and itching. All other reviewed and negative other than HPI. OBJECTIVE PHYSICAL EXAM: Patient Vitals for the past 24 hrs: BP Temp Temp src Pulse Resp SpO2 Height Weight 09/18/17 1543 139/71 36.5 ?C (97.7 ?F) Oral 114 22 94 % 180.3 cm (5' 11) 53.7 kg (118 lb 6.2 oz) Body mass index is 16.51 kg/m?. GENERAL: alert, no distress, cooperative HEAD/SINUSES: No significant findings. EYES: PERRLA and EOMI NOSE: Nares normal. Septum midline NECK: supple LUNGS: Lungs clear to auscultation though with decreased breath sounds bilaterally, no wheezes, no crackles CARDIAC: normal S1 and S2; no rubs, murmurs, or gallops ABDOMEN: Abdomen soft, non-tender, no guarding/rebound. BS normal. EXTREMITIES: Extremities normal. No deformities, edema SKIN: stage 1 coccyx pressure injury The remainder of the physical exam is noncontributory. DATA: Diagnostic tests reviewed for today's visit: Most recent labs and imaging results. See above from OSH. SIGNATURE: Teressa Alarcon MD PATIENT NAME: Sabina Flores DATE: September 18, 2017 TIME: 5:14 PM PAGER/CONTACT #: [phone] CONSULT Observed: 09/18/2017 Status: COMPLETED Source: [facility] 4:43 PM [facility] REPOSITORY HNO ID: [id number] Author: Mellissa Dobbs Service: Otolaryngology Author Type: Resident Type: Consults Filed: 09/18/2017 5:07 PM Note Text: CONSULT HISTORY AND PHYSICAL - OTOLARYNGOLOGY My final recommendations will be shared with the ordering provider via the shared electronic medical record. Consulting Service: ENT Requesting Provider: Dr. 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 Recent CT scan without any pneumomediastinum. On exam, patient is visibly dyspneic on supplemental oxygen but there is no evidence of any obstructive lesions to explain dysphagia or dyspnea. - No surgical intervention required. - Would recommend keeping patient NPO. - Recommend GI assessment for possible dilation/PEG placement. - Discussed with staff, Dr. Giraldo. 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 Patient is poor historian and his is not currently answering her phone, so majority of HPI obtained from OSH records. He was initially admitted to OSH with acute enteritis versus ileus (was on cipro/flagyl). He was also complaining of a foreign body sensation (per patient, he has required esophageal dilation many years ago) and underwent an EGD on 09/14 which showed an impacted pill as well as a stricture in the proximal/mid-esophagus. The scope was unable to be passed past the mid-esophagus. Following the EGD, he was acutely hypoxic and required BiPAP. He has continued to have a leukocytosis (WBC 25K on 09/17/16). He continues to have dyspnea and dysphagia but denies hoarseness or voice changes. PAST MEDICAL HISTORY: PAST MEDICAL HISTORY Diagnosis Date - ABNORMAL LIVER FUNCTION STUDY 01/11/2005 Alkaline phosphatemia - Carcinoma in situ of larynx 02/12/2014 - DIVERTICULOSIS OF COLON W/O BLEED 01/11/2005 - ESOPHAGEAL STRICTURE 01/11/2005 - History of laryngeal cancer 10/27/2014 - Interstitial lung disease (HCC) 02/09/2011 Ct chest 01/2011 - Iron deficiency anemias 01/11/2005 - PEPTIC ULCER NOS 01/11/2005 - PERS HX OF ALCOHOLISM 01/11/2005 - Polycythemia 05/21/2013 - Tobacco use disorder 01/11/2005 - Unspecified asthma(493.90) 03/03/2011 PAST SURGICAL HISTORY: PAST SURGICAL HISTORY Procedure Laterality Date - COLONOSCOP W/ OR W/O BRSH SPEC 2003 Colonoscopy - COLONOSCOP W/ OR W/O BRSH SPEC 02/20/2013 Colonoscopy - COLONOSCOP W/ OR W/O BRSH SPEC 03/30/16 Colonoscopy - EGD W/O OR W/BRUSH/WASH 2003 EGD - EGD W/O OR W/BRUSH/WASH 02/20/13 EGD - ESOPH W/O BRSH SPEC BALLOON DIL 03-30-2004 Esophageal dilatation - LARYNGOSCOPY W/ BIOPSY 02/06/2014 - PARTIAL GASTRECTOMY 1970 - PAST SURGICAL HISTORY OF Left 08/29/2016 Floor of mouth resection, sialadochoplasty FAMILY HISTORY: FAMILY HISTORY Problem Relation Age of Onset - Cancer Brother lung cancer - Cancer Brother bone cancer - Cancer Brother brain tumor or cancer - Coronary Artery Disease Father age 64, [place] - None Mother age 95 SOCIAL HISTORY: Social History Substance Use Topics - Smoking status: Former Smoker Packs/day: 1.50 Years: 52.00 Types: Cigarettes Quit date: 09/01/2013 - Smokeless tobacco: Never Used - Alcohol use 3.0 oz/week 2 Cans of Beer (12oz) per week MEDICATIONS: Prior to Admission Medications: tiotropium-olodaterol (STIOLTO RESPIMAT) 2.5-2.5 mcg/actuation mist Inhale 2 Puffs as instructed twice daily. albuterol HFA (VENTOLIN HFA) 90 mcg/actuation inhaler Inhale 2 Puffs as instructed every 6 hours as needed for Wheezing/Shortness of Breath. No current hospital medications on file. ALLERGIES: ALLERGIES No Known Allergies ROS: All obtained and negative other than HPI PHYSICAL EXAM: Blood pressure 139/71, pulse 114, temperature 36.5 ?C (97.7 ?F), temperature source Oral, resp. rate 22, height 180.3 cm (5' 11), weight 53.7 kg (118 lb 6.2 oz), SpO2 94 %. On physical examination Sabina Flores is a well-developed, well nourished male. His speech is normal and his voice is breathy. Mental status revealed patient to be alert and oriented. Mood is appropriate. Details of the physical examination: CRANIAL NERVE EXAM: II: Pupillary reflexes normal III, IV, : EOM normal V: 1,2,3: normal sensation VII: Normal strength in all divisions. VIII: Hearing grossly normal. IX, X: Breathy voice, normal palatal elevation and sensation XI: Shoulder strength normal XII: Tongue mobility normal HEAD AND FACE: Physical examination of the head, neck, external nose, external ears, mouth and face fails to demonstrate any significant abnormality or asymmetry to critical face to face observation. Skin and scalp are normal. NOSE: Examination of the nasal cavity revealed a septum which is midline. The mucosa is pink, and the visible turbinates are normal on anterior rhinoscopy. There is no purulence or polyps. NASOPHARYNX: No masses or significant adenoid hypertrophy MASTICATION: The lips and gums are without lesions. ORAL CAVITY AND OROPHARYNX: The oral mucosa, hard and soft palates, tongue, tonsil area, and posterior pharyngeal wall are without lesions. LARYNX: Procedure: Flexible laryngoscopy was performed because of the following indication: Poor visualization with mirror and/or the need for high resolution imaging of the larynx and dynamic airway. After spraying the nose with xylocaine/neosynephrine, the flexible scope was placed in a transnasal fashion. The nasopharynx, oropharynx, hypopharynx including the pyriform sinuses were normal other than radiation changes. The base of tongue showed no gross lesions. The larynx itself showed no lesions. The vocal cords moved well bilaterally. NECK: The neck appears symmetric without scars. On palpation, there are no masses or lymphadenopathy. The thyroid is not palpable and was free of masses. No salivary gland masses or hypertrophy is noted. Mellissa Dobbs MD September 18, 2017 4:44 PM NURSING PROG Observed: 09/18/2017 Status: COMPLETED Source: [facility] 3:30 PM [facility] REPOSITORY HNO ID: [id number] Author: Mini (Rn) TL Zuniga Service: (none) Author Type: Registered Nurse Type: Nursing Progress Note Filed: 09/18/2017 3:32 PM Note Text: Nursing Progress Note Patient Name: Sabina Flores Patient Location: G081 033/G081-33 Transfer Note: Patient transferred into room/unit G81-33 in stable condition. Actions taken: No futher actions taken at this time. Will continue to monitor and check with patient. This note was completed by: Mini Zungia RN 12 LEAD ELECTROCARDIOGRAM Observed: 09/18/2017 Status: F Source: [facility] 2:16 PM [facility] Cardiovascular Services [address] [place] [address] 12 Lead EKG 09/13/17 1904 MR#: [id number] Acct: [id number] Name: SABINA FLORES Raúl Rep #: [id number] : 1940 77 From: Maura Johnson MD Attending Dr: Hugo Meza MD Status: DIS IN Ordering Dr: Major Bird MD Date: 09/13/17 Location: [facility] Sex: M C Admitted: 09/13/17 Test Reason : Blood Pressure : / mmHG Vent. Rate : 092 BPM Atrial Rate : 076 BPM P-R Int : 000 ms QRS Dur : 084 ms QT Int : 420 ms P-R-T Axes : 000 -27 -60 degrees QTc Int : 519 ms Atrial fibrillation Low voltage QRS Nonspecific ST and T wave abnormality Prolonged QT Abnormal ECG Reconfirmed by EDER MARQUEZ, MAURA ([id number]), medical transcription editor CINTHYA JOLLEY ([id number]) on 09/18/2017 2:16:21 PM Referred By: Confirmed By:MAURA JOHNSON MD 09/18/17 1416 Date Maura Johnson MD CC: Hugo Meza MD; Major Bird MD; Varun Wang MD Signed DISCHARGE SUMMARY Observed: 09/18/2017 Status: F Source: [facility] 9:47 AM [facility] Medical Records Department [address] [place] [address] Discharge Summary 09/18/17 0946 MR#: [id number] Acct: [id number] Name: SABINA FLORES Rep #: [id number] : 1940 77 From: Hugo Meza MD PCP: Varun Wang MD Status: ADM IN Y Location: MS3 NC800-1 Discharge Date and Diagnosis - Problem List Patient Problems: Active and Suspected Problems (Last Reviewed 05/03/17 @ 09:16 by Carmen Graham) Enteritis (Acute) Ileus (Acute) Leukocytosis (Acute) JULIANA (acute kidney injury) (Acute) Dysphagia (Acute) Foreign body in esophagus (Acute) Date of Admission: 09/13/17 Date of Discharge: 09/18/17 - Primary Discharge Diagnosis Active and Suspected Problems (Last Reviewed 05/03/17 @ 09:16 by Carmen Graham) Enteritis (Acute) Ileus (Acute) Leukocytosis (Acute) JULIANA (acute kidney injury) (Acute) Dysphagia (Acute) Foreign body in esophagus (Acute) - Secondary Discharge Diagnosis Chronic Problems (Last Reviewed 05/03/17 @ 09:16 by Carmen Graham) Hypersomnia (Chronic) COPD (chronic obstructive pulmonary disease) (Chronic) FEV1 51% Nicotine dependence (Chronic) Atypical chest pain (Chronic) History of peptic ulcer disease (Chronic) 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 Nonspecific bowel gas pattern with scattered fluid filled loops of small bowel with scattered air-fluid levels however, no dilation. Gaseous distended loops of colon with fecal retention. Normal appendix. Findings could be related to enteritis/early ileus. 2. Mild to moderate splenomegaly. Electronically Signed: Papi Gleason DO at 21:09 EDT Tel , Service support , KUB X-Ray 09/14/17 18:05 IMPRESSION: No radiopaque foreign body seen. Please note that medication may not be radiopaque. at 1911 Reported and signed by: Cinthya Beck MD Electronically Signed: Cinthya Beck MD at 19:10 EDT Tel , Service support , Abdomen X-Ray 09/15/17 04:40 IMPRESSION: Small bowel ileus Electronically Signed: Flako Zheng MD at 10:31 EDT , Service support , Chest X-Ray 09/15/17 09:04 IMPRESSION: No interval change Electronically Signed: Flako Zheng MD at 10:28 EDT , Service support , Chest CT 09/17/17 08:11 IMPRESSION: Small bilateral pleural effusions with underlying bibasilar atelectasis and/or infiltrate superimposed on scarring in the lower lobes as well as in the upper lobes. Faint nodular density in the anterior aspect of the right upper lobe. Electronically Signed: Jr Desai MD at 12:54 EDT Tel [phone], Service support , 09/16/17 11:00 Sputum, Expectorated/Coughed Gram Stain - Final 09/16/17 11:00 Sputum, Expectorated/Coughed Respiratory Culture - Final Presumptive C albicans Laboratory Results WBC (4.4-11.0) K/mm3 RBC (4.6-6.2) M/mm3 Hgb (13.0-16.5) g/dl Operations: None Summary of Care Provided: Patient is a 77-year-old gentleman with multiple comorbidities including COPD, throat cancer in August 2016 for which he received radiation therapy history of partial gastrectomy on account of bleeding ulcer presented with shortness of breath with associated nausea but no vomiting. An assessment of acute enteritis made treated symptomatically. Patient was also found to have an impacted foreign body attributed to suspected pill esophagitis versus obstruction. Patient underwent EGD the scope apparently could not be advanced beyond the suspected area of stricture and did not tolerate upper GI swallow study ordered on 09/17/2017. Did discuss his current condition with him he requested to be transferred to [facility] where he had previously received care. 1. Acute hypoxic respiratory failure secondary to COPD exacerbation suspected aspiration pneumonia imaging studies obtained on admission demonstrated COPD/emphysema with bronchiectasis as well as Findings concerning for developing infiltrate or mass in the right midlung field. Evaluation with CT ordered. With ciprofloxacin as well as Zosyn as stated above patient was transferred to F 2. Acute enteritis suspected to be viral enteritis treated symptomatically 3. Suspected esophageal stricture and underwent EGD by Dr. Becerril the scope apparently could not be advanced beyond the suspected area of stricture patient will tolerate upper GI swallow study on 09/17/2017 4. Right mid lung mass CT of the chest with contrast ordered for subsequent evaluation as recommended by radiology 5. Acute kidney injury resolved 6. Thrombocytosis possibly reactive patient has anemia with microcytosis; 7. DVT Prophylaxis; enoxaparin 8. Severe protein calorie malnutrition as evidenced by patient low BMI of 15.7, decreased energy level and muscle wasting consultation placed to [place] Home Medications: Medications to take at Discharge Albuterol Inhaler [Ventolin Hfa] 1 - 2 puff INHALATION Q4H PRN PRN 01/02/14 Tiotropium [place] [Spiriva 18 MCG] 1 puff INHALATION DAILY 01/02/14 Albuterol Aerosols [Ventolin Aerosols] 2.5 mg INHALATION Q2H PRN PRN #1 box 11/17/16 Ipratropium/Albuterol Sulfate [Duoneb] 3 ml INHALATION [id number] #1 box 11/17/16 Nebulizer [Lc Plus] 1 ea MC UD #1 ea 11/17/16 tiotropium 2.5 mcg-olodaterol 2.5 mcg/actuation mist for inhalation 2 inh INHALATION QDAY #4 g 08/14/17 Doxycycline 100 mg PO DAILY 09/13/17 Primary Care Physician: Varun Wang MD [Primary Care Provider] - Medical Necessity - Tobacco Use Smoking Status: Former smoker Meaningful Use Info Meaningful Use Diagnoses (Choose all that apply): None applicable Code Visit Inpatient E AND M: 03848 Disch Hosp 09/18/17 0947 <Electronically signed by Hugo Meza MD> Date Hugo Meza MD Cosigner Signature (if applicable): Date CC: Hugo Meza MD; Varun Wang MD Signed CBC-COMPLETE BLOOD CNT Collected: 09/18/2017 Status: C Source: [place] NO DIFF 6:25 [place] [facility] [place] CODE TESTS RESULT OUT OF RANGE REFERENCE UNITS LAB L100.1000 4.4-11.0 K/mm3 High alert WBC 42.9 Result Comment: RESULTS CALLED TO HAMIDA LOOMIS MS-3 09/18/17 0657 Kenney Ramos. REPORT READ BACK BY SAME . LAB L100.1200 4.6-6.2 M/mm3 High RBC 7.35 LAB L100.1300 13.0-16.5 g/dl Normal HGB 13.0 LAB L100.1400 40-54 % Normal HCT 44.0 LAB L100.1500 80-94 fL Low MCV 59.9 LAB L100.1600 27.0-32.0 pg Low MCH 17.7 LAB L100.1700 32-36 g/gl Low MCHC 29.5 LAB L100.1810 11.6-14.6 % High RDW 22.3 CV LAB L100.1820 35.1-43.9 fl Normal RDW 43.0 SD LAB L100.1900 150-450 K/mm3 High alert PLT 1427 Result Comment: RESULTS CALLED TO HAMIDA LOOMIS MS-3 09/18/17 0658 Kenney Ramos. REPORT READ BACK BY SAME . LAB L100.2000 6.2-12.0 fl Normal MPV 8.7 LAB L100.9900 Normal PATH Reviewed REV Result Comment: Neutrophilic leukocytosis with left shift. Microcytosis. Thrombocytosis. Clinical correlation necessary. Chemo Choudhury M.D. 09/18/17 AMENDED REPORT 09/18/17 1258 PATH REV previously reported as: Xiomara salazar Performed By: #### L100.0500, L100.4500 #### [facility] [address] [place] [place], [address] DIFFERENTIAL COMMENT Collected: 09/18/2017 Status: F Source: [place] 6:25 AM [facility] [place] CODE TESTS RESULT OUT OF RANGE REFERENCE UNITS LAB L100.4500 Normal SMEAR COMMENT SEE COMMENT Result Comment: PLTS=MKD INCREASE ANISOCYTOSIS=1+ MICROCYTOSIS=1+ Performed By: #### L100.0500, L100.4500 #### [facility] [address] [place], [place], [address] BASIC METABOLIC Collected: 09/18/2017 Status: F Source: [place] PROFILE (BMP) 6:25 AM [facility] [place] CODE TESTS RESULT OUT OF RANGE REFERENCE UNITS LAB L501.0100 74-106 mg/dL High GLU 113 Result Comment: Fasting Glucose result from 100 to 125 mg/dL suggests IMPAIRED HOMEOSTASIS per A.D.A. criteria. Please note revised GLUCOSE reference range effective 2017. LAB L501.1000 7-18 mg/dL Normal BUN 13 LAB L501.1100 0.70-1.30 mg/dL Normal CREAT,SERUM 0.88 Result Comment: The validity of the calculated GFR AND GFRAA in patients over 70 years has not been determined. Clinical correlation is essential. LAB L501.1110 >60 mL/min Normal EST GFR 89 Result Comment: Non- GFR Calc LAB L501.1115 >60 mL/min Normal EST GFR - AA 108 Result Comment: GFR Calc LAB L501.1255 ml/min Normal Estimated CRCL 50.81 LAB L501.1300 10-20 RATIO Normal BUN/CRE 14.8 LAB L501.2200 8.5-10 mg/dL Normal .1 CA 8.6 LAB L501.5300 136-14 mmol/L Normal 5 NA 141 LAB L501.5600 3.5-5. mmol/L Normal 1 K 4.8 LAB L501.5900 98-107 mmol/L High CL 108 LAB L501.6100 21.0-3 mmol/L Low 2.0 CO2 16.0 LAB L501.6200 5-15 High GAP 17 Performed By: #### L500.2500, L501.5200 #### [facility] [address] [place], [place], [address] MAGNESIUM Collected: 09/18/2017 Status: F Source: [place] 6:25 AM [facility] [place] CODE TESTS RESULT OUT OF RANGE REFERENCE UNITS LAB L501.5200 1.6-2.6 mg/dL Normal MG 2.1 Performed By: #### L500.2500, L501.5200 #### [facility] [address], [address] HOSP Observed: 09/18/2017 Status: COMPLETED Source: GWINN 12:00 AM [facility] [place] REPOSITORY Patient:Sabina Flores MRN: <[id number]> Height:5' 11(1.803 m) Weight:118 lb 6.2 oz (53.7 kg) Outpatient Medications as of 09/21/17: doxycycline monohydrate (MONODOX) 100 mg capsule tiotropium-olodaterol (STIOLTO RESPIMAT) 2.5-2.5 mcg/actuation mist albuterol HFA (VENTOLIN HFA) 90 mcg/actuation inhaler Admission/Clinic Administered Medications as of 09/21/17: potassium chloride 40 mEq CUP enoxaparin 40 mg injection (LOVENOX) mupirocin 2% 0.5 g nasal ointment (BACTROBAN) ergocalciferol (vitamin D2) 50,000 Units cap(s) (DRISDOL) 0.9% NaCl 3-5 mL albuterol 2.5 mg /3 mL (0.083 %) 2.5 mg (PROVENTIL) ipratropium-albuterol 3 mL nebulizer solution (DUONEB) piperacillin-tazobactam 3.375 g in dextrose (iso-osmotic) 50 mL (ZOSYN) pantoprazole 40 mg injection (PROTONIX) dextrose 5% in NaCl 0.45% iv infusion Chlorhexidine Gluconate 0.12 % 15 mL (PERIDEX) tiotropium 18 mcg cap(s) and device for inhalation (SPIRIVA) fluticasone-vilanterol 100-25 mcg/dose 1 Inhalation (BREO ELLIPTA) 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] Back pain, chronic [M54.9, G89.29] History of laryngeal cancer [Z85.21] Hypoxemia [R09.02] Severe protein-calorie malnutrition (HCC) [E43] Thrombocytosis (HCC) [D47.3] Elevated protime [R79.1] Elevated bilirubin [R17] Shortness of breath [R06.02] Body mass index (BMI) less than or equal to 19 in adult [Z68.1] Malignant neoplasm of larynx (HCC) [C32.9] Dysphagia [R13.10] History of peptic ulcer [Z87.11] Nicotine dependence [F17.200] 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] Former tobacco use [Z87.891] S/P partial gastrectomy [Z90.3] Leukocytosis [D72.829] Tachycardia [R00.0] Vitamin D deficiency [E55.9] Hypoalbuminemia [E88.09] Prolonged INR [R79.1] Subclinical hypothyroidism [E03.9] Low serum alkaline phosphatase [R74.8] Allergies: No Known Allergies Date Verified:09/21/17 Lab Values Lab Value Units Date High Low POTA* 3.5 mmol/L 09/21/2017 5.1 3.7 AUGUSTINA* 42.7 % 09/21/2017 51.0 39.0 Progress Notes (): Mini Zuniga RN, RN 09/18/2017 3:32 PM Signed Nursing Progress Note Patient Name: Sabina Flores Patient Location: [place] [address] Transfer Note: Patient transferred into room/unit [facility] in stable condition. Actions taken: No futher actions taken at this time. Will continue to monitor and check with patient. This note was completed by: TL Farley MD 09/18/2017 5:07 PM Signed CONSULT HISTORY AND PHYSICAL - OTOLARYNGOLOGY My final recommendations will be shared with the ordering provider via the shared electronic medical record. Consulting Service: ENT Requesting Provider: Dr. 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 Recent CT scan without any pneumomediastinum. On exam, patient is visibly dyspneic on supplemental oxygen but there is no evidence of any obstructive lesions to explain dysphagia or dyspnea. - No surgical intervention required. - Would recommend keeping patient NPO. - Recommend GI assessment for possible dilation/PEG placement. - Discussed with staff, Dr. Giraldo. 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 Patient is poor historian and his is not currently answering her phone, so majority of HPI obtained from OSH records. He was initially admitted to OSH with acute enteritis versus ileus (was on cipro/flagyl). He was also complaining of a foreign body sensation (per patient, he has required esophageal dilation many years ago) and underwent an EGD on 09/14 which showed an impacted pill as well as a stricture in the proximal/mid-esophagus. The scope was unable to be passed past the mid-esophagus. Following the EGD, he was acutely hypoxic and required BiPAP. He has continued to have a leukocytosis (WBC 25K on 09/17/16). He continues to have dyspnea and dysphagia but denies hoarseness or voice changes. PAST MEDICAL HISTORY: PAST MEDICAL HISTORY Diagnosis Date - ABNORMAL LIVER FUNCTION STUDY 01/11/2005 Alkaline phosphatemia - Carcinoma in situ of larynx 02/12/2014 - DIVERTICULOSIS OF COLON W/O BLEED 01/11/2005 - ESOPHAGEAL STRICTURE 01/11/2005 - History of laryngeal cancer 10/27/2014 - Interstitial lung disease (HCC) 02/09/2011 Ct chest 01/2011 - Iron deficiency anemias 01/11/2005 - PEPTIC ULCER NOS 01/11/2005 - PERS HX OF ALCOHOLISM 01/11/2005 - Polycythemia 05/21/2013 - Tobacco use disorder 01/11/2005 - Unspecified asthma(493.90) 03/03/2011 PAST SURGICAL HISTORY: PAST SURGICAL HISTORY Procedure Laterality Date - COLONOSCOP W/ OR W/O BRSH SPEC 2003 Colonoscopy - COLONOSCOP W/ OR W/O BRSH SPEC 02/20/2013 Colonoscopy - COLONOSCOP W/ OR W/O BRSH SPEC 03/30/16 Colonoscopy - EGD W/O OR W/BRUSH/WASH 2003 EGD - EGD W/O OR W/BRUSH/WASH 02/20/13 EGD - ESOPH W/O BRSH SPEC BALLOON DIL 03-30-2004 Esophageal dilatation - LARYNGOSCOPY W/ BIOPSY 02/06/2014 - PARTIAL GASTRECTOMY 1970 - PAST SURGICAL HISTORY OF Left 08/29/2016 Floor of mouth resection, sialadochoplasty FAMILY HISTORY: FAMILY HISTORY Problem Relation Age of Onset - Cancer Brother lung cancer - Cancer Brother bone cancer - Cancer Brother brain tumor or cancer - Coronary Artery Disease Father age 64, [place] - None Mother age 95 SOCIAL HISTORY: Social History Substance Use Topics - Smoking status: Former Smoker Packs/day: 1.50 Years: 52.00 Types: Cigarettes Quit date: 09/01/2013 - Smokeless tobacco: Never Used - Alcohol use 3.0 oz/week 2 Cans of Beer (12oz) per week MEDICATIONS: Prior to Admission Medications: tiotropium-olodaterol (STIOLTO RESPIMAT) 2.5-2.5 mcg/actuation mist Inhale 2 Puffs as instructed twice daily. albuterol HFA (VENTOLIN HFA) 90 mcg/actuation inhaler Inhale 2 Puffs as instructed every 6 hours as needed for Wheezing/Shortness of Breath. No current hospital medications on file. ALLERGIES: ALLERGIES No Known Allergies ROS: All obtained and negative other than HPI PHYSICAL EXAM: Blood pressure 139/71, pulse 114, temperature 36.5 ?C (97.7 ?F), temperature source Oral, resp. rate 22, height 180.3 cm (5' 11), weight 53.7 kg (118 lb 6.2 oz), SpO2 94 %. On physical examination Sabina Flores is a well-developed, well nourished male. His speech is normal and his voice is breathy. Mental status revealed patient to be alert and oriented. Mood is appropriate. Details of the physical examination: CRANIAL NERVE EXAM: II: Pupillary reflexes normal III, IV, : EOM normal V: 1,2,3: normal sensation VII: Normal strength in all divisions. VIII: Hearing grossly normal. IX, X: Breathy voice, normal palatal elevation and sensation XI: Shoulder strength normal XII: Tongue mobility normal HEAD AND FACE: Physical examination of the head, neck, external nose, external ears, mouth and face fails to demonstrate any significant abnormality or asymmetry to critical face to face observation. Skin and scalp are normal. NOSE: Examination of the nasal cavity revealed a septum which is midline. The mucosa is pink, and the visible turbinates are normal on anterior rhinoscopy. There is no purulence or polyps. NASOPHARYNX: No masses or significant adenoid hypertrophy MASTICATION: The lips and gums are without lesions. ORAL CAVITY AND OROPHARYNX: The oral mucosa, hard and soft palates, tongue, tonsil area, and posterior pharyngeal wall are without lesions. LARYNX: Procedure: Flexible laryngoscopy was performed because of the following indication: Poor visualization with mirror and/or the need for high resolution imaging of the larynx and dynamic airway. After spraying the nose with xylocaine/neosynephrine, the flexible scope was placed in a transnasal fashion. The nasopharynx, oropharynx, hypopharynx including the pyriform sinuses were normal other than radiation changes. The base of tongue showed no gross lesions. The larynx itself showed no lesions. The vocal cords moved well bilaterally. NECK: The neck appears symmetric without scars. On palpation, there are no masses or lymphadenopathy. The thyroid is not palpable and was free of masses. No salivary gland masses or hypertrophy is noted. Mellissa Dobbs MD September 18, 2017 4:44 PM Teressa Alarcon MD 09/19/2017 8:13 AM Attested Attestation signed by Hernesto Sarkar at 09/19/2017 2:08 PM [facility] STAFF PHYSICIAN NOTE OF PERSONAL INVOLVEMENT IN CARE Chart reviewed, patient examined, and perry elements of history and physical examination of the patient confirmed and agree with the documented findings and plan of care. See my note on 09/18/17. Hernesto Sarkar MD FAAP FACP [facility] Internal Medicine-Pediatrics Hospital Medicine/IMPACT Pager: [phone] Date of Service: September 18, 2017 HISTORY AND PHYSICAL EXAMINATION For questions regarding this patient for today[place] [phone]. 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 Active Hospital Problems Diagnosis - Leukocytosis - on cipro/flagyl at OSH as well as zosyn started prior to transfer - sputum culture at OSH 09/16 positive for malik albicans (presumptive) - DDx includes infection vs malignancy Plan: - f/u CBC with staff review - f/u CRP, ESR, procalcitonin, lactate - f/u UA with urine culture - f/u iron studies, ferritin, vitamin B12 - cont vanc/zosyn, plan to de-escalate after 3 days if no source found - t/c ID c/s - Thrombocytosis (HCC) - 432k in 01/2015, progressively rising. 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 Plan: - EGD dilation general anesthesia (concern about patient tolerating procedure while awake) - NPO with IVF - GI c/s - Shortness of breath - DDx includes COPD, aspiration, pulmonary edema, ?ILD - on nocturnal oxygen PRN at home Plan: - f/u NT pro-BNP, TTE, EKG, troponin T - CXR - Tachycardia Plan: - f/u EKG, TTE - f/u TSH and free T4 - History of peptic ulcer - s/p partial gastrectomy 1971 Plan: - PPI (IV while NPO) - COPD (chronic obstructive pulmonary disease) (HCC) - productive cough improving, denies fevers/chills - does not appear to be COPD exacerbation on admission - at home on ventolin PRN and stiolto daily Plan: - start spiriva and breo-ellipta - duoneb and albuterol PRN - Dysphagia - Former tobacco use - S/P partial gastrectomy - Malignant neoplasm of larynx (HCC) - 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 April 2014, 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 On nocturnal oxygen PRN - thrombocytosis - alcohol abuse - PUD s/p partial gastrectomy 1971 He presented to an OSH on 09/13/17 with complaints of shortness of breath and nausea. There was initially concern of acute enteritis vs ileus so he was started on cipro/flagyl. He also had an episode of impacted foreign body (iron pill) in his esophagus for which he underwent EGD (see below). He was offered PEG tube at the OSH but patient refused. There was also concern for COPD exacerbation and patient was given 1 dose of IV solu-medrol 40mg after he developed shortness of breath after esophagoscopy requiring 5-6L of O2 with pulse ox 93% and tachycardic and tachypneic and ABG 7.39/35.8/75 on 50% FiO2. He was also given IV iron (venofer x1) and started on oral iron for iron deficiency anemia. At the OSH there was concern for aspiration pneumonia so he was placed on ciprofloxacin and zosyn (started 09/18) prior to transfer. Per review of the OSH records, during his admission he was prescribed IV PPI, cipro, duoneb, flagyl, potassium chloride, lovenox, solu-medrol, zosyn, magnesium hydroxide, tylenol, ventolin, zofran, morphine PRN. Per OSH discharge summary: Patient is a 77-year-old gentleman with multiple comorbidities including COPD, throat cancer in August 2016 for which he received radiation therapy history of partial gastrectomy on account of bleeding ulcer presented with shortness of breath with associated nausea but no vomiting. An assessment of acute enteritis made treated symptomatically. Patient was also found to have an impacted foreign body attributed to suspected pill esophagitis versus obstruction. Patient underwent EGD the scope apparently could not be advanced beyond the suspected area of stricture and did not tolerate upper GI swallow study ordered on 09/17/2017. Did discuss his current condition with him he requested to be transferred to [facility] where he had previously received care. 1. Acute hypoxic respiratory failure secondary to COPD exacerbation suspected aspiration pneumonia imaging studies obtained on admission demonstrated COPD/emphysema withbronchiectasis as well as Findings concerning for developing infiltrate or mass in the right midlung field. Evaluation with CT ordered. With ciprofloxacin as well as Zosyn as stated above patient was transferred to F 2. Acute enteritis suspected to be viral enteritis treated symptomatically 3. Suspected esophageal stricture and underwent EGD by Dr. Becerril the scope apparently could not be advanced beyond the suspected area of stricture patient will tolerate upper GI swallow study on 09/17/2017 4. Right mid lung mass CT of the chest with contrast ordered for subsequent evaluation as recommended by radiology 5. Acute kidney injury resolved 6. Thrombocytosis possibly reactive patient has anemia with microcytosis; 7. DVT Prophylaxis; enoxaparin 8. Severe protein calorie malnutrition as evidenced by patient low BMI of 15.7, decreased energy level and muscle wasting consultation placed CT Chest 09/17/17: Small bilateral pleural effusions. Bibasilar atelectasis and/or early infiltrate superimposed on chronic interstitial scarring. Increased interstitial markings are also seen in the posterior aspect of the right upper lobe suggestive scarring. There is evidence of emphysematous changes in the upper lobes. Focal linear scarring is also seen in the left apex. There is a faint nodular density measuring 7.6 mm in the anterior aspect of the right upper lobe as seen on image #79 on the axial images. There are calcifications of the coronary arteries. Normal mediastinum. Enlarged right hilar lymph node measuring 2.3 cm. This is unchanged. Normal enhanced pulmonary arteries. There is atherosclerotic calcification of the aortic arch . There are multi-level degenerative changes of the thoracic spine. There is no demonstrated abnormality of the visualized upper abdomen. CT A/P 09/13/17: Emphysematous changes in the lung bases without acute findings. Small amount of scarring in the left lung base. The visualized portions of the heart are within normal limits. There is decreased attenuation of the liver consistent with steatosis. Normal gallbladder and extrahepatic biliary system. There is moderate splenomegaly. Somewhat heterogeneous enhancement pattern of the spleen however, likely due to arterial phase exam. Normal pancreas. Normal bilateral adrenal glands. Normal right kidney. Normal left kidney. There is a small hiatal hernia. Scattered fluid-filled loops of small bowel with scattered air-fluid levels. No abnormal dilation. There are multiple colonic diverticula consistent with diverticulosis. The appendix is visualized and appears normal. There is diffuse atherosclerotic calcification of the abdominal aorta, without a demonstrated aneurysm. Normal inferior vena cava. Normal retroperitoneum. Normal urinary bladder. There is enlargement of the prostate gland. Normal abdominal wall. There are diffuse degenerative changes of the visualized lumbar spine. Esophagoscopy with foreign body removal 09/14/17: The patient was brought back to the operating room and MAC anesthesia was administered by anesthesia. The EGD scope was placed into the mouth and into the pharynx. This was guided into the proximal esophagus where an obstruction and was met. While trying to use the 3-prong graspers to grasp the pill it slid forward into the distal esophagus into pieces. The scope was advanced through the stricture and was barely able to fit. The esophageal tissue was friable and there was some minor bleeding. The scope was withdrawn and this bleeding was monitored and it was felt to be very minor. The scope was slowly withdrawn and the patient was awoken and taken to PACU in stable condition. For fear of worsening the bleeding I did not pass the scope beyond the midesophagus Labs 09/18/17: LAB L100.1000 WBC 42.9 High alert 4.4-11.0 K/mm3 Result Comment: RESULTS CALLED TO HAMIDA LOOMIS MS-3 09/18/17 0657 Kenney Ramos. REPORT READ BACK BY SAME . LAB L100.1200 RBC 7.35 High 4.6-6.2 M/mm3 LAB L100.1300 HGB 13.0 Normal 13.0-16.5 g/dl LAB L100.1400 HCT 44.0 Normal 40-54 % LAB L100.1500 MCV 59.9 Low 80-94 fL LAB L100.1600 MCH 17.7 Low 27.0-32.0 pg LAB L100.1700 MCHC 29.5 Low 32-36 g/gl LAB L100.1810 RDW CV 22.3 High 11.6-14.6 % LAB L100.1820 RDW SD 43.0 Normal 35.1-43.9 fl LAB L100.1900 PLT 1427 High alert 150-450 K/mm3 Result Comment: RESULTS CALLED TO HAMIDA LOOMIS MS-3 09/18/17 0658 Kenney Ramos. REPORT READ BACK BY SAME . LAB L100.2000 MPV 8.7 Normal 6.2-12.0 fl LAB L100.4500 SMEAR COMMENT SEE COMMENT Normal ? ? Result Comment: PLTS=MKD INCREASE ANISOCYTOSIS=1+ MICROCYTOSIS=1+ Performed By: #### L100.0500, L100.4500 #### [facility] [address] [place], [address] BASIC METABOLIC PROFILE (BMP) Collected: 09/18/2017 6:25 AM Status: F Source: [facility] REPOSITORY TYPE CODE TESTS RESULT OUT OF RANGE REFERENCE UNITS LAB L501.0100 GLU 113 High 74-106 mg/dL Result Comment: Fasting Glucose result from 100 to 125 mg/dL suggests IMPAIRED HOMEOSTASIS per A.D.A. criteria. Please note revised GLUCOSE reference range effective 2017. LAB L501.1000 BUN 13 Normal 7-18 mg/dL LAB L501.1100 CREAT,SERUM 0.88 Normal 0.70-1.30 mg/dL Result Comment: The validity of the calculated GFR AND GFRAA in patients over 70 years has not been determined. Clinical correlation is essential. LAB L501.1110 EST GFR 89 Normal >60 mL/min Result Comment: Non- GFR Calc LAB L501.1115 EST GFR - AA 108 Normal >60 mL/min Result Comment: GFR Calc LAB L501.1255 Estimated CRCL 50.81 Normal ? ml/min LAB L501.1300 BUN/CRE 14.8 Normal 10-20 RATIO LAB L501.2200 CA 8.6 Normal 8.5-10.1 mg/dL LAB L501.5300 NA 141 Normal 136-145 mmol/L LAB L501.5600 K 4.8 Normal 3.5-5.1 mmol/L LAB L501.5900 CL 108 High 98-107 mmol/L LAB L501.6100 CO2 16.0 Low 21.0-32.0 mmol/L LAB L501.6200 GAP 17 High 5-15 ? 09/14/17: TIBC 269 (normal) Iron 14 (low) Iron sat 5.2 (low) Ferritin 15 (low) WBC 19.1 Hgb 10.5 MCV 61.0 Plt count 1164 09/16/17 sputum gram statin presumptive C albicans Per records, as an outpatient patient takes ventolin 5-6x per week, and stiolto on a daily basis. Per patient: He has had 2 weeks of shortness of breath that has progressively worsened though is now stable. He believes he was diagnosed with pneumonia 2 weeks ago (productive cough) and was given antibiotics as an outpatient (not sure what kind, was sick too) and now the productive cough has improved though there is still a residual cough. He has had 6 months of difficulty swallowing; previous to that ~15 years ago he was told they wanted to stretch his larynx but besides that he denies trouble swallowing. He has also had 3 years of intermittent tinnitus and occasional positional dizziness. He denies bleeding He went into the hospital last after he had a pill stuck in his throat (feels like the pill is underneath his manubrium) and pounded on his chest. He then developed trouble breathing. He was eating and drinking at the OSH but then an iron pill got stuck. He had a scope to push the pill through. Since then has been NPO. At the OSH he also states he got some pain medicine and breathing treatments. He requested to be transferred to [facility] because his ENT doctors are here and for further management of the esophageal stricture as they were not allowing him to eat and just giving him IVF (the doctors at [place] did not want to intervene given the previous radiation to the area). He think the steroids helped with the SOB but he is still complaining of SOB and dry mouth/throat. He has not had alcohol for 3 weeks, since he started feeling sick. He previously drank 4 cans of beer a week. 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 - Former tobacco use 09/18/2017 - History of laryngeal cancer 10/27/2014 - Interstitial lung disease (HCC) 02/09/2011 Ct chest 01/2011 - Iron deficiency anemias 01/11/2005 - Malignant neoplasm of larynx (HCC) 05/31/2017 - PEPTIC ULCER NOS 01/11/2005 - PERS HX OF ALCOHOLISM 01/11/2005 - Polycythemia 05/21/2013 - S/P partial gastrectomy 09/18/2017 - Severe protein-calorie malnutrition (HCC) 11/20/2016 - Shortness of breath 09/18/2017 - Squamous cell carcinoma of larynx (HCC) 02/08/2017 - Tobacco use disorder 01/11/2005 - Unspecified asthma(493.90) 03/03/2011 PAST SURGICAL HISTORY: PAST SURGICAL HISTORY Procedure Laterality Date - COLONOSCOP W/ OR W/O BRSH SPEC 2003 Colonoscopy - COLONOSCOP W/ OR W/O BRSH SPEC 02/20/2013 Colonoscopy - COLONOSCOP W/ OR W/O BRSH SPEC 03/30/16 Colonoscopy - EGD W/O OR W/BRUSH/WASH 2003 EGD - EGD W/O OR W/BRUSH/WASH 02/20/13 EGD - ESOPH W/O BRSH SPEC BALLOON DIL - Esophageal dilatation - LARYNGOSCOPY W/ BIOPSY 02/06/2014 - PARTIAL GASTRECTOMY 1970 - PAST SURGICAL HISTORY OF Left 08/29/2016 Floor of mouth resection, sialadochoplasty FAMILY HISTORY: FAMILY HISTORY Problem Relation Age of Onset - Cancer Brother lung cancer - Cancer Brother bone cancer - Cancer Brother brain tumor or cancer - Coronary Artery Disease Father age 64, [place] - None Mother age 95 SOCIAL HISTORY: Social History Substance Use Topics - Smoking status: Former Smoker Packs/day: 2.00 Years: 52.00 Types: Cigarettes Quit date: 09/01/2013 - Smokeless tobacco: Never Used - Alcohol use 6.0 oz/week 4 Cans of Beer (12oz) per week MEDICATIONS: Prior to Admission Medications Prescriptions Prior to Admission: doxycycline monohydrate (MONODOX) 100 mg capsule Take 100 mg by mouth once daily. Disp: Rfl: tiotropium-olodaterol (STIOLTO RESPIMAT) 2.5-2.5 mcg/actuation mist Inhale 2 Puffs as instructed twice daily. Disp: Rfl: 0 Unknown at Unknown time albuterol HFA (VENTOLIN HFA) 90 mcg/actuation inhaler Inhale 2 Puffs as instructed every 6 hours as needed for Wheezing/Shortness of Breath. Disp: 1 Inhaler Rfl: 6 Unknown at Unknown time CURRENT ALLERGIES: ALLERGIES No Known Allergies COMPLETE REVIEW OF SYSTEMS: GENERAL: No weight loss, fatigue or fevers. HEENT: Had a nocturnal headache last week, No changes in hearing. R eye 2-3 weeks ago noticed that his vision was like looking through a foggy window RESPIRATORY: Positive for cough, shortness of breath. Denies wheezing. CARDIOVASCULAR: Negative for chest pain, leg swelling or palpitations. GI: 1-2 weeks ago had N/V. Negative for diarrhea, or constipation, blood in stool : No history of dysuria, no increased urinary urgency or frequency, no blood in urine MUSCULOSKELETAL: Negative for joint pain or swelling, no myalgias. SKIN: Negative for lesions, rash, and itching. All other reviewed and negative other than HPI. OBJECTIVE PHYSICAL EXAM: Patient Vitals for the past 24 hrs: BP Temp Temp src Pulse Resp SpO2 Height Weight 09/18/17 1543 139/71 36.5 ?C (97.7 ?F) Oral 114 22 94 % 180.3 cm (5' 11) 53.7 kg (118 lb 6.2 oz) Body mass index is 16.51 kg/m?. GENERAL: alert, no distress, cooperative HEAD/SINUSES: No significant findings. EYES: PERRLA and EOMI NOSE: Nares normal. Septum midline NECK: supple LUNGS: Lungs clear to auscultation though with decreased breath sounds bilaterally, no wheezes, no crackles CARDIAC: normal S1 and S2; no rubs, murmurs, or gallops ABDOMEN: Abdomen soft, non-tender, no guarding/rebound. BS normal. EXTREMITIES: Extremities normal. No deformities, edema SKIN: stage 1 coccyx pressure injury The remainder of the physical exam is noncontributory. DATA: Diagnostic tests reviewed for today's visit: Most recent labs and imaging results. See above from OSH. SIGNATURE: Teressa Alarcon MD PATIENT NAME: Sabina Flores DATE: September 18, 2017 TIME: 5:14 PM PAGER/CONTACT #: [phone] Previous Version Tam Hendrix 09/18/2017 5:56 PM Signed PHARMACY VANCOMYCIN DOSING NOTE Patient Name: Sabina Flores Admission Date: 09/18/2017 Date of Consult: 09/18/2017 Time of Consult: 5:54 PM Indication: Bloodstream infection Goal Range: 10-20 mcg/mL RECOMMENDATIONS/PLAN: Pharmacy consulted for vancomycin dosing for Sabina Flores, a 77 year old, male who is being treated with vancomycin for bloodstream infections 1. Patient is currently ordered Vancomycin 750 mg IV q12h. Today is day 1 of therapy. 2. No vancomycin level has been drawn for this dosing regimen. 3. Will adjust vancomycin to 750 mg with a dosing interval of q24h for age of 77 yrs 4. The next vancomycin level will be ordered for 09/22/17 unless clinically indicated sooner. (Pharmacy will order) We will follow patient renal function, vancomycin levels and doses with you during the course of therapy. Additional recommendations will appear in follow up notes. If you have any questions, [place] [phone]. Age: [age] year old Allergies: ALLERGIES No Known Allergies Last 3 Encounter Wt Readings: Date: Wt: 09/18/2017 53.7 kg (118 lb 6.2 oz) 04/11/2017 55.8 kg (123 lb) 01/02/2017 55.8 kg (123 lb) Last 1 Encounter Ht Readings: Date: Ht: 09/18/2017 180.3 cm (5' 11) CrCl: 48.4 mL/min Temp (24hrs), Av.5 ?C (97.7 ?F), Min:36.5 ?C (97.7 ?F), Max:36.5 ?C (97.7 ?F) - Current Temp: 36.5 ?C (97.7 ?F) Labs BUN (mg/dL) Date Value 08/15/2016 9 02/10/2015 13 04/07/2014 11 Creatinine (mg/dL) Date Value 08/15/2016 0.97 02/10/2015 1.06 04/07/2014 0.98 WBC (k/uL) Date Value 08/15/2016 11.30 (H) 08/17/2015 8.53 02/10/2015 7.47 Vancomycin Levels: No results found for: SAL Vela Pharmacist Hernesto Sarkar MD 09/18/2017 6:39 PM Addendum [facility] STAFF PHYSICIAN NOTE OF PERSONAL INVOLVEMENT IN CARE Chart reviewed, patient examined, and agree with the documented findings and plan of care. Mr. 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 No Pneumomediastinum. He has thrombocytosis, and presumably severe iron deficiency - wonder if dysphagia is due to Mary Yadiel vs. stricture. He has history of gastrectomy - which poses him at risk for B12 deficiency, but also iron deficiency due to hypochlorhydria. Plan: - Will repeat EGD and may also need UGI. - OK to continue abx for now due to concern for possible aspiration; check procalcitonin. - Optimize COPD management - Add LABA/LAMA. He is not in exacerbation - has no wheezing on exam and is moving air appropriately and speaking in full sentences. - Nonetheless, will assess for cardiac causes of SOB - check EKG, ECHO, NT-pro-BNP, as well as cycle troponins x 2. - Nutrition consult - Delirium care path for proactive prevention. Full resident note to follow. Hernesto Sarkar MD FAAP FACP [facility] Internal Medicine-Pediatrics [facility] Medicine/IMPACT Pager: [phone] Date of Service: September 18, 2017 Time of Service: 6:33 PM Previous Version RT Rox, Tech 09/18/2017 6:59 PM Signed Radiology Service Progress Note PATIENT NAME: Sabina Flores DATE OF SERVICE: September 18, 2017 TIME: 6:59 PM PATIENT IDENTITY VERIFICATION COMPLETED USING TWO (2) METHODS: Patient confirmed name verbally and ID band matches.. PATIENT GENDER DATA: Male PATIENT RELEVANT IMPLANT DATA REVIEWED: Not Applicable RADIOLOGY DEPARTMENT: General X-ray: Exam(s) Completed: Chest X-Ray PERIPHERAL IV DATA: Not applicable SIGNED BY: RT Rox September 18, 2017 6:59 PM Viviana Fairchild RN, RN 09/18/2017 9:38 PM Signed Nursing Progress Note Patient Name: Sabina Flores Patient Location: [id number]/[id number] Daily Note: 2130 Sepsis alert flagged, WBC 45.29, PT INR 2.2, BP 147/77. Paged Catalino. 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 No Advance Directive: Current Advance Directive: None Wireless Technician Assisted with AD Completion: No Health Literacy: 1. How often do you need to have someone help you when you read instructions, pamphlets, or other written material from your doctor or pharmacy? Never - 1 2. How confident are you filling out medical forms by yourself? Extremely - 1 If Patient scores > 3 on either question, the following interventions were put into place: Patient did not score > 3 FUNCTIONAL AND COGNITIVE/BEHAVIORAL PRIOR TO ADMISSION: Baseline Mental Status: Alert AND Oriented, Person, Place , Time and Situation Functional Status: Independent Does Patient Currently Receive Any Community Services or Home Care? None Equipment Prior to Admission: Oxygen 2 liters per minute (at night) Has the Patient Been in a Assisted Facility in the Past 30 days? No SOCIAL: Living Arrangement: Home Lives With: Spouse Financial Resources: Retired Primary Contact: Extended Emergency Contact Information Primary Emergency Contact: Donnie Flores Address: [address] [place], [place] [id number] Mobile Relation: Spouse Supportive: Yes Other Important Patient Contacts: None Caregiver Assessment: Caregiver is ready, willing and able to meet the patient's needs as recommended by the inter-professional team? Yes Patient's transition needs and plan for meeting these needs: patient independent Does the patient have an acute stroke diagnosis, or has the patient had a stroke during this admission? No Medication Adherence: I am convinced of the importance of my prescription medication: Agree completely - 0 I worry that my prescription medication will do more harm than good to me Disagree completely - 0 I feel financially burdened by my soe-gw-qyzlch expenses for my prescription medication: Disagree completely - 0 Patient is categorized as low risk < 2 Are you interested in bedside delivery of your medications? Yes Food Concerns: In the Last Month, Have You had Trouble Getting Food? No trouble getting food During the Last Month, Have You Worried Whether Your Food Would Run Out Before You Had Enough Money to Buy More? No Is the Patient Psychosocially Complex? 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 Patient discharge date TBD home via daughter transportation. Patient admitted from OSH with shortness of breath and esophageal stricture. Patient independent with care at home prior to admission. Patient utilizes 2L O2 at night unable to provide the name of equipment company. Plan TBD. Awaiting further recommendations. Please contact case management for any changes in skilled needs. Thank you SIGNATURE: Iva Barrera RN PATIENT NAME: Sabina Flores DATE: September 19, 2017 TIME: 8:38 AM PAGER/CONTACT #: [phone] Hernesto Sarkar MD 09/19/2017 4:49 PM Addendum Catalino Olsen Progress Note For questions regarding this patient for today, [place] [phone]. 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 Today's Plan: - continue vanc/zosyn - f/u CBC with staff review, urine culture, blood culture - t/c heme c/s depending on trend of WBC and platelets - GI c/s, appreciate recs re: esophageal stricture and further imaging +/- EGD with dilation (ordered) - f/u TTE - continue spiriva and breo-ellipta, duoneb and albuterol PRN Active Hospital Problems Diagnosis - Leukocytosis - on cipro/flagyl at OSH as well as zosyn started prior to transfer - sputum culture at OSH 09/16 positive for malik albicans (presumptive) - DDx includes infection vs malignancy - CRP 1.1, ESR nl, procalcitonin 0.20 (H), lactate nl - iron studies with low iron/TIBC/saturation, normal ferritin in setting of recent IV iron at OSH - vitamin B12 normal Plan: - f/u CBC with staff review - f/u urine and blood culture - cont vanc/zosyn, plan to de-escalate after 3 days if no source found - t/c ID c/s - Thrombocytosis (HCC) - 432k in 01/2015, progressively rising. 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 Plan: - EGD dilation general anesthesia (concern about patient tolerating procedure while awake) - NPO with IVF - GI c/s - Shortness of breath - DDx includes COPD, aspiration, pulmonary edema, ?ILD - on nocturnal oxygen PRN at home - CXR on admission not significant for pulmonary edema though NT pro-BNP 3122 on admission (does not appear volume overloaded on exam). Troponin T negative Plan: - f/u TTE - COPD management as under COPD - Tachycardia - TSH elevated at 8.25 with normal free T4 - EKG on admission shows sinus tachycardia Plan: - f/u TTE - History of peptic ulcer - s/p partial gastrectomy 1971 Plan: - PPI (IV while NPO) - COPD (chronic obstructive pulmonary disease) (HCC) - productive cough improving, denies fevers/chills - does not appear to be COPD exacerbation on admission - at home on ventolin PRN and stiolto daily Plan: - start spiriva and breo-ellipta - duoneb and albuterol PRN - Dysphagia - Former tobacco use - S/P partial gastrectomy - Malignant neoplasm of larynx (HCC) - 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 Denies CP. PHYSICAL EXAMINATION: BP 134/73 Pulse 81 Temp 36.5 ?C (97.7 ?F) (Oral) Resp 20 Ht 180.3 cm (5' 11) Wt 53.7 kg (118 lb 6.2 oz) SpO2 95% BMI 16.51 kg/m? GENERAL: alert, no distress, cooperative HEAD/SINUSES: No significant findings. EYES: PERRLA and EOMI NOSE: Nares normal. Septum midline NECK: supple LUNGS: Lungs clear to auscultation though with decreased breath sounds bilaterally, no wheezes, no crackles CARDIAC: normal S1 and S2; no rubs, murmurs, or gallops ABDOMEN: Abdomen soft, non-tender, no guarding/rebound. BS normal. EXTREMITIES: Extremities normal. No deformities, edema Laboratory Values CBC: Recent Labs 09/19/17 0118 09/18/17 2222 09/18/17 1940 WBC 30.59* 36.45* 45.29* HB 12.0* 12.4* 13.9 HCT 41.6 43.3 48.8 PLT 1,268* 1,355* 1,665* MCV 60.6* 60.9* 61.9* RDWCV 24.2* 24.5* 25.4* COAG: Recent Labs 09/18/171937 APTT 43.3* INR 2.2* BMP: Recent Labs 09/19/17 0118 09/18/171941 GLUC 105* 97 NA 138 143 K 4.4 4.9 CHLOR 103 104 CO2 20* 19* ANION 15 20* BUN 15 15 CREAT 1.02 1.08 CHEM: Recent Labs 09/19/1711709/18/171941 ALB 2.6* 3.3* TPROT 5.1* 6.2* CA 8.4* 9.0 MG 2.0 2.2 HEPATIC: Recent Labs 09/19/1711709/18/171941 ALKPHOS 89 114* ALT 10 10 AST 18 17 TBILI 0.3 0.4 URINALYSIS: Recent Labs 09/18/172052 SPGR 1.023 UGLUC Negative UBILI Negative UKET 1+* UHB Negative UPROT Negative UWBC 0-5 CARDIAC: Recent Labs 09/19/1711909/18/171941 TROPT <0.010 <0.010 PBNP -- 3,122* Component Latest Ref Rng AND Units 09/18/2017 09/19/2017 WBC 3.70 - 11.00 k/uL 45.29 (H) 30.59 (H) RBC 4.20 - 6.00 m/uL 7.88 (H) 6.87 (H) Hemoglobin 13.0 - 17.0 g/dL 13.9 12.0 (L) Hematocrit 39.0 - 51.0 % 48.8 41.6 MCV 80.0 - 100.0 fL 61.9 (L) 60.6 (L) MCH 26.0 - 34.0 pG 17.6 (L) 17.5 (L) MCHC 30.5 - 36.0 g/dL 28.5 (L) 28.8 (L) RDW-CV 11.5 - 15.0 % 25.4 (H) 24.2 (H) Platelet Count 150 - 400 k/uL 1,665 (H) 1,268 (H) MPV 9.0 - 12.7 fL 8.4 (L) 8.8 (L) Neut% % 84.0 Abs Neut (ANC) 1.45 - 7.50 k/uL 38.04 (H) Lymph% % 3.0 Abs Lymph 1.00 - 4.00 k/uL 1.36 Preston% % 9.0 Abs Preston <0.87 k/uL 4.08 (H) Eosin% % 1.0 Abs Eosin <0.46 k/uL 0.45 Baso% % 0.0 Abs Baso <0.11 k/uL 0.00 ANC(includeSEG+BAND) k/uL 38.04 Spring% % 3.0 Anisocytosis Present Left Shift Present Giant Platelets Occasional Ovalocytes Few Agranular Platelets Occasional Polychromasia Slight RBC Fragments Few Platelet Estimate Platelet estimate increased Diff Type Manual Diff Staff Review, CBCDIF SEE COMMENT Pathologist for Staff Review Reviewed by Araseli Guerin MD, PhD. (10661) Protein, Total 6.3 - 8.0 g/dL 6.2 (L) 5.1 (L) Albumin 3.9 - 4.9 g/dL 3.3 (L) 2.6 (L) Calcium 8.5 - 10.2 mg/dL 9.0 8.4 (L) Bilirubin, Total 0.2 - 1.3 mg/dL 0.4 0.3 Alkaline Phosphatase 36 - 108 U/L 114 (H) 89 AST 14 - 40 U/L 17 18 Glucose 74 - 99 mg/dL 97 105 (H) BUN 9 - 24 mg/dL 15 15 Creatinine 0.73 - 1.22 mg/dL 1.08 1.02 Sodium 136 - 144 mmol/L 143 138 Potassium 3.7 - 5.1 mmol/L 4.9 4.4 Chloride 97 - 105 mmol/L 104 103 CO2 22 - 30 mmol/L 19 (L) 20 (L) Anion Gap 9 - 18 mmol/L 20 (H) 15 ALT 10 - 54 U/L 10 10 eGFR- >60 >60 eGFR-All Other Races . >60 >60 Iron 41 - 186 ug/dL 23 (L) TIBC 232 - 386 ug/dL 200 (L) Transferrin Saturation 15 - 57 % 12 (L) PT Sec 9.7 - 13.0 sec 21.9 (H) PT INR 0.9 - 1.3 2.2 (H) APTT 23.0 - 32.4 sec 43.3 (H) Magnesium 1.7 - 2.3 mg/dL 2.2 2.0 Lactate 0.5 - 2.2 mmol/L 1.6 Procalcitonin <0.09 ng/mL 0.20 (H) WSR 0 - 15 mm/hr 2 Troponin T 0.000 - 0.029 ng/mL <0.010 NT Pro BNP <450 pg/mL 3,122 (H) CRP <0.9 mg/dL 1.1 (H) Ferritin 30.3 - 565.7 ng/mL 223.1 Vitamin B12 232 - 1,245 pg/mL 345 Vitamin D 25 Hydroxy 31.0 - 80.0 ng/mL 6.2 (L) TSH 0.400 - 5.500 uU/mL 8.250 (H) Free T4 0.9 - 1.7 ng/dL 1.0 Fib Clot 200 - 400 mg/dL 280 LD 135 - 225 U/L 415 (H) Haptoglobin 31 - 238 mg/dL 158 Diagnostic tests reviewed for today's visit: Most recent labs Most recent imaging Created by: Teressa Alarcon MD PGY-1 Internal Medicine Resident [facility] Pager: [phone] [facility] STAFF PHYSICIAN NOTE OF PERSONAL INVOLVEMENT IN CARE Chart reviewed, patient examined, and perry elements of progress note of the patient confirmed and agree with the documented findings and plan of care. Add vitamin D supplementation. Oral vitamin K as well to reverse INR. Recheck INR in AM. Alk phos dropping w IVF's - check zinc levels. Appreciate GI consult input. Hernesto Sarkar MD FAAP FACP [facility] Internal Medicine-Pediatrics [facility] Medicine/IMPACT Pager: VAURONM Date of Service: September 19, 2017 Time of Service: 2:08 PM Previous Version Ricky Mosquera MD, MPH 09/19/2017 4:29 PM Addendum Gastroenterology Consult Service Department of Gastroenterology AND Hepatology Digestive Disease AND Surgery [place] [facility] INITIAL CONSULT NOTE SERVICE DATE: 09/19/2017 SERVICE TIME: 10:08 AM Opinion/advice regarding: Dysphagia IMPRESSION AND PLAN 77 YOM with laryngeal cancer s/p radiation in 2015, now comes with dysphagia secondary to esophageal stricture. 1) Esophageal stricture likely secondary to radiation - He will need serial dilations, with multiple sessions spanning many weeks. - He has a higher risk of complications including post-procedural pain, esophageal perforation and delayed tracheoesophageal fistual. - The patient has history of esophageal web s/p dilation in 2003 - reports not available at this time. Recommendations: - The patient tolerates soft food and liquids well. The workup below can all be done as outpatient. - Obtain an XR esophagram to evaluate location and length of stricture segment. - Swallow eval - to assess oropharyngeal phase of swallowing. - EGD for initial assessment and CORPAK placement. - Following the above workup patient can follow outpatient for dilations with or without fluoroscopy based on finidings. HPI: Mr. Flores is a 77 year-old gentleman. He is known to have T2N0 invasive poorly differentiated SCC of the larynx s/p radiation which he completed April 2014. He also has history of partial gastrectomy due to gastric ulcer. He has been complaining of difficulty swallowing solids for the past 6 months. He does not have trouble swallowing liquids, and most solids, but he cannot swallow steak or chicken if he does not chew well. No chest pain on swallowing and no significant weigh loss over the past 6 months. About 6 days ago, he developed abdominal pain was was seen at [place] [facility]. He was given and iron pill and he felt that the pill is stuck in the middle of the chest. EGD was done to remove the pill, no dilation was attempted. He developed post procedural pain, imagine did not show perforation, and transferred to [facility] for further care. By the time he arrived at [facility], his abdominal pain and chest pain has resolved. 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 While trying to use the 3-prong graspers to grasp the pill it slid forward into the distal esophagus into pieces. The scope was advanced through the stricture and was barely able to fit. The esophageal tissue was friable and there was some minor bleeding. The scope was withdrawn and this bleeding was monitored and it was felt to be very minor. The scope was slowly withdrawn and the patient was awoken and taken to PACU in stable condition. For fear of worsening the bleeding I did not pass the scope beyond the midesophagus EGD 02/20/2013: Normal esophagus. Antrectomy with health mucosa on the anastamosis. Single non-bleeding AVM. Colon 02/20/2013: One 10 mm polyp 30 cm proximal to the anus. Resected. Clipped. Path: Tubular adenoma. EGD 03/03/2004: Esophageal web seen Pertinent Review of Systems: GENERAL: No weight loss, malaise or fevers. SEE HPI NECK: Negative for lumps, goiter, pain and significant neck swelling RESPIRATORY: Negative for cough, wheezing or shortness of breath. CARDIOVASCULAR: Negative for chest pain, leg swelling or palpitations. GI: See HPI MUSCULOSKELETAL: Negative for joint pain or swelling, back pain or muscle pain. All other reviewed and negative other than HPI. 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 - Former tobacco use 09/18/2017 - History of laryngeal cancer 10/27/2014 - Interstitial lung disease (HCC) 02/09/2011 Ct chest 01/2011 - Iron deficiency anemias 01/11/2005 - Malignant neoplasm of larynx (HCC) 05/31/2017 - PEPTIC ULCER NOS 01/11/2005 - PERS HX OF ALCOHOLISM 01/11/2005 - Polycythemia 05/21/2013 - S/P partial gastrectomy 09/18/2017 - Severe protein-calorie malnutrition (HCC) 11/20/2016 - Shortness of breath 09/18/2017 - Squamous cell carcinoma of larynx (HCC) 02/08/2017 - Tobacco use disorder 01/11/2005 - Unspecified asthma(493.90) 03/03/2011 PAST SURGICAL HISTORY: PAST SURGICAL HISTORY Procedure Laterality Date - COLONOSCOP W/ OR W/O BRS SPEC 2003 Colonoscopy - COLONOSCOP W/ OR W/O BRSH SPEC 02/20/2013 Colonoscopy - COLONOSCOP W/ OR W/O BRSH SPEC 03/30/16 Colonoscopy - EGD W/O OR W/BRUSH/WASH 2003 EGD - EGD W/O OR W/BRUSH/WASH 02/20/13 EGD - ESOPH W/O [facility] SPEC BALLOON DIL 03-30-2004 Esophageal dilatation - LARYNGOSCOPY W/ BIOPSY 02/06/2014 - PARTIAL GASTRECTOMY 1970 - PAST SURGICAL HISTORY OF Left 08/29/2016 Floor of mouth resection, sialadochoplasty FAMILY HISTORY: FAMILY HISTORY Problem Relation Age of Onset - Cancer Brother lung cancer - Cancer Brother bone cancer - Cancer Brother brain tumor or cancer - Coronary Artery Disease Father age 64, [place] - None Mother age 95 SOCIAL HISTORY: Social History Substance Use Topics - Smoking status: Former Smoker Packs/day: 2.00 Years: 52.00 Types: Cigarettes Quit date: 09/01/2013 - Smokeless tobacco: Never Used - Alcohol use 6.0 oz/week 4 Cans of Beer (12oz) per week MEDICATIONS: Prior to Admission Medications: doxycycline monohydrate (MONODOX) 100 mg capsule Take 100 mg by mouth once daily. tiotropium-olodaterol (STIOLTO RESPIMAT) 2.5-2.5 mcg/actuation mist Inhale 2 Puffs as instructed twice daily. albuterol HFA (VENTOLIN HFA) 90 mcg/actuation inhaler Inhale 2 Puffs as instructed every 6 hours as needed for Wheezing/Shortness of Breath. Current hospital medications: 0.9% NaCl 3-5 mL 3-5 mL INTRAVENOUS q 12 H albuterol 2.5 mg /3 mL (0.083 %) 2.5 mg (PROVENTIL) 2.5 mg INHALATION q 4 H PRN ipratropium-albuterol 3 mL nebulizer solution (DUONEB) 3 mL INHALATION q 4 H PRN piperacillin-tazobactam 3.375 g in dextrose (iso-osmotic) 50 mL (ZOSYN) 3.375 g INTRAVENOUS q 6 H pantoprazole 40 mg injection (PROTONIX) 40 mg INTRAVENOUS DAILY (6 AM) vancomycin dosing and monitoring per pharmacy OTHER As Directed heparin 5,000 Units injection 5,000 Units SUBCUTANEOUS q 8 H vancomycin 750 mg in D5W 250 mL (VANCOCIN) 0.015 g/kg/dose INTRAVENOUS q 24 HR dextrose 5% in NaCl 0.45% iv infusion 50 mL/hr INTRAVENOUS CONTINUOUS Chlorhexidine Gluconate 0.12 % 15 mL (PERIDEX) 15 mL ORAL q 6 H tiotropium 18 mcg cap(s) and device for inhalation (SPIRIVA) 18 mcg INHALATION DAILY fluticasone-vilanterol 100-25 mcg/dose 1 Inhalation (BREO ELLIPTA) 1 Inhalation INHALATION DAILY ALLERGIES: ALLERGIES No Known Allergies OBJECTIVE: PHYSICAL EXAM: BP 134/73 Pulse 81 Temp (Src) 97.7 (Oral) Resp 20 Ht 5' 11 (1.80m) Wt 118 lb 6.2 oz (53.7kg) SpO2 95% BMI 16.52 kg/(m2). General appearance: AOx3 thin Skin: Skin color, texture, turgor normal, no rash. Eyes: Anicteric sclera. No palor. Oropharynx: Lips, mucosa, and tongue normal. Lungs: lungs clear to auscultation, no wheezing or rhonchi Heart: RRR Abdomen soft, non-tender. Bowel sounds normal. No masses or organomegaly. DATA: CBC, Coags, BMP, Mg, Phos Recent Labs 09/19/17 0118 09/18/17 2222 09/18/17 1942 09/18/17 1940 09/18/17 1938 WBC 30.59* 36.45* -- 45.29* -- HB 12.0* 12.4* -- 13.9 -- HCT 41.6 43.3 -- 48.8 -- PLT 1,268* 1,355* -- 1,665* -- INR -- -- -- -- 2.2* APTT -- -- -- -- 43.3* NA 138 -- 143 -- -- K 4.4 -- 4.9 -- -- CHLOR 103 -- 104 -- -- CO2 20* -- 19* -- -- BUN 15 -- 15 -- -- CREAT 1.02 -- 1.08 -- -- GLUC 105* -- 97 -- -- CA 8.4* -- 9.0 -- -- MG 2.0 -- 2.2 -- -- P -- -- -- -- 3.1 Liver Function, Amylase, AND Lipase Recent Labs 09/19/17 0118 09/18/171941 TPROT 5.1* 6.2* ALB 2.6* 3.3* ALT 10 10 AST 18 17 ALKPHOS 89 114* TBILI 0.3 0.4 LACT -- 1.6 SIGNATURE: Quentin Gomez MD PATIENT NAME: Sabina Flores DATE: September 19, 2017 TIME: 10:08 AM PAGER/CONTACT #: [phone] [facility] STAFF PHYSICIAN NOTE OF PERSONAL INVOLVEMENT IN CARE I have reviewed the consult note obtained and documented by the fellow and I personally participated in the perry components. I have discussed the case and management of the patient's care. The following comments revise or confirm relevant perry components of their note. IMPRESSION: This is a 77 year old male who presents with dysphagia. Hx of esophageal web and RT therapy of the chest. Currently able to hydrate and eat a liquid/soft diet. PLAN: outpatient series of dilations of known esophageal structure. SIGNATURE: Ricky Mosquera MD, MPH DATE of SERVICE: September 19, 2017 TIME of SERVICE: 4:29 PM Previous Version Odette Charles (Internet Technology Manager) 09/19/2017 11:39 AM Signed ASSISTANT PROGRAM MANAGER BEDSIDE DELIVERY SURVEY 1. Patient to use [facility] Bedside Delivery - YES 2. If fax, patient would like us to fax prescriptions to Pharmacy of choice a. Pharmacy: b. Location: c. Phone: 3. Insurance card on file - YES 4. Credit card for payment - NO No prescriptions yet. Please page [phone] Joselin Rivers, MS RD LD 09/19/2017 7:06 PM Signed NUTRITION THERAPY INITIAL ASSESSMENT SERVICE DATE: 09/19/2017 SERVICE TIME: 1620 RECOMMENDED MALNUTRITION DIAGNOSIS: SEVERE PROTEIN-CALORIE MALNUTRITION In the context of Acute Illness or Injury based on: Insufficient Energy Intake: less than or equal to 50% for greater than or equal to 5 days Subcutaneous Fat Loss: Moderate Loss Muscle Loss Severe Loss NUTRITION CARE PLAN: Problem, Etiology and Signs/Symptoms: Suboptimal oral intake related to lack of intakes as evidenced by NPO x 5 days Intervention: Initiate diet based on results of MBS Monitor and Evaluation: Goal: Meet >75% of estimated needs Monitor fluid/electrolyte balance Monitor labs, I/Os, vital signs, weight Discharge Nutrition Recommendations: To be determined Per HPI: This is a 77M with a PMHx of 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 ? 6 mo hx of dysphagia. He got a pill stuck in throat last - went to OSH. Was eating/drinking there until got stuck again. Has been NPO since. He states he is hungry and wants to eat. He is hopeful his MBS will be good. He does not want a corpak. Present Diet Order: NPO Enteral Access: na Nutritional Intake Prior to Admission: nothing to eat or drink for 5 days except this glass of water. GI symptoms: swallowing problems Abdominal Exam: abdomen is soft Is the patient having any pain that is interfering with oral/enteral intake? No ANTHROPOMETRICS Height: 180.3 cm (5' 11) Admission Weight: 53.7 kg (118 lb 6.2 oz) Current Weight: 53.7 kg (118 lb 6.2 oz) Body mass index is 16.51 kg/m?. 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 HT/WT/BMI WEIGHT % wt loss 08/15/2016 60.328 kg 11% x 13 mo 04/11/2017 55.792 kg 3.7% x 5 mo 09/18/2017 53.7 kg Resting Metabolic Rate: 1289 Estimated kilocalorie needs: 1710 - 1995 kilocalories determined by 30 - 35 kcal/kg (57kg) Estimated protein needs: 85 - 100 grams determined by 20% energy NUTRITION FOCUSED PHYSICAL EXAM: Subcutaneous Fat Loss Orbital Moderate Triceps Moderate Mid-axillary at the iliac crest Moderate Muscle Loss Locations: Temporalis Moderate Pectoralis Severe Deltoids Severe Interosseous Severe Latissimus dorsi, trapezius Unable to determine at this time Quadriceps Moderate Gastrocnemius Severe Potential micronutrient deficiency revealed in: No deficiency identified Edema: No Ascites: No Assessment of Functional Status: Functional capacity is unrelated to nutrition status Temperature Max in 24 hours: Temp (24hrs), Av.7 ?C (98 ?F), Min:36.4 ?C (97.6 ?F), Max:37 ?C (98.6 ?F) BP 134/73 Pulse 81 Temp 36.5 ?C (97.7 ?F) (Oral) Resp 20 Ht 180.3 cm (5' 11) Wt 53.7 kg (118 lb 6.2 oz) SpO2 95% BMI 16.51 kg/m? Recent Labs 09/19/1711709/18/17194109/18/17 193 GLUC 105* -- 97 < > -- BUN 15 -- 15 < > -- CREAT 1.02 -- 1.08 < > -- NA 138 -- 143 < > -- K 4.4 -- 4.9 < > -- CHLOR 103 -- 104 < > -- CO2 20* -- 19* < > -- ALB 2.6* -- 3.3* < > -- CRP -- -- 1.1* -- -- HB 12.0* < > -- < > -- HCT 41.6 < > -- < > -- WBC 30.59* < > -- < > -- P -- -- -- -- 3.1 MG 2.0 -- 2.2 < > -- < > = values in this interval not displayed. Potential Signs of Inflammation: leukocytosis, hyperglycemia, hypoalbuminemia, high CRP and imaging studies ALLERGIES No Known Allergies Current Facility-Administered Medications: ergocalciferol (vitamin D2) 50,000 Units cap(s) (DRISDOL) 50,000 Units ORAL q 1 WEEK phytonadione 10 mg oral liquid (VITAMIN K) 10 mg ORAL DAILY piperacillin-tazobactam 3.375 g in dextrose (iso-osmotic) 50 mL (ZOSYN) 3.375 g INTRAVENOUS q 6 H pantoprazole 40 mg injection (PROTONIX) 40 mg INTRAVENOUS DAILY (6 AM) vancomycin 750 mg in D5W 250 mL (VANCOCIN) 0.015 g/kg/dose INTRAVENOUS q 24 HR dextrose 5% in NaCl 0.45% iv infusion 50 mL/hr INTRAVENOUS CONTINUOUS Pressure Injury 09/18/17 1559 Coccyx (Active) Stage Injury 1 09/19/2017 9:00 AM Motor Vehicles Inspector Related Pressure Injury No 09/19/2017 9:00 AM Number of days: 1 MNT Billing Type: Initial Assess/15 min 4 units SIGNATURE: Joselin Tracy Silvestre, MS RDN-AP LD [facility] PATIENT NAME: Sabina Flores DATE: September 19, 2017 TIME: 11:46 AM PAGER: [phone] Aury Jaimes, PT 09/19/2017 5:15 PM Signed Physical Therapy Evaluation SERVICE DATE: 09/19/2017 SERVICE TIME: 1510 to 1533 ROOM: [place] [address] Recommended Discharge Disposition: Home Anticipated Discharge Needs: Supervision at Home Supervision at Home due to: (Decreased activity tolerance) Recommended Discharge Equipment: No equipment needs anticipated PT Recommendations to Nursing: Ambulate without device;With assist of 1 person (assist for line management) Device: (IV pole PRN) PT 6 Clicks Score: 24 ASSESSMENT : Patient Disposition at Start of Session: Supine in Bed Patient Disposition at End of Session: OOB in Chair;Call Hendrickson in Reach (Pt appropriate for OOB activity) Tolerated Full Session Patient presents with decreased activity tolerance due to immobility for ~1 week while at OSH; however, pt demonstrates mod I in all functional mobility with good safety awareness. Pt agreeable to perform HEP and agreeable to PT/dc plan. PT discontinuing services at this time. Please re-consult if new needs arise. PLAN: Treatment Frequency (times per week): Discontinue Therapy Services Reasons Therapy Services Discontinued: No skilled needs Treatment Interventions: Education;Self Care / Home Management;Energy Conservation Training;Joint Mobility;Strengthening;Functional Mobility Training;Balance Training;Neuromuscular Re-education Plan of Care developed with: Patient TREATMENT INTERVENTIONS: Therapy Diagnosis: No Skilled Need Interventions Provided: Evaluation;Gait Training (02991) $ Evaluation-Low (04320) Billed Units: 1 unit Gait Training (01385) Treatment Minutes: 8 1 unit Skilled Intervention(s): Instruction in sit to stand technique with proper hand placement and body positioning at edge of bed/chair, Instruction in stand to sit technique with LE's touching chair/bed and reaching back for surface, Instruction in sequencing, gait pattern, Instruction in correction of gait deviations, Instruction in use of equipment (with and without AD), cues for sequence and pattern, posture, safety, pacing. Educated in safety precautions and modifications during ambulation. Education in activity tolerance, use of pursed lip breathing and means of self monitoring tolerance to activity and exercise. Education of PT role/responsibility, d/c planning, poc, benefits of mobility, importance of OOB activity with nursing assist, use of call light, safety, activity pacing, precautions. ? Total Timed Code Treatment Minutes: 8 Total Treatment Time (minutes): 23 FUNCTIONAL G CODE: PT 6 Clicks Score: 24 (09/19/17 1510) Mobility: Walking and Moving Around Current Status (G8978): (09/19/171509) Mobility: Walking and Moving Around Goal Status (G8979): (09/19/171509) Mobility: Walking and Moving Around Discharge Status (G8980): (09/19/171509) Based on clinical assessment and the score on the 6 Clicks Functional Assessment Tool, the G code and corresponding severity modifiers are documented above. 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 Reason for Physical Therapy Consult : Post acute placement Patient Report: Pt agreeable to PT. I haven't done anything in over a week, but I would like to try to walk. Home Environment Patient Lives With: Significant Other Assistance Available: 24 Hour Entry To Home: Stairs;With Rail Number Of Stairs Into Home: 3 Number Of Stairs To Bed/Bath: 0 Prior Functional Level: Within Functional Limits (+ cooking, cleaning, yard work) OBJECTIVE: CURRENT FUNCTIONAL STATUS: Current Functional Mobility Assist Level Additional Information Rolling Independent Supine to Sit Independent Sit to Supine Independent Scooting Independent Sit to Stand Independent Stand to Sit Independent Bed to Chair Independent Toilet/Commode Gait Supervision Gait Device: IV Pole;None Gait Distance (feet): 100 ea General Gait Deviations: Carol decreased;Shuffling Gait (due to immobility > 1 week) Please see discipline specific clinical documentation flowsheet for complete details for this therapy evaluation/treatment. SIGNATURE: Aury Jaimes, PT PATIENT NAME: Sabina Flores DATE: September 19, 2017 TIME: 5:12 PM PAGER/CONTACT #: [phone] Hernesto Sarkar MD 09/20/2017 11:51 AM Signed Catalino Olsen Progress Note For questions regarding this patient for today, [place] [phone]. 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 Today's Plan: - S AND S eval - XR esophagram - per discussion w/GI, if he passes swallow eval he is okay for a soft diet - EGD with corpak placement, scheduled for tomorrow - continue zosyn, stop vanc today as no source identified - f/u zinc, methylmalonic acid - vitamin D supplementation - vitamin K 10mg PO x3 doses - f/u blood culture, NGTD - t/c heme c/s depending on trend of WBC and platelets - GI c/s, appreciate recs re: esophageal stricture - f/u TTE - continue spiriva and breo-ellipta, duoneb and albuterol PRN Active Hospital Problems Diagnosis - Leukocytosis - on cipro/flagyl at OSH as well as zosyn started prior to transfer - sputum culture at OSH 09/16 positive for malik albicans (presumptive) - DDx includes infection vs malignancy - CRP 1.1, ESR nl, procalcitonin 0.20 (H), lactate nl - CBC with staff review: Microcytic hypochromic red cells without anemia. Leukoerythroblastic Changes. Absolute Monocytosis. Thrombocytosis - urine culture negative - vanc x2 days, no source found Plan: - f/u blood culture - zosyn - t/c ID c/s - Thrombocytosis (HCC) - 432k in 01/2015, progressively rising. 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 Plan: - EGD w/corpak placement under general anesthesia (concern about patient tolerating procedure while awake) - NPO with IVF pending speech and swallow eval - GI c/s, appreciate recs - Shortness of breath - DDx includes COPD, aspiration, pulmonary edema, ?ILD - on nocturnal oxygen PRN at home - CXR on admission not significant for pulmonary edema though NT pro-BNP 3122 on admission (does not appear volume overloaded on exam). Troponin T negative Plan: - f/u TTE - COPD management as under COPD - Tachycardia - TSH elevated at 8.25 with normal free T4 - EKG on admission shows sinus tachycardia Plan: - f/u TTE - History of peptic ulcer - s/p partial gastrectomy 1971 Plan: - PPI (IV while NPO) - COPD (chronic obstructive pulmonary disease) (HCC) - productive cough improving, denies fevers/chills - does not appear to be COPD exacerbation on admission - at home on ventolin PRN and stiolto daily Plan: - start spiriva and breo-ellipta - duoneb and albuterol PRN - Subclinical hypothyroidism - Low serum alkaline phosphatase - Vitamin D deficiency - vitamin D level 6.2 08/2017 Plan: - 50,000 IU vitamin D weekly x2-3 months - Hypoalbuminemia - Prolonged INR - INR 2.2 on admission Plan: - vitamin K 10mg PO x3 doses - Dysphagia - Former tobacco use - S/P partial gastrectomy - Malignant neoplasm of larynx (HCC) - 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 GENERAL: alert, no distress, cooperative HEAD/SINUSES: No significant findings. EYES: PERRLA and EOMI NOSE: Nares normal. Septum midline NECK: supple LUNGS: Lungs clear to auscultation though with decreased breath sounds bilaterally, no wheezes, no crackles CARDIAC: normal S1 and S2; no rubs, murmurs, or gallops ABDOMEN: Abdomen soft, non-tender, no guarding/rebound. BS normal. EXTREMITIES: Extremities normal. No deformities, edema Laboratory Values CBC: Recent Labs 09/20/17 0322 09/19/17 0118 09/18/17222109/18/171939 WBC 21.52* 30.59* 36.45* 45.29* HB 11.4* 12.0* 12.4* 13.9 HCT 40.3 41.6 43.3 48.8 PLT 954* 1,268* 1,355* 1,665* MCV 60.7* 60.6* 60.9* 61.9* RDWCV 24.0* 24.2* 24.5* 25.4* NEUTP -- -- -- 84.0 ABSNEUT -- -- -- 38.04* LYMPHP -- -- -- 3.0 MONOP -- -- -- 9.0 EODINP -- -- -- 1.0 COAG: Recent Labs 09/20/17 0322 09/18/171937 APTT -- 43.3* INR 1.4* 2.2* BMP: Recent Labs 09/20/1732109/19/17 0118 09/18/171941 GLUC 80 105* 97 NA 139 138 143 K 3.5* 4.4 4.9 CHLOR 104 103 104 CO2 23 20* 19* ANION 12 15 20* BUN 10 15 15 CREAT 1.05 1.02 1.08 CHEM: Recent Labs 09/20/172 09/19/17 0118 09/18/171941 ALB 2.6* 2.6* 3.3* TPROT 4.9* 5.1* 6.2* CA 8.1* 8.4* 9.0 MG -- 2.0 2.2 HEPATIC: Recent Labs 09/20/1732109/19/178 09/18/171941 ALKPHOS 68 89 114* ALT 7* 10 10 AST 13* 18 17 TBILI 0.3 0.3 0.4 URINALYSIS: Recent Labs 09/18/172052 SPGR 1.023 UGLUC Negative UBILI Negative UKET 1+* UHB Negative UPROT Negative UWBC 0-5 CARDIAC: Recent Labs 09/19/17 0120 09/18/171941 TROPT <0.010 <0.010 PBNP -- 3,122* Diagnostic tests reviewed for today's visit: Most recent labs Most recent imaging Created by: Teressa Alarcon MD PGY-1 Internal Medicine Resident [facility] Pager: [phone] [facility] STAFF PHYSICIAN NOTE OF PERSONAL INVOLVEMENT IN CARE Chart reviewed, patient examined, and perry elements of progress note of the patient confirmed and agree with the documented findings and plan of care. Hernesto Sarkar MD FAAP FACP [facility] Internal Medicine-Pediatrics [facility] Medicine/IMPACT Pager: [phone] Date of Service: September 20, 2017 Time of Service: 11:50 AM Previous Version TAM COOPER 09/20/2017 8:54 AM Signed PHARMACY VANCOMYCIN DOSING NOTE Patient Name: Sabina Flores Admission Date: 09/18/2017 Date of Consult: 09/20/2017 Time of Consult: 8:53 AM Indication: Bloodstream infection Goal Range: 10-20 mcg/mL RECOMMENDATIONS/PLAN: Pharmacy consulted for vancomycin dosing for Sabina Flores, a 77 year old, male who is being treated with vancomycin for bloodstream infection 1. The primary service has discontinued vancomycin therapy. Pharmacy vancomycin dosing service will sign off. Thank you for allowing us to participate in this patient's care. Please contact pharmacy if questions. JAYJAY TRACEY, PHARMACIST Zarina Lion RN, RN 09/20/2017 11:01 AM Addendum Nursing Progress Note Patient Name: Sabina Flores Patient Location: [facility] [id number] Daily Note: 0940 - pt off unit to barium swallow via wheelchair, in stable condition. 1100 - pt returned to unit via wheelchair, in stable condition. This note was completed by: Zarina Lion RN Previous Version Kaley Brock MS CCC-ONLINE ACTIVIST, CCC/ONLINE ACTIVIST 09/20/2017 12:54 PM [address] [facility] Speech Pathology Consult Modified Barium Swallow 09/20/2017 IMPRESSIONS: Initially patient referred for bedside swallowing evaluation but given history and also orders for esophagram, a modified barium swallow was recommended for reliable assessment along with esophagram study. MD orders were received. Patient demonstrated functional oral skills although slower mastication without dentures in place. Mild pharyngeal dysphagia with residue in vallecular sinuses, trace coating of pyriform sinuses and intermittent trace laryngeal penetration during due to decreased airway closure and after from spillover. Chin tuck posture appeared to improve airway closure and reduce risk for laryngeal penetration during swallows. No aspiration seen during this study. Deviation of contrast around cervical spur at C5-6 but not considered clinically significant. After MBS ruled out aspiration, an esophagram was completed with GI Radiology with following results: SHORT SEGMENT BENIGN-APPEARING NARROWING IN THE PROXIMAL ESOPHAGUS (JUST CAUDAD TO THE CERVICOTHORACIC JUNCTION). MILD VOLUME GASTROESOPHAGEAL REFLUX. MINIMAL ESOPHAGEAL DYSMOTILITY. Please refer to GI Radiology report for details. PROGNOSIS: Favorable with controls. RECOMMENDATIONS: 1. Consider starting a Dysphagia Level 3 diet with thin liquids using controls. If tolerating solids, then may progress to regular as tolerated. 2. Controls: *place dentures for meals *sit upright *opt for moister/softer foods *single drinks with chin tuck posture *controlled bites of foods with effortful swallow and liquid wash to clear vallecular space PLAN: Please page with questions or concerns. 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 Esophageal web requiring esophageal dilation in 2003. Patient admitted 09-18-17 from OSH after EGD 09-14-17 showed obstruction at the proximal esophagus with lodging of pill. Orders receive for bedside swallowing evaluation along with an esophagram to rule out stricture. Given patient's history, and that residue and aspiration can not be reliably ruled out at the bedside, Primary Service called and MBS orders requested and received. 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 - Former tobacco use 09/18/2017 - History of laryngeal cancer 10/27/2014 - Interstitial lung disease (HCC) 02/09/2011 Ct chest 01/2011 - Iron deficiency anemias 01/11/2005 - Low serum alkaline phosphatase 09/20/2017 - Malignant neoplasm of larynx (HCC) 05/31/2017 - PEPTIC ULCER NOS 01/11/2005 - PERS HX OF ALCOHOLISM 01/11/2005 - Polycythemia 05/21/2013 - S/P partial gastrectomy 09/18/2017 - Severe protein-calorie malnutrition (HCC) 11/20/2016 - Shortness of breath 09/18/2017 - Squamous cell carcinoma of larynx (HCC) 02/08/2017 - Subclinical hypothyroidism 09/20/2017 - Tobacco use disorder 01/11/2005 - Unspecified asthma(493.90) 03/03/2011 PAST SURGICAL HISTORY Procedure Laterality Date - COLONOSCOP W/ OR W/O [facility] SPEC 2003 Colonoscopy - COLONOSCOP W/ OR W/O BRSH SPEC 02/20/2013 Colonoscopy - COLONOSCOP W/ OR W/O BRSH SPEC 03/30/16 Colonoscopy - EGD W/O OR W/BRUSH/WASH 2003 EGD - EGD W/O OR W/BRUSH/WASH 02/20/13 EGD - ESOPH W/O [facility] SPEC BALLOON DIL 03-30-2003 Esophageal dilatation - LARYNGOSCOPY W/ BIOPSY 02/06/2014 - PARTIAL GASTRECTOMY 1970 - PAST SURGICAL HISTORY OF Left 08/29/2016 Floor of mouth resection, sialadochoplasty DATE OF ADMISSION: 09/18/2017 HEARING STATUS: WFL for 1:1 BEHAVIORIAL OBSERVATIONS: Alert, Cooperative PRESENT FEEDING METHOD: NPO Diet Level: NPO Dentition: Edentulous Tracheostomy: No O2: Room Air ORAL MECHANISM EVALUATION Facial Symmetry at Rest: Within Functional Limits MANAGEMENT OF SECRETIONS: Within Normal Limits LABIAL Pursing: Within Functional Limits Retraction: Within Functional Limits Strength: Did not test Agility: Within Functional Limits VELAR Elevation / AH: Within Functional Limits Gag Reflex: Did not test LARYNGEAL Wet Vocal Quality: No Volitional Cough: Within Functional Limits Volitional Throat Clear: Did not test LINGUAL Protrusion: Within Functional Limits Retraction: Did not test Lateralization: Within Functional Limits Elevate / Depress: Did not test Strength: Did not test Agility: Within Functional Limits SPEECH PRODUCTION Articulation: Within Functional Limits Intelligibility: Within Functional Limits Vocal Quality: Within Functional Limits Vocal Intensity: Within Functional Limits Rate / Prosody: Within Functional Limits COMMENTS: Oral skills adequate to support speech and oral phase of deglutition. Patient did not have dentures in place for study. ORAL TRIALS POSITION OF PATIENT: Seated in wheelchair VIEW: Lateral, A-P CONSISTENCIES GIVEN: Chan cracker coated with pudding / Barium mixture Pudding mixed with Barium Thin Barium liquid LIQUIDS GIVEN VIA: Regular drinking straw and Cup ORAL PHASE: Even without dentures, the patient was able to functionally masticate solid textures. Bolus manipulation and transit were considered functional. PHARYNGEAL PHASE: Prompt swallow. Poor deflection of epiglottis resulted in residue in valleculae. Trace coating of pyriform sinuses. Intermittently decreased airway closure resulting in trace laryngeal penetration with thin liquids during swallows. Trace laryngeal penetration intermittently after swallows from spillover. No aspiration seen. Cervical spur noted at C5-6 resulting in deviation of bolus but not clinically significant. A-P VIEW: Bilateral residue in valleculae. COMMENTS: Study continued with Esophagram. Please refer to GI Radiology report for details. Results and Recommendations discussed with: patient Speech-Language Pathologist: Kaley Brock MS CCC-ONLINE ACTIVIST Pager: [phone] Iva Barrera RN, RN 09/20/2017 1:42 PM Signed CARE MANAGEMENT PROGRESS NOTE SERVICE DATE: 09/20/2017 SERVICE TIME: 1338 LOS: 2 days Needs Prior to Discharge: To Be Determined Patient discharge date TBD home via daughter transportation. Patient not medically clear for discharge needs EGD on IV fluids and IV antibiotics. Possible weekend discharge no skilled needs at this time will need to reassess. Awaiting further recommendations. Please contact case management for any changes in skilled needs. Thank you SIGNATURE: Iva Barrera RN PATIENT NAME: Sabina Flores DATE: September 20, 2017 TIME: 1:38 PM PAGER/CONTACT #: [phone] Hernesto Sarkar MD 09/21/2017 8:54 AM Signed Catalino Olsen Progress Note For questions regarding this patient for today, [place] [phone]. 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 Today's Plan: - EGD today, may not need Corpak - soft diet after EGD (diet NPO until EGD) with potassium supplementationonce starting diet - continue zosyn - check Jak2 as WBC count and platelet count still elevated - vitamin D supplementation - vitamin K 10mg PO x3 doses - f/u blood culture, NGTD - heme c/s given trend of WBC and platelets - GI c/s, appreciate recs re: esophageal stricture - continue spiriva and breo-ellipta, duoneb and albuterol PRN Active Hospital Problems Diagnosis - Leukocytosis - on cipro/flagyl at OSH as well as zosyn started prior to transfer - sputum culture at OSH 09/16 positive for malik albicans (presumptive) - DDx includes infection vs malignancy - CRP 1.1, ESR nl, procalcitonin 0.20 (H), lactate nl - CBC with staff review: Microcytic hypochromic red cells without anemia. Leukoerythroblastic Changes. Absolute Monocytosis. Thrombocytosis - urine culture negative - vanc x2 days, no source found Plan: - f/u blood culture - zosyn - t/c ID c/s - Thrombocytosis (HCC) - 432k in 01/2015, progressively rising. 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 Plan: - EGD under general anesthesia (concern about patient tolerating procedure while awake) - okay for soft diet after SANDS eval (dysphagia level 3 with thin liquids) - GI c/s, appreciate recs - Shortness of breath - DDx includes COPD, aspiration, pulmonary edema, ?ILD - on nocturnal oxygen PRN at home - CXR on admission not significant for pulmonary edema though NT pro-BNP 3122 on admission (does not appear volume overloaded on exam). Troponin T negative - TTE 09/21: The left ventricle is normal in size. Left?ventricular systolic function is normal. EF = 59 ? 5% (2D 4-ch.) Strain not calculated due to poor image quality. The right ventricle is normal in size. Right ventricular systolic function is low normal. Thickened and calcified aortic valve. There is at least partial fusion of the non-and left coronary cusps. Unable to accurately calculated transaortic valve gradients. On 2-D imaging there is at least mild aortic stenosis. Trivial pericardial effusion next to right ventricle Plan: - COPD management as under COPD - Tachycardia - TSH elevated at 8.25 with normal free T4 - EKG on admission shows sinus tachycardia Plan: - f/u TTE - History of peptic ulcer - s/p partial gastrectomy 1971 Plan: - PPI (IV while NPO) - COPD (chronic obstructive pulmonary disease) (HCC) - productive cough improving, denies fevers/chills - does not appear to be COPD exacerbation on admission - at home on ventolin PRN and stiolto daily Plan: - start spiriva and breo-ellipta - duoneb and albuterol PRN - Subclinical hypothyroidism - Low serum alkaline phosphatase - Vitamin D deficiency - vitamin D level 6.2 08/2017 Plan: - 50,000 IU vitamin D weekly x2-3 months - Hypoalbuminemia - Prolonged INR - INR 2.2 on admission Plan: - vitamin K 10mg PO x3 doses - Dysphagia - Former tobacco use - S/P partial gastrectomy - Malignant neoplasm of larynx (HCC) - 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 April 2014, 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 GENERAL: alert, no distress, cooperative HEAD/SINUSES: No significant findings. EYES: PERRLA and EOMI NOSE: Nares normal. Septum midline NECK: supple LUNGS: Lungs clear to auscultation though with decreased breath sounds bilaterally, no wheezes, no crackles CARDIAC: normal S1 and S2; no rubs, murmurs, or gallops ABDOMEN: Abdomen soft, non-tender, no guarding/rebound. BS normal. EXTREMITIES: Extremities normal. No deformities, edema Laboratory Values CBC: Recent Labs 09/21/1742309/20/1732109/19/1711709/18/17222109/18/171939 WBC 27.88* 21.52* 30.59* 36.45* 45.29* HB 11.7* 11.4* 12.0* 12.4* 13.9 HCT 42.7 40.3 41.6 43.3 48.8 PLT 1,070* 954* 1,268* 1,355* 1,665* MCV 62.2* 60.7* 60.6* 60.9* 61.9* RDWCV 24.9* 24.0* 24.2* 24.5* 25.4* NEUTP -- -- -- -- 84.0 ABSNEUT -- -- -- -- 38.04* LYMPHP -- -- -- -- 3.0 MONOP -- -- -- -- 9.0 EODINP -- -- -- -- 1.0 COAG: Recent Labs 09/21/1742309/20/1732109/18/171937 APTT 35.1* -- 43.3* INR 1.1 1.4* 2.2* BMP: Recent Labs 09/21/1742309/20/1732109/19/1711709/18/171941 GLUC 81 80 105* 97 NA 139 139 138 143 K 3.5* 3.5* 4.4 4.9 CHLOR 103 104 103 104 CO2 26 23 20* 19* ANION 10 12 15 20* BUN 7* 10 15 15 CREAT 1.07 1.05 1.02 1.08 CHEM: Recent Labs 09/21/1742309/20/1732109/19/1711709/18/171941 ALB 2.7* 2.6* 2.6* 3.3* TPROT 5.1* 4.9* 5.1* 6.2* CA 8.2* 8.1* 8.4* 9.0 MG -- -- 2.0 2.2 HEPATIC: Recent Labs 09/21/17 0424 09/20/17 0322 09/19/17 0118 09/18/171941 ALKPHOS 74 68 89 114* ALT 8* 7* 10 10 AST 12* 13* 18 17 TBILI 0.4 0.3 0.3 0.4 URINALYSIS: Recent Labs 09/18/172052 SPGR 1.023 UGLUC Negative UBILI Negative UKET 1+* UHB Negative UPROT Negative UWBC 0-5 CARDIAC: Recent Labs 09/19/17 0120 09/18/171941 TROPT <0.010 <0.010 PBNP -- 3,122* Diagnostic tests reviewed for today's visit: Most recent labs Most recent imaging Created by: Teressa Alarcon MD PGY-1 Internal Medicine Resident [facility] Pager: [phone] [facility] STAFF PHYSICIAN NOTE OF PERSONAL INVOLVEMENT IN CARE Chart reviewed, patient examined, and perry elements of progress note of the patient confirmed and agree with the documented findings and plan of care. Hernesto Sarkar MD FAAP FACP [facility] Internal Medicine-[facility] Medicine/IMPACT Pager: [phone] Date of Service: September 21, 2017 Time of Service: 8:54 AM Previous Version Fidel Ford PA-C 09/21/2017 9:04 AM Incomplete Hematology Consult History and Physical PATIENT NAME: Sabina Flores CLINIC NO.: [id number] ATTENDING PHYSICIAN: DATE OF SERVICE: September 21, 2017 PRIMARY TEAM: REASON FOR CONSULT: Thrombopcytosis HISTORY OF PRESENT ILLNESS: Mr. 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 Patient has been having difficulty swallowing solid food for the last 6 month. He initially presented to [place] ED on 09/13 with abdominal pain and nausea. CT of the abdomen didn't show any acute findings, but revealed a moderately enlarged spleen. An EGD revealed an obstruction at the proximal esophagus and foreign body was seen ( iron pill). Patient was subsequently transferred to [facility] for further care. He has been evaluated by Gastroenterology who feel that his esophageal stricture is likely secondary to radiation and that he will need serial dilations. Hematology consult is being requested for thrombocytosis. CBC at presentation on 09/18 revealed : WBC 36.45, Hgb 12.4, PLT 1.3 M, MCV 60.9. We only had handful of CBC savailavle that shows increasing platelet count since 2014: 432 K (2014)--->529 K ( 2015)-->752 K ( 2017). Also in 2012 and 2013 there was an elevated H/H in the 18's/54's range. 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 - Former tobacco use 09/18/2017 - History of laryngeal cancer 10/27/2014 - Interstitial lung disease (HCC) 02/09/2011 Ct chest 01/2011 - Iron deficiency anemias 01/11/2005 - Low serum alkaline phosphatase 09/20/2017 - Malignant neoplasm of larynx (HCC) 05/31/2017 - PEPTIC ULCER NOS 01/11/2005 - PERS HX OF ALCOHOLISM 01/11/2005 - Polycythemia 05/21/2013 - S/P partial gastrectomy 09/18/2017 - Severe protein-calorie malnutrition (HCC) 11/20/2016 - Shortness of breath 09/18/2017 - Squamous cell carcinoma of larynx (HCC) 02/08/2017 - Subclinical hypothyroidism 09/20/2017 - Tobacco use disorder 01/11/2005 - Unspecified asthma(493.90) 03/03/2011 PAST SURGICAL HISTORY Procedure Laterality Date - COLONOSCOP W/ OR W/O BRSH SPEC 2003 Colonoscopy - COLONOSCOP W/ OR W/O BRSH SPEC 02/20/2013 Colonoscopy - COLONOSCOP W/ OR W/O BRSH SPEC 03/30/16 Colonoscopy - EGD W/O OR W/BRUSH/WASH 2003 EGD - EGD W/O OR W/BRUSH/WASH 02/20/13 EGD - ESOPH W/O [facility] SPEC BALLOON DIL 03-30-2004 Esophageal dilatation - LARYNGOSCOPY W/ BIOPSY 02/06/2014 - PARTIAL GASTRECTOMY 1970 - PAST SURGICAL HISTORY OF Left 08/29/2016 Floor of mouth resection, sialadochoplasty FAMILY HISTORY Problem Relation Age of Onset - Cancer Brother lung cancer - Cancer Brother bone cancer - Cancer Brother brain tumor or cancer - Coronary Artery Disease Father age 64, [place] - None Mother age 95 Social History Marital status: Spouse name: Years of education: Number of children: Social History Main Topics Smoking status: Former Smoker Packs/day: 2.00 Years: 52.00 Types: Cigarettes Quit date: 09/01/2013 Smokeless tobacco: Never Used Alcohol use: Yes 6.0 oz/week Cans of Beer (12oz): 4 per week Drug use: No Sexual activity: No Current hospital medications: potassium chloride 40 mEq CUP 40 mEq ORAL ONCE enoxaparin 40 mg injection (LOVENOX) 40 mg SUBCUTANEOUS q 24 H mupirocin 2% 0.5 g nasal ointment (BACTROBAN) 0.5 g NASAL BID ergocalciferol (vitamin D2) 50,000 Units cap(s) (DRISDOL) 50,000 Units ORAL q 1 WEEK phytonadione 10 mg oral liquid (VITAMIN K) 10 mg ORAL DAILY 0.9% NaCl 3-5 mL 3-5 mL INTRAVENOUS q 12 H albuterol 2.5 mg /3 mL (0.083 %) 2.5 mg (PROVENTIL) 2.5 mg INHALATION q 4 H PRN ipratropium-albuterol 3 mL nebulizer solution (DUONEB) 3 mL INHALATION q 4 H PRN piperacillin-tazobactam 3.375 g in dextrose (iso-osmotic) 50 mL (ZOSYN) 3.375 g INTRAVENOUS q 6 H pantoprazole 40 mg injection (PROTONIX) 40 mg INTRAVENOUS DAILY (6 AM) dextrose 5% in NaCl 0.45% iv infusion 50 mL/hr INTRAVENOUS CONTINUOUS Chlorhexidine Gluconate 0.12 % 15 mL (PERIDEX) 15 mL ORAL q 6 H tiotropium 18 mcg cap(s) and device for inhalation (SPIRIVA) 18 mcg INHALATION DAILY fluticasone-vilanterol 100-25 mcg/dose 1 Inhalation (BREO ELLIPTA) 1 Inhalation INHALATION DAILY ALLERGIES: ALLERGIES No Known Allergies Review Of Systems GENERAL:{ROS-GENERAL:23::No weight loss, malaise or fevers.,SEE HPI} HEENT:{ROS - HEENT:30::Negative for frequent or significant headaches,No changes in hearing or vision, no nose bleeds or other nasal problems} NECK:{ROS -NECK:34::Negative for lumps, goiter, pain and significant neck swelling} RESPIRATORY: {ROS - RESPIRATORY:37::Negative for cough, wheezing or shortness of breath.} CARDIOVASCULAR: {ROS-CARDIAC:53::Negative for chest pain, leg swelling or palpitations.} GASTROINTESTINAL: {ROS- GI:56::Negative for abdominal discomfort, blood in stools or black stools or change in bowel habits} GENITOURINARY: {ROS- :58::No history of dysuria, frequency or incontinence} OPEN HEARTH LABORER: {ROS- OPEN HEARTH LABORER:71::Negative for abnormal vaginal bleeding, abnormal vaginal discharge} MUSCULOSKELETAL: {MUSCULOSKELETAL INTMED ROS:232::Negative for joint pain or swelling, back pain or muscle pain.} NEUROLOGIC:{NEUROLOGIC INT MED ROS:235::Negative for focal numbness or weakness, headaches and dizziness or syncope.} SKIN:{SKIN INT MED ROS:238::Negative for lesions, rash, and itching.} PSYCHIATRIC: {PSYCHIATRIC INT MED ROS:241::Negative for sleep disturbance, mood disorder and recent psychosocial stressors.} HEMATOLOGIC/LYMPHATIC/IMMUNOLOGIC:{HEMATOLOGY/LYMPHATIC/IMMUNOLOGY INT MED ROS:244::Negative for prolonged bleeding, bruising easily or swollen nodes.} ENDOCRINE: {ENDOCRINE INT MED ROS:247::Negative for cold or heat intolerance, polyuria, polydipsia and goiter.} The remainder of the ROS was negative. PHYSICAL EXAMINATION: BP 118/87 Pulse 79 Temp 36.6 ?C (97.8 ?F) (Oral) Resp 16 Ht 180.3 cm (5' 11) Wt 53.7 kg (118 lb 6.2 oz) SpO2 97% BMI 16.51 kg/m? Intake/Output Summary (Last 24 hours) at 09/21/17 0815 Last data filed at 09/21/17 0745 Gross per 24 hour Intake 1301 ml Output 4 ml Net 1297 ml General: No acute distress. AANDO x3. HEENT: No scleral icterus, mild conjunctival pallor, neck supple, no cervical,supraclavicular or axillary adenopathy Cardiac: RRR, normal S1 S2, no murmurs, rubs Pulm: Clear to auscultation, no rhonchi, wheeze Abdomen: Soft, hypoactive bowel sounds, non-distended Extremities: No edema, calf tenderness, or asymmetry. Pedal pulses present. Skin: No jaundice, rashes, lesions, purpura, or ecchymoses Neurological: Alert and oriented x 3, no gross focal motor deficits DIAGNOSTIC STUDIES: Component WBC RBC Hemoglobin Hematocrit MCV MCH MCHC RDW-CV Platelet Count Latest Ref Rng AND Units 3.70 - 11.00 k/uL 4.20 - 6.00 m/uL 13.0 - 17.0 g/dL 39.0 - 51.0 % 80.0 - 100.0 fL 26.0 - 34.0 pG 30.5 - 36.0 g/dL 11.5 - 15.0 % 150 - 400 k/uL 02/10/2013 9.13 6.26 (H) 15.3 49.4 78.9 (L) 24.4 (L) 31.0 23.8 (H) 332 04/08/2013 9.20 6.50 (H) 18.5 (H) 54.3 (H) 83.5 28.5 34.1 18.2 (H) 363 05/20/2013 9.51 6.14 (H) 18.1 (H) 52.6 (H) 85.7 29.5 34.4 15.4 (H) 349 06/19/2013 9.31 6.12 (H) 17.9 (H) 51.9 (H) 84.8 29.2 34.5 14.8 346 08/11/2013 8.59 5.94 16.7 48.3 81.3 28.1 34.6 15.3 (H) 328 01/30/2014 7.96 6.37 (H) 16.0 47.9 75.2 (L) 25.1 (L) 33.4 15.6 (H) 398 04/07/2014 02/10/2015 7.47 6.49 (H) 14.5 45.8 70.6 (L) 22.3 (L) 31.7 18.1 (H) 432 (H) 08/17/2015 8.53 7.00 (H) 14.1 46.1 65.9 (L) 20.1 (L) 30.6 17.8 (H) 529 (H) 08/15/2016 11.30 (H) 7.54 (H) 13.6 48.8 64.7 (L) 18.0 (L) 27.9 (L) 21.5 (H) 752 (H) 09/18/2017 36.45 (H) 7.11 (H) 12.4 (L) 43.3 60.9 (L) 17.4 (L) 28.6 (L) 24.5 (H) 1,355 (H) 09/19/2017 30.59 (H) 6.87 (H) 12.0 (L) 41.6 60.6 (L) 17.5 (L) 28.8 (L) 24.2 (H) 1,268 (H) 09/20/2017 21.52 (H) 6.64 (H) 11.4 (L) 40.3 60.7 (L) 17.2 (L) 28.3 (L) 24.0 (H) 954 (H) 09/21/2017 27.88 (H) 6.87 (H) 11.7 (L) 42.7 62.2 (L) 17.0 (L) 27.4 (L) 24.9 (H) 1,070 (H) Component Vitamin B12 Folate Latest Ref Rng AND Units 232 - 1,245 pg/mL >4.7 ng/mL 01/19/2004 282 04/08/2013 810 (H) 06/19/2013 318 09/19/2017 345 09/20/2017 365 6.8 Component Latest Ref Rng AND Units 01/19/2004 01/11/2005 04/08/2013 09/19/2017 Iron 41 - 186 ug/dL 24 (A) 49 133 23 (L) TIBC 232 - 386 ug/dL 371 292 324 200 (L) Transferrin Saturation 15 - 57 % 6 (A) 17 41 12 (L) Ferritin 30.3 - 565.7 ng/mL 8.5 (A) 47.1 223.1 Component Latest Ref Rng AND Units 06/19/2013 09/19/2017 Retic % 0.4 - 2.0 % 2.2 (H) Abs Retic 0.0180 - 0.1000 M/uL 0.137 (H) LD 135 - 225 U/L 415 (H) Haptoglobin 31 - 238 mg/dL 158 ASSESSMENT AND PLAN: Mr. Flores is a 77 year old male Plan: - Pt seen and discussed with Fidel Ford PA-C Pager: Iva Barrera RN, RN 09/21/2017 10:20 AM Signed CARE MANAGEMENT PROGRESS NOTE SERVICE DATE: 09/21/2017 SERVICE TIME: 1018 LOS: 3 days Needs Prior to Discharge: Ready for Discharge NO SKILLED NEEDS. POSSIBLE WEEKEND DISCHARGE. Patient discharge date TBD home via daughter transportation. Patient not medically clear needs evaluation from Hematology. Awaiting further recommendations. For weekend case management needs, please page [phone]. Thank you. SIGNATURE: Iva Barrera RN PATIENT NAME: Sabina Flores DATE: September 21, 2017 TIME: 10:18 AM PAGER/CONTACT #: [phone] Joselin Rivers, MS RD LD 09/21/2017 12:10 PM Incomplete NUTRITION THERAPY PROGRESS NOTE SERVICE DATE: 09/21/2017 SERVICE TIME: RECOMMENDED DIAGNOSIS: SEVERE PROTEIN-CALORIE MALNUTRITION per Registered Dietitian on 09/19 NUTRITION CARE PLAN Intervention: {Collaboration statement:407377} {Coordination of Care:5592520::Coordination of Care:} {Monitor and Evaluation :9049280::Monitor and Evaluation:} Discharge Nutrition Recommendations: { :636819} Interval History: Phone conversation with resident this morning re: need for corpak. Pt had stated his aversion to same earlier this morning although per resident was scheduled for same with EGD today. MBs yesterday - no aspiration; prognosis: favorable with controls. She recommended starting with D3 diet and advancing to regular as tolerated. Pt willing to drink 2-3 supplements, although not Ensure - they give me diarrhea. Pt needs to wear his dentures for meals. Recommend chewable vitamins at home. Present Diet Order: NPO (for EGD) Nutritional Intake: took 100% dinner last night (only meal he's had) - 573kcal and 29g pro. Admission Weight: 53.7 kg (118 lb 6.2 oz) Current Weight: 53.7 kg (118 lb 6.2 oz) Body mass index is 16.51 kg/m?. underweight Estimated kilocalorie needs: 1710 - 1994 kilocalories determined by 30 - 35 kcal/kg (57kg) Estimated protein needs: 85 - 100 grams determined by 20% energy needs current wt given positive fluid balance. MNT Billing Type: {IP NUTR MNT BILLING TYPE:93720} SIGNATURE: Joselin Rivers, MS RD LD PATIENT NAME: Sabina Flores DATE: September 21, 2017 TIME: 12:02 PM PAGER: Progress Notes (OTOL MAIN CA 3): Hamida Garcia, RN, RN 09/17/2017 10:21 AM Signed Per secretary office clerk patients called with the following information' Dr Meza [phone] Ray Mohamud MD 09/17/2017 6:20 PM Signed After being transfered countless times and on the phone for over 20 minutes, Dr. Meza told the administor I was speaking to that he did not request to speak to anyone at the [facility]. If a doctor would like to speak to us, please have him/her contact our office directly, or at least leave his name and direct number/extension. Ray Mohamud MD CHEST WITH CONTRAST Observed: 09/17/2017 Status: F Source: [place] 8:11 AM [facility] [place] Imaging Services [address] [place] [address] Chest WITH Contrast MR#: [id number] Acct: [id number] Name: SABINA FLORES Rep #: [id number] : 1940 M 77 From: Jr Desai MD PCP: Varun Wang MD Status: ADM IN Study: Chest WITH Contrast Date of Exam: 09/17/17 Exam# [id number] Ordering Dr: Hugo Meza MD STUDY: CT CHEST WITH CONTRAST REASON FOR EXAM: Male, 77 years old. The patient has a history of a pulmonary nodule. Vocal cords and tongue cancer. RADIATION DOSAGE (If Supplied By Facility): CTDIvol = ( 9.48 ) mGy, DLP = ( 222.96 ) mGycm TECHNIQUE: Transaxial imaging was performed following intravenous administration of 100 ml of Isovue 300 contrast material. Multiplanar coronal and sagittal images were reformatted. Individualized dose optimization techniques were used for this CT. COMPARISON: Comparison is made with prior study dated November 15, 2016. FINDINGS: Small bilateral pleural effusions. Bibasilar atelectasis and/or early infiltrate superimposed on chronic interstitial scarring. Increased interstitial markings are also seen in the posterior aspect of the right upper lobe suggestive scarring. There is evidence of emphysematous changes in the upper lobes. Focal linear scarring is also seen in the left apex. There is a faint nodular density measuring 7.6 mm in the anterior aspect of the right upper lobe as seen on image #79 on the axial images. There are calcifications of the coronary arteries. Normal mediastinum. Enlarged right hilar lymph node measuring 2.3 cm. This is unchanged. Normal enhanced pulmonary arteries. There is atherosclerotic calcification of the aortic arch . There are multi-level degenerative changes of the thoracic spine. There is no demonstrated abnormality of the visualized upper abdomen. CT/Chest WITH Contrast IMPRESSION: Small bilateral pleural effusions with underlying bibasilar atelectasis and/or infiltrate superimposed on scarring in the lower lobes as well as in the upper lobes. Faint nodular density in the anterior aspect of the right upper lobe. Electronically Signed: Jr Desai MD at 12:54 EDT Tel [phone], Service support , CC: Hugo Meza MD; Varun Wang MD Lining Scrubber: Signed BASIC METABOLIC Collected: 09/17/2017 Status: F Source: [place] PROFILE (BMP) 5:54 AM [facility] [place] TYPE CODE TESTS RESULT OUT OF RANGE REFERENCE UNITS LAB L501.0100 74-106 mg/dL Normal GLU 78 Result Comment: Please note revised GLUCOSE reference range effective 2017. LAB L501.1000 7-18 mg/dL Normal BUN 11 LAB L501.1100 0.70-1.30 mg/dL Normal CREAT,SERUM 0.76 Result Comment: The validity of the calculated GFR AND GFRAA in patients over 70 years has not been determined. Clinical correlation is essential. LAB L501.1110 >60 mL/min Normal EST GFR 105 Result Comment: Non- GFR Calc LAB L501.1115 >60 mL/min Normal EST GFR - AA 128 Result Comment: GFR Calc LAB L501.1255 ml/min Normal Estimated CRCL 44.71 LAB L501.1300 10-20 RATIO Normal BUN/CRE 14.5 LAB L501.2200 8.5-10 mg/dL Low .1 CA 8.3 LAB L501.5300 136-14 mmol/L Normal 5 NA 137 LAB L501.5600 3.5-5. mmol/L Normal 1 K 4.4 LAB L501.5900 98-107 mmol/L High CL 108 LAB L501.6100 21.0-3 mmol/L Normal 2.0 CO2 23.0 LAB L501.6200 5-15 Normal GAP 6 Performed By: #### L500.2500 #### [facility] [address] [place], [place] [address] [place], [address] CBC W/DIFF, AUTOMATED Collected: 09/17/2017 Status: C Source: [place] 5:54 AM [facility] [place] TYPE CODE TESTS RESULT OUT OF RANGE REFERENCE UNITS LAB L100.1000 4.4-11.0 K/mm3 High WBC 25.7 LAB L100.1200 4.6-6.2 M/mm3 High RBC 6.55 LAB L100.1300 13.0-16.5 g/dl Low HGB 11.5 LAB L100.1400 40-54 % Low HCT 39.8 LAB L100.1500 80-94 fL Low MCV 60.8 LAB L100.1600 27.0-32.0 pg Low MCH 17.6 LAB L100.1700 32-36 g/gl Low MCHC 28.9 LAB L100.1810 11.6-14.6 % High RDW CV 21.5 LAB L100.1820 35.1-43.9 fl Normal RDW SD 43.8 LAB L100.1900 150-450 K/mm3 High alert PLT 1390 Result Comment: RESULTS CALLED TO [facility] 09/17/17 0719 Jerome Grajeda. REPORT READ BACK BY SAME. LAB L100.2000 6.2-12.0 fl Normal MPV 8.8 LAB L100.2100 47-70 % High NEUT% 83.9 LAB L100.2200 19-41 % Low LY% 3.1 LAB L100.2300 0-10 % Normal MONO% 5.7 LAB L100.2400 0-5 % Normal EO% 3.3 LAB L100.2500 0-1 % High BASO% 2.2 LAB L100.2550 0.0-0.9 % High IM GRAN % 1.800 Result Comment: IG% - Immature Granulocytes (promyelocytes, myelocytes and metamyelocytes) > 1% indicates that a LEFT SHIFT is Present. LAB L100.2620 2.0-7.7 X10 3/uL High Absolute Neut 21.6 LAB L100.2720 0.83-4.51 X10 3/ul Low Absolute Lymph 0.80 LAB L100.4500 Normal SMEAR COMMENT Result Comment: MODERATE NUMBER PF MACROTHROMBOCYTES LAB L100.5500 ADEQ PLT EST Normal MKD INC LAB L100.7300 ANISO 2+ Normal LAB L100.7700 MICROCYTES 4+ Normal LAB L100.8100 CRENATED RBC 2+ Normal LAB L100.8200 OVALOCYTE 1+ Normal LAB L100.8400 High SCHISTOCYTES 2+ LAB L100.9900 PATH REV Normal Reviewed Result Comment: Neutrophilic leukocytosis with left shift. Microcytic anemia. Thrombocytosis. Clinical correlation necessary. Chemo Choudhury M.D. 09/17/17 Pathologist comment added AMENDED REPORT 09/17/17 1138 PATH REV previously reported as: August martin Performed By: #### L100.0100 #### [facility] [address] [place], [address] SR-CHEST WITH Observed: 09/17/2017 Status: F Source: [place] CONTRAST IMPORT 12:00 AM [facility] REPOSITORY Images were obtained outside of [facility] [id number] Observed: 09/16/2017 Status: F Source: [place] CULTURE, SPUTUM 11:00 AM [facility] [place] Gram Stain Acceptable Specimen? Yes (<25 Epithelial cells per/lpf) Gram Stain 1+ White Blood Cells Rare Epithelial cells Rare Gram positive cocci Resp. Culture No Haemophilus, Streptococcus pneumoniae, beta-hemolytic Streptococcus or Staphylococcus aureus isolated. ORGANISM 1: Presumptive C albicans Amount Growth 2+ Performed By: #### M100.0800 #### [facility] [address] [place], [address] BASIC METABOLIC Collected: 09/16/2017 Status: F Source: [place] PROFILE (BMP) 5:24 AM [facility] TYPE CODE TESTS RESULT OUT OF RANGE REFERENCE UNITS LAB L501.0100 74-106 mg/dL Normal GLU 94 Result Comment: Please note revised GLUCOSE reference range effective 2017. LAB L501.1000 7-18 mg/dL Normal BUN 13 LAB L501.1100 0.70-1.30 mg/dL Normal CREAT,SERUM 0.79 Result Comment: The validity of the calculated GFR AND GFRAA in patients over 70 years has not been determined. Clinical correlation is essential. LAB L501.1110 >60 mL/min Normal EST GFR 101 Result Comment: Non- GFR Calc LAB L501.1115 >60 mL/min Normal EST GFR - AA 122 Result Comment: GFR Calc LAB L501.1255 ml/min Normal Estimated CRCL 44.71 LAB L501.1300 10-20 RATIO Normal BUN/CRE 16.4 LAB L501.2200 8.5-10 mg/dL Normal .1 CA 8.5 LAB L501.5300 136-14 mmol/L Normal 5 NA 139 LAB L501.5600 3.5-5. mmol/L Normal 1 K 4.5 LAB L501.5900 98-107 mmol/L High CL 109 LAB L501.6100 21.0-3 mmol/L Normal 2.0 CO2 23.0 LAB L501.6200 5-15 Normal GAP 7 Performed By: #### L500.2500 #### [facility] [address] [place], [address] CBC W/DIFF, AUTOMATED Collected: 09/16/2017 Status: C Source: [place] 5:24 AM [facility] [place] TYPE CODE TESTS RESULT OUT OF RANGE REFERENCE UNITS LAB L100.1000 4.4-11.0 K/mm3 High WBC 29.8 LAB L100.1200 4.6-6.2 M/mm3 Normal RBC 6.20 LAB L100.1300 13.0-16.5 g/dl Low HGB 10.7 LAB L100.1400 40-54 % Low HCT 37.8 LAB L100.1500 80-94 fL Low MCV 61.0 LAB L100.1600 27.0-32.0 pg Low MCH 17.3 LAB L100.1700 32-36 g/gl Low MCHC 28.3 LAB L100.1810 11.6-14.6 % High RDW CV 21.1 LAB L100.1820 35.1-43.9 fl Normal RDW SD 43.8 LAB L100.1900 150-450 K/mm3 High alert PLT 1301 Result Comment: CRITICAL VALUE VERIFIED. CALLED TO CECILLE ALTAMIRANO 09/16/17 0643 Cassidy Demarco. RESULTS READ BACK BY SAME . LAB L100.2000 6.2-12.0 fl Normal MPV 8.9 LAB L100.2100 47-70 % High NEUT% 90.4 LAB L100.2200 19-41 % Low LY% 2.0 LAB L100.2300 0-10 % Normal MONO% 4.7 LAB L100.2400 0-5 % Normal EO% 0.1 LAB L100.2500 0-1 % Normal BASO% 1.0 LAB L100.2550 0.0-0.9 % High IM GRAN % 1.800 Result Comment: IG% - Immature Granulocytes (promyelocytes, myelocytes and metamyelocytes) > 1% indicates that a LEFT SHIFT is Present. LAB L100.2620 2.0-7.7 X10 3/uL Absolute Neut High 27.0 LAB L100.2720 0.83-4.51 X10 3/ul Low Absolute Lymph 0.59 LAB L100.5500 ADEQ PLT EST Normal MKD INC LAB L100.5650 PLT MORPH Normal GIANT LAB L100.7300 ANISO Normal 2+ LAB L100.7500 POLYCHROMASIA Normal 1+ LAB L100.7700 MICROCYTES Normal 1+ LAB L100.8200 OVALOCYTE Normal RARE LAB L100.9900 PATH REV Normal Reviewed Result Comment: Neutrophilic leukocytosis with left shift. Microcytic anemia. Thrombocytosis. Clinical correlation necessary. Chemo Choudhury M.D. 09/17/17 Pathologist comment added AMENDED REPORT 09/17/17 1133 PATH REV previously reported as: August martin Performed By: #### L100.0100 #### [facility] [address] [facility] [place], [address] BLOOD GASES BY CPS Collected: 09/15/2017 Status: F Source: [place] 9:29 AM [facility] [place] TYPE CODE TESTS RESULT OUT OF RANGE REFERENCE UNITS LAB L9000.9990 Normal BLD GAS TYPE ART LAB L9001.1000 Normal SITE R Radial LAB L9001.1010 Normal SALONI TEST POS LAB L9001.1050 O2 Normal Delivery Dev Vent Mask LAB L9001.1074 Normal FI02 50 LAB L9001.1104 Normal Results To HOSP MD LAB L9001.1105 Normal Time Given 925 LAB L9001.1110 7.35-7.45 pH Normal - I-STAT 7.39 LAB L9001.1210 35-45 mmHg Normal pCO2 - ISTAT 35.8 LAB L9001.1310 75-100 mmHG Normal PO2 I-STAT 75 LAB L9001.2300 22-26 mmol/L Low HCO3 ISTAT 21.8 LAB L9001.2400 -2 to +2 mmol/L Low BE ISTAT -3 LAB L9001.2415 mmol/L Normal TOTAL CO2 23 ISTAT LAB L9001.2425 95-99 % Normal SO2 ISTAT 95 Performed By: #### L9000.0800 #### [facility] Point of Care [address] [place] [address] CHEST 1 VIEW Observed: 09/15/2017 Status: F Source: [place] (PORTABLE) 9:06 AM [facility] [place] Imaging Services [address] [place] [address] Chest 1 View (Portable) MR#: [id number] Acct: [id number] Name: SABINA FLORES Rep #: [id number] : 1940 M 77 From: Lino Zheng MD PCP: Varun Wang MD Status: ADM IN Study: Chest 1 View (Portable) Date of Exam: 09/15/17 Exam# [id number] Ordering Dr: Anjel Leong MD STUDY: X-RAY CHEST REASON FOR EXAM: Male, 77 years old. Worsening shortness of breath TECHNIQUE: Single AP portable view of the chest. COMPARISON: Yesterday FINDINGS: Lungs are hyperexpanded with chronic interstitial changes and persistent opacifications in both lung bases suggesting superimposed edema. No demonstrated effusion. There is little significant interval change. Normal size heart. Normal mediastinum and malia. Normal visualized pulmonary arteries. Normal visualized aortic arch and descending thoracic aorta. Normal visualized thoracic spine. Normal visualized ribs, clavicles, and shoulders. There is no demonstrated abnormality of the visualized soft tissue structures of the upper abdomen. RAD/Chest 1 View (Portable) IMPRESSION: No interval change Electronically Signed: Flako Zheng MD at 10:28 EDT , Service support , CC: Anjel Leong MD; Varun Wang MD Lining Scrubber: Signed BASIC METABOLIC Collected: 09/15/2017 Status: F Source: [place] PROFILE ([facility]) 5:55 AM [facility] [place] TYPE CODE TESTS RESULT OUT OF RANGE REFERENCE UNITS LAB L501.0100 74-106 mg/dL Normal GLU 77 Result Comment: Please note revised GLUCOSE reference range effective 2017. LAB L501.1000 7-18 mg/dL Normal BUN 14 LAB L501.1100 0.70-1.30 mg/dL Normal CREAT,SERUM 0.88 Result Comment: The validity of the calculated GFR AND GFRAA in patients over 70 years has not been determined. Clinical correlation is essential. LAB L501.1110 >60 mL/min Normal EST GFR 89 Result Comment: Non- GFR Calc LAB L501.1115 >60 mL/min Normal EST GFR - AA 108 Result Comment: GFR Calc LAB L501.1255 ml/min Normal Estimated CRCL 50.81 LAB L501.1300 10-20 RATIO Normal BUN/CRE 15.9 LAB L501.2200 8.5-10 mg/dL Low .1 CA 8.1 LAB L501.5300 136-14 mmol/L Normal 5 NA 141 LAB L501.5600 3.5-5. mmol/L Normal 1 K 3.9 LAB L501.5900 98-107 mmol/L High CL 110 LAB L501.6100 21.0-3 mmol/L Normal 2.0 CO2 24.0 LAB L501.6200 5-15 Normal GAP 7 Performed By: #### L500.2500 #### [facility] [address] [place], [address] CBC W/DIFF, AUTOMATED Collected: 09/15/2017 Status: C Source: [place] 5:55 AM [facility] [place] TYPE CODE TESTS RESULT OUT OF RANGE REFERENCE UNITS LAB L100.1000 4.4-11.0 K/mm3 High WBC 27.7 LAB L100.1200 4.6-6.2 M/mm3 High RBC 6.52 LAB L100.1300 13.0-16.5 g/dl Low HGB 11.3 LAB L100.1400 40-54 % Normal HCT 40.3 LAB L100.1500 80-94 fL Low MCV 61.8 LAB L100.1600 27.0-32.0 pg Low MCH 17.3 LAB L100.1700 32-36 g/gl Low MCHC 28.0 LAB L100.1810 11.6-14.6 % High RDW CV 20.6 LAB L100.1820 35.1-43.9 fl Normal RDW SD 43.8 LAB L100.1900 150-450 K/mm3 High alert PLT 1291 Result Comment: CRITICAL VALUE VERIFIED. CALLED TO THESS 09/15/17 0727 Iraida Burger. RESULTS READ BACK BY SAME . LAB L100.2000 6.2-12.0 fl Normal MPV 9.2 LAB L100.2100 47-70 % High NEUT% 88.9 LAB L100.2200 19-41 % Low LY% 3.7 LAB L100.2300 0-10 % Normal MONO% 2.9 LAB L100.2400 0-5 % Normal EO% 1.6 LAB L100.2500 0-1 % High BASO% 2.1 LAB L100.2550 0.0-0.9 % Normal IM GRAN % 0.800 Result Comment: IG% - Immature Granulocytes (promyelocytes, myelocytes and metamyelocytes) > 1% indicates that a LEFT SHIFT is Present. LAB L100.2620 2.0-7.7 X10 3/uL Absolute Neut High 24.7 LAB L100.2720 0.83-4.51 X10 3/ul Absolute Lymph Normal 1.04 LAB L100.5500 ADEQ PLT EST Normal MKD INC LAB L100.7600 HYPOCHROMASIA Normal 1+ LAB L100.7700 MICROCYTES Normal 1+ LAB L100.8200 OVALOCYTE Normal 1+ LAB L100.9900 PATH REV Normal Reviewed Result Comment: Neutrophilic leukocytosis. Microcytic anemia. Thrombocytosis. Clinical correlation necessary. Chemo Choudhury M.D. 09/17/17 Pathologist comment added AMENDED REPORT 09/17/17 1206 PATH REV previously reported as: August martin Performed By: #### L100.0100 #### [facility] [address] [place], [address] ABD DECUB AND/OR Observed: 09/15/2017 Status: F Source: [place] ERECT([facility] 12:00 AM [facility] Imaging Services [address] [place] [address] Abd Decub and/or Erect([facility] MR#: [id number] Acct: [id number] Name: SABINA FLORES Raúl Rep #: [id number] : 1940 M 77 From: Lino Zheng MD PCP: Varun Wang MD Status: ADM IN Study: Abd Decub and/or Erect([facility] Date of Exam: 09/15/17 Exam# [id number] Ordering Dr: Reji Marin DO STUDY: X-RAY - ABDOMEN/PELVIS REASON FOR EXAM: Male, 77 years old. Diffuse abdominal pain TECHNIQUE: Supine and decubitus films of the abdomen, 4 total views obtained COMPARISON: Yesterday FINDINGS: Normal visualized lung bases. Multiple borderline distended air-filled loops of small bowel on the supine films with air-fluid levels noted on decubitus films findings consistent with ileus. Retained stool noted in the colon. There is no demonstrated free abdominal air. The visualized liver, spleen and kidneys are grossly normal in size and morphology. Normal soft tissue structures. There are diffuse degenerative changes of the visualized lumbar spine. RAD/Abd Decub and/or Erect(Portabl IMPRESSION: Small bowel ileus Electronically Signed: Flako Zheng MD at 10:31 EDT , Service support , CC: Reji Marin DO; Varun Wang MD Lining Scrubber: Signed OPERATIVE REPORT Observed: 09/14/2017 Status: F Source: [place] 8:29 PM [facility] Medical Records Department [address] [place] [address] Operative Report 09/14/172026 MR#: [id number] Acct: [id number] Name: SABINA FLORES Raúl Rep #: [id number] : 1940 77 From: Yang Becerril MD PCP: Varun Wang MD Status: ADM IN Y Location: MS3 [id number] Problem List (1) Dysphagia Status: Acute Qualifiers: Dysphagia type: pharyngeal phase Qualified Code(s): R13.13 - Dysphagia, pharyngeal phase (2) Foreign body in esophagus Status: Acute Qualifiers: Encounter type: initial encounter Qualified Code(s): T18.108A - Unspecified foreign body in esophagus causing other injury, initial encounter Report of Operation Date of Procedure: 09/14/17 Pre-Operative Diagnosis: Impacted pill in the proximal esophagus Post-Operative Diagnosis: 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 The EGD scope was placed into the mouth and into the pharynx. This was guided into the proximal esophagus where an obstruction and was met. While trying to use the 3-prong graspers to grasp the pill it slid forward into the distal esophagus into pieces. The scope was advanced through the stricture and was barely able to fit. The esophageal tissue was friable and there was some minor bleeding. The scope was withdrawn and this bleeding was monitored and it was felt to be very minor. The scope was slowly withdrawn and the patient was awoken and taken to PACU in stable condition. For fear of worsening the bleeding I did not pass the scope beyond the midesophagus. 09/14/172028 <Electronically signed by Yang Becerril MD> Date Yang Becerril MD CC: Yang Becerril MD; Varun Wang MD Signed CONSULTATION Observed: 09/14/2017 Status: F Source: [place] 6:22 PM [facility] Medical Records Department [address] [place] [id number] Consultation 09/14/17 1816 MR#: [id number] Acct: [id number] Name: SABINA FLORES Rep #: [id number] : 1940 77 From: Yang Becerril MD PCP: Varun Wang MD Status: ADM IN Location: [facility] [id number] Problem List (1) Dysphagia Status: Acute Qualifiers: Dysphagia type: pharyngeal phase Qualified Code(s): R13.13 - Dysphagia, pharyngeal phase (2) Foreign body in esophagus Status: Acute Qualifiers: Encounter type: initial encounter Qualified Code(s): T18.108A - Unspecified foreign body in esophagus causing other injury, initial encounter Reason for Consult Date of Consultation: 09/14/17 Reason for Consultation: Impacted foreign body in esophagus History of Present Illness: The patient is a 77 year old M who has been admitted for enteritis since yesterday. He was given an iron pill today which got caught in his throat. He is unable to swallow or throw it up. He reports his discomfort is a 6 or 7 out of 10. 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 He says he gets intermittent vocal cord scopes and his last one was one month ago and was normal. The patient reports he has been choking on food and pills for the last few years. He reports that he is not eating as much as he should. 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 vocal cord lesion. Psychiatric History: No pertinent psych hx Smoking Status: Former smoker Alcohol: None Drugs: None - *Family History Maternal History Items: No pertinent history, - - No cancer Paternal History Items: No pertinent history Review of Systems Constitutional: Reports: Anorexia. Denies: Fever HEENT: Reports: Difficulty Swallowing Cardiovascular: Denies: Chest Pain Respiratory: Reports: Cough Gastrointestinal: Reports: Nausea. Denies: Abdominal Pain, Vomiting Genitourinary: Denies: Dysuria Skin: Denies: Dryness Hematologic/ Lymphatic: Reports: - - Thrombocytosis Patient Problems: Active and Suspected Problems (Last Reviewed 05/03/17 @ 09:16 by Carmen Graham) Enteritis (Acute) Ileus (Acute) Leukocytosis (Acute) JULIANA (acute kidney injury) (Acute) Dysphagia (Acute) Foreign body in esophagus (Acute) - Physical Exam General: Alert, Oriented x3, Cooperative HEENT: Atraumatic Neck: Supple, Trachea Midline Lungs: Normal air movement Cardiovascular: Regular rate, Regular Rhythm Abdomen: Soft, Non Tender, Non-Distended Skin: No rashes Musculoskeletal: Cachexia, Muscle Wasting Neurological: Cranial nerves II-XII grossly intact Psych/Mental Status: Normal Affect Vital Signs Temp Pulse Resp BP Pulse Ox 98 F 94 20 H 108/69 97 09/14/17 16:37 09/14/17 16:37 09/14/17 16:37 09/14/17 16:37 09/14/17 16:37 Oxygen Flow Rate (L/min) 2 Oxygen Delivery Method Nasal Cannula Weight: 112 lb 10.499 oz Body Mass Index (BMI) 15.7 Intake and Output for Last 24 Hours Intake Total 3566 / 3566 Balance 3566 / 3566 Laboratory Tests Past 24 Hrs WBC 19.1 H RBC 6.07 Hgb 10.5 L Hct 37.0 L WBC RBC Hgb Hct MCV MCH MCHC RDW RDW Differential Plt Count MPV Immature Gran % (Auto) Neut % (Auto) Clinical Impression(s) from Imaging Studies Abdomen/Pelvis CT 09/13/17 19:22 IMPRESSION: 1. Nonspecific bowel gas pattern with scattered fluid filled loops of small bowel with scattered air-fluid levels however, no dilation. Gaseous distended loops of colon with fecal retention. Normal appendix. Findings could be related to enteritis/early ileus. 2. Mild to moderate splenomegaly. Electronically Signed: Papi Gleason DO at 21:09 EDT Tel , Service support , Chest X-Ray 09/13/17 20:22 IMPRESSION: COPD/emphysema with bronchiectasis. Findings concerning for developing infiltrate or mass in the right midlung field. Consider short-term follow-up or further evaluation with CT. at 2158 Reported and signed by: Cinthya Beck MD Electronically Signed: Cinthya Beck MD at 21:53 EDT Tel , Service support , Abdomen X-Ray 09/14/17 05:55 IMPRESSION: Normal bowel gas pattern. No free air is detected. Electronically Signed: Dawit Mason MD at 5:54 EDT Tel , Service support , Assessment/Plan Active and Suspected Problems (Last Reviewed 05/03/17 @ 09:16 by Carmen Graham) Enteritis (Acute) Ileus (Acute) Leukocytosis (Acute) JULIANA (acute kidney injury) (Acute) Dysphagia (Acute) Foreign body in esophagus (Acute) 77-year-old male with foreign body impaction 1. The patient believes he has a pill stuck in his throat. He does have a history of radiation to the area. 2. 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 The patient may need a swallow study and probably would benefit from a PEG tube in the future. 3. I did offer the patient EGD to remove the foreign body in the operating room. I went over the risks including but not limited to bleeding, perforation of the GI tract, aspiration of the foreign body, airway compromise. The patient understands the risks and is willing to proceed with surgery. Yang Becerril MD Pager: [facility] [address] [place] [address] Office: 09/14/17 1944 <Electronically signed by Yang Becerril MD> Date Yang Becerril MD Cosigner Signature (if applicable): Date CC: Yang Becerril MD; Varun Wang MD Signed ABDOMEN SINGLE VIEW Observed: 09/14/2017 Status: F Source: [place] 6:15 PM [facility] RE[facility]IT[facility] Imaging Services [address] [place] [address] Abdomen Single View MR#: [id number] Acct: [id number] Name: SABINA FLORES Rep #: [id number] : 1940 77 From: Cinthya Beck MD PCP: Varun Wang MD Status: ADM IN Study: Abdomen Single View Date of Exam: 09/14/17 Exam# [id number] Ordering Dr: Yang Becerril MD XR Abdomen 1 View INDICATION: patient took iron pill and feels that it is stuck in his throat, verifying if pill is stuck or has been successfully swallowed COMPARISON: Earlier Same day TECHNIQUE: Frontal view of the abdomen FINDINGS: Only few medications are radiopaque, therefore, the location of the patella cannot be identified on plain film. Surgical clips are again noted at the GE junction. This otherwise no radiopaque foreign body seen. The bowel gas pattern is nonobstructive. RAD/Abdomen Single View IMPRESSION: No radiopaque foreign body seen. Please note that medication may not be radiopaque. at 1911 Reported and signed by: Cinthya Beck MD Electronically Signed: Cinthya Beck MD at 19:10 EDT Tel , Service support , CC: Yang Becerril MD; Varun Wang MD Lining Scrubber: Signed CHEST 1 VIEW Observed: 09/14/2017 Status: F Source: [place] (PORTABLE) 5:36 PM [facility] RE[facility] Imaging Services [address] [place] [address] Chest 1 View (Portable) MR#: [id number] Acct: [id number] Name: SABINA FLORES Rep #: [id number] : 1940 M 77 From: Anish Kaur DO PCP: Varun Wang MD Status: ADM IN Study: Chest 1 View (Portable) Date of Exam: 09/14/17 Exam# [id number] Ordering Dr: Manuel Damon STUDY: X-RAY CHEST REASON FOR EXAM: Male, 77 years old. Pills stuck TECHNIQUE: Frontal views COMPARISON: September 13, 2017 FINDINGS: The lungs are expanded. Interstitial prominence bilaterally. Granulomas. Normal size heart. Normal mediastinum. Calcifications are noted at the malia. Normal visualized pulmonary arteries. Calcified aortic arch and descending thoracic aorta. Normal visualized thoracic spine. Normal visualized ribs, clavicles, and shoulders. No radiopaque foreign bodies identified. There is no demonstrated abnormality of the visualized soft tissue structures of the upper abdomen. RAD/Chest 1 View (Portable) IMPRESSION: Interstitial prominence in the lungs. Granulomatous nodules of the right upper lobe and granulomatous hilar calcifications. No radiopaque foreign body. Electronically Signed: Anish Kaur DO at 19:54 EDT Tel [phone], Service support , CC: BLAKE Damon; Varun Wang MD Lining Scrubber: Signed BASIC METABOLIC Collected: 09/14/2017 Status: F Source: [place] PROFILE (BMP) 5:12 AM [facility] [place] TYPE CODE TESTS RESULT OUT OF RANGE REFERENCE UNITS LAB L501.0100 74-106 mg/dL Normal GLU 86 Result Comment: Please note revised GLUCOSE reference range effective 2017. LAB L501.1000 7-18 mg/dL High BUN 29 LAB L501.1100 0.70-1.30 mg/dL Normal CREAT,SERUM 1.08 Result Comment: The validity of the calculated GFR AND GFRAA in patients over 70 years has not been determined. Clinical correlation is essential. LAB L501.1110 >60 mL/min Normal EST GFR 70 Result Comment: Non- GFR Calc LAB L501.1115 >60 mL/min Normal EST GFR - AA 85 Result Comment: GFR Calc LAB L501.1255 ml/min Normal Estimated CRCL 41.40 LAB L501.1300 10-20 RATIO High BUN/CRE 26.9 LAB L501.2200 8.5-10 mg/dL Low .1 CA 8.1 LAB L501.5300 136-14 mmol/L Normal 5 NA 143 LAB L501.5600 3.5-5. mmol/L Normal 1 K 3.6 LAB L501.5900 98-107 mmol/L High CL 109 LAB L501.6100 21.0-3 mmol/L Normal 2.0 CO2 25.0 LAB L501.6200 5-15 Normal GAP 9 Performed By: #### L500.2500, L501.5200 #### [facility] [address] [place], [address] MAGNESIUM Collected: 09/14/2017 Status: F Source: [place] 5:12 AM [facility] TYPE CODE TESTS RESULT OUT OF RANGE REFERENCE UNITS LAB L501.5200 1.6-2.6 mg/dL Normal MG 2.1 Performed By: #### L500.2500, L501.5200 #### [facility] [address] [place], [address] CBC W/DIFF, AUTOMATED Collected: 09/14/2017 Status: C Source: [place] 5:12 AM [facility] TYPE CODE TESTS RESULT OUT OF RANGE REFERENCE UNITS LAB L100.1000 4.4-11.0 K/mm3 High WBC 19.1 LAB L100.1200 4.6-6.2 M/mm3 Normal RBC 6.07 LAB L100.1300 13.0-16.5 g/dl Low HGB 10.5 LAB L100.1400 40-54 % Low HCT 37.0 LAB L100.1500 80-94 fL Low MCV 61.0 LAB L100.1600 27.0-32.0 pg Low MCH 17.3 LAB L100.1700 32-36 g/gl Low MCHC 28.4 LAB L100.1810 11.6-14.6 % High RDW CV 20.4 LAB L100.1820 35.1-43.9 fl Normal RDW SD 42.5 LAB L100.1900 150-450 K/mm3 High alert PLT 1164 Result Comment: CRITICAL VALUE VERIFIED. CALLED TO HAMIDA LOOMIS 09/14/17 0641 Cassidy Demarco. RESULTS READ BACK BY SAME . LAB L100.2000 6.2-12.0 fl Normal MPV 9.0 LAB L100.2100 47-70 % High NEUT% 81.9 LAB L100.2200 19-41 % Low LY% 6.8 LAB L100.2300 0-10 % Normal MONO% 4.9 LAB L100.2400 0-5 % Normal EO% 1.8 LAB L100.2500 0-1 % High BASO% 3.3 LAB L100.2550 0.0-0.9 % High IM GRAN % 1.300 Result Comment: IG% - Immature Granulocytes (promyelocytes, myelocytes and metamyelocytes) > 1% indicates that a LEFT SHIFT is Present. LAB L100.2620 2.0-7.7 X10 3/uL Absolute Neut High 15.7 LAB L100.2720 0.83-4.51 X10 3/ul Absolute Lymph Normal 1.29 LAB L100.4500 SMEAR COMMENT Normal SCAN LAB L100.5500 ADEQ PLT EST Normal MKD INC LAB L100.5650 PLT MORPH Normal GIANT LAB L100.7300 ANISO Normal 1+ LAB L100.7500 POLYCHROMASIA Normal 1+ LAB L100.7600 HYPOCHROMASIA Normal 1+ LAB L100.7700 MICROCYTES Normal 1+ LAB L100.9900 PATH REV Normal Reviewed Result Comment: Neutrophilic leukocytosis with left shift. Microcytic anemia. Thrombocytosis. Clinical correlation necessary. Chemo Choudhury M.D. 09/14/17 AMENDED REPORT 09/14/17 1216 PATH REV previously reported as: August martin Performed By: #### L100.0100 #### [facility] [place], [address] IRON+IRON BINDING Collected: 09/14/2017 Status: F Source: [place] 5:12 AM [facility] Order Comment: Comments: ok to add on Comments: ok to add on TYPE CODE TESTS RESULT OUT OF RANGE REFERENCE UNITS LAB L503.6075 250-450 ug/dL TIBC Normal 269 LAB L503.6150 65-175 ug/dL Low IRON 14 LAB L503.6250 15.0-55.0 % Low IRON SATURATION 5.2 Performed By: #### L503.6030, L503.6550 #### [facility] [address] [facility] [place], [address] FERRITIN Collected: 09/14/2017 Status: F Source: [place] 5:12 AM [facility] Order Comment: Comments: ok to add on Comments: ok to add on TYPE CODE TESTS RESULT OUT OF REFERENCE UNITS RANGE LAB L503.6550 26-388 ng/mL Low FERRITIN 15 Performed By: #### L503.6030, L503.6550 #### [facility] [address] [facility] [place], [address] EMERGENCY DEPARTMENT Observed: 09/14/2017 Status: F Source: [place] SUMMARY 12:30 AM [facility] Medical Records Department [address] [place] [address] Emergency Department Summary 09/13/17 2252 MR#: [id number] Acct: [id number] Name: SABINA FLORES Rep #: [id number] : 1940 77 From: Major Bird MD PCP: Varun Wang MD Status: ADM IN - ER Visit Summary Date of Service: 09/13/17 Chief Complaint: Epigastric abdominal pain. History of Present Illness: The patient is a 77 M complaining of epigastric abdominal pain. Patient states that that was gradual in onset with associated nausea vomiting. Denies any fever. Does not recall chest pain. Since in the epigastric region. Does not radiate to his back. No melena. Today. No prior history. Physical Examination: Older male complaining of pain vital signs are stable afebrile. Pulse ox are percent on 2 L no hypoxia. Initial blood pressure is elevated at 170/131. I think it is secondary to pain and may be untreated hypertension. H EENT exam unremarkable. Neck nontender no lymphadenopathy. Lungs clear to auscultation bilaterally. Heart irregularly irregular rate in 90s no murmur. Abdomen is soft nondistended normal bowel sounds without peritoneal signs. He does have epigastric tenderness. I do not feel any rebound, guarding or rigidity. I do not feel any pulsatile mass. He is equal symmetrical femoral pulses. There are no hernias or signs of obstruction. He is moving all 4 extremities. Cellulitis and neurovascular intact. Without edema. Back exam nontender. Neurologically is awake and alert without focal motor deficits. Test Results: EKG shows A. fib rate of 92. Chest x-ray shows no acute abnormality. White count is elevated at 36,000 previously he had elevated white counts between 16 and 21,000. H AND H 12 and 34. Is severely elevated platelets. His electrolytes are unremarkable other than potassium 3.3. His creatinine is elevated 1.56. Liver enzymes are unremarkable except for alk phos of 130. Lipase is normal. Troponins normal. Patient did undergo a CT of the abdomen pelvis with IV contrast which showed splenomegaly. Nonspecific bowel gas pattern and a normal appendix. There is no perforation. No abdominal aneurysm or bleeding. Emergency Department Course and Treatment: Patient is doing much better is been treated with morphine and Zofran on multiple repeat exam he looks better. I discussed all test results with both he and his . Treatment Plan: Patient will be admitted by the hospitalist for further evaluation and workup of his leukocytosis, abdominal pain and a atrial fibrillation. Disposition: Admission Impression: Acute abdominal pain of uncertain etiology. Leukocytosis of uncertain etiology and elevated platelet count. Mild renal insufficiency This note was generated with [employer] dictation software. It may contain incorrect words, spelling, and punctuation that were not noted in review of the chart prior to signing ED Disposition - Plan for ED Patient: Chief Complaint: Abd Pain What to do if you have Problems For any increased pain, shortness of breath, bleeding, nausea or vomiting, chest pain, or any unexpected problems, contact your Primary Care Provider. Call [facility] ([phone]) or report to the closest Emergency Room. Call 911 if necessary. 09/14/17 0030 <Electronically signed by Major Bird MD> Date Major Bird MD [facility] Signature (If Indicated): Date CC: Varun Wang MD ABD DECUB AND/OR Observed: 09/14/2017 Status: F Source: [place] ERECT(PORTABL 12:00 AM [facility] Imaging Services [address] [place] [address] Abd Decub and/or Erect(Portabl MR#: [id number] Acct: [id number] Name: SABINA FLORES Raúl Rep #: [id number] : 1940 M 77 From: Dawit Mason MD PCP: Varun Wang MD Status: ADM IN Study: Abd Decub and/or Erect(Portabl Date of Exam: 09/14/17 Exam# [id number] Ordering Dr: Reji Marin DO STUDY: X-RAY - ABDOMEN/PELVIS REASON FOR EXAM: Male, 77 years old. Pain TECHNIQUE: AP supine and upright views of the abdomen and pelvis. Decubitus views also obtained. COMPARISON: CT 09/13/2017 FINDINGS: Normal visualized lung bases. Upper abdominal clips. There is an unremarkable bowel gas pattern. There is no demonstrated free abdominal air. Residual contrast in the bladder. The visualized liver, spleen and kidneys are grossly normal in size and morphology. Normal soft tissue structures. Normal visualized osseous structures. RAD/Abd Decub and/or Erect(Portabl IMPRESSION: Normal bowel gas pattern. No free air is detected. Electronically Signed: Dawit Mason MD at 5:54 EDT Tel , Service support , CC: Reji Marin DO; Varun Wang MD Lining Scrubber: Signed LACTIC ACID Collected: 09/13/2017 Status: F Source: [place] 11:31 PM [facility] Order Comment: Yes/No query for Sepsis Lactate Rule Y TYPE CODE TESTS RESULT OUT OF RANGE REFERENCE UNITS LAB L503.6005 0.4-2.0 mmol/L Normal LACTIC ACID 0.7 Performed By: #### L503.6005 #### [facility] [address] [facility] [place], [address] HISTORY AND PHYSICAL Observed: 09/13/2017 Status: F Source: [place] EXAM 10:35 PM [facility] Medical Records Department [address] [place] [address] History and Physical 09/13/176 MR#: [id number] Acct: [id number] Name: SABINA FLORES Raúl Rep #: [id number] : 1940 77 From: Reji Marin DO PCP: Varun Wang MD Status: REG ER Y Location: ED Problem List (1) Enteritis Status: Acute (2) Ileus Status: Acute (3) COPD (chronic obstructive pulmonary disease) Status: Chronic Comment: FEV1 51% (4) History of peptic ulcer disease Status: Chronic (5) 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 The patient is a 77 year old M who was in his normal state of health up until today when he had intense epigastric abdominal pain is spread across the upper portions of his abdomen. Patient had some nausea but no vomiting. Patient states that this similar to when he had an issue with peptic ulcers 50 years ago. At that time, patient had hematemesis and bleeding. Patient did require an aggressive abdominal surgery. In the emergency room, he had a CAT scan that showed nonspecific bowel gas pattern with scattered fluid-filled loops of small bowel with scattered air-fluid levels. No dilation. Could be related with enteritis/early ileus. Also noted mild to moderate splenomegaly. In the emergency room, patient received aspirin, morphine and Zofran. He is still having of the abdominal pain. 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 vocal cord lesion. Psychiatric History: No pertinent psych hx Smoking Status: Former smoker Alcohol: None Drugs: None - *Family History Maternal History Items: No pertinent history, - - No cancer Paternal History Items: No pertinent history Review of Systems Constitutional: Reports: Anorexia. Denies: Chills, Fever Eyes: Denies: Blurred vision, Double vision HEENT: Denies: Head Aches, Sinus Congestion, Sinus Drainage Cardiovascular: Denies: Chest Pain, Palpitations Respiratory: Denies: Cough, Shortness of breath at rest, Sputum production Gastrointestinal: Reports: Abdominal Pain, Nausea. Denies: Diarrhea, Vomiting Genitourinary: Denies: Dysuria Musculoskeletal: Denies: Joint Pain, Joint Tenderness Skin: Denies: Rash, Wounds Neurological: Denies: Numbness, Tingling, Focal weakness Psychiatric: Denies: Anxiety, Depression Hematologic/ Lymphatic: Denies: Easy Bruising, Easy Bleeding, Hx of blood clot VTE Information - Inpt Only VTE Present on Admission: No VTE Pharm Prophylaxis ordered?: Yes Patient Problems: Active and Suspected Problems (Last Reviewed 05/03/17 @ 09:16 by Carmen Graham) Enteritis (Acute) Ileus (Acute) Leukocytosis (Acute) JULIANA (acute kidney injury) (Acute) - Physical Exam General: Alert, Cooperative, No apparent distress, - - Cachectic. HEENT: Atraumatic, Normocephalic Oral: Moist Mucosa, No Gingival or Mucosal Lesions/ Ulcerations Neck: No Nodes, Thyroid Normal Size and Texture Lungs: Clear to auscultation, Normal air movement, No rhonchi, No wheeze Cardiovascular: Regular rate, Regular Rhythm, Normal S1, Normal S2 Abdomen: Bowel Sounds Present, Soft, Non-Distended, Tender - Epi gastric Extremities: No edema, No Calf Tenderness Skin: No rashes, No breakdown Musculoskeletal: No Tenderness to Palpation of Joints or Extremities, Cachexia, Muscle Wasting Neurological: Deep Tendon Reflexes 2+/4 and Symmetrical, Sensory exam intact to light touch and pain, - - No clonus Psych/Mental Status: Normal Affect, Appropriate Vital Signs Temp Pulse Resp BP Pulse Ox 36.4 C L 94 18 146/82 H 96 09/13/17 19:05 09/13/17 22:18 09/13/17 22:18 09/13/17 22:18 09/13/17 22:18 Oxygen Flow Rate (L/min) 2 Oxygen Delivery Method Nasal Cannula Weight: 52.163 kg Body Mass Index (BMI) 16.0 Laboratory Tests Past 24 Hrs WBC 36.3 H* RBC 7.37 H WBC RBC Hgb Hct Clinical Impression(s) from Imaging Studies Abdomen/Pelvis CT 09/13/17 19:22 IMPRESSION: 1. Nonspecific bowel gas pattern with scattered fluid filled loops of small bowel with scattered air-fluid levels however, no dilation. Gaseous distended loops of colon with fecal retention. Normal appendix. Findings could be related to enteritis/early ileus. 2. Mild to moderate splenomegaly. Electronically Signed: Papi Gleason DO at 21:09 EDT Tel , Service support , Chest X-Ray 09/13/17 20:22 IMPRESSION: COPD/emphysema with bronchiectasis. Findings concerning for developing infiltrate or mass in the right midlung field. Consider short-term follow-up or further evaluation with CT. at 2157 Reported and signed by: Cinthya Beck MD Electronically Signed: Cinthya Beck MD at 21:53 EDT Tel , Service support , Assessment/Plan Active and Suspected Problems (Last Reviewed 05/03/17 @ 09:16 by Carmen Graham) Enteritis (Acute) Ileus (Acute) Leukocytosis (Acute) JULIANA (acute kidney injury) (Acute) 1. Acute enteritis * This is suspected given the findings on the CAT scan. * A possible this could be just related with an ileus, versus small bowel obstruction, versus mesenteric ischemia. * Will put the patient on empiric antibiotics with ciprofloxacin and Flagyl. * Follow-up abdominal x-ray in the morning * Patient be n.p.o. with exception of sips and chips for now. * No acute surgical needs at this time * I will check a lactic acid to see if there is any evidence of ischemic colitis causing the symptoms. * Patient states that his symptoms are similar to 50 years ago when he had an ulcer. Given the findings on the CAT scan I do not suspect that his has recurrence of his ulcers causing these findings. 2. Leukocytosis * May be reactive * However, it was elevated in 2017 at 16,000 and is now 36,000. Additionally patient has thrombocytosis and also noted splenomegaly. * Continue to follow-up his counts * Lesser acute issues then patient should likely follow up with hematology as outpatient * Other considerations could be an acute leukemia or chronic leukemia for that matter. 3. Acute kidney injury * May be prerenal. Creatinine today is 1.56. Creatinine from 2017 was 1.02 * IV fluids and reevaluate 4. COPD * Not an exacerbation * Continue with home medications 5. DVT prophylaxis with Lovenox 6. Advanced care planning: Patient wishes to be full code and is okay with having endotracheal intubation and PEG tube if necessary. Code Visit Inpatient E AND M: [id number] Init Hosp L3 09/13/17 3295 <Electronically signed by Reji Marin DO> Date Reji Marin DO Cosigner Signature: Date (if applicable) CC: Reji Marin DO; Varun Wang MD Signed ABDOMEN/PELVIS W IV CONT Observed: 09/13/2017 Status: F Source: [place] 7:26 PM [facility] [place] [facility] Imaging Services [address] [place] [address] Abdomen/Pelvis W IV Cont ONLY MR#: [id number] Acct: [id number] Name: SABINA FLORES Rep #: [id number] : 1940 M 77 From: Papi Gleason DO PCP: Varun Wang MD Status: REG ER Study: Abdomen/Pelvis W IV Cont ONLY Date of Exam: 09/13/17 Exam# [id number] Ordering Dr: Major Bird MD STUDY: CT ABDOMEN AND PELVIS WITH CONTRAST REASON FOR EXAM: Male, 77 years old. Epigastric pain RADIATION DOSAGE (If Supplied By Facility): CTDIvol = ( 21.52 ) mGy, DLP = ( 386.88 ) mGycm TECHNIQUE: Transaxial images were obtained from the dome of the diaphragm to the symphysis pubis without oral contrast. 75ML ml of Isovue 300 contrast was administered. Sagittal and coronal images were reconstructed. Individualized dose optimization techniques were used for this CT. COMPARISON: None FINDINGS: Emphysematous changes in the lung bases without acute findings. Small amount of scarring in the left lung base. The visualized portions of the heart are within normal limits. There is decreased attenuation of the liver consistent with steatosis. Normal gallbladder and extrahepatic biliary system. There is moderate splenomegaly. Somewhat heterogeneous enhancement pattern of the spleen however, likely due to arterial phase exam. Normal pancreas. Normal bilateral adrenal glands. Normal right kidney. Normal left kidney. There is a small hiatal hernia. Scattered fluid-filled loops of small bowel with scattered air-fluid levels. No abnormal dilation. There are multiple colonic diverticula consistent with diverticulosis. The appendix is visualized and appears normal. There is diffuse atherosclerotic calcification of the abdominal aorta, without a demonstrated aneurysm. Normal inferior vena cava. Normal retroperitoneum. Normal urinary bladder. There is enlargement of the prostate gland. Normal abdominal wall. There are diffuse degenerative changes of the visualized lumbar spine. CT/Abdomen/Pelvis W IV Cont ONLY IMPRESSION: 1. Nonspecific bowel gas pattern with scattered fluid filled loops of small bowel with scattered air-fluid levels however, no dilation. Gaseous distended loops of colon with fecal retention. Normal appendix. Findings could be related to enteritis/early ileus. 2. Mild to moderate splenomegaly. Electronically Signed: Papi Gleason DO at 21:09 EDT Tel , Service support , CC: Major Bird MD; Varun Wang MD Lining Scrubber: Signed PROTHROMBIN TIME W/INR Collected: 09/13/2017 Status: F Source: [place] 7:15 PM [facility] [place] TYPE CODE TESTS RESULT OUT OF RANGE REFERENCE UNITS LAB L300.4150 11.7-14.9 SECONDS High PROTIME 16.6 LAB L300.4200 Normal INR 1.3 Performed By: #### L300.3900 #### [facility] [address] [place], [address] LIVER PROFILE Collected: 09/13/2017 Status: F Source: [place] 7:15 PM [facility] [place] TYPE CODE TESTS RESULT OUT OF RANGE REFERENCE UNITS LAB L501.1500 6.4-8.2 g/dL Normal T PROT 7.2 LAB L501.1800 3.2-5.0 g/dL Normal ALB 3.4 LAB L501.1950 2.2-4.2 g/dL Normal GLOB 3.8 LAB L501.4100 15-37 U/L Normal AST 18 LAB L501.4305 45-117 U/L High ALK P 130 LAB L501.4405 16-61 U/L Normal ALT 20 LAB L501.4600 0.20-1.00 mg/dL Normal T BILI 0.60 LAB L501.4700 0.00-0.30 mg/dL Normal D BILI 0.16 Performed By: #### L500.3400 #### [facility] [address] [facility] [address] [place], [place], [address] BASIC METABOLIC Collected: 09/13/2017 Status: F Source: [place] PRO[place] (BMP) 7:15 PM [facility] [place] TYPE CODE TESTS RESULT OUT OF RANGE REFERENCE UNITS LAB L501.0100 74-106 mg/dL High GLU 200 Result Comment: Glucose result greater than or equal to 200 mg/dL suggests DIABETES MELLITUS per A.D.A. criteria. Please note revised GLUCOSE reference range effective 2017. LAB L501.1000 7-18 mg/dL High BUN 36 LAB L501.1100 0.70-1.30 mg/dL High CREAT,SERUM 1.56 Result Comment: The validity of the calculated GFR AND GFRAA in patients over 70 years has not been determined. Clinical correlation is essential. LAB L501.1110 >60 mL/min Low EST GFR 46 Result Comment: Non- GFR Calc LAB L501.1115 >60 mL/min Low EST GFR - AA 56 Result Comment: GFR Calc LAB L501.1255 ml/min Normal Estimated CRCL 29.26 LAB L501.1300 10-20 RATIO High BUN/CRE 23.1 LAB L501.2200 8.5-10 mg/dL Normal .1 CA 9.7 LAB L501.5300 136-14 mmol/L Normal 5 NA 139 LAB L501.5600 3.5-5. mmol/L Low 1 K 3.3 LAB L501.5900 98-107 mmol/L Normal CL 102 LAB L501.6100 21.0-3 mmol/L Normal 2.0 CO2 26.0 LAB L501.6200 5-15 Normal GAP 11 Performed By: #### L500.2500, L501.2450, L501.4010 #### [facility] [address] [place], [address] LIPASE Collected: 09/13/2017 Status: F Source: [place] 7:15 PM [facility] [place] TYPE CODE TESTS RESULT OUT OF RANGE REFERENCE UNITS LAB L501.2450 73-393 U/L Normal LIPASE 360 Performed By: #### L500.2500, L501.2450, L501.4010 #### [facility] [address] [place], [address] TROPONIN-I Collected: 09/13/2017 Status: F Source: [place] 7:15 PM [facility] [place] TYPE CODE TESTS RESULT OUT OF RANGE REFERENCE UNITS LAB L501.4010 <0.045 ng/mL Normal < 0.015 TROPONIN-I Result Comment: TROPONIN-I EXPECTED VALUES <0.045 Negative 0.045 - 0.590 Consistent with Cardiac Damage > OR = 0.600 Critical Value Not every elevated troponin is indicative of IL. These values should be used with clinical judgement in examining the patient's clinical picture for diagnosis. To establish a diagnosis of IL versus myocardial injury, there must be a demonstrated rise and/or fall in the troponin values, in addition to ischemic symptoms, EKG changes, new regional wall motion abnormality, and/or angiographical evidence. PLEASE NOTE: REFERENCE RANGES EDITED 17 Performed By: #### L500.2500, L501.2450, L501.4010 #### [facility] [address] [facility] [place], [address] CBC W/DIFF, AUTOMATED Collected: 09/13/2017 Status: C Source: [place] 7:15 PM [facility] [place] TYPE CODE TESTS RESULT OUT OF RANGE REFERENCE UNITS LAB L100.1000 4.4-11.0 K/mm3 High alert WBC 36.3 Result Comment: RESULTS CALLED TO MADELYN 09/13/172012 Kenney Ramos. REPORT READ BACK BY SAME . LAB L100.1200 4.6-6.2 M/mm3 High RBC 7.37 LAB L100.1300 13.0-16.5 g/dl Low HGB 12.9 LAB L100.1400 40-54 % Normal HCT 44.1 LAB L100.1500 80-94 fL Low MCV 59.8 LAB L100.1600 27.0-32.0 pg Low MCH 17.5 LAB L100.1700 32-36 g/gl Low MCHC 29.3 LAB L100.1810 11.6-14.6 % High RDW 21.0 CV LAB L100.1820 35.1-43.9 fl Normal RDW 41.4 SD LAB L100.1900 150-450 K/mm3 High alert PLT 1938 Result Comment: RESULTS CALLED TO MADELYN 09/13/172012 Kenney Ramos. REPORT READ BACK BY SAME . LAB L100.2000 6.2-12.0 fl MPV Normal 9.1 LAB L100.3100 MANUAL DIFF CELLS Normal COUNTED 100 LAB L100.3200 47-70 % SEGS 86 High LAB L100.3300 0-5 % BAND 1 Normal LAB L100.3800 19-41 % Low LYMPH 10 LAB L100.3900 0-10 % MONOCYTE 2 Normal LAB L100.4000 0-5 % EOS 1 Normal LAB L100.2620 2.0-7.7 X10 3/uL Absolute High Neut 31.6 LAB L100.2720 0.83-4.51 X10 3/ul Absolute Normal Lymph 3.63 LAB L100.5500 ADEQ PLT EST Normal MKD INC LAB L100.7300 ANISO 1+ Normal LAB L100.7700 1+ Normal MICROCYTES LAB L100.9900 PATH REV Normal Reviewed Result Comment: Neutrophilic leukocytosis with left shift. Microcytosis. Thrombocytosis. Clinical correlation necessary. Chemo Choudhury M.D. 09/14/17 AMENDED REPORT 09/14/17 1215 PATH REV previously reported as: Xiomara salazar Performed By: #### L100.0100 #### [facility] [address] [facility] [place], [address] CHEST 1 VIEW Observed: 09/13/2017 Status: F Source: [place] (PORTABLE) 7:12 PM [facility] [place] [facility] Imaging Services [address] [place] [address] Chest 1 View (Portable) MR#: [id number] Acct: [id number] Name: SABINA FLORES Rep #: [id number] : 1940 M 77 From: Cinthya Beck MD PCP: Varun Wang MD Status: REG ER Study: Chest 1 View (Portable) Date of Exam: 09/13/17 Exam# [id number] Ordering Dr: Major Bird MD XR Chest 1 View INDICATION: CHEST PAIN, ABD PAIN ALSO COMPARISON: CT November 15, 2016 TECHNIQUE: Portable chest FINDINGS: The heart size and pulmonary vascularity are within normal limits. The lungs are hyperinflated with coarsened interstitial markings. Reactive cysts are seen in the bilateral perihilar regions and lower lobes. There is evidence of a focal airspace opacity in the right mid lung field. No evidence of pleural effusion. RAD/Chest 1 View (Portable) IMPRESSION: COPD/emphysema with bronchiectasis. Findings concerning for developing infiltrate or mass in the right midlung field. Consider short-term follow-up or further evaluation with CT. at 2153 Reported and signed by: Cinthya Beck MD Electronically Signed: Cinthya Beck MD at 21:53 EDT Tel , Service support , CC: Major Bird MD; Varun Wang MD Lining Scrubber: Signed CNOV Observed: 08/20/2017 Status: COMPLETED Source: [place] 9:15 AM [facility] REPOSITORY Office Visit (OTMNCA) SABINA FLORES ([id number]) 1940 M Date Time Provider Department 08/20/17 9:15 AM MARCO A GIRALDO During your visit today, we recorded the following information about you: Daibrenden Briones MA 08/20/2017 8:36 AM Signed Tobacco Use: 1.5 packs/day, for 52 years. Quit 09/01/2013. Types: Cigarettes Was smoking cessation packet given? N/A - Patient is a non- smoker or quit ANDgt;1 year ago. Was a referral initiated?N/A Patient is a non-smoker Referring Provider: MARCO A GIRALDO [[id number]] Allergies As of Date: 08/20/2017 (No Known Allergies) Date Reviewed: 08/20/2017 Reviewed by: Dai Briones MA - Fully Assessed Reason for Visit: Established Patient [175] Primary Visit Diagnosis:History of laryngeal cancer [Z85.21] Other Visit Diagnosis:History of oral cancer [Z85.819] Prescriptions as of 08/20/2017 Sig: TIOTROPIUM 2.5 MCG-OLODATEROL* Inhale 2 Puffs as instructed * ALBUTEROL SULFATE HFA 90 MCG/* Inhale 2 Puffs as instructed * Problem List As Of Date 08/20/2017 Noted Resolved Iron deficiency anemias [280] INVALID FOR*10/30/2011 Peptic ulcer, unspecified site, unspecified as *INVALID FOR*10/30/2011 Stricture and stenosis of esophagus [K22.2] INVALID FOR*10/30/2011 Diverticulosis of colon (without mention of hem*INVALID FOR*10/30/2011 Nonspecific abnormal results of liver function *INVALID FOR*03/31/2011 More... Personal history of alcoholism [F10.21] INVALID FOR*02/12/2014 Tobacco use disorder [F17.200] INVALID FOR*02/21/2016 Interstitial lung disease [J84.9] INVALID FOR* More... Lung nodule [R91.1] INVALID FOR*04/14/2013 More... Asthma [J45.909] INVALID FOR* COPD (chronic obstructive pulmonary disease) [J*INVALID FOR* Adenomatous colon polyp [D12.6] INVALID FOR* Polycythemia [D75.1] INVALID FOR*08/21/2016 Carcinoma in situ of larynx [D02.0] INVALID FOR* Back pain, chronic [M54.9, G89.29] INVALID FOR* History of laryngeal cancer [Z85.21] INVALID FOR* Colon cancer screening [Z12.11] INVALID FOR*03/30/2016 Oral lesion [K13.70] INVALID FOR*11/20/2016 Hypoxemia [R09.02] INVALID FOR* Protein-calorie malnutrition (HCC) [E46] INVALID FOR* Thrombocytosis (HCC) [D47.3] INVALID FOR* Elevated protime [R79.1] INVALID FOR* Elevated bilirubin [R17] INVALID FOR* Visit Notes: >> Dai Briones MA Mon Aug 20, 2017 8:36 AM Status: Signed Tobacco Use: 1.5 packs/day, for 52 years. Quit 09/01/2013. Types: Cigarettes Was smoking cessation packet given? N/A - Patient is a non- smoker or quit >1 year ago. Was a referral initiated?N/A Patient is a non-smoker Encounter Status:Closed by MARCO A GIRALDO MD on 08/21/17 PROGRESS Observed: 08/20/2017 Status: COMPLETED Source: [place] 12:00 AM [facility] RE[facility] HNO ID: [id number] Author: Marco A Giraldo Service: (none) Author Type: Physician Type: Progress Notes Filed: 08/22/2017 10:00 AM Note Text: [facility] [place] Marco A Giraldo M.D. NAME: SABINA FLORES CLINIC NO: [id number] DATE OF SERVICE: 08/20/2017 Chief Complaint Oncologic surveillance. History of Present Illness Mr. Flores returns in followup. He is a patient with a history of a left floor of mouth resection. The patient had a high-grade keratinizing squamous dysplasia present. Carcinoma in situ had been present. Margins were negative for the resection. He has overall done quite well. Examination Age appropriate, no acute distress. Voice is excellent, speech is excellent. Cervical examination reveals no new masses to inspection or palpation. Oral cavity and oropharyngeal examination reveals no lesions. Indirect laryngoscopy revealed no lesions. No subglottic lesions appreciated. Medical Decision Making Diagnosis 1. 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 2. 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 Treatment Plan 1. Continue oncologic surveillance. 2. Patient will be seen in three months for further evaluation. MARCO A GIRALDO M.D. JS/079 Audio #: [id number] Date Dictated: 08/21/2017 14:22:41 Date Typed: 08/21/2017 16:07:37 Date Revised: ALLERGIES ALLERGIES DATE TYPE / NAME / CODE REACTION SEVERITY SOURCE CODE 05/13/2018 Drug doxycycline/F0060 pancreatitis Unknown [place] Allergy/41 35835(RXNORM) [facility] 7052044([facility]) Repository 03/04/2018 Drug No Known Unknown [place] Allergy/41 Allergies/Y539500 Community 1888113(SN 388(RXNORM) Hospital OMED CT) Repository 01/07/2018 DRUG DOXYCYCLINE OTHER: SEE C [facility] INGREDI/41 Other [place] 8843391(SN Repository OMED CT) NG/1517792 DOXYCYCLINE [facility] 06(SNOMED Health [facility] CT) Repository Drug NO KNOWN [facility] Class/4195 ALLERGIES [place] [address](SNOM Repository ED CT) ENCOUNTERS ENCOUNTERS ADMIT/DISCHARGE ACCOUNT NUMBER ADMITTING ENCOUNTER LOCATION SOURCE CLASS 05/13/2018/05/14/19 [id number] Ambulatory [address] [place] Repository 05/13/2018/05/13/19 [id number] Ambulatory BMSBuilding: [facility] [facility] Repository 05/09/2018/05/14/19 [id number] Ambulatory [address] Repository 05/09/2018/05/10/19 [id number] Ambulatory [address] Repository 05/03/2018/05/05/19 [id number] White, Tomasa Inpatient [place] 19 [facility] ding:PCURoom Repository : [id number]: 1 05/03/2018 [id number] White, Tomasa Ambulatory BMSBuilding: [place] BMS.Critical access hospital Repository 05/03/2018 [id number] White, Tomasa Ambulatory BMSBuilding: [place] BMS.Critical access hospital Repository 05/03/2018 [id number] White, Tomasa Ambulatory BMSBuilding: [place] BMS.Critical access hospital Repository 04/22/2018/04/24/20 [id number] Ambulatory [address] Repository 04/22/2018/04/22/20 [id number] Ambulatory [address] Repository 04/15/2018/04/16/20 [id number] Ambulatory [address] Repository 04/15/2018/04/16/20 [id number] Ambulatory [address] Repository 04/12/2018 [id number] Ambulatory [facility] ding:MEDOUTP Repository 04/11/2018/04/12/20 [id number] Ambulatory [address] Repository 04/05/2018/04/15/20 [id number] Ambulatory [place] [facility] [place] Repository 04/03/2018/04/08/20 [id number] Ambulatory [address] [place] Repository 03/28/2018/03/28/20 [id number] Ambulatory [address] [place] Repository 03/28/2018/03/28/20 [id number] Ambulatory [address] [place] Repository 03/27/2018/03/27/20 [id number] HENRRY, Ambulatory [address] Other [place] Repository 03/25/2018/03/28/20 [id number] Ambulatory [address] [place] Repository 03/20/2018/03/25/20 [id number] Ambulatory [address] [place] Repository 03/14/2018/03/15/20 [id number] Ambulatory [address] [place] Repository 03/14/2018/03/15/20 [id number] Ambulatory [address] [place] Repository 03/04/2018/03/09/20 [id number] [facility] Inpatient [place] [address] , [facility] Other [place]AN[place] Repository 03/04/2018/03/09/20 [id number] [facility] Inpatient [place] [address] , [facility] MEDICAL Repository CENTERBuildi nRoom: 7115Bed: 01 03/04/2018/03/04/20 [id number] Emergency [place] [address] ding:ED Repository 02/28/2018/03/01/20 [id number] Ambulatory [address] [place] Repository 02/26/2018/02/27/20 [id number] Ambulatory [address] [place] Repository 02/26/2018/02/27/20 [id number] NEVA SINGER Ambulatory [address] [place] Repository 02/20/2018/02/21/20 [id number] Ambulatory BMSBuilding: [place] [facility] Repository 02/14/2018/02/16/20 [id number] Ambulatory [address] [place] Repository 02/14/2018/02/16/20 [id number] Ambulatory [address] [place] Repository 02/04/2018 [id number] [facility] Rep[facility] 01/25/2018/01/29/20 [id number] Ambulatory [address] [place] Repository 01/24/2018/01/29/20 [id number] Ambulatory [address] Repository 01/23/2018/01/24/20 [id number] Ambulatory BMSBuilding: [address] Repository 01/15/2018/01/16/20 [id number] Ambulatory [address] [place] Repository 01/11/2018/01/15/20 [id number] Ambulatory [address] Repository 01/10/2018/01/12/20 [id number] Ambulatory [address] Repository 01/07/2018/01/08/20 [id number] Ambulatory [address] Repository 01/07/2018/01/22/20 [id number] Ambulatory [address] Repository 01/02/2018/01/03/20 [id number] Emergency [address] ding:ED Repository 01/01/2018/01/02/20 [id number] Ambulatory [address] Repository 01/01/2018/01/02/20 [id number] NEVA SINGER Ambulatory [address] Repository 12/28/2017/01/02/20 [id number] Ambulatory [address] Repository 12/28/2017/01/02/20 [id number] Ambulatory [address] Repository 12/26/2017 [id number] Ambulatory [facility] ding:PSN Repository 12/26/2017 [id number] Ambulatory BMSBuilding: [facility] Repository 12/25/2017 [id number] Ambulatory [facility] ding:PSN Repository 12/25/2017 [id number] Ambulatory BMSBuilding: [facility] Repository 12/20/2017/12/22/19 [id number] Ambulatory [address] Repository 12/13/2017/12/15/19 [id number] Ambulatory [address] Repository 12/13/2017/12/15/19 [id number] Ambulatory [address] Repository 12/13/2017/08/16 [id number] Ambulatory [place] [place] Repository 12/10/2017/12/11/19 [id number] Ambulatory BMSBuilding: [place] [facility] Repository 12/07/2017/12/11/19 [id number] ZACH, Ambulatory [place] 18 [facility] Repository 12/07/2017/12/11/19 [id number] ZACH, Ambulatory [address] Repository 11/29/2017/12/06/19 [id number] ZACH, Inpatient [address] Repository 11/29/2017/11/30/19 [id number] Emergency [place] ding:ED Repository 11/27/2017/11/28/19 [id number] Ambulatory [address] Repository 11/27/2017/11/28/19 [id number] NEVA SINGER Ambulatory [address] Repository 11/26/2017/11/30/19 [id number] Ambulatory [address] [place] Repository 10/23/2017/10/26/19 [id number] Ambulatory [address] [place] Repository 10/18/2017/10/19/19 [id number] Ambulatory [address] [place] Repository 10/11/2017/10/13/19 [id number] Ambulatory [address] [place] Repository 10/11/2017/10/13/19 [id number] Ambulatory [address] [place] Repository 10/09/2017/01/18/20 [id number] Ambulatory [address] [place] Repository 10/03/2017/10/05/19 [id number] Ambulatory [address] [place] Repository 09/24/2017/09/28/19 [id number] [facility] ding:RW7Cwzh Repository : AN688Ybo: 1 09/24/2017/09/28/19 [id number] Ambulatory BMSBuilding: [place] [facility] Repository 09/24/2017 [id number] Gisela Ruffin Ambulatory BMSBuilding: [place] Tammy BMS.Critical access hospital Repository 09/24/2017 [id number] Koram, Gisela Ambulatory BMSBuilding: [place] [facility] BMS.Critical access hospital Repository 09/24/2017 [id number] RobertamLee Anna Ambulatory BMSBuilding: [place] [facility] BMS.Critical access hospital Repository 09/23/2017 [id number] Koram Gisela Ambulatory BMSBuilding: [place] [facility]my BMS.Critical access hospital Repository 09/21/2017/09/22/19 [id number] Ambulatory [address] Repository 09/18/2017/09/23/19 [id number] [facility] [address] Repository 09/13/2017/09/19/19 [id number] Reji Marin Inpatient [place] [address] Encounter [facility] ding:LL7Bmtc Repository : KN103Kyj: 1 09/13/2017 [id number] Reji Marin Ambulatory BMSBuilding: [place] BMS.Critical access hospital Repository 09/13/2017 [id number] Reji Marin Ambulatory BMSBuilding: [place] BMS.CF.Critical access hospital Repository 09/13/2017 [id number] Reji Marin Ambulatory BMSBuilding: [place] BMS.CF.Critical access hospital Repository 09/13/2017 [id number] Reji Marin Ambulatory BMSBuilding: [place] BMS.Critical access hospital Repository 09/13/2017 [id number] Reji [facility] [place] [facility] Repository 09/13/2017 [id number] Reji [facility] [place] [facility] Repository 09/13/2017 [id number] Reji [facility] [place] [facility]MS.Critical access hospital Repository 09/13/2017 [id number] Reji [facility] [place] [facility].CF.Critical access hospital Repository 09/13/2017 [id number] Reji [facility] [place] [facility] hospital Repository 09/13/2017 [id number] Reji [facility] [place] [facility].CF.Critical access hospital Repository 09/13/2017 [id number] Ambulatory BMSBuilding: [place] BMS.WIP [facility] Repository 08/20/2017/08/21/19 [id number] Ambulatory [address] Repository PAYERS PAYERS ENCOUNTER GUARANTOR PAYER SUBSCRIBER SOURCE 05/13/2018 SABINA Olsen Primary SABINA Bacon [id number] Insurance:[facility] [id number] [id number] Ville [id number]: (330) Number: Repository [phone] () [id number] Date:0509-18-15MT [address]PQWQYLY, [place] [address]TY: 05/13/2018 Secondary NOT GIVENUNK [place] Insurance:SELF PAY [facility] Number: Effective Repository Date:2018-02-22 05/03/2018 SABINA Olsen Primary SABINA Olsen [place] [id number] Insurance:[facility] [id number] [id number] Ville [id number]: (330) Number: Repository [phone] () [id number] Date:7435-33-61BP [address]WEVIQVS, [place] [address]VT: 05/03/2018 Secondary SABINA Bacon Insurance:MEDICARE A BRAUNDOB: [facility] [id number] [facility] [id number] Repository Date:2018-05-03 05/03/2018 Tertiary NOT GIVENUNK [place] Insurance:SELF PAY [facility] Number: Effective Repository Date:2018-05-03 05/03/2018 SABINA Olsen Primary SABINA Bacon [id number] Insurance:[facility] [id number] [id number] Ville [id number]: (330) Number: Repository [phone] () [id number] Date:5567-49-32XW [address]RIKVURZ, [place] [address]PD: 05/03/2018 Secondary NOT GIVENUNK [place] Insurance:SELF PAY [facility] Number: Effective Repository Date:2018-05-03 05/03/2018 SABINA Olsen Primary SABINA Olsen [place] [id number] Insurance:[facility] [id number] [id number] Ville [address]Tel: (330) Number: Repository [phone] () [id number] Date:4425-68-66PR [facility] 226521APGCFRY, [place] [address]NX: 05/03/2018 Secondary NOT GIVENUNK [place] Insurance:SELF PAY [facility] Number: Effective Repository Date:2018-05-03 05/03/2018 SABINA Olsen Primary SABINA Olsen [place] [id number] Insurance:[facility] [id number] [id number] Ville [address]Tel: (330) Number: Repository [phone] () [id number] Date:6206-65-49XF [address]QHHXXFQ, [place] [address]ZC: 05/03/2018 Secondary NOT GIVENUNK [place] Insurance:SELF PAY [facility] Number: Effective Repository Date:2018-05-03 04/12/2018 SABINA Olsen Primary SABINA Bacon [id number] Insurance:[facility] [id number] [id number] Ville [id number]: (330) Number: Repository [phone] () [id number] Date:2405-25-09FQ [facility] 712852MEFVFED, [place] [address]TN: 04/12/2018 Secondary NOT GIVENUNK [place] Insurance:SELF PAY [facility] Number: Effective Repository Date:2018-04-11 03/04/2018 SABINA C [facility] E APolicy Number: [id number] Repository [address] [place], [id number] [place] [address]Qtk: Date: () 03/04/2018 Secondary SABINA Ng General Insurance:[facility] BRAUNB: Health System CHOICEPolicy Number: [id number] Repository [id number] Date: 03/04/2018 SABINA Olsen Primary SABINA Bacon [id number] Insurance:[facility]: [place] CARE [id number] Hospital [address]Eji: (330) Number: Repository [phone] () [id number] Date:7903-01-69JVMAX VILLE 390[address]74[address]WP: 03/04/2018 Secondary NOT GIVENUNK [place] Insurance:SELF PAY [facility] Number: Effective Repository Date:2018-03-04 02/20/2018 SABINA Olsen Primary SABINA Olsen [place] [id number] Insurance:[facility]: [facility] [id number] [id number] Ville [id number]: (330) Number: Repository [phone] () [id number] Date:7277-56-57IAMAX [place]ILLE [address]WP: 02/20/2018 Secondary NOT GIVENUNK [place] Insurance:SELF PAY [facility] Number: Effective Repository Date:2018-02-19 02/04/2018 SABINA Olsen Primary SABINA Bacon [id number] Insurance:[facility]: [place] CARE [id number] Hospital [address]2019Kmz: (330) Number: Repository [phone] () [id number] Date:1471-03-56[place] [address]WP: 02/04/2018 Secondary NOT GIVENUNK [place] Insurance:SELF PAY [facility] Number: Effective Repository Date:2018-01-28 01/23/2018 SABINA Olsen Primary SABINA Bacon [id number] [facility] BRA[facility]: [place] CARE [id number] [id number] Ville [address]Tel: (330) Number: Repository [phone] () [id number] Date:9622-55-60SB [address]UPOFJGU[address] [place] [address]IR: 01/23/2018 Secondary NOT GIVENUNK [place] Insurance:SELF PAY [facility] Number: Effective Repository Date:2018-01-22 01/02/2018 SABINA Olsen Primary SABINA Olsen [place] [id number] Insurance:[facility]: [facility] [id number] [id number] Ville [address]Tel: (330) Number: Repository [phone] () [id number] Date:9846-51-81LC[address] [address]BC: 01/02/2018 Secondary NOT GIVENUNK [place] Insurance:SELF PAY [facility] Number: Effective Repository Date:2018-01-02 12/26/2017 SABINA Olsen Primary SABINA Bacon [id number] Insurance:[facility] BRAUNDOB: [facility] [id number] [id number] Ville [id number]: (162) Number: Repository [phone] () [id number] Date:5333-93-02JI [address]ERTASCA[address] [place] [address]ZJ: 12/26/2017 Secondary NOT GIVENUNK [place] Insurance:SELF PAY [facility] Number: Effective Repository Date:2017-12-10 12/26/2017 SABINA Olsen Primary SABINA Hutchinsonoster [id number] Insurance:[place] BRAUNDOB: [place] [id number] Hospital [address]Jxo: (330) Number: Repository [phone] () [id number] Date:5417-21-80GN[address] [address]PZ: 12/26/2017 Secondary NOT GIVENUNK [place] Insurance:SELF PAY [facility] Number: Effective Repository Date:2017-12-26 12/25/2017 SABINA Olsen Primary SABINA Olsen [place] [id number] Insurance:[facility] [place] [id number] Ville [address]Tel: (330) Number: Repository [phone] () [id number] Date:2049-59-87IA[address] [address]WQ: 12/25/2017 Secondary NOT GIVENUNK [place] Insurance:SELF PAY [facility] Number: Effective Repository Date:2017-12-10 12/25/2017 SABINA Olsen Primary SABINA Olsen [place] [id number] Insurance:[facility] [place] [id number] Ville [id number]: (330) Number: Repository [phone] () [id number] Date:9296-67-55KS[address] [address]CD: 12/25/2017 Secondary NOT GIVENUNK [place] Insurance:SELF PAY [facility] Number: Effective Repository Date:2017-12-25 12/10/2017 SABINA Olsen Primary SABINA Olsen [place] [id number] Insurance:[facility] [place] [id number] [id number] Ville [phone]: (330) Number: Repository [phone] () [id number] Date:5930-66-03TJ[address] [address]PG: 12/10/2017 Secondary NOT GIVENUNK [place] Insurance:SELF PAY [facility] Number: Effective Repository Date:2017-11-30 11/29/2017 SABINA Olsen Primary SABINA Olsen [place] [id number] Insurance:[facility]: [facility] [id number] [id number] Hospital [address]Mqa: 330) Number: Repository [phone] () [id number] Date:1534-54-19HO [facility] 416389LBXGVVG, [place] [address]KF: 11/29/2017 Secondary NOT GIVENUNK [place] Insurance:SELF PAY [facility] Number: Effective Repository Date:2017-11-29 09/24/2017 SABINA Olsen Primary SABINA Hutchinsonoster [id number] Insurance:[facility] Number: [id number] Hospital [address]Qro: [phone]) [id number] Repository [phone] () Date:2017-09-23 09/24/2017 Secondary SABINA Bacon Insurance:[facility]: [facility] [id number] [id number] Hospital Number: Repository [id number] Date:8937-53-40HN [address]TSUAMJY, [place] [address]FA: 09/24/2017 Tertiary NOT GIVENUNK [place] Insurance:SELF PAY [facility] Number: Effective Repository Date:2017-09-23 09/24/2017 SABINA Olsen Primary SABINA Olsen [place] [id number] Insurance:[facility]: [facility] [id number] [id number] Hospital [address]Fiu: (178) Number: Repository [phone] () [id number] Date:5375-96-99XI [facility] 490770DLJKIPK, [place] [address]PP: 09/24/2017 Secondary NOT GIVENUNK [place] Insurance:SELF PAY [facility] Number: Effective Repository Date:2017-09-23 09/24/2017 SABINA Olsen Primary SABINA Hutchinsonoster [id number] Insurance:[facility] [place] [id number] Ville [id number]: (330) Number: Repository [phone] () [id number] Date:2804-71-93QB [facility] 386867MRGFUDS, [place] [address]HM: 09/24/2017 Secondary NOT GIVENUNK [place] Insurance:SELF PAY [facility] Number: Effective Repository Date:2017-09-24 09/24/2017 SABINA Olsen Primary SABINA Olsen [place] [id number] Insurance:[facility]: [place] CARE [id number] Ville [address]Tel: (330) Number: Repository [phone] () [id number] Date:1779-50-90CR [address]SWMSKET, [place] [address]AQ: 09/24/2017 Secondary NOT GIVENUNK [place] Insurance:SELF PAY [facility] Number: Effective Repository Date:2017-09-24 09/24/2017 SABINA Olsen Primary SABINA Olsen [place] [id number] Insurance:[facility]: [place] [id number] Ville [address]Tel: (330) Number: Repository [phone] () [id number] Date:7097-88-32SI [address]EAMLAOU, [place] [address]KT: 09/24/2017 Secondary NOT GIVENUNK [place] Insurance:SELF PAY [facility] Number: Effective Repository Date:2017-09-24 09/23/2017 SABINA Olsen Primary SABINA Olsen [place] [id number] Insurance:[facility] [place] [id number] Hospital [address]Qvp: (330) Number: Repository [phone] () [id number] Date:9867-85-34OL [address]ZFZMEVK, [place] [address]QP: 09/23/2017 Secondary NOT GIVENUNK [place] Insurance:SELF PAY [facility]: Effective Repository Date:2017-09-23 09/13/2017 SABINA Olsen Primary SABINA Olsen [place] [id number] Insurance:[facility]: [facility] [id number] Ville [id number]: (330) Number: Repository [phone] () [id number] Date:7722-85-86NV [facility] 628184ETYPTCM, [place] [address]EE: 09/13/2017 Secondary SABINA C [place] Insurance:MEDICARE A BRAUNDOB: [facility] Number: [id number] Hospital [id number] Repository Date:2017-09-13 09/13/2017 Tertiary NOT GIVENUNK [place] Insurance:SELF PAY [facility] Number: Effective Repository Date:2017-09-13 09/13/2017 SABINA Olsen Primary SABINA Bacon [id number] Insurance:[facility]: [facility] [id number] Ville [id number]: (330) Number: Repository [phone] () [id number] Date:7718-76-52OX [facility] 912522WCCQAPJ, [place] [address]OY: 09/13/2017 Secondary NOT GIVENUNK [place] Insurance:SELF PAY [facility] Number: Effective Repository Date:2017-09-13 09/13/2017 SABINA Olsen Primary SABINA Olsen [place] [id number] Insurance:[facility]: [facility] [id number] [id number] Ville [id number]: (330) Number: Repository [phone] () [id number] Date:8988-07-45XT [address]YCHPOOV, [place] [address]OE: 09/13/2017 Secondary NOT GIVENUNK [place] Insurance:SELF PAY [facility] Number: Effective Repository Date:2017-09-13 09/13/2017 SABINA Olsen Primary SABINA Olsen [place] [id number] Insurance:[facility] BRAUNDOB: [facility] [id number] [id number] Ville [id number]: (330) Number: Repository [phone] () [id number] Date:0110-87-57US [address]RYZFSVT, [place] [address]ZJ: 09/13/2017 Secondary NOT GIVENUNK [place] Insurance:SELF PAY [facility] Number: Effective Repository Date:2017-09-13 09/13/2017 SABINA Olsen Primary SABINA Olsen [place] [id number] Insurance:[facility]: [facility] [id number] Hospital [address]Pqh: (330) Number: Repository [phone] () [id number] Date:4490-92-30EU [address]CXRQWVA, [place] [address]FK: 09/13/2017 Secondary NOT GIVENUNK [place] Insurance:SELF PAY [facility] Number: Effective Repository Date:2017-09-13 09/13/2017 SABINA Olsen Primary SABINA Bacon [id number] Insurance:MEDICARE A [place]UNB: [facility] Number: [id number] Ville [id number]: (921) [id number] Repository [phone] () Date:2017-09-13 09/13/2017 Secondary SABINA Olsen [place] Insurance:[facility] [id number] [id number] Hospital Number: Repository [id number] Date:2992-00-48FB [facility] 550181PTRPEMR, [place] [address]HX: 09/13/2017 Tertiary NOT GIVENUNK [place] Insurance:SELF PAY [facility] Number: Effective Repository Date:2017-09-13 09/13/2017 SABINA Olsen Primary SABINA Bacon [id number] Insurance:[facility] [id number] [id number] Ville [address]Tel: (330) Number: Repository [phone] () [id number] Date:1506-19-08JL [facility] 898356DNPDFKT, [place] [address]DM: 09/13/2017 Secondary NOT GIVENUNK [place] Insurance:SELF PAY [facility] Number: Effective Repository Date:2017-09-13 09/13/2017 SABINA Olsen Primary SABINA Bacon [id number] Insurance:[facility]: [place] [id number] Ville [id number]: (330) Number: Repository [phone] () [id number] Date:3171-30-63DU [facility] 441895EKHPOEZ, [place] [address]GV: 09/13/2017 Secondary NOT GIVENUNK [place] Insurance:SELF PAY [facility] Number: Effective Repository Date:2017-09-13 09/13/2017 SABINA Olsen Primary SABINA Bacon [id number] Insurance:[facility] [id number] Ville [id number]: (330) Number: Repository [phone] () [id number] Date:7464-76-52LA [facility] 071873RFIEUOR, [place] [address]AT: 09/13/2017 Secondary NOT GIVENUNK [place] Insurance:SELF PAY [facility] Number: Effective Repository Date:2017-09-13 09/13/2017 SABINA Olsen Primary SABINA Olsen [place] [id number] Insurance:[facility]: [place] CARE [id number] [id number] Ville [address]Tel: (330) Number: Repository [phone] () [id number] Date:0355-97-27TI [address]TMERHHM, [place] [address]VS: 09/13/2017 Secondary NOT GIVENUNK [place] Insurance:SELF PAY [facility] Number: Effective Repository Date:2017-09-13 09/13/2017 SABINA Olsen Primary SABINA Olsen [place] [id number] Insurance:[facility] [id number] [id number] [place]ille [address]Tel: (330) Number: Repository [phone] () [id number] Date:4099-57-44WC [address]ZDZQQOG, [place] [address]BJ: 09/13/2017 Secondary NOT GIVENUNK [place] Insurance:SELF PAY [facility] Number: Effective Repository Date:2017-09-13 09/13/2017 SABINA Olsen Primary SABINA Bacon [id number] Insurance:[facility]: [facility] [id number] [id number] Ville [id number]: (330) Number: Repository [phone] () [id number] Date:3780-75-60OZ [facility] 596496WVESHTD, [place] [address]YR: 09/13/2017 Secondary NOT GIVENUNK [place] Insurance:SELF PAY [facility] Number: Effective Repository Date:2017-09-13
== END ==
PROVIDERS: Family Provider Internal Medicine; PCP Internal Medicine; Referring Provider Internal Medicine Hematology & Oncology; Visit Provider Internal Medicine Hematology & Oncology
DX: D50.9 Iron deficiency anemia, unspecified (principal)
CPT/HCPCS: 36430; 86850; 86900; 86920; 86922; J7040; P9016; A4216

== ENCOUNTER 2018-05-03 12:41 | Inpatient (IN) | payer OTHER, MEDICARE, SELFPAY ==
[2018-05-03] VITALS (16 sets, daily range): BP systolic 112–129; BP diastolic 59–81; PULSE 28–120; RESP 12–30; TEMP 36.6–36.8; O2SAT 2–96; BMI 16.7; BMI 14.8
--- NOTE | 2018-05-03 12:48 | EKG12_ITS ---
Test Reason : SOB Blood Pressure : / mmHG Vent. Rate : 111 BPM Atrial Rate : 111 BPM P-R Int : 166 ms QRS Dur : 074 ms QT Int : 336 ms P-R-T Axes : 070 -31 077 degrees QTc Int : 456 ms Sinus tachycardia with occasional Premature ventricular complexes Left axis deviation Low voltage QRS Inferior infarct , age undetermined Abnormal ECG Confirmed by INDIO MARQUEZ, BETSY ([id number]), marketing editor NICKY JOLLEY ([id number]) on 05/07/2018 8:46:02 AM Referred By: Tomasa Chris Confirmed By:BETSY BORJAS MD
--- NOTE | 2018-05-03 12:48 | RAD_ITS ---
STUDY: X-RAY CHEST REASON FOR EXAM: Male, 78 years old. COPD. Shortness of breath. TECHNIQUE: Single AP portable view of the chest. COMPARISON: Comparison is made with prior examination dated March 04, 2018. FINDINGS: EKG electrodes are seen. Hyperinflation. There now is evidence of increased markings in the medial aspects of both lung bases suggestive of atelectasis and/or early infiltrates. Follow-up is recommended. There is no demonstrated pleural abnormality. Normal size heart. Normal mediastinum and malia. There is prominence of the pulmonary hilar arteries without peripheral pulmonary vascular congestion, suggesting pulmonary hypertension. There is atherosclerotic tortuosity of the aortic arch and descending thoracic aorta. Normal visualized thoracic spine. Normal visualized ribs, clavicles, and shoulders. There is no demonstrated abnormality of the visualized soft tissue structures of the upper abdomen. RAD/Chest 1 View (Portable) IMPRESSION: Hyperinflation. Increased markings in both lung bases. This may represent either atelectasis and/or early infiltrate. Electronically Signed: Jr Desai MD at 15:08 EST Tel [phone], Service support ,
--- NOTE | 2018-05-03 12:49 | RAD_ITS ---
STUDY: X-RAY - PELVIS REASON FOR EXAM: Male, 78 years old. Pelvic pain. Left hip pain. TECHNIQUE: One view of the pelvis was obtained. COMPARISON: Comparison is made with prior study dated November 21, 2015. FINDINGS: Gas-filled small bowel loops. Normal visualized soft tissue structures. Normal bilateral iliac wings, sacroiliac joints and visualized sacrum. Normal visualized bilateral superior and inferior pubic rami. Normal pubic symphysis. Normal ischial tuberosities. Normal visualized right femoral head. Normal right acetabulum. There is mild articular joint space narrowing of the right hip. Normal visualized left femoral head. Normal left acetabulum. There is mild articular joint space narrowing of the left hip. RAD/Pelvis 1 or 2 Views IMPRESSION: No acute abnormality is seen. Electronically Signed: Jr Desai MD at 15:09 EST Tel [phone], Service support ,
--- NOTE | 2018-05-03 12:49 | ED.VISSUMM ---
- ER Visit Summary Date of Service: 05/03/18 Chief Complaint: Shortness of breath, cough History of Present Illness: The patient is a 78 M who has had shortness of breath and cough. Is been ongoing for a couple of weeks. Shortness of breath is worse with exertion. His cough is productive of a dark sputum. He denies fevers or chest pain. He is a former smoker. He does have a diagnosis of COPD. He wears oxygen only at night. He also complains of a headache and as well as left hip pain. He denies any falls. He states he was admitted to the hospital for pneumonia about 3 months ago. Physical Examination: Vital signs are reviewed. HEENT exam unremarkable. Heart is tachycardic and regular rhythm without murmurs. Lungs have wheezing in the bilateral lower lung michaels. Abdomen soft and nontender. Extremities reveal no edema. He does have tenderness in the posterior left iliac area. Neurologic exam normal. Test Results: Chest x-ray reveals chronic changes possible early infiltrates. Pelvis x-ray unremarkable. His EKG is sinus rhythm with a PVC. Nonspecific ST and T wave changes. Blood cell count 26.9. Platelet 1140. Troponin normal. Lactate 1.4 Emergency Department Course and Treatment: Patient meets sepsis criteria. His white count and platelet count are also chronically elevated. However, due to his vital signs and his lung sounds I will treat him for HCAP With vancomycin and Zosyn. He was admitted to the hospital in February. Patient will be admitted to the hospital. Treatment Plan: [] Disposition: Admit Impression: Healthcare associated pneumonia, sepsis This note was generated with CarbonFlow dictation software. It may contain incorrect words, spelling, and punctuation that were not noted in review of the chart prior to signing ED Disposition - Plan for ED Patient: Chief Complaint: Shortness of Breath Referrals: Varun Wang MD [Primary Care Provider] -
[2018-05-03] MEDS: MethylPREDNISolone 125 MG/2 ML Vial IV (13:16)
[2018-05-03] MEDS: Albuterol 2.5 MG/3 ML VIAL.NEB. INHALATION ×3 (13:18)
--- NOTE | 2018-05-03 13:20 | ED.RN ---
accidently scanned aerosols x4.
[2018-05-03 13:32] LABS: Anion Gap 12 (5-15); BUN 15 mg/dL (7-18); BUN/Creat Ratio 13.6 RATIO (10-20); Calcium,Total 9.2 mg/dL (8.5-10.1); Chloride 102 mmol/L (98-107); EST Glomerular Filtration Rate 69 mL/min (>60); Est Glom Filt Rate - Afr Amer 83 mL/min (>60); Estimated Creatinine Clearance 42.61 ml/min; Glucose 120 mg/dL (74-106); Potassium 4.1 mmol/L (3.5-5.1); Sodium Level 141 mmol/L (136-145)
[2018-05-03 13:40] LABS: Hemoglobin 14.9 g/dl (13.0-16.5); Mean Corpuscular Hgb 22.2 pg (27.0-32.0); Mean Corpuscular Volume 76.1 fL (80-94); White Blood Count 26.9 K/mm3 (4.4-11.0)
[2018-05-03 13:41] LABS: Basophil% 0.7 % (0-1); Eosinophils% 1.3 % (0-5); Lymphocyte % 1.8 % (19-41); Mean Corp Hgb Conc 29.2 g/gl (32-36); Mean Platelet Vol. 8.8 fl (6.2-12.0); Neutrophil # 24.04 X10^3/uL (2.7-7.7); Neutrophil % 89.5 % (47-70); RBC Distribution Width CV 24.6 % (11.6-14.6); RBC Distribution Width SD 66.6 fl (35.1-43.9)
[2018-05-03 13:42] LABS: Absolute Lymphocyte Count 0.48 X10^3/ul (0.83-4.51); Eosinophil# 0.34 X10^3/uL; Lymphocyte # 0.48 X10^3/ul (4.0); POSITIVE COUNT YES; POSITIVE DIFFERENTIAL YES; POSITIVE MORPHOLOGY YES
[2018-05-03 13:43] LABS: Differential Indicated SCAN CRITERIA MET; Platelet Count 1140 K/mm3 (150-450)
[2018-05-03] MEDS: HYDROcodone Bitartrate/Apap 5/325 Tablet PO (13:44)
--- NOTE | 2018-05-03 13:44 | ED.RN ---
lab called with critical lab results. Plt count 1040. Dr. Holland made aware no new orders at this time
[2018-05-03 13:49] LABS: Lactic Acid 1.4 mmol/L (0.4-2.0)
[2018-05-03] MEDS: 0.9% Normal Saline 1,000 ML 999 ML IV (15:00)
[2018-05-03] MEDS: Piperacil/Tazobactam 3.375 GM/50 ML ML IV ×2 (15:26→22:16)
--- NOTE | 2018-05-03 15:35 | PCM.HP.STD ---
Problem List (1) Osteomyelitis of finger of left hand Status: Resolved Comment: PIP joint left index finger (2) Neoplasm of unspecified behavior of bone, soft tissue, and skin Status: Resolved Comment: 5 mm mass dorsal radial aspect at PIP joint left index finger (3) longterm current use of anticoagulant Status: Chronic (4) Gout Status: Chronic Comment: gouty mass dorsal radial aspect PIP joint left index finger (5) Chronic respiratory failure with hypoxia Status: Chronic (6) Iron deficiency anemia Status: Chronic (7) Hyperuricemia Status: Chronic (8) Sepsis Status: Acute (9) Former smoker Status: Chronic (10) Benign esophageal stricture Status: Chronic (11) Malnutrition of moderate degree Status: Chronic (12) Leukocytosis Status: Chronic (13) Dysphagia Status: Chronic Qualifiers: (14) Hypersomnia Status: Chronic (15) COPD (chronic obstructive pulmonary disease) Status: Chronic Qualifiers: Comment: FEV1 51% (16) History of peptic ulcer disease Status: Chronic History of Present Illness Date of Admission: 05/03/18 Chief Complaint: Cough, shortness of breath. The patient is a 78 year old M who presents to the Emergency Room due to cough, shortness of breath. Patient states he developed a cough shortly after [place] which has been productive with white/best sputum. He denies fever, chills. He has had associated shortness of breath. Patient reports poor oral intake and nausea. He had multiple episodes of emesis overnight. Complains of generalized weakness. Denies abdominal pain. Patient reports he did have diarrhea a few days ago which has since resolved. Denies blood in stool. Denies chest pain. He has a past medical history of COPD, vocal cord cancer status post radiation currently in remission, chronic hypoxic respiratory failure, former tobacco use, moderate to severe protein calorie malnutrition, chronic leukocytosis, chronic thrombocytosis, benign esophageal stricture, pill induced esophagitis, partial gastrectomy due to bleeding peptic ulcer approximately 15 years ago, iron deficiency anemia. Past Medical History Past Medical History (Chronic Problems): Chronic Problems (Last Reviewed 03/04/18 @ 07:47 by Dary Thomas) longterm current use of anticoagulant (Chronic) Gout (Chronic) gouty mass dorsal radial aspect PIP joint left index finger Chronic respiratory failure with hypoxia (Chronic) Iron deficiency anemia (Chronic) Hyperuricemia (Chronic) Former smoker (Chronic) Benign esophageal stricture (Chronic) Malnutrition of moderate degree (Chronic) Leukocytosis (Chronic) Dysphagia (Chronic) Hypersomnia (Chronic) COPD (chronic obstructive pulmonary disease) (Chronic) FEV1 51% History of peptic ulcer disease (Chronic) Medical History: Medical History (Last Reviewed 03/04/18 @ 07:47 by Dary Thomas) COPD (chronic obstructive pulmonary disease) (Chronic) J44.9 FEV1 51% Atypical chest pain (Chronic) R07.89 History of peptic ulcer disease (Chronic) Z87.11 Adenomatous colon polyp D12.6 Gout M10.9 History of cataract Z86.69 Hypoxemia R09.02 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 Pancreatitis K85.90 Polycythemia D75.1 Protein calorie malnutrition E46 Thrombocytosis D47.3 Chronic back pain M54.9, G89.29 Iron deficiency anemia D50.9 Stage 2 moderate COPD by GOLD classification J44.9 Tobacco use Z72.0 Elevated LFTs (Resolved) R79.89 Pneumonia (Resolved) J18.9 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 Allergies doxycycline Adverse Reaction (Verified 05/03/18 15:25) PANCREATITIS Home Medications: Ambulatory Orders Medication Instructions Recorded Albuterol Inhaler [Ventolin Hfa] 2 puff INHALATION Q6H PRN PRN 01/02/14 Allopurinol [Zyloprim] 300 mg PO DAILY 09/23/17 Fluticasone 110 Mcg [Flovent 110 1 puff INHALATION BID 09/23/17 Mcg] Aspirin [Aspirin, Baby] 81 mg PO DAILY 05/03/18 Cholecalciferol (Vitamin D3) 1,000 unit PO DAILY 05/03/18 [Vitamin D3] Ondansetron [Ondansetron Odt] 4 mg PO Q4H PRN PRN 05/03/18 Oxycodone HCl 5 mg PO PRN PRN 05/03/18 Pantoprazole Sodium [Protonix] 20 mg PO DAILY 05/03/18 Surgical History: Surgical History (Last Reviewed 05/03/18 @ 15:44 by ZAN Burger) Esophageal dilatation K22.8 2004 Floor of mouth resection, sialadochoplasty 2017 H/O colonoscopy Z98.890 2015, 2012, 2004 History of esophagogastroduodenoscopy (EGD) Z98.890 2012 2003 History of laryngoscopy Z98.890 2014 S/P partial gastrectomy Z90.3 1970 Psychiatric History: No pertinent psych hx Lives: Spouse/ Significant Other Smoking Status: Former smoker Alcohol: Occasional Drugs: None - *Family History Maternal Family History: Family History (Last Reviewed 05/03/18 @ 15:45 by ZAN Burger) Brother Brain cancer Bone cancer Brain tumor Father CAD (coronary artery disease) Heart disease History Items: - - No cardiac hx Paternal Family History: Family History (Last Reviewed 05/03/18 @ 15:45 by ZAN Burger) Brother Brain cancer Bone cancer Brain tumor Father CAD (coronary artery disease) Heart disease Review of Systems Constitutional: Reports: Weakness, Fatigue, - - Poor appetite/oral intake. Denies: Chills, Fever HEENT: Denies: Difficulty Swallowing, Head Aches, Sinus Congestion, Sinus Drainage, Sore Throat Cardiovascular: Denies: Chest Pain, Edema, Light Headedness, Palpitations, Syncope Respiratory: Reports: Cough, Shortness of Breath, Sputum production. Denies: Wheezing Gastrointestinal: Reports: Diarrhea - Resolved, Nausea, Vomiting. Denies: Abdominal Pain Genitourinary: Denies: Dysuria Musculoskeletal: Denies: Joint Pain, Joint Tenderness Skin: Denies: Rash, Wounds Neurological: Denies: Numbness, Tingling, Focal weakness Psychiatric: Denies: Anxiety, Depression, Homicidal Ideations, Suicidal Ideations Hematologic/ Lymphatic: Denies: Easy Bruising, Easy Bleeding VTE Information - Inpt Only VTE Present on Admission: No VTE Mechan Device Prophylaxis: None VTE Pharm Prophylaxis ordered?: Yes - Physical Exam General: Alert, Oriented x3, Cooperative, - - Cachectic HEENT: Atraumatic, PERRLA, EOMI, Normocephalic Oral: Dry Mucosa Neck: Supple, No JVD, Negative Carotid Bruits Lungs: Diminished, Wheezes Cardiovascular: Regular Rhythm, Normal S1, Normal S2, No murmurs, Tachycardic Abdomen: Bowel Sounds Present, Soft, Non Tender, Non-Distended Extremities: No clubbing, No cyanosis, No edema, Capillary Refill Less than 3 Seconds Skin: No rashes, No breakdown Musculoskeletal: No Tenderness to Palpation of Joints or Extremities, Cachexia, Muscle Wasting Neurological: Cranial nerves II-XII grossly intact, Neuro grossly intact Psych/Mental Status: Normal Affect, Appropriate Vital Signs Temp Pulse Resp BP Pulse Ox 98.2 F 112 H 29 H 112/69 96 05/03/18 12:42 05/03/18 15:23 05/03/18 15:23 05/03/18 15:23 05/03/18 15:23 Oxygen Flow Rate (L/min) 3 Oxygen Delivery Method Nasal Cannula Weight: 120 lb Body Mass Index (BMI) 16.7 Microbiology Past 72 Hours 05/03/18 13:10 Influenza Types A,B Direct FA (NOEMI) - Final Mucosa - Nasopharyngeal Laboratory Tests Past 24 Hrs 05/03/18 05/03/18 05/03/18 13:05 13:05 13:10 WBC 26.9 H RBC 6.70 H Hgb 14.9 Hct 51.0 MCV 76.1 L MCH 22.2 L MCHC 29.2 L RDW 24.6 H RDW Differential 66.6 H Plt Count 1140 H* MPV 8.8 Immature Gran % (Auto) 0.700 Neut % (Auto) 89.5 H Lymph % (Auto) 1.8 L Ness % (Auto) 6.0 Eos % (Auto) 1.3 Baso % (Auto) 0.7 Absolute Neuts (auto) 24.0 H Absolute Lymphs (auto) 0.48 L Total Counted Not Reportable Differential Comment COMMENT Diff Path Review August foll Sodium 141 Potassium 4.1 Chloride 102 Carbon Dioxide 27.0 Anion Gap 12 BUN 15 Creatinine 1.10 Estim Creat Clear Calc 42.61 Est GFR (MDRD) Af Amer 83 Est GFR (MDRD) Non-Af 69 BUN/Creatinine Ratio 13.6 Glucose 120 H Lactic Acid 1.4 Calcium 9.2 Troponin I < 0.015 Assessment/Plan All Active Problems (Last Reviewed 03/04/18 @ 07:47 by Dary Thomas) Sepsis (Acute) JULIANA (acute kidney injury) (Resolved) Elevated LFTs (Resolved) Foreign body in esophagus (Resolved) Neoplasm of unspecified behavior of bone, soft tissue, and skin (Resolved) Osteomyelitis of finger of left hand (Resolved) Pneumonia (Resolved) 1. Sepsis secondary to healthcare associated pneumonia and COPD exacerbation- (tachycardia, tachypnea, leukocytosis) Lactic acid within normal limits. 2. Healthcare associated pneumonia-chest x-ray on admission with increased markings in both lung bases, possible early infiltrate. Patient initiated on IV Zosyn and IV vancomycin in ER, continue. Albuterol DuoNeb aerosols. Send sputum for culture. Mucinex 1200 mg p.o. twice daily. 3. COPD exacerbation-albuterol DuoNeb aerosols. IV Solu-Medrol. Patient follows with Dr. Dobbins. 4. Acute on chronic hypoxic respiratory failure, secondary to #1/#2-patient documented to be hypoxic on admission. Wears supplement oxygen at bedtime as needed. Continue supplement oxygen to maintain O2 at or above 90%. 5. History of vocal cord cancer status post radiation, currently in remission/benign esophageal stricture- ST consult. Patient denies dysphagia. 6. Iron deficiency anemia-recent transfusion [address] Aguillon, 04/12/18. Continue iron supplementation. Trend CBC. 7. Former tobacco use-encouraged continued cessation. 8. Moderate to severe protein calorie malnutrition-Nutrition consult. BMI 16.7. 9. Chronic leukocytosis/chronic thrombocytosis-Follows with Dr. Aguillon. Stable. 10. 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 DVT prophylaxis-lovenox sc. This patient was seen by Dai Romano NP-Raúl under the supervision of Dr. Chris.
[2018-05-03 16:43] LABS: BNP,B-Type NATRIURETIC PEPTIDE 90.7 pg/mL (0-100)
[2018-05-03] MEDS: 0.9% Normal Saline 1,000 ML 125 ML IV ×2 (16:55→22:16)
[2018-05-03 17:31] LABS: Magnesium 2.3 mg/dL (1.6-2.6); Phosphorus 1.4 mg/dL (2.5-4.9)
[2018-05-03 18:05] LABS: Allen Test POS; Base Excess -3 mmol/L (-2 to +2); Bicarbonate 20.2 mmol/L (22-26); Blood Gas Specimen Type ART; O2 Delivery Device Nasal Can; PO2 73 mmHG (75-100); SITE L Radial; SO2 96 % (95-99); Time Given 1745; Total Carbon Dioxide 21 mmol/L; pCO2 27.6 mmHg (35-45); pH 7.47 (7.35-7.45)
[2018-05-03] MEDS: Ipratropium/Albuterol Sulfate 3 ML AMPUL.NEB INHALATION (20:28)
--- NOTE | 2018-05-03 21:10 | PHA.PHARE_ITS ---
Consult Pharmacy has been consulted to manage selected antiobiotic: Vancomycin Type of Consult: New start Suspected Infection: Pneumonia Prior Doses of Antibiotics Received/Current Regimen: Vancomycin 750mg IV x1 in ER 05/03/18 at 1700 Labs: Sodium 141 mmol/L (136-145) 05/03/18 13:05 Potassium 4.1 mmol/L (3.5-5.1) 05/03/18 13:05 Chloride 102 mmol/L (98-107) 05/03/18 13:05 Carbon Dioxide 27.0 mmol/L (21.0-32.0) 05/03/18 13:05 Anion Gap 12 (5-15) 05/03/18 13:05 BUN 15 mg/dL (7-18) 05/03/18 13:05 Creatinine 1.10 mg/dL (0.70-1.30) 05/03/18 13:05 Est GFR (MDRD) Af Amer 83 mL/min (>60) 05/03/18 13:05 Est GFR (MDRD) Non-Af 69 mL/min (>60) 05/03/18 13:05 BUN/Creatinine Ratio 13.6 RATIO (10-20) 05/03/18 13:05 Glucose 120 mg/dL (74-106) H 05/03/18 13:05 Microbiology: Microbiology 05/03/18 13:10 Mucosa - Nasopharyngeal Influenza Types A,B Direct FA (NOEMI) - Final Weight used for dosin kg Estimated Creatinine Clearance: 43ml/min Goal Trough: 15-20 mcg/mL Pharmacy Plan for Drug Dosing: Recommend Vancomycin 1000mg IV q24h starting 05/04/18 at 1700. Est trough of 15- 20 due to pt have hcap. Pharmacy Service will continue to monitor and adjust dosing as required. Follow-Up Labs: Trough Vancomycin Labs to be done on [date and time ordered]: vanc trough level 05/06/18 at 1630
[2018-05-03] MEDS: Na Biphos/Potassium Phosphate PACKET 1 PACKET PO (22:19)
[2018-05-03] MEDS: Acetaminophen 325 MG Tablet 650 MG PO (22:34)
[2018-05-04] VITALS (14 sets, daily range): BP systolic 105–135; BP diastolic 62–81; PULSE 80–97; RESP 15–22; TEMP 36.3–36.6; O2SAT 92–94
[2018-05-04] MEDS: Piperacil/Tazobactam 3.375 GM/50 ML ML IV (06:22)
[2018-05-04] MEDS: Ipratropium/Albuterol Sulfate 3 ML AMPUL.NEB INHALATION ×4 (07:30→19:24)
[2018-05-04 09:51] LABS: Hemoglobin 11.9 g/dl (13.0-16.5); Mean Corp Hgb Conc 30.5 g/gl (32-36); Mean Corpuscular Hgb 22.8 pg (27.0-32.0); Mean Corpuscular Volume 74.9 fL (80-94); Mean Platelet Vol. 8.9 fl (6.2-12.0); Platelet Count 605 K/mm3 (150-450); RBC Distribution Width CV 25.2 % (11.6-14.6); RBC Distribution Width SD 66.6 fl (35.1-43.9); Red Blood Count 5.21 M/mm3 (4.6-6.2); White Blood Count 26.8 K/mm3 (4.4-11.0)
[2018-05-04] MEDS: oxyCODONE 5 MG Tablet PO (10:13)
[2018-05-04] MEDS: Allopurinol 300 MG Tablet PO (10:13)
[2018-05-04] MEDS: Pantoprazole Sodium 20 MG Tablet PO (10:13)
[2018-05-04] MEDS: Aspirin 81 MG TAB.CHEW PO (10:13)
[2018-05-04] MEDS: Na Biphos/Potassium Phosphate PACKET 1 PACKET PO (10:14)
[2018-05-04] MEDS: Enoxaparin 40 MG/0.4 ML Syringe SC (10:17)
[2018-05-04 10:27] LABS: Scan Indicated on CBC? Y/N YES- FLAGS NOTED
[2018-05-04] MEDS: levoFLOXacin 750 MG Tablet PO (12:27)
--- NOTE | 2018-05-04 12:29 | CASEMGMT ---
Social Work Spoke with patient in room. Patient reporting to live in a 2 story home with x2 steps to enter the home. Physical therapy recommending for patient to have either home health or outpatient therapy. Patient declining to have any continued therapy services at this time and plans to discharge to home with spouse. Patient reporting to have a cane as well as home oxygen. Oxygen set up through [facility]. Patient reporting no needs. Support given. No further needs at this time. Surya Munoz, [employer] DR[employer]ER, [employer]
--- NOTE | 2018-05-04 14:16 | PCM.PROGNOTE ---
Subjective: Patient seen and examined. Continues to have cough and shortness of breath, although improved. Denies fever, chills. Denies other current complaints. - Physical Exam General: Alert, Oriented x3, Cooperative, - - Cachectic HEENT: Atraumatic, PERRLA, EOMI, Normocephalic Oral: Dry Mucosa Neck: Supple, No JVD, Negative Carotid Bruits Lungs: Diminished, Wheezes Cardiovascular: Regular rate, Regular Rhythm, Normal S1, Normal S2, No murmurs Abdomen: Bowel Sounds Present, Soft, Non Tender, Non-Distended Extremities: No clubbing, No cyanosis, No edema, Capillary Refill Less than 3 Seconds Skin: No rashes, No breakdown Musculoskeletal: No Tenderness to Palpation of Joints or Extremities Neurological: Cranial nerves II-XII grossly intact, Neuro grossly intact Psych/Mental Status: Normal Affect, Appropriate Vital Signs Temp Pulse Resp BP Pulse Ox 97.6 F L 92 20 H 133/80 H 92 05/04/18 09:55 05/04/18 11:08 05/04/18 10:39 05/04/18 09:55 05/04/18 09:55 Oxygen Flow Rate (L/min) 2 Oxygen Delivery Method Nasal Cannula Weight: 106 lb 0.677 oz Body Mass Index (BMI) 14.8 Intake and Output for Last 24 Hours 05/02/18 05/03/18 05/04/18 23:59 23:59 23:59 Intake Total 240 / 240 1617 / 1617 Output Total 200 / 200 Balance 240 / 240 1417 / 1417 Microbiology Past 72 Hours 05/03/18 17:45 Respiratory Panel (PCR) - Final Interface Orders Human [place] 05/03/18 13:10 Influenza Types A,B Direct FA (NOEMI) - Final Mucosa - Nasopharyngeal Laboratory Tests Past 24 Hrs 05/03/18 05/03/18 05/03/18 13:05 16:21 17:58 WBC RBC Hgb Hct MCV MCH MCHC RDW RDW Differential Plt Count MPV Differential Comment Specimen Type ART Sample Site L Radial pH 7.47 H Bicarbonate Actual 20.2 L POC Total CO2 21 Base Excess -3 L O2 Saturation 96 ABG pCO2 27.6 L ABG pO2 73 L Deniz Test POS O2 Delivery Device Nasal Can Liter Flow 2.0 Blood Gas Notified Whom HOSP Blood Gas Notified Time 1745 Phosphorus 1.4 L Magnesium 2.3 B-Natriuretic Peptide 90.7 05/04/18 09:44 WBC 26.8 H RBC 5.21 Hgb 11.9 L Hct 39.0 L MCV 74.9 L MCH 22.8 L MCHC 30.5 L RDW 25.2 H RDW Differential 66.6 H Plt Count 605 H MPV 8.9 Differential Comment Specimen Type Sample Site pH Bicarbonate Actual POC Total CO2 Base Excess O2 Saturation ABG pCO2 ABG pO2 Deniz Test O2 Delivery Device Liter Flow Blood Gas Notified Whom Blood Gas Notified Time Phosphorus Magnesium B-Natriuretic Peptide Medical Necessity - Tobacco Use Smoking Status: Former smoker Tobacco Use: Cigarettes Assessment/Plan All Active Problems (Last Reviewed 03/04/18 @ 07:47 by Dary Thomas) Sepsis (Acute) JULIANA (acute kidney injury) (Resolved) Elevated LFTs (Resolved) Foreign body in esophagus (Resolved) Neoplasm of unspecified behavior of bone, soft tissue, and skin (Resolved) Osteomyelitis of finger of left hand (Resolved) Pneumonia (Resolved) 1. Sepsis secondary to healthcare associated pneumonia and COPD exacerbation as a result of human metaphneumo virus- (tachycardia, tachypnea, leukocytosis on admission) Lactic acid within normal limits. 2. Suspected healthcare associated pneumonia-chest x-ray on admission with increased markings in both lung bases, possible early infiltrate. Patient initiated on IV Zosyn and IV vancomycin in ER. Albuterol DuoNeb aerosols. Send sputum for culture. Mucinex 1200 mg p.o. twice daily. Levaquin 750mg PO daily. 3. COPD exacerbation secondary to human metaphneumo virus-albuterol DuoNeb aerosols. IV Solu-Medrol. Patient follows with Dr. Dobbins. Continue supplement oxygen to maintain O2 at or above 90%. 4. Acute on chronic hypoxic respiratory failure, secondary to #1/#2-patient documented to be hypoxic on admission. Wears supplement oxygen at bedtime as needed. Continue supplement oxygen to maintain O2 at or above 90%. 5. History of vocal cord cancer status post radiation, currently in remission/benign esophageal stricture- ST consult. Patient denies dysphagia. 6. Iron deficiency anemia-recent transfusion [address] Aguillon, 04/12/18. Continue iron supplementation. Trend CBC. 7. Former tobacco use-encouraged continued cessation. 8. Moderate to severe protein calorie malnutrition-Nutrition consult. BMI 16.7. 9. Chronic leukocytosis/chronic thrombocytosis-Follows with Dr. Aguillon. Stable. 10. 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 DVT prophylaxis-lovenox sc. This patient was seen by ZAN Burger under the supervision of Dr. Hazel.
[2018-05-04] MEDS: 0.9% Normal Saline 1,000 ML 125 ML IV ×2 (14:40→21:52)
[2018-05-05] VITALS (9 sets, daily range): BP systolic 126–138; BP diastolic 71–81; PULSE 80–103; RESP 15–20; TEMP 36.4–36.6; O2SAT 87–96
[2018-05-05] MEDS: 0.9% Normal Saline 1,000 ML 125 ML IV (05:53)
[2018-05-05] MEDS: Ipratropium/Albuterol Sulfate 3 ML AMPUL.NEB INHALATION ×2 (06:35→10:59)
[2018-05-05 06:36] LABS: Hematocrit 35.4 % (40-54); Hemoglobin 10.5 g/dl (13.0-16.5); Mean Corp Hgb Conc 29.7 g/gl (32-36); Mean Corpuscular Hgb 22.5 pg (27.0-32.0); Mean Platelet Vol. 9.8 fl (6.2-12.0); Platelet Count 488 K/mm3 (150-450); RBC Distribution Width CV 25.3 % (11.6-14.6); Red Blood Count 4.66 M/mm3 (4.6-6.2)
[2018-05-05 06:37] LABS: Scan Indicated on CBC? Y/N YES- FLAGS NOTED
[2018-05-05 06:47] LABS: Anion Gap 9 (5-15); BUN 23 mg/dL (7-18); BUN/Creat Ratio 15.9 RATIO (10-20); Calcium,Total 7.3 mg/dL (8.5-10.1); Chloride 111 mmol/L (98-107); Creatinine, Serum 1.45 mg/dL (0.70-1.30); EST Glomerular Filtration Rate 50 mL/min (>60); Est Glom Filt Rate - Afr Amer 61 mL/min (>60); Estimated Creatinine Clearance 28.57 ml/min; Glucose 141 mg/dL (74-106); Phosphorus 2.8 mg/dL (2.5-4.9); Potassium 3.9 mmol/L (3.5-5.1); Sodium Level 141 mmol/L (136-145)
[2018-05-05 06:53] LABS: Differential Comment SCAN
[2018-05-05] MEDS: Aspirin 81 MG TAB.CHEW PO (09:47)
[2018-05-05] MEDS: Pantoprazole Sodium 20 MG Tablet PO (09:47)
[2018-05-05] MEDS: Allopurinol 300 MG Tablet PO (09:47)
[2018-05-05] MEDS: Enoxaparin 40 MG/0.4 ML Syringe SC (09:48)
--- NOTE | 2018-05-05 11:24 | DCINST_ITS ---
You will use the following diet at home:: No restrictions Discharge Activity: Return to Normal Activity Call your doctor if you observe: Fever of 101 or Higher, Shortness of breath, Dizziness, Fainting spells, Chest pain Allergies/Adverse Reactions: Allergies doxycycline Adverse Reaction (Verified 05/03/18 15:25) PANCREATITIS Medications to take at Discharge Albuterol Inhaler [Ventolin Hfa] 2 puff INHALATION Q6H PRN PRN 01/02/14 Allopurinol [Zyloprim] 300 mg PO DAILY 09/23/17 Fluticasone 110 Mcg [Flovent 110 Mcg] 1 puff INHALATION BID 09/23/17 Aspirin [Aspirin, Baby] 81 mg PO DAILY 05/03/18 Cholecalciferol (Vitamin D3) [Vitamin D3] 1,000 unit PO DAILY 05/03/18 Ondansetron [Ondansetron Odt] 4 mg PO Q4H PRN PRN 05/03/18 Oxycodone HCl 5 mg PO PRN PRN 05/03/18 Pantoprazole Sodium [Protonix] 20 mg PO DAILY 05/03/18 Prednisone See Taper PO DAILY #30 tablet 05/05/18 levoFLOXacin tablet [Levaquin tablet] 750 mg PO DAILY@0600 #5 tablet 05/05/18 The following prescriptions were given: levoFLOXacin tablet [Levaquin tablet] 750 mg PO DAILY@0600 #5 tablet Prednisone See Taper PO DAILY #30 tablet Primary Care Physician: Varun Wang MD [Primary Care Provider] - Please follow up with your Primary Care Physician in: 1 Week Test Results: Test results from this visit will be discussed in further detail at your follow- up appointment, if applicable. Please Follow Up With: Garland Dbobins MD When: As scheduled, 05/13/18 Please Follow Up With: Joe Aguillon DO When: As scheduled Proposed Discharge Date: 05/05/18
--- NOTE | 2018-05-05 11:26 | PCM.DC.SUM ---
Discharge Date and Diagnosis Date of Admission: 05/03/18 Date of Discharge: 05/05/18 - Primary Discharge Diagnosis 1. Sepsis secondary to healthcare associated pneumonia and COPD exacerbation as a result of human Metapneumo virus 2. Suspected healthcare associated pneumonia 3. COPD exacerbation secondary to human metaphneumo virus 4. Acute on chronic hypoxic respiratory failure, secondary to #1/#2 5. Elevated creatinine 6. 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 Iron deficiency anemia 8. Former tobacco use 9. Moderate to severe protein calorie malnutrition 10. Chronic leukocytosis/chronic thrombocytosis 11. 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 approximately 15 years ago - Secondary Discharge Diagnosis Chronic Problems (Last Reviewed 03/04/18 @ 07:47 by Dary Thomas) senior care current use of anticoagulant (Chronic) Gout (Chronic) gouty mass dorsal radial aspect PIP joint left index finger Chronic respiratory failure with hypoxia (Chronic) Iron deficiency anemia (Chronic) Hyperuricemia (Chronic) Former smoker (Chronic) Benign esophageal stricture (Chronic) Malnutrition of moderate degree (Chronic) Leukocytosis (Chronic) Dysphagia (Chronic) Hypersomnia (Chronic) COPD (chronic obstructive pulmonary disease) (Chronic) FEV1 51% History of peptic ulcer disease (Chronic) Hospital Course and Treatment Imaging Results: Diagnostic Data Chest X-Ray 05/03/18 12:48 IMPRESSION: Hyperinflation. Increased markings in both lung bases. This may represent either atelectasis and/or early infiltrate. Electronically Signed: Jr Desai MD at 15:08 EST Tel [phone], Service support , Pelvis X-Ray 05/03/18 12:49 IMPRESSION: No acute abnormality is seen. Electronically Signed: Jr Desai MD at 15:09 EST Tel [phone], Service support , Operations: None Procedures: None Summary of Care Provided: The patient is a 78 year old M admitted 05/03/2018 due to cough, shortness of breath. 1. Sepsis secondary to healthcare associated pneumonia and COPD exacerbation as a result of human metaphneumo virus- (tachycardia, tachypnea, leukocytosis on admission) Lactic acid within normal limits. 2. Suspected healthcare associated pneumonia-chest x-ray on admission with increased markings in both lung bases, possible early infiltrate. Patient initiated on IV Zosyn and IV vancomycin in ER. Levaquin 750mg PO daily for a total of 7 days. Blood cultures negative. 3. COPD exacerbation secondary to human metaphneumo virus- IV Solu-Medrol during admission. DC on prednisone taper. Patient follows with Dr. Dobbins. Continue supplement oxygen to maintain O2 at or above 90%. Patient has upcoming outpatient appointment with Dr. Dobbins 05/13/2018. 4. Acute on chronic hypoxic respiratory failure, secondary to #1/#2-patient documented to be hypoxic on admission. Wears supplement oxygen at bedtime as needed. Continue supplement oxygen to maintain O2 at or above 90%. 5. History of vocal cord cancer status post radiation, currently in remission/benign esophageal stricture- Patient denies dysphagia. ST eval without s/sx of aspiration. 6. Iron deficiency anemia-recent transfusion [address] Aguillon, 04/12/18. Continue iron supplementation. 7. Former tobacco use-encouraged continued cessation. 8. Moderate to severe protein calorie malnutrition-Nutrition consult. BMI 16.7. Encouraged continued use of Ensure supplementation at discharge. 9. Chronic leukocytosis/chronic thrombocytosis-Follows with Dr. Aguillon. Stable, continue outpatient follow-up. 10. 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 11. Elevated creatinine-unclear etiology. Recommend repeat BMP this week by primary care physician. General: Alert, Oriented x3, Cooperative, Cachectic HEENT: Atraumatic, PERRLA, EOMI, Normocephalic Oral: Dry Mucosa Neck: Supple, No JVD, Negative Carotid Bruits Lungs: Diminished, Wheezes Cardiovascular: Regular rate, Regular Rhythm, Normal S1, Normal S2, No murmurs Abdomen: Bowel Sounds Present, Soft, Non Tender, Non-Distended Extremities: No clubbing, No cyanosis, No edema, Capillary Refill Less than 3 Seconds Skin: No rashes, No breakdown Musculoskeletal: No Tenderness to Palpation of Joints or Extremities Neurological: Cranial nerves II-XII grossly intact, Neuro grossly intact Psych/Mental Status: Normal Affect, Appropriate Patient seen and examined prior to discharge. Physical assessment as noted above. Patient is stable for discharge with follow up recommendations as noted above. This patient was seen by ZAN Burger under the supervision of Dr. Hazel. - Physical Exam Vital Signs Temp Pulse Resp BP Pulse Ox 97.8 F 81 20 H 126/71 H 93 05/05/18 09:39 05/05/18 09:39 05/05/18 10:59 05/05/18 09:39 05/05/18 09:39 Oxygen Flow Rate (L/min) 2.5 Oxygen Delivery Method Nasal Cannula Weight: 106 lb 0.677 oz Body Mass Index (BMI) 14.8 Intake and Output for Last 24 Hours 05/03/18 05/04/18 05/05/18 23:59 23:59 23:59 Intake Total 240 / 240 5286 / 5286 994 / 994 Output Total 200 / 200 Balance 240 / 240 5086 / 5086 994 / 994 Microbiology Past 72 Hours 05/03/18 15:00 Blood Culture - Preliminary Blood Culture (Wb) #2 - Right Wrist No growth in 48 hours. 05/03/18 13:10 Blood Culture - Preliminary Blood Culture (Wb) - Anticubital Right No growth in 48 hours. 05/04/18 05:15 Streptococcus pneumoniae Antigen (M - Final Urine, Clean Catch 05/04/18 05:15 Legionella Antigen - Final Urine, Clean Catch 05/03/18 17:45 Respiratory Panel (PCR) - Final Interface Orders Human [place] 05/03/18 13:10 Influenza Types A,B Direct FA (ONEMI) - Final Mucosa - Nasopharyngeal Laboratory Tests Past 24 Hrs 05/05/18 05/05/18 05:55 05:55 WBC 18.0 H RBC 4.66 Hgb 10.5 L Hct 35.4 L MCV 76.0 L MCH 22.5 L MCHC 29.7 L RDW 25.3 H RDW Differential 67.0 H Plt Count 488 H MPV 9.8 Differential Comment SCAN Sodium 141 Potassium 3.9 Chloride 111 H Carbon Dioxide 21.0 Anion Gap 9 BUN 23 H Creatinine 1.45 H Estim Creat Clear Calc 28.57 Est GFR (MDRD) Af Amer 61 Est GFR (MDRD) Non-Af 50 L BUN/Creatinine Ratio 15.9 Glucose 141 H Calcium 7.3 L Phosphorus 2.8 Discharge Diet: Low fat/ Low Cholesterol Discharge Activity: Return to Normal Activity Call your doctor if you observe: Fever of 101 or Higher, Shortness of breath, Dizziness, Fainting spells, Chest pain Home Medications: Medications to take at Discharge Albuterol Inhaler [Ventolin Hfa] 2 puff INHALATION Q6H PRN PRN 01/02/14 Allopurinol [Zyloprim] 300 mg PO DAILY 09/23/17 Fluticasone 110 Mcg [Flovent 110 Mcg] 1 puff INHALATION BID 09/23/17 Aspirin [Aspirin, Baby] 81 mg PO DAILY 05/03/18 Cholecalciferol (Vitamin D3) [Vitamin D3] 1,000 unit PO DAILY 05/03/18 Ondansetron [Ondansetron Odt] 4 mg PO Q4H PRN PRN 05/03/18 Oxycodone HCl 5 mg PO PRN PRN 05/03/18 Pantoprazole Sodium [Protonix] 20 mg PO DAILY 05/03/18 Prednisone See Taper PO DAILY #30 tablet 05/05/18 levoFLOXacin tablet [Levaquin tablet] 750 mg PO DAILY@0600 #5 tablet 05/05/18 Following Prescrptions Were Given to Patient: levoFLOXacin tablet [Levaquin tablet] 750 mg PO DAILY@0600 #5 tablet Prednisone See Taper PO DAILY #30 tablet Primary Care Physician: Varun Wang MD [Primary Care Provider] - Please follow up with your Primary Care Physician in: 1 Week Please Follow Up With: Garland Dobbins MD When: As scheduled, 05/13/18 Please Follow Up With: Joe Aguillon DO When: As scheduled Disposition: Home Minutes spent on discharge:: 35 Patient Condition:: Stable Medical Necessity - Tobacco Use Smoking Status: Former smoker Tobacco Use: Cigarettes Meaningful Use Info Meaningful Use Diagnoses (Choose all that apply): None applicable
--- NOTE | 2018-05-05 11:32 | DS.PCM_ITS ---
Addendum entered and electronically signed by ZAN Burger 05/05/18 13:43: Code Visit Addendum: Healthcare associated pneumonia presumed secondary to gram-negative organism. Original Note: Discharge Date and Diagnosis Date of Admission: 05/03/18 Date of Discharge: 05/05/18 - Primary Discharge Diagnosis 1. Sepsis secondary to healthcare associated pneumonia and COPD exacerbation as a result of human Metapneumo virus 2. Suspected healthcare associated pneumonia 3. COPD exacerbation secondary to human metaphneumo virus 4. Acute on chronic hypoxic respiratory failure, secondary to #1/#2 5. Elevated creatinine 6. 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 Iron deficiency anemia 8. Former tobacco use 9. Moderate to severe protein calorie malnutrition 10. Chronic leukocytosis/chronic thrombocytosis 11. 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 approximately 15 years ago - Secondary Discharge Diagnosis Chronic Problems (Last Reviewed 03/04/18 @ 07:47 by Dary Thomas) [facility] current use of anticoagulant (Chronic) Gout (Chronic) gouty mass dorsal radial aspect PIP joint left index finger Chronic respiratory failure with hypoxia (Chronic) Iron deficiency anemia (Chronic) Hyperuricemia (Chronic) Former smoker (Chronic) Benign esophageal stricture (Chronic) Malnutrition of moderate degree (Chronic) Leukocytosis (Chronic) Dysphagia (Chronic) Hypersomnia (Chronic) COPD (chronic obstructive pulmonary disease) (Chronic) FEV1 51% History of peptic ulcer disease (Chronic) Hospital Course and Treatment Imaging Results: Diagnostic Data Chest X-Ray 05/03/18 12:48 IMPRESSION: Hyperinflation. Increased markings in both lung bases. This may represent either atelectasis and/or early infiltrate. Electronically Signed: Jr Desai MD at 15:08 EST Tel [phone], Service support , Pelvis X-Ray 05/03/18 12:49 IMPRESSION: No acute abnormality is seen. Electronically Signed: Jr Desai MD at 15:09 EST Tel [phone], Service support , Operations: None Procedures: None Summary of Care Provided: The patient is a 78 year old M admitted 05/03/2018 due to cough, shortness of breath. 1. Sepsis secondary to healthcare associated pneumonia and COPD exacerbation as a result of human metaphneumo virus- (tachycardia, tachypnea, leukocytosis on admission) Lactic acid within normal limits. 2. Suspected healthcare associated pneumonia-chest x-ray on admission with increased markings in both lung bases, possible early infiltrate. Patient initiated on IV Zosyn and IV vancomycin in ER. Levaquin 750mg PO daily for a total of 7 days. Blood cultures negative. 3. COPD exacerbation secondary to human metaphneumo virus- IV Solu-Medrol during admission. DC on prednisone taper. Patient follows with Dr. Dobbins. Continue supplement oxygen to maintain O2 at or above 90%. Patient has upcoming outpatient appointment with Dr. Dobbins 05/13/2018. 4. Acute on chronic hypoxic respiratory failure, secondary to #1/#2-patient documented to be hypoxic on admission. Wears supplement oxygen at bedtime as needed. Continue supplement oxygen to maintain O2 at or above 90%. 5. History of vocal cord cancer status post radiation, currently in remission/benign esophageal stricture- Patient denies dysphagia. ST eval without s/sx of aspiration. 6. Iron deficiency anemia-recent transfusion [address] Aguillon, 04/12/18. Continue iron supplementation. 7. Former tobacco use-encouraged continued cessation. 8. Moderate to severe protein calorie malnutrition-Nutrition consult. BMI 16.7. Encouraged continued use of Ensure supplementation at discharge. 9. Chronic leukocytosis/chronic thrombocytosis-Follows with Dr. Aguillon. Stable, continue outpatient follow-up. 10. 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 11. Elevated creatinine-unclear etiology. Recommend repeat BMP this week by primary care physician. General: Alert, Oriented x3, Cooperative, Cachectic HEENT: Atraumatic, PERRLA, EOMI, Normocephalic Oral: Dry Mucosa Neck: Supple, No JVD, Negative Carotid Bruits Lungs: Diminished, Wheezes Cardiovascular: Regular rate, Regular Rhythm, Normal S1, Normal S2, No murmurs Abdomen: Bowel Sounds Present, Soft, Non Tender, Non-Distended Extremities: No clubbing, No cyanosis, No edema, Capillary Refill Less than 3 Seconds Skin: No rashes, No breakdown Musculoskeletal: No Tenderness to Palpation of Joints or Extremities Neurological: Cranial nerves II-XII grossly intact, Neuro grossly intact Psych/Mental Status: Normal Affect, Appropriate Patient seen and examined prior to discharge. Physical assessment as noted above. Patient is stable for discharge with follow up recommendations as noted above. This patient was seen by ZAN Burger under the supervision of Dr. Hazel. - Physical Exam Vital Signs Temp Pulse Resp BP Pulse Ox 97.8 F 81 20 H 126/71 H 93 05/05/18 09:39 05/05/18 09:39 05/05/18 10:59 05/05/18 09:39 05/05/18 09:39 Oxygen Flow Rate (L/min) 2.5 Oxygen Delivery Method Nasal Cannula Weight: 106 lb 0.677 oz Body Mass Index (BMI) 14.8 Intake and Output for Last 24 Hours 05/03/18 05/04/18 05/05/18 23:59 23:59 23:59 Intake Total 240 / 240 5286 / 5286 994 / 994 Output Total 200 / 200 Balance 240 / 240 5086 / 5086 994 / 994 Microbiology Past 72 Hours 05/03/18 15:00 Blood Culture - Preliminary Blood Culture (Wb) #2 - Right Wrist No growth in 48 hours. 05/03/18 13:10 Blood Culture - Preliminary Blood Culture (Wb) - Anticubital Right No growth in 48 hours. 05/04/18 05:15 Streptococcus pneumoniae Antigen (M - Final Urine, Clean Catch 05/04/18 05:15 Legionella Antigen - Final Urine, Clean Catch 05/03/18 17:45 Respiratory Panel (PCR) - Final Interface Orders Human [place] 05/03/18 13:10 Influenza Types A,B Direct FA (NOEMI) - Final Mucosa - Nasopharyngeal Laboratory Tests Past 24 Hrs 05/05/18 05/05/18 05:55 05:55 WBC 18.0 H RBC 4.66 Hgb 10.5 L Hct 35.4 L MCV 76.0 L MCH 22.5 L MCHC 29.7 L RDW 25.3 H RDW Differential 67.0 H Plt Count 488 H MPV 9.8 Differential Comment SCAN Sodium 141 Potassium 3.9 Chloride 111 H Carbon Dioxide 21.0 Anion Gap 9 BUN 23 H Creatinine 1.45 H Estim Creat Clear Calc 28.57 Est GFR (MDRD) Af Amer 61 Est GFR (MDRD) Non-Af 50 L BUN/Creatinine Ratio 15.9 Glucose 141 H Calcium 7.3 L Phosphorus 2.8 Discharge Diet: Low fat/ Low Cholesterol Discharge Activity: Return to Normal Activity Call your doctor if you observe: Fever of 101 or Higher, Shortness of breath, Dizziness, Fainting spells, Chest pain Home Medications: Medications to take at Discharge Albuterol Inhaler [Ventolin Hfa] 2 puff INHALATION Q6H PRN PRN 01/02/14 Allopurinol [Zyloprim] 300 mg PO DAILY 09/23/17 Fluticasone 110 Mcg [Flovent 110 Mcg] 1 puff INHALATION BID 09/23/17 Aspirin [Aspirin, Baby] 81 mg PO DAILY 05/03/18 Cholecalciferol (Vitamin D3) [Vitamin D3] 1,000 unit PO DAILY 05/03/18 Ondansetron [Ondansetron Odt] 4 mg PO Q4H PRN PRN 05/03/18 Oxycodone HCl 5 mg PO PRN PRN 05/03/18 Pantoprazole Sodium [Protonix] 20 mg PO DAILY 05/03/18 Prednisone See Taper PO DAILY #30 tablet 05/05/18 levoFLOXacin tablet [Levaquin tablet] 750 mg PO DAILY@0600 #5 tablet 05/05/18 Following Prescrptions Were Given to Patient: levoFLOXacin tablet [Levaquin tablet] 750 mg PO DAILY@0600 #5 tablet Prednisone See Taper PO DAILY #30 tablet Primary Care Physician: Varun Wang MD [Primary Care Provider] - Please follow up with your Primary Care Physician in: 1 Week Please Follow Up With: Garland Dobbins MD When: As scheduled, 05/13/18 Please Follow Up With: Joe Aguillon DO When: As scheduled Disposition: Home Minutes spent on discharge:: 35 Patient Condition:: Stable Medical Necessity - Tobacco Use Smoking Status: Former smoker Tobacco Use: Cigarettes Meaningful Use Info Meaningful Use Diagnoses (Choose all that apply): None applicable
[2018-05-06 11:40] LABS: Pathologist Review Reviewed
--- NOTE | 2018-05-06 16:22 | CASEMGMT ---
JENNIFER BENSON Discharge F/U Phone Call LACE: 13 Strata: 4 Discharge date: 05/05/18 Call date: 05/06/18 Call time: [id number] Admission dx: Resp failure on chronic, HCAP, COPD exac Pt states has been doing 'pretty good' and 'doing fine' since discharge. Pt states no questions regarding discharge instructions or medications at this time. Pt states has f/u appt's scheduled and plans to keep them. Pt states no suggestions for [facility] at this time. Pt voices no further questions/concerns/needs at this time. [place] JENNIFER BENSON
== END 2018-05-05 13:14 | disposition home or self-care (01) | DRG 871 ==
LOC: ED 13:05 → PCU 15:56
PROVIDERS: Hospitalist; Nurse Practitioner Family; Admitting Provider Family Medicine; Emergency Provider Emergency Medicine; Family Provider Internal Medicine; PCP Internal Medicine; Referring Provider Family Medicine; Visit Provider Internal Medicine
DX: A41.9 Sepsis, unspecified organism (principal); E43 Unspecified severe protein-calorie malnutrition; J96.21 Acute and chronic respiratory failure with hypoxia; J15.6 Pneumonia due to other Gram-negative bacteria; Z68.1 Body mass index [BMI] 19.9 or less, adult; J44.1 Chronic obstructive pulmonary disease with (acute) exacerbation; J44.0 Chronic obstructive pulmonary disease with (acute) lower respiratory infection; Z92.3 Personal history of irradiation; Z85.21 Personal history of malignant neoplasm of larynx; Z87.891 Personal history of nicotine dependence; Y95 Nosocomial condition; D50.9 Iron deficiency anemia, unspecified; Z90.3 Acquired absence of stomach [part of]; Z87.11 Personal history of peptic ulcer disease; B97.81 Human metapneumovirus as the cause of diseases classified elsewhere; K22.2 Esophageal obstruction; M10.9 Gout, unspecified
CPT/HCPCS: 36415; 36600; 71045; 72170; 80048; 82803; 83605; 83735; 83880; 84100; 84484; 85025; 85027; 87040; 87449; 87633; 87804; 93005; 94640; 94667; 94668; 97162; 97165; 97802; 99285; J7030; J7050; A4216

== ENCOUNTER → 2018-08-01 08:41 | Outpatient (CLI) | payer OTHER, SELFPAY ==
[2018-05-13 11:08] VITALS: BMI 16.7
--- NOTE | 2018-08-01 10:01 | PFTCOMP_ITS ---
COMPLETE PULMONARY FUNCTION TEST INTERPRETATION Brief HPI: Patient is a 78 year old male, currently under the care of myself, who presents to [facility] for complete pulmonary function tests secondary to diagnosis of COPD. Respiratory therapist reports good effort and reproducible results. Interpretation: Forced expiration spirometry shows a moderately-severe large airways obstructive ventilatory defect with an FEV1 of 52% predicted. There is no significant bronchodilator response by strict ATS criteria. Spirograms are of good quality and plateau slowly, indicating slowly emptying areas of the lungs. The respiratory flow volume loop shows decreased expiratory flow rates at all lung volumes consistent with airway obstruction. Lung volumes by body plethysmography show a normal total lung capacity at 7.12 L, 107% predicted. All other lung volumes are within normal limits. Diffusion capacity by carbon monoxide is decreased at 45% predicted. The airway resistance is elevated. Compared to previous pulmonary function tests from 12/25/2017, there has been a significant improvement in FVC, FEV1 and air trapping. Impression: Irreversible moderately severe large airways obstructive ventilatory defect with a symmetric reduction diffusing capacity consistent with patient's diagnosis of COPD. There has been some improvement over the last 8 months.
== END ==
PROVIDERS: Family Provider Internal Medicine; PCP Internal Medicine; Referring Provider Internal Medicine Critical Care Medicine; Visit Provider Internal Medicine Critical Care Medicine
DX: J44.9 Chronic obstructive pulmonary disease, unspecified (principal); J96.11 Chronic respiratory failure with hypoxia; E44.0 Moderate protein-calorie malnutrition
CPT/HCPCS: 94060; 94726; 94729

== ENCOUNTER → 2018-08-02 08:47 | Outpatient (CLI) | payer OTHER, SELFPAY ==
[2018-05-13 11:08] VITALS: BMI 16.7
[2018-08-02 09:00] VITALS: PULSE 84; PULSE 85; PULSE 90; PULSE 93; PULSE 94; PULSE 99; O2SAT 85; O2SAT 88; O2SAT 91; O2SAT 92; O2SAT 93; O2SAT 97
--- NOTE | 2018-08-02 09:32 | CPS ---
pt arrived on room air. at minute 3 sats dropped down to 85%. placed him on 2l nc. Sats increased to 92%. on 2l nc.
--- NOTE | 2018-08-02 10:49 | PCM.PSN.6M ---
PSN 6 Minute Walk Test - 6 Minute Walk Test 6 Minute Walk Test: 6 Minute Walk Test PSN:6-Minute Walk Test Start: 08/02/18 09:20 Freq: Status: Active Protocol: RESP.6MINW Document 08/02/18 09:00 EW (Rec: 08/02/18 09:35 EW [id number]) 6 Minute Walk Test Date Performed 08/02/18 Time Performed 09:00 Height 6 ft Weight: 56.699 kg Weight in Pounds 125.[address]: Garland Dobbins Assistive device used: None Pre-test Oxygen Delivery Method Room Air Pulse Ox (%) 97 Pulse Rate (60-100 beats/min) 85 Dyspnea Ashley Scale (0-10) 0 Exertion Ashley Scale (6-20) 6 1st minute Oxygen Delivery Method Room Air Pulse Ox (%) 91 Pulse Rate (60-100 beats/min) 93 2nd minute Oxygen Delivery Method Room Air Pulse Ox (%) 88 Pulse Rate (60-100 beats/min) 93 3rd minute Oxygen Delivery Method Room Air Pulse Ox (%) 85 Pulse Rate (60-100 beats/min) 99 4th minute Oxygen Flow Rate (L/min) (L/min) 2 Oxygen Delivery Method Nasal Cannula Pulse Ox (%) 92 Pulse Rate (60-100 beats/min) 90 5th minute Oxygen Flow Rate (L/min) (L/min) 2 Oxygen Delivery Method Nasal Cannula Pulse Ox (%) 93 Pulse Rate (60-100 beats/min) 94 6th minute Oxygen Flow Rate (L/min) (L/min) 2 Oxygen Delivery Method Nasal Cannula Pulse Ox (%) 92 Pulse Rate (60-100 beats/min) 93 Post-test Oxygen Flow Rate (L/min) (L/min) 2 Oxygen Delivery Method Nasal Cannula Pulse Ox (%) 93 Pulse Rate (60-100 beats/min) 84 Dyspnea Ashley Scale (0-10) 2 Exertion Ashley Scale (6-20) 11 Full Laps Walked 15 Partial Lap, Number of Tiles Walked 0 Total Distance Walked (ft) 885 08/02/18 09:32 Cardiopulmonary Services by Maritza Chris pt arrived on room air. at minute 3 sats dropped down to 85%. placed him on 2l nc. Sats increased to 92%. on 2l nc. Initialized on 08/02/18 09:32 - END OF NOTE - Interpretation Interpretation: The patient was noted to be 97% on room air at rest, but desaturated to 85% in the third minute. Patient was placed on 2 L nasal cannula with improvement to 93%. Patient was able to finish the 6-minute walk with no additional oxygen. In total, patient traveled 885 feet. These findings are consistent with a pulmonary limitation exercise tolerance. - Recommendations Recommendations: No supplemental oxygen is indicated at rest, but 2 L nasal cannula should be used with any exertion.
== END ==
PROVIDERS: Family Provider Internal Medicine; PCP Internal Medicine; Referring Provider Internal Medicine Critical Care Medicine; Visit Provider Internal Medicine Critical Care Medicine
DX: J96.11 Chronic respiratory failure with hypoxia (principal); E44.0 Moderate protein-calorie malnutrition; J44.9 Chronic obstructive pulmonary disease, unspecified
CPT/HCPCS: 94618

== ENCOUNTER 2019-01-30 11:27 | Inpatient (IN) | payer OTHER, MEDICARE, SELFPAY ==
[2018-11-27 09:54] VITALS: BMI 16.2
--- NOTE | 2019-01-30 12:45 | NURSING ---
pt refusing Ensure, causes loose stools but will drink [place] Instant breakfast or sprinkle it over ice cream. Deposition Operator notified
[2019-01-30 12:46] VITALS: BMI 16.7
[2019-01-30 12:51] VITALS: BP 113/60; PULSE 97; RESP 18; TEMP 37.1; O2SAT 94
[2019-01-30 14:15] VITALS: BMI 16.7
--- NOTE | 2019-01-30 14:22 | CASEMGMT ---
Social Work Met with patient and for initial assessment. Given patient's medical diagnoses and symptoms, spoke with pt about Palliative Medicine. Explained the services of disease and symptom management and less hospital readmissions. and pt agreeable to talk with someone for possible admission. Referral made to [facility]. Will continue to follow.
[2019-01-30 15:09] VITALS: BP 120/64; PULSE 93; RESP 18; TEMP 36.8; O2SAT 95
[2019-01-30] MEDS: Acetaminophen 650 MG/20 ML UDC PO (20:24)
[2019-01-30] MEDS: MethylPREDNISolone DosePak 4 MG BOX PO (20:26)
--- NOTE | 2019-01-30 20:30 | HP.PCM_ITS ---
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 (3) Tracheostomy present Status: Acute (4) Tobacco abuse Status: Chronic (5) GERD (gastroesophageal reflux disease) Status: Chronic (6) Throat cancer Status: Chronic (7) Vocal cord cancer Status: Chronic (8) Esophageal stricture Status: Chronic (9) Hypothyroidism Status: Chronic (10) Polycythemia Status: Chronic (11) Gout Status: Chronic Comment: gouty mass dorsal radial aspect PIP joint left index finger (12) Dysphagia Status: Chronic Qualifiers: (13) COPD (chronic obstructive pulmonary disease) Status: Chronic Qualifiers: Comment: FEV1 52% History of Present Illness Date of Admission: 01/30/19 Chief Complaint: Here for rehabilitation, strengthening, prior to discharge home with . The patient is a 79 year old Male with below past medical history significant for squamous cell carcinoma of floor of mouth with following at [facility]. Operations during hospitalization: 01/06/2019 1. Composite resection of floor of mouth, ventral tongue, complex. 2. Marginal mandibulectomy. 3. Extended left selective neck dissection level 1 through 4 complex. 4. Right selective neck dissection 1 through 4, complex. 5. Lysis dissection of carotid artery left side for microvascular reconstruction. 6. Tracheostomy. 7. Left fasciocutaneous ulnar artery panel fitter free flap for ventral tongue/floor of mouth reconstruction. 8. Lysis of adhesions over left external carotid artery branches and internal jugular vein. 9. Split thickness skin graft of left thigh to left forearm (9 x 5CM) 10. Local tissue rearrangement and bilateral advancement of flap of the forearm. 11. Application of negative pressure wound vac therapy. 01/12/2019 1. Left neck exploration. Hospital Course: The patient was taken to the operative room for the above listed procedure. He underwent an uncomplicated surgery and was admitted directly to the G81 step- down unit for post operative management of blood pressure, close monitoring of the flap and airway management. The flap was monitored routinely and appeared healthy with good doppler signals. On POD 11, flap was noted to be turgid with marked capillary refill and reddish hue with brisk, bleeding suggestive of congestion. Due to these findings, he was taken back to the OR urgently for exploration of the neck. Sutures were opened up around the edges and pedicle course was adjusted, and congestion resolved. Postoperatively, he was unable to be weaned off of ventilator support and required ICU admission for management. There was also concern for aspiration pneumonia and pulmonary embolism due to persistent sinus tachycardia and hypoxia. Hospital medicine was consulted, and a CTPE was performed on 01/10 which ruled out PE. Hypoxia was likely related to known history of COPD. The drains were monitored and pulled when the output was < 30cc/24 hours. The PHYSICIAN/ALLERGY/IMMUNOLOGY was discontinued and the patient was transitioned to roxicodone/tylenol with adequate pain control. Hickman was removed on POD 6, passed due to void. OT was consulted and skilled patient for hoe of SNF placement due to medical needs on 01/17/2019. Case management was involved in the discharge planning of this patient from the beginning. Tube feeds were started on POD 1 at trickle and were advanced slowly to goal, and then to bolus feeds. Patient continued to recover slowly. Patient was ready for discharge to SNF on POD #23. 01/30/2019 Admit to TCU with debility, here for rehabilitation, strengthening, prior to discharge home with . 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) Esophageal stricture (Chronic) Hypothyroidism (Chronic) Polycythemia (Chronic) Stage 2 moderate COPD by GOLD classification (Chronic) FEV 1 52% correction current use of anticoagulant (Chronic) Gout (Chronic) gouty mass dorsal radial aspect PIP joint left index finger Chronic respiratory failure with hypoxia (Chronic) Iron deficiency anemia (Chronic) Hyperuricemia (Chronic) Former smoker (Chronic) Benign esophageal stricture (Chronic) Malnutrition of moderate degree (Chronic) Leukocytosis (Chronic) Dysphagia (Chronic) Hypersomnia (Chronic) COPD (chronic obstructive pulmonary disease) (Chronic) FEV1 52% History of peptic ulcer disease (Chronic) Medical History: Medical History (Last Reviewed 11/27/18 @ 09:51 by Dary Thomas) COPD (chronic obstructive pulmonary disease) (Chronic) J44.9 FEV1 52% History of peptic ulcer disease (Chronic) Z87.11 Adenomatous colon polyp D12.6 Gout M10.9 History of cataract Z86.69 Hypoxemia R09.02 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 Pancreatitis K85.90 Polycythemia D75.1 Protein calorie malnutrition E46 Thrombocytosis D47.3 Chronic back pain M54.9, G89.29 Iron deficiency anemia D50.9 Stage 2 moderate COPD by GOLD classification J44.9 Tobacco use Z72.0 Elevated LFTs (Resolved) R79.89 Pneumonia (Resolved) J18.9 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 Allergies doxycycline Adverse Reaction (Verified 11/27/18 09:50) PANCREATITIS Home Medications: Ambulatory Orders Medication Instructions Recorded Albuterol Inhaler [Ventolin Hfa] 2 puff INHALATION Q6H PRN PRN 01/02/14 Allopurinol [Zyloprim] 300 mg PO DAILY 09/23/17 Aspirin [Aspirin, Baby] 81 mg PO DAILY 05/03/18 Cholecalciferol (Vitamin D3) 1,000 unit PO DAILY 05/03/18 [Vitamin D3] Ondansetron [Ondansetron Odt] 4 mg PO Q8H PRN PRN 05/03/18 Albuterol Aerosols [Ventolin 2.5 mg INHALATION Q2H PRN PRN 01/30/19 Aerosols] Chlorhexidine [(None)] 15 ml PO Q6H PRN 01/30/19 Ciprofloxacin [Cipro] 500 mg PO BID 01/30/19 Fluticasone 110 Mcg [Flovent (SP)] 1 puff INHALATION BID 01/30/19 Hydroxyurea [Hydrea] 500 mg PO DAILY 01/30/19 Levothyroxine [Synthroid] 50 mcg PO DAILY 01/30/19 Tiotropium Br/Olodaterol HCl 2 puff INHALATION DAILY 01/30/19 [Stiolto Respimat] Surgical History: Surgical History (Last Reviewed 11/27/18 @ 09:51 by Dary Thomas) Esophageal dilatation K22.8 2003 Floor of mouth resection, sialadochoplasty 2017 H/O colonoscopy Z98.890 2015, 2012, 2003 History of esophagogastroduodenoscopy (EGD) Z98.890 2012 2003 History of laryngoscopy Z98.890 2013 S/P partial gastrectomy Z90.3 1970 Surgical History: - - dysplasia of tongue, ulcer surgery with some removal of stomach? vocal cord lesion. Psychiatric History: No pertinent psych hx Lives: Spouse/ Significant Other Smoking Status: Former smoker Tobacco Use: Non-smoker Alcohol: Occasional Drugs: None - *Family History Maternal Family History: Family History (Last Reviewed 11/27/18 @ 09:51 by Dary Thomas) Brother Brain cancer Bone cancer Brain tumor Father CAD (coronary artery disease) Heart disease History Items: - - No cardiac hx Paternal Family History: Family History (Last Reviewed 11/27/18 @ 09:51 by Dary Thomas) Brother Brain cancer Bone cancer Brain tumor Father CAD (coronary artery disease) Heart disease History Items: No pertinent history Review of Systems Constitutional: Denies: Chills, Fever, Weight Change HEENT: Denies: Head Aches, Sinus Congestion, Sinus Drainage Cardiovascular: Denies: Chest Pain, Palpitations Respiratory: Denies: Cough, Shortness of breath at rest, Sputum production Gastrointestinal: Denies: Abdominal Pain, Nausea, Vomiting Genitourinary: Denies: Dysuria Musculoskeletal: Denies: Joint Pain, Joint Tenderness Skin: Denies: Rash, Wounds Neurological: Denies: Numbness, Tingling, Focal weakness Psychiatric: Denies: Anxiety, Depression, Homicidal Ideations, Suicidal Ideations Hematologic/ Lymphatic: Denies: Easy Bruising, Easy Bleeding VTE Information - Inpt Only VTE Present on Admission: No VTE Mechan Device Prophylaxis: Knee High NAZARIO Hose VTE Pharm Prophylaxis ordered?: Yes Patient Problems: Active and Suspected Problems (Last Reviewed 11/27/18 @ 09:51 by Dary Thomas) Debility (Acute) Tracheostomy present (Acute) - Physical Exam General: Alert, Oriented x3, Cooperative HEENT: Atraumatic, PERRLA, EOMI, Normocephalic Neck: Supple, No JVD, Negative Carotid Bruits, - - Tracheostomy. Lungs: Clear to auscultation, Normal air movement Cardiovascular: Regular rate, No murmurs Abdomen: Bowel Sounds Present, Soft, Non Tender Extremities: No edema, Capillary Refill Less than 3 Seconds, Tenderness - Left knee., - - Left knee warm to touch. Skin: No rashes, No breakdown Musculoskeletal: No Tenderness to Palpation of Joints or Extremities Neurological: Cranial nerves II-XII grossly intact Psych/Mental Status: Normal Affect, Appropriate Vital Signs Temp Pulse Resp BP Pulse Ox 98.3 F 93 18 120/64 95 01/30/19 15:09 01/30/19 15:09 01/30/19 15:09 01/30/19 15:09 01/30/19 15:09 Oxygen Flow Rate (L/min) 3 Oxygen Delivery Method Room Air Weight: 54.023 kg Body Mass Index (BMI) 16.7 Intake and Output for Last 24 Hours 01/28/19 01/29/19 01/30/19 23:59 23:59 23:59 Intake Total 120 / 120 Balance 120 / 120 Assessment/Plan All Active Problems (Last Reviewed 11/27/18 @ 09:51 by Dary Thomas) Debility (Acute) Tracheostomy present (Acute) Sepsis (Acute) JULIANA (acute kidney injury) (Resolved) Elevated LFTs (Resolved) Foreign body in esophagus (Resolved) Neoplasm of unspecified behavior of bone, soft tissue, and skin (Resolved) Osteomyelitis of finger of left hand (Resolved) Pneumonia (Resolved) 79 year old male with below past medical history hospitalized for 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 * Debility - PT/OT. * Pain - Tylenol liquid 650MG Q4H PRN. * Bowel - Miralax 17GM daily, Dulcolax 10MG daily PRN. * Pneumonia vaccination - Administer Prevnar 13 and/or Pneumovax 23 as necessary. * DVT prophylaxis - Lovenox 30MG SC daily. * COPD - Flovent 100MG 1 puff BID, Utibron 1 puff BID, Albuterol 2.5MG nebulized Q2H, Albuterol MDI 2 puffs Q6H PRN. * Gout - Allopurinol 300MG daily, Medrol dose pack for active flare left knee. * CV prophylaxis - Aspirin 81MG daily. * Sore throat - Chlorhexidine 15ML Q6H PRN. * Vitamin D deficiency - D3 1000IU daily. * Polycythemia - Hydroxyurea 500MG daily. * Hypothyroidism - Levothyroxine 50MCG daily. * Nausea - Zofran ODT 4MG Q8H PRN.
[2019-01-31] MEDS: Polyethylene Glycol 3350 17 GM PACKET PO (05:39)
[2019-01-31] MEDS: Allopurinol 300 MG Tablet PO (05:40)
[2019-01-31] MEDS: Levothyroxine 50 MCG Tablet PO (05:40)
[2019-01-31] MEDS: Enoxaparin 30 MG/0.3 ML Syringe SC (05:42)
[2019-01-31 05:56] LABS: Absolute Lymphocyte Count 0.28 X10^3/uL (0.83-4.51); Absolute Neutrophil Count 9.8 X10^3/uL (2.0-7.7); Basophil# 0.12 X10^3/uL; Basophil% 1.1 % (0-1); Eosinophil# 0.01 X10^3/uL; Eosinophils% 0.1 % (0-5); Hematocrit 40.8 % (40-54); Hemoglobin 12.4 g/dL (13.0-16.5); Lymphocyte # 0.28 X10^3/ul (4.0); Lymphocyte % 2.7 % (19-41); Mean Corp Hgb Conc 30.4 g/dL (32-36); Mean Corpuscular Hgb 26.4 pg (27.0-32.0); Mean Corpuscular Volume 86.8 fL (80-94); Mean Platelet Vol. 9.5 fl (6.2-12.0); Monocyte# 0.11 X10^3/uL; NRBC Flagged by Analyzer 0 % (0-5); Neutrophil % 92.9 % (47-70); POSITIVE DIFFERENTIAL YES; POSITIVE MORPHOLOGY YES; Platelet Count 538 K/mm3 (150-450); RBC Distribution Width CV 20.5 % (11.6-14.6); RBC Distribution Width SD 63.2 fl (35.1-43.9); White Blood Count 10.6 K/mm3 (4.4-11.0)
[2019-01-31 05:57] LABS: Differential Indicated SCAN CRITERIA MET
[2019-01-31 06:20] LABS: Anion Gap 8 (5-15); BUN 11 mg/dL (7-18); BUN/Creat Ratio 14.3 RATIO (10-20); Calcium,Total 8.6 mg/dL (8.5-10.1); Chloride 108 mmol/L (98-107); Creatinine, Serum 0.77 mg/dL (0.70-1.30); EST Glomerular Filtration Rate 104 mL/min (>60); Est Glom Filt Rate - Afr Amer 126 mL/min (>60); Estimated Creatinine Clearance 45.77 ml/min; Glucose 122 mg/dL (74-106); Potassium 4.2 mmol/L (3.5-5.1); Sodium Level 144 mmol/L (136-145)
[2019-01-31 06:28] LABS: Anisocytosis 1+; Differential Comment SCANNED
--- NOTE | 2019-01-31 08:00 | PHA.CONS_ITS ---
<Micheal Adams D - Last Filed: 01/31/19 08:00> Progress Note - Pharmacy Subjective: [] Objective: Allergies doxycycline Adverse Reaction (Verified 11/27/18 09:50) PANCREATITIS Current Medications Generic Name Dose Route Start Last Admin Trade Name Freq PRN Reason Stop Dose Admin Acetaminophen 650 mg 01/30/19 18:06 01/30/19 20:24 Tylenol Liquid PO 650 mg Q4H PRN PRN Administration Pain Score 1-02/06 Albuterol Sulfate 2.5 mg 01/30/19 12:00 Ventolin Aerosols INHALATION Q2H PRN PRN sob/wheezing Albuterol Sulfate 2 puff 01/30/19 12:00 Ventolin Hfa (Sp) INHALATION Q6H PRN PRN SHORTNESS OF BREATH Allopurinol 300 mg 01/31/19 06:00 01/31/19 05:40 Zyloprim PO 300 mg DAILY INDU Administration Aspirin 81 mg 01/31/19 08:00 Aspirin, Baby PO DAILYCM INDU Bisacodyl 10 mg 01/30/19 20:58 Dulcolax PO DAILY PRN Constipation Chlorhexidine Gluconate 15 ml 01/30/19 12:00 PO Q6H PRN oral discomfort Cholecalciferol 1,000 unit 01/31/19 06:00 01/31/19 05:40 Vitamin D PO 1,000 unit DAILY INDU Administration Enoxaparin Sodium 30 mg 01/31/19 06:00 01/31/19 05:42 Lovenox SC 30 mg DAILY@0600 INDU Administration Fluticasone Propionate 1 puff 01/30/19 20:00 01/31/19 05:46 Flovent Diskus 100 Mcg INHALATION 1 puff [facility] Administration Glycopyrrolate/Indacaterol 1 puff 01/30/19 20:00 01/31/19 05:44 Utibron Neohaler 27.5-15.6 Mcg IH 1 puff 0600 [facility] Administration Hydroxyurea 0.5 gm 01/31/19 06:00 01/31/19 05:38 Hydroxyurea MC 0.5 gm DAILY INDU Administration Levothyroxine Sodium 50 mcg 01/31/19 06:00 01/31/19 05:40 Synthroid PO 50 mcg DAILY INDU Administration Methylprednisolone 4 mg 01/30/19 22:00 01/30/19 20:26 Medrol Dosepak PO 02/04/19 08:59 24 mg 0800,1200,1700 INDU Administration Taper Ondansetron HCl 4 mg 01/30/19 12:00 Zofran Odt PO Q8H PRN PRN NAUSEA Polyethylene Glycol 17 gm 01/31/19 06:00 01/31/19 05:39 Miralax PO 17 gm DAILY INDU Administration Tuberculin PPD 5 tu 01/31/19 10:00 Tubersol, Aplisol, Ppd ID 01/31/19 10:01 X1 ONE Tuberculin PPD 5 tu 02/07/19 10:00 Tubersol, Aplisol, Ppd ID 02/07/19 10:01 X1 ONE Problem List (Last Reviewed 11/27/18 @ 09:51 by Dary Thomas) Debility (Acute) 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) Tobacco abuse (Chronic) GERD (gastroesophageal reflux disease) (Chronic) 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) Esophageal stricture (Chronic) Hypothyroidism (Chronic) Polycythemia (Chronic) Vital Signs Temp Pulse Resp BP Pulse Ox 98.3 F 93 18 120/64 95 01/30/19 15:09 01/30/19 15:09 01/30/19 15:09 01/30/19 15:09 01/30/19 15:09 Oxygen Flow Rate (L/min) 3 Oxygen Delivery Method Room Air Weight: 54.023 kg Body Mass Index (BMI) 16.7 Sodium 144 mmol/L (136-145) 01/31/19 05:10 Potassium 4.2 mmol/L (3.5-5.1) 01/31/19 05:10 Chloride 108 mmol/L (98-107) H 01/31/19 05:10 Carbon Dioxide 28.0 mmol/L (21.0-32.0) 01/31/19 05:10 Anion Gap 8 (5-15) 01/31/19 05:10 BUN 11 mg/dL (7-18) 01/31/19 05:10 Creatinine 0.77 mg/dL (0.70-1.30) 01/31/19 05:10 Est GFR (MDRD) Af Amer 126 mL/min (>60) 01/31/19 05:10 Est GFR (MDRD) Non-Af 104 mL/min (>60) 01/31/19 05:10 BUN/Creatinine Ratio 14.3 RATIO (10-20) 01/31/19 05:10 Glucose 122 mg/dL (74-106) H 01/31/19 05:10 Assessment/Plan: 1) Pain APAP prn for any pain score. Continue to monitor prn medication use, daily pain scores. 2) Pulm Flovent inh, Utibron inh, albuterol inhaler and aerosols available for respiratory sxs. Continue to monitor prn medication use, for sob, wheezing. 3) Hypothyroidism Levothyroxine. Continue to monitor s/s hyper/hypothyroidism. 4) DVT PPx Enoxaparin. Continue to monitor for bleeding/clot. 5) Gout Allopurinol, methylprednisolone dose pack. Continue to monitor s/s gout. 6) Polycythemia Hydroxyurea. Continue to monitor clinically. 7) GI Ondansetron prn. Continue to monitor prn medication use, s/s GI distress. Psychotropic Medications: None Unnecessary Medications: None Bowel Regimen: 8) PEG, prn bisacodyl. Continue to monitor prn medication use, for constipation/diarrhea. Date of Note:: 01/31/19 - Provider Comments Provider responsibility: Provider responsible to enter orders to implement recommendations <Freddy Quinn Chi - Last Filed: 01/31/19 08:08> Progress Note - Pharmacy Subjective: [] Objective: Allergies doxycycline Adverse Reaction (Verified 11/27/18 09:50) PANCREATITIS Current Medications Generic Name Dose Route Start Last Admin Trade Name Freq PRN Reason Stop Dose Admin Acetaminophen 650 mg 01/30/19 18:06 01/30/19 20:24 Tylenol Liquid PO 650 mg Q4H PRN PRN Administration Pain Score 1-10 Albuterol Sulfate 2.5 mg 01/30/19 12:00 Ventolin Aerosols INHALATION Q2H PRN PRN sob/wheezing Albuterol Sulfate 2 puff 01/30/19 12:00 Ventolin Hfa (Sp) INHALATION Q6H PRN PRN SHORTNESS OF BREATH Allopurinol 300 mg 01/31/19 06:00 01/31/19 05:40 Zyloprim PO 300 mg DAILY INDU Administration Aspirin 81 mg 01/31/19 08:00 Aspirin, Baby PO DAILYCM INDU Bisacodyl 10 mg 01/30/19 20:58 Dulcolax PO DAILY PRN Constipation Chlorhexidine Gluconate 15 ml 01/30/19 12:00 PO Q6H PRN oral discomfort Cholecalciferol 1,000 unit 01/31/19 06:00 01/31/19 05:40 Vitamin D PO 1,000 unit DAILY INDU Administration Enoxaparin Sodium 30 mg 01/31/19 06:00 01/31/19 05:42 Lovenox SC 30 mg DAILY@0600 INDU Administration Fluticasone Propionate 1 puff 01/30/19 20:00 01/31/19 05:46 Flovent Diskus 100 Mcg INHALATION 1 puff 06 INDU Administration Glycopyrrolate/Indacaterol 1 puff 01/30/19 20:00 01/31/19 05:44 Utibron Neohaler 27.5-15.6 Mcg IH 1 puff 06 INDU Administration Hydroxyurea 0.5 gm 01/31/19 06:00 01/31/19 05:38 Hydroxyurea MC 0.5 gm DAILY INDU Administration Levothyroxine Sodium 50 mcg 01/31/19 06:00 01/31/19 05:40 Synthroid PO 50 mcg DAILY INDU Administration Methylprednisolone 4 mg 01/30/19 22:00 01/30/19 20:26 Medrol Dosepak PO 02/04/19 08:59 24 mg 0800,1200,1700 INDU Administration Taper Ondansetron HCl 4 mg 01/30/19 12:00 Zofran Odt PO Q8H PRN PRN NAUSEA Polyethylene Glycol 17 gm 01/31/19 06:00 01/31/19 05:39 Miralax PO 17 gm DAILY INDU Administration Tuberculin PPD 5 tu 01/31/19 10:00 Tubersol, Aplisol, Ppd ID 01/31/19 10:01 X1 ONE Tuberculin PPD 5 tu 02/07/19 10:00 Tubersol, Aplisol, Ppd ID 02/07/19 10:01 X1 ONE Problem List (Last Reviewed 11/27/18 @ 09:51 by Dary Thomas) Debility (Acute) 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) Tobacco abuse (Chronic) GERD (gastroesophageal reflux disease) (Chronic) 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) Esophageal stricture (Chronic) Hypothyroidism (Chronic) Polycythemia (Chronic) Vital Signs Temp Pulse Resp BP Pulse Ox 98.3 F 93 18 120/64 95 01/30/19 15:09 01/30/19 15:09 01/30/19 15:09 01/30/19 15:09 01/30/19 15:09 Oxygen Flow Rate (L/min) 3 Oxygen Delivery Method Room Air Weight: 54.023 kg Body Mass Index (BMI) 16.7 Sodium 144 mmol/L (136-145) 01/31/19 05:10 Potassium 4.2 mmol/L (3.5-5.1) 01/31/19 05:10 Chloride 108 mmol/L (98-107) H 01/31/19 05:10 Carbon Dioxide 28.0 mmol/L (21.0-32.0) 01/31/19 05:10 Anion Gap 8 (5-15) 01/31/19 05:10 BUN 11 mg/dL (7-18) 01/31/19 05:10 Creatinine 0.77 mg/dL (0.70-1.30) 01/31/19 05:10 Est GFR (MDRD) Af Amer 126 mL/min (>60) 01/31/19 05:10 Est GFR (MDRD) Non-Af 104 mL/min (>60) 01/31/19 05:10 BUN/Creatinine Ratio 14.3 RATIO (10-20) 01/31/19 05:10 Glucose 122 mg/dL (74-106) H 01/31/19 05:10 Assessment/Plan: Psychotropic Medications: Unnecessary Medications: Bowel Regimen: - Provider Comments Provider responsibility: Provider responsible to enter orders to implement recommendations Provider Comments to Recommendations by Pharmacy: Agree
[2019-01-31 08:35] VITALS: O2SAT 93
[2019-01-31] MEDS: Aspirin 81 MG TAB.CHEW PO (08:39)
[2019-01-31] MEDS: MethylPREDNISolone DosePak 4 MG BOX PO ×4 (08:39→22:28)
[2019-01-31 10:03] VITALS: PULSE 110; RESP 18; O2SAT 95
[2019-01-31] MEDS: Albuterol 2.5 MG/3 ML VIAL.NEB. INHALATION (10:03)
--- NOTE | 2019-01-31 14:16 | NURSING ---
wound photo: donor site left thigh
--- NOTE | 2019-01-31 14:16 | NURSING ---
wound photo: left forearm skin graft
[2019-01-31] MEDS: Tuberculin,Purif.prot.deriv. 50 TU/ML Vial 5 ML ID (14:45)
[2019-01-31 16:00] VITALS: BP 113/70; PULSE 100; RESP 17; TEMP 37.1; O2SAT 98
[2019-02-01] MEDS: Enoxaparin 30 MG/0.3 ML Syringe SC (06:07)
[2019-02-01] MEDS: Allopurinol 300 MG Tablet PO (06:08)
[2019-02-01] MEDS: Levothyroxine 50 MCG Tablet PO (06:08)
[2019-02-01] MEDS: MethylPREDNISolone DosePak 4 MG BOX PO ×4 (10:34→21:54)
[2019-02-01] MEDS: Aspirin 81 MG TAB.CHEW PO (10:34)
[2019-02-01 11:04] VITALS: O2SAT 3
[2019-02-01 16:00] VITALS: BP 140/71; PULSE 81; RESP 24; TEMP 37; O2SAT 100
[2019-02-01] MEDS: Ondansetron ODT 4 MG Tablet PO (18:24)
[2019-02-02] MEDS: Levothyroxine 50 MCG Tablet PO (05:53)
[2019-02-02] MEDS: Allopurinol 300 MG Tablet PO (05:53)
[2019-02-02] MEDS: Enoxaparin 30 MG/0.3 ML Syringe SC (05:53)
[2019-02-02] MEDS: Aspirin 81 MG TAB.CHEW PO (09:12)
[2019-02-02] MEDS: MethylPREDNISolone DosePak 4 MG BOX PO ×3 (09:12→20:02)
[2019-02-02] MEDS: Acetaminophen 650 MG/20 ML UDC PO ×2 (09:58→20:01)
[2019-02-02 15:27] VITALS: BP 111/70; PULSE 81; RESP 23; TEMP 36.7; O2SAT 98
[2019-02-03] MEDS: Allopurinol 300 MG Tablet PO (05:51)
[2019-02-03] MEDS: Levothyroxine 50 MCG Tablet PO (05:51)
[2019-02-03] MEDS: Enoxaparin 30 MG/0.3 ML Syringe SC (05:56)
[2019-02-03] MEDS: Acetaminophen 650 MG/20 ML UDC PO ×2 (06:00→21:19)
[2019-02-03 07:00] VITALS: O2SAT 98
[2019-02-03] MEDS: MethylPREDNISolone DosePak 4 MG BOX PO ×2 (08:10→19:53)
[2019-02-03] MEDS: Aspirin 81 MG TAB.CHEW PO (08:10)
[2019-02-03] MEDS: Ondansetron ODT 4 MG Tablet PO ×2 (08:29→18:33)
--- NOTE | 2019-02-03 12:55 | CASEMGMT ---
Social Work [facility] scheduled meeting with pt today at 10 am. At visit, pt denied services and was at another appointment. Will continue to follow if pt would like referral in the future. JOHN VegaW
[2019-02-03 15:15] VITALS: BP 109/52; PULSE 96; RESP 21; TEMP 37.4; O2SAT 97
[2019-02-03 17:03] VITALS: TEMP 36.8
[2019-02-03] MEDS: Menthol/Lanolin/Calamine/Znox 113 GM Tube 1 APPLIC TOPICAL (20:05)
[2019-02-03] MEDS: Chlorhexidine 480 ML 15 ML PO (21:48)
[2019-02-04] MEDS: Levothyroxine 50 MCG Tablet PO (05:48)
[2019-02-04] MEDS: Allopurinol 300 MG Tablet PO (05:48)
[2019-02-04] MEDS: Enoxaparin 30 MG/0.3 ML Syringe SC (05:58)
[2019-02-04] MEDS: Menthol/Lanolin/Calamine/Znox 113 GM Tube 1 APPLIC TOPICAL ×3 (05:58→20:39)
[2019-02-04] MEDS: Polyethylene Glycol 3350 17 GM PACKET PO (06:36)
[2019-02-04 07:22] VITALS: O2SAT 98
[2019-02-04] MEDS: MethylPREDNISolone DosePak 4 MG BOX PO (09:40)
[2019-02-04] MEDS: Aspirin 81 MG TAB.CHEW PO (09:40)
[2019-02-04] MEDS: Bisacodyl 5 MG Tablet 10 MG PO (12:45)
[2019-02-04 16:00] VITALS: BP 95/57; PULSE 86; RESP 18; TEMP 36.5; O2SAT 96
[2019-02-05] MEDS: Levothyroxine 50 MCG Tablet PO (06:15)
[2019-02-05] MEDS: Allopurinol 300 MG Tablet PO (06:15)
[2019-02-05] MEDS: Enoxaparin 30 MG/0.3 ML Syringe SC (06:22)
[2019-02-05] MEDS: Menthol/Lanolin/Calamine/Znox 113 GM Tube 1 APPLIC TOPICAL ×3 (06:27→21:14)
[2019-02-05] MEDS: Aspirin 81 MG TAB.CHEW PO (10:07)
--- NOTE | 2019-02-05 11:27 | CASEMGMT ---
Social Work IDT met with patient, , brother and sister in law for care plan meeting. Discussed patient's progress in therapy. Pt is set up to SBA for all ADLs. Walking 185 ft with FWW and completing 5 steps SBA. Pt is on puree, thin diet with plan on MBS study 02/06. Pt has lost weight and is started on fortified food and appetite stimulant. Pt still denying Palliative Medicine. Pt had oxygen at home prior but only used at night. O2 provided through [facility]. Contacted [facility] to notify of admission and need for increase in O2 at home. Explained insurance coverage and NRD 02/05 and continued stay is not guaranteed. Will continue to follow. Carmen Danielson, [employer]
[2019-02-05 16:00] VITALS: BP 110/59; PULSE 87; RESP 20; TEMP 36.4; O2SAT 96
[2019-02-05] MEDS: Mirtazapine 15 MG Tablet 7.5 MG PO (21:18)
[2019-02-06] MEDS: Enoxaparin 30 MG/0.3 ML Syringe SC (05:33)
[2019-02-06] MEDS: Levothyroxine 50 MCG Tablet PO (05:34)
[2019-02-06] MEDS: Allopurinol 300 MG Tablet PO (05:34)
[2019-02-06] MEDS: Menthol/Lanolin/Calamine/Znox 113 GM Tube 1 APPLIC TOPICAL ×3 (05:35→20:03)
[2019-02-06 07:16] VITALS: O2SAT 97
[2019-02-06] MEDS: Aspirin 81 MG TAB.CHEW PO (08:00)
--- NOTE | 2019-02-06 08:30 | NURSING ---
Pt departing from unit to Dr Aguillon office for appt. Drsg changed to trach site. cleansed w/NS then applied 4x4 gauze and tape. trach stoma remains open dime size. some redness peristomal area noted from tape. will continue to monitor.
--- NOTE | 2019-02-06 10:43 | NURSING ---
Off unit at this time at an appointment with Dr Aguillon.
--- NOTE | 2019-02-06 11:15 | NURSING ---
pt returned from Dr Aguillon appt w/orders to start nystatin S/S 5 cc 4x day.
--- NOTE | 2019-02-06 11:49 | CASEMGMT ---
Insurance: Continued stay review faxed to [facility] on 02/05/19. auth # [id number]
[2019-02-06] MEDS: NYSTATIN 500,000 UNIT/5 ML UDC 500000 UNIT PO ×3 (12:25→20:47)
[2019-02-06 15:58] VITALS: BP 124/42; PULSE 104; RESP 20; TEMP 37; O2SAT 94
--- NOTE | 2019-02-06 18:12 | NURSING ---
Assisted back to room. Dressing to trach site changed at this time. Area around incision site red and excoriated. Area cleansed and new dressing applied, this nurse careful not to use tape to area.
[2019-02-06] MEDS: Mirtazapine 15 MG Tablet 7.5 MG PO (20:47)
[2019-02-07 05:32] LABS: Absolute Lymphocyte Count 0.63 X10^3/uL (0.83-4.51); Absolute Neutrophil Count 7.5 X10^3/uL (2.0-7.7); Basophil# 0.12 X10^3/uL; Basophil% 1.3 % (0-1); Eosinophil# 0.23 X10^3/uL; Eosinophils% 2.5 % (0-5); Hematocrit 39.6 % (40-54); Hemoglobin 12.1 g/dL (13.0-16.5); Lymphocyte # 0.63 X10^3/ul (4.0); Mean Corp Hgb Conc 30.6 g/dL (32-36); Mean Corpuscular Hgb 26.8 pg (27.0-32.0); Mean Corpuscular Volume 87.6 fL (80-94); Mean Platelet Vol. 11.3 fl (6.2-12.0); Monocyte# 0.49 X10^3/uL; Monocyte% 5.4 % (0-10); NRBC Flagged by Analyzer 0 % (0-5); Neutrophil # 7.48 X10^3/uL (2.7-7.7); Neutrophil % 82.8 % (47-70); POSITIVE MORPHOLOGY YES; Platelet Count 355 K/mm3 (150-450); RBC Distribution Width CV 21.6 % (11.6-14.6); RBC Distribution Width SD 64.7 fl (35.1-43.9); Red Blood Count 4.52 M/mm3 (4.6-6.2)
[2019-02-07] MEDS: Levothyroxine 50 MCG Tablet PO (05:42)
[2019-02-07] MEDS: NYSTATIN 500,000 UNIT/5 ML UDC 500000 UNIT PO ×4 (05:42→20:46)
[2019-02-07] MEDS: Enoxaparin 30 MG/0.3 ML Syringe SC (05:42)
[2019-02-07] MEDS: Allopurinol 300 MG Tablet PO (05:42)
[2019-02-07] MEDS: Menthol/Lanolin/Calamine/Znox 113 GM Tube 1 APPLIC TOPICAL ×3 (05:49→20:52)
[2019-02-07 05:50] LABS: Anion Gap 5 (5-15); BUN 16 mg/dL (7-18); BUN/Creat Ratio 20.6 RATIO (10-20); Calcium,Total 8.7 mg/dL (8.5-10.1); Chloride 108 mmol/L (98-107); Creatinine, Serum 0.78 mg/dL (0.70-1.30); Differential Indicated SCAN CRITERIA MET; EST Glomerular Filtration Rate 103 mL/min (>60); Est Glom Filt Rate - Afr Amer 124 mL/min (>60); Estimated Creatinine Clearance 42.87 ml/min; Glucose 83 mg/dL (74-106); Potassium 3.7 mmol/L (3.5-5.1); Sodium Level 145 mmol/L (136-145)
[2019-02-07 06:26] LABS: Anisocytosis 1+; Differential Comment SCANNED
--- NOTE | 2019-02-07 06:53 | MDS.RN ---
Pain interview for malissa 02/06/19 was completed on 02/06/19
[2019-02-07] MEDS: Aspirin 81 MG TAB.CHEW PO (08:46)
[2019-02-07] MEDS: Tuberculin,Purif.prot.deriv. 50 TU/ML Vial 5 ML ID (12:28)
--- NOTE | 2019-02-07 13:00 | SP.MBSS_ITS ---
PRIMARY / SECONDARY DIAGNOSIS: dysphagia (R13.12) REFERRING PHYSICIAN: Dr. Freddy Quinn MD CURRENT DIET: pureed textures, thin liquids DENTITION: edentulous MENTAL STATUS: sufficient for participation. 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 The Patient further reports prior intervention cycles targeting oropharyngeal cancer necessitating irradiation of the oropharynx approximately 5 years prior, with what sounds like a 6 week cycle including 39 fractions, no further details are available. 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, complex composite resection of floor of mouth and ventral tongue, complex extended left selective neck dissection (level 1- 4) and right selective neck dissection (level 1-4), and left fasciocutaneous ulnar artery professor of literacy free flap to the ventral tongue / floor of mouth reconstruction, status post tracheostomy placement (decannulated 9 days prior); status post floor of mouth resection / sialadochoplasty (2016), prior vocal fold cancer, esophageal strictures status post esophageal dilatation (2003), gastroesophageal reflux disease, status post partial gastrectomy (2017), chronic obstructive pulmonary disease (GOLD stage II), chronic respiratory failure with hypoxia, chronic tobacco abuse, moderate malnutrition / protein calorie malnutrition, longterm use of anticoagulants, iron deficiency anemia, polycythemia, hypothyroidism, hypersomnia, peptic ulcer disease, PREVIOUS MODIFIED BARIUM SWALLOW STUDY: None. ASSESSMENT PARAMETERS: The Patient participated in a Modified Barium Swallow (MBS) study on 02/07/2019. Dr. Quigley was the radiologist present for this evaluation. This study was recorded in the lateral view and images were sent to PACs for storage. Scoring was completed through each trial using the 8-point Penetration-Aspiration Scale (PAS) and Videofluoroscopic Scale Score (VSS), and summarized via the Modified Barium Swallow Impairment Profile (MBSImP) and the Bolus Residue Scale (BRS), with severity scoring through the Dysphagia Severity Rating Scale (DSRS), the Swallowing Performance Scale (PSP), and the Dynamic Imaging Grade of Swallowing Toxicity (DIGEST), and recommended diet textures through the International Dysphagia Diet Standardisation Initiative (IDDSI). 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 OBJECTIVE ASSESSMENT OF SWALLOW FUNCTION (QUANTITATIVE ? PER TRIAL): PENETRATION / ASPIRATION SCALE (VILLAFANA): 1 = does not enter airway 2 = enters airway/above vocal folds/ejected 3 = enters airway/above vocal folds/not ejected 4 = enters airway/contacts vocal folds/ejected 5 = enters airway/contacts vocal folds/not ejected 6 = enters airway/below vocal folds/ejected 7 = enters airway/below vocal folds/not ejected despite effort 8 = enters airway/below vocal folds/no effort VIDEOFLOROSCOPIC SCALE SCORE (VILLAFANA): Grade I = aspiration of material that has penetrated into the laryngeal vestibule, intact cough reflex Grade II = aspiration < 10 % of the bolus, intact cough reflex Grade III = aspiration of < 10 % of the bolus, reduced cough reflex or aspiration of > 10 % of the bolus, intact cough reflex Grade IV = aspiration of > 10 % of the bolus, reduced cough reflex PENETRATION / ASPIRATION SCALE (SCORE) WITH VIDEOFLOROSCOPIC SCALE SCORE: Thin liquid - 5 mL tsp.: 1 Thin liquids via cup (single sip): 8 ? Grade IV Curran thickened liquids via cup (single sip): 8 ? Grade III Pudding via spoon: 8 ? Grade III OBJECTIVE ASSESSMENT OF SWALLOW FUNCTION (QUANTITATIVE ? AGGREGATE): MODIFIED BARIUM SWALLOW IMPAIRMENT PROFILE (MBSImP) LABIAL SEAL: 0 (of 4) no labial escape TONGUE CONTROL: 2 (of 3) posterior escape < 50% BOLUS PREPARATION / MASTICATION: DNT BOLUS TRANSPORT / LINGUAL MOTION: 3 (of 4) repetitive / disorganized motion ORAL RESIDUE: 2 (of 4) residue collection on oral structures INITIATION OF PHARYNGEAL SWALLOW: 4 (of 4) no visible initiation SOFT PALATE ELEVATION: 1 (of 4) trace column LARYNGEAL ELEVATION: 3 (of 3) no superior movement ANTERIOR HYOID EXCURSION: 1 (of 2) partial movement EPIGLOTTIC MOVEMENT: 2 (of 2) no inversion LARYNGEAL VESTIBULE CLOSURE: 2 (of 2) no closure PHARYNGEAL STRIPPING WAVE: 1 (of 2) present / diminished PE SEGMENT OPENIN (of 3) minimal distension; marked obstruction TONGUE BASE RETRACTION: 3 (of 4) wide column of contrast PHARYNGEAL RESIDUE: 4 (of 4) minimal to no pharyngeal clearance ESOPHAGEAL BOLUS CLEARANCE: could not view BOLUS RESIDUE SCALE (BRS): 5(of 6) residue on the posterior pharyngeal wall and piriform sinus DYSPHAGIA SEVERITY RATING SCALE (DSRS): 6 (severe - 100% impairment) SWALLOWING PERFORMANCE SCALE (SPS): 7 (severe) DYNAMIC IMAGING GRADE OF SWALLOWING TOXICITY (DIGEST) DIGEST SAFETY GRADE: grade III DIGEST EFFICIENCY GRADE: grade IV SUMMARY DIGEST GRADE: grade IV (profound; life threatening) OBJECTIVE ASSESSMENT OF SWALLOW FUNCTION (QUALITATIVE): ORAL PREPARATORY PHASE: sufficient anterior oral containment during presentation / manipulation; apparently preserved management of breathing / bolus formation; solid textures held out of concern for safety in addition to Patient reported phagophobia. ORAL TRANSITIONAL PHASE: fragmented swallowing (piecemeal deglutition) with somewhat discoordinated lingual movements; premature posterior bolus loss most prominently with liquids. PHARYNGEAL PHASE: marked reduction in hyolaryngeal excursion and duration (at times nearly absent) insufficient / limited / no laryngeal vestibule pressure generated to expel penetrated material; profound pharyngeal dysmotility most prominently with thicker viscosities attributed to marked reductions in tongue based retraction, posterior pharyngeal stripping wave action, reduced epiglottic deflection and pharyngoesophageal segment opening (complicated by near absent anterior hyoid excursion) with copious post prandial consolidation within the vallecula pyriforms unresponsive to frequent reswallow; mild velopharyngeal insufficiency without nasoregurgitation; noted difficulty assessing pharyngeal dyssynchrony vs. premature posterior spillage due to the limited hyolaryngeal excursion noted, though it does appear that this is a marked impairment in this sub phase as well. ESOPHAGEAL PHASE: no obvious esophageal phase abnormalities observed, though limited bolus passage through the pharyngoesophageal segment was noted. CONTRIBUTING / COMPLICATING FACTORS AND NOTABLE FINDINGS: very weak cough intensity generated to expel penetrated material / tracheobronchial aspiration (MARKED dystussia); absent cough response in response to tracheobronchial aspiration (atussia) of various quantities and densities; noted extensive scar tissue and surgical stables throughout the pharyngeal / laryngeal arena that did not significantly impact image quality; Patient reported phagophobia (fear of swallowing) initially precluding trials of regular textures, though as the study progressed it was obvious that there was a clear risk to the Patients safety that would have precluded completion of trials regardless. RESPONSE TO STRATEGIES: available therapeutic / postural techniques limited by the significance of pharyngeal phase impairment, with no reasonable expectation for improvement. DYSPHAGIA ASSOCIATED MEDICAL CONSIDERATIONS / INTERVENTION CONSIDERATIONS: The Patient was noted to SILENTLY aspirate with all textures trialed, with clinical assessment at bedside relying on identification of classic overt signs and symptoms of aspiration considered unreliable. All aspiration identified varied in quantity, from rather consistent and marked post prandial penetration and subsequent silent aspiration with a consistent flow with thin liquids, to smaller quantities (5-10% in total) of aspiration with nectar and pureed textures; however it is important to note that these quantities were likely lessened due to the significant amount of hyperpharyngeal retention with thicker viscosities, with a smaller yet consistent flow to penetration and subsequent aspiration with tracheal to distal movement. I would consider a repeat modified barium swallow study within 4 - 8 weeks (if clinically appropriate) to further assess the presence and extent of silent and overt aspiration following training and implementation of compensatory swallow strategies if the Patient is able to consistently demonstrate and implement targeted strategies, though anticipated functional return is unlikely. I would consider the Patient to be at a higher risk of aspiration related medical complications / aspiration pneumonia / aspiration related pulmonary syndrome secondary to his altered upper aerodigestive tract following surgical intervention secondary to oropharyngeal cancer status post irradiation (5 years prior; 39 fractions), esophageal motility disorders requiring esophageal dilatation, the diagnosis of chronic obstructive pulmonary disease, presence and extent of dysphagia with extensive pharyngeal phase impairment, the presence and extent of SILENT aspiration identified under fluoroscopy of multiple viscosities under fluoroscopy with increased potential for tracheobronchial aspiration of more dense viscosities, Compromised airway defenses with marked dystussia and possible vocal cord dysfunction following endotracheal intubation and tracheostomy placement in addition to prior vocal fold cancer, his advanced age, his lower functional status, the presence of malnutrition, anticipated tube feeding use / dependence, and his higher prevalence of comorbidities. I would consider this Patient to be a high risk for malnutrition and dehydration due to the clinical recommendations for strict NPO status, recent significant weight loss (likely directly affected by severe dysphagia), the Patients advanced age, and severity of dysphagia. Would consider this Patient to be a high risk for impaired ventilatory drive, impaired immune function, delayed wound healing, delayed convalescence from illness, decreased functional status, reduced energy / protein intake, and greater deficit to intake requirements secondary TO malnutrition. The Patient may require intervention to reduce the risk of malnutrition, with considerations for food enrichment, oral nutritional supplementation, and most likely considerations and implementation of alternative means of nutrition via gastrostomy. Would consider implementation of the Chen Free Water Protocol (FFWP) following ONLY FOLLOWING CLEARANCE BY THE MEDICAL TEAM if strict and aggressive oral care is provided. I would consider the Patent to be at a higher risk of oropharyngeal colonization with respiratory pathogens secondary to the Patient?s advanced age, poor nutritional status / risk of malnutrition / presence of malnutrition, xerostomia, impaired salivary clearance, recent use of antibiotics possibly provoking a variety of respiratory josy, anticipated placement on alternative means of nutrition and likely prevalence of gastroesophageal reflux disease. Aspiration of saliva contaminated with pathogens can lead to pulmonary infections, with creation, implementation, and adherence to an aggressive oral and dental care program is essential. I will recommend an aggressive oral care program that includes pre-rinse use prior to water intake; routine oral care / denture care in the a.m., prior to oral intake, after oral intake, and prior to bed via toothbrush / swab / rinse; use of oral moisturizers as needed to reduce impact of xerostomia; and frequent dental checkups post-admission; Encouraged continuous oral care similar in nature to that provide via the Chen Free Water Protocol. I would STRONGLY consider the Patients quality of life if the Patient and Patient?s family request advancement to a PO diet given the anticipated poor prognosis for functional return ONLY if all parties comprehend the severity of the Patient?s swallow deficits and concomitant medical complications associated with silent aspiration, otherwise a follow up Modified Barium Swallow study is indicated prior to advancement to a PO diet. INTERVENTION RECOMMENDATIONS AND CONSIDERATIONS: The Patient requires intensive skilled speech-language intervention targeting training and implementation of a swallowing exercise maintenance program to promote the highest level of preserved post-irradiation swallow functioning targeting the entirety of the pharyngeal phase of deglutition; considerations for training and implementation of a Trismus based exercise program to promote improved and sustained post-irradiation / surgical intervention mandibular functioning (as clinically indicated); training and implementation of a strict oral care protocol to reduce the effects of xerostomia and improve / maintain the integrity of the oral mucosa reducing the risk of aspiration related pulmonary complications; training, implementation, and Patient / caregiver education regarding implementation of the Chen Free Water Protocol (FFWP) if clinically appropriate; Patient / caregiver education regarding oropharyngeal cancer status post-irradiation dysphagia and associated symptomology; Patient and caregiver education regarding dysphagia associated with chronic obstructive pulmonary disease (COPD); and I would strongly encourage dedicated use of incentive spirometer to facilitate improved pulmonary expansion and cough intensity. POST ASSESSMENT EDUCATION: Results and recommendations were discussed with the Patient immediately following MBS completion, with the Patient verbalizing understanding and agreement with all recommendations and education provided, though continued education is highly recommended. We briefly discussed factors impacting effects of aspiration, to include: the quantity of aspiration, the depth of aspiration (trachea or distal airways), and the physical properties of the aspirate. We briefly discussed consequences of oropharyngeal dysphagia, to include pulmonary complications from tracheobronchial aspiration; potential for airway obstruction / asphyxiation; inadequate oral intake because of dysphagia; reduced liquid intake resulting in dehydration; reduced caloric intake resulting in unintentional and potentially medically complicating loss of weight; impairment in mental and physical condition; complications in overall course of care with increased length of hospitalizations, and overall worse rehabilitation outcomes; and increased risk for mortality / . We briefly discussed benefits and risks associated with alternative means of nutrition, with increased access to caloric supplementation and reduce hydration deficits, in addition to possible reduction in stress associated with mealtimes, though nasogastric / gastrostomy feeding does not significantly reduce aspiration risk and may lead to reduced quality of life, disrupted sleep patterns, and stoma site infections. DIET TEXTURE RECOMMENDATIONS: Cannot definitively identify appropriate diet texture recommendations, with no difference in tolerance between all textures. Will require considerations for NPO status and alternative means of nutrition IMAGE COUNT: [id number] Tello Ordonez M.A., CCC-TEXTILE PIN WORKER, CBIS MBSImP Certified, LSVT Certified [facility] Speech-Language Pathology Department [email or web address]
--- NOTE | 2019-02-07 13:00 | RAD_ITS ---
STUDY: SWALLOWING STUDY REASON FOR EXAM: Male, 79 years old. Multiple prior back surgeries TECHNIQUE: The examination was performed with Speech Pathology in attendance. Under fluoroscopic observation, the patient ingested thin barium, thick barium, barium pudding, and barium coated cracker. FLUOROSCOPY TIME: 1:26 minutes/seconds RADIOLOGIST INVOLVEMENT: Dr. Quigley COMPARISON: None. FINDINGS: The following was observed during swallowing of the various mixtures of barium: Thin Barium: There was evidence of aspiration and laryngeal penetration. Thick Barium: There was evidence of aspiration and laryngeal penetration.. Barium Pudding: There was evidence of aspiration and laryngeal penetration. Barium Coated Cracker: Not done. RAD/Swallowing Function w/Video IMPRESSION: There was evidence of aspiration or laryngeal penetration.. The swallow study findings were discussed with the patient by the speech pathologist at the conclusion of the examination. Please see speech pathology report for more information and recommendations. The procedure was performed by speech therapist under the direct supervision of Dr. Quigley Electronically Signed: Sami Quigley, at 15:39 EDT Tel , Service support ,
[2019-02-07 16:00] VITALS: BP 118/72; PULSE 89; RESP 18; TEMP 36.9; O2SAT 96
[2019-02-07] MEDS: Mirtazapine 15 MG Tablet 7.5 MG PO (20:46)
[2019-02-08] MEDS: Enoxaparin 30 MG/0.3 ML Syringe SC (06:12)
[2019-02-08] MEDS: Allopurinol 300 MG Tablet PO (06:12)
[2019-02-08] MEDS: Levothyroxine 50 MCG Tablet PO (06:12)
[2019-02-08] MEDS: NYSTATIN 500,000 UNIT/5 ML UDC 500000 UNIT PO ×4 (06:12→20:11)
[2019-02-08] MEDS: Menthol/Lanolin/Calamine/Znox 113 GM Tube 1 APPLIC TOPICAL ×3 (06:21→20:10)
[2019-02-08] MEDS: Aspirin 81 MG TAB.CHEW PO (07:51)
[2019-02-08 14:11] VITALS: PULSE 97; RESP 20
[2019-02-08 15:53] VITALS: BP 113/63; PULSE 89; RESP 20; TEMP 36.8; O2SAT 94
[2019-02-08] MEDS: Mirtazapine 15 MG Tablet 7.5 MG PO (20:11)
[2019-02-09] MEDS: NYSTATIN 500,000 UNIT/5 ML UDC 500000 UNIT PO ×4 (05:40→20:09)
[2019-02-09] MEDS: Allopurinol 300 MG Tablet PO (05:40)
[2019-02-09] MEDS: Menthol/Lanolin/Calamine/Znox 113 GM Tube 1 APPLIC TOPICAL ×3 (05:40→20:07)
[2019-02-09] MEDS: Enoxaparin 30 MG/0.3 ML Syringe SC (05:40)
[2019-02-09] MEDS: Levothyroxine 50 MCG Tablet PO (05:40)
[2019-02-09] MEDS: Aspirin 81 MG TAB.CHEW PO (07:36)
[2019-02-09 09:31] VITALS: O2SAT 92
[2019-02-09 15:14] VITALS: BP 115/67; PULSE 87; RESP 20; TEMP 36.7; O2SAT 93
--- NOTE | 2019-02-09 19:19 | NURSING ---
Addendum entered by Maris Desai 02/09/19 21:24: 2100- pt's neck dressing changed which had a small amount of thick, white sputum on it. site cleansed and new dressing applied. pt denies difficulty breathing. denies feeling anything further stuck in throat. no needs at this time. Original Note: pt's daughter called this nurse to room. pt felt as though he had something stuck in his throat, dressing loosed, no relief. pt instructed to cough through stoma in kleenex, no relief. Pt pointed to trach suction kit in room. sterile deep suction of trach performed x2, per pt request, otlerated well, small amount of white sputum obtained. pt stated minimal relief. mouth and throat examined, appeared unremarkable and without any visible foreign object. roxi reapplied to suction for oropharyngeal suctioning. pt requested x2, then stated relief. will continue to monitor
[2019-02-09] MEDS: Mirtazapine 15 MG Tablet 7.5 MG PO (20:08)
[2019-02-10] MEDS: Menthol/Lanolin/Calamine/Znox 113 GM Tube 1 APPLIC TOPICAL ×3 (05:06→20:07)
[2019-02-10] MEDS: Enoxaparin 30 MG/0.3 ML Syringe SC (05:07)
[2019-02-10] MEDS: Allopurinol 300 MG Tablet PO (05:08)
[2019-02-10] MEDS: Levothyroxine 50 MCG Tablet PO (05:08)
[2019-02-10] MEDS: Aspirin 81 MG TAB.CHEW PO (05:08)
[2019-02-10] MEDS: NYSTATIN 500,000 UNIT/5 ML UDC 500000 UNIT PO ×4 (05:08→20:07)
--- NOTE | 2019-02-10 07:00 | NURSING ---
0700- spoke with Gisela via phone call re: pt's follow-up appointment at [facility] today and pt's O2. states she has a portable tank in the car but is unsure if it is full. Instructed her to bring it in so staff can check levels.
--- NOTE | 2019-02-10 07:38 | NURSING ---
0737- patient left floor via wheelchair with to follow-up appointment at [facility]. on 2L n/c and O2 tank nearly full. Patient sent with medication list.
--- NOTE | 2019-02-10 12:43 | NURSING ---
Addendum entered by Aubree Howard 02/10/19 16:48: Dr. Lay in to see patient. Dr. Lay to put in PEG Tube on Sunday. Original Note: Patient back from appointment. Per patient and family, Dr. Huizar gave new orders for PEG tube placement. Dr. Quinn notified of this. Orders given to consult General surgery if patient really wants PEG tube placement. Talked to the patient, patient states that he wants a PEG tube. Dr. Lay called and consulted for PEG tube placement.
[2019-02-10 15:34] VITALS: BP 109/64; PULSE 92; RESP 18; TEMP 36.6; O2SAT 93
--- NOTE | 2019-02-10 18:16 | PCM.CONS.GEN ---
Reason for Consult Date of Consultation: 02/10/19 Reason for Consultation: need for feeding access History of Present Illness: The patient is a 79 year old M who failed a swallowing test and I've been consult for EGD and PEG tube placement. The patient has significant history of COPD, GERD, previous peptic ulcer disease with what he describes is half his stomach being removed approximately 40 years previously. He had recently completed radiation treatment and is status post resection of floor of mouth cancer. the patient underwent a composite resection floor of mouth with tongue marginal mandibulectomy and extensive neck dissection along with free flap reconstruction and tracheostomy on January 06, 2019. he had revision of the flap for free flap congestion on January 12, 2019. His tracheostomy was removed in the office earlier this week. After failing his cookie swallow was recommended he have a PEG tube placed. the patient has a history of esophageal dilatation in the past.he has history of asthma tobacco use, superior mesenteric vein thrombosis, the carcinoma larynx, he is status post partial gastrectomy in the past with a history of alcoholism. His diagnosis of myeloproliferative disorder. he has had previous colonoscopies and previous esophageal dilatations. His surgical procedure for bleeding ulcer was in 1969. He notes allergies to doxycycline. 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) Esophageal stricture (Chronic) Hypothyroidism (Chronic) Polycythemia (Chronic) Stage 2 moderate COPD by GOLD classification (Chronic) FEV 1 52% correction current use of anticoagulant (Chronic) Gout (Chronic) gouty mass dorsal radial aspect PIP joint left index finger Chronic respiratory failure with hypoxia (Chronic) Iron deficiency anemia (Chronic) Hyperuricemia (Chronic) Former smoker (Chronic) Benign esophageal stricture (Chronic) Malnutrition of moderate degree (Chronic) Leukocytosis (Chronic) Dysphagia (Chronic) Hypersomnia (Chronic) COPD (chronic obstructive pulmonary disease) (Chronic) FEV1 52% History of peptic ulcer disease (Chronic) Medical History: Medical History (Last Reviewed 11/27/18 @ 09:51 by Dary Thomas) COPD (chronic obstructive pulmonary disease) (Chronic) J44.9 FEV1 52% History of peptic ulcer disease (Chronic) Z87.11 Adenomatous colon polyp D12.6 Gout M10.9 History of cataract Z86.69 Hypoxemia R09.02 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 Pancreatitis K85.90 Polycythemia D75.1 Protein calorie malnutrition E46 Thrombocytosis D47.3 Chronic back pain M54.9, G89.29 Iron deficiency anemia D50.9 Stage 2 moderate COPD by GOLD classification J44.9 Tobacco use Z72.0 Elevated LFTs (Resolved) R79.89 Pneumonia (Resolved) J18.9 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 Allergies doxycycline Adverse Reaction (Verified 11/27/18 09:50) PANCREATITIS Home Medications: Ambulatory Orders Medication Instructions Recorded Albuterol Inhaler [Ventolin Hfa] 2 puff INHALATION Q6H PRN PRN 01/02/14 Allopurinol [Zyloprim] 300 mg PO DAILY 09/23/17 Aspirin [Aspirin, Baby] 81 mg PO DAILY 05/03/18 Cholecalciferol (Vitamin D3) 1,000 unit PO DAILY 05/03/18 [Vitamin D3] Ondansetron [Ondansetron Odt] 4 mg PO Q8H PRN PRN 05/03/18 Albuterol Aerosols [Ventolin 2.5 mg INHALATION Q2H PRN PRN 01/30/19 Aerosols] Chlorhexidine [(None)] 15 ml PO Q6H PRN 01/30/19 Ciprofloxacin [Cipro] 500 mg PO BID 01/30/19 Fluticasone 110 Mcg [Flovent (SP)] 1 puff INHALATION BID 01/30/19 Hydroxyurea [Hydrea] 500 mg PO DAILY 01/30/19 Levothyroxine [Synthroid] 50 mcg PO DAILY 01/30/19 Tiotropium Br/Olodaterol HCl 2 puff INHALATION DAILY 01/30/19 [Stiolto Respimat] Surgical History: Surgical History (Last Reviewed 11/27/18 @ 09:51 by Dary Thomas) Esophageal dilatation K22.8 2003 Floor of mouth resection, sialadochoplasty 2017 H/O colonoscopy Z98.890 2015, 2012, 2003 History of esophagogastroduodenoscopy (EGD) Z98.890 2012 2003 History of laryngoscopy Z98.890 2014 S/P partial gastrectomy Z90.3 1970 Surgical History: - - dysplasia of tongue, ulcer surgery with some removal of stomach? vocal cord lesion. Psychiatric History: No pertinent psych hx Lives: Spouse/ Significant Other Smoking Status: Former smoker Tobacco Use: Non-smoker Alcohol: Occasional Drugs: None - *Family History Maternal Family History: Family History (Last Reviewed 11/27/18 @ 09:51 by Dary Thomas) Brother Brain cancer Bone cancer Brain tumor Father CAD (coronary artery disease) Heart disease History Items: - - No cardiac hx Paternal Family History: Family History (Last Reviewed 11/27/18 @ 09:51 by Dary Thomas) Brother Brain cancer Bone cancer Brain tumor Father CAD (coronary artery disease) Heart disease History Items: No pertinent history Patient Problems: Active and Suspected Problems (Last Reviewed 11/27/18 @ 09:51 by Dary Thomas) Debility (Acute) Tracheostomy present (Acute) - Physical Exam General: Alert, Oriented x3 Oral: - - postsurgical changes Neck: - - postsurgical changes with tracheostomy site healing Lungs: - - coarse breath sounds Cardiovascular: Regular rate, Regular Rhythm Abdomen: Bowel Sounds Present, Soft, Non Tender, - - well-healed transverse incision consistent with previous gastric resection Vital Signs Temp Pulse Resp BP Pulse Ox 97.9 F 92 18 109/64 93 02/10/19 15:34 02/10/19 15:34 02/10/19 15:34 02/10/19 15:34 02/10/19 15:34 Oxygen Flow Rate (L/min) 1 Oxygen Delivery Method Nasal Cannula Weight: 50.604 kg Body Mass Index (BMI) 16.7 Intake and Output for Last 24 Hours 02/08/19 02/09/19 02/10/19 23:59 23:59 23:59 Intake Total 600 / 600 580 / 580 240 / 240 Balance 600 / 600 580 / 580 240 / 240 Assessment/Plan All Active Problems (Last Reviewed 11/27/18 @ 09:51 by Dary Thomas) Debility (Acute) Tracheostomy present (Acute) Sepsis (Acute) JULIANA (acute kidney injury) (Resolved) Elevated LFTs (Resolved) Foreign body in esophagus (Resolved) Neoplasm of unspecified behavior of bone, soft tissue, and skin (Resolved) Osteomyelitis of finger of left hand (Resolved) Pneumonia (Resolved) floor of mouth cancer, complex reconstruction, failed swallowing test, need for feeding access I plan to perform EGD and attempted PEG tube placement. This may be challenging due to his previous hemigastrectomy. The patient understands the risks, benefits, risk of complications and planned course of events and consents to the planned procedure. He has additional testing going on tomorrow. We'll plan for EGD and PEG tube placement on Sunday. He will get 2 g of ampicillin pre procedure.
[2019-02-10] MEDS: Mirtazapine 15 MG Tablet 7.5 MG PO (20:08)
[2019-02-11] MEDS: Enoxaparin 30 MG/0.3 ML Syringe SC (05:34)
[2019-02-11] MEDS: Allopurinol 300 MG Tablet PO (05:34)
[2019-02-11] MEDS: Levothyroxine 50 MCG Tablet PO (05:34)
[2019-02-11] MEDS: NYSTATIN 500,000 UNIT/5 ML UDC 500000 UNIT PO ×4 (05:34→20:16)
[2019-02-11] MEDS: Menthol/Lanolin/Calamine/Znox 113 GM Tube 1 APPLIC TOPICAL ×3 (05:41→20:21)
--- NOTE | 2019-02-11 09:03 | PCA ---
Pt refused to come out to the table for breakfast due to supervision order for meals, other aide sat in room with patient
--- NOTE | 2019-02-11 11:11 | NURSING ---
Per speech therapy, paint nystatin on tongue instead of resident swishing and swallowing it as resident is having difficulty swallowing.
[2019-02-11 13:34] VITALS: O2SAT 95
[2019-02-11 15:35] VITALS: BP 94/76; PULSE 92; RESP 22; TEMP 36.8; O2SAT 96
[2019-02-11] MEDS: Mirtazapine 15 MG Tablet 7.5 MG PO (20:16)
--- NOTE | 2019-02-12 07:48 | NURSING ---
Addendum entered by Yara Edgar 02/12/19 08:55: Clear liquids given then pt has been NPO since 0830 per orders, surgery scheduled at 1030 Original Note: surgery called & would like pt to be down at 0930.
--- NOTE | 2019-02-12 09:20 | NURSING ---
pt off unit to endo via WC at this time.
[2019-02-12 13:20] VITALS: BP 117/62; PULSE 81; RESP 24; TEMP 36.2; O2SAT 97
--- NOTE | 2019-02-12 13:27 | NURSING ---
pt returned from surgery, PEG in place. getting orders from accounts officer to start Tube feeds. Pt will remain NPO until speech assesses. Vitals stable.
[2019-02-12] MEDS: Jevity 1.5 1,000 ML 25 ML GT (15:51)
[2019-02-12] MEDS: NYSTATIN 500,000 UNIT/5 ML UDC 500000 UNIT PO ×2 (15:51→21:32)
[2019-02-12] MEDS: Menthol/Lanolin/Calamine/Znox 113 GM Tube 1 APPLIC TOPICAL ×2 (15:52→21:35)
--- NOTE | 2019-02-12 16:00 | NURSING ---
checked placement by auscultation, started Jevity at 25cc/hr. Programmed pump 150cc H2o flushes Q4h as ordered, oral care provided. Pt asking when he can drink water, explained a few times that speech will let him know if that is even a possibility at this point d/t high risk of aspiration. Instructed pt that he needs to sit at least 45 degrees at all times for tube feeding. pt verbalized understanding. Pt sitting up in recliner chair, call light in reach.
--- NOTE | 2019-02-12 16:09 | CASEMGMT ---
Insurance: continued stay review faxed to [facility] this day. Auth #[id number]
--- NOTE | 2019-02-12 18:31 | NURSING ---
changed Trach drsg, old drsg moist w/mucus. skin prep applied to peritrach site before applying tape to skin. skin noted to be red/irritated from tape.
[2019-02-12] MEDS: Mirtazapine 15 MG Tablet 7.5 MG GT (21:22)
[2019-02-13] MEDS: Polyethylene Glycol 3350 17 GM PACKET GT (04:50)
[2019-02-13] MEDS: Allopurinol 300 MG Tablet GT (04:52)
[2019-02-13] MEDS: Levothyroxine 50 MCG Tablet GT (04:53)
[2019-02-13] MEDS: Menthol/Lanolin/Calamine/Znox 113 GM Tube 1 APPLIC TOPICAL ×3 (05:03→19:49)
[2019-02-13] MEDS: NYSTATIN 500,000 UNIT/5 ML UDC 500000 UNIT PO ×4 (05:08→20:45)
[2019-02-13] MEDS: Enoxaparin 30 MG/0.3 ML Syringe SC (06:18)
[2019-02-13] MEDS: Aspirin 81 MG TAB.CHEW GT (07:49)
[2019-02-13 08:50] VITALS: O2SAT 95
[2019-02-13 16:00] VITALS: BP 102/62; PULSE 85; RESP 18; TEMP 36.4; O2SAT 97
--- NOTE | 2019-02-13 19:31 | NURSING ---
1030 ST made aware of pt confusion surrounding PO intake and PEG tube. ST states that pt has had education multiple times, and forgets nearly qDAY
[2019-02-13] MEDS: Jevity 1.5 1,000 ML 25 ML GT (20:44)
[2019-02-13] MEDS: Mirtazapine 15 MG Tablet 7.5 MG GT (20:45)
[2019-02-14] MEDS: Polyethylene Glycol 3350 17 GM PACKET GT (04:49)
[2019-02-14] MEDS: Allopurinol 300 MG Tablet GT (04:50)
[2019-02-14] MEDS: Levothyroxine 50 MCG Tablet GT (04:50)
[2019-02-14] MEDS: Enoxaparin 30 MG/0.3 ML Syringe SC (04:56)
[2019-02-14] MEDS: Menthol/Lanolin/Calamine/Znox 113 GM Tube 1 APPLIC TOPICAL ×3 (04:58→20:40)
[2019-02-14] MEDS: NYSTATIN 500,000 UNIT/5 ML UDC 500000 UNIT PO ×4 (05:01→20:42)
[2019-02-14 05:34] LABS: Absolute Lymphocyte Count 0.75 X10^3/uL (0.83-4.51); Absolute Neutrophil Count 7.2 X10^3/uL (2.0-7.7); Basophil# 0.14 X10^3/uL; Basophil% 1.6 % (0-1); Eosinophils% 3.4 % (0-5); Hematocrit 38.9 % (40-54); Hemoglobin 11.8 g/dL (13.0-16.5); Lymphocyte # 0.75 X10^3/ul (4.0); Lymphocyte % 8.6 % (19-41); Mean Corp Hgb Conc 30.3 g/dL (32-36); Mean Corpuscular Hgb 27.7 pg (27.0-32.0); Mean Corpuscular Volume 91.3 fL (80-94); Mean Platelet Vol. 10.7 fl (6.2-12.0); Monocyte# 0.32 X10^3/uL; Monocyte% 3.6 % (0-10); NRBC Flagged by Analyzer 0 % (0-5); Neutrophil # 7.19 X10^3/uL (2.7-7.7); POSITIVE MORPHOLOGY YES; Platelet Count 339 K/mm3 (150-450); RBC Distribution Width SD 76.8 fl (35.1-43.9); Red Blood Count 4.26 M/mm3 (4.6-6.2); White Blood Count 8.8 K/mm3 (4.4-11.0)
[2019-02-14 05:43] LABS: Differential Indicated SCAN CRITERIA MET
[2019-02-14 05:50] LABS: BUN 16 mg/dL (7-18); BUN/Creat Ratio 18.6 RATIO (10-20); Calcium,Total 8.3 mg/dL (8.5-10.1); Chloride 105 mmol/L (98-107); Creatinine, Serum 0.86 mg/dL (0.70-1.30); EST Glomerular Filtration Rate 91 mL/min (>60); Est Glom Filt Rate - Afr Amer 110 mL/min (>60); Estimated Creatinine Clearance 46.67 ml/min; Glucose 113 mg/dL (74-106); Potassium 3.7 mmol/L (3.5-5.1); Sodium Level 140 mmol/L (136-145)
[2019-02-14 05:51] LABS: Anion Gap 4 (5-15)
[2019-02-14 06:17] LABS: Anisocytosis 2+; Ovalocyte RARE; Platelet Estimate ADEQUATE (ADEQ)
[2019-02-14] MEDS: Aspirin 81 MG TAB.CHEW GT (07:54)
--- NOTE | 2019-02-14 11:41 | PCM.CONS.GEN ---
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 He has been decannulated from his tracheostomy tube however the stoma has failed to heal over at least the last 2 weeks. The patient reports this gets difficulty in speaking and breathing. He was recently noted to have significant aspiration with swallow and has had a feeding tube placed. He reports that he coughs and chokes with eating and does expectorate material from his trachea stoma from which to continue to be significant air leak. He denies any bleeding, shortness of breath, or pain at the site. He reports he did have radiation therapy as part of his treatment. He has scheduled follow-up with his oncologic team at the [facility] upcoming. 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9 FEV1 52% History of peptic ulcer disease (Chronic) Z87.11 Adenomatous colon polyp D12.6 Gout M10.9 History of cataract Z86.69 Hypoxemia R09.02 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 Pancreatitis K85.90 Polycythemia D75.1 Protein calorie malnutrition E46 Thrombocytosis D47.3 Chronic back pain M54.9, G89.29 Iron deficiency anemia D50.9 Stage 2 moderate COPD by GOLD classification J44.9 Tobacco use Z72.0 Elevated LFTs (Resolved) R79.89 Pneumonia (Resolved) J18.9 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 Allergies doxycycline Adverse Reaction (Verified 02/12/19 09:46) PANCREATITIS Home Medications: Ambulatory Orders Medication Instructions Recorded Albuterol Inhaler [Ventolin Hfa] 2 puff INHALATION Q6H PRN PRN 01/02/14 Allopurinol [Zyloprim] 300 mg PO DAILY 09/23/17 Aspirin [Aspirin, Baby] 81 mg PO DAILY 05/03/18 Cholecalciferol (Vitamin D3) 1,000 unit PO DAILY 05/03/18 [Vitamin D3] Ondansetron [Ondansetron Odt] 4 mg PO Q8H PRN PRN 05/03/18 Albuterol Aerosols [Ventolin 2.5 mg INHALATION Q2H PRN PRN 01/30/19 Aerosols] Chlorhexidine [(None)] 15 ml PO Q6H PRN 01/30/19 Ciprofloxacin [Cipro] 500 mg PO BID 01/30/19 Fluticasone 110 Mcg [Flovent (SP)] 1 puff INHALATION BID 01/30/19 Hydroxyurea [Hydrea] 500 mg PO DAILY 01/30/19 Levothyroxine [Synthroid] 50 mcg PO DAILY 01/30/19 Tiotropium Br/Olodaterol HCl 2 puff INHALATION DAILY 01/30/19 [Stiolto Respimat] Surgical History: Surgical History (Last Reviewed 11/27/18 @ 09:51 by Dary Thomas) Esophageal dilatation K22.8 2003 Floor of mouth resection, sialadochoplasty 2017 H/O colonoscopy Z98.890 2015, 2012, 2003 History of esophagogastroduodenoscopy (EGD) Z98.890 2012 2003 History of laryngoscopy Z98.890 2014 S/P partial gastrectomy Z90.3 1970 Surgical History: - - dysplasia of tongue, ulcer surgery with some removal of stomach? vocal cord lesion. Psychiatric History: No pertinent psych hx Lives: Spouse/ Significant Other Smoking Status: Former smoker Tobacco Use: Non-smoker Alcohol: Occasional Drugs: None - *Family History Maternal Family History: Family History (Last Reviewed 11/27/18 @ 09:51 by Dary Thomas) Brother Brain cancer Bone cancer Brain tumor Father CAD (coronary artery disease) Heart disease History Items: - - No cardiac hx Paternal Family History: Family History (Last Reviewed 11/27/18 @ 09:51 by Dary Thomas) Brother Brain cancer Bone cancer Brain tumor Father CAD (coronary artery disease) Heart disease History Items: No pertinent history Review of Systems Constitutional: Denies: Anorexia, Chills, Fever, Night Sweats Eyes: Denies: Blurred vision, Cataracts HEENT: Reports: Difficulty Swallowing. Denies: Difficulty Hearing, Ear Pain, Eye Pain, Nasal bleeding, Sinus Congestion, Sore Throat Cardiovascular: Denies: Chest Pain, Chest Tightness Respiratory: Denies: Cough, Hemoptysis Gastrointestinal: Denies: Abdominal Pain, Constipation Genitourinary: Denies: Dysuria, Frequency Skin: Denies: Jaundice, Lesions, Pruritis Psychiatric: Denies: Anxiety, Depression Hematologic/ Lymphatic: Denies: Anemia, Easy Bruising, Easy Bleeding Patient Problems: Active and Suspected Problems (Last Reviewed 11/27/18 @ 09:51 by Dary Thomas) Debility (Acute) Tracheostomy present (Acute) Tracheostomy complication (Acute) Subjective: The patient is seen in the TCU unit he is well-appearing and conversant at normal conversational tones. He has difficulty voicing due to the significant air escape in his tracheal stoma site. Finger occlusion reveals good voicing with mild hoarseness and some speech intelligibility issues due to his free flap reconstruction and resection history. He reports that he has no difficulty breathing or pain at the tracheostoma site. He does admit to cough with eating and expectoration of some bits of interior from his tracheostoma. Objective: The patient is alert and in no acute distress with mild hoarseness with difficulty phonating due to air escape from his trachea stoma site. There are radiation changes to the neck skin. There is a well-formed tracheostoma tract in the anterior neck without significant granulation or apparent healing. There is no granulation tissue. There is no erythema or exudates. - Physical Exam General: Alert, Oriented x3, Cooperative, No apparent distress HEENT: Atraumatic, PERRLA, EOMI, Normocephalic Oral: Moist Mucosa, - - There is reconstruction soft tissue present in the anterior floor of mouth and tongue with Vicryl sutures intact consistent with recent radial forearm reconstruction after his surgical resection. Neck: Trachea Midline, - - Trachea stoma site intact with woody edema of the neck consistent with radiation therapy treatment Lungs: Clear to auscultation, Normal air movement Cardiovascular: Regular rate, Regular Rhythm Extremities: No clubbing, No cyanosis Skin: No rashes, No breakdown Musculoskeletal: Cachexia Lymphatic: - - No palpable cervical adenopathy is present Neurological: - - Hoarse vocal quality Psych/Mental Status: Normal Affect, Appropriate Vital Signs Temp Pulse Resp BP Pulse Ox 97.5 F L 85 18 102/62 97 02/13/19 16:00 02/13/19 16:00 02/13/19 16:00 02/13/19 16:00 02/13/19 16:00 Oxygen Flow Rate (L/min) 2 Oxygen Delivery Method Nasal Cannula Weight: 47.372 kg Body Mass Index (BMI) 16.7 Intake and Output for Last 24 Hours 02/12/19 02/13/19 02/14/19 23:59 23:59 23:59 Intake Total 120 / 120 2453 / 2453 1097 / 1097 Output Total 100 / 100 Balance 120 / 120 2353 / 2353 1097 / 1097 Laboratory Tests Past 24 Hrs 02/14/19 02/14/19 05:15 05:15 WBC 8.8 RBC 4.26 L Hgb 11.8 L Hct 38.9 L MCV 91.3 MCH 27.7 MCHC 30.3 L RDW Std Deviation 76.8 H RDW Coeff of Alexey 24.0 H Plt Count 339 MPV 10.7 Immature Gran % (Auto) 0.800 Neut % (Auto) 82.0 H Lymph % (Auto) 8.6 L [place] % (Auto) 3.6 Eos % (Auto) 3.4 Baso % (Auto) 1.6 H Absolute Neuts (auto) 7.2 Absolute Lymphs (auto) 0.75 L Nucleated RBC % 0 Platelet Estimate ADEQUATE Anisocytosis 2+ Ovalocytes RARE Sodium 140 Potassium 3.7 Chloride 105 Carbon Dioxide 31.0 Anion Gap 4 L BUN 16 Creatinine 0.86 Estim Creat Clear Calc 46.67 Est GFR (MDRD) Af Amer 110 Est GFR (MDRD) Non-Af 91 BUN/Creatinine Ratio 18.6 Glucose 113 H Calcium 8.3 L Assessment/Plan All Active Problems (Last Reviewed 11/27/18 @ 09:51 by Dary Thomas) Debility (Acute) Tracheostomy present (Acute) Tracheostomy complication (Acute) Sepsis (Acute) JULIANA (acute kidney injury) (Resolved) Elevated LFTs (Resolved) Foreign body in esophagus (Resolved) Neoplasm of unspecified behavior of bone, soft tissue, and skin (Resolved) Osteomyelitis of finger of left hand (Resolved) Pneumonia (Resolved) Mr. Sorto is a 79-year-old male status post redo construction of a floor of mouth defect following excision of a squamous cell carcinoma of the oral cavity. He is been decannulated from his tracheostomy however this is failed to heal over the last 2 weeks. I see no significant healing at this site and suspect this is secondary to his radiation therapy as well as significant air escape around his dressings. I have talked with the nursing staff about the use of a more occlusive dressing with Xeroform gauze and a rolled gauze bolster to prevent air escape. Observation over time for healing is advised and I discussed with the patient that he may wish to discuss this with his treating physicians at the [facility] for evaluation of any surgical closure. The risk of poor wound healing given his prior radiation and possible enlargement of the hole with attempts of surgical closure are discussed and the patient is understanding of this risk. I instructed him to be careful to ensure he occludes the tracheostomy with his hand to prevent air escape with phonation and that a course of observation for closure would be the safest course of action at this time particularly given his ongoing aspiration as this does allow for him to clear any aspirated material from his lungs. I also discussed with him given his significant dysphasia that refraining from eating now that he is on tube feeding if he continues to suffer significant aspiration may be advised.
[2019-02-14 15:39] VITALS: BP 96/64; PULSE 81; RESP 20; TEMP 36.7; O2SAT 100
[2019-02-14] MEDS: Mirtazapine 15 MG Tablet 7.5 MG GT (20:42)
[2019-02-14] MEDS: Jevity 1.5 1,000 ML 25 ML GT (20:56)
[2019-02-15] MEDS: Enoxaparin 30 MG/0.3 ML Syringe SC (05:40)
[2019-02-15] MEDS: Allopurinol 300 MG Tablet GT (05:40)
[2019-02-15] MEDS: NYSTATIN 500,000 UNIT/5 ML UDC 500000 UNIT PO ×4 (05:40→20:30)
[2019-02-15] MEDS: Levothyroxine 50 MCG Tablet GT (05:41)
[2019-02-15] MEDS: Menthol/Lanolin/Calamine/Znox 113 GM Tube 1 APPLIC TOPICAL ×3 (05:54→20:30)
[2019-02-15 07:40] VITALS: O2SAT 98
[2019-02-15] MEDS: Aspirin 81 MG TAB.CHEW GT (08:49)
--- NOTE | 2019-02-15 08:54 | NURSING ---
10 cc residual of jevity noted when Aspirin administered. Pt states he is tolerating it well. PT sitting on edge of bed dressing self. Tube feed restarted as ordered.
[2019-02-15 15:22] VITALS: BP 93/59; PULSE 85; RESP 22; TEMP 36.6; O2SAT 98
[2019-02-15] MEDS: Jevity 1.5 1,000 ML 50 ML GT (17:30)
[2019-02-15] MEDS: Mirtazapine 15 MG Tablet 7.5 MG GT (20:30)
[2019-02-15 20:33] VITALS: O2SAT 98
[2019-02-16] MEDS: Enoxaparin 30 MG/0.3 ML Syringe SC (05:20)
[2019-02-16] MEDS: NYSTATIN 500,000 UNIT/5 ML UDC 500000 UNIT PO ×4 (05:20→20:54)
[2019-02-16] MEDS: Levothyroxine 50 MCG Tablet GT (05:20)
[2019-02-16] MEDS: Allopurinol 300 MG Tablet GT (05:20)
[2019-02-16] MEDS: Menthol/Lanolin/Calamine/Znox 113 GM Tube 1 APPLIC TOPICAL ×3 (05:29→20:54)
[2019-02-16] MEDS: Aspirin 81 MG TAB.CHEW GT (07:49)
[2019-02-16 10:00] VITALS: RESP 18; O2SAT 98
[2019-02-16 11:33] VITALS: O2SAT 99
[2019-02-16 15:16] VITALS: BP 100/59; PULSE 81; RESP 20; TEMP 36.9; O2SAT 98
[2019-02-16] MEDS: Jevity 1.5 1,000 ML 50 ML GT (15:57)
[2019-02-16] MEDS: Mirtazapine 15 MG Tablet 7.5 MG GT (20:53)
[2019-02-17] MEDS: Enoxaparin 30 MG/0.3 ML Syringe SC (05:33)
[2019-02-17] MEDS: Levothyroxine 50 MCG Tablet GT (05:33)
[2019-02-17] MEDS: Allopurinol 300 MG Tablet GT (05:34)
[2019-02-17] MEDS: Menthol/Lanolin/Calamine/Znox 113 GM Tube 1 APPLIC TOPICAL ×3 (05:35→20:17)
[2019-02-17] MEDS: Aspirin 81 MG TAB.CHEW GT (08:18)
[2019-02-17] MEDS: Jevity 1.5. 1,000 ML Bottle 240 ML GT ×3 (14:09→20:16)
[2019-02-17 15:44] VITALS: BP 107/55; PULSE 85; RESP 20; TEMP 36.6; O2SAT 97
--- NOTE | 2019-02-17 16:09 | CASEMGMT ---
Social Work Spoke with patient requesting DC home 02/19. Pt comfortable managing peg tube at home. IDT agreeable. Provided list of [facility] agencies - pt chose [facility] for SN. Provided script for outpatient ST and hand therapy after. No DME needs. Faxed [facility] updated O2 orders. Plan: DC home 02/20 with [address] [facility] SN Carmen Danielson, HAND LASTER SERVICE ADVISOR
--- NOTE | 2019-02-17 20:30 | PCM.DC ---
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 Discharge Activity: Return to Normal Activity, May Shower, Use Walker Weight Bearing Status: Weight bearing as tolerated Call your doctor if you observe: Fever of 101 or Higher, Inability to urinate, Inability to have a bowel movement, Shortness of breath, Chest pain, Uncontrolled pain Allergies/Adverse Reactions: Allergies doxycycline Adverse Reaction (Verified 02/12/19 09:46) PANCREATITIS Medications to take at Discharge Albuterol Inhaler [Ventolin Hfa] 2 puff INHALATION Q6H PRN PRN 01/02/14 Allopurinol [Zyloprim] 300 mg PO DAILY 09/23/17 Aspirin [Aspirin, Baby] 81 mg PO DAILY 05/03/18 Cholecalciferol (Vitamin D3) [Vitamin D3] 1,000 unit PO DAILY 05/03/18 Ondansetron [Ondansetron Odt] 4 mg PO Q8H PRN PRN 05/03/18 Fluticasone 110 Mcg [Flovent 110 Mcg] 1 puff INHALATION BID 01/30/19 Hydroxyurea [Hydrea] 500 mg PO DAILY 01/30/19 Jevity 1.5 240 ml GT 0700,1000,1300 #10 bottle 02/17/19 Jevity 1.5 240 ml GT 1600,1900 #10 bottle 02/17/19 Levothyroxine [Synthroid] 50 mcg PO DAILY #30 tab 02/17/19 Menthol/Lanolin/Calamine/Znox [Calmoseptine Ointment] 1 applic TOPICAL TID tube 02/17/19 Mineral Oil/Petrolatum,White [Eucerin] 1 applic TOPICAL QHS jar 02/17/19 Mirtazapine [Remeron] 7.5 mg GT QHS #30 tab 02/17/19 Tiotropium Br/Olodaterol HCl [Stiolto Respimat Inhal [place]] 2 puff INHALATION DAILY #1 mist.inhal 02/17/19 The following prescriptions were given: Jevity 1.5 240 ml GT 1600,1900 #10 bottle Prescription Printed Jevity 1.5 240 ml GT 0700,1000,1300 #10 bottle Prescription Printed Mirtazapine [Remeron] 7.5 mg GT QHS #30 tab Transmission Status: Pending to [facility] Tiotropium Br/Olodaterol HCl [Stiolto Respimat Inhal [place]] 2 puff INHALATION DAILY #1 mist.inhal Transmission Status: Pending to [facility] Levothyroxine [Synthroid] 50 mcg PO DAILY #30 tab Transmission Status: Pending to [facility] Primary Care Physician: Varun Wang MD [Primary Care Provider] - Please follow up with your Primary Care Physician in: 1 week. Test Results: Test results from this visit will be discussed in further detail at your follow-up appointment, if applicable. Please Follow Up With: Joe Aguillon DO (oncologist) When: [phone] Please Follow Up With: Marco A Huizar (otolaryngology) When: [phone] Please Follow Up With: Abraham ROMANO (Otolaryngology) When: [phone] Proposed Discharge Date: 02/19/19
--- NOTE | 2019-02-17 20:32 | PCM.DC.SUM ---
Discharge Date and Diagnosis - Problem List Patient Problems: Active and Suspected Problems (Last Reviewed 11/27/18 @ 09:51 by Dary Thomas) Debility (Acute) Tracheostomy present (Acute) Tracheostomy complication (Acute) Date of Admission: 02/12/19 Date of Discharge: 02/19/19 - Primary Discharge Diagnosis Active and Suspected Problems (Last Reviewed 11/27/18 @ 09:51 by Dary Thomas) Debility (Acute) Tracheostomy present (Acute) Tracheostomy complication (Acute) - Secondary Discharge Diagnosis Chronic Problems (Last Reviewed 11/27/18 @ 09:51 by Dary Thomas) Squamous cell carcinoma of mouth (Chronic) Tobacco abuse (Chronic) GERD (gastroesophageal reflux disease) (Chronic) 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) Esophageal stricture (Chronic) Hypothyroidism (Chronic) Polycythemia (Chronic) Stage 2 moderate COPD by GOLD classification (Chronic) FEV 1 52% [facility] current use of anticoagulant (Chronic) Gout (Chronic) gouty mass dorsal radial aspect PIP joint left index finger Chronic respiratory failure with hypoxia (Chronic) Iron deficiency anemia (Chronic) Hyperuricemia (Chronic) Former smoker (Chronic) Benign esophageal stricture (Chronic) Malnutrition of moderate degree (Chronic) Leukocytosis (Chronic) Dysphagia (Chronic) Hypersomnia (Chronic) COPD (chronic obstructive pulmonary disease) (Chronic) FEV1 52% History of peptic ulcer disease (Chronic) Hospital Course and Treatment Imaging Results: 02/12/19 08:30 NPO [Diet: Nothing Per Oral] Type of Dietary Supplement:: Purvis Breakfast Is pt able to select menu?: Yes Clinical Impression(s) from Imaging Studies Videofluoroscopic Swallow 02/07/19 13:00 IMPRESSION: There was evidence of aspiration or laryngeal penetration.. The swallow study findings were discussed with the patient by the speech pathologist at the conclusion of the examination. Please see speech pathology report for more information and recommendations. The procedure was performed by speech therapist under the direct supervision of Dr. Quigley Electronically Signed: Sami Quigley, at 15:39 EDT Tel , Service support , Operations: None Procedures: None Summary of Care Provided: The patient is a 79 year old Male with below past medical history hospitalized for 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 Resident aspirates, diet NPO. 02/12/2019 Dr. Lay placed PEG tube. Tracheostomy stoma not closing, saw Dr. Berman, recommended more occlusive dressing, and follow up with ENT. Discharge home with , [facility]. Patient Problems: Active and Suspected Problems (Last Reviewed 11/27/18 @ 09:51 by Dary Thomas) Debility (Acute) Tracheostomy present (Acute) Tracheostomy complication (Acute) - Physical Exam Vitals/I&O's: Vital Signs Temp Pulse Resp BP Pulse Ox 97.8 F 85 20 H 107/55 L 97 02/17/19 15:44 02/17/19 15:44 02/17/19 15:44 02/17/19 15:44 02/17/19 15:44 Oxygen Flow Rate (L/min) 2 Oxygen Delivery Method Nasal Cannula Weight: 47.372 kg Body Mass Index (BMI) 16.7 Intake and Output for Last 24 Hours 02/15/19 02/16/19 02/17/19 23:59 23:59 23:59 Intake Total 1354 / 1354 1157 / 1157 3099 / 3099 Output Total 100 / 100 Balance 1254 / 1254 1157 / 1157 3099 / 3099 Current Medications Acetaminophen (Tylenol Liquid) 650 mg GT Q4H PRN PRN PRN Reason: Pain Score 1-10/10 Albuterol Sulfate (Ventolin Aerosols) 2.5 mg INHALATION Q2H PRN PRN PRN Reason: sob/wheezing Last Admin: 01/31/19 10:03 Dose: 2.5 mg Documented by: Albuterol Sulfate (Ventolin Hfa (Sp)) 2 puff INHALATION Q6H PRN PRN PRN Reason: SHORTNESS OF BREATH Allopurinol (Zyloprim) 300 mg GT DAILY [facility] Last Admin: 02/17/19 05:34 Dose: 300 mg Documented by: [facility], [facility]) [facility] Last Admin: 02/17/19 08:18 Dose: 81 mg Documented by: Bisacodyl (Dulcolax) 10 mg RECTAL DAILY PRN PRN Reason: Constipation Calamine/Phenol (Calmoseptine Ointment) 1 applic TOPICAL TID [facility]; Protocol Last Admin: 02/17/19 20:17 Dose: 1 applicatio Documented by: Cholecalciferol (Vitamin D) 1,000 unit GT DAILY [facility] Last Admin: 02/17/19 05:34 Dose: 1,000 unit Documented by: Enoxaparin Sodium (Lovenox) 30 mg SC DAILY@0600 [facility] Last Admin: 02/17/19 05:33 Dose: 30 mg Documented by: Enteral Nutritional Formula (Jevity 1.5) 240 ml GT 0700,1000,1300 [facility] Last Admin: 02/17/19 14:09 Dose: 240 ml Documented by: Enteral Nutritional Formula (Jevity 1.5) 240 ml GT 1600,1900 [facility] Last Admin: 02/17/19 20:16 Dose: 240 ml Documented by: Fluticasone Propionate (Flovent Diskus 100 Mcg) 1 puff INHALATION [facility] Last Admin: 02/17/19 20:16 Dose: 1 puff Documented by: Glycopyrrolate/Indacaterol (Utibron Neohaler 27.5-15.6 Mcg) 1 puff IH [facility] Last Admin: 02/17/19 20:16 Dose: 1 puff Documented by: Hydroxyurea (Hydroxyurea) 0.5 gm MC DAILY [facility] Last Admin: 02/17/19 05:34 Dose: 0.5 gm Documented by: Levothyroxine Sodium (Synthroid) 50 mcg GT DAILY [facility] Last Admin: 02/17/19 05:33 Dose: 50 mcg Documented by: Lidocaine/Diphenhydr/Alum/Mg/Simeth () 15 ml PO Q3H PRN PRN PRN Reason: MOUTH IRRITATION Mirtazapine (Remeron) 7.5 mg GT QHS [facility] Last Admin: 02/16/19 20:53 Dose: 7.5 mg Documented by: Multi-Ingredient Cream (Eucerin) 1 applic TOPICAL QHS [facility]; Protocol Last Admin: 02/17/19 20:17 Dose: 1 applicatio Documented by: Ondansetron HCl (Zofran Odt) 4 mg PO Q8H PRN PRN PRN Reason: NAUSEA Last Admin: 02/03/19 18:33 Dose: 4 mg Documented by: Polyethylene Glycol (Miralax) 17 gm GT DAILY [facility] Last Admin: 02/17/19 05:34 Dose: Not Given Documented by: Discharge Diet: - - Nothing by Mouth. Discharge Activity: Return to Normal Activity, May Shower, Use Walker Weight Bearing Status: Weight bearing as tolerated Call your doctor if you observe: Fever of 101 or Higher, Inability to urinate, Inability to have a bowel movement, Shortness of breath, Chest pain, Uncontrolled pain Home Medications: Medications to take at Discharge Albuterol Inhaler [Ventolin Hfa] 2 puff INHALATION Q6H PRN PRN 01/02/14 Allopurinol [Zyloprim] 300 mg PO DAILY 09/23/17 Aspirin [Aspirin, Baby] 81 mg PO DAILY 05/03/18 Cholecalciferol (Vitamin D3) [Vitamin D3] 1,000 unit PO DAILY 05/03/18 Ondansetron [Ondansetron Odt] 4 mg PO Q8H PRN PRN 05/03/18 Fluticasone 110 Mcg [Flovent 110 Mcg] 1 puff INHALATION BID 01/30/19 Hydroxyurea [Hydrea] 500 mg PO DAILY 01/30/19 Jevity 1.5 240 ml GT 0700,1000,1300 #10 bottle 02/17/19 Jevity 1.5 240 ml GT 1600,1900 #10 bottle 02/17/19 Levothyroxine [Synthroid] 50 mcg PO DAILY #30 tab 02/17/19 Menthol/Lanolin/Calamine/Znox [Calmoseptine Ointment] 1 applic TOPICAL TID tube 02/17/19 Mineral Oil/Petrolatum,White [Eucerin] 1 applic TOPICAL QHS jar 02/17/19 Mirtazapine [Remeron] 7.5 mg GT QHS #30 tab 02/17/19 Tiotropium Br/Olodaterol HCl [Stiolto Respimat Inhal [place]] 2 puff INHALATION DAILY #1 mist.inhal 02/17/19 Following Prescrptions Were Given to Patient: Jevity 1.5 240 ml GT 1600,1900 #10 bottle Prescription Printed Jevity 1.5 240 ml GT 0700,1000,1300 #10 bottle Prescription Printed Mirtazapine [Remeron] 7.5 mg GT QHS #30 tab Transmission Status: Pending to [facility] Tiotropium Br/Olodaterol HCl [Stiolto Respimat Inhal [place]] 2 puff INHALATION DAILY #1 mist.inhal Transmission Status: Pending to [facility] Levothyroxine [Synthroid] 50 mcg PO DAILY #30 tab Transmission Status: Pending to [facility] Primary Care Physician: Varun Wang MD [Primary Care Provider] - Please follow up with your Primary Care Physician in: 1 week. Please Follow Up With: Joe Aguillon DO (oncologist) When: [phone] Please Follow Up With: Marco A Huizar (otolaryngology) When: [phone] Please Follow Up With: Abraham ROMANO (Otolaryngology) When: [phone] Disposition: Home with Home Health Minutes spent on discharge:: 35 Patient Condition:: Stable Medical Necessity - Tobacco Use Smoking Status: Former smoker Tobacco Use: Non-smoker Meaningful Use Info Meaningful Use Diagnoses (Choose all that apply): None applicable
--- NOTE | 2019-02-17 20:35 | HHNOTE_ITS ---
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 Resident aspirates, diet NPO. 02/12/2019 Dr. Lay placed PEG tube. Tracheostomy stoma not closing, saw Dr. Berman, recommended more occlusive dressing, and follow up with ENT. Discharge home with , [facility]. 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) Tobacco abuse (Chronic) GERD (gastroesophageal reflux disease) (Chronic) 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) Esophageal stricture (Chronic) Hypothyroidism (Chronic) Polycythemia (Chronic) Tracheostomy complication (Acute) Stage 2 moderate COPD by GOLD classification (Chronic) [facility] current use of anticoagulant (Chronic) Gout (Chronic) Chronic respiratory failure with hypoxia (Chronic) Iron deficiency anemia (Chronic) Hyperuricemia (Chronic) Sepsis (Acute) Former smoker (Chronic) Benign esophageal stricture (Chronic) Malnutrition of moderate degree (Chronic) Leukocytosis (Chronic) Dysphagia (Chronic) Hypersomnia (Chronic) COPD (chronic obstructive pulmonary disease) (Chronic) History of peptic ulcer disease (Chronic) - Requirements and Reasons Disciplines Needed/Ordered: [facility] Reason for Disciplines: Disease Specific Monitoring/education, Medication Management/Knowledge Deficit, Tube Feedings Related To: Change in Medical Treatment Plan, Physical Impairments Patient is unable to leave the home: Without Aid of Supportive Devices (crutches, cane, wheelchair, walker), Without the assistance of another person
[2019-02-17] MEDS: Mirtazapine 15 MG Tablet 7.5 MG GT (20:58)
--- NOTE | 2019-02-17 22:50 | NURSING ---
2015- 2mL residual noted to PEG prior to bolus feeding and medication administration. Patient educated on both feedings and medications through PEG. Pt states his daughter is an RN and will be able to assist him at home. Tolerated well. Denies nausea/discomfort. Pt states he had a few loose stools today and will not be wanting his laxatives in the morning.
[2019-02-18] MEDS: Menthol/Lanolin/Calamine/Znox 113 GM Tube 1 APPLIC TOPICAL ×2 (05:48→20:12)
[2019-02-18] MEDS: Jevity 1.5. 1,000 ML Bottle 240 ML GT ×3 (05:49→19:47)
[2019-02-18] MEDS: Enoxaparin 30 MG/0.3 ML Syringe SC (05:50)
[2019-02-18] MEDS: Levothyroxine 50 MCG Tablet GT (05:51)
[2019-02-18] MEDS: Aspirin 81 MG TAB.CHEW GT (05:51)
[2019-02-18] MEDS: Allopurinol 300 MG Tablet GT (05:51)
[2019-02-18 07:26] VITALS: O2SAT 95
--- NOTE | 2019-02-18 10:41 | NURSING ---
Not in room at this time. off unit and gone to a doctors appointment at this time.
[2019-02-18 16:00] VITALS: BP 111/55; PULSE 104; RESP 25; TEMP 36.7; O2SAT 95
--- NOTE | 2019-02-18 16:00 | NURSING ---
back from appointment. Bolus PEG feed given at this time.
[2019-02-18] MEDS: Ondansetron ODT 4 MG Tablet PO (17:15)
--- NOTE | 2019-02-18 18:55 | NURSING ---
pt back from appt, NNO but see physician note on blank order sheet.
--- NOTE | 2019-02-18 19:29 | NURSING ---
pt's daughter told this nurse that pt has dumdum pops in his room, [id number] pt and family on risk involved with PO intake. pt and daughter acknowledged
[2019-02-18] MEDS: Mirtazapine 15 MG Tablet 7.5 MG GT (20:01)
[2019-02-19] MEDS: Allopurinol 300 MG Tablet GT (05:46)
[2019-02-19] MEDS: Levothyroxine 50 MCG Tablet GT (05:46)
[2019-02-19] MEDS: Jevity 1.5. 1,000 ML Bottle 240 ML GT ×2 (05:49→09:11)
[2019-02-19] MEDS: Menthol/Lanolin/Calamine/Znox 113 GM Tube 1 APPLIC TOPICAL (05:56)
[2019-02-19] MEDS: Aspirin 81 MG TAB.CHEW GT (09:11)
[2019-02-19 09:24] VITALS: BP 108/56; PULSE 88; RESP 16; TEMP 36.8; O2SAT 98
[2019-02-19 09:27] VITALS: O2SAT 98
--- NOTE | 2019-02-19 09:43 | NURSING ---
Trach site drsg changed, trach opening much smaller than last week, approx pencil eraser size in diameter. less redness as well. Pt assisted and demonstrated how to do feed bolus and water flush after.
--- NOTE | 2019-02-19 11:25 | CASEMGMT ---
INSURANCE: VM left with insurance informing of pt d/c home on this date 02/19 with home health SN. Auth#[id number] NARESH Butcher
--- NOTE | 2019-02-19 11:39 | CASEMGMT ---
INSURANCE VM left with insurance notifying of d/c on 02/19 with home health SN. Auth# [id number] NARESH Butcher
== END 2019-02-19 10:41 | disposition home health service (06) | DRG 949 ==
PROVIDERS: Admitting Provider Family Medicine Geriatric Medicine; Family Provider Internal Medicine; PCP Internal Medicine; Referring Provider Family Medicine Geriatric Medicine; Visit Provider Family Medicine Geriatric Medicine
DX: Z48.814 Encounter for surgical aftercare following surgery on the teeth or oral cavity (principal); J96.11 Chronic respiratory failure with hypoxia; J95.09 Other tracheostomy complication; E44.0 Moderate protein-calorie malnutrition; Z68.1 Body mass index [BMI] 19.9 or less, adult; J44.9 Chronic obstructive pulmonary disease, unspecified; K21.9 Gastro-esophageal reflux disease without esophagitis; E03.9 Hypothyroidism, unspecified; M1A.9XX0 Chronic gout, unspecified, without tophus (tophi); Z90.3 Acquired absence of stomach [part of]; D75.1 Secondary polycythemia; C04.9 Malignant neoplasm of floor of mouth, unspecified; Y83.8 Other surgical procedures as the cause of abnormal reaction of the patient, or of later complication, without mention of misadventure at the time of the procedure; Z93.1 Gastrostomy status; Z87.891 Personal history of nicotine dependence; Z85.21 Personal history of malignant neoplasm of larynx; E55.9 Vitamin D deficiency, unspecified; Z92.3 Personal history of irradiation
CPT/HCPCS: 36415; 74230; 80048; 85025; 92507; 92526; 92610; 92611; 94640; 97110; 97116; 97162; 97166; 97530; 97535; 97802; 97803; A4216

== ENCOUNTER 2019-02-12 09:22 | Day surgery (SDC) | payer OTHER, SELFPAY ==
[2019-02-12 09:51] VITALS: BP 119/76; PULSE 81; RESP 20; TEMP 36.4; O2SAT 100; BMI 14.6
[2019-02-12] MEDS: Lactated Ringers 1,000 ML 100 ML IV (10:18)
--- NOTE | 2019-02-12 11:07 | HP.PCM_ITS ---
History and Physical Date of Admission: 02/12/19 [facility] Medical Records Department [address] [place] [address] Consultation 02/10/191815 MR#: [id number] Acct: [id number] Name: SABINA FLORES Rep #:[id number] From: Ej Lay MD PCP: Varun Wang MD Status:ADM IN Y Location: [place] [address] Reason for Consult Date of Consultation: 02/10/19 Reason for Consultation: need for feeding access History of Present Illness: The patient is a 79 year old M who failed a swallowing test and I've been consult for EGD and PEG tube placement. The patient has significant history of COPD, GERD, previous peptic ulcer disease with what he describes is half his stomach being removed approximately 40 years previously. He had recently completed radiation treatment and is status post resection of floor of mouth cancer. the patient underwent a composite resection floor of mouth with tongue marginal mandibulectomy and extensive neck dissection along with free flap reconstruction and tracheostomy on January 06, 2019. he had revision of the flap for free flap congestion on January 12, 2019. His tracheostomy was removed in the office earlier this week. After failing his cookie swallow was recommended he have a PEG tube placed. the patient has a history of esophageal dilatation in the past.he has history of asthma tobacco use, superior mesenteric vein thrombosis, the carcinoma larynx, he is status post partial gastrectomy in the past with a history of alcoholism. His diagnosis of myeloproliferative disorder. he has had previous colonoscopies and previous esophageal dilatations. His surgical procedure for bleeding ulcer was in 1969. He notes allergies to doxycycline. 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 current use of anticoagulant (Chronic) Gout (Chronic) gouty mass dorsal radial aspect PIP joint left index finger Chronic respiratory failure with hypoxia (Chronic) Iron deficiency anemia (Chronic) Hyperuricemia (Chronic) Former smoker (Chronic) Benign esophageal stricture (Chronic) Malnutrition of moderate degree (Chronic) Leukocytosis (Chronic) Dysphagia (Chronic) Hypersomnia (Chronic) COPD (chronic obstructive pulmonary disease) (Chronic) FEV1 52% History of peptic ulcer disease (Chronic) Medical History: Medical History (Last Reviewed 11/27/18 @ 09:51 by Dary Thomas) COPD (chronic obstructive pulmonary disease) (Chronic) J44.9 FEV1 52% History of peptic ulcer disease (Chronic) Z87.11 Adenomatous colon polyp D12.6 Gout M10.9 History of cataract Z86.69 Hypoxemia R09.02 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 Pancreatitis K85.90 Polycythemia D75.1 Protein calorie malnutrition E46 Thrombocytosis D47.3 Chronic back pain M54.9, G89.29 Iron deficiency anemia D50.9 Stage 2 moderate COPD by GOLD classification J44.9 Tobacco use Z72.0 Elevated LFTs (Resolved) R79.89 Pneumonia (Resolved) J18.9 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 Allergies doxycycline Adverse Reaction (Verified 11/27/18 09:50) PANCREATITIS Home Medications: Ambulatory Orders Medication Instructions Recorded Albuterol Inhaler [Ventolin Hfa] 2 puff INHALATION Q6H PRN PRN 01/02/14 Allopurinol [Zyloprim] 300 mg PO DAILY 09/23/17 Aspirin [Aspirin, Baby] 81 mg PO DAILY 05/03/18 Cholecalciferol (Vitamin D3) 1,000 unit PO DAILY 05/03/18 [Vitamin D3] Ondansetron [Ondansetron Odt] 4 mg PO Q8H PRN PRN 05/03/18 Albuterol Aerosols [Ventolin 2.5 mg INHALATION Q2H PRN PRN 01/30/19 Aerosols] Chlorhexidine [(None)] 15 ml PO Q6H PRN 01/30/19 Ciprofloxacin [Cipro] 500 mg PO BID 01/30/19 Fluticasone 110 Mcg [Flovent (SP)] 1 puff INHALATION BID 01/30/19 Hydroxyurea [Hydrea] 500 mg PO DAILY 01/30/19 Levothyroxine [Synthroid] 50 mcg PO DAILY 01/30/19 Tiotropium Br/Olodaterol HCl 2 puff INHALATION DAILY 01/30/19 [Stiolto Respimat] Surgical History: Surgical History (Last Reviewed 11/27/18 @ 09:51 by Dary Thomas) Esophageal dilatation K22.8 2004 Floor of mouth resection, sialadochoplasty 2017 H/O colonoscopy Z98.890 2015, 2012, 2003 History of esophagogastroduodenoscopy (EGD) Z98.890 2012 2003 History of laryngoscopy Z98.890 2014 S/P partial gastrectomy Z90.3 1970 Surgical History: - - dysplasia of tongue, ulcer surgery with some removal of stomach? vocal cord lesion. Psychiatric History: No pertinent psych hx Lives: Spouse/ Significant Other Smoking Status: Former smoker Tobacco Use: Non-smoker Alcohol: Occasional Drugs: None - *Family History Maternal Family History: Family History (Last Reviewed 11/27/18 @ 09:51 by Dary Thomas) Brother Brain cancer Bone cancer Brain tumor Father CAD (coronary artery disease) Heart disease History Items: - - No cardiac hx Paternal Family History: Family History (Last Reviewed 11/27/18 @ 09:51 by Dary Thomas) Brother Brain cancer Bone cancer Brain tumor Father CAD (coronary artery disease) Heart disease History Items: No pertinent history Patient Problems: Active and Suspected Problems (Last Reviewed 11/27/18 @ 09:51 by Dary Thomas) Debility (Acute) Tracheostomy present (Acute) - Physical Exam General: Alert, Oriented x3 Oral: - - postsurgical changes Neck: - - postsurgical changes with tracheostomy site healing Lungs: - - coarse breath sounds Cardiovascular: Regular rate, Regular Rhythm Abdomen: Bowel Sounds Present, Soft, Non Tender, - - well-healed transverse incision consistent with previous gastric resection Vital Signs Temp Pulse Resp BP Pulse Ox 97.9 F 92 18 109/64 93 02/10/19 15:34 02/10/19 15:34 02/10/19 15:34 02/10/19 15:34 02/10/19 15:34 Oxygen Flow Rate (L/min) 1 Oxygen Delivery Method Nasal Cannula Weight: 50.604 kg Body Mass Index (BMI) 16.7 Intake and Output for Last 24 Hours 02/08/19 02/09/19 02/10/19 23:59 23:59 23:59 Intake Total 600 / 600 580 / 580 240 / 240 Balance 600 / 600 580 / 580 240 / 240 Assessment/Plan All Active Problems (Last Reviewed 11/27/18 @ 09:51 by Dary Thomas) Debility (Acute) Tracheostomy present (Acute) Sepsis (Acute) JULIANA (acute kidney injury) (Resolved) Elevated LFTs (Resolved) Foreign body in esophagus (Resolved) Neoplasm of unspecified behavior of bone, soft tissue, and skin (Resolved) Osteomyelitis of finger of left hand (Resolved) Pneumonia (Resolved) floor of mouth cancer, complex reconstruction, failed swallowing test, need for feeding access I plan to perform EGD and attempted PEG tube placement. This may be challenging due to his previous hemigastrectomy. The patient understands the risks, benefits, risk of complications and planned course of events and consents to the planned procedure. He has additional testing going on tomorrow. We'll plan for EGD and PEG tube placement on Sunday. He will get 2 g of ampicillin pre procedure. 02/10/191821 <Electronically signed by Ej aguayo MD> Date _ Ej Lay MD Cosigner Signature (if applicable): Date CC: Ej Lay MD; Freddy Quinn MD; Varun Wang MD ~ Signed I have re-examined the patient. There are no clinical changes since date of exam
--- NOTE | 2019-02-12 11:34 | OP.ENDO_ITS ---
02/12/2019 Varun Wang [address] [place] [address] Re : Upper GI endoscopy procedure for Haresh Brar Dear Dr. Wang This procedure was performed on Tuesday, February 12, 2019. My impressions and recommendations are as follows: Impressions : - Normal examined jejunum. - Normal. - Patent Billroth I gastroduodenostomy was found, characterized by healthy appearing mucosa. - Intact gastrostomy with a patent G-tube present characterized by healthy appearing mucosa. - Small hiatal hernia. - Normal esophagus. - An externally removable PEG placement was successfully completed. - No specimens collected. Recommendations : - Please follow the post-PEG recommendations including: Nutrition consult for formula and volume, may use PEG today for meds and water and start using PEG today. - Continue present medications. My findings are described in the full procedure note, which is enclosed. If I can be of further assistance, please feel free to contact me at Doctor phone number(s): , Work: . Sincerely, Ej Lay MD 02/12/2019 11:34:12 AM This report has been signed electronically.
[2019-02-12 11:37] VITALS: BP 119/76; BP 87/51; PULSE 87; RESP 18; TEMP 36.8; O2SAT 98
[2019-02-12 11:42] VITALS: BP 119/76; BP 87/54; PULSE 86; RESP 19; O2SAT 98
[2019-02-12 11:50] VITALS: BP 119/76; BP 91/63; PULSE 85; RESP 18; O2SAT 97
[2019-02-12 11:57] VITALS: BP 110/66; BP 119/76; PULSE 85; RESP 17; TEMP 36.9; O2SAT 97
[2019-02-12 13:10] VITALS: BP 119/76
== END 2019-02-12 13:10 | disposition skilled nursing facility (03) ==
LOC: EN 09:25 → AC 09:25
PROVIDERS: Family Provider Internal Medicine; PCP Internal Medicine; Referring Provider Internal Medicine; Visit Provider Surgery
PROC: 0DJ08ZZ Inspection of Upper Intestinal Tract, Via Natural or Artificial Opening Endoscopic (ICD-10-PCS; CPT 43235; principal; 2019-02-12 10:25)
DX: K44.9 Diaphragmatic hernia without obstruction or gangrene (principal); Z93.1 Gastrostomy status; J44.9 Chronic obstructive pulmonary disease, unspecified; K21.9 Gastro-esophageal reflux disease without esophagitis; C94.6 Myelodysplastic disease, not elsewhere classified; Z87.11 Personal history of peptic ulcer disease; Z92.3 Personal history of irradiation; Z85.818 Personal history of malignant neoplasm of other sites of lip, oral cavity, and pharynx; Z93.0 Tracheostomy status; Z90.3 Acquired absence of stomach [part of]; Z87.891 Personal history of nicotine dependence; F10.21 Alcohol dependence, in remission; Z85.21 Personal history of malignant neoplasm of larynx; E03.9 Hypothyroidism, unspecified; Z79.01 Long term (current) use of anticoagulants; Z79.82 Long term (current) use of aspirin; Z82.49 Family history of ischemic heart disease and other diseases of the circulatory system; Z88.1 Allergy status to other antibiotic agents; K22.2 Esophageal obstruction; M10.9 Gout, unspecified; J96.11 Chronic respiratory failure with hypoxia; E44.0 Moderate protein-calorie malnutrition; Z86.010 Personal history of colon polyps
CPT/HCPCS: 43246; J7120; J2405

== ENCOUNTER 2019-07-15 15:39 | Emergency (ER) | payer OTHER, SELFPAY ==
[2019-07-15 15:40] VITALS: BP 91/49; PULSE 78; RESP 26; TEMP 36.1; O2SAT 100; BMI 14.6
[2019-07-15 15:52] VITALS: O2SAT 98
--- NOTE | 2019-07-15 16:05 | EKG12_ITS ---
Test Reason : Blood Pressure : / mmHG Vent. Rate : 106 BPM Atrial Rate : 107 BPM P-R Int : 158 ms QRS Dur : 072 ms QT Int : 308 ms P-R-T Axes : 072 -28 085 degrees QTc Int : 409 ms Sinus tachycardia Low voltage QRS Inferior infarct , age undetermined Cannot rule out Anterior infarct , age undetermined Abnormal ECG Confirmed by INDIO MARQUEZ, BETSY ([id number]), newspaper managing editor JOAO SONG ([id number]) on 07/21/2019 10:52:51 AM Referred By: JOSÉ MIGUEL Confirmed By:BETSY BORJAS MD
--- NOTE | 2019-07-15 16:05 | RAD_ITS ---
STUDY: X-RAY CHEST REASON FOR EXAM: Male, 79 years old. Cough, shortness of breath, hx esophageal ca TECHNIQUE: PA and lateral views of the chest. COMPARISON: 05/03/2018 FINDINGS: There are identified postsurgical changes Cardiac silhouette unremarkable. Pulmonary vascularity unremarkable. Aorta tortuous. No focal airspace opacities. No pleural effusions. The lungs are hyperinflated. Upper abdomen unremarkable. Osseous structures intact. No pneumothorax. RAD/Chest PA and Lateral IMPRESSION: Hyperinflated lungs. No acute cardiopulmonary findings Electronically Signed: Israel Pena, at 17:23 EDT Tel , Service support ,
--- NOTE | 2019-07-15 16:06 | ED.VIS.DYS ---
History of Present Illness Chief Complaint: Shortness of Breath Informant: Patient Onset: 3- Activity at onset: Light Activity Timing: Waxes and wanes Quality: Wheezing Current Severity: Mild Maximum Severity: Moderate Worsened by: Coughing, Exertion Relieved by: Oxygen, Rest Associated Symptoms: Clear sputum, Cough, Sore throat. Negative for: Bloody Sputum, Ear pain, Fever Chest Pain: None Narrative: Patient states he has been more short of breath than usual for the past 3 to 4 days. He has had a productive cough, he has a history of COPD and is on 2 L nasal cannula of oxygen at home. He has oral cancer and is getting radiation for it. Even though he denies feeling very short of breath at rest, they were concerned that he looked more short of breath than usual and forced him to come to the emergency department today despite him feeling like he does not need it. He has more shortness of breath when he exerts himself. He is very mildly short of breath at rest. Denies any chest discomfort, fevers, swelling in his legs, orthopnea. He has oral pain from his cancer. That is no different or worse. No recent travel out of the area. No specific exposure to a covid-19 patient. - Past Medical History (1) Debility Status: Chronic (2) Benign esophageal stricture Status: Chronic (3) COPD (chronic obstructive pulmonary disease) Status: Chronic Comment: FEV1 52% (4) Dysphagia Status: Chronic (5) GERD (gastroesophageal reflux disease) Status: Chronic (6) Gout Status: Chronic Comment: gouty mass dorsal radial aspect PIP joint left index finger (7) History of peptic ulcer disease Status: Chronic (8) Hypersomnia Status: Chronic (9) Iron deficiency anemia Status: Chronic (10) Squamous cell carcinoma of mouth Status: Chronic (11) Throat cancer Status: Chronic (12) Vocal cord cancer Status: Resolved Past Medical History - Allergies and Home Meds Allergies/Adverse Reactions: Allergies doxycycline Adverse Reaction (Verified 07/15/19 15:40) PANCREATITIS Primary Care Physician: Varun Wang MD [Primary Care Provider] - Surgical History: - - dysplasia of tongue, ulcer surgery with some removal of stomach? vocal cord lesion. Lives: Spouse/ Significant Other Smoking Status: Former smoker - Family History Maternal Family History: Family History (Last Reviewed 05/19/19 @ 09:49 by ZAN Smith) Brother Brain cancer Bone cancer Brain tumor Father CAD (coronary artery disease) Heart disease Family History: Reports: - - No cardiac hx Paternal Family History: Family History (Last Reviewed 05/19/19 @ 09:49 by ZAN Smith) Brother Brain cancer Bone cancer Brain tumor Father CAD (coronary artery disease) Heart disease Family History: Reports: No pertinent history Review of Systems General: Reports: Malaise. Denies: Chills, Fever, Sweats Eyes: Denies: Visual changes - bilaterally, Diplopia ENT: Reports: Sore throat. Denies: Bilateral ear pain, Rhinorrhea Cardiovascular: Denies: Chest pain, Palpitations, Heart racing Respiratory: Reports: Dyspnea, Cough, Sputum, Dyspnea on exertion. Denies: Orthopnea Gastrointestinal: Denies: Abdominal pain, Nausea, Vomiting, Diarrhea, Melena, Hematochezia Genitourinary: Denies: Dysuria, Hematuria, Frequency Musculoskeletal: Denies: Neck pain, Back pain, Swelling, Extremity Pain Skin: Denies: Rash, Wounds Neurological: Denies: Headache, Weakness, Numbness Physical Exam Vital Signs/Narrative: Vital Signs Temp Pulse Resp BP Pulse Ox 07/15/19 15:40 97.0 F L 78 26 H 91/49 L 100 Inital Vital Signs reviewed: Yes General: Well nourished, Well developed, No Acute Distress Head: Normocephalic, Atraumatic Eyes: Perrl, EOMI ENT: Moist mucous membranes, No rhinorrhea, - - Posterior oropharynx erythematous. No trismus. Normal tongue. Neck: Supple, Nontender, No lymphadenopathy, No JVD Cardiovascular: Regular rate, Regular rhythm, - - Very faint heart sounds Respiratory: No distress, CTA bilaterally, Chest nontender, Diminished - Throughout, symmetrically Abdomen: Soft, Nontender, Nondistended, Normal bowel sounds Back: Nontender, Normal Inspection Extremities: Nontender, No edema. Negative for: Calf Tenderness Skin: Normal color, No rash, No Trauma Neurological: Alert, Oriented x3, Cranial nerves II-XII grossly intact, Normal Strength, Normal Sensation Psychological: Normal affect, Normal Mood Diagnostic/Tx/Re-eval Clinical Impression(s) from Imaging Studies Chest X-Ray 07/15/19 16:05 IMPRESSION: Hyperinflated lungs. No acute cardiopulmonary findings Electronically Signed: Israel Pena, at 17:23 EDT Tel , Service support , Treatment - Dyspnea: Albuterol, Atrovent Repeat Evaluation: Improved - Medical Decision Making On my interpretation, 2 views of the chest x-ray show left lower lobe infiltrate that may or may not be scarring that is chronic versus acute consolidation (radiology interpretation returned prior to discharge showing no acute disease, see above). Patient is adamant he does not want to be admitted and wants to be discharged home. He feels better after a duo nebulizer treatment and on his home oxygen is 98%. Will place him on azithromycin, as this is indicated regardless to either treat pneumonia or to prevent bacterial superinfection, he does not want steroids and does not feel like his dyspnea/wheezing is bad enough to warrant steroids, and we discussed reasons to return. Additionally, he has had no recent travel lately. Patient does not have COVID-19 exposure and is not critically ill or clinically septic, vital signs are stable without hypoxia, and at this time does not meet current [facility] requirements for testing for COVID-19. ED Disposition - Plan for ED Patient: Disposition: Home or Assisted Living Diagnosis: COPD with acute exacerbation, Acute bronchitis Instructions: Copd Flare, BRONCHITIS, Antiobiotic Treatment (Adult) Prescriptions: Azithromycin 250 mg PO DAILY #4 tab Transmission Status: Pending to [facility] Referrals: Varun Wang MD [Primary Care Provider] - 3-5 Days if not improving
[2019-07-15 16:15] VITALS: PULSE 70; RESP 24
[2019-07-15 17:18] VITALS: BP 91/86; PULSE 79; RESP 18; O2SAT 98
[2019-07-15 17:24] VITALS: BP 91/46; PULSE 79; RESP 20; O2SAT 98
[2019-07-15] MEDS: Azithromycin 250 MG Tablet 500 MG GT (17:39)
== END 2019-07-15 17:50 | disposition home or self-care (01) ==
PROVIDERS: Emergency Provider Emergency Medicine; PCP Internal Medicine
DX: J44.1 Chronic obstructive pulmonary disease with (acute) exacerbation (principal); J20.9 Acute bronchitis, unspecified; J44.0 Chronic obstructive pulmonary disease with (acute) lower respiratory infection; K21.9 Gastro-esophageal reflux disease without esophagitis; M10.9 Gout, unspecified; Z82.49 Family history of ischemic heart disease and other diseases of the circulatory system; Z85.01 Personal history of malignant neoplasm of esophagus; Z85.21 Personal history of malignant neoplasm of larynx; Z87.11 Personal history of peptic ulcer disease; Z87.891 Personal history of nicotine dependence; Z88.1 Allergy status to other antibiotic agents; Z99.81 Dependence on supplemental oxygen; K22.2 Esophageal obstruction; R53.81 Other malaise
CPT/HCPCS: 71046; 93005; 94640; 99284

== ENCOUNTER 2019-07-18 14:04 | Inpatient (IN) | payer OTHER, MEDICARE, SELFPAY ==
[2019-07-18] VITALS (13 sets, daily range): BP systolic 87–105; BP diastolic 48–67; PULSE 80–112; RESP 14–28; TEMP 36.1–37; O2SAT 80–100; BMI 14.2; BMI 13.2
--- NOTE | 2019-07-18 14:15 | EKG12_ITS ---
Test Reason : Blood Pressure : / mmHG Vent. Rate : 072 BPM Atrial Rate : 072 BPM P-R Int : 178 ms QRS Dur : 082 ms QT Int : 352 ms P-R-T Axes : 075 -34 078 degrees QTc Int : 385 ms Normal sinus rhythm Left axis deviation Low voltage QRS Inferior infarct (cited on or before 03-MAY-2018) Cannot rule out Anterior infarct , age undetermined Abnormal ECG Confirmed by RADHA MARQUEZ, SALBAD[place] ([id number]), purchasing expeditor JOAO SONG ([id number]) on 07/21/2019 11:17:02 AM Referred By: FRANCESCA Confirmed By:GAMALIEL GARCIA MD
--- NOTE | 2019-07-18 14:18 | ED.DCSUM_ITS ---
History of Present Illness Chief Complaint: Shortness of Breath Narrative: 79-year-old male with a history of COPD and some sort of oral malignancy (denies active chemotherapy) presents with shortness of breath. He was hypoxic in the 70s on EMS arrival. He is on 2 L of nasal cannula oxygen chronically. He has apparently been coughing but no history of fever/chills. He has a PEG tube and does not take anything orally. He is a former smoker. Past Medical History - Allergies and Home Meds Allergies/Adverse Reactions: Allergies doxycycline Adverse Reaction (Verified 07/15/19 15:40) PANCREATITIS Primary Care Physician: Varun Wang MD [Primary Care Provider] - Prior records reviewed: Yes Surgical History: - - dysplasia of tongue, ulcer surgery with some removal of stomach? vocal cord lesion. Smoking Status: Former smoker Alcohol: Occasional - Family History Maternal Family History: Family History (Last Reviewed 05/19/19 @ 09:49 by ZAN Smith) Brother Brain cancer Bone cancer Brain tumor Father CAD (coronary artery disease) Heart disease Family History: Reports: - - No cardiac hx Paternal Family History: Family History (Last Reviewed 05/19/19 @ 09:49 by ZAN Smith) Brother Brain cancer Bone cancer Brain tumor Father CAD (coronary artery disease) Heart disease Family History: Reports: No pertinent history Review of Systems ROS: Unable to Obtain Physical Exam Vital Signs/Narrative: Vital Signs Temp Pulse Resp BP Pulse Ox 07/18/19 14:14 97 F L 106 H 26 H 101/61 90 07/18/19 14:07 97 F L 89 27 H 103/67 80 Inital Vital Signs reviewed: Yes General: Cachectic, Unkempt Eyes: Perrl, Pale conjunctiva ENT: Dry mucous membranes Neck: Supple Cardiovascular: Regular rate, Regular rhythm, No murmurs, Normal S1, Normal S2 Respiratory: Decreased Air Movement Abdomen: Soft, Nontender Back: Nontender Extremities: No edema Skin: Normal color, No rash Neurological: Alert Psychological: Depressed Diagnostic/Tx/Re-eval - Rhythm Strip Rhythm Strip: Sinus Tach Rate: 106 Ectopy: None - Medical Decision Making He has a white blood cell count of 24,000. Platelets are in the mid 900,000. He has a progressive left lower lobe infiltrate on chest x-ray and is requiring increased oxygen to maintain his saturations. He does not appear to require intubation but he does appear critically ill and I suspect his hospitalization will be greater than 2 midnights for completion of his care so I do feel he meets criteria for full admission. He has multiple comorbidities. He was treated with IV Zosyn and vancomycin and blood cultures were obtained. He was given a small fluid bolus but his blood pressure remained stable. I have paged the hospitalist to arrange admission. - Critical Care Time Critical care time (excluding procedures): 30-74 minutes, Discussing w/Patient &/or Family/Industrial Real Estate Agent, Discussing w/Consultants, Arranging Admission or Transfer, Performing Direct Patient Care at Bedside ED Disposition - Plan for ED Patient: Disposition: Acute Care Hospital [facility] Diagnosis: Sepsis, Healthcare-associated pneumonia, Altered mental status, Hypoxia Referrals: Varun Wang MD [Primary Care Provider] -
--- NOTE | 2019-07-18 14:26 | RAD_ITS ---
STUDY: X-RAY CHEST REASON FOR EXAM: Male, 79 years old. TO ED BY EMS FROM PCP FOR WORSENING DYSPNEA. SOME CONFUSION PER EMS, SPO2 70 ON ROOM AIR. USUALLY WEARS 2L HOME O2. HX OF ORAL CA. TECHNIQUE: Single AP portable view of the chest. COMPARISON: Comparison is made with prior examination July 15, 2019. FINDINGS: EKG electrodes are seen. Surgical clips are seen in the right cervical region. Hyperinflation. Since prior study, there has been progressive infiltration superimposed left basilar scarring. Normal size heart. Normal mediastinum and malia. Normal visualized pulmonary arteries. There is atherosclerotic calcification of the aortic arch with tortuosity. There is demineralization of the osseous structures. Normal visualized ribs, clavicles, and shoulders. A gastrostomy tube is in situ. RAD/Chest 1 View (Portable) IMPRESSION: There is progressive infiltration of the left lower superimposed on scarring. Electronically Signed: Jr Desai, at 15:12 EDT , Service support ,
[2019-07-18] MEDS: MethylPREDNISolone 125 MG/2 ML Vial IV (14:27)
[2019-07-18 14:37] LABS: Absolute Lymphocyte Count 0.74 X10^3/uL (0.83-4.51); Absolute Neutrophil Count 20.8 X10^3/uL (2.0-7.7); Basophil# 0.55 X10^3/uL; Basophil% 2.3 % (0-1); Eosinophil# 0.46 X10^3/uL; Eosinophils% 1.9 % (0-5); Hematocrit 54.7 % (40-54); Hemoglobin 16.6 g/dL (13.0-16.5); Lymphocyte # 0.74 X10^3/ul (4.0); Lymphocyte % 3.1 % (19-41); Mean Corp Hgb Conc 30.3 g/dL (32-36); Mean Corpuscular Hgb 25.5 pg (27.0-32.0); Mean Corpuscular Volume 84.2 fL (80-94); Mean Platelet Vol. 9.9 fl (6.2-12.0); Monocyte# 1.23 X10^3/uL; Monocyte% 5.1 % (0-10); NRBC Flagged by Analyzer 0 % (0-5); Neutrophil # 20.78 X10^3/uL (2.7-7.7); Neutrophil % 86.6 % (47-70); POSITIVE COUNT YES; POSITIVE DIFFERENTIAL YES; RBC Distribution Width CV 18.9 % (11.6-14.6); RBC Distribution Width SD 52.3 fl (35.1-43.9)
[2019-07-18 14:57] LABS: Differential Indicated SCAN CRITERIA MET; Platelet Count 978 K/mm3 (150-450)
[2019-07-18 15:00] LABS: AST(SGOT) 13 U/L (15-37); Alanine Aminotransfer ALT/SGPT 12 U/L (16-61); Albumin, Serum 3.7 g/dL (3.2-5.0); Alkaline Phosphatase 122 U/L (45-117); Anion Gap 11 (5-15); BUN 49 mg/dL (7-18); Bilirubin, Direct 0.22 mg/dL (0.00-0.30); Calcium,Total 9.7 mg/dL (8.5-10.1); Chloride 104 mmol/L (98-107); Creatinine, Serum 1.44 mg/dL (0.70-1.30); EST Glomerular Filtration Rate 50 mL/min (>60); Est Glom Filt Rate - Afr Amer 61 mL/min (>60); Globulin 4.2 g/dL (2.2-4.2); Glucose 97 mg/dL (74-106); Potassium 5.1 mmol/L (3.5-5.1); Protein, Total 7.9 g/dL (6.4-8.2); Sodium Level 135 mmol/L (136-145)
[2019-07-18 15:01] LABS: Lactic Acid 1.9 mmol/L (0.4-1.9)
[2019-07-18] MEDS: Albuterol 2.5 MG/3 ML VIAL.NEB. INHALATION ×3 (15:04)
[2019-07-18] MEDS: Ipratropium/Albuterol Sulfate 3 ML AMPUL.NEB INHALATION (15:04)
[2019-07-18 15:38] LABS: Platelet Estimate MKD INC (ADEQ); Red Cell Morphology NORM C+C NORMAL (NORM C&C)
--- NOTE | 2019-07-18 16:12 | PCM.HP.STD ---
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 He has been sick for about 5 days. He denies sick contacts or recent travel. He lives with his who is healthy. He has had chills, nonproductive cough, and increasing SOB. He denies wheezing. He does not eat, but he does try to drink small amounts daily. No nausea/vomiting/diarrhea. No CP. No hemoptysis. In the ER he appears to have pna on CXR. He had HCAP last April with metapneumovirus. He is a patient of [facility]. He wishes to remain full code at this time. 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) Gout (Chronic) gouty mass dorsal radial aspect PIP joint left index finger Chronic respiratory failure with hypoxia (Chronic) Iron deficiency anemia (Chronic) Hyperuricemia (Chronic) Former smoker (Chronic) Benign esophageal stricture (Chronic) Malnutrition of moderate degree (Chronic) Leukocytosis (Chronic) Dysphagia (Chronic) Hypersomnia (Chronic) COPD (chronic obstructive pulmonary disease) (Chronic) FEV1 52% History of peptic ulcer disease (Chronic) Medical History: Medical History (Last Reviewed 05/19/19 @ 09:49 by ZAN Smith) COPD (chronic obstructive pulmonary disease) (Chronic) J44.9 FEV1 52% History of peptic ulcer disease (Chronic) Z87.11 Adenomatous colon polyp D12.6 Gout M10.9 History of cataract Z86.69 Hypoxemia R09.02 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 Pancreatitis K85.90 Polycythemia D75.1 Protein calorie malnutrition E46 Thrombocytosis D47.3 Chronic back pain M54.9, G89.29 Iron deficiency anemia D50.9 Stage 2 moderate COPD by GOLD classification J44.9 Tobacco use Z72.0 Elevated LFTs (Resolved) R79.89 Pneumonia (Resolved) J18.9 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 Allergies doxycycline Adverse Reaction (Verified 07/15/19 15:40) PANCREATITIS Home Medications: Ambulatory Orders Medication Instructions Recorded Albuterol Inhaler [Ventolin Hfa] 2 puff INHALATION Q6H PRN PRN 14 Allopurinol [Zyloprim] 300 mg PO DAILY 09/23/17 Aspirin [Aspirin, Baby] 81 mg PO DAILY 05/03/18 Cholecalciferol (Vitamin D3) 1,000 unit PO DAILY 05/03/18 [Vitamin D3] Ondansetron [Ondansetron Odt] 4 mg PO Q8H PRN PRN 05/03/18 Fluticasone 110 Mcg [Flovent 110 1 puff INHALATION BID 01/30/19 Mcg] Hydroxyurea [Hydrea] 500 mg PO DAILY 01/30/19 Jevity 1.5 240 ml GT 0700,1000,1300 #10 bottle 02/17/19 Jevity 1.5 240 ml GT 1600,1900 #10 bottle 02/17/19 Levothyroxine [Synthroid] 50 mcg PO DAILY #30 tab 02/17/19 Menthol/Lanolin/Calamine/Znox 1 applic TOPICAL TID tube 02/17/19 [Calmoseptine Ointment] Mineral Oil/Petrolatum,White 1 applic TOPICAL QHS jar 02/17/19 [Eucerin] Mirtazapine [Remeron] 7.5 mg GT QHS #30 tab 02/17/19 Tiotropium Br/Olodaterol HCl 2 puff INHALATION DAILY #1 02/17/19 [Stiolto Respimat Inhal [place]] mist.inhal Azithromycin 250 mg PO DAILY #4 tab 07/15/19 Surgical History: Surgical History (Last Reviewed 05/19/19 @ 09:49 by ZAN Smith) Esophageal dilatation K22.8 2004 Floor of mouth resection, sialadochoplasty 2017 H/O colonoscopy Z98.890 2015, 2012, 2003 History of esophagogastroduodenoscopy (EGD) Z98.890 2012 2003 History of laryngoscopy Z98.890 2013 S/P partial gastrectomy Z90.3 1970 Surgical History: - - dysplasia of tongue, ulcer surgery with some removal of stomach? vocal cord lesion, PEG tube placement Psychiatric History: No pertinent psych hx Lives: Spouse/ Significant Other Smoking Status: Former smoker Tobacco Use: Non-smoker Alcohol: Occasional Drugs: None - *Family History Maternal Family History: Family History (Last Reviewed 07/18/19 @ 16:20 by BLAKE Deutsch) Brother Brain cancer Bone cancer Brain tumor Father CAD (coronary artery disease) Heart disease History Items: - - No cardiac hx Paternal Family History: Family History (Last Reviewed 07/18/19 @ 16:20 by BLAKE Deutsch) Brother Brain cancer Bone cancer Brain tumor Father CAD (coronary artery disease) Heart disease History Items: No pertinent history Review of Systems Constitutional: Reports: Chills, Weakness, Fatigue. Denies: Fever, Weight Change HEENT: Denies: Head Aches, Sinus Congestion, Sinus Drainage Cardiovascular: Denies: Chest Pain, Chest Pressure, Chest Tightness, Heaviness, Palpitations Respiratory: Reports: Cough, Shortness of Breath, Shortness of breath at rest, Shortness of breath upon exertion. Denies: Hemoptysis, Pleuritic Pain, Sputum production, Wheezing Gastrointestinal: Denies: Abdominal Pain, Diarrhea, Nausea, Vomiting Genitourinary: Denies: Dysuria Musculoskeletal: Denies: Joint Pain, Joint Tenderness Skin: Denies: Rash, Wounds Neurological: Denies: Numbness, Tingling, Focal weakness Psychiatric: Denies: Anxiety, Depression, Homicidal Ideations, Suicidal Ideations Hematologic/ Lymphatic: Denies: Easy Bruising, Easy Bleeding VTE Information - Inpt Only VTE Present on Admission: No VTE Mechan Device Prophylaxis: None VTE Pharm Prophylaxis ordered?: Yes Patient Problems: Active and Suspected Problems (Last Reviewed 05/19/19 @ 09:49 by Rosie Perea, PAPER INSPECTOR-C) Healthcare-associated pneumonia (Acute) Altered mental status (Acute) Hypoxia (Acute) Severe sepsis (Acute) Pneumonia (Acute) Sepsis (Acute) - Physical Exam Vitals/I&O's: Vital Signs Temp Pulse Resp BP Pulse Ox 98.6 F 112 H 27 H 105/51 L 97 07/18/19 16:06 07/18/19 16:06 07/18/19 16:06 07/18/19 16:06 07/18/19 16:06 Oxygen Flow Rate (L/min) 4 Oxygen Delivery Method Nasal Cannula Weight: 102 lb 4.712 oz Body Mass Index (BMI) 14.2 Intake and Output for Last 24 Hours 07/16/19 07/17/19 07/18/19 23:59 23:59 23:59 Intake Total 500 / 500 Balance 500 / 500 General: Alert, Oriented x3, Cooperative, - - cachectic HEENT: Atraumatic, PERRLA, EOMI, Normocephalic Neck: Supple, No JVD, Negative Carotid Bruits, - - former tracheostomy sighte appears noninfected Lungs: Diminished - severely Cardiovascular: Regular rate, No murmurs Abdomen: Bowel Sounds Present, Soft, Non Tender Extremities: No edema, Capillary Refill Less than 3 Seconds Skin: No rashes, No breakdown Musculoskeletal: No Tenderness to Palpation of Joints or Extremities Neurological: Cranial nerves II-XII grossly intact Psych/Mental Status: Normal Affect, Appropriate, Alert and oriented to time, place, person, mood and affect Laboratory Results 07/18/19 14:24: WBC 24.0 H, RBC 6.50 H, Hgb 16.6 H, Hct 54.7 H, MCV 84.2, MCH 25.5 L, MCHC 30.3 L, RDW Std Deviation 52.3 H, RDW Coeff of Alexey 18.9 H, Plt Count 978 H*, MPV 9.9, Immature Gran % (Auto) 1.000 H, Neut % (Auto) 86.6 H, Lymph % (Auto) 3.1 L, [place] % (Auto) 5.1, Eos % (Auto) 1.9, Baso % (Auto) 2.3 H, Absolute Neuts (auto) 20.8 H, Absolute Lymphs (auto) 0.74 L, Nucleated RBC % 0, Differential Comment , Diff Path Review May martin, Platelet Estimate MKD INC, RBC Morphology NORM C+C 07/18/19 14:24: Sodium 135 L, Potassium 5.1, Chloride 104, Carbon Dioxide 20.0 L, Anion Gap 11, BUN 49 H, Creatinine 1.44 H, Estim Creat Clear Calc 27.30, Est GFR (MDRD) Af Amer 61, Est GFR (MDRD) Non-Af 50 L, BUN/Creatinine Ratio 34.0 H, Glucose 97, Calcium 9.7, Total Bilirubin 0.80, Direct Bilirubin 0.22, AST 13 L, ALT 12 L, Alkaline Phosphatase 122 H, Troponin I < 0.015, Total Protein 7.9, Albumin 3.7, Globulin 4.2 07/18/19 14:24: Lactic Acid 1.9 07/18/19 14:54: PT Cancelled, INR Cancelled Current Medications Sodium Chloride () 500 mls @ 999 mls/hr IV .Q31M ONE Last Infusion: 07/18/19 15:23 Dose: Infused Documented by: Vancomycin HCl (Vancomycin) 1,000 mg in 200 mls @ 200 mls/hr IV NOW STA Stop: 07/18/19 16:27 Assessment/Plan All Active Problems (Last Reviewed 05/19/19 @ 09:49 by Rosie Perea, PAPER INSPECTOR-C) Tracheostomy present (Acute) Vocal cord cancer (Resolved) Tracheostomy complication (Acute) Healthcare-associated pneumonia (Acute) Altered mental status (Acute) Hypoxia (Acute) Severe sepsis (Acute) Pneumonia (Acute) Sepsis (Acute) JULIANA (acute kidney injury) (Resolved) Elevated LFTs (Resolved) Foreign body in esophagus (Resolved) Neoplasm of unspecified behavior of bone, soft tissue, and skin (Resolved) Osteomyelitis of finger of left hand (Resolved) Pneumonia (Resolved) 1. Acute sepsis 2/2 Acute pneumonia, with acute hypoxic respiratory failure - 5 days of SOB, chills, cough. No sick contacts. + leukcoytosis, tachypnea, tachycardia. Negative lactate. No recent hospitalization. There may be a component of aspiration as he has dysphagia and a feeding tube, still drinks some liquids. Received Vanc/Zosyn in ER. Will continue. Check nasal mrsa. Consult pulmonology. Start pep therapy. Obtain blood, sputum cx, respiratory viral panel. 2. COPD - doubt acute exacerbation. continue aerosols, incentive spirometer. 3. Severe malnutrition - has feeding tube. dietary eval. 4. Dysphagia - NPO, PEG tube in place, consult speech therapy. he occasional has liquids 5. Former vocal cord cancer, former trach, in remission. 6. Chronic polycythemia, etiology unclear. Trend CBC. 7. Hx GERD, esophageal strictures, bleeding peptic ulcer 8. Elevated Cr - baseline unclear. trend. IV fluids. DVT ppx: lovenox Discussed code status, patient desires to remain full code. This patient was seen by Manuel Damon PA-C under the supervision of Dr. Fountain.
[2019-07-18 16:54] LABS: International Normalized Ratio 1.3; Prothrombin Time (Protime)PT. 16.3 SECONDS (11.7-14.9)
[2019-07-18] MEDS: Vancomycin IV 1,000 MG/200 ML BAG 200 MG IV (17:46)
[2019-07-18 20:12] LABS: M R Staph aureus DNA By PCR Negative (Negative); Probe Check PASS; Specimen Processing Control PASS
--- NOTE | 2019-07-18 20:16 | PCM.RX.CS ---
Consult Pharmacy has been consulted to manage selected antiobiotic: Vancomycin Type of Consult: New start Suspected Infection: Sepsis, Pneumonia Prior Doses of Antibiotics Received/Current Regimen: Received 1gm iv x1 in ER Labs: Sodium 135 mmol/L (136-145) L 07/18/19 14:24 Potassium 5.1 mmol/L (3.5-5.1) 07/18/19 14:24 Chloride 104 mmol/L (98-107) 07/18/19 14:24 Carbon Dioxide 20.0 mmol/L (21.0-32.0) L 07/18/19 14:24 Anion Gap 11 (5-15) 07/18/19 14:24 BUN 49 mg/dL (7-18) H 07/18/19 14:24 Creatinine 1.44 mg/dL (0.70-1.30) H 07/18/19 14:24 Est GFR (MDRD) Af Amer 61 mL/min (>60) 07/18/19 14:24 Est GFR (MDRD) Non-Af 50 mL/min (>60) L 07/18/19 14:24 BUN/Creatinine Ratio 34.0 RATIO (10-20) H 07/18/19 14:24 Glucose 97 mg/dL (74-106) 07/18/19 14:24 Weight used for dosin kg Estimated Creatinine Clearance: ~27 ml/min Goal Trough: 15-20 mcg/mL Pharmacy Plan for Drug Dosing: Renal function reviewed. Will begin 750mg iv q24h per pharmacokinetic review. Trough goal is 15-20mcg/ml. Trough ordered for 07.20.19 before 3rd dose of therapy. Pharmacy Service will continue to monitor and adjust dosing as required. Follow-Up Labs: Trough Vancomycin - 3..20 @1630 before 1700 dose
[2019-07-18] MEDS: Jevity 1.5. 1,000 ML Bottle 240 ML GT (20:21)
[2019-07-18] MEDS: Mirtazapine 15 MG Tablet 7.5 MG GT (21:52)
[2019-07-18] MEDS: NYSTATIN 500,000 UNIT/5 ML UDC 500000 UNIT GT (21:52)
[2019-07-18] MEDS: Gabapentin 300 MG Capsule GT (21:58)
[2019-07-18] MEDS: 0.9% Normal Saline 1,000 ML 100 ML IV (22:05)
[2019-07-19] VITALS (32 sets, daily range): BP systolic 81–95; BP diastolic 48–59; PULSE 67–90; RESP 16–24; TEMP 35.6–37.2; O2SAT 92–100; BMI 13.7
[2019-07-19] MEDS: Levothyroxine 50 MCG Tablet GT (05:01)
[2019-07-19] MEDS: Allopurinol 300 MG Tablet GT (05:01)
--- NOTE | 2019-07-19 05:13 | NURSING ---
Pt requesting to have morning Allopurinol with Synthroid. Also requesting to have Jevity around 08:00 instead of 07:00.
[2019-07-19 05:56] LABS: Absolute Lymphocyte Count 0.25 X10^3/uL (0.83-4.51); Absolute Neutrophil Count 18.5 X10^3/uL (2.0-7.7); Basophil# 0.08 X10^3/uL; Basophil% 0.4 % (0-1); Eosinophil# 0.01 X10^3/uL; Eosinophils% 0.1 % (0-5); Hematocrit 44.4 % (40-54); Hemoglobin 13.4 g/dL (13.0-16.5); Lymphocyte # 0.25 X10^3/ul (4.0); Lymphocyte % 1.3 % (19-41); Mean Corp Hgb Conc 30.2 g/dL (32-36); Mean Corpuscular Hgb 25.4 pg (27.0-32.0); Mean Corpuscular Volume 84.3 fL (80-94); Monocyte# 0.13 X10^3/uL; Monocyte% 0.7 % (0-10); NRBC Flagged by Analyzer 0 % (0-5); Neutrophil # 18.48 X10^3/uL (2.7-7.7); Neutrophil % 96.4 % (47-70); POSITIVE DIFFERENTIAL YES; Platelet Count 698 K/mm3 (150-450); RBC Distribution Width CV 17.9 % (11.6-14.6); RBC Distribution Width SD 52.6 fl (35.1-43.9); Red Blood Count 5.27 M/mm3 (4.6-6.2); White Blood Count 19.2 K/mm3 (4.4-11.0)
[2019-07-19 06:08] LABS: Differential Indicated SCAN CRITERIA MET
[2019-07-19 06:40] LABS: Platelet Estimate MOD INC (ADEQ)
--- NOTE | 2019-07-19 06:45 | SEPSISNOTE ---
Sepsis Note - Physical Exam/Vitals Objective: Chest X-Ray 07/18/19 14:26 IMPRESSION: There is progressive infiltration of the left lower superimposed on scarring. Electronically Signed: Jr Desai, at 15:12 EDT , Service support , Temp Pulse Resp BP Pulse Ox 98.1 F 67 18 87/51 L 98 07/19/19 06:20 07/19/19 06:20 07/19/19 06:20 07/19/19 06:20 07/19/19 06:20 07/19/19 07/19/19 07/18/19 05:46 05:46 18:00 WBC 19.2 H RBC 5.27 Hgb 13.4 Hct 44.4 MCV 84.3 MCH 25.4 L MCHC 30.2 L RDW Std Deviation 52.6 H RDW Coeff of Alexey 17.9 H Plt Count 698 H MPV 10.0 Immature Gran % (Auto) 1.100 H Neut % (Auto) 96.4 H Lymph % (Auto) 1.3 L [place] % (Auto) 0.7 Eos % (Auto) 0.1 Baso % (Auto) 0.4 Absolute Neuts (auto) 18.5 H Absolute Lymphs (auto) 0.25 L Nucleated RBC % 0 Differential Comment Diff Path Review Platelet Estimate MOD INC RBC Morphology PT INR Sodium Pending Potassium Pending Chloride Pending Carbon Dioxide Pending Anion Gap Pending BUN Pending Creatinine Pending Estim Creat Clear Calc Est GFR (MDRD) Af Amer Pending Est GFR (MDRD) Non-Af Pending BUN/Creatinine Ratio Pending Glucose Pending Lactic Acid Calcium Pending Total Bilirubin Direct Bilirubin AST ALT Alkaline Phosphatase Troponin I Total Protein Albumin Globulin MRSA (PCR) Negative 07/18/19 07/18/19 07/18/19 16:15 14:54 14:24 WBC RBC Hgb Hct MCV MCH MCHC RDW Std Deviation RDW Coeff of Alexey Plt Count MPV Immature Gran % (Auto) Neut % (Auto) Lymph % (Auto) [place] % (Auto) Eos % (Auto) Baso % (Auto) Absolute Neuts (auto) Absolute Lymphs (auto) Nucleated RBC % Differential Comment Diff Path Review Platelet Estimate RBC Morphology PT 16.3 H Cancelled INR 1.3 Cancelled Sodium Potassium Chloride Carbon Dioxide Anion Gap BUN Creatinine Estim Creat Clear Calc Est GFR (MDRD) Af Amer Est GFR (MDRD) Non-Af BUN/Creatinine Ratio Glucose Lactic Acid 1.9 Calcium Total Bilirubin Direct Bilirubin AST ALT Alkaline Phosphatase Troponin I Total Protein Albumin Globulin MRSA (PCR) 07/18/19 07/18/19 14:24 14:24 WBC 24.0 H RBC 6.50 H Hgb 16.6 H Hct 54.7 H MCV 84.2 MCH 25.5 L MCHC 30.3 L RDW Std Deviation 52.3 H RDW Coeff of Alexey 18.9 H Plt Count 978 H* MPV 9.9 Immature Gran % (Auto) 1.000 H Neut % (Auto) 86.6 H Lymph % (Auto) 3.1 L [place] % (Auto) 5.1 Eos % (Auto) 1.9 Baso % (Auto) 2.3 H Absolute Neuts (auto) 20.8 H Absolute Lymphs (auto) 0.74 L Nucleated RBC % 0 Differential Comment Diff Path Review May foll Platelet Estimate MKD INC RBC Morphology NORM C+C PT INR Sodium 135 L Potassium 5.1 Chloride 104 Carbon Dioxide 20.0 L Anion Gap 11 BUN 49 H Creatinine 1.44 H Estim Creat Clear Calc 27.30 Est GFR (MDRD) Af Amer 61 Est GFR (MDRD) Non-Af 50 L BUN/Creatinine Ratio 34.0 H Glucose 97 Lactic Acid Calcium 9.7 Total Bilirubin 0.80 Direct Bilirubin 0.22 AST 13 L ALT 12 L Alkaline Phosphatase 122 H Troponin I < 0.015 Total Protein 7.9 Albumin 3.7 Globulin 4.2 MRSA (PCR) General: Alert, Oriented x3, Cooperative, - - Cachetic Lungs: Clear to auscultation, Normal air movement Cardiovascular: Regular rate, Regular Rhythm, No murmurs Capillary Refill: <3 seconds Peripheral Pulses: Normal Skin Color: [place] - Assessment/Plan Severe sepsis likely secondary to pneumonia. Systolic blood pressure x2 is less than 90. Blood cultures pending. Legionella urine antigen and strep pneumoniae urine antigen negative. Comprehensive respiratory pathogen panel is negative. Received bolus of 500 mL's. And on normal saline 100 MS per hour. We will give additional bolus of 1,500 mLs. Discontinue maintenance infusion. Continue patient on vancomycin and Zosyn. Lactic acid is unremarkable. Transfer to intensive care unit. Discussed with wardrobe consultant.
[2019-07-19 06:49] LABS: Anion Gap 8 (5-15); BUN 54 mg/dL (7-18); BUN/Creat Ratio 35.8 RATIO (10-20); Calcium,Total 8.9 mg/dL (8.5-10.1); Chloride 110 mmol/L (98-107); Creatinine, Serum 1.51 mg/dL (0.70-1.30); EST Glomerular Filtration Rate 48 mL/min (>60); Est Glom Filt Rate - Afr Amer 58 mL/min (>60); Estimated Creatinine Clearance 24.13 ml/min; Glucose 228 mg/dL (74-106); Potassium 5.1 mmol/L (3.5-5.1); Sodium Level 138 mmol/L (136-145)
[2019-07-19] MEDS: 0.9% Normal Saline 1,000 ML 500 ML IV ×2 (06:56→10:02)
--- NOTE | 2019-07-19 07:00 | NURSING ---
Report called to JENNIFER Ryder in ICU at this time.
[2019-07-19] MEDS: Ipratropium/Albuterol Sulfate 3 ML AMPUL.NEB INHALATION ×3 (08:21→19:45)
[2019-07-19] MEDS: Jevity 1.5. 1,000 ML Bottle 240 ML GT ×3 (08:53→16:58)
--- NOTE | 2019-07-19 09:56 | CM.UR ---
Participated in interdisciplinary rounds. SOB with nonproductive cough. Getting radiation for esophageal cancer and complaining of mouth pain. ? aspiration. on 2 liters o2. Remains on IVAB. Has PEG tube and manages at home. Case mgmt to follow for any needs. Pj West RN,CCM.
--- NOTE | 2019-07-19 09:57 | PN_ITS ---
Patient Problems: Active and Suspected Problems (Last Reviewed 05/19/19 @ 09:49 by ZAN Smith) Healthcare-associated pneumonia (Acute) Altered mental status (Acute) Hypoxia (Acute) Severe sepsis (Acute) Pneumonia (Acute) Sepsis (Acute) Subjective: Patient seen and examined. He was admitted for sepsis due to pneumonia. Patient seen in the ICU. HE is very frail and cachectic. He denies any fever, chills, shortness of breath, cough, chest pain, nausea, diarrhea or vomiting. Review of systems is otherwise negative. BP has remained in the 90s systolic, and RR this morning is 21. Cr is 1.51, and wbc is down to 19.2. Vitals/I&O's: Vital Signs Temp Pulse Resp BP Pulse Ox 96.1 F L 84 21 H 95/58 L 98 07/19/19 08:00 07/19/19 09:00 07/19/19 09:00 07/19/19 09:00 07/19/19 09:00 Oxygen Flow Rate (L/min) 2 Oxygen Delivery Method Nasal Cannula Weight: 98 lb 5.219 oz Body Mass Index (BMI) 13.2 Intake and Output for Last 24 Hours 07/17/19 07/18/19 07/19/19 23:59 23:59 23:59 Intake Total 871.67 / 1171.67 1723.33 / 1723.33 Output Total 120 / 120 Balance 871.67 / 1171.67 1603.33 / 1603.33 General: Alert, Oriented x3, Cooperative, Lethargic, - - very frail and cachectic HEENT: Atraumatic, PERRLA, EOMI, Normocephalic Oral: Dry Mucosa Neck: Supple, No JVD, Negative Carotid Bruits Lungs: - - diminished breath sounds bibasally, no wheezes or crackles. On room air. Cardiovascular: Regular rate, Regular Rhythm, Normal S1, Normal S2, No murmurs Abdomen: Bowel Sounds Present, Soft, Non Tender, Non-Distended, No Hepato- splenomegaly, - - PEG tube in place Extremities: No clubbing, No cyanosis, No edema, Capillary Refill Less than 3 Se conds Skin: - - has redness of lower lips and chin area- says it is chronic from radiation hall Musculoskeletal: No Tenderness to Palpation of Joints or Extremities Lymphatic: No Cervical, Supraclavicular, or Inguinal Adenopathy Neurological: Cranial nerves II-XII grossly intact Psych/Mental Status: Normal Affect, Appropriate, Alert and oriented to time, place, person, mood and affect Microbiology Past 72 Hours 07/18/19 19:40 Mucosa - Nasopharyngeal Respiratory Panel (PCR) - Final 07/19/19 06:10 Urine, Clean Catch Streptococcus pneumoniae Antigen (M - Final 07/19/19 06:10 Urine, Clean Catch Legionella Antigen - Final Laboratory Results 07/18/19 14:24: WBC 24.0 H, RBC 6.50 H, Hgb 16.6 H, Hct 54.7 H, MCV 84.2, MCH 25.5 L, MCHC 30.3 L, RDW Std Deviation 52.3 H, RDW Coeff of Alexey 18.9 H, Plt Count 978 H*, MPV 9.9, Immature Gran % (Auto) 1.000 H, Neut % (Auto) 86.6 H, Lymph % (Auto) 3.1 L, [place] % (Auto) 5.1, Eos % (Auto) 1.9, Baso % (Auto) 2.3 H, Absolute Neuts (auto) 20.8 H, Absolute Lymphs (auto) 0.74 L, Nucleated RBC % 0, Differential Comment , Diff Path Review May martin, Platelet Estimate MKD INC, RBC Morphology NORM C+C 07/18/19 14:24: Sodium 135 L, Potassium 5.1, Chloride 104, Carbon Dioxide 20.0 L , Anion Gap 11, BUN 49 H, Creatinine 1.44 H, Estim Creat Clear Calc 27.30, Est GFR (MDRD) Af Amer 61, Est GFR (MDRD) Non-Af 50 L, BUN/Creatinine Ratio 34.0 H, Glucose 97, Calcium 9.7, Total Bilirubin 0.80, Direct Bilirubin 0.22, AST 13 L, ALT 12 L, Alkaline Phosphatase 122 H, Troponin I < 0.015, Total Protein 7.9, Albumin 3.7, Globulin 4.2 07/18/19 14:24: Lactic Acid 1.9 07/18/19 14:54: PT Cancelled, INR Cancelled 07/18/19 16:15: PT 16.3 H, INR 1.3 07/18/19 18:00: MRSA (PCR) Negative 07/19/19 05:46: Sodium 138, Potassium 5.1, Chloride 110 H, Carbon Dioxide 20.0 L , Anion Gap 8, BUN 54 H, Creatinine 1.51 H, Estim Creat Clear Calc 24.13, Est GFR (MDRD) Af Amer 58 L, Est GFR (MDRD) Non-Af 48 L, BUN/Creatinine Ratio 35.8 H , Glucose 228 H, Calcium 8.9 07/19/19 05:46: WBC 19.2 H, RBC 5.27, Hgb 13.4, Hct 44.4, MCV 84.3, MCH 25.4 L, MCHC 30.2 L, RDW Std Deviation 52.6 H, RDW Coeff of Alexey 17.9 H, Plt Count 698 H, MPV 10.0, Immature Gran % (Auto) 1.100 H, Neut % (Auto) 96.4 H, Lymph % (Auto) 1.3 L, [place] % (Auto) 0.7, Eos % (Auto) 0.1, Baso % (Auto) 0.4, Absolute Neuts (auto) 18.5 H, Absolute Lymphs (auto) 0.25 L, Nucleated RBC % 0, Differential Comment , Platelet Estimate MOD INC Diagnostic Data Chest X-Ray 07/18/19 14:26 IMPRESSION: There is progressive infiltration of the left lower superimposed on scarring. Electronically Signed: Jr Desai, at 15:12 EDT , Service support , Current Medications Acetaminophen (Tylenol Liquid) 650 mg GT Q6H PRN PRN PRN Reason: PAIN 1-10/10/FEVER >100 F Albuterol/Ipratropium (Duoneb) 3 ml INHALATION Q4HWA.RT [facility] Last Admin: 07/19/19 08:21 Dose: 3 ml Documented by: Allopurinol (Zyloprim) 300 mg GT DAILYCM [facility] Last Admin: 07/19/19 05:01 Dose: 300 mg Documented by: [facility]ir[facility] ([facility]in, Baby) [facility] Enoxaparin Sodium (Lovenox) 30 mg SC DAILY [facility] Enteral Nutritional Formula (Jevity 1.5) 240 ml GT 1600,1900 [facility] Last Admin: 07/18/19 20:21 Dose: 240 ml Documented by: Enteral Nutritional Formula (Jevity 1.5) 240 ml GT 0700,1000,1300 [facility] Last Admin: 07/19/19 08:53 Dose: 240 ml Documented by: Gabapentin (Neurontin) 300 mg GT BIDCM [facility] Last Admin: 07/18/19 21:58 Dose: 300 mg Documented by: Guaifenesin/Codeine Phosphate (Robitussin Ac) 5 ml GT Q6H PRN PRN PRN Reason: COUGH Sodium Chloride () 500 mls @ 999 mls/hr IV .Q31M ONE Last Infusion: 07/18/19 15:23 Dose: Infused Documented by: Piperacillin Sod/Tazobactam (Sod 3.375 gm/ Sodium Chloride) 50 mls @ 12.5 mls/hr IV Q8 [facility] Last Infusion: 07/19/19 09:01 Dose: Infused Documented by: Vancomycin IV Pharmacy to Dose (1 ea/ Sodium Chloride) 500 mls @ 250 mls/hr IV PRN PRN; Protocol PRN Reason: Rx to Dose Vancomycin HCl 750 mg/ Sodium (Chloride) 265 mls @ 250 mls/hr IV Q24H [facility] Levothyroxine Sodium (Synthroid) 50 mcg GT DAILY@0600 [facility] Last Admin: 07/19/19 05:01 Dose: 50 mcg Documented by: Methylprednisolone (Solu-Medrol) 40 mg IV Q8 INDU Mirtazapine (Remeron) 7.5 mg GT QHS [facility] Last Admin: 07/18/19 21:52 Dose: 7.5 mg Documented by: Nystatin (Nystatin) 500,000 unit GT 4X/DAY [facility] Last Admin: 07/18/19 21:52 Dose: 500,000 unit Documented by: Ondansetron HCl (Zofran Odt) 4 mg GT Q8H PRN PRN PRN Reason: NAUSEA Sodium Chloride () 10 - 40 ml IV UD PRN PRN Reason: SALINE FLUSH STROKE Vital Signs/Narrative: Vital Signs Temp Pulse Resp BP BP Pulse Ox 07/19/19 09:00 84 21 H 95/58 L 98 07/19/19 08:03 69 07/19/19 08:00 96.1 F L 75 24 H 86/54 L 99 07/19/19 07:30 70 16 85/48 L 99 07/19/19 07:18 69 07/19/19 07:15 73 21 H 88/59 L 97 07/19/19 07:12 97.8 F 76 23 H 88/59 L 96 07/19/19 06:20 98.1 F 67 18 87/51 L 98 07/19/19 06:10 98.1 F 69 18 81/49 L 100 Medical Necessity - Tobacco Use Smoking Status: Former smoker Tobacco Use: Non-smoker Assessment/Plan All Active Problems (Last Reviewed 05/19/19 @ 09:49 by Rosie Perea, DOROTEO-C) Tracheostomy present (Acute) Vocal cord cancer (Resolved) Tracheostomy complication (Acute) Healthcare-associated pneumonia (Acute) Altered mental status (Acute) Hypoxia (Acute) Severe sepsis (Acute) Pneumonia (Acute) Sepsis (Acute) JULIANA (acute kidney injury) (Resolved) Elevated LFTs (Resolved) Foreign body in esophagus (Resolved) Neoplasm of unspecified behavior of bone, soft tissue, and skin (Resolved) Osteomyelitis of finger of left hand (Resolved) Pneumonia (Resolved) 1. Sepsis due to community acquired pneumonia * WBC has trended down to 19. Lactate was negative. * aspiration is also a possibility as he has dysphagia and a PEG tube in, but still drinks some liquids * on IV vancomycin and zosyn * SIRS criteria is 2/4(tachypnea and leucocytosis) * blood cultures pending. urine for Strep and Legionella negative * respiratory panel negative * critical care on board * 2. Acute hypoxic respiratory failure due to pneumonia * Currently on 2 L of oxygen. Breathing treatments with bronchodilators. * On antibiotics as under 1. * on IV solumedrol * 3. Severe protein calorie malnutrition: BMI is just 13. Has PEG tube in place. ON Jevity tube feeds. Dietary consulted. 4. 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 Tube feedings. 5. Hypothyroidism: On Synthroid. 6. History of bleeding peptic ulcer and GERD as well as esophageal strictures: On PPI 7. JULIANA: Creatinine is 1.51. Baseline is around 0.8. Currently on IV fluids. Creatinine was 1.4 on admission. Will monitor. DVT prophylaxis: Lovenox Inpatient E&M: [id number] [facility] L3
--- NOTE | 2019-07-19 09:57 | CON.PCM_ITS ---
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 Comment: FEV 1 52% (10) Chronic respiratory failure with hypoxia Status: Chronic (11) Iron deficiency anemia Status: Chronic (12) Former smoker Status: Chronic (13) Malnutrition of moderate degree Status: Chronic (14) Hypersomnia Status: Chronic (15) History of peptic ulcer disease Status: Chronic Reason for Consult Date of Consultation: 07/19/19 Reason for Consultation: Hypotension History of Present Illness: The patient is a 79 year old M, with past medical history listed below and well- known to me from the outpatient office, who presented to [facility] on 07/18/2019 secondary to progressive shortness of breath. Patient reportedly was in the 70s on 2 L nasal cannula on EMS arrival. Patient had reportedly been having a dry cough, but no history of fever or chills. Patient has a history of oral squamous cell cancer and has received radiation. Patient does report to occasionally taking liquids by mouth, but receives most of his nutrition through his PEG tube. On evaluation in the ER, patient was noted to have a leukocytosis of 24,000 and a progressive left lower lobe infiltrate on chest x-ray. Patient did require some increased oxygen and reportedly appeared critically ill by ER staff. Patient was given IV Zosyn and vancomycin following blood cultures. Patient did receive a 500 cc bolus and was admitted to the ICU. Shortly after arrival to the ICU, patient was transferred to the PCU. However, overnight, patient became hypotensive with systolic blood pressures less than 90. Patient received a full 30 cc/kg bolus and was transferred to the intensive care unit for further evaluation. Since arrival in the intensive care unit, patient has improved subjectively. Patient states that his dyspnea is improving following the fluid bolus. Patient is currently on his baseline 3 L nasal cannula oxygen. Patient does admit to occasionally taken liquids by mouth, but denies any acute aspiration event. Patient denies any hemoptysis or chest pain. Patient estimates that he has been sick for approximately 5 days, but initially it was just vague complaints. Patient states he has been compliant with his respiratory medications. Patient wants to be a full code at this time. Patient does report that he has been receiving radiation to his mandible, but is unable to give further details. Review of systems otherwise negative from a constitutional, HEENT, respiratory, cardiovascular, GI, genitourinary, musculoskeletal, skin, neurologic, psychiatric and hematologic system unless stated above. Past Medical History Past Medical History (Chronic Problems): Chronic Problems (Last Reviewed 05/19/19 @ 09:49 by Rosie Perea, BUSINESS PROCESS ENGINEER-C) Debility (Chronic) Squamous cell carcinoma of mouth (Chronic) Tobacco abuse (Chronic) GERD (gastroesophageal reflux disease) (Chronic) Throat cancer (Chronic) Esophageal stricture (Chronic) Hypothyroidism (Chronic) Polycythemia (Chronic) Stage 2 moderate COPD by GOLD classification (Chronic) FEV 1 52% senior living current use of anticoagulant (Chronic) Gout (Chronic) gouty mass dorsal radial aspect PIP joint left index finger Chronic respiratory failure with hypoxia (Chronic) Iron deficiency anemia (Chronic) Hyperuricemia (Chronic) Former smoker (Chronic) Benign esophageal stricture (Chronic) Malnutrition of moderate degree (Chronic) Leukocytosis (Chronic) Dysphagia (Chronic) Hypersomnia (Chronic) COPD (chronic obstructive pulmonary disease) (Chronic) FEV1 52% History of peptic ulcer disease (Chronic) Medical History: Medical History (Last Reviewed 05/19/19 @ 09:49 by Rosie Perea, BUSINESS PROCESS ENGINEER-C) COPD (chronic obstructive pulmonary disease) (Chronic) J44.9 FEV1 52% History of peptic ulcer disease (Chronic) Z87.11 Adenomatous colon polyp D12.6 Gout M10.9 History of cataract Z86.69 Hypoxemia R09.02 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 Pancreatitis K85.90 Polycythemia D75.1 Protein calorie malnutrition E46 Thrombocytosis D47.3 Chronic back pain M54.9, G89.29 Iron deficiency anemia D50.9 Stage 2 moderate COPD by GOLD classification J44.9 Tobacco use Z72.0 Elevated LFTs (Resolved) R79.89 Pneumonia (Resolved) J18.9 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 Allergies doxycycline Adverse Reaction (Verified 07/15/19 15:40) PANCREATITIS Home Medications: Ambulatory Orders Medication Instructions Recorded Albuterol Inhaler [Ventolin Hfa] 2 puff INHALATION Q6H PRN PRN 01/02/14 Allopurinol [Zyloprim] 300 mg PO DAILY 09/23/17 Aspirin [Aspirin, Baby] 81 mg PO DAILY 05/03/18 Ondansetron [Ondansetron Odt] 4 mg PO Q8H PRN PRN 05/03/18 Fluticasone 110 Mcg [Flovent 110 1 puff INHALATION BID 01/30/19 Mcg] Levothyroxine [Synthroid] 50 mcg PO DAILY #30 tab 02/17/19 Tiotropium Br/Olodaterol HCl 2 puff INHALATION DAILY #1 02/17/19 [Stiolto Respimat Inhal [place]] mist.inhal Azithromycin 250 mg PO DAILY 07/18/19 Gabapentin [Neurontin] 300 mg GT BID 07/18/19 Jevity 1.5 240 ml GT 0700,1000,1300 07/18/19 Jevity 1.5 240 ml GT 1600,1900 07/18/19 Menthol/Lanolin/Calamine/Znox 1 applic TOPICAL TID 07/18/19 [Calmoseptine Ointment] Mineral Oil/Petrolatum,White 1 applic TOPICAL QHS 07/18/19 [Eucerin] Mirtazapine [Remeron] 7.5 mg GT QHS 07/18/19 Surgical History: Surgical History (Last Reviewed 05/19/19 @ 09:49 by Rosie Perea BUSINESS PROCESS ENGINEER-C) Esophageal dilatation K22.8 2003 Floor of mouth resection, sialadochoplasty 2017 H/O colonoscopy Z98.890 2015, 2012, 2003 History of esophagogastroduodenoscopy (EGD) Z98.890 2012 2004 History of laryngoscopy Z98.890 2013 S/P partial gastrectomy Z90.3 1970 Surgical History: - - dysplasia of tongue, ulcer surgery with some removal of stomach? vocal cord lesion, PEG tube placement Psychiatric History: No pertinent psych hx Lives: Spouse/ Significant Other Smoking Status: Former smoker Tobacco Use: Non-smoker Alcohol: Occasional Drugs: None - *Family History Maternal Family History: Family History (Last Reviewed 07/18/19 @ 16:20 by BLAKE Deutsch) Brother Brain cancer Bone cancer Brain tumor Father CAD (coronary artery disease) Heart disease History Items: - - No cardiac hx Paternal Family History: Family History (Last Reviewed 07/18/19 @ 16:20 by BLAKE Deutsch) Brother Brain cancer Bone cancer Brain tumor Father CAD (coronary artery disease) Heart disease History Items: No pertinent history Review of Systems Comment: See HPI Patient Problems: Active and Suspected Problems (Last Reviewed 05/19/19 @ 09:49 by ZAN Smith) Healthcare-associated pneumonia (Acute) Altered mental status (Acute) Hypoxia (Acute) Severe sepsis (Acute) Pneumonia (Acute) Sepsis (Acute) Objective: Chest x-ray was personally reviewed and shows some increasing left lower lobe infiltrate with air bronchogram this morning. Patient has a previous pulmonary function test approximately a year ago showing an FEV1 of 52% of predicted and a pattern consistent with COPD. Patient has not recently had an echocardiogram. - Physical Exam Vitals/I&O's: Vital Signs Temp Pulse Resp BP Pulse Ox 35.6 C L 84 21 H 95/58 L 98 07/19/19 08:00 07/19/19 09:00 07/19/19 09:00 07/19/19 09:00 07/19/19 09:00 Oxygen Flow Rate (L/min) 2 Oxygen Delivery Method Nasal Cannula Weight: 44.6 kg Body Mass Index (BMI) 13.2 Intake and Output for Last 24 Hours 07/17/19 07/18/19 07/19/19 23:59 23:59 23:59 Intake Total 871.67 / 1171.67 1723.33 / 1723.33 Output Total 120 / 120 Balance 871.67 / 1171.67 1603.33 / 1603.33 General: Alert, Cooperative, No apparent distress, - - Cachectic. Somewhat difficult to articulate HEENT: Atraumatic, PERRLA, EOMI, Normocephalic, - - Slight scleral injection Oral: No Gingival or Mucosal Lesions/ Ulcerations, Dry Mucosa, - - Multiple ulcerations noted in the anterior gumline Neck: Supple, No JVD, No Nodes, Trachea Midline Lungs: No rales, Diminished, Rhonchi - Left base, Wheezes, - - Symmetric expansion. Cardiovascular: Regular rate, Regular Rhythm, Normal S1, Normal S2, No murmurs, No rub noted, No Gallop Abdomen: Bowel Sounds Present, Soft, Non Tender, Non-Distended, - - PEG is cl melissa, dry and intact Extremities: No cyanosis, No edema, Capillary Refill Less than 3 Seconds, Clubbing Skin: Ulcer/ Wound - Multiple ulcers described in oral exam Musculoskeletal: Cachexia, Muscle Wasting Lymphatic: No Cervical, Supraclavicular, or Inguinal Adenopathy Neurological: Cranial nerves II-XII grossly intact, Neuro grossly intact, Motor Exam 5/5 strength throughout Psych/Mental Status: Appropriate, Flat Affect Microbiology Past 72 Hours 07/18/19 19:40 Mucosa - Nasopharyngeal Respiratory Panel (PCR) - Final 07/19/19 06:10 Urine, Clean Catch Streptococcus pneumoniae Antigen (M - Final 07/19/19 06:10 Urine, Clean Catch Legionella Antigen - Final Laboratory Results 07/18/19 14:24: WBC 24.0 H, RBC 6.50 H, Hgb 16.6 H, Hct 54.7 H, MCV 84.2, MCH 25.5 L, MCHC 30.3 L, RDW Std Deviation 52.3 H, RDW Coeff of Alexey 18.9 H, Plt Count 978 H*, MPV 9.9, Immature Gran % (Auto) 1.000 H, Neut % (Auto) 86.6 H, Lymph % (Auto) 3.1 L, [place] % (Auto) 5.1, Eos % (Auto) 1.9, Baso % (Auto) 2.3 H, Absolute Neuts (auto) 20.8 H, Absolute Lymphs (auto) 0.74 L, Nucleated RBC % 0, Differential Comment , Diff Path Review May foll, Platelet Estimate MKD INC, RBC Morphology NORM C+C 07/18/19 14:24: Sodium 135 L, Potassium 5.1, Chloride 104, Carbon Dioxide 20.0 L , Anion Gap 11, BUN 49 H, Creatinine 1.44 H, Estim Creat Clear Calc 27.30, Est GFR (MDRD) Af Amer 61, Est GFR (MDRD) Non-Af 50 L, BUN/Creatinine Ratio 34.0 H, Glucose 97, Calcium 9.7, Total Bilirubin 0.80, Direct Bilirubin 0.22, AST 13 L, ALT 12 L, Alkaline Phosphatase 122 H, Troponin I < 0.015, Total Protein 7.9, Albumin 3.7, Globulin 4.2 07/18/19 14:24: Lactic Acid 1.9 07/18/19 14:54: PT Cancelled, INR Cancelled 07/18/19 16:15: PT 16.3 H, INR 1.3 07/18/19 18:00: MRSA (PCR) Negative 07/19/19 05:46: Sodium 138, Potassium 5.1, Chloride 110 H, Carbon Dioxide 20.0 L , Anion Gap 8, BUN 54 H, Creatinine 1.51 H, Estim Creat Clear Calc 24.13, Est GFR (MDRD) Af Amer 58 L, Est GFR (MDRD) Non-Af 48 L, BUN/Creatinine Ratio 35.8 H , Glucose 228 H, Calcium 8.9 07/19/19 05:46: WBC 19.2 H, RBC 5.27, Hgb 13.4, Hct 44.4, MCV 84.3, MCH 25.4 L, MCHC 30.2 L, RDW Std Deviation 52.6 H, RDW Coeff of Alexey 17.9 H, Plt Count 698 H, MPV 10.0, Immature Gran % (Auto) 1.100 H, Neut % (Auto) 96.4 H, Lymph % (Auto) 1.3 L, [place] % (Auto) 0.7, Eos % (Auto) 0.1, Baso % (Auto) 0.4, Absolute Neuts (auto) 18.5 H, Absolute Lymphs (auto) 0.25 L, Nucleated RBC % 0, Differential Comment , Platelet Estimate MOD INC Current Medications Acetaminophen (Tylenol Liquid) 650 mg GT Q6H PRN PRN PRN Reason: PAIN 1-10/10/FEVER >100 F Albuterol/Ipratropium (Duoneb) 3 ml INHALATION Q4HWA.RT [facility] Last Admin: 07/19/19 08:21 Dose: 3 ml Documented by: Allopurinol (Zyloprim) 300 mg GT DAILYCM [facility] Last Admin: 07/19/19 05:01 Dose: 300 mg Documented by: [facility] ([facility], Baby) [facility] Enoxaparin Sodium (Lovenox) 30 mg SC DAILY [facility] Enteral Nutritional Formula (Jevity 1.5) 240 ml GT 1600,1900 [facility] Last Admin: 07/18/19 20:21 Dose: 240 ml Documented by: Enteral Nutritional Formula (Jevity 1.5) 240 ml GT 0700,1000,1300 [facility] Last Admin: 07/19/19 08:53 Dose: 240 ml Documented by: Gabapentin (Neurontin) 300 mg GT BIDCM [facility] Last Admin: 07/18/19 21:58 Dose: 300 mg Documented by: Guaifenesin/Codeine Phosphate (Robitussin Ac) 5 ml GT Q6H PRN PRN PRN Reason: COUGH Sodium Chloride () 500 mls @ 999 mls/hr IV .Q31M ONE Last Infusion: 07/18/19 15:23 Dose: Infused Documented by: Piperacillin Sod/Tazobactam (Sod 3.375 gm/ Sodium Chloride) 50 mls @ 12.5 mls/hr IV Q8 [facility] Last Infusion: 07/19/19 09:01 Dose: Infused Documented by: Vancomycin IV Pharmacy to Dose (1 ea/ Sodium Chloride) 500 mls @ 250 mls/hr IV PRN PRN; Protocol PRN Reason: Rx to Dose Vancomycin HCl 750 mg/ Sodium (Chloride) 265 mls @ 250 mls/hr IV Q24H [facility] Levothyroxine Sodium (Synthroid) 50 mcg GT DAILY@0600 [facility] Last Admin: 07/19/19 05:01 Dose: 50 mcg Documented by: Methylprednisolone (Solu-Medrol) 40 mg IV Q8 [facility] Mirtazapine (Remeron) 7.5 mg GT QHS [facility] Last Admin: 07/18/19 21:52 Dose: 7.5 mg Documented by: Nystatin (Nystatin) 500,000 unit GT 4X/DAY [facility] Last Admin: 07/18/19 21:52 Dose: 500,000 unit Documented by: Ondansetron HCl (Zofran Odt) 4 mg GT Q8H PRN PRN PRN Reason: NAUSEA Sodium Chloride () 10 - 40 ml IV UD PRN PRN Reason: SALINE FLUSH Clinical Impression(s) from Imaging Studies Chest X-Ray 07/18/19 14:26 IMPRESSION: There is progressive infiltration of the left lower superimposed on scarring. Electronically Signed: Jr Desai, at 15:12 EDT , Service support , Assessment/Plan Active and Suspected Problems (Last Reviewed 05/19/19 @ 09:49 by Rosie willis, BUSINESS PROCESS ENGINEER-C) Healthcare-associated pneumonia (Acute) Altered mental status (Acute) Hypoxia (Acute) Severe sepsis (Acute) Pneumonia (Acute) Sepsis (Acute) RECOMMENDATIONS: 1. Transition from Pulmicort to systemic steroids 2. Bolus as necessary for hypotension 3. Possible initiation of pressor therapy 4. Okay to discontinue vancomycin given negative MRSA swab 5. Keep oxygen saturations 90 to 94% 6. Coronavirus precautions for 24 hours IMPRESSIONS: 1. Severe sepsis secondary to probable aspiration pneumonia secondary to p.o. intake with dysphagia Patient has had multiple swallow studies in the past that have shown silent aspiration. Patient currently receiving radiation therapy and has had extensive neck issues in the past. Patient's x-ray shows a left lower lobe evolving infiltrate. Clinical suspicion for an aspiration event leading to current symptomatology. Patient did have a negative viral panel, so coronavirus is a consideration. If not improving in the next 24 hours, evaluation with PCR may be appropriate. Patient's respiratory status appears to be stable at this time, but will have to watch with fluid boluses. Pressors may be required. 2. Stage II COPD/chronic hypoxic respiratory failure Patient's last pulmonary function tests were a year ago. Unclear if patient has increased oxygen demand secondary to inability to tolerate metabolic demand versus acute COPD exacerbation. High clinical suspicion that inflammation will develop over the next 24 to 48 hours. We will transition patient from Pulmicort to systemic steroids. Continue with bronchodilators. 3. Multiple cancers/secondary polycythemia/GERD/esophageal stri ctures/dysphasia/severe malnutrition Complicates care, management, recovery and prognosis. Patient's tube feeds meet metabolic demands. Unclear if these are being performed at home. P atient should be strict n.p.o. Likely not necessary to be evaluated by speech given previous work-ups. Will give Pepcid for GI prophylaxis. TIME: 35 minutes critical care time spent addressing patient's severe sepsis with hypotension, COPD, review of all data and collaboration with care team (9 AM to 10:20 AM) 9xxxx: [id number] Critical care first hour
[2019-07-19] MEDS: Enoxaparin 30 MG/0.3 ML Syringe SC (10:02)
[2019-07-19] MEDS: Gabapentin 300 MG Capsule GT ×2 (10:02→16:58)
[2019-07-19] MEDS: NYSTATIN 500,000 UNIT/5 ML UDC 500000 UNIT GT ×4 (10:02→21:18)
[2019-07-19] MEDS: Aspirin 81 MG TAB.CHEW GT (10:02)
--- NOTE | 2019-07-19 13:57 | PCM.NTREPORT ---
Nutrition Therapy Report - History Nutrition Services has been consulted to:: Manage nutrient details of diet order, Manage enteral nutrition Current diet / nutrition support order:: NPO; Jevity 1.5 Pal 240 ml Bolus 5 times per day 0700, 1000, 1300, 1600, 1900 - Anthropometric Measurements Height:: 5 ft 11 in Weight:: 44.6 kg - 6%wtloss x 5mos;18%wt loss x 18 mos Body Mass Index (BMI):: 13.7 - Relevant Labs Relevant Labs:: WBC 19.2 K/mm3 (4.4-11.0) H 07/19/19 05:46 RBC 6.50 M/mm3 (4.6-6.2) H 07/18/19 14:24 Hgb 16.6 g/dL (13.0-16.5) H 07/18/19 14:24 Hct 54.7 % (40-54) H 07/18/19 14:24 MCH 25.4 pg (27.0-32.0) L 07/19/19 05:46 MCHC 30.2 g/dL (32-36) L 07/19/19 05:46 RDW Std Deviation 52.6 fl (35.1-43.9) H 07/19/19 05:46 RDW Coeff of Alexey 17.9 % (11.6-14.6) H 07/19/19 05:46 Plt Count 698 K/mm3 (150-450) H 07/19/19 05:46 Immature Gran % (Auto) 1.100 % (0.0-0.9) H 07/19/19 05:46 Neut % (Auto) 96.4 % (47-70) H 07/19/19 05:46 Lymph % (Auto) 1.3 % (19-41) L 07/19/19 05:46 Baso % (Auto) 2.3 % (0-1) H 07/18/19 14:24 Absolute Neuts (auto) 18.5 X10^3/uL (2.0-7.7) H 07/19/19 05:46 Absolute Lymphs (auto) 0.25 X10^3/uL (0.83-4.51) L 07/19/19 05:46 PT 16.3 SECONDS (11.7-14.9) H 07/18/19 16:15 Sodium 135 mmol/L (136-145) L 07/18/19 14:24 Chloride 110 mmol/L (98-107) H 07/19/19 05:46 Carbon Dioxide 20.0 mmol/L (21.0-32.0) L 07/19/19 05:46 BUN 54 mg/dL (7-18) H 07/19/19 05:46 Creatinine 1.51 mg/dL (0.70-1.30) H 07/19/19 05:46 Est GFR (MDRD) Af Amer 58 mL/min (>60) L 07/19/19 05:46 Est GFR (MDRD) Non-Af 48 mL/min (>60) L 07/19/19 05:46 BUN/Creatinine Ratio 35.8 RATIO (10-20) H 07/19/19 05:46 Glucose 228 mg/dL (74-106) H 07/19/19 05:46 AST 13 U/L (15-37) L 07/18/19 14:24 ALT 12 U/L (16-61) L 07/18/19 14:24 Alkaline Phosphatase 122 U/L (45-117) H 07/18/19 14:24 - Assessment Food / Nutrition-Related History:: PO is insignificant with some sips/chips at most. TF meeting estimated nutrition needs~8561-6680 kcal and ~60-70 gm protein/day. - Nutrition Diagnosis Problem / Etiology / Signs & Symptoms (PES):: Disease related severe pro/pal malnutiton r/t increased energy expenditure, dysphagia/NPO AEB significant wt loss~18% x past 12-18 mos; cachexia, severely depleted muscle/fat mass. Evidence of Malnutrition Exists:: Yes Severe PCM:: Chronic Illness - Nutrition Intervention Nutrition Prescription:: Continue 240 ml bolus Jevity 1.5 Pal 5 times per day with 180 ml water flush Q feed to provide 1800 kcal, 76.5 gm protein and 1812 ml free water daily. - Food / Nutrient Delivery Interventions Summary of nutrition intervention:: Continue TF as ordered to promote wt gain & protein repletion. Daily weights. Nutrition support ordered as / adjusted to:: Continue as ordered. Nutrition education provided?: No - MNT Monitoring Further MNT monitoring and evaluation required?: Yes - Will continue to monitor TF tolerance, wt, labs & follow-up. MNT Follow-up in:: 1-2 days - ICU rounds today.
--- NOTE | 2019-07-19 14:06 | CM.UR ---
RN MARCELINO Assessment Patient is in isolation. No family present. Attempted to call the room however no answer so called . Introduced role of RN MARCELINO to , explained my role and she agreed to participate in RN CM assmt. Care providers, pharmacy, and demographics verified. Presentation: Shortness of breath Admit Dx: pneumonia Re-Admit: no Barriers/Issues: none PCP: Dr. Adkins Preferred Pharmacy: [facility] Insurance: [facility] Rx Benefit: yes LNOK: Gisela Living Arrangements: Lives in a 2 story home. Bedroom is now on the first floor. Have to go to 2nd floor only to shower. States, We are both creaky on the stairs. [facility] stairs do have railing and they don't go up everyday. Patient also will go to basement to help with Laundry. She states that she is ill also so he actually still does a lot at home. ADL?s: States he does all his personal care, cleans, laundry, manages the finances and home maintenance til this this past week. States they do have 4 children, 2 of which are very supportive. Daughter, Brenda, that lives across the street and son that also lives in [place]. States that the other 2-->one lives out of town and one works a crazy schedule. Transportation: States he still drives. DME: Oxygen, cane, walker, wheelchair and shower chair. DME co: O2 is from [facility] HHC: None SNF: TCU Goal: Patient has in past declined SNF, HHC, Palliative care and hospice. Per he would prefer to return home without any of the services again. States their daughter who lives across the street is an RN. Denies any needs for him to return home. Encouraged to call if her/her daughter think of anything they/he needs. Explained they/he can alert their nurse and they will get ahold of JENNIFER BENSON or TENZIN as appropriate. Verb understanding and agreeable to plan. DC PLAN: TBD, probably home. Pj West RN, CCM.
[2019-07-19] MEDS: Mirtazapine 15 MG Tablet 7.5 MG GT (21:17)
[2019-07-19] MEDS: Famotidine 20 MG Tablet GT (21:17)
[2019-07-19] MEDS: 0.9% Saline Lock 10 ML Syringe IV (21:18)
[2019-07-20] VITALS (21 sets, daily range): BP systolic 84–107; BP diastolic 45–62; PULSE 64–103; RESP 16–22; TEMP 36.2–37.2; O2SAT 93–99
[2019-07-20] MEDS: Levothyroxine 50 MCG Tablet GT (05:16)
[2019-07-20 05:20] LABS: Absolute Lymphocyte Count 0.21 X10^3/uL (0.83-4.51); Absolute Neutrophil Count 22.5 X10^3/uL (2.0-7.7); Basophil# 0.06 X10^3/uL; Basophil% 0.3 % (0-1); Hematocrit 39.8 % (40-54); Hemoglobin 12.3 g/dL (13.0-16.5); Lymphocyte # 0.21 X10^3/ul (4.0); Lymphocyte % 0.9 % (19-41); Mean Corp Hgb Conc 30.9 g/dL (32-36); Mean Corpuscular Hgb 25.3 pg (27.0-32.0); Mean Corpuscular Volume 81.9 fL (80-94); Mean Platelet Vol. 10.3 fl (6.2-12.0); Monocyte# 0.47 X10^3/uL; NRBC Flagged by Analyzer 0 % (0-5); Neutrophil % 95.4 % (47-70); POSITIVE DIFFERENTIAL YES; Platelet Count 687 K/mm3 (150-450); RBC Distribution Width CV 17.4 % (11.6-14.6); RBC Distribution Width SD 50.4 fl (35.1-43.9); Red Blood Count 4.86 M/mm3 (4.6-6.2); White Blood Count 23.6 K/mm3 (4.4-11.0)
[2019-07-20 05:38] LABS: Anion Gap 7 (5-15); BUN 43 mg/dL (7-18); BUN/Creat Ratio 37.4 RATIO (10-20); Calcium,Total 8.3 mg/dL (8.5-10.1); Chloride 111 mmol/L (98-107); Creatinine, Serum 1.15 mg/dL (0.70-1.30); EST Glomerular Filtration Rate 65 mL/min (>60); Est Glom Filt Rate - Afr Amer 79 mL/min (>60); Estimated Creatinine Clearance 34.26 ml/min; Glucose 167 mg/dL (74-106); Potassium 4.5 mmol/L (3.5-5.1); Sodium Level 139 mmol/L (136-145)
[2019-07-20 06:20] LABS: Differential Indicated SCAN CRITERIA MET
--- NOTE | 2019-07-20 07:03 | PCM.PN.INT ---
Subjective: Patient did well overnight. No acute issues were reported. Patient did not require Levophed to maintain adequate blood pressures. Patient has tolerated room air well. No reported difficulty with tube feeding. Patient reports subjective improvement, especially with mouth discomfort. General: Alert, Oriented x3, Cooperative, No apparent distress, - - Cachectic. Mild conversational dyspnea. HEENT: Atraumatic, PERRLA, EOMI, Normocephalic, - - No scleral icterus or injection noted. Oral: - - Less erythema noted of the gumline. Still with mandibular ruber Neck: Supple, No JVD, No Nodes, Trachea Midline Lungs: No rhonchi, No rales, Diminished, Wheezes - At end exhalation Cardiovascular: Regular rate, Regular Rhythm, Normal S1, Normal S2, Murmur - Grade 2 out of 6 systolic ejection murmur at the right sternal border, No rub noted, No Gallop, - - Normal sinus rhythm noted on telemetry Abdomen: Bowel Sounds Present, Soft, Non Tender, - - PEG is clean, dry and intact. Scaphoid abdomen Extremities: No cyanosis, No edema, Capillary Refill Less than 3 Seconds, Clubbing Skin: - - Mandibular erythema slightly improved. Musculoskeletal: Cachexia, Muscle Wasting Lymphatic: No Cervical, Supraclavicular, or Inguinal Adenopathy Neurological: Cranial nerves II-XII grossly intact, Neuro grossly intact, Motor Exam 5/5 strength throughout Psych/Mental Status: Alert and oriented to time, place, person, mood and affect Vital Signs Temp Pulse Resp BP Pulse Ox 36.6 C 68 18 91/54 L 97 07/20/19 04:00 07/20/19 06:00 07/20/19 06:00 07/20/19 06:00 07/20/19 06:00 Oxygen Flow Rate (L/min) 2 Oxygen Delivery Method Room Air Weight: 46.5 kg Body Mass Index (BMI) 13.7 Intake and Output for Last 24 Hours 07/18/19 07/19/19 07/20/19 23:59 23:59 23:59 Intake Total 871.67 / 1171.67 2973.33 / 3093.33 230 / 230 Output Total 370 / 520 400 / 400 Balance 871.67 / 1171.67 2603.33 / 2573.33 -170 / -170 Labs (Last 48 Hours) 07/18/19 07/18/19 07/18/19 14:24 14:24 14:24 WBC 24.0 H RBC 6.50 H Hgb 16.6 H Hct 54.7 H MCV 84.2 MCH 25.5 L MCHC 30.3 L RDW Std Deviation 52.3 H RDW Coeff of Alexey 18.9 H Plt Count 978 H* MPV 9.9 Immature Gran % (Auto) 1.000 H Neut % (Auto) 86.6 H Lymph % (Auto) 3.1 L [place] % (Auto) 5.1 Eos % (Auto) 1.9 Baso % (Auto) 2.3 H Absolute Neuts (auto) 20.8 H Absolute Lymphs (auto) 0.74 L Nucleated RBC % 0 Differential Comment Diff Path Review May foll Platelet Estimate MKD INC RBC Morphology NORM C+C PT INR Sodium 135 L Potassium 5.1 Chloride 104 Carbon Dioxide 20.0 L Anion Gap 11 BUN 49 H Creatinine 1.44 H Estim Creat Clear Calc 27.30 Est GFR (MDRD) Af Amer 61 Est GFR (MDRD) Non-Af 50 L BUN/Creatinine Ratio 34.0 H Glucose 97 Lactic Acid 1.9 Calcium 9.7 Total Bilirubin 0.80 Direct Bilirubin 0.22 AST 13 L ALT 12 L Alkaline Phosphatase 122 H Troponin I < 0.015 Total Protein 7.9 Albumin 3.7 Globulin 4.2 MRSA (PCR) 07/18/19 07/18/19 07/18/19 14:54 16:15 18:00 WBC RBC Hgb Hct MCV MCH MCHC RDW Std Deviation RDW Coeff of Alexey Plt Count MPV Immature Gran % (Auto) Neut % (Auto) Lymph % (Auto) [place] % (Auto) Eos % (Auto) Baso % (Auto) Absolute Neuts (auto) Absolute Lymphs (auto) Nucleated RBC % Differential Comment Diff Path Review Platelet Estimate RBC Morphology PT Cancelled 16.3 H INR Cancelled 1.3 Sodium Potassium Chloride Carbon Dioxide Anion Gap BUN Creatinine Estim Creat Clear Calc Est GFR (MDRD) Af Amer Est GFR (MDRD) Non-Af BUN/Creatinine Ratio Glucose Lactic Acid Calcium Total Bilirubin Direct Bilirubin AST ALT Alkaline Phosphatase Troponin I Total Protein Albumin Globulin MRSA (PCR) Negative 07/19/19 07/19/19 07/20/19 05:46 05:46 05:10 WBC 19.2 H 23.6 H RBC 5.27 4.86 Hgb 13.4 12.3 L Hct 44.4 39.8 L MCV 84.3 81.9 MCH 25.4 L 25.3 L MCHC 30.2 L 30.9 L RDW Std Deviation 52.6 H 50.4 H RDW Coeff of Alexey 17.9 H 17.4 H Plt Count 698 H 687 H MPV 10.0 10.3 Immature Gran % (Auto) 1.100 H 1.400 H Neut % (Auto) 96.4 H 95.4 H Lymph % (Auto) 1.3 L 0.9 L [place] % (Auto) 0.7 2.0 Eos % (Auto) 0.1 0.0 Baso % (Auto) 0.4 0.3 Absolute Neuts (auto) 18.5 H 22.5 H Absolute Lymphs (auto) 0.25 L 0.21 L Nucleated RBC % 0 0 Differential Comment Diff Path Review Platelet Estimate MOD INC RBC Morphology PT INR Sodium 138 Potassium 5.1 Chloride 110 H Carbon Dioxide 20.0 L Anion Gap 8 BUN 54 H Creatinine 1.51 H Estim Creat Clear Calc 24.13 Est GFR (MDRD) Af Amer 58 L Est GFR (MDRD) Non-Af 48 L BUN/Creatinine Ratio 35.8 H Glucose 228 H Lactic Acid Calcium 8.9 Total Bilirubin Direct Bilirubin AST ALT Alkaline Phosphatase Troponin I Total Protein Albumin Globulin MRSA (PCR) 07/20/19 05:10 WBC RBC Hgb Hct MCV MCH MCHC RDW Std Deviation RDW Coeff of Alexey Plt Count MPV Immature Gran % (Auto) Neut % (Auto) Lymph % (Auto) [place] % (Auto) Eos % (Auto) Baso % (Auto) Absolute Neuts (auto) Absolute Lymphs (auto) Nucleated RBC % Differential Comment Diff Path Review Platelet Estimate RBC Morphology PT INR Sodium 139 Potassium 4.5 Chloride 111 H Carbon Dioxide 21.0 Anion Gap 7 BUN 43 H Creatinine 1.15 Estim Creat Clear Calc 34.26 Est GFR (MDRD) Af Amer 79 Est GFR (MDRD) Non-Af 65 BUN/Creatinine Ratio 37.4 H Glucose 167 H Lactic Acid Calcium 8.3 L Total Bilirubin Direct Bilirubin AST ALT Alkaline Phosphatase Troponin I Total Protein Albumin Globulin MRSA (PCR) Microbiology 03/20/20 19:40 Mucosa - Nasopharyngeal Respiratory Panel (PCR) - Final 07/19/19 06:10 Urine, Clean Catch Streptococcus pneumoniae Antigen (M - Final 07/19/19 06:10 Urine, Clean Catch Legionella Antigen - Final Medical Necessity - Tobacco Use Smoking Status: Former smoker Tobacco Use: Non-smoker Assessment/Plan All Active Problems (Last Reviewed 05/19/19 @ 09:49 by Rosie Perea, BUNDLE SORTER-C) Tracheostomy present (Acute) Vocal cord cancer (Resolved) Tracheostomy complication (Acute) Healthcare-associated pneumonia (Acute) Altered mental status (Acute) Hypoxia (Acute) Severe sepsis (Acute) Pneumonia (Acute) Sepsis (Acute) JULIANA (acute kidney injury) (Resolved) Elevated LFTs (Resolved) Foreign body in esophagus (Resolved) Neoplasm of unspecified behavior of bone, soft tissue, 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 Wean systemic steroids 2. Bolus as necessary for hypotension 3. Continue empiric antibiotics for now 4. Okay to discontinue vancomycin given negative MRSA swab 5. Keep oxygen saturations 90 to 94% 6. Discontinue coronavirus precautions 7. Likely okay to transfer from the intensive care unit from my perspective IMPRESSIONS: 1. Severe sepsis secondary to probable aspiration pneumonia secondary to p.o. intake with dysphagia Patient has had multiple swallow studies in the past that have shown silent aspiration. Patient currently receiving radiation therapy and has had extensive neck issues in the past. Patient's x-ray shows a left lower lobe evolving infiltrate. Clinical suspicion for an aspiration event leading to current symptomatology. Patient with rapid improvement over the last 24 hours. This would be unlikely with coronavirus. Patient may have a repeat chest x-ray to evaluate left lower lobe, but patient has been able to be weaned to room air. Patient does have lower blood pressures at baseline. 2. Stage II COPD/chronic hypoxic respiratory failure Patient's last pulmonary function tests were a year ago. Increased oxygen demand was likely secondary to decreased ability to handle metabolic demand as patient is saturating well on room air at rest. Wean systemic steroids. Likely transition to prednisone tomorrow. Continue with bronchodilators. 3. Multiple cancers/secondary polycythemia/GERD/esophageal strictures/dysphasia/severe malnutrition Complicates care, management, recovery and prognosis. Patient's tube feeds meet metabolic demands. Unclear if these are being performed at home. Patient should be strict n.p.o. Likely not necessary to be evaluated by speech given previous work-ups. Okay to administer Pepcid by G-tube. No signs or symptoms of GI bleed. Inpatient E&M: 00906 [facility] L3
[2019-07-20] MEDS: Ipratropium/Albuterol Sulfate 3 ML AMPUL.NEB INHALATION ×3 (07:34→20:14)
[2019-07-20] MEDS: Jevity 1.5. 1,000 ML Bottle 240 ML GT ×3 (08:21→16:07)
--- NOTE | 2019-07-20 09:09 | PN_ITS ---
Patient Problems: Active and Suspected Problems (Last Reviewed 05/19/19 @ 09:49 by ZAN Smith) Healthcare-associated pneumonia (Acute) Altered mental status (Acute) Hypoxia (Acute) Severe sepsis (Acute) Pneumonia (Acute) Sepsis (Acute) Subjective: Patient seen and examined. He is looking more alert today. He still admits to mild cough but denies any chills or shortness of breath. He did complain of minimal pain at the PEG tube site. He denies any nausea vomiting or diarrhea. Review of systems otherwise negative. Labs and vitals reviewed. Vitals are stable. WBC is up to 23.6 today from 19.2. Platelets are 687. Vitals/I&O's: Vital Signs Temp Pulse Resp BP Pulse Ox 97.9 F 68 18 91/54 L 97 07/20/19 04:00 07/20/19 06:00 07/20/19 06:00 07/20/19 06:00 07/20/19 06:00 Oxygen Flow Rate (L/min) 2 Oxygen Delivery Method Room Air Weight: 102 lb 8.239 oz Body Mass Index (BMI) 13.7 Intake and Output for Last 24 Hours 07/18/19 07/19/19 07/20/19 23:59 23:59 23:59 Intake Total 871.67 / 1171.67 2973.33 / 3093.33 230 / 230 Output Total 370 / 520 575 / 575 Balance 871.67 / 1171.67 2603.33 / 2573.33 -345 / -345 General: Alert, Oriented x3, Cooperative,- very frail and cachectic HEENT: Atraumatic, PERRLA, EOMI, Normocephalic Oral: Dry Mucosa Neck: Supple, No JVD, Negative Carotid Bruits Lungs: - - diminished breath sounds bibasally, no wheezes or crackles. On room air. Cardiovascular: Regular rate, Regular Rhythm, Normal S1, Normal S2, No murmurs Abdomen: Bowel Sounds Present, Soft, minimal tenderness, Non-Distended, No Hepato-splenomegaly, - - PEG tube in place Extremities: No clubbing, No cyanosis, No edema, Capillary Refill Less than 3 Seconds Skin: - - has redness of lower lips and chin area- is chronic from radiation hall Musculoskeletal: No Tenderness to Palpation of Joints or Extremities Lymphatic: No Cervical, Supraclavicular, or Inguinal Adenopathy Neurological: Cranial nerves II-XII grossly intact Psych/Mental Status: Normal Affect, Appropriate, Alert and oriented to time, place, person, mood and affect Microbiology Past 72 Hours 07/18/19 19:40 Mucosa - Nasopharyngeal Respiratory Panel (PCR) - Final 07/19/19 06:10 Urine, Clean Catch Streptococcus pneumoniae Antigen (M - Final 07/19/19 06:10 Urine, Clean Catch Legionella Antigen - Final Laboratory Results 07/20/19 05:10: WBC 23.6 H, RBC 4.86, Hgb 12.3 L, Hct 39.8 L, MCV 81.9, MCH 25.3 L, MCHC 30.9 L, RDW Std Deviation 50.4 H, RDW Coeff of Alexey 17.4 H, Plt Count 687 H, MPV 10.3, Immature Gran % (Auto) 1.400 H, Neut % (Auto) 95.4 H, Lymph % (Auto) 0.9 L, [place] % (Auto) 2.0, Eos % (Auto) 0.0, Baso % (Auto) 0.3, Absolute Neuts (auto) 22.5 H, Absolute Lymphs (auto) 0.21 L, Nucleated RBC % 0 07/20/19 05:10: Sodium 139, Potassium 4.5, Chloride 111 H, Carbon Dioxide 21.0, Anion Gap 7, BUN 43 H, Creatinine 1.15, Estim Creat Clear Calc 34.26, Est GFR (MDRD) Af Amer 79, Est GFR (MDRD) Non-Af 65, BUN/Creatinine Ratio 37.4 H, Glucose 167 H, Calcium 8.3 L Diagnostic Data Chest X-Ray 07/18/19 14:26 IMPRESSION: There is progressive infiltration of the left lower superimposed on scarring. Electronically Signed: Jr Desai, at 15:12 EDT , Service support , Current Medications Acetaminophen (Tylenol Liquid) 650 mg GT Q6H PRN PRN PRN Reason: PAIN 1-10/10/FEVER >100 F Albuterol/Ipratropium (Duoneb) 3 ml INHALATION Q4HWA.RT INDU Last Admin: 07/20/19 07:34 Dose: 3 ml Documented by: Allopurinol (Zyloprim) 300 mg GT DAILYCM [facility] Last Admin: 07/19/19 05:01 Dose: 300 mg Documented by: Aspirin (Aspirin, Baby) 81 mg GT DAILYCM [facility] Last Admin: 07/19/19 10:02 Dose: 81 mg Documented by: Bisacodyl (Dulcolax) 5 mg PO DAILY PRN PRN PRN Reason: Constipation Enoxaparin Sodium (Lovenox) 30 mg SC DAILY [facility] Last Admin: 07/19/19 10:02 Dose: 30 mg Documented by: Enteral Nutritional Formula (Jevity 1.5) 240 ml GT 1600,1900 [facility] Last Admin: 07/19/19 18:53 Dose: Not Given Documented by: Enteral Nutritional Formula (Jevity 1.5) 240 ml GT 0700,1000,1300 [facility] Last Admin: 07/20/19 08:21 Dose: 240 ml Documented by: Famotidine (Pepcid) 20 mg GT QHS [facility] Last Admin: 07/19/19 21:17 Dose: 20 mg Documented by: Gabapentin (Neurontin) 300 mg GT BIDCM [facility] Last Admin: 07/19/19 16:58 Dose: 300 mg Documented by: Guaifenesin/Codeine Phosphate (Robitussin Ac) 5 ml GT Q6H PRN PRN PRN Reason: COUGH Sodium Chloride () 500 mls @ 999 mls/hr IV .Q31M ONE Last Infusion: 07/18/19 15:23 Dose: Infused Documented by: Piperacillin Sod/Tazobactam (Sod 3.375 gm/ Sodium Chloride) 50 mls @ 12.5 mls/hr IV Q8 [facility] Last Admin: 07/20/19 05:14 Dose: 12.5 mls/hr Documented by: Levothyroxine Sodium (Synthroid) 50 mcg GT DAILY@0600 [facility] Last Admin: 07/20/19 05:16 Dose: 50 mcg Documented by: Methylprednisolone (Solu-Medrol) 40 mg IV Q12 [facility] Mirtazapine (Remeron) 7.5 mg GT QHS [facility] Last Admin: 07/19/19 21:17 Dose: 7.5 mg Documented by: Nystatin (Nystatin) 500,000 unit GT 4X/DAY [facility] Last Admin: 07/19/19 21:18 Dose: 500,000 unit Documented by: Ondansetron HCl (Zofran Odt) 4 mg GT Q8H PRN PRN PRN Reason: NAUSEA Sodium Chloride () 10 - 40 ml IV UD PRN PRN Reason: SALINE FLUSH Last Admin: 07/19/19 21:18 Dose: 40 ml Documented by: STROKE Vital Signs/Narrative: Vital Signs Pulse Resp BP Pulse Ox 07/20/19 06:00 68 18 91/54 L 97 Medical Necessity - Tobacco Use Smoking Status: Former smoker Tobacco Use: Non-smoker Assessment/Plan All Active Problems (Last Reviewed 05/19/19 @ 09:49 by Rosie Perea, DOROTEO-C) Tracheostomy present (Acute) Vocal cord cancer (Resolved) Tracheostomy complication (Acute) Healthcare-associated pneumonia (Acute) Altered mental status (Acute) Hypoxia (Acute) Severe sepsis (Acute) Pneumonia (Acute) Sepsis (Acute) JULIANA (acute kidney injury) (Resolved) Elevated LFTs (Resolved) Foreign body in esophagus (Resolved) Neoplasm of unspecified behavior of bone, soft tissue, and skin (Resolved) Osteomyelitis of finger of left hand (Resolved) Pneumonia (Resolved) 1. Sepsis due to community acquired pneumonia * WBC is up to 23.6 today, this could be due to effect of the IV solumedrol patient is taking. * patient is more alert today * on IV vancomycin and zosyn * SIRS criteria is 2/4(tachypnea and leucocytosis) * blood cultures pending. urine for Strep and Legionella negative * respiratory panel negative * critical care on board * 2. Acute hypoxic respiratory failure due to pneumonia * now on room air. Breathing treatments with bronchodilators. * On antibiotics as under 1. * on IV solumedrol * 3. Severe protein calorie malnutrition: BMI is 13. Has PEG tube in place. ON Jevity tube feeds. Nutrition on board. 4. 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 Tube feedings. 5. Hypothyroidism: On Synthroid. 6. History of bleeding peptic ulcer and GERD as well as esophageal strictures: On PPI 7. JULIANA: Creatinine is 1.15 today. 8. Thrombocytosis: platelets are 687 today. this is chronic. Will monitor DVT prophylaxis: Lovenox Inpatient E&M: [id number] [facility] L3
[2019-07-20] MEDS: Gabapentin 300 MG Capsule GT ×2 (12:26→16:07)
[2019-07-20] MEDS: Aspirin 81 MG TAB.CHEW GT (12:26)
[2019-07-20] MEDS: Allopurinol 300 MG Tablet GT (12:26)
[2019-07-20] MEDS: Enoxaparin 30 MG/0.3 ML Syringe SC (12:27)
[2019-07-20] MEDS: NYSTATIN 500,000 UNIT/5 ML UDC 500000 UNIT GT ×2 (12:27→17:40)
[2019-07-20] MEDS: Famotidine 20 MG Tablet GT (21:43)
[2019-07-20] MEDS: Mirtazapine 15 MG Tablet 7.5 MG GT (21:44)
[2019-07-21] VITALS (13 sets, daily range): BP systolic 91–107; BP diastolic 50–64; PULSE 69–101; RESP 16–20; TEMP 36.6–36.9; O2SAT 92–96
[2019-07-21 05:47] LABS: Absolute Lymphocyte Count 0.14 X10^3/uL (0.83-4.51); Absolute Neutrophil Count 21.8 X10^3/uL (2.0-7.7); Basophil# 0.03 X10^3/uL; Basophil% 0.1 % (0-1); Eosinophil# 0.01 X10^3/uL; Hematocrit 45.2 % (40-54); Hemoglobin 13.6 g/dL (13.0-16.5); Lymphocyte # 0.14 X10^3/ul (4.0); Lymphocyte % 0.6 % (19-41); Mean Corp Hgb Conc 30.1 g/dL (32-36); Mean Corpuscular Hgb 25.1 pg (27.0-32.0); Mean Corpuscular Volume 83.4 fL (80-94); Monocyte# 0.33 X10^3/uL; Monocyte% 1.5 % (0-10); NRBC Flagged by Analyzer 0 % (0-5); Neutrophil % 96.2 % (47-70); POSITIVE COUNT YES; POSITIVE DIFFERENTIAL YES; RBC Distribution Width CV 17.8 % (11.6-14.6); RBC Distribution Width SD 51.9 fl (35.1-43.9); Red Blood Count 5.42 M/mm3 (4.6-6.2); White Blood Count 22.7 K/mm3 (4.4-11.0)
[2019-07-21] MEDS: Levothyroxine 50 MCG Tablet GT (05:50)
[2019-07-21 06:15] LABS: Differential Indicated SCAN CRITERIA MET
[2019-07-21 06:18] LABS: Anion Gap 8 (5-15); BUN 39 mg/dL (7-18); BUN/Creat Ratio 36.4 RATIO (10-20); Calcium,Total 8.6 mg/dL (8.5-10.1); Chloride 112 mmol/L (98-107); Creatinine, Serum 1.07 mg/dL (0.70-1.30); EST Glomerular Filtration Rate 71 mL/min (>60); Est Glom Filt Rate - Afr Amer 86 mL/min (>60); Estimated Creatinine Clearance 39.27 ml/min; Glucose 127 mg/dL (74-106); Potassium 4.5 mmol/L (3.5-5.1); Sodium Level 140 mmol/L (136-145)
[2019-07-21 06:41] LABS: Platelet Estimate MKD INC (ADEQ)
[2019-07-21 06:43] LABS: Anisocytosis 1+; Hypochromasia RARE; Microcytosis 1+; Ovalocyte 1+
[2019-07-21 06:45] LABS: Platelet Count 812 K/mm3 (150-450)
[2019-07-21] MEDS: Ipratropium/Albuterol Sulfate 3 ML AMPUL.NEB INHALATION ×3 (07:14→20:03)
[2019-07-21] MEDS: Allopurinol 300 MG Tablet GT (09:10)
[2019-07-21] MEDS: Aspirin 81 MG TAB.CHEW GT (09:10)
[2019-07-21] MEDS: Enoxaparin 30 MG/0.3 ML Syringe SC (09:10)
[2019-07-21] MEDS: Gabapentin 300 MG Capsule GT ×2 (09:10→17:17)
--- NOTE | 2019-07-21 10:11 | PCM.PN.PUL ---
Patient Problems: Active and Suspected Problems (Last Reviewed 05/19/19 @ 09:49 by ZAN Smith) Healthcare-associated pneumonia (Acute) Altered mental status (Acute) Hypoxia (Acute) Severe sepsis (Acute) Pneumonia (Acute) Sepsis (Acute) Subjective: The patient was seen and examined at the bedside this morning. Events from the last 24 hours have been reviewed. The patient is currently afebrile, hemodynamically stable and maintaining appropriate oxygen saturations on room air. The patient is currently sitting in his bedside recliner and denies any specific respiratory related complaints. Objective: The patient's most recent lab work, culture data and imaging studies have all been personally reviewed. Infectious work-up has been negative to date. - Physical Exam Vitals/I&O's: Vital Signs Temp Pulse Resp BP Pulse Ox 98.0 F 79 16 91/57 L 96 07/21/19 09:24 07/21/19 09:24 07/21/19 09:24 07/21/19 09:24 07/21/19 09:24 Oxygen Flow Rate (L/min) 2 Oxygen Delivery Method Room Air Weight: 109 lb 5.588 oz Body Mass Index (BMI) 13.7 Intake and Output for Last 24 Hours 07/19/19 07/20/19 07/21/19 23:59 23:59 23:59 Intake Total 2973.33 / 3093.33 1164.17 / 1224.17 529.38 / 529.38 Output Total 370 / 520 575 / 575 250 / 250 Balance 2603.33 / 2573.33 589.17 / 649.17 279.38 / 279.38 General: Alert, Cooperative, No apparent distress HEENT: Atraumatic, Normocephalic Oral: No Gingival or Mucosal Lesions/ Ulcerations Neck: Supple, No Nodes, Trachea Midline Lungs: No rhonchi, No wheeze, No rales, Diminished Cardiovascular: Regular rate, Regular Rhythm, Normal S1, Normal S2, No murmurs Abdomen: Bowel Sounds Present, Soft, Non Tender, - - +PEG Extremities: No clubbing, No cyanosis, No edema Skin: - - No significant change from previous Musculoskeletal: No Tenderness to Palpation of Joints or Extremities Lymphatic: No Cervical, Supraclavicular, or Inguinal Adenopathy Neurological: Neuro grossly intact Psych/Mental Status: Normal Affect, Appropriate Labs (Last 48 Hours) 07/20/19 07/20/19 07/21/19 05:10 05:10 04:58 WBC 23.6 H 22.7 H RBC 4.86 5.42 Hgb 12.3 L 13.6 Hct 39.8 L 45.2 MCV 81.9 83.4 MCH 25.3 L 25.1 L MCHC 30.9 L 30.1 L RDW Std Deviation 50.4 H 51.9 H RDW Coeff of Alexey 17.4 H 17.8 H Plt Count 687 H 812 H* MPV 10.3 10.0 Immature Gran % (Auto) 1.400 H 1.600 H Neut % (Auto) 95.4 H 96.2 H Lymph % (Auto) 0.9 L 0.6 L Bradley % (Auto) 2.0 1.5 Eos % (Auto) 0.0 0.0 Baso % (Auto) 0.3 0.1 Absolute Neuts (auto) 22.5 H 21.8 H Absolute Lymphs (auto) 0.21 L 0.14 L Nucleated RBC % 0 0 Differential Comment Diff Path Review May foll Platelet Estimate MKD INC Hypochromasia RARE Anisocytosis 1+ Microcytosis 1+ Ovalocytes 1+ Sodium 139 Potassium 4.5 Chloride 111 H Carbon Dioxide 21.0 Anion Gap 7 BUN 43 H Creatinine 1.15 Estim Creat Clear Calc 34.26 Est GFR (MDRD) Af Amer 79 Est GFR (MDRD) Non-Af 65 BUN/Creatinine Ratio 37.4 H Glucose 167 H Calcium 8.3 L 07/21/19 04:58 WBC RBC Hgb Hct MCV MCH MCHC RDW Std Deviation RDW Coeff of Alexey Plt Count MPV Immature Gran % (Auto) Neut % (Auto) Lymph % (Auto) Bradley % (Auto) Eos % (Auto) Baso % (Auto) Absolute Neuts (auto) Absolute Lymphs (auto) Nucleated RBC % Differential Comment Diff Path Review Platelet Estimate Hypochromasia Anisocytosis Microcytosis Ovalocytes Sodium 140 Potassium 4.5 Chloride 112 H Carbon Dioxide 20.0 L Anion Gap 8 BUN 39 H Creatinine 1.07 Estim Creat Clear Calc 39.27 Est GFR (MDRD) Af Amer 86 Est GFR (MDRD) Non-Af 71 BUN/Creatinine Ratio 36.4 H Glucose 127 H Calcium 8.6 Microbiology 07/18/19 14:24 Blood Culture (Wb) - Anticubital Right Blood Culture - Preliminary No growth in 48 hours. 07/18/19 19:40 Mucosa - Nasopharyngeal Respiratory Panel (PCR) - Final 07/19/19 06:10 Urine, Clean Catch Streptococcus pneumoniae Antigen (M - Final 07/19/19 06:10 Urine, Clean Catch Legionella Antigen - Final Clinical Impression(s) from Imaging Studies Chest X-Ray 07/18/19 14:26 IMPRESSION: There is progressive infiltration of the left lower superimposed on scarring. Electronically Signed: Jr Giselle, at 15:12 EDT , Service support , Current Medications Acetaminophen (Tylenol Liquid) 650 mg GT Q6H PRN PRN PRN Reason: PAIN 1-1010/FEVER >100 F Albuterol/Ipratropium (Duoneb) 3 ml INHALATION Q6HWA.RT [facility] Last Admin: 07/21/19 07:14 Dose: 3 ml Documented by: [facility]) [facility] Last Admin: 07/21/19 09:10 Dose: 300 mg Documented by: Aspirin (Aspirin, Baby) [facility] Last Admin: 07/21/19 09:10 Dose: 81 mg Documented by: Docusate Sodium (Colace Syrup) 100 mg PO DAILY PRN PRN PRN Reason: CONSTIPATION Enoxaparin Sodium (Lovenox) 30 mg SC DAILY [facility] Last Admin: 07/21/19 09:10 Dose: 30 mg Documented by: Enteral Nutritional Formula (Jevity 1.5) 240 ml GT 1600,1900 [facility] Last Admin: 07/20/19 18:03 Dose: Not Given Documented by: Enteral Nutritional Formula (Jevity 1.5) 240 ml GT 0700,1000,1300 [facility] Last Admin: 07/21/19 09:10 Dose: Not Given Documented by: Famotidine (Pepcid) 20 mg GT QHS [facility] Last Admin: 07/20/19 21:43 Dose: 20 mg Documented by: Gabapentin (Neurontin) 300 mg GT BIDCM [facility] Last Admin: 07/21/19 09:10 Dose: 300 mg Documented by: Guaifenesin/Codeine Phosphate (Robitussin Ac) 5 ml GT Q6H PRN PRN PRN Reason: COUGH Sodium Chloride () 500 mls @ 999 mls/hr IV .Q31M ONE Last Infusion: 07/18/19 15:23 Dose: Infused Documented by: Piperacillin Sod/Tazobactam (Sod 3.375 gm/ Sodium Chloride) 50 mls @ 12.5 mls/hr IV Q8 [facility] Last Admin: 07/21/19 05:50 Dose: 12.5 mls/hr Documented by: Sodium Chloride () 250 mls @ 15 mls/hr IV .[id number] PRN PRN Reason: Saline Flush Sodium Chloride () 250 mls @ 15 mls/hr IV .[id number] PRN PRN Reason: Additional IVPB Infusion Last Infusion: 07/21/19 01:42 Dose: 15 mls/hr Documented by: Levothyroxine Sodium (Synthroid) 50 mcg GT DAILY@0600 [facility] Last Admin: 07/21/19 05:50 Dose: 50 mcg Documented by: Methylprednisolone (Solu-Medrol) 40 mg IV Q12 [facility] Last Admin: 07/21/19 09:10 Dose: 40 mg Documented by: Mirtazapine (Remeron) 7.5 mg GT QHS [facility] Last Admin: 07/20/19 21:44 Dose: 7.5 mg Documented by: Nystatin (Nystatin) 500,000 unit GT 4X/DAY [facility] Last Admin: 07/21/19 09:10 Dose: Not Given Documented by: Ondansetron HCl (Zofran Odt) 4 mg GT Q8H PRN PRN PRN Reason: NAUSEA Sodium Chloride () 10 - 40 ml IV UD PRN PRN Reason: SALINE FLUSH Last Admin: 07/19/19 21:18 Dose: 40 ml Documented by: Medical Necessity - Tobacco Use Smoking Status: Former smoker Tobacco Use: Non-smoker Assessment/Plan All Active Problems (Last Reviewed 05/19/19 @ 09:49 by Rosie Perea PRODUCT SAFETY ASSOCIATE-C) Tracheostomy present (Acute) Vocal cord cancer (Resolved) Tracheostomy complication (Acute) Healthcare-associated pneumonia (Acute) Altered mental status (Acute) Hypoxia (Acute) Severe sepsis (Acute) Pneumonia (Acute) Sepsis (Acute) JULIANA (acute kidney injury) (Resolved) Elevated LFTs (Resolved) Foreign body in esophagus (Resolved) Neoplasm of unspecified behavior of bone, soft tissue, 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 Continue scheduled bronchodilators and steroids. 2. Continue empiric antimicrobials. Plan to complete a 7-day treatment course. 3. Encourage incentive spirometer use. 4. Nutrition via PEG tube. IMPRESSIONS: 1. Severe sepsis secondary to probable aspiration pneumonia secondary to p.o. intake with dysphagia Improving clinically. Plan to complete a 7-day treatment course of antibiotics. Continue nutritional support via PEG tube. Encourage incentive spirometer use and mobilize patient as tolerated. 2. Stage II COPD/chronic hypoxic respiratory failure Patient's last pulmonary function tests were a year ago. Increased oxygen demand was likely secondary to decreased ability to handle metabolic demand as patient is saturating well on room air at rest. 3. Multiple cancers/secondary polycythemia/GERD/esophageal strictures/dysphasia/severe malnutrition Complicates care, management, recovery and prognosis. Patient's tube feeds meet metabolic demands. Unclear if these are being performed at home. Patient should be strict n.p.o. This note was generated with [employer] dictation software. It may contain incorrect words, spelling, and punctuation that were not noted in checking the note before signing. Inpatient E&M: 83126 Subs Hosp L2
--- NOTE | 2019-07-21 10:42 | PCM.PN.HOSP ---
Patient Problems: Active and Suspected Problems (Last Reviewed 05/19/19 @ 09:49 by ZAN Smith) Healthcare-associated pneumonia (Acute) Altered mental status (Acute) Hypoxia (Acute) Severe sepsis (Acute) Pneumonia (Acute) Sepsis (Acute) Subjective: Patient seen and examined. He was lying comfortably in bed and had no complaints. He did say he vomited today and thought it was due to the tube feeding that he was receiving via PEG tube. Review of signs otherwise negative. Labs and vitals reviewed. And hemodynamically stable. WBC is 22.7 but it appears to be chronically elevated. Vitals/I&O's: Vital Signs Temp Pulse Resp BP Pulse Ox 98.0 F 79 16 91/57 L 96 07/21/19 09:24 07/21/19 09:24 07/21/19 09:24 07/21/19 09:24 07/21/19 09:24 Oxygen Flow Rate (L/min) 2 Oxygen Delivery Method Room Air Weight: 109 lb 5.588 oz Body Mass Index (BMI) 13.7 Intake and Output for Last 24 Hours 07/19/19 07/20/19 07/21/19 23:59 23:59 23:59 Intake Total 2973.33 / 3093.33 1164.17 / 1224.17 579.38 / 579.38 Output Total 370 / 520 575 / 575 250 / 250 Balance 2603.33 / 2573.33 589.17 / 649.17 329.38 / 329.38 General: Alert, Oriented x3, Cooperative,-frail and cachectic HEENT: Atraumatic, PERRLA, EOMI, Normocephalic Oral: Dry Mucosa Neck: Supple, No JVD, Negative Carotid Bruits Lungs: - - diminished breath sounds bibasally, no wheezes or crackles. On room air. Cardiovascular: Regular rate, Regular Rhythm, Normal S1, Normal S2, No murmurs Abdomen: Bowel Sounds Present, Soft, minimal tenderness, Non-Distended, No Hepato-splenomegaly, - - PEG tube in place Extremities: No clubbing, No cyanosis, No edema, Capillary Refill Less than 3 Seconds Skin: - - has redness of lower lips and chin area- is chronic from radiation hall Musculoskeletal: No Tenderness to Palpation of Joints or Extremities Lymphatic: No Cervical, Supraclavicular, or Inguinal Adenopathy Neurological: Cranial nerves II-XII grossly intact Psych/Mental Status: Normal Affect, Appropriate, Alert and oriented to time, place, person, mood and affect Microbiology Past 72 Hours 07/18/19 14:24 Blood Culture (Wb) - Anticubital Right Blood Culture - Preliminary No growth in 48 hours. 07/18/19 19:40 Mucosa - Nasopharyngeal Respiratory Panel (PCR) - Final 07/19/19 06:10 Urine, Clean Catch Streptococcus pneumoniae Antigen (M - Final 07/19/19 06:10 Urine, Clean Catch Legionella Antigen - Final Laboratory Results 07/21/19 04:58: WBC 22.7 H, RBC 5.42, Hgb 13.6, Hct 45.2, MCV 83.4, MCH 25.1 L, MCHC 30.1 L, RDW Std Deviation 51.9 H, RDW Coeff of Alexey 17.8 H, Plt Count 812 H*, MPV 10.0, Immature Gran % (Auto) 1.600 H, Neut % (Auto) 96.2 H, Lymph % (Auto) 0.6 L, Snyder % (Auto) 1.5, Eos % (Auto) 0.0, Baso % (Auto) 0.1, Absolute Neuts (auto) 21.8 H, Absolute Lymphs (auto) 0.14 L, Nucleated RBC % 0, Differential Comment , Diff Path Review May , Platelet Estimate MKD INC, Hypochromasia RARE, Anisocytosis 1+, Microcytosis 1+, Ovalocytes 1+ 07/21/19 04:58: Sodium 140, Potassium 4.5, Chloride 112 H, Carbon Dioxide 20.0 L, Anion Gap 8, BUN 39 H, Creatinine 1.07, Estim Creat Clear Calc 39.27, Est GFR (MDRD) Af Amer 86, Est GFR (MDRD) Non-Af 71, BUN/Creatinine Ratio 36.4 H, Glucose 127 H, Calcium 8.6 Diagnostic Data Chest X-Ray 07/18/19 14:26 IMPRESSION: There is progressive infiltration of the left lower superimposed on scarring. Electronically Signed: Jr Desai, at 15:12 EDT , Service support , Current Medications Acetaminophen (Tylenol Liquid) 650 mg GT Q6H PRN PRN PRN Reason: PAIN 1-02/06/FEVER >100 F Albuterol/Ipratropium (Duoneb) 3 ml INHALATION Q6HWA.RT [facility] Last Admin: 07/21/19 07:14 Dose: 3 ml Documented by: [facility] Last Admin: 07/21/19 09:10 Dose: 300 mg Documented by: Aspirin ([facility]in, Baby) [facility] Last Admin: 07/21/19 09:10 Dose: 81 mg Documented by: Docusate Sodium (Colace Syrup) 100 mg PO DAILY PRN PRN PRN Reason: CONSTIPATION Enoxaparin Sodium (Lovenox) 30 mg SC DAILY [facility] Last Admin: 07/21/19 09:10 Dose: 30 mg Documented by: Enteral Nutritional Formula (Jevity 1.5) 240 ml GT 1600,1900 [facility] Last Admin: 07/20/19 18:03 Dose: Not Given Documented by: Enteral Nutritional Formula (Jevity 1.5) 240 ml GT 0700,1000,1300 [facility] Last Admin: 07/21/19 09:10 Dose: Not Given Documented by: Famotidine (Pepcid) 20 mg GT QHS [facility] Last Admin: 07/20/19 21:43 Dose: 20 mg Documented by: [facility]in) [facility] Last Admin: 07/21/19 09:10 Dose: 300 mg Documented by: Guaifenesin/Codeine Phosphate (Robitussin Ac) 5 ml GT Q6H PRN PRN PRN Reason: COUGH Sodium Chloride () 500 mls @ 999 mls/hr IV .Q31M ONE Last Infusion: 07/18/19 15:23 Dose: Infused Documented by: Piperacillin Sod/Tazobactam (Sod 3.375 gm/ Sodium Chloride) 50 mls @ 12.5 mls/hr IV Q8 [facility] Last Infusion: 07/21/19 10:36 Dose: Infused Documented by: Sodium Chloride () 250 mls @ 15 mls/hr IV .[id number] PRN PRN Reason: Saline Flush Sodium Chloride () 250 mls @ 15 mls/hr IV .[id number] PRN PRN Reason: Additional IVPB Infusion Last Infusion: 07/21/19 01:42 Dose: 15 mls/hr Documented by: Levothyroxine Sodium (Synthroid) 50 mcg GT DAILY@0600 [facility] Last Admin: 07/21/19 05:50 Dose: 50 mcg Documented by: Methylprednisolone (Solu-Medrol) 40 mg IV Q12 [facility] Last Admin: 07/21/19 09:10 Dose: 40 mg Documented by: Mirtazapine (Remeron) 7.5 mg GT QHS [facility] Last Admin: 07/20/19 21:44 Dose: 7.5 mg Documented by: Nystatin (Nystatin) 500,000 unit GT 4X/DAY [facility] Last Admin: 07/21/19 09:10 Dose: Not Given Documented by: Ondansetron HCl (Zofran Odt) 4 mg GT Q8H PRN PRN PRN Reason: NAUSEA Sodium Chloride () 10 - 40 ml IV UD PRN PRN Reason: SALINE FLUSH Last Admin: 07/19/19 21:18 Dose: 40 ml Documented by: STROKE Vital Signs/Narrative: Vital Signs Temp Pulse Resp BP Pulse Ox 07/21/19 09:24 98.0 F 79 16 91/57 L 96 07/21/19 07:14 71 16 95 07/21/19 06:45 69 Medical Necessity - Tobacco Use Smoking Status: Former smoker Tobacco Use: Non-smoker Assessment/Plan All Active Problems (Last Reviewed 05/19/19 @ 09:49 by Rosie Perea HOTEL CUSTODIAN-C) Tracheostomy present (Acute) Vocal cord cancer (Resolved) Tracheostomy complication (Acute) Healthcare-associated pneumonia (Acute) Altered mental status (Acute) Hypoxia (Acute) Severe sepsis (Acute) Pneumonia (Acute) Sepsis (Acute) JULIANA (acute kidney injury) (Resolved) Elevated LFTs (Resolved) Foreign body in esophagus (Resolved) Neoplasm of unspecified behavior of bone, soft tissue, and skin (Resolved) Osteomyelitis of finger of left hand (Resolved) Pneumonia (Resolved) 1. Sepsis due to community acquired pneumonia WBC is up to 23.6 today, this could be due to effect of the IV solumedrol patient is taking. patient is more alert today on IV vancomycin and zosyn SIRS criteria is 2/4(tachypnea and leucocytosis) blood cultures pending. urine for Strep and Legionella negative respiratory panel negative critical care on board 2. Acute hypoxic respiratory failure due to pneumonia now on room air. Breathing treatments with bronchodilators. On antibiotics as under 1. on IV solumedrol 3. Severe protein calorie malnutrition: BMI is 13. Has PEG tube in place. ON Jevity tube feeds. Nutrition on board. 4. 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 Tube feedings. 5. Hypothyroidism: On Synthroid. 6. History of bleeding peptic ulcer and GERD as well as esophageal strictures: On PPI 7. JULIANA: Creatinine is 1.07 today. 8. Thrombocytosis: platelets are 812 today. this is chronic. Will monitor DVT prophylaxis: Lovenox Inpatient E&M: 89655 Subs Hosp L2
[2019-07-21] MEDS: Jevity 1.5. 1,000 ML Bottle 240 ML GT ×2 (13:22→17:17)
[2019-07-21 15:40] LABS: Pathologist Review Reviewed
[2019-07-21 15:43] LABS: Pathologist Review Reviewed
[2019-07-21] MEDS: NYSTATIN 500,000 UNIT/5 ML UDC 500000 UNIT GT (17:22)
[2019-07-21] MEDS: Famotidine 20 MG Tablet GT (22:09)
[2019-07-21] MEDS: Mirtazapine 15 MG Tablet 7.5 MG GT (22:09)
[2019-07-21] MEDS: 0.9% Saline Lock 10 ML Syringe IV (22:09)
[2019-07-22 03:15] VITALS: BP 108/60; PULSE 80; RESP 18; TEMP 36.4; O2SAT 94
[2019-07-22 03:40] VITALS: PULSE 72
[2019-07-22] MEDS: Levothyroxine 50 MCG Tablet GT (05:48)
[2019-07-22 06:19] LABS: Absolute Lymphocyte Count 0.15 X10^3/uL (0.83-4.51); Absolute Neutrophil Count 19.1 X10^3/uL (2.0-7.7); Basophil# 0.03 X10^3/uL; Basophil% 0.2 % (0-1); Eosinophil# 0.01 X10^3/uL; Eosinophils% 0.1 % (0-5); Hematocrit 44.7 % (40-54); Hemoglobin 13.3 g/dL (13.0-16.5); Lymphocyte # 0.15 X10^3/ul (4.0); Lymphocyte % 0.8 % (19-41); Mean Corp Hgb Conc 29.8 g/dL (32-36); Mean Corpuscular Hgb 24.4 pg (27.0-32.0); Mean Platelet Vol. 10.2 fl (6.2-12.0); Monocyte# 0.28 X10^3/uL; Monocyte% 1.4 % (0-10); NRBC Flagged by Analyzer 0 % (0-5); Neutrophil # 19.07 X10^3/uL (2.7-7.7); POSITIVE COUNT YES; POSITIVE DIFFERENTIAL YES; RBC Distribution Width CV 17.5 % (11.6-14.6); RBC Distribution Width SD 50.5 fl (35.1-43.9); Red Blood Count 5.45 M/mm3 (4.6-6.2); White Blood Count 19.8 K/mm3 (4.4-11.0)
[2019-07-22 06:21] LABS: Differential Indicated SCAN CRITERIA MET; Platelet Count 769 K/mm3 (150-450)
[2019-07-22 06:36] LABS: Differential Comment SCANNED
[2019-07-22 06:37] LABS: Platelet Estimate MKD INC (ADEQ)
[2019-07-22 06:48] VITALS: PULSE 73; PULSE 75; RESP 18; O2SAT 95
[2019-07-22] MEDS: Ipratropium/Albuterol Sulfate 3 ML AMPUL.NEB INHALATION (06:48)
[2019-07-22 06:57] LABS: Anion Gap 6 (5-15); BUN 30 mg/dL (7-18); BUN/Creat Ratio 31.5 RATIO (10-20); Calcium,Total 8.5 mg/dL (8.5-10.1); Chloride 115 mmol/L (98-107); Creatinine, Serum 0.95 mg/dL (0.70-1.30); EST Glomerular Filtration Rate 81 mL/min (>60); Est Glom Filt Rate - Afr Amer 98 mL/min (>60); Estimated Creatinine Clearance 42.99 ml/min; Glucose 122 mg/dL (74-106); Potassium 4.3 mmol/L (3.5-5.1); Sodium Level 142 mmol/L (136-145)
[2019-07-22] MEDS: NYSTATIN 500,000 UNIT/5 ML UDC 500000 UNIT GT (08:49)
[2019-07-22] MEDS: Allopurinol 300 MG Tablet GT (08:49)
[2019-07-22] MEDS: Aspirin 81 MG TAB.CHEW GT (08:49)
[2019-07-22] MEDS: Gabapentin 300 MG Capsule GT (08:49)
[2019-07-22] MEDS: 0.9% Saline Lock 10 ML Syringe IV (08:53)
[2019-07-22 08:58] VITALS: BP 115/70; PULSE 84; RESP 18; TEMP 36.9; O2SAT 96
--- NOTE | 2019-07-22 09:59 | CASEMGMT ---
Per Dr. Ruffin, pt to discharge today. Call to pt's to discuss discharge plan and per , pt has no needs at discharge. declines HHC at this time. states no further concerns/needs at this time. states that their daughter is a nurse and she lives 'right across the street' and that she can help with anything, if needed. would like called when pt ready for dischcarge, Kaley RODRIGUEZ aware and voices understanding. Charisma RODRIGUEZ CM
--- NOTE | 2019-07-22 11:03 | DCINST_ITS ---
- Discharge Diagnoses Current Active Problems: Current Active and Chronic Problems (Last Reviewed 05/19/19 @ 09:49 by ZAN Smith) Healthcare-associated pneumonia (Acute) Altered mental status (Acute) Hypoxia (Acute) Severe sepsis (Acute) Pneumonia (Acute) Sepsis (Acute) You will use the following diet at home:: Other - strictly NPO. To use PEG tube Discharge Activity: Return to Normal Activity Weight Bearing Status: Weight bearing as tolerated Call your doctor if you observe: Fever of 101 or Higher, Shortness of breath, Dizziness, Fainting spells Instructions: What Is Pneumonia?, Sepsis Allergies/Adverse Reactions: Allergies doxycycline Adverse Reaction (Verified 07/15/19 15:40) PANCREATITIS Medications to take at Discharge Albuterol Inhaler [Ventolin Hfa] 2 puff INHALATION Q6H PRN PRN 01/02/14 Allopurinol [Zyloprim] 300 mg PO DAILY 09/23/17 Aspirin [Aspirin, Baby] 81 mg PO DAILY 05/03/18 Ondansetron [Ondansetron Odt] 4 mg PO Q8H PRN PRN 05/03/18 Fluticasone 110 Mcg [Flovent 110 Mcg] 1 puff INHALATION BID 01/30/19 Levothyroxine [Synthroid] 50 mcg PO DAILY #30 tab 02/17/19 Tiotropium Br/Olodaterol HCl [Stiolto Respimat Inhal [place]] 2 puff INHALATION DAILY #1 mist.inhal 02/17/19 Gabapentin [Neurontin] 300 mg GT BID 07/18/19 Jevity 1.5 240 ml GT 0700,1000,1300 07/18/19 Jevity 1.5 240 ml GT 1600,1900 07/18/19 Menthol/Lanolin/Calamine/Znox [Calmoseptine Ointment] 1 applic TOPICAL TID 07/18/19 Mineral Oil/Petrolatum,White [Eucerin] 1 applic TOPICAL QHS 07/18/19 Mirtazapine [Remeron] 7.5 mg GT QHS 07/18/19 levoFLOXacin tablet [Levaquin tablet] 750 mg GT DAILY #3 tab 07/22/19 predniSONE tablet 40 mg GT DAILY #10 tab 07/22/19 The following prescriptions were given: levoFLOXacin tablet [Levaquin tablet] 750 mg GT DAILY #3 tab Transmission Status: Pending to [id number] predniSONE tablet 40 mg GT DAILY #10 tab Transmission Status: Pending to [facility] Primary Care Physician: Varun Wang MD [Primary Care Provider] - Please follow up with your Primary Care Physician in: one week Test Results: Test results from this visit will be discussed in further detail at your follow- up appointment, if applicable. Please Follow Up With: Hood Sorto DO When: 2-3 weeks Proposed Discharge Date: 07/22/19
--- NOTE | 2019-07-22 11:10 | PCM.DC.SUM ---
Discharge Date and Diagnosis Date of Admission: 07/18/19 Date of Discharge: 07/22/19 - Primary Discharge Diagnosis Active and Suspected Problems (Last Reviewed 05/19/19 @ 09:49 by ZAN Smith) community acquired pneumonia Altered mental status (Acute) Hypoxia (Acute) Severe sepsis (Acute) Pneumonia (Acute) Sepsis (Acute) hypokalemia JULIANA - Secondary Discharge Diagnosis Chronic Problems (Last Reviewed 05/19/19 @ 09:49 by ZAN Smith) Debility (Chronic) Squamous cell carcinoma of mouth (Chronic) Tobacco abuse (Chronic) GERD (gastroesophageal reflux disease) (Chronic) Throat cancer (Chronic) Esophageal stricture (Chronic) Hypothyroidism (Chronic) Polycythemia (Chronic) Stage 2 moderate COPD by GOLD classification (Chronic) FEV 1 52% long term current use of anticoagulant (Chronic) Gout (Chronic) gouty mass dorsal radial aspect PIP joint left index finger Chronic respiratory failure with hypoxia (Chronic) Iron deficiency anemia (Chronic) Hyperuricemia (Chronic) Former smoker (Chronic) Benign esophageal stricture (Chronic) Malnutrition of moderate degree (Chronic) Leukocytosis (Chronic) Dysphagia (Chronic) Hypersomnia (Chronic) COPD (chronic obstructive pulmonary disease) (Chronic) FEV1 52% History of peptic ulcer disease (Chronic) Hospital Course and Treatment Imaging Results: Diagnostic Data Chest X-Ray 07/18/19 14:26 IMPRESSION: There is progressive infiltration of the left lower superimposed on scarring. Electronically Signed: Jr Giselle, at 15:12 EDT , Service support , critical care- Dr Dobbins Operations: None Procedures: None Summary of Care Provided: The patient is a 79 year old M admitted through the ED on 07/18/2019 with a complaint of shortness of breath which have been going on for about 5 days. He had associated chills and a nonproductive cough as well as increasing shortness of breath. Patient is usually normal. Oral and usually is fed through a PEG tube on account of history of esophageal cancer with previous tracheostomy. He does however drink small amounts of water daily. Chest x-ray done showed evidence of pneumonia. He was admitted and managed for sepsis due to community-acquired pneumonia and acute hypoxic respiratory failure due to pneumonia. Patient was started on IV vancomycin and Zosyn. He was started on IV Solu-Medrol and breathing treatments with bronchodilators. He also had JULIANA which resolved with IV fluids. Patient was gradually successfully weaned off of oxygen. White cell count also trended down. Patient shortness of breath improved. Blood cultures were negative after 48 hours and urine for strep and Legionella were negative. Respiratory panel was also negative. Patient remained stable was eventually discharged home on 07/22/2019. Patient was counseled that he only had to be fed through the PEG tube and he should not take anything orally. He was discharged with a prescription for levofloxacin 50 mg daily for 3 days via PEG tube to make a total of 7 days of antibiotics. He was also given a prescription for prednisone tablets 40 mg daily to be crushed and administered via the PEG tube. He is to follow-up with his primary care doctor within 1 week. Patient seen and examined prior to discharge. He had no complaints and was ready to go home. Review of symptoms otherwise negative. Labs and vitals reviewed. Home medication reviewed and reconciled. o/e: Vital Signs Height 5 ft 11 in Weight: 106 lb 4.205 oz Weight in Pounds 106.3 lbs Pulse Ox 96 Temperature 98.4 F Pulse Rate 84 Respiratory Rate 18 Blood Pressure [BP] 85/54 Blood Pressure 115/70 Blood Pressure Position [BP] Semi-Fowlers Blood Pressure Position Semi-Fowlers [] General: Alert, Oriented x3, Cooperative,- very frail and cachectic HEENT: Atraumatic, PERRLA, EOMI, Normocephalic Oral: Dry Mucosa Neck: Supple, No JVD, Negative Carotid Bruits Lungs: - - diminished breath sounds bibasally, no wheezes or crackles. On room air. Cardiovascular: Regular rate, Regular Rhythm, Normal S1, Normal S2, No murmurs Abdomen: Bowel Sounds Present, Soft, minimal tenderness, Non-Distended, No Hepato-splenomegaly, - - PEG tube in place Extremities: No clubbing, No cyanosis, No edema, Capillary Refill Less than 3 Seconds Skin: - - redness of lower lips and chin area- is chronic from radiation hall Musculoskeletal: No Tenderness to Palpation of Joints or Extremities Lymphatic: No Cervical, Supraclavicular, or Inguinal Adenopathy Neurological: Cranial nerves II-XII grossly intact Psych/Mental Status: Normal Affect, Appropriate, Alert and oriented to time, place, person, mood and affect Plan is for DC home today as above. - Physical Exam Vitals/I&O's: Vital Signs Temp Pulse Resp BP Pulse Ox 98.4 F 84 18 115/70 96 07/22/19 08:58 07/22/19 08:58 07/22/19 08:58 07/22/19 08:58 07/22/19 08:58 Oxygen Flow Rate (L/min) 2 Oxygen Delivery Method Room Air Weight: 106 lb 4.205 oz Body Mass Index (BMI) 13.7 Intake and Output for Last 24 Hours 07/20/19 07/21/19 07/22/19 23:59 23:59 23:59 Intake Total 1164.17 / 1224.17 1416.13 / 1416.13 586.75 / 586.75 Output Total 575 / 575 250 / 250 225 / 225 Balance 589.17 / 649.17 1166.13 / 1166.13 361.75 / 361.75 Microbiology Past 72 Hours 07/18/19 14:24 Blood Culture (Wb) - Anticubital Right Blood Culture - Preliminary No growth in 48 hours. Laboratory Results 07/18/19 14:24: Diff Path Review Reviewed 07/21/19 04:58: Diff Path Review Reviewed 07/22/19 05:50: WBC 19.8 H, RBC 5.45, Hgb 13.3, Hct 44.7, MCV 82.0, MCH 24.4 L, MCHC 29.8 L, RDW Std Deviation 50.5 H, RDW Coeff of Alexey 17.5 H, Plt Count 769 H*, MPV 10.2, Immature Gran % (Auto) 1.500 H, Neut % (Auto) 96.0 H, Lymph % (Auto) 0.8 L, Sargent % (Auto) 1.4, Eos % (Auto) 0.1, Baso % (Auto) 0.2, Absolute Neuts (auto) 19.1 H, Absolute Lymphs (auto) 0.15 L, Nucleated RBC % 0, Differential Comment SCANNED, Diff Path Review May , Platelet Estimate MKD INC 07/22/19 05:50: Sodium 142, Potassium 4.3, Chloride 115 H, Carbon Dioxide 21.0, Anion Gap 6, BUN 30 H, Creatinine 0.95, Estim Creat Clear Calc 42.99, Est GFR (MDRD) Af Amer 98, Est GFR (MDRD) Non-Af 81, BUN/Creatinine Ratio 31.5 H, Glucose 122 H, Calcium 8.5 Current Medications Acetaminophen (Tylenol Liquid) 650 mg GT Q6H PRN PRN PRN Reason: PAIN 1-10/10/FEVER >100 F Albuterol/Ipratropium (Duoneb) 3 ml INHALATION Q6HWA.RT [facility] Last Admin: 07/22/19 06:48 Dose: 3 ml Documented by: [facility] Admin: 07/22/19 08:49 Dose: 300 mg Documented by: Aspirin ([facility]spirin, Baby) [facility] Last Admin: 07/22/19 08:49 Dose: 81 mg Documented by: Docusate Sodium (Colace Syrup) 100 mg PO DAILY PRN PRN PRN Reason: CONSTIPATION Enoxaparin Sodium (Lovenox) 30 mg SC DAILY [facility] Last Admin: 07/22/19 08:49 Dose: Not Given Documented by: Enteral Nutritional Formula (Jevity 1.5) 240 ml GT 1600,1900 [facility] Last Admin: 07/21/19 19:11 Dose: Not Given Documented by: Enteral Nutritional Formula (Jevity 1.5) 240 ml GT 0700,1000,1300 [facility] Last Admin: 07/22/19 08:49 Dose: Not Given Documented by: Famotidine (Pepcid) 20 mg GT QHS [facility] Last Admin: 07/21/19 22:09 Dose: 20 mg Documented by: Gabapentin (Neurontin) 300 mg GT BIDCM [facility] Last Admin: 07/22/19 08:49 Dose: 300 mg Documented by: Guaifenesin/Codeine Phosphate (Robitussin Ac) 5 ml GT Q6H PRN PRN PRN Reason: COUGH Sodium Chloride () 500 mls @ 999 mls/hr IV .Q31M ONE Last Infusion: 07/18/19 15:23 Dose: Infused Documented by: Piperacillin Sod/Tazobactam (Sod 3.375 gm/ Sodium Chloride) 50 mls @ 12.5 mls/hr IV Q8 [facility] Last Infusion: 07/22/19 10:37 Dose: Infused Documented by: Sodium Chloride () 250 mls @ 15 mls/hr IV .[id number] PRN PRN Reason: Saline Flush Sodium Chloride () 250 mls @ 15 mls/hr IV .[id number] PRN PRN Reason: Additional IVPB Infusion Last Infusion: 07/22/19 10:37 Dose: Infused Documented by: Levothyroxine Sodium (Synthroid) 50 mcg GT DAILY@0600 [facility] Last Admin: 07/22/19 05:48 Dose: 50 mcg Documented by: Methylprednisolone (Solu-Medrol) 40 mg IV Q12 [facility] Last Admin: 07/22/19 08:49 Dose: 40 mg Documented by: Mirtazapine (Remeron) 7.5 mg GT QHS [facility] Last Admin: 07/21/19 22:09 Dose: 7.5 mg Documented by: Nystatin (Nystatin) 500,000 unit GT 4X/DAY [facility] Last Admin: 07/22/19 08:49 Dose: 500,000 unit Documented by: Ondansetron HCl (Zofran Odt) 4 mg GT Q8H PRN PRN PRN Reason: NAUSEA Sodium Chloride () 10 - 40 ml IV UD PRN PRN Reason: SALINE FLUSH Last Admin: 07/22/19 08:53 Dose: 10 ml Documented by: Discharge Diet: - - fed via PEG tube Discharge Activity: Return to Normal Activity Weight Bearing Status: Weight bearing as tolerated Call your doctor if you observe: Fever of 101 or Higher, Shortness of breath, Dizziness, Fainting spells Home Medications: Medications to take at Discharge Albuterol Inhaler [Ventolin Hfa] 2 puff INHALATION Q6H PRN PRN 01/02/14 Allopurinol [Zyloprim] 300 mg PO DAILY 09/23/17 Aspirin [Aspirin, Baby] 81 mg PO DAILY 05/03/18 Ondansetron [Ondansetron Odt] 4 mg PO Q8H PRN PRN 05/03/18 Fluticasone 110 Mcg [Flovent 110 Mcg] 1 puff INHALATION BID 01/30/19 Levothyroxine [Synthroid] 50 mcg PO DAILY #30 tab 02/17/19 Tiotropium Br/Olodaterol HCl [Stiolto Respimat Inhal [place]] 2 puff INHALATION DAILY #1 mist.inhal 10/21/19 Gabapentin [Neurontin] 300 mg GT BID 07/18/19 Jevity 1.5 240 ml GT 0700,1000,1300 07/18/19 Jevity 1.5 240 ml GT 1600,1900 07/18/19 Menthol/Lanolin/Calamine/Znox [Calmoseptine Ointment] 1 applic TOPICAL TID 07/18/19 Mineral Oil/Petrolatum,White [Eucerin] 1 applic TOPICAL QHS 07/18/19 Mirtazapine [Remeron] 7.5 mg GT QHS 07/18/19 levoFLOXacin tablet [Levaquin tablet] 750 mg GT DAILY #3 tab 07/22/19 predniSONE tablet 40 mg GT DAILY #10 tab 07/22/19 Following Prescrptions Were Given to Patient: levoFLOXacin tablet [Levaquin tablet] 750 mg GT DAILY #3 tab Transmission Status: Received by [facility] predniSONE tablet 40 mg GT DAILY #10 tab Transmission Status: Received by [facility] Primary Care Physician: Varun Wang MD [Primary Care Provider] - Please follow up with your Primary Care Physician in: one week Please Follow Up With: Hood Sorto, DO When: 2-3 weeks Patient Instructions: What Is Pneumonia?, Sepsis Disposition: Home Minutes spent on discharge:: 45 Patient Condition:: Stable Medical Necessity - Tobacco Use Smoking Status: Former smoker Tobacco Use: Non-smoker Meaningful Use Info Meaningful Use Diagnoses (Choose all that apply): None applicable Inpatient E&M: 82562 Disch Hosp
--- NOTE | 2019-07-22 11:22 | PCA ---
Patient asked that we not schedule apts, stated that they will schedule their own.
--- NOTE | 2019-07-22 11:33 | PHA.DC.MC ---
Pharmacy Service has performed discharge medication reconciliation and counseling for this patient. 1. LEVOFLOXACIN 750MG NG DAILY X 3 DAYS 2. PREDNISONE 40MG NG DAILY X 10 DAYS The patient's discharge medication list was reviewed for discrepancies and discrepancies were resolved. Home Medications Albuterol Inhaler [Ventolin Hfa] 2 puff INHALATION Q6H PRN PRN 01/02/14 Allopurinol [Zyloprim] 300 mg PO DAILY 09/23/17 Aspirin [Aspirin, Baby] 81 mg PO DAILY 05/03/18 Ondansetron [Ondansetron Odt] 4 mg PO Q8H PRN PRN 05/03/18 Fluticasone 110 Mcg [Flovent 110 Mcg] 1 puff INHALATION BID 01/30/19 Levothyroxine [Synthroid] 50 mcg PO DAILY #30 tab 02/17/19 Tiotropium Br/Olodaterol HCl [Stiolto Respimat Inhal [place]] 2 puff INHALATION DAILY #1 mist.inhal 02/17/19 Gabapentin [Neurontin] 300 mg GT BID 07/18/19 Jevity 1.5 240 ml GT 0700,1000,1300 07/18/19 Jevity 1.5 240 ml GT 1600,1900 07/18/19 Menthol/Lanolin/Calamine/Znox [Calmoseptine Ointment] 1 applic TOPICAL TID 07/18/19 Mineral Oil/Petrolatum,White [Eucerin] 1 applic TOPICAL QHS 07/18/19 Mirtazapine [Remeron] 7.5 mg GT QHS 07/18/19 levoFLOXacin tablet [Levaquin tablet] 750 mg GT DAILY #3 tab 07/22/19 predniSONE tablet 40 mg GT DAILY #10 tab 07/22/19 The patient was counseled on the following discharge medications and changes in medications for homegoing were reviewed. The Reason for Use, instructions for use, and potential side effects were reviewed for all new medications. The patient's questions regarding all of their medications were answered. The patient was able to verbally demonstrate an understanding of their discharge medications.
[2019-07-22 13:34] LABS: Pathologist Review Reviewed
--- NOTE | 2019-07-23 14:46 | CASEMGMT ---
JENNIFER BENSON Discharge F/U Phone Call LACE: 13 Strata: 3 Discharge date: 07/22/2019 Call date: 07/23/2019 Call time: [phone] Duration: 2 minutes Admission dx: Sepsis, pna Pt's answered phone and preferred to answer questions for pt at this time. states pt is doing 'much better and is up and moving around' since discharge. states no questions/concerns with discharge instructions/medications at this time. states that she plans on making f/u appt's tomorrow. states no suggestions for [facility] at this time and states 'everything was great.' states no further questions/concerns/needs at this time. [place] JENNIFER BENSON
== END 2019-07-22 11:34 | disposition home or self-care (01) | DRG 871 ==
LOC: ED 16:11 → ICU 17:02 → PCU 19:03 → ICU 07-19 06:50 → PCU 07-20 14:38
PROVIDERS: Physician Assistant; Admitting Provider Internal Medicine; Emergency Provider Emergency Medicine; PCP Internal Medicine; Visit Provider Student in an Organized Health Care Education/Training Program
DX: A41.9 Sepsis, unspecified organism (principal); J18.9 Pneumonia, unspecified organism; E43 Unspecified severe protein-calorie malnutrition; J96.21 Acute and chronic respiratory failure with hypoxia; C15.9 Malignant neoplasm of esophagus, unspecified; J96.11 Chronic respiratory failure with hypoxia; Z68.1 Body mass index [BMI] 19.9 or less, adult; N17.9 Acute kidney failure, unspecified; R65.20 Severe sepsis without septic shock; J44.9 Chronic obstructive pulmonary disease, unspecified; Z93.1 Gastrostomy status; Z87.891 Personal history of nicotine dependence; Z99.81 Dependence on supplemental oxygen; Z92.3 Personal history of irradiation; E03.9 Hypothyroidism, unspecified; M10.9 Gout, unspecified; D50.9 Iron deficiency anemia, unspecified
CPT/HCPCS: 36415; 71045; 80048; 80076; 83605; 84484; 85025; 85610; 87040; 87449; 87633; 87641; 92526; 93005; 94640; 94667; 94668; 97110; 97162; 97166; 97530; 97535; 97802; 99251; 99285; 99406; J7030; J7040; J7050; A4216; G0463

== ENCOUNTER 2020-06-28 09:31 | Outpatient (RCR) | payer OTHER, SELFPAY ==
[2020-05-25 07:52] VITALS: BMI 13.6
== END 2020-06-28 23:59 ==
LOC: IMMUN 09:31
PROVIDERS: PCP Internal Medicine; Referring Provider Family Medicine; Visit Provider Family Medicine
DX: Z23 Encounter for immunization (principal)
CPT/HCPCS: 0011A; 0012A